=== PATIENT | female | born 1955 ===

== ENCOUNTER → 2019-12-28 14:25 | Outpatient (BNVA) | payer MEDICARE, MEDICAID, SELFPAY | PROVIDERS: PCP Student in an Organized Health Care Education/Training Program; Referring Provider Student in an Organized Health Care Education/Training Program; Visit Provider Orthopaedic Surgery | DX: Z47.1 Aftercare following joint replacement surgery (principal); Z96.651 Presence of right artificial knee joint | CPT/HCPCS: 99213 ==

== ENCOUNTER → 2020-02-28 12:52 | Outpatient (BNVA) | payer MEDICARE, MEDICAID, SELFPAY | PROVIDERS: PCP Nurse Practitioner Family; Visit Provider Nurse Practitioner Gerontology | DX: E11.42 Type 2 diabetes mellitus with diabetic polyneuropathy (principal); E66.09 Other obesity due to excess calories; E53.8 Deficiency of other specified B group vitamins; I10 Essential (primary) hypertension; E03.8 Other specified hypothyroidism; M85.80 Other specified disorders of bone density and structure, unspecified site; Z68.35 Body mass index [BMI] 35.0-35.9, adult | CPT/HCPCS: 82947; 99212 ==

== ENCOUNTER → 2020-02-29 14:48 | Outpatient (BNVA) | payer MEDICARE, MEDICAID, SELFPAY | PROVIDERS: PCP Nurse Practitioner Family; Visit Provider Obstetrics & Gynecology | DX: N95.1 Menopausal and female climacteric states (principal) | CPT/HCPCS: 99202 ==

== ENCOUNTER → 2020-03-14 15:40 | Outpatient (BNVA) | payer MEDICARE, MEDICAID, SELFPAY | PROVIDERS: PCP Nurse Practitioner Family; Visit Provider Obstetrics & Gynecology | DX: N95.1 Menopausal and female climacteric states (principal) | CPT/HCPCS: Q3014 ==

== ENCOUNTER → 2020-03-19 11:20 | Outpatient (BNVA) | payer MEDICARE, MEDICAID, SELFPAY | PROVIDERS: PCP Nurse Practitioner Family; Visit Provider Surgery | DX: L98.9 Disorder of the skin and subcutaneous tissue, unspecified (principal) | CPT/HCPCS: 99202 ==

== ENCOUNTER 2020-03-28 12:49 | Outpatient (REF) | payer MEDICARE, MEDICAID, SELFPAY ==
[2020-03-28 12:09] VITALS: BP 168/84; PULSE 90; RESP 16; TEMP 37; O2SAT 94; BMI 72.2
--- NOTE | 2020-03-28 20:11 | OP_ITS ---
SURGEON: Paco Hernandez MD INDICATIONS: The patient is a 65-year-old female with 2 skin lesions on the left chest wall that she wanted to remove. The one more in the superior was about 1.3 x 0.7 cm, flat and a little keratotic. The other one was just inferior to this, 0.7 x 0.3 cm in size, flat and pigmented. She understood the technique of excision under local anesthesia and she was aware of the risks, benefits, and alternatives. PREOPERATIVE DIAGNOSIS: Skin lesions x2 from the left chest wall. POSTOPERATIVE DIAGNOSIS: Skin lesions x2 from the left chest wall. PROCEDURE PERFORMED: Excision of skin lesions x2 from the left chest wall. ESTIMATED BLOOD LOSS: COMPLICATIONS: ANESTHESIA: ASSISTANTS: SPECIMENS: DESCRIPTION OF PROCEDURE: She was brought to the minor procedure room and placed in right lateral decubitus position. The area of the skin lesions was prepped and draped. Lidocaine 1% was used for local anesthesia. Elliptical incision was made in the skin surrounding the first lesion more superiorly. This incision was made using blade #15, it was carried down to full-thickness skin to excise the entire lesion and was sent as specimen. I closed this incision with interrupted nylon 3-0 sutures. I proceeded to then make elliptical incision around the second more inferior lesion as well using blade #15, it was carried down to full-thickness skin to the subcutaneous fat. It was excised sharply and was sent as specimen. The incision was closed with nylon 3-0 interrupted sutures as well. Dressings were applied. The patient tolerated procedure well. There were no complications noted. There was minimal blood loss. The patient is to be seen in the office for removal of sutures in about 2 to 3 weeks. MD LISSA Sher/ADAM / [phone]
== END 2020-03-28 12:50 | disposition home or self-care (01) ==
LOC: HO.MS 12:49
PROVIDERS: Visit Provider Surgery
PROC: (CPT 11402; principal; 2020-03-28 13:00)
DX: L98.9 Disorder of the skin and subcutaneous tissue, unspecified (principal); L82.1 Other seborrheic keratosis; I10 Essential (primary) hypertension; E11.42 Type 2 diabetes mellitus with diabetic polyneuropathy; E11.65 Type 2 diabetes mellitus with hyperglycemia; Z79.4 Long term (current) use of insulin; Z79.899 Other long term (current) drug therapy
CPT/HCPCS: 11402 ×2; 88305

== ENCOUNTER → 2020-04-09 14:45 | Outpatient (BNVA) | payer MEDICARE, MEDICAID, SELFPAY | PROVIDERS: Visit Provider Surgery | DX: L98.9 Disorder of the skin and subcutaneous tissue, unspecified (principal) | CPT/HCPCS: 99212 ==

== ENCOUNTER → 2020-04-24 11:20 | Outpatient (BNVA) | payer MEDICARE, MEDICAID, SELFPAY | PROVIDERS: Visit Provider Obstetrics & Gynecology | DX: Z76.89 Persons encountering health services in other specified circumstances (principal) | CPT/HCPCS: Q3014 ==

== ENCOUNTER → 2020-07-03 11:27 | Outpatient (BNVA) | payer MEDICARE, MEDICAID, SELFPAY | PROVIDERS: Visit Provider Obstetrics & Gynecology | CPT/HCPCS: Q3014 ==

== ENCOUNTER 2020-07-09 14:12 | Outpatient (REF) | payer MEDICARE, MEDICAID, SELFPAY ==
[2020-07-09 15:47] LABS: Alanine Aminotransferase 19 U/L (0-31); Albumin Level 4.2 g/dL (3.5-5.0); Alkaline Phosphatase 111 U/L (39-117); Anion Gap 13 (12-20); Aspartate Amino Transferase 17 U/L (5-31); Bilirubin Total 0.6 mg/dL (0.0-1.0); Blood Urea Nitrogen 11 mg/dL (9-16); Calcium 9.6 mg/dL (8.4-10.2); Carbon Dioxide 26 mmol/L (22-29); Chloride 105 mmol/L (96-108); Cholesterol 120 mg/dL; Estimated Glomerular Filt Rate > 60; Glucose Fasting 188 mg/dL (60-99); HDL Cholesterol 50 mg/dL; LDL Cholesterol Calculated 51 mg/dl; Potassium 4.4 mmol/L (3.3-5.1); Sodium 140 mmol/L (135-145); Total Protein 7.1 g/dL (6.5-8.0); Triglycerides 97 mg/dL
[2020-07-09 15:58] LABS: Microalbum/Creatinine Ratio Ur 40.2 ug/mg cr
[2020-07-09 16:08] LABS: Free T4 (Free Thyroxine) 1.18 ng/dL (0.71-1.85); Thyroid Stimulating Hormone 0.79 uIU/mL (0.32-4.0)
[2020-07-09 16:12] LABS: Vitamin B12 177 pg/mL (200-900)
== END 2020-07-09 14:13 | disposition home or self-care (01) ==
LOC: HO.LAB 14:12
PROVIDERS: PCP Nurse Practitioner Primary Care; Visit Provider Nurse Practitioner Gerontology
DX: E11.65 Type 2 diabetes mellitus with hyperglycemia (principal); E11.42 Type 2 diabetes mellitus with diabetic polyneuropathy; E03.8 Other specified hypothyroidism; E78.5 Hyperlipidemia, unspecified; E66.09 Other obesity due to excess calories; Z68.35 Body mass index [BMI] 35.0-35.9, adult; I10 Essential (primary) hypertension; Z79.4 Long term (current) use of insulin
CPT/HCPCS: 36415; 80053; 80061; 82043; 82607; 82947; 84439; 84443; 99212

== ENCOUNTER → 2020-08-06 10:29 | Outpatient (BNVA) | payer MEDICARE, MEDICAID, SELFPAY | PROVIDERS: PCP Nurse Practitioner Primary Care; Visit Provider Obstetrics & Gynecology | DX: N95.1 Menopausal and female climacteric states (principal) | CPT/HCPCS: Q3014 ==

== ENCOUNTER → 2020-08-14 11:48 | Outpatient (BNVA) | payer MEDICARE, MEDICAID, SELFPAY | PROVIDERS: PCP Nurse Practitioner Primary Care; Visit Provider Obstetrics & Gynecology | DX: N95.1 Menopausal and female climacteric states (principal) | CPT/HCPCS: Q3014 ==

== ENCOUNTER → 2020-08-22 07:42 | Outpatient (BNVA) | payer MEDICARE, MEDICAID, SELFPAY | PROVIDERS: PCP Nurse Practitioner Primary Care; Visit Provider Obstetrics & Gynecology | DX: N95.1 Menopausal and female climacteric states (principal) | CPT/HCPCS: Q3014 ==

== ENCOUNTER → 2020-08-22 07:42 | Outpatient (BNVA) | payer MEDICARE, MEDICAID, SELFPAY | PROVIDERS: PCP Nurse Practitioner Primary Care; Visit Provider Obstetrics & Gynecology | DX: N95.1 Menopausal and female climacteric states (principal) ==

== ENCOUNTER → 2020-10-08 12:37 | Outpatient (BNVA) | payer MEDICARE, MEDICAID, SELFPAY | PROVIDERS: PCP Nurse Practitioner Primary Care; Visit Provider Nurse Practitioner Gerontology | DX: E11.65 Type 2 diabetes mellitus with hyperglycemia (principal); E11.42 Type 2 diabetes mellitus with diabetic polyneuropathy; E03.8 Other specified hypothyroidism; E78.5 Hyperlipidemia, unspecified; E66.09 Other obesity due to excess calories; I10 Essential (primary) hypertension; Z68.35 Body mass index [BMI] 35.0-35.9, adult; Z79.4 Long term (current) use of insulin | CPT/HCPCS: 82947; Q3014 ==

== ENCOUNTER 2020-11-20 15:16 | Outpatient (REF) | payer MEDICARE, MEDICAID, SELFPAY ==
--- NOTE | ~2020-11-20 | US_ITS ---
EXAMINATION: US THYROID CLINICAL INFORMATION: Other specified hypothyroidism. COMPARISON: None TECHNIQUE: Linear transducer grayscale and color Doppler examination with attention to the region of the thyroid. FINDINGS: SIZE: Measurements of the thyroid lobes and nodules are given in sagittal, anteroposterior and transverse dimensions respectively. Right Thyroid Lobe: 3.5 x 1.1 x 1.5 cm, volume 3.0 mL. Parenchyma: The gland echotexture is heterogeneous. Thyroid vascularity is normal. Left Thyroid Lobe: 3.7 x 2.0 x 1.5 cm, volume 5.8 mL. Parenchyma: The gland echotexture is heterogeneous. Thyroid vascularity is normal. Isthmus: 0.4 cm in maximum AP dimension. Estimated total number of nodules greater than or equal to 1 cm: 0. 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 Location: Right mid. Size: 0.78 x 0.85 x 0.67 cm, volume 0.23 mL. Nodule characteristics: Composition: Solid/almost completely solid (2). Echogenicity: Isoechoic (1). Shape: Taller than wide (3). Margins: Smooth (0). Echogenic Foci: None (0). ACR TI-RADS total points: 6 ACR TI-RADS category: 4 2. Location: Right mid. Size: 0.56 x 0.4 x 0.45 cm, volume 0.05 mL. Nodule characteristics: Composition: Solid/almost completely solid (2). Echogenicity: Isoechoic (1). Shape: Not taller than wide (0). Margins: Smooth (0). Echogenic Foci: None (0). ACR TI-RADS total points: 3 ACR TI-RADS category: 3 NODES: No lymphadenopathy is seen in the tissue surrounding the thyroid gland. US/US thyroid IMPRESSION: There are bilateral normal-appearing cervical lymph nodes. ACR TI-RADS RECOMMENDATION REFERENCE: Small heterogeneous slightly hypervascular thyroid gland. Suspicious-appearing right thyroid nodule. Ultrasound follow-up in one, 2, 3 and 5 years recommended. * TR1 (0 point) and TR 2 (2 points): No FNA or follow up * TR3 (3 points): FNA if more than or equal to 2.5 cm in maximum dimension, followup ultrasound in 1, 3 and 5 years if 1.5 to 2.4 cm in maximum dimension. * TR4 (4-6 points): FNA if more than or equal to 1.5 cm in maximum dimension, followup ultrasound in 1, 2, 3 and 5 years if 1 to 1.4 cm in maximum dimension. * TR5 (more than or equal to 7 points): FNA if more than or equal to 1 cm in maximum dimension, followup ultrasound every year for 5 years if 0.5 to 0.9 cm in maximum dimension. * TR3, TR4 or TR5 nodules that are below the size threshold for follow up receive no follow up.
[2020-11-20 17:39] LABS: Thyroid Stimulating Hormone 0.98 uIU/mL (0.32-4.0)
== END 2020-11-20 15:17 | disposition home or self-care (01) ==
LOC: HO.US 15:16
PROVIDERS: Visit Provider Nurse Practitioner Gerontology
DX: E03.8 Other specified hypothyroidism (principal)
CPT/HCPCS: 36415; 76536; 84439; 84443

== ENCOUNTER 2021-02-10 22:50 | Emergency (ER) | payer MEDICARE, MEDICAID, SELFPAY ==
--- NOTE | ~2021-02-10 | XR_ITS ---
EXAMINATION: XR CHEST CLINICAL INFORMATION: Chest pain COMPARISON: 11/27/2017 TECHNIQUE: Frontal view of the chest was obtained. FINDINGS: Lung volumes are symmetric. No focal consolidation is seen. No evidence of pneumothorax, pleural effusion, or pulmonary edema. The cardiomediastinal contour is unremarkable. Degenerative changes are noted in the spine. XR/XR chest 1V IMPRESSION: No acute cardiopulmonary findings.
--- NOTE | 2021-02-10 22:58 | ECG_ITS ---
Test Reason : CHEST PAIN Blood Pressure : / mmHG Vent. Rate : 072 BPM Atrial Rate : 072 BPM P-R Int : 138 ms QRS Dur : 094 ms QT Int : 394 ms P-R-T Axes : 042 026 042 degrees QTc Int : 431 ms Normal sinus rhythm Normal ECG When compared with ECG of 29-JUN-2018 14:14, No significant change was found Referred By: Chloé Pitts Electronically Signed By:ARJUN SHAIKH MD
[2021-02-10 23:03] VITALS: BP 201/99; BP 220/105; PULSE 79; PULSE 90; RESP 18; TEMP 37.4; O2SAT 96; BMI 34.9
--- NOTE | 2021-02-10 23:12 | ED.CHESTPAIN ---
HPI - Chest Pain General Chief Complaint: Chest Pain Stated Complaint: chest pain/htn Time Seen by Provider: 02/10/21 22:58 Source: patient Mode of arrival: ambulatory History of Present Illness HPI narrative: Patient's history of diabetes hypertension hyperlipidemia obese with anxiety and recurrent chest pain and palpitation today around 17:00 patient will cooking notes palpitations history similar that in the past when she gets anxiety attacks on arrival patient's blood pressure was 201/99 pulse rate was 79. P denies any cough no fever no chills patient received aspirin and nitro without significant relief patient more local on the right side of chest also patient complaining of dizziness with this history of same in the past associated with nausea patient has not taken her evening dose of clonidine Related Data Home Medications Medication Instructions Recorded Confirmed aspirin 325 mg tablet,delayed 325 mg PO DAILY 02/28/20 10/08/20 release diclofenac sodium 75 mg 75 mg PO BID 02/28/20 10/08/20 tablet,delayed release mecobalamin (vitamin B12) 1,000 1,000 mcg PO DAILY 02/28/20 10/08/20 mcg chewable tablet metformin 500 mg tablet,extended See Rx Instructions PO BID 02/28/20 10/08/20 release 24 hr hydrochlorothiazide 50 mg tablet 50 mg PO DAILY 02/29/20 10/08/20 alcohol swabs pad TOPICAL 03/19/20 10/08/20 blood sugar diagnostic #10 ea 03/19/20 10/08/20 fluticasone propionate 110 0 mcg INHALATION 03/19/20 10/08/20 mcg/actuation HFA aerosol inhaler furosemide 20 mg tablet 20 mg PO QAM 03/19/20 10/08/20 hydroxyzine HCl 50 mg tablet 50 mg PO Q8H PRN 03/19/20 10/08/20 lisinopril 40 mg tablet 40 mg PO DAILY 03/19/20 10/08/20 multivitamin-ferrous 1 tab PO QAM 03/19/20 10/08/20 fumarate-folic acid 18 mg-400 mcg tablet rosuvastatin 20 mg tablet 20 mg PO BEDTIME 03/19/20 10/08/20 tramadol 50 mg tablet 50 mg PO TID PRN 03/19/20 10/08/20 metoprolol succinate 200 mg 200 mg PO DAILY 07/09/20 10/08/20 tablet,extended release 24 hr pantoprazole 40 mg tablet,delayed 40 mg PO QAM 07/09/20 10/08/20 release trazodone 150 mg tablet 150 mg PO tab 07/09/20 10/08/20 venlafaxine 150 mg 150 mg PO DAILY 07/09/20 10/08/20 capsule,extended release 24 hr cholecalciferol (vitamin D3) 50 50 mcg PO QAM 10/08/20 10/08/20 mcg (2,000 unit) tablet Previous Rx's Medication Instructions Recorded pen needle, diabetic 32 gauge x 1 ea SUBCUT DAILY 90 Days #90 ea 03/29/20 (BD Ultra-Fine Sasha Pen Needle) clonidine HCl 0.1 mg tablet 0.2 mg PO BEDTIME #60 tab 07/03/20 dexlansoprazole 30 mg 30 mg PO DAILY #30 cap 07/03/20 capsule,biphase delayed release acetaminophen 650 mg 650 mg PO Q8H PRN #90 tab 09/11/20 tablet,extended release empagliflozin 10 mg tablet 10 mg PO QAM #30 tab 10/08/20 (Jardiance) dulaglutide 4.5 mg/0.5 mL 4.5 mg (0.5 mL) SUBCUT QWEEK #2 ml 11/09/20 subcutaneous pen injector (Trulicity) insulin glargine 100 unit/mL (3 34 unit (0.34 mL) SUBCUT QPM #15 ml 11/23/20 mL) subcutaneous pen (Lantus Solostar U-100 Insulin) levothyroxine 75 mcg tablet 75 mcg PO QAM #30 tab 12/27/20 gabapentin 100 mg capsule 300 mg PO BEDTIME #90 cap 02/04/21 meclizine 25 mg tablet 25 mg PO DAILY PRN #20 tab 02/11/21 Allergies Allergy/AdvReac Type Severity Reaction Status Date / Time No Known Allergies Allergy Verified 10/08/20 13:24 [No Known Allergies*] Review of Systems Review of Systems: Yes all other systems are reviewed and are negative [facility] Past Medical History Medical History BMI 35.0-35.9,adult Cervical cancer Constipation Depression with anxiety Diabetes mellitus with hyperglycemia Essential hypertension Fibromyalgia GERD (gastroesophageal reflux disease) Meir's disease Hyperlipidemia LDL goal <100 Osteoarthritis of left knee Osteopenia Other obesity due to excess calories Other specified acquired hypothyroidism Skin lesion of chest wall Thyroid nodule Type 2 diabetes mellitus with diabetic polyneuropathy Vitamin B12 deficiency Surgical History History of arthroplasty of right knee History of bilateral carpal tunnel release History of esophagogastroduodenoscopy (EGD) Hx of arthroscopy of left knee Hx of bilateral oophorectomy Hx of colonoscopy Hx of foot surgery Hx of hysterectomy Family History Family History Father CVD (cardiovascular disease) Diabetes mellitus Stroke Mother Stroke Diabetes mellitus Breast cancer Hyperthyroidism Social History Social History Household Members: None Alcohol intake: never Patient Tobacco Use Status: Never used Tobacco Advance Directives: No 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al status: unemployed 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: Right Handed Physical Exam Vital Signs: Vital Signs: Last Vital Signs Temp 99.3 F 02/10/21 23:03 Pulse 72 02/10/21 23:55 Resp 18 02/10/21 23:03 BP 191/91 H 02/10/21 23:55 Pulse Ox 96 02/10/21 23:03 Body Mass Index 34.9 Appearance: Alert. Oriented X3. No acute distress. ENT: Pharynx normal. Oral Mucosa moist Neck: Normal inspection. Neck supple. CVS: Normal heart rate and rhythm. Pulses normal. Respiratory: No respiratory distress. Equal air entry bilateral, no wheezing/rales/rhonchi right chest wall tenderness Abdomen: Soft and nontender. Bowel sounds are present, no mass palpable, no CVA tenderness Skin: Skin warm and dry. Normal skin color. Normal skin turgor. Extremities: No lower extremity edema. No calf tenderness Neuro: Oriented X 3. No motor deficit. MDM - Chest Pain MDM Narrative Medical decision making narrative: Patient feeling much better now blood pressure improved will discharge patient home on meclizine S to follow with her PCP Lab Data Attestation: I reviewed the patient's lab results. Result diagrams: 02/10/21 23:37 02/10/21 23:36 Labs: Lab Results 02/10/21 02/10/21 02/10/21 Range/Units 23:34 23:36 23:37 WBC 12.3 H (4.8-10.8) X10*3/uL RBC 5.64 H (4.20-5.50) X10*6/uL Hgb 14.4 (12.0-16.0) g/dl Hct 44.7 (37.0-47.0) % MCV 79.3 L (80.0-98.0) fL MCH 25.5 L (27.0-33.0) pg MCHC 32.2 (31.0-35.0) g/dl RDW 13.2 (11.0-16.0) % Plt Count 283 (160-400) X10*3/uL MPV 9.6 (9.4-12.3) fL Immature Gran % (Auto) 0.4 (0.0-0.4) % Neut % (Auto) 61.8 (45-73) % Lymph % (Auto) 27.4 (20-40) % [place] % (Auto) 8.5 (2-11) % Eos % (Auto) 1.1 (0-4) % Baso % (Auto) 0.8 (0-2) % Lymph # (Auto) 3.4 (1.2-4.9) X10*3/uL [place] # (Auto) 1.1 (0.1-1.2) X10*3/uL Eos # (Auto) 0.1 (0.0-0.4) X10*3/uL Baso # (Auto) 0.1 (0.0-0.2) X10*3/uL Abs Immat Gran (auto) 0.05 H (0.00-0.03) X10*3/uL Absolute Neuts (auto) 7.6 (2.0-8.3) x10*3/uL Absolute Nucleated RBC 0.000 (0.0-0.012) X10*3/uL Nucleated RBC % (auto) 0.0 (0.0-0.2) /100WBC Sodium 140 (135-145) mmol/L Potassium 4.0 (3.3-5.1) mmol/L Chloride 105 (96-108) mmol/L Carbon Dioxide 26 (22-29) mmol/L Anion Gap 13 (12-20) BUN 13 (9-16) mg/dL Creatinine 1.09 (0.5-1.4) mg/dL Estim Creat Clear Calc 57.9 Estimated GFR 50 Random Glucose 170 H (60-115) mg/dL Calcium 9.7 (8.4-10.2) mg/dL Total Bilirubin 0.5 (0.0-1.0) mg/dL AST 19 (5-31) U/L ALT 22 (0-31) U/L Alkaline Phosphatase 111 (39-117) U/L Troponin I High Sens (<3.5-17.0) ng/L B-Natriuretic Peptide (<100) pg/mL Total Protein 7.0 (6.5-8.0) g/dL Albumin 4.0 (3.5-5.0) g/dL Urine Color Urine Appearance Urine pH (5.0-8.0) Ur Specific [employer] (1.005-1.025) Urine Protein (NEG-TRACE) MG/DL Urine Glucose (UA) (NEG) MG/DL Urine Ketones (NEG) MG/DL Urine Blood (NEG) Urine Nitrite (NEG) Ur Leukocyte Esterase (NEG) Urine RBC (0) /HPF Urine WBC (0-4) /HPF Ur Squamous Epith Cells /LPF Urine Bacteria /LPF Urine Mucus /LPF COVID-19 (MANINDER) Negative (Negative) COVID-19 Clin Com See Note 02/10/21 02/10/21 Range/Units 23:37 23:42 WBC (4.8-10.8) X10*3/uL RBC (4.20-5.50) X10*6/uL Hgb (12.0-16.0) g/dl Hct (37.0-47.0) % MCV (80.0-98.0) fL MCH (27.0-33.0) pg MCHC (31.0-35.0) g/dl RDW (11.0-16.0) % Plt Count (160-400) X10*3/uL MPV (9.4-12.3) fL Immature Gran % (Auto) (0.0-0.4) % Neut % (Auto) (45-73) % Lymph % (Auto) (20-40) % [place] % (Auto) (2-11) % Eos % (Auto) (0-4) % Baso % (Auto) (0-2) % Lymph # (Auto) (1.2-4.9) X10*3/uL [place] # (Auto) (0.1-1.2) X10*3/uL Eos # (Auto) (0.0-0.4) X10*3/uL Baso # (Auto) (0.0-0.2) X10*3/uL Abs Immat Gran (auto) (0.00-0.03) X10*3/uL Absolute Neuts (auto) (2.0-8.3) x10*3/uL Absolute Nucleated RBC (0.0-0.012) X10*3/uL Nucleated RBC % (auto) (0.0-0.2) /100WBC Sodium (135-145) mmol/L Potassium (3.3-5.1) mmol/L Chloride (96-108) mmol/L Carbon Dioxide (22-29) mmol/L Anion Gap (12-20) BUN (9-16) mg/dL Creatinine (0.5-1.4) mg/dL Estim Creat Clear Calc Estimated GFR Random Glucose (60-115) mg/dL Calcium (8.4-10.2) mg/dL Total Bilirubin (0.0-1.0) mg/dL AST (5-31) U/L ALT (0-31) U/L Alkaline Phosphatase (39-117) U/L Troponin I High Sens 7.4 (<3.5-17.0) ng/L B-Natriuretic Peptide 14 (<100) pg/mL Total Protein (6.5-8.0) g/dL Albumin (3.5-5.0) g/dL Urine Color STRAW Urine Appearance HAZY Urine pH 7.5 (5.0-8.0) Ur Specific [place] [employer] 1.015 (1.005-1.025) Urine Protein 1+ H (NEG-TRACE) MG/DL Urine Glucose (UA) 100 H (NEG) MG/DL Urine Ketones NEG (NEG) MG/DL Urine Blood NEG (NEG) Urine Nitrite NEG (NEG) Ur Leukocyte Esterase NEG (NEG) Urine RBC 0 (0) /HPF Urine WBC 0-2 (0-4) /HPF Ur Squamous Epith Cells 2+ /LPF Urine Bacteria TRACE /LPF Urine Mucus TRACE /LPF COVID-19 (MANINDER) (Negative) COVID-19 Clin Com ECG Data ECG #1: Attestation: I personally reviewed and interpreted this ECG as follows: Interpretation: Normal sinus rhythm with heart rate 72 beats per minute now intervals normal axis no acute ST wave changes impression normal EKG Discharge Plan Discharge Clinical Impression: Chest pain Qualifiers: Chest pain type: precordial pain Qualified Code(s): R07.2 - Precordial pain Benign paroxysmal positional vertigo Qualifiers: Laterality: right Qualified Code(s): H81.11 - Benign paroxysmal vertigo, right ear Patient Disposition: Home, Self-Care Instructions: Chest Pain (ED), Benign Paroxysmal Positional Vertigo (ED) Additional Instructions: Take blood pressure medicine daily on time Medication for dizziness as prescribed Follow-up with your PCP as needed if not better Continue your tramadol for pain Prescriptions: New meclizine 25 mg tablet 25 mg PO DAILY PRN (Reason: dizziness) Qty: 20 RF: 0 No Action pen needle, diabetic [BD Ultra-Fine Sasha Pen Needle] 32 gauge x 5/32 needle 1 ea subcut DAILY 90 Days Qty: 90 RF: 3 acetaminophen 650 mg tablet extended release 650 mg PO Q8H PRN (Reason: pain) Qty: 90 RF: 3 Trulicity 4.5 mg/0.5 mL pen injector 4.5 mg subcut QWEEK Qty: 2 RF: 4 Lantus Solostar U-100 Insulin 100 unit/mL (3 mL) insulin pen 34 unit subcut QPM Qty: 15 RF: 4 levothyroxine 75 mcg tablet 75 mcg PO QAM Qty: 30 RF: 1 gabapentin 100 mg capsule 300 mg PO BEDTIME Qty: 90 RF: 0 hydrochlorothiazide 50 mg tablet 50 mg PO DAILY RF: 0 tramadol 50 mg tablet 50 mg PO TID PRNRF: 0 rosuvastatin 20 mg tablet 20 mg PO BEDTIME RF: 0 Flovent HFA 110 mcg/actuation HFA aerosol inhaler 0 mcg inhalation RF: 0 lisinopril 40 mg tablet 40 mg PO DAILY RF: 0 furosemide 20 mg tablet 20 mg PO QAM RF: 0 Certavite-Antioxidant 18-400 mg-mcg tablet 1 tab PO QAM RF: 0 alcohol swabs Pads, Medicated topical RF: 0 (DME) FreeStyle Lite Strips Strip See Rx Instructions ea Not Applicable BID Qty: 10 RF: 0 hydroxyzine HCl 50 mg tablet 50 mg PO Q8H PRN (Reason: anxiety) RF: 0 trazodone 150 mg tablet 150 mg PO RF: 0 clonidine HCl 0.1 mg tablet 0.2 mg PO BEDTIME Qty: 60 RF: 11 dexlansoprazole 30 mg capsule,biphase delayed releas 30 mg PO DAILY Qty: 30 RF: 3 cholecalciferol (vitamin D3) 50 mcg (2,000 unit) tablet 50 mcg PO QAM RF: 0 Jardiance 10 mg tablet 10 mg PO QAM Qty: 30 RF: 4 mecobalamin (vitamin B12) 1,000 mcg tablet,chewable 1,000 mcg PO DAILY RF: 0 diclofenac sodium 75 mg tablet,delayed release (DR/EC) 75 mg PO BID RF: 0 aspirin 325 mg tablet,delayed release (DR/EC) 325 mg PO DAILY RF: 0 metformin 500 mg tablet extended release 24 hr See Rx Instructions PO BID RF: 0 pantoprazole 40 mg tablet,delayed release (DR/EC) 40 mg PO QAM RF: 0 venlafaxine 150 mg capsule,extended release 24hr 150 mg PO DAILY RF: 0 metoprolol succinate 200 mg tablet extended release 24 hr 200 mg PO DAILY RF: 0
[2021-02-10 23:44] LABS: Basophils Absolute Auto 0.1 X10*3/uL (0.0-0.2); Basophils Percent Auto 0.8 % (0-2); Eosinophils Absolute Auto 0.1 X10*3/uL (0.0-0.4); Eosinophils Percent Auto 1.1 % (0-4); Hematocrit 44.7 % (37.0-47.0); Hemoglobin 14.4 g/dl (12.0-16.0); Imm Gran Abs Auto 0.05 X10*3/uL (0.00-0.03); Imm Gran Pct Auto 0.4 % (0.0-0.4); Lymphocytes Absolute Auto 3.4 X10*3/uL (1.2-4.9); Lymphocytes Percent Auto 27.4 % (20-40); MANUAL DIFF FLAG NO; Mean Corpuscular HGB Conc 32.2 g/dl (31.0-35.0); Mean Corpuscular Hemoglobin 25.5 pg (27.0-33.0); Mean Corpuscular Volume 79.3 fL (80.0-98.0); Mean Platelet Volume 9.6 fL (9.4-12.3); Monocytes Absolute Auto 1.1 X10*3/uL (0.1-1.2); Monocytes Percent Auto 8.5 % (2-11); Neutrophils Absolute Auto 7.6 x10*3/uL (2.0-8.3); Neutrophils Percent Auto 61.8 % (45-73); Platelet Count 283 X10*3/uL (160-400); Red Blood Count 5.64 X10*6/uL (4.20-5.50); Red Cell Distribution Width 13.2 % (11.0-16.0); White Blood Count 12.3 X10*3/uL (4.8-10.8)
[2021-02-10 23:49] LABS: Appearance Urine HAZY; Color Urine STRAW; Glucose Urine UA 100 MG/DL (NEG); Leukocyte Esterase Urine NEG (NEG); Nitrite Urine NEG (NEG); PH 7.5 (5.0-8.0); Specific Gravity - Urine 1.015 (1.005-1.025); UACC Culture Trigger NO; Urine Blood NEG (NEG); Urine Ketones NEG (NEG); Urine Protein 1+ MG/DL (NEG-TRACE)
[2021-02-10 23:55] VITALS: BP 191/91; PULSE 72
[2021-02-10 23:55] LABS: Bacteria Urine TRACE /LPF; Mucus Urine TRACE /LPF; RBC Urine 0 /HPF (0); Squamous Epithelial Cell Urine 2+ /LPF; WBC Urine 0-2 /HPF (0-4)
[2021-02-10] MEDS: cloNIDine HCL 0.2 MG TABLET PO (23:55)
[2021-02-10] MEDS: ondansetron HCL 4 MG/2 ML VIAL IVPUSH (23:55)
[2021-02-10 23:57] LABS: COVID-19 Test Negative (Negative); IDNOW Serial# 9DD0AD1C
[2021-02-11 00:09] LABS: Alanine Aminotransferase 22 U/L (0-31); Alkaline Phosphatase 111 U/L (39-117); Anion Gap 13 (12-20); Aspartate Amino Transferase 19 U/L (5-31); Bilirubin Total 0.5 mg/dL (0.0-1.0); Blood Urea Nitrogen 13 mg/dL (9-16); Calcium 9.7 mg/dL (8.4-10.2); Carbon Dioxide 26 mmol/L (22-29); Chloride 105 mmol/L (96-108); Creatinine Clr Calc Pharmacy 57.9; Estimated Glomerular Filt Rate 50; Glucose Random 170 mg/dL (60-115); Sodium 140 mmol/L (135-145)
[2021-02-11 00:12] LABS: B Type Natriuretic Peptide 14 pg/mL (<100); Troponin-I High Sensitivity 7.4 ng/L (<3.5-17.0)
[2021-02-11] MEDS: Ketorolac Tromethamine 15 MG/ML VIAL 30 MG IVPUSH (00:15)
[2021-02-11] MEDS: Meclizine HCl 25 MG TABLET 50 MG PO (00:41)
== END 2021-02-11 01:13 | disposition home or self-care (01) ==
PROVIDERS: Student in an Organized Health Care Education/Training Program; Emergency Provider Internal Medicine
DX: R07.2 Precordial pain (principal); H81.11 Benign paroxysmal vertigo, right ear; Z20.822 Contact with and (suspected) exposure to COVID-19; R00.2 Palpitations; E11.9 Type 2 diabetes mellitus without complications; I10 Essential (primary) hypertension; E78.5 Hyperlipidemia, unspecified; F41.9 Anxiety disorder, unspecified; Z79.02 Long term (current) use of antithrombotics/antiplatelets; Z79.899 Other long term (current) drug therapy; Z79.82 Long term (current) use of aspirin; Z79.4 Long term (current) use of insulin
CPT/HCPCS: 36415; 71045; 80053; 81001; 83880; 84484; 85025; 87635; 93005; 96374; 96375; 99284; J1885; J2405

== ENCOUNTER 2021-03-01 08:36 | Outpatient (REF) | payer MEDICARE, MEDICAID, SELFPAY ==
--- NOTE | 2021-03-01 09:23 | P.BOP_ITS ---
Brief Operative Note Date of Service: 03/01/21 Pre-op diagnosis: Multinodular Thyroid Procedure: This is doctor Yi Massey. This is an ultrasound-guided fine-needle aspiration report. Date of Examination: 03/01/2021 Indication: Multinodular Thyroid Porcedure: Procedure was explained to the patient. Alternatives, the risk and benefits were discussed. Written consent was obtained. A time-out was also obtained. After sterile preparation, fine-needle aspiration of a right mid pole 1.2 cm thyroid nodule was performed using direct ultrasound guidance to confirm accurate needle placement. Three aspirations were made using 27 gauge needles. Samples were submitted for cytology. One pass was dedicated for [employer] Gene sequencing warp preparer testing. The patient tolerated the procedure well. Aftercare instructions were provided. Impression: Uncomplicated fine needle aspiration biopsy of a right mid pole 1.2 cm thyroid nodule under ultrasound guidance. Surgeon: Yi Massey, DO Was an Poultry Picking Machine Tender used for this Procedure?: No Estimated blood loss (mL): 0
[2021-03-01] MEDS: Lidocaine HCl 1 % MPF 5 ML VIAL 2 ML SUBCUT (12:00)
== END 2021-03-01 08:37 | disposition home or self-care (01) ==
LOC: HO.US 08:36
PROVIDERS: Visit Provider Internal Medicine
DX: E04.1 Nontoxic single thyroid nodule (principal)
CPT/HCPCS: 10005; 88172; 88173; 88177

== ENCOUNTER → 2021-03-11 08:05 | Outpatient (BNVA) | payer MEDICARE, MEDICAID, SELFPAY | PROVIDERS: Visit Provider Internal Medicine | DX: E04.2 Nontoxic multinodular goiter (principal); E55.9 Vitamin D deficiency, unspecified | CPT/HCPCS: Q3014 ==

== ENCOUNTER 2021-04-10 14:25 | Outpatient (REF) | payer MEDICARE, MEDICAID, SELFPAY ==
[2021-04-10 15:24] LABS: Phosphorus 3.3 mg/dL (2.7-4.5)
[2021-04-10 15:47] LABS: Free T4 (Free Thyroxine) 1.01 ng/dL (0.71-1.85); Vitamin D 25-OH Total 31.8 ng/mL (>30)
[2021-04-11 14:16] LABS: Calcium (PTHI) 9.1 mg/dL (8.6-10.4); PTHI 113 pg/mL (14-64)
== END 2021-04-10 14:26 | disposition home or self-care (01) ==
LOC: HO.LAB 14:25
PROVIDERS: Internal Medicine; Visit Provider Internal Medicine Medical Oncology
DX: E04.2 Nontoxic multinodular goiter (principal)
CPT/HCPCS: 36415; 82306; 83970; 84100; 84439; 84443

== ENCOUNTER → 2021-04-17 11:05 | Outpatient (BNVA) | payer OTHER, SELFPAY | PROVIDERS: Visit Provider Internal Medicine | DX: E04.2 Nontoxic multinodular goiter (principal); E55.9 Vitamin D deficiency, unspecified; E21.3 Hyperparathyroidism, unspecified | CPT/HCPCS: Q3014 ==

== ENCOUNTER 2021-05-14 14:27 | Outpatient (REF) | payer MEDICARE, SELFPAY ==
--- NOTE | ~2021-05-14 | MM_ITS ---
EXAMINATION: BONE DENSITOMETRY CLINICAL INDICATION: Hyperparathyroidism, unspecified. COMPARISON: Previous BD dated 06/17/2011 and baseline BD dated 05/24/2009. This is the patient's baseline examination for the forearm radius 33%. TECHNIQUE: Using a Go[employer]stant DXA System (software version: 13.1) manufactured by [employer], dual-energy x-ray absorptiometry was performed of the lumbar spine, left hip, and left forearm radius 33%. The images are of good technical quality. Summary results are attached. FINDINGS: AP SPINE L1-L4: Current: BMD 0.978 g/cm2, Z-score -0.9, T-score -1.7, osteopenia, 0.0% no change from previous, 4.4% increase from baseline (<5% change is not significant). Prior: BMD 0.978 g/cm2. Baseline: BMD 0.937 g/cm2. LEFT FEMUR, NECK: Current: BMD 0.850 g/cm2, Z-score -0.4, T-score -1.4, osteopenia. Prior: BMD 0.916 g/cm2. Baseline: BMD 0.971 g/cm2. LEFT FEMUR, TOTAL: Current: BMD 0.993 g/cm2, Z-score 0.6, T-score -0.1, normal, 2.3% decrease from previous, 8.8% decrease from baseline (<5% change is not significant). Prior: BMD 1.016 g/cm2. Baseline: BMD 1.089 g/cm2. LEFT FOREARM RADIUS 33%: BMD 0.809 g/cm2, Z-score 0.8, T-score -0.8, normal. Prior: Not previously measured. IDENTIFIED RISK FACTORS: Rheumatoid arthritis, hyperparathyroidism. Early menopause, secondary osteoporosis, hysterectomy, bilateral oophorectomy. HISTORY OF FRACTURE: None listed. MEDICATIONS: Calcium supplements or multivitamin, vitamin D. MM/XR DEXA appendicular skeleton IMPRESSION: 1. DIAGNOSIS: Osteopenia based on the lowest T-score value of -1.7 in the lumbar spine applying World Health Organization criteria. 2. 10-YEAR FRACTURE RISK PREDICTION, FRAX: Major osteoporotic fracture (clinical spine, forearm, hip or shoulder) 6.1%. Hip fracture 0.7%. 3. Treatment Recommendations: NOF guidelines recommend consideration for treatment in postmenopausal women and men age 50 and older presenting with the following: -A hip or vertebral (clinical or morphometric) fracture. -T-score less than or equal to -2.5 at the femoral neck or spine after appropriate evaluation to exclude secondary causes. -Low bone mass at the hip or spine and a 10-year fracture probability by FRAX of greater than or equal to 3% for hip fracture or greater than or equal to 20% for major osteoporotic fracture based on the [place] adapted WHO algorithm. 4. Other Recommendations: All treatment decisions require clinical judgment and consideration of individual patient factors, including patient preferences, comorbidities, previous drug use, risk factors not captured in the FRAX model (e.g. frailty, falls, vitamin D deficiency, increased bone turnover, interval significant decline in bone density) and possible under or overestimation of fracture risk by FRAX. Additional medical evaluation for secondary cause of low bone mineral density may be appropriate. FUTURE SCAN RECOMMENDATION: People with diagnosed cases of osteoporosis or at high risk for fracture should have regular bone mineral density tests. For patients eligible for Medicare, routine testing is allowed once every 2 years. The testing frequency can be increased to one year for patients who have rapidly progressing disease, those who are receiving or discontinuing medical therapy to restore bone mass, or have additional risk factors.
== END 2021-05-14 14:28 | disposition home or self-care (01) ==
LOC: HO.MAMMO 14:27
PROVIDERS: Visit Provider Internal Medicine
DX: Z13.820 Encounter for screening for osteoporosis (principal); E21.3 Hyperparathyroidism, unspecified; M85.80 Other specified disorders of bone density and structure, unspecified site; Z78.0 Asymptomatic menopausal state; Z79.899 Other long term (current) drug therapy
CPT/HCPCS: 77081

== ENCOUNTER 2021-05-16 15:36 | Outpatient (REF) | payer MEDICARE, SELFPAY ==
[2021-05-16 15:43] LABS: Total Volume 24 Hour Urine 1600 mL
[2021-05-16 16:07] LABS: Creatinine, 24Hr Urine 1.3 G/Day (1.0-2.0); Creatinine, mg/dL 83.42
[2021-05-20 17:01] LABS: Calcium, 24 Hr Urine 120 mg/24 h; Calcium/Creatinine Ratio 88 mg/g creat (30-275); Creatinine 24Hr Urine 1.36 g/24 h (0.50-2.15)
== END 2021-05-16 15:37 | disposition home or self-care (01) ==
LOC: HO.LNP 15:36
PROVIDERS: Visit Provider Internal Medicine
DX: E21.3 Hyperparathyroidism, unspecified (principal)
CPT/HCPCS: 82340; 82570

== ENCOUNTER → 2021-05-24 13:50 | Outpatient (BNVA) | payer OTHER, SELFPAY | PROVIDERS: PCP Nurse Practitioner Primary Care; Visit Provider Advanced Practice Midwife | DX: Z13.89 Encounter for screening for other disorder (principal) ==

== ENCOUNTER 2021-06-05 11:56 | Outpatient (REF) | payer OTHER, SELFPAY ==
[2021-06-05 14:02] LABS: Alanine Aminotransferase 24 U/L (0-31); Albumin Level 3.9 g/dL (3.5-5.0); Alkaline Phosphatase 116 U/L (39-117); Anion Gap 15 (12-20); Aspartate Amino Transferase 26 U/L (5-31); Bilirubin Total 0.8 mg/dL (0.0-1.0); Blood Urea Nitrogen 8 mg/dL (9-16); Calcium 9.5 mg/dL (8.4-10.2); Carbon Dioxide 24 mmol/L (22-29); Chloride 103 mmol/L (96-108); Estimated Glomerular Filt Rate 56; Free T4 (Free Thyroxine) 1.22 ng/dL (0.71-1.85); Glucose Random 186 mg/dL (60-115); Phosphorus 3.5 mg/dL (2.7-4.5); Potassium 4.7 mmol/L (3.3-5.1); Sodium 137 mmol/L (135-145); Thyroid Stimulating Hormone 3.81 uIU/mL (0.32-4.0); Total Protein 7.3 g/dL (6.5-8.0)
[2021-06-06 15:32] LABS: Vitamin D 25-OH Total 28.3 ng/mL (>30)
[2021-06-06 16:26] LABS: Calcium (PTHI) 9.6 mg/dL (8.6-10.4); PTHI 95 pg/mL (16-77)
== END 2021-06-05 11:57 | disposition home or self-care (01) ==
LOC: HO.LAB 11:56
PROVIDERS: PCP Nurse Practitioner Primary Care; Visit Provider Internal Medicine
DX: E04.2 Nontoxic multinodular goiter (principal); E21.3 Hyperparathyroidism, unspecified; E55.9 Vitamin D deficiency, unspecified; R60.0 Localized edema
CPT/HCPCS: 36415; 80053; 82306; 83970; 84100; 84439; 84443; 99212

== ENCOUNTER 2021-06-05 13:14 | Emergency (ER) | payer OTHER, SELFPAY ==
--- NOTE | ~2021-06-05 | US_ITS ---
EXAMINATION: US VENOUS ULTRASOUND WITH DOPPLER LOWER EXTREMITY, LEFT CLINICAL INFORMATION: Pain and swelling COMPARISON: None TECHNIQUE: Ultrasound of the deep veins is performed from the hip to the calf with compression sonography and color and pulse Doppler assessment. Spectral analysis with color-flow imaging is performed. FINDINGS: There is normal venous compression and respiratory variation and augmented flow. The visualized common femoral vein, superficial femoral vein, profunda femoral vein, popliteal vein, and the trifurcation region shows no evidence of deep venous thrombosis. There is no significant popliteal fossa cyst. If the patient's symptoms persist, followup ultrasound in 5 days 7 days might be of value to exclude proximal propagation from a non-visualized calf vein. US/US venous duplex LE LT IMPRESSION: No DVT demonstrated in the left lower extremity.
--- NOTE | ~2021-06-05 | XR_ITS ---
EXAMINATION: XR FOOT, LEFT CLINICAL INFORMATION: Pain COMPARISON: Previous x-ray August 2006 TECHNIQUE: AP, lateral, and oblique views of the left foot. FINDINGS: There is an old healed fracture of the distal fifth metatarsal shaft. No acute fracture or dislocation is seen. The joint spaces are normal. There are calcaneal spurs. XR/XR foot LT min 3V IMPRESSION: No acute fracture or dislocation. Calcaneal spurs.
[2021-06-05 13:29] VITALS: BP 157/85; PULSE 71; RESP 18; TEMP 36.2; O2SAT 97; BMI 35.2
--- NOTE | 2021-06-05 13:56 | ED.EXTPRO ---
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 Patient reports pain in entire leg but mainly in the left foot. No redness, warmth, fevers, chills. Seen at endocrine today for appt and reported symptoms so referred in to the ER for further evaluation. Patient reports she has some tingling over the bottom aspect of the foot. No weakness or sensation loss. She does have diabetic neuropathy and takes gabapentin. Also takes APAP, tramadol prn for chronic pain at home. Related Data Home Medications Medication Instructions Recorded Confirmed aspirin 325 mg tablet,delayed 325 mg PO DAILY 02/28/20 06/05/21 release diclofenac sodium 75 mg 75 mg PO BID 02/28/20 06/05/21 tablet,delayed release mecobalamin (vitamin B12) 1,000 1,000 mcg PO DAILY 02/28/20 06/05/21 mcg chewable tablet metformin 500 mg tablet,extended See Rx Instructions PO BID 02/28/20 06/05/21 release 24 hr hydrochlorothiazide 50 mg tablet 50 mg PO DAILY 02/29/20 06/05/21 alcohol swabs pad TOPICAL 03/19/20 06/05/21 blood sugar diagnostic #10 ea 03/19/20 06/05/21 fluticasone propionate 110 0 mcg INHALATION 03/19/20 06/05/21 mcg/actuation HFA aerosol inhaler furosemide 20 mg tablet 20 mg PO QAM 03/19/20 06/05/21 hydroxyzine HCl 50 mg tablet 50 mg PO Q8H PRN 03/19/20 06/05/21 lisinopril 40 mg tablet 40 mg PO DAILY 03/19/20 06/05/21 multivitamin-ferrous 1 tab PO QAM 03/19/20 06/05/21 fumarate-folic acid 18 mg-400 mcg tablet rosuvastatin 20 mg tablet 20 mg PO BEDTIME 03/19/20 06/05/21 tramadol 50 mg tablet 50 mg PO TID PRN 03/19/20 06/05/21 metoprolol succinate 200 mg 200 mg PO DAILY 07/09/20 06/05/21 tablet,extended release 24 hr pantoprazole 40 mg tablet,delayed 40 mg PO QAM 07/09/20 06/05/21 release trazodone 150 mg tablet 150 mg PO tab 07/09/20 06/05/21 venlafaxine 150 mg 150 mg PO DAILY 07/09/20 06/05/21 capsule,extended release 24 hr cholecalciferol (vitamin D3) 50 50 mcg PO QAM 10/08/20 06/05/21 mcg (2,000 unit) tablet lancets 33 gauge (OneTouch Delica #100 ea 04/17/21 06/05/21 Plus Lancet) dexlansoprazole 30 mg 30 mg PO DAILY 05/23/21 06/05/21 capsule,biphase delayed release (Dexilant) Previous Rx's Medication Instructions Recorded pen needle, diabetic 32 gauge x 1 ea SUBCUT DAILY 90 Days #90 ea 03/29/20 (BD Ultra-Fine Sasha Pen Needle) clonidine HCl 0.1 mg tablet 0.2 mg PO BEDTIME #60 tab 07/03/20 acetaminophen 650 mg 650 mg PO Q8H PRN #90 tab 09/11/20 tablet,extended release insulin glargine 100 unit/mL (3 34 unit (0.34 mL) SUBCUT QPM #15 ml 11/23/20 mL) subcutaneous pen (Lantus Solostar U-100 Insulin) meclizine 25 mg tablet 25 mg PO DAILY PRN #20 tab 02/11/21 empagliflozin 10 mg tablet 10 mg PO QAM #30 tab 02/19/21 (Jardiance) dulaglutide 4.5 mg/0.5 mL 4.5 mg (0.5 mL) SUBCUT QWEEK #2 ml 03/17/21 subcutaneous pen injector (Trulicity) levothyroxine 75 mcg tablet 75 mcg PO QAM #30 tab 04/15/21 gabapentin 100 mg capsule 300 mg PO BEDTIME #90 cap 05/20/21 cyclobenzaprine 10 mg tablet 10 mg PO TID PRN #10 tab 06/05/21 Allergies Allergy/AdvReac Type Severity Reaction Status Date / Time No Known Allergies Allergy Verified 06/05/21 13:01 [No Known Allergies*] Review of Systems Review of Systems: Yes all other systems are reviewed and are negative Constitutional: Constitutional: Reports no additional constitutional complaints, Denies body ache(s), Denies chills, Denies fever(s), Denies headache(s) and Denies weakness Eyes: Eyes: Reports no additional eye complaints and Denies change in vision ENT: Reports system reviewed and no additional complaints, except as documented, Denies dizziness, Denies headache(s), Denies nasal congestion, Denies nasal discharge and Denies neck pain Cardiovascular: Cardiovascular: Reports no additional cardiovascular complaints, Denies chest pain, Reports leg edema and Denies dyspnea Respiratory: Respiratory: Reports no additional respiratory complaints, Denies cough and Denies dyspnea Gastrointestinal: Gastrointestinal: Reports no additional gastrointestinal complaints, Denies abdominal pain, Denies diarrhea, Denies nausea and Denies vomiting Genitourinary: Genitourinary: Reports no additional female genitourinary complaints and Denies urinary incontinence Musculoskeletal: Musculoskeletal: Reports no additional musculoskeletal complaints, Denies back pain, Reports arthralgias, Denies joint swelling, Denies neck pain, Denies numbness and Reports tingling Integumentary/Breasts: Skin/Breast: Reports system reviewed and no additional complaints, except as docu and Denies rash Neurologic: Reports system reviewed and no additional complaints, except as documented, Denies Abnormal speech present, Denies dizziness, Denies headache(s), Denies numbness, Reports tingling and Denies weakness PMFSH Past Medical History Attestation statement: The following information was validated with the patient. Source: old records reviewed and nursing notes reviewed Medical History BMI 35.0-35.9,adult Cervical cancer Constipation Depression with anxiety Diabetes mellitus with hyperglycemia Essential hypertension Fibromyalgia GERD (gastroesophageal reflux disease) Meir's disease Hyperlipidemia LDL goal <100 Hyperparathyroidism Leg edema, left Multinodular thyroid Osteoarthritis of left knee Osteopenia Other obesity due to excess calories Other specified acquired hypothyroidism Skin lesion of chest wall Thyroid nodule Type 2 diabetes mellitus with diabetic polyneuropathy Vitamin B12 deficiency Vitamin D deficiency Surgical History History of arthroplasty of right knee History of bilateral carpal tunnel release History of esophagogastroduodenoscopy (EGD) Hx of arthroscopy of left knee Hx of bilateral oophorectomy Hx of colonoscopy Hx of foot surgery Hx of hysterectomy Family History Family History Father CVD (cardiovascular disease) Diabetes mellitus Stroke Mother Stroke Diabetes mellitus Breast cancer Hyperthyroidism Social History Social History Household Members: None Housing: House Are you a primary pharmacy customer care specialist to a significant other at home: No Do you presently have visiting nurse or other home services: No Alcohol intake: never Patient Tobacco Use Status: Never used Tobacco service: No 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al status: disabled 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: Right Handed Physical Exam Vital Signs: Vital Signs: Last Vital Signs Temp 97.2 F 06/05/21 13:29 Pulse 71 06/05/21 13:29 Resp 18 06/05/21 13:29 BP 157/85 H 06/05/21 13:29 Pulse Ox 97 06/05/21 13:29 BMI result Body Mass Index 35.2 Const: General: cooperative, healthy appearing, comfortable and no acute distress Orientation/consciousness: patient oriented x3 Limitations: no limitations HEENT: Head: Yes normal to inspection Ears: hearing grossly normal bilaterally General nose exam: Normal external nose present Face and sinus: Yes normal facial exam Mouth: Normal oral and palatal mucosa present Throat: Yes posterior oropharynx normal Eyes: General: appearance normal, both eyes and all related structures Pupils: Equal, round and reactive pupils present Neck: Neck: Yes normal visual inspection Chest: Chest palpation & inspection: normal inspection of the chest Resp: Effort & Inspection: normal respiratory effort Auscultation: clear to auscultation bilaterally Cardio: Rate: regular rate Rhythm: regular rhythm Peripheral pulses: Peripheral pulses 2+ throughout GI: Inspection: Yes normal to inspection Palpation (GI): Soft to palpation and nontender Auscultation: normal bowel sounds Back/Spine/Pelvis: Thoracic/Lumbar Spine: thoracic and lumbar spine normal to inspection Skin: General skin exam: no rashes or lesions noted Neuro: General: patient oriented x3, no focal motor deficits and normal sensation to monofilament Cranial nerves: Yes Equal, round and reactive pupils present Cognition (Neuro): normal cognition Speech: No Abnormal speech present Gait exam (Neuro): Normal gait present Motor exam (neuro): 5/5 motor strength present throughout Extrem: Other: Slight swelling and tenderness over the dorsal left foot with no redness or warmth. Neurovascular intact distally. There is tenderness over the entire left calf with slight swelling but no obvious warmth or redness General: Yes normal to inspection Course Course Course Narrative: 66-year-old female here with reports of left foot pain with swelling and left leg pain and swelling for 2 days with no known injury or trauma. Patient tells me most of her pain over her left foot. Will check x-rays the left foot. Also check ultrasound to rule out DVT, provide analgesia. 1550-x-rays of foot showed no acute finding. Ultrasound of left lower extremity is negative for DVT. I explained to the patient that she should follow-up with primary care doctor in for persistent symptoms have a repeat ultrasound in 7 days. In the meantime she may use ice or heat, gentle compression and stretching at home with [id number] Motrin or Tylenol for pain as needed. Reviewed worrisome signs and symptoms of when to return to the emergency department. Comfortable discharge home. MDM - Extremity (Nontraumatic) Medical Records Attestation: I reviewed the patient's medical records. Lab Data Attestation: I reviewed the patient's lab results. Imaging Data Venous US: Attestation: I personally reviewed and interpreted this imaging study as follows: Radiologist's impression: FINDINGS: There is normal venous compression and respiratory variation and augmented flow. The visualized common femoral vein, superficial femoral vein, profunda femoral vein, popliteal vein, and the trifurcation region shows no evidence of deep venous thrombosis. ? There is no significant popliteal fossa cyst. If the patient's symptoms persist, followup ultrasound in 5 days 7 days might be of value to exclude proximal propagation from a non-visualized calf vein. US/US venous duplex LE LT IMPRESSION: No DVT demonstrated in the left lower extremity. foot xray: Attestation: I personally reviewed and interpreted this imaging study as follows: Radiologist's impression: [id number] [place] [id number] XRay Report Signed Patient: Lois Dalton MR#: [id number] : 1955 Acct:[id number] Age/Sex: 66 / F ADM Date: 06/05/21 Loc: HO.ED Attending Dr: Ordering Physician: Sylvia Munoz NP Date of Service: 06/05/21 Procedure(s): XR foot LT min 3V Accession Number(s): [id number] cc: Sylvia Munoz NP~ EXAMINATION: XR FOOT, LEFT CLINICAL INFORMATION: Pain? COMPARISON: Previous x-ray August 2006? TECHNIQUE: AP, lateral, and oblique views of the left foot. FINDINGS: There is an old healed fracture of the distal fifth metatarsal shaft. No acute fracture or dislocation is seen. The joint spaces are normal. There are calcaneal spurs.? XR/XR foot LT min 3V IMPRESSION: No acute fracture or dislocation. Calcaneal spurs. Discharge Plan Discharge Clinical Impression: Acute leg pain Patient Disposition: Home, Self-Care Instructions: Leg Pain (ED) Additional Instructions: Your ultrasound shows no evidence of blood clot. It is recommended if you have persistent symptoms in 7 days to have a repeat ultrasound by your primary care doctor. Continue your home medications Heat or ice, gentle stretching Prescriptions: New cyclobenzaprine 10 mg tablet 10 mg PO TID PRN (Reason: muscle spasm) Qty: 10 0RF No Action pen needle, diabetic [BD Ultra-Fine Sasha Pen Needle] 32 gauge x 5/32 needle 1 ea subcut DAILY 90 Days Qty: 90 3RF acetaminophen 650 mg tablet extended release 650 mg PO Q8H PRN (Reason: pain) Qty: 90 3RF Lantus Solostar U-100 Insulin 100 unit/mL (3 mL) insulin pen 34 unit subcut QPM Qty: 15 4RF Jardiance 10 mg tablet 10 mg PO QAM Qty: 30 4RF Trulicity 4.5 mg/0.5 mL pen injector 4.5 mg subcut QWEEK Qty: 2 6RF levothyroxine 75 mcg tablet 75 mcg PO QAM Qty: 30 6RF gabapentin 100 mg capsule 300 mg PO BEDTIME Qty: 90 0RF dexlansoprazole [Dexilant] 30 mg capsule,biphase delayed releas 30 mg PO DAILY 0RF meclizine 25 mg tablet 25 mg PO DAILY PRN (Reason: dizziness) Qty: 20 0RF hydrochlorothiazide 50 mg tablet 50 mg PO DAILY 0RF tramadol 50 mg tablet 50 mg PO TID PRN (Reason: Pain) 0RF rosuvastatin 20 mg tablet 20 mg PO BEDTIME 0RF Flovent HFA 110 mcg/actuation HFA aerosol inhaler 0 mcg inhalation 0RF lisinopril 40 mg tablet 40 mg PO DAILY 0RF furosemide 20 mg tablet 20 mg PO QAM 0RF Certavite-Antioxidant 18-400 mg-mcg tablet 1 tab PO QAM 0RF alcohol swabs Pads, Medicated topical 0RF (DME) FreeStyle Lite Strips Strip See Rx Instructions ea Not Applicable BID Qty: 10 0RF Rx Instructions: As directed hydroxyzine HCl 50 mg tablet 50 mg PO Q8H PRN (Reason: anxiety) 0RF trazodone 150 mg tablet 150 mg PO 0RF clonidine HCl 0.1 mg tablet 0.2 mg PO BEDTIME Qty: 60 11RF cholecalciferol (vitamin D3) 50 mcg (2,000 unit) tablet 50 mcg PO QAM 0RF mecobalamin (vitamin B12) 1,000 mcg tablet,chewable 1,000 mcg PO DAILY 0RF diclofenac sodium 75 mg tablet,delayed release (DR/EC) 75 mg PO BID 0RF aspirin 325 mg tablet,delayed release (DR/EC) 325 mg PO DAILY 0RF metformin 500 mg tablet extended release 24 hr See Rx Instructions PO BID 0RF Rx Instructions: 1 tab in am and 2 tab in pm PO 2 times a day; pantoprazole 40 mg tablet,delayed release (DR/EC) 40 mg PO QAM 0RF venlafaxine 150 mg capsule,extended release 24hr 150 mg PO DAILY 0RF metoprolol succinate 200 mg tablet extended release 24 hr 200 mg PO DAILY 0RF (DME) lancets [OneTouch Delica Plus Lancet] 33 gauge misc See Rx Instructions ea topical .MEDSUPPLY Qty: 100 0RF Rx Instructions: As directed Referrals: Breanna Zamudio NETWORK ASSOCIATE [Primary Care Provider] - 1 week Print Language: Kiswahili
[2021-06-05] MEDS: Ketorolac Tromethamine 30 MG/ML VIAL IM (14:13)
== END 2021-06-05 15:35 | disposition home or self-care (01) ==
PROVIDERS: Emergency Provider Emergency Medicine; PCP Nurse Practitioner Primary Care
DX: M79.604 Pain in right leg (principal); M79.605 Pain in left leg; R60.0 Localized edema; Z79.899 Other long term (current) drug therapy
CPT/HCPCS: 73630; 93971; 96372; 99284; J1885

== ENCOUNTER 2021-08-21 12:48 | Emergency (ER) | payer OTHER, SELFPAY ==
[2021-08-21 12:56] VITALS: BP 193/73; PULSE 92; RESP 18; TEMP 37; O2SAT 97; BMI 33.3
[2021-08-21 20:57] LABS: MANUAL DIFF FLAG NO
[2021-08-21 20:59] LABS: Basophils Absolute Auto 0.1 X10*3/uL (0.0-0.2); Basophils Percent Auto 0.8 % (0-2); Eosinophils Absolute Auto 0.3 X10*3/uL (0.0-0.4); Eosinophils Percent Auto 2.5 % (0-4); Hematocrit 43.3 % (37.0-47.0); Hemoglobin 14.2 g/dl (12.0-16.0); Imm Gran Abs Auto 0.06 X10*3/uL (0.00-0.03); Imm Gran Pct Auto 0.6 % (0.0-0.4); Lymphocytes Absolute Auto 3.3 X10*3/uL (1.2-4.9); Lymphocytes Percent Auto 30.2 % (20-40); Mean Corpuscular HGB Conc 32.8 g/dl (31.0-35.0); Mean Corpuscular Hemoglobin 26.7 pg (27.0-33.0); Mean Corpuscular Volume 81.4 fL (80.0-98.0); Monocytes Absolute Auto 0.8 X10*3/uL (0.1-1.2); Monocytes Percent Auto 7.5 % (2-11); Neutrophils Absolute Auto 6.3 x10*3/uL (2.0-8.3); Neutrophils Percent Auto 58.4 % (45-73); Platelet Count 283 X10*3/uL (160-400); Red Blood Count 5.32 X10*6/uL (4.20-5.50); White Blood Count 10.8 X10*3/uL (4.8-10.8)
--- NOTE | 2021-08-21 21:13 | ED.LOWEXIN ---
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 at the medial aspect of the anterior, right lower extremity without warmth/erythema/induration noted, but patient reports pain radiating from the knee down to the calf and into the sole foot. She denies any abnormal color change and is says that she does have swollen lower extremities at baseline. She denies any other shortness of breath, palpitations, recent travel. Related Data Home Medications Medication Instructions Recorded Confirmed aspirin 325 mg tablet,delayed 325 mg PO DAILY 02/28/20 06/05/21 release diclofenac sodium 75 mg 75 mg PO BID 02/28/20 06/05/21 tablet,delayed release mecobalamin (vitamin B12) 1,000 1,000 mcg PO DAILY 02/28/20 06/05/21 mcg chewable tablet metformin 500 mg tablet,extended See Rx Instructions PO BID 02/28/20 06/05/21 release 24 hr hydrochlorothiazide 50 mg tablet 50 mg PO DAILY 02/29/20 06/05/21 alcohol swabs pad topical 03/19/20 06/05/21 blood sugar diagnostic #10 ea 03/19/20 06/05/21 fluticasone propionate 110 0 mcg inhalation 03/19/20 06/05/21 mcg/actuation HFA aerosol inhaler furosemide 20 mg tablet 20 mg PO QAM 03/19/20 06/05/21 hydroxyzine HCl 50 mg tablet 50 mg PO Q8H PRN anxiety 03/19/20 06/05/21 lisinopril 40 mg tablet 40 mg PO DAILY 03/19/20 06/05/21 multivitamin-ferrous 1 tab PO QAM 03/19/20 06/05/21 fumarate-folic acid 18 mg-400 mcg tablet rosuvastatin 20 mg tablet 20 mg PO BEDTIME 03/19/20 06/05/21 tramadol 50 mg tablet 50 mg PO TID PRN Pain 03/19/20 06/05/21 metoprolol succinate 200 mg 200 mg PO DAILY 07/09/20 06/05/21 tablet,extended release 24 hr pantoprazole 40 mg tablet,delayed 40 mg PO QAM 07/09/20 06/05/21 release trazodone 150 mg tablet 150 mg PO 07/09/20 06/05/21 venlafaxine 150 mg 150 mg PO DAILY 07/09/20 06/05/21 capsule,extended release 24 hr cholecalciferol (vitamin D3) 50 50 mcg PO QAM 10/08/20 06/05/21 mcg (2,000 unit) tablet lancets 33 gauge (OneTouch Delica #100 ea 04/17/21 06/05/21 Plus Lancet) dexlansoprazole 30 mg 30 mg PO DAILY 05/23/21 06/05/21 capsule,biphase delayed release (Dexilant) Previous Rx's Medication Instructions Recorded pen needle, diabetic 32 gauge x 1 ea subcut DAILY 90 days #90 ea 03/29/20 (BD Ultra-Fine Sasha Pen Needle) clonidine HCl 0.1 mg tablet 0.2 mg PO BEDTIME #60 tabs 07/03/20 acetaminophen 650 mg 650 mg PO Q8H PRN pain #90 tabs 09/11/20 tablet,extended release meclizine 25 mg tablet 25 mg PO DAILY PRN dizziness #20 02/11/21 tabs dulaglutide 4.5 mg/0.5 mL 4.5 mg (0.5 mL) subcut QWEEK #2 mL 03/17/21 subcutaneous pen injector (Trulicity) levothyroxine 75 mcg tablet 75 mcg PO QAM #30 tabs 04/15/21 cyclobenzaprine 10 mg tablet 10 mg PO TID PRN muscle spasm #10 06/05/21 tabs empagliflozin 10 mg tablet 10 mg PO QAM #30 tabs 07/29/21 (Jardiance) insulin glargine 100 unit/mL (3 34 unit (0.34 mL) subcut QPM #15 mL 08/01/21 mL) subcutaneous pen (Lantus Solostar U-100 Insulin) gabapentin 100 mg capsule 300 mg PO BEDTIME #90 caps 08/08/21 Allergies Allergy/AdvReac Type Severity Reaction Status Date / Time No Known Allergies Allergy Verified 06/05/21 13:01 [No Known Allergies*] Review of Systems Review of Systems: Pertinent positives and negatives as stated in HPI 10 point review of systems is otherwise negative. [facility] Past Medical History Source: nursing notes reviewed Medical History BMI 35.0-35.9,adult Cervical cancer Constipation Depression with anxiety Diabetes mellitus with hyperglycemia Essential hypertension Fibromyalgia GERD (gastroesophageal reflux disease) Meir's disease Hyperlipidemia LDL goal <100 Hyperparathyroidism Leg edema, left Multinodular thyroid Osteoarthritis of left knee Osteopenia Other obesity due to excess calories Other specified acquired hypothyroidism Skin lesion of chest wall Thyroid nodule Type 2 diabetes mellitus with diabetic polyneuropathy Vitamin B12 deficiency Vitamin D deficiency Surgical History History of arthroplasty of right knee History of bilateral carpal tunnel release History of esophagogastroduodenoscopy (EGD) Hx of arthroscopy of left knee Hx of bilateral oophorectomy Hx of colonoscopy Hx of foot surgery Hx of hysterectomy Family History Family History Father CVD (cardiovascular disease) Diabetes mellitus Stroke Mother Stroke Diabetes mellitus Breast cancer Hyperthyroidism Social History Social History Household Members: None Housing: House Are you a primary childbirth and infant care teacher to a significant other at home: No Do you presently have visiting nurse or other home services: No Alcohol intake: never Patient Tobacco Use Status: Never used Tobacco Advance Directives: No Advance Directives Information Provided: Yes service: No 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al status: disabled 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: Right Handed Physical Exam Vital Signs: Vital Signs: Last Vital Signs Temp 98.6 F 08/21/21 12:56 Pulse 78 08/21/21 22:39 Resp 18 08/21/21 21:31 BP 166/81 H 08/21/21 22:39 Pulse Ox 98 08/21/21 21:33 O2 Del Method 08/21/21 21:33 BMI result Body Mass Index 33.3 VITAL SIGNS: Reviewed. GENERAL: Elevated BMI, Well developed, well nourished, in no acute distress. HEAD: Normocephalic/atraumatic EYES: PERRLA, EOMI EARS: Ext canals without abnormality OROPHARYNX: no oral lesions noted, posterior pharynx clear LUNGS: Normal breath sounds. No adventitious sounds or accessory muscle use. SpO2<98> CARDIOVASCULAR: Regular rate and rhythm without noted murmurs, no JVD but b/l lower extremity edema, 1+. ABDOMEN: Soft, non-tender, non-distended with bowel sounds. MUSCULOSKELETAL: No tenderness, deformities, or effusions noted on gross inspection. EXTREMITIES: No cyanosis, clubbing or edema; B/L KNEES: no erythema/induration/warmth; RLE:reddish/brown patch to medial aspect of anterior lower leg, not raised, no warmth, superficial. SKIN: Inspection of the skin reveals rash as above NEUROLOGIC: Alert and oriented x 4. Strength and sensation to light touch were grossly intact x 4. Course Course Course Narrative: 66-year-old female with history and clinical presentation what appears to be diabetic dermopathy as there is no clinical evidence of cellulitis, patient did report an isolated elevated temperature of 101 degrees last night although there is no associated long/abdomen/urine complaints. Patient is noted to have MGUS but on review investigations protein levels appear to be within normal limits. Will rule out DVT. Review of all investigations without acute findings to suggest infection, DVT, injury. On re-evaluation patient's blood pressure has improved and is otherwise negative. All results discussed with patient she was instructed to start wearing compression stockings and follow-up with primary care provider. MDM - Extremity Injury (Lower) Lab Data Result diagrams: 08/21/21 20:40 08/21/21 20:40 Labs: Lab Results 08/21/21 08/21/21 08/21/21 Range/Units 20:40 20:40 21:58 WBC 10.8 (4.8-10.8) X10*3/uL RBC 5.32 (4.20-5.50) X10*6/uL Hgb 14.2 (12.0-16.0) g/dl Hct 43.3 (37.0-47.0) % MCV 81.4 (80.0-98.0) fL MCH 26.7 L (27.0-33.0) pg MCHC 32.8 (31.0-35.0) g/dl RDW 14.0 (11.0-16.0) % Plt Count 283 (160-400) X10*3/uL MPV 10.0 (9.4-12.3) fL Immature Gran % (Auto) 0.6 H (0.0-0.4) % Neut % (Auto) 58.4 (45-73) % Lymph % (Auto) 30.2 (20-40) % [place] % (Auto) 7.5 (2-11) % Eos % (Auto) 2.5 (0-4) % Baso % (Auto) 0.8 (0-2) % Lymph # (Auto) 3.3 (1.2-4.9) X10*3/uL [place] # (Auto) 0.8 (0.1-1.2) X10*3/uL Eos # (Auto) 0.3 (0.0-0.4) X10*3/uL Baso # (Auto) 0.1 (0.0-0.2) X10*3/uL Abs Immat Gran (auto) 0.06 H (0.00-0.03) X10*3/uL Absolute Neuts (auto) 6.3 (2.0-8.3) x10*3/uL Absolute Nucleated RBC 0.000 (0.0-0.012) X10*3/uL Nucleated RBC % (auto) 0.0 (0.0-0.2) /100WBC D-Dimer High Sensitivty NG/ML Sodium 140 (135-145) mmol/L Potassium 4.2 (3.3-5.1) mmol/L Chloride 103 (96-108) mmol/L Carbon Dioxide 26 (22-29) mmol/L Anion Gap 15 (12-20) BUN 12 (9-16) mg/dL Creatinine 0.88 (0.5-1.4) mg/dL Estim Creat Clear Calc 69.0 Estimated GFR > 60 Random Glucose 221 H (60-115) mg/dL Calcium 9.3 (8.4-10.2) mg/dL Total Bilirubin 0.5 (0.0-1.0) mg/dL AST 32 H (5-31) U/L ALT 44 H (0-31) U/L Alkaline Phosphatase 119 H (39-117) U/L Total Protein 7.1 (6.5-8.0) g/dL Albumin 3.9 (3.5-5.0) g/dL Urine Color YELLOW Urine Appearance CLEAR Urine pH 6.0 (5.0-8.0) Ur Specific [place] 1.020 (1.005-1.025) Urine Protein TRACE (NEG-TRACE) MG/DL Urine Glucose (UA) 250 H (NEG) MG/DL Urine Ketones NEG (NEG) MG/DL Urine Blood NEG (NEG) Urine Nitrite NEG (NEG) Ur Leukocyte Esterase NEG (NEG) 08/21/21 Range/Units 22:17 WBC (4.8-10.8) X10*3/uL RBC (4.20-5.50) X10*6/uL Hgb (12.0-16.0) g/dl Hct (37.0-47.0) % MCV (80.0-98.0) fL MCH (27.0-33.0) pg MCHC (31.0-35.0) g/dl RDW (11.0-16.0) % Plt Count (160-400) X10*3/uL MPV (9.4-12.3) fL Immature Gran % (Auto) (0.0-0.4) % Neut % (Auto) (45-73) % Lymph % (Auto) (20-40) % [place] % (Auto) (2-11) % Eos % (Auto) (0-4) % Baso % (Auto) (0-2) % Lymph # (Auto) (1.2-4.9) X10*3/uL [place] # (Auto) (0.1-1.2) X10*3/uL Eos # (Auto) (0.0-0.4) X10*3/uL Baso # (Auto) (0.0-0.2) X10*3/uL Abs Immat Gran (auto) (0.00-0.03) X10*3/uL Absolute Neuts (auto) (2.0-8.3) x10*3/uL Absolute Nucleated RBC (0.0-0.012) X10*3/uL Nucleated RBC % (auto) (0.0-0.2) /100WBC D-Dimer High Sensitivty 162 NG/ML Sodium (135-145) mmol/L Potassium (3.3-5.1) mmol/L Chloride (96-108) mmol/L Carbon Dioxide (22-29) mmol/L Anion Gap (12-20) BUN (9-16) mg/dL Creatinine (0.5-1.4) mg/dL Estim Creat Clear Calc Estimated GFR Random Glucose (60-115) mg/dL Calcium (8.4-10.2) mg/dL Total Bilirubin (0.0-1.0) mg/dL AST (5-31) U/L ALT (0-31) U/L Alkaline Phosphatase (39-117) U/L Total Protein (6.5-8.0) g/dL Albumin (3.5-5.0) g/dL Urine Color Urine Appearance Urine pH (5.0-8.0) Ur Specific [place] (1.005-1.025) Urine Protein (NEG-TRACE) MG/DL Urine Glucose (UA) (NEG) MG/DL Urine Ketones (NEG) MG/DL Urine Blood (NEG) Urine Nitrite (NEG) Ur Leukocyte Esterase (NEG) Discharge Plan Discharge Clinical Impression: Diabetic dermopathy Patient Disposition: Home, Self-Care Instructions: Diabetes and Your Skin (ED) Additional Instructions: 1. Reanudar todos los medicamentos caseros seg?n lo prescrito. 2. Recomiende que comience a usar medias de compresi?n en todo momento para mejorar el soporte de la circulaci?n. 3. Puede aplicar crema de hidrocortisona de venta antoni en esta ?leticia, tenga cuidado cuando se exponga al luis manuel, ya que esto puede decolorar a?n m?s garza piel. 4. Realice un seguimiento con garza proveedor de atenci?n primaria en los pr?ximos 2 a 3 d?as para jacqueline reevaluaci?n y un manejo ambulatorio adicional. Regrese a la lon de emergencias si los s?ntomas empeoran. Prescriptions: No Action pen needle, diabetic [BD Ultra-Fine Sasha Pen Needle] 32 gauge x 5/32 needle 1 ea subcut DAILY 90 Days Qty: 90 3RF acetaminophen 650 mg tablet extended release 650 mg PO Q8H PRN (Reason: pain) Qty: 90 3RF Trulicity 4.5 mg/0.5 mL pen injector 4.5 mg subcut QWEEK Qty: 2 6RF levothyroxine 75 mcg tablet 75 mcg PO QAM Qty: 30 6RF Jardiance 10 mg tablet 10 mg PO QAM Qty: 30 4RF Lantus Solostar U-100 Insulin 100 unit/mL (3 mL) insulin pen 34 unit subcut QPM Qty: 15 4RF gabapentin 100 mg capsule 300 mg PO BEDTIME Qty: 90 3RF dexlansoprazole [Dexilant] 30 mg capsule,biphase delayed releas 30 mg PO DAILY meclizine 25 mg tablet 25 mg PO DAILY PRN (Reason: dizziness) Qty: 20 0RF cyclobenzaprine 10 mg tablet 10 mg PO TID PRN (Reason: muscle spasm) Qty: 10 0RF hydrochlorothiazide 50 mg tablet 50 mg PO DAILY tramadol 50 mg tablet 50 mg PO TID PRN (Reason: Pain) rosuvastatin 20 mg tablet 20 mg PO BEDTIME Flovent HFA 110 mcg/actuation HFA aerosol inhaler 0 mcg inhalation lisinopril 40 mg tablet 40 mg PO DAILY furosemide 20 mg tablet 20 mg PO QAM Certavite-Antioxidant 18-400 mg-mcg tablet 1 tab PO QAM alcohol swabs Pads, Medicated topical (DME) FreeStyle Lite Strips Strip See Rx Instructions Not Applicable BID Qty: 10 Rx Instructions: As directed hydroxyzine HCl 50 mg tablet 50 mg PO Q8H PRN (Reason: anxiety) trazodone 150 mg tablet 150 mg PO clonidine HCl 0.1 mg tablet 0.2 mg PO BEDTIME Qty: 60 11RF cholecalciferol (vitamin D3) 50 mcg (2,000 unit) tablet 50 mcg PO QAM mecobalamin (vitamin B12) 1,000 mcg tablet,chewable 1,000 mcg PO DAILY diclofenac sodium 75 mg tablet,delayed release (DR/EC) 75 mg PO BID aspirin 325 mg tablet,delayed release (DR/EC) 325 mg PO DAILY metformin 500 mg tablet extended release 24 hr See Rx Instructions PO BID Rx Instructions: 1 tab in am and 2 tab in pm PO 2 times a day; pantoprazole 40 mg tablet,delayed release (DR/EC) 40 mg PO QAM venlafaxine 150 mg capsule,extended release 24hr 150 mg PO DAILY metoprolol succinate 200 mg tablet extended release 24 hr 200 mg PO DAILY (DME) lancets [OneTouch Delica Plus Lancet] 33 gauge misc See Rx Instructions topical .MEDSUPPLY Qty: 100 Rx Instructions: As directed Referrals: Breanna Zamudio [employer] [employer] CONSULTANT [Primary Care Provider] - Print Language: Vietnamese
[2021-08-21 21:15] LABS: Alanine Aminotransferase 44 U/L (0-31); Albumin Level 3.9 g/dL (3.5-5.0); Alkaline Phosphatase 119 U/L (39-117); Anion Gap 15 (12-20); Aspartate Amino Transferase 32 U/L (5-31); Bilirubin Total 0.5 mg/dL (0.0-1.0); Blood Urea Nitrogen 12 mg/dL (9-16); Calcium 9.3 mg/dL (8.4-10.2); Carbon Dioxide 26 mmol/L (22-29); Chloride 103 mmol/L (96-108); Estimated Glomerular Filt Rate > 60; Glucose Random 221 mg/dL (60-115); Potassium 4.2 mmol/L (3.3-5.1); Sodium 140 mmol/L (135-145); Total Protein 7.1 g/dL (6.5-8.0)
[2021-08-21 21:31] VITALS: PULSE 73; RESP 18; O2SAT 100
[2021-08-21 21:33] VITALS: BP 218/88; PULSE 77; O2SAT 98
--- NOTE | 2021-08-21 21:34 | PC.NURSE ---
2 days of RLE pain, red discoloration, difficulty with ambulating. extremity cool, nontender
[2021-08-21] MEDS: amLODIPine Besylate 10 MG TABLET PO (21:52)
[2021-08-21 22:07] LABS: Appearance Urine CLEAR; Color Urine YELLOW; Glucose Urine UA 250 MG/DL (NEG); Leukocyte Esterase Urine NEG (NEG); Nitrite Urine NEG (NEG); Urine Blood NEG (NEG); Urine Ketones NEG (NEG); Urine Protein TRACE MG/DL (NEG-TRACE)
[2021-08-21 22:33] LABS: D Dimer High Sensitivity 162 NG/ML
[2021-08-21 22:39] VITALS: BP 166/81; PULSE 78
--- NOTE | 2021-08-21 23:24 | PC.NURSE ---
Reviewed discharge instructions with pt . Pt verbalized understanding.
== END 2021-08-21 23:25 | disposition home or self-care (01) ==
PROVIDERS: Emergency Provider Student in an Organized Health Care Education/Training Program; PCP Nurse Practitioner Primary Care
DX: L90.8 Other atrophic disorders of skin (principal); E11.620 Type 2 diabetes mellitus with diabetic dermatitis; M79.661 Pain in right lower leg; I10 Essential (primary) hypertension; E78.5 Hyperlipidemia, unspecified
CPT/HCPCS: 36415; 80053; 81003; 85025; 85379; 99283; 99284

== ENCOUNTER 2021-09-04 14:02 | Outpatient (REF) | payer OTHER, SELFPAY ==
[2021-09-04 15:28] LABS: Alanine Aminotransferase 36 U/L (0-31); Albumin Level 3.9 g/dL (3.5-5.0); Alkaline Phosphatase 123 U/L (39-117); Anion Gap 13 (12-20); Aspartate Amino Transferase 28 U/L (5-31); Bilirubin Total 0.6 mg/dL (0.0-1.0); Blood Urea Nitrogen 9 mg/dL (9-16); Carbon Dioxide 26 mmol/L (22-29); Chloride 106 mmol/L (96-108); Estimated Glomerular Filt Rate > 60; Glucose Random 163 mg/dL (60-115); Phosphorus 3.1 mg/dL (2.7-4.5); Potassium 4.2 mmol/L (3.3-5.1); Sodium 141 mmol/L (135-145)
[2021-09-04 15:38] LABS: Free T4 (Free Thyroxine) 1.09 ng/dL (0.71-1.85); Thyroid Stimulating Hormone 2.02 uIU/mL (0.32-4.0); Vitamin D 25-OH Total 21.6 ng/mL (>30)
[2021-09-05 15:41] LABS: Calcium (PTHI) 9.1 mg/dL (8.6-10.4); PTHI 130 pg/mL (16-77)
== END 2021-09-04 14:03 | disposition home or self-care (01) ==
LOC: HO.LAB 14:02
PROVIDERS: Visit Provider Internal Medicine
DX: E04.2 Nontoxic multinodular goiter (principal); E55.9 Vitamin D deficiency, unspecified; E21.3 Hyperparathyroidism, unspecified
CPT/HCPCS: 36415; 80053; 82306; 83970; 84100; 84439; 84443

== ENCOUNTER → 2021-09-05 11:03 | Outpatient (BNVA) | payer OTHER, SELFPAY | PROVIDERS: PCP Nurse Practitioner Primary Care; Visit Provider Internal Medicine | DX: E21.3 Hyperparathyroidism, unspecified (principal); E04.2 Nontoxic multinodular goiter; E55.9 Vitamin D deficiency, unspecified | CPT/HCPCS: Q3014 ==

== ENCOUNTER 2021-10-15 23:54 | Emergency (ER) | payer OTHER, SELFPAY ==
--- NOTE | ~2021-10-15 | CT_ITS ---
EXAMINATION: CT ABDOMEN AND PELVIS WITHOUT CONTRAST CLINICAL INFORMATION: Abdominal pain and bloody diarrhea, rule out colitis COMPARISON: CT abdomen and pelvis 12/03/2017 TECHNIQUE: Multidetector volumetric imaging was performed from the superior aspect of the liver through the pubic symphysis. Sagittal and coronal reformatted images were obtained on the technologist's workstation. This CT examination was performed using dose optimization techniques as appropriate, variously including the following: *Automated exposure control *Adjustment of mA and/or kV according to patient size (this includes techniques or standardized protocols for targeted exams where dose is matched to indication/reason for exam; i.e. extremities or head) *Use of iterative reconstruction technique DLP: 7:30 mGy-cm FINDINGS: LUNG BASES: Trace bilateral pleural effusions. Bibasilar atelectasis. There is bronchial wall thickening and plugging in the lower lobes. Trace pericardial fluid LIVER, GALLBLADDER, AND BILIARY TREE: The liver is normal in size, shape, and attenuation. No focal hepatic lesion or biliary ductal dilatation is present. Status post cholecystectomy PANCREAS: Unremarkable. SPLEEN: Unremarkable. ADRENAL GLANDS: Unremarkable. KIDNEYS AND URETERS: Normal right kidney. Chronic cyst and cortical scarring of the left upper pole an exophytic left lower pole cyst. No hydronephrosis, hydroureter, or calculi seen. No perinephric stranding. BLADDER: Unremarkable. GASTROINTESTINAL TRACT: Colonic diverticulosis without evidence of diverticulitis. The small and large bowel are otherwise unremarkable. The appendix is unremarkable. ABDOMINAL WALL: No significant hernia is appreciated. LYMPH NODES: Normal. VASCULAR: Unremarkable. PELVIC VISCERA: No adnexal abnormality is identified. Surgically absent uterus OSSEOUS STRUCTURES: No acute or suspicious osseous abnormality. Degenerative changes of the pubic symphysis. Lower lumbar facet arthropathy. CT/CT abdomen pelvis wo con IMPRESSION: No acute intra-abdominal or pelvic abnormality
[2021-10-16 00:20] VITALS: BP 142/86; PULSE 71; O2SAT 96; BMI 33.2
--- NOTE | 2021-10-16 00:39 | ED.ABDPAIN ---
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 Pain started 4 days ago described as constant pain in the mid abdomen pain is severe 10/10 crampy in nature, associated with bloody diarrhea for the past 4 days, pain is worse with food, but no relieving factor, never had this pain in the past, no abdominal trauma, last bowel movement was earlier today, no dysuria, no frequency, not taking blood thinner, no nausea, no vomiting. Patient is scheduled to see a clinical services professional in 2 days. Related Data Home Medications Medication Instructions Recorded Confirmed aspirin 325 mg tablet,delayed 325 mg PO DAILY 02/28/20 09/05/21 release diclofenac sodium 75 mg 75 mg PO BID 02/28/20 09/05/21 tablet,delayed release mecobalamin (vitamin B12) 1,000 1,000 mcg PO DAILY 02/28/20 09/05/21 mcg chewable tablet metformin 500 mg tablet,extended See Rx Instructions PO BID 02/28/20 09/05/21 release 24 hr hydrochlorothiazide 50 mg tablet 50 mg PO DAILY 02/29/20 09/05/21 alcohol swabs pad topical 03/19/20 09/05/21 blood sugar diagnostic #10 ea 03/19/20 09/05/21 fluticasone propionate 110 0 mcg inhalation 03/19/20 09/05/21 mcg/actuation HFA aerosol inhaler furosemide 20 mg tablet 20 mg PO QAM 03/19/20 09/05/21 hydroxyzine HCl 50 mg tablet 50 mg PO Q8H PRN anxiety 03/19/20 09/05/21 lisinopril 40 mg tablet 40 mg PO DAILY 03/19/20 09/05/21 multivitamin-ferrous 1 tab PO QAM 03/19/20 09/05/21 fumarate-folic acid 18 mg-400 mcg tablet rosuvastatin 20 mg tablet 20 mg PO BEDTIME 03/19/20 09/05/21 tramadol 50 mg tablet 50 mg PO TID PRN Pain 03/19/20 09/05/21 metoprolol succinate 200 mg 200 mg PO DAILY 07/09/20 09/05/21 tablet,extended release 24 hr pantoprazole 40 mg tablet,delayed 40 mg PO QAM 07/09/20 09/05/21 release trazodone 150 mg tablet 150 mg PO 07/09/20 09/05/21 venlafaxine 150 mg 150 mg PO DAILY 07/09/20 09/05/21 capsule,extended release 24 hr cholecalciferol (vitamin D3) 50 50 mcg PO QAM 10/08/20 09/05/21 mcg (2,000 unit) tablet lancets 33 gauge (OneTouch Delica #100 ea 04/17/21 09/05/21 Plus Lancet) dexlansoprazole 30 mg 30 mg PO DAILY 05/23/21 09/05/21 capsule,biphase delayed release (Dexilant) Previous Rx's Medication Instructions Recorded pen needle, diabetic 32 gauge x 1 ea subcut DAILY 90 days #90 ea 03/29/20 (BD Ultra-Fine Sasha Pen Needle) clonidine HCl 0.1 mg tablet 0.2 mg PO BEDTIME #60 tabs 07/03/20 acetaminophen 650 mg 650 mg PO Q8H PRN pain #90 tabs 09/11/20 tablet,extended release meclizine 25 mg tablet 25 mg PO DAILY PRN dizziness #20 02/11/21 tabs dulaglutide 4.5 mg/0.5 mL 4.5 mg (0.5 mL) subcut QWEEK #2 mL 03/17/21 subcutaneous pen injector (Trulicity) levothyroxine 75 mcg tablet 75 mcg PO QAM #30 tabs 04/15/21 cyclobenzaprine 10 mg tablet 10 mg PO TID PRN muscle spasm #10 06/05/21 tabs empagliflozin 10 mg tablet 10 mg PO QAM #30 tabs 07/29/21 (Jardiance) insulin glargine 100 unit/mL (3 34 unit (0.34 mL) subcut QPM #15 mL 08/01/21 mL) subcutaneous pen (Lantus Solostar U-100 Insulin) gabapentin 100 mg capsule 300 mg PO BEDTIME #90 caps 08/08/21 omeprazole magnesium 20 mg 20 mg PO BID 10 days #20 tabs 10/16/21 tablet,delayed release (Prilosec OTC) Allergies Allergy/AdvReac Type Severity Reaction Status Date / Time No Known Allergies Allergy Verified 09/05/21 12:10 [No Known Allergies*] Review of Systems Review of Systems All other systems are reviewed and are negative Constitutional: Reports as per HPI and Reports no additional constitutional complaints Eyes: Reports as per HPI and Reports no additional eye complaints Reports system reviewed and no additional complaints, except as documented Cardiovascular: Reports as per HPI and Reports no additional cardiovascular complaints Respiratory: Reports as per HPI and Reports no additional respiratory complaints Gastrointestinal: Reports as per HPI and Reports no additional gastrointestinal complaints Genitourinary: Reports no additional female genitourinary complaints Musculoskeletal: Reports no additional musculoskeletal complaints Skin/Breast: Reports system reviewed and no additional complaints, except as docu Psychiatric: Reports no additional psychiatric complaints Endocrine: Reports no additional endocrine complaints Hematologic/Lymphatic: Reports no additional hematologic/lymphatic complaints Allergic/Immunologic: Reports no additional allergic/immunologic complaints Reports system reviewed and no additional complaints, except as documented and Reports Abnormal speech present PMFSH Past Medical History Medical History BMI 35.0-35.9,adult Cervical cancer Constipation Depression with anxiety Diabetes mellitus with hyperglycemia Essential hypertension Fibromyalgia GERD (gastroesophageal reflux disease) Meir's disease Hyperlipidemia LDL goal <100 Hyperparathyroidism Leg edema, left Multinodular thyroid Osteoarthritis of left knee Osteopenia Other obesity due to excess calories Other specified acquired hypothyroidism Skin lesion of chest wall Thyroid nodule Type 2 diabetes mellitus with diabetic polyneuropathy Vitamin B12 deficiency Vitamin D deficiency Surgical History History of arthroplasty of right knee History of bilateral carpal tunnel release History of esophagogastroduodenoscopy (EGD) Hx of arthroscopy of left knee Hx of bilateral oophorectomy Hx of colonoscopy Hx of foot surgery Hx of hysterectomy Family History Family History Father CVD (cardiovascular disease) Diabetes mellitus Stroke Mother Stroke Diabetes mellitus Breast cancer Hyperthyroidism Social History Social History Household Members: None Housing: House Are you a primary respiratory care program director to a significant other at home: No Do you presently have visiting nurse or other home services: No Alcohol intake: unknown Patient Tobacco Use Status: Never used Tobacco Advance Directives: No service: No 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al status: disabled 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: Right Handed Physical Exam ED Vital Signs: Vital Signs - 24 hr 10/16/21 01:38 10/16/21 04:53 Temperature 98.6 F Pulse Rate 66 66 Respiratory Rate 16 17 Blood Pressure 192/84 H 164/72 H Pulse Oximetry 98 96 Oxygen Delivery Method Room Air Room Air BMI result Body Mass Index 33.2 vital signs have been reviewed as appeared to be correct. Blood pressure normal. Heart rate normal. Respiration rate normal. Temperature normal. Oxygen saturation normal. Appearance: Alert. Oriented X3. No acute distress. Head: Normal external exam. Normocephalic. Atraumatic. No Jones signs noted. No raccoon eyes noted Eyes: PERRLA. EOMI. Conjunctiva and sclera normal. Eyelids normal. ENT: TM's Normal. Pharynx normal. Uvula midline. Moist mucous membranes. No trismus noted. No drooling noted. No muffled voice noted. Neck: Normal inspection. Neck supple. FROM. No adenopathy. Thyroid Normal. No meningeal signs. No neck mass noted. CVS: Normal heart rate and rhythm. Heart sound normal. No murmurs noted. Pulses normal throughout. Respiratory: No respiratory distress. Painless inspiration. Breath sounds normal. No wheezes/rales/rhonchi noted. Chest nontender. No accessory muscle usage noted or decreased air movement noted. Abdomen: Soft and nontender. Bowel sounds normal in all 4 quadrants. No distention noted. No organomegaly noted. No visible injury noted. Rectal exam: No blood in stool, no active bleeding. Back: No CVA tenderness. Full range of motion noted. Skin: Skin warm and dry. Normal skin color. Normal skin turgor. No rashes/lesions/lacerations noted. Extremities: No lower extremity edema. Extremities exhibit normal range of motion. Extremities nontender. Neuro: Oriented X 3. Cranial nerve exam: II-XII are grossly intact No motor deficit. No sensory deficit. Reflexes normal. Course Course Course Narrative: 66-year-old female came in for evaluation of abdominal pain for the past 4 days, patient had unremarkable labs and unremarkable CT of the abdomen and pelvis, patient is already scheduled to see a clinical services professional, normal LFTs, pain is mostly in the epigastric and toward the left upper quadrant area more consistent with gastritis, patient claimed that she had been having bloody stool rectal exam revealed negative stool for occult blood. Otherwise patient hemodynamically stable, patient feels better, repeat physical exam shows improvement of the epigastric tenderness with no rebound or guarding. Will discharge the patient on PPI and follow up with clinical services professional as already scheduled in 2 days. MDM - Abdominal Pain Medical Records Attestation: I reviewed the patient's medical records. Lab Data Attestation: I reviewed the patient's lab results. Result diagrams: 10/16/21 01:07 10/16/21 01:32 Labs: Lab Results 10/16/21 10/16/21 10/16/21 Range/Units 00:48 01:07 01:32 WBC 12.9 H (4.8-10.8) X10*3/uL RBC 5.42 (4.20-5.50) X10*6/uL Hgb 14.6 (12.0-16.0) g/dl Hct 43.4 (37.0-47.0) % MCV 80.1 (80.0-98.0) fL MCH 26.9 L (27.0-33.0) pg MCHC 33.6 (31.0-35.0) g/dl RDW 13.2 (11.0-16.0) % Plt Count 264 (160-400) X10*3/uL MPV 9.7 (9.4-12.3) fL Immature Gran % (Auto) 0.3 (0.0-0.4) % Neut % (Auto) 57.6 (45-73) % Lymph % (Auto) 30.4 (20-40) % Garvin % (Auto) 8.6 (2-11) % Eos % (Auto) 2.2 (0-4) % Baso % (Auto) 0.9 (0-2) % Lymph # (Auto) 3.9 (1.2-4.9) X10*3/uL Garvin # (Auto) 1.1 (0.1-1.2) X10*3/uL Eos # (Auto) 0.3 (0.0-0.4) X10*3/uL Baso # (Auto) 0.1 (0.0-0.2) X10*3/uL Abs Immat Gran (auto) 0.04 H (0.00-0.03) X10*3/uL Absolute Neuts (auto) 7.5 (2.0-8.3) x10*3/uL Absolute Nucleated RBC 0.000 (0.0-0.012) X10*3/uL Nucleated RBC % (auto) 0.0 (0.0-0.2) /100WBC Sodium 140 (135-145) mmol/L Potassium 4.6 (3.3-5.1) mmol/L Chloride 105 (96-108) mmol/L Carbon Dioxide 25 (22-29) mmol/L Anion Gap 15 (12-20) BUN 10 (9-16) mg/dL Creatinine 0.83 (0.5-1.4) mg/dL Estim Creat Clear Calc 73.1 Estimated GFR > 60 Random Glucose 164 H (60-115) mg/dL Calcium 9.0 (8.4-10.2) mg/dL Total Bilirubin 0.3 (0.0-1.0) mg/dL Direct Bilirubin < 0.2 (0.0-0.5) mg/dL AST 24 (5-31) U/L ALT 27 (0-31) U/L Alkaline Phosphatase 96 D (39-117) U/L Total Protein 6.7 (6.5-8.0) g/dL Albumin 3.7 (3.5-5.0) g/dL Lipase 46 (8-78) U/L Urine Color Urine Appearance Urine pH (5.0-8.0) Ur Specific Seymour (1.005-1.025) Urine Protein (NEG-TRACE) MG/DL Urine Glucose (UA) (NEG) MG/DL Urine Ketones (NEG) MG/DL Urine Blood (NEG) Urine Nitrite (NEG) Ur Leukocyte Esterase (NEG) Stool Occult Blood NEGATIVE (NEGATIVE) 10/16/21 Range/Units 02:42 WBC (4.8-10.8) X10*3/uL RBC (4.20-5.50) X10*6/uL Hgb (12.0-16.0) g/dl Hct (37.0-47.0) % MCV (80.0-98.0) fL MCH (27.0-33.0) pg MCHC (31.0-35.0) g/dl RDW (11.0-16.0) % Plt Count (160-400) X10*3/uL MPV (9.4-12.3) fL Immature Gran % (Auto) (0.0-0.4) % Neut % (Auto) (45-73) % Lymph % (Auto) (20-40) % Garvin % (Auto) (2-11) % Eos % (Auto) (0-4) % Baso % (Auto) (0-2) % Lymph # (Auto) (1.2-4.9) X10*3/uL Garvin # (Auto) (0.1-1.2) X10*3/uL Eos # (Auto) (0.0-0.4) X10*3/uL Baso # (Auto) (0.0-0.2) X10*3/uL Abs Immat Gran (auto) (0.00-0.03) X10*3/uL Absolute Neuts (auto) (2.0-8.3) x10*3/uL Absolute Nucleated RBC (0.0-0.012) X10*3/uL Nucleated RBC % (auto) (0.0-0.2) /100WBC Sodium (135-145) mmol/L Potassium (3.3-5.1) mmol/L Chloride (96-108) mmol/L Carbon Dioxide (22-29) mmol/L Anion Gap (12-20) BUN (9-16) mg/dL Creatinine (0.5-1.4) mg/dL Estim Creat Clear Calc Estimated GFR Random Glucose (60-115) mg/dL Calcium (8.4-10.2) mg/dL Total Bilirubin (0.0-1.0) mg/dL Direct Bilirubin (0.0-0.5) mg/dL AST (5-31) U/L ALT (0-31) U/L Alkaline Phosphatase (39-117) U/L Total Protein (6.5-8.0) g/dL Albumin (3.5-5.0) g/dL Lipase (8-78) U/L Urine Color STRAW Urine Appearance CLEAR Urine pH 7.5 (5.0-8.0) Ur Specific Seymour 1.010 (1.005-1.025) Urine Protein NEG (NEG-TRACE) MG/DL Urine Glucose (UA) NEG (NEG) MG/DL Urine Ketones NEG (NEG) MG/DL Urine Blood NEG (NEG) Urine Nitrite NEG (NEG) Ur Leukocyte Esterase NEG (NEG) Stool Occult Blood (NEGATIVE) Imaging Data Abdomen and pelvis CT. : Attestation: I personally reviewed and interpreted this imaging study as follows: Radiologist's impression: no acute intra-abdominal or pelvic abnormality. Discharge Plan Discharge Clinical Impression: Abdominal pain, Gastritis Patient Disposition: Home, Self-Care Instructions: Diet for Stomach Ulcers and Gastritis (ED) Prescriptions: New omeprazole magnesium [Prilosec OTC] 20 mg tablet,delayed release (DR/EC) 20 mg PO BID 10 Days Qty: 20 0RF No Action pen needle, diabetic [BD Ultra-Fine Sasha Pen Needle] 32 gauge x 5/32 needle 1 ea subcut DAILY 90 Days Qty: 90 3RF acetaminophen 650 mg tablet extended release 650 mg PO Q8H PRN (Reason: pain) Qty: 90 3RF Trulicity 4.5 mg/0.5 mL pen injector 4.5 mg subcut QWEEK Qty: 2 6RF levothyroxine 75 mcg tablet 75 mcg PO QAM Qty: 30 6RF Jardiance 10 mg tablet 10 mg PO QAM Qty: 30 4RF Lantus Solostar U-100 Insulin 100 unit/mL (3 mL) insulin pen 34 unit subcut QPM Qty: 15 4RF gabapentin 100 mg capsule 300 mg PO BEDTIME Qty: 90 3RF dexlansoprazole [Dexilant] 30 mg capsule,biphase delayed releas 30 mg PO DAILY meclizine 25 mg tablet 25 mg PO DAILY PRN (Reason: dizziness) Qty: 20 0RF cyclobenzaprine 10 mg tablet 10 mg PO TID PRN (Reason: muscle spasm) Qty: 10 0RF hydrochlorothiazide 50 mg tablet 50 mg PO DAILY tramadol 50 mg tablet 50 mg PO TID PRN (Reason: Pain) rosuvastatin 20 mg tablet 20 mg PO BEDTIME Flovent HFA 110 mcg/actuation HFA aerosol inhaler 0 mcg inhalation lisinopril 40 mg tablet 40 mg PO DAILY furosemide 20 mg tablet 20 mg PO QAM Certavite-Antioxidant 18-400 mg-mcg tablet 1 tab PO QAM alcohol swabs Pads, Medicated topical (DME) FreeStyle Lite Strips Strip See Rx Instructions Not Applicable BID Qty: 10 Rx Instructions: As directed hydroxyzine HCl 50 mg tablet 50 mg PO Q8H PRN (Reason: anxiety) trazodone 150 mg tablet 150 mg PO clonidine HCl 0.1 mg tablet 0.2 mg PO BEDTIME Qty: 60 11RF cholecalciferol (vitamin D3) 50 mcg (2,000 unit) tablet 50 mcg PO QAM mecobalamin (vitamin B12) 1,000 mcg tablet,chewable 1,000 mcg PO DAILY diclofenac sodium 75 mg tablet,delayed release (DR/EC) 75 mg PO BID aspirin 325 mg tablet,delayed release (DR/EC) 325 mg PO DAILY metformin 500 mg tablet extended release 24 hr See Rx Instructions PO BID Rx Instructions: 1 tab in am and 2 tab in pm PO 2 times a day; pantoprazole 40 mg tablet,delayed release (DR/EC) 40 mg PO QAM venlafaxine 150 mg capsule,extended release 24hr 150 mg PO DAILY metoprolol succinate 200 mg tablet extended release 24 hr 200 mg PO DAILY (DME) lancets [OneTouch Delica Plus Lancet] 33 gauge misc See Rx Instructions topical .MEDSUPPLY Qty: 100 Rx Instructions: As directed Referrals: Ludmila Walker MD [Physician] -
[2021-10-16 00:52] LABS: OBS Int Ctl Valid YES; OBS1 NEGATIVE (NEGATIVE)
[2021-10-16] MEDS: 0.9 % Sodium Chloride 1,000 ML 999 ML IV ×2 (01:10)
[2021-10-16] MEDS: Morphine Sulfate 2 MG/ML CARTRIDGE IVPUSH (01:10)
--- NOTE | 2021-10-16 01:13 | PC.NURSE ---
IV established, labs obtained, pt medicated per MAY. Pt aware of plan for CT.
[2021-10-16 01:17] LABS: MANUAL DIFF FLAG NO
[2021-10-16 01:18] LABS: Basophils Absolute Auto 0.1 X10*3/uL (0.0-0.2); Basophils Percent Auto 0.9 % (0-2); Eosinophils Absolute Auto 0.3 X10*3/uL (0.0-0.4); Eosinophils Percent Auto 2.2 % (0-4); Hematocrit 43.4 % (37.0-47.0); Hemoglobin 14.6 g/dl (12.0-16.0); Imm Gran Abs Auto 0.04 X10*3/uL (0.00-0.03); Imm Gran Pct Auto 0.3 % (0.0-0.4); Lymphocytes Absolute Auto 3.9 X10*3/uL (1.2-4.9); Lymphocytes Percent Auto 30.4 % (20-40); Mean Corpuscular HGB Conc 33.6 g/dl (31.0-35.0); Mean Corpuscular Hemoglobin 26.9 pg (27.0-33.0); Mean Corpuscular Volume 80.1 fL (80.0-98.0); Mean Platelet Volume 9.7 fL (9.4-12.3); Monocytes Absolute Auto 1.1 X10*3/uL (0.1-1.2); Monocytes Percent Auto 8.6 % (2-11); Neutrophils Absolute Auto 7.5 x10*3/uL (2.0-8.3); Neutrophils Percent Auto 57.6 % (45-73); Platelet Count 264 X10*3/uL (160-400); Red Blood Count 5.42 X10*6/uL (4.20-5.50); Red Cell Distribution Width 13.2 % (11.0-16.0); White Blood Count 12.9 X10*3/uL (4.8-10.8)
[2021-10-16 01:38] VITALS: BP 192/84; PULSE 66; RESP 16; TEMP 37; O2SAT 98
[2021-10-16 02:02] LABS: Alanine Aminotransferase 27 U/L (0-31); Albumin Level 3.7 g/dL (3.5-5.0); Alkaline Phosphatase 96 U/L (39-117); Anion Gap 15 (12-20); Aspartate Amino Transferase 24 U/L (5-31); Bilirubin Direct < 0.2 mg/dL (0.0-0.5); Bilirubin Total 0.3 mg/dL (0.0-1.0); Blood Urea Nitrogen 10 mg/dL (9-16); Carbon Dioxide 25 mmol/L (22-29); Chloride 105 mmol/L (96-108); Creatinine Clr Calc Pharmacy 73.1; Estimated Glomerular Filt Rate > 60; Glucose Random 164 mg/dL (60-115); Lipase 46 U/L (8-78); Potassium 4.6 mmol/L (3.3-5.1); Sodium 140 mmol/L (135-145); Total Protein 6.7 g/dL (6.5-8.0)
[2021-10-16 02:51] LABS: Appearance Urine CLEAR; Color Urine STRAW; Glucose Urine UA NEG (NEG); Leukocyte Esterase Urine NEG (NEG); Nitrite Urine NEG (NEG); PH 7.5 (5.0-8.0); Urine Blood NEG (NEG); Urine Ketones NEG (NEG); Urine Protein NEG (NEG-TRACE)
[2021-10-16] MEDS: Famotidine/PF 20 MG/2 ML VIAL IVPUSH (03:31)
[2021-10-16] MEDS: Magnesium Hydrox/Alum Hydrox 30 ML ORAL.SUSP PO (03:31)
[2021-10-16 04:53] VITALS: BP 164/72; PULSE 66; RESP 17; O2SAT 96
== END 2021-10-16 07:24 | disposition home or self-care (01) ==
PROVIDERS: Emergency Provider Emergency Medicine
DX: K29.00 Acute gastritis without bleeding (principal); R10.13 Epigastric pain; Z79.899 Other long term (current) drug therapy; Z79.82 Long term (current) use of aspirin
CPT/HCPCS: 36415; 74176; 80048; 80076; 81003; 82272; 83690; 84484; 85025; 96361; 96374; 96375; 99284; 99285; J2270

== ENCOUNTER → 2021-10-17 13:46 | Outpatient (BNVA) | payer OTHER, SELFPAY | PROVIDERS: PCP Nurse Practitioner Primary Care; Referring Provider Nurse Practitioner Primary Care; Visit Provider Nurse Practitioner | DX: K29.60 Other gastritis without bleeding (principal); K59.04 Chronic idiopathic constipation; D12.6 Benign neoplasm of colon, unspecified | CPT/HCPCS: 99212 ==

== ENCOUNTER → 2021-11-20 13:05 | Outpatient (BNVA) | payer OTHER, SELFPAY | PROVIDERS: PCP Nurse Practitioner Primary Care; Visit Provider Internal Medicine | DX: E11.42 Type 2 diabetes mellitus with diabetic polyneuropathy (principal) | CPT/HCPCS: 82947; 83036; 99212 ==

== ENCOUNTER 2021-11-21 10:14 | Outpatient (REF) | payer OTHER, SELFPAY ==
[2021-11-21 11:59] LABS: PLT CLUMP 1; SCAN SMEAR FLAG 1
[2021-11-21 12:01] LABS: Basophils Absolute Auto 0.1 X10*3/uL (0.0-0.2); Basophils Percent Auto 0.9 % (0-2); Eosinophils Absolute Auto 0.3 X10*3/uL (0.0-0.4); Eosinophils Percent Auto 2.5 % (0-4); Hemoglobin 15.5 g/dl (12.0-16.0); Imm Gran Abs Auto 0.02 X10*3/uL (0.00-0.03); Imm Gran Pct Auto 0.2 % (0.0-0.4); Lymphocytes Absolute Auto 3.3 X10*3/uL (1.2-4.9); Lymphocytes Percent Auto 30.4 % (20-40); MANUAL DIFF FLAG SCAN; Mean Corpuscular Hemoglobin 26.7 pg (27.0-33.0); Mean Platelet Volume 11.9 fL (9.4-12.3); Monocytes Absolute Auto 0.9 X10*3/uL (0.1-1.2); Neutrophils Absolute Auto 6.2 x10*3/uL (2.0-8.3); Red Cell Distribution Width 12.6 % (11.0-16.0)
[2021-11-21 12:05] LABS: White Blood Count 10.8 X10*3/uL (4.8-10.8)
[2021-11-21 12:42] LABS: Creatinine Urine 166.69 mg/dL; Microalbum/Creatinine Ratio Ur 55.1 ug/mg cr
[2021-11-21 13:06] LABS: Alanine Aminotransferase 32 U/L (0-31); Albumin Level 4.1 g/dL (3.5-5.0); Alkaline Phosphatase 117 U/L (39-117); Anion Gap 22 (12-20); Aspartate Amino Transferase 28 U/L (5-31); Bilirubin Total 0.6 mg/dL (0.0-1.0); Blood Urea Nitrogen 13 mg/dL (9-16); Calcium 8.9 mg/dL (8.4-10.2); Carbon Dioxide 15 mmol/L (22-29); Chloride 107 mmol/L (96-108); Cholesterol 244 mg/dL; Estimated Glomerular Filt Rate > 60; Glucose Random 106 mg/dL (60-115); HDL Cholesterol 50 mg/dL; LDL Cholesterol Calculated 167 mg/dl; Phosphorus 3.2 mg/dL (2.7-4.5); Potassium 4.6 mmol/L (3.3-5.1); Sodium 139 mmol/L (135-145); Total Protein 7.8 g/dL (6.5-8.0); Triglycerides 139 mg/dL
[2021-11-21 14:04] LABS: Free T4 (Free Thyroxine) 1.39 ng/dL (0.71-1.85)
[2021-11-21 14:19] LABS: Platelet Count 190 X10*3/uL (160-400)
[2021-11-21 14:20] LABS: SLIDE REVIEW VERIFIED
[2021-11-24 01:02] LABS: Calcium (PTHI) 9.7 mg/dL (8.6-10.4); PTHI 76 pg/mL (16-77)
[2021-11-24 01:07] LABS: LDL Cholesterol Direct 170 mg/dL (<100)
== END 2021-11-21 10:15 | disposition home or self-care (01) ==
LOC: HO.LAB 10:14
PROVIDERS: Nurse Practitioner; PCP Nurse Practitioner Primary Care; Visit Provider Internal Medicine
DX: K29.60 Other gastritis without bleeding (principal); E04.2 Nontoxic multinodular goiter; E21.3 Hyperparathyroidism, unspecified; E11.9 Type 2 diabetes mellitus without complications
CPT/HCPCS: 36415; 80053; 80061; 82043; 82306; 83721; 83970; 84100; 84439; 84443; 85025

== ENCOUNTER → 2021-11-26 13:34 | Outpatient (BNVA) | payer OTHER, SELFPAY | PROVIDERS: PCP Nurse Practitioner Primary Care; Visit Provider Registered Nurse Diabetes Educator | DX: E11.9 Type 2 diabetes mellitus without complications (principal) | CPT/HCPCS: 99211 ==

== ENCOUNTER → 2021-12-10 13:39 | Outpatient (BNVA) | payer OTHER, SELFPAY | PROVIDERS: PCP Nurse Practitioner Primary Care; Visit Provider Registered Nurse Diabetes Educator | DX: E11.42 Type 2 diabetes mellitus with diabetic polyneuropathy (principal); Z79.4 Long term (current) use of insulin | CPT/HCPCS: 99211 ==

== ENCOUNTER 2022-01-08 15:16 | Emergency (ER) | payer OTHER, SELFPAY ==
--- NOTE | ~2022-01-08 | CT_ITS ---
EXAMINATION: CT ABDOMEN AND PELVIS WITH CONTRAST CLINICAL INFORMATION: Right lower quadrant abdominal pain. COMPARISON: 10/16/2021 TECHNIQUE: Multidetector volumetric images were obtained from the superior aspect of the liver through the pubic symphysis following administration 85 mL of Omnipaque 350 intravenous contrast. Sagittal and coronal reformatted images were obtained on the technologist's workstation. Oral contrast: No This CT examination was performed using dose optimization techniques as appropriate, variously including the following: *Automated exposure control *Adjustment of mA and/or kV according to patient size (this includes techniques or standardized protocols for targeted exams where dose is matched to indication/reason for exam; i.e. extremities or head) *Use of iterative reconstruction technique DLP: 797 mGy-cm FINDINGS: LUNG BASES: Bibasilar atelectasis. The visualized cardiac structures are unremarkable. LIVER, GALLBLADDER, AND BILIARY TREE: The liver is normal in size, shape, and attenuation. No focal hepatic lesion or biliary ductal dilatation is present. Cholecystectomy. PANCREAS: Unremarkable. SPLEEN: Unremarkable. ADRENAL GLANDS: Unremarkable. KIDNEYS AND URETERS: The kidneys are normal in size, shape, and attenuation. No hydronephrosis, hydroureter, or calculi seen. No perinephric stranding. Left renal simple cysts. No follow-up recommended. BLADDER: Unremarkable. GASTROINTESTINAL TRACT: The stomach is unremarkable. Normal caliber of the small bowel. No obstruction. Colonic diverticulosis present which is greatest throughout the descending and sigmoid colon. No diverticulitis. Appendicolith in the appendix. Normal size appendix with no inflammation. ABDOMINAL WALL: No significant hernia is appreciated. LYMPH NODES: Normal. VASCULAR: Unremarkable. PELVIC VISCERA: Uterus not seen. No adnexal mass. OSSEOUS STRUCTURES: No acute or suspicious osseous abnormality. Mild degenerative changes of the spine.. CT/CT abdomen pelvis w IV con IMPRESSION: No acute findings in the abdomen or pelvis. Normal appendix. Colonic diverticulosis without diverticulitis. Fleischner guidelines were followed.
[2022-01-08 16:31] VITALS: BP 140/80; PULSE 63; RESP 19; TEMP 36.6; O2SAT 96; BMI 36.0
[2022-01-08 16:56] LABS: MANUAL DIFF FLAG NO
[2022-01-08 17:03] LABS: Basophils Absolute Auto 0.1 X10*3/uL (0.0-0.2); Basophils Percent Auto 0.5 % (0-2); Eosinophils Absolute Auto 0.2 X10*3/uL (0.0-0.4); Eosinophils Percent Auto 1.7 % (0-4); Hematocrit 44.1 % (37.0-47.0); Hemoglobin 14.2 g/dl (12.0-16.0); Imm Gran Abs Auto 0.05 X10*3/uL (0.00-0.03); Imm Gran Pct Auto 0.4 % (0.0-0.4); Lymphocytes Absolute Auto 2.5 X10*3/uL (1.2-4.9); Mean Corpuscular HGB Conc 32.2 g/dl (31.0-35.0); Mean Corpuscular Hemoglobin 26.5 pg (27.0-33.0); Mean Corpuscular Volume 82.3 fL (80.0-98.0); Mean Platelet Volume 9.8 fL (9.4-12.3); Monocytes Absolute Auto 0.9 X10*3/uL (0.1-1.2); Monocytes Percent Auto 7.1 % (2-11); Neutrophils Absolute Auto 9.3 x10*3/uL (2.0-8.3); Neutrophils Percent Auto 71.3 % (45-73); Platelet Count 258 X10*3/uL (160-400); Red Blood Count 5.36 X10*6/uL (4.20-5.50); Red Cell Distribution Width 13.9 % (11.0-16.0)
[2022-01-08 17:05] LABS: Appearance Urine Clear; Color Urine Yellow; Glucose Urine UA >=1000 mg/dL (Negative); Leukocyte Esterase Urine Negative (Negative); Nitrite Urine Negative (Negative); Specific Gravity - Urine 1.025 (1.005-1.025); UMIC TRIGGER UACC YES; Urine Blood Negative (Negative); Urine Ketones Negative (Negative); Urine Protein Negative (Neg-Trace)
[2022-01-08 17:12] LABS: Bacteria Urine None Seen (None Seen); Hyaline Casts Urine 0-2 /LPF (0-2); RBC Urine 0-2 /HPF (0-2); Squamous Epithelial Cell Urine 0-2 /HPF (0-2); WBC Urine 0-5 /HPF (0-5)
[2022-01-08 17:20] LABS: Alanine Aminotransferase 15 U/L (0-31); Albumin Level 4.1 g/dL (3.5-5.0); Alkaline Phosphatase 93 U/L (39-117); Anion Gap 15 (12-20); Aspartate Amino Transferase 17 U/L (5-31); Bilirubin Direct 0.2 mg/dL (0.0-0.5); Bilirubin Total 0.4 mg/dL (0.0-1.0); Blood Urea Nitrogen 12 mg/dL (9-16); Calcium 9.2 mg/dL (8.4-10.2); Carbon Dioxide 24 mmol/L (22-29); Chloride 108 mmol/L (96-108); Creatinine Clr Calc Pharmacy 65.9; Estimated Glomerular Filt Rate > 60; Glucose Random 150 mg/dL (60-115); Lipase 52 U/L (8-78); Potassium 4.2 mmol/L (3.3-5.1); Sodium 143 mmol/L (135-145); Total Protein 7.4 g/dL (6.5-8.0)
[2022-01-08 22:34] VITALS: BP 173/67; PULSE 59; RESP 18; TEMP 36.8; O2SAT 98
[2022-01-08] MEDS: Acetaminophen 325 MG TABLET 650 MG PO (23:41)
--- NOTE | 2022-01-09 00:13 | ED.ABDPAIN ---
HPI - Abdominal Pain General Chief Complaint: Abdominal Pain Stated Complaint: lower abd pain Time Seen by Provider: 01/09/22 00:08 Source: patient Mode of arrival: ambulatory Limitations: no limitations History of Present Illness HPI narrative: patient with history of diabetes hypertension, chronic constipation comes here with lower abdominal pain started since yesterday with associated with nausea pain is in lower abdomen got worse today patient had loose bowels today about 5 times no fever no chills Related Data Home Medications Medication Instructions Recorded Confirmed aspirin 325 mg tablet,delayed 325 mg PO DAILY 02/28/20 12/11/21 release diclofenac sodium 75 mg 75 mg PO BID 02/28/20 12/11/21 tablet,delayed release mecobalamin (vitamin B12) 1,000 1,000 mcg PO DAILY 02/28/20 12/11/21 mcg chewable tablet hydrochlorothiazide 50 mg tablet 50 mg PO DAILY 02/29/20 12/11/21 alcohol swabs pad topical 03/19/20 12/11/21 blood sugar diagnostic #10 ea 03/19/20 12/11/21 fluticasone propionate 110 0 mcg inhalation 03/19/20 12/11/21 mcg/actuation HFA aerosol inhaler furosemide 20 mg tablet 20 mg PO QAM 03/19/20 12/11/21 hydroxyzine HCl 50 mg tablet 50 mg PO Q8H PRN anxiety 03/19/20 12/11/21 lisinopril 40 mg tablet 40 mg PO DAILY 03/19/20 12/11/21 multivitamin-ferrous 1 tab PO QAM 03/19/20 12/11/21 fumarate-folic acid 18 mg-400 mcg tablet tramadol 50 mg tablet 50 mg PO TID PRN Pain 03/19/20 12/11/21 metoprolol succinate 200 mg 200 mg PO DAILY 07/09/20 12/11/21 tablet,extended release 24 hr trazodone 150 mg tablet 150 mg PO 07/09/20 12/11/21 lancets 33 gauge (Jenelle Decker #100 ea 04/17/21 12/11/21 Plus Lancet) albuterol sulfate 90 mcg/actuation 0 mcg inhalation 10/17/21 12/11/21 aerosol inhaler (Ventolin HFA) verapamil 180 mg tablet,extended 0 mg PO 10/17/21 12/11/21 release Previous Rx's Medication Instructions Recorded pen needle, diabetic 32 gauge x 1 ea subcut DAILY 90 days #90 ea 03/29/20 (BD Ultra-Fine Sasha Pen Needle) clonidine HCl 0.1 mg tablet 0.2 mg PO BEDTIME #60 tabs 07/03/20 acetaminophen 650 mg 650 mg PO Q8H PRN pain #90 tabs 09/11/20 tablet,extended release meclizine 25 mg tablet 25 mg PO DAILY PRN dizziness #20 02/11/21 tabs cyclobenzaprine 10 mg tablet 10 mg PO TID PRN muscle spasm #10 06/05/21 tabs insulin glargine 100 unit/mL (3 34 unit (0.34 mL) subcut QPM #15 mL 08/01/21 mL) subcutaneous pen (Lantus Solostar U-100 Insulin) dexlansoprazole 60 mg 60 mg PO DAILY 30 days #30 caps 10/17/21 capsule,biphase delayed release (Dexilant) plecanatide 3 mg tablet (Trulance) 3 mg PO DAILY #30 tabs 10/17/21 cholecalciferol (vitamin D3) 50 50 mcg PO QAM 30 days #30 tabs 11/20/21 mcg (2,000 unit) tablet empagliflozin 25 mg tablet 25 mg PO DAILY 30 days #30 tabs 11/20/21 (Jardiance) metformin 500 mg tablet,extended 1,000 mg PO BID 30 days #120 tabs 11/20/21 release 24 hr pioglitazone 15 mg tablet 15 mg PO DAILY 30 days #30 tabs 11/20/21 semaglutide 0.25 mg or 0.5 mg (2 0.5 mg (0.4 mL) subcut QWEEK 4 11/20/21 mg/1.5 mL) subcutaneous pen doses #1.5 mL injector (Ozempic) levothyroxine 75 mcg tablet 75 mcg PO QAM #30 tabs 11/25/21 rosuvastatin 40 mg tablet 40 mg PO DAILY 30 days #30 tabs 11/27/21 gabapentin 100 mg capsule 300 mg PO BEDTIME #90 caps 12/24/21 amoxicillin 875 mg-potassium 1 tab PO BID #20 tabs 01/09/22 clavulanate 125 mg tablet oxycodone 5 mg tablet 5 mg PO Q6H PRN pain #20 tabs 01/09/22 Allergies Allergy/AdvReac Type Severity Reaction Status Date / Time No Known Allergies Allergy Verified 12/11/21 15:14 [No Known Allergies*] Review of Systems Review of Systems Yes all other systems are reviewed and are negative [facility] Past Medical History Medical History BMI 35.0-35.9,adult Cervical cancer Constipation Depression with anxiety Diabetes mellitus with hyperglycemia Essential hypertension Fibromyalgia GERD (gastroesophageal reflux disease) Meir's disease HLD (hyperlipidemia) HTN (hypertension) Hyperlipidemia LDL goal <100 Hyperparathyroidism Leg edema, left Multinodular thyroid Osteoarthritis of left knee Osteopenia Other obesity due to excess calories Other specified acquired hypothyroidism Skin lesion of chest wall T2DM (type 2 diabetes mellitus) Thyroid nodule Type 2 diabetes mellitus with diabetic polyneuropathy Vitamin B12 deficiency Vitamin D deficiency Surgical History History of arthroplasty of right knee History of bilateral carpal tunnel release History of cholecystectomy History of esophagogastroduodenoscopy (EGD) Hx of arthroscopy of left knee Hx of bilateral oophorectomy Hx of colonoscopy Hx of foot surgery Hx of hysterectomy Family History Family History Father CVD (cardiovascular disease) Diabetes mellitus Stroke Mother Stroke Diabetes mellitus Breast cancer Hyperthyroidism Social History Social History Household Members: None Housing: House Are you a primary congregational care pastor to a significant other at home: No Do you presently have visiting nurse or other home services: No Alcohol intake: current Patient Tobacco Use Status: Never used Tobacco Use of substances other than those prescribed or required for medical reasons: No Advance Directives: No Advance Directives Information Provided: No service: No 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al status: disabled 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: Right Handed Physical Exam ED Vital Signs: Vital Signs - 24 hr 01/08/22 16:31 01/08/22 22:34 Temperature 98 F 98.3 F Pulse Rate 63 59 Respiratory Rate 19 18 Blood Pressure 140/80 H 173/67 H Pulse Oximetry 96 98 Oxygen Delivery Method Room Air Room Air BMI result Body Mass Index 36.0 Appearance: Alert. Oriented X3. No acute distress. Eyes: no pallor or icterus ENT: Pharynx normal. Oral Mucosa moist Neck: Normal inspection. Neck supple. CVS: Normal heart rate and rhythm. Pulses normal. Respiratory: No respiratory distress. Equal air entry bilateral, no wheezing/rales/rhonchi Abdomen: Soft diffuse lower abdominal tenderness no rebound tenderness or guarding Bowel sounds are present, no mass palpable, no CVA tenderness Skin: Skin warm and dry. Normal skin color. Normal skin turgor. Extremities: No lower extremity edema. No calf tenderness Neuro: Oriented X 3. No motor deficit. MDM - Abdominal Pain MDM Narrative Medical decision making narrative: patient diffuse lower abdominal pain slight leukocytosis CT scan showed diverticulosis will give her Augmentin for possible inflammation as patient been having increased pain advised to follow-up with PCP Lab Data Attestation: I reviewed the patient's lab results. Result diagrams: 01/08/22 16:52 01/08/22 16:52 Labs: Lab Results 01/08/22 01/08/22 01/08/22 Range/Units 16:52 16:52 16:52 WBC 13.0 H (4.8-10.8) X10*3/uL RBC 5.36 (4.20-5.50) X10*6/uL Hgb 14.2 (12.0-16.0) g/dl Hct 44.1 (37.0-47.0) % MCV 82.3 (80.0-98.0) fL MCH 26.5 L (27.0-33.0) pg MCHC 32.2 (31.0-35.0) g/dl RDW 13.9 (11.0-16.0) % Plt Count 258 D (160-400) X10*3/uL MPV 9.8 (9.4-12.3) fL Immature Gran % (Auto) 0.4 (0.0-0.4) % Neut % (Auto) 71.3 (45-73) % Lymph % (Auto) 19.0 L (20-40) % [place] % (Auto) 7.1 (2-11) % Eos % (Auto) 1.7 (0-4) % Baso % (Auto) 0.5 (0-2) % Lymph # (Auto) 2.5 (1.2-4.9) X10*3/uL [place] # (Auto) 0.9 (0.1-1.2) X10*3/uL Eos # (Auto) 0.2 (0.0-0.4) X10*3/uL Baso # (Auto) 0.1 (0.0-0.2) X10*3/uL Abs Immat Gran (auto) 0.05 H (0.00-0.03) X10*3/uL Absolute Neuts (auto) 9.3 H (2.0-8.3) x10*3/uL Absolute Nucleated RBC 0.000 (0.0-0.012) X10*3/uL Nucleated RBC % (auto) 0.0 (0.0-0.2) /100WBC Sodium 143 (135-145) mmol/L Potassium 4.2 (3.3-5.1) mmol/L Chloride 108 (96-108) mmol/L Carbon Dioxide 24 (22-29) mmol/L Anion Gap 15 (12-20) BUN 12 (9-16) mg/dL Creatinine 0.86 (0.5-1.4) mg/dL Estim Creat Clear Calc 65.9 Estimated GFR > 60 Random Glucose 150 H (60-115) mg/dL Calcium 9.2 (8.4-10.2) mg/dL Total Bilirubin 0.4 (0.0-1.0) mg/dL Direct Bilirubin 0.2 (0.0-0.5) mg/dL AST 17 (5-31) U/L ALT 15 (0-31) U/L Alkaline Phosphatase 93 D (39-117) U/L Total Protein 7.4 (6.5-8.0) g/dL Albumin 4.1 (3.5-5.0) g/dL Lipase 52 (8-78) U/L Urine Color Yellow Urine Appearance Clear Urine pH 6.0 (5.0-9.0) Ur Specific [place] 1.025 (1.005-1.025) Urine Protein Negative (Neg-Trace) mg/dL Urine Glucose (UA) >=1000 H (Negative) mg/dL Urine Ketones Negative (Negative) mg/dL Urine Blood Negative (Negative) Urine Nitrite Negative (Negative) Ur Leukocyte Esterase Negative (Negative) Urine RBC 0-2 (0-2) /HPF Urine WBC 0-5 (0-5) /HPF Ur Squamous Epith Cells 0-2 (0-2) /HPF Urine Bacteria None Seen (None Seen) Hyaline Casts 0-2 (0-2) /LPF Discharge Plan Discharge Clinical Impression: Diverticulosis Patient Disposition: Home, Self-Care Instructions: Diverticulosis (ED) Additional Instructions: avoid constipation take pain medication as prescribed antibiotic as advised for possible infection follow with PCP as needed Prescriptions: New amoxicillin-pot clavulanate 875-125 mg tablet 1 tab PO BID Qty: 20 0RF oxycodone 5 mg tablet 5 mg PO Q6H PRN (Reason: pain) Qty: 20 0RF Rx Instructions: Partial Fill upon patient request. No Action pen needle, diabetic [BD Ultra-Fine Sasha Pen Needle] 32 gauge x 5/32 needle 1 ea subcut DAILY 90 Days Qty: 90 3RF acetaminophen 650 mg tablet extended release 650 mg PO Q8H PRN (Reason: pain) Qty: 90 3RF Lantus Solostar U-100 Insulin 100 unit/mL (3 mL) insulin pen 34 unit subcut QPM Qty: 15 4RF levothyroxine 75 mcg tablet 75 mcg PO QAM Qty: 30 6RF rosuvastatin 40 mg tablet 40 mg PO DAILY 30 Days Qty: 30 11RF gabapentin 100 mg capsule 300 mg PO BEDTIME Qty: 90 3RF meclizine 25 mg tablet 25 mg PO DAILY PRN (Reason: dizziness) Qty: 20 0RF cyclobenzaprine 10 mg tablet 10 mg PO TID PRN (Reason: muscle spasm) Qty: 10 0RF hydrochlorothiazide 50 mg tablet 50 mg PO DAILY tramadol 50 mg tablet 50 mg PO TID PRN (Reason: Pain) Flovent HFA 110 mcg/actuation HFA aerosol inhaler 0 mcg inhalation lisinopril 40 mg tablet 40 mg PO DAILY furosemide 20 mg tablet 20 mg PO QAM Certavite-Antioxidant 18-400 mg-mcg tablet 1 tab PO QAM alcohol swabs Pads, Medicated topical (DME) FreeStyle Lite Strips Strip See Rx Instructions Not Applicable BID Qty: 10 Rx Instructions: As directed hydroxyzine HCl 50 mg tablet 50 mg PO Q8H PRN (Reason: anxiety) trazodone 150 mg tablet 150 mg PO clonidine HCl 0.1 mg tablet 0.2 mg PO BEDTIME Qty: 60 11RF mecobalamin (vitamin B12) 1,000 mcg tablet,chewable 1,000 mcg PO DAILY diclofenac sodium 75 mg tablet,delayed release (DR/EC) 75 mg PO BID aspirin 325 mg tablet,delayed release (DR/EC) 325 mg PO DAILY metoprolol succinate 200 mg tablet extended release 24 hr 200 mg PO DAILY (DME) lancets [OneTouch Delica Plus Lancet] 33 gauge misc See Rx Instructions topical .MEDSUPPLY Qty: 100 Rx Instructions: As directed albuterol sulfate [Ventolin HFA] 90 mcg/actuation HFA aerosol inhaler 0 mcg inhalation verapamil 180 mg tablet extended release 0 mg PO dexlansoprazole [Dexilant] 60 mg capsule,biphase delayed releas 60 mg PO DAILY 30 Days Qty: 30 3RF Trulance 3 mg tablet 3 mg PO DAILY Qty: 30 3RF metformin 500 mg tablet extended release 24 hr 1,000 mg PO BID 30 Days Qty: 120 11RF Ozempic 0.25 mg or 0.5 mg(2 mg/1.5 mL) pen injector 0.5 mg subcut QWEEK Qty: 1.5 11RF Rx Instructions: Start with 0.25 mg once a week x 4 weeks, then increase to 0.5 mg once a week thereafter Jardiance 25 mg tablet 25 mg PO DAILY 30 Days Qty: 30 11RF cholecalciferol (vitamin D3) 50 mcg (2,000 unit) tablet 50 mcg PO QAM 30 Days Qty: 30 11RF pioglitazone 15 mg tablet 15 mg PO DAILY 30 Days Qty: 30 11RF Interventions: ED Discharge Assessment Last Done: 01/09/22 02:24 Discharge Date/Time: 01/09/22 02:25
[2022-01-09] MEDS: Morphine Sulfate 4 MG/ML CARTRIDGE IVPUSH (00:53)
[2022-01-09] MEDS: ondansetron HCL 4 MG/2 ML VIAL IVPUSH (00:53)
[2022-01-09] MEDS: 0.9 % Sodium Chloride 1,000 ML 999 ML IV (00:53)
[2022-01-09] MEDS: iohexoL 350 MG/ML 100 ML INFUS..BTL IV (01:13)
[2022-01-09] MEDS: Amoxicillin/Potassium Clav 875 MG TABLET PO (02:07)
--- NOTE | 2022-01-09 02:22 | PC.NURSE ---
I assumed care of Lois upon her arrival to ED bed 6. She presented for evaluation of lwoer abdominal pain x 24 hours. No nausea. NO vomiting. No chest pain. No SOB. IV access and labs were obtained. Ordered IV meds administered and pt went to CT via stretcher. SHe returnef from CT without incident and was taking ice chis PO without difficulty. SHe has been discharged at this time. She vebralized an understanding of all DC orders.
== END 2022-01-09 02:25 | disposition home or self-care (01) ==
PROVIDERS: Emergency Provider Internal Medicine
DX: K57.30 Diverticulosis of large intestine without perforation or abscess without bleeding (principal); R10.32 Left lower quadrant pain; Z79.899 Other long term (current) drug therapy
CPT/HCPCS: 36415; 74177; 80048; 80076; 81001; 81003; 83690; 85025; 96374; 96375; 99284; J2270; J2405; Q9967

== ENCOUNTER 2022-03-03 12:04 | Observation (INO) | payer OTHER, SELFPAY ==
[2022-03-03] VITALS (8 sets, daily range): BP systolic 115–188; BP diastolic 55–80; PULSE 54–98; RESP 16–23; TEMP 36.6–37; O2SAT 94–99; BMI 35.7
--- NOTE | ~2022-03-03 | XR_ITS ---
EXAMINATION: XR CHEST CLINICAL INFORMATION: Shortness of breath COMPARISON: 02/11/2021 TECHNIQUE: Frontal view of the chest was obtained. FINDINGS: Low lung volumes. No focal consolidation or mass. No pleural effusion or pneumothorax. Normal heart size. Degenerative changes of the right shoulder and spine. XR/XR chest 1V IMPRESSION: No acute pulmonary disease.
--- NOTE | 2022-03-03 12:28 | ECG_ITS ---
Test Reason : sob Blood Pressure : / mmHG Vent. Rate : 054 BPM Atrial Rate : 054 BPM P-R Int : 128 ms QRS Dur : 096 ms QT Int : 484 ms P-R-T Axes : 030 022 060 degrees QTc Int : 458 ms Sinus bradycardia Low voltage QRS Borderline ECG When compared with ECG of 10-FEB-2021 23:30, No significant change was found Referred By: Vinod Moreno Electronically Signed By:Joe Purcell
--- NOTE | 2022-03-03 12:34 | PC.NURSE ---
patient a/ox4 . jailene . heart rate regular at 58 beats per minute . breathing labored . wheezing noted in upper lobes . lungs diminished throughout , tightness noted throughout . Dr Pvaan Frank at bedside . Productive dry cough noted , patient reports she has had this since yesterday . skin pink warm and dry . abdomen soft . patient reports pain level of 5 out of 10 in chest when she coughs that sometimes radiates to her back . R.T aware of patient and providers upcoming orders . IV placed in right A.C . patient placed in telemetry monitor . patient aware of plan of care .
--- NOTE | 2022-03-03 13:01 | ED_ITS ---
HPI - SOB/Dyspnea General Chief Complaint: Dyspnea Stated Complaint: DIFF BREATHING PER EMS Time Seen by Provider: 03/03/22 12:21 Source: patient Limitations: other (Difficulty speaking secondary to dyspnea.) History of Present Illness HPI Narrative: Patient with significant dyspnea with recent cough. She apparently has a history of asthma and COPD although no prior history of tobacco use. Apparently with cough and sputum over the last several days. Unclear if there has been a fever. Outpatient therapy not helping. She was treated by EMS with an albuterol nebulizer. Her oxygen saturation has been good Related Data Home Medications Medication Instructions Recorded Confirmed aspirin 325 mg tablet,delayed 325 mg PO DAILY 02/28/20 12/11/21 release diclofenac sodium 75 mg 75 mg PO BID 02/28/20 12/11/21 tablet,delayed release mecobalamin (vitamin B12) 1,000 1,000 mcg PO DAILY 02/28/20 12/11/21 mcg chewable tablet hydrochlorothiazide 50 mg tablet 50 mg PO DAILY 02/29/20 12/11/21 alcohol swabs pad topical 03/19/20 12/11/21 blood sugar diagnostic #10 ea 03/19/20 12/11/21 fluticasone propionate 110 0 mcg inhalation 03/19/20 12/11/21 mcg/actuation HFA aerosol inhaler furosemide 20 mg tablet 20 mg PO QAM 03/19/20 12/11/21 hydroxyzine HCl 50 mg tablet 50 mg PO Q8H PRN anxiety 03/19/20 12/11/21 lisinopril 40 mg tablet 40 mg PO DAILY 03/19/20 12/11/21 multivitamin-ferrous 1 tab PO QAM 03/19/20 12/11/21 fumarate-folic acid 18 mg-400 mcg tablet tramadol 50 mg tablet 50 mg PO TID PRN Pain 03/19/20 12/11/21 metoprolol succinate 200 mg 200 mg PO DAILY 07/09/20 12/11/21 tablet,extended release 24 hr trazodone 150 mg tablet 150 mg PO 07/09/20 12/11/21 lancets 33 gauge (Jenelle Decker #100 ea 04/17/21 12/11/21 Plus Lancet) albuterol sulfate 90 mcg/actuation 0 mcg inhalation 10/17/21 12/11/21 aerosol inhaler (Ventolin HFA) verapamil 180 mg tablet,extended 0 mg PO 10/17/21 12/11/21 release Previous Rx's Medication Instructions Recorded pen needle, diabetic 32 gauge x 1 ea subcut DAILY 90 days #90 ea 03/29/20 (BD Ultra-Fine Sasha Pen Needle) clonidine HCl 0.1 mg tablet 0.2 mg PO BEDTIME #60 tabs 07/03/20 acetaminophen 650 mg 650 mg PO Q8H PRN pain #90 tabs 09/11/20 tablet,extended release meclizine 25 mg tablet 25 mg PO DAILY PRN dizziness #20 02/11/21 tabs cyclobenzaprine 10 mg tablet 10 mg PO TID PRN muscle spasm #10 06/05/21 tabs insulin glargine 100 unit/mL (3 34 unit (0.34 mL) subcut QPM #15 mL 08/01/21 mL) subcutaneous pen (Lantus Solostar U-100 Insulin) dexlansoprazole 60 mg 60 mg PO DAILY 30 days #30 caps 10/17/21 capsule,biphase delayed release (Dexilant) plecanatide 3 mg tablet (Trulance) 3 mg PO DAILY #30 tabs 10/17/21 cholecalciferol (vitamin D3) 50 50 mcg PO QAM 30 days #30 tabs 11/20/21 mcg (2,000 unit) tablet empagliflozin 25 mg tablet 25 mg PO DAILY 30 days #30 tabs 11/20/21 (Jardiance) metformin 500 mg tablet,extended 1,000 mg PO BID 30 days #120 tabs 11/20/21 release 24 hr pioglitazone 15 mg tablet 15 mg PO DAILY 30 days #30 tabs 11/20/21 semaglutide 0.25 mg or 0.5 mg (2 0.5 mg (0.4 mL) subcut QWEEK 4 11/20/21 mg/1.5 mL) subcutaneous pen doses #1.5 mL injector (Ozempic) levothyroxine 75 mcg tablet 75 mcg PO QAM #30 tabs 11/25/21 rosuvastatin 40 mg tablet 40 mg PO DAILY 30 days #30 tabs 11/27/21 gabapentin 100 mg capsule 300 mg PO BEDTIME #90 caps 12/24/21 amoxicillin 875 mg-potassium 1 tab PO BID #20 tabs 01/09/22 clavulanate 125 mg tablet oxycodone 5 mg tablet 5 mg PO Q6H PRN pain #20 tabs 01/09/22 Allergies Allergy/AdvReac Type Severity Reaction Status Date / Time No Known Allergies Allergy Verified 12/11/21 15:14 [No Known Allergies*] Review of Systems Constitutional: Comments: No fevers or chills Cardiovascular: Comments: Chest pain with breathing and coughing Respiratory: Comments: Severe dyspnea with cough Gastrointestinal: Comments: No nausea vomiting or abdominal pain Musculoskeletal: Comments: No leg swelling Integumentary/Breasts: Comments: No rash Neurologic: Comments: No focal neuro deficit [facility] Past Medical History Medical History BMI 35.0-35.9,adult Cervical cancer Constipation Depression with anxiety Diabetes mellitus with hyperglycemia Essential hypertension Fibromyalgia GERD (gastroesophageal reflux disease) Meir's disease HLD (hyperlipidemia) HTN (hypertension) Hyperlipidemia LDL goal <100 Hyperparathyroidism Leg edema, left Multinodular thyroid Osteoarthritis of left knee Osteopenia Other obesity due to excess calories Other specified acquired hypothyroidism Skin lesion of chest wall T2DM (type 2 diabetes mellitus) Thyroid nodule Type 2 diabetes mellitus with diabetic polyneuropathy Vitamin B12 deficiency Vitamin D deficiency Surgical History History of arthroplasty of right knee History of bilateral carpal tunnel release History of cholecystectomy History of esophagogastroduodenoscopy (EGD) Hx of arthroscopy of left knee Hx of bilateral oophorectomy Hx of colonoscopy Hx of foot surgery Hx of hysterectomy Family History Family History Father CVD (cardiovascular disease) Diabetes mellitus Stroke Mother Stroke Diabetes mellitus Breast cancer Hyperthyroidism Social History Social History Household Members: None Housing: House Are you a primary restorative care technician to a significant other at home: No Do you presently have visiting nurse or other home services: No Alcohol intake: current Alcohol intake frequency: holidays/special occasions only Patient Tobacco Use Status: Never used Tobacco Advance Directives: No Advance Directives Information Provided: Yes service: No 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al status: disabled 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: Right Handed Physical Exam Vital Signs: Vital Signs: Last Vital Signs Temp 98.0 F 12/19/22 16:36 Pulse 87 03/03/22 16:36 Resp 16 03/03/22 16:36 BP 115/61 03/03/22 16:36 Pulse Ox 94 03/03/22 16:36 O2 Del Method 03/03/22 16:36 O2 Flow Rate 1 03/03/22 16:36 BMI result Body Mass Index 35.7 Const: Other: Awake and alert. Appears fatigued with increased work of breathing, although oxygen saturation is 99% on arrival Resp: Other: Diminished bilaterally with expiratory wheezes. No rales. Cardio: Other: Regular rate and rhythm without murmurs rubs or gallops. Mildly bradycardic GI: Other: Soft nontender nondistended Skin: Other: Warm pink and dry without rash Neuro: Other: Grossly non focal neuro exam Extrem: Other: No calf tenderness. Mild bilateral pedal edema patient states his baseline Course Course Course Narrative: Will treat with high-dose albuterol as well as Atrovent. IV Solu-Medrol BiPAP Close observation 14:39. Workup in the emergency department shows positive rhino virus on respiratory panel. Chest x-ray on my interpretation shows no obvious infiltrates or effusions. White count is 11. Electrolytes are normal Patient states she feels better and would like to trial off the BiPAP. Will re-evaluate after weaned off BiPAP 15:53. Patient did not tolerate being off BiPAP. She became dyspneic and requested to go back on. She is comfortable now on the BiPAP. I will add Ativan and do a blood gas. ICU consult. 16:43. Blood gas shows low pCO2 consistent with hyperventilation. She is now off the BiPAP after dose of Ativan. She is more comfortable but requesting more Ativan. She has been seen by ICU Dr. Villalta. She is stable for the medical floor. Medications Administered Discontinued Medications Generic Name Dose Route Start Last Admin Trade Name Freq PRN Reason Stop Dose Admin Albuterol Sulfate 7.5 mg/ 10 mg 03/03/22 12:46 03/03/22 13:18 Albuterol Sulfate 2.5 mg INHALE 03/03/22 12:47 10 mg ONCE ONE Administration Sodium Chloride 500 mls @ 500 mls/hr 03/03/22 13:00 03/03/22 15:08 Ns IV 03/03/22 13:59 Infused .Q1H APARNA Infusion Ipratropium [place] 0.5 mg 03/03/22 12:46 03/03/22 13:18 Ipratropium [place] 0.5 Mg/2.5 Ml Solution INHALE 03/03/22 12:47 0.5 mg ONCE ONE Administration Ketorolac Tromethamine 30 mg 03/03/22 14:45 03/03/22 15:44 Ketorolac Tromethamine 15 Mg/Ml Vial IVPUSH 03/03/22 14:46 30 mg ONCE ONE Administration Lorazepam 0.5 mg 03/03/22 15:43 03/03/22 16:10 Lorazepam 2 Mg/Ml Vial IVPUSH 03/03/22 15:44 0.5 mg ONCE ONE Administration Methylprednisolone Sodium Succinate 125 mg 03/03/22 12:46 03/03/22 13:09 Methylprednisolone Sod Succ 125 Mg/2 Ml Vial IVPUSH 03/03/22 12:47 125 mg ONCE ONE Administration Medical Decision Making Medical Decision Making MDM Narrative: Patient with asthma or COPD exacerbation. Likely caused by respiratory infection. Rule out pneumonia versus bronchitis versus viral syndrome. Lab Data Result Diagrams: 03/03/22 13:07 03/03/22 13:07 Labs: Lab Results 03/03/22 03/03/22 03/03/22 Range/Units 12:59 13:07 13:07 WBC 11.4 H (4.8-10.8) X10*3/uL RBC 5.98 H (4.20-5.50) X10*6/uL Hgb 15.7 (12.0-16.0) g/dl Hct 48.3 H (37.0-47.0) % MCV 80.8 (80.0-98.0) fL MCH 26.3 L (27.0-33.0) pg MCHC 32.5 (31.0-35.0) g/dl RDW 13.8 (11.0-16.0) % Plt Count 299 (160-400) X10*3/uL MPV 9.6 (9.4-12.3) fL Immature Gran % (Auto) 0.3 (0.0-0.4) % Neut % (Auto) 57.2 (45-73) % Lymph % (Auto) 29.3 (20-40) % [place] % (Auto) 8.8 (2-11) % Eos % (Auto) 3.7 (0-4) % Baso % (Auto) 0.7 (0-2) % Lymph # (Auto) 3.4 (1.2-4.9) X10*3/uL [place] # (Auto) 1.0 (0.1-1.2) X10*3/uL Eos # (Auto) 0.4 (0.0-0.4) X10*3/uL Baso # (Auto) 0.1 (0.0-0.2) X10*3/uL Abs Immat Gran (auto) 0.03 (0.00-0.03) X10*3/uL Absolute Neuts (auto) 6.5 (2.0-8.3) x10*3/uL Absolute Nucleated RBC 0.000 (0.0-0.012) X10*3/uL Nucleated RBC % (auto) 0.0 (0.0-0.2) /100WBC O2 Saturation % ABG pH at Pt Temp (7.35-7.45) ABG pCO2 at Pt Temp (32-45) mmHg ABG pO2 at Pt Temp (83-108) mmHg ABG HCO3 (22-26) mmol/L ABG Base Excess (Actual) mmol/L Sodium (135-145) mmol/L Potassium (3.3-5.1) mmol/L Chloride (96-108) mmol/L Carbon Dioxide (22-29) mmol/L Anion Gap (12-20) BUN (9-16) mg/dL Creatinine (0.5-1.4) mg/dL Estim Creat Clear Calc Estimated GFR Random Glucose (60-115) mg/dL Calcium (8.4-10.2) mg/dL Total Bilirubin (0.0-1.0) mg/dL AST (5-31) U/L ALT (0-31) U/L Alkaline Phosphatase (39-117) U/L Troponin I High Sens < 3.5 (<3.5-17.0) ng/L B-Natriuretic Peptide (<100) pg/mL Total Protein (6.5-8.0) g/dL Albumin (3.5-5.0) g/dL Respiratory Panel Moya See Note Adenovirus (Rapid PCR) Not Detected (Not Detect.) B.pert (TEM-PCR) Not Detected (Not Detect.) B.parapertussis DNA PCR Not Detected (Not Detect.) C. pneumoniae DNA (PCR) Not Detected (Not Detect.) Coronavirus OC43 (PCR) Not Detected (Not Detect.) Coronavirus HKU1 (PCR) Not Detected (Not Detect.) Coronavirus 229E (PCR) Not Detected (Not Detect.) Coronavirus NL63 (PCR) Not Detected (Not Detect.) Human Metapneumovir PCR Not Detected (Not Detect.) Influenza A (RT-PCR) Not Detected (Not Detect.) Influenza B (RT-PCR) Not Detected (Not Detect.) M. pneumoniae (PCR) Not Detected (Not Detect.) Parainfluenza 1 (PCR) Not Detected (Not Detect.) Parainfluenza 2 (PCR) Not Detected (Not Detect.) Parainfluenza 3 (PCR) Not Detected (Not Detect.) Parainfluenza 4 (PCR) Not Detected (Not Detect.) RSV (PCR) Not Detected (Not Detect.) Entero/Rhino (PCR) Detected A (Not Detect.) SARS-CoV-2 RNA (RT-PCR) Not Detected (Not Detect.) 03/03/22 03/03/22 03/03/22 Range/Units 13:07 13:07 16:12 WBC (4.8-10.8) X10*3/uL RBC (4.20-5.50) X10*6/uL Hgb (12.0-16.0) g/dl Hct (37.0-47.0) % MCV (80.0-98.0) fL MCH (27.0-33.0) pg MCHC (31.0-35.0) g/dl RDW (11.0-16.0) % Plt Count (160-400) X10*3/uL MPV (9.4-12.3) fL Immature Gran % (Auto) (0.0-0.4) % Neut % (Auto) (45-73) % Lymph % (Auto) (20-40) % [place] % (Auto) (2-11) % Eos % (Auto) (0-4) % Baso % (Auto) (0-2) % Lymph # (Auto) (1.2-4.9) X10*3/uL [place] # (Auto) (0.1-1.2) X10*3/uL Eos # (Auto) (0.0-0.4) X10*3/uL Baso # (Auto) (0.0-0.2) X10*3/uL Abs Immat Gran (auto) (0.00-0.03) X10*3/uL Absolute Neuts (auto) (2.0-8.3) x10*3/uL Absolute Nucleated RBC (0.0-0.012) X10*3/uL Nucleated RBC % (auto) (0.0-0.2) /100WBC O2 Saturation 99.0 % ABG pH at Pt Temp 7.38 (7.35-7.45) ABG pCO2 at Pt Temp 25 L (32-45) mmHg ABG pO2 at Pt Temp 110 H (83-108) mmHg ABG HCO3 15 L (22-26) mmol/L ABG Base Excess (Actual) -7.7 mmol/L Sodium 141 (135-145) mmol/L Potassium 4.0 (3.3-5.1) mmol/L Chloride 106 (96-108) mmol/L Carbon Dioxide 24 (22-29) mmol/L Anion Gap 15 (12-20) BUN 14 (9-16) mg/dL Creatinine 0.96 (0.5-1.4) mg/dL Estim Creat Clear Calc 65.6 Estimated GFR 58 Random Glucose 148 H (60-115) mg/dL Calcium 9.7 (8.4-10.2) mg/dL Total Bilirubin 0.8 (0.0-1.0) mg/dL AST 20 (5-31) U/L ALT 21 (0-31) U/L Alkaline Phosphatase 126 H (39-117) U/L Troponin I High Sens (<3.5-17.0) ng/L B-Natriuretic Peptide 14 (<100) pg/mL Total Protein 7.4 (6.5-8.0) g/dL Albumin 4.2 (3.5-5.0) g/dL Respiratory Panel M[place] Adenovirus (Rapid PCR) (Not Detect.) B.pert (TEM-PCR) (Not Detect.) B.parapertussis DNA PCR (Not Detect.) C. pneumoniae DNA (PCR) (Not Detect.) Coronavirus OC43 (PCR) (Not Detect.) Coronavirus HKU1 (PCR) (Not Detect.) Coronavirus 229E (PCR) (Not Detect.) Coronavirus NL63 (PCR) (Not Detect.) Human Metapneumovir PCR (Not Detect.) Influenza A (RT-PCR) (Not Detect.) Influenza B (RT-PCR) (Not Detect.) M. pneumoniae (PCR) (Not Detect.) Parainfluenza 1 (PCR) (Not Detect.) Parainfluenza 2 (PCR) (Not Detect.) Parainfluenza 3 (PCR) (Not Detect.) Parainfluenza 4 (PCR) (Not Detect.) RSV (PCR) (Not Detect.) Entero/Rhino (PCR) (Not Detect.) SARS-CoV-2 RNA (RT-PCR) (Not Detect.) Critical Care Time Critical Care Time Critical Care Time: Yes Total Critical Care Time: 100 Attestation: Critical care outside of separately billable procedures. Secondary to acute respiratory distress with possible respiratory failure Discharge Plan Discharge Clinical Impression: COPD exacerbation, Upper respiratory infection Patient Disposition: Admitted As Inpatient
[2022-03-03] MEDS: methylPREDNISolone Sod Succ 125 MG/2 ML VIAL IVPUSH (13:09)
[2022-03-03] MEDS: 0.9 % Sodium Chloride 500 ML IV (13:09)
[2022-03-03 13:14] LABS: MANUAL DIFF FLAG NO
[2022-03-03 13:17] LABS: Basophils Absolute Auto 0.1 X10*3/uL (0.0-0.2); Basophils Percent Auto 0.7 % (0-2); Eosinophils Absolute Auto 0.4 X10*3/uL (0.0-0.4); Eosinophils Percent Auto 3.7 % (0-4); Hematocrit 48.3 % (37.0-47.0); Hemoglobin 15.7 g/dl (12.0-16.0); Imm Gran Abs Auto 0.03 X10*3/uL (0.00-0.03); Imm Gran Pct Auto 0.3 % (0.0-0.4); Lymphocytes Absolute Auto 3.4 X10*3/uL (1.2-4.9); Lymphocytes Percent Auto 29.3 % (20-40); Mean Corpuscular HGB Conc 32.5 g/dl (31.0-35.0); Mean Corpuscular Hemoglobin 26.3 pg (27.0-33.0); Mean Corpuscular Volume 80.8 fL (80.0-98.0); Mean Platelet Volume 9.6 fL (9.4-12.3); Monocytes Percent Auto 8.8 % (2-11); Neutrophils Absolute Auto 6.5 x10*3/uL (2.0-8.3); Neutrophils Percent Auto 57.2 % (45-73); Platelet Count 299 X10*3/uL (160-400); Red Blood Count 5.98 X10*6/uL (4.20-5.50); Red Cell Distribution Width 13.8 % (11.0-16.0); White Blood Count 11.4 X10*3/uL (4.8-10.8)
[2022-03-03] MEDS: Albuterol Sulfate 7.5 MG, Albuterol Sulfate (0.083%) 2.5 MG 10 MG INHALE (13:18)
[2022-03-03] MEDS: Ipratropium Bromide 0.5 MG/2.5 ML SOLUTION INHALE (13:18)
[2022-03-03 13:33] LABS: Alanine Aminotransferase 21 U/L (0-31); Albumin Level 4.2 g/dL (3.5-5.0); Alkaline Phosphatase 126 U/L (39-117); Anion Gap 15 (12-20); Aspartate Amino Transferase 20 U/L (5-31); Bilirubin Total 0.8 mg/dL (0.0-1.0); Blood Urea Nitrogen 14 mg/dL (9-16); Calcium 9.7 mg/dL (8.4-10.2); Carbon Dioxide 24 mmol/L (22-29); Chloride 106 mmol/L (96-108); Creatinine Clr Calc Pharmacy 65.6; Estimated Glomerular Filt Rate 58; Glucose Random 148 mg/dL (60-115); Sodium 141 mmol/L (135-145); Total Protein 7.4 g/dL (6.5-8.0)
[2022-03-03 13:37] LABS: B Type Natriuretic Peptide 14 pg/mL (<100)
--- NOTE | 2022-03-03 13:40 | PC.NURSE ---
R.T at bedside patient put on BIPAP r/t patient looking uncomfortable with respiratory effort . patient tolerating well . patient aware of plan of care .
[2022-03-03 13:46] LABS: Troponin-I High Sensitivity < 3.5 ng/L (<3.5-17.0)
[2022-03-03 14:27] LABS: Adenovirus PCR Not Detected (Not Detect.); Bordetella parapertussis PCR Not Detected (Not Detect.); Bordetella pertussis PCR Not Detected (Not Detect.); Chlamydia pneumoniae PCR Not Detected (Not Detect.); Coronavirus 229E PCR Not Detected (Not Detect.); Coronavirus HKU1 PCR Not Detected (Not Detect.); Coronavirus NL63 PCR Not Detected (Not Detect.); Coronavirus OC43 PCR Not Detected (Not Detect.); Human metapneumovirus PCR Not Detected (Not Detect.); Influenza A PCR Not Detected (Not Detect.); Influenza B PCR Not Detected (Not Detect.); Mycoplasma pneumoniae PCR Not Detected (Not Detect.); Parainfluenza 1 PCR Not Detected (Not Detect.); Parainfluenza 2 PCR Not Detected (Not Detect.); Parainfluenza 3 PCR Not Detected (Not Detect.); Parainfluenza 4 PCR Not Detected (Not Detect.); RSV PCR Not Detected (Not Detect.); Rhino/Enterovirus PCR Detected (Not Detect.); SARS-CoV-2 PCR Not Detected (Not Detect.)
[2022-03-03] MEDS: Ketorolac Tromethamine 15 MG/ML VIAL 30 MG IVPUSH (15:44)
--- NOTE | 2022-03-03 15:45 | PC.NURSE ---
Patient medicated with 30mg of toradal IVP for 6 out 10 chest/ back pain as ordered . patient aware of plan of care .
[2022-03-03] MEDS: LORazepam 2 MG/ML VIAL 0.5 MG IVPUSH ×2 (16:10→17:58)
[2022-03-03 16:17] LABS: ABG Base Excess -7.7 mmol/L; ABG HCO3 15 mmol/L (22-26); ABG pCO2 25 mmHg (32-45); ABG pH 7.38 (7.35-7.45); ABG pO2 110 mmHg (83-108)
--- NOTE | 2022-03-03 16:30 | PC.NURSE ---
patient transitioned off of BIPAP . 99 % on room air /. patient aware of plan of care for admission .
--- NOTE | 2022-03-03 16:37 | PM.CCN ---
Critical Care Event Note Summary Date of Service: 03/03/22 Code activated: No Narrative: 66-year-old lady with underlying obesity, likely KALI, but no obesity hypoventilation as her bicarbonate is normal, no smoking history being evaluated in the emergency room for dyspnea. Noted to be enterovirus positive. Patient initially with increased work of breathing, placed on BiPAP by, now titrated off. ABG with hyperventilation. On exam, alert and oriented, normotensive, normal oximetry on 2 L continuous flow. At this time does not require intensive care unit level of service, Please notify for re-evaluation, if patient's condition changes. Critical Care Time (minutes): 0
--- NOTE | 2022-03-03 17:45 | MHC.EDTECH ---
pt said she was hungry ,provider said it was ok for pt to eat ,pt had tuna fish sandwich and diet padma libby for snack .
--- NOTE | 2022-03-03 18:22 | P.HPHOSP_ITS ---
History of Present Illness Date of Service: 03/03/22 Attending physician on admission: [facility] Chief Complaint: cough, sob, wheezing 66-year-old female with history of depression and anxiety, chronic idiopathic constipation, hypertension, fibromyalgia, GERD, insulin-dependent type 2 diabetes, hyperparathyroidism, hypothyroidism, hyperlipidemia, diabetic neuropathy, history of cervical cancer, obesity, COPD, and osteopenia presented to the ED earlier this afternoon for evaluation of shortness of breath, wheezing, and productive cough with minimal sputum production. There is also associated pleuritic chest pain and back pain. On arrival, patient hypertensive at 170/71, tachypneic to 22, afebrile, no hypoxia, though noted to have increased work of breathing. As a result, she was placed with ABG pH 7.38, pCO2 25, PO2 110, HC03 15, suggestive of hyperventilation. She was evaluated by Dr. Villalta from ICU but not feel increase level of care was indicated. Patient was trialed off of BiPAP and placed on 1 L supplemental O2 via nasal cannula. She was also given 1 mg IV Ativan use which did improve patient's symptoms. CXR negative for any acute pulmonary abnormality. She is negative for RSV, influenza COVID-19, but positive for enterovirus/rhinovirus. Hematology studies consistent with baseline given history of MGUS. Renal function and electrolyte levels normal. Glucose 148. Troponin and BNP negative. In the ED, patient treated with albuterol and ipratropium nebulizer, 125 mg methylprednisolone IV, 0.5 mg lorazepam, and 500 mL IV NS. Patient be observed for acute COPD exacerbation. Review of Systems Review of Systems: General: No fevers, malaise, unintentional weight loss HEENT: No blurred vision, diplopia. No sore throat, nasal congestion, rhinorrhea, sinus pain, ear pain Cardiovascular: No chest pressure, palpitations, or leg edema Respiratory: +sob, +wheezing, +productive cough GI: No abdominal pain, nausea, vomiting, diarrhea, constipation, melena, hematochezia : No dysuria, hematuria, increased urinary frequency MSK: +pleuritic chest pain, +back pain. No myalgia Neuro: No headaches, weakness, paresthesias Skin: No rashes or lesions [facility] Medical History (Updated 03/03/22 @ 18:36 by CHEMA Hernandez) BMI 35.0-35.9,adult Cervical cancer Constipation Depression with anxiety Diabetes mellitus with hyperglycemia Erosive gastritis Essential hypertension Fibromyalgia GERD (gastroesophageal reflux disease) Meir's disease HTN (hypertension) Hyperlipidemia LDL goal <100 Hyperparathyroidism Leg edema, left Multinodular thyroid Osteoarthritis of left knee Osteopenia Other obesity due to excess calories Other specified acquired hypothyroidism Skin lesion of chest wall T2DM (type 2 diabetes mellitus) Thyroid nodule Type 2 diabetes mellitus with diabetic polyneuropathy Vitamin B12 deficiency Vitamin D deficiency Family History Father CVD (cardiovascular disease) Diabetes mellitus Stroke Mother Stroke Diabetes mellitus Breast cancer Hyperthyroidism Surgical History History of arthroplasty of right knee History of bilateral carpal tunnel release History of cholecystectomy History of esophagogastroduodenoscopy (EGD) Hx of arthroscopy of left knee Hx of bilateral oophorectomy Hx of colonoscopy Hx of foot surgery Hx of hysterectomy Social History Household Members: None Housing: House Are you a primary outdoor emergency care technician to a significant other at home: No Do you presently have visiting nurse or other home services: No Alcohol intake: current Alcohol intake frequency: holidays/special occasions only Patient Tobacco Use Status: Never used Tobacco Advance Directives: No Advance Directives Information Provided: Yes service: No 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al status: disabled 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 Allergies Allergy/AdvReac Type Severity Reaction Status Date / Time No Known Allergies Allergy Verified 12/11/21 15:14 [No Known Allergies*] Home Medications Medication Instructions Recorded Confirmed Last Taken Type aspirin 325 mg tablet,delayed 325 mg PO DAILY 02/28/20 12/11/21 Unknown History release diclofenac sodium 75 mg 75 mg PO BID 02/28/20 12/11/21 Unknown History tablet,delayed release mecobalamin (vitamin B12) 1,000 1,000 mcg PO DAILY 02/28/20 12/11/21 Unknown History mcg chewable tablet hydrochlorothiazide 50 mg tablet 50 mg PO DAILY 02/29/20 12/11/21 Unknown Hist ory alcohol swabs pad topical 03/19/20 12/11/21 Unknown History blood sugar diagnostic #10 ea 03/19/20 12/11/21 Unknown History fluticasone propionate 110 0 mcg inhalation 03/19/20 12/11/21 Unknown History mcg/actuation HFA aerosol inhaler furosemide 20 mg tablet 20 mg PO QAM 03/19/20 12/11/21 Unknown History hydroxyzine HCl 50 mg tablet 50 mg PO Q8H PRN anxiety 03/19/20 12/11/21 Unknown History lisinopril 40 mg tablet 40 mg PO DAILY 03/19/20 12/11/21 Unknown History multivitamin-ferrous 1 tab PO QAM 03/19/20 12/11/21 Unknown History fumarate-folic acid 18 mg-400 mcg tablet tramadol 50 mg tablet 50 mg PO TID PRN Pain 03/19/20 12/11/21 Unknown History metoprolol succinate 200 mg 200 mg PO DAILY 07/09/20 12/11/21 Unknown History tablet,extended release 24 hr trazodone 150 mg tablet 150 mg PO 07/09/20 12/11/21 Unknown History lancets 33 gauge (OneTouch Delica #100 ea 04/17/21 12/11/21 Unknown History Plus Lancet) albuterol sulfate 90 mcg/actuation 0 mcg inhalation 10/17/21 12/11/21 Unknown History aerosol inhaler (Ventolin HFA) verapamil 180 mg tablet,extended 0 mg PO 10/17/21 12/11/21 Unknown History release Physical Exam Vital Signs and Narrative: Vital Signs: Last Vital Signs Temp 98.0 F 03/03/22 16:36 Pulse 87 03/03/22 16:36 Resp 16 03/03/22 16:36 BP 115/61 03/03/22 16:36 Pulse Ox 94 03/03/22 16:36 O2 Del Method 03/03/22 16:36 O2 Flow Rate 1 03/03/22 16:36 BMI result Body Mass Index 35.7 Constitutional - Awake and Alert, No apparent distress Eyes - PERRLA, EOMI Cardiovascular - S1S2, RRR, No edema Chest: Reproducible tenderness to palpation across the anterior chest Respiratory - Normal lung expansion, Normal respiratory effort, No respiratory distress, scattered wheezes bilaterally Gastrointestinal - NT / ND; +BS; No rebound or guarding Extremities - no calf tenderness bilaterally, no swelling Skin - Warm/Dry Neurological - Alert & oriented x3 Psychological - anxious appearing Results Labs CBC and Chem 7: 03/03/22 13:07 03/03/22 13:07 Labs: Laboratory Results - last 24 hr 03/03/22 03/03/22 03/03/22 12:59 13:07 13:07 MCV 80.8 MCH 26.3 L MCHC 32.5 RDW 13.8 Plt Count 299 MPV 9.6 Immature Gran % (Auto) 0.3 Neut % (Auto) 57.2 Lymph % (Auto) 29.3 [place] % (Auto) 8.8 Eos % (Auto) 3.7 Baso % (Auto) 0.7 Lymph # (Auto) 3.4 [place] # (Auto) 1.0 Eos # (Auto) 0.4 Baso # (Auto) 0.1 Abs Immat Gran (auto) 0.03 Absolute Neuts (auto) 6.5 Absolute Nucleated RBC 0.000 Nucleated RBC % (auto) 0.0 O2 Saturation ABG pH at Pt Temp ABG pCO2 at Pt Temp ABG pO2 at Pt Temp ABG HCO3 ABG Base Excess (Actual) Anion Gap Estim Creat Clear Calc Estimated GFR Random Glucose Calcium Total Bilirubin AST ALT Alkaline Phosphatase Troponin I High Sens < 3.5 B-Natriuretic Peptide Total Protein Albumin Respiratory Panel Moya See Note Adenovirus (Rapid PCR) Not Detected B.pert (TEM-PCR) Not Detected B.parapertussis DNA PCR Not Detected C. pneumoniae DNA (PCR) Not Detected Coronavirus OC43 (PCR) Not Detected Coronavirus HKU1 (PCR) Not Detected Coronavirus 229E (PCR) Not Detected Coronavirus NL63 (PCR) Not Detected Human Metapneumovir PCR Not Detected Influenza A (RT-PCR) Not Detected Influenza B (RT-PCR) Not Detected M. pneumoniae (PCR) Not Detected Parainfluenza 1 (PCR) Not Detected Parainfluenza 2 (PCR) Not Detected Parainfluenza 3 (PCR) Not Detected Parainfluenza 4 (PCR) Not Detected RSV (PCR) Not Detected Entero/Rhino (PCR) Detected A SARS-CoV-2 RNA (RT-PCR) Not Detected 03/03/22 03/03/22 03/03/22 13:07 13:07 16:12 MCV MCH MCHC RDW Plt Count MPV Immature Gran % (Auto) Neut % (Auto) Lymph % (Auto) [place] % (Auto) Eos % (Auto) Baso % (Auto) Lymph # (Auto) [place] # (Auto) Eos # (Auto) Baso # (Auto) Abs Immat Gran (auto) Absolute Neuts (auto) Absolute Nucleated RBC Nucleated RBC % (auto) O2 Saturation 99.0 ABG pH at Pt Temp 7.38 ABG pCO2 at Pt Temp 25 L ABG pO2 at Pt Temp 110 H ABG HCO3 15 L ABG Base Excess (Actual) -7.7 Anion Gap 15 Estim Creat Clear Calc 65.6 Estimated GFR 58 Random Glucose 148 H Calcium 9.7 Total Bilirubin 0.8 AST 20 ALT 21 Alkaline Phosphatase 126 H Troponin I High Sens B-Natriuretic Peptide 14 Total Protein 7.4 Albumin 4.2 Respiratory Panel Moya Adenovirus (Rapid PCR) B.pert (TEM-PCR) B.parapertussis DNA PCR C. pneumoniae DNA (PCR) Coronavirus OC43 (PCR) Coronavirus HKU1 (PCR) Coronavirus 229E (PCR) Coronavirus NL63 (PCR) Human Metapneumovir PCR Influenza A (RT-PCR) Influenza B (RT-PCR) M. pneumoniae (PCR) Parainfluenza 1 (PCR) Parainfluenza 2 (PCR) Parainfluenza 3 (PCR) Parainfluenza 4 (PCR) RSV (PCR) Entero/Rhino (PCR) SARS-CoV-2 RNA (RT-PCR) Imaging Radiologist's Impressions: Impressions Chest X-Ray 03/03/22 14:16 IMPRESSION: No acute pulmonary disease. Assessment and Plan (1) COPD exacerbation: Status: Acute (2) Upper respiratory infection: Status: Acute Plan 66-year-old female with history of depression and anxiety, chronic idiopathic constipation, hypertension, fibromyalgia, GERD, insulin-dependent type 2 diabetes, hyperparathyroidism, hypothyroidism, hyperlipidemia, diabetic neuropathy, history of cervical cancer, obesity, COPD, and osteopenia to be observed for acute COPD exacerbation secondary to enterovirus/rhinovirus # acute COPD exacerbation secondary to enterovirus/rhinovirus -CXR negative for any infiltrates or focal opacities -IV Solu-Medrol 60 mg b.i.d. -DuoNebs q.4h while awake -Zithromax 100 mg IV x3 days -Robitussin AC p.r.n. for cough and pleuritic chest pain -continue home maintenance inhalers -Titrate supplemental O2, no hypoxia. Place on bipap in ED due to increased WOB, successfully trialed off with ABG suggestive of hyperventilation with pH 7.38, pCO2 25, PO2 110, HC03 15 # insulin-dependent type 2 diabetes -POC glucose -diabetic diet -dose adjusted insulin glargine -Humalog on sliding scale -hold p.o. anti hyperglycemics # hypertension-BP soft -hold home meds for now # HLD -continue statin # hypothyroidism -continue levothyroxine # anxiety -Continue home meds -add Ativan p.r.n. for increased anxiety/work of breathing # diabetic neuropathy/fibromyalgia -continue gabapentin # GERD -continue PPI # obesity -weight loss efforts encouraged DVT prophylaxis- mechanical, ambulation Full code Med rec pending Time Spent With Patient Time: Total time managing care of this patient today ____ minutes. Quality Stroke Does the patient have a stroke diagnosis?: No VTE Prior VTE?: No VTE Risk Level:: Medical - moderate - high VTE Device Contraindication: N/A - Device Ordered VTE Drug Contraindication: Treatment Not Indicated
[2022-03-03] MEDS: Azithromycin 500 MG TABLET PO (18:31)
[2022-03-03 18:41] LABS: Appearance Urine Clear; Color Urine Yellow; Glucose Urine UA >=1000 mg/dL (Negative); Leukocyte Esterase Urine Negative (Negative); Nitrite Urine Negative (Negative); Specific Gravity - Urine >= 1.030 (1.005-1.025); UMIC TRIGGER UACC YES; Urine Blood Negative (Negative); Urine Ketones 40 mg/dL (Negative); Urine Protein Negative (Neg-Trace)
[2022-03-03 18:46] LABS: Bacteria Urine 1+ (None Seen); Hyaline Casts Urine 0-2 /LPF (0-2); WBC Urine 0-5 /HPF (0-5)
--- NOTE | 2022-03-03 20:21 | PC.NURSE ---
PT a&ox3, reports 9/10 headache and back pain. Provider notified, awaiting for new orders.
[2022-03-03] MEDS: methylPREDNISolone Sod Succ 125 MG/2 ML VIAL 60 MG IVPUSH (20:30)
[2022-03-03] MEDS: ondansetron HCL 4 MG/2 ML VIAL IVPUSH (20:34)
[2022-03-03] MEDS: Albuterol/Iprat 2.5/0.5MG 3 ML AMPUL.NEB INHALE (20:37)
--- NOTE | 2022-03-03 20:39 | PHA.MEDREC ---
Pharmacy Consult ? Medication Reconciliation Pharmacy has completed the medication reconciliation.
[2022-03-03] MEDS: HYDROmorphone HCl 0.5 MG/0.5 ML SYRINGE IVPUSH (20:40)
--- NOTE | 2022-03-03 20:45 | PC.NURSE ---
Meds given as documented.
--- NOTE | 2022-03-03 22:21 | MHC.CM.PN ---
PAULA 03/03. street light mechanic used, as pt is Romanian speaking. A&Ox4. Pleasant. Lives with boyfriend. Uses walker, DM supplies and shower chair. Has no services. Has CCA. Declines HCP at this time. Leonel x3. Pt is a [employer]. D/C plan: Home withouts services. Family to transport.
--- NOTE | 2022-03-03 23:12 | ECG_ITS ---
Test Reason : CHEST PAIN Blood Pressure : / mmHG Vent. Rate : 091 BPM Atrial Rate : 091 BPM P-R Int : 148 ms QRS Dur : 108 ms QT Int : 350 ms P-R-T Axes : 041 013 025 degrees QTc Int : 430 ms Normal sinus rhythm Nonspecific ST and T wave abnormality Abnormal ECG When compared with ECG of 03-MAR-2022 13:15, Vent. rate has increased BY 37 BPM Nonspecific T wave abnormality now evident in Inferior leads Referred By: Zayra Deiv Electronically Signed By:Joe Purcell
--- NOTE | 2022-03-03 23:20 | PC.NURSE ---
PT reports 9/10 chest pain, EKG order obtained. Provider notified, no new orders at this time.
[2022-03-03 23:30] LABS: ABG Refer to POC result
[2022-03-04] VITALS: BP 150/70; PULSE 82; RESP 17; TEMP 36.4; O2SAT 95
[2022-03-04 01:05] VITALS: BMI 35.9
[2022-03-04] MEDS: HYDROmorphone HCl 0.5 MG/0.5 ML SYRINGE IVPUSH (02:57)
[2022-03-04 03:05] VITALS: PULSE 81; RESP 17; O2SAT 97
[2022-03-04] MEDS: Albuterol/Iprat 2.5/0.5MG 3 ML AMPUL.NEB INHALE ×3 (03:05→16:34)
[2022-03-04] MEDS: 0.9 % Sodium Chloride Flush 3 ML SYRINGE IVFLUSH ×2 (03:14→09:36)
[2022-03-04 04:00] VITALS: BP 160/70; PULSE 82; RESP 17; TEMP 36.5; O2SAT 96
[2022-03-04 08:00] VITALS: BP 176/77; PULSE 86; RESP 18; TEMP 36.6; O2SAT 95
[2022-03-04 09:00] VITALS: PULSE 75; RESP 17; O2SAT 97
[2022-03-04] MEDS: methylPREDNISolone Sod Succ 125 MG/2 ML VIAL 60 MG IVPUSH (09:35)
[2022-03-04] MEDS: Acetaminophen 325 MG TABLET 650 MG PO (09:36)
[2022-03-04] MEDS: guaiFEN/Codeine SF 200/20/10ML 10 ML LIQUID 5 ML PO ×2 (09:36→16:54)
[2022-03-04] MEDS: Aspirin Enteric Coated 325 MG TABLET.DR PO (10:44)
[2022-03-04] MEDS: oxyCODONE HCl Immed Release 5 MG TABLET PO (10:46)
[2022-03-04] MEDS: Empagliflozin 25 MG TABLET PO (10:47)
[2022-03-04] MEDS: Metoprolol Succinate ER 100 MG TAB.ER.24H 200 MG PO (10:47)
[2022-03-04] MEDS: Furosemide 20 MG TABLET PO (10:47)
[2022-03-04] MEDS: lisinopriL 40 MG TABLET PO (10:47)
[2022-03-04] MEDS: Multivitamin TABLET 1 TAB PO (10:47)
[2022-03-04] MEDS: Cholecalciferol (Vitamin D3) 25 MCG TABLET 50 MCG PO (10:48)
[2022-03-04] MEDS: Levothyroxine Sodium 75 MCG TABLET PO (10:48)
[2022-03-04] MEDS: VerapamiL HCL SR 180 MG TABLET.ER PO (10:48)
[2022-03-04] MEDS: hydrOXYzine HCL 50 MG TABLET PO (10:50)
[2022-03-04 11:29] LABS: Glucose, Whole Blood 289 mg/dL (60-115)
[2022-03-04] MEDS: Insulin Lispro 100 UNIT/ML 3 ML VIAL SUBCUT ×2 (12:06→16:54)
[2022-03-04 15:58] LABS: Glucose, Whole Blood 233 mg/dL (60-115)
--- NOTE | 2022-03-04 16:12 | P.DS_ITS ---
DS: Providers Provider Date of Service: 03/04/22 Date of admission: 03/03/22 18:15 Date of discharge: 03/04/22 Primary care physician: Breanna Zamudio NP Admitting clinician: Zayra Devi Attending physician on admission: [facility] Attending physician on discharge: [facility] Discharging clinician: Zayra Devi DS: Diagnosis Discharge Diagnosis (1) COPD exacerbation: Status: Acute (2) Upper respiratory infection: Status: Acute DS: Summary Hospital Course Hospital Course: HPI on admission 03/03/22: 66-year-old female with history of depression and anxiety, chronic idiopathic constipation, hypertension, fibromyalgia, GERD, insulin-dependent type 2 diabetes, hyperparathyroidism, hypothyroidism, hyperlipidemia, diabetic neuropathy, history of cervical cancer, obesity, COPD, and osteopenia presented to the ED earlier this afternoon for evaluation of shortness of breath, wheezing, and productive cough with minimal sputum production.? There is also associated pleuritic chest pain and back pain.? On arrival, patient hypertensive at 170/71, tachypneic to 22, afebrile, no hypoxia, though noted to have increased work of breathing.? As a result, she was placed with ABG pH 7.38, pCO2 25, PO2 110, HC03 15, suggestive of hyperventilation.? She was evaluated by Dr. Villalta from ICU but not feel increase level of care was indicated.? Patient was trialed off of BiPAP and placed on 1 L supplemental O2 via nasal cannula.? She was also given 1 mg IV Ativan use which did improve patient's symptoms.? CXR negative for any acute pulmonary abnormality.? She is negative for RSV, influenza COVID-19, but positive for enterovirus/rhinovirus.? Hematology studies consistent with baseline given history of MGUS.? Renal function and electrolyte levels normal.? Glucose 148.? Troponin and BNP negative.? In the ED, patient treated with albuterol and ipratropium nebulizer, 125 mg methylprednisolone IV, 0.5 mg lorazepam, and 500 mL IV NS.? Patient be observed for acute COPD exacerbation. Hospital course: Hospital course uneventful. Patient VSS throughout admission, without any hypoxia. No further indication for BIPAP. ABG in ED conistent with hyperventilation with pCO2 25, HCO3 18, pO2 118, ph normal 7.38. Anxiety managed with hydroxyzine. No further increased WOB. Treated with duonebs and given addl dose 60mg IV solumedrol. Cough treated with robitussin AC. She is still complaining of pleuritic CP and back pain. Lungs clear except for faint expiratory wheeze in RML. Pt with some anxiety about going home given ongoing productive cough. Pt reassurted that VSS, no hypoxia, lungs clear with only faint expiratory wheeze. Discussed ongoing management of anxiety with home meds and breathing exercises. She will be discharged with sereneitussin MATT and salazar nuñez for cough. She will complete addl 3 days prednisone 50mg PO daily and one addl dose azithromycin 500mg PO tomorrow AM for treatment of Acute COPD exacerbation with entero/rhinovirus. Use albuterol prn. Counseled on course of viral illnesses. Follow up with pcp in 1 week. Status at Discharge Functional status at discharge: independent ambulation Overall status at discharge: patient is back to baseline Time Spent with Patient Time attestation: Total time managing care of this patient today ____ minutes. Discharge coordination time: Greater than 30 minutes Quality: Safe Use of Opioids Does Pt have an Active Cancer Diagnosis on the Problem List?: No Quality: Stroke Does the patient have a stroke diagnosis?: No Physical Exam Vital Signs: Vital Signs: Last Vital Signs Temp 97.8 F 03/04/22 08:00 Pulse 75 03/04/22 09:00 Resp 17 03/04/22 09:00 BP 176/77 H 03/04/22 08:00 Pulse Ox 95 03/04/22 08:00 O2 Del Method 03/04/22 08:00 O2 Flow Rate 1 03/03/22 16:36 BMI result Body Mass Index 35.9 Constitutional - Awake and Alert, No apparent distress Eyes - PERRLA, EOMI Cardiovascular - S1S2, RRR, No edema Respiratory - Normal lung expansion, Normal respiratory effort, No respiratory distress, faint expiratory wheezes RML, otherwise CTA Gastrointestinal - NT / ND; +BS; No rebound or guarding Extremities - no calf tenderness bilaterally, no swelling Skin - Warm/Dry Neurological - Alert & oriented x3 Psychological - Appropriate affect DS: Data Data Completed and Pending Labs on day of discharge: Laboratory Results - last 24 hr 03/03/22 03/03/22 03/04/22 16:12 18:28 11:20 O2 Saturation 99.0 ABG pH at Pt Temp 7.38 ABG pCO2 at Pt Temp 25 L ABG pO2 at Pt Temp 110 H ABG HCO3 15 L ABG Base Excess (Actual) -7.7 POC Glucose 289 H Urine Color Yellow Urine Appearance Clear Urine pH 5.0 Ur Specific [place] >= 1.030 H Urine Protein Negative Urine Glucose (UA) >=1000 H Urine Ketones 40 Urine Blood Negative Urine Nitrite Negative Ur Leukocyte Esterase Negative Urine RBC 3-5 H Urine WBC 0-5 Ur Squamous Epith Cells 3-5 Urine Bacteria 1+ Hyaline Casts 0-2 03/04/22 15:54 O2 Saturation ABG pH at Pt Temp ABG pCO2 at Pt Temp ABG pO2 at Pt Temp ABG HCO3 ABG Base Excess (Actual) POC Glucose 233 H Urine Color Urine Appearance Urine pH Ur Specific [place] Urine Protein Urine Glucose (UA) Urine Ketones Urine Blood Urine Nitrite Ur Leukocyte Esterase Urine RBC Urine WBC Ur Squamous Epith Cells Urine Bacteria Hyaline Casts Preliminary micro results at discharge 03/03/22 13:07 Blood Culture - Preliminary Blood - Venous No growth after 24 hours. 03/03/22 13:07 Blood Culture - Preliminary Blood - Venous No growth after 24 hours. Discharge Plan Discharge Anticipated Discharge Date/Time: 03/04/22 15:54 Patient Disposition: Home, Self-Care Discharge Diagnosis: COPD exacerbation, rhinovirus Referrals: Breanna Zamudio POWER SHOVEL OPERATOR [Primary Care Provider] - 1 Week Discharge Medications: New codeine-guaifenesin 10-100 mg/5 mL Liquid 10 ml PO Q4H PRN (Reason: Cough) Qty: 200 0RF benzonatate 100 mg capsule 100 mg PO TID Qty: 21 0RF prednisone 50 mg tablet 50 mg PO DAILY Qty: 3 0RF azithromycin 500 mg Tablet 500 mg PO Q24H Qty: 1 0RF Continued acetaminophen 650 mg tablet extended release 650 mg PO Q8H PRN (Reason: pain) Qty: 90 3RF Lantus Solostar U-100 Insulin 100 unit/mL (3 mL) insulin pen 34 unit subcut QPM Qty: 15 4RF levothyroxine 75 mcg tablet 75 mcg PO QAM Qty: 30 6RF rosuvastatin 40 mg tablet 40 mg PO DAILY 30 Days Qty: 30 11RF gabapentin 100 mg capsule 300 mg PO BEDTIME Qty: 90 3RF meclizine 25 mg tablet 25 mg PO DAILY PRN (Reason: dizziness) Qty: 20 0RF cyclobenzaprine 10 mg tablet 10 mg PO TID PRN (Reason: muscle spasm) Qty: 10 0RF oxycodone 5 mg tablet 5 mg PO Q6H PRN (Reason: pain) Qty: 20 0RF Rx Instructions: Partial Fill upon patient request. Ozempic 0.25 mg or 0.5 mg(2 mg/1.5 mL) pen injector 0.5 mg subcut MO Rx Instructions: Start with 0.25 mg once a week x 4 weeks, then increase to 0.5 mg once a week thereafter albuterol sulfate [Ventolin HFA] 90 mcg/actuation HFA aerosol inhaler 90 mcg inhalation Q4H PRN (Reason: Wheezing) Qty: 8.5 0RF hydrochlorothiazide 50 mg tablet 50 mg PO DAILY tramadol 50 mg tablet 50 mg PO TID PRN (Reason: Pain) fluticasone propionate 110 mcg/actuation HFA aerosol inhaler 1 puff inhalation DAILY lisinopril 40 mg tablet 40 mg PO DAILY furosemide 20 mg tablet 20 mg PO QAM [id number] acid 18-400 mg-mcg tablet 1 tab PO QAM (DME) blood sugar diagnostic Strip See Rx Instructions Not Applicable BID Qty: 10 Rx Instructions: As directed hydroxyzine HCl 50 mg tablet 50 mg PO Q8H PRN (Reason: anxiety) trazodone 150 mg tablet 150 mg PO BEDTIME clonidine HCl 0.1 mg tablet 0.2 mg PO BEDTIME Qty: 60 11RF mecobalamin (vitamin B12) 1,000 mcg tablet,chewable 1,000 mcg PO DAILY diclofenac sodium 75 mg tablet,delayed release (DR/EC) 75 mg PO BID aspirin 325 mg tablet,delayed release (DR/EC) 325 mg PO DAILY metoprolol succinate 200 mg tablet extended release 24 hr 200 mg PO DAILY (DME) lancets [OneTouch Delica Plus Lancet] 33 gauge misc See Rx Instructions topical .MEDSUPPLY Qty: 100 Rx Instructions: As directed verapamil 180 mg tablet extended release 180 mg PO DAILY dexlansoprazole [Dexilant] 60 mg capsule,biphase delayed releas 60 mg PO DAILY 30 Days Qty: 30 3RF Trulance 3 mg tablet 3 mg PO DAILY Qty: 30 3RF metformin 500 mg tablet extended release 24 hr 1,000 mg PO BID 30 Days Qty: 120 11RF Jardiance 25 mg tablet 25 mg PO DAILY 30 Days Qty: 30 11RF cholecalciferol (vitamin D3) 50 mcg (2,000 unit) tablet 50 mcg PO QAM 30 Days Qty: 30 11RF pioglitazone 15 mg tablet 15 mg PO DAILY 30 Days Qty: 30 11RF Discharge Orders: Discharge Order (Routine); Ordered 03/04/22 Ordered By: Zayra Devi Diet: Diabetic diet Activity on Discharge: As tolerated Stand Alone Forms: Patient Portal Discharge page Care Plan Goals: Resolve upper respiratory infection with supportive care Resolve COPD exacerbation Health Concerns: Acute COPD exacerbation due to viral rhinovirus infection Anxiety Plan of Treatment: Acute COPD exacerbation with rhinovirus -Rhinovirus is a common viral illness that causes upper respiratory symptoms such as congestion, cough, and can exacerbate chronic lung diseases such as COPD -Take benzonatate 3 times daily and robitussin with codeine every 4 hours as needed for cough. Take before bed as well to help you sleep. Do not drive on the robitussin with codeine with is a narcotic. -The robitussin with codeine should help with the chest and back discomfort from coughing, and you can also take tylenol -You were treated with IV steroids. Your lungs are now clear with minor expiratory wheezing, you do not require oxygen, and your vital signs are stable. You can continue treatment at home with oral prednisone 50mg daily x 3 days (next dose due tomorrow am) and azithromycin (1 dose left due to tomorrow am) -You did not require supplemental oxygen. In the ED you were placed on bipap due to your increased work of breathing. Based on yoru blood gases this was related to hyperventilation from anxiety. You should continue working to treat your anxiety as this will cause faster breathing -Use albuterol as needed -Follow up with your PCP soon Assessment: As above
[2022-03-04 16:35] VITALS: BP 143/65; PULSE 71; PULSE 78; RESP 14; O2SAT 98
[2022-03-04] MEDS: Azithromycin 500 MG TABLET PO (16:54)
== END 2022-03-04 17:20 | disposition home or self-care (01) ==
LOC: HO.ED 15:54 → HO.EDOVER 18:33 → HO.S3 23:59
PROVIDERS: Admitting Provider Physician Assistant; Emergency Provider Emergency Medicine; PCP Nurse Practitioner Primary Care; Visit Provider Physician Assistant
DX: J44.1 Chronic obstructive pulmonary disease with (acute) exacerbation (principal); B97.19 Other enterovirus as the cause of diseases classified elsewhere; J06.9 Acute upper respiratory infection, unspecified; R06.02 Shortness of breath; I10 Essential (primary) hypertension; K21.9 Gastro-esophageal reflux disease without esophagitis; E11.9 Type 2 diabetes mellitus without complications; E78.5 Hyperlipidemia, unspecified; F32.A Depression, unspecified; F41.9 Anxiety disorder, unspecified; E66.9 Obesity, unspecified; Z68.35 Body mass index [BMI] 35.0-35.9, adult; Z85.41 Personal history of malignant neoplasm of cervix uteri; Z79.4 Long term (current) use of insulin; Z20.822 Contact with and (suspected) exposure to COVID-19; Z79.02 Long term (current) use of antithrombotics/antiplatelets; Z79.899 Other long term (current) drug therapy; Z79.82 Long term (current) use of aspirin
CPT/HCPCS: 36415; 71045; 80053; 81001; 82803; 82947; 83880; 84484; 85025; 87040; 87633; 93005; 94640; 94660; 96360; 96361; 96374; 96375; 96376; 99218; 99285; J1170; J1885; J2060; J2405; J2930

== ENCOUNTER 2022-03-24 06:15 | Emergency (ER) | payer OTHER, SELFPAY ==
--- NOTE | ~2022-03-24 | CT_ITS ---
EXAMINATION: CT ABDOMEN AND PELVIS WITH CONTRAST CLINICAL INFORMATION: Back pain and elevated lipase level. COMPARISON: 01/09/2022. TECHNIQUE: Multidetector volumetric images were obtained from the superior aspect of the liver through the pubic symphysis following administration 85 mL of Omnipaque 350 intravenous contrast. Sagittal and coronal reformatted images were obtained on the technologist's workstation. Oral contrast: No This CT examination was performed using dose optimization techniques as appropriate, variously including the following: *Automated exposure control *Adjustment of mA and/or kV according to patient size (this includes techniques or standardized protocols for targeted exams where dose is matched to indication/reason for exam; i.e. extremities or head) *Use of iterative reconstruction technique DLP: 712 mGy-cm FINDINGS: LUNG BASES: No acute abnormality. No pulmonary consolidation or pleural effusion. Old calcified granuloma within the right lower lobe. LIVER: Liver has normal size and contour. 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 No new findings. No suspicious liver lesion. GALLBLADDER AND BILIARY TREE: Gallbladder is surgically absent. Common duct is chronically, mildly dilated and measures up to approximately 0.9 cm AP diameter. PANCREAS: Normal. No edema, pancreatic ductal dilatation or mass. SPLEEN: Normal. ADRENAL GLANDS: Normal. KIDNEYS AND URETERS: Chronic cortical atrophy of the posterior upper pole of the left kidney where there appears to be an old calyceal diverticulum. 3.5 cm simple cortical cyst of the left lower pole. No renal imaging follow-up is recommended for simple cysts. No nephrolithiasis, hydronephrosis or perinephric edema. BLADDER: Normal. No calculi or wall thickening. BOWEL AND PERITONEUM: Stomach is unremarkable. No dilated bowel loops. The appendix is normal. Multiple diverticula of the distal descending and sigmoid colon without evidence of diverticulitis. No abdominal free fluid or free air. ABDOMINAL WALL: Unremarkable. VASCULATURE: Unremarkable. LYMPH NODES: No pathologic sized lymph nodes in the abdomen or pelvis. No inguinal lymphadenopathy. PELVIC VISCERA: Status post hysterectomy. No adnexal mass. No pelvic free fluid. MUSCULOSKELETAL: The visualized lower thoracic and lumbar vertebra have normal height and alignment. Multilevel osteophyte formation of the mildly degenerated spine. There is facet osteoarthritis at L4-5 and L5-S1. No suspicious bone lesions. No evidence of lumbar spinal canal stenosis. CT/CT abdomen pelvis w IV con IMPRESSION: * No acute findings compared to 01/09/2022. No imaging evidence of pancreatitis. * Common duct is chronically mildly dilated, status post cholecystectomy. * Diverticulosis of the distal descending and sigmoid colon without diverticulitis.
--- NOTE | ~2022-03-24 | XR_ITS ---
EXAMINATION: XR CHEST CLINICAL INFORMATION: Dizziness, cough, weakness COMPARISON: 03/03/2022 TECHNIQUE: 2 views of the chest were obtained. FINDINGS: Lungs are well expanded and clear. No consolidation or pleural effusion. Cardiac silhouette is normal in size. The hilar contours are normal. Trachea is midline in position. The visualized bones are intact. XR/XR chest 2V IMPRESSION: No acute cardiopulmonary findings.
[2022-03-24 06:25] VITALS: BP 188/71; PULSE 83; PULSE 90; RESP 20; TEMP 36.8; O2SAT 97; BMI 32.4
[2022-03-24 07:17] VITALS: BP 181/80; PULSE 74; RESP 15; TEMP 36.7; O2SAT 97
--- NOTE | 2022-03-24 07:22 | PC.NURSE ---
assumed care of patient, pt complaining of abdominal pain, MD made aware. VSS at this time
[2022-03-24 07:38] VITALS: O2SAT 98
--- NOTE | 2022-03-24 07:55 | ED_ITS ---
HPI - Asthma General Chief Complaint: Upper Respiratory Symptoms Stated Complaint: KNOWN PNEUMONIA,WORSENING COUGH Time Seen by Provider: 03/24/22 07:50 Source: patient Mode of arrival: ambulatory Limitations: no limitations History of Present Illness HPI Narrative: 59-year-old female with presents to the emergency department complaining of continued cough body aches. Patient was here approximately 3 weeks ago for an upper respiratory infection that went to her lungs patient was found to be hyperventilating with need for BiPAP for short period of time. Patient was discharged home has been doing well she states she has not felt completely better. She has tried to use inhaler relief and if she has a headache and back and chest pain. With coughing. On arrival her vitals are okay other than she is hypertensive. MD complaint: shortness of breath and wheezing Related Data Home Medications Medication Instructions Recorded Confirmed aspirin 325 mg tablet,delayed 325 mg PO DAILY 02/28/20 03/03/22 release diclofenac sodium 75 mg 75 mg PO BID 02/28/20 03/03/22 tablet,delayed release mecobalamin (vitamin B12) 1,000 1,000 mcg PO DAILY 02/28/20 03/03/22 mcg chewable tablet hydrochlorothiazide 50 mg tablet 50 mg PO DAILY 02/29/20 03/03/22 blood sugar diagnostic #10 ea 03/19/20 12/11/21 fluticasone propionate 110 1 puff inhalation DAILY 03/19/20 03/03/22 mcg/actuation HFA aerosol inhaler furosemide 20 mg tablet 20 mg PO DAILY 03/19/20 03/03/22 hydroxyzine HCl 50 mg tablet 50 mg PO Q8H PRN anxiety 03/19/20 03/03/22 lisinopril 40 mg tablet 40 mg PO DAILY 03/19/20 03/03/22 multivitamin-ferrous 1 tab PO QAM 03/19/20 03/03/22 fumarate-folic acid 18 mg-400 mcg tablet tramadol 50 mg tablet 50 mg PO TID PRN Pain 03/19/20 03/03/22 metoprolol succinate 200 mg 200 mg PO DAILY 07/09/20 03/03/22 tablet,extended release 24 hr trazodone 150 mg tablet 150 mg PO BEDTIME 07/09/20 03/03/22 lancets 33 gauge (Jenelle Decker #100 ea 04/17/21 12/11/21 Plus Lancet) verapamil 180 mg tablet,extended 180 mg PO DAILY 10/17/21 03/03/22 release semaglutide 0.25 mg or 0.5 mg (2 0.5 mg subcut MO 03/03/22 03/03/22 mg/1.5 mL) subcutaneous pen injector (Ozempic) albuterol sulfate 0.63 mg/3 mL 1 amp inhalation Q4-6H PRN wheezing 03/24/22 solution for nebulization aspirin 81 mg tablet,delayed 1 tab PO DAILY 03/24/22 release cholecalciferol (vitamin D3) 50 50 mcg PO DAILY 03/24/22 mcg (2,000 unit) tablet insulin glargine 100 unit/mL (3 34 unit subcut BEDTIME 03/24/22 mL) subcutaneous pen (Lantus Solostar U-100 Insulin) levothyroxine 75 mcg tablet 75 mcg PO DAILY@0630 03/24/22 multivitamin-ferrous 1 tab PO DAILY 03/24/22 fumarate-folic acid 18 mg-400 mcg tablet (Certavite-Antioxidant) venlafaxine 150 mg 1 cap PO DAILY 03/24/22 03/24/22 capsule,extended release 24 hr Previous Rx's Medication Instructions Recorded clonidine HCl 0.1 mg tablet 0.2 mg PO BEDTIME #60 tabs 07/03/20 acetaminophen 650 mg 650 mg PO Q8H PRN pain #90 tabs 09/11/20 tablet,extended release meclizine 25 mg tablet 25 mg PO DAILY PRN dizziness #20 02/11/21 tabs cyclobenzaprine 10 mg tablet 10 mg PO TID PRN muscle spasm #10 06/05/21 tabs dexlansoprazole 60 mg 60 mg PO DAILY 30 days #30 caps 10/17/21 capsule,biphase delayed release (Dexilant) plecanatide 3 mg tablet (Trulance) 3 mg PO DAILY #30 tabs 10/17/21 empagliflozin 25 mg tablet 25 mg PO DAILY 30 days #30 tabs 11/20/21 (Jardiance) metformin 500 mg tablet,extended 1,000 mg PO BID 30 days #120 tabs 11/20/21 release 24 hr pioglitazone 15 mg tablet 15 mg PO DAILY 30 days #30 tabs 11/20/21 rosuvastatin 40 mg tablet 40 mg PO DAILY 30 days #30 tabs 11/27/21 gabapentin 100 mg capsule 300 mg PO BEDTIME #90 caps 12/24/21 oxycodone 5 mg tablet 5 mg PO Q6H PRN pain #20 tabs 01/09/22 albuterol sulfate 90 mcg/actuation 90 mcg inhalation Q4H PRN Wheezing 03/04/22 aerosol inhaler (Ventolin HFA) #8.5 grams benzonatate 100 mg capsule 100 mg PO TID #21 caps 03/04/22 codeine 10 mg-guaifenesin 100 mg/5 10 ml PO Q4H PRN Cough #200 mL 03/04/22 mL oral liquid benzonatate 100 mg capsule 100 mg PO BID PRN cough #20 caps 03/24/22 prednisone 10 mg tablet 10 mg PO DIRECTED copd #52 tabs 03/24/22 Allergies Allergy/AdvReac Type Severity Reaction Status Date / Time No Known Allergies Allergy Verified 12/11/21 15:14 [No Known Allergies*] Review of Systems Review of Systems: Review of systems: General: Patient denies any fever chills recent illness or falls Musculoskeletal: back pain or body aches Denies or other injuries HEENT: denies headache, runny nose, ear pain Respiratory: shortness of breath, cough Cardiovascular: no chest pain or palpitations : denies dysuria, frequency Abdomen: no nausea vomiting denies abdominal pain Extremities: no swelling, no pain Skin: no diaphoresis Yes all other systems are reviewed and are negative PMFSH Past Medical History Medical History (Updated 03/24/22 @ 11:03 by Cleveland Parsons DO) BMI 35.0-35.9,adult Cervical cancer Constipation Depression with anxiety Diabetes mellitus with hyperglycemia Erosive gastritis Essential hypertension Fibromyalgia GERD (gastroesophageal reflux disease) Meir's disease HTN (hypertension) Hyperlipidemia LDL goal <100 Hyperparathyroidism Leg edema, left Multinodular thyroid Osteoarthritis of left knee Osteopenia Other obesity due to excess calories Other specified acquired hypothyroidism Skin lesion of chest wall T2DM (type 2 diabetes mellitus) Thyroid nodule Type 2 diabetes mellitus with diabetic polyneuropathy Vitamin B12 deficiency Vitamin D deficiency Surgical History History of arthroplasty of right knee History of bilateral carpal tunnel release History of cholecystectomy History of esophagogastroduodenoscopy (EGD) Hx of arthroscopy of left knee Hx of bilateral oophorectomy Hx of colonoscopy Hx of foot surgery Hx of hysterectomy Family History Family History Father CVD (cardiovascular disease) Diabetes mellitus Stroke Mother Stroke Diabetes mellitus Breast cancer Hyperthyroidism Social History Social History Household Members: Significant Other Housing: House Are you a primary body care manager to a significant other at home: No Do you presently have visiting nurse or other home services: No Alcohol intake: never Patient Tobacco Use Status: Never used Tobacco Smoked in Last 30 Days: No Use of substances other than those prescribed or required for medical reasons: No Advance Directives: No Advance Directives Information Provided: No service: No 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al status: disabled 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: Right Handed Physical Exam Vital Signs: Vital Signs: Last Vital Signs Temp 97.8 F 03/24/22 10:53 Pulse 83 03/24/22 10:53 Resp 16 03/24/22 10:53 BP 173/80 H 03/24/22 10:53 Pulse Ox 96 03/24/22 10:53 O2 Del Method 03/24/22 10:53 BMI result Body Mass Index 32.4 General: Well-appearing well-nourished in no signs of distress HEENT: Normocephalic atraumatic Neck: No signs of JVD, no masses no tenderness or lymphadenopathy Cardiovascular: Regular rate and rhythm Respiratory: End-expiratory wheezes bilaterally Abdomen: Soft nontender no masses Extremities: Normal pedal pulses no signs of edema Skin: Dry warm no rashes Back: No tenderness full ROM Medications Administered Discontinued Medications Generic Name Dose Route Start Last Admin Trade Name Yola PRN Reason Stop Dose Admin Acetaminophen 650 mg 03/24/22 07:56 03/24/22 08:09 Acetaminophen 325 Mg Tablet PO 03/24/22 07:57 650 mg ONCE ONE Administration Albuterol Sulfate 4 puff 03/24/22 07:56 03/24/22 08:32 Albuterol Sulfate 90 Mcg 8 Gm Inhaler INHALE 03/24/22 07:57 4 puff ONCE ONE Administration Diphenhydramine HCl 25 mg 03/24/22 07:56 03/24/22 08:10 Diphenhydramine Hcl 50 Mg/Ml Vial IVPUSH 03/24/22 07:57 25 mg ONCE ONE Administration Sodium Chloride 1,000 mls @ 999 mls/hr 03/24/22 08:00 03/24/22 09:00 Ns IV 03/24/22 09:00 Infused .Q1H1M APARNA Infusion Iohexol 85 ml 03/24/22 09:22 03/24/22 09:23 Iohexol 350 Mg/Ml 100 Ml Infus..Btl IV 03/24/22 09:23 85 ml ONCE ONE Administration Metoclopramide HCl 10 mg 03/24/22 07:56 03/24/22 08:10 Metoclopramide Hcl 10 Mg/2 Ml Vial IVPUSH 03/24/22 07:57 10 mg ONCE ONE Administration Prednisone 60 mg 03/24/22 07:56 03/24/22 08:09 Prednisone 20 Mg Tablet PO 03/24/22 07:57 60 mg ONCE ONE Administration Medical Decision Making Medical Decision Making MDM Narrative: patient appears to have continued respiratory issues since her most recent infection which appears to be stable at this time she does have some end- expiratory wheezing give some breathing treatments and prednisone and reassess. I do feel that she will be safe to go home patient has a history of anxiety and starts hyperventilating on previous visits. she does look well at this time other than blood pressure being slightly elevated patient is not taking her medications this morning. She has not taken anything for her body aches ago think she is ACS is no signs of PE she is not tachycardic or hypoxic. I did educate the patient explaining that typically with some gets a cold it gets into the chest this can last anywhere from 6-8 weeks with her COPD on the order baseline is I do feel this could be close to where she is at baseline I do feel comfortable continuing with this workup. Labs show a elevated lipase. She does have some epigastric pain and back pain. I will send for CT at this time. 1100 CT is negative for pancreatitis. She looks well feeling better. Given a spacer which she had not been using. I will send home on prednisone taper and tessalon perles Differential Diagnosis Differential Diagnoses: The differential diagnosis associated with the presentation includes COPD exacerbation pneumonia anxiety hyperventilation Less likely ACS or PE Admission/Observation Consideration of admission/observation: Escalation of care including a dmission/observation considered Consult Healthcare Provider Management of the patient was discussed with: Hospitalist Zayra Easton Lab Data MDM Lab Attestation statement: I reviewed the patient's lab results. 03/24/22 08:13 03/24/22 08:13 Labs: Lab Results 03/24/22 03/24/22 03/24/22 Range/Units 08:13 08:13 08:13 WBC 9.4 (4.8-10.8) X10*3/uL RBC 5.24 (4.20-5.50) X10*6/uL Hgb 14.2 (12.0-16.0) g/dl Hct 42.8 (37.0-47.0) % MCV 81.7 (80.0-98.0) fL MCH 27.1 (27.0-33.0) pg MCHC 33.2 (31.0-35.0) g/dl RDW 13.8 (11.0-16.0) % Plt Count 238 (160-400) X10*3/uL MPV 9.6 (9.4-12.3) fL Immature Gran % (Auto) 0.2 (0.0-0.4) % Neut % (Auto) 57.5 (45-73) % Lymph % (Auto) 24.8 (20-40) % [place] % (Auto) 7.9 (2-11) % Eos % (Auto) 8.5 H (0-4) % Baso % (Auto) 1.1 (0-2) % Lymph # (Auto) 2.3 (1.2-4.9) X10*3/uL [place] # (Auto) 0.7 (0.1-1.2) X10*3/uL Eos # (Auto) 0.8 H (0.0-0.4) X10*3/uL Baso # (Auto) 0.1 (0.0-0.2) X10*3/uL Abs Immat Gran (auto) 0.02 (0.00-0.03) X10*3/uL Absolute Neuts (auto) 5.4 (2.0-8.3) x10*3/uL Absolute Nucleated RBC 0.000 (0.0-0.012) X10*3/uL Nucleated RBC % (auto) 0.0 (0.0-0.2) /100WBC Sodium 140 (135-145) mmol/L Potassium 4.3 (3.3-5.1) mmol/L Chloride 108 (96-108) mmol/L Carbon Dioxide 25 (22-29) mmol/L Anion Gap 11 L (12-20) BUN 13 (9-16) mg/dL Creatinine 0.85 (0.5-1.4) mg/dL Estim Creat Clear Calc 69.5 Estimated GFR > 60 Random Glucose 205 H (60-115) mg/dL Calcium 9.7 (8.4-10.2) mg/dL Total Bilirubin 0.5 (0.0-1.0) mg/dL Direct Bilirubin 0.2 (0.0-0.5) mg/dL AST 12 (5-31) U/L ALT 16 (0-31) U/L Alkaline Phosphatase 106 (39-117) U/L Total Protein 6.5 (6.5-8.0) g/dL Albumin 3.8 (3.5-5.0) g/dL Lipase 111 H (8-78) U/L Influenza Type A (PCR) NEGATIVE (Negative) Influenza Type B (PCR) NEGATIVE (Negative) RSV RNA Qual (PCR) NEGATIVE (Negative) SARS-CoV-2 RNA (RT-PCR) NEGATIVE (Negative) Independent Interpretation I performed an independent interpretation of an: EKG and Plain X-Ray Radiology Impression Discussion of test interpretation with radiology: I have reviewed the radiologist's reading. External Record Review External record reviewed: Inpatient record Prescription Management I considered prescription management with: Other Discharge Plan Discharge Clinical Impression: Acute exacerbation of chronic obstructive pulmonary disease Patient Disposition: Home, Self-Care Instructions: How to Use a Metered-Dose Inhaler (ED), COPD (Chronic Obstructive Pulmonary Disease) (ED), Chronic Bronchitis (ED) Additional Instructions: Please call to follow up with your doctor. If you have any other concerns please return to the ED. Prescriptions: New prednisone 10 mg tablet 10 mg PO DIRECTED Qty: 52 0RF Rx Instructions: see taper instructions. Please take 6 tabs for 5 days then 5 tabs for 5 days then 4 tabs for 5 days then 3 tabs for 5 days then 2 tabs for 5 days then 1 tab for 5days benzonatate 100 mg capsule 100 mg PO BID PRN (Reason: cough) Qty: 20 0RF No Action acetaminophen 650 mg tablet extended release 650 mg PO Q8H PRN (Reason: pain) Qty: 90 3RF rosuvastatin 40 mg tablet 40 mg PO DAILY 30 Days Qty: 30 11RF gabapentin 100 mg capsule 300 mg PO BEDTIME Qty: 90 3RF meclizine 25 mg tablet 25 mg PO DAILY PRN (Reason: dizziness) Qty: 20 0RF albuterol sulfate 0.63 mg/3 mL solution for nebulization 1 amp inhalation Q4-6H PRN (Reason: wheezing) venlafaxine 150 mg capsule,extended release 24hr 1 cap PO DAILY aspirin 81 mg tablet,delayed release (DR/EC) 1 tab PO DAILY Certavite-Antioxidant 18-400 mg-mcg tablet 1 tab PO DAILY levothyroxine 75 mcg tablet 75 mcg PO DAILY@0630 insulin glargine [Lantus Solostar U-100 Insulin] 100 unit/mL (3 mL) insulin pen 34 unit subcut BEDTIME cholecalciferol (vitamin D3) 50 mcg (2,000 unit) tablet 50 mcg PO DAILY cyclobenzaprine 10 mg tablet 10 mg PO TID PRN (Reason: muscle spasm) Qty: 10 0RF oxycodone 5 mg tablet 5 mg PO Q6H PRN (Reason: pain) Qty: 20 0RF Rx Instructions: Partial Fill upon patient request. Ozempic 0.25 mg or 0.5 mg(2 mg/1.5 mL) pen injector 0.5 mg subcut MO Rx Instructions: Start with 0.25 mg once a week x 4 weeks, then increase to 0.5 mg once a week thereafter codeine-guaifenesin 10-100 mg/5 mL Liquid 10 ml PO Q4H PRN (Reason: Cough) Qty: 200 0RF benzonatate 100 mg capsule 100 mg PO TID Qty: 21 0RF albuterol sulfate [Ventolin HFA] 90 mcg/actuation HFA aerosol inhaler 90 mcg inhalation Q4H PRN (Reason: Wheezing) Qty: 8.5 0RF hydrochlorothiazide 50 mg tablet 50 mg PO DAILY tramadol 50 mg tablet 50 mg PO TID PRN (Reason: Pain) fluticasone propionate 110 mcg/actuation HFA aerosol inhaler 1 puff inhalation DAILY lisinopril 40 mg tablet 40 mg PO DAILY furosemide 20 mg tablet 20 mg PO DAILY urzwafhlqynk-qtty-dopcx acid 18-400 mg-mcg tablet 1 tab PO QAM (DME) blood sugar diagnostic Strip See Rx Instructions Not Applicable BID Qty: 10 Rx Instructions: As directed hydroxyzine HCl 50 mg tablet 50 mg PO Q8H PRN (Reason: anxiety) trazodone 150 mg tablet 150 mg PO BEDTIME clonidine HCl 0.1 mg tablet 0.2 mg PO BEDTIME Qty: 60 11RF mecobalamin (vitamin B12) 1,000 mcg tablet,chewable 1,000 mcg PO DAILY diclofenac sodium 75 mg tablet,delayed release (DR/EC) 75 mg PO BID aspirin 325 mg tablet,delayed release (DR/EC) 325 mg PO DAILY metoprolol succinate 200 mg tablet extended release 24 hr 200 mg PO DAILY (DME) lancets [OneTouch Delica Plus Lancet] 33 gauge misc See Rx Instructions topical .MEDSUPPLY Qty: 100 Rx Instructions: As directed verapamil 180 mg tablet extended release 180 mg PO DAILY dexlansoprazole [Dexilant] 60 mg capsule,biphase delayed releas 60 mg PO DAILY 30 Days Qty: 30 3RF Trulance 3 mg tablet 3 mg PO DAILY Qty: 30 3RF metformin 500 mg tablet extended release 24 hr 1,000 mg PO BID 30 Days Qty: 120 11RF Jardiance 25 mg tablet 25 mg PO DAILY 30 Days Qty: 30 11RF pioglitazone 15 mg tablet 15 mg PO DAILY 30 Days Qty: 30 11RF
--- NOTE | 2022-03-24 07:56 | ECG_ITS ---
Test Reason : weakness Blood Pressure : / mmHG Vent. Rate : 078 BPM Atrial Rate : 078 BPM P-R Int : 138 ms QRS Dur : 100 ms QT Int : 412 ms P-R-T Axes : 049 036 048 degrees QTc Int : 469 ms Normal sinus rhythm Nonspecific T wave abnormality Abnormal ECG When compared with ECG of 03-MAR-2022 23:11, Nonspecific T wave abnormality no longer evident in Inferior leads Nonspecific T wave abnormality, improved in Lateral leads Referred By: Cleveland Parsons Electronically Signed By:Joe Purcell
[2022-03-24] MEDS: Acetaminophen 325 MG TABLET 650 MG PO (08:09)
[2022-03-24] MEDS: predniSONE 20 MG TABLET 60 MG PO (08:09)
[2022-03-24] MEDS: Metoclopramide HCl 10 MG/2 ML VIAL IVPUSH (08:10)
[2022-03-24] MEDS: 0.9 % Sodium Chloride 1,000 ML 999 ML IV (08:10)
[2022-03-24] MEDS: diphenhydrAMINE HCL 50 MG/ML VIAL 25 MG IVPUSH (08:10)
[2022-03-24 08:19] LABS: MANUAL DIFF FLAG NO
[2022-03-24 08:22] LABS: Basophils Absolute Auto 0.1 X10*3/uL (0.0-0.2); Basophils Percent Auto 1.1 % (0-2); Eosinophils Absolute Auto 0.8 X10*3/uL (0.0-0.4); Eosinophils Percent Auto 8.5 % (0-4); Hematocrit 42.8 % (37.0-47.0); Hemoglobin 14.2 g/dl (12.0-16.0); Imm Gran Abs Auto 0.02 X10*3/uL (0.00-0.03); Imm Gran Pct Auto 0.2 % (0.0-0.4); Lymphocytes Absolute Auto 2.3 X10*3/uL (1.2-4.9); Lymphocytes Percent Auto 24.8 % (20-40); Mean Corpuscular HGB Conc 33.2 g/dl (31.0-35.0); Mean Corpuscular Hemoglobin 27.1 pg (27.0-33.0); Mean Corpuscular Volume 81.7 fL (80.0-98.0); Mean Platelet Volume 9.6 fL (9.4-12.3); Monocytes Absolute Auto 0.7 X10*3/uL (0.1-1.2); Monocytes Percent Auto 7.9 % (2-11); Neutrophils Absolute Auto 5.4 x10*3/uL (2.0-8.3); Neutrophils Percent Auto 57.5 % (45-73); Platelet Count 238 X10*3/uL (160-400); Red Blood Count 5.24 X10*6/uL (4.20-5.50); Red Cell Distribution Width 13.8 % (11.0-16.0); White Blood Count 9.4 X10*3/uL (4.8-10.8)
[2022-03-24] MEDS: Albuterol Sulfate 90 MCG 8 GM INHALER 4 PUFF INHALE (08:32)
[2022-03-24 08:46] LABS: Alanine Aminotransferase 16 U/L (0-31); Albumin Level 3.8 g/dL (3.5-5.0); Alkaline Phosphatase 106 U/L (39-117); Anion Gap 11 (12-20); Aspartate Amino Transferase 12 U/L (5-31); Bilirubin Direct 0.2 mg/dL (0.0-0.5); Bilirubin Total 0.5 mg/dL (0.0-1.0); Blood Urea Nitrogen 13 mg/dL (9-16); Calcium 9.7 mg/dL (8.4-10.2); Carbon Dioxide 25 mmol/L (22-29); Chloride 108 mmol/L (96-108); Creatinine Clr Calc Pharmacy 69.5; Estimated Glomerular Filt Rate > 60; Glucose Random 205 mg/dL (60-115); Lipase 111 U/L (8-78); Potassium 4.3 mmol/L (3.3-5.1); Sodium 140 mmol/L (135-145); Total Protein 6.5 g/dL (6.5-8.0)
[2022-03-24 09:17] LABS: Influenza A PCR NEGATIVE (Negative); Influenza B PCR NEGATIVE (Negative); Resp Syncy Virus RNA Qual PCR NEGATIVE (Negative); SARS COV2 PCR INHOUSE NEGATIVE (Negative)
[2022-03-24] MEDS: iohexoL 350 MG/ML 100 ML INFUS..BTL 85 ML IV (09:23)
[2022-03-24 09:31] VITALS: BP 154/62; PULSE 76; RESP 15; TEMP 36.9
[2022-03-24 10:53] VITALS: BP 173/80; PULSE 83; RESP 16; TEMP 36.6; O2SAT 96
[2022-03-24 11:10] VITALS: BP 132/65; PULSE 87; RESP 18; TEMP 36.8; O2SAT 98
== END 2022-03-24 11:10 | disposition home or self-care (01) ==
PROVIDERS: Emergency Provider Student in an Organized Health Care Education/Training Program; PCP Nurse Practitioner Primary Care
DX: J44.1 Chronic obstructive pulmonary disease with (acute) exacerbation (principal); E11.9 Type 2 diabetes mellitus without complications; I10 Essential (primary) hypertension; E78.5 Hyperlipidemia, unspecified; Z20.822 Contact with and (suspected) exposure to COVID-19; Z20.828 Contact with and (suspected) exposure to other viral communicable diseases; Z79.82 Long term (current) use of aspirin; Z79.899 Other long term (current) drug therapy; Z79.4 Long term (current) use of insulin; Z79.02 Long term (current) use of antithrombotics/antiplatelets
CPT/HCPCS: 0241U; 36415; 71046; 74177; 80048; 80076; 83690; 85025; 93005; 96361; 96374; 96375; 99285; J1200; J2765; Q9967

== ENCOUNTER → 2022-05-29 14:44 | Outpatient (BNVA) | payer OTHER, SELFPAY | PROVIDERS: PCP Nurse Practitioner Primary Care; Visit Provider Hospitalist | DX: J45.909 Unspecified asthma, uncomplicated (principal); D72.10 Eosinophilia, unspecified; R05.8 Other specified cough; T46.4X5A Adverse effect of angiotensin-converting-enzyme inhibitors, initial encounter | CPT/HCPCS: 99202 ==

== ENCOUNTER 2022-06-02 11:19 | Outpatient (REF) | payer OTHER, SELFPAY ==
[2022-06-02 11:30] LABS: MANUAL DIFF FLAG NO
[2022-06-02 12:11] LABS: Basophils Absolute Auto 0.1 X10*3/uL (0.0-0.2); Basophils Percent Auto 0.8 % (0-2); Eosinophils Absolute Auto 0.3 X10*3/uL (0.0-0.4); Eosinophils Percent Auto 2.2 % (0-4); Hematocrit 46.1 % (37.0-47.0); Imm Gran Abs Auto 0.05 X10*3/uL (0.00-0.03); Imm Gran Pct Auto 0.4 % (0.0-0.4); Lymphocytes Absolute Auto 3.8 X10*3/uL (1.2-4.9); Lymphocytes Percent Auto 29.4 % (20-40); Mean Corpuscular HGB Conc 32.5 g/dl (31.0-35.0); Mean Corpuscular Hemoglobin 26.5 pg (27.0-33.0); Mean Corpuscular Volume 81.6 fL (80.0-98.0); Mean Platelet Volume 9.8 fL (9.4-12.3); Monocytes Absolute Auto 1.1 X10*3/uL (0.1-1.2); Monocytes Percent Auto 8.1 % (2-11); Neutrophils Absolute Auto 7.7 x10*3/uL (2.0-8.3); Neutrophils Percent Auto 59.1 % (45-73); Platelet Count 355 X10*3/uL (160-400); Red Blood Count 5.65 X10*6/uL (4.20-5.50); Red Cell Distribution Width 14.3 % (11.0-16.0)
[2022-06-02 13:01] LABS: Erythrocyte Sedimentation Rate 8 MM/HR (0-20)
[2022-06-03 11:29] LABS: IgA 333 mg/dL (70-320); IgG 1008 mg/dL (600-1540); IgM 37 mg/dL (50-300)
[2022-06-03 18:03] LABS: Immunoglobulin E 15 kU/L (<OR=114)
== END 2022-06-02 11:20 | disposition home or self-care (01) ==
LOC: HO.LAB 11:19
PROVIDERS: Absent Provider Hospitalist; PCP Nurse Practitioner Primary Care; Visit Provider Internal Medicine
DX: D72.10 Eosinophilia, unspecified (principal); E11.9 Type 2 diabetes mellitus without complications; E78.5 Hyperlipidemia, unspecified; I10 Essential (primary) hypertension; E21.3 Hyperparathyroidism, unspecified; E04.2 Nontoxic multinodular goiter; E55.9 Vitamin D deficiency, unspecified
CPT/HCPCS: 36415; 82784; 82785; 82947; 83036; 85025; 85652; 99212

== ENCOUNTER 2022-06-13 13:49 | Outpatient (REF) | payer OTHER, SELFPAY ==
--- NOTE | 2022-06-13 17:22 | PFT_ITS ---
Forced vital capacity 69%, FEV1 72%. FEV1/FVC ratio is 82. FEF25/75 78% and MVV 71%. Post bronchodilator therapy, there is no significant change. Total lung capacity 75% and residual volume 77%. Diffusion capacity is 75%. CONCLUSION: Mild degree of restrictive pulmonary disorder. No significant obstructive airway disorder. No response to bronchodilator therapy. MD ERIKA Capellan/MODL / [id number]
== END 2022-06-13 13:50 | disposition home or self-care (01) ==
LOC: HO.RESP 13:49
PROVIDERS: PCP Nurse Practitioner Primary Care; Visit Provider Hospitalist
DX: J45.909 Unspecified asthma, uncomplicated (principal); D72.10 Eosinophilia, unspecified; Z91.09 Other allergy status, other than to drugs and biological substances
CPT/HCPCS: 36415; 82785; 86003; 94060; 94727; 94729

== ENCOUNTER → 2022-06-19 13:42 | Outpatient (BNVA) | payer OTHER, SELFPAY | PROVIDERS: PCP Nurse Practitioner Primary Care; Visit Provider Nurse Practitioner | DX: Z01.818 Encounter for other preprocedural examination (principal); K59.04 Chronic idiopathic constipation; D12.6 Benign neoplasm of colon, unspecified | CPT/HCPCS: 99212 ==

== ENCOUNTER 2022-08-15 12:08 | Outpatient (REF) | payer OTHER, SELFPAY ==
[2022-08-15 13:27] LABS: Estimated Average Glucose 186 mg/dL; Hemoglobin A1c % 8.1 %
[2022-08-15 13:52] LABS: Alanine Aminotransferase 28 U/L (0-31); Alkaline Phosphatase 110 U/L (39-117); Anion Gap 14 (12-20); Aspartate Amino Transferase 18 U/L (5-31); Bilirubin Total 0.6 mg/dL (0.0-1.0); Blood Urea Nitrogen 15 mg/dL (9-16); Calcium 9.7 mg/dL (8.4-10.2); Carbon Dioxide 29 mmol/L (22-29); Chloride 100 mmol/L (96-108); Cholesterol 143 mg/dL; Estimated Glomerular Filt Rate 52; Glucose Random 143 mg/dL (60-115); HDL Cholesterol 48 mg/dL; LDL Cholesterol Calculated 43 mg/dl; Phosphorus 3.9 mg/dL (2.7-4.5); Potassium 4.3 mmol/L (3.3-5.1); Sodium 139 mmol/L (135-145); Total Protein 6.9 g/dL (6.5-8.0); Triglycerides 261 mg/dL
[2022-08-15 14:14] LABS: Free T4 (Free Thyroxine) 1.16 ng/dL (0.71-1.85); Thyroid Stimulating Hormone 2.94 uIU/mL (0.32-4.0); Vitamin B12 195 pg/mL (200-900); Vitamin D 25-OH Total 33.8 ng/mL (>30)
[2022-08-15 15:23] LABS: Creatinine Urine 50.16 mg/dL; Microalbum/Creatinine Ratio Ur 23.9 ug/mg cr
[2022-08-17 10:58] LABS: LDL Cholesterol Direct 70 mg/dL (<100)
[2022-08-18 17:28] LABS: Calcium (PTHI) 9.7 mg/dL (8.6-10.4); PTHI 97 pg/mL (16-77)
== END 2022-08-15 12:09 | disposition home or self-care (01) ==
LOC: HO.LAB 12:08
PROVIDERS: Visit Provider Internal Medicine
DX: E21.3 Hyperparathyroidism, unspecified (principal); E04.2 Nontoxic multinodular goiter; E55.9 Vitamin D deficiency, unspecified; E11.9 Type 2 diabetes mellitus without complications
CPT/HCPCS: 36415; 80053; 80061; 82043; 82306; 82607; 83036; 83721; 83970; 84100; 84439; 84443

== ENCOUNTER 2022-08-29 13:40 | Outpatient (REF) | payer OTHER, SELFPAY ==
[2022-08-30 10:02] LABS: BV Int Neg Control Negative (Negative); BV Int Pos Control Positive (Positive)
== END 2022-08-29 13:41 | disposition home or self-care (01) ==
LOC: HO.LNP 13:40
PROVIDERS: PCP Nurse Practitioner Primary Care; Visit Provider Advanced Practice Midwife
DX: N89.8 Other specified noninflammatory disorders of vagina (principal)
CPT/HCPCS: 87480; 87510; 87660

== ENCOUNTER 2022-09-22 10:51 | Outpatient (AMB) | payer OTHER, SELFPAY ==
--- NOTE | 2022-09-22 10:52 | MHC.OFFVIS ---
Intake Intake Visit Reasons: F/U T2DM, Needs 40 minutes Allergies No Known Allergies [No Known Allergies*] Allergy (Verified 09/22/22 11:23) Medication List - Last Reconciled 09/22/22 by Yi Massey DO acetaminophen ER 650 mg PO Q8H PRN albuterol sulfate 90 mcg/actuation (Ventolin HFA) 90 mcg inhalation Q4H PRN albuterol sulfate 1 amp inhalation Q4-6H PRN aspirin 1 tab PO DAILY benzonatate 200 mg PO BID PRN 30 days blood sugar diagnostic As directed cholecalciferol (vitamin D3) 50 mcg PO DAILY clonidine HCl 0.2 mg (2 x 0.1 mg) PO BEDTIME clotrimazole-betamethasone 1-0.05 % 1 appl topical BID PRN 7 days cyclobenzaprine 10 mg PO TID PRN dexlansoprazole (Dexilant) 60 mg PO DAILY 30 days diclofenac sodium 75 mg PO BID empagliflozin (Jardiance) 25 mg PO DAILY 30 days fluticasone propionate 110 mcg/actuation 1 puff inhalation DAILY wbwkhycbpuq-exfbbukhd-vvjoutax 200-62.5-25 mcg (Trelegy Ellipta) 1 inh inhalation DAILY 30 days furosemide 20 mg PO DAILY gabapentin 300 mg (3 x 100 mg) PO BEDTIME hydrochlorothiazide 50 mg PO DAILY hydroxyzine HCl 50 mg PO Q8H PRN insulin glargine (Lantus Solostar U-100 Insulin) 34 units (0.34 mL) subcut BEDTIME lancets (OneTouch Delica Plus Lancet) As directed levothyroxine 75 mcg PO DAILY@0630 linaclotide (Linzess) 290 mcg PO QAM 30 days lisinopril 40 mg PO DAILY meclizine 25 mg PO DAILY PRN mecobalamin (vitamin B12) 1,000 mcg PO DAILY 30 days metformin ER 1,000 mg (2 x 500 mg) PO BID 30 days metoprolol succinate ER 200 mg PO DAILY wgmwhedywluc-nbcu-aaarv acid 18-400 mg-mcg (Certavite-Antioxidant) 1 tab PO DAILY peg 3350-electrolytes 236-22.74-6.74 -5.86 gram (Golytely) 240 mL PO Q10M 1 day pioglitazone 15 mg PO DAILY 30 days rosuvastatin 40 mg PO DAILY 30 days semaglutide (Ozempic) 0.5 mg subcut MO tramadol 50 mg PO TID PRN trazodone 150 mg PO BEDTIME verapamil ER 180 mg PO DAILY HPI HPI Comments History of Present Illness Details 66 YO Female with a PMHx of a NTMNG. She is seen in F/U for T2DM. 1) T2DM: Current regimen Metformin 1000 mg PO BID, Jardiance 25 mg PO daily, Pioglitazone 15 mg PO daily, Ozempic 0.5 mg once a week and Lantus 34 units qHS. Unable to download her meter today. Reports low sugars never. Treats lows with juice. Does not check sugar after to insure it is rising. Most recent A1C: 8.1% 08/15/2022, down from previous of 9.6% 06/02/2022. Does not have eyes checked yearly, last eye exam many years ago, unsure if retinopathy. Has neuropathy, does not see podiatry. Unsure if nephropathy, on Lisinopril 40 mg PO daily. UAC 23.9 08/15/2022. Has HLD, on Rosuvastatin 40 mg PO daily. LDL 70 08/15/2022. Denies CAD. Diet: High in refined carbs. Weight: Stable Has not had diabetes education. 2) NTMNG and Hyperparathyroidism: She was complaining of compressive symptoms and underwent an US of the thyroid 11/20/20. This revealed a heterogenous thyroid gland, with multiple subcentimeter nodules. It appeared the nodules had been incorrectly measured, so I scheduled her for an FNA biopsy where I remeasured the nodules myself. She underwent FNA biopsy of a RMP 1.2 cm nodule 03/01/2021, which benign cytology. She does complain of mild intermittent dysphagia to solids, but otherwise has no complaints. She did insist on a total thyroidectomy, and is scheduled for this in November. Preoperative labs revealed elevated PTH. She was asked to repeat these, which confirmed what appears to be secondary hyperparathyroidism. She did not undergo her surgery for unknown reasons. Her labs 04/10/2021 with Calcium 9.1, Albumin 4.0, PTH 113 and Vitamin D 31.8. She denies ever having kidney stones. She does report she recently started taking Calcium 600 mg, but only takes this once a day and often forgets. She is poorly compliant with her Vitamin D as well. DEXA revealed osteopenia of the spine and the hip. DEXA: 05/14/2021 FINDINGS: AP SPINE L1-L4: Current: BMD 0.978 g/cm2, Z-score -0.9, T-score -1.7, osteopenia, 0.0% no change from previous, 4.4% increase from baseline (<5% change is not significant). Prior: BMD 0.978 g/cm2. Baseline: BMD 0.937 g/cm2. LEFT FEMUR, NECK: Current: BMD 0.850 g/cm2, Z-score -0.4, T-score -1.4, osteopenia. Prior: BMD 0.916 g/cm2. Baseline: BMD 0.971 g/cm2. LEFT FEMUR, TOTAL: Current: BMD 0.993 g/cm2, Z-score 0.6, T-score -0.1, normal, 2.3% decrease from previous, 8.8% decrease from baseline (<5% change is not significant). Prior: BMD 1.016 g/cm2. Baseline: BMD 1.089 g/cm2. LEFT FOREARM RADIUS 33%: BMD 0.809 g/cm2, Z-score 0.8, T-score -0.8, normal. Prior: Not previously measured. Thyroid US: Right Thyroid Lobe: 3.5 x 1.1 x 1.5 cm, volume 3.0 mL. Parenchyma: The gland echotexture is heterogeneous. Thyroid vascularity is normal. Left Thyroid Lobe: 3.7 x 2.0 x 1.5 cm, volume 5.8 mL. Parenchyma: The gland echotexture is heterogeneous. Thyroid vascularity is normal. Isthmus: 0.4 cm in maximum AP dimension. Estimated total number of nodules greater than or equal to 1 cm: 0. [employer] nodules are described as follows: 1. Location: Right mid. ?? ? Size: 0.78 x 0.85 x 0.67 cm, volume 0.23 mL. ?? ? Nodule characteristics: ?? ? Composition: Solid/almost completely solid (2). ?? ? Echogenicity: Isoechoic (1). ?? ? Shape: Taller than wide (3). ?? ? Margins: Smooth (0). ?? ? Echogenic Foci: None (0). ?? ? ACR TI-RADS total points: 6 ?? ? ACR TI-RADS category: 4 2. Location: Right mid. ?? ? Size: 0.56 x 0.4 x 0.45 cm, volume 0.05 mL. ?? ? Nodule characteristics: ?? ? Composition: Solid/almost completely solid (2). ?? ? Echogenicity: Isoechoic (1). ?? ? Shape: Not taller than wide (0). ?? ? Margins: Smooth (0). ?? ? Echogenic Foci: None (0). ?? ? ACR TI-RADS total points: 3 ?? ? ACR TI-RADS category: 3 NODES: No lymphadenopathy is seen in the tissue surrounding the thyroid gland. Labs: Laboratory Tests 05/16/21 05/16/21 06/05/21 15:37 15:37 12:10 Sodium Potassium Creatinine Estimated GFR Hgb A1c (Clinic) Hemoglobin A1c % Albumin LDL Cholesterol Di rect 25-OH Vitamin D To jordyn TSH Free T4 PTH Intact 95 H Calcium (PTH Intac t) 9.6 Ur 24 Hour Volume 1600 Ur Creatinine 24 H our 1.3 Microalb/Creat Rat io Ur Calcium 24 Hr 120 09/04/21 09/04/21 10/16/21 14:12 14:12 01:32 Sodium 140 Potassium 4.6 Creatinine 0.87 0.83 Estimated GFR > 60 > 60 Hgb A1c (Clinic) Hemoglobin A1c % Albumin 3.9 LDL Cholesterol Di rect 25-OH Vitamin D To jordyn 21.6 TSH 2.02 Free T4 1.09 PTH Intact 130 H Calcium (PTH Intac t) 9.1 Ur 24 Hour Volume Ur Creatinine 24 H our Microalb/Creat Rat io Ur Calcium 24 Hr 11/21/21 11/21/21 03/24/22 10:22 10:29 08:13 Sodium 140 Potassium 4.3 Creatinine 0.85 Estimated GFR > 60 Hgb A1c (Clinic) Hemoglobin A1c % Albumin LDL Cholesterol Di rect 170 H 25-OH Vitamin D To jordyn TSH Free T4 PTH Intact Calcium (PTH Intac t) Ur 24 Hour Volume Ur Creatinine 24 H our Microalb/Creat Rat io 55.1 Ur Calcium 24 Hr 06/02/22 08/15/22 08/15/22 13:18 12:35 12:35 Sodium Potassium Creatinine Estimated GFR Hgb A1c (Clinic) 9.6 H Hemoglobin A1c % 8.1 Albumin 4.0 LDL Cholesterol Di rect 25-OH Vitamin D To jordyn 33.8 TSH 2.94 Free T4 1.16 PTH Intact Calcium (PTH Intac t) Ur 24 Hour Volume Ur Creatinine 24 H our Microalb/Creat Rat io Ur Calcium 24 Hr 08/15/22 08/15/22 12:35 13:45 Sodium Potassium Creatinine Estimated GFR Hgb A1c (Clinic) Hemoglobin A1c % Albumin LDL Cholesterol Di rect 70 25-OH Vitamin D To jordyn TSH Free T4 PTH Intact 97 H Calcium (PTH Intac t) 9.7 Ur 24 Hour Volume Ur Creatinine 24 H our Microalb/Creat Rat io 23.9 Ur Calcium 24 Hr PFSH Medical History Asthma BMI 35.0-35.9,adult Cervical cancer Constipation Cough due to SHANELLE inhibitor Depression with anxiety Diabetes mellitus with hyperglycemia Eosinophilia Erosive gastritis Essential hypertension Fibromyalgia GERD (gastroesophageal reflux disease) Meir's disease HTN (hypertension) Hyperlipidemia LDL goal <100 Hyperparathyroidism Leg edema, left Multinodular thyroid Osteoarthritis of left knee Osteopenia Other obesity due to excess calories Other specified acquired hypothyroidism Skin lesion of chest wall T2DM (type 2 diabetes mellitus) Thyroid nodule Type 2 diabetes mellitus with diabetic polyneuropathy Vitamin B12 deficiency Vitamin D deficiency Surgical History History of arthroplasty of right knee History of bilateral carpal tunnel release History of cholecystectomy History of esophagogastroduodenoscopy (EGD) Hx of arthroscopy of left knee Hx of bilateral oophorectomy Hx of colonoscopy Hx of foot surgery Hx of hysterectomy Family History Father CVD (cardiovascular disease) Diabetes mellitus Stroke Mother Stroke Diabetes mellitus Breast cancer Hyperthyroidism Social History Household Members: Significant Other Housing: House Are you a primary nurse care manager to a significant other at home: No Do you presently have visiting nurse or other home services: No Alcohol intake: never Patient Tobacco Use Status: Never used Tobacco service: No 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al status: disabled 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: Right Handed Female Reproductive History Menstrual Age of Menarche: 11 Assessment & Plan Assessment & Plan (1) T2DM (type 2 diabetes mellitus): Code(s): E11.9 - Type 2 diabetes mellitus without complications Qualifiers: Diabetes mellitus complication status: with hyperglycemia Plan: Patient with T2DM suboptimally controlled. Current regimen. Metformin to 1000 mg PO BID Jardiance to 25 mg PO daily Pioglitazone 15 mg PO daily Ozempic 0.35 mg once a week And Lantus 34 units qHS. She will F/U in 3 months time for a dedicated Diabetes visit to review her sugars and adjust her medications. All of her questions were answered. She is in agreement with this plan of care. I spent 20 minutes in reviewing the record, seeing the patient and documenting in the medical record, including 5 minutes on the phone with the Patient. (2) HLD (hyperlipidemia): Code(s): E78.5 - Hyperlipidemia, unspecified Plan: LDL at goal. No changes. (3) HTN (hypertension): Code(s): I10 - Essential (primary) hypertension Plan: UAC at goal. (4) Hyperparathyroidism: Code(s): E21.3 - Hyperparathyroidism, unspecified Plan: Patient with elevated PTH levels. I do suspect this is likely related to secondary hyperparathyroidism from low calcium intake. PTH has improved but remains elevated. Will check a 24 hour urine calcium now that her Vitamin D is at goal. If elevated, this will confirm hyperparathyroidism and she will require surgical referral. (5) Multinodular thyroid: Code(s): E04.2 - Nontoxic multinodular goiter Plan: Patient with a NTMNG. She does have a heterogenous, firm thyroid gland. She underwent FNA biopsy of her RMP 1.2 cm thyroid nodule 03/01/2021 with benign cytology. We reviewed that a surgical thyroidectomy is not indicated at this time, but she is insisting. We reviewed that L hemithyroidectomy may be indicated for symptomatic management, but she is demanding a total thyroidectomy. She was scheduled for this in November 2021 but this was cancelled due to poor glycemic control. Will continue to work on her glycemic control. She is currently being worked up for hyperparathyroidism prior to her surgery. (6) Vitamin D deficiency: Code(s): E55.9 - Vitamin D deficiency, unspecified Plan: At goal, no changes. Orders: Orders Calcium, 24 Hr Ur Today E21.3 - Hyperparathyroidism, unspecified Creatinine, 24 Hr Group Today E21.3 - Hyperparathyroidism, unspecified Telehealth Telehealth Location of provider rendering services: practice address Location of patient: address on file Patient Identification confirmed using: Name, : Yes Telehealth method: voice only Patient verbally consented to treatment: Yes Patient verbally consented to billing insurance company: Yes Patient informed of any privacy concerns related to visit: Yes Coding Level of Care Code Tele Est Pt Level 3 (08328) Diagnoses T2DM (type 2 diabetes mellitus) E11.9 Diabetes mellitus complication status: with hyperglycemia HLD (hyperlipidemia) E78.5 HTN (hypertension) I10 Hyperparathyroidism E21.3 Multinodular thyroid E04.2 Vitamin D deficiency E55.9
== END 2022-09-22 12:17 | disposition home or self-care (01) ==
LOC: HO.ENCR 10:51
PROVIDERS: PCP Nurse Practitioner Primary Care; Visit Provider Internal Medicine
DX: E11.69 Type 2 diabetes mellitus with other specified complication (principal); E78.5 Hyperlipidemia, unspecified; I10 Essential (primary) hypertension; E21.3 Hyperparathyroidism, unspecified; E04.2 Nontoxic multinodular goiter; E55.9 Vitamin D deficiency, unspecified
CPT/HCPCS: 99443

== ENCOUNTER → 2022-09-22 10:51 | Outpatient (BNVA) | payer OTHER, SELFPAY | PROVIDERS: PCP Nurse Practitioner Primary Care; Visit Provider Internal Medicine ==

== ENCOUNTER 2022-09-29 13:56 | Outpatient (AMB) | payer OTHER, SELFPAY ==
[2022-09-29 14:02] VITALS: BP 124/82; PULSE 79; O2SAT 97; BMI 33.6
--- NOTE | 2022-09-29 14:02 | A.OFFVIS_ITS ---
Intake Vital Signs 09/29/22 14:02 Height 5 ft 5 in Weight 202 lb BMI 33.6 BP 124/82 Blood Pressure Location Lt brachial Position Standing Pulse 79 Pulse Source Pulse Oximeter Pulse Oximetry (%) 97 Oxygen Delivery Method Room Air Intake Visit Reasons: asthma Intake Note: pt is here for follow up Allergies No Known Allergies [No Known Allergies*] Allergy (Verified 09/29/22 14:07) HPI HPI Comments History of Present Illness Details The patient is a 67 in a with a history of worsening respiratory symptoms. Apparently back in February she started developing increasing chest tightness coughing wheezing. She was evaluated in the ER. There she underwent a viral panel that was positive for enterovirus. She was diagnosed with enteroviral and COPD exacerbation. Patient was treated accordingly and she was discharged. More recently in March she had another episode of shortness of breath and chest tightness which she went to the ER. This time her viral panel was negative although she did have significant eosinophilia suggesting an allergic reaction. The patient is a lifelong nonsmoker. She also has diabetes. On examination she does have some wheezing. Therefore she will need maintenance therapy. Will plan to do allergy testing and pulmonary function studies. 09/29/2022 the patient is here for a pulmonary follow-up visit. The patient overall is doing well from a respiratory status. She is responding well to the Trelegy inhaler. She has a rescue inhaler that she has not required. The patient has not had any recent imaging studies. She did have blood work including allergy testing demonstrating some allergies but minimal and do not require any additional therapies at this time. The patient still having issues with a dry cough. I do believe she has an age related cough and therefore she should be switched over to an ARB. She will talk to her primary care doctor about that. But clinically the patient is doing well. We did look at her pulmonary function studies. She does have a mild restrictive ventilatory defect likely from an elevated BMI otherwise no significant findings. The patient did have a nebulizer but it broke. She does need a replacement. I will request a nebulizer from the local [employer] company at this time. [facility] Medical History Asthma BMI 35.0-35.9,adult Cervical cancer Constipation Cough due to SHANELLE inhibitor Depression with anxiety Diabetes mellitus with hyperglycemia Eosinophilia Erosive gastritis Essential hypertension Fibromyalgia GERD (gastroesophageal reflux disease) Meir's disease HTN (hypertension) Hyperlipidemia LDL goal <100 Hyperparathyroidism Leg edema, left Multinodular thyroid Osteoarthritis of left knee Osteopenia Other obesity due to excess calories Other specified acquired hypothyroidism Skin lesion of chest wall T2DM (type 2 diabetes mellitus) Thyroid nodule Type 2 diabetes mellitus with diabetic polyneuropathy Vitamin B12 deficiency Vitamin D deficiency Surgical History History of arthroplasty of right knee History of bilateral carpal tunnel release History of cholecystectomy History of esophagogastroduodenoscopy (EGD) Hx of arthroscopy of left knee Hx of bilateral oophorectomy Hx of colonoscopy Hx of foot surgery Hx of hysterectomy Family History Father CVD (cardiovascular disease) Diabetes mellitus Stroke Mother Stroke Diabetes mellitus Breast cancer Hyperthyroidism Social History Household Members: Significant Other Housing: House Are you a primary skin care therapist to a significant other at home: No Do you presently have visiting nurse or other home services: No Alcohol intake: never Patient Tobacco Use Status: Never used Tobacco service: No 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al status: disabled 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: Right Handed Female Reproductive History Menstrual Age of Menarche: 11 Review of Systems Const Denies fatigue, Denies fever(s), Denies night sweats, Denies poor appetite and Denies weight loss ENT Reports Normal hearing present, Denies dental pain, Denies dysphagia, Denies hearing loss, Denies mouth pain, Denies odynophagia, Denies throat swelling, Denies tongue swelling and Reports other (Dentition adequate) Card Reports no additional complaints and Reports dyspnea on exertion Resp Reports chest congestion, Reports cough, Reports dyspnea on exertion and Reports wheezing GI Denies abdominal pain, Denies melena, Denies bloating, Denies hematochezia, Reports constipation, Denies GI cramping, Denies dysphagia, Denies excessive flatus, Denies early satiety, Reports heartburn, Denies diarrhea, Denies nausea, Denies odynophagia, Denies vomiting and Denies hematemesis Skin/Breast Denies pruritus, Denies lesions, Denies rash and Denies jaundice Neuro Reports Normal hearing present and Denies Abnormal speech present Endo Denies fatigue Aller/Immun Denies throat swelling, Denies tongue swelling and Reports wheezing Physical Exam Vital Signs: Last Vital Signs Pulse 79 09/29/22 14:02 BP 124/82 09/29/22 14:02 Pulse Ox 97 09/29/22 14:02 Oxygen Delivery Method Room Air 09/29/22 14:02 BMI result Body Mass Index 33.6 Const General: cooperative, no acute distress, well developed and well groomed Nutritional Appearance: well nourished and obese centrally obese Orientation/consciousness: oriented to person, oriented to place and oriented to time Limitations: language barrier HEENT Head: Yes normocephalic and Yes atraumatic Eyes General: appearance normal, both eyes and all related structures Pupils: Equal, round and reactive pupils present Neck Neck: Yes normal visual inspection and Yes no lymphadenopathy Thyroid: Thyroid normal Chest Chest palpation & inspection: normal inspection of the chest Resp Effort & Inspection: normal respiratory effort and able to speak in complete sentences Auscultation: no wheezes and diminished lung sounds Cardio Rate: regular rate Rhythm: regular rhythm Heart sounds: Normal, physiologic split S2 sound present Peripheral pulses: radial pulses present and posterior tibial pulses present GI Palpation (GI): Soft to palpation Skin Rashes: no rashes Neuro General: oriented to person, oriented to place and oriented to time Cranial nerves: Yes Equal, round and reactive pupils present and Yes Normal hearing present Speech: No Abnormal speech present Extrem General: Yes normal to inspection, No clubbing, No cyanosis and No edema Psych Appearance: grossly normal and well kempt Assessment & Plan Assessment & Plan (1) Asthma: Code(s): J45.909 - Unspecified asthma, uncomplicated (2) Eosinophilia: Code(s): D72.10 - Eosinophilia, unspecified (3) Cough due to SHANELLE inhibitor: Code(s): R05.8 - Other specified cough; T46.4X5A - Adverse effect of cblzjibkagr-vszpcdbsds-xlqeed inhibitors, initial encounter Plan continue Trelegy BRUNA as needed Consider changing SHANELLE to ARB Benzonates as needed F/U 6-8 months Coding Level of Care Code Est Pt Level 4 (47566) Diagnoses Asthma J45.909 Eosinophilia D72.10 Cough due to SHANELLE inhibitor R05.8; T46.4X5A Time Spent (min) 18
== END 2022-09-29 14:23 | disposition home or self-care (01) ==
PROVIDERS: PCP Internal Medicine; Visit Provider Hospitalist
DX: J45.909 Unspecified asthma, uncomplicated (principal); D72.10 Eosinophilia, unspecified; R05.8 Other specified cough; T46.4X5A Adverse effect of angiotensin-converting-enzyme inhibitors, initial encounter
CPT/HCPCS: 99214

== ENCOUNTER → 2022-09-29 13:56 | Outpatient (BNVA) | payer OTHER, SELFPAY | PROVIDERS: Visit Provider Hospitalist | DX: J45.909 Unspecified asthma, uncomplicated (principal); D72.10 Eosinophilia, unspecified; R05.8 Other specified cough; T46.4X5A Adverse effect of angiotensin-converting-enzyme inhibitors, initial encounter | CPT/HCPCS: 99212 ==

== ENCOUNTER 2022-12-15 15:32 | Outpatient (REF) | payer OTHER, SELFPAY ==
[2022-12-15 18:07] LABS: Anion Gap 16 (12-20); Blood Urea Nitrogen 8 mg/dL (9-16); Calcium 9.4 mg/dL (8.4-10.2); Carbon Dioxide 23 mmol/L (22-29); Chloride 107 mmol/L (96-108); Estimated Glomerular Filt Rate > 60; Glucose Random 161 mg/dL (60-115); Potassium 3.7 mmol/L (3.3-5.1); Sodium 142 mmol/L (135-145)
== END 2022-12-15 15:33 | disposition home or self-care (01) ==
LOC: HO.HHCL 15:32
PROVIDERS: Visit Provider Internal Medicine
DX: R60.0 Localized edema (principal); R80.9 Proteinuria, unspecified
CPT/HCPCS: 36415; 80048

== ENCOUNTER 2022-12-23 10:14 | Day surgery (SDC) | payer OTHER, SELFPAY ==
[2022-12-18 12:11] VITALS: BMI 33.6
--- NOTE | 2022-12-19 10:57 | HO.ANESPROP2 ---
Documented by User: Angela Renae NP 12/19/22 11:00 HPI - Anesthesia Eval Consult details Narrative: 67yo F for Colonoscopy PMFSH Active Problems Active Problems: All Active Problems (Updated 06/19/22 @ 15:22 by SELMA Galindo) Pre-op examination (Acute) Cough due to SHANELLE inhibitor (Acute) Eosinophilia (Acute) Asthma (Acute) Erosive gastritis (Acute) COPD exacerbation (Acute) Upper respiratory infection (Acute) HTN (hypertension) (Acute) HLD (hyperlipidemia) (Acute) T2DM (type 2 diabetes mellitus) (Acute) Chronic idiopathic constipation (Acute) Tubular adenoma of colon (Acute) Leg edema, left (Acute) Hyperparathyroidism (Acute) Vitamin D deficiency (Acute) Multinodular thyroid (Acute) Thyroid nodule (Acute) Skin lesion of chest wall (Acute) MGUS (monoclonal gammopathy of unknown significance) (Acute) Skin lesion of back (Acute) Type 2 diabetes mellitus with diabetic polyneuropathy (Acute) Status post total knee replacement, right (Acute) Diabetes mellitus with hyperglycemia (Acute) Meir's disease (Acute) Other specified acquired hypothyroidism (Acute) Hyperlipidemia LDL goal <100 (Acute) Essential hypertension (Acute) Vitamin B12 deficiency (Acute) Other obesity due to excess calories (Acute) BMI 35.0-35.9,adult (Acute) Past Medical History Medical History Cough due to SHANELLE inhibitor Eosinophilia Asthma HTN (hypertension) T2DM (type 2 diabetes mellitus) Erosive gastritis Leg edema, left Hyperparathyroidism Vitamin D deficiency Multinodular thyroid Thyroid nodule Skin lesion of chest wall Type 2 diabetes mellitus with diabetic polyneuropathy Fibromyalgia Depression with anxiety Cervical cancer Osteoarthritis of left knee Osteopenia Constipation GERD (gastroesophageal reflux disease) Diabetes mellitus with hyperglycemia Meir's disease Other specified acquired hypothyroidism Hyperlipidemia LDL goal <100 Essential hypertension Vitamin B12 deficiency Other obesity due to excess calories BMI 35.0-35.9,adult Family History Family History Father CVD (cardiovascular disease) Diabetes mellitus Stroke Mother Stroke Diabetes mellitus Breast cancer Hyperthyroidism Surgical History Surgical History History of cholecystectomy History of arthroplasty of right knee Hx of arthroscopy of left knee Hx of hysterectomy Hx of foot surgery History of bilateral carpal tunnel release Hx of bilateral oophorectomy History of esophagogastroduodenoscopy (EGD) Hx of colonoscopy Social History Social History Household Members: Significant Other Housing: House Are you a primary skin care instructor to a significant other at home: No Do you presently have visiting nurse or other home services: No Alcohol intake: never Patient Tobacco Use Status: Never used Tobacco Use of substances other than those prescribed or required for medical reasons: No Are you DNR?: No Advance Directives: No Advance Directives Information Provided: Yes service: No 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al status: disabled 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 Allergies Allergy/AdvReac Type Severity Reaction Status Date / Time No Known Allergies Allergy Verified 09/29/22 14:07 [No Known Allergies*] Home Medications Medication Instructions Recorded Confirmed Last Taken Type diclofenac sodium 75 mg 75 mg PO BID 02/28/20 12/18/22 Unknown History tablet,delayed release hydrochlorothiazide 50 mg tablet 50 mg PO DAILY 02/29/20 12/18/22 Unknown History blood sugar diagnostic #10 ea 03/19/20 09/22/22 Unknown History fluticasone propionate 110 1 puff inhalation DAILY 03/19/20 12/18/22 Unknown History mcg/actuation HFA aerosol inhaler furosemide 20 mg tablet 20 mg PO DAILY 03/19/20 12/18/22 Unknown History hydroxyzine HCl 50 mg tablet 50 mg PO Q8H PRN anxiety 03/19/20 12/18/22 Unknown History lisinopril 40 mg tablet 40 mg PO DAILY 03/19/20 12/18/22 Unknown History tramadol 50 mg tablet 50 mg PO TID PRN Pain 03/19/20 12/18/22 Unknown History metoprolol succinate 200 mg 200 mg PO DAILY 07/09/20 12/18/22 Unknown History tablet,extended release 24 hr trazodone 150 mg tablet 150 mg PO BEDTIME 07/09/20 12/18/22 Unknown History lancets 33 gauge (OneTouch Deldeja #100 ea 04/17/21 09/22/22 Unknown History Plus Lancet) verapamil 180 mg tablet,extended 180 mg PO DAILY 10/17/21 12/18/22 Unknown History release albuterol sulfate 0.63 mg/3 mL 1 amp inhalation Q4-6H PRN wheezing 03/24/22 12/18/22 Unknown History solution for nebulization aspirin 81 mg tablet,delayed 1 tab PO DAILY 03/24/22 12/18/22 Unknown History release levothyroxine 75 mcg tablet 75 mcg PO DAILY@0630 03/24/22 12/18/22 Unknown History multivitamin-ferrous 1 tab PO DAILY 03/24/22 12/18/22 Unknown History fumarate-folic acid 18 mg-400 mcg tablet (Certavite-Antioxidant) Exam Exam Date and Time: December 19, 2022 1057 Height,Weight and Vital Signs: Height 5 ft 5 in Weight 91.626 kg Pertinent Lab Results Pertinent Lab Results: Laboratory Tests 06/02/22 12/15/22 11:29 15:35 WBC 13.0 H Hgb 15.0 Hct 46.1 Plt Count 355 D Sodium 142 Potassium 3.7 Chloride 107 Carbon Dioxide 23 BUN 8 L Creatinine 0.77 Narrative Narrative: EKG 03/2022 Vent. Rate : 078 BPM Atrial Rate : 078 BPM P-R Int : 138 ms QRS Dur : 100 ms QT Int : 412 ms P-R-T Axes : 049 036 048 degrees QTc Int : 469 ms Normal sinus rhythm Nonspecific T wave abnormality Abnormal ECG When compared with ECG of 03-MAR-2022 23:11, Nonspecific T wave abnormality no longer evident in Inferior leads Nonspecific T wave abnormality, improved in Lateral leads Assessment and Plan Assessment Anesthesia Assessment: Chart Reviewed Documented by User: Rose Camargo MD 12/23/22 11:03 [facility] Past Medical History Medical History Cough due to SHANELLE inhibitor Eosinophilia Asthma HTN (hypertension) T2DM (type 2 diabetes mellitus) Erosive gastritis Leg edema, left Hyperparathyroidism Vitamin D deficiency Multinodular thyroid Thyroid nodule Skin lesion of chest wall Type 2 diabetes mellitus with diabetic polyneuropathy Fibromyalgia Depression with anxiety Cervical cancer Osteoarthritis of left knee Osteopenia Constipation GERD (gastroesophageal reflux disease) Diabetes mellitus with hyperglycemia Meir's disease Other specified acquired hypothyroidism Hyperlipidemia LDL goal <100 Essential hypertension Vitamin B12 deficiency Other obesity due to excess calories BMI 35.0-35.9,adult Family History Family History Father CVD (cardiovascular disease) Diabetes mellitus Stroke Mother Stroke Diabetes mellitus Breast cancer Hyperthyroidism Family history of problems with anesthesia: No Surgical History Surgical History History of cholecystectomy History of arthroplasty of right knee Hx of arthroscopy of left knee Hx of hysterectomy Hx of foot surgery History of bilateral carpal tunnel release Hx of bilateral oophorectomy History of esophagogastroduodenoscopy (EGD) Hx of colonoscopy History of Problems with Anesthesia: No Social History Social History Household Members: Significant Other Housing: House Are you a primary skin care instructor to a significant other at home: No Do you presently have visiting nurse or other home services: No Alcohol intake: never Patient Tobacco Use Status: Never used Tobacco Use of substances other than those prescribed or required for medical reasons: No Are you DNR?: No Advance Directives: No Advance Directives Information Provided: Yes service: No 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al status: disabled 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 Allergies Allergy/AdvReac Type Severity Reaction Status Date / Time No Known Allergies Allergy Verified 09/29/22 14:07 [No Known Allergies*] Home Medications Medication Instructions Recorded Confirmed Last Taken Type diclofenac sodium 75 mg 75 mg PO BID 02/28/20 12/18/22 Unknown History tablet,delayed release hydrochlorothiazide 50 mg tablet 50 mg PO DAILY 02/29/20 12/18/22 Unknown History blood sugar diagnostic #10 ea 03/19/20 09/22/22 Unknown History fluticasone propionate 110 1 puff inhalation DAILY 03/19/20 12/18/22 Unknown History mcg/actuation HFA aerosol inhaler furosemide 20 mg tablet 20 mg PO DAILY 03/19/20 12/18/22 Unknown History hydroxyzine HCl 50 mg tablet 50 mg PO Q8H PRN anxiety 03/19/20 12/18/22 Unknown History lisinopril 40 mg tablet 40 mg PO DAILY 03/19/20 12/18/22 Unknown History tramadol 50 mg tablet 50 mg PO TID PRN Pain 03/19/20 12/18/22 Unknown History metoprolol succinate 200 mg 200 mg PO DAILY 07/09/20 12/18/22 Unknown History tablet,extended release 24 hr trazodone 150 mg tablet 150 mg PO BEDTIME 07/09/20 12/18/22 Unknown History lancets 33 gauge (OneTouch Delica #100 ea 04/17/21 09/22/22 Unknown History Plus Lancet) verapamil 180 mg tablet,extended 180 mg PO DAILY 10/17/21 12/18/22 Unknown History release albuterol sulfate 0.63 mg/3 mL 1 amp inhalation Q4-6H PRN wheezing 03/24/22 12/18/22 Unknown History solution for nebulization aspirin 81 mg tablet,delayed 1 tab PO DAILY 03/24/22 12/18/22 Unknown History release levothyroxine 75 mcg tablet 75 mcg PO DAILY@0630 03/24/22 12/18/22 Unknown History multivitamin-ferrous 1 tab PO DAILY 03/24/22 12/18/22 Unknown History fumarate-folic acid 18 mg-400 mcg tablet (Certavite-Antioxidant) Exam Airway Mallampati Class: II TM Dist: >3cm Neck ROM: Full Heart: rrr Lungs: cta Assessment and Plan Assessment Anesthesia Assessment: Anesthesia Plan Discussed Final Anesthetic Review Family History of Problems with Anesthesia: No History of Problems with Anesthesia: No NPO: Yes ASA Class: III Final Preanesthetic Review: No Changes in Pt Med Stat, Meds/Allgs Chart Reviewed, Consent Obtained/Reviewed and Anes Risks/Benef Reviewed Patient Risk: Low Procedure Risk: Low Anesthetic Plan Anesthetic Plan: MAC: Disposition: Standard PACU
[2022-12-23 10:58] VITALS: BMI 33.3
[2022-12-23 11:06] VITALS: BP 180/78; PULSE 68; RESP 16; TEMP 36.3; O2SAT 100
[2022-12-23 11:58] VITALS: PULSE 62; RESP 16; O2SAT 98
--- NOTE | 2022-12-23 12:02 | MHC.SHP ---
Pre-Procedural Eval Section A Date of Service: 12/23/22 Section B Chief Complaint: Chronic idiopathic constipation Relevant Family History (Specify if Yes): No Relevant Social History: None Present Medications: see Short Stay Collaborative assessment Medical History: Significant History (Asthma BMI 35.0-35.9,adult Cervical cancer Constipation Cough due to SHANELLE inhibitor Depression with anxiety Diabetes mellitus with hyperglycemia Eosinophilia Erosive gastritis Essential hypertension Fibromyalgia GERD (gastroesophageal reflux disease) Meir's disease HTN (hypertension) Hyperlipide) History of Previous Operations: Relevant previous surgery/procedure and date(s) (History of arthroplasty of right knee History of bilateral carpal tunnel release History of cholecystectomy History of esophagogastroduodenoscopy (EGD) Hx of arthroscopy of left knee Hx of bilateral oophorectomy Hx of colonoscopy Hx of foot surgery Hx of hysterectomy) Allergies: Allergies Allergy/AdvReac Type Severity Reaction Status Date / Time No Known Allergies Allergy Verified 12/23/22 11:03 [No Known Allergies*] Review of Systems Sugical H&P ROS: Negative: Constitution, Cardiovascular, Respiratory, Neurological, Psychiatric, Hem-Onc, Allergic/Immunologic, Gastrointestinal, Genitourinary, Musculoskeletal, Integumentary, Endocrine and Eyes/Ears/Nose/Throat Exam Surgical H&P Exam: Normal: HEENT, Normal: Heart, Normal: Lungs, Normal: Extremities, Normal: Abdomen, Normal: Skin and Normal: Neurological Plan Diagnosis/Plan: Unchanged I have reviewed the history and physical and performed a pertinent physical examination on my patient. No changes have occurred unless specified. Time Spent With Patient Time: Total time managing care of this patient today ____ minutes.
--- NOTE | 2022-12-23 12:14 | W.PM.OPN ---
Operative Note Operative Note Date of Service: 12/23/22 Narrative: Operative Information Procedure Description: Colonoscopy Indication: hx of colon polyp Anesthesia: MAC COLONOSCOPY Instrument: Olympus variable stiffness pediatric scope 190L Colonoscopy Monitoring: Vital signs and clinical assessment, continuous EKG monitoring, Pulse oximetry, Carbon Dioxide monitoring and blood pressure monitoring were done throughout the procedure. Colon withdrawal time was 18 minutes. Procedure: The patient was placed in the left lateral decubitis position and pre-procedure medications were administered. After a digital rectal examination of the ano-rectum, the video colonoscope was inserted into the rectum and advanced through the colon to the cecum/TI. The colonoscope was slowly withdrawn in a retrograde panoramic fashion and the colon mucosa was carefully examined including a retroflexed view of the rectum. Findings and interventions are described below. Procedure Difficulty: difficult due to looping, pressure applied Findings: Terminal Ileum-not intubated Cecum:normal Ascending Colon: normal Transverse Colon -normal Descending Colon:normal Sigmoid Colon: severe diverticulosis with narrowing of the colon, 10 mm sessile polyp removed with cold snare Rectum: Retroflexion with small internal hemorrhoids, grade I Anorectum - normal Colon preparation: Elizabeth Bowel Preparation Scale Right colon; 2 Transverse colon: 2 Left colon; 2 (0 = Unprepared colon segment with mucosa not seen due to solid stool that cannot be cleared. 1 = Portion of mucosa of the colon segment seen, but other areas of the colon segment not well seen due to staining, residual stool and/or opaque liquid. 2 = Minor amount of residual staining, small fragments of stool and/or opaque liquid, but mucosa of colon segment seen well. 3 = Entire mucosa of colon segment seen well with no residual staining, small fragments of stool or opaque liquid) Impression and Post Procedure Diagnosis: polyp internal hemorrhoids diverticular disease Plan: High fiber diet leaflet Avoid straining at stool, epsom salts and sitz bath, anusol supps or cream Repeat Colonoscopy in 5 years due to polyp or earlier if clinically indicated Above findings were reviewed with the patient and relevant handouts were provided if indicated.
[2022-12-23 13:08] VITALS: BP 131/86; PULSE 80; RESP 16; TEMP 36.4; O2SAT 99
[2022-12-23 13:23] VITALS: BP 175/76; PULSE 74; RESP 18; TEMP 36.4; O2SAT 99
== END 2022-12-23 14:13 | disposition home or self-care (01) ==
PROVIDERS: PCP Internal Medicine; Visit Provider Internal Medicine Gastroenterology
PROC: 0DJD8ZZ Inspection of Lower Intestinal Tract, Via Natural or Artificial Opening Endoscopic (ICD-10-PCS; CPT 45378; principal; 2022-12-23 12:50)
DX: Z12.11 Encounter for screening for malignant neoplasm of colon (principal); Z86.010 Personal history of colon polyps; D12.5 Benign neoplasm of sigmoid colon; K57.30 Diverticulosis of large intestine without perforation or abscess without bleeding; K64.0 First degree hemorrhoids; K59.04 Chronic idiopathic constipation; K21.9 Gastro-esophageal reflux disease without esophagitis; I10 Essential (primary) hypertension; E11.65 Type 2 diabetes mellitus with hyperglycemia; E11.42 Type 2 diabetes mellitus with diabetic polyneuropathy; J44.9 Chronic obstructive pulmonary disease, unspecified; M79.7 Fibromyalgia; E78.5 Hyperlipidemia, unspecified; E06.3 Autoimmune thyroiditis; F41.8 Other specified anxiety disorders; Z79.899 Other long term (current) drug therapy; Z90.49 Acquired absence of other specified parts of digestive tract; Z98.890 Other specified postprocedural states; K29.60 Other gastritis without bleeding
CPT/HCPCS: 45385; 82947; 88305; 94640

== ENCOUNTER → 2022-12-23 10:14 | Outpatient (BNV) | payer OTHER, SELFPAY | PROVIDERS: PCP Internal Medicine; Visit Provider Internal Medicine Gastroenterology | DX: Z12.11 Encounter for screening for malignant neoplasm of colon (principal); Z86.010 Personal history of colon polyps; D12.5 Benign neoplasm of sigmoid colon; K57.30 Diverticulosis of large intestine without perforation or abscess without bleeding; K64.0 First degree hemorrhoids | CPT/HCPCS: 45385 ==

== ENCOUNTER 2023-01-06 09:37 | Outpatient (AMB) | payer OTHER, SELFPAY ==
[2023-01-06 09:39] VITALS: BP 182/79; PULSE 78; O2SAT 100; BMI 34.2
--- NOTE | 2023-01-06 09:39 | MHC.OFFVIS ---
Intake Vital Signs 01/06/23 09:39 Height 5 ft 5 in Weight 205 lb 7.533 oz BMI 34.2 BP 182/79 H Blood Pressure Location Rt brachial Position Sitting Pulse 78 Pulse Source Pulse Oximeter Pulse Oximetry (%) 100 Oxygen Delivery Method Room Air Intake Visit Reasons: S/p colon- Walker Intake Note: Pt presents to the office today for a s/p colo. Pt states she is feeling well and denies any GI upset. Allergies No Known Allergies [No Known Allergies*] Allergy (Verified 01/06/23 09:41) HPI S/p colon- Walker HPI Details Assessment & Plan (1) Chronic idiopathic constipation: ?Code(s): K59.04 - Chronic idiopathic constipation ?Plan: Citizen Of [place] #Belen medeiros She is taking the Trulance every day correctly, but it is not reliably moving her bowels. She will have very small BM's, or none for a few days and then a BM. She very rarely has diarrhea. We will try progressing her to LInzess and start at 290, if diarrhea go to qod. Today we need to discuss a repeat colonoscopy. She is quite agreeable to this. She has asthma/COPD, no cardiac problems. There are no prior problems with anesthesia or sedation. No ID problems. She had a TA in 2016. ROV 3 weeks. (2) Tubular adenoma of colon: ?Comment: On 2011 scope, repeat in 2017 was hyperplastic ?Code(s): D12.6 - Benign neoplasm of colon, unspecified (3) Pre-op examination: ?Code(s): Z01.818 - Encounter for other preprocedural examination ? ? ? Medications: New peg 3350-electroly kasandra 236-22.74-6.74 -5.86 gram (Golyt selina) ?? until feca l effluent is dae r; do not exceed a total volume of 2 ,000 mL 240 mL? PO Q10M 1 day 4,000 mL 0RF Z12.11 - Encounter for screening for malignant neoplas m of colon ? linaclotide (Linze ss) 290 mcg? PO QAM 30 days 30 caps 3RF E K59.04 - Chronic i diopathic constipa tion ? Refilled dexlansoprazole (D exilant) 60 mg? PO DAILY 30 days 30 caps 6RF E K29.60 - Other gas tritis without ble eding ? COLONOSCOPY 12/23/22 Findings: Terminal Ileum-not intubated Cecum:normal Ascending Colon: normal Transverse Colon -normal Descending Colon:normal Sigmoid Colon: severe diverticulosis with narrowing of the colon, 10 mm sessile polyp removed with cold snare Rectum: Retroflexion with small internal hemorrhoids, grade I Anorectum - normal Impression and Post Procedure Diagnosis: polyp internal hemorrhoids diverticular disease Plan: High fiber diet leaflet Avoid straining at stool, epsom salts and sitz bath, anusol supps or cream Repeat Colonoscopy in 5 years due to polyp or earlier if clinically indicated BIOPSY Received: 12/23/22 Diagnosis Colon, sigmoid, polyp: Tubular adenoma, completely excised; negative for high-grade dysplasia and carcinoma TODAY'S VISIT Citizen [place] #[id number] She is agreeable to a 5 year follow up. The procedure was well tolerated. The results were explained and the patient is agreeable to the follow-up interval as stated. The bowel pattern has returned to normal. Education was provided to tell any 1st degree relatives about their findings to be sure that they are screened by age 45. Educated that they will be put on a recall list when it is time for their repeat scope but should they move out of state or away from the hospital they will need to remember along with their primary to repeat the procedure in a timely fashion to avoid any adverse complications. She is doing well now with her CIC on the Linzess 290mcgv and she does not feel it needs dose adjustment. The Dexilant also is working well. ROV 6 mos. PFSH Medical History (Updated 12/01/23 @ 13:22 by SELMA Galindo) Cough due to SHANELLE inhibitor Eosinophilia Asthma HTN (hypertension) T2DM (type 2 diabetes mellitus) Erosive gastritis Leg edema, left Hyperparathyroidism Vitamin D deficiency Multinodular thyroid Thyroid nodule Skin lesion of chest wall Type 2 diabetes mellitus with diabetic polyneuropathy Fibromyalgia Depression with anxiety Cervical cancer Osteoarthritis of left knee Osteopenia GERD (gastroesophageal reflux disease) Diabetes mellitus with hyperglycemia Meir's disease Other specified acquired hypothyroidism Hyperlipidemia LDL goal <100 Essential hypertension Vitamin B12 deficiency Other obesity due to excess calories BMI 35.0-35.9,adult Surgical History History of cholecystectomy History of arthroplasty of right knee Hx of arthroscopy of left knee Hx of hysterectomy Hx of foot surgery History of bilateral carpal tunnel release Hx of bilateral oophorectomy History of esophagogastroduodenoscopy (EGD) Hx of colonoscopy Family History Father CVD (cardiovascular disease) Diabetes mellitus Stroke Mother Stroke Diabetes mellitus Breast cancer Hyperthyroidism Social History Household Members: Significant Other Housing: House Are you a primary manager critical care unit to a significant other at home: No Do you presently have visiting nurse or other home services: No Alcohol intake: never Patient Tobacco Use Status: Never used Tobacco service: No 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al status: disabled 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: Right Handed Female Reproductive History Menstrual Age of Menarche: 11 Review of Systems Const Denies fatigue, Denies fever(s), Denies night sweats, Denies poor appetite and Denies weight loss ENT Reports Normal hearing present, Denies dental pain, Denies dysphagia, Denies hearing loss, Denies mouth pain, Denies odynophagia, Denies throat swelling, Denies tongue swelling and Reports other (Dentition adequate) Card Reports no additional complaints Resp Reports no additional complaints GI Denies abdominal pain, Denies melena, Denies bloating, Denies hematochezia, Reports constipation, Denies GI cramping, Denies dysphagia, Denies excessive flatus, Denies early satiety, Reports heartburn, Denies diarrhea, Denies nausea, Denies odynophagia, Denies vomiting and Denies hematemesis Skin/Breast Denies pruritus, Denies lesions, Denies rash and Denies jaundice Neuro Reports Normal hearing present and Denies Abnormal speech present Endo Denies fatigue Aller/Immun Denies throat swelling and Denies tongue swelling Physical Exam Vital Signs: Last Vital Signs Pulse 78 01/06/23 09:39 BP 182/79 H 01/06/23 09:39 Pulse Ox 100 01/06/23 09:39 Oxygen Delivery Method Room Air 01/06/23 09:39 BMI result Body Mass Index 34.2 Const General: cooperative, no acute distress, well developed and well groomed Nutritional Appearance: well nourished and obese Orientation/consciousness: oriented to person, oriented to place and oriented to time Limitations: language barrier HEENT Head: Yes normocephalic and Yes atraumatic Eyes General: appearance normal, both eyes and all related structures Pupils: Equal, round and reactive pupils present Neck Neck: Yes normal visual inspection and Yes no lymphadenopathy Thyroid: Thyroid normal Resp Effort & Inspection: normal respiratory effort and able to speak in complete sentences Auscultation: clear to auscultation bilaterally Cardio Rate: regular rate Rhythm: regular rhythm Heart sounds: Normal, physiologic split S2 sound present Peripheral pulses: radial pulses present and posterior tibial pulses present GI Inspection: No distended, Yes Abdominal panniculus present and Yes obesity Palpation (GI): Soft to palpation, nontender, no guarding, not rigid and No hepatosplenomegaly present Percussion: Yes normal to percussion Auscultation: normal bowel sounds Rectal Exam - Female: deferred Skin General skin exam: no rashes or lesions noted, turgor normal, skin not dry, no jaundice, No spider nevi and no striae Rashes: no rashes Nails: normal Neuro General: oriented to person, oriented to place and oriented to time Cranial nerves: Yes Equal, round and reactive pupils present and Yes Normal hearing present Speech: No Abnormal speech present Extrem General: Yes normal to inspection, No clubbing, No cyanosis and No edema Psych Appearance: grossly normal and well kempt Mental Status: mental status grossly normal Speech and movement: Normal speech and movement present Affect: normal affect Attitude: cooperative Thought process: Normal thought process present and not confabulating Thought content: Normal thought content present Insight: Limited insight present (Psych) Judgement: Limited judgement present (Psych) Assessment & Plan Assessment & Plan (1) Tubular adenoma of colon: Comment: 2022=. TA repeat in 5 years; 2011 scope, repeat in 2017 was hyperplastic Code(s): D12.6 - Benign neoplasm of colon, unspecified Plan: Citizen [place] #[id number] She is agreeable to a 5 year follow up. The procedure was well tolerated. The results were explained and the patient is agreeable to the follow-up interval as stated. The bowel pattern has returned to normal. Education was provided to tell any 1st degree relatives about their findings to be sure that they are screened by age 45. Educated that they will be put on a recall list when it is time for their repeat scope but should they move out of state or away from the hospital they will need to remember along with their primary to repeat the procedure in a timely fashion to avoid any adverse complications. She is doing well now with her CIC on the Linzess 290mcgv and she does not feel it needs dose adjustment. The Dexilant also is working well. ROV 6 mos. (2) Chronic idiopathic constipation: Code(s): K59.04 - Chronic idiopathic constipation (3) GERD (gastroesophageal reflux disease): Code(s): K21.9 - Gastro-esophageal reflux disease without esophagitis Medications: Refilled dexlansoprazole (Dexilant) 60 mg PO DAILY 30 caps 6RF 30 days K29.60 - Other gastritis without bleeding linaclotide (Linzess) 290 mcg PO QAM 30 caps 6RF K59.04 - Chronic idiopathic constipation Coding Level of Care Code Est Pt Level 3 (95012) Diagnoses Tubular adenoma of colon D12.6 Chronic idiopathic constipation K59.04 GERD (gastroesophageal reflux disease) K21.9
== END 2023-01-06 10:10 | disposition home or self-care (01) ==
PROVIDERS: PCP Nurse Practitioner Primary Care; Visit Provider Nurse Practitioner
DX: D12.6 Benign neoplasm of colon, unspecified (principal); K59.04 Chronic idiopathic constipation; K21.9 Gastro-esophageal reflux disease without esophagitis
CPT/HCPCS: 99213

== ENCOUNTER → 2023-01-06 09:37 | Outpatient (BNVA) | payer OTHER, SELFPAY | PROVIDERS: PCP Nurse Practitioner Primary Care; Visit Provider Nurse Practitioner | DX: K21.9 Gastro-esophageal reflux disease without esophagitis (principal); K59.04 Chronic idiopathic constipation; D12.6 Benign neoplasm of colon, unspecified | CPT/HCPCS: 99212 ==

== ENCOUNTER 2023-02-24 15:02 | Outpatient (AMB) | payer OTHER, SELFPAY ==
--- NOTE | 2023-02-24 15:08 | MHC.OFFVIS ---
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 Patient reports her left knee is worse than the right knee. SHe states that her has a knee replacement in her right knee about 3 years ago and its causing her some discomfort. Patient has tried PT in the past for her left knee with no relief. Tried and failed 3 + months of NSAIDs. 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 She complains of pain in her left knee with daily activity, which she feels is similar to her right knee prior to her TKA. She also complains of some right knee pain, but this is less severe than her left. She complains of worsening pain & swelling in her left foot & ankle, which she says is intolerable and limiting her activities. She says her swelling has been present for several years now. Her PCP prescribed a diuretic medication for this, but was not helpful in relieving her swelling. She says PT was not helpful for her recently, and she found no relief of pain from NSAIDs. She has a hx of a right TKA, DOS: 07/26/[address] Cortez. [facility] Medical History (Updated 02/24/23 @ 15:40 by Archie Potts) Cough due to SHANELLE inhibitor Eosinophilia Asthma HTN (hypertension) T2DM (type 2 diabetes mellitus) Erosive gastritis Leg edema, left Hyperparathyroidism Vitamin D deficiency Multinodular thyroid Thyroid nodule Skin lesion of chest wall Type 2 diabetes mellitus with diabetic polyneuropathy Fibromyalgia Depression with anxiety Cervical cancer Osteoarthritis of left knee Osteopenia GERD (gastroesophageal reflux disease) Diabetes mellitus with hyperglycemia Meir's disease Other specified acquired hypothyroidism Hyperlipidemia LDL goal <100 Essential hypertension Vitamin B12 deficiency Other obesity due to excess calories BMI 35.0-35.9,adult Surgical History History of cholecystectomy History of arthroplasty of right knee Hx of arthroscopy of left knee Hx of hysterectomy Hx of foot surgery History of bilateral carpal tunnel release Hx of bilateral oophorectomy History of esophagogastroduodenoscopy (EGD) Hx of colonoscopy Family History Father CVD (cardiovascular disease) Diabetes mellitus Stroke Mother Stroke Diabetes mellitus Breast cancer Hyperthyroidism Social History Household Members: Significant Other Housing: House Are you a primary adult live in caregiver to a significant other at home: No Do you presently have visiting nurse or other home services: No Alcohol intake: never Patient Tobacco Use Status: Never used Tobacco service: No 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al status: disabled 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: Right Handed Female Reproductive History Menstrual Age of Menarche: 11 Review of Systems Const All systems reviewed & are unremarkable except as noted in HPI and below Physical Exam Const General: no acute distress, alert and awake Orientation/consciousness: patient oriented x3 HEENT Head: Yes normocephalic and Yes atraumatic Eyes EOM: EOMs intact bilaterally Resp Effort & Inspection: normal respiratory effort and able to speak in complete sentences Cardio Jugular venous distension: no JVD Skin General skin exam: turgor normal Rashes: no rashes Neuro General: patient oriented x3 Extrem Other: Left knee: Normal to inspection. No ecchymosis, erythema, or joint effusion. TTP to the medial or lateral joint lines. ROM 10-90 degrees, with pain. Crepitus with ROM. NVI. Psych Appearance: grossly normal Affect: normal affect Attitude: cooperative Results Reviewed Results Reviewed: X-rays of the left knee which were obtained while in the office today and were reviewed by me, Shruthi Anguiano PA-C, revealed left knee osteoarthritis Assessment & Plan Assessment & Plan (1) Osteoarthritis of left knee: Code(s): M17.12 - Unilateral primary osteoarthritis, left knee Plan Lois is a 67 year old Gabonese speaking Diabetic woman who presents with complaints of left leg swelling & bilateral knee pain, L>R. She complains of pain in her left knee with daily activity, which she feels is similar to her right knee prior to her TKA. She also complains of some right knee pain, but this is less severe than her left. She complains of worsening pain & swelling in her left foot & ankle, which she says is intolerable and limiting her activities. She says her swelling has been present for several years now. Her PCP prescribed a diuretic medication for this, but was not helpful in relieving her swelling. She says PT was not helpful for her recently, and she found no relief of pain from NSAIDs. She has a hx of a right TKA, DOS: 07/26/[address] Cortez. I discussed treatment options with her, and she is not interested in steroid injections or further PT. I recommend she meet with Dr. Weems for a consult for a possible left TKA. I recommend she remain active, as tolerated. Concerning her bilateral foot swelling, I recommend she speak with her PCP concerning this. Angela was available to speak with her briefly today for more information about the procedure. She will follow up with Dr. Weems at his next available appointment. Orders: Orders XR knee standing BI 02/24/23 M25.569 - Pain in unspecified knee Shruthi Anguiano PA-C XR knee LT 2V 02/24/23 M25.569 - Pain in unspecified knee Shruthi Anguiano PA-C Hemoglobin A1c Today Z01.812 - Encounter for preprocedural laboratory examination Vijay Weems MD Patient Instructions: Scribed for Shruthi Anguiano PA-C by Archie Potts, medical data analyst, on 02/24/23 at 3:25 PM EST. Coding Level of Care Code Est Pt Level 4 (54644) Diagnoses Osteoarthritis of left knee M17.12
== END 2023-02-24 15:58 | disposition home or self-care (01) ==
PROVIDERS: PCP Nurse Practitioner Primary Care; Visit Provider Physician Assistant
DX: M17.12 Unilateral primary osteoarthritis, left knee (principal)
CPT/HCPCS: 99213

== ENCOUNTER 2023-02-24 15:15 | Outpatient (REF) | payer OTHER, SELFPAY ==
--- NOTE | ~2023-02-24 | XR_ITS ---
EXAMINATION: AP upright of both knees and lateral and patella views of the left knee CLINICAL INFORMATION: Pain in the knee. COMPARISON: X-rays of the right and left knees November 2018 TECHNIQUE: AP upright of both knees. Lateral patella views of the left knee FINDINGS: Left knee: There are marginal osteophytes without joint space narrowing of the medial lateral compartments indicative of mild osteoarthritis unchanged. Patellofemoral compartment there are marginal osteophytes with nonuniform joint space narrowing indicative of mild to moderate osteoarthritis. No effusion Right knee Limited AP upright: Right total knee arthroplasty with components in usual position. No periprosthetic fracture or suspicious area of lucency. XR/XR knee LT 2V IMPRESSION: LEFT KNEE: Mild to moderate tricompartmental osteoarthritis probably unchanged. RIGHT KNEE: Right total knee arthroplasty without change.
--- NOTE | ~2023-02-24 | XR_ITS ---
EXAMINATION: AP upright of both knees and lateral and patella views of the left knee CLINICAL INFORMATION: Pain in the knee. COMPARISON: X-rays of the right and left knees November 2018 TECHNIQUE: AP upright of both knees. Lateral patella views of the left knee FINDINGS: Left knee: There are marginal osteophytes without joint space narrowing of the medial lateral compartments indicative of mild osteoarthritis unchanged. Patellofemoral compartment there are marginal osteophytes with nonuniform joint space narrowing indicative of mild to moderate osteoarthritis. No effusion Right knee Limited AP upright: Right total knee arthroplasty with components in usual position. No periprosthetic fracture or suspicious area of lucency. XR/XR knee standing BI IMPRESSION: LEFT KNEE: Mild to moderate tricompartmental osteoarthritis probably unchanged. RIGHT KNEE: Right total knee arthroplasty without change.
== END 2023-02-24 15:16 | disposition home or self-care (01) ==
LOC: HO.HOSX 15:15
PROVIDERS: Visit Provider Physician Assistant
DX: M17.12 Unilateral primary osteoarthritis, left knee (principal); Z96.651 Presence of right artificial knee joint
CPT/HCPCS: 73560; 73565; 99212

== ENCOUNTER 2023-02-26 12:07 | Emergency (ER) | payer OTHER, SELFPAY ==
--- NOTE | ~2023-02-26 | CT_ITS ---
EXAMINATION: CT ABDOMEN AND PELVIS WITHOUT CONTRAST CLINICAL INFORMATION: Left lower quadrant pain. COMPARISON: 03/24/2022 TECHNIQUE: Multidetector volumetric imaging was performed from the superior aspect of the liver through the pubic symphysis. Sagittal and coronal reformatted images were obtained on the technologist's workstation. This CT examination was performed using dose optimization techniques as appropriate, variously including the following: *Automated exposure control *Adjustment of mA and/or kV according to patient size (this includes techniques or standardized protocols for targeted exams where dose is matched to indication/reason for exam; i.e. extremities or head) *Use of iterative reconstruction technique DLP: 649 mGy-cm FINDINGS: LUNG BASES: The visualized lung bases are unremarkable. LIVER, GALLBLADDER, AND BILIARY TREE: The noncontrast liver is decreased in attenuation. No biliary ductal dilatation is present. The gallbladder is surgically absent. PANCREAS: No ductal dilatation. SPLEEN: Not enlarged. ADRENAL GLANDS: No adrenal mass. KIDNEYS AND URETERS: Left upper pole calyceal diverticulum. Left lower pole renal cyst. No renal calculus. No hydronephrosis or perinephric fluid collection. BLADDER: Unremarkable. GASTROINTESTINAL TRACT: Diverticular disease of the sigmoid colon. No small bowel obstruction. There is wall thickening and submucosal edema of the splenic flexure through the descending colon with pericolonic inflammatory changes. ABDOMINAL WALL: No significant hernia is appreciated. LYMPH NODES: No bulky lymphadenopathy. VASCULAR: Normal caliber abdominal aorta. PELVIC VISCERA: The uterus is surgically absent. OSSEOUS STRUCTURES: No destructive bone lesions. CT/CT abdomen pelvis wo IV con IMPRESSION: Wall thickening and submucosal edema of the splenic flexure through the descending colon with pericolonic inflammatory changes. This most likely represents colitis. Infectious and inflammatory etiologies should be considered. Hepatic steatosis.
--- NOTE | ~2023-02-26 | XR_ITS ---
EXAMINATION: XR CHEST CLINICAL INFORMATION: Cough. COMPARISON: 03/24/2022 TECHNIQUE: Frontal view of the chest was obtained. FINDINGS: The cardiomediastinal silhouette is stable. There is no focal lung consolidation or pleural effusion. The bony structures and soft tissues are unremarkable. XR/XR chest 1V IMPRESSION: No active cardiopulmonary disease.
[2023-02-26 12:17] VITALS: BP 209/92; PULSE 96; RESP 18; TEMP 36.9; O2SAT 99; BMI 29.2
--- NOTE | 2023-02-26 12:19 | ECG_ITS ---
Test Reason : SOB Blood Pressure : / mmHG Vent. Rate : 095 BPM Atrial Rate : 095 BPM P-R Int : 140 ms QRS Dur : 098 ms QT Int : 402 ms P-R-T Axes : 035 013 053 degrees QTc Int : 505 ms Normal sinus rhythm Nonspecific T wave abnormality Prolonged QT Abnormal ECG When compared with ECG of 24-MAR-2022 08:22, No significant change was found Referred By: Chloé Pitts Electronically Signed By:Joe Purcell
[2023-02-26 12:44] LABS: Glucose, Whole Blood 253 mg/dL (60-115)
[2023-02-26 13:35] LABS: MANUAL DIFF FLAG NO
--- NOTE | 2023-02-26 13:35 | ED_ITS ---
HPI - Nausea/Vomiting/Diarrhea General Chief complaint: Nausea/Vomiting/Diarrhea Stated complaint: WORSENING PROD COUGH,H/O PNA,FROM REST HOME Time Seen by Provider: 02/26/23 13:26 Source: patient, family (Spouse) and diplomatic interpreter/translator Mode of arrival: ambulatory Limitations: no limitations History of Present Illness HPI Narrative: 67-year-old female female for evaluation of multiple symptoms. One day history of nausea, vomiting, nonbloody watery diarrhea, headache symptoms started 1 hour after eating [place] food nobody else ate from the same food no sick contact no recent travel, no recent use of antibiotic. Patient also been complaining of headache that started with the diarrhea. Patient also been complaining of coughing and shortness of breath, no fever, no chills. Related Data Home Medications Medication Instructions Recorded Confirmed diclofenac sodium 75 mg 75 mg PO BID 02/28/20 12/23/22 tablet,delayed release hydrochlorothiazide 50 mg tablet 50 mg PO DAILY 02/29/20 12/23/22 blood sugar diagnostic #10 ea 03/19/20 09/22/22 fluticasone propionate 110 1 puff inhalation DAILY 03/19/20 12/23/22 mcg/actuation HFA aerosol inhaler furosemide 20 mg tablet 20 mg PO DAILY 03/19/20 12/23/22 hydroxyzine HCl 50 mg tablet 50 mg PO Q8H PRN anxiety 03/19/20 12/23/22 lisinopril 40 mg tablet 40 mg PO DAILY 03/19/20 12/23/22 tramadol 50 mg tablet 50 mg PO TID PRN Pain 03/19/20 12/23/22 metoprolol succinate 200 mg 200 mg PO DAILY 07/09/20 12/23/22 tablet,extended release 24 hr trazodone 150 mg tablet 150 mg PO BEDTIME 07/09/20 12/23/22 lancets 33 gauge (Jenelle Decker #100 ea 04/17/21 09/22/22 Plus Lancet) verapamil 180 mg tablet,extended 180 mg PO DAILY 10/17/21 12/23/22 release albuterol sulfate 0.63 mg/3 mL 1 amp inhalation Q4-6H PRN wheezing 03/24/22 12/23/22 solution for nebulization aspirin 81 mg tablet,delayed 1 tab PO DAILY 03/24/22 12/18/22 release levothyroxine 75 mcg tablet 75 mcg PO DAILY@0630 03/24/22 12/23/22 multivitamin-ferrous 1 tab PO DAILY 03/24/22 12/23/22 fumarate-folic acid 18 mg-400 mcg tablet (Certavite-Antioxidant) Previous Rx's Medication Instructions Recorded acetaminophen 650 mg 650 mg PO Q8H PRN pain #90 tabs 09/11/20 tablet,extended release meclizine 25 mg tablet 25 mg PO DAILY PRN dizziness #20 02/11/21 tabs cyclobenzaprine 10 mg tablet 10 mg PO TID PRN muscle spasm #10 06/05/21 tabs metformin 500 mg tablet,extended 1,000 mg (2 x 500 mg) PO BID 30 11/20/21 release 24 hr days #120 tabs albuterol sulfate 90 mcg/actuation 90 mcg inhalation Q4H PRN Wheezing 03/04/22 aerosol inhaler (Ventolin HFA) #8.5 grams insulin glargine 100 unit/mL (3 34 unit (0.34 mL) subcut BEDTIME 04/23/22 mL) subcutaneous pen (Lantus #15 mL Solostar U-100 Insulin) gabapentin 100 mg capsule 300 mg (3 x 100 mg) PO BEDTIME #90 05/16/22 caps benzonatate 200 mg capsule 200 mg PO BID PRN cough 30 days 05/29/22 #60 caps fluticasone fur. 200 mcg-umeclid 1 inh inhalation DAILY 30 days #60 05/29/22 62.5 mcg-vilant 25 mcg ea inhalat.powder (Trelegy Ellipta) mecobalamin (vitamin B12) 1,000 1,000 mcg PO DAILY 30 days #30 tabs 08/18/22 mcg chewable tablet clotrimazole-betamethasone 1 1 appl topical BID PRN itching 7 08/29/22 %-0.05 % topical cream days #45 grams cholecalciferol (vitamin D3) 50 50 mcg PO QAM #30 tabs 12/03/22 mcg (2,000 unit) tablet pioglitazone 15 mg tablet 15 mg PO DAILY #30 tabs 12/03/22 rosuvastatin 40 mg tablet 40 mg PO DAILY #30 tabs 12/03/22 semaglutide 0.25 mg or 0.5 mg (2 0.5 mg (0.736 mL) subcut QWEEK #3 12/03/22 mg/3 mL) subcutaneous pen injector mL (Ozempic) empagliflozin 25 mg tablet 25 mg PO DAILY #30 tabs 12/15/22 (Jardiance) dexlansoprazole 60 mg 60 mg PO DAILY 30 days #30 caps 01/06/23 capsule,biphase delayed release (Dexilant) linaclotide 290 mcg capsule 290 mcg PO QAM #30 caps 01/06/23 (Linzess) ibuprofen 600 mg tablet 600 mg PO TID PRN fever or pain 02/26/23 #20 tabs ondansetron 4 mg disintegrating 4 mg PO Q6-8H PRN nausea and 02/26/23 tablet vomiting #10 tabs Allergies Allergy/AdvReac Type Severity Reaction Status Date / Time No Known Allergies Allergy Verified 02/24/23 15:28 [No Known Allergies*] Review of Systems 2 Review of Systems: All other systems are reviewed and are negative Constitutional: Reports as per HPI and Reports no additional constitutional complaints Eyes: Reports as per HPI and Reports no additional eye complaints Reports system reviewed and no additional complaints, except as documented Cardiovascular: Reports as per HPI and Reports no additional cardiovascular complaints Respiratory: Reports as per HPI and Reports no additional respiratory complaints Gastrointestinal: Reports as per HPI and Reports no additional gastrointestinal complaints Genitourinary: Reports no additional female genitourinary complaints Musculoskeletal: Reports no additional musculoskeletal complaints Skin/Breast: Reports system reviewed and no additional complaints, except as docu Psychiatric: Reports no additional psychiatric complaints Endocrine: Reports no additional endocrine complaints Hematologic/Lymphatic: Reports no additional hematologic/lymphatic complaints Allergic/Immunologic: Reports no additional allergic/immunologic complaints Reports system reviewed and no additional complaints, except as documented and Reports Abnormal speech present [facility] Past Medical History Medical History Cough due to SHANELLE inhibitor Eosinophilia Asthma HTN (hypertension) T2DM (type 2 diabetes mellitus) Erosive gastritis Leg edema, left Hyperparathyroidism Vitamin D deficiency Multinodular thyroid Thyroid nodule Skin lesion of chest wall Type 2 diabetes mellitus with diabetic polyneuropathy Fibromyalgia Depression with anxiety Cervical cancer Osteoarthritis of left knee Osteopenia GERD (gastroesophageal reflux disease) Diabetes mellitus with hyperglycemia Meir's disease Other specified acquired hypothyroidism Hyperlipidemia LDL goal <100 Essential hypertension Vitamin B12 deficiency Other obesity due to excess calories BMI 35.0-35.9,adult Surgical History History of cholecystectomy History of arthroplasty of right knee Hx of arthroscopy of left knee Hx of hysterectomy Hx of foot surgery History of bilateral carpal tunnel release Hx of bilateral oophorectomy History of esophagogastroduodenoscopy (EGD) Hx of colonoscopy Family History Family History Father CVD (cardiovascular disease) Diabetes mellitus Stroke Mother Stroke Diabetes mellitus Breast cancer Hyperthyroidism Social History Social History Household Members: Significant Other Housing: House Are you a primary child care center assistant director to a significant other at home: No Do you presently have visiting nurse or other home services: No Alcohol intake: never Patient Tobacco Use Status: Never used Tobacco Advance Directives: No Advance Directives Information Provided: Yes service: No 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al status: disabled 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: Right Handed Physical Exam 2 Vital Signs: Vital Signs: Last Vital Signs Temp 98.1 F 02/26/23 18:42 Pulse 82 02/26/23 18:42 Resp 16 02/26/23 18:42 BP 166/63 H 02/26/23 18:42 Pulse Ox 95 02/26/23 18:42 O2 Del Method Room Air 02/26/23 18:42 BMI result Body Mass Index 29.2 Vital signs have been reviewed and appear to be correct. Blood pressure elevated. Heart rate normal. Respiratory rate normal. Temperature normal. Oxygen saturation normal. Appearance: Alert. Oriented X3. No acute distress. Head: Normal external exam. Normocephalic. Atraumatic. No Jones signs noted. No raccoon eyes noted Eyes: PERRLA. EOMI. Conjunctiva and sclera normal. Eyelids normal. ENT: TM's Normal. Pharynx normal. Uvula midline. Moist mucous membranes. No trismus noted. No drooling noted. No muffled voice noted. Neck: Normal inspection. Neck supple. FROM. No adenopathy. Thyroid Normal. No meningeal signs. No neck mass noted. CVS: Normal heart rate and rhythm. Heart sound normal. No murmurs noted. Pulses normal throughout. Respiratory: No respiratory distress. Painless inspiration. Breath sounds normal. Bilateral diffuse mild expiratory wheezing with prolonged expiration. Chest nontender. No accessory muscle usage noted or decreased air movement noted. Abdomen: Soft and nontender. Bowel sounds normal in all 4 quadrants. No distention noted. No organomegaly noted. No visible injury noted. Back: No CVA tenderness. Full range of motion noted. Skin: Skin warm and dry. Normal skin color. Normal skin turgor. No rashes/lesions/lacerations noted. Extremities: No lower extremity edema. Extremities exhibit normal range of motion. Extremities nontender. Neuro: Oriented X 3. Cranial nerve exam: II-XII are grossly intact No motor deficit. No sensory deficit. Reflexes normal. Course Reevaluation(s) Reevaluation #1: Female with for abdominal pain and nonbloody watery diarrhea 1 hour after eating [place] food yesterday, CT abdomen pelvis reveals colitis with her inflammatory or infectious (most likely). Leukocytosis and lactic acidosis (improved after hydration) due to infectious colitis. Will discharge the patient on clear diet, NSAIDs, Zofran p.r.n. Time: 18:41 Medications Administered Discontinued Medications Generic Name Dose Route Start Last Admin Trade Name Freq PRN Reason Stop Dose Admin Al Hydroxide/Mg Hydroxide 30 ml 02/26/23 13:33 02/26/23 13:47 Magnesium Hydrox/Alum Hydrox 30 Ml Oral.Susp PO 02/26/23 13:34 30 ml ONCE ONE Administration Albuterol/Ipratropium 3 ml 02/26/23 13:52 02/26/23 13:55 Albuterol/Iprat 2.5/0.5mg 3 Ml Ampul.Neb INHALE 02/26/23 13:53 3 ml ONCE ONE Administration Famotidine 20 mg 02/26/23 13:33 02/26/23 13:47 Famotidine/Pf 20 Mg/2 Ml Vial IVPUSH 02/26/23 13:34 20 mg ONCE ONE Administration Sodium Chloride 1,000 mls @ 999 mls/hr 02/26/23 13:33 02/26/23 15:00 Ns IV 02/26/23 14:33 Infused .Q1H1M ONE Infusion Ketorolac Tromethamine 15 mg 02/26/23 16:04 02/26/23 16:54 Ketorolac Tromethamine 15 Mg/Ml Vial IVPUSH 02/26/23 16:05 15 mg ONCE ONE Administration Ondansetron HCl 4 mg 02/26/23 13:33 02/26/23 13:47 Ondansetron Hcl 4 Mg/2 Ml Vial IVPUSH 02/26/23 13:34 4 mg ONCE ONE Administration Medical Decision Making Differential Diagnosis Differential Diagnoses: The differential diagnosis associated with the presentation includes (Food poisoning, gastroenteritis, colitis, diverticulitis, electrolyte abnormality, dehydration, severe anemia, UTI.) Admission/Observation Consideration of admission/observation: Escalation of care including admission/observation considered Lab Data MDM Lab Attestation statement: I reviewed the patient's lab results. 02/26/23 13:19 02/26/23 13:19 Labs: Lab Results 02/26/23 02/26/23 02/26/23 Range/Units 12:38 13:19 13:31 WBC 18.9 H (4.8-10.8) X10*3/uL RBC 5.78 H (4.20-5.50) X10*6/uL Hgb 16.1 H (12.0-16.0) g/dl Hct 47.1 H (37.0-47.0) % MCV 81.5 (80.0-98.0) fL MCH 27.9 (27.0-33.0) pg MCHC 34.2 (31.0-35.0) g/dl RDW 13.1 (11.0-16.0) % Plt Count 302 (160-400) X10*3/uL MPV 9.9 (9.4-12.3) fL Immature Gran % (Auto) 0.4 (0.0-0.4) % Neut % (Auto) 81.2 H (45-73) % Lymph % (Auto) 11.0 L (20-40) % Fountain % (Auto) 7.0 (2-11) % Eos % (Auto) 0.1 (0-4) % Baso % (Auto) 0.3 (0-2) % Lymph # (Auto) 2.1 (1.2-4.9) X10*3/uL Fountain # (Auto) 1.3 H (0.1-1.2) X10*3/uL Eos # (Auto) 0.0 (0.0-0.4) X10*3/uL Baso # (Auto) 0.1 (0.0-0.2) X10*3/uL Abs Immat Gran (auto) 0.07 H (0.00-0.03) X10*3/uL Absolute Neuts (auto) 15.3 H (2.0-8.3) x10*3/uL Absolute Nucleated RBC 0.000 (0.0-0.012) X10*3/uL Nucleated RBC % (auto) 0.0 (0.0-0.2) /100WBC VBG pH 7.47 H (7.32-7.43) VBG pCO2 30 mmHg VBG pO2 51 mmHg VBG HCO3 22 (22-26) mmol/L VBG O2 Saturation 88.0 % VBG Base Excess 0.1 mmol/L Sodium 137 (135-145) mmol/L Potassium 3.6 (3.3-5.1) mmol/L Chloride 104 (96-108) mmol/L Carbon Dioxide 23 (22-29) mmol/L Anion Gap 14 (12-20) BUN 8 L (9-16) mg/dL Creatinine 0.87 (0.5-1.4) mg/dL Estim Creat Clear Calc 62.1 Estimated GFR > 60 POC Glucose 253 H (60-115) mg/dL Random Glucose 264 H (60-115) mg/dL Lactic Acid 2.6 H* (0.5-2.0) mmol/L Lactic Acid F/U @ 2Hr (0.5-2.0) mmol/L Calcium 9.3 (8.4-10.2) mg/dL Total Bilirubin 0.7 (0.0-1.0) mg/dL AST 17 (5-31) U/L ALT 24 (0-31) U/L Alkaline Phosphatase 118 H (39-117) U/L Total Protein 8.0 (6.5-8.0) g/dL Albumin 4.2 (3.5-5.0) g/dL Urine Color Urine Appearance Urine pH (5.0-9.0) Ur Specific Mather (1.005-1.025) Urine Protein (Neg-Trace) mg/dL Urine Glucose (UA) (Negative) mg/dL Urine Ketones (Negative) mg/dL Urine Blood (Negative) Urine Nitrite (Negative) Ur Leukocyte Esterase (Negative) Urine RBC (0-2) /HPF Urine WBC (0-5) /HPF Ur Squamous Epith Cells (0-2) /HPF Urine Bacteria (None Seen) Hyaline Casts (0-2) /LPF Influenza Type A (PCR) NEGATIVE (Negative) Influenza Type B (PCR) NEGATIVE (Negative) RSV RNA Qual (PCR) NEGATIVE (Negative) SARS-CoV-2 RNA (RT-PCR) NEGATIVE (Negative) 02/26/23 02/26/23 Range/Units 14:33 17:41 WBC (4.8-10.8) X10*3/uL RBC (4.20-5.50) X10*6/uL Hgb (12.0-16.0) g/dl Hct (37.0-47.0) % MCV (80.0-98.0) fL MCH (27.0-33.0) pg MCHC (31.0-35.0) g/dl RDW (11.0-16.0) % Plt Count (160-400) X10*3/uL MPV (9.4-12.3) fL Immature Gran % (Auto) (0.0-0.4) % Neut % (Auto) (45-73) % Lymph % (Auto) (20-40) % Fountain % (Auto) (2-11) % Eos % (Auto) (0-4) % Baso % (Auto) (0-2) % Lymph # (Auto) (1.2-4.9) X10*3/uL Fountain # (Auto) (0.1-1.2) X10*3/uL Eos # (Auto) (0.0-0.4) X10*3/uL Baso # (Auto) (0.0-0.2) X10*3/uL Abs Immat Gran (auto) (0.00-0.03) X10*3/uL Absolute Neuts (auto) (2.0-8.3) x10*3/uL Absolute Nucleated RBC (0.0-0.012) X10*3/uL Nucleated RBC % (auto) (0.0-0.2) /100WBC VBG pH (7.32-7.43) VBG pCO2 mmHg VBG pO2 mmHg VBG HCO3 (22-26) mmol/L VBG O2 Saturation % VBG Base Excess mmol/L Sodium (135-145) mmol/L Potassium (3.3-5.1) mmol/L Chloride (96-108) mmol/L Carbon Dioxide (22-29) mmol/L Anion Gap (12-20) BUN (9-16) mg/dL Creatinine (0.5-1.4) mg/dL Estim Creat Clear Calc Estimated GFR POC Glucose (60-115) mg/dL Random Glucose (60-115) mg/dL Lactic Acid (0.5-2.0) mmol/L Lactic Acid F/U @ 2Hr 1.8 (0.5-2.0) mmol/L Calcium (8.4-10.2) mg/dL Total Bilirubin (0.0-1.0) mg/dL AST (5-31) U/L ALT (0-31) U/L Alkaline Phosphatase (39-117) U/L Total Protein (6.5-8.0) g/dL Albumin (3.5-5.0) g/dL Urine Color Yellow Urine Appearance Clear Urine pH 7.0 (5.0-9.0) Ur Specific Mather 1.010 (1.005-1.025) Urine Protein 30 (1+) H (Neg-Trace) mg/dL Urine Glucose (UA) >=1000 H (Negative) mg/dL Urine Ketones Trace (Negative) mg/dL Urine Blood Negative (Negative) Urine Nitrite Negative (Negative) Ur Leukocyte Esterase Negative (Negative) Urine RBC 0-2 (0-2) /HPF Urine WBC 0-5 (0-5) /HPF Ur Squamous Epith Cells 3-5 (0-2) /HPF Urine Bacteria Trace (None Seen) Hyaline Casts 0-2 (0-2) /LPF Influenza Type A (PCR) (Negative) Influenza Type B (PCR) (Negative) RSV RNA Qual (PCR) (Negative) SARS-CoV-2 RNA (RT-PCR) (Negative) Independent Interpretation I performed an independent interpretation of an: CT Scan (Abdomen pelvis:Wall thickening and submucosal edema of the splenic flexure through the descending colon with pericolonic inflammatory changes. This most likely represents colitis. Infectious and inflammatory etiologies should be considered. ) Radiology Impression Discussion of test interpretation with radiology: I have reviewed the radiologist's reading. Discharge Plan Discharge Clinical Impression: Gastroenteritis, Colitis, infectious Patient Disposition: Home, Self-Care Instructions: Gastroenteritis (ED) Prescriptions: New ibuprofen 600 mg tablet 600 mg PO TID PRN (Reason: fever or pain) Qty: 20 0RF ondansetron 4 mg tablet,disintegrating 4 mg PO Q6-8H PRN (Reason: nausea and vomiting) Qty: 10 0RF No Action acetaminophen 650 mg tablet extended release 650 mg PO Q8H PRN (Reason: pain) Qty: 90 3RF insulin glargine [Lantus Solostar U-100 Insulin] 100 unit/mL (3 mL) insulin pen 34 unit subcut BEDTIME Qty: 15 4RF gabapentin 100 mg capsule 300 mg PO BEDTIME Qty: 90 0RF mecobalamin (vitamin B12) 1,000 mcg tablet,chewable 1,000 mcg PO DAILY 30 Days Qty: 30 11RF pioglitazone 15 mg tablet 15 mg PO DAILY Qty: 30 11RF cholecalciferol (vitamin D3) 50 mcg (2,000 unit) tablet 50 mcg PO QAM Qty: 30 11RF rosuvastatin 40 mg tablet 40 mg PO DAILY Qty: 30 11RF Ozempic 0.25 mg or 0.5 mg (2 mg/3 mL) pen injector 0.5 mg subcut QWEEK Qty: 3 11RF Jardiance 25 mg tablet 25 mg PO DAILY Qty: 30 11RF meclizine 25 mg tablet 25 mg PO DAILY PRN (Reason: dizziness) Qty: 20 0RF albuterol sulfate 0.63 mg/3 mL solution for nebulization 1 amp inhalation Q4-6H PRN (Reason: wheezing) aspirin 81 mg tablet,delayed release (DR/EC) 1 tab PO DAILY Certavite-Antioxidant 18-400 mg-mcg tablet 1 tab PO DAILY levothyroxine 75 mcg tablet 75 mcg PO DAILY@0630 cyclobenzaprine 10 mg tablet 10 mg PO TID PRN (Reason: muscle spasm) Qty: 10 0RF albuterol sulfate [Ventolin HFA] 90 mcg/actuation HFA aerosol inhaler 90 mcg inhalation Q4H PRN (Reason: Wheezing) Qty: 8.5 0RF hydrochlorothiazide 50 mg tablet 50 mg PO DAILY tramadol 50 mg tablet 50 mg PO TID PRN (Reason: Pain) fluticasone propionate 110 mcg/actuation HFA aerosol inhaler 1 puff inhalation DAILY lisinopril 40 mg tablet 40 mg PO DAILY furosemide 20 mg tablet 20 mg PO DAILY (DME) blood sugar diagnostic Strip See Rx Instructions Not Applicable BID Qty: 10 Rx Instructions: As directed hydroxyzine HCl 50 mg tablet 50 mg PO Q8H PRN (Reason: anxiety) trazodone 150 mg tablet 150 mg PO BEDTIME diclofenac sodium 75 mg tablet,delayed release (DR/EC) 75 mg PO BID metoprolol succinate 200 mg tablet extended release 24 hr 200 mg PO DAILY (DME) lancets [OneTouch Delica Plus Lancet] 33 gauge misc See Rx Instructions topical .MEDSUPPLY Qty: 100 Rx Instructions: As directed verapamil 180 mg tablet extended release 180 mg PO DAILY metformin 500 mg tablet extended release 24 hr 1,000 mg PO BID 30 Days Qty: 120 11RF Trelegy Ellipta 200-62.5-25 mcg blister with device 1 inh inhalation DAILY 30 Days Qty: 60 12RF benzonatate 200 mg capsule 200 mg PO BID PRN (Reason: cough) 30 Days Qty: 60 6RF clotrimazole-betamethasone 1-0.05 % cream 1 appl topical BID PRN (Reason: itching) 7 Days Qty: 45 0RF dexlansoprazole [Dexilant] 60 mg capsule,biphase delayed releas 60 mg PO DAILY 30 Days Qty: 30 6RF Linzess 290 mcg capsule 290 mcg PO QAM Qty: 30 6RF Referrals: Breanna Zamudio NP [Primary Care Provider] -
[2023-02-26 13:37] LABS: Venous Blood Gas Refer to POC result
[2023-02-26 13:37] LABS: VBG Base Excess 0.1 mmol/L; VBG HCO3 22 mmol/L (22-26); VBG pCO2 30 mmHg; VBG pH 7.47 (7.32-7.43); VBG pO2 51 mmHg
[2023-02-26 13:39] LABS: Basophils Absolute Auto 0.1 X10*3/uL (0.0-0.2); Basophils Percent Auto 0.3 % (0-2); Eosinophils Percent Auto 0.1 % (0-4); Hematocrit 47.1 % (37.0-47.0); Hemoglobin 16.1 g/dl (12.0-16.0); Imm Gran Abs Auto 0.07 X10*3/uL (0.00-0.03); Imm Gran Pct Auto 0.4 % (0.0-0.4); Lymphocytes Absolute Auto 2.1 X10*3/uL (1.2-4.9); Mean Corpuscular HGB Conc 34.2 g/dl (31.0-35.0); Mean Corpuscular Hemoglobin 27.9 pg (27.0-33.0); Mean Corpuscular Volume 81.5 fL (80.0-98.0); Mean Platelet Volume 9.9 fL (9.4-12.3); Monocytes Absolute Auto 1.3 X10*3/uL (0.1-1.2); Neutrophils Absolute Auto 15.3 x10*3/uL (2.0-8.3); Neutrophils Percent Auto 81.2 % (45-73); Platelet Count 302 X10*3/uL (160-400); Red Blood Count 5.78 X10*6/uL (4.20-5.50); Red Cell Distribution Width 13.1 % (11.0-16.0); White Blood Count 18.9 X10*3/uL (4.8-10.8)
[2023-02-26] MEDS: 0.9 % Sodium Chloride 1,000 ML 999 ML IV (13:47)
[2023-02-26] MEDS: ondansetron HCL 4 MG/2 ML VIAL IVPUSH (13:47)
[2023-02-26] MEDS: Magnesium Hydrox/Alum Hydrox 30 ML ORAL.SUSP PO (13:47)
[2023-02-26] MEDS: Famotidine/PF 20 MG/2 ML VIAL IVPUSH (13:47)
[2023-02-26 13:51] LABS: Alanine Aminotransferase 24 U/L (0-31); Albumin Level 4.2 g/dL (3.5-5.0); Alkaline Phosphatase 118 U/L (39-117); Anion Gap 14 (12-20); Aspartate Amino Transferase 17 U/L (5-31); Bilirubin Total 0.7 mg/dL (0.0-1.0); Blood Urea Nitrogen 8 mg/dL (9-16); Calcium 9.3 mg/dL (8.4-10.2); Carbon Dioxide 23 mmol/L (22-29); Chloride 104 mmol/L (96-108); Creatinine Clr Calc Pharmacy 62.1; Estimated Glomerular Filt Rate > 60; Glucose Random 264 mg/dL (60-115); Potassium 3.6 mmol/L (3.3-5.1); Sodium 137 mmol/L (135-145)
[2023-02-26] MEDS: Albuterol/Iprat 2.5/0.5MG 3 ML AMPUL.NEB INHALE (13:55)
[2023-02-26 13:56] VITALS: PULSE 79; O2SAT 100
[2023-02-26 14:02] LABS: Lactic Acid 2.6 mmol/L (0.5-2.0)
[2023-02-26 14:13] LABS: Influenza A PCR NEGATIVE (Negative); Influenza B PCR NEGATIVE (Negative); Resp Syncy Virus RNA Qual PCR NEGATIVE (Negative); SARS COV2 PCR INHOUSE NEGATIVE (Negative)
[2023-02-26 14:42] LABS: Appearance Urine Clear; Color Urine Yellow; Glucose Urine UA >=1000 mg/dL (Negative); Leukocyte Esterase Urine Negative (Negative); Nitrite Urine Negative (Negative); UMIC TRIGGER UACC YES; Urine Blood Negative (Negative); Urine Ketones Trace mg/dL (Negative); Urine Protein 30 (1+) mg/dL (Neg-Trace)
[2023-02-26 14:44] LABS: Bacteria Urine Trace (None Seen); Hyaline Casts Urine 0-2 /LPF (0-2); RBC Urine 0-2 /HPF (0-2); WBC Urine 0-5 /HPF (0-5)
[2023-02-26 15:25] VITALS: BP 181/71; PULSE 94; RESP 18; O2SAT 96
[2023-02-26 15:39] VITALS: TEMP 37
[2023-02-26 15:40] LABS: Reflex Lactate? Lactic Acid Added
[2023-02-26] MEDS: Ketorolac Tromethamine 15 MG/ML VIAL IVPUSH (16:54)
[2023-02-26 17:54] LABS: ~Lactic Acid-LAB USE ONLY 1.8 mmol/L (0.5-2.0)
[2023-02-26 18:42] VITALS: BP 166/63; PULSE 82; RESP 16; TEMP 36.7; O2SAT 95
[2023-02-26 19:05] VITALS: PULSE 90; RESP 16; O2SAT 95
== END 2023-02-26 19:06 | disposition home or self-care (01) ==
PROVIDERS: Student in an Organized Health Care Education/Training Program; Emergency Provider Emergency Medicine; PCP Nurse Practitioner Primary Care
DX: K52.9 Noninfective gastroenteritis and colitis, unspecified (principal); R11.2 Nausea with vomiting, unspecified; R10.32 Left lower quadrant pain; R05.9 Cough, unspecified; R94.31 Abnormal electrocardiogram [ECG] [EKG]; R06.02 Shortness of breath; R10.2 Pelvic and perineal pain; Z79.899 Other long term (current) drug therapy; Z20.822 Contact with and (suspected) exposure to COVID-19; Z20.828 Contact with and (suspected) exposure to other viral communicable diseases
CPT/HCPCS: 0241U; 36415; 71045; 74176; 80053; 81001; 82803; 82947; 83605; 85025; 87040; 93005; 94640; 96361; 96374; 96375; 99284; 99285; J1885; J2405

== ENCOUNTER → 2023-02-26 12:19 | Outpatient (BNV) | payer OTHER, SELFPAY | PROVIDERS: Emergency Provider Emergency Medicine; PCP Nurse Practitioner Primary Care; Visit Provider Internal Medicine Cardiovascular Disease | DX: R94.31 Abnormal electrocardiogram [ECG] [EKG] (principal) | CPT/HCPCS: 93010 ==

== ENCOUNTER 2023-02-27 20:10 | Inpatient (IN) | payer OTHER, SELFPAY ==
--- NOTE | ~2023-02-27 | CT_ITS ---
EXAMINATION: CT ABDOMEN AND PELVIS WITHOUT CONTRAST CLINICAL INFORMATION: Colitis COMPARISON: CT abdomen pelvis 02/26/2023 TECHNIQUE: Multidetector volumetric imaging was performed from the superior aspect of the liver through the pubic symphysis. Sagittal and coronal reformatted images were obtained on the technologist's workstation. This CT examination was performed using dose optimization techniques as appropriate, variously including the following: *Automated exposure control *Adjustment of mA and/or kV according to patient size (this includes techniques or standardized protocols for targeted exams where dose is matched to indication/reason for exam; i.e. extremities or head) *Use of iterative reconstruction technique DLP: 694 mGy-cm FINDINGS: LUNG BASES: New tiny bilateral pleural effusions are seen with bibasilar atelectasis and some bronchial wall thickening. No suspicious lung masses or consolidations. LIVER, GALLBLADDER, AND BILIARY TREE: The liver is normal in size and shape but demonstrates decreased attenuation consistent with hepatic steatosis. No focal hepatic lesion or biliary ductal dilatation is present. Status post cholecystectomy. PANCREAS: Unremarkable. SPLEEN: Unremarkable. ADRENAL GLANDS: Unremarkable. KIDNEYS AND URETERS: The kidneys are normal in size, shape, and attenuation with the exception of an area of scarring at the left upper pole with associated caliectasis probably secondary to remote infection. A benign left lower pole 4.0 cm Bosniak class I renal cyst is noted which requires no additional imaging or follow up. No solid renal masses are seen. No hydronephrosis, hydroureter, or calculi seen. No perinephric stranding. BLADDER: Unremarkable. GASTROINTESTINAL TRACT: The previous changes of colitis seen on the study 4 days ago have nearly completely resolved with only one area of mild pericolonic inflammatory change seen - the mucosal thickening noted previously has resolved. No pneumatosis. There are continued changes of colonic diverticulosis without diverticulitis. The small and large bowel are otherwise unremarkable. The appendix is not identified but there is no evidence of appendicitis. ABDOMINAL WALL: No significant hernia is appreciated. LYMPH NODES: No retroperitoneal lymphadenopathy. VASCULAR: Unremarkable. PELVIC VISCERA: The uterus is not seen. An abnormal adnexal mass is not detected. No free intraperitoneal fluid is present. OSSEOUS STRUCTURES: Unremarkable. CT/CT abdomen pelvis wo IV con IMPRESSION: 1. The previous changes of colitis seen on the study 4 days ago have nearly completely resolved with only one area of residual mild pericolonic inflammatory change remaining - the mucosal thickening noted previously has resolved. 2. New tiny bilateral pleural effusions. 3. Other incidental findings as described above. Fleischner guidelines were followed.
--- NOTE | ~2023-02-27 | XR_ITS ---
EXAMINATION: XR CHEST CLINICAL INFORMATION: Cough. COMPARISON: February 26, 2023 and March 24, 2022. TECHNIQUE: AP portable view of the chest was obtained. FINDINGS: There is slight opacity in the retrocardiac region which may relate to focus of atelectasis or pneumonitis. There is linear atelectasis or scarring seen at the right base. There is some bronchial wall thickening present which may be related to reactive airways disease or viral/atypical pneumonitis. No pneumothorax or pleural effusion. Heart normal size. No evidence of pulmonary edema. XR/XR chest 1V IMPRESSION: Faint retrocardiac density which may be related to atelectasis or small focus of pneumonitis. Mild central bronchial wall thickening which may be related to reactive airways disease or bronchitis.
[2023-02-27 20:22] VITALS: BP 182/98; BP 196/84; PULSE 84; PULSE 89; RESP 16; TEMP 37.1; O2SAT 96; O2SAT 98; BMI 33.8
[2023-02-27 20:43] LABS: MANUAL DIFF FLAG NO
[2023-02-27 20:48] VITALS: BP 198/84; PULSE 84; RESP 14; TEMP 37.1; O2SAT 98
[2023-02-27 20:51] LABS: Basophils Absolute Auto 0.1 X10*3/uL (0.0-0.2); Basophils Percent Auto 0.4 % (0-2); Eosinophils Absolute Auto 0.2 X10*3/uL (0.0-0.4); Eosinophils Percent Auto 1.1 % (0-4); Hemoglobin 14.7 g/dl (12.0-16.0); Imm Gran Abs Auto 0.07 X10*3/uL (0.00-0.03); Imm Gran Pct Auto 0.4 % (0.0-0.4); Lymphocytes Absolute Auto 2.1 X10*3/uL (1.2-4.9); Lymphocytes Percent Auto 11.3 % (20-40); Mean Corpuscular HGB Conc 33.4 g/dl (31.0-35.0); Mean Corpuscular Hemoglobin 27.9 pg (27.0-33.0); Mean Corpuscular Volume 83.5 fL (80.0-98.0); Mean Platelet Volume 9.6 fL (9.4-12.3); Monocytes Absolute Auto 1.2 X10*3/uL (0.1-1.2); Monocytes Percent Auto 6.7 % (2-11); Neutrophils Absolute Auto 14.8 x10*3/uL (2.0-8.3); Neutrophils Percent Auto 80.1 % (45-73); Platelet Count 260 X10*3/uL (160-400); Red Blood Count 5.27 X10*6/uL (4.20-5.50); Red Cell Distribution Width 13.2 % (11.0-16.0); White Blood Count 18.5 X10*3/uL (4.8-10.8)
--- NOTE | 2023-02-27 20:56 | ED.GENADULT ---
HPI - General Adult General Chief complaint: General Medical Stated complaint: rectal bleed Time Seen by Provider: 02/27/23 20:55 Source: patient Mode of arrival: ambulatory Limitations: no limitations History of Present Illness HPI narrative: Patient is 67 years or with history of hypertension asthma constipation apparently had ceased seafood which include shrimps 2 days ago at 18:30 within half an hour of eating food patient started vomiting with diarrhea and episodes was seen here yesterday lab workup showed leukocytosis CT scan showed diffuse inflammation/enteritis patient was treated symptomatically and discharged patient has still been having diarrhea and vomiting prior to arrival patient had bowel movement with blood and dark color clots and increased discomfort patient had colonoscopy on 01/05 which showed diverticular disease pain is mostly diffuse but more in the lower abdomen and left lower quadrant patient denies any fever but has some chills no other family member sick no other family member had same food Related Data Home Medications Medication Instructions Recorded Confirmed diclofenac sodium 75 mg 75 mg PO BID 02/28/20 12/23/22 tablet,delayed release hydrochlorothiazide 50 mg tablet 50 mg PO DAILY 02/29/20 12/23/22 blood sugar diagnostic #10 ea 03/19/20 09/22/22 fluticasone propionate 110 1 puff inhalation DAILY 03/19/20 12/23/22 mcg/actuation HFA aerosol inhaler furosemide 20 mg tablet 20 mg PO DAILY 03/19/20 12/23/22 hydroxyzine HCl 50 mg tablet 50 mg PO Q8H PRN anxiety 03/19/20 12/23/22 lisinopril 40 mg tablet 40 mg PO DAILY 03/19/20 12/23/22 tramadol 50 mg tablet 50 mg PO TID PRN Pain 03/19/20 12/23/22 metoprolol succinate 200 mg 200 mg PO DAILY 07/09/20 12/23/22 tablet,extended release 24 hr trazodone 150 mg tablet 150 mg PO BEDTIME 07/09/20 12/23/22 lancets 33 gauge (Jenelle Decker #100 ea 04/17/21 09/22/22 Plus Lancet) verapamil 180 mg tablet,extended 180 mg PO DAILY 10/17/21 12/23/22 release albuterol sulfate 0.63 mg/3 mL 1 amp inhalation Q4-6H PRN wheezing 03/24/22 12/23/22 solution for nebulization aspirin 81 mg tablet,delayed 1 tab PO DAILY 03/24/22 12/18/22 release levothyroxine 75 mcg tablet 75 mcg PO DAILY@0630 03/24/22 12/23/22 multivitamin-ferrous 1 tab PO DAILY 03/24/22 12/23/22 fumarate-folic acid 18 mg-400 mcg tablet (Certavite-Antioxidant) Previous Rx's Medication Instructions Recorded acetaminophen 650 mg 650 mg PO Q8H PRN pain #90 tabs 09/11/20 tablet,extended release meclizine 25 mg tablet 25 mg PO DAILY PRN dizziness #20 02/11/21 tabs cyclobenzaprine 10 mg tablet 10 mg PO TID PRN muscle spasm #10 06/05/21 tabs metformin 500 mg tablet,extended 1,000 mg (2 x 500 mg) PO BID 30 11/20/21 release 24 hr days #120 tabs albuterol sulfate 90 mcg/actuation 90 mcg inhalation Q4H PRN Wheezing 03/04/22 aerosol inhaler (Ventolin HFA) #8.5 grams insulin glargine 100 unit/mL (3 34 unit (0.34 mL) subcut BEDTIME 04/23/22 mL) subcutaneous pen (Lantus #15 mL Solostar U-100 Insulin) gabapentin 100 mg capsule 300 mg (3 x 100 mg) PO BEDTIME #90 05/16/22 caps benzonatate 200 mg capsule 200 mg PO BID PRN cough 30 days 05/29/22 #60 caps fluticasone fur. 200 mcg-umeclid 1 inh inhalation DAILY 30 days #60 05/29/22 62.5 mcg-vilant 25 mcg ea inhalat.powder (Trelegy Ellipta) mecobalamin (vitamin B12) 1,000 1,000 mcg PO DAILY 30 days #30 tabs 08/18/22 mcg chewable tablet clotrimazole-betamethasone 1 1 appl topical BID PRN itching 7 08/29/22 %-0.05 % topical cream days #45 grams cholecalciferol (vitamin D3) 50 50 mcg PO QAM #30 tabs 12/03/22 mcg (2,000 unit) tablet pioglitazone 15 mg tablet 15 mg PO DAILY #30 tabs 12/03/22 rosuvastatin 40 mg tablet 40 mg PO DAILY #30 tabs 12/03/22 semaglutide 0.25 mg or 0.5 mg (2 0.5 mg (0.736 mL) subcut QWEEK #3 12/03/22 mg/3 mL) subcutaneous pen injector mL (Ozempic) empagliflozin 25 mg tablet 25 mg PO DAILY #30 tabs 12/15/22 (Jardiance) dexlansoprazole 60 mg 60 mg PO DAILY 30 days #30 caps 01/06/23 capsule,biphase delayed release (Dexilant) linaclotide 290 mcg capsule 290 mcg PO QAM #30 caps 01/06/23 (Linzess) ibuprofen 600 mg tablet 600 mg PO TID PRN fever or pain 02/26/23 #20 tabs ondansetron 4 mg disintegrating 4 mg PO Q6-8H PRN nausea and 02/26/23 tablet vomiting #10 tabs Allergies Allergy/AdvReac Type Severity Reaction Status Date / Time No Known Allergies Allergy Verified 02/24/23 15:28 [No Known Allergies*] Review of Systems Review of Systems: Yes all other systems are reviewed and are negative PMFSH Past Medical History Medical History Cough due to SHANELLE inhibitor Eosinophilia Asthma HTN (hypertension) T2DM (type 2 diabetes mellitus) Erosive gastritis Leg edema, left Hyperparathyroidism Vitamin D deficiency Multinodular thyroid Thyroid nodule Skin lesion of chest wall Type 2 diabetes mellitus with diabetic polyneuropathy Fibromyalgia Depression with anxiety Cervical cancer Osteoarthritis of left knee Osteopenia GERD (gastroesophageal reflux disease) Diabetes mellitus with hyperglycemia Meir's disease Other specified acquired hypothyroidism Hyperlipidemia LDL goal <100 Essential hypertension Vitamin B12 deficiency Other obesity due to excess calories BMI 35.0-35.9,adult Surgical History History of cholecystectomy History of arthroplasty of right knee Hx of arthroscopy of left knee Hx of hysterectomy Hx of foot surgery History of bilateral carpal tunnel release Hx of bilateral oophorectomy History of esophagogastroduodenoscopy (EGD) Hx of colonoscopy Family History Family History Father CVD (cardiovascular disease) Diabetes mellitus Stroke Mother Stroke Diabetes mellitus Breast cancer Hyperthyroidism Social History Social History Household Members: Significant Other Housing: House Are you a primary rn complex care to a significant other at home: No Do you presently have visiting nurse or other home services: No Alcohol intake: never Patient Tobacco Use Status: Never used Tobacco Smoked in Last 30 Days: No Use of substances other than those prescribed or required for medical reasons: No Advance Directives: No Advance Directives Information Provided: No service: No 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al status: disabled 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: Right Handed Physical Exam ED Vital Signs: Vital Signs - 24 hr 02/27/23 20:22 02/27/23 20:48 02/27/23 21:53 Temperature 98.8 F 98.8 F Pulse Rate 84 84 Respiratory Rate 16 14 16 Blood Pressure 196/84 H 198/84 H Pulse Oximetry 96 98 Oxygen Delivery Method Room Air Room Air 02/27/23 22:43 02/27/23 23:02 02/27/23 23:41 Temperature 98.3 F 98.0 F Pulse Rate 73 72 Respiratory Rate 18 16 16 Blood Pressure 183/76 H 164/81 H Pulse Oximetry 98 98 Oxygen Delivery Method Room Air Room Air BMI result Body Mass Index 33.8 Appearance: Alert. Oriented X3. No acute distress. Eyes: No pallor or icterus ENT: Pharynx normal. Oral Mucosa moist Neck: Normal inspection. Neck supple. CVS: Normal heart rate and rhythm. Pulses normal. Respiratory: No respiratory distress. Equal air entry bilateral, Abdomen: Soft , diffuse lower abdominal tenderness left lower quadrant tenderness with guarding no rebound tenderness Bowel sounds are present, no mass palpable, no CVA tenderness Skin: Skin warm and dry. Normal skin color. Normal skin turgor. Extremities: No lower extremity edema. No calf tenderness Neuro: Oriented X 3. Medications Administered Generic Name Dose Route Start Last Admin Trade Name Freq PRN Reason Stop Dose Admin Dextrose/Sodium Chloride 1,000 mls @ 150 mls/hr 02/27/23 23:45 02/28/23 00:55 D5ns IVCONT 02/28/23 13:04 150 mls/hr .Q6H40M APARNA Administration Sodium Chloride 3 ml 02/28/23 00:00 02/28/23 00:53 0.9 % Sodium Chloride Flush 3 Ml Syringe IVFLUSH 3 ml QSHIFT APARNA Administration Discontinued Medications Generic Name Dose Route Start Last Admin Trade Name Freq PRN Reason Stop Dose Admin Dicyclomine HCl 20 mg 02/27/23 22:23 02/27/23 22:43 Dicyclomine Hcl 10 Mg Capsule PO 02/27/23 22:24 20 mg ONCE ONE Administration Sodium Chloride 1,000 mls @ 999 mls/hr 02/27/23 20:58 02/27/23 22:54 Ns IV 02/27/23 21:58 Infused .Q1H1M ONE Infusion Ceftriaxone Sodium 1 gm/ 50 mls @ 100 mls/hr 02/27/23 20:58 02/27/23 22:30 Sodium Chloride IV 02/27/23 21:27 Infused ONCE ONE Infusion Sodium Chloride 1,000 mls @ 999 mls/hr 02/27/23 23:42 02/28/23 00:53 Ns IV 02/28/23 00:42 Infused .Q1H1M ONE Infusion Metronidazole 500 mg 02/27/23 20:58 02/27/23 21:53 Metronidazole 500 Mg Tablet PO 02/27/23 20:59 500 mg ONCE ONE Administration Morphine Sulfate 4 mg 02/27/23 21:12 02/27/23 21:53 Morphine Sulfate 4 Mg/Ml Cartridge IVPUSH 02/27/23 21:13 4 mg ONCE ONE Administration Protocol Morphine Sulfate 4 mg 02/27/23 22:23 02/27/23 22:43 Morphine Sulfate 4 Mg/Ml Cartridge IVPUSH 02/27/23 22:24 4 mg ONCE ONE Administration Protocol Ondansetron HCl 4 mg 02/27/23 21:12 02/27/23 21:53 Ondansetron Hcl 4 Mg/2 Ml Vial IVPUSH 02/27/23 21:13 4 mg ONCE ONE Administration Medical Decision Making Medical Decision Making [facility] Narrative: Patient has acute colitis with lower GI bleed after eating shrimp with leukocytosis in the blood CT scan done on 02/26 showed Wall thickening and submucosal edema of the splenic flexure through the descending colon with pericolonic inflammatory changes patient had recent colonoscopy 01/05 which showed diverticular disease repeat labs showed leukocytosis H&H stable patient is still uncomfortable with diffuse discomfort in lower abdomen is still nauseated and vomiting will admit patient for enteritis patient received IV antibiotics Differential Diagnosis Differential Diagnoses: The differential diagnosis associated with the presentation includes Colitis/diverticulitis/enteritis Admission/Observation Consideration of admission/observation: Escalation of care including admission/observation considered Consult Healthcare Provider Management of the patient was discussed with: Hospitalist Lab Data MDM Lab Attestation statement: I reviewed the patient's lab results. 02/27/23 20:37 02/27/23 20:37 Labs: Lab Results 02/27/23 02/27/23 02/27/23 Range/Units 20:37 20:49 21:52 WBC 18.5 H (4.8-10.8) X10*3/uL RBC 5.27 (4.20-5.50) X10*6/uL Hgb 14.7 (12.0-16.0) g/dl Hct 44.0 (37.0-47.0) % MCV 83.5 (80.0-98.0) fL MCH 27.9 (27.0-33.0) pg MCHC 33.4 (31.0-35.0) g/dl RDW 13.2 (11.0-16.0) % Plt Count 260 (160-400) X10*3/uL MPV 9.6 (9.4-12.3) fL Immature Gran % (Auto) 0.4 (0.0-0.4) % Neut % (Auto) 80.1 H (45-73) % Lymph % (Auto) 11.3 L (20-40) % Lane % (Auto) 6.7 (2-11) % Eos % (Auto) 1.1 (0-4) % Baso % (Auto) 0.4 (0-2) % Lymph # (Auto) 2.1 (1.2-4.9) X10*3/uL Lane # (Auto) 1.2 (0.1-1.2) X10*3/uL Eos # (Auto) 0.2 (0.0-0.4) X10*3/uL Baso # (Auto) 0.1 (0.0-0.2) X10*3/uL Abs Immat Gran (auto) 0.07 H (0.00-0.03) X10*3/uL Absolute Neuts (auto) 14.8 H (2.0-8.3) x10*3/uL Absolute Nucleated RBC 0.000 (0.0-0.012) X10*3/uL Nucleated RBC % (auto) 0.0 (0.0-0.2) /100WBC Sodium 142 (135-145) mmol/L Potassium 4.3 (3.3-5.1) mmol/L Chloride 105 (96-108) mmol/L Carbon Dioxide 25 (22-29) mmol/L Anion Gap 16 (12-20) BUN 12 (9-16) mg/dL Creatinine 1.09 (0.5-1.4) mg/dL Estim Creat Clear Calc 55.3 Estimated GFR 50 Random Glucose 290 H (60-115) mg/dL Lactic Acid 1.5 (0.5-2.0) mmol/L Calcium 9.1 (8.4-10.2) mg/dL Total Bilirubin 0.5 (0.0-1.0) mg/dL AST 18 (5-31) U/L ALT 17 (0-31) U/L Alkaline Phosphatase 112 (39-117) U/L Total Protein 7.4 (6.5-8.0) g/dL Albumin 3.8 (3.5-5.0) g/dL Lipase 23 (8-78) U/L Urine Color Yellow Urine Appearance Clear Urine pH 6.5 (5.0-9.0) Ur Specific [employer] 1.015 (1.005-1.025) Urine Protein 30 (1+) H (Neg-Trace) mg/dL Urine Glucose (UA) >=1000 H (Negative) mg/dL Urine Ketones Negative (Negative) mg/dL Urine Blood Trace H (Negative) Urine Nitrite Negative (Negative) Ur Leukocyte Esterase Negative (Negative) Urine RBC 0-2 (0-2) /HPF Urine WBC 0-5 (0-5) /HPF Ur Squamous Epith Cells 3-5 (0-2) /HPF Urine Bacteria Trace (None Seen) Hyaline Casts 0-2 (0-2) /LPF Discharge Plan Discharge Clinical Impression: Colitis Patient Disposition: Admitted As Inpatient
[2023-02-27 20:59] LABS: Alanine Aminotransferase 17 U/L (0-31); Albumin Level 3.8 g/dL (3.5-5.0); Alkaline Phosphatase 112 U/L (39-117); Anion Gap 16 (12-20); Aspartate Amino Transferase 18 U/L (5-31); Bilirubin Total 0.5 mg/dL (0.0-1.0); Blood Urea Nitrogen 12 mg/dL (9-16); Calcium 9.1 mg/dL (8.4-10.2); Carbon Dioxide 25 mmol/L (22-29); Chloride 105 mmol/L (96-108); Creatinine Clr Calc Pharmacy 55.3; Estimated Glomerular Filt Rate 50; Glucose Random 290 mg/dL (60-115); Lipase 23 U/L (8-78); Potassium 4.3 mmol/L (3.3-5.1); Sodium 142 mmol/L (135-145); Total Protein 7.4 g/dL (6.5-8.0)
[2023-02-27 21:01] LABS: Appearance Urine Clear; Color Urine Yellow; Glucose Urine UA >=1000 mg/dL (Negative); Leukocyte Esterase Urine Negative (Negative); Nitrite Urine Negative (Negative); PH 6.5 (5.0-9.0); Specific Gravity - Urine 1.015 (1.005-1.025); UMIC TRIGGER UACC YES; Urine Blood Trace (Negative); Urine Ketones Negative (Negative); Urine Protein 30 (1+) mg/dL (Neg-Trace)
[2023-02-27 21:29] LABS: Bacteria Urine Trace (None Seen); Hyaline Casts Urine 0-2 /LPF (0-2); RBC Urine 0-2 /HPF (0-2); WBC Urine 0-5 /HPF (0-5)
[2023-02-27 21:53] VITALS: RESP 16
[2023-02-27] MEDS: cefTRIAXone sodium 1 GM in 0.9 % Sodium Chloride 50 ML IV (21:53)
[2023-02-27] MEDS: metroNIDAZOLE 500 MG TABLET PO (21:53)
[2023-02-27] MEDS: Morphine Sulfate 4 MG/ML CARTRIDGE IVPUSH ×2 (21:53→22:43)
[2023-02-27] MEDS: ondansetron HCL 4 MG/2 ML VIAL IVPUSH (21:53)
[2023-02-27] MEDS: 0.9 % Sodium Chloride 1,000 ML 999 ML IV ×2 (21:54→23:46)
[2023-02-27 22:14] LABS: Lactic Acid 1.5 mmol/L (0.5-2.0)
[2023-02-27 22:43] VITALS: RESP 18
[2023-02-27] MEDS: Dicyclomine HCl 10 MG CAPSULE 20 MG PO (22:43)
[2023-02-27 23:02] VITALS: BP 183/76; PULSE 73; RESP 16; TEMP 36.8; O2SAT 98
[2023-02-27 23:41] VITALS: BP 164/81; PULSE 72; RESP 16; TEMP 36.7; O2SAT 98
--- NOTE | 2023-02-27 23:57 | PM.IMHP ---
History of Present Illness Date of Service: 02/27/23 Attending physician on admission: Luigi Martinez Chief Complaint: Bloody diarrhea 67 year old obese (BMI 33.8) female with multiple medical problems including T2DM (on Insulin), hypothyroidism, COPD, hypertension, hyperlipidemia, vitamin D deficiency, hyperparathyroidism presents to the emergency room accompanied by her complaining of severe abdominal pain, bloody diarrhea, nausea and vomiting since yesterday. HE states that they had shrimp fried rice and chicken broccoli from a [place] restaurant for dinner last night and that about 20 minutes later, patient had to hammonds to the bathroom where she had more than 10 episodes of vomiting followed by multiple episodes of non-bloody diarrhea. She spent more than an hour in the bathroom after which she came to the emergency room where she received analgesics and Maalox and was discharged home. Today she had mashed potatoes from another restaurant but soon after developed nausea, vomiting and this time had bloody diarrhea prompting her to return to the emergency room where initial blood work done revealed a leucocytosis of 18.5 k/mm3 with a left shift. She received a dose of IV Flagyl following which admission was requested. Review of Systems Review of Systems: Yes all other systems are reviewed and are negative [facility] Medical History Cough due to SHANELLE inhibitor Eosinophilia Asthma HTN (hypertension) T2DM (type 2 diabetes mellitus) Erosive gastritis Leg edema, left Hyperparathyroidism Vitamin D deficiency Multinodular thyroid Thyroid nodule Skin lesion of chest wall Type 2 diabetes mellitus with diabetic polyneuropathy Fibromyalgia Depression with anxiety Cervical cancer Osteoarthritis of left knee Osteopenia GERD (gastroesophageal reflux disease) Diabetes mellitus with hyperglycemia Meir's disease Other specified acquired hypothyroidism Hyperlipidemia LDL goal <100 Essential hypertension Vitamin B12 deficiency Other obesity due to excess calories BMI 35.0-35.9,adult Family History Father CVD (cardiovascular disease) Diabetes mellitus Stroke Mother Stroke Diabetes mellitus Breast cancer Hyperthyroidism Surgical History History of cholecystectomy History of arthroplasty of right knee Hx of arthroscopy of left knee Hx of hysterectomy Hx of foot surgery History of bilateral carpal tunnel release Hx of bilateral oophorectomy History of esophagogastroduodenoscopy (EGD) Hx of colonoscopy Social History Household Members: Significant Other Housing: House Are you a primary post acute care registered nurse to a significant other at home: No Do you presently have visiting nurse or other home services: No Alcohol intake: never Patient Tobacco Use Status: Never used Tobacco Smoked in Last 30 Days: No Use of substances other than those prescribed or required for medical reasons: No Advance Directives: No Advance Directives Information Provided: No Nutrition Risks: No Nutritional Risk service: No 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al status: disabled 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 Allergies Allergy/AdvReac Type Severity Reaction Status Date / Time No Known Allergies Allergy Verified 02/24/23 15:28 [No Known Allergies*] Home Medications Medication Instructions Recorded Confirmed Last Taken Type diclofenac sodium 75 mg 75 mg PO BID 02/28/20 12/23/22 Unknown History tablet,delayed release hydrochlorothiazide 50 mg tablet 50 mg PO DAILY 02/29/20 02/28/23 Unknown History blood sugar diagnostic #10 ea 03/19/20 09/22/22 Unknown History fluticasone propionate 110 1 puff inhalation DAILY 03/19/20 12/23/22 Unknown History mcg/actuation HFA aerosol inhaler furosemide 20 mg tablet 20 mg PO DAILY 03/19/20 02/28/23 Unknown History hydroxyzine HCl 50 mg tablet 50 mg PO Q8H PRN anxiety 03/19/20 02/28/23 Unknown History lisinopril 40 mg tablet 40 mg PO DAILY 03/19/20 02/28/23 Unknown History tramadol 50 mg tablet 50 mg PO TID PRN Pain 03/19/20 02/28/23 Unknown History metoprolol succinate 200 mg 200 mg PO DAILY 07/09/20 02/28/23 Unknown History tablet,extended release 24 hr trazodone 150 mg tablet 150 mg PO BEDTIME 07/09/20 02/28/23 Unknown History lancets 33 gauge (OneTouch Deldeja #100 ea 04/17/21 09/22/22 Unknown History Plus Lancet) verapamil 180 mg tablet,extended 180 mg PO DAILY 10/17/21 02/28/23 Unknown History release albuterol sulfate 0.63 mg/3 mL 1 amp inhalation Q4-6H PRN wheezing 03/24/22 02/28/23 Unknown History solution for nebulization aspirin 81 mg tablet,delayed 1 tab PO DAILY 03/24/22 02/28/23 12/21/22 History release levothyroxine 75 mcg tablet 75 mcg PO DAILY@0630 03/24/22 02/28/23 Unknown History multivitamin-ferrous 1 tab PO DAILY 03/24/22 02/28/23 Unknown History fumarate-folic acid 18 mg-400 mcg tablet (Certavite-Antioxidant) empagliflozin 25 mg tablet 25 mg PO DAILY 02/28/23 02/28/23 Unknown History (Jardiance) insulin glargine 100 unit/mL (3 38 unit subcut BEDTIME 02/28/23 02/28/23 Unknown History mL) subcutaneous pen (Lantus Solostar U-100 Insulin) pioglitazone 15 mg tablet 15 mg PO DAILY 02/28/23 02/28/23 Unknown History Physical Exam Vital Signs and Narrative: Vital Signs: Last Vital Signs Temp 98.0 F 02/27/23 23:41 Pulse 72 02/27/23 23:41 Resp 16 02/27/23 23:41 BP 164/81 H 02/27/23 23:41 Pulse Ox 98 02/27/23 23:41 O2 Del Method Room Air 02/27/23 23:41 BMI result Body Mass Index 33.8 General: Obese female in bed. Awake, alert and oriented x 4. No apparent distress Eyes: No pallor or jaundice. PERRLA, EOMI HENT: Moist oral mucus membranes. No oropharyngeal lesions. Neck: Supple. No cervical adenopathy. No JVD Cardiovascular: Regular rate and rhythm. Normal heart sounds. No murmurs, rubs or gallops. No JVD. No peripheral edema. Respiratory: Normal respiratory effort with no accessory muscle use. CTAB. Gastrointestinal: Abdomen is obese, flabby, very tender to palpation. NABS. No hepatosplenomegally Extremities: No edema. No calf tenderness. Good peripheral pulses Skin: Warm/Dry. No rashes. No mottling. Capillary refill is < 2 seconds Neurological: AAOx4. Intact speech & cognition. Normal gait & balance. CN II - XII grossly intact but not individually tested. No motor or sensory deficits Hematologic: No bleeding. No ecchymosis. No swollen or tender lymph nodes. Psychiatric: Cooperative. Appropriate mood and affect . Results Labs 02/27/23 20:37 02/27/23 20:37 Labs: Laboratory Results - last 24 hr 02/27/23 02/27/23 02/27/23 20:37 20:49 21:52 MCV 83.5 MCH 27.9 MCHC 33.4 RDW 13.2 Plt Count 260 MPV 9.6 Immature Gran % (Auto) 0.4 Neut % (Auto) 80.1 H Lymph % (Auto) 11.3 L [place] % (Auto) 6.7 Eos % (Auto) 1.1 Baso % (Auto) 0.4 Lymph # (Auto) 2.1 [place] # (Auto) 1.2 Eos # (Auto) 0.2 Baso # (Auto) 0.1 Abs Immat Gran (auto) 0.07 H Absolute Neuts (auto) 14.8 H Absolute Nucleated RBC 0.000 Nucleated RBC % (auto) 0.0 Anion Gap 16 Estim Creat Clear Calc 55.3 Estimated GFR 50 Random Glucose 290 H Lactic Acid 1.5 Calcium 9.1 Total Bilirubin 0.5 AST 18 ALT 17 Alkaline Phosphatase 112 Total Protein 7.4 Albumin 3.8 Lipase 23 Urine Color Yellow Urine Appearance Clear Urine pH 6.5 Ur Specific [place] 1.015 Urine Protein 30 (1+) H Urine Glucose (UA) >=1000 H Urine Ketones Negative Urine Blood Trace H Urine Nitrite Negative Ur Leukocyte Esterase Negative Urine RBC 0-2 Urine WBC 0-5 Ur Squamous Epith Cells 3-5 Urine Bacteria Trace Hyaline Casts 0-2 Imaging Radiologist's Impressions: CT of Abdomen and pelvis wo IV contrast Wall thickening and submucosal edema of the splenic flexure through the descending colon with pericolonic inflammatory changes. This most likely represents colitis. Infectious and inflammatory etiologies should be considered. Hepatic steatosis. 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 Gastroenteritis - stool studies - give 1000 mg of IV Azithromycin - start analgesics and anti emetics - clear liquid diet and IV fluids 2. Hyperglycemia - 2/2 poorly controlled T2DM - will give half dose of Lantus tonight and resume 38 units at bedtime tomorrow - resume Metformin, Pioglitazone and Jardiance - add SSI correction scale - closely monitor blood sugars 3. Hypertension - poorly uncontrolled with BP 196/84 mmHg - resume Verapamil and Metoprolol - hold HCTZ 4. Hypothyroidism - resume Levothyroxine 5. Obesity - BMI 33.8 kg/m2 - encourage weight loss Total time managing care of this patient today: 55 minutes. Quality Stroke Does the patient have a stroke diagnosis?: No VTE Prior VTE?: No VTE Risk Level:: Medical - moderate - high VTE Device Contraindication: N/A - Device Ordered VTE Drug Contraindication: Treatment Not Indicated
[2023-02-28] VITALS (7 sets, daily range): BP systolic 90–149; BP diastolic 47–71; PULSE 60–87; RESP 16–18; TEMP 36.7–37.1; O2SAT 94–98; BMI 35.5
[2023-02-28] MEDS: 0.9 % Sodium Chloride Flush 3 ML SYRINGE IVFLUSH ×4 (00:53→19:50)
[2023-02-28] MEDS: Dextrose 5 % and 0.9 % NaCl 1,000 ML 150 ML IVCONT (00:55)
[2023-02-28 01:16] LABS: Glucose, Whole Blood 180 mg/dL (60-115)
[2023-02-28] MEDS: Insulin Glargine,Hum.rec.anlog 100 UNIT/ML 10 ML VIAL 20 UNIT SUBCUT ×2 (01:18→21:04)
[2023-02-28] MEDS: Azithromycin 1,000 MG in 0.9 % Sodium Chloride 250 ML 125 MG IV (01:19)
[2023-02-28] MEDS: HYDROmorphone HCl 0.5 MG/0.5 ML SYRINGE IVPUSH ×3 (01:19→18:03)
[2023-02-28] MEDS: Gabapentin 300 MG CAPSULE PO ×2 (03:01→19:51)
[2023-02-28] MEDS: traZODone HCL 50 MG TABLET 150 MG PO ×2 (03:01→19:51)
--- NOTE | 2023-02-28 03:10 | PC.NURSE ---
Dr. Martinez at bedside, MD informed of pain in LLQ 12/23 despite pain medications administration.
[2023-02-28] MEDS: HYDROmorphone HCl 1 MG/ML SYRINGE IVPUSH (04:04)
[2023-02-28] MEDS: Levothyroxine Sodium 75 MCG TABLET PO (05:44)
[2023-02-28 06:24] LABS: Hematocrit 39.4 % (37.0-47.0); Hemoglobin 13.1 g/dl (12.0-16.0); Mean Corpuscular HGB Conc 33.2 g/dl (31.0-35.0); Mean Corpuscular Hemoglobin 27.8 pg (27.0-33.0); Mean Corpuscular Volume 83.7 fL (80.0-98.0); Mean Platelet Volume 9.7 fL (9.4-12.3); Platelet Count 234 X10*3/uL (160-400); Red Blood Count 4.71 X10*6/uL (4.20-5.50); White Blood Count 19.5 X10*3/uL (4.8-10.8)
[2023-02-28] MEDS: Prochlorperazine Edisylate 10 MG/2 ML VIAL IVPUSH (06:33)
[2023-02-28] MEDS: 0.9 % Sodium Chloride 1,000 ML 999 ML IV (06:33)
[2023-02-28] MEDS: Ketorolac Tromethamine 30 MG/ML VIAL IVPUSH ×2 (06:33→13:14)
[2023-02-28 06:44] LABS: Anion Gap 12 (12-20); Blood Urea Nitrogen 7 mg/dL (9-16); Carbon Dioxide 23 mmol/L (22-29); Chloride 110 mmol/L (96-108); Creatinine Clr Calc Pharmacy 76.5; Estimated Glomerular Filt Rate > 60; Glucose Random 250 mg/dL (60-115); Magnesium 1.9 mg/dL (1.6-2.6); Potassium 3.7 mmol/L (3.3-5.1); Sodium 141 mmol/L (135-145)
[2023-02-28 07:35] LABS: Glucose, Whole Blood 207 mg/dL (60-115)
[2023-02-28] MEDS: VerapamiL HCL SR 180 MG TABLET.ER PO (08:10)
[2023-02-28] MEDS: Insulin Lispro 100 UNIT/ML 3 ML VIAL SUBCUT ×2 (08:10→11:41)
[2023-02-28] MEDS: metFORMIN HCl ER 500 MG TAB.ER.24H 1000 MG PO (08:11)
[2023-02-28] MEDS: Aspirin Enteric Coated 81 MG TABLET.DR PO (08:11)
[2023-02-28] MEDS: Cholecalciferol (Vitamin D3) 25 MCG TABLET 50 MCG PO (08:11)
[2023-02-28] MEDS: lisinopriL 40 MG TABLET PO (08:11)
[2023-02-28] MEDS: Metoprolol Succinate ER 100 MG TAB.ER.24H 200 MG PO (08:11)
[2023-02-28] MEDS: Empagliflozin 25 MG TABLET PO (08:11)
--- NOTE | 2023-02-28 08:15 | PHA.MEDREC ---
Pharmacy Consult ? Medication Reconciliation Pharmacy has completed the medication reconciliation. Utilized [employer]. Spoke to patient to confirm meds with spouse at bedside.
[2023-02-28] MEDS: Cyanocobalamin (Vitamin B-12) 1,000 MCG TABLET 1000 MCG PO (09:14)
[2023-02-28] MEDS: metroNIDAZOLE/NS 500 MG/100 ML PIGGYBACK 100 MG IV ×2 (09:15→17:59)
[2023-02-28 11:14] LABS: Glucose, Whole Blood 211 mg/dL (60-115)
[2023-02-28] MEDS: hydrOXYzine HCL 50 MG TABLET PO (11:41)
--- NOTE | 2023-02-28 13:50 | HO.PM.IMPN ---
Subjective Subjective Date of Service: 02/28/23 Interval History: gasteroentritis Review of Systems has abd pain,unable to take po yet denies any fevers or chills Physical Exam Vital Signs: Vital Signs: Last Vital Signs Temp 98.6 F 02/28/23 07:03 Pulse 60 02/28/23 11:30 Resp 18 02/28/23 11:30 BP 101/55 L 02/28/23 11:30 Pulse Ox 96 02/28/23 11:30 O2 Del Method Room Air 02/28/23 11:30 BMI result Body Mass Index 35.5 General: Obese female in bed. has pain Cardiovascular: Regular rate and rhythm. Normal heart sounds. Respiratory: air entry fair ,no rales or wheezing Gastrointestinal: obese ,nd ,llq pain ,bs present Extremities: No edema. No calf tenderness. Good peripheral pulses Skin: Warm/Dry. No rashes. No mottling. Neurological: AAOx4. moves all ext Psychiatric: Cooperative. Appropriate mood and affect Objective Data Active Medications Acetaminophen (Acetaminophen 325 Mg Tablet) 650 mg PO Q6H PRN PRN Reason: Pain, Mild (Pain Scale 1-3) Al Hydroxide/Mg Hydroxide (Magnesium Hydrox/Alum Hydrox 30 Ml Oral.Susp) 30 ml PO Q4H PRN PRN Reason: Heartburn/Nausea Albuterol Sulfate (Albuterol Sulfate (0.042%) 1.25 Mg/3 Ml Vial.Neb) 1.25 mg INHALE Q4H PRN PRN Reason: wheezing Aspirin (Aspirin Enteric Coated 81 Mg Tablet.) 81 mg PO DAILY [facility] Last Admin: 02/28/23 08:11 Dose: 81 mg Documented By: EDUARDO Clonidine HCl (Clonidine Hcl 0.2 Mg Tablet) 0.2 mg PO BEDTIME [facility]; Protocol Cyanocobalamin (Cyanocobalamin (Vitamin B-12) 1,000 Mcg Tablet) 1,000 mcg PO DAILY [facility] Last Admin: 02/28/23 09:14 Dose: 1,000 mcg Documented By: EDUARDO Dextrose (Dextrose 50 % 25 Gm/50 Ml Syringe) 25 gm IVPUSH Q15M PRN; Protocol PRN Reason: per Hypoglycemia Standing Ord. Empagliflozin (Empagliflozin 25 Mg Tablet) 25 mg PO DAILY [facility] Last Admin: 02/28/23 08:11 Dose: 25 mg Documented By: EDUARDO Gabapentin (Gabapentin 300 Mg Capsule) 300 mg PO BEDTIME [facility] Last Admin: 02/28/23 03:01 Dose: 300 mg Documented By: KENNEDY Glucose (Glucose Gel 15 Gm Gel..Gram.) 15 gm PO Q15M PRN; Protocol PRN Reason: per Hypoglycemia Standing Ord. Hydromorphone HCl (Hydromorphone Hcl 0.5 Mg/0.5 Ml Syringe) 0.5 mg IVPUSH Q4H PRN; Protocol PRN Reason: Pain, Severe (Pain Scale 7-10) Last Admin: 02/28/23 09:14 Dose: 0.5 mg Documented By: EDUARDO Hydroxyzine HCl (Hydroxyzine Hcl 50 Mg Tablet) 50 mg PO Q8H PRN PRN Reason: anxiety Last Admin: 02/28/23 11:41 Dose: 50 mg Documented By: EDUARDO Ceftriaxone Sodium 1 gm/ (Sodium Chloride) 50 mls @ 100 mls/hr IV Q24H [facility] Metronidazole (Flagyl) 500 mg in 100 mls @ 100 mls/hr IV Q8H [facility] Last Infusion: 02/28/23 10:40 Dose: Infused Documented By: EDUARDO Insulin Glargine (Insulin Glargine,Hum.Rec.Anlog 100 Unit/Ml 10 Ml Vial) 38 unit SUBCUT BEDTIME [facility] Insulin Human Lispro (Insulin Lispro 100 Unit/Ml 3 Ml Vial) 0 unit SUBCUT QIDACHS [facility]; Protocol Last Admin: 02/28/23 11:41 Dose: 4 unit Documented By: EDUARDO Ketorolac Tromethamine (Ketorolac Tromethamine 30 Mg/Ml Vial) 30 mg IVPUSH Q6H [facility] Stop: 03/01/23 01:01 Last Admin: 02/28/23 13:14 Dose: 30 mg Documented By: EDUARDO Levothyroxine Sodium (Levothyroxine Sodium 75 Mcg Tablet) 75 mcg PO DAILY@0600 [facility] Last Admin: 02/28/23 05:44 Dose: 75 mcg Documented By: OZORALB Lisinopril (Lisinopril 40 Mg Tablet) 40 mg PO DAILY [facility]; Protocol Last Admin: 02/28/23 08:11 Dose: 40 mg Documented By: EDUARDO Melatonin (Melatonin 3 Mg Tablet) 6 mg PO BEDTIME PRN PRN Reason: Insomnia Metformin HCl (Metformin Hcl Er 500 Mg Tab.Er.24h) 1,000 mg PO BID [facility] Last Admin: 02/28/23 08:11 Dose: 1,000 mg Documented By: EDUARDO Metoprolol Succinate (Metoprolol Succinate Er 100 Mg Tab.Er.24h) 200 mg PO DAILY [facility]; Protocol Last Admin: 02/28/23 08:11 Dose: 200 mg Documented By: EDUARDO Ondansetron HCl (Ondansetron Hcl 4 Mg/2 Ml Vial) 4 mg IVPUSH Q8H PRN PRN Reason: Nausea and Vomiting Pioglitazone HCl (Pioglitazone Hcl 15 Mg Tablet) 15 mg PO DAILY [facility] Last Admin: 02/28/23 10:40 Dose: Not Given Documented By: EDUARDO Non-Admin Reason: Med Not Available Sodium Chloride (0.9 % Sodium Chloride Flush 3 Ml Syringe) 3 ml IVFLUSH QSHIFT [facility] Last Admin: 02/28/23 08:10 Dose: 3 ml Documented By: EDUARDO Trazodone HCl (Trazodone Hcl 50 Mg Tablet) 150 mg PO BEDTIME [facility] Last Admin: 02/28/23 03:01 Dose: 150 mg Documented By: KENNEDY Verapamil HCl (Verapamil Hcl Sr 180 Mg Tablet.Er) 180 mg PO DAILY [facility]; Protocol Last Admin: 02/28/23 08:10 Dose: 180 mg Documented By: EDUARDO Vitamin D (Cholecalciferol (Vitamin D3) 25 Mcg Tablet) 50 mcg PO DAILY [facility] Last Admin: 02/28/23 08:11 Dose: 50 mcg Documented By: EDUARDO Labs 02/28/23 06:09 02/28/23 06:09 Labs: Laboratory Results - last 24 hr 02/27/23 02/27/23 02/27/23 20:37 20:49 21:52 MCV 83.5 MCH 27.9 MCHC 33.4 RDW 13.2 Plt Count 260 MPV 9.6 Immature Gran % (Auto) 0.4 Neut % (Auto) 80.1 H Lymph % (Auto) 11.3 L Mcmullen % (Auto) 6.7 Eos % (Auto) 1.1 Baso % (Auto) 0.4 Lymph # (Auto) 2.1 Mcmullen # (Auto) 1.2 Eos # (Auto) 0.2 Baso # (Auto) 0.1 Abs Immat Gran (auto) 0.07 H Absolute Neuts (auto) 14.8 H Absolute Nucleated RBC 0.000 Nucleated RBC % (auto) 0.0 Anion Gap 16 Estim Creat Clear Calc 55.3 Estimated GFR 50 POC Glucose Random Glucose 290 H Lactic Acid 1.5 Calcium 9.1 Magnesium Total Bilirubin 0.5 AST 18 ALT 17 Alkaline Phosphatase 112 Total Protein 7.4 Albumin 3.8 Lipase 23 Urine Color Yellow Urine Appearance Clear Urine pH 6.5 Ur Specific [place] 1.015 Urine Protein 30 (1+) H Urine Glucose (UA) >=1000 H Urine Ketones Negative Urine Blood Trace H Urine Nitrite Negative Ur Leukocyte Esterase Negative Urine RBC 0-2 Urine WBC 0-5 Ur Squamous Epith Cells 3-5 Urine Bacteria Trace Hyaline Casts 0-2 02/28/23 02/28/23 02/28/23 01:12 06:09 07:31 MCV 83.7 MCH 27.8 MCHC 33.2 RDW 13.0 Plt Count 234 MPV 9.7 Immature Gran % (Auto) Neut % (Auto) Lymph % (Auto) [place] % (Auto) Eos % (Auto) Baso % (Auto) Lymph # (Auto) [place]mullen # (Auto) Eos # (Auto) Baso # (Auto) Abs Immat Gran (auto) Absolute Neuts (auto) Absolute Nucleated RBC 0.000 Nucleated RBC % (auto) 0.0 Anion Gap 12 Estim Creat Clear Calc 76.5 Estimated GFR > 60 POC Glucose 180 H 207 H Random Glucose 250 H Lactic Acid Calcium 8.0 L D Magnesium 1.9 Total Bilirubin AST ALT Alkaline Phosphatase Total Protein Albumin Lipase Urine Color Urine Appearance Urine pH Ur Specific [place] Urine Protein Urine Glucose (UA) Urine Ketones Urine Blood Urine Nitrite Ur Leukocyte Esterase Urine RBC Urine WBC Ur Squamous Epith Cells Urine Bacteria Hyaline Casts 02/28/23 11:05 MCV MCH MCHC RDW Plt Count MPV Immature Gran % (Auto) Neut % (Auto) Lymph % (Auto) [place] % (Auto) Eos % (Auto) Baso % (Auto) Lymph # (Auto) Mcmullen # (Auto) Eos # (Auto) Baso # (Auto) Abs Immat Gran (auto) Absolute Neuts (auto) Absolute Nucleated RBC Nucleated RBC % (auto) Anion Gap Estim Creat Clear Calc Estimated GFR POC Glucose 211 H Random Glucose Lactic Acid Calcium Magnesium Total Bilirubin AST ALT Alkaline Phosphatase Total Protein Albumin Lipase Urine Color Urine Appearance Urine pH Ur Specific [place] Urine Protein Urine Glucose (UA) Urine Ketones Urine Blood Urine Nitrite Ur Leukocyte Esterase Urine RBC Urine WBC Ur Squamous Epith Cells Urine Bacteria Hyaline Casts Assessment and Plan (1) Gastroenteritis due to food toxin: Status: Acute Plan 67 year old obese (BMI 33.8) female with multiple medical problems including T2DM (on Insulin), hypothyroidism, COPD, hypertension, hyperlipidemia, vitamin D deficiency, hyperparathyroidism here with 1. Gastroenteritis - stool studies start analgesics and anti emetics - clear liquid diet and IV fluids,added ceftriaxone/flagyl(01/29/23). 2. Hyperglycemia- 2/2 poorly controlled T2DM - will give half dose of Lantus tonight and resume 38 units at bedtime tomorrow hold Metformin, Pioglitazone and Jardiance SSI correction scale and monitor blood sugars 3. Hypertension - poorly uncontrolled with BP 196/84 mmHg resume Verapamil and Metoprolol and hold HCTZ 4. Hypothyroidism- resume Levothyroxine 5. Obesity - BMI 33.8 kg/m2 - encourage weight loss ongoing inpatient need :Gastroenteritis- unable to tolerate diet , need iv antibiotics ,bowel rest , antiemtics ,mniter fs hyperglycemia and blood pressure for uncontrolled htn . Quality Stroke Does the patient have a stroke diagnosis?: No VTE Prior VTE?: No VTE Risk Level:: Medical - moderate - high VTE Device Contraindication: N/A - Device Ordered VTE Drug Contraindication: Treatment Not Indicated
--- NOTE | 2023-02-28 14:09 | MHC.CM.PN ---
PATIENT LIVES WITH SIGNIFICANT OTHER/HCP HCP ON FILE AND VERIFIED. COPY PRINTED OUT AND PLACED IN CHART. SHE USES A CANE AND A WALKER AND HAS 17 HOUR OF [employer] PER WEEK (-) NO VNA SERVICES IN THE HOME. PLAN IS TO RETURN HOME WITH RESUMPTION OF [employer]. IMM 02/28 IN CHART
[2023-02-28] MEDS: Acetaminophen 325 MG TABLET 650 MG PO (15:51)
[2023-02-28 16:29] LABS: Glucose, Whole Blood 145 mg/dL (60-115)
[2023-02-28] MEDS: cefTRIAXone sodium 1 GM in 0.9 % Sodium Chloride 50 ML IV (19:49)
[2023-02-28] MEDS: cloNIDine HCL 0.2 MG TABLET PO (19:50)
[2023-02-28] MEDS: Magnesium Hydrox/Alum Hydrox 30 ML ORAL.SUSP PO (19:51)
[2023-02-28 20:12] LABS: Glucose, Whole Blood 172 mg/dL (60-115)
--- NOTE | 2023-02-28 22:47 | PC.NURSE ---
Pt in clear liquid diet, verbalized low tolerance because of intermittent nausea, CLE=[id number], DR. Martinez was updated, Dr. Martinez ordered Lantus 20 units instead of 38 units scheduled, Lispro coverage was also held per Dr. Martinez.
[2023-03-01] MEDS: metroNIDAZOLE/NS 500 MG/100 ML PIGGYBACK 100 MG IV ×3 (00:01→16:50)
[2023-03-01] MEDS: HYDROmorphone HCl 0.5 MG/0.5 ML SYRINGE IVPUSH ×4 (00:02→21:30)
[2023-03-01 04:00] VITALS: BP 104/55; PULSE 68; RESP 18; TEMP 36.4; O2SAT 94
[2023-03-01] MEDS: Levothyroxine Sodium 75 MCG TABLET PO (05:56)
[2023-03-01 07:14] VITALS: BP 113/56; PULSE 66; RESP 16; TEMP 36.3; O2SAT 96
[2023-03-01 07:45] LABS: Glucose, Whole Blood 106 mg/dL (60-115)
[2023-03-01] MEDS: Fluticasone/Umeclidinium/Vilanterol 200/62.5/25 BLST.W.DEV 1 PUFF INHALE (08:04)
[2023-03-01 08:06] VITALS: PULSE 76; RESP 16; O2SAT 96
[2023-03-01] MEDS: VerapamiL HCL SR 180 MG TABLET.ER PO (08:37)
[2023-03-01] MEDS: Aspirin Enteric Coated 81 MG TABLET.DR PO (08:38)
[2023-03-01] MEDS: Cholecalciferol (Vitamin D3) 25 MCG TABLET 50 MCG PO (08:38)
[2023-03-01] MEDS: Cyanocobalamin (Vitamin B-12) 1,000 MCG TABLET 1000 MCG PO (08:38)
[2023-03-01] MEDS: Metoprolol Succinate ER 100 MG TAB.ER.24H 200 MG PO (08:38)
[2023-03-01] MEDS: Empagliflozin 25 MG TABLET PO (08:38)
[2023-03-01] MEDS: 0.9 % Sodium Chloride Flush 3 ML SYRINGE IVFLUSH ×2 (08:40→14:29)
[2023-03-01] MEDS: ondansetron HCL 4 MG/2 ML VIAL IVPUSH (08:40)
--- NOTE | 2023-03-01 09:58 | P.PNIM_ITS ---
Subjective Subjective Date of Service: 03/01/23 Interval History: gasteroentritis Review of Systems has abd pain similar to yesterday,unable to take po yet denies any fevers or chills Physical Exam 2 Vital Signs: Vital Signs: Last Vital Signs Temp 97.3 F 03/01/23 07:14 Pulse 76 03/01/23 08:06 Resp 16 03/01/23 08:06 BP 113/56 L 03/01/23 07:14 Pulse Ox 96 03/01/23 07:14 O2 Del Method Room Air 03/01/23 07:14 BMI result Body Mass Index 35.5 Appearance: Alert.? Oriented X3.?abd pain cvs: rrr, [id number]. res: clear to auscultation ,no rhonchii or wheezing abd: no rebound or guarding ,llq pain, bs present. ext pulses present , no cyanosis . neuro: axo3 , nonfocal. Objective Data Active Medications Acetaminophen (Acetaminophen 325 Mg Tablet) 650 mg PO Q6H PRN PRN Reason: Pain, Mild (Pain Scale 1-3) Last Admin: 02/28/23 15:51 Dose: 650 mg Documented By: EDUARDO Al Hydroxide/Mg Hydroxide (Magnesium Hydrox/Alum Hydrox 30 Ml Oral.Susp) 30 ml PO Q4H PRN PRN Reason: Heartburn/Nausea Last Admin: 02/28/23 19:51 Dose: 30 ml Documented By: AMADOU Albuterol Sulfate (Albuterol Sulfate (0.042%) 1.25 Mg/3 Ml Vial.Neb) 1.25 mg INHALE Q4H PRN PRN Reason: wheezing Aspirin (Aspirin Enteric Coated 81 Mg Tablet.) 81 mg PO DAILY [facility] Last Admin: 03/01/23 08:38 Dose: 81 mg Documented By: RUCHI Clonidine HCl (Clonidine Hcl 0.2 Mg Tablet) 0.2 mg PO BEDTIME [facility]; Protocol Last Admin: 02/28/23 19:50 Dose: 0.2 mg Documented By: AMADOU Comments: BP 132/60 H63 Cyanocobalamin (Cyanocobalamin (Vitamin B-12) 1,000 Mcg Tablet) 1,000 mcg PO DAILY [facility] Last Admin: 03/01/23 08:38 Dose: 1,000 mcg Documented By: RUCHI Dextrose (Dextrose 50 % 25 Gm/50 Ml Syringe) 25 gm IVPUSH Q15M PRN; Protocol PRN Reason: per Hypoglycemia Standing Ord. Empagliflozin (Empagliflozin 25 Mg Tablet) 25 mg PO DAILY [facility] Last Admin: 03/01/23 08:38 Dose: 25 mg Documented By: RUCHI Fluticasone/Umeclidinium/Vilanterol (Fluticasone/Umeclidinium/Vilanterol 200/62.5/25 Blst.W.Dev) 1 puff INHALE RDAILY [facility] Last Admin: 03/01/23 08:04 Dose: 1 puff Documented By: CRIS Gabapentin (Gabapentin 300 Mg Capsule) 300 mg PO BEDTIME [facility] Last Admin: 02/28/23 19:51 Dose: 300 mg Documented By: AMADOU Glucose (Glucose Gel 15 Gm Gel..Gram.) 15 gm PO Q15M PRN; Protocol PRN Reason: per Hypoglycemia Standing Ord. Hydromorphone HCl (Hydromorphone Hcl 0.5 Mg/0.5 Ml Syringe) 0.5 mg IVPUSH Q12H [facility]; Protocol Last Admin: 03/01/23 08:35 Dose: 0.5 mg Documented By: RUCHI Hydromorphone HCl (Hydromorphone Hcl 0.5 Mg/0.5 Ml Syringe) 1 mg IVPUSH Q4H PRN; Protocol PRN Reason: Pain, Severe (Pain Scale 7-10) Hydroxyzine HCl (Hydroxyzine Hcl 50 Mg Tablet) 50 mg PO Q8H PRN PRN Reason: anxiety Last Admin: 02/28/23 11:41 Dose: 50 mg Documented By: EDUARDO Ceftriaxone Sodium 1 gm/ (Sodium Chloride) 50 mls @ 100 mls/hr IV Q24H [facility] Last Infusion: 02/28/23 20:48 Dose: Infused Documented By: AMADOU Metronidazole (Flagyl) 500 mg in 100 mls @ 100 mls/hr IV Q8H [facility] Last Admin: 03/01/23 08:37 Dose: 100 mls/hr Documented By: RUCHI Lactated Ringer's (Lr) 1,000 mls @ 100 mls/hr IVCONT .Q10H [facility] Insulin Glargine (Insulin Glargine,Hum.Rec.Anlog 100 Unit/Ml 10 Ml Vial) 38 unit SUBCUT BEDTIME [facility] Last Admin: 02/28/23 20:50 Dose: Not Given Documented By: AMADOU Non-Admin Reason: by Dr. Martinez Insulin Human Lispro (Insulin Lispro 100 Unit/Ml 3 Ml Vial) 0 unit SUBCUT QIDACHS [facility]; Protocol Last Admin: 03/01/23 08:26 Dose: Not Given Documented By: RUCHI Non-Admin Reason: No Insulin Coverage Levothyroxine Sodium (Levothyroxine Sodium 75 Mcg Tablet) 75 mcg PO DAILY@0600 [facility] Last Admin: 03/01/23 05:56 Dose: 75 mcg Documented By: DANA Melatonin (Melatonin 3 Mg Tablet) 6 mg PO BEDTIME PRN PRN Reason: Insomnia Metoprolol Succinate (Metoprolol Succinate Er 100 Mg Tab.Er.24h) 200 mg PO DAILY [facility]; Protocol Last Admin: 03/01/23 08:38 Dose: 200 mg Documented By: RUCHI Ondansetron HCl (Ondansetron Hcl 4 Mg/2 Ml Vial) 4 mg IVPUSH Q8H PRN PRN Reason: Nausea and Vomiting Last Admin: 03/01/23 08:40 Dose: 4 mg Documented By: RUCHI Pioglitazone HCl (Pioglitazone Hcl 15 Mg Tablet) 15 mg PO DAILY [facility] Last Admin: 03/01/23 08:38 Dose: 15 mg Documented By: RUCHI Sodium Chloride (0.9 % Sodium Chloride Flush 3 Ml Syringe) [facility] Last Admin: 03/01/23 08:40 Dose: 3 ml Documented By: RUCHI Trazodone HCl (Trazodone Hcl 50 Mg Tablet) 150 mg PO BEDTIME [facility] Last Admin: 02/28/23 19:51 Dose: 150 mg Documented By: AMADOU Verapamil HCl (Verapamil Hcl Sr 180 Mg Tablet.Er) 180 mg PO DAILY [facility]; Protocol Last Admin: 03/01/23 08:37 Dose: 180 mg Documented By: RUCHI Vitamin D (Cholecalciferol (Vitamin D3) 25 Mcg Tablet) 50 mcg PO DAILY [facility] Last Admin: 03/01/23 08:38 Dose: 50 mcg Documented By: RUCHI Labs 02/28/23 06:09 02/28/23 06:09 Labs: Laboratory Results - last 24 hr 02/28/23 02/28/23 02/28/23 11:05 16:25 19:51 POC Glucose 211 H 145 H 172 H 03/01/23 07:20 POC Glucose 106 Assessment and Plan (1) Gastroenteritis due to food toxin: Status: Acute Plan 67 year old obese (BMI 33.8) female with multiple medical problems including T2DM (on Insulin), hypothyroidism, COPD, hypertension, hyperlipidemia, vitamin D deficiency, hyperparathyroidism here with 1. Gastroenteritis - stool studies start analgesics and anti emetics - clear liquid diet and IV fluids,added ceftriaxone/flagyl(01/29/23). 2. Hyperglycemia- 2/2 poorly controlled T2DM - will give half dose of Lantus tonight and resume 38 units at bedtime tomorrow hold Metformin, Pioglitazone and Jardiance SSI correction scale and monitor blood sugars 3. Hypertension - poorly uncontrolled with BP 196/84 mmHg resume Verapamil and Metoprolol and hold HCTZ 4. Hypothyroidism- resume Levothyroxine 5. Obesity - BMI 33.8 kg/m2 - encourage weight loss ongoing inpatient need :Gastroenteritis- unable to tolerate diet , need iv antibiotics ,bowel rest , antiemtics ,mniter fs hyperglycemia and blood pressure for uncontrolled htn . Quality Stroke Does the patient have a stroke diagnosis?: No VTE Prior VTE?: No VTE Risk Level:: Medical - moderate - high VTE Device Contraindication: N/A - Device Ordered VTE Drug Contraindication: Treatment Not Indicated
[2023-03-01] MEDS: HYDROmorphone HCl 0.5 MG/0.5 ML SYRINGE 1 MG IVPUSH ×3 (10:36→18:09)
[2023-03-01] MEDS: Lactated Ringers 1,000 ML 100 ML IVCONT (10:40)
[2023-03-01 10:50] LABS: Hematocrit 36.7 % (37.0-47.0); Hemoglobin 12.2 g/dl (12.0-16.0); Mean Corpuscular HGB Conc 33.2 g/dl (31.0-35.0); Mean Corpuscular Hemoglobin 27.7 pg (27.0-33.0); Mean Corpuscular Volume 83.2 fL (80.0-98.0); Mean Platelet Volume 9.6 fL (9.4-12.3); Platelet Count 225 X10*3/uL (160-400); Red Blood Count 4.41 X10*6/uL (4.20-5.50); White Blood Count 16.7 X10*3/uL (4.8-10.8)
[2023-03-01 11:12] LABS: Glucose, Whole Blood 135 mg/dL (60-115)
[2023-03-01 15:31] VITALS: BP 117/57; PULSE 64; RESP 16; TEMP 36.5; O2SAT 90
[2023-03-01 16:12] LABS: Glucose, Whole Blood 121 mg/dL (60-115)
[2023-03-01 20:00] VITALS: BP 120/61; PULSE 65; RESP 17; TEMP 36.2; O2SAT 92
[2023-03-01 20:43] LABS: Glucose, Whole Blood 89 mg/dL (60-115)
[2023-03-01] MEDS: cloNIDine HCL 0.2 MG TABLET PO (21:30)
[2023-03-01] MEDS: Gabapentin 300 MG CAPSULE PO (21:30)
[2023-03-01] MEDS: traZODone HCL 50 MG TABLET 150 MG PO (21:30)
[2023-03-01] MEDS: cefTRIAXone sodium 1 GM in 0.9 % Sodium Chloride 50 ML IV (21:51)
[2023-03-01 23:59] LABS: Glucose, Whole Blood 99 mg/dL (60-115)
--- NOTE | 2023-03-02 00:22 | PC.NURSE ---
03/01/232029 poc-89 lantus insulin held per .
--- NOTE | 2023-03-02 00:23 | PC.NURSE ---
0000 poc rechecked 99.
[2023-03-02] MEDS: metroNIDAZOLE/NS 500 MG/100 ML PIGGYBACK 100 MG IV ×3 (01:05→18:11)
[2023-03-02] MEDS: Lactated Ringers 1,000 ML 100 ML IVCONT (01:05)
[2023-03-02] MEDS: HYDROmorphone HCl 0.5 MG/0.5 ML SYRINGE 1 MG IVPUSH ×4 (01:28→18:27)
[2023-03-02 02:53] VITALS: BP 117/58; PULSE 73; RESP 17; TEMP 36.2; O2SAT 95
[2023-03-02] MEDS: Levothyroxine Sodium 75 MCG TABLET PO (06:19)
[2023-03-02 07:37] LABS: Glucose, Whole Blood 67 mg/dL (60-115)
[2023-03-02 07:39] VITALS: BP 128/62; PULSE 71; RESP 17; TEMP 36.6; O2SAT 96
[2023-03-02] MEDS: Fluticasone/Umeclidinium/Vilanterol 200/62.5/25 BLST.W.DEV 1 PUFF INHALE (08:15)
[2023-03-02 08:17] VITALS: PULSE 68; RESP 16; O2SAT 95
[2023-03-02] MEDS: HYDROmorphone HCl 0.5 MG/0.5 ML SYRINGE IVPUSH ×2 (08:21→21:18)
[2023-03-02] MEDS: Cyanocobalamin (Vitamin B-12) 1,000 MCG TABLET 1000 MCG PO (08:22)
[2023-03-02] MEDS: Cholecalciferol (Vitamin D3) 25 MCG TABLET 50 MCG PO (08:22)
[2023-03-02] MEDS: Metoprolol Succinate ER 100 MG TAB.ER.24H 200 MG PO (08:22)
[2023-03-02] MEDS: VerapamiL HCL SR 180 MG TABLET.ER PO (08:22)
[2023-03-02] MEDS: Empagliflozin 25 MG TABLET PO (08:22)
[2023-03-02] MEDS: Aspirin Enteric Coated 81 MG TABLET.DR PO (08:22)
[2023-03-02 08:51] LABS: Glucose, Whole Blood 101 mg/dL (60-115)
[2023-03-02] MEDS: Dextrose 5 % and 0.9 % NaCl 1,000 ML 80 ML IVCONT (11:03)
[2023-03-02] MEDS: HYDROmorphone HCl 1 MG/ML SYRINGE IVPUSH (11:12)
[2023-03-02 11:29] LABS: Glucose, Whole Blood 84 mg/dL (60-115)
--- NOTE | 2023-03-02 11:47 | MHC.CM.PN ---
per rounds pt needs to be rescanned ..no dc date at this time
--- NOTE | 2023-03-02 13:21 | HO.PM.IMPN ---
Subjective Subjective Date of Service: 03/02/23 Interval History: LLq pain Review of Systems feels nauseated ,abd pain similar no fever or chills Physical Exam Vital Signs: Vital Signs: Last Vital Signs Temp 97.8 F 03/02/23 07:39 Pulse 68 03/02/23 08:17 Resp 16 03/02/23 08:17 BP 128/62 03/02/23 07:39 Pulse Ox 96 03/02/23 07:39 O2 Del Method Room Air 03/02/23 07:39 BMI result Body Mass Index 35.5 Appearance: Alert.? Oriented X3.?abd pain cvs: rrr, [id number]. res: clear to auscultation ,no rhonchii or wheezing abd: no rebound or guarding ,llq pain, bs present. ext pulses present , no cyanosis . neuro: axo3 , nonfocal. Objective Data Active Medications Acetaminophen (Acetaminophen 325 Mg Tablet) 650 mg PO Q6H PRN PRN Reason: Pain, Mild (Pain Scale 1-3) Last Admin: 02/28/23 15:51 Dose: 650 mg Documented By: EDUARDO Al Hydroxide/Mg Hydroxide (Magnesium Hydrox/Alum Hydrox 30 Ml Oral.Susp) 30 ml PO Q4H PRN PRN Reason: Heartburn/Nausea Last Admin: 02/28/23 19:51 Dose: 30 ml Documented By: AMADOU Albuterol Sulfate (Albuterol Sulfate (0.042%) 1.25 Mg/3 Ml Vial.Neb) 1.25 mg INHALE Q4H PRN PRN Reason: wheezing Aspirin (Aspirin Enteric Coated 81 Mg Tablet.) 81 mg PO DAILY [facility] Last Admin: 03/02/23 08:22 Dose: 81 mg Documented By: BENITA Clonidine HCl (Clonidine Hcl 0.2 Mg Tablet) 0.2 mg PO BEDTIME [facility]; Protocol Last Admin: 03/01/23 21:30 Dose: 0.2 mg Documented By: SHANTELLE Cyanocobalamin (Cyanocobalamin (Vitamin B-12) 1,000 Mcg Tablet) 1,000 mcg PO DAILY [facility] Last Admin: 03/02/23 08:22 Dose: 1,000 mcg Documented By: BENITA Dextrose (Dextrose 50 % 25 Gm/50 Ml Syringe) 25 gm IVPUSH Q15M PRN; Protocol PRN Reason: per Hypoglycemia Standing Ord. Empagliflozin (Empagliflozin 25 Mg Tablet) 25 mg PO DAILY [facility] Last Admin: 03/02/23 08:22 Dose: 25 mg Documented By: BENITA Fluticasone/Umeclidinium/Vilanterol (Fluticasone/Umeclidinium/Vilanterol 200/62.5/25 Blst.W.Dev) 1 puff INHALE RDAILY [facility] Last Admin: 03/02/23 08:15 Dose: 1 puff Documented By: CRIS Gabapentin (Gabapentin 300 Mg Capsule) 300 mg PO BEDTIME [facility] Last Admin: 03/01/23 21:30 Dose: 300 mg Documented By: SHANTELLE Glucose (Glucose Gel 15 Gm Gel..Gram.) 15 gm PO Q15M PRN; Protocol PRN Reason: per Hypoglycemia Standing Ord. Hydromorphone HCl (Hydromorphone Hcl 0.5 Mg/0.5 Ml Syringe) 0.5 mg IVPUSH Q12H [facility]; Protocol Last Admin: 03/02/23 08:21 Dose: 0.5 mg Documented By: BENITA Hydromorphone HCl (Hydromorphone Hcl 0.5 Mg/0.5 Ml Syringe) 1 mg IVPUSH Q3H PRN; Protocol PRN Reason: Pain, Severe (Pain Scale 7-10) Hydroxyzine HCl (Hydroxyzine Hcl 50 Mg Tablet) 50 mg PO Q8H PRN PRN Reason: anxiety Last Admin: 02/28/23 11:41 Dose: 50 mg Documented By: EDUARDO Ceftriaxone Sodium 1 gm/ (Sodium Chloride) 50 mls @ 100 mls/hr IV Q24H [facility] Last Infusion: 03/01/23 22:25 Dose: Infused Documented By: SHANTELLE Metronidazole (Flagyl) 500 mg in 100 mls @ 100 mls/hr IV Q8H [facility] Last Infusion: 03/02/23 09:41 Dose: Infused Documented By: BENITA Lactated Ringer's (Lr) 1,000 mls @ 100 mls/hr IVCONT .Q10H [facility] Last Infusion: 03/02/23 11:16 Dose: Infused Documented By: DAVE Dextrose/Sodium Chloride (D5ns) 1,000 mls @ 80 mls/hr IVCONT .[id number] [facility] Last Admin: 03/02/23 11:03 Dose: 80 mls/hr Documented By: DAVE Insulin Glargine (Insulin Glargine,Hum.Rec.Anlog 100 Unit/Ml 10 Ml Vial) 38 unit SUBCUT BEDTIME [facility] Last Admin: 03/01/23 22:39 Dose: Not Given Documented By: SHANTELLE Non-Admin Reason: held per dr garcia Insulin Human Lispro (Insulin Lispro 100 Unit/Ml 3 Ml Vial) 0 unit SUBCUT QIDACHS [facility]; Protocol Last Admin: 03/02/23 11:36 Dose: Not Given Documented By: DAVE Non-Admin Reason: No Insulin Coverage Levothyroxine Sodium (Levothyroxine Sodium 75 Mcg Tablet) 75 mcg PO DAILY@0600 [facility] Last Admin: 03/02/23 06:19 Dose: 75 mcg Documented By: SHANTELLE Melatonin (Melatonin 3 Mg Tablet) 6 mg PO BEDTIME PRN PRN Reason: Insomnia Metoprolol Succinate (Metoprolol Succinate Er 100 Mg Tab.Er.24h) 200 mg PO DAILY [facility]; Protocol Last Admin: 03/02/23 08:22 Dose: 200 mg Documented By: BENITA Ondansetron HCl (Ondansetron Hcl 4 Mg/2 Ml Vial) 4 mg IVPUSH Q8H PRN PRN Reason: Nausea and Vomiting Last Admin: 03/01/23 08:40 Dose: 4 mg Documented By: RUCHI Pioglitazone HCl (Pioglitazone Hcl 15 Mg Tablet) 15 mg PO DAILY [facility] Last Admin: 03/02/23 08:22 Dose: 15 mg Documented By: BENITA Sodium Chloride (0.9 % Sodium Chloride Flush 3 Ml Syringe) 3 ml IVFLUSH QSHIFT [facility] Last Admin: 03/02/23 07:16 Dose: Not Given Documented By: BENITA Non-Admin Reason: IV Running Trazodone HCl (Trazodone Hcl 50 Mg Tablet) 150 mg PO BEDTIME [facility] Last Admin: 03/01/23 21:30 Dose: 150 mg Documented By: SHANTELLE Verapamil HCl (Verapamil Hcl Sr 180 Mg Tablet.Er) 180 mg PO DAILY [facility]; Protocol Last Admin: 03/02/23 08:22 Dose: 180 mg Documented By: BENITA Vitamin D (Cholecalciferol (Vitamin D3) 25 Mcg Tablet) 50 mcg PO DAILY [facility] Last Admin: 03/02/23 08:22 Dose: 50 mcg Documented By: BENITA Labs 03/01/23 10:43 02/28/23 06:09 Labs: Laboratory Results - last 24 hr 03/01/23 03/01/23 03/01/23 16:06 20:35 23:54 POC Glucose 121 H 89 99 03/02/23 03/02/23 03/02/23 07:19 08:48 11:24 POC Glucose 67 101 84 Assessment and Plan (1) Colitis: Status: Acute Plan 67 year old obese (BMI 33.8) female with multiple medical problems including T2DM (on Insulin), hypothyroidism, COPD, hypertension, hyperlipidemia, vitamin D deficiency, hyperparathyroidism here with 1. Gastroenteritis stool studies,start analgesics and anti emetics clear liquid diet and IV fluids,added ceftriaxone/flagyl(01/29/23),iv dilaudid uptitrated. added ct abd with po contrast Gi eval 2. Hyperglycemia- 2/2 poorly controlled T2DM will give half dose of Lantus tonight and resume 38 units at bedtime tomorrow hold Metformin, Pioglitazone and Jardiance SSI correction scale and monitor blood sugars 3. Hypertension - poorly uncontrolled with BP 196/84 mmHg resume Verapamil and Metoprolol and hold HCTZ 4. Hypothyroidism- resume Levothyroxine 5. Obesity- BMI 33.8 kg/m2 - encourage weight loss ongoing inpatient need :Gastroenteritis- unable to tolerate diet , need iv antibiotics ,iv dilaudid,bowel rest , antiemtics ,mniter fs hyperglycemia and blood pressure for uncontrolled htn . Quality Stroke Does the patient have a stroke diagnosis?: No VTE Prior VTE?: No VTE Risk Level:: Medical - moderate - high VTE Device Contraindication: N/A - Device Ordered VTE Drug Contraindication: Treatment Not Indicated
[2023-03-02 16:00] VITALS: BP 134/64; PULSE 65; RESP 18; TEMP 36.1; O2SAT 95
[2023-03-02 16:53] LABS: Glucose, Whole Blood 81 mg/dL (60-115)
[2023-03-02] MEDS: Barium Sulfate Oral (Berry) 450 ML ORAL.SUSP 900 ML PO (16:55)
--- NOTE | 2023-03-02 19:38 | P.CNGI_ITS ---
History of Present Illness Data of Consult Service Date: 03/02/23 Requesting physician: Pancho Lara Primary Care Provider: Breanna Zamudio NP HPI Reason for consult: colitis 67 year old female with hx of T2DM (on Insulin), hypothyroidism, COPD, hypertension, hyperlipidemia, vitamin D deficiency, hyperparathyroidism and obesity who I am seeing for assessment for colitis Pt presented with gradually worsening left sided sharp 10/10 abdominal pain going all over the left side without any relieving or exacerbating factors> associated with bloody diarrhea, nausea and non bloody emesis with poor appetite. She recalls feeling sick after eating shrimp fried rice and chicken broccoli from a [employer] restaurant. She noted chills but no fever. no sick contacts, no recent abx or travel She feels pain is still present but nausea and diarrhea have improved. Initial CT with inflammation of bowel on left side and splenic flexure areas. Follow up CT with improvement in colitis. Colonoscopy 01/05 with severe diverticulosis and removal of x 1 small polyp. Review of Systems 2 Review of Systems: Constitutional : No Weight loss, No Fever, + Chills ENT/Mouth : No sore throat, No Rhinorrhea Eyes: No Swelling, No Redness Cardiovascular : No Chest Pain, No SOB, No Edema Respiratory : No Cough, No Sputum, No Wheezing Gastrointestinal : see HPI Genitourinary : NO Dysuria, No Urinary Frequency, No Hematuria, No Urgency Musculoskeletal : No joint pain, No Myalgias, No Joint Swelling Skin : No Skin Lesions, No rash Neuro : No Weakness, No Numbness, No Dizziness, No Headache Psych : No Anxiety/Panic, No Depression Heme/Lymph: No Bruising, No Lymphadenopathy Endocrine : No Polyuria, No Polydipsia All other systems reviewed and are negative. [facility] Past Medical History Medical History Cough due to SHANELLE inhibitor Eosinophilia Asthma HTN (hypertension) T2DM (type 2 diabetes mellitus) Erosive gastritis Leg edema, left Hyperparathyroidism Vitamin D deficiency Multinodular thyroid Thyroid nodule Skin lesion of chest wall Type 2 diabetes mellitus with diabetic polyneuropathy Fibromyalgia Depression with anxiety Cervical cancer Osteoarthritis of left knee Osteopenia GERD (gastroesophageal reflux disease) Diabetes mellitus with hyperglycemia Meir's disease Other specified acquired hypothyroidism Hyperlipidemia LDL goal <100 Essential hypertension Vitamin B12 deficiency Other obesity due to excess calories BMI 35.0-35.9,adult Family History Family History Father CVD (cardiovascular disease) Diabetes mellitus Stroke Mother Stroke Diabetes mellitus Breast cancer Hyperthyroidism Surgical History Surgical History History of cholecystectomy History of arthroplasty of right knee Hx of arthroscopy of left knee Hx of hysterectomy Hx of foot surgery History of bilateral carpal tunnel release Hx of bilateral oophorectomy History of esophagogastroduodenoscopy (EGD) Hx of colonoscopy Social History Social History Household Members: Spouse Housing: House Are you a primary intensive care ambulance paramedic to a significant other at home: No Do you presently have visiting nurse or other home services: No Alcohol intake: never Patient Tobacco Use Status: Never used Tobacco service: No 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al status: disabled 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 Allergies Allergy/AdvReac Type Severity Reaction Status Date / Time No Known Allergies Allergy Verified 02/24/23 15:28 [No Known Allergies*] Active Medications: Current Medications Acetaminophen (Acetaminophen 325 Mg Tablet) 650 mg PO Q6H PRN PRN Reason: Pain, Mild (Pain Scale 1-3) Last Admin: 02/28/23 15:51 Dose: 650 mg Al Hydroxide/Mg Hydroxide (Magnesium Hydrox/Alum Hydrox 30 Ml Oral.Susp) 30 ml PO Q4H PRN PRN Reason: Heartburn/Nausea Last Admin: 02/28/23 19:51 Dose: 30 ml Albuterol Sulfate (Albuterol Sulfate (0.042%) 1.25 Mg/3 Ml Vial.Neb) 1.25 mg INHALE Q4H PRN PRN Reason: wheezing Aspirin (Aspirin Enteric Coated 81 Mg Tablet.) 81 mg PO DAILY [facility] Last Admin: 03/02/23 08:22 Dose: 81 mg Clonidine HCl (Clonidine Hcl 0.2 Mg Tablet) 0.2 mg PO BEDTIME [facility]; Protocol Last Admin: 03/01/23 21:30 Dose: 0.2 mg Cyanocobalamin (Cyanocobalamin (Vitamin B-12) 1,000 Mcg Tablet) 1,000 mcg PO DAILY [facility] Last Admin: 03/02/23 08:22 Dose: 1,000 mcg Dextrose (Dextrose 50 % 25 Gm/50 Ml Syringe) 25 gm IVPUSH Q15M PRN; Protocol PRN Reason: per Hypoglycemia Standing Ord. Empagliflozin (Empagliflozin 25 Mg Tablet) 25 mg PO DAILY [facility] Last Admin: 03/02/23 08:22 Dose: 25 mg Fluticasone/Umeclidinium/Vilanterol (Fluticasone/Umeclidinium/Vilanterol 200/62.5/25 Blst.W.Dev) 1 puff INHALE RDAILY [facility] Last Admin: 03/02/23 08:15 Dose: 1 puff Gabapentin (Gabapentin 300 Mg Capsule) 300 mg PO BEDTIME [facility] Last Admin: 03/01/23 21:30 Dose: 300 mg Glucose (Glucose Gel 15 Gm Gel..Gram.) 15 gm PO Q15M PRN; Protocol PRN Reason: per Hypoglycemia Standing Ord. Hydromorphone HCl (Hydromorphone Hcl 0.5 Mg/0.5 Ml Syringe) 0.5 mg IVPUSH Q12H [facility]; Protocol Last Admin: 03/02/23 08:21 Dose: 0.5 mg Hydromorphone HCl (Hydromorphone Hcl 0.5 Mg/0.5 Ml Syringe) 1 mg IVPUSH Q3H PRN; Protocol PRN Reason: Pain, Severe (Pain Scale 7-10) Last Admin: 03/02/23 18:27 Dose: 1 mg Hydroxyzine HCl (Hydroxyzine Hcl 50 Mg Tablet) 50 mg PO Q8H PRN PRN Reason: anxiety Last Admin: 02/28/23 11:41 Dose: 50 mg Ceftriaxone Sodium 1 gm/ (Sodium Chloride) 50 mls @ 100 mls/hr IV Q24H [facility] Last Infusion: 03/01/23 22:25 Dose: Infused Metronidazole (Flagyl) 500 mg in 100 mls @ 100 mls/hr IV Q8H [facility] Last Infusion: 03/02/23 19:28 Dose: Infused Dextrose/Sodium Chloride (D5ns) 1,000 mls @ 80 mls/hr IVCONT .[id number] [facility] Last Admin: 03/02/23 11:03 Dose: 80 mls/hr Insulin Glargine (Insulin Glargine,Hum.Rec.Anlog 100 Unit/Ml 10 Ml Vial) 38 unit SUBCUT BEDTIME [facility] Last Admin: 03/01/23 22:39 Dose: Not Given Insulin Human Lispro (Insulin Lispro 100 Unit/Ml 3 Ml Vial) 0 unit SUBCUT QIDACHS [facility]; Protocol Last Admin: 03/02/23 16:41 Dose: Not Given Levothyroxine Sodium (Levothyroxine Sodium 75 Mcg Tablet) 75 mcg PO DAILY@0600 [facility] Last Admin: 03/02/23 06:19 Dose: 75 mcg Melatonin (Melatonin 3 Mg Tablet) 6 mg PO BEDTIME PRN PRN Reason: Insomnia Metoprolol Succinate (Metoprolol Succinate Er 100 Mg Tab.Er.24h) 200 mg PO DAILY [facility]; Protocol Last Admin: 03/02/23 08:22 Dose: 200 mg Ondansetron HCl (Ondansetron Hcl 4 Mg/2 Ml Vial) 4 mg IVPUSH Q8H PRN PRN Reason: Nausea and Vomiting Last Admin: 03/01/23 08:40 Dose: 4 mg Pioglitazone HCl (Pioglitazone Hcl 15 Mg Tablet) 15 mg PO DAILY [facility] Last Admin: 03/02/23 08:22 Dose: 15 mg Sodium Chloride (0.9 % Sodium Chloride Flush 3 Ml Syringe) [facility] Admin: 03/02/23 14:58 Dose: Not Given Trazodone HCl (Trazodone Hcl 50 Mg Tablet) 150 mg PO BEDTIME [facility] Last Admin: 03/01/23 21:30 Dose: 150 mg Verapamil HCl (Verapamil Hcl Sr 180 Mg Tablet.Er) 180 mg PO DAILY [facility]; Protocol Last Admin: 03/02/23 08:22 Dose: 180 mg Vitamin D (Cholecalciferol (Vitamin D3) 25 Mcg Tablet) 50 mcg PO DAILY [facility] Last Admin: 03/02/23 08:22 Dose: 50 mcg Home Medications Medication Instructions Recorded Confirmed Last Taken Type hydrochlorothiazide 50 mg tablet 50 mg PO DAILY 02/29/20 02/28/23 02/26/23 History blood sugar diagnostic #10 ea 03/19/20 02/28/23 02/26/23 History furosemide 20 mg tablet 20 mg PO DAILY 03/19/20 02/28/23 02/26/23 History hydroxyzine HCl 50 mg tablet 50 mg PO Q8H PRN anxiety 03/19/20 02/28/23 Unknown History lisinopril 40 mg tablet 40 mg PO DAILY 03/19/20 02/28/23 02/26/23 History tramadol 50 mg tablet 50 mg PO TID PRN Pain 03/19/20 02/28/23 Unknown History metoprolol succinate 200 mg 200 mg PO DAILY 07/09/20 02/28/23 02/26/23 History tablet,extended release 24 hr trazodone 150 mg tablet 300 mg PO BEDTIME 07/09/20 02/28/23 02/26/23 History lancets 33 gauge (IvelisseScoutuch Deldeja #100 ea 04/17/21 02/28/23 02/26/23 History Plus Lancet) verapamil 180 mg tablet,extended 180 mg PO DAILY 10/17/21 02/28/23 02/26/23 History release albuterol sulfate 0.63 mg/3 mL 1 amp inhalation Q4H PRN wheezing 03/24/22 02/28/23 Unknown History solution for nebulization aspirin 81 mg tablet,delayed 1 tab PO DAILY 03/24/22 02/28/23 02/26/23 History release levothyroxine 75 mcg tablet 75 mcg PO DAILY@0600 03/24/22 02/28/23 02/26/23 History multivitamin-ferrous 1 tab PO DAILY 03/24/22 02/28/23 02/26/23 History fumarate-folic acid 18 mg-400 mcg tablet (Certavite-Antioxidant) clonidine HCl 0.1 mg tablet 0.2 mg PO BEDTIME 02/28/23 02/28/23 02/26/23 History cyanocobalamin (vitamin B-12) 1,000 mcg PO DAILY 02/28/23 02/28/23 02/26/23 History 1,000 mcg sublingual tablet dexlansoprazole 60 mg 60 mg PO DAILY@0630 02/28/23 02/28/23 02/26/23 History capsule,biphase delayed release empagliflozin 25 mg tablet 25 mg PO DAILY 02/28/23 02/28/23 02/26/23 History (Jardiance) insulin glargine 100 unit/mL (3 38 unit subcut BEDTIME 02/28/23 02/28/23 02/26/23 History mL) subcutaneous pen (Lantus Solostar U-100 Insulin) pioglitazone 15 mg tablet 15 mg PO DAILY 02/28/23 02/28/23 02/26/23 History semaglutide 0.25 mg or 0.5 mg (2 0.5 mg subcut MO@0900 02/28/23 02/28/23 02/23/23 History mg/3 mL) subcutaneous pen injector (Ozempic) Physical Exam 2 Vital Signs: Vital Signs: Last Vital Signs Temp 97.0 F 03/02/23 16:00 Pulse 65 03/02/23 16:00 Resp 18 03/02/23 16:00 BP 134/64 03/02/23 16:00 Pulse Ox 95 03/02/23 16:00 O2 Del Method Room Air 03/02/23 16:00 BMI result Body Mass Index 35.5 EXAM: GENERAL: The patient is well developed and nontoxic. VITAL SIGNS:see workflow HEENT: Nonicteric sclerae, PERRLA, EOMI. Oropharynx clear. Moist mucous membranes. Conjunctivae appear well perfused. No thyroid mass. CHEST: Chest wall is nontender. HEART: Regular rate and rhythm without murmurs. LUNGS: Clear to auscultation bilaterally. ABDOMEN: Soft, positive bowel sounds, tender LUQ, no organomegaly.no flank tenderness SKIN: No rash, no excessive bruising, petechiae, or purpura. NEUROLOGIC: Cranial nerves II-XII intact without motor/sensory deficit. psych- nml affect Results Labs 03/01/23 10:43 02/28/23 06:[address] scan - abdomen: Attestation: I personally reviewed and interpreted this imaging study as follows: (thickening and stranding left sided colon around splenic flexure) Assessment and Plan (1) Gastroenteritis due to food toxin: Status: Acute (2) Colitis: Status: Acute Plan 1/ Colitis, likely infectious given temporal association with fast food ingestion, follow up CT with resolving colitis. Plan: 1/ complete abx course for 7d 2/ if has further diarrhea, check GI PCR panel and C diff 3/ allow diet as tolerated Procedures Date of Service Date of Service: 03/02/23
[2023-03-02 19:48] VITALS: BP 125/60; PULSE 69; RESP 16; TEMP 36.7; O2SAT 93
[2023-03-02] MEDS: traZODone HCL 50 MG TABLET 150 MG PO (21:19)
[2023-03-02] MEDS: Gabapentin 300 MG CAPSULE PO (21:19)
[2023-03-02] MEDS: cloNIDine HCL 0.2 MG TABLET PO (21:19)
[2023-03-02] MEDS: cefTRIAXone sodium 1 GM in 0.9 % Sodium Chloride 50 ML IV (21:19)
[2023-03-02 21:43] LABS: Glucose, Whole Blood 81 mg/dL (60-115)
--- NOTE | 2023-03-02 23:52 | PC.NURSE ---
03/02/232029 poc-81 lantus insulin held
[2023-03-03] VITALS (7 sets, daily range): BP systolic 111–184; BP diastolic 53–79; PULSE 66–79; RESP 16–18; TEMP 36.1–36.9; O2SAT 92–97
[2023-03-03] MEDS: metroNIDAZOLE/NS 500 MG/100 ML PIGGYBACK 100 MG IV ×3 (00:32→17:30)
[2023-03-03] MEDS: HYDROmorphone HCl 0.5 MG/0.5 ML SYRINGE 1 MG IVPUSH ×5 (03:26→22:53)
[2023-03-03] MEDS: Levothyroxine Sodium 75 MCG TABLET PO (05:39)
[2023-03-03] MEDS: Dextrose 5 % and 0.9 % NaCl 1,000 ML 80 ML IVCONT (05:40)
[2023-03-03] MEDS: Fluticasone/Umeclidinium/Vilanterol 200/62.5/25 BLST.W.DEV 1 PUFF INHALE (07:43)
[2023-03-03 07:45] LABS: Glucose, Whole Blood 100 mg/dL (60-115)
[2023-03-03] MEDS: Aspirin Enteric Coated 81 MG TABLET.DR PO (09:03)
[2023-03-03] MEDS: VerapamiL HCL SR 180 MG TABLET.ER PO (09:03)
[2023-03-03] MEDS: Lidocaine 4 % Patch ADH..PATCH 1 PATCH TRANSDERMA (09:03)
[2023-03-03] MEDS: Cholecalciferol (Vitamin D3) 25 MCG TABLET 50 MCG PO (09:03)
[2023-03-03] MEDS: Empagliflozin 25 MG TABLET PO (09:03)
[2023-03-03] MEDS: Cyanocobalamin (Vitamin B-12) 1,000 MCG TABLET 1000 MCG PO (09:03)
[2023-03-03] MEDS: Metoprolol Succinate ER 100 MG TAB.ER.24H 200 MG PO (09:03)
--- NOTE | 2023-03-03 11:11 | HO.PM.IMPN ---
Subjective Subjective Date of Service: 03/03/23 Interval History: abd pain Review of Systems seems similar abd pain-somewaht improving encourage for po inatke. Physical Exam Vital Signs: Vital Signs: Last Vital Signs Temp 97.4 F 03/03/23 07:48 Pulse 67 03/03/23 07:48 Resp 16 03/03/23 07:48 BP 138/60 03/03/23 07:48 Pulse Ox 97 03/03/23 07:48 O2 Del Method Room Air 03/03/23 07:48 BMI result Body Mass Index 35.5 Appearance: Alert.? Oriented X3.?abd pain cvs: rrr, [id number]. res: clear to auscultation ,no rhonchii or wheezing abd: no rebound or guarding ,llq pain, bs present. ext pulses present , no cyanosis . neuro: axo3 , nonfocal. Objective Data Active Medications Acetaminophen (Acetaminophen 325 Mg Tablet) 650 mg PO Q6H PRN PRN Reason: Pain, Mild (Pain Scale 1-3) Last Admin: 02/28/23 15:51 Dose: 650 mg Documented By: EDUARDO Al Hydroxide/Mg Hydroxide (Magnesium Hydrox/Alum Hydrox 30 Ml Oral.Susp) 30 ml PO Q4H PRN PRN Reason: Heartburn/Nausea Last Admin: 02/28/23 19:51 Dose: 30 ml Documented By: AMADOU Albuterol Sulfate (Albuterol Sulfate (0.042%) 1.25 Mg/3 Ml Vial.Neb) 1.25 mg INHALE Q4H PRN PRN Reason: wheezing Aspirin (Aspirin Enteric Coated 81 Mg Tablet.) 81 mg PO DAILY [facility] Last Admin: 03/03/23 09:03 Dose: 81 mg Documented By: BENITA Clonidine HCl (Clonidine Hcl 0.2 Mg Tablet) 0.2 mg PO BEDTIME [facility]; Protocol Last Admin: 03/02/23 21:19 Dose: 0.2 mg Documented By: SHANTELLE Cyanocobalamin (Cyanocobalamin (Vitamin B-12) 1,000 Mcg Tablet) 1,000 mcg PO DAILY [facility] Last Admin: 03/03/23 09:03 Dose: 1,000 mcg Documented By: BENITA Dextrose (Dextrose 50 % 25 Gm/50 Ml Syringe) 25 gm IVPUSH Q15M PRN; Protocol PRN Reason: per Hypoglycemia Standing Ord. Empagliflozin (Empagliflozin 25 Mg Tablet) 25 mg PO DAILY [facility] Last Admin: 03/03/23 09:03 Dose: 25 mg Documented By: BENITA Fluticasone/Umeclidinium/Vilanterol (Fluticasone/Umeclidinium/Vilanterol 200/62.5/25 Blst.W.Dev) 1 puff INHALE RDAILY [facility] Last Admin: 03/03/23 07:43 Dose: 1 puff Documented By: ANITA Gabapentin (Gabapentin 300 Mg Capsule) 300 mg PO BEDTIME [facility] Last Admin: 03/02/23 21:19 Dose: 300 mg Documented By: SHANTELLE Glucose (Glucose Gel 15 Gm Gel..Gram.) 15 gm PO Q15M PRN; Protocol PRN Reason: per Hypoglycemia Standing Ord. Hydromorphone HCl (Hydromorphone Hcl 0.5 Mg/0.5 Ml Syringe) 1 mg IVPUSH Q4H PRN; Protocol PRN Reason: Pain, Severe (Pain Scale 7-10) Last Admin: 03/03/23 10:33 Dose: 1 mg Documented By: BENITA Hydroxyzine HCl (Hydroxyzine Hcl 50 Mg Tablet) 50 mg PO Q8H PRN PRN Reason: anxiety Last Admin: 02/28/23 11:41 Dose: 50 mg Documented By: EDUARDO Ceftriaxone Sodium 1 gm/ (Sodium Chloride) 50 mls @ 100 mls/hr IV Q24H [facility] Last Infusion: 03/02/23 21:52 Dose: Infused Documented By: SHANTELLE Metronidazole (Flagyl) 500 mg in 100 mls @ 100 mls/hr IV Q8H [facility] Last Infusion: 03/03/23 10:35 Dose: Infused Documented By: BENITA Insulin Glargine (Insulin Glargine,Hum.Rec.Anlog 100 Unit/Ml 10 Ml Vial) 38 unit SUBCUT BEDTIME [facility] Last Admin: 03/02/23 21:53 Dose: Not Given Documented By: SHANTELLE Non-Admin Reason: No Insulin Coverage Insulin Human Lispro (Insulin Lispro 100 Unit/Ml 3 Ml Vial) 0 unit SUBCUT QIDACHS [facility]; Protocol Last Admin: 03/03/23 07:50 Dose: Not Given Documented By: BENITA Non-Admin Reason: No Insulin Coverage Levothyroxine Sodium (Levothyroxine Sodium 75 Mcg Tablet) 75 mcg PO DAILY@0600 [facility] Last Admin: 03/03/23 05:39 Dose: 75 mcg Documented By: SHANTELLE Lidocaine (Lidocaine 4 % Patch Adh..Patch) 1 patch TRANSDERMA DAILY [facility]; Protocol Last Admin: 03/03/23 09:03 Dose: 1 patch Documented By: BENITA Melatonin (Melatonin 3 Mg Tablet) 6 mg PO BEDTIME PRN PRN Reason: Insomnia Metoprolol Succinate (Metoprolol Succinate Er 100 Mg Tab.Er.24h) 200 mg PO DAILY [facility]; Protocol Last Admin: 03/03/23 09:03 Dose: 200 mg Documented By: BENITA Ondansetron HCl (Ondansetron Hcl 4 Mg/2 Ml Vial) 4 mg IVPUSH Q8H PRN PRN Reason: Nausea and Vomiting Last Admin: 03/01/23 08:40 Dose: 4 mg Documented By: RUCHI Pioglitazone HCl (Pioglitazone Hcl 15 Mg Tablet) 15 mg PO DAILY [facility] Last Admin: 03/03/23 09:03 Dose: 15 mg Documented By: BENITA Sodium Chloride (0.9 % Sodium Chloride Flush 3 Ml Syringe) 3 ml IVFLUSH QSHIFT [facility] Last Admin: 03/03/23 07:17 Dose: Not Given Documented By: BENITA Non-Admin Reason: IV Running Trazodone HCl (Trazodone Hcl 50 Mg Tablet) 150 mg PO BEDTIME [facility] Last Admin: 03/02/23 21:19 Dose: 150 mg Documented By: SHANTELLE Verapamil HCl (Verapamil Hcl Sr 180 Mg Tablet.Er) 180 mg PO DAILY [facility]; Protocol Last Admin: 03/03/23 09:03 Dose: 180 mg Documented By: BENITA Vitamin D (Cholecalciferol (Vitamin D3) 25 Mcg Tablet) 50 mcg PO DAILY [facility] Last Admin: 03/03/23 09:03 Dose: 50 mcg Documented By: BENITA Labs 03/01/23 10:43 02/28/23 06:09 Labs: Laboratory Results - last 24 hr 03/02/23 03/02/23 03/02/23 11:24 16:38 20:28 POC Glucose 84 81 81 03/03/23 07:22 POC Glucose 100 Assessment and Plan (1) Colitis: Status: Acute Plan day5 67 year old obese (BMI 33.8) female with multiple medical problems including T2DM (on Insulin), hypothyroidism, COPD, hypertension, hyperlipidemia, vitamin D deficiency, hyperparathyroidism here with 1. Gastroenteritis stool studies,start analgesics and anti emetics ct abd with po contrast -seems infection area improving Gi eval-continue IV fluids,added ceftriaxone/flagyl(01/29/23),iv dilaudid uptitrated.start full liquid diet. 2. Hyperglycemia- 2/2 poorly controlled T2DM will give half dose of Lantus tonight and resume 38 units at bedtime tomorrow hold Metformin, Pioglitazone and Jardiance SSI correction scale and monitor blood sugars 3. Hypertension - poorly uncontrolled with BP 196/84 mmHg resume Verapamil and Metoprolol and hold HCTZ 4. Hypothyroidism- resume Levothyroxine 5. Obesity- BMI 33.8 kg/m2 - encourage weight loss ongoing inpatient need :Gastroenteritis- unable to tolerate diet , need iv antibiotics ,iv dilaudid,bowel rest , antiemtics ,mniter fs hyperglycemia and blood pressure for uncontrolled htn . Quality Stroke Does the patient have a stroke diagnosis?: No VTE Prior VTE?: No VTE Risk Level:: Medical - moderate - high VTE Device Contraindication: N/A - Device Ordered VTE Drug Contraindication: Treatment Not Indicated
[2023-03-03 11:17] LABS: Glucose, Whole Blood 136 mg/dL (60-115)
[2023-03-03 16:30] LABS: Glucose, Whole Blood 126 mg/dL (60-115)
[2023-03-03] MEDS: 0.9 % Sodium Chloride Flush 3 ML SYRINGE IVFLUSH ×2 (17:31→22:53)
[2023-03-03 18:48] LABS: Glucose, Whole Blood 105 mg/dL (60-115)
[2023-03-03] MEDS: Melatonin 3 MG TABLET 6 MG PO (20:25)
[2023-03-03] MEDS: Gabapentin 300 MG CAPSULE PO (20:25)
[2023-03-03] MEDS: cloNIDine HCL 0.2 MG TABLET PO (20:25)
[2023-03-03] MEDS: traZODone HCL 50 MG TABLET 150 MG PO (20:26)
[2023-03-03 20:38] LABS: Glucose, Whole Blood 146 mg/dL (60-115)
[2023-03-03] MEDS: cefTRIAXone sodium 1 GM in 0.9 % Sodium Chloride 50 ML IV (21:35)
[2023-03-03] MEDS: Insulin Glargine,Hum.rec.anlog 100 UNIT/ML 10 ML VIAL 38 UNIT SUBCUT (22:11)
[2023-03-03] MEDS: Acetaminophen 325 MG TABLET 650 MG PO (22:15)
[2023-03-04] MEDS: metroNIDAZOLE/NS 500 MG/100 ML PIGGYBACK 100 MG IV ×3 (00:46→16:24)
[2023-03-04] MEDS: HYDROmorphone HCl 0.5 MG/0.5 ML SYRINGE 1 MG IVPUSH ×5 (03:29→22:33)
[2023-03-04 04:00] VITALS: BP 128/62; PULSE 59; RESP 16; TEMP 36.1; O2SAT 94
[2023-03-04] MEDS: Levothyroxine Sodium 75 MCG TABLET PO (05:26)
[2023-03-04 06:30] LABS: Anion Gap 12 (12-20); Blood Urea Nitrogen 4 mg/dL (9-16); Calcium 8.3 mg/dL (8.4-10.2); Carbon Dioxide 23 mmol/L (22-29); Chloride 109 mmol/L (96-108); Creatinine Clr Calc Pharmacy 88.5; Estimated Glomerular Filt Rate > 60; Glucose Random 97 mg/dL (60-115); Potassium 3.2 mmol/L (3.3-5.1); Sodium 141 mmol/L (135-145)
[2023-03-04 06:45] LABS: Hematocrit 37.5 % (37.0-47.0); Hemoglobin 12.8 g/dl (12.0-16.0); Mean Corpuscular HGB Conc 34.1 g/dl (31.0-35.0); Mean Corpuscular Hemoglobin 28.1 pg (27.0-33.0); Mean Corpuscular Volume 82.4 fL (80.0-98.0); Platelet Count 239 X10*3/uL (160-400); Red Blood Count 4.55 X10*6/uL (4.20-5.50); White Blood Count 10.4 X10*3/uL (4.8-10.8)
[2023-03-04 07:23] VITALS: BP 123/58; PULSE 56; RESP 17; TEMP 36.6; O2SAT 93
[2023-03-04 07:38] LABS: Glucose, Whole Blood 85 mg/dL (60-115)
[2023-03-04] MEDS: Fluticasone/Umeclidinium/Vilanterol 200/62.5/25 BLST.W.DEV 1 PUFF INHALE (08:02)
[2023-03-04 08:03] VITALS: PULSE 65; RESP 18; O2SAT 98
[2023-03-04] MEDS: VerapamiL HCL SR 180 MG TABLET.ER PO (08:24)
[2023-03-04] MEDS: Empagliflozin 25 MG TABLET PO (08:24)
[2023-03-04] MEDS: Cyanocobalamin (Vitamin B-12) 1,000 MCG TABLET 1000 MCG PO (08:24)
[2023-03-04] MEDS: Metoprolol Succinate ER 100 MG TAB.ER.24H 200 MG PO (08:24)
[2023-03-04] MEDS: Cholecalciferol (Vitamin D3) 25 MCG TABLET 50 MCG PO (08:24)
[2023-03-04] MEDS: Aspirin Enteric Coated 81 MG TABLET.DR PO (08:24)
[2023-03-04] MEDS: Potassium Chloride Packet 20 MEQ PACKET 40 MEQ PO (08:24)
[2023-03-04] MEDS: Lidocaine 4 % Patch ADH..PATCH 1 PATCH TRANSDERMA (08:25)
[2023-03-04] MEDS: 0.9 % Sodium Chloride Flush 3 ML SYRINGE IVFLUSH ×3 (08:25→20:16)
[2023-03-04] MEDS: ondansetron HCL 4 MG/2 ML VIAL IVPUSH (10:54)
[2023-03-04 11:30] LABS: Glucose, Whole Blood 114 mg/dL (60-115)
--- NOTE | 2023-03-04 12:19 | MHC.CM.PN ---
per rounds pt not medically cleR FOR DC PT HAVING ABDOMIANL PAOIN DC PLAN REMAINS HOME
--- NOTE | 2023-03-04 15:19 | PC.NURSE ---
Diet advanced from clear liquid diet to regular diabetic diet prior to breakfast, Pt vomiting after attempting to eat regular diet for breakfast, Pt medicated with antinausea medication per MAY with good effect, Pt unable to tolerate eating regular diet for lunch, complains of abdominal pain, Pt medicated per MAY with good effect. Pt resting in bed with eyes closed, respirations even and unlabored.
[2023-03-04 15:24] VITALS: BP 117/65; PULSE 58; RESP 18; TEMP 36; O2SAT 96
--- NOTE | 2023-03-04 15:48 | HO.PM.IMPN ---
Subjective Subjective Date of Service: 03/04/23 Interval History: f/u on abd pain, persistent pain, Physical Exam Vital Signs: Vital Signs: Last Vital Signs Temp 96.8 F 03/04/23 15:24 Pulse 58 03/04/23 15:24 Resp 18 03/04/23 15:24 BP 117/65 03/04/23 15:24 Pulse Ox 96 03/04/23 15:24 O2 Del Method Room Air 03/04/23 15:24 BMI result Body Mass Index 35.5 Const: Other: General: AO X 3, no acute distress Resp: CTA bilateral CVS: S1,S2,RRR GI: +BS, NT, no distention Skin: No rash Neuro: motor grossly intact Psych: appropriate affect Objective Data Active Medications Acetaminophen (Acetaminophen 325 Mg Tablet) 650 mg PO Q6H PRN PRN Reason: Pain, Mild (Pain Scale 1-3) Last Admin: 03/03/23 22:15 Dose: 650 mg Documented By: ADY Al Hydroxide/Mg Hydroxide (Magnesium Hydrox/Alum Hydrox 30 Ml Oral.Susp) 30 ml PO Q4H PRN PRN Reason: Heartburn/Nausea Last Admin: 02/28/23 19:51 Dose: 30 ml Documented By: CASTILEd Albuterol Sulfate (Albuterol Sulfate (0.042%) 1.25 Mg/3 Ml Vial.Franco) 1.25 mg INHALE Q4H PRN PRN Reason: wheezing Aspirin (Aspirin Enteric Coated 81 Mg Tablet.) 81 mg PO DAILY [facility] Last Admin: 03/04/23 08:24 Dose: 81 mg Documented By: MIGUEL Clonidine HCl (Clonidine Hcl 0.2 Mg Tablet) 0.2 mg PO BEDTIME [facility]; Protocol Last Admin: 03/03/23 20:25 Dose: 0.2 mg Documented By: ADY Cyanocobalamin (Cyanocobalamin (Vitamin B-12) 1,000 Mcg Tablet) 1,000 mcg PO DAILY [facility] Last Admin: 03/04/23 08:24 Dose: 1,000 mcg Documented By: MIGUEL Dextrose (Dextrose 50 % 25 Gm/50 Ml Syringe) 25 gm IVPUSH Q15M PRN; Protocol PRN Reason: per Hypoglycemia Standing Ord. Empagliflozin (Empagliflozin 25 Mg Tablet) 25 mg PO DAILY [facility] Last Admin: 03/04/23 08:24 Dose: 25 mg Documented By: MIGUEL Fluticasone/Umeclidinium/Vilanterol (Fluticasone/Umeclidinium/Vilanterol 200/62.5/25 Blst.W.Dev) 1 puff INHALE RDAILY [facility] Last Admin: 03/04/23 08:02 Dose: 1 puff Documented By: TYLER Gabapentin (Gabapentin 300 Mg Capsule) 300 mg PO BEDTIME [facility] Last Admin: 03/03/23 20:25 Dose: 300 mg Documented By: ADY Glucose (Glucose Gel 15 Gm Gel..Gram.) 15 gm PO Q15M PRN; Protocol PRN Reason: per Hypoglycemia Standing Ord. Hydromorphone HCl (Hydromorphone Hcl 0.5 Mg/0.5 Ml Syringe) 1 mg IVPUSH Q4H PRN; Protocol PRN Reason: Pain, Severe (Pain Scale 7-10) Last Admin: 03/04/23 14:14 Dose: 1 mg Documented By: MIGUEL Hydroxyzine HCl (Hydroxyzine Hcl 50 Mg Tablet) 50 mg PO Q8H PRN PRN Reason: anxiety Last Admin: 02/28/23 11:41 Dose: 50 mg Documented By: EDUARDO Ceftriaxone Sodium 1 gm/ (Sodium Chloride) 50 mls @ 100 mls/hr IV Q24H [facility] Last Infusion: 03/03/23 22:11 Dose: Infused Documented By: ADY Metronidazole (Flagyl) 500 mg in 100 mls @ 100 mls/hr IV Q8H [facility] Last Infusion: 03/04/23 09:36 Dose: Infused Documented By: MIGUEL Insulin Glargine (Insulin Glargine,Hum.Rec.Anlog 100 Unit/Ml 10 Ml Vial) 38 unit SUBCUT BEDTIME [facility] Last Admin: 03/03/23 22:11 Dose: 38 unit Documented By: ADY Insulin Human Lispro (Insulin Lispro 100 Unit/Ml 3 Ml Vial) 0 unit SUBCUT QIDACHS [facility]; Protocol Last Admin: 03/04/23 11:32 Dose: Not Given Documented By: MIGUEL Non-Admin Reason: No Insulin Coverage Levothyroxine Sodium (Levothyroxine Sodium 75 Mcg Tablet) 75 mcg PO DAILY@0600 [facility] Last Admin: 03/04/23 05:26 Dose: 75 mcg Documented By: ADY Lidocaine (Lidocaine 4 % Patch Adh..Patch) 1 patch TRANSDERMA DAILY [facility]; Protocol Last Admin: 03/04/23 08:25 Dose: 1 patch Documented By: MIGUEL Melatonin (Melatonin 3 Mg Tablet) 6 mg PO BEDTIME PRN PRN Reason: Insomnia Last Admin: 03/03/23 20:25 Dose: 6 mg Documented By: ADY Metoprolol Succinate (Metoprolol Succinate Er 100 Mg Tab.Er.24h) 200 mg PO DAILY [facility]; Protocol Last Admin: 03/04/23 08:24 Dose: 200 mg Documented By: MIGUEL Ondansetron HCl (Ondansetron Hcl 4 Mg/2 Ml Vial) 4 mg IVPUSH Q8H PRN PRN Reason: Nausea and Vomiting Last Admin: 03/04/23 10:54 Dose: 4 mg Documented By: MIGUEL Pioglitazone HCl (Pioglitazone Hcl 15 Mg Tablet) 15 mg PO DAILY [facility] Last Admin: 03/04/23 08:24 Dose: 15 mg Documented By: MIGUEL Sodium Chloride (0.9 % Sodium Chloride Flush 3 Ml Syringe) 3 ml IVFLUSH QSHIFT [facility] Last Admin: 03/04/23 08:25 Dose: 3 ml Documented By: MIGUEL Trazodone HCl (Trazodone Hcl 50 Mg Tablet) 150 mg PO BEDTIME [facility] Last Admin: 03/03/23 20:26 Dose: 150 mg Documented By: ADY Verapamil HCl (Verapamil Hcl Sr 180 Mg Tablet.Er) 180 mg PO DAILY [facility]; Protocol Last Admin: 03/04/23 08:24 Dose: 180 mg Documented By: IMGUEL Vitamin D (Cholecalciferol (Vitamin D3) 25 Mcg Tablet) 50 mcg PO DAILY [facility] Last Admin: 03/04/23 08:24 Dose: 50 mcg Documented By: IMGUEL Labs 03/04/23 05:54 03/04/23 05:54 Labs: Laboratory Results - last 24 hr 03/03/23 03/03/23 03/03/23 16:21 18:44 20:28 MCV MCH MCHC RDW Plt Count MPV Absolute Nucleated RBC Nucleated RBC % (auto) Anion Gap Estim Creat Clear Calc Estimated GFR POC Glucose 126 H 105 146 H Random Glucose Calcium 03/04/23 03/04/23 03/04/23 05:54 07:34 11:24 MCV 82.4 MCH 28.1 MCHC 34.1 RDW 13.0 Plt Count 239 MPV 10.0 Absolute Nucleated RBC 0.000 Nucleated RBC % (auto) 0.0 Anion Gap 12 Estim Creat Clear Calc 88.5 Estimated GFR > 60 POC Glucose 85 114 Random Glucose 97 Calcium 8.3 L Assessment and Plan (1) Colitis: Status: Acute Plan 67 year old obese (BMI 33.8) female with multiple medical problems including T2DM (on Insulin), hypothyroidism, COPD, hypertension, hyperlipidemia, vitamin D deficiency, hyperparathyroidism here with 1. Gastroenteritis, a CT abd showed improvement compare to prior study, symptomatic treatment and empric flagyl and ceftriaxone. Advance diet 2. T2DM, better controlled. continue Lantus, SSI. Hold Metformin, Actose and Jardiance 3. Hypertension -Controlle, continue clonidine, verapamil, metoprolol 4. Hypothyroidism- resume Levothyroxine 5. Obesity- BMI 33.8 kg/m2 - encourage weight loss need for inpt: persistent abd pain in setting gastroenteritis, slow to advance diet Quality Stroke Does the patient have a stroke diagnosis?: No VTE Prior VTE?: No VTE Risk Level:: Medical - moderate - high VTE Device Contraindication: N/A - Device Ordered VTE Drug Contraindication: Treatment Not Indicated
[2023-03-04 16:15] LABS: Glucose, Whole Blood 97 mg/dL (60-115)
[2023-03-04 19:42] VITALS: BP 152/67; PULSE 66; RESP 18; TEMP 36; O2SAT 97
[2023-03-04 20:00] LABS: Glucose, Whole Blood 156 mg/dL (60-115)
[2023-03-04] MEDS: Insulin Lispro 100 UNIT/ML 3 ML VIAL SUBCUT (20:14)
[2023-03-04] MEDS: Insulin Glargine,Hum.rec.anlog 100 UNIT/ML 10 ML VIAL 38 UNIT SUBCUT (20:15)
[2023-03-04] MEDS: Gabapentin 300 MG CAPSULE PO (20:15)
[2023-03-04] MEDS: cloNIDine HCL 0.2 MG TABLET PO (20:15)
[2023-03-04] MEDS: traZODone HCL 50 MG TABLET 150 MG PO (20:15)
[2023-03-04] MEDS: cefTRIAXone sodium 1 GM in 0.9 % Sodium Chloride 50 ML IV (20:24)
[2023-03-04] MEDS: Melatonin 3 MG TABLET 6 MG PO (22:33)
[2023-03-05] MEDS: metroNIDAZOLE/NS 500 MG/100 ML PIGGYBACK 100 MG IV (00:44)
[2023-03-05] MEDS: HYDROmorphone HCl 0.5 MG/0.5 ML SYRINGE 1 MG IVPUSH ×4 (02:44→15:45)
[2023-03-05 03:47] VITALS: RESP 16
[2023-03-05 04:00] VITALS: BP 114/56; PULSE 56; RESP 16; TEMP 36.6; O2SAT 95
[2023-03-05] MEDS: Levothyroxine Sodium 75 MCG TABLET PO (04:44)
[2023-03-05] MEDS: Acetaminophen 325 MG TABLET 650 MG PO (05:40)
[2023-03-05 07:35] LABS: Glucose, Whole Blood 116 mg/dL (60-115)
[2023-03-05 08:00] VITALS: BP 113/57; PULSE 61; RESP 17; TEMP 36.4; O2SAT 93
[2023-03-05] MEDS: Fluticasone/Umeclidinium/Vilanterol 200/62.5/25 BLST.W.DEV 1 PUFF INHALE (08:21)
[2023-03-05 08:25] VITALS: PULSE 72; RESP 18; O2SAT 92
--- NOTE | 2023-03-05 09:18 | HO.PM.IMPN ---
Subjective Subjective Date of Service: 03/05/23 Interval History: Patient seen and examined with a rehabilitation aide/scheduler. She is still reporting abdominal pain diarrhea and an episode of vomiting yesterday. She is also reporting some new cough. No shortness of breath vital signs are stable, she is afebrile. Physical Exam Vital Signs: Vital Signs: Last Vital Signs Temp 97.6 F 03/05/23 08:00 Pulse 72 03/05/23 08:25 Resp 18 03/05/23 08:25 BP 113/57 L 03/05/23 08:00 Pulse Ox 93 03/05/23 08:00 O2 Del Method Room Air 03/05/23 08:00 BMI result Body Mass Index 35.5 Const: Other: General: AO X 3, no acute distress Resp: CTA bilateral CVS: S1,S2,RRR GI: +BS, NT, no distention Skin: No rash Neuro: motor grossly intact Psych: appropriate affect Objective Data Active Medications Acetaminophen (Acetaminophen 325 Mg Tablet) 650 mg PO Q6H PRN PRN Reason: Pain, Mild (Pain Scale 1-3) Last Admin: 03/05/23 05:40 Dose: 650 mg Documented By: ADY Al Hydroxide/Mg Hydroxide (Magnesium Hydrox/Alum Hydrox 30 Ml Oral.Susp) 30 ml PO Q4H PRN PRN Reason: Heartburn/Nausea Last Admin: 02/28/23 19:51 Dose: 30 ml Documented By: AMADOU Albuterol Sulfate (Albuterol Sulfate (0.042%) 1.25 Mg/3 Ml Vial.Neb) 1.25 mg INHALE Q4H PRN PRN Reason: wheezing Aspirin (Aspirin Enteric Coated 81 Mg Tablet.) 81 mg PO DAILY [facility] Last Admin: 03/04/23 08:24 Dose: 81 mg Documented By: MIGUEL Clonidine HCl (Clonidine Hcl 0.2 Mg Tablet) 0.2 mg PO BEDTIME [facility]; Protocol Last Admin: 03/04/23 20:15 Dose: 0.2 mg Documented By: ADY Cyanocobalamin (Cyanocobalamin (Vitamin B-12) 1,000 Mcg Tablet) 1,000 mcg PO DAILY [facility] Last Admin: 03/04/23 08:24 Dose: 1,000 mcg Documented By: MIGUEL Dextrose (Dextrose 50 % 25 Gm/50 Ml Syringe) 25 gm IVPUSH Q15M PRN; Protocol PRN Reason: per Hypoglycemia Standing Ord. Empagliflozin (Empagliflozin 25 Mg Tablet) 25 mg PO DAILY [facility] Last Admin: 03/04/23 08:24 Dose: 25 mg Documented By: MIGUEL Fluticasone/Umeclidinium/Vilanterol (Fluticasone/Umeclidinium/Vilanterol 200/62.5/25 Blst.W.Dev) 1 puff INHALE RDAILY [facility] Last Admin: 03/05/23 08:21 Dose: 1 puff Documented By: TYLER Gabapentin (Gabapentin 300 Mg Capsule) 300 mg PO BEDTIME [facility] Last Admin: 03/04/23 20:15 Dose: 300 mg Documented By: ADY Glucose (Glucose Gel 15 Gm Gel..Gram.) 15 gm PO Q15M PRN; Protocol PRN Reason: per Hypoglycemia Standing Ord. Hydromorphone HCl (Hydromorphone Hcl 0.5 Mg/0.5 Ml Syringe) 1 mg IVPUSH Q4H PRN; Protocol PRN Reason: Pain, Severe (Pain Scale 7-10) Last Admin: 03/05/23 06:34 Dose: 1 mg Documented By: ADY Hydroxyzine HCl (Hydroxyzine Hcl 50 Mg Tablet) 50 mg PO Q8H PRN PRN Reason: anxiety Last Admin: 02/28/23 11:41 Dose: 50 mg Documented By: EDUARDO Ceftriaxone Sodium 1 gm/ (Sodium Chloride) 50 mls @ 100 mls/hr IV Q24H [facility] Last Infusion: 03/04/23 21:10 Dose: Infused Documented By: ADY Insulin Glargine (Insulin Glargine,Hum.Rec.Anlog 100 Unit/Ml 10 Ml Vial) 38 unit SUBCUT BEDTIME [facility] Last Admin: 03/04/23 20:15 Dose: 38 unit Documented By: ADY Insulin Human Lispro (Insulin Lispro 100 Unit/Ml 3 Ml Vial) 0 unit SUBCUT QIDACHS [facility]; Protocol Last Admin: 03/05/23 07:37 Dose: Not Given Documented By: CATHI Non-Admin Reason: See Note Levothyroxine Sodium (Levothyroxine Sodium 75 Mcg Tablet) 75 mcg PO DAILY@0600 [facility] Last Admin: 03/05/23 04:44 Dose: 75 mcg Documented By: ADY Lidocaine (Lidocaine 4 % Patch Adh..Patch) 1 patch TRANSDERMA DAILY [facility]; Protocol Last Admin: 03/04/23 08:25 Dose: 1 patch Documented By: MIGUEL Melatonin (Melatonin 3 Mg Tablet) 6 mg PO BEDTIME PRN PRN Reason: Insomnia Last Admin: 03/04/23 22:33 Dose: 6 mg Documented By: ADY Metoprolol Succinate (Metoprolol Succinate Er 100 Mg Tab.Er.24h) 200 mg PO DAILY [facility]; Protocol Last Admin: 03/04/23 08:24 Dose: 200 mg Documented By: MIGUEL Ondansetron HCl (Ondansetron Hcl 4 Mg/2 Ml Vial) 4 mg IVPUSH Q8H PRN PRN Reason: Nausea and Vomiting Last Admin: 03/04/23 10:54 Dose: 4 mg Documented By: MIGUEL Pioglitazone HCl (Pioglitazone Hcl 15 Mg Tablet) 15 mg PO DAILY [facility] Last Admin: 03/04/23 08:24 Dose: 15 mg Documented By: MIGUEL Sodium Chloride (0.9 % Sodium Chloride Flush 3 Ml Syringe) 3 ml IVFLUSH QSHIFT [facility] Last Admin: 03/05/23 07:34 Dose: Not Given Documented By: CATHI Non-Admin Reason: See Note Trazodone HCl (Trazodone Hcl 50 Mg Tablet) 150 mg PO BEDTIME [facility] Last Admin: 03/04/23 20:15 Dose: 150 mg Documented By: ADY Verapamil HCl (Verapamil Hcl Sr 180 Mg Tablet.Er) 180 mg PO DAILY [facility]; Protocol Last Admin: 03/04/23 08:24 Dose: 180 mg Documented By: MIGUEL Vitamin D (Cholecalciferol (Vitamin D3) 25 Mcg Tablet) 50 mcg PO DAILY [facility] Last Admin: 03/04/23 08:24 Dose: 50 mcg Documented By: MIGUEL Labs 03/04/23 05:54 03/04/23 05:54 Labs: Laboratory Results - last 24 hr 03/04/23 03/04/23 03/04/23 11:24 16:11 19:02 POC Glucose 114 97 156 H 03/05/23 06:57 POC Glucose 116 H Assessment and Plan (1) Colitis: Status: Acute Plan 67 year old obese (BMI 33.8) female with multiple medical problems including T2DM (on Insulin), hypothyroidism, COPD, hypertension, hyperlipidemia, vitamin D deficiency, hyperparathyroidism here with Gastroenteritis with possible component of colitis, a repeat CT abd showed improvement. Has been on empiric Abx, WBC down to nl, no fever, advance diet. GI rec cdif, gi panel if diarrhea persists cough.. check flu, rsv, covid, cxr T2DM, better controlled. continue Lantus, SSI. Hold Metformin, Actose and Jardiance Hypertension -Controlled, continue clonidine, verapamil, metoprolol Hypothyroidism- resume Levothyroxine Obesity- BMI 33.8 kg/m2 - encourage weight loss need for inpt: persistent abd pain in setting gastroenteritis, slow to advance diet out of bed ambulate, if stool study nl, along cxr, and flu/covid/rsv negative will dc later today Quality Stroke Does the patient have a stroke diagnosis?: No VTE Prior VTE?: No VTE Risk Level:: Medical - moderate - high VTE Device Contraindication: N/A - Device Ordered VTE Drug Contraindication: Treatment Not Indicated
[2023-03-05] MEDS: Aspirin Enteric Coated 81 MG TABLET.DR PO (10:08)
[2023-03-05] MEDS: Cyanocobalamin (Vitamin B-12) 1,000 MCG TABLET 1000 MCG PO (10:08)
[2023-03-05] MEDS: VerapamiL HCL SR 180 MG TABLET.ER PO (10:08)
[2023-03-05] MEDS: Cholecalciferol (Vitamin D3) 25 MCG TABLET 50 MCG PO (10:08)
[2023-03-05] MEDS: Metoprolol Succinate ER 100 MG TAB.ER.24H 200 MG PO (10:08)
[2023-03-05] MEDS: Empagliflozin 25 MG TABLET PO (10:08)
[2023-03-05] MEDS: metroNIDAZOLE 500 MG TABLET PO ×2 (10:27→16:42)
[2023-03-05 10:54] LABS: CDiff Gene PCR NEGATIVE (Negative)
[2023-03-05 10:58] LABS: Leukocytes Stool Qualitative NEGATIVE (NEGATIVE)
[2023-03-05 11:11] LABS: Influenza A PCR NEGATIVE (Negative); Influenza B PCR NEGATIVE (Negative); Resp Syncy Virus RNA Qual PCR NEGATIVE (Negative); SARS COV2 PCR INHOUSE NEGATIVE (Negative)
[2023-03-05 11:27] LABS: Glucose, Whole Blood 196 mg/dL (60-115)
[2023-03-05] MEDS: Insulin Lispro 100 UNIT/ML 3 ML VIAL SUBCUT (11:49)
[2023-03-05 12:03] LABS: Adenovirus F 40/41 Not Detected (Not Detect.); Astrovirus Not Detected (Not Detect.); Campylobacter Not Detected (Not Detect.); Cryptosporidium Not Detected (Not Detect.); Cyclospora cayetanensis Not Detected (Not Detect.); E. coli EAEC Not Detected (Not Detect.); E. coli EPEC Not Detected (Not Detect.); E. coli ETEC Not Detected (Not Detect.); E. coli STEC Not Detected (Not Detect.); Entamoeba histolytica Not Detected (Not Detect.); Giardia lamblia Not Detected (Not Detect.); Norovirus GI/GII Not Detected (Not Detect.); Plesiomonas shigelloides Not Detected (Not Detect.); Rotavirus A Not Detected (Not Detect.); Salmonella Not Detected (Not Detect.); Sapovirus Not Detected (Not Detect.); Shigella sp./EIEC Not Detected (Not Detect.); Vibrio Not Detected (Not Detect.); Vibrio Cholerae Not Detected (Not Detect.); Yersinia enterocolitica Not Detected (Not Detect.)
[2023-03-05 15:08] VITALS: BP 123/74; PULSE 118; RESP 18; TEMP 37.3; O2SAT 99
[2023-03-05 15:53] LABS: Hematocrit 36.3 % (37.0-47.0); Hemoglobin 12.3 g/dl (12.0-16.0); Mean Corpuscular HGB Conc 33.9 g/dl (31.0-35.0); Mean Corpuscular Hemoglobin 27.4 pg (27.0-33.0); Mean Corpuscular Volume 80.8 fL (80.0-98.0); Mean Platelet Volume 9.5 fL (9.4-12.3); Platelet Count 261 X10*3/uL (160-400); Red Blood Count 4.49 X10*6/uL (4.20-5.50); Red Cell Distribution Width 13.2 % (11.0-16.0); White Blood Count 10.4 X10*3/uL (4.8-10.8)
[2023-03-05 16:10] LABS: Glucose, Whole Blood 143 mg/dL (60-115)
[2023-03-05 16:11] LABS: Anion Gap 10 (12-20); Blood Urea Nitrogen 9 mg/dL (9-16); Calcium 8.5 mg/dL (8.4-10.2); Carbon Dioxide 25 mmol/L (22-29); Chloride 107 mmol/L (96-108); Creatinine Clr Calc Pharmacy 76.5; Estimated Glomerular Filt Rate > 60; Glucose Random 153 mg/dL (60-115); Magnesium 1.9 mg/dL (1.6-2.6); Potassium 3.4 mmol/L (3.3-5.1); Sodium 139 mmol/L (135-145)
--- NOTE | 2023-03-05 16:57 | PM.DS ---
DS: Providers Provider Date of Service: 03/05/23 Date of admission: 02/27/23 23:48 Primary care physician: Breanna Zamudio NP Consults: 03/02/23 09:43 Consult to Gastroenterology Routine Consulting Provider: [facility] [place] Gastroenterology Services Reason for consultation: ABD PAIN Has provider been notified: No DS: Diagnosis Discharge Diagnosis (1) Colitis: Status: Acute DS: Summary Hospital Course Hospital Course: Chief Complaint: Bloody diarrhea 67 year old obese (BMI 33.8) female with multiple medical problems including T2DM (on Insulin), hypothyroidism, COPD, hypertension, hyperlipidemia, vitamin D deficiency, hyperparathyroidism presents to the emergency room accompanied by her complaining of severe abdominal pain, bloody diarrhea, nausea and vomiting since yesterday. HE states that they had shrimp fried rice and chicken broccoli from a [employer] restaurant for dinner last night and that about 20 minutes later, patient had to hammonds to the bathroom where she had more than 10 episodes of vomiting followed by multiple episodes of non-bloody diarrhea. She spent more than an hour in the bathroom after which she came to the emergency room where she received analgesics and Maalox and was discharged home. Today she had mashed potatoes from another restaurant but soon after developed nausea, vomiting and this time had bloody diarrhea prompting her to return to the emergency room where initial blood work done revealed a leucocytosis of 18.5 k/mm3 with a left shift. She received a dose of IV Flagyl following which admission was requested. Hospital course: Patient presented with abdominal pain and bloody in stool, vomitting. A CT scan had been performed 4 dayts earlier and showed colitis, repeat CT on this presentation showed the previous changes of colitis seen on the study 4 days ago have nearly completely resolved with only one area of residual mild pericolonic inflammatory change remaining - the mucosal thickening noted previously has resolved. Her WBC was elevated at 18 K and peaked at 19K. She was initiated on IV antibiotics with Ceftriaxone and Flagyl. She was seen in consultation by a retail stock clerk with recommendation to complete a 7 day course of antibiotic. Stool study including GI panel and C diff has been negative. Overall she has improved and her diet has been advanced to a regular diet which she seemed to be tolerating at this point. Repeat lab at this point showed normal WBC of 10.4K. she is afebrile, she has some residual abdominal discomfort for but is expected to make full recovery. Her electrolytes are also within normal limit, She will be treated with 2 more days of antibioitics for a total of 7 Time Attestation Discharge coordination time: Greater than 30 minutes Quality: Safe Use of Opioids Does Pt have an Active Cancer Diagnosis on the Problem List?: No Quality: Stroke Does the patient have a stroke diagnosis?: No Physical Exam Vital Signs: Vital Signs: Last Vital Signs Temp 99.2 F 03/05/23 15:08 Pulse 118 H 03/05/23 15:08 Resp 18 03/05/23 15:08 BP 123/74 03/05/23 15:08 Pulse Ox 99 03/05/23 15:08 O2 Del Method Room Air 03/05/23 15:08 BMI result Body Mass Index 35.5 DS: Data Data Completed and Pending Labs on day of discharge: Laboratory Results - last 24 hr 03/04/23 03/05/23 03/05/23 19:02 06:57 09:34 WBC RBC Hgb Hct MCV MCH MCHC RDW Plt Count MPV Absolute Nucleated RBC Nucleated RBC % (auto) Sodium Potassium Chloride Carbon Dioxide Anion Gap BUN Creatinine Estim Creat Clear Calc Estimated GFR POC Glucose 156 H 116 H Random Glucose Calcium Magnesium Stool Leukocytes, Qual NEGATIVE Stl C. cayetanensis PCR Not Detected Stool Rotavirus A PCR Not Detected Stl Adenov F 40/41 PCR Not Detected Stool Astrovirus (PCR) Not Detected Stool Campylobacter PCR Not Detected Stool Cryptosporidium PCR Not Detected Stl Sh Tox Pr E STEC PCR Not Detected Stool E coli O157 PCR Not applicable Stl Enterotoxigenic E PCR Not Detected Stool EPEC (PCR) Not Detected Stool EAEC (PCR) Not Detected Stl E. histolytica PCR Not Detected Stool Giardia Lamblia PCR Not Detected Stl P. shigelloides PCR Not Detected Stool Salmonella PCR Not Detected Stool Sapovirus (PCR) Not Detected Stl Shigella/EIEC PCR Not Detected St Y.enterocolitica PCR Not Detected Stool Vibrio (PCR) Not Detected Stl Vibrio cholerae PCR Not Detected Stl Norovirus GI/GII PCR Not Detected C. difficile Tox B Gene NEGATIVE Influenza Type A (PCR) Influenza Type B (PCR) RSV RNA Qual (PCR) SARS-CoV-2 RNA (RT-PCR) 03/05/23 03/05/23 03/05/23 10:07 11:19 15:45 WBC 10.4 RBC 4.49 Hgb 12.3 Hct 36.3 L MCV 80.8 MCH 27.4 MCHC 33.9 RDW 13.2 Plt Count 261 MPV 9.5 Absolute Nucleated RBC 0.000 Nucleated RBC % (auto) 0.0 Sodium 139 Potassium 3.4 Chloride 107 Carbon Dioxide 25 Anion Gap 10 L BUN 9 Creatinine 0.81 Estim Creat Clear Calc 76.5 Estimated GFR > 60 POC Glucose 196 H Random Glucose 153 H Calcium 8.5 Magnesium 1.9 Stool Leukocytes, Qual Stl C. cayetanensis PCR Stool Rotavirus A PCR Stl Adenov F 40 PCR Stool Astrovirus (PCR) Stool Campylobacter PCR Stool Cryptosporidium PCR Stl Sh Tox Pr E STEC PCR Stool E coli O157 PCR Stl Enterotoxigenic E PCR Stool EPEC (PCR) Stool EAEC (PCR) Stl E. histolytica PCR Stool Giardia Lamblia PCR Stl P. shigelloides PCR Stool Salmonella PCR Stool Sapovirus (PCR) Stl Shigella/EIEC PCR St Y.enterocolitica PCR Stool Vibrio (PCR) Stl Vibrio cholerae PCR Stl Norovirus GI/GII PCR C. difficile Tox B Gene Influenza Type A (PCR) NEGATIVE Influenza Type B (PCR) NEGATIVE RSV RNA Qual (PCR) NEGATIVE SARS-CoV-2 RNA (RT-PCR) NEGATIVE 03/05/23 16:06 WBC RBC Hgb Hct MCV MCH MCHC RDW Plt Count MPV Absolute Nucleated RBC Nucleated RBC % (auto) Sodium Potassium Chloride Carbon Dioxide Anion Gap BUN Creatinine Estim Creat Clear Calc Estimated GFR POC Glucose 143 H Random Glucose Calcium Magnesium Stool Leukocytes, Qual Stl C. cayetanensis PCR Stool Rotavirus A PCR Stl Adenov F PCR Stool Astrovirus (PCR) Stool Campylobacter PCR Stool Cryptosporidium PCR Stl Sh Tox Pr E STEC PCR Stool E coli O157 PCR Stl Enterotoxigenic E PCR Stool EPEC (PCR) Stool EAEC (PCR) Stl E. histolytica PCR Stool Giardia Lamblia PCR Stl P. shigelloides PCR Stool Salmonella PCR Stool Sapovirus (PCR) Stl Shigella/EIEC PCR St Y.enterocolitica PCR Stool Vibrio (PCR) Stl Vibrio cholerae PCR Stl Norovirus GI/GII PCR C. difficile Tox B Gene Influenza Type A (PCR) Influenza Type B (PCR) RSV RNA Qual (PCR) SARS-CoV-2 RNA (RT-PCR) Discharge Plan Discharge Anticipated Discharge Date/Time: 03/05/23 15:16 Patient Disposition: Home, Self-Care Discharge Diagnosis: enterocolitis, Referrals: Breanna Zamudio, EXPORT SPECIALIST [Primary Care Provider] - 1 Week Discharge Medications: New oxycodone 5 mg tablet 5 mg PO Q6H PRN (Reason: pain (scale score 7-10)) Qty: 14 0RF Rx Instructions: Partial Fill upon patient request. metronidazole 500 mg Tablet 500 mg PO BID Qty: 4 0RF cefuroxime axetil 500 mg tablet 500 mg PO BID 2 Days Qty: 4 0RF Continued acetaminophen 650 mg tablet extended release 650 mg PO Q8H PRN (Reason: pain) Qty: 90 3RF gabapentin 100 mg capsule 300 mg PO BEDTIME Qty: 90 0RF mecobalamin (vitamin B12) 1,000 mcg tablet,chewable 1,000 mcg PO DAILY 30 Days Qty: 30 11RF cholecalciferol (vitamin D3) 50 mcg (2,000 unit) tablet 50 mcg PO QAM Qty: 30 11RF rosuvastatin 40 mg tablet 40 mg PO DAILY Qty: 30 11RF meclizine 25 mg tablet 25 mg PO DAILY PRN (Reason: dizziness) Qty: 20 0RF albuterol sulfate 0.63 mg/3 mL solution for nebulization 1 amp inhalation Q4H PRN (Reason: wheezing) aspirin 81 mg tablet,delayed release (DR/EC) 1 tab PO DAILY Certavite-Antioxidant 18-400 mg-mcg tablet 1 tab PO DAILY levothyroxine 75 mcg tablet 75 mcg PO DAILY@0600 albuterol sulfate [Ventolin HFA] 90 mcg/actuation HFA aerosol inhaler 90 mcg inhalation Q4H PRN (Reason: Wheezing) Qty: 8.5 0RF ibuprofen 600 mg tablet 600 mg PO TID PRN (Reason: fever or pain) Qty: 20 0RF ondansetron 4 mg tablet,disintegrating 4 mg PO Q6-8H PRN (Reason: nausea and vomiting) Qty: 10 0RF insulin glargine [Lantus Solostar U-100 Insulin] 100 unit/mL (3 mL) insulin pen 38 unit subcut BEDTIME pioglitazone 15 mg tablet 15 mg PO DAILY Jardiance 25 mg tablet 25 mg PO DAILY clonidine HCl 0.1 mg tablet 0.2 mg PO BEDTIME cyanocobalamin (vitamin B-12) 1,000 mcg tablet, sublingual 1,000 mcg PO DAILY Ozempic 0.25 mg or 0.5 mg (2 mg/3 mL) pen injector 0.5 mg subcut MO@0900 dexlansoprazole 60 mg capsule,biphase delayed releas 60 mg PO DAILY@0630 hydrochlorothiazide 50 mg tablet 50 mg PO DAILY tramadol 50 mg tablet 50 mg PO TID PRN (Reason: Pain) lisinopril 40 mg tablet 40 mg PO DAILY furosemide 20 mg tablet 20 mg PO DAILY (DME) blood sugar diagnostic Strip See Rx Instructions Not Applicable BID Qty: 10 Rx Instructions: As directed hydroxyzine HCl 50 mg tablet 50 mg PO Q8H PRN (Reason: anxiety) trazodone 150 mg tablet 300 mg PO BEDTIME metoprolol succinate 200 mg tablet extended release 24 hr 200 mg PO DAILY (DME) lancets [OneTouch Delica Plus Lancet] 33 gauge misc See Rx Instructions topical .MEDSUPPLY Qty: 100 Rx Instructions: As directed verapamil 180 mg tablet extended release 180 mg PO DAILY metformin 500 mg tablet extended release 24 hr 1,000 mg PO BID 30 Days Qty: 120 11RF Trelegy Ellipta 200-62.5-25 mcg blister with device 1 inh inhalation DAILY 30 Days Qty: 60 12RF Linzess 290 mcg capsule 290 mcg PO QAM Qty: 30 6RF Discharge Orders: Discharge Order (Routine); Ordered 03/05/23 Ordered By: Marck Sumner Diet: Diabetic diet Activity on Discharge: As tolerated Stand Alone Forms: Patient Portal Discharge page Care Plan Goals: recovery from gastroenteririis Health Concerns: enterocolitis, Plan of Treatment: Drink plenty of fluid Assessment: follow up with your doctor in a week
[2023-03-05 17:12] VITALS: PULSE 59
== END 2023-03-05 17:45 | disposition home or self-care (01) | DRG 392 ==
LOC: HO.ED 02-28 00:29 → HO.EDOVER 02-28 00:30 → HO.S3 02-28 02:30
PROVIDERS: Internal Medicine; Admitting Provider Internal Medicine; Emergency Provider Internal Medicine; PCP Nurse Practitioner Primary Care; Visit Provider Internal Medicine
DX: A05.9 Bacterial foodborne intoxication, unspecified (principal); E66.9 Obesity, unspecified; Z68.33 Body mass index [BMI] 33.0-33.9, adult; J44.9 Chronic obstructive pulmonary disease, unspecified; I10 Essential (primary) hypertension; E78.5 Hyperlipidemia, unspecified; E11.65 Type 2 diabetes mellitus with hyperglycemia; E03.9 Hypothyroidism, unspecified; Z20.822 Contact with and (suspected) exposure to COVID-19; Z79.4 Long term (current) use of insulin; Z79.51 Long term (current) use of inhaled steroids; Z79.82 Long term (current) use of aspirin; Z79.84 Long term (current) use of oral hypoglycemic drugs; Z79.890 Hormone replacement therapy; Z79.899 Other long term (current) drug therapy
CPT/HCPCS: 0241U; 36415; 71045; 74176; 80048; 80053; 81001; 81003; 82947; 83605; 83690; 83735; 85025; 85027; 87493; 87507; 89055; 94640; 99285; J0456; J0696; J0737; J1170; J1836; J1885; J2270; J2405; J7120

== ENCOUNTER → 2023-02-27 23:48 | Outpatient (BNV) | payer OTHER, SELFPAY | PROVIDERS: Admitting Provider Internal Medicine; Emergency Provider Internal Medicine; PCP Nurse Practitioner Primary Care; Visit Provider Internal Medicine | DX: K52.1 Toxic gastroenteritis and colitis (principal); E11.65 Type 2 diabetes mellitus with hyperglycemia; Z79.4 Long term (current) use of insulin; I16.0 Hypertensive urgency; E66.9 Obesity, unspecified; Z68.35 Body mass index [BMI] 35.0-35.9, adult | CPT/HCPCS: 99223; 99232; 99239 ==

== ENCOUNTER → 2023-02-27 23:48 | Outpatient (BNV) | payer OTHER, SELFPAY | PROVIDERS: Admitting Provider Internal Medicine; Emergency Provider Internal Medicine; PCP Nurse Practitioner Primary Care; Visit Provider Internal Medicine Gastroenterology | DX: K52.1 Toxic gastroenteritis and colitis (principal); K52.9 Noninfective gastroenteritis and colitis, unspecified | CPT/HCPCS: 99223 ==

== ENCOUNTER 2023-04-01 11:00 | Outpatient (AMB) | payer OTHER, SELFPAY ==
--- NOTE | 2023-04-01 11:01 | MHC.OFFVIS ---
Intake Vital Signs 04/01/23 11:05 Height 5 ft 2 in Weight 199 lb 4.766 oz BMI 36.4 BP 130/82 Blood Pressure Location Lt brachial Position Sitting Intake Visit Reasons: F/U [id number] Intake Note: Patient present today to follow up on Type 2 Diabetes Mellitus. Last seen by Dr. Nickerson on 09/25/2022. Last Diabetic Eye exam: 12/2022 Last Podiatry Visit: None Random Glucose: 174 mg/dl HgA1C: 8.2% Driveway Sealer Required: Yes Driveway Sealer Language: Manager Credit Collections Name: Arlene medical staff Information Interpreted: non-clinical & clinical Accompanied by: Self / Same As Patient Allergies No Known Allergies [No Known Allergies*] Allergy (Verified 04/01/23 11:08) HPI HPI Comments History of Present Illness Details 68 YO Female with a PMHx of a NTMNG. She is seen in F/U for T2DM. The patient last saw Dr. Nickerson on 09/22/2022 1) T2DM: Current regimen Metformin 1000 mg PO BID, Jardiance 25 mg PO daily, Pioglitazone 15 mg PO daily, Ozempic 0.5 mg once a week and Lantus 34 units qHS. Unfortunately, the patient did not bring her glucometer to the follow-up appointment Reports low sugars never. Treats lows with juice. Does not check sugar after to insure it is rising. Does not have eyes checked yearly, last eye exam Dec 2022 , unsure if retinopathy. Has neuropathy, does not see podiatry. Unsure if nephropathy, on Lisinopril 40 mg PO daily. UAC 23.9 08/15/2022. Has HLD, on Rosuvastatin 40 mg PO daily. LDL 70 08/15/2022. Denies CAD. Diet: High in refined carbs. Weight: Stable Has not had diabetes education. 2) NTMNG and Hyperparathyroidism: She was complaining of compressive symptoms and underwent an US of the thyroid 11/20/20. This revealed a heterogenous thyroid gland, with multiple subcentimeter nodules. It appeared the nodules had been incorrectly measured, so I scheduled her for an FNA biopsy where I remeasured the nodules myself. She underwent FNA biopsy of a RMP 1.2 cm nodule 03/01/2021, which benign cytology. She does complain of mild intermittent dysphagia to solids, but otherwise has no complaints. She did insist on a total thyroidectomy, and is scheduled for this in November. Preoperative labs revealed elevated PTH. She was asked to repeat these, which confirmed what appears to be secondary hyperparathyroidism. She did not undergo her surgery for unknown reasons. Her labs 04/10/2021 with Calcium 9.1, Albumin 4.0, PTH 113 and Vitamin D 31.8. She denies ever having kidney stones. She does report she recently started taking Calcium 600 mg, but only takes this once a day and often forgets. She is poorly compliant with her Vitamin D as well. DEXA revealed osteopenia of the spine and the hip. DEXA: 05/14/2021 FINDINGS: AP SPINE L1-L4: Current: BMD 0.978 g/cm2, Z-score -0.9, T-score -1.7, osteopenia, 0.0% no change from previous, 4.4% increase from baseline (<5% change is not significant). Prior: BMD 0.978 g/cm2. Baseline: BMD 0.937 g/cm2. LEFT FEMUR, NECK: Current: BMD 0.850 g/cm2, Z-score -0.4, T-score -1.4, osteopenia. Prior: BMD 0.916 g/cm2. Baseline: BMD 0.971 g/cm2. LEFT FEMUR, TOTAL: Current: BMD 0.993 g/cm2, Z-score 0.6, T-score -0.1, normal, 2.3% decrease from previous, 8.8% decrease from baseline (<5% change is not significant). Prior: BMD 1.016 g/cm2. Baseline: BMD 1.089 g/cm2. LEFT FOREARM RADIUS 33%: BMD 0.809 g/cm2, Z-score 0.8, T-score -0.8, normal. Prior: Not previously measured. Thyroid US: Right Thyroid Lobe: 3.5 x 1.1 x 1.5 cm, volume 3.0 mL. Parenchyma: The gland echotexture is heterogeneous. Thyroid vascularity is normal. Left Thyroid Lobe: 3.7 x 2.0 x 1.5 cm, volume 5.8 mL. Parenchyma: The gland echotexture is heterogeneous. Thyroid vascularity is normal. Isthmus: 0.4 cm in maximum AP dimension. Estimated total number of nodules greater than or equal to 1 cm: 0. Automotive Software Engineer nodules are described as follows: 1. Location: Right mid. ?? ? Size: 0.78 x 0.85 x 0.67 cm, volume 0.23 mL. ?? ? Nodule characteristics: ?? ? Composition: Solid/almost completely solid (2). ?? ? Echogenicity: Isoechoic (1). ?? ? Shape: Taller than wide (3). ?? ? Margins: Smooth (0). ?? ? Echogenic Foci: None (0). ?? ? ACR TI-RADS total points: 6 ?? ? ACR TI-RADS category: 4 2. Location: Right mid. ?? ? Size: 0.56 x 0.4 x 0.45 cm, volume 0.05 mL. ?? ? Nodule characteristics: ?? ? Composition: Solid/almost completely solid (2). ?? ? Echogenicity: Isoechoic (1). ?? ? Shape: Not taller than wide (0). ?? ? Margins: Smooth (0). ?? ? Echogenic Foci: None (0). ?? ? ACR TI-RADS total points: 3 ?? ? ACR TI-RADS category: 3 NODES: No lymphadenopathy is seen in the tissue surrounding the thyroid gland. Labs: Laboratory Tests 05/16/21 05/16/21 06/05/21 15:37 15:37 12:10 Sodium Potassium Creatinine Estimated GFR Hgb A1c (Clinic) Hemoglobin A1c % Albumin LDL Cholesterol Di rect 25-OH Vitamin D To jordyn TSH Free T4 PTH Intact 95 H Calcium (PTH Intac t) 9.6 Ur 24 Hour Volume 1600 Ur Creatinine 24 H our 1.3 Microalb/Creat Rat io Ur Calcium 24 Hr 120 09/04/21 09/04/21 10/16/21 14:12 14:12 01:32 Sodium 140 Potassium 4.6 Creatinine 0.87 0.83 Estimated GFR > 60 > 60 Hgb A1c (Clinic) Hemoglobin A1c % Albumin 3.9 LDL Cholesterol Di rect 25-OH Vitamin D To jordyn 21.6 TSH 2.02 Free T4 1.09 PTH Intact 130 H Calcium (PTH Intac t) 9.1 Ur 24 Hour Volume Ur Creatinine 24 H our Microalb/Creat Rat io Ur Calcium 24 Hr 11/21/21 11/21/21 03/24/22 10:22 10:29 08:13 Sodium 140 Potassium 4.3 Creatinine 0.85 Estimated GFR > 60 Hgb A1c (Clinic) Hemoglobin A1c % Albumin LDL Cholesterol Di rect 170 H 25-OH Vitamin D To jordyn TSH Free T4 PTH Intact Calcium (PTH Intac t) Ur 24 Hour Volume Ur Creatinine 24 H our Microalb/Creat Rat io 55.1 Ur Calcium 24 Hr 06/02/22 08/15/22 08/15/22 13:18 12:35 12:35 Sodium Potassium Creatinine Estimated GFR Hgb A1c (Clinic) 9.6 H Hemoglobin A1c % 8.1 Albumin 4.0 LDL Cholesterol Di rect 25-OH Vitamin D To jordyn 33.8 TSH 2.94 Free T4 1.16 PTH Intact Calcium (PTH Intac t) Ur 24 Hour Volume Ur Creatinine 24 H our Microalb/Creat Rat io Ur Calcium 24 Hr 08/15/22 08/15/22 12:35 13:45 Sodium Potassium Creatinine Estimated GFR Hgb A1c (Clinic) Hemoglobin A1c % Albumin LDL Cholesterol Di rect 70 25-OH Vitamin D To jordyn TSH Free T4 PTH Intact 97 H Calcium (PTH Intac t) 9.7 Ur 24 Hour Volume Ur Creatinine 24 H our Microalb/Creat Rat io 23.9 Ur Calcium 24 Hr PFSH Medical History Cough due to SHANELLE inhibitor Eosinophilia Asthma HTN (hypertension) T2DM (type 2 diabetes mellitus) Erosive gastritis Leg edema, left Hyperparathyroidism Vitamin D deficiency Multinodular thyroid Thyroid nodule Skin lesion of chest wall Type 2 diabetes mellitus with diabetic polyneuropathy Fibromyalgia Depression with anxiety Cervical cancer Osteoarthritis of left knee Osteopenia GERD (gastroesophageal reflux disease) Diabetes mellitus with hyperglycemia Meir's disease Other specified acquired hypothyroidism Hyperlipidemia LDL goal <100 Essential hypertension Vitamin B12 deficiency Other obesity due to excess calories BMI 35.0-35.9,adult Surgical History History of cholecystectomy History of arthroplasty of right knee Hx of arthroscopy of left knee Hx of hysterectomy Hx of foot surgery History of bilateral carpal tunnel release Hx of bilateral oophorectomy History of esophagogastroduodenoscopy (EGD) Hx of colonoscopy Family History Father CVD (cardiovascular disease) Diabetes mellitus Stroke Mother Stroke Diabetes mellitus Breast cancer Hyperthyroidism Social History Household Members: Spouse Housing: House Are you a primary healthcare financial analyst to a significant other at home: No Do you presently have visiting nurse or other home services: No Alcohol intake: never Patient Tobacco Use Status: Never used Tobacco service: No 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al status: disabled 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: Right Handed Female Reproductive History Menstrual Age of Menarche: 11 Physical Exam Vital Signs: Last Vital Signs BP 130/82 04/01/23 11:05 BMI result Body Mass Index 36.4 Absence of Cushingoid features. Absence of acromegalic features. Neck exam reveals nl size thyroid about 15 gms. No thyroid nodules palpable. No carotid bruits present. Lungs CTA. Heart S1 S2, Reg R/R. No M/R/ G. Skin exam reveals absence of vitiligo or acanthosis nigricans. Abdominal exam reveals Soft NT/ND with NA BS. No organomegaly present. Neck Other: . Extrem Other: Visual exam of foot performed. No ulcerations or open lesions. No onchomycosis, no callouses.Pulses 2 + distally Sensation intact to monofilament exam. Vibratory sensation sensed is decreased with 128 Hz tuning fork Results AMB Hemoglobin A1c AMB Hemoglobin A1c 8.2 % Last Edit by Brenda Thomas on 04/01/23 11:34 Results Reviewed Results Reviewed: Laboratory Last Values Glucose (Clinic) 174 mg/dL (60-115) H 04/01/23 11:11 Assessment & Plan Assessment & Plan (1) Diabetes mellitus with hyperglycemia: Code(s): E11.65 - Type 2 diabetes mellitus with hyperglycemia Qualifiers: Diabetes mellitus type: type 2 Diabetes mellitus usp insulin use: with usp use Qualified Code(s): E11.65 - Type 2 diabetes mellitus with hyperglycemia; Z79.4 - local company intermodal truck driver (current) use of insulin Plan: This 68-year-old female with a history of type 2 diabetes being treated with metformin, pioglitazone, Jardiance, Ozempic and basal insulin with poor glycemic control with known microvascular complications namely neuropathy . Plan is to have the patient check her point cares pre and post meals or to reinstitute the Manuelito. Once this is done, could consider increasing the Ozempic dose was switching to Mounjaro . Will have patient follow up with hematology nurse educator. Will check lipid profile (2) Hyperparathyroidism: Code(s): E21.3 - Hyperparathyroidism, unspecified Plan: Differential diagnosis for increase PTH includes secondary hyperparathyroidism due low calcium intake or primary hyperparathyroidism. Will have patient check 24 hour urine for calcium and creatinine as well as 25 hydroxy vitamin-D, calcium, albumin PTH. Orders: Orders Parathyroid Hormone Intact Today E21.3 - Hyperparathyroidism, unspecified Calcium Today E21.3 - Hyperparathyroidism, unspecified AMB Hemoglobin A1c Today E11.9 - Type 2 diabetes mellitus without complications Lipid Panel Today E11.65 - Type 2 diabetes mellitus with hyperglycemia Vitamin D 25-OH Total Today E21.3 - Hyperparathyroidism, unspecified Albumin Level Today E21.3 - Hyperparathyroidism, unspecified Medications: New flash glucose scanning reader (FreeStyle Manuel[place] 2 [place]) As directed 1 ea 0RF flash glucose sensor (FreeStyle Manuelito 2 Sensor kit) As directed change every 14 days 2 ea 5RF Coding Level of Care Code Est Pt Level 4 (58439) Diagnoses Type 2 diabetes mellitus with hyperglycemia, with long-term current use of insulin E11.65; Z79.4 Diabetes mellitus type: type 2 Diabetes mellitus usp insulin use: with usp use Hyperparathyroidism E21.3
[2023-04-01 11:05] VITALS: BP 130/82; BMI 36.4
[2023-04-01 11:16] LABS: Glucose, Whole Blood 174 mg/dL (60-115)
== END 2023-04-01 11:48 | disposition home or self-care (01) ==
PROVIDERS: PCP Nurse Practitioner Primary Care; Visit Provider Internal Medicine Endocrinology, Diabetes & Metabolism
DX: E11.65 Type 2 diabetes mellitus with hyperglycemia (principal); Z79.4 Long term (current) use of insulin; E21.3 Hyperparathyroidism, unspecified; E11.9 Type 2 diabetes mellitus without complications
CPT/HCPCS: 99214

== ENCOUNTER → 2023-04-01 11:00 | Outpatient (BNVA) | payer OTHER, SELFPAY | PROVIDERS: PCP Nurse Practitioner Primary Care; Visit Provider Internal Medicine Endocrinology, Diabetes & Metabolism | DX: E11.65 Type 2 diabetes mellitus with hyperglycemia (principal); E21.3 Hyperparathyroidism, unspecified; Z79.4 Long term (current) use of insulin | CPT/HCPCS: 82947; 83036; 99212 ==

== ENCOUNTER 2023-04-08 14:00 | Outpatient (AMB) | payer OTHER, SELFPAY ==
--- NOTE | 2023-04-08 14:23 | A.OFFVIS_ITS ---
Intake Intake Visit Reasons: T2DM/CONFIRMED Signalling And Communications Engineer Required: Yes Signalling And Communications Engineer Language: Geochemical Manager Name: Stevenson [facility] [place] Accompanied by: Self / Same As Patient Allergies No Known Allergies [No Known Allergies*] Allergy (Verified 04/01/23 11:08) HPI Comprehensive Diabetes Asmnt Most Recent Diabetes Results: Creatinine 0.81 mg/dL (0.5-1.4) 03/05/23 Blood Urea Nitrogen 9 mg/dL (9-16) 03/05/23 Sodium 139 mmol/L (135-145) 03/05/23 Potassium 3.4 mmol/L (3.3-5.1) 03/05/23 Chloride 107 mmol/L (96-108) 03/05/23 Carbon Dioxide 25 mmol/L (22-29) 03/05/23 Calcium 8.5 mg/dL (8.4-10.2) 03/05/23 AST 18 U/L (5-31) 02/27/23 ALT 17 U/L (0-31) 02/27/23 Total Protein 7.4 g/dL (6.5-8.0) 02/27/23 Albumin 3.8 g/dL (3.5-5.0) 02/27/23 PFSH Medical History Cough due to SHANELLE inhibitor Eosinophilia Asthma HTN (hypertension) T2DM (type 2 diabetes mellitus) Erosive gastritis Leg edema, left Hyperparathyroidism Vitamin D deficiency Multinodular thyroid Thyroid nodule Skin lesion of chest wall Type 2 diabetes mellitus with diabetic polyneuropathy Fibromyalgia Depression with anxiety Cervical cancer Osteoarthritis of left knee Osteopenia GERD (gastroesophageal reflux disease) Diabetes mellitus with hyperglycemia Meir's disease Other specified acquired hypothyroidism Hyperlipidemia LDL goal <100 Essential hypertension Vitamin B12 deficiency Other obesity due to excess calories BMI 35.0-35.9,adult Surgical History History of cholecystectomy History of arthroplasty of right knee Hx of arthroscopy of left knee Hx of hysterectomy Hx of foot surgery History of bilateral carpal tunnel release Hx of bilateral oophorectomy History of esophagogastroduodenoscopy (EGD) Hx of colonoscopy Family History Father CVD (cardiovascular disease) Diabetes mellitus Stroke Mother Stroke Diabetes mellitus Breast cancer Hyperthyroidism Social History Household Members: Spouse Housing: House Are you a primary care coordination manager to a significant other at home: No Do you presently have visiting nurse or other home services: No Alcohol intake: never Patient Tobacco Use Status: Never used Tobacco service: No 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al status: disabled 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: Right Handed Female Reproductive History Menstrual Age of Menarche: 11 Assessment & Plan Assessment & Plan (1) Type 2 diabetes mellitus with diabetic polyneuropathy: Code(s): E11.42 - Type 2 diabetes mellitus with diabetic polyneuropathy Qualifiers: Diabetes mellitus penitentiary insulin use: with terminal operator use Qualified Code(s): E11.42 - Type 2 diabetes mellitus with diabetic polyneuropathy; Z79.4 - [facility] (current) use of insulin Plan: Patient at visit to set up an insert Manuelito 2 sensor Instructed patient sensors water proof you can shower, or swim do not submerge sensor in water for over 30 minutes Is sensor falls off cannot put back in you need to replace sensor, customer service number given to patient for sensor replacement Sensor placed on the R Abd Patient left visit with sensor in warmup Reviewed how to interpret trend arrows Reminded patient that to check finger sticks if symptoms do not match sensor reading. Discussed lag time between finger stick and sensor data.? Instructed patient she should always keep blood glucometer for backup testing if needed Reviewed delay of CGM from fingersticks Reminded pt that if symptoms do not match sensor still needs to check fingersticks. Patient Instructions: Instrucciones para el paciente: CGM proporciona informaci?n sobre el control de la glucosa en junior a lo cristela del d?a, incluidas la hiperglucemia y la hipoglucemia. Contin?e controlando la glucosa en junior seg?n las instrucciones. Siga las pautas de nutrici?n proporcionadas. Informe cualquier molestia de inmediato al proveedor de atenci?n m?dica. Mantente mitchell hidratado. Puede ba?arse, ducharse, nadar y hacer ejercicio mientras usa el sensor de glucosa. No sumerja el sensor de glucosa en agua alexandria m?s de 30 minutos. Retire el sensor para jacqueline resonancia magn?gris o jacqueline tomograf?a computarizada. Evite la m?quina de oseas X en los aeropuertos: retire el sensor o solicite la varita Coding Level of Care Code Est Pt Level 1 (28920) Diagnoses Type 2 diabetes mellitus with diabetic polyneuropathy, with long-term current use of insulin E11.42; Z79.4 Diabetes mellitus penitentiary insulin use: with penitentiary use
== END 2023-04-08 14:24 | disposition home or self-care (01) ==
PROVIDERS: PCP Nurse Practitioner Primary Care; Visit Provider Registered Nurse Diabetes Educator
DX: E11.42 Type 2 diabetes mellitus with diabetic polyneuropathy (principal); Z79.4 Long term (current) use of insulin

== ENCOUNTER → 2023-04-08 14:00 | Outpatient (BNVA) | payer OTHER, SELFPAY | PROVIDERS: PCP Nurse Practitioner Primary Care; Visit Provider Registered Nurse Diabetes Educator | DX: E11.42 Type 2 diabetes mellitus with diabetic polyneuropathy (principal); Z79.4 Long term (current) use of insulin | CPT/HCPCS: 99211 ==

== ENCOUNTER 2023-04-17 14:55 | Outpatient (REF) | payer OTHER, SELFPAY ==
[2023-04-17 18:00] LABS: Estimated Average Glucose 169 mg/dL; Hemoglobin A1c % 7.5 % (<6.0)
[2023-04-17 18:17] LABS: Albumin Level 4.2 g/dL (3.5-5.0); Blood Urea Nitrogen 8 mg/dL (9-16); C Reactive Protein 0.39 mg/dL (< or = 0.50); Calcium 9.5 mg/dL (8.4-10.2); Cholesterol 219 mg/dL (<200); Estimated Glomerular Filt Rate > 60; HDL Cholesterol 54 mg/dL (>40); LDL Cholesterol Calculated 135 mg/dL (<100); Triglycerides 154 mg/dL (<150)
[2023-04-17 18:32] LABS: Ferritin 179 ng/mL (10-250); Vitamin D 25-OH Total 30.5 ng/mL (>30)
[2023-04-17 18:43] LABS: Vitamin B12 341 pg/mL (200-900)
[2023-04-18 04:15] LABS: Parathyroid Hormone Intact 115.5 pg/mL (8.7-77.1)
[2023-04-20 20:38] LABS: Gliadin Deamidated IgA Ab <1.0 U/mL; Gliadin Deamidated IgG Ab <1.0 U/mL
[2023-04-21 15:29] LABS: Anti Nuclear Antibody Screen NEGATIVE (NEGATIVE)
[2023-04-22 03:28] LABS: Zinc 85 mcg/dL (60-130)
[2023-04-22 08:28] LABS: Transglutaminase Ab IgG <1.0 U/mL
== END 2023-04-17 14:56 | disposition home or self-care (01) ==
LOC: HO.LAB 14:55
PROVIDERS: Orthopaedic Surgery; Absent Provider Internal Medicine Gastroenterology; PCP Nurse Practitioner Primary Care; Referring Provider Internal Medicine Endocrinology, Diabetes & Metabolism; Visit Provider Registered Nurse Diabetes Educator
DX: Z01.812 Encounter for preprocedural laboratory examination (principal); E21.3 Hyperparathyroidism, unspecified; E11.65 Type 2 diabetes mellitus with hyperglycemia; D72.10 Eosinophilia, unspecified; K29.60 Other gastritis without bleeding; E53.8 Deficiency of other specified B group vitamins; K52.9 Noninfective gastroenteritis and colitis, unspecified; R79.82 Elevated C-reactive protein (CRP); K21.9 Gastro-esophageal reflux disease without esophagitis; R10.33 Periumbilical pain; G89.29 Other chronic pain
CPT/HCPCS: 36415; 80061; 82040; 82164; 82306; 82310; 82565; 82607; 82728; 82746; 83036; 83970; 84520; 84630; 86003; 86038; 86140; 86258; 86364; 99211

== ENCOUNTER 2023-04-17 14:55 | Outpatient (AMB) | payer OTHER, SELFPAY ==
--- NOTE | 2023-04-17 15:12 | MHC.AMDMED ---
Intake Intake Visit Reasons: DM Narcotics Agent Required: Yes Narcotics Agent Language: Exterior Interior Specialist Name: Sophie [facility] [place] Accompanied by: Self / Same As Patient Allergies No Known Allergies [No Known Allergies*] Allergy (Verified 04/01/23 11:08) HPI Comprehensive Diabetes Asmnt Most Recent Diabetes Results: Creatinine 0.81 mg/dL (0.5-1.4) 03/05/23 Blood Urea Nitrogen 9 mg/dL (9-16) 03/05/23 Sodium 139 mmol/L (135-145) 03/05/23 Potassium 3.4 mmol/L (3.3-5.1) 03/05/23 Chloride 107 mmol/L (96-108) 03/05/23 Carbon Dioxide 25 mmol/L (22-29) 03/05/23 Calcium 8.5 mg/dL (8.4-10.2) 03/05/23 AST 18 U/L (5-31) 02/27/23 ALT 17 U/L (0-31) 02/27/23 Total Protein 7.4 g/dL (6.5-8.0) 02/27/23 Albumin 3.8 g/dL (3.5-5.0) 02/27/23 PFSH Medical History Cough due to SHANELLE inhibitor Eosinophilia Asthma HTN (hypertension) T2DM (type 2 diabetes mellitus) Erosive gastritis Leg edema, left Hyperparathyroidism Vitamin D deficiency Multinodular thyroid Thyroid nodule Skin lesion of chest wall Type 2 diabetes mellitus with diabetic polyneuropathy Fibromyalgia Depression with anxiety Cervical cancer Osteoarthritis of left knee Osteopenia GERD (gastroesophageal reflux disease) Diabetes mellitus with hyperglycemia Meir's disease Other specified acquired hypothyroidism Hyperlipidemia LDL goal <100 Essential hypertension Vitamin B12 deficiency Other obesity due to excess calories BMI 35.0-35.9,adult Surgical History History of cholecystectomy History of arthroplasty of right knee Hx of arthroscopy of left knee Hx of hysterectomy Hx of foot surgery History of bilateral carpal tunnel release Hx of bilateral oophorectomy History of esophagogastroduodenoscopy (EGD) Hx of colonoscopy Family History Father CVD (cardiovascular disease) Diabetes mellitus Stroke Mother Stroke Diabetes mellitus Breast cancer Hyperthyroidism Social History Household Members: Spouse Housing: House Are you a primary care services manager to a significant other at home: No Do you presently have visiting nurse or other home services: No Alcohol intake: never Patient Tobacco Use Status: Never used Tobacco service: No 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al status: disabled 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: Right Handed Female Reproductive History Menstrual Age of Menarche: 11 Assessment & Plan Assessment & Plan (1) Type 2 diabetes mellitus with diabetic polyneuropathy: Code(s): E11.42 - Type 2 diabetes mellitus with diabetic polyneuropathy Qualifiers: Diabetes mellitus prison insulin use: with intermediate manager use Qualified Code(s): E11.42 - Type 2 diabetes mellitus with diabetic polyneuropathy; Z79.4 - long term acute care registered nurse (current) use of insulin Plan: Patient at visit reinsert Manuelito 2 sensor Instructed patient to call [facility] for replacement sensor that was knocked off when she was unloading her dryer at home. Instructed patient sensors water proof you can shower, or swim do not submerge sensor in water for over 30 minutes Is sensor falls off cannot put back in you need to replace sensor, customer service number given to patient for sensor replacement Sensor placed on the Right upper Abd Patient left visit with sensor in warmup Reviewed how to interpret trend arrows Reminded patient that to check finger sticks if symptoms do not match sensor reading. Discussed lag time between finger stick and sensor data.? Instructed patient she should always keep blood glucometer for backup testing if needed Reviewed delay of CGM from fingersticks Reminded pt that if symptoms do not match sensor still needs to check fingersticks. Watch patient insert sensor at visit Patient Instructions: Instrucciones para el paciente: CGM proporciona informaci?n sobre el control de la glucosa en junior a lo cristela del d?a, incluidas la hiperglucemia y la hipoglucemia. Contin?e controlando la glucosa en junior seg?n las instrucciones. Siga las pautas de nutrici?n proporcionadas. Informe cualquier molestia de inmediato al proveedor de atenci?n m?dica. Mantente mitchell hidratado. Puede ba?arse, ducharse, nadar y hacer ejercicio mientras usa el sensor de glucosa. No sumerja el sensor de glucosa en agua alexandria m?s de 30 minutos. Retire el sensor para jacqueline resonancia magn?gris o jacqueline tomograf?a computarizada. Evite la m?quina de oseas X en los aeropuertos: retire el sensor o solicite la varita Coding Level of Care Code Est Pt Level 1 (63215) Diagnoses Type 2 diabetes mellitus with diabetic polyneuropathy, with long-term current use of insulin E11.42; Z79.4 Diabetes mellitus intermediate manager insulin use: with prison use
== END 2023-04-17 15:13 | disposition home or self-care (01) ==
PROVIDERS: PCP Nurse Practitioner Primary Care; Visit Provider Registered Nurse Diabetes Educator
DX: E11.42 Type 2 diabetes mellitus with diabetic polyneuropathy (principal); Z79.4 Long term (current) use of insulin

== ENCOUNTER 2023-04-19 07:00 | Outpatient (REF) | payer OTHER, SELFPAY ==
[2023-04-21 08:04] LABS: Creatinine, mg/dL 36.51
[2023-04-21 10:33] LABS: Creatinine, 24Hr Urine 0.4 G/Day (1.0-2.0); Total Volume 24 Hour Urine 1175 mL
[2023-04-21 10:57] LABS: Adenovirus F 40/41 Not Detected (Not Detect.); Astrovirus Not Detected (Not Detect.); Campylobacter Not Detected (Not Detect.); Cryptosporidium Not Detected (Not Detect.); Cyclospora cayetanensis Not Detected (Not Detect.); E. coli EAEC Not Detected (Not Detect.); E. coli EPEC Not Detected (Not Detect.); E. coli ETEC Not Detected (Not Detect.); E. coli STEC Not Detected (Not Detect.); Entamoeba histolytica Not Detected (Not Detect.); Giardia lamblia Not Detected (Not Detect.); Norovirus GI/GII Not Detected (Not Detect.); Plesiomonas shigelloides Not Detected (Not Detect.); Rotavirus A Not Detected (Not Detect.); Salmonella Not Detected (Not Detect.); Sapovirus Not Detected (Not Detect.); Shigella sp./EIEC Not Detected (Not Detect.); Vibrio Not Detected (Not Detect.); Vibrio Cholerae Not Detected (Not Detect.); Yersinia enterocolitica Not Detected (Not Detect.)
[2023-04-22 19:43] LABS: Calcium, 24 Hr Urine 88 mg/24 h; Calcium/Creatinine Ratio 192 mg/g creat (30-275); Creatinine 24Hr Urine 0.46 g/24 h (0.50-2.15)
[2023-04-23 17:13] LABS: Fecal Fat Qualitative Normal (Normal)
[2023-05-05 18:08] LABS: Pancreatic Elastase-1 >500 mcg/g
== END 2023-04-19 07:01 | disposition home or self-care (01) ==
LOC: HO.LNP 07:00
PROVIDERS: Internal Medicine Endocrinology, Diabetes & Metabolism; Visit Provider Internal Medicine Gastroenterology
DX: E21.3 Hyperparathyroidism, unspecified (principal)
CPT/HCPCS: 82340; 82570; 82656; 82705; 87329; 87507

== ENCOUNTER 2023-04-20 15:28 | Outpatient (REF) | payer OTHER, SELFPAY | END 2023-04-20 15:29 | disposition home or self-care (01) | LOC: HO.LNP 15:28 | PROVIDERS: Visit Provider Internal Medicine Gastroenterology | DX: Z13.89 Encounter for screening for other disorder (principal) ==

== ENCOUNTER 2023-04-30 13:46 | Outpatient (AMB) | payer OTHER, SELFPAY ==
--- NOTE | 2023-04-30 14:18 | A.OFFVIS_ITS ---
Intake Intake Visit Reasons: 30 min/CONFIRMED Ice Cream Man Required: Yes Ice Cream Man Language: Professional Poker Player Name: Cori [facility] [place] Accompanied by: Other Relationship Allergies No Known Allergies [No Known Allergies*] Allergy (Verified 04/01/23 11:08) HPI Comprehensive Diabetes Asmnt Most Recent Diabetes Results: Hemoglobin A1c 7.7 % 06/15/18 Microalb/Creat Ratio 23.9 ug/mg cr 08/15/22 Cholesterol 219 mg/dL (<200) H 04/17/23 HDL Cholesterol 54 mg/dL (>40) 04/17/23 Triglycerides 154 mg/dL (<150) H 04/17/23 Creatinine 0.85 mg/dL (0.5-1.4) 04/17/23 Blood Urea Nitrogen 8 mg/dL (9-16) L 04/17/23 Sodium 139 mmol/L (135-145) 03/05/23 Potassium 3.4 mmol/L (3.3-5.1) 03/05/23 Chloride 107 mmol/L (96-108) 03/05/23 Carbon Dioxide 25 mmol/L (22-29) 03/05/23 Calcium 9.5 mg/dL (8.4-10.2) 04/17/23 AST 18 U/L (5-31) 02/27/23 ALT 17 U/L (0-31) 02/27/23 Total Protein 7.4 g/dL (6.5-8.0) 02/27/23 Albumin 4.2 g/dL (3.5-5.0) 04/17/23 [facility] Medical History Cough due to SHANELLE inhibitor Eosinophilia Asthma HTN (hypertension) T2DM (type 2 diabetes mellitus) Erosive gastritis Leg edema, left Hyperparathyroidism Vitamin D deficiency Multinodular thyroid Thyroid nodule Skin lesion of chest wall Type 2 diabetes mellitus with diabetic polyneuropathy Fibromyalgia Depression with anxiety Cervical cancer Osteoarthritis of left knee Osteopenia GERD (gastroesophageal reflux disease) Diabetes mellitus with hyperglycemia Meir's disease Other specified acquired hypothyroidism Hyperlipidemia LDL goal <100 Essential hypertension Vitamin B12 deficiency Other obesity due to excess calories BMI 35.0-35.9,adult Surgical History History of cholecystectomy History of arthroplasty of right knee Hx of arthroscopy of left knee Hx of hysterectomy Hx of foot surgery History of bilateral carpal tunnel release Hx of bilateral oophorectomy History of esophagogastroduodenoscopy (EGD) Hx of colonoscopy Family History Father CVD (cardiovascular disease) Diabetes mellitus Stroke Mother Stroke Diabetes mellitus Breast cancer Hyperthyroidism Social History Household Members: Spouse Housing: House Are you a primary career development associate to a significant other at home: No Do you presently have visiting nurse or other home services: No Alcohol intake: never Patient Tobacco Use Status: Never used Tobacco service: No 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al status: disabled 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: Right Handed Female Reproductive History Menstrual Age of Menarche: 11 Assessment & Plan Assessment & Plan (1) T2DM (type 2 diabetes mellitus): Code(s): E11.9 - Type 2 diabetes mellitus without complications Qualifiers: Diabetes mellitus complication status: with hyperglycemia Plan: Personal Continuous Glucose Monitor: Patients CGM information reviewed Reviewed patient's sensor data: Hypoglycemia: ? 0% Hyperglycemia:? 21% Time in Range:? 79% Average glucose for the last 2 weeks?149 mg/dL Instructed patient she needs to scan sensor every 4-6 hours while awake Although glucose levels are within target, sensor use is at 68% Reviewed how to interpret trend arrows Reminded patient that to check finger sticks if symptoms do not match sensor reading. Discussed lag time between finger stick and sensor data.? Patient able to insert sensor independently at home without issue.? Patient Instructions: Patient will follow-up with toilet attendant in 2 weeks for sensor insertion instructions Coding Level of Care Code Est Pt Level 1 (81197) Diagnoses T2DM (type 2 diabetes mellitus) E11.9 Diabetes mellitus complication status: with hyperglycemia
== END 2023-04-30 14:20 | disposition home or self-care (01) ==
PROVIDERS: PCP Nurse Practitioner Primary Care; Visit Provider Registered Nurse Diabetes Educator
DX: E11.9 Type 2 diabetes mellitus without complications (principal)

== ENCOUNTER → 2023-04-30 13:46 | Outpatient (BNVA) | payer OTHER, SELFPAY | PROVIDERS: PCP Nurse Practitioner Primary Care; Visit Provider Registered Nurse Diabetes Educator | DX: E11.65 Type 2 diabetes mellitus with hyperglycemia (principal) | CPT/HCPCS: 99211 ==

== ENCOUNTER 2023-05-13 14:35 | Outpatient (REF) | payer OTHER, SELFPAY ==
--- NOTE | ~2023-05-13 | CT_ITS ---
EXAMINATION: CT ENTEROGRAPHY ABDOMEN AND PELVIS WITH CONTRAST CLINICAL INFORMATION: Periumbilical pain COMPARISON: 02/24/2023 TECHNIQUE: Study performed with oral VoLumen (1350 mL) and 480 mL of water to distend the abdomen. The patient was injected with 85 mL Omnipaque 350 intravenous contrast which was administered without adverse effect. Coronal and sagittal reformatted images were obtained at the technologist's workstation. This CT examination was performed using dose optimization techniques as appropriate, variously including the following: *Automated exposure control *Adjustment of mA and/or kV according to patient size (this includes techniques or standardized protocols for targeted exams where dose is matched to indication/reason for exam; i.e. extremities or head) *Use of iterative reconstruction technique DLP: 556 mGy-cm FINDINGS: GASTROINTESTINAL FINDINGS: Stomach: Well-distended and normal in appearance. Small intestine: Satisfactorily distended and normal in appearance. Large intestine: There are changes of scattered diverticulosis without evidence of colitis or diverticulitis more prominent diverticulosis seen through the sigmoid colon. Appendix is unremarkable. Additional findings: No abnormal enhancement of the vasa recta or significant mesenteric or retroperitoneal lymphadenopathy is seen. No abdominal abscess or fistulous tract demonstrated. ABDOMINAL AND PELVIC CT FINDINGS: Liver, gallbladder, biliary tract: Liver is unremarkable. Gallbladder is surgically absent. Pancreas: There are no evidence of pancreatitis, pancreatic masses or ductal dilatation Spleen: Unremarkable Adrenal glands and kidneys: Adrenal glands revealed no nodularity. Right kidney is unremarkable. Left kidney demonstrate small upper pole and larger lower pole simple cysts. Ureters and bladder: Ureters are not dilated. Urinary bladder is well distended without wall thickening, or stones. Lymphovascular structures: There is no abdominal aortic aneurysmal dilatation. No evidence of mesenteric lymphadenopathy. Bones: No lytic or blastic lesions seen. Lung bases: Clear CT/CT enterography IMPRESSION: 1. Diverticulosis without diverticulitis. 2. Status post cholecystectomy.
[2023-05-13] MEDS: iohexoL 350 MG/ML 100 ML INFUS..BTL IV (16:16)
[2023-05-13] MEDS: Sorbitol/Mannit/Xanth Imaging 500 ML LIQUID 1500 ML PO (16:19)
== END 2023-05-13 14:36 | disposition home or self-care (01) ==
LOC: HO.CT 14:35
PROVIDERS: PCP Nurse Practitioner Primary Care; Visit Provider Internal Medicine Gastroenterology
DX: R10.33 Periumbilical pain (principal); D72.10 Eosinophilia, unspecified; K29.60 Other gastritis without bleeding; E53.8 Deficiency of other specified B group vitamins; K52.9 Noninfective gastroenteritis and colitis, unspecified
CPT/HCPCS: 74177; Q9967

== ENCOUNTER 2023-05-14 11:49 | Outpatient (AMB) | payer OTHER, SELFPAY ==
--- NOTE | 2023-05-14 12:25 | A.OFFVIS_ITS ---
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 Required: Yes Separator Operator Shellfish Meats Language: Hat Marker Name: [place] [facility] [place] Information Interpreted: non-clinical & clinical Accompanied by: Self / Same As Patient Allergies No Known Allergies [No Known Allergies*] Allergy (Verified 04/01/23 11:08) HPI Comprehensive Diabetes Asmnt Most Recent Diabetes Results: Cholesterol 219 mg/dL (<200) H 04/17/23 HDL Cholesterol 54 mg/dL (>40) 04/17/23 Triglycerides 154 mg/dL (<150) H 04/17/23 Creatinine 0.85 mg/dL (0.5-1.4) 04/17/23 Blood Urea Nitrogen 8 mg/dL (9-16) L 04/17/23 Calcium 9.5 mg/dL (8.4-10.2) 04/17/23 Albumin 4.2 g/dL (3.5-5.0) 04/17/23 [facility] Medical History Cough due to SHANELLE inhibitor Eosinophilia Asthma HTN (hypertension) T2DM (type 2 diabetes mellitus) Erosive gastritis Leg edema, left Hyperparathyroidism Vitamin D deficiency Multinodular thyroid Thyroid nodule Skin lesion of chest wall Type 2 diabetes mellitus with diabetic polyneuropathy Fibromyalgia Depression with anxiety Cervical cancer Osteoarthritis of left knee Osteopenia GERD (gastroesophageal reflux disease) Diabetes mellitus with hyperglycemia Meir's disease Other specified acquired hypothyroidism Hyperlipidemia LDL goal <100 Essential hypertension Vitamin B12 deficiency Other obesity due to excess calories BMI 35.0-35.9,adult Surgical History History of cholecystectomy History of arthroplasty of right knee Hx of arthroscopy of left knee Hx of hysterectomy Hx of foot surgery History of bilateral carpal tunnel release Hx of bilateral oophorectomy History of esophagogastroduodenoscopy (EGD) Hx of colonoscopy Family History Father CVD (cardiovascular disease) Diabetes mellitus Stroke Mother Stroke Diabetes mellitus Breast cancer Hyperthyroidism Social History Household Members: Spouse Housing: House Are you a primary care program resident to a significant other at home: No Do you presently have visiting nurse or other home services: No Alcohol intake: never Patient Tobacco Use Status: Never used Tobacco service: No 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al status: disabled 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: Right Handed Female Reproductive History Menstrual Age of Menarche: 11 Assessment & Plan Assessment & Plan (1) T2DM (type 2 diabetes mellitus): Code(s): E11.9 - Type 2 diabetes mellitus without complications Qualifiers: Diabetes mellitus complication status: with hyperglycemia Plan: Personal Continuous Glucose Monitor: Patients CGM information reviewed Reviewed patient's sensor data: Hypoglycemia: ? 0% Hyperglycemia:? 11% Time in Range:88%? Average glucose for the last 2 weeks?135 mg/dL Patient had several episodes of hypoglycemia, reviewed with patient how to treat hypoglycemia with rule of 15s Patient reports she treats hypoglycemia with orange juice Rule of 15 handout given in Romansh Patient is having left knee replacement 1st week of lunch 2023, reviewed with patient the effects that surgery and infection can have on glucose levels. Instructed patient if hypoglycemia continues to contact allied health professional, if patient is experiencing hyperglycemia for more than 3 days in a row she is instructed to call provider or allied health professional Reviewed how to interpret trend arrows Reminded patient that to check finger sticks if symptoms do not match sensor reading. Discussed lag time between finger stick and sensor data.? Patient able to insert sensor independently in the office visit without issue.? Patient Instructions: Reducir Lantus de 38 unidades a 34 unidades. Seguimiento con educador en diabetes en 2 meses. Comun?quese con un educador en diabetes si los niveles bajos de az?car en junior contin?an Coding Level of Care Code Est Pt Level 1 (95962) Diagnoses T2DM (type 2 diabetes mellitus) E11.9 Diabetes mellitus complication status: with hyperglycemia
== END 2023-05-14 12:31 | disposition home or self-care (01) ==
PROVIDERS: PCP Nurse Practitioner Primary Care; Visit Provider Registered Nurse Diabetes Educator
DX: E11.9 Type 2 diabetes mellitus without complications (principal)

== ENCOUNTER → 2023-05-14 11:49 | Outpatient (BNVA) | payer OTHER, SELFPAY | PROVIDERS: PCP Nurse Practitioner Primary Care; Visit Provider Registered Nurse Diabetes Educator | DX: E11.9 Type 2 diabetes mellitus without complications (principal) | CPT/HCPCS: 99211 ==

== ENCOUNTER → 2023-05-15 13:35 | Outpatient (BNVA) | payer OTHER, SELFPAY | PROVIDERS: PCP Nurse Practitioner Primary Care; Visit Provider Orthopaedic Surgery ==

== ENCOUNTER 2023-05-20 07:54 | Outpatient (AMB) | payer OTHER, SELFPAY ==
[2023-05-20 08:28] VITALS: BP 150/90; PULSE 57; O2SAT 97; BMI 36.2
--- NOTE | 2023-05-20 08:28 | MHC.OFFVIS ---
Intake Vital Signs 05/20/23 08:28 Height 5 ft 2 in Weight 198 lb BMI 36.2 BP 150/90 H Blood Pressure Location Lt brachial Position Sitting Pulse 57 Pulse Source Pulse Oximeter Pulse Oximetry (%) 97 Oxygen Delivery Method Room Air Intake Visit Reasons: Tierra keyes/Dr. Weems on 05/26/23 Allergies hazelnut Allergy (Mild, Verified 05/20/23 08:29) per allergy skin test peanut Allergy (Mild, Verified 05/20/23 08:29) per allergy skin test HPI HPI Comments History of Present Illness Details The patient is a 67 in a with a history of asthma/COPD. Apparently back in February she started developing increasing chest tightness coughing wheezing. She was evaluated in the ER. There she underwent a viral panel that was positive for enterovirus. She was diagnosed with enteroviral and COPD exacerbation. Patient was treated accordingly and she was discharged. More recently in March she had another episode of shortness of breath and chest tightness which she went to the ER. This time her viral panel was negative although she did have significant eosinophilia suggesting an allergic reaction. The patient is a lifelong nonsmoker. She also has diabetes. On examination she does have some wheezing. Therefore she will need maintenance therapy. Will plan to do allergy testing and pulmonary function studies. 09/29/2022 the patient is here for a pulmonary follow-up visit. The patient overall is doing well from a respiratory status. She is responding well to the Trelegy inhaler. She has a rescue inhaler that she has not required. The patient has not had any recent imaging studies. She did have blood work including allergy testing demonstrating some allergies but minimal and do not require any additional therapies at this time. The patient still having issues with a dry cough. I do believe she has an age related cough and therefore she should be switched over to an ARB. She will talk to her primary care doctor about that. But clinically the patient is doing well. We did look at her pulmonary function studies. She does have a mild restrictive ventilatory defect likely from an elevated BMI otherwise no significant findings. The patient did have a nebulizer but it broke. She does need a replacement. I will request a nebulizer from the local [employer] company at this time. 05/20/2023 the patient is here for a preop evaluation. The patient has been very well from a respiratory status. She has been using the Trelegy inhaler with good effect. Has not had to use her rescue inhaler. Back in February she was evaluated in the hospital with worsening respiratory symptoms and GI complaints. She was treated for GI inflammatory process in addition to that she did have a chest x-ray demonstrating retrocardiac airspace disease suggesting pneumonia. Her viral panel was negative for flu a COVID or RSV. The patient is treated back in February and she quickly improved. She denies any underlying residual symptoms. She is having issues with her left knee. She already had a right knee operated. She is very limited due to her left knee. She is scheduled for total knee replacement. Clinically the patient is doing very well from a respiratory status. We did look at her last PFTs from last year which demonstrated no evidence of obstruction and mild restriction likely due to her body habitus. No need for additional spirometry studies at this time. Will go ahead and repeat her chest x-ray. The patient right now be able to proceed with surgery and anesthesia from a pulmonary standpoint. [facility] Medical History (Updated 05/20/23 @ 08:38 by Osvaldo Arita MD) Chronic restrictive lung disease Obesity (BMI 30.0-34.9) Cough due to SHANELLE inhibitor Eosinophilia Asthma HTN (hypertension) T2DM (type 2 diabetes mellitus) Erosive gastritis Leg edema, left Hyperparathyroidism Vitamin D deficiency Multinodular thyroid Thyroid nodule Skin lesion of chest wall Type 2 diabetes mellitus with diabetic polyneuropathy Fibromyalgia Depression with anxiety Cervical cancer Osteoarthritis of left knee Osteopenia GERD (gastroesophageal reflux disease) Diabetes mellitus with hyperglycemia Meir's disease Other specified acquired hypothyroidism Hyperlipidemia LDL goal <100 Essential hypertension Vitamin B12 deficiency Other obesity due to excess calories BMI 35.0-35.9,adult Surgical History (Updated 05/18/23 @ 10:13 by Cleo Lewis RN) Hx of elbow surgery Hx of hand surgery Hx of arthroscopic knee surgery History of cholecystectomy History of arthroplasty of right knee Hx of hysterectomy Hx of foot surgery History of bilateral carpal tunnel release Hx of bilateral oophorectomy History of esophagogastroduodenoscopy (EGD) Hx of colonoscopy Family History Father CVD (cardiovascular disease) Diabetes mellitus Stroke Mother Stroke Diabetes mellitus Breast cancer Hyperthyroidism Social History Household Members: Spouse Housing: House Housing Other:: 2nd floor-2 family house Are you a primary day care center director to a significant other at home: No Do you presently have visiting nurse or other home services: Yes (home health aid) Alcohol intake: never Patient Tobacco Use Status: Never used Tobacco service: No 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al status: disabled 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: Right Handed Female Reproductive History Menstrual Age of Menarche: 11 Review of Systems Const Denies fatigue, Denies fever(s), Denies night sweats, Denies poor appetite and Denies weight loss ENT Reports Normal hearing present Card Denies chest pain and Reports dyspnea on exertion Resp Denies chest congestion, Reports cough, Reports dyspnea on exertion and Denies wheezing GI Reports constipation and Reports heartburn Musc Reports as per HPI, Reports arthralgias, Reports joint swelling and Reports limited range of motion Skin/Breast Denies rash Neuro Reports Normal hearing present and Denies Abnormal speech present Endo Denies fatigue Aller/Immun Denies wheezing Physical Exam Vital Signs: Last Vital Signs Pulse 57 05/20/23 08:28 BP 150/90 H 05/20/23 08:28 Pulse Ox 97 05/20/23 08:28 Oxygen Delivery Method Room Air 05/20/23 08:28 BMI result Body Mass Index 36.2 Const General: comfortable HEENT Head: Yes normocephalic and Yes atraumatic Eyes Pupils: Equal, round and reactive pupils present Neck Neck: Yes supple Thyroid: Thyroid normal Chest Chest palpation & inspection: normal inspection of the chest Resp Effort & Inspection: normal respiratory effort Auscultation: no crackles, no rales, no rhonchi, no wheezes and diminished lung sounds Cardio Rate: regular rate Rhythm: regular rhythm Heart sounds: Normal, physiologic split S2 sound present GI Palpation (GI): Soft to palpation Skin General skin exam: no rashes or lesions noted Neuro Cranial nerves: Yes Equal, round and reactive pupils present and Yes Normal hearing present Speech: No Abnormal speech present Extrem General: No clubbing, No cyanosis and No edema Psych Appearance: grossly normal and well kempt Assessment & Plan Assessment & Plan (1) Pre-op chest exam: Code(s): Z01.811 - Encounter for preprocedural respiratory examination (2) Asthma: Code(s): J45.909 - Unspecified asthma, uncomplicated Qualifiers: Asthma severity: moderate Asthma persistence: persistent Asthma complication type: uncomplicated Qualified Code(s): J45.40 - Moderate persistent asthma, uncomplicated (3) Eosinophilia: Code(s): D72.10 - Eosinophilia, unspecified Qualifiers: Eosinophilia type: unspecified eosinophilia Qualified Code(s): D72.10 - Eosinophilia, unspecified (4) Chronic restrictive lung disease: Code(s): J98.4 - Other disorders of lung Plan The patient is scheduled to undergo orthopedic surgery. The patient does carry a diagnosis of asthma. Based on her pulmonary function studies she does not have a fixed obstruction. She does have a mild restrictive process likely from her body habitus. The patient does have mild risk for perioperative pulmonary complications which includes; bronchospasms, atelectasis, hypoxia and pneumonia. The patient is medically optimized with current respiratory medications. She may be able to proceed with anesthesia and surgery at this point. continue Trelegy BRUNA as needed Consider changing SHANELLE to ARB Benzonates as needed CXR F/U 8-12 months Orders: Orders XR chest 2V Today J98.4 - Other disorders of lung Coding Level of Care Code Est Pt Level 4 (77704) Diagnoses Pre-op chest exam Z01.811 Moderate persistent asthma without complication J45.40 Asthma severity: moderate Asthma persistence: persistent Asthma complication type: uncomplicated Eosinophilia, unspecified type D72.10 Eosinophilia type: unspecified eosinophilia Chronic restrictive lung disease J98.4 Time Spent (min) 17
== END 2023-05-20 08:28 | disposition home or self-care (01) ==
PROVIDERS: PCP Nurse Practitioner Primary Care; Visit Provider Hospitalist
DX: Z01.811 Encounter for preprocedural respiratory examination (principal); J45.40 Moderate persistent asthma, uncomplicated; D72.10 Eosinophilia, unspecified; J98.4 Other disorders of lung
CPT/HCPCS: 99214

== ENCOUNTER 2023-05-20 07:54 | Outpatient (REF) | payer OTHER, SELFPAY ==
--- NOTE | ~2023-05-20 | XR_ITS ---
EXAMINATION: XR CHEST 2 VIEWS CLINICAL INFORMATION: Other disorders of lung. COMPARISON: Chest radiograph dated 03/05/2023. TECHNIQUE: Frontal and lateral views of the chest were obtained. FINDINGS: The heart, great vessels, pulmonary vasculature and mediastinum are normal. The lungs show no focal infiltrate, effusion or pneumothorax. There is biapical pleural scarring. There is no acute osseous abnormality. There is multi-level lower thoracic spondylosis. There are right upper quadrant surgical clips. XR/XR chest 2V IMPRESSION: No active cardiopulmonary disease.
== END 2023-05-20 07:55 | disposition home or self-care (01) ==
LOC: HO.XRAY 07:54
PROVIDERS: PCP Nurse Practitioner Primary Care; Visit Provider Hospitalist
DX: Z01.811 Encounter for preprocedural respiratory examination (principal); J98.4 Other disorders of lung; J45.40 Moderate persistent asthma, uncomplicated; J44.9 Chronic obstructive pulmonary disease, unspecified; D72.10 Eosinophilia, unspecified
CPT/HCPCS: 71046; 99212

== ENCOUNTER 2023-05-21 13:13 | Outpatient (AMB) | payer OTHER, SELFPAY ==
--- NOTE | 2023-05-21 13:19 | MHC.OFFVIS ---
Intake Vital Signs 05/21/23 13:20 Height 5 ft 2 in Weight 198 lb BMI 36.2 Intake Visit Reasons: Preop LT TKA 05/26/23 NE Intake Note: Lois a 68 year old female presents today for a preoperative left TKA on 05/26/23 NE. Pain management agreement reviewed and signed. Montenegrin version as well . Allergies hazelnut Allergy (Mild, Verified 05/21/23 13:20) per allergy skin test peanut Allergy (Mild, Verified 05/21/23 13:20) per allergy skin test Medication List - Last Reconciled 05/21/23 by Catarino Nava PA-C acetaminophen ER 650 mg PO Q8H PRN albuterol sulfate 90 mcg/actuation (Ventolin HFA) 90 mcg inhalation Q4H PRN albuterol sulfate 1 amp inhalation Q4H PRN aspirin 1 tab PO DAILY blood sugar diagnostic As directed cholecalciferol (vitamin D3) 50 mcg PO QAM clonidine HCl 0.2 mg PO BEDTIME cyanocobalamin (vitamin B-12) 1,000 mcg PO DAILY dexlansoprazole 60 mg PO DAILY@0630 empagliflozin (Jardiance) 25 mg PO QAM flash glucose scanning reader (Retrofit AmericaStyle [place] 2 [place]) As directed flash glucose sensor (FreeStyle [place] 2 Sensor kit) As directed change every 14 days hzxmzsfnrvj-olevqwgdk-gxtwnaxl 200-62.5-25 mcg (Trelegy Ellipta) 1 inh inhalation DAILY 30 days furosemide 20 mg PO DAILY gabapentin 300 mg (3 x 100 mg) PO BEDTIME hydrochlorothiazide 50 mg PO DAILY hydroxyzine HCl 50 mg PO Q8H PRN insulin glargine (Lantus Solostar U-100 Insulin) 34 units subcut BEDTIME lancets (OneTouch Delica Plus Lancet) As directed levothyroxine 75 mcg PO DAILY@0600 linaclotide (Linzess) 290 mcg PO QAM lisinopril 40 mg PO DAILY meclizine 25 mg PO DAILY PRN mecobalamin (vitamin B12) 1,000 mcg PO DAILY 30 days metformin ER 1,000 mg (2 x 500 mg) PO BID 30 days metoprolol succinate ER 200 mg PO DAILY roxskgehcyrd-heec-fuewx acid 18-400 mg-mcg (Certavite-Antioxidant) 1 tab PO DAILY ondansetron 4 mg PO Q6-8H PRN pioglitazone 15 mg PO QAM rosuvastatin 40 mg PO DAILY semaglutide (Ozempic) 0.5 mg subcut MO@0900 tramadol 50 mg PO TID PRN trazodone 300 mg PO BEDTIME venlafaxine ER 150 mg PO DAILY verapamil ER 180 mg PO DAILY HPI HPI Comments History of Present Illness Details Ms Sha jonesents to the office today for preop visit. She is scheduled for left total knee arthroplasty with Dr. Weems. She continues to have ongoing pain and difficulty with ambulation in the left knee, which is affecting her quality of life; therefore, she has elected to move forward with surgery. [facility] Medical History (Updated 05/21/23 @ 13:32 by Catarino Nava PA-C) Chronic restrictive lung disease Obesity (BMI 30.0-34.9) Cough due to SHANELLE inhibitor Eosinophilia Asthma HTN (hypertension) T2DM (type 2 diabetes mellitus) Erosive gastritis Leg edema, left Hyperparathyroidism Vitamin D deficiency Multinodular thyroid Thyroid nodule Skin lesion of chest wall Type 2 diabetes mellitus with diabetic polyneuropathy Fibromyalgia Depression with anxiety Cervical cancer Osteoarthritis of left knee Osteopenia GERD (gastroesophageal reflux disease) Diabetes mellitus with hyperglycemia Meir's disease Other specified acquired hypothyroidism Hyperlipidemia LDL goal <100 Essential hypertension Vitamin B12 deficiency Other obesity due to excess calories BMI 35.0-35.9,adult Surgical History Hx of elbow surgery Hx of hand surgery Hx of arthroscopic knee surgery History of cholecystectomy History of arthroplasty of right knee Hx of hysterectomy Hx of foot surgery History of bilateral carpal tunnel release Hx of bilateral oophorectomy History of esophagogastroduodenoscopy (EGD) Hx of colonoscopy Family History Father CVD (cardiovascular disease) Diabetes mellitus Stroke Mother Stroke Diabetes mellitus Breast cancer Hyperthyroidism Social History Household Members: Spouse Housing: House Housing Other:: 2nd floor-2 family house Are you a primary summer child caregiver to a significant other at home: No Do you presently have visiting nurse or other home services: Yes (home health aid) Alcohol intake: never Patient Tobacco Use Status: Never used Tobacco service: No 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al status: disabled 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: Right Handed Female Reproductive History Menstrual Age of Menarche: 11 Review of Systems Const All systems reviewed & are unremarkable except as noted in HPI and below Physical Exam Vital Signs: BMI result Body Mass Index 36.2 Const General: cooperative and no acute distress Orientation/consciousness: patient oriented x3 HEENT Head: Yes normal to inspection, Yes normocephalic and Yes atraumatic Eyes General: appearance normal, both eyes and all related structures Neck Neck: Yes normal visual inspection and Yes no lymphadenopathy Resp Effort & Inspection: normal respiratory effort and able to speak in complete sentences Cardio Rate: regular rate Peripheral pulses: Peripheral pulses 2+ throughout GI Inspection: Yes normal to inspection Palpation (GI): Soft to palpation Skin General skin exam: no rashes or lesions noted Neuro General: patient oriented x3 Extrem Other: Left knee: Normal to inspection. No open wound or abrasion. ROM is 0-95 degrees. Calf supple, nontender. NVI. Psych Appearance: grossly normal Mental Status: mental status grossly normal Assessment & Plan Assessment & Plan (1) Osteoarthritis of left knee: Code(s): M17.12 - Unilateral primary osteoarthritis, left knee Qualifiers: Osteoarthritis type: primary Qualified Code(s): M17.12 - Unilateral primary osteoarthritis, left knee Plan I discussed in detail the procedure and what to expect pre and post operatively. We discussed the risks, benefits and alternatives to the surgery as well as the rehabilitation course. The risks; which include, but are not limited to infection, bleeding, nerve injury, ongoing pain, swelling, and stiffness, perioperative risk of injury to bones and soft tissues, and blood clots. I?ve answered all questions and with their understanding they have consented to move forward with Left total knee arthroplasty with Dr. Weems PT order sent [place] [facility] [place] Orders: Orders PT Evaluation and Treatment Today Z96.652 - Presence of left artificial knee joint Patient Instructions: Scribed for Catarino Nava PA-C, by Nelson Felton medical affairs manager, on 05/21/2023 at 1:15 PM YARIEL. Catarino De Leon PA-C, have personally reviewed and agree with the information entered by the scribe. Coding Level of Care Code Est Pt Level 3 (32789) Diagnoses Primary osteoarthritis of left knee M17.12 Osteoarthritis type: primary
[2023-05-21 13:20] VITALS: BMI 36.2
== END 2023-05-21 13:35 | disposition home or self-care (01) ==
PROVIDERS: PCP Nurse Practitioner Primary Care; Visit Provider Physician Assistant
DX: M17.12 Unilateral primary osteoarthritis, left knee (principal)
CPT/HCPCS: 99024

== ENCOUNTER → 2023-05-21 13:13 | Outpatient (BNVA) | payer OTHER, SELFPAY | PROVIDERS: PCP Nurse Practitioner Primary Care; Visit Provider Physician Assistant | DX: Z01.818 Encounter for other preprocedural examination (principal); M17.12 Unilateral primary osteoarthritis, left knee | CPT/HCPCS: 99212 ==

== ENCOUNTER 2023-05-22 15:14 | Outpatient (REF) | payer OTHER, SELFPAY ==
[2023-05-22 16:36] LABS: MANUAL DIFF FLAG NO
[2023-05-22 16:57] LABS: Basophils Absolute Auto 0.1 X10*3/uL (0.0-0.2); Basophils Percent Auto 1.1 % (0-2); Eosinophils Absolute Auto 0.3 X10*3/uL (0.0-0.4); Eosinophils Percent Auto 2.6 % (0-4); Hematocrit 46.4 % (37.0-47.0); Hemoglobin 15.3 g/dl (12.0-16.0); Imm Gran Abs Auto 0.03 X10*3/uL (0.00-0.03); Imm Gran Pct Auto 0.3 % (0.0-0.4); Lymphocytes Absolute Auto 2.5 X10*3/uL (1.2-4.9); Lymphocytes Percent Auto 26.6 % (20-40); Mean Corpuscular Hemoglobin 27.1 pg (27.0-33.0); Mean Corpuscular Volume 82.1 fL (80.0-98.0); Mean Platelet Volume 10.4 fL (9.4-12.3); Monocytes Absolute Auto 0.6 X10*3/uL (0.1-1.2); Monocytes Percent Auto 6.4 % (2-11); Platelet Count 297 X10*3/uL (160-400); Red Blood Count 5.65 X10*6/uL (4.20-5.50); Red Cell Distribution Width 13.4 % (11.0-16.0); White Blood Count 9.5 X10*3/uL (4.8-10.8)
[2023-05-22 17:07] LABS: Estimated Average Glucose 163 mg/dL; Hemoglobin A1c % 7.3 % (<6.0)
[2023-05-22 17:11] LABS: Anion Gap 14 (12-20); Blood Urea Nitrogen 14 mg/dL (9-16); Calcium 9.4 mg/dL (8.4-10.2); Carbon Dioxide 28 mmol/L (22-29); Chloride 104 mmol/L (96-108); Estimated Glomerular Filt Rate > 60; Glucose Random 204 mg/dL (60-115); Potassium 4.3 mmol/L (3.3-5.1); Sodium 142 mmol/L (135-145)
== END 2023-05-22 15:15 | disposition home or self-care (01) ==
LOC: HO.HHCL 15:14
PROVIDERS: Visit Provider Nurse Practitioner
DX: Z01.818 Encounter for other preprocedural examination (principal)
CPT/HCPCS: 36415; 80048; 83036; 85025

== ENCOUNTER 2023-05-25 14:28 | Outpatient (AMB) | payer OTHER, SELFPAY ==
--- NOTE | 2023-05-25 14:43 | A.OFFVIS_ITS ---
Intake Vital Signs 05/25/23 14:52 Height 5 ft 2 in Weight 200 lb 9.93 oz BMI 36.7 BP 168/66 H Blood Pressure Location Lt brachial Position Sitting Pulse 60 Intake Visit Reasons: ED follow up Intake Note: Lois presents in the office as a follow up ED. CC: She is here because she was in the ED. She has knee surgery for her left knee tomorrow. Drilling Fluids Specialist Required: Yes Drilling Fluids Specialist Name: Leland Cesar [id number] Allergies hazelnut Allergy (Mild, Verified 05/25/23 14:53) per allergy skin test peanut Allergy (Mild, Verified 05/25/23 14:53) per allergy skin test HPI ED follow up HPI Details Reason for consult: colitis 68 year old female with hx of T2DM (on I nsulin), hypothyroidism, COPD, hypertension, hyperlipidemia, vitamin D deficiency, hyperparathyroidism and obesity who I am seeing for f/u RECAP: I had initially seen for assessment for colitis 03/07 Pt presented with gradually worsening left sided sharp 10/10 abdominal pain going all over the left side without any relieving or exacerbating factors> associated with bloody diarrhea, nausea and non bloody emesis with poor appetite. She recalled feeling sick after eating shrimp fried rice and chicken broccoli from a [employer] restaurant. She noted chills but no fever. no sick contacts, no recent abx or travel Initial CT with inflammation of bowel on left side and splenic flexure areas. Follow up CT with improvement in colitis. Colonoscopy 01/05 with severe diverticulosis and removal of x 1 small polyp. INTERIM: she has no issues with stool, no nausea, or vomiting she has a very minor LLQ discomfort no blood in stool pain goes away with gas and passing stool she tried to eat veg weekly EXAM: GENERAL: The patient is well developed and nontoxic. VITAL SIGNS:see workflow HEENT: Nonicteric sclerae, PERRLA, EOMI. Oropharynx clear. Moist mucous membranes. Conjunctivae appear well perfused. No thyroid mass. CHEST: Chest wall is nontender. HEART: Regular rate and rhythm without murmurs. LUNGS: Clear to auscultation bilaterally. ABDOMEN: Soft, positive bowel sounds, mildly tender, no organomegaly.no flank tenderness SKIN: No rash, no excessive bruising, petechiae, or purpura. NEUROLOGIC: Cranial nerves II-XII intact without motor/sensory deficit. Psych: normal affect A/P: 1/ suspected infectious colitis, resolve d, has occ LLQ pain improved with passing gas and stool, prob related to diverticulosis PLAN: 1/ high fiber diet, avoid constipation-- sent metamucil 2/ avoid poorly cooked foods beatrice meats a nd rice [facility] Medical History (Updated 05/25/23 @ 15:13 by Ludmila Walker MD) Colitis, infectious Chronic restrictive lung disease Obesity (BMI 30.0-34.9) Cough due to SHANELLE inhibitor Eosinophilia Asthma HTN (hypertension) T2DM (type 2 diabetes mellitus) Erosive gastritis Leg edema, left Hyperparathyroidism Vitamin D deficiency Multinodular thyroid Thyroid nodule Skin lesion of chest wall Type 2 diabetes mellitus with diabetic polyneuropathy Fibromyalgia Depression with anxiety Cervical cancer Osteoarthritis of left knee Osteopenia GERD (gastroesophageal reflux disease) Diabetes mellitus with hyperglycemia Meir's disease Other specified acquired hypothyroidism Hyperlipidemia LDL goal <100 Essential hypertension Vitamin B12 deficiency Other obesity due to excess calories BMI 35.0-35.9,adult Surgical History Hx of elbow surgery Hx of hand surgery Hx of arthroscopic knee surgery History of cholecystectomy History of arthroplasty of right knee Hx of hysterectomy Hx of foot surgery History of bilateral carpal tunnel release Hx of bilateral oophorectomy History of esophagogastroduodenoscopy (EGD) Hx of colonoscopy Family History Father CVD (cardiovascular disease) Diabetes mellitus Stroke Mother Stroke Diabetes mellitus Breast cancer Hyperthyroidism Social History Household Members: Spouse Housing: House Housing Other:: 2nd floor-2 family house Are you a primary small animal caretaker to a significant other at home: No Do you presently have visiting nurse or other home services: Yes (home health aid) Alcohol intake: never Patient Tobacco Use Status: Never used Tobacco service: No 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al status: disabled 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: Right Handed Female Reproductive History Menstrual Age of Menarche: 11 Assessment & Plan Assessment & Plan (1) Colitis, infectious: Code(s): A09 - Infectious gastroenteritis and colitis, unspecified Plan: see above Medications: New psyllium husk (Metamucil) mix into at least 8 oz of water or juice before administering 1 tbsp PO BID 660 grams 0RF Coding Level of Care Code Est Pt Level 3 (70067) Diagnoses Colitis, infectious A09
[2023-05-25 14:52] VITALS: BP 168/66; PULSE 60; BMI 36.7
== END 2023-05-25 15:14 | disposition home or self-care (01) ==
PROVIDERS: PCP Nurse Practitioner Primary Care; Visit Provider Internal Medicine Gastroenterology
DX: A09 Infectious gastroenteritis and colitis, unspecified (principal)
CPT/HCPCS: 99213

== ENCOUNTER → 2023-05-25 14:28 | Outpatient (BNVA) | payer OTHER, SELFPAY | PROVIDERS: PCP Nurse Practitioner Primary Care; Visit Provider Internal Medicine Gastroenterology | DX: A09 Infectious gastroenteritis and colitis, unspecified (principal) | CPT/HCPCS: 99212 ==

== ENCOUNTER 2023-05-26 07:16 | Outpatient (BNV) | payer OTHER, SELFPAY | END 2023-06-03 07:00 | PROVIDERS: Admitting Provider Physician Assistant; PCP Nurse Practitioner Primary Care; Visit Provider Internal Medicine | DX: I36.1 Nonrheumatic tricuspid (valve) insufficiency (principal) | CPT/HCPCS: 93306 ==

== ENCOUNTER 2023-05-26 07:16 | Outpatient (BNV) | payer OTHER, SELFPAY | END 2023-05-31 22:42 | PROVIDERS: Admitting Provider Physician Assistant; PCP Nurse Practitioner Primary Care; Visit Provider Internal Medicine | DX: I49.1 Atrial premature depolarization (principal) | CPT/HCPCS: 93010 ==

== ENCOUNTER 2023-05-26 07:16 | Outpatient (BNV) | payer OTHER, SELFPAY | END 2023-05-29 05:36 | PROVIDERS: Admitting Provider Physician Assistant; PCP Nurse Practitioner Primary Care; Visit Provider Internal Medicine Cardiovascular Disease | DX: I95.9 Hypotension, unspecified (principal) | CPT/HCPCS: 93010 ==

== ENCOUNTER 2023-05-26 07:16 | Inpatient (IN) | payer OTHER, SELFPAY ==
[2023-05-19 12:41] VITALS: BP 190/87; PULSE 68; RESP 20; O2SAT 97; BMI 36.4
--- NOTE | 2023-05-19 12:51 | P.CONAN_ITS ---
Documented by User: Angela Renae NP 05/25/23 14:58 HPI - Anesthesia Eval Consult details Narrative: 68yo F for Left Knee Replacement Total, 05/26/23 Medically cleared Pulmo cleared Does not accept blood products - No type and screen No recent illness No CP/SOB within limits of pain Asthma. Stable. Very rare albuterol. HTN. BP very elevated at PAT (forgot to take meds today), but previous readings OK. DM. FBS ~115. Glucose monitor (not insulin pump) GERD. Controlled on ppi Anesthesia Pre-Procedure Meds Is the patient on any of the following meds?: Semaglutide (Ozempic) (Last dose 226) and Any other SGL-1 drugs or drugs that delay gastric emptying (Jardiance) PMFSH Active Problems Active Problems: All Active Problems (Updated 05/19/23 @ 12:39 by Cleo Lewis RN) Upper respiratory infection (Acute) COPD exacerbation (Acute) HLD (hyperlipidemia) (Acute) Chronic idiopathic constipation (Acute) Tubular adenoma of colon (Acute) Skin lesion of back (Acute) MGUS (monoclonal gammopathy of unknown significance) (Acute) Status post total knee replacement, right (Acute) Osteoarthritis of left knee (Acute) GERD (gastroesophageal reflux disease) (Acute) Cough due to SHANELLE inhibitor (Acute) Eosinophilia (Acute) Asthma (Acute) Erosive gastritis (Acute) HTN (hypertension) (Acute) T2DM (type 2 diabetes mellitus) (Acute) Leg edema, left (Acute) Hyperparathyroidism (Acute) Vitamin D deficiency (Acute) Multinodular thyroid (Acute) Thyroid nodule (Acute) Skin lesion of chest wall (Acute) Type 2 diabetes mellitus with diabetic polyneuropathy (Acute) Diabetes mellitus with hyperglycemia (Acute) Meir's disease (Acute) Other specified acquired hypothyroidism (Acute) Hyperlipidemia LDL goal <100 (Acute) Essential hypertension (Acute) Vitamin B12 deficiency (Acute) Other obesity due to excess calories (Acute) BMI 35.0-35.9,adult (Acute) Past Medical History Medical History Colitis, infectious Chronic restrictive lung disease Obesity (BMI 30.0-34.9) Cough due to SHANELLE inhibitor Eosinophilia Asthma HTN (hypertension) T2DM (type 2 diabetes mellitus) Erosive gastritis Leg edema, left Hyperparathyroidism Vitamin D deficiency Multinodular thyroid Thyroid nodule Skin lesion of chest wall Type 2 diabetes mellitus with diabetic polyneuropathy Fibromyalgia Depression with anxiety Cervical cancer Osteoarthritis of left knee Osteopenia GERD (gastroesophageal reflux disease) Diabetes mellitus with hyperglycemia Meir's disease Other specified acquired hypothyroidism Hyperlipidemia LDL goal <100 Essential hypertension Vitamin B12 deficiency Other obesity due to excess calories BMI 35.0-35.9,adult Family History Family History Father CVD (cardiovascular disease) Diabetes mellitus Stroke Mother Stroke Diabetes mellitus Breast cancer Hyperthyroidism Family history of problems with anesthesia: No Surgical History Surgical History Hx of elbow surgery Hx of hand surgery Hx of arthroscopic knee surgery History of cholecystectomy History of arthroplasty of right knee Hx of hysterectomy Hx of foot surgery History of bilateral carpal tunnel release Hx of bilateral oophorectomy History of esophagogastroduodenoscopy (EGD) Hx of colonoscopy History of Problems with Anesthesia: No Social History Social History Household Members: Spouse Housing: House Housing Other:: 2nd floor-2 family house Are you a primary pet caretaker to a significant other at home: No Do you presently have visiting nurse or other home services: Yes (UROLOGIST PHYSICIAN) Alcohol intake: never Patient Tobacco Use Status: Never used Tobacco service: No 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al status: disabled 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 Allergies Allergy/AdvReac Type Severity Reaction Status Date / Time hazelnut Allergy Mild per Verified 05/26/23 07:56 allergy skin test peanut Allergy Mild per Verified 05/26/23 07:56 allergy skin test Home Medications Medication Instructions Recorded Confirmed Last Taken Type hydrochlorothiazide 50 mg tablet 50 mg PO DAILY 02/29/20 05/21/23 05/25/23 History blood sugar diagnostic #10 ea 03/19/20 05/21/23 02/26/23 History hydroxyzine HCl 50 mg tablet 50 mg PO Q8H PRN anxiety 03/19/20 05/21/23 05/25/23 History lisinopril 40 mg tablet 40 mg PO DAILY 03/19/20 05/21/23 05/25/23 History tramadol 50 mg tablet 50 mg PO TID PRN Pain 03/19/20 05/21/23 Unknown History metoprolol succinate 200 mg 200 mg PO DAILY 07/09/20 05/21/23 05/26/23 01:00 History tablet,extended release 24 hr trazodone 150 mg tablet 300 mg PO BEDTIME 07/09/20 05/21/23 05/25/23 History lancets 33 gauge (Jenelle Decker #100 ea 04/17/21 05/21/23 02/26/23 History Plus Lancet) verapamil 180 mg tablet,extended 180 mg PO DAILY 10/17/21 05/21/23 05/26/23 01:00 History release albuterol sulfate 0.63 mg/3 mL 1 amp inhalation Q4H PRN wheezing 03/24/22 05/21/23 Unknown History solution for nebulization aspirin 81 mg tablet,delayed 1 tab PO DAILY 03/24/22 05/21/23 05/19/23 History release levothyroxine 75 mcg tablet 75 mcg PO DAILY@0600 03/24/22 05/21/23 05/26/23 01:00 History multivitamin-ferrous 1 tab PO DAILY 03/24/22 05/21/23 05/25/23 History fumarate-folic acid 18 mg-400 mcg tablet (Certavite-Antioxidant) clonidine HCl 0.1 mg tablet 0.2 mg PO BEDTIME 02/28/23 05/21/23 05/25/23 History cyanocobalamin (vitamin B-12) 1,000 mcg PO DAILY 02/28/23 05/21/23 05/25/23 History 1,000 mcg sublingual tablet dexlansoprazole 60 mg 60 mg PO DAILY@0630 02/28/23 05/21/23 05/26/23 01:00 History capsule,biphase delayed release empagliflozin 25 mg tablet 25 mg PO QAM 02/28/23 05/21/23 05/11/23 History (Jardiance) insulin glargine 100 unit/mL (3 34 unit subcut BEDTIME 02/28/23 05/21/23 05/25/23 History mL) subcutaneous pen (Lantus Solostar U-100 Insulin) pioglitazone 15 mg tablet 15 mg PO QAM 02/28/23 05/21/23 05/25/23 History semaglutide 0.25 mg or 0.5 mg (2 0.5 mg subcut MO@0900 02/28/23 05/21/23 05/11/23 History mg/3 mL) subcutaneous pen injector (Ozempic) venlafaxine 150 mg 150 mg PO DAILY 05/20/23 05/21/23 05/25/23 History capsule,extended release 24 hr fluticasone propionate 50 1 spray intranasal DAILY 05/25/23 05/26/23 05/25/23 History mcg/actuation nasal spray,suspension furosemide 40 mg tablet 40 mg PO DAILY 05/25/23 05/25/23 History fluticasone fur. 200 mcg-umeclid 1 ea inhalation DAILY 05/26/23 05/26/23 05/26/23 01:00 History 62.5 mcg-vilant 25 mcg inhalat.powder (Trelegy Ellipta) Exam Height,Weight and Vital Signs: Height 5 ft 2 in Weight 90.265 kg Last Vital Signs Pulse 68 05/19/23 12:41 Resp 20 05/19/23 12:41 BP 190/87 H 05/19/23 12:41 Pulse Ox 97 05/19/23 12:41 O2 Del Method Room Air 05/19/23 12:41 Selected Entries 03/05/23 08:00 03/05/23 15:08 04/01/23 11:05 Blood Pressure 113/57 L 123/74 130/82 Pertinent Lab Results Pertinent Lab Results: Laboratory Tests 05/22/23 15:16 WBC 9.5 Hgb 15.3 D Hct 46.4 D Plt Count 297 Sodium 142 Potassium 4.3 Chloride 104 Carbon Dioxide 28 BUN 14 Creatinine 0.85 Narrative Narrative: EKG 02/2023 Vent. Rate : 095 BPM Atrial Rate : 095 BPM P-R Int : 140 ms QRS Dur : 098 ms QT Int : 402 ms P-R-T Axes : 035 013 053 degrees QTc Int : 505 ms Normal sinus rhythm Nonspecific T wave abnormality Prolonged QT Abnormal ECG When compared with ECG of 24-MAR-2022 08:22, No significant change was found Airway Mallampati Class: III TM Dist: <=3cm Neck ROM: Full Loose/Missing/Broken Teeth: No Heart: RRR Lungs: CTAB Assessment and Plan Assessment Anesthesia Assessment: Anesthesia Plan Discussed and PAT Visit Final Anesthetic Review Family History of Problems with Anesthesia: No History of Problems with Anesthesia: No Documented by User: Domo Will MD 05/26/23 15:51 HPI - Anesthesia Eval Anesthesia Pre-Procedure Meds If Yes to any meds - educate patient: Pt education - increased risk of aspiration and Pt education - possibility of cancelled proc at provider's disc retion [facility] Past Medical History Medical History Colitis, infectious Chronic restrictive lung disease Obesity (BMI 30.0-34.9) Cough due to SHANELLE inhibitor Eosinophilia Asthma HTN (hypertension) T2DM (type 2 diabetes mellitus) Erosive gastritis Leg edema, left Hyperparathyroidism Vitamin D deficiency Multinodular thyroid Thyroid nodule Skin lesion of chest wall Type 2 diabetes mellitus with diabetic polyneuropathy Fibromyalgia Depression with anxiety Cervical cancer Osteoarthritis of left knee Osteopenia GERD (gastroesophageal reflux disease) Diabetes mellitus with hyperglycemia Meir's disease Other specified acquired hypothyroidism Hyperlipidemia LDL goal <100 Essential hypertension Vitamin B12 deficiency Other obesity due to excess calories BMI 35.0-35.9,adult Family History Family History Father CVD (cardiovascular disease) Diabetes mellitus Stroke Mother Stroke Diabetes mellitus Breast cancer Hyperthyroidism Surgical History Surgical History Hx of elbow surgery Hx of hand surgery Hx of arthroscopic knee surgery History of cholecystectomy History of arthroplasty of right knee Hx of hysterectomy Hx of foot surgery History of bilateral carpal tunnel release Hx of bilateral oophorectomy History of esophagogastroduodenoscopy (EGD) Hx of colonoscopy Social History Social History Household Members: Spouse Housing: House Housing Other:: 2nd floor-2 family house Are you a primary pet caretaker to a significant other at home: No Do you presently have visiting nurse or other home services: Yes (UROLOGIST PHYSICIAN) Alcohol intake: never Patient Tobacco Use Status: Never used Tobacco service: No 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al status: disabled 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 Allergies Allergy/AdvReac Type Severity Reaction Status Date / Time hazelnut Allergy Mild per Verified 05/26/23 07:56 allergy skin test peanut Allergy Mild per Verified 05/26/23 07:56 allergy skin test Home Medications Medication Instructions Recorded Confirmed Last Taken Type hydrochlorothiazide 50 mg tablet 50 mg PO DAILY 02/29/20 05/21/23 05/25/23 History blood sugar diagnostic #10 ea 03/19/20 05/21/23 02/26/23 History hydroxyzine HCl 50 mg tablet 50 mg PO Q8H PRN anxiety 03/19/20 05/21/23 05/25/23 History lisinopril 40 mg tablet 40 mg PO DAILY 03/19/20 05/21/23 05/25/23 History tramadol 50 mg tablet 50 mg PO TID PRN Pain 03/19/20 05/21/23 Unknown History metoprolol succinate 200 mg 200 mg PO DAILY 07/09/20 05/21/23 05/26/23 01:00 History tablet,extended release 24 hr trazodone 150 mg tablet 300 mg PO BEDTIME 07/09/20 05/21/23 05/25/23 History lancets 33 gauge (OneTouch Deldeja #100 ea 04/17/21 05/21/23 02/26/23 History Plus Lancet) verapamil 180 mg tablet,extended 180 mg PO DAILY 10/17/21 05/21/23 05/26/23 01:00 History release albuterol sulfate 0.63 mg/3 mL 1 amp inhalation Q4H PRN wheezing 03/24/22 05/21/23 Unknown History solution for nebulization aspirin 81 mg tablet,delayed 1 tab PO DAILY 03/24/22 05/21/23 05/19/23 History release levothyroxine 75 mcg tablet 75 mcg PO DAILY@0600 03/24/22 05/21/23 05/26/23 01:00 History multivitamin-ferrous 1 tab PO DAILY 03/24/22 05/21/23 05/25/23 History fumarate-folic acid 18 mg-400 mcg tablet (Certavite-Antioxidant) clonidine HCl 0.1 mg tablet 0.2 mg PO BEDTIME 02/28/23 05/21/23 05/25/23 History cyanocobalamin (vitamin B-12) 1,000 mcg PO DAILY 02/28/23 05/21/23 05/25/23 History 1,000 mcg sublingual tablet dexlansoprazole 60 mg 60 mg PO DAILY@0630 02/28/23 05/21/23 05/26/23 01:00 History capsule,biphase delayed release empagliflozin 25 mg tablet 25 mg PO QAM 02/28/23 05/21/23 05/11/23 History (Jardiance) insulin glargine 100 unit/mL (3 34 unit subcut BEDTIME 02/28/23 05/21/23 05/25/23 History mL) subcutaneous pen (Lantus Solostar U-100 Insulin) pioglitazone 15 mg tablet 15 mg PO QAM 02/28/23 05/21/23 05/25/23 History semaglutide 0.25 mg or 0.5 mg (2 0.5 mg subcut MO@0900 02/28/23 05/21/23 History mg/3 mL) subcutaneous pen injector (Ozempic) venlafaxine 150 mg 150 mg PO DAILY 05/20/23 05/21/23 05/25/23 History capsule,extended release 24 hr fluticasone propionate 50 1 spray intranasal DAILY 05/25/23 05/26/23 05/25/23 History mcg/actuation nasal spray,suspension furosemide 40 mg tablet 40 mg PO DAILY 05/25/23 05/25/23 History fluticasone fur. 200 mcg-umeclid 1 ea inhalation DAILY 05/26/23 05/26/23 05/26/23 01:00 History 62.5 mcg-vilant 25 mcg inhalat.powder (Trelegy Ellipta) Assessment and Plan Final Anesthetic Review NPO: Yes ASA Class: III Final Preanesthetic Review: No Changes in Pt Med Stat, Meds/Allgs Chart Reviewed, Consent Obtained/Reviewed and Anes Risks/Benef Reviewed Patient Risk: Intermediate Procedure Risk: Intermediate Anesthetic Plan Anesthetic Plan: MAC:, Spinal and Regional Block Disposition: Standard PACU
[2023-05-19 15:25] LABS: MRSA Nasal PCR NEGATIVE (Negative); SA Nasal PCR NEGATIVE (Negative)
[2023-05-26] VITALS (17 sets, daily range): BP systolic 146–179; BP diastolic 63–87; PULSE 54–91; RESP 10–18; TEMP 36–36.4; O2SAT 91–98
--- NOTE | ~2023-05-26 | CT_ITS ---
EXAMINATION: CT ABDOMEN AND PELVIS WITH CONTRAST CLINICAL INFORMATION: Worsening abdominal pain COMPARISON: CT abdomen and pelvis 05/30/2023. TECHNIQUE: Multidetector volumetric images were obtained from the superior aspect of the liver through the pubic symphysis following administration 85 mL of Omnipaque 350 intravenous contrast. Sagittal and coronal reformatted images were obtained on the technologist's workstation. Oral contrast: No This CT examination was performed using dose optimization techniques as appropriate, variously including the following: *Automated exposure control *Adjustment of mA and/or kV according to patient size (this includes techniques or standardized protocols for targeted exams where dose is matched to indication/reason for exam; i.e. extremities or head) *Use of iterative reconstruction technique DLP: 807 mGy-cm FINDINGS: LUNG BASES: There are small bilateral pleural effusions minimally greater on the right with mild compressive atelectasis. Heart size is normal. LIVER, GALLBLADDER, AND BILIARY TREE: The liver is normal in size, shape, and attenuation. No focal hepatic lesion or biliary ductal dilatation is present. The gallbladder has been surgically removed. There is likely minimal fluid in the paracolic gutter. PANCREAS: Unremarkable. SPLEEN: Unremarkable. ADRENAL GLANDS: Unremarkable. KIDNEYS AND URETERS: The kidneys are normal in size, shape, and attenuation. No hydronephrosis, hydroureter, or calculi seen. No perinephric stranding. Simple renal cyst lower pole and upper pole left kidney BLADDER: A Ramos's catheter is noted in an empty bladder.. GASTROINTESTINAL TRACT: There is diffuse mural thickening involving the entire sigmoid, descending colon likely colitis. There are very few scattered diverticuli in the descending colon but no evidence of diverticulitis. The small bowel loops are normal caliber. Appendix is not visualized. The stomach is nondistended. ABDOMINAL WALL: There is diffuse abdominal wall edema with a small umbilical hernia containing fat. LYMPH NODES: Normal. VASCULAR: Unremarkable. PELVIC VISCERA: Mild mesenteric fat stranding is seen throughout the abdomen and pelvis OSSEOUS STRUCTURES: Unremarkable. CT/CT abdomen pelvis w IV con IMPRESSION: Diffuse mural thickening involving the descending and sigmoid: To the splenic flexure most likely inflammatory or infectious colitis. There are diffuse scattered diverticuli in the descending and sigmoid colon but no suspicion for diverticulitis. Previously seen distended small bowel loops with air-fluid levels have improved. There is abdominal wall and mesenteric edema. Minimal fluid in the paracolic gutters. Small umbilical hernia. Fleischner guidelines were followed.
--- NOTE | ~2023-05-26 | XR_ITS ---
EXAMINATION: XR ABDOMEN KUB CLINICAL INDICATION: Gas pain COMPARISON: CT of the abdomen and pelvis from yesterday TECHNIQUE: AP view of the abdomen. FINDINGS: There is gaseous distention of the large bowel. There is paucity of the of bowel gas, wall thickening and likely luminal narrowing of the distal colon similar to yesterday's CT scan. No free air. No suspicious calcifications. Surgical clips in the right upper quadrant from cholecystectomy. IVC filter. Bony structures unremarkable. XR/XR KUB IMPRESSION: Gaseous distention of the large bowel and likely mild or partial distal large bowel obstruction similar to yesterday's CT scan.
--- NOTE | ~2023-05-26 | XR_ITS ---
EXAMINATION: XR CHEST CLINICAL INFORMATION: Central line placement COMPARISON: Chest x-ray on 05/29/2023 at 0427 hours TECHNIQUE: Frontal view of the chest was obtained on 05/29/2023 at 0637 hours. FINDINGS: pulmonary vascularity. LUNGS: Lungs are hypoinflated. No focal airspace disease could be seen. No pneumothorax is seen. Right internal jugular central line is seen ending at expected location of superior vena cava. XR/XR chest 1V IMPRESSION: 1. Interval successful placement of Right internal jugular central line ending at expected location of superior vena cava. 2. No pneumothorax. 3. Unchanged Borderline cardiomegaly without signs of congestive heart failure.
--- NOTE | ~2023-05-26 | XR_ITS ---
EXAMINATION: XR ABDOMEN KUB CLINICAL INDICATION: Abdominal pain COMPARISON: None available. TECHNIQUE: AP view of the abdomen. FINDINGS: The bowel gas pattern is normal with no evidence of ileus or obstruction. Gas and stool is seen in the colon. Some air is present in nondilated small bowel. No unusual soft tissue calcifications are noted. Surgical clips are present in the gallbladder fossa. A retrievable IVC filter is noted with its tip at the superior endplate of L3. The bones are unremarkable. XR/XR KUB IMPRESSION: No evidence of bowel obstruction. Incidental note made of cholecystectomy and retrievable IVC filter.
--- NOTE | ~2023-05-26 | XR_ITS ---
EXAMINATION: XR CHEST CLINICAL INFORMATION: Low oxygen saturation COMPARISON: 03/30/2023 TECHNIQUE: Frontal view of the chest was obtained. FINDINGS: No significant abnormality is noted involving the heart, lungs, mediastinum, bony thorax or soft tissues. XR/XR chest 1V IMPRESSION: Unremarkable examination.
--- NOTE | ~2023-05-26 | US_ITS ---
EXAMINATION: US VENOUS ULTRASOUND WITH DOPPLER LOWER EXTREMITY, LEFT CLINICAL INFORMATION: Edema, postoperative. Evaluate for DVT. COMPARISON: 06/05/2021 TECHNIQUE: Ultrasound of the deep veins is performed from the hip to the calf with compression sonography and color and pulse Doppler assessment. Spectral analysis with color-flow imaging is performed. FINDINGS: The common femoral vein is compressible and exhibits a normal phasic waveform; this suggests that the iliac veins are widely patent above. Within the proximal thigh, the visualized profunda femoris vein is normal. The examined greater saphenous vein and saphenofemoral junction are normal. Superficial femoral vein is patent in the proximal, mid and distal thigh. Popliteal vein is normal to the level of the trifurcation. On compression jimenez scale and color Doppler images, the visualized posterior tibial vein of the calf is normal. The peroneal vein is difficult to visualize/evaluate. No evidence of Watson's cyst. US/US venous duplex LE LT IMPRESSION: No evidence of deep vein thrombosis in the left lower extremity.
--- NOTE | ~2023-05-26 | CT_ITS ---
EXAMINATION: CT ANGIOGRAM OF THE CHEST WITH AND WITHOUT CONTRAST (CT PULMONARY ANGIOGRAM FOR PE) CLINICAL INFORMATION: Reassessed bilateral PE, GI bleeding. COMPARISON: CTA chest 05/29/2023. TECHNIQUE: Prior to contrast administration, noncontrast localization images were obtained. Subsequently, multidetector volumetric imaging was performed from the thoracic inlet to below the diaphragms following the administration of 65 mL Omnipaque 350 intravenous contrast. No contrast reaction reported Sagittal, coronal, and MIP oblique sagittal reformatted images were obtained on the CT workstation, uploaded to PACS, and reviewed. This CT examination was performed using dose optimization techniques as appropriate, variously including the following: *Automated exposure control *Adjustment of mA and/or kV according to patient size (this includes techniques or standardized protocols for targeted exams where dose is matched to indication/reason for exam; i.e. extremities or head) *Use of iterative reconstruction technique Total exam dose-length product 111 mGy-cm FINDINGS: QUALITY OF STUDY/CONTRAST BOLUS: Satisfactory. PULMONARY ARTERIES: Increased pulmonary emboli burden in the distal aspect of the right main pulmonary artery and proximal segmental branches of the right upper and lower lobes. Decreased pulmonary emboli burden in the left lower lobe. THORACIC AORTA: No aneurysm. LUNG: Mild bronchial thickening with mosaic attenuation of lung parenchyma. Bibasilar subsegmental atelectasis. No dense consolidation. Central airways are patent. PLEURA: No pleural effusion or pneumothorax. MEDIASTINUM: Stable cardiomegaly. No pericardial effusion. No mediastinal or hilar lymphadenopathy. Normal thyroid gland. CORONARY ARTERY CALCIFICATION: Multivessel coronary artery calcifications. CHEST WALL/AXILLA: No axillary or internal mammary lymphadenopathy. OSSEOUS STRUCTURES: No acute or suspicious osseous abnormality. UPPER ABDOMEN: Unremarkable. No reflux of contrast into the hepatic veins to suggest elevated right heart pressures. CT/CT angio chest PE protocol IMPRESSION: 1. Mildly increased burden of nonocclusive pulmonary emboli in the distal right main pulmonary artery and immediately adjacent proximal segmental branches. 2. Decreased burden of nonocclusive pulmonary emboli in the left lower lobe. 3. Mild bronchial thickening with mosaic attenuation of lung parenchyma which could be seen with air trapping in the context of small airways disease. VTE: positive
--- NOTE | ~2023-05-26 | NM_ITS ---
EXAMINATION: Nuclear medicine bleeding exam CLINICAL INFORMATION: Rectal bleeding. History of ischemic colitis. 2 episodes of blood per rectum. COMPARISON: None. TECHNIQUE: 25 mCi of technetium 99m labeled RBCs injected intravenously. Images obtained over the abdomen and pelvis for 60 minutes. Oblique views obtained at 1 hour. FINDINGS: No extravasation of the isotope into the bowel. No evidence of gastric chest no hemorrhage. NM/NM GI bleeding IMPRESSION: No evidence of gastrointestinal hemorrhage.
--- NOTE | ~2023-05-26 | CT_ITS ---
EXAMINATION: CT ABDOMEN AND PELVIS WITHOUT CONTRAST CLINICAL INFORMATION: Diarrhea. Evaluate for colitis. COMPARISON: CT scan of the abdomen and pelvis/CT enterography dated 05/13/[address] scans of the abdomen and pelvis. TECHNIQUE: Multidetector volumetric imaging was performed from the superior aspect of the liver through the pubic symphysis. Sagittal and coronal reformatted images were obtained on the technologist workstation. This CT examination was performed using dose optimization techniques as appropriate, variously including the following: *Automated exposure control *Adjustment of mA and/or kV according to patient size (this includes techniques or standardized protocols for targeted exams where dose is matched to indication/reason for exam; i.e. extremities or head) *Use of iterative reconstruction technique DLP: 1105.78 mGy-cm. FINDINGS: LUNG BASES: Trace bilateral pleural effusion, larger on the right than the left. Mild dependent atelectasis in both lower lobes. Trace pericardial fluid, likely physiologic. Minimal aortic calcifications. LIVER, GALLBLADDER, AND BILIARY TREE: The liver is normal in size, shape, and attenuation. No focal hepatic lesion on noncontrast imaging. No biliary ductal dilatation is present. The gallbladder is surgically absent. PANCREAS: Diffusely atrophic with fatty infiltration noted. SPLEEN: Unremarkable. ADRENAL GLANDS: Unremarkable on noncontrast imaging. KIDNEYS AND URETERS: The kidneys are normal in size and attenuation. Focal cortical defect in the upper pole of the left kidney again noted, perhaps sequelae of previous infarct. There is a exophytic thin-walled fluid attenuation 3.7 x 3.6 cm cyst in the lower pole of the left kidney, unchanged, consistent with a benign finding, warranting no additional imaging follow-up. No hydronephrosis, hydroureter, or calculi seen. No perinephric stranding. BLADDER: Compressed by a Ramos catheter and grossly unremarkable.. PELVIC VISCERA: The patient is status post hysterectomy. No suspicious adnexal mass. GASTROINTESTINAL TRACT: There is abnormal fluid distention of the small bowel loops and the colon with scattered air-fluid levels. No significant wall thickening, pneumatosis, or mesenteric adenitis is noted. There is minimal soft tissue edema and stranding seen primarily in the left lower quadrant and extending into the pelvis. No free air is noted to suggest a perforation. No focal abscess collection is noted. A few scattered sigmoid colonic diverticula are noted. ABDOMINAL WALL: No significant hernia is appreciated. LYMPH NODES, VASCULAR: Unremarkable. OSSEOUS STRUCTURES: Mild degenerative spurring in the lower thoracic spine and mid lumbar spine. Mild facet arthropathy in lower lumbar spine. CT/CT abdomen pelvis wo IV con IMPRESSION: * Abnormal fluid distention of the small bowel loops and colon with scattered air-fluid levels. Findings are consistent with a gastroenteritis and colitis. No evidence of bowel obstruction or perforation. * Trace bilateral pleural effusions, larger on the right than the left.
--- NOTE | ~2023-05-26 | XR_ITS ---
EXAMINATION: XR CHEST CLINICAL INFORMATION: Cough. COMPARISON: 05/20/2023 TECHNIQUE: Frontal view of the chest was obtained. FINDINGS: Lung volumes are low. The cardiomediastinal silhouette is stable. There is no focal consolidation or pleural effusion. There are no significant pleural effusions. The bony structures and soft tissues are unremarkable. XR/XR chest 1V IMPRESSION: No acute cardiopulmonary disease.
--- NOTE | ~2023-05-26 | XR_ITS ---
EXAMINATION: XR KNEE, LEFT CLINICAL INFORMATION: Left total knee arthroplasty COMPARISON: 02/24/2023 TECHNIQUE: AP and lateral views of the left knee. FINDINGS: Prosthetic components of the total knee arthroplasty are appropriately aligned. No periprosthetic fracture. Gas from recent surgery is present in the joint and surrounding soft tissues. A trace joint effusion is present. XR/XR knee LT 2V IMPRESSION: Appropriate alignment of the left total knee arthroplasty.
--- NOTE | ~2023-05-26 | CT_ITS ---
EXAMINATION: CT HEAD WITHOUT CONTRAST CLINICAL INFORMATION: Lethargy COMPARISON: CT head June 17, 2013 TECHNIQUE: Contiguous axial imaging was performed from the skull base to vertex without intravenous administration of contrast. Coronal and sagittal reformatted images are performed at the CT scanner. [This CT examination was performed using dose optimization techniques as appropriate, variously including the following: *Automated exposure control *Adjustment of mA and/or kV according to patient size (this includes techniques or standardized protocols for targeted exams where dose is matched to indication/reason for exam; i.e. extremities or head) *Use of iterative reconstruction technique] DLP: 824.4+5+6.3 mGy-cm. FINDINGS: There is no evidence of acute intracranial hemorrhage or territorial infarction. No abnormal mass-effect or midline shift is seen. Anderson to white matter differentiation is well preserved. No extra-axial fluid collections are identified. The ventricles are normal in size. There is no abnormal attenuation within the brain parenchyma. There is no osseous abnormality. Small volume of mucosal thickening or fluid layering dependently in the right sphenoid sinus. Mastoid air cells and middle ear cavities are normally aerated. CT/CT head/brain wo IV con IMPRESSION: No acute intracranial pathology. Sinus disease.
--- NOTE | ~2023-05-26 | CT_ITS ---
EXAMINATION: CT ANGIOGRAM CHEST, PE PROTOCOL CLINICAL INFORMATION: Hypoxia, hypotension, recent surgery COMPARISON: None TECHNIQUE: Multidetector CT pulmonary angiography of the thorax was performed according to the pulmonary embolism protocol after intravenous administration of 65 mL of intravenous Omnipaque 350. Reformatted coronal and sagittal imaging was performed. 3-D MIP images performed at a dedicated separate workstation. This CT examination was performed using dose optimization techniques as appropriate, variously including the following: *Automated exposure control *Adjustment of mA and/or kV according to patient size (this includes techniques or standardized protocols for targeted exams where dose is matched to indication/reason for exam; i.e. extremities or head) *Use of iterative reconstruction technique DLP: 835 mGy-cm QUALITY: Overall Exam Quality: Satisfactory. Pulmonary Arterial Enhancement: Adequate. Breath Hold: Adequate. Artifacts Impacting Image Quality: None. FINDINGS: VASCULAR: Heart: Enlarged. Right internal jugular central venous catheter tip terminates in the mid SVC. Coronary artery calcifications not present. Aorta: No aortic aneurysm or dissection. Pulmonary Artery: Filling defect identified within the right upper, right middle, right lower, left upper, and left lower pulmonary arterial branches consistent with segmental nonocclusive pulmonary emboli. NONVASCULAR: THORAX: Thyroid Gland: The visualized thyroid gland is normal. Lymph Nodes: No supraclavicular, axillary, mediastinal or hilar lymphadenopathy is identified. Airways: The trachea and central bronchi are normal. Lungs: No airspace consolidation. Bibasilar dependent atelectatic changes. Pleura: No pleural effusion. No pneumothorax. Upper Abdomen: The visualized upper abdomen is unremarkable. Soft Tissues/Musculoskeletal: No acute fracture or significant focal lesion. CT/CT angio chest PE protocol IMPRESSION: Bilateral nonocclusive segmental pulmonary emboli. No evidence of right heart strain or pulmonary infarct. Fleischner guidelines were followed. This critical test result was discussed with Maya Rae at 1521 on 05/29/[address] Williams Heard at the time of discovery. It was ascertained that the content and the importance of the findings was understood at the time of the direct communication.
--- NOTE | ~2023-05-26 | CT_ITS ---
EXAMINATION: CT ABDOMEN AND PELVIS WITHOUT AND WITH CONTRAST CLINICAL INFORMATION: Rectal bleeding COMPARISON: None available. TECHNIQUE: Multidetector volumetric images were obtained from the superior aspect of the liver through the pubic symphysis following administration 85 mL of Omnipaque 350 intravenous contrast. Sagittal and coronal reformatted images were obtained on the technologist's workstation. Oral contrast: No This CT examination was performed using dose optimization techniques as appropriate, variously including the following: *Automated exposure control *Adjustment of mA and/or kV according to patient size (this includes techniques or standardized protocols for targeted exams where dose is matched to indication/reason for exam; i.e. extremities or head) *Use of iterative reconstruction technique DLP: 1757 mGy-cm FINDINGS: LUNG BASES: The bilateral small pleural effusions and underlying atelectasis. Heart size is normal. LIVER, GALLBLADDER, AND BILIARY TREE: The liver is normal in size, shape, and attenuation. No focal hepatic lesion or biliary ductal dilatation is present. The gallbladder has been surgically removed PANCREAS: Unremarkable. SPLEEN: Unremarkable. ADRENAL GLANDS: Unremarkable. KIDNEYS AND URETERS: The kidneys are normal in size, shape, and attenuation. No hydronephrosis, hydroureter, or calculi seen. No perinephric stranding. There is 2.3 cm calyceal diverticulum upper pole left kidney. There is a nonenhancing 4 cm cyst lower pole left kidney and a peripelvic right renal cyst the ureters are opacified and are normal caliber.. BLADDER: There is a Ramos's catheter in the bladder without bladder wall thickening or radiopaque calculi. GASTROINTESTINAL TRACT: There is nondistended air-fluid level seen within left transverse and ascending colon with mild mural thickening and enhancement of mucosa of sigmoid colon. There are few scattered diverticuli in sigmoid colon but no suspicion for diverticulitis. There is perinephric fat stranding, presacral soft tissue thickening and free fluid in the pelvis all suggestive of more focal colitis than diverticulitis. The right colon the right transverse colon appears unremarkable except for scattered stool. The ileocecal junction is normal. The small bowel loops are normal. The stomach is nondistended. There is no intraluminal contrast extravasation seen to suspect any site of GI bleed ABDOMINAL WALL: There is bilateral lateral abdominal wall edema/cellulitis. LYMPH NODES: Normal. VASCULAR: Unremarkable. PELVIC VISCERA: There is small amount of free fluid in the pelvis. No abnormal lymph nodes seen. OSSEOUS STRUCTURES: No aggressive lytic or sclerotic process seen. CT/CT abdomen pelvis w IV con IMPRESSION: 1. No evidence of contrast extravasation seen to suspect any site of GI bleed. 2. There is mild mural thickening and enhancement of sigmoid colon with surrounding fat stranding and free fluid in the pelvis suggestive of inflammatory or infectious colitis. There are scattered diverticuli in the sigmoid colon but no suspicion for diverticulitis. There is small amount of free fluid in the pelvis and abdominal wall edema/cellulitis. Also visualized is presacral soft tissue thickening or inflammatory response. 3. Bilateral small pleural effusions with underlying atelectasis. 4. Bilateral renal cysts and calyceal diverticulum upper pole left kidney. Fleischner guidelines were followed.
--- NOTE | 2023-05-26 07:29 | MHC.SHP ---
Pre-Procedural Eval Section A - 24 Hr Update-Section A only Date of Service: 05/26/23 The patient is an INPATIENT: No Changes since office visit: No Cold of Flu in the past 2 weeks, No New Medical Problems, No Changes in Medication and No Patient answered all questions The patient has been examined within 24 hours of the surgical procedure. The History & Physical has been completed within 30 days and I have reviewed it.: Yes Section B - Complete if H&P > 30 days Chief Complaint: LTKA Allergies: Allergies Allergy/AdvReac Type Severity Reaction Status Date / Time hazelnut Allergy Mild per Verified 05/25/23 14:53 allergy skin test peanut Allergy Mild per Verified 05/25/23 14:53 allergy skin test Plan I have reviewed the history and physical and performed a pertinent physical examination on my patient. No changes have occurred unless specified. Time Spent With Patient Time: Total time managing care of this patient today ____ minutes.
[2023-05-26] MEDS: Lactated Ringers 1,000 ML 100 ML IVCONT (08:17)
[2023-05-26 08:29] LABS: Glucose, Whole Blood 220 mg/dL (60-115)
--- NOTE | 2023-05-26 10:48 | P.BOP_ITS ---
Brief Operative Note Date of Service: 05/26/23 Pre-op diagnosis: Left knee OA Post-op diagnosis: same Procedure: Left TKA Implants: [place] [employer] 05/16/PS/29a cemented Surgeon: Vijay Weems MD Anesthesia: MAC, regional and spinal Was an Instrument Repair Supervisor used for this Procedure?: Yes Instrument Repair Supervisor: Catarino Nava Estimated blood loss (mL): 25 Tourniquet time (min): 43 IV fluids (mL): 850 Pathology: other Condition: stable Disposition: PACU
[2023-05-26] MEDS: oxyCODONE HCl Immed Release 5 MG TABLET PO ×2 (11:12→14:21)
[2023-05-26] MEDS: fentaNYL citrate/PF 100 MCG/2 ML VIAL 50 MCG IVPUSH ×2 (11:13→11:18)
[2023-05-26] MEDS: HYDROmorphone HCl 0.5 MG/0.5 ML SYRINGE IVPUSH ×2 (11:25→12:00)
[2023-05-26] MEDS: ondansetron HCL 4 MG/2 ML VIAL IVPUSH (12:16)
--- NOTE | 2023-05-26 13:28 | HO.PM.IMCN ---
History of Present Illness Data of Consult Service Date: 05/26/23 Requesting physician: Shruthi Anguiano Primary Care Provider: Breanna Zamudio NP HPI Reason for consult: medical management 68 year old female with history of htn, asthma/copd overlap, type 2 diabetse, hld, gerd, admitted to orthopedic surgery for management of OA L knee s/p L TKA with consult placed to hospitalist service for medical management. The patient is reporting lightheadedness and nausea s/p procedure. No vomiting, sob, chest pain, syncope. She also reports significant suprapubic pressure. Did have spinal nerve block during procedure. She reports having been incontinent small amounts of urine but has not fully emptied her bladder. No dysuria, hematuria, urgency. No fevers or chills. Review of Systems Review of Systems: Yes all other systems are reviewed and are negative [facility] Medical History Colitis, infectious Chronic restrictive lung disease Obesity (BMI 30.0-34.9) Cough due to SHANELLE inhibitor Eosinophilia Asthma HTN (hypertension) T2DM (type 2 diabetes mellitus) Erosive gastritis Leg edema, left Hyperparathyroidism Vitamin D deficiency Multinodular thyroid Thyroid nodule Skin lesion of chest wall Type 2 diabetes mellitus with diabetic polyneuropathy Fibromyalgia Depression with anxiety Cervical cancer Osteoarthritis of left knee Osteopenia GERD (gastroesophageal reflux disease) Diabetes mellitus with hyperglycemia Meir's disease Other specified acquired hypothyroidism Hyperlipidemia LDL goal <100 Essential hypertension Vitamin B12 deficiency Other obesity due to excess calories BMI 35.0-35.9,adult Family History Father CVD (cardiovascular disease) Diabetes mellitus Stroke Mother Stroke Diabetes mellitus Breast cancer Hyperthyroidism Surgical History Hx of elbow surgery Hx of hand surgery Hx of arthroscopic knee surgery History of cholecystectomy History of arthroplasty of right knee Hx of hysterectomy Hx of foot surgery History of bilateral carpal tunnel release Hx of bilateral oophorectomy History of esophagogastroduodenoscopy (EGD) Hx of colonoscopy Social History Household Members: Spouse Housing: House Housing Other:: 2nd floor-2 family house Are you a primary youth care specialist to a significant other at home: No Do you presently have visiting nurse or other home services: Yes (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) Alcohol intake: never Patient Tobacco Use Status: Never used Tobacco service: No 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al status: disabled 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 Allergies Allergy/AdvReac Type Severity Reaction Status Date / Time hazelnut Allergy Mild per Verified 05/26/23 07:56 allergy skin test peanut Allergy Mild per Verified 05/26/23 07:56 allergy skin test Active Medications: Current Medications Acetaminophen (Acetaminophen 325 Mg Tablet) 650 mg PO Q6H PRN PRN Reason: Pain, Mild (Pain Scale 1-3) Albuterol Sulfate (Albuterol Sulfate 90 Mcg 8 Gm Inhaler) 2 puff INHALE RQ4H PRN PRN Reason: Wheezing Albuterol Sulfate (Albuterol Sulfate (0.042%) 1.25 Mg/3 Ml Vial.Neb) 1.25 mg INHALE RQ4H PRN PRN Reason: wheezing Aspirin (Aspirin 325 Mg Tablet) 325 mg PO BID [facility] Celecoxib (Celecoxib 200 Mg Capsule) 200 mg PO BID [facility] Clonidine HCl (Clonidine Hcl 0.2 Mg Tablet) 0.2 mg PO BEDTIME [facility]; Protocol Cyanocobalamin (Cyanocobalamin (Vitamin B-12) 1,000 Mcg Tablet) 1,000 mcg PO DAILY [facility] Docusate Sodium (Docusate Sodium 100 Mg Capsule) 100 mg PO BID [facility] Fentanyl (Fentanyl Citrate/Pf 100 Mcg/2 Ml Vial) 50 mcg IVPUSH Q5M PRN; Protocol PRN Reason: Pain, Moderate(Pain Scale 4-6) Last Admin: 05/26/23 11:18 Dose: 50 mcg Fluticasone Propionate (Fluticasone Propionate Nasal 16 Gm [place]) 1 spray NOSTRIL-B DAILY [facility] Fluticasone/Umeclidinium/Vilanterol (Fluticasone/Umeclidinium/Vilanterol 200/62.5/25 Blst.W.Dev) 1 puff INHALE DAILY [facility] Gabapentin (Gabapentin 300 Mg Capsule) 300 mg PO BEDTIME [facility] Hydromorphone HCl (Hydromorphone Hcl 0.5 Mg/0.5 Ml Syringe) 0.5 mg IVPUSH Q5M PRN; Protocol PRN Reason: Pain, Severe (Pain Scale 7-10) Last Admin: 05/26/23 12:00 Dose: 0.5 mg Hydromorphone HCl (Hydromorphone Hcl 0.5 Mg/0.5 Ml Syringe) 0.25 mg IVPUSH Q4H PRN; Protocol PRN Reason: Pain, Severe (Pain Scale 7-10) Hydroxyzine HCl (Hydroxyzine Hcl 50 Mg Tablet) 50 mg PO Q8H PRN PRN Reason: anxiety Cefazolin Sodium/Dextrose (Ancef) 2 gm in 50 mls @ 100 mls/hr IV POSTOP ONE Stop: 05/26/23 13:48 Levothyroxine Sodium (Levothyroxine Sodium 75 Mcg Tablet) 75 mcg PO DAILY@0600 [facility] Meclizine HCl (Meclizine Hcl 25 Mg Tablet) 25 mg PO DAILY PRN PRN Reason: dizziness Metoprolol Succinate (Metoprolol Succinate Er 100 Mg Tab.Er.24h) 200 mg PO DAILY [facility]; Protocol Multivitamins/Vitamin C (Multivitamin Tablet) 1 tab PO DAILY [facility] Non-Formulary Medication (Dexlansoprazole) 60 mg PO DAILY@0630 [facility] Non-Formulary Medication (Linaclotide [Linzess]) 290 mcg PO QAM [facility] Non-Formulary Medication (Mecobalamin (Vitamin B12)) 1,000 mcg PO DAILY [facility] Ondansetron HCl (Ondansetron Hcl 4 Mg/2 Ml Vial) 4 mg IVPUSH Q8H PRN PRN Reason: Nausea and Vomiting Oxycodone HCl (Oxycodone Hcl Immed Release 5 Mg Tablet) 5 mg PO Q4H PRN PRN Reason: Pain, Moderate(Pain Scale 4-6) Oxycodone HCl (Oxycodone Hcl Er 10 Mg Tab.Er.12h) 10 mg PO BID [facility] Sodium Chloride (0.9 % Sodium Chloride Flush 3 Ml Syringe) 3 ml IVFLUSH QSHIFT [facility] Trazodone HCl (Trazodone Hcl 100 Mg Tablet) 300 mg PO BEDTIME [facility] Verapamil HCl (Verapamil Hcl Sr 180 Mg Tablet.Er) 180 mg PO DAILY [facility]; Protocol Home Medications Medication Instructions Recorded Confirmed Last Taken Type hydrochlorothiazide 50 mg tablet 50 mg PO DAILY 02/29/20 05/21/23 05/25/23 History blood sugar diagnostic #10 ea 03/19/20 05/21/23 02/26/23 History hydroxyzine HCl 50 mg tablet 50 mg PO Q8H PRN anxiety 03/19/20 05/21/23 05/25/23 History lisinopril 40 mg tablet 40 mg PO DAILY 03/19/20 05/21/23 05/25/23 History tramadol 50 mg tablet 50 mg PO TID PRN Pain 03/19/20 05/21/23 Unknown History metoprolol succinate 200 mg 200 mg PO DAILY 07/09/20 05/21/23 05/26/23 01:00 History tablet,extended release 24 hr trazodone 150 mg tablet 300 mg PO BEDTIME 07/09/20 05/21/23 05/25/23 History lancets 33 gauge (OneTouch Deldeja #100 ea 04/17/21 05/21/23 02/26/23 History Plus Lancet) verapamil 180 mg tablet,extended 180 mg PO DAILY 10/17/21 05/21/23 05/26/23 01:00 History release albuterol sulfate 0.63 mg/3 mL 1 amp inhalation Q4H PRN wheezing 03/24/22 05/21/23 Unknown History solution for nebulization aspirin 81 mg tablet,delayed 1 tab PO DAILY 03/24/22 05/21/23 05/19/23 History release levothyroxine 75 mcg tablet 75 mcg PO DAILY@0600 03/24/22 05/21/23 05/26/23 01:00 History multivitamin-ferrous 1 tab PO DAILY 03/24/22 05/21/23 05/25/23 History fumarate-folic acid 18 mg-400 mcg tablet (Certavite-Antioxidant) clonidine HCl 0.1 mg tablet 0.2 mg PO BEDTIME 02/28/23 05/21/23 05/25/23 History cyanocobalamin (vitamin B-12) 1,000 mcg PO DAILY 02/28/23 05/21/23 05/25/23 History 1,000 mcg sublingual tablet dexlansoprazole 60 mg 60 mg PO DAILY@0630 02/28/23 05/21/23 05/26/23 01:00 History capsule,biphase delayed release empagliflozin 25 mg tablet 25 mg PO QAM 02/28/23 05/21/23 05/11/23 History (Jardiance) insulin glargine 100 unit/mL (3 34 unit subcut BEDTIME 1205/21/23 05/25/23 History mL) subcutaneous pen (Lantus Solostar U-100 Insulin) pioglitazone 15 mg tablet 15 mg PO QAM 02/28/23 05/21/23 05/25/23 History semaglutide 0.25 mg or 0.5 mg (2 0.5 mg subcut MO@0900 02/28/23 05/21/23 05/11/23 History mg/3 mL) subcutaneous pen injector (Ozempic) venlafaxine 150 mg 150 mg PO DAILY 05/20/23 05/21/23 05/25/23 History capsule,extended release 24 hr fluticasone propionate 50 1 spray intranasal DAILY 05/25/23 05/26/23 05/25/23 History mcg/actuation nasal spray,suspension furosemide 40 mg tablet 40 mg PO DAILY 05/25/23 05/25/23 History fluticasone fur. 200 mcg-umeclid 1 ea inhalation DAILY 05/26/23 05/26/23 05/26/23 01:00 History 62.5 mcg-vilant 25 mcg inhalat.powder (Trelegy Ellipta) Physical Exam Vital Signs and Narrative: Vital Signs: Last Vital Signs Temp 97.3 F 05/26/23 12:49 Pulse 56 05/26/23 12:49 Resp 16 05/26/23 12:49 BP 178/83 H 05/26/23 12:49 Pulse Ox 96 05/26/23 12:49 O2 Del Method Nasal Cannula wit h Capnography 05/26/23 12:49 O2 Flow Rate 2 05/26/23 12:49 BMI result Body Mass Index 36.4 Constitutional - Awake and Alert, No apparent distress Eyes - PERRLA, EOMI Cardiovascular - S1S2, RRR, No edema Respiratory - Normal lung expansion, Normal respiratory effort, No respiratory distress, CTA bilaterally Gastrointestinal - suprapubic ttp with mild distension, +BS; No rebound or guarding Extremities - no calf tenderness bilaterally, no swelling Skin - Warm/Dry Neurological - Alert & oriented x3, CN II-XII in tact Psychological - Appropriate affect Results Labs Labs: Laboratory Results - last 24 hr 05/26/23 08:22 POC Glucose 220 H Assessment and Plan (1) Osteoarthritis of left knee: Qualifiers: Osteoarthritis type: primary Qualified Code(s): M17.12 - Unilateral primary osteoarthritis, left knee Status: Acute Plan 68 year old female with history of htn, asthma/copd overlap, type 2 diabetes, hld, gerd, admitted to orthopedic surgery for management of OA L knee s/p L TKA with consult placed to hospitalist service for medical management. #OA L knee s/p TKA POD 0 -plan per ortho surgery -lightheadedness and nausea likely r/t anesthesia. No focal neuro deficits #Urinary retention -Bladder scan ordered- 1.2L, drained with straight cath -prn bladder scan #Type 2 diabetes -poc glucose, diabetic diet -dose adjsuted basal insulin -humalog on ss #HTN -resume metoprolol, lisinopril, hctz am #asthma/copd overlap -no exacerbation -continue inhalers, albuterol prn #gerd -ppi #Hypothyroidism -continue synthroid Thank you for allowing me to participate in this consult. Signing off at this time. Please do not hesitate to call for further questions.
[2023-05-26] MEDS: ceFAZolin Sodium/Dextrose,Iso 2 GM/50 ML PIGGYBACK IV (14:23)
--- NOTE | 2023-05-26 14:48 | PC.NURSE ---
Upon admission- patient reported the need to void. PT and this customs entry writer assisted patient out of bed with a walker to the toilet. As patient was exiting the bed, she had an episode of urinary incontinence. Patient was unable to void in toilet. When assisted back to bed, patient experienced a second episode of incontinence while ambulating. Patient requesting urinary catheter be placed. Education provided with pressfitter to patient and about urinary catheter use.
--- NOTE | 2023-05-26 15:39 | PC.NURSE ---
Patient bladder scanned at 1500 for 1279mL. Patient straight cathed for 1200mL at 1515 with secondary RN assisting. PVR 101mL. Patient tolerated well.
[2023-05-26] MEDS: HYDROmorphone HCl 0.5 MG/0.5 ML SYRINGE 0.25 MG IVPUSH ×2 (16:14→21:23)
[2023-05-26] MEDS: 0.9 % Sodium Chloride Flush 3 ML SYRINGE IVFLUSH (16:16)
[2023-05-26 16:38] LABS: Glucose, Whole Blood 292 mg/dL (60-115)
[2023-05-26] MEDS: Insulin Lispro 100 UNIT/ML 3 ML VIAL SUBCUT ×2 (16:51→21:23)
[2023-05-26] MEDS: oxyCODONE HCl Immed Release 5 MG TABLET 10 MG PO (19:49)
[2023-05-26 20:08] LABS: Glucose, Whole Blood 259 mg/dL (60-115)
--- NOTE | 2023-05-26 20:30 | PC.NURSE ---
Approximately 1815- bladder scanned for 510mL. Straight catheterization completed at approximately 1920 with 600mL of clear yellow urine. Patient tolerated procedure well. CHEMA Devi notified. Ramos ordered for retention and urology consult placed by provider.
[2023-05-26] MEDS: oxyCODONE HCl ER 10 MG TAB.ER.12H PO (21:21)
[2023-05-26] MEDS: Gabapentin 300 MG CAPSULE PO (21:22)
[2023-05-26] MEDS: Docusate Sodium 100 MG CAPSULE PO (21:22)
[2023-05-26] MEDS: Insulin Glargine,Hum.rec.anlog 100 UNIT/ML 10 ML VIAL 25 UNIT SUBCUT (21:22)
[2023-05-26] MEDS: traZODone HCL 100 MG TABLET 300 MG PO (21:22)
[2023-05-26] MEDS: Celecoxib 200 MG CAPSULE PO (21:22)
[2023-05-26] MEDS: cloNIDine HCL 0.2 MG TABLET PO (21:22)
--- NOTE | 2023-05-26 22:30 | PC.NURSE ---
Ramos ordered for urinary retention. Placed by this RN at 2220 with secondary RN assisting. Sterile technique maintained. Immediate output- 200mL of clear yellow urine. Patient tolerated well. Securement device in place. Faith-care provided. CAUTI prevention interventions completed. Refer to urinary catheter maintenance for further details.
[2023-05-27] VITALS (11 sets, daily range): BP systolic 95–155; BP diastolic 48–67; PULSE 56–90; RESP 16–20; TEMP 36–36.5; O2SAT 89–93
[2023-05-27] MEDS: 0.9 % Sodium Chloride Flush 3 ML SYRINGE IVFLUSH ×3 (00:48→16:39)
[2023-05-27] MEDS: HYDROmorphone HCl 0.5 MG/0.5 ML SYRINGE 0.25 MG IVPUSH ×2 (05:28→13:37)
[2023-05-27] MEDS: Levothyroxine Sodium 75 MCG TABLET PO (05:33)
[2023-05-27] MEDS: Omeprazole 40 MG CAPSULE.DR PO (05:33)
[2023-05-27 05:35] LABS: MANUAL DIFF FLAG NO
[2023-05-27 05:50] LABS: Basophils Percent Auto 0.3 % (0-2); Eosinophils Absolute Auto 0.1 X10*3/uL (0.0-0.4); Eosinophils Percent Auto 0.9 % (0-4); Hematocrit 39.2 % (37.0-47.0); Hemoglobin 13.4 g/dl (12.0-16.0); Imm Gran Abs Auto 0.04 X10*3/uL (0.00-0.03); Imm Gran Pct Auto 0.3 % (0.0-0.4); Lymphocytes Absolute Auto 2.2 X10*3/uL (1.2-4.9); Lymphocytes Percent Auto 18.1 % (20-40); Mean Corpuscular HGB Conc 34.2 g/dl (31.0-35.0); Mean Corpuscular Hemoglobin 27.8 pg (27.0-33.0); Mean Corpuscular Volume 81.3 fL (80.0-98.0); Mean Platelet Volume 9.8 fL (9.4-12.3); Monocytes Absolute Auto 1.3 X10*3/uL (0.1-1.2); Monocytes Percent Auto 10.6 % (2-11); Neutrophils Absolute Auto 8.3 x10*3/uL (2.0-8.3); Neutrophils Percent Auto 69.8 % (45-73); Platelet Count 193 X10*3/uL (160-400); Red Blood Count 4.82 X10*6/uL (4.20-5.50); Red Cell Distribution Width 13.3 % (11.0-16.0); White Blood Count 11.9 X10*3/uL (4.8-10.8)
[2023-05-27 05:59] LABS: Anion Gap 12 (12-20); Blood Urea Nitrogen 15 mg/dL (9-16); Calcium 8.9 mg/dL (8.4-10.2); Carbon Dioxide 28 mmol/L (22-29); Chloride 100 mmol/L (96-108); Creatinine Clr Calc Pharmacy 46.9; Estimated Glomerular Filt Rate 45; Glucose Fasting 238 mg/dL (60-99); Potassium 4.2 mmol/L (3.3-5.1); Sodium 136 mmol/L (135-145)
[2023-05-27 07:22] LABS: Glucose, Whole Blood 242 mg/dL (60-115)
--- NOTE | 2023-05-27 07:44 | P.PNOP_ITS ---
Subjective Subjective Date of Service: 05/27/23 Interval history: POD 1 s/p LT TKA no overnight events resting in bed difficulty with pain control overnght denies cp, palpitations, sob Physical Exam Vital Signs: Vital Signs: Last Vital Signs Temp 97.7 F 05/27/23 07:32 Pulse 90 05/27/23 07:32 Resp 16 05/27/23 07:32 BP 155/67 H 05/27/23 07:32 Pulse Ox 90 L 05/27/23 07:32 O2 Del Method Room Air 05/27/23 07:32 O2 Flow Rate 2 05/26/23 12:49 BMI result Body Mass Index 36.4 Const: General: cooperative, healthy appearing and no acute distress Resp: Effort & Inspection: normal respiratory effort and able to speak in complete sentences Cardio: Rate: regular rate Peripheral pulses: Peripheral pulses 2+ throughout GI: Palpation (GI): Soft to palpation Skin: General skin exam: no rashes or lesions noted Extrem: Other: bandage clean dry and intact. [place] intact. No erythema or joint effusion. Calf supple nontender. Neurovascularly intact. Procedures Date of Service Date of Service: 05/27/23 Progress Note: A&P Assessment and plan (1) Status post total left knee replacement: Status: Acute Assessment and Plan: * Continue pain mgmnt * Begin Aspirin for dvt ppx * begin PT for LT TKA * Dispo planning-Pending PT eval, pain mgmnt Need for continued inpatient stay: pain control and PT Time Spent With Patient Time: Total time managing care of this patient today ____ minutes. Quality Stroke Does the patient have a stroke diagnosis?: No VTE Prior VTE?: No VTE Risk Level:: Surgical - very high VTE Device Contraindication: N/A - Device Ordered VTE Drug Contraindication: N/A - Med Ordered
[2023-05-27] MEDS: Metoprolol Succinate ER 100 MG TAB.ER.24H 200 MG PO (08:02)
[2023-05-27] MEDS: Insulin Lispro 100 UNIT/ML 3 ML VIAL SUBCUT ×4 (08:02→21:10)
[2023-05-27] MEDS: VerapamiL HCL SR 180 MG TABLET.ER PO ×2 (08:02→12:28)
[2023-05-27] MEDS: Multivitamin TABLET 1 TAB PO (08:03)
[2023-05-27] MEDS: oxyCODONE HCl Immed Release 5 MG TABLET 10 MG PO ×4 (08:03→21:09)
[2023-05-27] MEDS: lisinopriL 40 MG TABLET PO (08:03)
[2023-05-27] MEDS: Docusate Sodium 100 MG CAPSULE PO ×2 (08:03→21:08)
[2023-05-27] MEDS: Celecoxib 200 MG CAPSULE PO ×2 (08:03→21:08)
[2023-05-27] MEDS: Cyanocobalamin (Vitamin B-12) 1,000 MCG TABLET 1000 MCG PO (08:03)
[2023-05-27] MEDS: oxyCODONE HCl ER 10 MG TAB.ER.12H PO ×2 (08:03→21:07)
[2023-05-27] MEDS: hydroCHLOROthiazide 50 MG TABLET PO (08:03)
[2023-05-27] MEDS: Fluticasone Propionate Nasal 16 GM SPRAY 1 SPRAY NOSTRIL-B (08:04)
[2023-05-27] MEDS: Fluticasone/Umeclidinium/Vilanterol 200/62.5/25 BLST.W.DEV 1 PUFF INHALE (08:08)
--- NOTE | 2023-05-27 08:55 | HO.POSTANES ---
Post Anesthesia Evaluation Post Anesthesia Evaluation Date of Service: 05/27/23 Vital Signs: Vital Signs Temp Pulse Resp BP Pulse Ox O2 Del Method 05/27/23 08:10 89 16 05/27/23 07:51 97.7 F 90 18 155/67 H 90 L Room Air 05/27/23 07:32 97.7 F 90 16 155/67 H 90 L Room Air 05/27/23 03:20 97.3 F 83 18 123/58 L 93 Room Air Anesthesia: Spinal and Nerve Block Mental Status: Awake Pain Control: Satisfactory (difficulty controlling pain) Nausea/Vomiting: None Hydration: Adequate Anesthesia-Related Issues: No Anes. Related Issues
--- NOTE | 2023-05-27 10:32 | MHC.CM.PN ---
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
[2023-05-27 11:23] LABS: Glucose, Whole Blood 234 mg/dL (60-115)
[2023-05-27] MEDS: Aspirin 325 MG TABLET PO ×2 (11:48→21:08)
--- NOTE | 2023-05-27 11:50 | PHA.MEDREC ---
Pharmacy Consult ? Medication Reconciliation Pharmacy has completed the medication reconciliation.med rec was completed by nursing, a couple of questions were confirmed with patient by pharmacist as well.
[2023-05-27] MEDS: Acetaminophen 325 MG TABLET 650 MG PO ×2 (12:28→19:52)
--- NOTE | 2023-05-27 15:44 | PC.NURSE ---
Hylton cath was inserted yesterday for urine retention. Consult to Urology but not seen. Catarino BEAR preferred cath be removed. Clean catch urine collected from hylton before removal at 1400. DTV @ 1999.
[2023-05-27 16:22] LABS: Glucose, Whole Blood 277 mg/dL (60-115)
--- NOTE | 2023-05-27 19:32 | PC.NURSE ---
HOLLY Jones reported low BP reading 85/35 ,went in to assess ,BP 103/48 pulse 61,patient states she feels tired but no other complaints,pt does not have IV fluids ordered, Dr. Rea notified
[2023-05-27] MEDS: Lactated Ringers 1,000 ML 125 ML IVCONT (19:45)
[2023-05-27 20:10] LABS: Glucose, Whole Blood 209 mg/dL (60-115)
[2023-05-27] MEDS: Insulin Glargine,Hum.rec.anlog 100 UNIT/ML 10 ML VIAL 25 UNIT SUBCUT (21:01)
--- NOTE | 2023-05-27 21:05 | PC.NURSE ---
BP 112/53 pulse 60 ,will hold Clonidine tonight per Dr. Rea
[2023-05-27] MEDS: traZODone HCL 100 MG TABLET 300 MG PO (21:08)
[2023-05-27] MEDS: Gabapentin 300 MG CAPSULE PO (21:08)
--- NOTE | 2023-05-27 21:13 | PC.NURSE ---
Addendum entered by Juanis Oleary RN 05/27/23 23:28: bladder scan 455 ml,patient unable to urinate,str cath for 350 ml of chandana urine,patient tolerated it well. Original Note: P unable to urinate yet,Bladder scanned for 303 ml,denies any discomfort,will bladder scan at [id number]
--- NOTE | 2023-05-27 22:49 | PC.NURSE ---
Called into patient room by HOLLY Jones reporting low sat,oxygen Sat 89 on 2 l,patient not in distress,Oxygen increased to 4l ,sat up to 94%,family at the bedside have concerns about patient being tired and sleepy,explained that it is an effect from pain meds,BP 95/53,pulse 56,Dr. Rea notified and came in to assess patient.Oxygen decreased to 2 L ,sat 92%,will monitor.
[2023-05-28] VITALS (9 sets, daily range): BP systolic 91–139; BP diastolic 50–83; PULSE 61–89; RESP 12–18; TEMP 36.1–36.6; O2SAT 90–94
[2023-05-28] MEDS: oxyCODONE HCl Immed Release 5 MG TABLET 10 MG PO ×2 (01:19→05:31)
[2023-05-28] MEDS: Lactated Ringers 1,000 ML 125 ML IVCONT (04:38)
--- NOTE | 2023-05-28 04:55 | PC.NURSE ---
bp after one liter of fluid 91/[address] WILDE is aware one more liter of fluid given as ordered, will monitor
--- NOTE | 2023-05-28 04:58 | PC.NURSE ---
430 am pt ambulated to BR VOID very small amount bladder scan for >475 ml WE MAKE AWARE
[2023-05-28] MEDS: Omeprazole 40 MG CAPSULE.DR PO (05:31)
[2023-05-28] MEDS: Levothyroxine Sodium 75 MCG TABLET PO (05:31)
--- NOTE | 2023-05-28 05:47 | PC.NURSE ---
ortho Ta-Brandy notified pt still has difficulty to void after very small amount in br ;bladder scan for > 475 ml . f/c placed as ordered
[2023-05-28] MEDS: Fluticasone/Umeclidinium/Vilanterol 200/62.5/25 BLST.W.DEV 1 PUFF INHALE (07:39)
[2023-05-28 07:48] LABS: Glucose, Whole Blood 234 mg/dL (60-115)
[2023-05-28] MEDS: Insulin Lispro 100 UNIT/ML 3 ML VIAL SUBCUT ×4 (08:14→20:58)
[2023-05-28] MEDS: Multivitamin TABLET 1 TAB PO (08:18)
[2023-05-28] MEDS: Cyanocobalamin (Vitamin B-12) 1,000 MCG TABLET 1000 MCG PO (08:18)
[2023-05-28] MEDS: Celecoxib 200 MG CAPSULE PO ×2 (08:18→21:14)
[2023-05-28] MEDS: Aspirin 325 MG TABLET PO ×2 (08:18→20:54)
[2023-05-28] MEDS: oxyCODONE HCl ER 10 MG TAB.ER.12H PO (08:18)
[2023-05-28] MEDS: Metoprolol Succinate ER 100 MG TAB.ER.24H 200 MG PO (08:18)
[2023-05-28] MEDS: Docusate Sodium 100 MG CAPSULE PO ×2 (08:18→20:58)
[2023-05-28] MEDS: Fluticasone Propionate Nasal 16 GM SPRAY 1 SPRAY NOSTRIL-B (08:19)
--- NOTE | 2023-05-28 08:28 | P.CNUR_ITS ---
History of Present Illness Consult details Consult date: 05/28/23 Narrative: 68 year old female with history of htn, asthma/copd overlap, type 2 diabetse, hld, gerd, admitted to orthopedic surgery for management of OA L knee s/p L TKA. No vomiting, sob, chest pain, syncope. Did have spinal nerve block during procedure. No dysuria, hematuria, urgency. No fevers or chills. Denies any voiding issues. Denies urinary incontinence. Consult for urinary retention. She was cathed for 1.2 L and 600 mL, hylton in place. urine c/s sent 05/27/23 pending Review of Systems 2 Review of Systems: Yes all other systems are reviewed and are negative Constitutional: Constitutional: Reports no additional constitutional complaints Eyes: Eyes: Reports no additional eye complaints ENT: Reports system reviewed and no additional complaints, except as documented Cardiovascular: Cardiovascular: Denies dyspnea Respiratory: Respiratory: Denies cough and Denies dyspnea Gastrointestinal: Gastrointestinal: Reports no additional gastrointestinal complaints Genitourinary: Genitourinary: Reports no additional female genitourinary complaints Musculoskeletal: Musculoskeletal: Reports no additional musculoskeletal complaints Integumentary/Breasts: Skin/Breast: Denies unusual bruising Neurologic: Reports system reviewed and no additional complaints, except as documented Psychiatric: Psychiatric: Reports no additional psychiatric complaints Endocrine: Endocrine: Reports no additional endocrine complaints Hematologic/Lymphatic: Hematologic/Lymphatic: Reports no additional hematologic/lymphatic complaints Allergic/Immunologic: Allergic/Immunologic: Reports no additional allergic/immunologic complaints [facility] Past Medical History Medical History Colitis, infectious Chronic restrictive lung disease Obesity (BMI 30.0-34.9) Cough due to SHANELLE inhibitor Eosinophilia Asthma HTN (hypertension) T2DM (type 2 diabetes mellitus) Erosive gastritis Leg edema, left Hyperparathyroidism Vitamin D deficiency Multinodular thyroid Thyroid nodule Skin lesion of chest wall Type 2 diabetes mellitus with diabetic polyneuropathy Fibromyalgia Depression with anxiety Cervical cancer Osteoarthritis of left knee Osteopenia GERD (gastroesophageal reflux disease) Diabetes mellitus with hyperglycemia Meir's disease Other specified acquired hypothyroidism Hyperlipidemia LDL goal <100 Essential hypertension Vitamin B12 deficiency Other obesity due to excess calories BMI 35.0-35.9,adult Family History Family History Father CVD (cardiovascular disease) Diabetes mellitus Stroke Mother Stroke Diabetes mellitus Breast cancer Hyperthyroidism Surgical History Surgical History Hx of elbow surgery Hx of hand surgery Hx of arthroscopic knee surgery History of cholecystectomy History of arthroplasty of right knee Hx of hysterectomy Hx of foot surgery History of bilateral carpal tunnel release Hx of bilateral oophorectomy History of esophagogastroduodenoscopy (EGD) Hx of colonoscopy Social History Social History Household Members: Spouse Housing: House Housing Other:: 2nd floor-2 family house Are you a primary complex care nurse practitioner to a significant other at home: No Do you presently have visiting nurse or other home services: Yes ([facility]) Alcohol intake: never Patient Tobacco Use Status: Never used Tobacco service: No 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al status: disabled 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 Allergies Allergy/AdvReac Type Severity Reaction Status Date / Time hazelnut Allergy Mild per Verified 05/26/23 07:56 allergy skin test peanut Allergy Mild per Verified 05/26/23 07:56 allergy skin test Active Medications: Current Medications Acetaminophen (Acetaminophen 325 Mg Tablet) 650 mg PO Q6H PRN PRN Reason: Pain, Mild (Pain Scale 1-3) Last Admin: 05/27/23 19:52 Dose: 650 mg Albuterol Sulfate (Albuterol Sulfate 90 Mcg 8 Gm Inhaler) 2 puff INHALE RQ4H PRN PRN Reason: Wheezing Albuterol Sulfate (Albuterol Sulfate (0.042%) 1.25 Mg/3 Ml Vial.Neb) 1.25 mg INHALE RQ4H PRN PRN Reason: wheezing Aspirin (Aspirin 325 Mg Tablet) 325 mg PO BID [facility] Last Admin: 05/28/23 08:18 Dose: 325 mg Celecoxib (Celecoxib 200 Mg Capsule) 200 mg PO BID [facility] Last Admin: 05/28/23 08:18 Dose: 200 mg Clonidine HCl (Clonidine Hcl 0.2 Mg Tablet) 0.2 mg PO BEDTIME [facility]; Protocol Last Admin: 05/27/23 21:09 Dose: Not Given Cyanocobalamin (Cyanocobalamin (Vitamin B-12) 1,000 Mcg Tablet) 1,000 mcg PO DAILY [facility] Last Admin: 05/28/23 08:18 Dose: 1,000 mcg Dextrose (Dextrose 50 % 25 Gm/50 Ml Syringe) 25 gm IVPUSH Q15M PRN; Protocol PRN Reason: per Hypoglycemia Standing Ord. Docusate Sodium (Docusate Sodium 100 Mg Capsule) 100 mg PO BID [facility] Last Admin: 05/28/23 08:18 Dose: 100 mg Fluticasone Propionate (Fluticasone Propionate Nasal 16 Gm [place]) 1 spray NOSTRIL-B DAILY [facility] Last Admin: 05/28/23 08:19 Dose: 1 spray Fluticasone/Umeclidinium/Vilanterol (Fluticasone/Umeclidinium/Vilanterol 200/62.5/25 Blst.W.Dev) 1 puff INHALE DAILY [facility] Last Admin: 05/28/23 07:39 Dose: 1 puff Gabapentin (Gabapentin 300 Mg Capsule) 300 mg PO BEDTIME [facility] Last Admin: 05/27/23 21:08 Dose: 300 mg Glucose (Glucose Gel 15 Gm Gel..Gram.) 15 gm PO Q15M PRN; Protocol PRN Reason: per Hypoglycemia Standing Ord. Hydrochlorothiazide (Hydrochlorothiazide 50 Mg Tablet) 50 mg PO DAILY [facility]; Protocol Last Admin: 05/28/23 08:19 Dose: Not Given Hydromorphone HCl (Hydromorphone Hcl 0.5 Mg/0.5 Ml Syringe) 0.25 mg IVPUSH Q4H PRN; Protocol PRN Reason: Pain, Severe (Pain Scale 7-10) Last Admin: 05/27/23 13:37 Dose: 0.25 mg Hydroxyzine HCl (Hydroxyzine Hcl 50 Mg Tablet) 50 mg PO Q8H PRN PRN Reason: anxiety Lactated Ringer's (Lr) 1,000 mls @ 125 mls/hr IVCONT .Q8H ONE Stop: 05/28/23 11:41 Last Admin: 05/28/23 04:38 Dose: 125 mls/hr Insulin Glargine (Insulin Glargine,Hum.Rec.Anlog 100 Unit/Ml 10 Ml Vial) 25 unit SUBCUT BEDTIME [facility] Last Admin: 05/27/23 21:01 Dose: 25 unit Insulin Human Lispro (Insulin Lispro 100 Unit/Ml 3 Ml Vial) 0 unit SUBCUT QIDACHS [facility]; Protocol Last Admin: 05/28/23 08:14 Dose: 4 unit Levothyroxine Sodium (Levothyroxine Sodium 75 Mcg Tablet) 75 mcg PO DAILY@0600 [facility] Last Admin: 05/28/23 05:31 Dose: 75 mcg Lisinopril (Lisinopril 40 Mg Tablet) 40 mg PO DAILY [facility]; Protocol Last Admin: 05/28/23 08:19 Dose: Not Given Meclizine HCl (Meclizine Hcl 25 Mg Tablet) 25 mg PO DAILY PRN PRN Reason: dizziness Metoprolol Succinate (Metoprolol Succinate Er 100 Mg Tab.Er.24h) 200 mg PO DAILY [facility]; Protocol Last Admin: 05/28/23 08:18 Dose: 200 mg Multivitamins/Vitamin C (Multivitamin Tablet) 1 tab PO DAILY [facility] Last Admin: 05/28/23 08:18 Dose: 1 tab Non-Formulary Medication (Linaclotide [Linzess]) 290 mcg PO DAILY [facility] Omeprazole (Omeprazole 40 Mg Capsule.Dr) 40 mg PO DAILY@0630 [facility] Last Admin: 05/28/23 05:31 Dose: 40 mg Ondansetron HCl (Ondansetron Hcl 4 Mg/2 Ml Vial) 4 mg IVPUSH Q8H PRN PRN Reason: Nausea and Vomiting Oxycodone HCl (Oxycodone Hcl Er 10 Mg Tab.Er.12h) 10 mg PO BID [facility] Last Admin: 05/28/23 08:18 Dose: 10 mg Oxycodone HCl (Oxycodone Hcl Immed Release 5 Mg Tablet) 10 mg PO Q4H PRN PRN Reason: Pain, Moderate(Pain Scale 4-6) Last Admin: 05/28/23 05:31 Dose: 10 mg Sodium Chloride (0.9 % Sodium Chloride Flush 3 Ml Syringe) 3 ml IVFLUSH QSHIFT [facility] Last Admin: 05/28/23 08:19 Dose: Not Given Trazodone HCl (Trazodone Hcl 100 Mg Tablet) 300 mg PO BEDTIME [facility] Last Admin: 05/27/23 21:08 Dose: 300 mg Verapamil HCl (Verapamil Hcl Sr 180 Mg Tablet.Er) 360 mg PO DAILY [facility]; Protocol Last Admin: 05/28/23 08:20 Dose: Not Given Home Medications Medication Instructions Recorded Confirmed Last Taken Type hydrochlorothiazide 50 mg tablet 50 mg PO DAILY 12/05/21/23 05/25/23 History blood sugar diagnostic #10 ea 03/19/20 05/21/23 02/26/23 History hydroxyzine HCl 50 mg tablet 50 mg PO Q8H PRN anxiety 03/19/20 05/21/23 05/25/23 History lisinopril 40 mg tablet 40 mg PO DAILY 03/19/20 05/21/23 05/25/23 History metoprolol succinate 200 mg 200 mg PO DAILY 07/09/20 05/21/23 05/26/23 01:00 History tablet,extended release 24 hr trazodone 150 mg tablet 300 mg PO BEDTIME 07/09/20 05/21/23 05/25/23 History lancets 33 gauge (Jenelle Decker #100 ea 04/17/21 05/21/23 02/26/23 History Plus Lancet) verapamil 180 mg tablet,extended 360 mg PO DAILY 10/17/21 05/27/23 05/26/23 01:00 History release albuterol sulfate 0.63 mg/3 mL 1 amp inhalation Q4H PRN wheezing 03/24/22 05/21/23 Unknown History solution for nebulization levothyroxine 75 mcg tablet 75 mcg PO DAILY@0600 03/24/22 05/21/23 05/26/23 01:00 History multivitamin-ferrous 1 tab PO DAILY 03/24/22 05/21/23 05/25/23 History fumarate-folic acid 18 mg-400 mcg tablet (Certavite-Antioxidant) clonidine HCl 0.1 mg tablet 0.2 mg PO BEDTIME 02/28/23 05/21/23 05/25/23 History cyanocobalamin (vitamin B-12) 1,000 mcg PO DAILY 02/28/23 05/21/23 05/25/23 History 1,000 mcg sublingual tablet dexlansoprazole 60 mg 60 mg PO DAILY@0630 02/28/23 05/21/23 05/26/23 01:00 History capsule,biphase delayed release empagliflozin 25 mg tablet 25 mg PO QAM 02/28/23 05/21/23 05/11/23 History (Jardiance) insulin glargine 100 unit/mL (3 34 unit subcut BEDTIME 02/28/23 05/21/23 05/25/23 History mL) subcutaneous pen (Lantus Solostar U-100 Insulin) pioglitazone 15 mg tablet 15 mg PO QAM 02/28/23 05/21/23 05/25/23 History semaglutide 0.25 mg or 0.5 mg (2 0.5 mg subcut MO@0900 02/28/23 05/21/23 05/11/23 History mg/3 mL) subcutaneous pen injector (Ozempic) venlafaxine 150 mg 150 mg PO DAILY 05/20/23 05/27/23 05/25/23 History capsule,extended release 24 hr fluticasone propionate 50 1 spray intranasal DAILY 05/25/23 05/26/23 05/25/23 History mcg/actuation nasal spray,suspension furosemide 40 mg tablet 40 mg PO DAILY 05/25/23 05/27/23 05/25/23 History fluticasone fur. 200 mcg-umeclid 1 ea inhalation DAILY 05/26/23 05/26/23 05/26/23 01:00 History 62.5 mcg-vilant 25 mcg inhalat.powder (Trelegy Ellipta) psyllium husk 3 gram/5.4 gram oral 3 g PO DAILY 05/27/23 05/27/23 Unknown History powder (Reguloid (psyllium husk)) Physical Exam 2 Vital Signs: Vital Signs: Last Vital Signs Temp 97.1 F 05/28/23 07:26 Pulse 64 05/28/23 07:39 Resp 18 05/28/23 07:39 BP 111/53 L 05/28/23 07:26 Pulse Ox 94 05/28/23 07:26 O2 Del Method Nasal Cannula 05/28/23 07:26 O2 Flow Rate 2.0 05/28/23 07:26 BMI result Body Mass Index 36.4 Const: General: cooperative, healthy appearing and no acute distress O rientation/consciousness: patient oriented x3 HEENT: Head: Yes normal to inspection, Yes normocephalic and Yes atraumatic Eyes: Conjunctivae: conjunctivae normal Neck: Neck: Yes normal visual inspection and Yes trachea midline Chest: Chest palpation & inspection: normal inspection of the chest Resp: Effort & Inspection: normal respiratory effort Cardio: Rate: regular rate GI: Inspection: Yes normal to inspection Palpation (GI): Soft to palpation : Other: Hylton in place Skin: General skin exam: no rashes or lesions noted Neuro: General: patient oriented x3 Extrem: General: No edema Psych: Appearance: grossly normal Results Labs 05/28/23 09:07 05/28/23 09:07 Labs: Abnormal lab results 05/27/23 05/27/23 05/27/23 Range/Units 11:15 16:12 20:04 POC Glucose 234 H 277 H 209 H (60-115) mg/dL 05/28/23 Range/Units 07:29 POC Glucose 234 H (60-115) mg/dL Collected: 05/27/23-1334 Status: COMP Req#: [id number] Received: 05/27/23 Source: Urine Cath Sp Desc: Hylton Cath Subm Dr: Catarino Nava PA-C Ordered: Urine Culture Procedure Result Verified Urine Culture Final 05/28/23-1140 No growth. Assessment and Plan (1) Urinary retention: Status: Acute (2) Diabetes: Status: Acute Plan Cont hylton for now urine c/s resulted - No growth Diabetes - CoMorbidity Trial urocholine 25 mg bid Discharge with hylton, FU for voiding trial in my office on Thursday next week Procedures Date of Service Date of Service: 05/28/23
[2023-05-28] MEDS: HYDROmorphone HCl 0.5 MG/0.5 ML SYRINGE 0.25 MG IVPUSH (08:33)
[2023-05-28 09:32] LABS: MANUAL DIFF FLAG NO
[2023-05-28 09:34] LABS: Basophils Absolute Auto 0.1 X10*3/uL (0.0-0.2); Basophils Percent Auto 0.4 % (0-2); Eosinophils Absolute Auto 0.2 X10*3/uL (0.0-0.4); Eosinophils Percent Auto 1.5 % (0-4); Hemoglobin 12.4 g/dl (12.0-16.0); Imm Gran Abs Auto 0.06 X10*3/uL (0.00-0.03); Imm Gran Pct Auto 0.5 % (0.0-0.4); Lymphocytes Absolute Auto 2.2 X10*3/uL (1.2-4.9); Lymphocytes Percent Auto 19.5 % (20-40); Mean Corpuscular HGB Conc 33.5 g/dl (31.0-35.0); Mean Corpuscular Hemoglobin 27.6 pg (27.0-33.0); Mean Corpuscular Volume 82.2 fL (80.0-98.0); Mean Platelet Volume 9.8 fL (9.4-12.3); Monocytes Absolute Auto 0.9 X10*3/uL (0.1-1.2); Monocytes Percent Auto 8.1 % (2-11); Neutrophils Absolute Auto 7.8 x10*3/uL (2.0-8.3); Platelet Count 157 X10*3/uL (160-400); Red Cell Distribution Width 13.3 % (11.0-16.0); White Blood Count 11.2 X10*3/uL (4.8-10.8)
[2023-05-28 09:50] LABS: Anion Gap 10 (12-20); Blood Urea Nitrogen 21 mg/dL (9-16); Calcium 9.1 mg/dL (8.4-10.2); Carbon Dioxide 30 mmol/L (22-29); Chloride 99 mmol/L (96-108); Creatinine Clr Calc Pharmacy 45.8; Estimated Glomerular Filt Rate 44; Glucose Fasting 225 mg/dL (60-99); Potassium 4.1 mmol/L (3.3-5.1); Sodium 135 mmol/L (135-145)
[2023-05-28 11:35] LABS: Glucose, Whole Blood 229 mg/dL (60-115)
[2023-05-28 12:53] LABS: Glucose, Whole Blood 269 mg/dL (60-115)
[2023-05-28] MEDS: Naloxone HCl 0.4 MG/ML VIAL IVPUSH (12:59)
--- NOTE | 2023-05-28 13:15 | PM.EVENT ---
Event Note Date of Service: 05/28/23 Event Note: Called by RN Gina Ocampo to see pt urgently for altered mental status. Hospitalist re-consult had just been placed for concern of hypoxia/hypotension. Pt lethargic- not answering questions- but maintaining airway. Pinpoint pupils. SaO2 90 on2L, BP 139/83, P 61, R 10-12. Given 0.4mg IV naloxone and now pt awake, alert, oriented. Recommend decreasing doses of opioid analgesics. Time Spent With Patient Time: Total time managing care of this patient today ____ minutes.
--- NOTE | 2023-05-28 14:00 | PC.NURSE ---
Patient with increasing confusion and somnolence as day goes on. Arousable but slow to process and slurred speech. RR 12. BP 93/53. o2 sat 92% on 2L nc @ 1215. Orthopedics notified. Oxycontin d/c'd. Hospitalist consulted. Dr. Dawson in to assess patient. Ordered dose of IV narcan. Given with good effect @ 1256. Patient became alert, oriented, answering appropriately. BP immediately after narcan administration 139/83, RR 16.
[2023-05-28 16:23] LABS: Glucose, Whole Blood 338 mg/dL (60-115)
[2023-05-28] MEDS: 0.9 % Sodium Chloride Flush 3 ML SYRINGE IVFLUSH (17:40)
[2023-05-28 20:02] LABS: Glucose, Whole Blood 326 mg/dL (60-115)
[2023-05-28] MEDS: traZODone HCL 100 MG TABLET 300 MG PO (20:57)
[2023-05-28] MEDS: Gabapentin 300 MG CAPSULE PO (20:58)
[2023-05-28] MEDS: Bethanechol Chloride 25 MG TABLET PO (20:58)
[2023-05-28] MEDS: cloNIDine HCL 0.2 MG TABLET PO (21:03)
[2023-05-28] MEDS: Insulin Glargine,Hum.rec.anlog 100 UNIT/ML 10 ML VIAL 25 UNIT SUBCUT (21:10)
[2023-05-28] MEDS: Acetaminophen 325 MG TABLET 650 MG PO (21:11)
[2023-05-29] VITALS (25 sets, daily range): BP systolic 75–153; BP diastolic 43–80; PULSE 80–103; RESP 16–24; TEMP 36.1–36.8; O2SAT 91–100; BMI 38.0
--- NOTE | 2023-05-29 | ECG_ITS ---
Test Reason : hypotension Blood Pressure : / mmHG Vent. Rate : 089 BPM Atrial Rate : 089 BPM P-R Int : 146 ms QRS Dur : 086 ms QT Int : 364 ms P-R-T Axes : 041 002 019 degrees QTc Int : 442 ms Normal sinus rhythm Nonspecific T wave abnormality Abnormal ECG When compared with ECG of 26-FEB-2023 12:36, Nonspecific T wave abnormality now evident in Inferior leads QT has shortened Referred By: Vivi Rea Electronically Signed By:LIGIA BLANCAS MD
--- NOTE | 2023-05-29 | ECG_ITS ---
Test Reason : HYPOTENSION Blood Pressure : / mmHG Vent. Rate : 084 BPM Atrial Rate : 084 BPM P-R Int : 142 ms QRS Dur : 088 ms QT Int : 380 ms P-R-T Axes : 046 012 027 degrees QTc Int : 449 ms Normal sinus rhythm Normal ECG When compared with ECG of 29-MAY-2023 05:36, No significant change was found Referred By: Maya Rae Electronically Signed By:LIGIA BLANCAS MD
[2023-05-29] MEDS: 0.9 % Sodium Chloride Flush 3 ML SYRINGE IVFLUSH (00:40)
[2023-05-29 03:42] LABS: Glucose, Whole Blood 249 mg/dL (60-115)
[2023-05-29] MEDS: Naloxone HCl 2 MG/2 ML SYRINGE IVPUSH ×2 (04:02→06:42)
[2023-05-29] MEDS: Naloxone HCl Nasal 4 MG SPRAY NOSTRILALT (04:02)
[2023-05-29] MEDS: 0.9 % Sodium Chloride 1,000 ML 999 ML IV ×2 (04:02→06:40)
--- NOTE | 2023-05-29 04:08 | PM.EVENT ---
Event Note Date of Service: 05/29/23 Event Note: Rapid response was called as patient was lethargic. She was not answering questions. Pinpoint pupils. Patient woke up after IV Narcan. Able to answer questions and follow commands. Initial blood pressure with systolic 110 but repeat with systolic 90. Patient complaining of dizziness, will order crystalloid bolus. Repeat blood pressure after fluid resuscitation. Unable to obtain ABG, ordered VBG and troponin. Updated family at bedside. Oxygen saturation and heart rate okay Time Spent With Patient Time: Total time managing care of this patient today ____ minutes.
[2023-05-29 04:10] LABS: Venous Blood Gas Refer to POC result
[2023-05-29 04:11] LABS: VBG Base Excess -3.7 mmol/L; VBG HCO3 18 mmol/L (22-26); VBG pCO2 25 mmHg; VBG pH 7.46 (7.32-7.43); VBG pO2 63 mmHg
[2023-05-29 04:28] LABS: Troponin-I High Sensitivity 3.1 ng/L (<3.5-17.0)
--- NOTE | 2023-05-29 05:56 | P.PNCC_ITS ---
Critical Care Event Note Summary Date of Service: 05/29/23 Code activated: No Narrative: This case had a high probability of a clinically significant, sudden, or life threatening deterioration of this patient's condition which required my full and direct attention, intervention and personal management. Critical Care Time (minutes): 75 Comment: HPI: ?68-year-old female with underlying history of obesity, hypertension, asthma/COPD overlap who is a type 2 diabetic, hyperlipidemia, has osteoarthritis of the knees, GERD and is currently postop day number?3 status post left total knee arthroplasty performed with spinal nerve block during the procedure.? Her hospital course was briefly initially complicated by urinary retention without evidence of infection, she had been seen by 1 of our urologist and suggested culture and Gram stain and continue with the Hylton for now. While on the floor, the patient had been getting some narcotics for pain and earlier on yesterday she had a rapid response due to obtundation for which Narcan had been given with good effect. Today around 04:00 o'clock this morning the patient had another rapid response given low responsiveness, pinpoint pupils and low blood pressure, a total of 6 mg of Narcan is reported to have been given with very little effect according to the hospitalist (Dr. Rea) who states the patient is still obtunded, she is still hypotensive despite of 1 L of IV fluids. We were consulted due to concerns of ongoing decline and hypotension. ?During my evaluation, the patient appears to be sleepy but responds appropriately to my commands and light touch, family states that this is the best that they have seen her since this started happening as she was very sleepy and difficult to arouse, the patient denies any chest pain, shortness for breath, admits having intermittent left lower extremity pain at the knee level 7 over 10 at the worst and localized with the radiation.? Whatever they gave her earlier she says it did help but it makes her sleepy.? Trying to move extremity makes it worse.? At this time she does not have any other complaints, there is no history of coronary disease, she has not coughing, does not feel like she has a fever or chills. Suspected Sepsis PHYSICAL EXAM done at 06:05 am : VS: ?75/46, 90, 14, 96% room air. General:? Somewhat drowsy, responds to touch stimuli and becomes Alert oriented x3 no acute distress.? Speaking full sentences in [place]ian.? Speech is well articulated, thought process is coherent.? Following all commands. Skin: ?Left anterior knee surgical site cover with surgical dressing, clean dry, intact.? The surrounding skin however appears to have a pink hue all around it down into the distal tibia which is also hot to touch and significantly different in temperature, appearance in comparison to the right lower extremity. ?Intact, no lesions, edema, erythema, clubbing or cyanosis.? No ulcers. HEENT:? Head is normocephalic, atraumatic, pupils equal round reactive to light accommodation bilaterally.? Extraocular movements appear intact.? Buccal mucosa is dry. ?Neck is supple without lymphadenopathy. Cardiac:? Clear S1-S2, no murmurs rubs or gallops. Pulmonary:? Clear to auscultation, no wheezes, rales or rhonchi. Abdomen:? Protuberant, positive bowel sounds in all 4 quadrants.? Soft, nontender, no rebound or guarding.? Musculoskeletal:? Patient is able to move upper extremities, right lower extremity major joints upon request.? Left lower extremity range of motion limited to the toes.? The skin changes above.? There is also evidence of edema of the left calf and leg in comparison to the right perhaps postoperative changes. Neurologic:? As above, cranial nerves 2-12 are grossly intact.? No focal deficits noted. Vascular:? 2+ pulses upper and lower extremities distally. ?Less than 2nd capillary refill bilaterally upper and lower extremity fingers and toes respectively. SIGNIFICANT LABORATORY DATA:? To be obtained including CBC, Chem 7, CRP and ESR, lactic acid, Mag phos, blood cultures. EKG REVIEW:? To be obtained ASSESSMENT : 1. POD 3 post LTKA now with Ongoing postoperative hypotension rule out septic shock, septic joint, acute kidney injury, hypovolemia, bleeding; also very likely could be due to retention by products of blood pressure medications including clonidine, beta-moe, HCTZ among others. 2. Drowsiness and sleepiness without improvement after Narcan 3. Acute kidney injury (elevated BUN and creatinine levels from her baseline) 4. Underlying diabetes mellitus type 2 5. History of COPD without active exacerbation 6. Consider but not high on my differential pulmonary embolism, DVT, cardiogenic or embolic shock PLAN OF CARE: Patient will be transferred to the ICU, will monitor I&Os, vital signs, will administer IV fluids at 30 mL/kilos, I have kindly asked Dr. Rea to order full set of laboratories including lactic acid, obtain blood cultures and we will start her on vancomycin and Zosyn for am concerned about a left lower extremity operative in its surrounding site infection; patient appears very dryl there is very little urine in her hylton bag and is coffee dark. It could also be the patient is retaining opiate products leading to both the sleepiness; her pinpoint pupils and mental status which did improve with Narcan, I do not think the patient needs to be placed on a Narcan drip at this 0.4 she is maintaining her airway.? If anything she could just sleep it off. However the low blood pressure makes me worried about the possibility of a underlying sepsis with the culprit being the left lower extremity. Will start her on levophed as she is still hypotensive. Will also order an ultrasound of the left lower extremity to rule out DVT given the significant asymmetry and edema; although this could be mainly postoperative changes. I do not suspect the hypotension is due to cardiogenic or embolic shock, the patient is not hypoxic, not tachypneic, not tachycardic therefore I do not suspect this is related to a saddle PE, but she could have a segmental emboli. Consider CTA. GI PROPHYLAXIS: ?On omeprazole DVT PROPHYLAXIS: ?Will start her on Lovenox subQ Critical care time used for critical evaluation of this patient, diagnosis, treatment and coordination of care, review her records and documentation TOTAL CRITICAL CARE TIME? 90? MIN . discussion and coordination with consultants, completely separate from any procedures performed. Patient's care was discussed in detail with Dr. Rae is aware of all the above as well as the plan of care for this patient.
[2023-05-29] MEDS: Lactated Ringers 1,000 ML 999 ML IV (06:15)
--- NOTE | 2023-05-29 06:29 | PC.NURSE ---
Around 04:00AM pt noted to be very lethargic, diaphoretic, with vomitus around her mouth and neck. Pt. unable to respond to questions, only able to open eyes and then fall back asleep. Rapid Response called RT, Engagement Director, and MD at bedside and ordered 4mg nasal narcan and 2mg IV narcan. Pt. slightly woke up after this, able to nod yes or no to questions with lecturer in computer science but still very lethargic. BP 90/48 with HR 90. Satting 92% on 3L NC. Order for 1L NS bolus administered with minimal effect as BP dropped lower after bolus finished to 80/43 and then 75/46 while HR maintaining 90's. Pt. was able to open mouth for oral temp 98.3. CXR, VBGs, Troponin, and EKG ordered. MD made aware of worsening blood pressure after first bolus. Second bolus ordered and ICU consulted and accepted. Transfer orders placed and report given to MANAGER TESTING.
[2023-05-29 06:34] LABS: Glucose, Whole Blood 224 mg/dL (60-115)
[2023-05-29 07:06] LABS: C Reactive Protein 20.73 mg/dL (< or = 0.50)
[2023-05-29 07:07] LABS: Lactic Acid 2.4 mmol/L (0.5-2.0)
[2023-05-29 07:08] LABS: Magnesium 2.2 mg/dL (1.6-2.6); Phosphorus 2.2 mg/dL (2.7-4.5)
[2023-05-29 07:16] LABS: D Dimer High Sensitivity 32531 NG/ML
--- NOTE | 2023-05-29 07:39 | W.PM.CCHP ---
Procedures Date of Service Date of Service: 05/29/23 Central Line Placement Right IJ: Consent for Procedure: Elective - informed consent obtained Time out performed: Yes Sterile Technique Used: Yes Patient placed on monitor/pulse ox: Yes MD prep: mask, gown and gloves Central line prep: Chlorhexidine scrub Ultrasound used for placement: Yes Central line lumen inserted: triple Post procedure: sutured in place, good blood return, all ports aspirated, flushed, capped and sterile dressing applied Post procedure x-ray: other (awaiting chest x-ray) Patient tolerated procedure: no complications Complications: none
[2023-05-29] MEDS: Piperacillin Sodium/Tazobactam 4.5 GM in 0.9 % Sodium Chloride 100 ML IV (08:13)
--- NOTE | 2023-05-29 08:14 | PC.NURSE ---
Pt arrived to ICU as a transfer from at 06:30. Pt is Georgian speaking, sap developer used at bedside as well as CHEMA Wright who fluently speaks Georgian. Pt is lethargic, arousable to voice and touch, though quickly falls back asleep on assessment questions. 2mg IVP narcan given at 06:42 per CHEMA Parker with +effect, patient more wakeful. Patient arrived on 3L nc per receieved RN handoff report, satting 92% and above. Breathing even and unlabored without distress. Patient initially with soft BPs 82/54 HR 80?s after 1L bolus that was infusing on arrival finished; additional 1L NS fluid bolus initiated (first bolus given in ICU) per CHEMA with +effect, BPs improved to 104/48, 119/54 HR 80's. Unfortunately, the patient monitor in the patient?s room was noted after multiple cycles to be malfunctioning and did not save the vitals nor transmit them to the main monitoring ICU computer this morning from 06:30 arrival until 07:00 (first set recorded was at 07:00). This was discussed with the community case manager this morning and IT was contacted to assist with resolving this issue. POC was 224 on arrival. Labs ordered and in process. Single 22g IV access to left wrist on arrival with fluid bolus infusing. CHEMA Wright decision to place a central line at 06:45, awaiting ultrasound arrival to unit. See shift assessment for full details. Handoff report given to oncoming RN. Dr. Rae attempting to place central line at 07:00.
[2023-05-29] MEDS: Enoxaparin Sodium 40 MG/0.4 ML SYRINGE SUBCUT (08:15)
[2023-05-29] MEDS: Insulin Lispro 100 UNIT/ML 3 ML VIAL SUBCUT ×5 (08:20→23:58)
[2023-05-29] MEDS: vancomycin/NS 2,000 MG/500 ML PLAST..BAG 250 MG IV (08:27)
--- NOTE | 2023-05-29 08:48 | PHA.PROG ---
Admission Date/Time: May 26, 2023 07:16 Indication: skin Weight in k.3 kg Adjusted body weight in K.78 [place] body weight in K.1 Obesity Dosing Indication % IBW: obese Serum Creatinine - Last 168 Hours 05/27/23 05/28/23 05:20 09:07 Creatinine 1.18 1.21 Estimated CrCl and GFR - Last 168 Hours 05/27/23 05/28/23 05:20 09:07 Estim Creat Clear Calc 46.9 45.8 Estimated GFR 45 44 Vancomycin Loading Dose: 2000 Current Vancomycin Dosing Regimen: 1250 Q12H Vancomycin Monitoring using AUC goal of 400 - 600 range with trough as surrogate marker: 476 Date and Time for next Vancomycin Level to be drawn: 05/29 @1900 Pharmacist Comments on Vancomycin Plan: Vancomycin dosing will take advantage of [employer] as a clinical decision support tool that uses Bayesian modeling to calculate individual patient's pharmacokinetic parameters and forecast the patient's drug concentration time course with the target goal AUC 24 range of 400 - 600 mg/L/hr.
[2023-05-29 08:50] LABS: Reflex Lactate? Lactic Acid Added
[2023-05-29] MEDS: Norepinephrine Bitartrate/D5W 8 MG/250 ML PLAST..BAG 8.46 MG IV (08:55)
[2023-05-29 09:48] LABS: Mean Corpuscular HGB Conc 33.3 g/dl (31.0-35.0); Mean Corpuscular Hemoglobin 27.5 pg (27.0-33.0); Mean Corpuscular Volume 82.6 fL (80.0-98.0); Mean Platelet Volume 10.4 fL (9.4-12.3); Platelet Count 166 X10*3/uL (160-400); Red Blood Count 4.72 X10*6/uL (4.20-5.50); Red Cell Distribution Width 13.5 % (11.0-16.0); White Blood Count 13.5 X10*3/uL (4.8-10.8)
[2023-05-29 09:57] LABS: ~Lactic Acid-LAB USE ONLY 1.7 mmol/L (0.5-2.0)
--- NOTE | 2023-05-29 09:57 | P.PNOP_ITS ---
Subjective Subjective Date of Service: 05/29/23 Interval history: POD 3 s/p LT TKA overnight patient became hypotensive and diff to arouse-transferred to ICU resting in bed denies cp, palpitations, sob Physical Exam Vital Signs: Vital Signs: Last Vital Signs Temp 98.2 F 05/29/23 06:40 Pulse 82 05/29/23 09:00 Resp 18 05/29/23 09:00 BP 103/54 L 05/29/23 09:00 Pulse Ox 94 05/29/23 09:00 O2 Del Method Nasal Cannula 05/29/23 09:00 O2 Flow Rate 3 05/29/23 09:00 Oxygen Flow Rate 3 05/29/23 04:00 BMI result Body Mass Index 38.0 Const: General: cooperative, healthy appearing and no acute distress Resp: Effort & Inspection: normal respiratory effort and able to speak in complete sentences Cardio: Rate: regular rate Peripheral pulses: Peripheral pulses 2+ throughout GI: Palpation (GI): Soft to palpation Skin: General skin exam: no rashes or lesions noted Extrem: Other: bandage clean dry and intact. [place] intact. No erythema or joint effusion. Calf supple nontender. Neurovascularly intact. Procedures Date of Service Date of Service: 05/29/23 Progress Note: A&P Assessment and plan (1) Status post total left knee replacement: Status: Acute Assessment and Plan: * Continue pain mgmnt * Aspirin for dvt ppx * PT for LT TKA * Dispo planning-ICU / medical clearance Time Spent With Patient Time: Total time managing care of this patient today ____ minutes. Quality Stroke Does the patient have a stroke diagnosis?: No VTE Prior VTE?: No VTE Risk Level:: Surgical - very high VTE Device Contraindication: N/A - Device Ordered VTE Drug Contraindication: N/A - Med Ordered
[2023-05-29 10:00] LABS: C Reactive Protein 22.15 mg/dL (< or = 0.50)
[2023-05-29 10:08] LABS: Troponin-I High Sensitivity 4.4 ng/L (<3.5-17.0)
[2023-05-29 10:11] LABS: Alanine Aminotransferase 53 U/L (0-31); Albumin Level 2.6 g/dL (3.5-5.0); Alkaline Phosphatase 128 U/L (39-117); Anion Gap 14 (12-20); Aspartate Amino Transferase 57 U/L (5-31); Bilirubin Total 1.3 mg/dL (0.0-1.0); Blood Urea Nitrogen 40 mg/dL (9-16); Chloride 106 mmol/L (96-108); Glucose Random 276 mg/dL (60-115); Sodium 134 mmol/L (135-145); Total Protein 5.5 g/dL (6.5-8.0)
[2023-05-29 10:25] LABS: Band Neutrophils Percent 18 % (3-5); Lymphocytes Absolute Manual 0.8 X10*3/uL (1.2-4.9); Lymphocytes Percent Manual 6 % (20-40); Metamyelocytes Absolute 0.4 X10*3/uL; Metamyelocytes Percent 3 %; Monocytes Absolute Manual 0.5 X10*3/uL (0.1-1.2); Monocytes Percent Manual 4 % (2-11); Neutrophils Absolute Manual 11.7 X10*3/uL (2.0-8.3); Neutrophils Percent Manual 69 % (45-73)
[2023-05-29 10:26] LABS: Toxic Vacuolation PRESENT
[2023-05-29 10:27] LABS: Burr Cells 1+ (0-2) /OIF; Large Platelet PRESENT; Platelet Estimate NORMAL (NORMAL); Platelet Morphology Comment NOTED; RBC Morphology NOTED
[2023-05-29 10:37] LABS: Calcium 7.9 mg/dL (8.4-10.2); Carbon Dioxide 17 mmol/L (22-29); Estimated Glomerular Filt Rate 29
[2023-05-29] MEDS: Potassium Phosphate/NS 15 MMOL/250 ML PLAST..BAG 62.5 MMOL IV (10:41)
[2023-05-29] MEDS: Albumin Human 25 % 50 ML 100 ML IV (11:01)
[2023-05-29 12:20] LABS: Glucose, Whole Blood 293 mg/dL (60-115)
[2023-05-29] MEDS: iohexoL 350 MG/ML 100 ML INFUS..BTL IV (13:22)
[2023-05-29 13:43] LABS: Appearance Urine Clear; Color Urine Dark Yellow; Glucose Urine UA 250 mg/dL (Negative); Leukocyte Esterase Urine Negative (Negative); Nitrite Urine Negative (Negative); Specific Gravity - Urine >= 1.030 (1.005-1.025); UMIC TRIGGER UACC YES; Urine Blood Moderate (2+) (Negative); Urine Ketones Trace mg/dL (Negative); Urine Protein Trace mg/dL (Neg-Trace)
[2023-05-29 13:52] LABS: Bacteria Urine None Seen (None Seen); Hyaline Casts Urine 0-2 /LPF (0-2); Squamous Epithelial Cell Urine 0-2 /HPF (0-2); WBC Urine 0-5 /HPF (0-5)
--- NOTE | 2023-05-29 14:04 | MHC.CM.PN ---
Pt transferred to ICU following hypotensive episode after TKA. Pt on Levophed infusion: Pt to transfer to [facility] once medically stable. CM to follow
[2023-05-29] MEDS: Calcium Chloride 1 GM/10 ML SYRINGE IVPUSH (15:02)
--- NOTE | 2023-05-29 15:35 | P.PNOP_ITS ---
Subjective Subjective Date of Service: 05/28/23 Interval history: POD 2 s/p LT TKA no overnight events resting in bed denies cp, palpitations, sob Physical Exam Vital Signs: Vital Signs: Last Vital Signs Temp 98.2 F 05/29/23 06:40 Pulse 85 05/29/23 15:00 Resp 16 05/29/23 15:00 BP 133/60 05/29/23 15:00 Pulse Ox 91 L 05/29/23 15:00 O2 Del Method Nasal Cannula 05/29/23 15:00 O2 Flow Rate 1 05/29/23 15:00 Oxygen Flow Rate 3 05/29/23 04:00 BMI result Body Mass Index 38.0 Const: General: cooperative, healthy appearing and no acute distress Resp: Effort & Inspection: normal respiratory effort and able to speak in complete sentences Cardio: Rate: regular rate Peripheral pulses: Peripheral pulses 2+ th roughout GI: Palpation (GI): Soft to palpation Skin: General skin exam: no rashes or lesions noted Extrem: Other: bandage clean dry and intact. [place] intact. No erythema or joint effusion. Calf supple nontender. Neurovascularly intact. Procedures Date of Service Date of Service: 05/28/23 Progress Note: A&P Assessment and plan (1) Status post total left knee replacement: Status: Acute Assessment and Plan: * Continue pain mgmnt-dc oxycontin as patient is sleepy * med consult due to low bp and low o2 * Aspirin for dvt ppx * PT for LT TKA * Dispo planning-PT/med clearance Time Spent With Patient Time: Total time managing care of this patient today ____ minutes. Quality Stroke Does the patient have a stroke diagnosis?: No VTE Prior VTE?: No VTE Risk Level:: Surgical - very high VTE Device Contraindication: N/A - Device Ordered VTE Drug Contraindication: N/A - Med Ordered
--- NOTE | 2023-05-29 15:51 | PM.EVENT ---
Event Note Date of Service: 05/29/23 Event Note: of note, a sepsis-focused exam was completed at 09:00. Time Spent With Patient Time: Total time managing care of this patient today ____ minutes.
[2023-05-29] MEDS: Acetaminophen 1,000 MG/100 ML PIGGYBACK 400 MG IV ×2 (16:00→23:07)
[2023-05-29 16:05] LABS: Glucose, Whole Blood 326 mg/dL (60-115)
[2023-05-29 17:17] LABS: Hematocrit 37.4 % (37.0-47.0); Hemoglobin 12.6 g/dl (12.0-16.0); Mean Corpuscular HGB Conc 33.7 g/dl (31.0-35.0); Mean Corpuscular Hemoglobin 27.4 pg (27.0-33.0); Mean Corpuscular Volume 81.3 fL (80.0-98.0); Mean Platelet Volume 10.1 fL (9.4-12.3); Platelet Count 174 X10*3/uL (160-400); Red Cell Distribution Width 13.5 % (11.0-16.0)
[2023-05-29 17:28] LABS: INTERNATIONAL NORM RATIO 1.1 (0.9-1.1); Prothrombin Time 13.1 SEC (11.1-13.3)
[2023-05-29 17:30] LABS: Partial Thromboplastin Time 35.4 SEC (26.0-36.8)
[2023-05-29] MEDS: Lidocaine 4 % Patch ADH..PATCH 2 PATCH TRANSDERMA (17:43)
[2023-05-29] MEDS: Enoxaparin Sodium 100 MG/ML SYRINGE 90 MG SUBCUT (19:48)
[2023-05-29] MEDS: vancomycin HCL 1,250 MG in 0.9 % Sodium Chloride 250 ML 166.67 MG IV (19:49)
[2023-05-29 21:17] LABS: Glucose, Whole Blood 291 mg/dL (60-115)
[2023-05-29] MEDS: Piperacillin Sodium/Tazobactam 3.375 GM in 0.9 % Sodium Chloride 50 ML IV (21:37)
[2023-05-29 21:55] LABS: Alanine Aminotransferase 47 U/L (0-31); Albumin Level 2.9 g/dL (3.5-5.0); Alkaline Phosphatase 112 U/L (39-117); Anion Gap 14 (12-20); Aspartate Amino Transferase 51 U/L (5-31); Bilirubin Total 1.1 mg/dL (0.0-1.0); Blood Urea Nitrogen 37 mg/dL (9-16); Calcium 8.8 mg/dL (8.4-10.2); Carbon Dioxide 18 mmol/L (22-29); Chloride 108 mmol/L (96-108); Creatinine Clr Calc Pharmacy 37.1; Estimated Glomerular Filt Rate 34; Glucose Random 351 mg/dL (60-115); Magnesium 2.3 mg/dL (1.6-2.6); Phosphorus 4.2 mg/dL (2.7-4.5); Potassium 4.3 mmol/L (3.3-5.1); Sodium 136 mmol/L (135-145); Total Protein 5.8 g/dL (6.5-8.0)
[2023-05-29 22:46] LABS: CDiff Gene PCR NEGATIVE (Negative)
[2023-05-29] MEDS: Sodium Bicarbonate 8.4% 50 MEQ/50 ML VIAL 100 MEQ IVPUSH (23:03)
[2023-05-29] MEDS: Sodium Chloride 0.45 % 1,000 ML 100 ML IVCONT (23:06)
[2023-05-29 23:44] LABS: Glucose, Whole Blood 305 mg/dL (60-115)
[2023-05-30] VITALS (29 sets, daily range): BP systolic 96–162; BP diastolic 42–73; PULSE 98–138; RESP 18–26; TEMP 36.6–37.3; O2SAT 93–98; BMI 39.5
[2023-05-30 05:23] LABS: Hemoglobin 11.8 g/dl (12.0-16.0); Mean Corpuscular HGB Conc 33.7 g/dl (31.0-35.0); Mean Corpuscular Hemoglobin 27.4 pg (27.0-33.0); Mean Corpuscular Volume 81.2 fL (80.0-98.0); Mean Platelet Volume 10.4 fL (9.4-12.3); NRBC Pct Auto 0.2 /100WBC (0.0-0.2); Platelet Count 188 X10*3/uL (160-400); Red Blood Count 4.31 X10*6/uL (4.20-5.50); Red Cell Distribution Width 13.5 % (11.0-16.0)
[2023-05-30] MEDS: Omeprazole 40 MG CAPSULE.DR PO (05:36)
[2023-05-30] MEDS: Piperacillin Sodium/Tazobactam 3.375 GM in 0.9 % Sodium Chloride 50 ML IV ×3 (05:36→20:23)
[2023-05-30 05:45] LABS: WBC ABN SCTR FOR CBC 1; White Blood Count 8.3 X10*3/uL (4.8-10.8)
[2023-05-30 05:46] LABS: Anion Gap 14 (12-20); Blood Urea Nitrogen 35 mg/dL (9-16); Calcium 8.2 mg/dL (8.4-10.2); Carbon Dioxide 19 mmol/L (22-29); Chloride 108 mmol/L (96-108); Creatinine Clr Calc Pharmacy 46.1; Estimated Glomerular Filt Rate 42; Glucose Random 302 mg/dL (60-115); Potassium 3.7 mmol/L (3.3-5.1); Sodium 137 mmol/L (135-145)
[2023-05-30 06:58] LABS: Band Neutrophils Percent 48 % (3-5); Lymphocytes Absolute Manual 0.9 X10*3/uL (1.2-4.9); Lymphocytes Percent Manual 11 % (20-40); Metamyelocytes Absolute 0.6 X10*3/uL; Metamyelocytes Percent 7 %; Monocytes Absolute Manual 0.6 X10*3/uL (0.1-1.2); Monocytes Percent Manual 7 % (2-11); Myelocytes Absolute 0.2 X10*/uL; Myelocytes Percent 2 %; Neutrophils Absolute Manual 6.1 X10*3/uL (2.0-8.3); Neutrophils Percent Manual 25 % (45-73)
[2023-05-30 07:01] LABS: Burr Cells 2+ (3-5) /OIF; Dohle Bodies PRESENT; Platelet Estimate NORMAL (NORMAL); Platelet Morphology Comment NORMAL; RBC Morphology NOTED; Toxic Granulation PRESENT; Toxic Vacuolation PRESENT
[2023-05-30 07:02] LABS: Tear Drop Cells 1+ (0-2) /OIF
--- NOTE | 2023-05-30 07:41 | ECG_ITS ---
Test Reason : tachycardia Blood Pressure : / mmHG Vent. Rate : 118 BPM Atrial Rate : 118 BPM P-R Int : 136 ms QRS Dur : 096 ms QT Int : 334 ms P-R-T Axes : 032 019 215 degrees QTc Int : [address] & T wave abnormality, consider lateral ischemia Abnormal ECG When compared with ECG of 29-MAY-2023 10:01, ST now depressed in Lateral leads Nonspecific T wave abnormality, worse in Inferior leads T wave inversion now evident in Lateral leads Referred By: Maya Rae Electronically Signed By:LIGIA BLANCAS MD
[2023-05-30 07:43] LABS: Glucose, Whole Blood 281 mg/dL (60-115)
[2023-05-30] MEDS: Lidocaine 4 % Patch ADH..PATCH 2 PATCH TRANSDERMA (08:48)
[2023-05-30] MEDS: Insulin Lispro 100 UNIT/ML 3 ML VIAL SUBCUT ×5 (08:48→20:18)
--- NOTE | 2023-05-30 08:55 | P.PNCC_ITS ---
Subjective Subjective Date of Service: 05/30/23 Interval History: CTA chest demonstrating bilateral segmental PEs, started on therapuetic enoxaparin; otherwise, no significant overnight events Critical Care Time (minutes): 60 Physical Exam 2 Vital Signs: Vital Signs: Last Vital Signs Temp 97.8 F 05/30/23 08:00 Pulse 113 H 05/30/23 08:00 Resp 22 H 05/30/23 08:00 BP 121/53 L 05/30/23 08:00 Pulse Ox 93 05/30/23 08:00 O2 Del Method Nasal Cannula 05/30/23 08:00 O2 Flow Rate 2 05/30/23 08:00 FiO2 93 05/29/23 19:00 Oxygen Flow Rate 3 05/29/23 04:00 BMI result Body Mass Index 39.5 Const: General: comfortable, no acute distress, well developed, alert, awake and Physically active Orientation/consciousness: patient oriented x3 HEENT: Head: Yes normal to inspection, Yes normocephalic and Yes atraumatic Eyes: General: appearance normal, both eyes and all related structures Neck: Neck: Yes normal visual inspection, Yes full ROM, Yes no meningeal signs and Yes supple Chest: Chest palpation & inspection: normal inspection of the chest Resp: Other: no appreciable rales, rhonchi, wheezing Cardio: Rate: tachycardic Rhythm: regular rhythm GI: Inspection: Yes normal to inspection, No Abdominal wall edema and No distended Palpation (GI): Soft to palpation, not firm, Tenderness to palpation present (GI) (some tenderness to palpation diffusely), no guarding and not rigid : External Female Exam: normal external appearance Skin: General skin exam: no rashes or lesions noted Neuro: General: patient oriented x3, tone normal, moves all extremities, no meningeal signs and no focal motor deficits Extrem: Other: 1+ pitting edema to bilateral knees; L lower extremity with overlying bandage; no appreciable fluctuance, induration; FROM L lower extremity Psych: Appearance: grossly normal Objective Data Labs 05/30/23 04:58 05/30/23 04:58 Labs: Laboratory Results - last 24 hr 05/29/23 05/29/23 05/29/23 09:32 12:18 13:08 WBC 13.5 H RBC 4.72 Hgb 13.0 Hct 39.0 MCV 82.6 MCH 27.5 MCHC 33.3 RDW 13.5 Plt Count 166 MPV 10.4 Immature Gran % (Auto) Cancelled Neut % (Auto) Cancelled Lymph % (Auto) Cancelled [place] % (Auto) Cancelled Eos % (Auto) Cancelled Baso % (Auto) Cancelled Lymph # (Auto) Cancelled [place] # (Auto) Cancelled Eos # (Auto) Cancelled Baso # (Auto) Cancelled Abs Immat Gran (auto) Cancelled Absolute Neuts (auto) Cancelled Absolute Nucleated RBC 0.000 Nucleated RBC % (auto) 0.0 Neutrophils % (Manual) 69 Band Neutrophils % 18 H Lymphocytes % (Manual) 6 L Monocytes % (Manual) 4 Metamyelocytes % 3 Myelocytes % Abs Neuts (Manual) 11.7 H Lymphocytes # (Manual) 0.8 L Monocytes # (Manual) 0.5 Metamyelocytes # 0.4 Myelocytes # Toxic Granulation Toxic Vacuolation PRESENT Dohle Bodies Platelet Estimate NORMAL Large Platelets PRESENT Plt Morphology Comment NOTED RBC Morphology NOTED Tear Drop Cells [place] Cells 1+ (0-2) PT INR APTT Sodium 134 L Potassium 5.0 D Chloride 106 Carbon Dioxide 17 L Anion Gap 14 BUN 40 H Creatinine 1.72 H Estim Creat Clear Calc 33.0 Estimated GFR 29 POC Glucose 293 H Random Glucose 276 H Lactic Acid Cancelled Lactic Acid F/U @ 2Hr 1.7 Calcium 7.9 L D Phosphorus Magnesium Total Bilirubin 1.3 H AST 57 H ALT 53 H Alkaline Phosphatase 128 H Troponin I High Sens 4.4 C-Reactive Protein 22.15 H Total Protein 5.5 L Albumin 2.6 L Urine Color Dark Yellow Urine Appearance Clear Urine pH 5.0 Ur Specific [place] >= 1.030 H Urine Protein Trace Urine Glucose (UA) 250 H Urine Ketones Trace Urine Blood Moderate (2+) H Urine Nitrite Negative Ur Leukocyte Esterase Negative Urine RBC 3-5 H Urine WBC 0-5 Ur Squamous Epith Cells 0-2 Urine Bacteria None Seen Hyaline Casts 0-2 C. difficile Tox B Gene 05/29/23 05/29/23 05/29/23 16:00 17:09 21:14 WBC 10.0 RBC 4.60 Hgb 12.6 Hct 37.4 MCV 81.3 MCH 27.4 MCHC 33.7 RDW 13.5 Plt Count 174 MPV 10.1 Immature Gran % (Auto) Neut % (Auto) Lymph % (Auto) [place] % (Auto) Eos % (Auto) Baso % (Auto) Lymph # (Auto) [place] # (Auto) Eos # (Auto) Baso # (Auto) Abs Immat Gran (auto) Absolute Neuts (auto) Absolute Nucleated RBC 0.000 Nucleated RBC % (auto) 0.0 Neutrophils % (Manual) Band Neutrophils % Lymphocytes % (Manual) Monocytes % (Manual) Metamyelocytes % Myelocytes % Abs Neuts (Manual) Lymphocytes # (Manual) Monocytes # (Manual) Metamyelocytes # Myelocytes # Toxic Granulation Toxic Vacuolation Dohle Bodies Platelet Estimate Large Platelets Plt Morphology Comment RBC Morphology Tear Drop Cells [place] Cells PT 13.1 INR 1.1 APTT 35.4 Sodium Potassium Chloride Carbon Dioxide Anion Gap BUN Creatinine Estim Creat Clear Calc Estimated GFR POC Glucose 326 H 291 H Random Glucose Lactic Acid Lactic Acid F/U @ 2Hr Calcium Phosphorus Magnesium Total Bilirubin AST ALT Alkaline Phosphatase Troponin I High Sens C-Reactive Protein Total Protein Albumin Urine Color Urine Appearance Urine pH Ur Specific [place] Urine Protein Urine Glucose (UA) Urine Ketones Urine Blood Urine Nitrite Ur Leukocyte Esterase Urine RBC Urine WBC Ur Squamous Epith Cells Urine Bacteria Hyaline Casts C. difficile Tox B Gene 05/29/23 05/29/23 05/29/23 21:31 21:39 23:40 WBC RBC Hgb Hct MCV MCH MCHC RDW Plt Count MPV Immature Gran % (Auto) Neut % (Auto) Lymph % (Auto) [place] % (Auto) Eos % (Auto) Baso % (Auto) Lymph # (Auto) [place] # (Auto) Eos # (Auto) Baso # (Auto) Abs Immat Gran (auto) Absolute Neuts (auto) Absolute Nucleated RBC Nucleated RBC % (auto) Neutrophils % (Manual) Band Neutrophils % Lymphocytes % (Manual) Monocytes % (Manual) Metamyelocytes % Myelocytes % Abs Neuts (Manual) Lymphocytes # (Manual) Monocytes # (Manual) Metamyelocytes # Myelocytes # Toxic Granulation Toxic Vacuolation Dohle Bodies Platelet Estimate Large Platelets Plt Morphology Comment RBC Morphology Tear Drop Cells [place] Cells PT INR APTT Sodium 136 Potassium 4.3 Chloride 108 Carbon Dioxide 18 L Anion Gap 14 BUN 37 H Creatinine 1.53 H Estim Creat Clear Calc 37.1 Estimated GFR 34 POC Glucose 305 H Random Glucose 351 H* Lactic Acid Lactic Acid F/U @ 2Hr Calcium 8.8 D Phosphorus 4.2 Magnesium 2.3 Total Bilirubin 1.1 H AST 51 H ALT 47 H Alkaline Phosphatase 112 Troponin I High Sens C-Reactive Protein Total Protein 5.8 L Albumin 2.9 L Urine Color Urine Appearance Urine pH Ur Specific [place] Urine Protein Urine Glucose (UA) Urine Ketones Urine Blood Urine Nitrite Ur Leukocyte Esterase Urine RBC Urine WBC Ur Squamous Epith Cells Urine Bacteria Hyaline Casts C. difficile Tox B Gene NEGATIVE 05/30/23 05/30/23 04:58 07:40 WBC 8.3 RBC 4.31 Hgb 11.8 L Hct 35.0 L MCV 81.2 MCH 27.4 MCHC 33.7 RDW 13.5 Plt Count 188 MPV 10.4 Immature Gran % (Auto) Cancelled Neut % (Auto) Cancelled Lymph % (Auto) Cancelled [place] % (Auto) Cancelled Eos % (Auto) Cancelled Baso % (Auto) Cancelled Lymph # (Auto) Cancelled [place] # (Auto) Cancelled Eos # (Auto) Cancelled Baso # (Auto) Cancelled Abs Immat Gran (auto) Cancelled Absolute Neuts (auto) Cancelled Absolute Nucleated RBC 0.020 H Nucleated RBC % (auto) 0.2 Neutrophils % (Manual) 25 L Band Neutrophils % 48 H Lymphocytes % (Manual) 11 L Monocytes % (Manual) 7 Metamyelocytes % 7 Myelocytes % 2 Abs Neuts (Manual) 6.1 Lymphocytes # (Manual) 0.9 L Monocytes # (Manual) 0.6 Metamyelocytes # 0.6 Myelocytes # 0.2 Toxic Granulation PRESENT Toxic Vacuolation PRESENT Dohle Bodies PRESENT Platelet Estimate NORMAL Large Platelets Plt Morphology Comment NORMAL RBC Morphology NOTED Tear Drop Cells 1+ (0-2) [place] Cells 2+ (3-5) PT INR APTT Sodium 137 Potassium 3.7 Chloride 108 Carbon Dioxide 19 L Anion Gap 14 BUN 35 H Creatinine 1.26 Estim Creat Clear Calc 46.1 Estimated GFR 42 POC Glucose 281 H Random Glucose 302 H Lactic Acid Lactic Acid F/U @ 2Hr Calcium 8.2 L D Phosphorus Magnesium Total Bilirubin AST ALT Alkaline Phosphatase Troponin I High Sens C-Reactive Protein Total Protein Albumin Urine Color Urine Appearance Urine pH Ur Specific [place] Urine Protein Urine Glucose (UA) Urine Ketones Urine Blood Urine Nitrite Ur Leukocyte Esterase Urine RBC Urine WBC Ur Squamous Epith Cells Urine Bacteria Hyaline Casts C. difficile Tox B Gene Microbiology Microbiology Results: Microbiology 05/29/23 06:38 Blood - Venous Blood Culture - Preliminary No growth after 24 hours. 05/29/23 05:45 Blood - Venous Blood Culture - Preliminary No growth after 24 hours. 05/27/23 13:35 Urine Catheterized - Ramos Catheter Urine Culture - Final No growth. Progress Note: A&P Assessment and plan (1) Status post total left knee replacement: Status: Acute (2) T2DM (type 2 diabetes mellitus): Status: Acute (3) HTN (hypertension): Status: Acute (4) Pulmonary embolism: Status: Acute Plan Patient is a 68 Y F with hypertension, non-insulin dependent diabetes mellitus, asthma, presenting for elective L total knee arthroplasty on 05/26; on 05/28, ICU called d/t hypotension, obtundation, transferred to ICU N: CT H reassuring; interval improvement of obtundation, now off opioids; multi- modal, non-opioid pain regimen as tolerated CV: hypotension, resolved; etiology unclear, possibly d/t over-sedation R: acute hypoxia, on NC; found to have bilateral segmental PEs, on treatment- dose enoxaparin GI: diarrhea, to continue to monitor; diabetic diet : acute renal insufficiency, improved H: bilateral segmental PEs, on treatment-dose enoxaparin ID: empiric vancomycin, zosyn for possible infection in setting of hypotension E: hyperglycemia; on standing and sliding scale insulin P: no acute issues Quality Stroke Does the patient have a stroke diagnosis?: No VTE Prior VTE?: No VTE Risk Level:: Surgical - very high VTE Device Contraindication: N/A - Device Ordered VTE Drug Contraindication: N/A - Med Ordered
[2023-05-30] MEDS: Enoxaparin Sodium 100 MG/ML SYRINGE 90 MG SUBCUT ×2 (08:56→19:40)
[2023-05-30] MEDS: Sodium Chloride 0.45 % 1,000 ML 100 ML IVCONT ×2 (08:56→17:36)
[2023-05-30 09:39] LABS: Vancomycin Random 16.2 mcg/mL (15-20)
[2023-05-30] MEDS: Calcium Chloride 1 GM/10 ML SYRINGE IVPUSH (09:46)
--- NOTE | 2023-05-30 10:07 | HE.PHANOTE ---
vancomycin dosing Random level put in as current regimen expected to be supratherapeutic. Level was 16.2 with predicting steady state at 31.1. Will decrease dose to vancomycn 1250 mg Q24H start 05/29 @ 1999. New predict AUC is 456 with a trough of 14.2. Isa Reeves, PharmD
[2023-05-30] MEDS: Acetaminophen 325 MG TABLET 975 MG PO ×2 (11:43→20:17)
[2023-05-30 11:53] LABS: Glucose, Whole Blood 301 mg/dL (60-115)
[2023-05-30] MEDS: Albuterol/Iprat 2.5/0.5MG 3 ML AMPUL.NEB INHALE ×3 (12:12→18:57)
[2023-05-30 13:51] LABS: Anion Gap 14 (12-20); Blood Urea Nitrogen 32 mg/dL (9-16); Calcium 8.9 mg/dL (8.4-10.2); Carbon Dioxide 20 mmol/L (22-29); Chloride 105 mmol/L (96-108); Creatinine Clr Calc Pharmacy 48.7; Estimated Glomerular Filt Rate 45; Glucose Random 329 mg/dL (60-115); Magnesium 2.1 mg/dL (1.6-2.6); Phosphorus 2.8 mg/dL (2.7-4.5); Potassium 3.5 mmol/L (3.3-5.1); Sodium 135 mmol/L (135-145)
[2023-05-30] MEDS: Lactated Ringers 500 ML 999 ML IV (14:30)
--- NOTE | 2023-05-30 14:44 | PM.PNORT ---
Subjective Subjective Date of Service: 05/30/23 Principal diagnosis: left TKA Interval history: Lois is doing better although complaining of Diarrhea. Her labs have been normalizing with no white count and Cr/BUN improving. Her mental status has improved. She did have segmental PE bilaterally and is on therapeutic Lovenox. Her knee feels well with no pain. SHe has been having a difficult time getting up b/c of GI upset. She just had a CT Of the abdomen. Physical Exam Vital Signs: Vital Signs: Last Vital Signs Temp 97.8 F 05/30/23 08:00 Pulse 116 H 05/30/23 14:00 Resp 24 H 05/30/23 14:00 BP 118/62 05/30/23 14:00 Pulse Ox 94 05/30/23 14:00 O2 Del Method Nasal Cannula 05/30/23 14:00 O2 Flow Rate 2 05/30/23 14:00 FiO2 93 05/29/23 19:00 Oxygen Flow Rate 3 05/29/23 04:00 BMI result Body Mass Index 39.5 Const: Other: alert and oriented x 3 GI: Other: Abdomen is soft and non distended Extrem: Other: Dressing c/d/i 0-40 SILT NO calf tenderness bilaterally Procedures Date of Service Date of Service: 05/30/23 Progress Note: A&P Assessment and plan (1) Pulmonary embolism: Status: Acute Assessment and Plan: POD # 4 s/p left TKA c/b PE with taccycardia and diarrhea. CT scan abdomen pending PT when tolerated no narcotics transfer out of ICU pending CT and taccycardia Discussed with patient and family (2) Status post total left knee replacement: Status: Acute Time Spent With Patient Time: Total time managing care of this patient today ____ minutes. Quality Stroke Does the patient have a stroke diagnosis?: No VTE Prior VTE?: No VTE Risk Level:: Surgical - very high VTE Device Contraindication: N/A - Device Ordered VTE Drug Contraindication: N/A - Med Ordered
[2023-05-30 16:44] LABS: Glucose, Whole Blood 302 mg/dL (60-115)
[2023-05-30 17:08] LABS: INTERNATIONAL NORM RATIO 1.2 (0.9-1.1); Prothrombin Time 14.7 SEC (11.1-13.3)
[2023-05-30] MEDS: Insulin Lispro 100 UNIT/ML 3 ML VIAL 6 UNIT SUBCUT ×2 (17:35→20:19)
[2023-05-30] MEDS: Lactated Ringers 1,000 ML 999 ML IV ×2 (19:30→21:29)
[2023-05-30] MEDS: Metoprolol Tartrate 5 MG/5 ML VIAL IVPUSH ×2 (19:35→22:44)
[2023-05-30] MEDS: vancomycin HCL 1,250 MG in 0.9 % Sodium Chloride 250 ML 166.67 MG IV (19:35)
[2023-05-30 20:10] LABS: Glucose, Whole Blood 308 mg/dL (60-115)
[2023-05-30 20:30] LABS: Reflex Lactate? Lactic Acid Added
[2023-05-30 21:21] LABS: ~Lactic Acid-LAB USE ONLY 4.2 mmol/L (0.5-2.0)
[2023-05-30] MEDS: Metoprolol Tartrate 50 MG TABLET PO (21:29)
[2023-05-30 21:59] LABS: Hematocrit 31.2 % (37.0-47.0); Hemoglobin 10.9 g/dl (12.0-16.0); Mean Corpuscular HGB Conc 34.9 g/dl (31.0-35.0); Mean Corpuscular Hemoglobin 27.4 pg (27.0-33.0); Mean Corpuscular Volume 78.4 fL (80.0-98.0); NRBC Pct Auto 0.2 /100WBC (0.0-0.2); Platelet Count 182 X10*3/uL (160-400); Red Blood Count 3.98 X10*6/uL (4.20-5.50); Red Cell Distribution Width 14.1 % (11.0-16.0)
[2023-05-30 22:11] LABS: Alanine Aminotransferase 35 U/L (0-31); Albumin Level 2.3 g/dL (3.5-5.0); Alkaline Phosphatase 83 U/L (39-117); Anion Gap 10 (12-20); Aspartate Amino Transferase 42 U/L (5-31); Bilirubin Total 0.9 mg/dL (0.0-1.0); Blood Urea Nitrogen 24 mg/dL (9-16); Calcium 8.3 mg/dL (8.4-10.2); Carbon Dioxide 21 mmol/L (22-29); Chloride 108 mmol/L (96-108); Creatinine Clr Calc Pharmacy 60.4; Estimated Glomerular Filt Rate 58; Glucose Random 284 mg/dL (60-115); Magnesium 2.1 mg/dL (1.6-2.6); Phosphorus 1.8 mg/dL (2.7-4.5); Potassium 3.3 mmol/L (3.3-5.1); Sodium 136 mmol/L (135-145); Total Protein 4.9 g/dL (6.5-8.0)
[2023-05-30 22:17] LABS: WBC ABN SCTR FOR CBC 1
[2023-05-30 22:26] LABS: Atypical Lymphs Percent Manual 1 % (0-6); Band Neutrophils Percent 17 % (3-5); Eosinophils Percent Manual 1 % (0-4); Lymphocytes Percent Manual 11 % (20-40); Metamyelocytes Percent 5 %; Monocytes Percent Manual 10 % (2-11); Myelocytes Percent 1 %; Neutrophils Percent Manual 54 % (45-73)
[2023-05-30 22:28] LABS: Burr Cells 2+ (3-5) /OIF; RBC Morphology NOTED
[2023-05-30 22:29] LABS: Platelet Estimate NORMAL (NORMAL); Platelet Morphology Comment NORMAL
[2023-05-30 22:31] LABS: Toxic Granulation PRESENT
[2023-05-30 22:32] LABS: Atypical Lymph Absolute Manual 0.1 x10*3/uL; Eosinophils Absolute Manual 0.1 X10*3/uL (0.0-0.4); Metamyelocytes Absolute 0.5 X10*3/uL; Monocytes Absolute Manual 0.9 X10*3/uL (0.1-1.2); Myelocytes Absolute 0.1 X10*/uL; Neutrophils Absolute Manual 6.7 X10*3/uL (2.0-8.3); White Blood Count 9.4 X10*3/uL (4.8-10.8)
[2023-05-30 23:02] LABS: Reflex Lactate? 2 Y
[2023-05-30] MEDS: Potassium Phosphate/NS 15 MMOL/250 ML PLAST..BAG 62.5 MMOL IV (23:34)
[2023-05-30 23:36] LABS: ~Lactic Acid-LAB USE ONLY 2.8 mmol/L (0.5-2.0)
[2023-05-30] MEDS: Sodium Bicarbonate 8.4% 50 MEQ/50 ML VIAL 100 MEQ IVPUSH (23:44)
[2023-05-31] VITALS (28 sets, daily range): BP systolic 123–185; BP diastolic 57–88; PULSE 92–116; RESP 17–28; TEMP 36.4–36.8; O2SAT 90–95; BMI 41.3
[2023-05-31] MEDS: Insulin Glargine,Hum.rec.anlog 100 UNIT/ML 10 ML VIAL 10 UNIT SUBCUT ×2 (00:26→21:42)
[2023-05-31] MEDS: Acetaminophen 325 MG TABLET 975 MG PO ×3 (02:49→21:42)
[2023-05-31] MEDS: Metoprolol Tartrate 50 MG TABLET PO ×4 (02:51→21:40)
[2023-05-31 03:06] LABS: OBS1 POSITIVE (NEGATIVE)
[2023-05-31 03:07] LABS: OBS Int Ctl Valid YES
[2023-05-31] MEDS: Potassium Phosphate/NS 15 MMOL/250 ML PLAST..BAG 62.5 MMOL IV ×3 (03:21→14:03)
[2023-05-31] MEDS: Sodium Chloride 0.45 % 1,000 ML 100 ML IVCONT ×3 (03:21→22:00)
[2023-05-31 04:57] LABS: VBG Base Excess 2.2 mmol/L; VBG HCO3 24 mmol/L (22-26); VBG pCO2 31 mmHg; VBG pO2 47 mmHg
[2023-05-31 04:58] LABS: Venous Blood Gas Refer to POC result
[2023-05-31 04:58] LABS: Hematocrit 30.7 % (37.0-47.0); Hemoglobin 10.6 g/dl (12.0-16.0); Mean Corpuscular HGB Conc 34.5 g/dl (31.0-35.0); Mean Corpuscular Hemoglobin 27.3 pg (27.0-33.0); Mean Corpuscular Volume 79.1 fL (80.0-98.0); Mean Platelet Volume 9.8 fL (9.4-12.3); Platelet Count 180 X10*3/uL (160-400); Red Blood Count 3.88 X10*6/uL (4.20-5.50); Red Cell Distribution Width 13.8 % (11.0-16.0); WBC ABN SCTR FOR CBC 1
[2023-05-31 05:07] LABS: Lactic Acid 1.5 mmol/L (0.5-2.0)
[2023-05-31 05:18] LABS: Anion Gap 11 (12-20); Blood Urea Nitrogen 19 mg/dL (9-16); Calcium 7.8 mg/dL (8.4-10.2); Carbon Dioxide 24 mmol/L (22-29); Chloride 106 mmol/L (96-108); Creatinine Clr Calc Pharmacy 73.4; Estimated Glomerular Filt Rate > 60; Glucose Random 197 mg/dL (60-115); Magnesium 1.9 mg/dL (1.6-2.6); Phosphorus 2.6 mg/dL (2.7-4.5); Potassium 3.2 mmol/L (3.3-5.1); Sodium 138 mmol/L (135-145)
[2023-05-31 05:42] LABS: Atypical Lymph Absolute Manual 0.2 x10*3/uL; Atypical Lymphs Percent Manual 2 % (0-6); Band Neutrophils Percent 33 % (3-5); Basophils Abs Manual 0.1 X10*3/uL (0.0-0.2); Basophils Percent Manual 1 % (0-2); Eosinophils Absolute Manual 0.3 X10*3/uL (0.0-0.4); Eosinophils Percent Manual 3 % (0-4); Lymphocytes Absolute Manual 0.6 X10*3/uL (1.2-4.9); Lymphocytes Percent Manual 6 % (20-40); Metamyelocytes Absolute 0.2 X10*3/uL; Metamyelocytes Percent 2 %; Monocytes Absolute Manual 1.1 X10*3/uL (0.1-1.2); Monocytes Percent Manual 11 % (2-11); Neutrophils Absolute Manual 7.5 X10*3/uL (2.0-8.3); Neutrophils Percent Manual 42 % (45-73)
[2023-05-31 05:43] LABS: Platelet Estimate NORMAL (NORMAL); Platelet Morphology Comment NORMAL; RBC Morphology NORMAL
[2023-05-31] MEDS: Omeprazole 40 MG CAPSULE.DR PO (06:24)
[2023-05-31] MEDS: Piperacillin Sodium/Tazobactam 3.375 GM in 0.9 % Sodium Chloride 50 ML IV ×3 (06:24→17:20)
[2023-05-31 07:18] LABS: Glucose, Whole Blood 186 mg/dL (60-115)
--- NOTE | 2023-05-31 07:59 | P.PNCC_ITS ---
Subjective Subjective Date of Service: 05/31/23 Interval History: non-contrast CT A/P demonstrating colitis; tachycardia to 140s yesterday PM, improved w/ IVF and resuming home metoprolol Critical Care Time (minutes): 60 Physical Exam 2 Vital Signs: Vital Signs: Last Vital Signs Temp 97.8 F 05/31/23 06:59 Pulse 95 05/31/23 06:59 Resp 24 H 05/31/23 06:59 BP 150/69 H 05/31/23 06:59 Pulse Ox 91 L 05/31/23 06:59 O2 Del Method Room Air 05/31/23 06:59 O2 Flow Rate 1 05/30/23 23:00 FiO2 93 05/29/23 19:00 Oxygen Flow Rate 3 05/29/23 04:00 BMI result Body Mass Index 41.3 Const: General: cooperative, comfortable, no acute distress, well developed, alert, awake and Physically active Orientation/consciousness: patient oriented x3 HEENT: Head: Yes normal to inspection, Yes normocephalic and Yes atraumatic Eyes: General: appearance normal, both eyes and all related structures Neck: Neck: Yes normal visual inspection, Yes full ROM and Yes supple Chest: Chest palpation & inspection: normal inspection of the chest Resp: Other: no appreciable rales, rhonchi, wheezing Cardio: Rate: regular rate Rhythm: regular rhythm GI: Other: some tenderness to palpation throughout; no guarding, rebound Inspection: Yes normal to inspection, No Abdominal wall edema and No distended Palpation (GI): Soft to palpation : External Female Exam: normal external appearance Skin: General skin exam: no rashes or lesions noted Neuro: General: patient oriented x3, tone normal, moves all extremities and no focal motor deficits Extrem: Other: L knee without erythema, fluctuance, induration General: Yes normal to inspection, Yes full ROM, Yes capillary refill normal and Yes no clubbing, cyanosis or edema Psych: Appearance: grossly normal Objective Data Labs 05/31/23 04:48 05/31/23 04:48 Labs: Laboratory Results - last 24 hr 05/30/23 05/30/23 05/30/23 09:06 11:42 13:26 WBC RBC Hgb Hct MCV MCH MCHC RDW Plt Count MPV Immature Gran % (Auto) Neut % (Auto) Lymph % (Auto) [place] % (Auto) Eos % (Auto) Baso % (Auto) Lymph # (Auto) [place] # (Auto) Eos # (Auto) Baso # (Auto) Abs Immat Gran (auto) Absolute Neuts (auto) Absolute Nucleated RBC Nucleated RBC % (auto) Neutrophils % (Manual) Band Neutrophils % Lymphocytes % (Manual) Atypical Lymphs % (Man) Monocytes % (Manual) Eosinophils % (Manual) Basophils % (Manual) Metamyelocytes % Myelocytes % Abs Neuts (Manual) Lymphocytes # (Manual) Atyp Lymphs # (Manual) Monocytes # (Manual) Eosinophils # (Manual) Basophils # (Manual) Metamyelocytes # Myelocytes # Toxic Granulation Platelet Estimate Plt Morphology Comment RBC Morphology [place] Cells PT INR VBG pH VBG pCO2 VBG pO2 VBG HCO3 VBG O2 Saturation VBG Base Excess Sodium 135 Potassium 3.5 Chloride 105 Carbon Dioxide 20 L Anion Gap 14 BUN 32 H Creatinine 1.19 Estim Creat Clear Calc 48.7 Estimated GFR 45 POC Glucose 301 H Random Glucose 329 H Lactic Acid Lactic Acid F/U @ 2Hr Lactic Acid F/U @ 4Hr Calcium 8.9 D Phosphorus 2.8 Magnesium 2.1 Total Bilirubin AST ALT Alkaline Phosphatase Total Protein Albumin TSH Stool Occult Blood Random Vancomycin 16.2 05/30/23 05/30/23 05/30/23 16:40 16:50 18:26 WBC RBC Hgb Hct MCV MCH MCHC RDW Plt Count MPV Immature Gran % (Auto) Neut % (Auto) Lymph % (Auto) [place] % (Auto) Eos % (Auto) Baso % (Auto) Lymph # (Auto) [place] # (Auto) Eos # (Auto) Baso # (Auto) Abs Immat Gran (auto) Absolute Neuts (auto) Absolute Nucleated RBC Nucleated RBC % (auto) Neutrophils % (Manual) Band Neutrophils % Lymphocytes % (Manual) Atypical Lymphs % (Man) Monocytes % (Manual) Eosinophils % (Manual) Basophils % (Manual) Metamyelocytes % Myelocytes % Abs Neuts (Manual) Lymphocytes # (Manual) Atyp Lymphs # (Manual) Monocytes # (Manual) Eosinophils # (Manual) Basophils # (Manual) Metamyelocytes # Myelocytes # Toxic Granulation Platelet Estimate Plt Morphology Comment RBC Morphology [place] Cells PT 14.7 H INR 1.2 H VBG pH VBG pCO2 VBG pO2 VBG HCO3 VBG O2 Saturation VBG Base Excess Sodium Potassium Chloride Carbon Dioxide Anion Gap BUN Creatinine Estim Creat Clear Calc Estimated GFR POC Glucose 302 H Random Glucose Lactic Acid 4.0 H* Lactic Acid F/U @ 2Hr Lactic Acid F/U @ 4Hr Calcium Phosphorus Magnesium Total Bilirubin AST ALT Alkaline Phosphatase Total Protein Albumin TSH 0.80 Stool Occult Blood Random Vancomycin 05/30/23 05/30/23 05/30/23 20:07 20:49 21:51 WBC 9.4 RBC 3.98 L Hgb 10.9 L Hct 31.2 L MCV 78.4 L MCH 27.4 MCHC 34.9 RDW 14.1 Plt Count 182 MPV 10.0 Immature Gran % (Auto) Cancelled Neut % (Auto) Cancelled Lymph % (Auto) Cancelled [place] % (Auto) Cancelled Eos % (Auto) Cancelled Baso % (Auto) Cancelled Lymph # (Auto) Cancelled [place] # (Auto) Cancelled Eos # (Auto) Cancelled Baso # (Auto) Cancelled Abs Immat Gran (auto) Cancelled Absolute Neuts (auto) Cancelled Absolute Nucleated RBC 0.020 H Nucleated RBC % (auto) 0.2 Neutrophils % (Manual) 54 Band Neutrophils % 17 H Lymphocytes % (Manual) 11 L Atypical Lymphs % (Man) 1 Monocytes % (Manual) 10 Eosinophils % (Manual) 1 Basophils % (Manual) Metamyelocytes % 5 Myelocytes % 1 Abs Neuts (Manual) 6.7 Lymphocytes # (Manual) 1.0 L Atyp Lymphs # (Manual) 0.1 Monocytes # (Manual) 0.9 Eosinophils # (Manual) 0.1 Basophils # (Manual) Metamyelocytes # 0.5 Myelocytes # 0.1 Toxic Granulation PRESENT Platelet Estimate NORMAL Plt Morphology Comment NORMAL RBC Morphology NOTED [place] Cells 2+ (3-5) PT INR VBG pH VBG pCO2 VBG pO2 VBG HCO3 VBG O2 Saturation VBG Base Excess Sodium 136 Potassium 3.3 Chloride 108 Carbon Dioxide 21 L Anion Gap 10 L BUN 24 H Creatinine 0.96 Estim Creat Clear Calc 60.4 Estimated GFR 58 POC Glucose 308 H Random Glucose 284 H Lactic Acid Lactic Acid F/U @ 2Hr 4.2 H* Lactic Acid F/U @ 4Hr Calcium 8.3 L D Phosphorus 1.8 L Magnesium 2.1 Total Bilirubin 0.9 AST 42 H ALT 35 H Alkaline Phosphatase 83 Total Protein 4.9 L Albumin 2.3 L TSH Stool Occult Blood Random Vancomycin 05/30/23 05/31/23 05/31/23 23:16 02:45 04:48 WBC 10.0 RBC 3.88 L Hgb 10.6 L Hct 30.7 L MCV 79.1 L MCH 27.3 MCHC 34.5 RDW 13.8 Plt Count 180 MPV 9.8 Immature Gran % (Auto) Cancelled Neut % (Auto) Cancelled Lymph % (Auto) Cancelled [place] % (Auto) Cancelled Eos % (Auto) Cancelled Baso % (Auto) Cancelled Lymph # (Auto) Cancelled [place] # (Auto) Cancelled Eos # (Auto) Cancelled Baso # (Auto) Cancelled Abs Immat Gran (auto) Cancelled Absolute Neuts (auto) Cancelled Absolute Nucleated RBC 0.000 Nucleated RBC % (auto) 0.0 Neutrophils % (Manual) 42 L Band Neutrophils % 33 H Lymphocytes % (Manual) 6 L Atypical Lymphs % (Man) 2 Monocytes % (Manual) 11 Eosinophils % (Manual) 3 Basophils % (Manual) 1 Metamyelocytes % 2 Myelocytes % Abs Neuts (Manual) 7.5 Lymphocytes # (Manual) 0.6 L Atyp Lymphs # (Manual) 0.2 Monocytes # (Manual) 1.1 Eosinophils # (Manual) 0.3 Basophils # (Manual) 0.1 Metamyelocytes # 0.2 Myelocytes # Toxic Granulation Platelet Estimate NORMAL Plt Morphology Comment NORMAL RBC Morphology NORMAL [place] Cells PT INR VBG pH VBG pCO2 VBG pO2 VBG HCO3 VBG O2 Saturation VBG Base Excess Sodium 138 Potassium 3.2 L Chloride 106 Carbon Dioxide 24 Anion Gap 11 L BUN 19 H Creatinine 0.79 Estim Creat Clear Calc 73.4 Estimated GFR > 60 POC Glucose Random Glucose 197 H Lactic Acid 1.5 Lactic Acid F/U @ 2Hr Lactic Acid F/U @ 4Hr 2.8 H* Calcium 7.8 L D Phosphorus 2.6 L Magnesium 1.9 Total Bilirubin AST ALT Alkaline Phosphatase Total Protein Albumin TSH Stool Occult Blood POSITIVE Random Vancomycin 05/31/23 05/31/23 04:49 07:09 WBC RBC Hgb Hct MCV MCH MCHC RDW Plt Count MPV Immature Gran % (Auto) Neut % (Auto) Lymph % (Auto) [place] % (Auto) Eos % (Auto) Baso % (Auto) Lymph # (Auto) [place] # (Auto) Eos # (Auto) Baso # (Auto) Abs Immat Gran (auto) Absolute Neuts (auto) Absolute Nucleated RBC Nucleated RBC % (auto) Neutrophils % (Manual) Band Neutrophils % Lymphocytes % (Manual) Atypical Lymphs % (Man) Monocytes % (Manual) Eosinophils % (Manual) Basophils % (Manual) Metamyelocytes % Myelocytes % Abs Neuts (Manual) Lymphocytes # (Manual) Atyp Lymphs # (Manual) Monocytes # (Manual) Eosinophils # (Manual) Basophils # (Manual) Metamyelocytes # Myelocytes # Toxic Granulation Platelet Estimate Plt Morphology Comment RBC Morphology [place] Cells PT INR VBG pH 7.50 H VBG pCO2 31 VBG pO2 47 VBG HCO3 24 VBG O2 Saturation 76.0 VBG Base Excess 2.2 Sodium Potassium Chloride Carbon Dioxide Anion Gap BUN Creatinine Estim Creat Clear Calc Estimated GFR POC Glucose 186 H Random Glucose Lactic Acid Lactic Acid F/U @ 2Hr Lactic Acid F/U @ 4Hr Calcium Phosphorus Magnesium Total Bilirubin AST ALT Alkaline Phosphatase Total Protein Albumin TSH Stool Occult Blood Random Vancomycin Microbiology Microbiology Results: Microbiology 05/29/23 06:38 Blood - Venous Blood Culture - Preliminary No growth after 24 hours. 05/29/23 05:45 Blood - Venous Blood Culture - Preliminary No growth after 24 hours. 05/27/23 13:35 Urine Catheterized - Ramos Catheter Urine Culture - Final No growth. Progress Note: A&P Assessment and plan (1) Pulmonary embolism: Status: Acute (2) Colitis: Status: Resolved (3) Status post total left knee replacement: Status: Acute (4) Diabetes: Status: Acute (5) Hypertension: Status: Acute Plan Patient is a 68 Y F with hypertension, non-insulin dependent diabetes mellitus, asthma, presenting for elective L total knee arthroplasty on 05/26; on 05/28, ICU called d/t hypotension, obtundation, transferred to ICU N: CT H reassuring; interval improvement of obtundation, now off opioids; multi- modal, non-opioid pain regimen as tolerated CV: hypotension, resolved; etiology unclear, possibly d/t over-sedation; sinus tachycardia, likely d/t hypovolemia in setting of continued diarrhea, improved R: acute hypoxia, on NC; found to have bilateral segmental PEs, on treatment- dose enoxaparin GI: colitis, diarrhea, to continue to monitor; diabetic diet : acute renal insufficiency, improved H: bilateral segmental PEs, on treatment-dose enoxaparin ID: empiric vancomycin, zosyn for possible infection in setting of hypotension E: hyperglycemia; on standing and sliding scale insulin P: no acute issues Quality Stroke Does the patient have a stroke diagnosis?: No VTE Prior VTE?: No VTE Risk Level:: Surgical - very high VTE Device Contraindication: N/A - Device Ordered VTE Drug Contraindication: N/A - Med Ordered
[2023-05-31] MEDS: Albuterol/Iprat 2.5/0.5MG 3 ML AMPUL.NEB INHALE ×4 (08:14→19:51)
[2023-05-31] MEDS: vancomycin HCL 1,000 MG in 0.9 % Sodium Chloride 250 ML 270 MG IV (09:01)
[2023-05-31] MEDS: Enoxaparin Sodium 100 MG/ML SYRINGE 90 MG SUBCUT ×2 (09:03→21:58)
[2023-05-31] MEDS: Insulin Lispro 100 UNIT/ML 3 ML VIAL SUBCUT ×4 (09:08→21:41)
[2023-05-31] MEDS: Calcium Chloride 1 GM/10 ML SYRINGE IVPUSH (09:10)
[2023-05-31] MEDS: Lidocaine 4 % Patch ADH..PATCH 2 PATCH TRANSDERMA (09:10)
[2023-05-31] MEDS: lisinopriL 40 MG TABLET PO (09:12)
[2023-05-31 11:16] LABS: Glucose, Whole Blood 195 mg/dL (60-115)
[2023-05-31] MEDS: Venlafaxine HCl ER 150 MG CAP.ER.24H PO (11:53)
--- NOTE | 2023-05-31 14:26 | P.PNOP_ITS ---
Subjective Subjective Date of Service: 05/31/23 Principal diagnosis: left TKA Interval history: POD 5 s/p LT TKA found to have bilat PE She is resting in bed this morning, more awake and conversing c/o stomach discomfort left knee feels good- she has been out of bed to the commode. Physical Exam Vital Signs: Vital Signs: Last Vital Signs Temp 98.0 F 05/31/23 11:56 Pulse 102 H 05/31/23 13:34 Resp 21 H 05/31/23 13:34 BP 162/81 H 05/31/23 13:34 Pulse Ox 91 L 05/31/23 13:34 O2 Del Method Room Air 05/31/23 13:34 O2 Flow Rate 1 05/30/23 23:00 FiO2 93 05/29/23 19:00 Oxygen Flow Rate 3 05/29/23 04:00 BMI result Body Mass Index 41.3 Extrem: Other: left knee bandage clean dry and intact. [place] intact. No erythema or joint effusion. Calf supple nontender. Neurovascularly intact. Procedures Date of Service Date of Service: 05/31/23 Progress Note: A&P Assessment and plan (1) Pulmonary embolism: Status: Acute Assessment and Plan: POD # 5 s/p left TKA c/b PE with taccycardia and diarrhea. CT scan abdomen colitis PT when tolerated no narcotics transfer out of ICU when acceptable (2) Status post total left knee replacement: Status: Acute Time Spent With Patient Time: Total time managing care of this patient today ____ minutes. Quality Stroke Does the patient have a stroke diagnosis?: No VTE Prior VTE?: No VTE Risk Level:: Surgical - very high VTE Device Contraindication: N/A - Device Ordered VTE Drug Contraindication: N/A - Med Ordered
[2023-05-31] MEDS: Gabapentin 100 MG CAPSULE PO ×2 (15:35→21:40)
[2023-05-31] MEDS: hydrOXYzine HCL 10 MG TABLET PO (15:37)
[2023-05-31 16:01] LABS: Glucose, Whole Blood 199 mg/dL (60-115)
[2023-05-31 18:23] LABS: Vancomycin Random 12.8 mcg/mL (15-20)
--- NOTE | 2023-05-31 19:06 | HE.PHANOTE ---
RE: vanco Patient's creatinine improved, predicted AUC for 1000mg Q12H was subtherapeutic. Increased dose to 1250mg Q12H with predicted AUC f 488 mg/L, trough of 13.8. Next level to be drawn 05/31 @1800
[2023-05-31 20:59] LABS: Glucose, Whole Blood 272 mg/dL (60-115)
[2023-05-31 21:13] LABS: Phosphorus 2.5 mg/dL (2.7-4.5)
[2023-05-31] MEDS: cloNIDine HCL 0.2 MG TABLET PO (21:40)
[2023-05-31] MEDS: vancomycin HCL 1,250 MG in 0.9 % Sodium Chloride 250 ML 166.67 MG IV (21:59)
--- NOTE | 2023-05-31 22:42 | ECG_ITS ---
Test Reason : ? rhythm change Blood Pressure : / mmHG Vent. Rate : 097 BPM Atrial Rate : 097 BPM P-R Int : 126 ms QRS Dur : 098 ms QT Int : 306 ms P-R-T Axes : 031 012 031 degrees QTc Int : 388 ms Sinus rhythm with Premature atrial complexes Nonspecific ST and T wave abnormality Abnormal ECG When compared with ECG of 30-MAY-2023 14:07, Premature atrial complexes are now Present T wave inversion no longer evident in Lateral leads Referred By: Cleo Balderas Electronically Signed By:BYRON BLANCA
[2023-05-31] MEDS: ondansetron HCL 4 MG/2 ML VIAL IVPUSH (22:56)
[2023-06-01] VITALS (17 sets, daily range): BP systolic 123–171; BP diastolic 55–75; PULSE 75–89; RESP 18–22; TEMP 36.2–36.9; O2SAT 81–97; BMI 41.1
[2023-06-01] MEDS: Piperacillin Sodium/Tazobactam 3.375 GM in 0.9 % Sodium Chloride 50 ML IV ×5 (00:52→23:42)
[2023-06-01] MEDS: Metoprolol Tartrate 50 MG TABLET PO ×4 (03:35→20:36)
[2023-06-01] MEDS: Acetaminophen 325 MG TABLET 975 MG PO ×3 (03:39→20:35)
[2023-06-01 05:12] LABS: Hematocrit 29.7 % (37.0-47.0); Hemoglobin 10.2 g/dl (12.0-16.0); Mean Corpuscular HGB Conc 34.3 g/dl (31.0-35.0); Mean Corpuscular Hemoglobin 27.6 pg (27.0-33.0); Mean Corpuscular Volume 80.3 fL (80.0-98.0); Mean Platelet Volume 10.1 fL (9.4-12.3); NRBC Pct Auto 0.1 /100WBC (0.0-0.2); Platelet Count 186 X10*3/uL (160-400); Red Cell Distribution Width 14.3 % (11.0-16.0); WBC ABN SCTR FOR CBC 1
[2023-06-01 05:33] LABS: Albumin Level 2.1 g/dL (3.5-5.0); Anion Gap 10 (12-20); Band Neutrophils Percent 14 % (3-5); Blood Urea Nitrogen 14 mg/dL (9-16); Calcium 7.5 mg/dL (8.4-10.2); Carbon Dioxide 22 mmol/L (22-29); Chloride 107 mmol/L (96-108); Creatinine Clr Calc Pharmacy 76.3; Eosinophils Absolute Manual 0.1 X10*3/uL (0.0-0.4); Eosinophils Percent Manual 1 % (0-4); Estimated Glomerular Filt Rate > 60; Glucose Random 198 mg/dL (60-115); Lymphocytes Absolute Manual 1.3 X10*3/uL (1.2-4.9); Lymphocytes Percent Manual 9 % (20-40); Magnesium 1.8 mg/dL (1.6-2.6); Metamyelocytes Percent 7 %; Monocytes Absolute Manual 0.8 X10*3/uL (0.1-1.2); Monocytes Percent Manual 6 % (2-11); Myelocytes Absolute 0.1 X10*/uL; Myelocytes Percent 1 %; Neutrophils Absolute Manual 10.6 X10*3/uL (2.0-8.3); Neutrophils Percent Manual 62 % (45-73); Potassium 3.3 mmol/L (3.3-5.1); Sodium 136 mmol/L (135-145)
[2023-06-01 05:34] LABS: RBC Morphology NORMAL
[2023-06-01 05:35] LABS: Dohle Bodies PRESENT; Platelet Estimate NORMAL (NORMAL); Platelet Morphology Comment NORMAL
[2023-06-01] MEDS: Albumin Human 25 % 100 ML IV ×2 (06:07→07:14)
[2023-06-01] MEDS: Omeprazole 40 MG CAPSULE.DR PO (06:07)
[2023-06-01] MEDS: Albuterol/Iprat 2.5/0.5MG 3 ML AMPUL.NEB INHALE (07:08)
[2023-06-01 07:40] LABS: Glucose, Whole Blood 180 mg/dL (60-115)
--- NOTE | 2023-06-01 08:08 | PM.PNORT ---
Subjective Subjective Date of Service: 06/01/23 Principal diagnosis: left TKA Interval history: POD 6 s/p LT TKA found to have bilat PE She is resting in bed this morning, more awake and conversing c/o mild stomach discomfort states she has been in the chair yesterday left knee feels good- she has been out of bed to the commode. Physical Exam Vital Signs: Vital Signs: Last Vital Signs Temp 98.3 F 06/01/23 04:00 Pulse 86 06/01/23 08:00 Resp 22 H 06/01/23 08:00 BP 132/61 06/01/23 08:00 Pulse Ox 89 L 06/01/23 08:00 O2 Del Method Room Air 06/01/23 08:00 O2 Flow Rate 1 05/30/23 23:00 FiO2 93 05/29/23 19:00 Oxygen Flow Rate 3 05/29/23 04:00 BMI result Body Mass Index 41.1 Extrem: Other: left knee bandage clean dry and intact. [place] intact. No erythema or joint effusion. Calf supple nontender. Neurovascularly intact. Procedures Date of Service Date of Service: 06/01/23 Progress Note: A&P Assessment and plan (1) Pulmonary embolism: Status: Acute Assessment and Plan: POD # 6 s/p left TKA c/b PE with taccycardia and diarrhea. CT scan abdomen colitis PT when tolerated no narcotics transfer out of ICU when acceptable (2) Status post total left knee replacement: Status: Acute Time Spent With Patient Time: Total time managing care of this patient today ____ minutes. Quality Stroke Does the patient have a stroke diagnosis?: No VTE Prior VTE?: No VTE Risk Level:: Surgical - very high VTE Device Contraindication: N/A - Device Ordered VTE Drug Contraindication: N/A - Med Ordered
[2023-06-01] MEDS: Lidocaine 4 % Patch ADH..PATCH 2 PATCH TRANSDERMA (08:24)
[2023-06-01] MEDS: Potassium Chloride Packet 20 MEQ PACKET 40 MEQ PO (08:24)
[2023-06-01] MEDS: Insulin Lispro 100 UNIT/ML 3 ML VIAL SUBCUT ×4 (08:24→21:33)
[2023-06-01] MEDS: lisinopriL 40 MG TABLET PO (08:25)
[2023-06-01] MEDS: Enoxaparin Sodium 100 MG/ML SYRINGE 90 MG SUBCUT ×2 (08:25→20:34)
[2023-06-01] MEDS: Venlafaxine HCl ER 150 MG CAP.ER.24H PO (08:25)
[2023-06-01] MEDS: Gabapentin 100 MG CAPSULE PO ×3 (08:25→20:36)
[2023-06-01] MEDS: Loperamide HCl 2 MG CAPSULE 4 MG PO ×3 (08:30→20:36)
--- NOTE | 2023-06-01 10:49 | P.PNCC_ITS ---
Subjective Subjective Date of Service: 06/01/23 Interval History: 68-year-old lady with underlying asthma/COPD overlap syndrome, diabetes mellitus, hypertension status post elective left total knee arthroplasty on 05/27/2023 with hospital course complicated encephalopathy, likely medication related, enteritis/colitis, and bilateral pulmonary emboli transferred to ICU on 05/29/2019 secondary to hypotension briefly requiring pressor support, now titrated off. No events overnight. Critical Care Time (minutes): 0 Physical Exam 2 Vital Signs: Vital Signs: Last Vital Signs Temp 98.3 F 06/01/23 04:00 Pulse 86 06/01/23 08:00 Resp 22 H 06/01/23 08:00 BP 132/61 06/01/23 08:00 Pulse Ox 89 L 06/01/23 08:00 O2 Del Method Room Air 06/01/23 08:00 O2 Flow Rate 1 05/30/23 23:00 FiO2 93 05/29/23 19:00 Oxygen Flow Rate 3 05/29/23 04:00 BMI result Body Mass Index 41.1 Const: General: no acute distress, alert and awake Eyes: Sclerae: sclerae normal EOM: EOMs intact bilaterally Neck: Neck: Yes no lymphadenopathy, Yes trachea midline and Yes supple Resp: Effort & Inspection: normal respiratory effort and no respiratory distress Auscultation: clear to auscultation bilaterally Cardio: Rate: regular rate Rhythm: regular rhythm Heart sounds: no gallops, no murmurs and no rubs GI: Palpation (GI): Soft to palpation and Other GI palpation findings present ( Nontender) Auscultation: normal bowel sounds Extrem: General: Yes no pedal edema, No clubbing and No cyanosis Objective Data Labs 06/01/23 04:51 06/01/23 04:51 Labs: Laboratory Results - last 24 hr 05/31/23 05/31/23 05/31/23 11:08 15:57 17:56 WBC RBC Hgb Hct MCV MCH MCHC RDW Plt Count MPV Immature Gran % (Auto) Neut % (Auto) Lymph % (Auto) [place] % (Auto) Eos % (Auto) Baso % (Auto) Lymph # (Auto) [place] # (Auto) Eos # (Auto) Baso # (Auto) Abs Immat Gran (auto) Absolute Neuts (auto) Absolute Nucleated RBC Nucleated RBC % (auto) Neutrophils % (Manual) Band Neutrophils % Lymphocytes % (Manual) Monocytes % (Manual) Eosinophils % (Manual) Metamyelocytes % Myelocytes % Abs Neuts (Manual) Lymphocytes # (Manual) Monocytes # (Manual) Eosinophils # (Manual) Metamyelocytes # Myelocytes # Dohle Bodies Platelet Estimate Plt Morphology Comment RBC Morphology Sodium Potassium Chloride Carbon Dioxide Anion Gap BUN Creatinine Estim Creat Clear Calc Estimated GFR POC Glucose 195 H 199 H Random Glucose Calcium Phosphorus Magnesium Albumin Random Vancomycin 12.8 L 05/31/23 05/31/23 06/01/23 20:42 20:55 04:51 WBC 14.0 H RBC 3.70 L Hgb 10.2 L Hct 29.7 L MCV 80.3 MCH 27.6 MCHC 34.3 RDW 14.3 Plt Count 186 MPV 10.1 Immature Gran % (Auto) Cancelled Neut % (Auto) Cancelled Lymph % (Auto) Cancelled [place] % (Auto) Cancelled Eos % (Auto) Cancelled Baso % (Auto) Cancelled Lymph # (Auto) Cancelled [place] # (Auto) Cancelled Eos # (Auto) Cancelled Baso # (Auto) Cancelled Abs Immat Gran (auto) Cancelled Absolute Neuts (auto) Cancelled Absolute Nucleated RBC 0.020 H Nucleated RBC % (auto) 0.1 Neutrophils % (Manual) 62 Band Neutrophils % 14 H Lymphocytes % (Manual) 9 L Monocytes % (Manual) 6 Eosinophils % (Manual) 1 Metamyelocytes % 7 Myelocytes % 1 Abs Neuts (Manual) 10.6 H Lymphocytes # (Manual) 1.3 Monocytes # (Manual) 0.8 Eosinophils # (Manual) 0.1 Metamyelocytes # 1.0 Myelocytes # 0.1 Dohle Bodies PRESENT Platelet Estimate NORMAL Plt Morphology Comment NORMAL RBC Morphology NORMAL Sodium 136 Potassium 3.3 Chloride 107 Carbon Dioxide 22 Anion Gap 10 L BUN 14 Creatinine 0.78 Estim Creat Clear Calc 76.3 Estimated GFR > 60 POC Glucose 272 H Random Glucose 198 H Calcium 7.5 L Phosphorus 2.5 L Magnesium 1.8 Albumin 2.1 L Random Vancomycin 06/01/23 07:37 WBC RBC Hgb Hct MCV MCH MCHC RDW Plt Count MPV Immature Gran % (Auto) Neut % (Auto) Lymph % (Auto) [place] % (Auto) Eos % (Auto) Baso % (Auto) Lymph # (Auto) [place] # (Auto) Eos # (Auto) Baso # (Auto) Abs Immat Gran (auto) Absolute Neuts (auto) Absolute Nucleated RBC Nucleated RBC % (auto) Neutrophils % (Manual) Band Neutrophils % Lymphocytes % (Manual) Monocytes % (Manual) Eosinophils % (Manual) Metamyelocytes % Myelocytes % Abs Neuts (Manual) Lymphocytes # (Manual) Monocytes # (Manual) Eosinophils # (Manual) Metamyelocytes # Myelocytes # Dohle Bodies Platelet Estimate Plt Morphology Comment RBC Morphology Sodium Potassium Chloride Carbon Dioxide Anion Gap BUN Creatinine Estim Creat Clear Calc Estimated GFR POC Glucose 180 H Random Glucose Calcium Phosphorus Magnesium Albumin Random Vancomycin Microbiology Microbiology Results: Microbiology 05/29/23 06:38 Blood - Venous Blood Culture - Preliminary No growth after 48 hours. 05/29/23 05:45 Blood - Venous Blood Culture - Preliminary No growth after 48 hours. 05/27/23 13:35 Urine Catheterized - Ramos Catheter Urine Culture - Final No growth. Progress Note: A&P Assessment and plan (1) Pulmonary embolism: Status: Acute (2) Diabetes: Status: Acute (3) Status post knee replacement: Status: Acute (4) MGUS (monoclonal gammopathy of unknown significance): Status: Acute (5) Asthma-COPD overlap syndrome: Status: Acute (6) Colitis: Status: Resolved Plan Assessment: Plan: Neuro: No acute issues. Cardiac: No acute issues. Pulmonary: Bilateral segmental pulmonary emboli, continue Lovenox. Renal: No acute issues. Endo: No acute issues. Underlying diabetes mellitus/hypothyroidism. GI: Colitis/enteritis. Continue Zosyn. Continue loperamide for symptomatic relief. ID: As per GI section. Heme/Onc: No acute issues. Psych: No acute issues. Miscellaneous: No acute issues. Prophylaxis: Lovenox Diet: Diabetic Quality Stroke Does the patient have a stroke diagnosis?: No VTE Prior VTE?: No VTE Risk Level:: Surgical - very high VTE Device Contraindication: N/A - Device Ordered VTE Drug Contraindication: N/A - Med Ordered
--- NOTE | 2023-06-01 11:22 | MHC.CM.PN ---
Pt is making clinical progress and will transfer to the medical floor today. Updates sent to [facility] where pt will go for STR. CM to follow
[2023-06-01 13:01] LABS: Glucose, Whole Blood 189 mg/dL (60-115)
[2023-06-01] MEDS: hydrOXYzine HCL 10 MG TABLET PO (14:20)
[2023-06-01 15:50] LABS: Glucose, Whole Blood 177 mg/dL (60-115)
[2023-06-01 18:39] LABS: Vancomycin Random 8.4 mcg/mL (15-20)
[2023-06-01] MEDS: cloNIDine HCL 0.2 MG TABLET PO (20:36)
[2023-06-01 20:43] LABS: Glucose, Whole Blood 170 mg/dL (60-115)
[2023-06-01] MEDS: Insulin Glargine,Hum.rec.anlog 100 UNIT/ML 10 ML VIAL 10 UNIT SUBCUT (21:32)
--- NOTE | 2023-06-01 23:57 | PC.NURSE ---
05/31 at 2320, pt's [place] catheter was removed earlier today, pt has been unable to void on her own, she was already straight cath'd earlier this afternoon and still unable to void on her own. Bladder scanned for 436 ml, tiger text to Dr. Hanna, straight cath ordered. Pt straight cath'd at 2335 ml for 400 ml. Will continue to monitor.
[2023-06-02 03:41] VITALS: BP 151/64; PULSE 87; RESP 16; TEMP 36.8; O2SAT 96
[2023-06-02] MEDS: Metoprolol Tartrate 50 MG TABLET PO ×4 (03:48→20:03)
[2023-06-02] MEDS: Acetaminophen 325 MG TABLET 975 MG PO ×3 (05:58→18:41)
[2023-06-02] MEDS: Omeprazole 40 MG CAPSULE.DR PO (05:59)
[2023-06-02] MEDS: Loperamide HCl 2 MG CAPSULE 4 MG PO ×3 (05:59→18:41)
[2023-06-02] MEDS: Levothyroxine Sodium 75 MCG TABLET PO (05:59)
[2023-06-02] MEDS: Piperacillin Sodium/Tazobactam 3.375 GM in 0.9 % Sodium Chloride 50 ML IV (06:00)
[2023-06-02 06:10] LABS: Alanine Aminotransferase 28 U/L (0-31); Albumin Level 2.6 g/dL (3.5-5.0); Alkaline Phosphatase 138 U/L (39-117); Anion Gap 10 (12-20); Aspartate Amino Transferase 35 U/L (5-31); Bilirubin Total 0.8 mg/dL (0.0-1.0); Blood Urea Nitrogen 12 mg/dL (9-16); Calcium 8.1 mg/dL (8.4-10.2); Carbon Dioxide 25 mmol/L (22-29); Chloride 109 mmol/L (96-108); Creatinine Clr Calc Pharmacy 72.4; Estimated Glomerular Filt Rate > 60; Glucose Random 148 mg/dL (60-115); Hematocrit 30.9 % (37.0-47.0); Hemoglobin 10.2 g/dl (12.0-16.0); Magnesium 1.9 mg/dL (1.6-2.6); Mean Corpuscular Hemoglobin 26.8 pg (27.0-33.0); Mean Corpuscular Volume 81.3 fL (80.0-98.0); Mean Platelet Volume 10.4 fL (9.4-12.3); NRBC Pct Auto 0.2 /100WBC (0.0-0.2); Phosphorus 2.1 mg/dL (2.7-4.5); Platelet Count 210 X10*3/uL (160-400); Potassium 3.7 mmol/L (3.3-5.1); Red Cell Distribution Width 14.8 % (11.0-16.0); Sodium 140 mmol/L (135-145); White Blood Count 18.5 X10*3/uL (4.8-10.8)
--- NOTE | 2023-06-02 06:14 | PC.NURSE ---
Pt unable to void overnight, bladder scanned at 0520 for 606 ml. [place] text sent to Dr. Hanna. Ramos catheter ordered and placed at 0530. Unable to document in expanse, it won't let me save my documentation.
[2023-06-02 07:00] LABS: Band Neutrophils Percent 15 % (3-5); Eosinophils Absolute Manual 0.2 X10*3/uL (0.0-0.4); Eosinophils Percent Manual 1 % (0-4); Hypochromasia 1+ (5-14) /OIF; Lymphocytes Absolute Manual 1.9 X10*3/uL (1.2-4.9); Lymphocytes Percent Manual 10 % (20-40); Metamyelocytes Absolute 0.6 X10*3/uL; Metamyelocytes Percent 3 %; Monocytes Absolute Manual 0.9 X10*3/uL (0.1-1.2); Monocytes Percent Manual 5 % (2-11); Myelocytes Absolute 0.2 X10*/uL; Myelocytes Percent 1 %; Neutrophils Absolute Manual 14.8 X10*3/uL (2.0-8.3); Neutrophils Percent Manual 65 % (45-73); RBC Morphology NOTED
[2023-06-02 07:04] LABS: Platelet Estimate NORMAL (NORMAL); Platelet Morphology Comment NORMAL
[2023-06-02 07:05] LABS: Dohle Bodies PRESENT
[2023-06-02 07:29] LABS: Glucose, Whole Blood 123 mg/dL (60-115)
--- NOTE | 2023-06-02 07:37 | PM.PNORT ---
Subjective Subjective Date of Service: 06/02/23 Principal diagnosis: left TKA Interval history: POD 66 s/p LT TKA found to have bilat PE She is resting in bed this morning, more awake and conversing left knee feels good- no concerns today Physical Exam Vital Signs: Vital Signs: Last Vital Signs Temp 98.3 F 06/02/23 03:41 Pulse 87 06/02/23 03:41 Resp 16 06/02/23 03:41 BP 151/64 H 06/02/23 03:41 Pulse Ox 96 06/02/23 03:41 O2 Del Method Room Air 06/02/23 03:41 O2 Flow Rate 2 06/01/23 19:21 FiO2 93 05/29/23 19:00 Oxygen Flow Rate 3 05/29/23 04:00 BMI result Body Mass Index 41.1 Const: General: no acute distress, alert and awake Eyes: Sclerae: sclerae normal EOM: EOMs intact bilaterally Neck: Neck: Yes no lymphadenopathy, Yes trachea midline and Yes supple Resp: Effort & Inspection: normal respiratory effort and no respiratory distress Auscultation: clear to auscultation bilaterally Cardio: Rate: regular rate Rhythm: regular rhythm Heart sounds: no gallops, no murmurs and no rubs GI: Palpation (GI): Soft to palpation and Other GI palpation findings present ( Nontender) Auscultation: normal bowel sounds Extrem: Other: left knee bandage clean dry and intact. [place] intact. No erythema or joint effusion. Calf supple nontender. Neurovascularly intact. General: Yes no pedal edema, No clubbing and No cyanosis Procedures Date of Service Date of Service: 06/02/23 Progress Note: A&P Assessment and plan (1) Pulmonary embolism: Status: Acute Assessment and Plan: POD # 7 s/p left TKA c/b PE with taccycardia and diarrhea. PT-wbat encouraged out of bed to chair and walking d/c when medically stable (2) Status post total left knee replacement: Status: Acute Time Spent With Patient Time: Total time managing care of this patient today ____ minutes. Quality Stroke Does the patient have a stroke diagnosis?: No VTE Prior VTE?: No VTE Risk Level:: Surgical - very high VTE Device Contraindication: N/A - Device Ordered VTE Drug Contraindication: N/A - Med Ordered
--- NOTE | 2023-06-02 07:57 | PC.RT ---
pt eating breakfast, stated she did not want tx.
[2023-06-02 08:00] VITALS: BP 154/69; PULSE 80; RESP 16; TEMP 36.3; O2SAT 97
[2023-06-02] MEDS: Venlafaxine HCl ER 150 MG CAP.ER.24H PO (08:48)
[2023-06-02] MEDS: lisinopriL 40 MG TABLET PO (08:48)
[2023-06-02] MEDS: Gabapentin 100 MG CAPSULE PO ×3 (08:48→20:03)
[2023-06-02] MEDS: Enoxaparin Sodium 100 MG/ML SYRINGE 90 MG SUBCUT ×2 (08:49→20:03)
[2023-06-02] MEDS: Lidocaine 4 % Patch ADH..PATCH 2 PATCH TRANSDERMA (08:54)
[2023-06-02 10:22] VITALS: PULSE 84; O2SAT 97
[2023-06-02 11:35] LABS: Glucose, Whole Blood 148 mg/dL (60-115)
[2023-06-02] MEDS: ondansetron HCL 4 MG/2 ML VIAL IVPUSH (12:43)
[2023-06-02] MEDS: iohexoL 350 MG/ML 100 ML INFUS..BTL 85 ML IV (13:39)
[2023-06-02] MEDS: metroNIDAZOLE/NS 500 MG/100 ML PIGGYBACK 100 MG IV ×2 (13:44→20:03)
[2023-06-02] MEDS: levoFLOXacin/D5W 750 MG/150 ML PIGGYBACK 100 MG IV (15:00)
--- NOTE | 2023-06-02 15:06 | P.PNIM_ITS ---
Subjective Subjective Date of Service: 06/02/23 Interval History: Continues with abdominal pain across lower abdomen. White count elevated this a.m.. No respiratory distress Review of Systems Denies chest pain Denies shortness of breath Denies nausea vomiting diarrhea Denies fever chills Physical Exam 2 Vital Signs: Vital Signs: Last Vital Signs Temp 97.3 F 06/02/23 08:00 Pulse 84 06/02/23 10:22 Resp 16 06/02/23 08:00 BP 154/69 H 06/02/23 08:00 Pulse Ox 97 06/02/23 10:22 O2 Del Method Nasal Cannula 06/02/23 08:00 O2 Flow Rate 2.0 06/02/23 08:00 FiO2 93 05/29/23 19:00 Oxygen Flow Rate 3 05/29/23 04:00 BMI result Body Mass Index 41.1 Const: Other: Awake alert oriented x3 no acute distress Resp: Other: Clear to auscultation bilaterally no rales rhonchi or wheezes Cardio: Other: No S4; positive S1-S2; no S3 murmurs rubs or gallops GI: Other: Tender diffusely across lower abdomen without rebound Extrem: Other: Bilateral edema noted. Worse on op-site extremity Objective Data Active Medications Acetaminophen (Acetaminophen 325 Mg Tablet) 975 mg PO Q6H PRN PRN Reason: Pain, Moderate(Pain Scale 4-6) Last Admin: 06/02/23 12:31 Dose: 975 mg Documented By: PEDRO Albuterol Sulfate (Albuterol Sulfate 90 Mcg 8 Gm Inhaler) 2 puff INHALE RQ4H PRN PRN Reason: Wheezing Albuterol/Ipratropium (Albuterol/Iprat 2.5/0.5mg 3 Ml Ampul.Neb) 3 ml INHALE RQ4H WHILE AWAKE PRN PRN Reason: Wheezing Clonidine HCl (Clonidine Hcl 0.2 Mg Tablet) 0.2 mg PO BEDTIME APARNA; Protocol Last Admin: 06/01/23 20:36 Dose: 0.2 mg Documented By: APRIL Dextrose (Dextrose 50 % 25 Gm/50 Ml Syringe) 25 gm IVPUSH Q15M PRN; Protocol PRN Reason: per Hypoglycemia Standing Ord. Enoxaparin Sodium (Enoxaparin Sodium 100 Mg/Ml Syringe) 90 mg 1 mg/kg (90 mg) SUBCUT Q12H [facility] Last Admin: 06/02/23 08:49 Dose: 90 mg Documented By: PEDRO Gabapentin (Gabapentin 100 Mg Capsule) 100 mg PO TID [facility] Last Admin: 06/02/23 14:54 Dose: 100 mg Documented By: ELISE Glucose (Glucose Gel 15 Gm Gel..Gram.) 15 gm PO Q15M PRN; Protocol PRN Reason: per Hypoglycemia Standing Ord. Hydroxyzine HCl (Hydroxyzine Hcl 10 Mg Tablet) 10 mg PO Q8H PRN PRN Reason: Anxiety Last Admin: 06/01/23 14:20 Dose: 10 mg Documented By: NATHALIE Metronidazole (Flagyl) 500 mg in 100 mls @ 100 mls/hr IV Q8H [facility] Last Infusion: 06/02/23 15:00 Dose: Infused Documented By: ELISE Levofloxacin (Levaquin) 750 mg in 150 mls @ 100 mls/hr IV Q24H [facility] Last Admin: 06/02/23 15:00 Dose: 100 mls/hr Documented By: ELISE Insulin Glargine (Insulin Glargine,Hum.Rec.Anlog 100 Unit/Ml 10 Ml Vial) 10 unit SUBCUT BEDTIME [facility] Last Admin: 06/01/23 21:32 Dose: 10 unit Documented By: APRIL Insulin Human Lispro (Insulin Lispro 100 Unit/Ml 3 Ml Vial) 0 unit SUBCUT QIDACHS [facility]; Protocol Last Admin: 06/02/23 11:39 Dose: Not Given Documented By: PEDRO Non-Admin Reason: No Insulin Coverage Levothyroxine Sodium (Levothyroxine Sodium 75 Mcg Tablet) 75 mcg PO DAILY@0600 [facility] Last Admin: 06/02/23 05:59 Dose: 75 mcg Documented By: APRIL Lidocaine (Lidocaine 4 % Patch Adh..Patch) 2 patch TRANSDERMA DAILY [facility]; Protocol Last Admin: 06/02/23 08:54 Dose: 2 patch Documented By: PEDRO Lisinopril (Lisinopril 40 Mg Tablet) 40 mg PO DAILY [facility]; Protocol Last Admin: 06/02/23 08:48 Dose: 40 mg Documented By: PEDRO Loperamide HCl (Loperamide Hcl 2 Mg Capsule) 4 mg PO Q6H PRN PRN Reason: Diarrhea Last Admin: 06/02/23 12:31 Dose: 4 mg Documented By: PEDRO Metoprolol Tartrate (Metoprolol Tartrate 50 Mg Tablet) 50 mg PO Q6H [facility]; Protocol Last Admin: 06/02/23 14:54 Dose: 50 mg Documented By: ELISE Omeprazole (Omeprazole 40 Mg Capsule.Dr) 40 mg PO DAILY@0630 [facility] Last Admin: 06/02/23 05:59 Dose: 40 mg Documented By: APRIL Ondansetron HCl (Ondansetron Hcl 4 Mg/2 Ml Vial) 4 mg IVPUSH Q6H PRN PRN Reason: Nausea and Vomiting Last Admin: 06/02/23 12:43 Dose: 4 mg Documented By: PEDRO Venlafaxine HCl (Venlafaxine Hcl Er 150 Mg Cap.Er.24h) 150 mg PO DAILY [facility] Last Admin: 06/02/23 08:48 Dose: 150 mg Documented By: PEDRO Labs 06/02/23 05:09 06/02/23 05:09 Labs: Laboratory Results - last 24 hr 06/01/23 06/01/23 06/01/23 15:43 18:06 20:37 MCV MCH MCHC RDW Plt Count MPV Immature Gran % (Auto) Neut % (Auto) Lymph % (Auto) Sherman % (Auto) Eos % (Auto) Baso % (Auto) Lymph # (Auto) Sherman # (Auto) Eos # (Auto) Baso # (Auto) Abs Immat Gran (auto) Absolute Neuts (auto) Absolute Nucleated RBC Nucleated RBC % (auto) Neutrophils % (Manual) Band Neutrophils % Lymphocytes % (Manual) Monocytes % (Manual) Eosinophils % (Manual) Metamyelocytes % Myelocytes % Abs Neuts (Manual) Lymphocytes # (Manual) Monocytes # (Manual) Eosinophils # (Manual) Metamyelocytes # Myelocytes # Dohle Bodies Platelet Estimate Plt Morphology Comment RBC Morphology Hypochromasia Anion Gap Estim Creat Clear Calc Estimated GFR POC Glucose 177 H 170 H Random Glucose Calcium Phosphorus Magnesium Total Bilirubin AST ALT Alkaline Phosphatase Total Protein Albumin Random Vancomycin 8.4 L 06/02/23 06/02/23 06/02/23 05:09 05:09 05:09 MCV Cancelled 81.3 MCH Cancelled 26.8 L MCHC Cancelled RDW Plt Count MPV Immature Gran % (Auto) Neut % (Auto) Lymph % (Auto) Sherman % (Auto) Eos % (Auto) Baso % (Auto) Lymph # (Auto) Sherman # (Auto) Eos # (Auto) Baso # (Auto) Abs Immat Gran (auto) Absolute Neuts (auto) Absolute Nucleated RBC Nucleated RBC % (auto) Neutrophils % (Manual) Band Neutrophils % Lymphocytes % (Manual) Monocytes % (Manual) Eosinophils % (Manual) Metamyelocytes % Myelocytes % Abs Neuts (Manual) Lymphocytes # (Manual) Monocytes # (Manual) Eosinophils # (Manual) Metamyelocytes # Myelocytes # Dohle Bodies Platelet Estimate Plt Morphology Comment RBC Morphology Hypochromasia Anion Gap Estim Creat Clear Calc Estimated GFR POC Glucose Random Glucose Calcium Phosphorus Magnesium Total Bilirubin AST ALT Alkaline Phosphatase Total Protein Albumin Random Vancomycin 06/02/23 06/02/23 06/02/23 05:09 05:09 05:09 MCV MCH MCHC 33.0 RDW Cancelled 14.8 Plt Count Cancelled 210 MPV Cancelled Immature Gran % (Auto) Neut % (Auto) Lymph % (Auto) Sherman % (Auto) Eos % (Auto) Baso % (Auto) Lymph # (Auto) Sherman # (Auto) Eos # (Auto) Baso # (Auto) Abs Immat Gran (auto) Absolute Neuts (auto) Absolute Nucleated RBC Nucleated RBC % (auto) Neutrophils % (Manual) Band Neutrophils % Lymphocytes % (Manual) Monocytes % (Manual) Eosinophils % (Manual) Metamyelocytes % Myelocytes % Abs Neuts (Manual) Lymphocytes # (Manual) Monocytes # (Manual) Eosinophils # (Manual) Metamyelocytes # Myelocytes # Dohle Bodies Platelet Estimate Plt Morphology Comment RBC Morphology Hypochromasia Anion Gap Estim Creat Clear Calc Estimated GFR POC Glucose Random Glucose Calcium Phosphorus Magnesium Total Bilirubin AST ALT Alkaline Phosphatase Total Protein Albumin Random Vancomycin 06/02/23 06/02/23 06/02/23 05:09 05:09 05:09 MCV MCH MCHC RDW Plt Count MPV 10.4 Immature Gran % (Auto) Cancelled Cancelled Neut % (Auto) Cancelled Cancelled Lymph % (Auto) Cancelled Sherman % (Auto) Eos % (Auto) Baso % (Auto) Lymph # (Auto) Sherman # (Auto) Eos # (Auto) Baso # (Auto) Abs Immat Gran (auto) Absolute Neuts (auto) Absolute Nucleated RBC Nucleated RBC % (auto) Neutrophils % (Manual) Band Neutrophils % Lymphocytes % (Manual) Monocytes % (Manual) Eosinophils % (Manual) Metamyelocytes % Myelocytes % Abs Neuts (Manual) Lymphocytes # (Manual) Monocytes # (Manual) Eosinophils # (Manual) Metamyelocytes # Myelocytes # Dohle Bodies Platelet Estimate Plt Morphology Comment RBC Morphology Hypochromasia Anion Gap Estim Creat Clear Calc Estimated GFR POC Glucose Random Glucose Calcium Phosphorus Magnesium Total Bilirubin AST ALT Alkaline Phosphatase Total Protein Albumin Random Vancomycin 06/02/23 06/02/23 06/02/23 05:09 05:09 05:09 MCV MCH MCHC RDW Plt Count MPV Immature Gran % (Auto) Neut % (Auto) Lymph % (Auto) Cancelled Sherman % (Auto) Cancelled Cancelled Eos % (Auto) Cancelled Cancelled Baso % (Auto) Cancelled Lymph # (Auto) Sherman # (Auto) Eos # (Auto) Baso # (Auto) Abs Immat Gran (auto) Absolute Neuts (auto) Absolute Nucleated RBC Nucleated RBC % (auto) Neutrophils % (Manual) Band Neutrophils % Lymphocytes % (Manual) Monocytes % (Manual) Eosinophils % (Manual) Metamyelocytes % Myelocytes % Abs Neuts (Manual) Lymphocytes # (Manual) Monocytes # (Manual) Eosinophils # (Manual) Metamyelocytes # Myelocytes # Dohle Bodies Platelet Estimate Plt Morphology Comment RBC Morphology Hypochromasia Anion Gap Estim Creat Clear Calc Estimated GFR POC Glucose Random Glucose Calcium Phosphorus Magnesium Total Bilirubin AST ALT Alkaline Phosphatase Total Protein Albumin Random Vancomycin 06/02/23 06/02/23 06/02/23 05:09 05:09 05:09 MCV MCH MCHC RDW Plt Count MPV Immature Gran % (Auto) Neut % (Auto) Lymph % (Auto) Sherman % (Auto) Eos % (Auto) Baso % (Auto) Cancelled Lymph # (Auto) Cancelled Cancelled Sherman # (Auto) Cancelled Cancelled Eos # (Auto) Cancelled Baso # (Auto) Abs Immat Gran (auto) Absolute Neuts (auto) Absolute Nucleated RBC Nucleated RBC % (auto) Neutrophils % (Manual) Band Neutrophils % Lymphocytes % (Manual) Monocytes % (Manual) Eosinophils % (Manual) Metamyelocytes % Myelocytes % Abs Neuts (Manual) Lymphocytes # (Manual) Monocytes # (Manual) Eosinophils # (Manual) Metamyelocytes # Myelocytes # Dohle Bodies Platelet Estimate Plt Morphology Comment RBC Morphology Hypochromasia Anion Gap Estim Creat Clear Calc Estimated GFR POC Glucose Random Glucose Calcium Phosphorus Magnesium Total Bilirubin AST ALT Alkaline Phosphatase Total Protein Albumin Random Vancomycin 06/02/23 06/02/23 06/02/23 05:09 05:09 05:09 MCV MCH MCHC RDW Plt Count MPV Immature Gran % (Auto) Neut % (Auto) Lymph % (Auto) Sherman % (Auto) Eos % (Auto) Baso % (Auto) Lymph # (Auto) Sherman # (Auto) Eos # (Auto) Cancelled Baso # (Auto) Cancelled Cancelled Abs Immat Gran (auto) Cancelled Cancelled Absolute Neuts (auto) Cancelled Absolute Nucleated RBC Nucleated RBC % (auto) Neutrophils % (Manual) Band Neutrophils % Lymphocytes % (Manual) Monocytes % (Manual) Eosinophils % (Manual) Metamyelocytes % Myelocytes % Abs Neuts (Manual) Lymphocytes # (Manual) Monocytes # (Manual) Eosinophils # (Manual) Metamyelocytes # Myelocytes # Dohle Bodies Platelet Estimate Plt Morphology Comment RBC Morphology Hypochromasia Anion Gap Estim Creat Clear Calc Estimated GFR POC Glucose Random Glucose Calcium Phosphorus Magnesium Total Bilirubin AST ALT Alkaline Phosphatase Total Protein Albumin Random Vancomycin 06/02/23 06/02/23 06/02/23 05:09 05:09 05:09 MCV MCH MCHC RDW Plt Count MPV Immature Gran % (Auto) Neut % (Auto) Lymph % (Auto) Sherman % (Auto) Eos % (Auto) Baso % (Auto) Lymph # (Auto) Sherman # (Auto) Eos # (Auto) Baso # (Auto) Abs Immat Gran (auto) Absolute Neuts (auto) Cancelled Absolute Nucleated RBC Cancelled 0.030 H Nucleated RBC % (auto) Cancelled 0.2 Neutrophils % (Manual) 65 Band Neutrophils % 15 H Lymphocytes % (Manual) 10 L Monocytes % (Manual) 5 Eosinophils % (Manual) 1 Metamyelocytes % 3 Myelocytes % 1 Abs Neuts (Manual) 14.8 H Lymphocytes # (Manual) 1.9 Monocytes # (Manual) 0.9 Eosinophils # (Manual) 0.2 Metamyelocytes # 0.6 Myelocytes # 0.2 Dohle Bodies PRESENT Platelet Estimate NORMAL Plt Morphology Comment NORMAL RBC Morphology NOTED Hypochromasia 1+ (5-14) Anion Gap 10 L Estim Creat Clear Calc 72.4 Estimated GFR > 60 POC Glucose Random Glucose 148 H Calcium 8.1 L D Phosphorus 2.1 L Magnesium 1.9 Total Bilirubin 0.8 AST 35 H ALT 28 Alkaline Phosphatase 138 H Total Protein 5.0 L Albumin 2.6 L Random Vancomycin 06/02/23 06/02/23 07:25 11:32 MCV MCH MCHC RDW Plt Count MPV Immature Gran % (Auto) Neut % (Auto) Lymph % (Auto) Sherman % (Auto) Eos % (Auto) Baso % (Auto) Lymph # (Auto) Sherman # (Auto) Eos # (Auto) Baso # (Auto) Abs Immat Gran (auto) Absolute Neuts (auto) Absolute Nucleated RBC Nucleated RBC % (auto) Neutrophils % (Manual) Band Neutrophils % Lymphocytes % (Manual) Monocytes % (Manual) Eosinophils % (Manual) Metamyelocytes % Myelocytes % Abs Neuts (Manual) Lymphocytes # (Manual) Monocytes # (Manual) Eosinophils # (Manual) Metamyelocytes # Myelocytes # Dohle Bodies Platelet Estimate Plt Morphology Comment RBC Morphology Hypochromasia Anion Gap Estim Creat Clear Calc Estimated GFR POC Glucose 123 H 148 H Random Glucose Calcium Phosphorus Magnesium Total Bilirubin AST ALT Alkaline Phosphatase Total Protein Albumin Random Vancomycin Assessment and Plan (1) Status post total left knee replacement: Status: Acute (2) Diabetes: Status: Acute (3) Urinary retention: Status: Acute Plan 68 year old female with history of htn, asthma/copd overlap, type 2 diabetes, hld, gerd, admitted to orthopedic surgery for management of OA L knee s/p L TKA with consult placed to hospitalist service for medical management. 1.OA L knee s/p TKA POD 1 -plan per ortho surgery -lightheadedness and nausea improved 2. Colitis; likely diverticulitis -Zosyn giving increased diarrhea; switch to Levaquin and Flagyl -Re scan abdomen -downgrade diet to full liquids 3..Urinary retention (likely secondary to anesthesia/opiates) -continue chronic Ramos overnight -voiding trial in a.m. 4. Pulmonary embolus -no respiratory issues at this time -minimal O2 requirement -continue Eliquis as ordered -wean O2 as tolerated -check 2D echo to evaluate right heart strain 5.Type 2 diabetes -acceptable control on current therapy -lispro correctional scale -adjust as indicated 6.HTN -acceptable control on current therapy -adjust as indicated Requires ongoing hospitalization secondary to the need for IV antibiotics to treat colitis flare. Quality Stroke Does the patient have a stroke diagnosis?: No VTE Prior VTE?: No VTE Risk Level:: Surgical - very high VTE Device Contraindication: N/A - Device Ordered VTE Drug Contraindication: N/A - Med Ordered
[2023-06-02 15:17] VITALS: BP 143/75; PULSE 76; RESP 20; TEMP 36.8; O2SAT 96
[2023-06-02 16:12] VITALS: PULSE 90; O2SAT 85
[2023-06-02 16:18] LABS: Glucose, Whole Blood 212 mg/dL (60-115)
[2023-06-02] MEDS: Insulin Lispro 100 UNIT/ML 3 ML VIAL SUBCUT (16:31)
[2023-06-02 20:00] VITALS: BP 150/54; PULSE 75; RESP 18; TEMP 36.2; O2SAT 98
[2023-06-02] MEDS: cloNIDine HCL 0.2 MG TABLET PO (20:02)
[2023-06-02 20:41] LABS: Glucose, Whole Blood 120 mg/dL (60-115)
[2023-06-02] MEDS: Insulin Glargine,Hum.rec.anlog 100 UNIT/ML 10 ML VIAL 10 UNIT SUBCUT (21:03)
[2023-06-03] MEDS: Acetaminophen 325 MG TABLET 975 MG PO (02:11)
[2023-06-03] MEDS: ondansetron HCL 4 MG/2 ML VIAL IVPUSH ×2 (02:12→16:39)
[2023-06-03] MEDS: Loperamide HCl 2 MG CAPSULE 4 MG PO ×2 (02:12→14:14)
[2023-06-03] MEDS: hydrOXYzine HCL 10 MG TABLET PO (02:12)
[2023-06-03] MEDS: Metoprolol Tartrate 50 MG TABLET PO ×4 (02:15→20:20)
[2023-06-03 04:00] VITALS: BP 149/69; PULSE 73; RESP 16; TEMP 36.5; O2SAT 96
[2023-06-03] MEDS: metroNIDAZOLE/NS 500 MG/100 ML PIGGYBACK 100 MG IV ×3 (04:26→20:20)
[2023-06-03] MEDS: Omeprazole 40 MG CAPSULE.DR PO (05:30)
[2023-06-03] MEDS: Levothyroxine Sodium 75 MCG TABLET PO (05:30)
[2023-06-03 06:52] LABS: Hematocrit 32.8 % (37.0-47.0); Hemoglobin 10.7 g/dl (12.0-16.0); Mean Corpuscular HGB Conc 32.6 g/dl (31.0-35.0); Mean Corpuscular Hemoglobin 27.2 pg (27.0-33.0); Mean Corpuscular Volume 83.2 fL (80.0-98.0); Mean Platelet Volume 10.3 fL (9.4-12.3); NRBC Pct Auto 0.1 /100WBC (0.0-0.2); Platelet Count 236 X10*3/uL (160-400); Red Blood Count 3.94 X10*6/uL (4.20-5.50); Red Cell Distribution Width 14.9 % (11.0-16.0)
[2023-06-03 06:53] LABS: WBC ABN SCTR FOR CBC 1; White Blood Count 20.2 X10*3/uL (4.8-10.8)
--- NOTE | 2023-06-03 07:00 | CA_ITS ---
Transthoracic Echocardiogram Amended Patient (Last, First, Middle): Lois Dalton, Gender: Female Date of : 1955 Age: 68 Procedure Date: 06/03/2023 Procedure Type: Transthoracic Echocardiogram Location: S3E Height: 157.48 cm Weight: 101.61 kg BSA: 2.01 m2 Heart Rate: bpm BP: 154 / 69 mmHg French Folder: Referring MD: Wagner Morgan DO Symptoms: PE Study Quality: Adequate ECG Rhythm: Sinus Conclusions: - The left ventricular systolic function is normal. The calculated ejection fraction is 67% by biplane method. - No obvious valvular pathology seen on this study. Findings Left Ventricle Normal left ventricular cavity size. The left ventricular systolic function is normal. The calculated ejection fraction is 67% by biplane method. There is no evidence of regional wall motion abnormalities. Diastolic function is normal for age. There is mild septal asymmetric hypertrophy. Right Ventricle Normal right ventricular cavity size and systolic function. Atria Both atria are normal in size. Aortic Valve There is a normal trileaflet aortic valve. There is no aortic valve stenosis. There is no aortic valve regurgitation. Mitral Valve The mitral valve appears normal. There is no mitral valve regurgitation. There is no mitral valve stenosis. Pulmonic Valve The pulmonic valve is likely normal. Tricuspid Valve There is trace tricuspid valve regurgitation. There is no evidence of pulmonary hypertension. Great Vessels The asc aorta is normal in size. Venous The inferior vena cava is normal in size and collapses greater than 50% with inspiration. Pericardium/Pleural There is no evidence of pericardial effusion. Prior Study Comparison No significant change compared to prior study dated: 08/13/2017. Recommendations, Care & Conclusions No obvious valvular pathology seen on this study. Measurements 2D Linear Measurements IVSd: 1.15 0.6-0.9/0.6-1.0 cm LVIDd: 4.50 3.9-5.3/4.2-5.9 cm LVIDd Index: 2.24 2.4-3.2/2.2-3.1 cm/m2 LVIDs: 2.53 2.0-3.6 cm LVPWd: 0.96 0.7-1.1 cm Ao Root: 3.00 2.1-3.5 cm LA Diam: 4.00 2.7-3.8/3.0-4.0 cm LAIDs Index: 1.99 1.5-2.3 cm/m2 LV Mass: 205.31 67-162/88-224 g LV Mass Index: 102.15 43-95/49-115 g/m2 LVOT Diam: 2.20 3.0+(-)1.3 cm 2D Volumes LA Vol: 28.60 2D Systolic Function EF 4C: 68.70 >55% EF 2C: 60.20 >55% EF BiP: 67.40 >55% Mitral Valve MV Pk E: 1.17 MV PK A: 0.97 MV Decel Time: 117.00 E/A: 1.20 E'Lateral: 7.51 E'Medial: 6.53 E/E' Med: 17.90 E/E' Lat: 15.60 PHT: 34.00 MVA PHT: 6.47 Decel [place]: 9.99 Aortic Valve AoV Pk Jaquan: 1.42 AoV Mn Jaquan: 0.88 AoV VTI: 0.32 AoV Pk Grad: 8.00 Aov Mn Grad: 4.00 VIVIENNE Cont.VTI: 2.65 LVOT LVOT Pk Jaquan: 0.93 LVOT Mn Jaquan: 0.55 LVOT VTI: 0.22 LVOT Pk Grad: 3.00 LVOT Mn Grad: 1.00 LVOT Diam: 2.20 LVOT Area: 3.80 Diastolic Function MV Pk E: 1.17 MV Pk A: 0.97 E/A: 1.20 E'Medial: 6.53 E/E' Med: 17.90 E' Laterial: 7.51 E/E' Lat: 15.60 Right Ventricle TAPSE (mm): 28.00 TVS' Jaquan: 19.00 Tricuspid Valve TR Pk Jaquan: 1.93 TR Pk Grad: 15.00 RA Press: 3.00 RVSP: 18.00 Great Vessels Aorta Ao Root-2D: 3.00 2.0-3.7 cm Ao Asc: 2.90 2.1-3.4 cm Pulmonary Valve PV Pk Jaquan: 0.95 Peak PV Grad: 4.00 Updated in Other Vendor System with Status of Final Luis Felipe Douglas MD electronically signed on 06/03/2023 3:56:34 PM with status of Final
[2023-06-03] MEDS: Enoxaparin Sodium 100 MG/ML SYRINGE 90 MG SUBCUT (07:05)
[2023-06-03] MEDS: Venlafaxine HCl ER 150 MG CAP.ER.24H PO (07:05)
[2023-06-03] MEDS: Gabapentin 100 MG CAPSULE PO ×3 (07:05→20:20)
[2023-06-03] MEDS: lisinopriL 40 MG TABLET PO (07:05)
[2023-06-03] MEDS: Lidocaine 4 % Patch ADH..PATCH 2 PATCH TRANSDERMA (07:05)
[2023-06-03 07:14] LABS: Anion Gap 12 (12-20); Blood Urea Nitrogen 10 mg/dL (9-16); Calcium 8.1 mg/dL (8.4-10.2); Carbon Dioxide 25 mmol/L (22-29); Chloride 106 mmol/L (96-108); Creatinine Clr Calc Pharmacy 82.5; Estimated Glomerular Filt Rate > 60; Glucose Random 133 mg/dL (60-115); Potassium 3.3 mmol/L (3.3-5.1); Sodium 140 mmol/L (135-145)
[2023-06-03 07:28] VITALS: BP 168/77; PULSE 79; RESP 16; TEMP 36.2; O2SAT 96
[2023-06-03 07:40] LABS: Glucose, Whole Blood 125 mg/dL (60-115)
--- NOTE | 2023-06-03 07:52 | P.PNOP_ITS ---
Subjective Subjective Date of Service: 06/03/23 Principal diagnosis: left TKA Interval history: POD8 s/p LT TKA found to have bilat PE She is resting in bed this morning left knee pain is managed Complains of abd pain Physical Exam Vital Signs: Vital Signs: Last Vital Signs Temp 97.2 F 06/03/23 07:28 Pulse 79 06/03/23 07:28 Resp 16 06/03/23 07:28 BP 168/77 H 06/03/23 07:28 Pulse Ox 96 06/03/23 07:28 O2 Del Method Nasal Cannula 06/03/23 07:28 O2 Flow Rate 2.0 06/03/23 07:28 FiO2 93 05/29/23 19:00 Oxygen Flow Rate 3 05/29/23 04:00 BMI result Body Mass Index 41.1 Const: General: cooperative, healthy appearing and no acute distress Eyes: Sclerae: sclerae normal EOM: EOMs intact bilaterally Neck: Neck: Yes no lymphadenopathy, Yes trachea midline and Yes supple Resp: Effort & Inspection: normal respiratory effort and able to speak in complete sentences Auscultation: clear to auscultation bilaterally Cardio: Rate: regular rate Rhythm: regular rhythm Heart sounds: no gallops, no murmurs and no rubs Peripheral pulses: Peripheral pulses 2+ throughout GI: Palpation (GI): Soft to palpation Auscultation: normal bowel sounds Skin: Lesions: no lesions Rashes: no rashes Extrem: Other: left knee bandage clean dry and intact. [place] intact. No erythema or joint effusion. Calf supple nontender. Neurovascularly intact. General: Yes no pedal edema, No clubbing and No cyanosis Procedures Date of Service Date of Service: 06/03/23 Progress Note: A&P Assessment and plan (1) Colitis, infectious: Status: Acute (2) Status post knee replacement: Status: Acute (3) Pulmonary embolism: Status: Acute Assessment and Plan: POD8 s/p left TKA Bilateral PE Diverticulitis with increased white count PT for LTKA - wbat encouraged out of bed to chair and walking d/c when medically stable (4) Diabetes: Status: Acute (5) Urinary retention: Status: Acute (6) BMI 35.0-35.9,adult: Status: Acute (7) Status post total left knee replacement: Status: Acute Time Spent With Patient Time: Total time managing care of this patient today ____ minutes. Quality Stroke Does the patient have a stroke diagnosis?: No VTE Prior VTE?: No VTE Risk Level:: Surgical - very high VTE Device Contraindication: N/A - Device Ordered VTE Drug Contraindication: N/A - Med Ordered
[2023-06-03 08:14] LABS: Atypical Lymph Absolute Manual 0.6 x10*3/uL; Atypical Lymphs Percent Manual 3 % (0-6); Band Neutrophils Percent 12 % (3-5); Eosinophils Absolute Manual 0.8 X10*3/uL (0.0-0.4); Eosinophils Percent Manual 4 % (0-4); Lymphocytes Percent Manual 15 % (20-40); Metamyelocytes Absolute 1.6 X10*3/uL; Metamyelocytes Percent 8 %; Monocytes Absolute Manual 1.4 X10*3/uL (0.1-1.2); Monocytes Percent Manual 7 % (2-11); Neutrophils Absolute Manual 12.7 X10*3/uL (2.0-8.3); Neutrophils Percent Manual 51 % (45-73)
[2023-06-03 08:17] LABS: Hypochromasia 1+ (5-14) /OIF; Platelet Estimate NORMAL (NORMAL); Platelet Morphology Comment NORMAL; Polychromasia 1+ (0-2) /OIF; RBC Morphology NOTED
--- NOTE | 2023-06-03 09:42 | W.PM.OPN ---
Operative Note Operative Note Date of Service: 05/26/23 Narrative: Date of Service: 05/26/23 Pre-op diagnosis: Left knee OA Post-op diagnosis: same Procedure: Left TKA Implants: [place] [employer] 05/16/PS/29a cemented Surgeon: Vijay Weems MD Anesthesia: MAC, regional and spinal Was an Instrument Person used for this Procedure?: Yes Instrument Person: Catarino Nava Estimated blood loss (mL): 25 Tourniquet time (min): 43 IV fluids (mL): 850 Pathology: other Condition: stable Disposition: PACU Procedure in detail: The patient was brought to the operating room and prepped and draped in standard sterile fashion. A time-out was called to identify proper site proper procedure proper surgeon and IV antibiotics were administered. 1 g of IV TXA was administered. I began by making a midline incision to the retinaculum and performed a medial parapatellar arthrotomy. The patella was translated laterally and the knee was flexed up. The medial compartment was eburnated. I performed a small medial peel and resected the infrapatellar fat pad. Central's line was then used to drill my intramedullary femoral guide and my distal femur cut of 10 mm was made in 5 degrees of valgus while protecting the soft tissues. I then measured a #3 femur and placed my cutting guide and made my anterior posterior and chamfer cuts protecting the soft tissues at all times. I then made my box but removing the PCL. Once I was satisfied with my cuts I turned my attention to the tibia. I removed the meniscus medially and laterally and , using an external cutting guide, in line with the tibial crest and the third ray, I made my distal tibial cut in 0 deg slope of while protecting the posterior soft tissues at all times. An extension block was used to confirm appropriate amount of bony resection. I then sized a #3 tibia and once I was satisfied that there was complete tibial coverage I placed my trial and with the trial femur in place took the knee through range of motion. I was satisfied with the extension and flexion as well as the balance at 0, 30 and 90 degrees. I then turned my attention to the patella where I removed 1 cm from the undersurface of the patella and then trialed a 29a patellar button. Again the knee was taken through range of motion I was satisfied with the tracking. I then prepared the tibia with a drill and punch. A femoral bone plug was placed and the knee was irrigated copiously. I then cemented the patella, tibia and femur in standard fashion. Axial compression adn a clamp were used while the cement dried. Once the cement was hard on the back table all excess cement was removed and I trialed different inserts until I selected a #9 insert. The final insert was placed and local TXA was administered. A Werewolf cautery wand was used to maintain hemostasis over the capsule and meniscal beds, the gutters and peripatellar soft tissues. The knee was then closed with a running Quill suture, a 3 0 Vicryl and fer on the skin. Patient was then placed in sterile dressing and brought to recovery room in stable condition there were no known complications.
[2023-06-03] MEDS: Lactated Ringers 1,000 ML 125 ML IVCONT ×2 (10:40→20:23)
--- NOTE | 2023-06-03 11:02 | P.CNGI_ITS ---
History of Present Illness Data of Consult Service Date: 06/03/23 Primary Care Provider: Breanna Zamudio NP HPI Reason for consult: colitis 68 year old female with hx of T2DM (on Insulin), hypothyroidism, COPD, hypertension, hyperlipidemia, vitamin D deficiency, hyperparathyroidism and obesity who I am seeing for assessment for colitis Patient was initially admitted about 1 week ago for s/p L TKA. She had issues with urine retention and also had syncopal episodes with low blood pressure requiring narcan and fluids, ICU management with discovery of b/l PTE. She had noted diarrhea since surgery and worsening left sided constant aching pain 10/10 worse with eating food and relieved by taking morphine. she has some nausea, but denies vomiting. Stools are loose with small amounts of blood seen. Appetite remains poor, knee is healing nicely. No dysuria, hematuria, urgency. No fevers or chills. denies sob, chest pain, syncope Ct imaging x2 over last few days --latest one with desc and sigmoid colo mural thickening, no diverticulitis on fluid collections noted. Review of Systems 2 Review of Systems: Constitutional : No Weight loss, No Fever, No Chills ENT/Mouth : No sore throat, No Rhinorrhea Eyes: No Swelling, No Redness Cardiovascular : No Chest Pain, No SOB, No Edema Respiratory : No Cough, No Sputum, No Wheezing Gastrointestinal : see HPI Genitourinary : NO Dysuria, No Urinary Frequency, No Hematuria, No Urgency Musculoskeletal : + joint pain, No Myalgias, No Joint Swelling Skin : No Skin Lesions, No rash Neuro : No Weakness, No Numbness, No Dizziness, No Headache Psych : No Anxiety/Panic, No Depression Heme/Lymph: No Bruising, No Lymphadenopathy Endocrine : No Polyuria, No Polydipsia All other systems reviewed and are negative. [facility] Past Medical History Medical History (Updated 06/03/23 @ 15:26 by Ludmila Walker MD) Colitis, infectious Chronic restrictive lung disease Obesity (BMI 30.0-34.9) Cough due to SHANELLE inhibitor Eosinophilia Asthma HTN (hypertension) T2DM (type 2 diabetes mellitus) Erosive gastritis Leg edema, left Hyperparathyroidism Vitamin D deficiency Multinodular thyroid Thyroid nodule Skin lesion of chest wall Type 2 diabetes mellitus with diabetic polyneuropathy Fibromyalgia Depression with anxiety Cervical cancer Osteoarthritis of left knee Osteopenia GERD (gastroesophageal reflux disease) Diabetes mellitus with hyperglycemia Meir's disease Other specified acquired hypothyroidism Hyperlipidemia LDL goal <100 Essential hypertension Vitamin B12 deficiency Other obesity due to excess calories BMI 35.0-35.9,adult Family History Family History Father CVD (cardiovascular disease) Diabetes mellitus Stroke Mother Stroke Diabetes mellitus Breast cancer Hyperthyroidism Surgical History Surgical History (Updated 06/01/23 @ 10:52 by Regis Villalta MD) Hx of elbow surgery Hx of hand surgery Hx of arthroscopic knee surgery History of cholecystectomy History of arthroplasty of right knee Hx of hysterectomy Hx of foot surgery History of bilateral carpal tunnel release Hx of bilateral oophorectomy History of esophagogastroduodenoscopy (EGD) Hx of colonoscopy Social History Social History Household Members: Spouse Housing: House Housing Other:: 2nd floor-2 family house Are you a primary pet care associate to a significant other at home: No Do you presently have visiting nurse or other home services: Yes ([employer]) Alcohol intake: never Comment: continues with camera Patient Tobacco Use Status: Never used Tobacco service: No 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al status: disabled 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 Allergies Allergy/AdvReac Type Severity Reaction Status Date / Time hazelnut Allergy Mild per Verified 05/26/23 07:56 allergy skin test peanut Allergy Mild per Verified 05/26/23 07:56 allergy skin test Active Medications: Current Medications Acetaminophen (Acetaminophen 325 Mg Tablet) 975 mg PO Q6H PRN PRN Reason: Pain, Moderate(Pain Scale 4-6) Last Admin: 06/03/23 02:11 Dose: 975 mg Albuterol Sulfate (Albuterol Sulfate 90 Mcg 8 Gm Inhaler) 2 puff INHALE RQ4H PRN PRN Reason: Wheezing Albuterol/Ipratropium (Albuterol/Iprat 2.5/0.5mg 3 Ml Ampul.Neb) 3 ml INHALE RQ4H WHILE AWAKE PRN PRN Reason: Wheezing Clonidine HCl (Clonidine Hcl 0.2 Mg Tablet) 0.2 mg PO BEDTIME [facility]; Protocol Last Admin: 06/02/23 20:02 Dose: 0.2 mg Dextrose (Dextrose 50 % 25 Gm/50 Ml Syringe) 25 gm IVPUSH Q15M PRN; Protocol PRN Reason: per Hypoglycemia Standing Ord. Enoxaparin Sodium (Enoxaparin Sodium 100 Mg/Ml Syringe) 90 mg 1 mg/kg (90 mg) SUBCUT Q12H [facility] Last Admin: 06/03/23 07:05 Dose: 90 mg Gabapentin (Gabapentin 100 Mg Capsule) 100 mg PO TID [facility] Last Admin: 06/03/23 07:05 Dose: 100 mg Glucose (Glucose Gel 15 Gm Gel..Gram.) 15 gm PO Q15M PRN; Protocol PRN Reason: per Hypoglycemia Standing Ord. Hydroxyzine HCl (Hydroxyzine Hcl 10 Mg Tablet) 10 mg PO Q8H PRN PRN Reason: Anxiety Last Admin: 06/03/23 02:12 Dose: 10 mg Metronidazole (Flagyl) 500 mg in 100 mls @ 100 mls/hr IV Q8H [facility] Last Infusion: 06/03/23 05:31 Dose: Infused Levofloxacin (Levaquin) 750 mg in 150 mls @ 100 mls/hr IV Q24H [facility] Last Infusion: 06/02/23 16:46 Dose: Infused Lactated Ringer's (Lr) 1,000 mls @ 125 mls/hr IVCONT .Q8H [facility] Last Admin: 06/03/23 10:40 Dose: 125 mls/hr Insulin Glargine (Insulin Glargine,Hum.Rec.Anlog 100 Unit/Ml 10 Ml Vial) 10 unit SUBCUT BEDTIME [facility] Last Admin: 06/02/23 21:03 Dose: 10 unit Insulin Human Lispro (Insulin Lispro 100 Unit/Ml 3 Ml Vial) 0 unit SUBCUT QIDACHS [facility]; Protocol Last Admin: 06/03/23 07:44 Dose: Not Given Levothyroxine Sodium (Levothyroxine Sodium 75 Mcg Tablet) 75 mcg PO DAILY@0600 [facility] Last Admin: 06/03/23 05:30 Dose: 75 mcg Lidocaine (Lidocaine 4 % Patch Adh..Patch) 2 patch TRANSDERMA DAILY [facility]; Protocol Last Admin: 06/03/23 07:05 Dose: 2 patch Lisinopril (Lisinopril 40 Mg Tablet) 40 mg PO DAILY [facility]; Protocol Last Admin: 06/03/23 07:05 Dose: 40 mg Loperamide HCl (Loperamide Hcl 2 Mg Capsule) 4 mg PO Q6H PRN PRN Reason: Diarrhea Last Admin: 06/03/23 02:12 Dose: 4 mg Metoprolol Tartrate (Metoprolol Tartrate 50 Mg Tablet) 50 mg PO Q6H [facility]; Protocol Last Admin: 06/03/23 07:05 Dose: 50 mg Omeprazole (Omeprazole 40 Mg Capsule.Dr) 40 mg PO DAILY@0630 [facility] Last Admin: 06/03/23 05:30 Dose: 40 mg Ondansetron HCl (Ondansetron Hcl 4 Mg/2 Ml Vial) 4 mg IVPUSH Q6H PRN PRN Reason: Nausea and Vomiting Last Admin: 06/03/23 02:12 Dose: 4 mg Venlafaxine HCl (Venlafaxine Hcl Er 150 Mg Cap.Er.24h) 150 mg PO DAILY [facility] Last Admin: 06/03/23 07:05 Dose: 150 mg Home Medications Medication Instructions Recorded Confirmed Last Taken Type hydrochlorothiazide 50 mg tablet 50 mg PO DAILY 02/29/20 05/21/23 05/25/23 History blood sugar diagnostic #10 ea 03/19/20 05/21/23 02/26/23 History hydroxyzine HCl 50 mg tablet 50 mg PO Q8H PRN anxiety 03/19/20 05/21/23 05/25/23 History lisinopril 40 mg tablet 40 mg PO DAILY 03/19/20 05/21/23 05/25/23 History metoprolol succinate 200 mg 200 mg PO DAILY 07/09/20 05/21/23 05/26/23 01:00 History tablet,extended release 24 hr trazodone 150 mg tablet 300 mg PO BEDTIME 07/09/20 05/21/23 05/25/23 History lancets 33 gauge (OneTouch Delica #100 ea 04/17/21 05/21/23 02/26/23 History Plus Lancet) verapamil 180 mg tablet,extended 360 mg PO DAILY 10/17/21 05/27/23 05/26/23 01:00 History release albuterol sulfate 0.63 mg/3 mL 1 amp inhalation Q4H PRN wheezing 03/24/22 05/21/23 Unknown History solution for nebulization levothyroxine 75 mcg tablet 75 mcg PO DAILY@0600 03/24/22 05/21/23 05/26/23 01:00 History multivitamin-ferrous 1 tab PO DAILY 03/24/22 05/21/23 05/25/23 History fumarate-folic acid 18 mg-400 mcg tablet (Certavite-Antioxidant) clonidine HCl 0.1 mg tablet 0.2 mg PO BEDTIME 02/28/23 05/21/23 05/25/23 History cyanocobalamin (vitamin B-12) 1,000 mcg PO DAILY 02/28/23 05/21/23 05/25/23 History 1,000 mcg sublingual tablet dexlansoprazole 60 mg 60 mg PO DAILY@0630 02/28/23 05/21/23 05/26/23 01:00 History capsule,biphase delayed release empagliflozin 25 mg tablet 25 mg PO QAM 02/28/23 05/21/23 05/11/23 History (Jardiance) insulin glargine 100 unit/mL (3 34 unit subcut BEDTIME 02/28/23 05/21/23 05/25/23 History mL) subcutaneous pen (Lantus Solostar U-100 Insulin) pioglitazone 15 mg tablet 15 mg PO QAM 02/28/23 05/21/23 05/25/23 History semaglutide 0.25 mg or 0.5 mg (2 0.5 mg subcut MO@0900 02/28/23 05/21/23 05/11/23 History mg/3 mL) subcutaneous pen injector (Ozempic) venlafaxine 150 mg 150 mg PO DAILY 05/20/23 05/27/23 05/25/23 History capsule,extended release 24 hr fluticasone propionate 50 1 spray intranasal DAILY 05/25/23 05/26/23 05/25/23 History mcg/actuation nasal spray,suspension furosemide 40 mg tablet 40 mg PO DAILY 05/25/23 05/27/23 05/25/23 History fluticasone fur. 200 mcg-umeclid 1 ea inhalation DAILY 05/26/23 05/26/23 05/26/23 01:00 History 62.5 mcg-vilant 25 mcg inhalat.powder (Trelegy Ellipta) psyllium husk 3 gram/5.4 gram oral 3 g PO DAILY 05/27/23 05/27/23 Unknown History powder (Reguloid (psyllium husk)) Physical Exam 2 Vital Signs: Vital Signs: Last Vital Signs Temp 97.2 F 06/03/23 07:28 Pulse 79 06/03/23 07:28 Resp 16 06/03/23 07:28 BP 168/77 H 06/03/23 07:28 Pulse Ox 96 06/03/23 07:28 O2 Del Method Nasal Cannula 06/03/23 07:28 O2 Flow Rate 2.0 06/03/23 07:28 FiO2 93 05/29/23 19:00 Oxygen Flow Rate 3 05/29/23 04:00 BMI result Body Mass Index 41.1 EXAM: GENERAL: The patient is obese, appears relaxed VITAL SIGNS:see workflow HEENT: Nonicteric sclerae, PERRLA, EOMI. Oropharynx clear. Moist mucous membranes. Conjunctivae appear well perfused. No thyroid mass. CHEST: Chest wall is nontender. HEART: Regular rate and rhythm without murmurs. LUNGS: Clear to auscultation bilaterally. ABDOMEN: Soft, positive bowel sounds, tender LLQ and mid abdomen, no organomegaly.no flank tenderness SKIN: No rash, no excessive bruising, petechiae, or purpura. NEUROLOGIC: Cranial nerves II-XII intact without motor/sensory deficit. Psych: normal affect Results Labs 06/03/23 05:43 06/03/23 05:43 Labs: Short CBC 06/03/23 Range/Units 05:43 WBC 20.2 H (4.8-10.8) X10*3/uL Hgb 10.7 L (12.0-16.0) g/dl Hct 32.8 L (37.0-47.0) % Plt Count 236 (160-400) X10*3/uL BMP 06/03/23 05:43 Sodium 140 Potassium 3.3 Chloride 106 Carbon Dioxide 25 BUN 10 Creatinine 0.72 Calcium 8.1 L Microbiology Microbiology Results: Microbiology 05/29/23 06:38 Blood - Venous Blood Culture - Final No growth after 5 days. 05/29/23 05:45 Blood - Venous Blood Culture - Final No growth after 5 days. 05/27/23 13:35 Urine Catheterized - Ramos Catheter Urine Culture - Final No growth. Imaging CT scan - abdomen: Attestation: I personally reviewed and interpreted this imaging study as follows: (renal cysts, thickening of descending and sigmoid colon) Assessment and Plan (1) Ischemic colitis: Status: Acute Plan 1/ Clinical presentation and history as well as CT findings would seem to most likely fit ischemic colitis beatrice given her background hx of HTn, DM. c diff was negative PLAN: 1/ Monitor lactate 2/ surgical consult in case of toxic megacolon, or failure to improve, WCC keeps rising inspite of antibiotics 3/ unprepped sigmoidoscopy tomorrow to confirm ischemic colitis diagnosis vs other etiology 4/ avoid over aggressive BP control 5/ replenish lytes Procedures Date of Service Date of Service: 06/03/23
[2023-06-03 11:27] LABS: Glucose, Whole Blood 133 mg/dL (60-115)
--- NOTE | 2023-06-03 11:59 | HO.PM.IMPN ---
Subjective Subjective Date of Service: 06/03/23 Interval History: Essentially no improvement overnight. White count elevated slightly over yesterday to 20,000. Continues with intermittent diarrhea somewhat improved with antibiotic change Review of Systems Denies chest pain Denies shortness of breath Denies nausea vomiting diarrhea Denies fever chills Physical Exam Vital Signs: Vital Signs: Last Vital Signs Temp 97.2 F 06/03/23 07:28 Pulse 79 06/03/23 07:28 Resp 16 06/03/23 07:28 BP 168/77 H 06/03/23 07:28 Pulse Ox 96 06/03/23 07:28 O2 Del Method Nasal Cannula 06/03/23 07:28 O2 Flow Rate 2.0 06/03/23 07:28 FiO2 93 05/29/23 19:00 Oxygen Flow Rate 3 05/29/23 04:00 BMI result Body Mass Index 41.1 Const: Other: Awake alert oriented x3 no acute distress Resp: Other: Clear to auscultation bilaterally no rales rhonchi or wheezes Cardio: Other: No S4; positive S1-S2; no S3 murmurs rubs or gallops GI: Other: Tender diffusely across lower abdomen without rebound Extrem: Other: Bilateral edema noted. Worse on op-site extremity Objective Data Active Medications Acetaminophen (Acetaminophen 325 Mg Tablet) 975 mg PO Q6H PRN PRN Reason: Pain, Moderate(Pain Scale 4-6) Last Admin: 06/03/23 02:11 Dose: 975 mg Documented By: APRIL Albuterol Sulfate (Albuterol Sulfate 90 Mcg 8 Gm Inhaler) 2 puff INHALE RQ4H PRN PRN Reason: Wheezing Albuterol/Ipratropium (Albuterol/Iprat 2.5/0.5mg 3 Ml Ampul.Neb) 3 ml INHALE RQ4H WHILE AWAKE PRN PRN Reason: Wheezing Clonidine HCl (Clonidine Hcl 0.2 Mg Tablet) 0.2 mg PO BEDTIME [facility]; Protocol Last Admin: 06/02/23 20:02 Dose: 0.2 mg Documented By: APRIL Dextrose (Dextrose 50 % 25 Gm/50 Ml Syringe) 25 gm IVPUSH Q15M PRN; Protocol PRN Reason: per Hypoglycemia Standing Ord. Enoxaparin Sodium (Enoxaparin Sodium 100 Mg/Ml Syringe) 90 mg 1 mg/kg (90 mg) SUBCUT Q12H [facility] Last Admin: 06/03/23 07:05 Dose: 90 mg Documented By: DAVE Gabapentin (Gabapentin 100 Mg Capsule) 100 mg PO TID [facility] Last Admin: 06/03/23 07:05 Dose: 100 mg Documented By: DAVE Glucose (Glucose Gel 15 Gm Gel..Gram.) 15 gm PO Q15M PRN; Protocol PRN Reason: per Hypoglycemia Standing Ord. Hydroxyzine HCl (Hydroxyzine Hcl 10 Mg Tablet) 10 mg PO Q8H PRN PRN Reason: Anxiety Last Admin: 06/03/23 02:12 Dose: 10 mg Documented By: APRIL Metronidazole (Flagyl) 500 mg in 100 mls @ 100 mls/hr IV Q8H [facility] Last Admin: 06/03/23 11:49 Dose: 100 mls/hr Documented By: DAVE Levofloxacin (Levaquin) 750 mg in 150 mls @ 100 mls/hr IV Q24H [facility] Last Infusion: 06/02/23 16:46 Dose: Infused Documented By: ELISE Lactated Ringer's (Lr) 1,000 mls @ 125 mls/hr IVCONT .Q8H [facility] Last Admin: 06/03/23 10:40 Dose: 125 mls/hr Documented By: DAVE Insulin Glargine (Insulin Glargine,Hum.Rec.Anlog 100 Unit/Ml 10 Ml Vial) 10 unit SUBCUT BEDTIME [facility] Last Admin: 06/02/23 21:03 Dose: 10 unit Documented By: APRIL Insulin Human Lispro (Insulin Lispro 100 Unit/Ml 3 Ml Vial) 0 unit SUBCUT QIDACHS [facility]; Protocol Last Admin: 06/03/23 11:44 Dose: Not Given Documented By: DAVE Non-Admin Reason: No Insulin Coverage Levothyroxine Sodium (Levothyroxine Sodium 75 Mcg Tablet) 75 mcg PO DAILY@0600 [facility] Last Admin: 06/03/23 05:30 Dose: 75 mcg Documented By: APRIL Lidocaine (Lidocaine 4 % Patch Adh..Patch) 2 patch TRANSDERMA DAILY [facility]; Protocol Last Admin: 06/03/23 07:05 Dose: 2 patch Documented By: DAVE Lisinopril (Lisinopril 40 Mg Tablet) 40 mg PO DAILY [facility]; Protocol Last Admin: 06/03/23 07:05 Dose: 40 mg Documented By: DAVE Loperamide HCl (Loperamide Hcl 2 Mg Capsule) 4 mg PO Q6H PRN PRN Reason: Diarrhea Last Admin: 06/03/23 02:12 Dose: 4 mg Documented By: APRIL Metoprolol Tartrate (Metoprolol Tartrate 50 Mg Tablet) 50 mg PO Q6H [facility]; Protocol Last Admin: 06/03/23 07:05 Dose: 50 mg Documented By: DAVE Omeprazole (Omeprazole 40 Mg Capsule.Dr) 40 mg PO DAILY@0630 [facility] Last Admin: 06/03/23 05:30 Dose: 40 mg Documented By: APRIL Ondansetron HCl (Ondansetron Hcl 4 Mg/2 Ml Vial) 4 mg IVPUSH Q6H PRN PRN Reason: Nausea and Vomiting Last Admin: 06/03/23 02:12 Dose: 4 mg Documented By: APRIL Venlafaxine HCl (Venlafaxine Hcl Er 150 Mg Cap.Er.24h) 150 mg PO DAILY [facility] Last Admin: 06/03/23 07:05 Dose: 150 mg Documented By: DAVE Labs 06/03/23 05:43 06/03/23 05:43 Labs: Laboratory Results - last 24 hr 06/02/23 06/02/23 06/03/23 16:12 20:30 05:43 MCV 83.2 MCH 27.2 MCHC 32.6 RDW 14.9 Plt Count 236 MPV 10.3 Immature Gran % (Auto) Cancelled Neut % (Auto) Cancelled Lymph % (Auto) Cancelled Amador % (Auto) Cancelled Eos % (Auto) Cancelled Baso % (Auto) Cancelled Lymph # (Auto) Cancelled [place] # (Auto) Cancelled Eos # (Auto) Cancelled Baso # (Auto) Cancelled Abs Immat Gran (auto) Cancelled Absolute Neuts (auto) Cancelled Absolute Nucleated RBC 0.030 H Nucleated RBC % (auto) 0.1 Neutrophils % (Manual) 51 Band Neutrophils % 12 H Lymphocytes % (Manual) 15 L Atypical Lymphs % (Man) 3 Monocytes % (Manual) 7 Eosinophils % (Manual) 4 Metamyelocytes % 8 Abs Neuts (Manual) 12.7 H Lymphocytes # (Manual) 3.0 Atyp Lymphs # (Manual) 0.6 Monocytes # (Manual) 1.4 H Eosinophils # (Manual) 0.8 H Metamyelocytes # 1.6 Platelet Estimate NORMAL Plt Morphology Comment NORMAL RBC Morphology NOTED Polychromasia 1+ (0-2) Hypochromasia 1+ (5-14) Anion Gap 12 Estim Creat Clear Calc 82.5 Estimated GFR > 60 POC Glucose 212 H 120 H Random Glucose 133 H Calcium 8.1 L 06/03/23 06/03/23 07:33 11:23 MCV MCH MCHC RDW Plt Count MPV Immature Gran % (Auto) Neut % (Auto) Lymph % (Auto) Amador % (Auto) Eos % (Auto) Baso % (Auto) Lymph # (Auto) [place] # (Auto) Eos # (Auto) Baso # (Auto) Abs Immat Gran (auto) Absolute Neuts (auto) Absolute Nucleated RBC Nucleated RBC % (auto) Neutrophils % (Manual) Band Neutrophils % Lymphocytes % (Manual) Atypical Lymphs % (Man) Monocytes % (Manual) Eosinophils % (Manual) Metamyelocytes % Abs Neuts (Manual) Lymphocytes # (Manual) Atyp Lymphs # (Manual) Monocytes # (Manual) Eosinophils # (Manual) Metamyelocytes # Platelet Estimate Plt Morphology Comment RBC Morphology Polychromasia Hypochromasia Anion Gap Estim Creat Clear Calc Estimated GFR POC Glucose 125 H 133 H Random Glucose Calcium Microbiology Microbiology Results: Microbiology 05/29/23 06:38 Blood Culture - Final Blood - Venous No growth after 5 days. 05/29/23 05:45 Blood Culture - Final Blood - Venous No growth after 5 days. Assessment and Plan (1) Status post knee replacement: Status: Acute (2) Colitis, infectious: Status: Acute Plan 68 year old female with history of htn, asthma/copd overlap, type 2 diabetes, hld, gerd, admitted to orthopedic surgery for management of OA L knee s/p L TKA with consult placed to hospitalist service for medical management. 1.OA L knee s/p TKA POD 1 -plan per ortho surgery -lightheadedness and nausea improved 2. Colitis; no improvement despite therapies. GI consult obtained. Concern now is for ischemic bowel -NPO -Levaquin/Flagyl (2) -stool for C diff -surgical consult 3..Urinary retention (likely secondary to anesthesia/opiates) -continue chronic Ramos ... Need for adequate volume monitoring -voiding trial when appropriate 4. Pulmonary embolus -no respiratory issues at this time -minimal O2 requirement -continue lovenox as ordered... May need to hold p.m. dose if flex sig in a.m. -wean O2 as tolerated -check 2D echo to evaluate right heart strain 5.Type 2 diabetes -acceptable control on current therapy -lispro correctional scale -adjust as indicated 6.HTN -acceptable control on current therapy -adjust as indicated Requires ongoing hospitalization secondary to the need for IV antibiotics to treat colitis flare. Quality Stroke Does the patient have a stroke diagnosis?: No VTE Prior VTE?: No VTE Risk Level:: Surgical - very high VTE Device Contraindication: N/A - Device Ordered VTE Drug Contraindication: N/A - Med Ordered
[2023-06-03 12:49] VITALS: O2SAT 74
[2023-06-03] MEDS: Pentoxifylline ER 400 MG TABLET.ER PO ×2 (14:14→20:20)
[2023-06-03] MEDS: levoFLOXacin/D5W 750 MG/150 ML PIGGYBACK 100 MG IV (14:14)
[2023-06-03 15:10] VITALS: PULSE 79; RESP 18; TEMP 35.9; O2SAT 98
[2023-06-03 16:16] LABS: Glucose, Whole Blood 213 mg/dL (60-115)
[2023-06-03] MEDS: Morphine Sulfate 2 MG/ML CARTRIDGE IVPUSH ×2 (16:39→20:30)
[2023-06-03] MEDS: Insulin Lispro 100 UNIT/ML 3 ML VIAL SUBCUT ×2 (16:44→21:03)
[2023-06-03 19:20] VITALS: BP 158/60; PULSE 85; RESP 18; TEMP 36.3; O2SAT 99
[2023-06-03] MEDS: cloNIDine HCL 0.2 MG TABLET PO (20:20)
[2023-06-03 20:56] LABS: Glucose, Whole Blood 159 mg/dL (60-115)
[2023-06-03 21:02] LABS: CDiff Gene PCR NEGATIVE (Negative)
[2023-06-03] MEDS: Insulin Glargine,Hum.rec.anlog 100 UNIT/ML 10 ML VIAL 10 UNIT SUBCUT (21:03)
[2023-06-04] VITALS (8 sets, daily range): BP systolic 155–173; BP diastolic 55–88; PULSE 75–120; RESP 12–20; TEMP 36.1–37.7; O2SAT 93–99
[2023-06-04] MEDS: Morphine Sulfate 2 MG/ML CARTRIDGE IVPUSH ×5 (00:09→21:12)
[2023-06-04] MEDS: Loperamide HCl 2 MG CAPSULE 4 MG PO ×2 (01:55→08:29)
[2023-06-04] MEDS: metroNIDAZOLE/NS 500 MG/100 ML PIGGYBACK 100 MG IV ×3 (03:31→21:13)
[2023-06-04] MEDS: Metoprolol Tartrate 50 MG TABLET PO ×3 (03:31→21:17)
[2023-06-04] MEDS: Lactated Ringers 1,000 ML 125 ML IVCONT ×3 (03:32→21:16)
[2023-06-04] MEDS: Omeprazole 40 MG CAPSULE.DR PO (05:33)
[2023-06-04] MEDS: Levothyroxine Sodium 75 MCG TABLET PO (05:33)
[2023-06-04 07:08] LABS: Hematocrit 32.7 % (37.0-47.0); Hemoglobin 10.8 g/dl (12.0-16.0); Mean Corpuscular Hemoglobin 27.1 pg (27.0-33.0); Mean Platelet Volume 9.9 fL (9.4-12.3); NRBC Pct Auto 0.1 /100WBC (0.0-0.2); Platelet Count 303 X10*3/uL (160-400); Red Blood Count 3.99 X10*6/uL (4.20-5.50); Red Cell Distribution Width 14.6 % (11.0-16.0); White Blood Count 20.7 X10*3/uL (4.8-10.8)
[2023-06-04 07:17] LABS: Anion Gap 13 (12-20); Blood Urea Nitrogen 6 mg/dL (9-16); Carbon Dioxide 27 mmol/L (22-29); Chloride 104 mmol/L (96-108); Creatinine Clr Calc Pharmacy 98.9; Estimated Glomerular Filt Rate > 60; Glucose Random 155 mg/dL (60-115); Potassium 3.1 mmol/L (3.3-5.1); Sodium 141 mmol/L (135-145)
[2023-06-04 07:46] LABS: Atypical Lymph Absolute Manual 0.4 x10*3/uL; Atypical Lymphs Percent Manual 2 % (0-6); Band Neutrophils Percent 14 % (3-5); Lymphocytes Absolute Manual 1.2 X10*3/uL (1.2-4.9); Lymphocytes Percent Manual 6 % (20-40); Metamyelocytes Absolute 0.8 X10*3/uL; Metamyelocytes Percent 4 %; Monocytes Absolute Manual 1.2 X10*3/uL (0.1-1.2); Monocytes Percent Manual 6 % (2-11); Myelocytes Absolute 0.4 X10*/uL; Myelocytes Percent 2 %; Neutrophils Absolute Manual 16.6 X10*3/uL (2.0-8.3); Neutrophils Percent Manual 66 % (45-73)
[2023-06-04 07:46] LABS: Glucose, Whole Blood 140 mg/dL (60-115)
[2023-06-04 07:48] LABS: Large Platelet PRESENT; Platelet Estimate NORMAL (NORMAL); Platelet Morphology Comment NOTED; Polychromasia 1+ (0-2) /OIF; RBC Morphology NOTED
[2023-06-04] MEDS: Potassium Chloride/H20 10 MEQ/100 ML PIGGYBACK 100 MEQ IV ×2 (08:18→09:44)
[2023-06-04] MEDS: Venlafaxine HCl ER 150 MG CAP.ER.24H PO (08:18)
[2023-06-04] MEDS: Lidocaine 4 % Patch ADH..PATCH 2 PATCH TRANSDERMA (08:18)
[2023-06-04] MEDS: Gabapentin 100 MG CAPSULE PO ×2 (08:18→21:17)
[2023-06-04] MEDS: lisinopriL 40 MG TABLET PO (08:18)
[2023-06-04] MEDS: Pentoxifylline ER 400 MG TABLET.ER PO ×2 (08:18→21:17)
--- NOTE | 2023-06-04 10:11 | PM.PNORT ---
Subjective Subjective Date of Service: 06/04/23 Principal diagnosis: left TKA Interval history: POD 9 s/p LT TKA resting in recliner c/o belly pain due to diverticulosis knee is well Physical Exam Vital Signs: Vital Signs: Last Vital Signs Temp 99.8 F 06/04/23 07:37 Pulse 75 06/04/23 07:37 Resp 17 06/04/23 07:37 BP 168/72 H 06/04/23 07:37 Pulse Ox 97 06/04/23 07:37 O2 Del Method Nasal Cannula 06/04/23 07:37 O2 Flow Rate 2.0 06/04/23 07:37 FiO2 93 05/29/23 19:00 Oxygen Flow Rate 3 05/29/23 04:00 BMI result Body Mass Index 41.1 Const: General: cooperative, healthy appearing and no acute distress Eyes: Sclerae: sclerae normal EOM: EOMs intact bilaterally Neck: Neck: Yes no lymphadenopathy, Yes trachea midline and Yes supple Resp: Effort & Inspection: normal respiratory effort and able to speak in complete sentences Auscultation: clear to auscultation bilaterally Cardio: Rate: regular rate Rhythm: regular rhythm Heart sounds: no gallops, no murmurs and no rubs Peripheral pulses: Peripheral pulses 2+ throughout GI: Palpation (GI): Soft to palpation Auscultation: normal bowel sounds Skin: Lesions: no lesions Rashes: no rashes Extrem: Other: left knee bandage clean dry and intact. [place] intact. No erythema or joint effusion. Calf supple nontender. Neurovascularly intact. General: Yes no pedal edema, No clubbing and No cyanosis Procedures Date of Service Date of Service: 06/04/23 Progress Note: A&P Assessment and plan (1) Colitis, infectious: Status: Acute (2) Status post knee replacement: Status: Acute (3) Pulmonary embolism: Status: Acute Assessment and Plan: POD9 s/p left TKA Bilateral PE Diverticulitis with increased white count PT for LTKA - wbat encouraged out of bed to chair and walking d/c when medically stable (4) Diabetes: Status: Acute (5) Urinary retention: Status: Acute (6) BMI 35.0-35.9,adult: Status: Acute (7) Status post total left knee replacement: Status: Acute Time Spent With Patient Time: Total time managing care of this patient today ____ minutes. Quality Stroke Does the patient have a stroke diagnosis?: No VTE Prior VTE?: No VTE Risk Level:: Surgical - very high VTE Device Contraindication: N/A - Device Ordered VTE Drug Contraindication: N/A - Med Ordered
[2023-06-04 11:42] LABS: Glucose, Whole Blood 156 mg/dL (60-115)
--- NOTE | 2023-06-04 11:55 | PC.NURSE ---
Report given to Roselyn RN, per SSS patient is scheduled to be picked up for procedure at 1500
--- NOTE | 2023-06-04 14:15 | PC.NURSE ---
Patient picked up for the procedure.
--- NOTE | 2023-06-04 14:38 | HO.ANESPROP2 ---
HPI - Anesthesia Eval Consult details Narrative: for sigmidoscopy PMFSH Active Problems Active Problems: All Active Problems (Updated 06/03/23 @ 15:26 by Ludmila Walker MD) Ischemic colitis (Acute) Colitis, infectious (Acute) Asthma-COPD overlap syndrome (Acute) Status post knee replacement (Acute) Hypertension (Acute) Pulmonary embolism (Acute) Diabetes (Acute) Urinary retention (Acute) Status post total left knee replacement (Acute) Pre-op chest exam (Acute) Chronic restrictive lung disease (Acute) Upper respiratory infection (Acute) COPD exacerbation (Acute) HLD (hyperlipidemia) (Acute) Chronic idiopathic constipation (Acute) Tubular adenoma of colon (Acute) Skin lesion of back (Acute) MGUS (monoclonal gammopathy of unknown significance) (Acute) Status post total knee replacement, right (Acute) Osteoarthritis of left knee (Acute) GERD (gastroesophageal reflux disease) (Acute) Cough due to SHANELLE inhibitor (Acute) Eosinophilia (Acute) Asthma (Acute) Erosive gastritis (Acute) HTN (hypertension) (Acute) T2DM (type 2 diabetes mellitus) (Acute) Leg edema, left (Acute) Hyperparathyroidism (Acute) Vitamin D deficiency (Acute) Multinodular thyroid (Acute) Thyroid nodule (Acute) Skin lesion of chest wall (Acute) Type 2 diabetes mellitus with diabetic polyneuropathy (Acute) Diabetes mellitus with hyperglycemia (Acute) Meir's disease (Acute) Other specified acquired hypothyroidism (Acute) Hyperlipidemia LDL goal <100 (Acute) Essential hypertension (Acute) Vitamin B12 deficiency (Acute) Other obesity due to excess calories (Acute) BMI 35.0-35.9,adult (Acute) Past Medical History Medical History Colitis, infectious Chronic restrictive lung disease Obesity (BMI 30.0-34.9) Cough due to SHANELLE inhibitor Eosinophilia Asthma HTN (hypertension) T2DM (type 2 diabetes mellitus) Erosive gastritis Leg edema, left Hyperparathyroidism Vitamin D deficiency Multinodular thyroid Thyroid nodule Skin lesion of chest wall Type 2 diabetes mellitus with diabetic polyneuropathy Fibromyalgia Depression with anxiety Cervical cancer Osteoarthritis of left knee Osteopenia GERD (gastroesophageal reflux disease) Diabetes mellitus with hyperglycemia Meir's disease Other specified acquired hypothyroidism Hyperlipidemia LDL goal <100 Essential hypertension Vitamin B12 deficiency Other obesity due to excess calories BMI 35.0-35.9,adult Family History Family History Father CVD (cardiovascular disease) Diabetes mellitus Stroke Mother Stroke Diabetes mellitus Breast cancer Hyperthyroidism Family history of problems with anesthesia: No Surgical History Surgical History Hx of elbow surgery Hx of hand surgery Hx of arthroscopic knee surgery History of cholecystectomy History of arthroplasty of right knee Hx of hysterectomy Hx of foot surgery History of bilateral carpal tunnel release Hx of bilateral oophorectomy History of esophagogastroduodenoscopy (EGD) Hx of colonoscopy History of Problems with Anesthesia: No Social History Social History Household Members: Spouse Housing: House Housing Other:: 2nd floor-2 family house Are you a primary child care specialist to a significant other at home: No Do you presently have visiting nurse or other home services: Yes (CLINICAL ADVISOR) Alcohol intake: never Comment: continues with camera Patient Tobacco Use Status: Never used Tobacco service: No 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al status: disabled 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 Allergies Allergy/AdvReac Type Severity Reaction Status Date / Time hazelnut Allergy Mild per Verified 05/26/23 07:56 allergy skin test peanut Allergy Mild per Verified 05/26/23 07:56 allergy skin test Active Medications: Current Medications Acetaminophen (Acetaminophen 325 Mg Tablet) 975 mg PO Q6H PRN PRN Reason: Pain, Moderate(Pain Scale 4-6) Last Admin: 06/03/23 02:11 Dose: 975 mg Albuterol Sulfate (Albuterol Sulfate 90 Mcg 8 Gm Inhaler) 2 puff INHALE RQ4H PRN PRN Reason: Wheezing Albuterol/Ipratropium (Albuterol/Iprat 2.5/0.5mg 3 Ml Ampul.Neb) 3 ml INHALE RQ4H WHILE AWAKE PRN PRN Reason: Wheezing Clonidine HCl (Clonidine Hcl 0.2 Mg Tablet) 0.2 mg PO BEDTIME APARNA; Protocol Last Admin: 06/03/23 20:20 Dose: 0.2 mg Dextrose (Dextrose 50 % 25 Gm/50 Ml Syringe) 25 gm IVPUSH Q15M PRN; Protocol PRN Reason: per Hypoglycemia Standing Ord. Enoxaparin Sodium (Enoxaparin Sodium 100 Mg/Ml Syringe) 90 mg 1 mg/kg (90 mg) SUBCUT Q12H [facility] Last Admin: 06/04/23 08:17 Dose: Not Given Gabapentin (Gabapentin 100 Mg Capsule) 100 mg PO TID [facility] Last Admin: 06/04/23 14:33 Dose: Not Given Glucose (Glucose Gel 15 Gm Gel..Gram.) 15 gm PO Q15M PRN; Protocol PRN Reason: per Hypoglycemia Standing Ord. Hydroxyzine HCl (Hydroxyzine Hcl 10 Mg Tablet) 10 mg PO Q8H PRN PRN Reason: Anxiety Last Admin: 06/03/23 02:12 Dose: 10 mg Metronidazole (Flagyl) 500 mg in 100 mls @ 100 mls/hr IV Q8H [facility] Last Infusion: 06/04/23 14:24 Dose: Infused Levofloxacin (Levaquin) 750 mg in 150 mls @ 100 mls/hr IV Q24H [facility] Last Admin: 06/04/23 14:33 Dose: Not Given Lactated Ringer's (Lr) 1,000 mls @ 125 mls/hr IVCONT .Q8H [facility] Last Infusion: 06/04/23 12:20 Dose: Infused Insulin Glargine (Insulin Glargine,Hum.Rec.Anlog 100 Unit/Ml 10 Ml Vial) 10 unit SUBCUT BEDTIME [facility] Last Admin: 06/03/23 21:03 Dose: 10 unit Insulin Human Lispro (Insulin Lispro 100 Unit/Ml 3 Ml Vial) 0 unit SUBCUT QIDACHS [facility]; Protocol Last Admin: 06/04/23 11:45 Dose: Not Given Levothyroxine Sodium (Levothyroxine Sodium 75 Mcg Tablet) 75 mcg PO DAILY@0600 [facility] Last Admin: 06/04/23 05:33 Dose: 75 mcg Lidocaine (Lidocaine 4 % Patch Adh..Patch) 2 patch TRANSDERMA DAILY [facility]; Protocol Last Admin: 06/04/23 08:18 Dose: 2 patch Lisinopril (Lisinopril 40 Mg Tablet) 40 mg PO DAILY [facility]; Protocol Last Admin: 06/04/23 08:18 Dose: 40 mg Loperamide HCl (Loperamide Hcl 2 Mg Capsule) 4 mg PO Q6H PRN PRN Reason: Diarrhea Last Admin: 06/04/23 08:29 Dose: 4 mg Metoprolol Tartrate (Metoprolol Tartrate 50 Mg Tablet) 50 mg PO Q6H [facility]; Protocol Last Admin: 06/04/23 14:35 Dose: Not Given Morphine Sulfate (Morphine Sulfate 2 Mg/Ml Cartridge) 2 mg IVPUSH Q3H PRN; Protocol PRN Reason: Pain, Moderate(Pain Scale 4-6) Last Admin: 06/04/23 11:41 Dose: 2 mg Omeprazole (Omeprazole 40 Mg Capsule.Dr) 40 mg PO DAILY@0630 [facility] Last Admin: 06/04/23 05:33 Dose: 40 mg Ondansetron HCl (Ondansetron Hcl 4 Mg/2 Ml Vial) 4 mg IVPUSH Q6H PRN PRN Reason: Nausea and Vomiting Last Admin: 06/03/23 16:39 Dose: 4 mg Ondansetron HCl (Ondansetron Hcl 4 Mg/2 Ml Vial) 4 mg IVPUSH Q4H PRN PRN Reason: Nausea and Vomiting Pentoxifylline (Pentoxifylline Er 400 Mg Tablet.Er) 400 mg PO TID [facility] Last Admin: 06/04/23 14:35 Dose: Not Given Venlafaxine HCl (Venlafaxine Hcl Er 150 Mg Cap.Er.24h) 150 mg PO DAILY [facility] Last Admin: 06/04/23 08:18 Dose: 150 mg Home Medications Medication Instructions Recorded Confirmed Last Taken Type hydrochlorothiazide 50 mg tablet 50 mg PO DAILY 02/29/20 05/21/23 05/25/23 History blood sugar diagnostic #10 ea 03/19/20 05/21/23 02/26/23 History hydroxyzine HCl 50 mg tablet 50 mg PO Q8H PRN anxiety 03/19/20 05/21/23 05/25/23 History lisinopril 40 mg tablet 40 mg PO DAILY 03/19/20 05/21/23 05/25/23 History metoprolol succinate 200 mg 200 mg PO DAILY 07/09/20 05/21/23 05/26/23 01:00 History tablet,extended release 24 hr trazodone 150 mg tablet 300 mg PO BEDTIME 07/09/20 05/21/23 05/25/23 History lancets 33 gauge (IvelisseTojose Deldeja #100 ea 04/17/21 05/21/23 02/26/23 History Plus Lancet) verapamil 180 mg tablet,extended 360 mg PO DAILY 10/17/21 05/27/23 05/26/23 01:00 History release albuterol sulfate 0.63 mg/3 mL 1 amp inhalation Q4H PRN wheezing 03/24/22 05/21/23 Unknown History solution for nebulization levothyroxine 75 mcg tablet 75 mcg PO DAILY@0600 03/24/22 05/21/23 05/26/23 01:00 History multivitamin-ferrous 1 tab PO DAILY 03/24/22 05/21/23 05/25/23 History fumarate-folic acid 18 mg-400 mcg tablet (Certavite-Antioxidant) clonidine HCl 0.1 mg tablet 0.2 mg PO BEDTIME 02/28/23 05/21/23 05/25/23 History cyanocobalamin (vitamin B-12) 1,000 mcg PO DAILY 02/28/23 05/21/23 05/25/23 History 1,000 mcg sublingual tablet dexlansoprazole 60 mg 60 mg PO DAILY@0630 02/28/23 05/21/23 05/26/23 01:00 History capsule,biphase delayed release empagliflozin 25 mg tablet 25 mg PO QAM 02/28/23 05/21/23 05/11/23 History (Jardiance) insulin glargine 100 unit/mL (3 34 unit subcut BEDTIME 02/28/23 05/21/23 05/25/23 History mL) subcutaneous pen (Lantus Solostar U-100 Insulin) pioglitazone 15 mg tablet 15 mg PO QAM 02/28/23 05/21/23 05/25/23 History semaglutide 0.25 mg or 0.5 mg (2 0.5 mg subcut [place]@0900 02/28/23 05/21/23 05/11/23 History mg/3 mL) subcutaneous pen injector (Ozempic) venlafaxine 150 mg 150 mg PO DAILY 05/20/23 05/27/23 05/25/23 History capsule,extended release 24 hr fluticasone propionate 50 1 spray intranasal DAILY 05/25/23 05/26/23 05/25/23 History mcg/actuation nasal spray,suspension furosemide 40 mg tablet 40 mg PO DAILY 05/25/23 05/27/23 05/25/23 History fluticasone fur. 200 mcg-umeclid 1 ea inhalation DAILY 05/26/23 05/26/23 05/26/23 01:00 History 62.5 mcg-vilant 25 mcg inhalat.powder (Trelegy Ellipta) psyllium husk 3 gram/5.4 gram oral 3 g PO DAILY 05/27/23 05/27/23 Unknown History powder (Reguloid (psyllium husk)) Exam Height,Weight and Vital Signs: Height 5 ft 2 in Weight 102 kg Last Vital Signs Temp 97.0 F 06/04/23 14:22 Pulse 79 06/04/23 14:22 Resp 16 06/04/23 14:22 BP 173/73 H 06/04/23 14:22 Pulse Ox 98 06/04/23 14:22 O2 Del Method Nasal Cannula 06/04/23 14:22 O2 Flow Rate 2 06/04/23 14:22 FiO2 93 05/29/23 19:00 Oxygen Flow Rate 3 05/29/23 04:00 Pertinent Lab Results Pertinent Lab Results: Laboratory Tests 05/19/23 05/26/23 05/26/23 12:55 08:22 16:33 WBC RBC Hgb Hct MCV MCH MCHC RDW Plt Count MPV Immature Gran % (Auto) Neut % (Auto) Lymph % (Auto) [place] % (Auto) Eos % (Auto) Baso % (Auto) Lymph # (Auto) [place] # (Auto) Eos # (Auto) Baso # (Auto) Abs Immat Gran (auto) Absolute Neuts (auto) Absolute Nucleated RBC Nucleated RBC % (auto) Neutrophils % (Manual) Band Neutrophils % Lymphocytes % (Manual) Atypical Lymphs % (Man) Monocytes % (Manual) Eosinophils % (Manual) Basophils % (Manual) Metamyelocytes % Myelocytes % Abs Neuts (Manual) Lymphocytes # (Manual) Atyp Lymphs # (Manual) Monocytes # (Manual) Eosinophils # (Manual) Basophils # (Manual) Metamyelocytes # Myelocytes # Toxic Granulation Toxic Vacuolation Dohle Bodies Platelet Estimate Large Platelets Plt Morphology Comment RBC Morphology Polychromasia Hypochromasia Tear Drop Cells [place] Cells PT INR APTT D-Dimer High Sensitivty VBG pH VBG pCO2 VBG pO2 VBG HCO3 VBG O2 Saturation VBG Base Excess Sodium Potassium Chloride Carbon Dioxide Anion Gap BUN Creatinine Estim Creat Clear Calc Estimated GFR POC Glucose 220 H 292 H Random Glucose Fasting Glucose Lactic Acid Lactic Acid F/U @ 2Hr Lactic Acid F/U @ 4Hr Calcium Phosphorus Magnesium Total Bilirubin AST ALT Alkaline Phosphatase Troponin I High Sens C-Reactive Protein Total Protein Albumin TSH Urine Color Urine Appearance Urine pH Ur Specific [place] Urine Protein Urine Glucose (UA) Urine Ketones Urine Blood Urine Nitrite Ur Leukocyte Esterase Urine RBC Urine WBC Ur Squamous Epith Cells Urine Bacteria Hyaline Casts Nasal Screen MRSA (PCR) NEGATIVE Nasal S. aureus Screen NEGATIVE Nasal MRSA/S.aureus Interp SEE NOTE Stool Occult Blood Random Vancomycin C. difficile Tox B Gene 05/26/23 05/27/23 05/27/23 20:04 05:20 07:12 WBC 11.9 H RBC 4.82 Hgb 13.4 Hct 39.2 MCV 81.3 MCH 27.8 MCHC 34.2 RDW 13.3 Plt Count 193 D MPV 9.8 Immature Gran % (Auto) 0.3 Neut % (Auto) 69.8 Lymph % (Auto) 18.1 L [place] % (Auto) 10.6 Eos % (Auto) 0.9 Baso % (Auto) 0.3 Lymph # (Auto) 2.2 [place] # (Auto) 1.3 H Eos # (Auto) 0.1 Baso # (Auto) 0.0 Abs Immat Gran (auto) 0.04 H Absolute Neuts (auto) 8.3 Absolute Nucleated RBC 0.000 Nucleated RBC % (auto) 0.0 Neutrophils % (Manual) Band Neutrophils % Lymphocytes % (Manual) Atypical Lymphs % (Man) Monocytes % (Manual) Eosinophils % (Manual) Basophils % (Manual) Metamyelocytes % Myelocytes % Abs Neuts (Manual) Lymphocytes # (Manual) Atyp Lymphs # (Manual) Monocytes # (Manual) Eosinophils # (Manual) Basophils # (Manual) Metamyelocytes # Myelocytes # Toxic Granulation Toxic Vacuolation Dohle Bodies Platelet Estimate Large Platelets Plt Morphology Comment RBC Morphology Polychromasia Hypochromasia Tear Drop Cells [place] Cells PT INR APTT D-Dimer High Sensitivty VBG pH VBG pCO2 VBG pO2 VBG HCO3 VBG O2 Saturation VBG Base Excess Sodium 136 Potassium 4.2 Chloride 100 Carbon Dioxide 28 Anion Gap 12 BUN 15 Creatinine 1.18 Estim Creat Clear Calc 46.9 Estimated GFR 45 POC Glucose 259 H 242 H Random Glucose Fasting Glucose 238 H Lactic Acid Lactic Acid F/U @ 2Hr Lactic Acid F/U @ 4Hr Calcium 8.9 Phosphorus Magnesium Total Bilirubin AST ALT Alkaline Phosphatase Troponin I High Sens C-Reactive Protein Total Protein Albumin TSH Urine Color Urine Appearance Urine pH Ur Specific [place] Urine Protein Urine Glucose (UA) Urine Ketones Urine Blood Urine Nitrite Ur Leukocyte Esterase Urine RBC Urine WBC Ur Squamous Epith Cells Urine Bacteria Hyaline Casts Nasal Screen MRSA (PCR) Nasal S. aureus Screen Nasal MRSA/S.aureus Interp Stool Occult Blood Random Vancomycin C. difficile Tox B Gene 05/27/23 05/27/23 05/27/23 11:15 16:12 20:04 WBC RBC Hgb Hct MCV MCH MCHC RDW Plt Count MPV Immature Gran % (Auto) Neut % (Auto) Lymph % (Auto) [place] % (Auto) Eos % (Auto) Baso % (Auto) Lymph # (Auto) [place] # (Auto) Eos # (Auto) Baso # (Auto) Abs Immat Gran (auto) Absolute Neuts (auto) Absolute Nucleated RBC Nucleated RBC % (auto) Neutrophils % (Manual) Band Neutrophils % Lymphocytes % (Manual) Atypical Lymphs % (Man) Monocytes % (Manual) Eosinophils % (Manual) Basophils % (Manual) Metamyelocytes % Myelocytes % Abs Neuts (Manual) Lymphocytes # (Manual) Atyp Lymphs # (Manual) Monocytes # (Manual) Eosinophils # (Manual) Basophils # (Manual) Metamyelocytes # Myelocytes # Toxic Granulation Toxic Vacuolation Dohle Bodies Platelet Estimate Large Platelets Plt Morphology Comment RBC Morphology Polychromasia Hypochromasia Tear Drop Cells [place] Cells PT INR APTT D-Dimer High Sensitivty VBG pH VBG pCO2 VBG pO2 VBG HCO3 VBG O2 Saturation VBG Base Excess Sodium Potassium Chloride Carbon Dioxide Anion Gap BUN Creatinine Estim Creat Clear Calc Estimated GFR POC Glucose 234 H 277 H 209 H Random Glucose Fasting Glucose Lactic Acid Lactic Acid F/U @ 2Hr Lactic Acid F/U @ 4Hr Calcium Phosphorus Magnesium Total Bilirubin AST ALT Alkaline Phosphatase Troponin I High Sens C-Reactive Protein Total Protein Albumin TSH Urine Color Urine Appearance Urine pH Ur Specific [place] Urine Protein Urine Glucose (UA) Urine Ketones Urine Blood Urine Nitrite Ur Leukocyte Esterase Urine RBC Urine WBC Ur Squamous Epith Cells Urine Bacteria Hyaline Casts Nasal Screen MRSA (PCR) Nasal S. aureus Screen Nasal MRSA/S.aureus Interp Stool Occult Blood Random Vancomycin C. difficile Tox B Gene 05/28/23 05/28/2324 07:29 09:07 11:18 WBC 11.2 H RBC 4.50 Hgb 12.4 Hct 37.0 MCV 82.2 MCH 27.6 MCHC 33.5 RDW 13.3 Plt Count 157 L MPV 9.8 Immature Gran % (Auto) 0.5 H Neut % (Auto) 70.0 Lymph % (Auto) 19.5 L [place] % (Auto) 8.1 Eos % (Auto) 1.5 Baso % (Auto) 0.4 Lymph # (Auto) 2.2 [place] # (Auto) 0.9 Eos # (Auto) 0.2 Baso # (Auto) 0.1 Abs Immat Gran (auto) 0.06 H Absolute Neuts (auto) 7.8 Absolute Nucleated RBC 0.000 Nucleated RBC % (auto) 0.0 Neutrophils % (Manual) Band Neutrophils % Lymphocytes % (Manual) Atypical Lymphs % (Man) Monocytes % (Manual) Eosinophils % (Manual) Basophils % (Manual) Metamyelocytes % Myelocytes % Abs Neuts (Manual) Lymphocytes # (Manual) Atyp Lymphs # (Manual) Monocytes # (Manual) Eosinophils # (Manual) Basophils # (Manual) Metamyelocytes # Myelocytes # Toxic Granulation Toxic Vacuolation Dohle Bodies Platelet Estimate Large Platelets Plt Morphology Comment RBC Morphology Polychromasia Hypochromasia Tear Drop Cells [place] Cells PT INR APTT D-Dimer High Sensitivty VBG pH VBG pCO2 VBG pO2 VBG HCO3 VBG O2 Saturation VBG Base Excess Sodium 135 Potassium 4.1 Chloride 99 Carbon Dioxide 30 H Anion Gap 10 L BUN 21 H Creatinine 1.21 Estim Creat Clear Calc 45.8 Estimated GFR 44 POC Glucose 234 H 229 H Random Glucose Fasting Glucose 225 H Lactic Acid Lactic Acid F/U @ 2Hr Lactic Acid F/U @ 4Hr Calcium 9.1 Phosphorus Magnesium Total Bilirubin AST ALT Alkaline Phosphatase Troponin I High Sens C-Reactive Protein Total Protein Albumin TSH Urine Color Urine Appearance Urine pH Ur Specific [place] Urine Protein Urine Glucose (UA) Urine Ketones Urine Blood Urine Nitrite Ur Leukocyte Esterase Urine RBC Urine WBC Ur Squamous Epith Cells Urine Bacteria Hyaline Casts Nasal Screen MRSA (PCR) Nasal S. aureus Screen Nasal MRSA/S.aureus Interp Stool Occult Blood Random Vancomycin C. difficile Tox B Gene 03/14/24 03/14/24 03/14/24 12:48 16:07 19:31 WBC RBC Hgb Hct MCV MCH MCHC RDW Plt Count MPV Immature Gran % (Auto) Neut % (Auto) Lymph % (Auto) [place] % (Auto) Eos % (Auto) Baso % (Auto) Lymph # (Auto) [place] # (Auto) Eos # (Auto) Baso # (Auto) Abs Immat Gran (auto) Absolute Neuts (auto) Absolute Nucleated RBC Nucleated RBC % (auto) Neutrophils % (Manual) Band Neutrophils % Lymphocytes % (Manual) Atypical Lymphs % (Man) Monocytes % (Manual) Eosinophils % (Manual) Basophils % (Manual) Metamyelocytes % Myelocytes % Abs Neuts (Manual) Lymphocytes # (Manual) Atyp Lymphs # (Manual) Monocytes # (Manual) Eosinophils # (Manual) Basophils # (Manual) Metamyelocytes # Myelocytes # Toxic Granulation Toxic Vacuolation Dohle Bodies Platelet Estimate Large Platelets Plt Morphology Comment RBC Morphology Polychromasia Hypochromasia Tear Drop Cells [place] Cells PT INR APTT D-Dimer High Sensitivty VBG pH VBG pCO2 VBG pO2 VBG HCO3 VBG O2 Saturation VBG Base Excess Sodium Potassium Chloride Carbon Dioxide Anion Gap BUN Creatinine Estim Creat Clear Calc Estimated GFR POC Glucose 269 H 338 H 326 H Random Glucose Fasting Glucose Lactic Acid Lactic Acid F/U @ 2Hr Lactic Acid F/U @ 4Hr Calcium Phosphorus Magnesium Total Bilirubin AST ALT Alkaline Phosphatase Troponin I High Sens C-Reactive Protein Total Protein Albumin TSH Urine Color Urine Appearance Urine pH Ur Specific [place] Urine Protein Urine Glucose (UA) Urine Ketones Urine Blood Urine Nitrite Ur Leukocyte Esterase Urine RBC Urine WBC Ur Squamous Epith Cells Urine Bacteria Hyaline Casts Nasal Screen MRSA (PCR) Nasal S. aureus Screen Nasal MRSA/S.aureus Interp Stool Occult Blood Random Vancomycin C. difficile Tox B Gene 05/29/23 05/29/23 05/29/23 03:30 04:03 04:04 WBC RBC Hgb Hct MCV MCH MCHC RDW Plt Count MPV Immature Gran % (Auto) Neut % (Auto) Lymph % (Auto) [place] % (Auto) Eos % (Auto) Baso % (Auto) Lymph # (Auto) [place] # (Auto) Eos # (Auto) Baso # (Auto) Abs Immat Gran (auto) Absolute Neuts (auto) Absolute Nucleated RBC Nucleated RBC % (auto) Neutrophils % (Manual) Band Neutrophils % Lymphocytes % (Manual) Atypical Lymphs % (Man) Monocytes % (Manual) Eosinophils % (Manual) Basophils % (Manual) Metamyelocytes % Myelocytes % Abs Neuts (Manual) Lymphocytes # (Manual) Atyp Lymphs # (Manual) Monocytes # (Manual) Eosinophils # (Manual) Basophils # (Manual) Metamyelocytes # Myelocytes # Toxic Granulation Toxic Vacuolation Dohle Bodies Platelet Estimate Large Platelets Plt Morphology Comment RBC Morphology Polychromasia Hypochromasia Tear Drop Cells [place] Cells PT INR APTT D-Dimer High Sensitivty VBG pH 7.46 H VBG pCO2 25 VBG pO2 63 VBG HCO3 18 L VBG O2 Saturation 93.0 VBG Base Excess -3.7 Sodium Potassium Chloride Carbon Dioxide Anion Gap BUN Creatinine Estim Creat Clear Calc Estimated GFR POC Glucose 249 H Random Glucose Fasting Glucose Lactic Acid Lactic Acid F/U @ 2Hr Lactic Acid F/U @ 4Hr Calcium Phosphorus Magnesium Total Bilirubin AST ALT Alkaline Phosphatase Troponin I High Sens 3.1 C-Reactive Protein Total Protein Albumin TSH Urine Color Urine Appearance Urine pH Ur Specific [place] Urine Protein Urine Glucose (UA) Urine Ketones Urine Blood Urine Nitrite Ur Leukocyte Esterase Urine RBC Urine WBC Ur Squamous Epith Cells Urine Bacteria Hyaline Casts Nasal Screen MRSA (PCR) Nasal S. aureus Screen Nasal MRSA/S.aureus Interp Stool Occult Blood Random Vancomycin C. difficile Tox B Gene 05/29/23 05/29/23 05/29/23 06:30 06:38 09:32 WBC 13.5 H RBC 4.72 Hgb 13.0 Hct 39.0 MCV 82.6 MCH 27.5 MCHC 33.3 RDW 13.5 Plt Count 166 MPV 10.4 Immature Gran % (Auto) Cancelled Neut % (Auto) Cancelled Lymph % (Auto) Cancelled [place] % (Auto) Cancelled Eos % (Auto) Cancelled Baso % (Auto) Cancelled Lymph # (Auto) Cancelled [place] # (Auto) Cancelled Eos # (Auto) Cancelled Baso # (Auto) Cancelled Abs Immat Gran (auto) Cancelled Absolute Neuts (auto) Cancelled Absolute Nucleated RBC 0.000 Nucleated RBC % (auto) 0.0 Neutrophils % (Manual) 69 Band Neutrophils % 18 H Lymphocytes % (Manual) 6 L Atypical Lymphs % (Man) Monocytes % (Manual) 4 Eosinophils % (Manual) Basophils % (Manual) Metamyelocytes % 3 Myelocytes % Abs Neuts (Manual) 11.7 H Lymphocytes # (Manual) 0.8 L Atyp Lymphs # (Manual) Monocytes # (Manual) 0.5 Eosinophils # (Manual) Basophils # (Manual) Metamyelocytes # 0.4 Myelocytes # Toxic Granulation Toxic Vacuolation PRESENT Dohle Bodies Platelet Estimate NORMAL Large Platelets PRESENT Plt Morphology Comment NOTED RBC Morphology NOTED Polychromasia Hypochromasia Tear Drop Cells [place] Cells 1+ (0-2) PT INR APTT D-Dimer High Sensitivty 68855 VBG pH VBG pCO2 VBG pO2 VBG HCO3 VBG O2 Saturation VBG Base Excess Sodium 134 L Potassium 5.0 D Chloride 106 Carbon Dioxide 17 L Anion Gap 14 BUN 40 H Creatinine 1.72 H Estim Creat Clear Calc 33.0 Estimated GFR 29 POC Glucose 224 H Random Glucose 276 H Fasting Glucose Lactic Acid 2.4 H* Cancelled Lactic Acid F/U @ 2Hr 1.7 Lactic Acid F/U @ 4Hr Calcium 7.9 L D Phosphorus 2.2 L Magnesium 2.2 Total Bilirubin 1.3 H AST 57 H ALT 53 H Alkaline Phosphatase 128 H Troponin I High Sens 4.4 C-Reactive Protein 20.73 H 22.15 H Total Protein 5.5 L Albumin 2.6 L TSH Urine Color Urine Appearance Urine pH Ur Specific [place] Urine Protein Urine Glucose (UA) Urine Ketones Urine Blood Urine Nitrite Ur Leukocyte Esterase Urine RBC Urine WBC Ur Squamous Epith Cells Urine Bacteria Hyaline Casts Nasal Screen MRSA (PCR) Nasal S. aureus Screen Nasal MRSA/S.aureus Interp Stool Occult Blood Random Vancomycin C. difficile Tox B Gene 05/29/23 05/29/23 05/29/23 12:18 13:08 16:00 WBC RBC Hgb Hct MCV MCH MCHC RDW Plt Count MPV Immature Gran % (Auto) Neut % (Auto) Lymph % (Auto) [place] % (Auto) Eos % (Auto) Baso % (Auto) Lymph # (Auto) [place] # (Auto) Eos # (Auto) Baso # (Auto) Abs Immat Gran (auto) Absolute Neuts (auto) Absolute Nucleated RBC Nucleated RBC % (auto) Neutrophils % (Manual) Band Neutrophils % Lymphocytes % (Manual) Atypical Lymphs % (Man) Monocytes % (Manual) Eosinophils % (Manual) Basophils % (Manual) Metamyelocytes % Myelocytes % Abs Neuts (Manual) Lymphocytes # (Manual) Atyp Lymphs # (Manual) Monocytes # (Manual) Eosinophils # (Manual) Basophils # (Manual) Metamyelocytes # Myelocytes # Toxic Granulation Toxic Vacuolation Dohle Bodies Platelet Estimate Large Platelets Plt Morphology Comment RBC Morphology Polychromasia Hypochromasia Tear Drop Cells [place] Cells PT INR APTT D-Dimer High Sensitivty VBG pH VBG pCO2 VBG pO2 VBG HCO3 VBG O2 Saturation VBG Base Excess Sodium Potassium Chloride Carbon Dioxide Anion Gap BUN Creatinine Estim Creat Clear Calc Estimated GFR POC Glucose 293 H 326 H Random Glucose Fasting Glucose Lactic Acid Lactic Acid F/U @ 2Hr Lactic Acid F/U @ 4Hr Calcium Phosphorus Magnesium Total Bilirubin AST ALT Alkaline Phosphatase Troponin I High Sens C-Reactive Protein Total Protein Albumin TSH Urine Color Dark Yellow Urine Appearance Clear Urine pH 5.0 Ur Specific [place] >= 1.030 H Urine Protein Trace Urine Glucose (UA) 250 H Urine Ketones Trace Urine Blood Moderate (2+) H Urine Nitrite Negative Ur Leukocyte Esterase Negative Urine RBC 3-5 H Urine WBC 0-5 Ur Squamous Epith Cells 0-2 Urine Bacteria None Seen Hyaline Casts 0-2 Nasal Screen MRSA (PCR) Nasal S. aureus Screen Nasal MRSA/S.aureus Interp Stool Occult Blood Random Vancomycin C. difficile Tox B Gene 05/29/23 05/29/23 05/29/23 17:09 21:14 21:31 WBC 10.0 RBC 4.60 Hgb 12.6 Hct 37.4 MCV 81.3 MCH 27.4 MCHC 33.7 RDW 13.5 Plt Count 174 MPV 10.1 Immature Gran % (Auto) Neut % (Auto) Lymph % (Auto) [place] % (Auto) Eos % (Auto) Baso % (Auto) Lymph # (Auto) [place] # (Auto) Eos # (Auto) Baso # (Auto) Abs Immat Gran (auto) Absolute Neuts (auto) Absolute Nucleated RBC 0.000 Nucleated RBC % (auto) 0.0 Neutrophils % (Manual) Band Neutrophils % Lymphocytes % (Manual) Atypical Lymphs % (Man) Monocytes % (Manual) Eosinophils % (Manual) Basophils % (Manual) Metamyelocytes % Myelocytes % Abs Neuts (Manual) Lymphocytes # (Manual) Atyp Lymphs # (Manual) Monocytes # (Manual) Eosinophils # (Manual) Basophils # (Manual) Metamyelocytes # Myelocytes # Toxic Granulation Toxic Vacuolation Dohle Bodies Platelet Estimate Large Platelets Plt Morphology Comment RBC Morphology Polychromasia Hypochromasia Tear Drop Cells [place] Cells PT 13.1 INR 1.1 APTT 35.4 D-Dimer High Sensitivty VBG pH VBG pCO2 VBG pO2 VBG HCO3 VBG O2 Saturation VBG Base Excess Sodium 136 Potassium 4.3 Chloride 108 Carbon Dioxide 18 L Anion Gap 14 BUN 37 H Creatinine 1.53 H Estim Creat Clear Calc 37.1 Estimated GFR 34 POC Glucose 291 H Random Glucose 351 H* Fasting Glucose Lactic Acid Lactic Acid F/U @ 2Hr Lactic Acid F/U @ 4Hr Calcium 8.8 D Phosphorus 4.2 Magnesium 2.3 Total Bilirubin 1.1 H AST 51 H ALT 47 H Alkaline Phosphatase 112 Troponin I High Sens C-Reactive Protein Total Protein 5.8 L Albumin 2.9 L TSH Urine Color Urine Appearance Urine pH Ur Specific [place] Urine Protein Urine Glucose (UA) Urine Ketones Urine Blood Urine Nitrite Ur Leukocyte Esterase Urine RBC Urine WBC Ur Squamous Epith Cells Urine Bacteria Hyaline Casts Nasal Screen MRSA (PCR) Nasal S. aureus Screen Nasal MRSA/S.aureus Interp Stool Occult Blood Random Vancomycin C. difficile Tox B Gene 05/29/23 05/29/23 05/30/23 21:39 23:40 04:58 WBC 8.3 RBC 4.31 Hgb 11.8 L Hct 35.0 L MCV 81.2 MCH 27.4 MCHC 33.7 RDW 13.5 Plt Count 188 MPV 10.4 Immature Gran % (Auto) Cancelled Neut % (Auto) Cancelled Lymph % (Auto) Cancelled [place] % (Auto) Cancelled Eos % (Auto) Cancelled Baso % (Auto) Cancelled Lymph # (Auto) Cancelled [place] # (Auto) Cancelled Eos # (Auto) Cancelled Baso # (Auto) Cancelled Abs Immat Gran (auto) Cancelled Absolute Neuts (auto) Cancelled Absolute Nucleated RBC 0.020 H Nucleated RBC % (auto) 0.2 Neutrophils % (Manual) 25 L Band Neutrophils % 48 H Lymphocytes % (Manual) 11 L Atypical Lymphs % (Man) Monocytes % (Manual) 7 Eosinophils % (Manual) Basophils % (Manual) Metamyelocytes % 7 Myelocytes % 2 Abs Neuts (Manual) 6.1 Lymphocytes # (Manual) 0.9 L Atyp Lymphs # (Manual) Monocytes # (Manual) 0.6 Eosinophils # (Manual) Basophils # (Manual) Metamyelocytes # 0.6 Myelocytes # 0.2 Toxic Granulation PRESENT Toxic Vacuolation PRESENT Dohle Bodies PRESENT Platelet Estimate NORMAL Large Platelets Plt Morphology Comment NORMAL RBC Morphology NOTED Polychromasia Hypochromasia Tear Drop Cells 1+ (0-2) [place] Cells 2+ (3-5) PT INR APTT D-Dimer High Sensitivty VBG pH VBG pCO2 VBG pO2 VBG HCO3 VBG O2 Saturation VBG Base Excess Sodium 137 Potassium 3.7 Chloride 108 Carbon Dioxide 19 L Anion Gap 14 BUN 35 H Creatinine 1.26 Estim Creat Clear Calc 46.1 Estimated GFR 42 POC Glucose 305 H Random Glucose 302 H Fasting Glucose Lactic Acid Lactic Acid F/U @ 2Hr Lactic Acid F/U @ 4Hr Calcium 8.2 L D Phosphorus Magnesium Total Bilirubin AST ALT Alkaline Phosphatase Troponin I High Sens C-Reactive Protein Total Protein Albumin TSH Urine Color Urine Appearance Urine pH Ur Specific [place] Urine Protein Urine Glucose (UA) Urine Ketones Urine Blood Urine Nitrite Ur Leukocyte Esterase Urine RBC Urine WBC Ur Squamous Epith Cells Urine Bacteria Hyaline Casts Nasal Screen MRSA (PCR) Nasal S. aureus Screen Nasal MRSA/S.aureus Interp Stool Occult Blood Random Vancomycin C. difficile Tox B Gene NEGATIVE 05/30/23 05/30/23 05/30/23 07:40 09:06 11:42 WBC RBC Hgb Hct MCV MCH MCHC RDW Plt Count MPV Immature Gran % (Auto) Neut % (Auto) Lymph % (Auto) [place] % (Auto) Eos % (Auto) Baso % (Auto) Lymph # (Auto) [place] # (Auto) Eos # (Auto) Baso # (Auto) Abs Immat Gran (auto) Absolute Neuts (auto) Absolute Nucleated RBC Nucleated RBC % (auto) Neutrophils % (Manual) Band Neutrophils % Lymphocytes % (Manual) Atypical Lymphs % (Man) Monocytes % (Manual) Eosinophils % (Manual) Basophils % (Manual) Metamyelocytes % Myelocytes % Abs Neuts (Manual) Lymphocytes # (Manual) Atyp Lymphs # (Manual) Monocytes # (Manual) Eosinophils # (Manual) Basophils # (Manual) Metamyelocytes # Myelocytes # Toxic Granulation Toxic Vacuolation Dohle Bodies Platelet Estimate Large Platelets Plt Morphology Comment RBC Morphology Polychromasia Hypochromasia Tear Drop Cells [place] Cells PT INR APTT D-Dimer High Sensitivty VBG pH VBG pCO2 VBG pO2 VBG HCO3 VBG O2 Saturation VBG Base Excess Sodium Potassium Chloride Carbon Dioxide Anion Gap BUN Creatinine Estim Creat Clear Calc Estimated GFR POC Glucose 281 H 301 H Random Glucose Fasting Glucose Lactic Acid Lactic Acid F/U @ 2Hr Lactic Acid F/U @ 4Hr Calcium Phosphorus Magnesium Total Bilirubin AST ALT Alkaline Phosphatase Troponin I High Sens C-Reactive Protein Total Protein Albumin TSH Urine Color Urine Appearance Urine pH Ur Specific [place] Urine Protein Urine Glucose (UA) Urine Ketones Urine Blood Urine Nitrite Ur Leukocyte Esterase Urine RBC Urine WBC Ur Squamous Epith Cells Urine Bacteria Hyaline Casts Nasal Screen MRSA (PCR) Nasal S. aureus Screen Nasal MRSA/S.aureus Interp Stool Occult Blood Random Vancomycin 16.2 C. difficile Tox B Gene 05/30/23 05/30/23 05/30/23 13:26 16:40 16:50 WBC RBC Hgb Hct MCV MCH MCHC RDW Plt Count MPV Immature Gran % (Auto) Neut % (Auto) Lymph % (Auto) [place] % (Auto) Eos % (Auto) Baso % (Auto) Lymph # (Auto) [place] # (Auto) Eos # (Auto) Baso # (Auto) Abs Immat Gran (auto) Absolute Neuts (auto) Absolute Nucleated RBC Nucleated RBC % (auto) Neutrophils % (Manual) Band Neutrophils % Lymphocytes % (Manual) Atypical Lymphs % (Man) Monocytes % (Manual) Eosinophils % (Manual) Basophils % (Manual) Metamyelocytes % Myelocytes % Abs Neuts (Manual) Lymphocytes # (Manual) Atyp Lymphs # (Manual) Monocytes # (Manual) Eosinophils # (Manual) Basophils # (Manual) Metamyelocytes # Myelocytes # Toxic Granulation Toxic Vacuolation Dohle Bodies Platelet Estimate Large Platelets Plt Morphology Comment RBC Morphology Polychromasia Hypochromasia Tear Drop Cells [place] Cells PT 14.7 H INR 1.2 H APTT D-Dimer High Sensitivty VBG pH VBG pCO2 VBG pO2 VBG HCO3 VBG O2 Saturation VBG Base Excess Sodium 135 Potassium 3.5 Chloride 105 Carbon Dioxide 20 L Anion Gap 14 BUN 32 H Creatinine 1.19 Estim Creat Clear Calc 48.7 Estimated GFR 45 POC Glucose 302 H Random Glucose 329 H Fasting Glucose Lactic Acid Lactic Acid F/U @ 2Hr Lactic Acid F/U @ 4Hr Calcium 8.9 D Phosphorus 2.8 Magnesium 2.1 Total Bilirubin AST ALT Alkaline Phosphatase Troponin I High Sens C-Reactive Protein Total Protein Albumin TSH Urine Color Urine Appearance Urine pH Ur Specific [place] Urine Protein Urine Glucose (UA) Urine Ketones Urine Blood Urine Nitrite Ur Leukocyte Esterase Urine RBC Urine WBC Ur Squamous Epith Cells Urine Bacteria Hyaline Casts Nasal Screen MRSA (PCR) Nasal S. aureus Screen Nasal MRSA/S.aureus Interp Stool Occult Blood Random Vancomycin C. difficile Tox B Gene 05/30/23 05/30/23 05/30/23 18:26 20:07 20:49 WBC RBC Hgb Hct MCV MCH MCHC RDW Plt Count MPV Immature Gran % (Auto) Neut % (Auto) Lymph % (Auto) [place] % (Auto) Eos % (Auto) Baso % (Auto) Lymph # (Auto) [place] # (Auto) Eos # (Auto) Baso # (Auto) Abs Immat Gran (auto) Absolute Neuts (auto) Absolute Nucleated RBC Nucleated RBC % (auto) Neutrophils % (Manual) Band Neutrophils % Lymphocytes % (Manual) Atypical Lymphs % (Man) Monocytes % (Manual) Eosinophils % (Manual) Basophils % (Manual) Metamyelocytes % Myelocytes % Abs Neuts (Manual) Lymphocytes # (Manual) Atyp Lymphs # (Manual) Monocytes # (Manual) Eosinophils # (Manual) Basophils # (Manual) Metamyelocytes # Myelocytes # Toxic Granulation Toxic Vacuolation Dohle Bodies Platelet Estimate Large Platelets Plt Morphology Comment RBC Morphology Polychromasia Hypochromasia Tear Drop Cells [place] Cells PT INR APTT D-Dimer High Sensitivty VBG pH VBG pCO2 VBG pO2 VBG HCO3 VBG O2 Saturation VBG Base Excess Sodium Potassium Chloride Carbon Dioxide Anion Gap BUN Creatinine Estim Creat Clear Calc Estimated GFR POC Glucose 308 H Random Glucose Fasting Glucose Lactic Acid 4.0 H* Lactic Acid F/U @ 2Hr 4.2 H* Lactic Acid F/U @ 4Hr Calcium Phosphorus Magnesium Total Bilirubin AST ALT Alkaline Phosphatase Troponin I High Sens C-Reactive Protein Total Protein Albumin TSH 0.80 Urine Color Urine Appearance Urine pH Ur Specific [place] Urine Protein Urine Glucose (UA) Urine Ketones Urine Blood Urine Nitrite Ur Leukocyte Esterase Urine RBC Urine WBC Ur Squamous Epith Cells Urine Bacteria Hyaline Casts Nasal Screen MRSA (PCR) Nasal S. aureus Screen Nasal MRSA/S.aureus Interp Stool Occult Blood Random Vancomycin C. difficile Tox B Gene 05/30/23 05/30/23 05/31/23 21:51 23:16 02:45 WBC 9.4 RBC 3.98 L Hgb 10.9 L Hct 31.2 L MCV 78.4 L MCH 27.4 MCHC 34.9 RDW 14.1 Plt Count 182 MPV 10.0 Immature Gran % (Auto) Cancelled Neut % (Auto) Cancelled Lymph % (Auto) Cancelled [place] % (Auto) Cancelled Eos % (Auto) Cancelled Baso % (Auto) Cancelled Lymph # (Auto) Cancelled [place] # (Auto) Cancelled Eos # (Auto) Cancelled Baso # (Auto) Cancelled Abs Immat Gran (auto) Cancelled Absolute Neuts (auto) Cancelled Absolute Nucleated RBC 0.020 H Nucleated RBC % (auto) 0.2 Neutrophils % (Manual) 54 Band Neutrophils % 17 H Lymphocytes % (Manual) 11 L Atypical Lymphs % (Man) 1 Monocytes % (Manual) 10 Eosinophils % (Manual) 1 Basophils % (Manual) Metamyelocytes % 5 Myelocytes % 1 Abs Neuts (Manual) 6.7 Lymphocytes # (Manual) 1.0 L Atyp Lymphs # (Manual) 0.1 Monocytes # (Manual) 0.9 Eosinophils # (Manual) 0.1 Basophils # (Manual) Metamyelocytes # 0.5 Myelocytes # 0.1 Toxic Granulation PRESENT Toxic Vacuolation Dohle Bodies Platelet Estimate NORMAL Large Platelets Plt Morphology Comment NORMAL RBC Morphology NOTED Polychromasia Hypochromasia Tear Drop Cells [place] Cells 2+ (3-5) PT INR APTT D-Dimer High Sensitivty VBG pH VBG pCO2 VBG pO2 VBG HCO3 VBG O2 Saturation VBG Base Excess Sodium 136 Potassium 3.3 Chloride 108 Carbon Dioxide 21 L Anion Gap 10 L BUN 24 H Creatinine 0.96 Estim Creat Clear Calc 60.4 Estimated GFR 58 POC Glucose Random Glucose 284 H Fasting Glucose Lactic Acid Lactic Acid F/U @ 2Hr Lactic Acid F/U @ 4Hr 2.8 H* Calcium 8.3 L D Phosphorus 1.8 L Magnesium 2.1 Total Bilirubin 0.9 AST 42 H ALT 35 H Alkaline Phosphatase 83 Troponin I High Sens C-Reactive Protein Total Protein 4.9 L Albumin 2.3 L TSH Urine Color Urine Appearance Urine pH Ur Specific [place] Urine Protein Urine Glucose (UA) Urine Ketones Urine Blood Urine Nitrite Ur Leukocyte Esterase Urine RBC Urine WBC Ur Squamous Epith Cells Urine Bacteria Hyaline Casts Nasal Screen MRSA (PCR) Nasal S. aureus Screen Nasal MRSA/S.aureus Interp Stool Occult Blood POSITIVE Random Vancomycin C. difficile Tox B Gene 05/31/23 05/31/23 05/31/23 04:48 04:49 07:09 WBC 10.0 RBC 3.88 L Hgb 10.6 L Hct 30.7 L MCV 79.1 L MCH 27.3 MCHC 34.5 RDW 13.8 Plt Count 180 MPV 9.8 Immature Gran % (Auto) Cancelled Neut % (Auto) Cancelled Lymph % (Auto) Cancelled [place] % (Auto) Cancelled Eos % (Auto) Cancelled Baso % (Auto) Cancelled Lymph # (Auto) Cancelled [place] # (Auto) Cancelled Eos # (Auto) Cancelled Baso # (Auto) Cancelled Abs Immat Gran (auto) Cancelled Absolute Neuts (auto) Cancelled Absolute Nucleated RBC 0.000 Nucleated RBC % (auto) 0.0 Neutrophils % (Manual) 42 L Band Neutrophils % 33 H Lymphocytes % (Manual) 6 L Atypical Lymphs % (Man) 2 Monocytes % (Manual) 11 Eosinophils % (Manual) 3 Basophils % (Manual) 1 Metamyelocytes % 2 Myelocytes % Abs Neuts (Manual) 7.5 Lymphocytes # (Manual) 0.6 L Atyp Lymphs # (Manual) 0.2 Monocytes # (Manual) 1.1 Eosinophils # (Manual) 0.3 Basophils # (Manual) 0.1 Metamyelocytes # 0.2 Myelocytes # Toxic Granulation Toxic Vacuolation Dohle Bodies Platelet Estimate NORMAL Large Platelets Plt Morphology Comment NORMAL RBC Morphology NORMAL Polychromasia Hypochromasia Tear Drop Cells [place] Cells PT INR APTT D-Dimer High Sensitivty VBG pH 7.50 H VBG pCO2 31 VBG pO2 47 VBG HCO3 24 VBG O2 Saturation 76.0 VBG Base Excess 2.2 Sodium 138 Potassium 3.2 L Chloride 106 Carbon Dioxide 24 Anion Gap 11 L BUN 19 H Creatinine 0.79 Estim Creat Clear Calc 73.4 Estimated GFR > 60 POC Glucose 186 H Random Glucose 197 H Fasting Glucose Lactic Acid 1.5 Lactic Acid F/U @ 2Hr Lactic Acid F/U @ 4Hr Calcium 7.8 L D Phosphorus 2.6 L Magnesium 1.9 Total Bilirubin AST ALT Alkaline Phosphatase Troponin I High Sens C-Reactive Protein Total Protein Albumin TSH Urine Color Urine Appearance Urine pH Ur Specific [place] Urine Protein Urine Glucose (UA) Urine Ketones Urine Blood Urine Nitrite Ur Leukocyte Esterase Urine RBC Urine WBC Ur Squamous Epith Cells Urine Bacteria Hyaline Casts Nasal Screen MRSA (PCR) Nasal S. aureus Screen Nasal MRSA/S.aureus Interp Stool Occult Blood Random Vancomycin C. difficile Tox B Gene 05/31/23 05/31/23 05/31/23 11:08 15:57 17:56 WBC RBC Hgb Hct MCV MCH MCHC RDW Plt Count MPV Immature Gran % (Auto) Neut % (Auto) Lymph % (Auto) [place] % (Auto) Eos % (Auto) Baso % (Auto) Lymph # (Auto) [place] # (Auto) Eos # (Auto) Baso # (Auto) Abs Immat Gran (auto) Absolute Neuts (auto) Absolute Nucleated RBC Nucleated RBC % (auto) Neutrophils % (Manual) Band Neutrophils % Lymphocytes % (Manual) Atypical Lymphs % (Man) Monocytes % (Manual) Eosinophils % (Manual) Basophils % (Manual) Metamyelocytes % Myelocytes % Abs Neuts (Manual) Lymphocytes # (Manual) Atyp Lymphs # (Manual) Monocytes # (Manual) Eosinophils # (Manual) Basophils # (Manual) Metamyelocytes # Myelocytes # Toxic Granulation Toxic Vacuolation Dohle Bodies Platelet Estimate Large Platelets Plt Morphology Comment RBC Morphology Polychromasia Hypochromasia Tear Drop Cells [place] Cells PT INR APTT D-Dimer High Sensitivty VBG pH VBG pCO2 VBG pO2 VBG HCO3 VBG O2 Saturation VBG Base Excess Sodium Potassium Chloride Carbon Dioxide Anion Gap BUN Creatinine Estim Creat Clear Calc Estimated GFR POC Glucose 195 H 199 H Random Glucose Fasting Glucose Lactic Acid Lactic Acid F/U @ 2Hr Lactic Acid F/U @ 4Hr Calcium Phosphorus Magnesium Total Bilirubin AST ALT Alkaline Phosphatase Troponin I High Sens C-Reactive Protein Total Protein Albumin TSH Urine Color Urine Appearance Urine pH Ur Specific [place] Urine Protein Urine Glucose (UA) Urine Ketones Urine Blood Urine Nitrite Ur Leukocyte Esterase Urine RBC Urine WBC Ur Squamous Epith Cells Urine Bacteria Hyaline Casts Nasal Screen MRSA (PCR) Nasal S. aureus Screen Nasal MRSA/S.aureus Interp Stool Occult Blood Random Vancomycin 12.8 L C. difficile Tox B Gene 05/31/23 05/31/23 06/01/23 20:42 20:55 04:51 WBC 14.0 H RBC 3.70 L Hgb 10.2 L Hct 29.7 L MCV 80.3 MCH 27.6 MCHC 34.3 RDW 14.3 Plt Count 186 MPV 10.1 Immature Gran % (Auto) Cancelled Neut % (Auto) Cancelled Lymph % (Auto) Cancelled [place] % (Auto) Cancelled Eos % (Auto) Cancelled Baso % (Auto) Cancelled Lymph # (Auto) Cancelled [place] # (Auto) Cancelled Eos # (Auto) Cancelled Baso # (Auto) Cancelled Abs Immat Gran (auto) Cancelled Absolute Neuts (auto) Cancelled Absolute Nucleated RBC 0.020 H Nucleated RBC % (auto) 0.1 Neutrophils % (Manual) 62 Band Neutrophils % 14 H Lymphocytes % (Manual) 9 L Atypical Lymphs % (Man) Monocytes % (Manual) 6 Eosinophils % (Manual) 1 Basophils % (Manual) Metamyelocytes % 7 Myelocytes % 1 Abs Neuts (Manual) 10.6 H Lymphocytes # (Manual) 1.3 Atyp Lymphs # (Manual) Monocytes # (Manual) 0.8 Eosinophils # (Manual) 0.1 Basophils # (Manual) Metamyelocytes # 1.0 Myelocytes # 0.1 Toxic Granulation Toxic Vacuolation Dohle Bodies PRESENT Platelet Estimate NORMAL Large Platelets Plt Morphology Comment NORMAL RBC Morphology NORMAL Polychromasia Hypochromasia Tear Drop Cells [place] Cells PT INR APTT D-Dimer High Sensitivty VBG pH VBG pCO2 VBG pO2 VBG HCO3 VBG O2 Saturation VBG Base Excess Sodium 136 Potassium 3.3 Chloride 107 Carbon Dioxide 22 Anion Gap 10 L BUN 14 Creatinine 0.78 Estim Creat Clear Calc 76.3 Estimated GFR > 60 POC Glucose 272 H Random Glucose 198 H Fasting Glucose Lactic Acid Lactic Acid F/U @ 2Hr Lactic Acid F/U @ 4Hr Calcium 7.5 L Phosphorus 2.5 L Magnesium 1.8 Total Bilirubin AST ALT Alkaline Phosphatase Troponin I High Sens C-Reactive Protein Total Protein Albumin 2.1 L TSH Urine Color Urine Appearance Urine pH Ur Specific [place] Urine Protein Urine Glucose (UA) Urine Ketones Urine Blood Urine Nitrite Ur Leukocyte Esterase Urine RBC Urine WBC Ur Squamous Epith Cells Urine Bacteria Hyaline Casts Nasal Screen MRSA (PCR) Nasal S. aureus Screen Nasal MRSA/S.aureus Interp Stool Occult Blood Random Vancomycin C. difficile Tox B Gene 06/01/23 06/01/23 06/01/23 07:37 12:56 15:43 WBC RBC Hgb Hct MCV MCH MCHC RDW Plt Count MPV Immature Gran % (Auto) Neut % (Auto) Lymph % (Auto) [place] % (Auto) Eos % (Auto) Baso % (Auto) Lymph # (Auto) [place] # (Auto) Eos # (Auto) Baso # (Auto) Abs Immat Gran (auto) Absolute Neuts (auto) Absolute Nucleated RBC Nucleated RBC % (auto) Neutrophils % (Manual) Band Neutrophils % Lymphocytes % (Manual) Atypical Lymphs % (Man) Monocytes % (Manual) Eosinophils % (Manual) Basophils % (Manual) Metamyelocytes % Myelocytes % Abs Neuts (Manual) Lymphocytes # (Manual) Atyp Lymphs # (Manual) Monocytes # (Manual) Eosinophils # (Manual) Basophils # (Manual) Metamyelocytes # Myelocytes # Toxic Granulation Toxic Vacuolation Dohle Bodies Platelet Estimate Large Platelets Plt Morphology Comment RBC Morphology Polychromasia Hypochromasia Tear Drop Cells [place] Cells PT INR APTT D-Dimer High Sensitivty VBG pH VBG pCO2 VBG pO2 VBG HCO3 VBG O2 Saturation VBG Base Excess Sodium Potassium Chloride Carbon Dioxide Anion Gap BUN Creatinine Estim Creat Clear Calc Estimated GFR POC Glucose 180 H 189 H 177 H Random Glucose Fasting Glucose Lactic Acid Lactic Acid F/U @ 2Hr Lactic Acid F/U @ 4Hr Calcium Phosphorus Magnesium Total Bilirubin AST ALT Alkaline Phosphatase Troponin I High Sens C-Reactive Protein Total Protein Albumin TSH Urine Color Urine Appearance Urine pH Ur Specific [place] Urine Protein Urine Glucose (UA) Urine Ketones Urine Blood Urine Nitrite Ur Leukocyte Esterase Urine RBC Urine WBC Ur Squamous Epith Cells Urine Bacteria Hyaline Casts Nasal Screen MRSA (PCR) Nasal S. aureus Screen Nasal MRSA/S.aureus Interp Stool Occult Blood Random Vancomycin C. difficile Tox B Gene 06/01/23 06/01/23 06/02/23 18:06 20:37 05:09 WBC Cancelled RBC Hgb Hct MCV MCH MCHC RDW Plt Count MPV Immature Gran % (Auto) Neut % (Auto) Lymph % (Auto) [place] % (Auto) Eos % (Auto) Baso % (Auto) Lymph # (Auto) [place] # (Auto) Eos # (Auto) Baso # (Auto) Abs Immat Gran (auto) Absolute Neuts (auto) Absolute Nucleated RBC Nucleated RBC % (auto) Neutrophils % (Manual) Band Neutrophils % Lymphocytes % (Manual) Atypical Lymphs % (Man) Monocytes % (Manual) Eosinophils % (Manual) Basophils % (Manual) Metamyelocytes % Myelocytes % Abs Neuts (Manual) Lymphocytes # (Manual) Atyp Lymphs # (Manual) Monocytes # (Manual) Eosinophils # (Manual) Basophils # (Manual) Metamyelocytes # Myelocytes # Toxic Granulation Toxic Vacuolation Dohle Bodies Platelet Estimate Large Platelets Plt Morphology Comment RBC Morphology Polychromasia Hypochromasia Tear Drop Cells [place] Cells PT INR APTT D-Dimer High Sensitivty VBG pH VBG pCO2 VBG pO2 VBG HCO3 VBG O2 Saturation VBG Base Excess Sodium Potassium Chloride Carbon Dioxide Anion Gap BUN Creatinine Estim Creat Clear Calc Estimated GFR POC Glucose 170 H Random Glucose Fasting Glucose Lactic Acid Lactic Acid F/U @ 2Hr Lactic Acid F/U @ 4Hr Calcium Phosphorus Magnesium Total Bilirubin AST ALT Alkaline Phosphatase Troponin I High Sens C-Reactive Protein Total Protein Albumin TSH Urine Color Urine Appearance Urine pH Ur Specific [place] Urine Protein Urine Glucose (UA) Urine Ketones Urine Blood Urine Nitrite Ur Leukocyte Esterase Urine RBC Urine WBC Ur Squamous Epith Cells Urine Bacteria Hyaline Casts Nasal Screen MRSA (PCR) Nasal S. aureus Screen Nasal MRSA/S.aureus Interp Stool Occult Blood Random Vancomycin 8.4 L C. difficile Tox B Gene 06/02/23 06/02/23 06/02/23 05:09 05:09 05:09 WBC 18.5 H RBC Cancelled 3.80 L Hgb Cancelled 10.2 L Hct Cancelled MCV MCH MCHC RDW Plt Count MPV Immature Gran % (Auto) Neut % (Auto) Lymph % (Auto) [place] % (Auto) Eos % (Auto) Baso % (Auto) Lymph # (Auto) [place] # (Auto) Eos # (Auto) Baso # (Auto) Abs Immat Gran (auto) Absolute Neuts (auto) Absolute Nucleated RBC Nucleated RBC % (auto) Neutrophils % (Manual) Band Neutrophils % Lymphocytes % (Manual) Atypical Lymphs % (Man) Monocytes % (Manual) Eosinophils % (Manual) Basophils % (Manual) Metamyelocytes % Myelocytes % Abs Neuts (Manual) Lymphocytes # (Manual) Atyp Lymphs # (Manual) Monocytes # (Manual) Eosinophils # (Manual) Basophils # (Manual) Metamyelocytes # Myelocytes # Toxic Granulation Toxic Vacuolation Dohle Bodies Platelet Estimate Large Platelets Plt Morphology Comment RBC Morphology Polychromasia Hypochromasia Tear Drop Cells [place] Cells PT INR APTT D-Dimer High Sensitivty VBG pH VBG pCO2 VBG pO2 VBG HCO3 VBG O2 Saturation VBG Base Excess Sodium Potassium Chloride Carbon Dioxide Anion Gap BUN Creatinine Estim Creat Clear Calc Estimated GFR POC Glucose Random Glucose Fasting Glucose Lactic Acid Lactic Acid F/U @ 2Hr Lactic Acid F/U @ 4Hr Calcium Phosphorus Magnesium Total Bilirubin AST ALT Alkaline Phosphatase Troponin I High Sens C-Reactive Protein Total Protein Albumin TSH Urine Color Urine Appearance Urine pH Ur Specific [place] Urine Protein Urine Glucose (UA) Urine Ketones Urine Blood Urine Nitrite Ur Leukocyte Esterase Urine RBC Urine WBC Ur Squamous Epith Cells Urine Bacteria Hyaline Casts Nasal Screen MRSA (PCR) Nasal S. aureus Screen Nasal MRSA/S.aureus Interp Stool Occult Blood Random Vancomycin C. difficile Tox B Gene 06/02/23 06/02/23 06/02/23 05:09 05:09 05:09 WBC RBC Hgb Hct 30.9 L MCV Cancelled 81.3 MCH Cancelled 26.8 L MCHC Cancelled RDW Plt Count MPV Immature Gran % (Auto) Neut % (Auto) Lymph % (Auto) [place] % (Auto) Eos % (Auto) Baso % (Auto) Lymph # (Auto) [place] # (Auto) Eos # (Auto) Baso # (Auto) Abs Immat Gran (auto) Absolute Neuts (auto) Absolute Nucleated RBC Nucleated RBC % (auto) Neutrophils % (Manual) Band Neutrophils % Lymphocytes % (Manual) Atypical Lymphs % (Man) Monocytes % (Manual) Eosinophils % (Manual) Basophils % (Manual) Metamyelocytes % Myelocytes % Abs Neuts (Manual) Lymphocytes # (Manual) Atyp Lymphs # (Manual) Monocytes # (Manual) Eosinophils # (Manual) Basophils # (Manual) Metamyelocytes # Myelocytes # Toxic Granulation Toxic Vacuolation Dohle Bodies Platelet Estimate Large Platelets Plt Morphology Comment RBC Morphology Polychromasia Hypochromasia Tear Drop Cells [place] Cells PT INR APTT D-Dimer High Sensitivty VBG pH VBG pCO2 VBG pO2 VBG HCO3 VBG O2 Saturation VBG Base Excess Sodium Potassium Chloride Carbon Dioxide Anion Gap BUN Creatinine Estim Creat Clear Calc Estimated GFR POC Glucose Random Glucose Fasting Glucose Lactic Acid Lactic Acid F/U @ 2Hr Lactic Acid F/U @ 4Hr Calcium Phosphorus Magnesium Total Bilirubin AST ALT Alkaline Phosphatase Troponin I High Sens C-Reactive Protein Total Protein Albumin TSH Urine Color Urine Appearance Urine pH Ur Specific [place] Urine Protein Urine Glucose (UA) Urine Ketones Urine Blood Urine Nitrite Ur Leukocyte Esterase Urine RBC Urine WBC Ur Squamous Epith Cells Urine Bacteria Hyaline Casts Nasal Screen MRSA (PCR) Nasal S. aureus Screen Nasal MRSA/S.aureus Interp Stool Occult Blood Random Vancomycin C. difficile Tox B Gene 06/02/23 06/02/23 06/02/23 05:09 05:09 05:09 WBC RBC Hgb Hct MCV MCH MCHC 33.0 RDW Cancelled 14.8 Plt Count Cancelled 210 MPV Cancelled Immature Gran % (Auto) Neut % (Auto) Lymph % (Auto) [place] % (Auto) Eos % (Auto) Baso % (Auto) Lymph # (Auto) [place] # (Auto) Eos # (Auto) Baso # (Auto) Abs Immat Gran (auto) Absolute Neuts (auto) Absolute Nucleated RBC Nucleated RBC % (auto) Neutrophils % (Manual) Band Neutrophils % Lymphocytes % (Manual) Atypical Lymphs % (Man) Monocytes % (Manual) Eosinophils % (Manual) Basophils % (Manual) Metamyelocytes % Myelocytes % Abs Neuts (Manual) Lymphocytes # (Manual) Atyp Lymphs # (Manual) Monocytes # (Manual) Eosinophils # (Manual) Basophils # (Manual) Metamyelocytes # Myelocytes # Toxic Granulation Toxic Vacuolation Dohle Bodies Platelet Estimate Large Platelets Plt Morphology Comment RBC Morphology Polychromasia Hypochromasia Tear Drop Cells [place] Cells PT INR APTT D-Dimer High Sensitivty VBG pH VBG pCO2 VBG pO2 VBG HCO3 VBG O2 Saturation VBG Base Excess Sodium Potassium Chloride Carbon Dioxide Anion Gap BUN Creatinine Estim Creat Clear Calc Estimated GFR POC Glucose Random Glucose Fasting Glucose Lactic Acid Lactic Acid F/U @ 2Hr Lactic Acid F/U @ 4Hr Calcium Phosphorus Magnesium Total Bilirubin AST ALT Alkaline Phosphatase Troponin I High Sens C-Reactive Protein Total Protein Albumin TSH Urine Color Urine Appearance Urine pH Ur Specific [place] Urine Protein Urine Glucose (UA) Urine Ketones Urine Blood Urine Nitrite Ur Leukocyte Esterase Urine RBC Urine WBC Ur Squamous Epith Cells Urine Bacteria Hyaline Casts Nasal Screen MRSA (PCR) Nasal S. aureus Screen Nasal MRSA/S.aureus Interp Stool Occult Blood Random Vancomycin C. difficile Tox B Gene 06/02/23 06/02/23 06/02/23 05:09 05:09 05:09 WBC RBC Hgb Hct MCV MCH MCHC RDW Plt Count MPV 10.4 Immature Gran % (Auto) Cancelled Cancelled Neut % (Auto) Cancelled Cancelled Lymph % (Auto) Cancelled [place] % (Auto) Eos % (Auto) Baso % (Auto) Lymph # (Auto) [place] # (Auto) Eos # (Auto) Baso # (Auto) Abs Immat Gran (auto) Absolute Neuts (auto) Absolute Nucleated RBC Nucleated RBC % (auto) Neutrophils % (Manual) Band Neutrophils % Lymphocytes % (Manual) Atypical Lymphs % (Man) Monocytes % (Manual) Eosinophils % (Manual) Basophils % (Manual) Metamyelocytes % Myelocytes % Abs Neuts (Manual) Lymphocytes # (Manual) Atyp Lymphs # (Manual) Monocytes # (Manual) Eosinophils # (Manual) Basophils # (Manual) Metamyelocytes # Myelocytes # Toxic Granulation Toxic Vacuolation Dohle Bodies Platelet Estimate Large Platelets Plt Morphology Comment RBC Morphology Polychromasia Hypochromasia Tear Drop Cells [place] Cells PT INR APTT D-Dimer High Sensitivty VBG pH VBG pCO2 VBG pO2 VBG HCO3 VBG O2 Saturation VBG Base Excess Sodium Potassium Chloride Carbon Dioxide Anion Gap BUN Creatinine Estim Creat Clear Calc Estimated GFR POC Glucose Random Glucose Fasting Glucose Lactic Acid Lactic Acid F/U @ 2Hr Lactic Acid F/U @ 4Hr Calcium Phosphorus Magnesium Total Bilirubin AST ALT Alkaline Phosphatase Troponin I High Sens C-Reactive Protein Total Protein Albumin TSH Urine Color Urine Appearance Urine pH Ur Specific [place] Urine Protein Urine Glucose (UA) Urine Ketones Urine Blood Urine Nitrite Ur Leukocyte Esterase Urine RBC Urine WBC Ur Squamous Epith Cells Urine Bacteria Hyaline Casts Nasal Screen MRSA (PCR) Nasal S. aureus Screen Nasal MRSA/S.aureus Interp Stool Occult Blood Random Vancomycin C. difficile Tox B Gene 06/02/23 06/02/23 06/02/23 05:09 05:09 05:09 WBC RBC Hgb Hct MCV MCH MCHC RDW Plt Count MPV Immature Gran % (Auto) Neut % (Auto) Lymph % (Auto) Cancelled [place] % (Auto) Cancelled Cancelled Eos % (Auto) Cancelled Cancelled Baso % (Auto) Cancelled Lymph # (Auto) [place] # (Auto) Eos # (Auto) Baso # (Auto) Abs Immat Gran (auto) Absolute Neuts (auto) Absolute Nucleated RBC Nucleated RBC % (auto) Neutrophils % (Manual) Band Neutrophils % Lymphocytes % (Manual) Atypical Lymphs % (Man) Monocytes % (Manual) Eosinophils % (Manual) Basophils % (Manual) Metamyelocytes % Myelocytes % Abs Neuts (Manual) Lymphocytes # (Manual) Atyp Lymphs # (Manual) Monocytes # (Manual) Eosinophils # (Manual) Basophils # (Manual) Metamyelocytes # Myelocytes # Toxic Granulation Toxic Vacuolation Dohle Bodies Platelet Estimate Large Platelets Plt Morphology Comment RBC Morphology Polychromasia Hypochromasia Tear Drop Cells [place] Cells PT INR APTT D-Dimer High Sensitivty VBG pH VBG pCO2 VBG pO2 VBG HCO3 VBG O2 Saturation VBG Base Excess Sodium Potassium Chloride Carbon Dioxide Anion Gap BUN Creatinine Estim Creat Clear Calc Estimated GFR POC Glucose Random Glucose Fasting Glucose Lactic Acid Lactic Acid F/U @ 2Hr Lactic Acid F/U @ 4Hr Calcium Phosphorus Magnesium Total Bilirubin AST ALT Alkaline Phosphatase Troponin I High Sens C-Reactive Protein Total Protein Albumin TSH Urine Color Urine Appearance Urine pH Ur Specific [place] Urine Protein Urine Glucose (UA) Urine Ketones Urine Blood Urine Nitrite Ur Leukocyte Esterase Urine RBC Urine WBC Ur Squamous Epith Cells Urine Bacteria Hyaline Casts Nasal Screen MRSA (PCR) Nasal S. aureus Screen Nasal MRSA/S.aureus Interp Stool Occult Blood Random Vancomycin C. difficile Tox B Gene 06/02/23 06/02/23 06/02/23 05:09 05:09 05:09 WBC RBC Hgb Hct MCV MCH MCHC RDW Plt Count MPV Immature Gran % (Auto) Neut % (Auto) Lymph % (Auto) [place] % (Auto) Eos % (Auto) Baso % (Auto) Cancelled Lymph # (Auto) Cancelled Cancelled [place] # (Auto) Cancelled Cancelled Eos # (Auto) Cancelled Baso # (Auto) Abs Immat Gran (auto) Absolute Neuts (auto) Absolute Nucleated RBC Nucleated RBC % (auto) Neutrophils % (Manual) Band Neutrophils % Lymphocytes % (Manual) Atypical Lymphs % (Man) Monocytes % (Manual) Eosinophils % (Manual) Basophils % (Manual) Metamyelocytes % Myelocytes % Abs Neuts (Manual) Lymphocytes # (Manual) Atyp Lymphs # (Manual) Monocytes # (Manual) Eosinophils # (Manual) Basophils # (Manual) Metamyelocytes # Myelocytes # Toxic Granulation Toxic Vacuolation Dohle Bodies Platelet Estimate Large Platelets Plt Morphology Comment RBC Morphology Polychromasia Hypochromasia Tear Drop Cells [place] Cells PT INR APTT D-Dimer High Sensitivty VBG pH VBG pCO2 VBG pO2 VBG HCO3 VBG O2 Saturation VBG Base Excess Sodium Potassium Chloride Carbon Dioxide Anion Gap BUN Creatinine Estim Creat Clear Calc Estimated GFR POC Glucose Random Glucose Fasting Glucose Lactic Acid Lactic Acid F/U @ 2Hr Lactic Acid F/U @ 4Hr Calcium Phosphorus Magnesium Total Bilirubin AST ALT Alkaline Phosphatase Troponin I High Sens C-Reactive Protein Total Protein Albumin TSH Urine Color Urine Appearance Urine pH Ur Specific [place] Urine Protein Urine Glucose (UA) Urine Ketones Urine Blood Urine Nitrite Ur Leukocyte Esterase Urine RBC Urine WBC Ur Squamous Epith Cells Urine Bacteria Hyaline Casts Nasal Screen MRSA (PCR) Nasal S. aureus Screen Nasal MRSA/S.aureus Interp Stool Occult Blood Random Vancomycin C. difficile Tox B Gene 06/02/23 06/02/23 06/02/23 05:09 05:09 05:09 WBC RBC Hgb Hct MCV MCH MCHC RDW Plt Count MPV Immature Gran % (Auto) Neut % (Auto) Lymph % (Auto) [place] % (Auto) Eos % (Auto) Baso % (Auto) Lymph # (Auto) [place] # (Auto) Eos # (Auto) Cancelled Baso # (Auto) Cancelled Cancelled Abs Immat Gran (auto) Cancelled Cancelled Absolute Neuts (auto) Cancelled Absolute Nucleated RBC Nucleated RBC % (auto) Neutrophils % (Manual) Band Neutrophils % Lymphocytes % (Manual) Atypical Lymphs % (Man) Monocytes % (Manual) Eosinophils % (Manual) Basophils % (Manual) Metamyelocytes % Myelocytes % Abs Neuts (Manual) Lymphocytes # (Manual) Atyp Lymphs # (Manual) Monocytes # (Manual) Eosinophils # (Manual) Basophils # (Manual) Metamyelocytes # Myelocytes # Toxic Granulation Toxic Vacuolation Dohle Bodies Platelet Estimate Large Platelets Plt Morphology Comment RBC Morphology Polychromasia Hypochromasia Tear Drop Cells [place] Cells PT INR APTT D-Dimer High Sensitivty VBG pH VBG pCO2 VBG pO2 VBG HCO3 VBG O2 Saturation VBG Base Excess Sodium Potassium Chloride Carbon Dioxide Anion Gap BUN Creatinine Estim Creat Clear Calc Estimated GFR POC Glucose Random Glucose Fasting Glucose Lactic Acid Lactic Acid F/U @ 2Hr Lactic Acid F/U @ 4Hr Calcium Phosphorus Magnesium Total Bilirubin AST ALT Alkaline Phosphatase Troponin I High Sens C-Reactive Protein Total Protein Albumin TSH Urine Color Urine Appearance Urine pH Ur Specific [place] Urine Protein Urine Glucose (UA) Urine Ketones Urine Blood Urine Nitrite Ur Leukocyte Esterase Urine RBC Urine WBC Ur Squamous Epith Cells Urine Bacteria Hyaline Casts Nasal Screen MRSA (PCR) Nasal S. aureus Screen Nasal MRSA/S.aureus Interp Stool Occult Blood Random Vancomycin C. difficile Tox B Gene 06/02/23 06/02/23 06/02/23 05:09 05:09 05:09 WBC RBC Hgb Hct MCV MCH MCHC RDW Plt Count MPV Immature Gran % (Auto) Neut % (Auto) Lymph % (Auto) [place] % (Auto) Eos % (Auto) Baso % (Auto) Lymph # (Auto) [place] # (Auto) Eos # (Auto) Baso # (Auto) Abs Immat Gran (auto) Absolute Neuts (auto) Cancelled Absolute Nucleated RBC Cancelled 0.030 H Nucleated RBC % (auto) Cancelled 0.2 Neutrophils % (Manual) 65 Band Neutrophils % 15 H Lymphocytes % (Manual) 10 L Atypical Lymphs % (Man) Monocytes % (Manual) 5 Eosinophils % (Manual) 1 Basophils % (Manual) Metamyelocytes % 3 Myelocytes % 1 Abs Neuts (Manual) 14.8 H Lymphocytes # (Manual) 1.9 Atyp Lymphs # (Manual) Monocytes # (Manual) 0.9 Eosinophils # (Manual) 0.2 Basophils # (Manual) Metamyelocytes # 0.6 Myelocytes # 0.2 Toxic Granulation Toxic Vacuolation Dohle Bodies PRESENT Platelet Estimate NORMAL Large Platelets Plt Morphology Comment NORMAL RBC Morphology NOTED Polychromasia Hypochromasia 1+ (5-14) Tear Drop Cells [place] Cells PT INR APTT D-Dimer High Sensitivty VBG pH VBG pCO2 VBG pO2 VBG HCO3 VBG O2 Saturation VBG Base Excess Sodium 140 Potassium 3.7 Chloride 109 H Carbon Dioxide 25 Anion Gap 10 L BUN 12 Creatinine 0.82 Estim Creat Clear Calc 72.4 Estimated GFR > 60 POC Glucose Random Glucose 148 H Fasting Glucose Lactic Acid Lactic Acid F/U @ 2Hr Lactic Acid F/U @ 4Hr Calcium 8.1 L D Phosphorus 2.1 L Magnesium 1.9 Total Bilirubin 0.8 AST 35 H ALT 28 Alkaline Phosphatase 138 H Troponin I High Sens C-Reactive Protein Total Protein 5.0 L Albumin 2.6 L TSH Urine Color Urine Appearance Urine pH Ur Specific [place] Urine Protein Urine Glucose (UA) Urine Ketones Urine Blood Urine Nitrite Ur Leukocyte Esterase Urine RBC Urine WBC Ur Squamous Epith Cells Urine Bacteria Hyaline Casts Nasal Screen MRSA (PCR) Nasal S. aureus Screen Nasal MRSA/S.aureus Interp Stool Occult Blood Random Vancomycin C. difficile Tox B Gene 06/02/23 06/02/23 06/02/23 07:25 11:32 16:12 WBC RBC Hgb Hct MCV MCH MCHC RDW Plt Count MPV Immature Gran % (Auto) Neut % (Auto) Lymph % (Auto) [place] % (Auto) Eos % (Auto) Baso % (Auto) Lymph # (Auto) [place] # (Auto) Eos # (Auto) Baso # (Auto) Abs Immat Gran (auto) Absolute Neuts (auto) Absolute Nucleated RBC Nucleated RBC % (auto) Neutrophils % (Manual) Band Neutrophils % Lymphocytes % (Manual) Atypical Lymphs % (Man) Monocytes % (Manual) Eosinophils % (Manual) Basophils % (Manual) Metamyelocytes % Myelocytes % Abs Neuts (Manual) Lymphocytes # (Manual) Atyp Lymphs # (Manual) Monocytes # (Manual) Eosinophils # (Manual) Basophils # (Manual) Metamyelocytes # Myelocytes # Toxic Granulation Toxic Vacuolation Dohle Bodies Platelet Estimate Large Platelets Plt Morphology Comment RBC Morphology Polychromasia Hypochromasia Tear Drop Cells [place] Cells PT INR APTT D-Dimer High Sensitivty VBG pH VBG pCO2 VBG pO2 VBG HCO3 VBG O2 Saturation VBG Base Excess Sodium Potassium Chloride Carbon Dioxide Anion Gap BUN Creatinine Estim Creat Clear Calc Estimated GFR POC Glucose 123 H 148 H 212 H Random Glucose Fasting Glucose Lactic Acid Lactic Acid F/U @ 2Hr Lactic Acid F/U @ 4Hr Calcium Phosphorus Magnesium Total Bilirubin AST ALT Alkaline Phosphatase Troponin I High Sens C-Reactive Protein Total Protein Albumin TSH Urine Color Urine Appearance Urine pH Ur Specific [place] Urine Protein Urine Glucose (UA) Urine Ketones Urine Blood Urine Nitrite Ur Leukocyte Esterase Urine RBC Urine WBC Ur Squamous Epith Cells Urine Bacteria Hyaline Casts Nasal Screen MRSA (PCR) Nasal S. aureus Screen Nasal MRSA/S.aureus Interp Stool Occult Blood Random Vancomycin C. difficile Tox B Gene 06/02/23 06/03/23 06/03/23 20:30 05:43 07:33 WBC 20.2 H RBC 3.94 L Hgb 10.7 L Hct 32.8 L MCV 83.2 MCH 27.2 MCHC 32.6 RDW 14.9 Plt Count 236 MPV 10.3 Immature Gran % (Auto) Cancelled Neut % (Auto) Cancelled Lymph % (Auto) Cancelled [place] % (Auto) Cancelled Eos % (Auto) Cancelled Baso % (Auto) Cancelled Lymph # (Auto) Cancelled [place] # (Auto) Cancelled Eos # (Auto) Cancelled Baso # (Auto) Cancelled Abs Immat Gran (auto) Cancelled Absolute Neuts (auto) Cancelled Absolute Nucleated RBC 0.030 H Nucleated RBC % (auto) 0.1 Neutrophils % (Manual) 51 Band Neutrophils % 12 H Lymphocytes % (Manual) 15 L Atypical Lymphs % (Man) 3 Monocytes % (Manual) 7 Eosinophils % (Manual) 4 Basophils % (Manual) Metamyelocytes % 8 Myelocytes % Abs Neuts (Manual) 12.7 H Lymphocytes # (Manual) 3.0 Atyp Lymphs # (Manual) 0.6 Monocytes # (Manual) 1.4 H Eosinophils # (Manual) 0.8 H Basophils # (Manual) Metamyelocytes # 1.6 Myelocytes # Toxic Granulation Toxic Vacuolation Dohle Bodies Platelet Estimate NORMAL Large Platelets Plt Morphology Comment NORMAL RBC Morphology NOTED Polychromasia 1+ (0-2) Hypochromasia 1+ (5-14) Tear Drop Cells [place] Cells PT INR APTT D-Dimer High Sensitivty VBG pH VBG pCO2 VBG pO2 VBG HCO3 VBG O2 Saturation VBG Base Excess Sodium 140 Potassium 3.3 Chloride 106 Carbon Dioxide 25 Anion Gap 12 BUN 10 Creatinine 0.72 Estim Creat Clear Calc 82.5 Estimated GFR > 60 POC Glucose 120 H 125 H Random Glucose 133 H Fasting Glucose Lactic Acid Lactic Acid F/U @ 2Hr Lactic Acid F/U @ 4Hr Calcium 8.1 L Phosphorus Magnesium Total Bilirubin AST ALT Alkaline Phosphatase Troponin I High Sens C-Reactive Protein Total Protein Albumin TSH Urine Color Urine Appearance Urine pH Ur Specific [place] Urine Protein Urine Glucose (UA) Urine Ketones Urine Blood Urine Nitrite Ur Leukocyte Esterase Urine RBC Urine WBC Ur Squamous Epith Cells Urine Bacteria Hyaline Casts Nasal Screen MRSA (PCR) Nasal S. aureus Screen Nasal MRSA/S.aureus Interp Stool Occult Blood Random Vancomycin C. difficile Tox B Gene 06/03/23 06/03/23 06/03/23 11:23 16:11 19:55 WBC RBC Hgb Hct MCV MCH MCHC RDW Plt Count MPV Immature Gran % (Auto) Neut % (Auto) Lymph % (Auto) [place] % (Auto) Eos % (Auto) Baso % (Auto) Lymph # (Auto) [place] # (Auto) Eos # (Auto) Baso # (Auto) Abs Immat Gran (auto) Absolute Neuts (auto) Absolute Nucleated RBC Nucleated RBC % (auto) Neutrophils % (Manual) Band Neutrophils % Lymphocytes % (Manual) Atypical Lymphs % (Man) Monocytes % (Manual) Eosinophils % (Manual) Basophils % (Manual) Metamyelocytes % Myelocytes % Abs Neuts (Manual) Lymphocytes # (Manual) Atyp Lymphs # (Manual) Monocytes # (Manual) Eosinophils # (Manual) Basophils # (Manual) Metamyelocytes # Myelocytes # Toxic Granulation Toxic Vacuolation Dohle Bodies Platelet Estimate Large Platelets Plt Morphology Comment RBC Morphology Polychromasia Hypochromasia Tear Drop Cells [place] Cells PT INR APTT D-Dimer High Sensitivty VBG pH VBG pCO2 VBG pO2 VBG HCO3 VBG O2 Saturation VBG Base Excess Sodium Potassium Chloride Carbon Dioxide Anion Gap BUN Creatinine Estim Creat Clear Calc Estimated GFR POC Glucose 133 H 213 H Random Glucose Fasting Glucose Lactic Acid Lactic Acid F/U @ 2Hr Lactic Acid F/U @ 4Hr Calcium Phosphorus Magnesium Total Bilirubin AST ALT Alkaline Phosphatase Troponin I High Sens C-Reactive Protein Total Protein Albumin TSH Urine Color Urine Appearance Urine pH Ur Specific [place] Urine Protein Urine Glucose (UA) Urine Ketones Urine Blood Urine Nitrite Ur Leukocyte Esterase Urine RBC Urine WBC Ur Squamous Epith Cells Urine Bacteria Hyaline Casts Nasal Screen MRSA (PCR) Nasal S. aureus Screen Nasal MRSA/S.aureus Interp Stool Occult Blood Random Vancomycin C. difficile Tox B Gene NEGATIVE 06/03/23 06/04/23 06/04/23 20:52 05:45 07:42 WBC 20.7 H RBC 3.99 L Hgb 10.8 L Hct 32.7 L MCV 82.0 MCH 27.1 MCHC 33.0 RDW 14.6 Plt Count 303 D MPV 9.9 Immature Gran % (Auto) Cancelled Neut % (Auto) Cancelled Lymph % (Auto) Cancelled [place] % (Auto) Cancelled Eos % (Auto) Cancelled Baso % (Auto) Cancelled Lymph # (Auto) Cancelled [place] # (Auto) Cancelled Eos # (Auto) Cancelled Baso # (Auto) Cancelled Abs Immat Gran (auto) Cancelled Absolute Neuts (auto) Cancelled Absolute Nucleated RBC 0.030 H Nucleated RBC % (auto) 0.1 Neutrophils % (Manual) 66 Band Neutrophils % 14 H Lymphocytes % (Manual) 6 L Atypical Lymphs % (Man) 2 Monocytes % (Manual) 6 Eosinophils % (Manual) Basophils % (Manual) Metamyelocytes % 4 Myelocytes % 2 Abs Neuts (Manual) 16.6 H Lymphocytes # (Manual) 1.2 Atyp Lymphs # (Manual) 0.4 Monocytes # (Manual) 1.2 Eosinophils # (Manual) Basophils # (Manual) Metamyelocytes # 0.8 Myelocytes # 0.4 Toxic Granulation Toxic Vacuolation Dohle Bodies Platelet Estimate NORMAL Large Platelets PRESENT Plt Morphology Comment NOTED RBC Morphology NOTED Polychromasia 1+ (0-2) Hypochromasia Tear Drop Cells [place] Cells PT INR APTT D-Dimer High Sensitivty VBG pH VBG pCO2 VBG pO2 VBG HCO3 VBG O2 Saturation VBG Base Excess Sodium 141 Potassium 3.1 L Chloride 104 Carbon Dioxide 27 Anion Gap 13 BUN 6 L Creatinine 0.60 Estim Creat Clear Calc 98.9 Estimated GFR > 60 POC Glucose 159 H 140 H Random Glucose 155 H Fasting Glucose Lactic Acid Lactic Acid F/U @ 2Hr Lactic Acid F/U @ 4Hr Calcium 8.0 L Phosphorus Magnesium Total Bilirubin AST ALT Alkaline Phosphatase Troponin I High Sens C-Reactive Protein Total Protein Albumin TSH Urine Color Urine Appearance Urine pH Ur Specific [place] Urine Protein Urine Glucose (UA) Urine Ketones Urine Blood Urine Nitrite Ur Leukocyte Esterase Urine RBC Urine WBC Ur Squamous Epith Cells Urine Bacteria Hyaline Casts Nasal Screen MRSA (PCR) Nasal S. aureus Screen Nasal MRSA/S.aureus Interp Stool Occult Blood Random Vancomycin C. difficile Tox B Gene 06/04/23 11:36 WBC RBC Hgb Hct MCV MCH MCHC RDW Plt Count MPV Immature Gran % (Auto) Neut % (Auto) Lymph % (Auto) [place] % (Auto) Eos % (Auto) Baso % (Auto) Lymph # (Auto) [place] # (Auto) Eos # (Auto) Baso # (Auto) Abs Immat Gran (auto) Absolute Neuts (auto) Absolute Nucleated RBC Nucleated RBC % (auto) Neutrophils % (Manual) Band Neutrophils % Lymphocytes % (Manual) Atypical Lymphs % (Man) Monocytes % (Manual) Eosinophils % (Manual) Basophils % (Manual) Metamyelocytes % Myelocytes % Abs Neuts (Manual) Lymphocytes # (Manual) Atyp Lymphs # (Manual) Monocytes # (Manual) Eosinophils # (Manual) Basophils # (Manual) Metamyelocytes # Myelocytes # Toxic Granulation Toxic Vacuolation Dohle Bodies Platelet Estimate Large Platelets Plt Morphology Comment RBC Morphology Polychromasia Hypochromasia Tear Drop Cells [place] Cells PT INR APTT D-Dimer High Sensitivty VBG pH VBG pCO2 VBG pO2 VBG HCO3 VBG O2 Saturation VBG Base Excess Sodium Potassium Chloride Carbon Dioxide Anion Gap BUN Creatinine Estim Creat Clear Calc Estimated GFR POC Glucose 156 H Random Glucose Fasting Glucose Lactic Acid Lactic Acid F/U @ 2Hr Lactic Acid F/U @ 4Hr Calcium Phosphorus Magnesium Total Bilirubin AST ALT Alkaline Phosphatase Troponin I High Sens C-Reactive Protein Total Protein Albumin TSH Urine Color Urine Appearance Urine pH Ur Specific [place] Urine Protein Urine Glucose (UA) Urine Ketones Urine Blood Urine Nitrite Ur Leukocyte Esterase Urine RBC Urine WBC Ur Squamous Epith Cells Urine Bacteria Hyaline Casts Nasal Screen MRSA (PCR) Nasal S. aureus Screen Nasal MRSA/S.aureus Interp Stool Occult Blood Random Vancomycin C. difficile Tox B Gene Airway Mallampati Class: II TM Dist: <=3cm Neck ROM: Limited Heart: rrr Lungs: cta Assessment and Plan Assessment Anesthesia Assessment: Anesthesia Plan Discussed Final Anesthetic Review Family History of Problems with Anesthesia: No History of Problems with Anesthesia: No NPO: Yes ASA Class: III Final Preanesthetic Review: Meds/Allgs Chart Reviewed, Consent Obtained/Reviewed and Anes Risks/Benef Reviewed Patient Risk: Intermediate Procedure Risk: Low Anesthetic Plan Anesthetic Plan: MAC: Disposition: Standard PACU
[2023-06-04 14:46] LABS: Glucose, Whole Blood 173 mg/dL (60-115)
--- NOTE | 2023-06-04 14:46 | PM.GIPN ---
Subjective Subjective Date of Service: 06/04/23 Interval History: ongoing left sided abdominal pain poor appetite and nausea passing stool and gas Critical Care Time (minutes): 0 Physical Exam Vital Signs: Vital Signs: Last Vital Signs Temp 97.0 F 06/04/23 14:22 Pulse 79 06/04/23 14:22 Resp 16 06/04/23 14:22 BP 173/73 H 06/04/23 14:22 Pulse Ox 98 06/04/23 14:22 O2 Del Method Nasal Cannula 06/04/23 14:22 O2 Flow Rate 2 06/04/23 14:22 FiO2 93 05/29/23 19:00 Oxygen Flow Rate 3 05/29/23 04:00 BMI result Body Mass Index 41.1 EXAM: GENERAL: The patient is well developed and nontoxic. VITAL SIGNS:see workflow HEENT: Nonicteric sclerae, PERRLA, EOMI. Oropharynx clear. Moist mucous membranes. Conjunctivae appear well perfused. No thyroid mass. CHEST: Chest wall is nontender. HEART: Regular rate and rhythm without murmurs. LUNGS: Clear to auscultation bilaterally. ABDOMEN: Soft, positive bowel sounds, tender LLQ, no organomegaly.no flank tenderness SKIN: No rash, no excessive bruising, petechiae, or purpura. NEUROLOGIC: Cranial nerves II-XII intact without motor/sensory deficit. Psych: normal affect Objective Data Labs 06/04/23 05:45 06/04/23 05:45 Labs: Laboratory Results - last 24 hr 06/03/23 06/03/23 06/03/23 16:11 19:55 20:52 WBC RBC Hgb Hct MCV MCH MCHC RDW Plt Count MPV Immature Gran % (Auto) Neut % (Auto) Lymph % (Auto) [place] % (Auto) Eos % (Auto) Baso % (Auto) Lymph # (Auto) [place] # (Auto) Eos # (Auto) Baso # (Auto) Abs Immat Gran (auto) Absolute Neuts (auto) Absolute Nucleated RBC Nucleated RBC % (auto) Neutrophils % (Manual) Band Neutrophils % Lymphocytes % (Manual) Atypical Lymphs % (Man) Monocytes % (Manual) Metamyelocytes % Myelocytes % Abs Neuts (Manual) Lymphocytes # (Manual) Atyp Lymphs # (Manual) Monocytes # (Manual) Metamyelocytes # Myelocytes # Platelet Estimate Large Platelets Plt Morphology Comment RBC Morphology Polychromasia Sodium Potassium Chloride Carbon Dioxide Anion Gap BUN Creatinine Estim Creat Clear Calc Estimated GFR POC Glucose 213 H 159 H Random Glucose Calcium C. difficile Tox B Gene NEGATIVE 06/04/23 06/04/23 06/04/23 05:45 07:42 11:36 WBC 20.7 H RBC 3.99 L Hgb 10.8 L Hct 32.7 L MCV 82.0 MCH 27.1 MCHC 33.0 RDW 14.6 Plt Count 303 D MPV 9.9 Immature Gran % (Auto) Cancelled Neut % (Auto) Cancelled Lymph % (Auto) Cancelled [place] % (Auto) Cancelled Eos % (Auto) Cancelled Baso % (Auto) Cancelled Lymph # (Auto) Cancelled [place] # (Auto) Cancelled Eos # (Auto) Cancelled Baso # (Auto) Cancelled Abs Immat Gran (auto) Cancelled Absolute Neuts (auto) Cancelled Absolute Nucleated RBC 0.030 H Nucleated RBC % (auto) 0.1 Neutrophils % (Manual) 66 Band Neutrophils % 14 H Lymphocytes % (Manual) 6 L Atypical Lymphs % (Man) 2 Monocytes % (Manual) 6 Metamyelocytes % 4 Myelocytes % 2 Abs Neuts (Manual) 16.6 H Lymphocytes # (Manual) 1.2 Atyp Lymphs # (Manual) 0.4 Monocytes # (Manual) 1.2 Metamyelocytes # 0.8 Myelocytes # 0.4 Platelet Estimate NORMAL Large Platelets PRESENT Plt Morphology Comment NOTED RBC Morphology NOTED Polychromasia 1+ (0-2) Sodium 141 Potassium 3.1 L Chloride 104 Carbon Dioxide 27 Anion Gap 13 BUN 6 L Creatinine 0.60 Estim Creat Clear Calc 98.9 Estimated GFR > 60 POC Glucose 140 H 156 H Random Glucose 155 H Calcium 8.0 L C. difficile Tox B Gene 06/04/23 14:42 WBC RBC Hgb Hct MCV MCH MCHC RDW Plt Count MPV Immature Gran % (Auto) Neut % (Auto) Lymph % (Auto) [place] % (Auto) Eos % (Auto) Baso % (Auto) Lymph # (Auto) [place] # (Auto) Eos # (Auto) Baso # (Auto) Abs Immat Gran (auto) Absolute Neuts (auto) Absolute Nucleated RBC Nucleated RBC % (auto) Neutrophils % (Manual) Band Neutrophils % Lymphocytes % (Manual) Atypical Lymphs % (Man) Monocytes % (Manual) Metamyelocytes % Myelocytes % Abs Neuts (Manual) Lymphocytes # (Manual) Atyp Lymphs # (Manual) Monocytes # (Manual) Metamyelocytes # Myelocytes # Platelet Estimate Large Platelets Plt Morphology Comment RBC Morphology Polychromasia Sodium Potassium Chloride Carbon Dioxide Anion Gap BUN Creatinine Estim Creat Clear Calc Estimated GFR POC Glucose 173 H Random Glucose Calcium C. difficile Tox B Gene Microbiology Microbiology Results: Microbiology 05/29/23 06:38 Blood - Venous Blood Culture - Final No growth after 5 days. 05/29/23 05:45 Blood - Venous Blood Culture - Final No growth after 5 days. 05/27/23 13:35 Urine Catheterized - Ramos Catheter Urine Culture - Final No growth. Procedures Date of Service Date of Service: 06/04/23 Progress Note: A&P Assessment and plan (1) Ischemic colitis: Status: Acute Plan 1/ colitis and ongoing abdominal pain, suspected from ischemic colitis, neg c diff, ddx: IBD, infectious (but not really responding to ABX) PLAN: 1/ can add trental 2/ sigmodioscopy and bx today to confirm ischemic colitis vs other etiology Time Spent With Patient Time: Total time managing care of this patient today ____ minutes. Quality Stroke Does the patient have a stroke diagnosis?: No VTE Prior VTE?: No VTE Risk Level:: Surgical - very high VTE Device Contraindication: N/A - Device Ordered VTE Drug Contraindication: N/A - Med Ordered
--- NOTE | 2023-06-04 14:49 | MHC.SHP ---
Pre-Procedural Eval Section A - 24 Hr Update-Section A only Date of Service: 06/04/23 The patient is an INPATIENT: Yes The patient has been examined within 24 hours of the surgical procedure. The History & Physical has been completed within 30 days and I have reviewed it.: Yes Section B - Complete if H&P > 30 days Chief Complaint: LTKA Allergies: Allergies Allergy/AdvReac Type Severity Reaction Status Date / Time hazelnut Allergy Mild per Verified 05/26/23 07:56 allergy skin test peanut Allergy Mild per Verified 05/26/23 07:56 allergy skin test Plan Diagnosis/Plan: Unchanged I have reviewed the history and physical and performed a pertinent physical examination on my patient. No changes have occurred unless specified. Time Spent With Patient Time: Total time managing care of this patient today ____ minutes.
--- NOTE | 2023-06-04 14:50 | W.PM.OPN ---
Operative Note Operative Note Date of Service: 06/04/23 Narrative: Procedure Description: Sigmoidoscopy Indication: colitis Anesthesia: MAC Sigmoidoscopy Instrument: Upper endoscope Colonoscopy Monitoring: Vital signs and clinical assessment, continuous EKG monitoring, Pulse oximetry, Carbon Dioxide monitoring and blood pressure monitoring were done throughout the procedure. Procedure: The patient was placed in the left lateral decubitis position and pre-procedure medications were administered. After a digital rectal examination of the ano-rectum, the video colonoscope was inserted into the rectum and advanced through the colon to the sigmoid colon The scope was slowly withdrawn in a retrograde panoramic fashion and the colon mucosa was carefully examined . Findings and interventions are described below. Procedure Difficulty: easy Findings: Transverse Colon: not reached Sigmoid Colon: thick slough covering mucosa, with areas that are exposed which are friable and inflammed--looks like it is healing--bx taken Rectum: thick slough and debris covering mucosa, retroflexion not done Anorectum - normal Colon preparation: fair Impression and Post Procedure Diagnosis: clinical appearance consistent with healing ischemic colitis Plan: cont with ABx and avoid overzealous BP control cont with trental Above findings were reviewed with the patient and relevant handouts were provided if indicated.
--- NOTE | 2023-06-04 15:38 | HO.PM.IMPN ---
Subjective Subjective Date of Service: 06/04/23 Interval History: seen and examined this morning follow up for colitis history obtained with the assistance of a [employer] reports ongoing lower abdominal pain no vomiting, persistent diarrhea Review of Systems Review of Systems: Yes all other systems are reviewed and are negative Constitutional Constitutional: Denies chills and Denies fever(s) Cardiovascular Cardiovascular: Denies dyspnea Respiratory Respiratory: Denies cough and Denies dyspnea Gastrointestinal Gastrointestinal: Reports abdominal pain, Reports diarrhea and Denies vomiting Physical Exam Vital Signs: Vital Signs: Last Vital Signs Temp 97.4 F 06/04/23 15:20 Pulse 86 06/04/23 15:20 Resp 12 06/04/23 15:20 BP 155/55 H 06/04/23 15:20 Pulse Ox 94 06/04/23 15:20 O2 Del Method Room Air 06/04/23 15:20 O2 Flow Rate 2 06/04/23 14:22 FiO2 93 05/29/23 19:00 Oxygen Flow Rate 3 05/29/23 04:00 BMI result Body Mass Index 41.1 Const: General: cooperative, comfortable, alert and awake Nutritional Appearance: obese Orientation/consciousness: patient oriented x3 Resp: Effort & Inspection: normal respiratory effort, able to speak in complete sentences, no respiratory distress and no use of accessory muscles Cardio: Rate: regular rate GI: Other: no guarding or rebound, +BS tenderness primarily left lower quadrant Inspection: No distended Palpation (GI): Soft to palpation Neuro: General: patient oriented x3 Objective Data Active Medications Acetaminophen (Acetaminophen 325 Mg Tablet) 975 mg PO Q6H PRN PRN Reason: Pain, Moderate(Pain Scale 4-6) Last Admin: 06/03/23 02:11 Dose: 975 mg Documented By: APRIL Albuterol Sulfate (Albuterol Sulfate 90 Mcg 8 Gm Inhaler) 2 puff INHALE RQ4H PRN PRN Reason: Wheezing Albuterol/Ipratropium (Albuterol/Iprat 2.5/0.5mg 3 Ml Ampul.Neb) 3 ml INHALE RQ4H WHILE AWAKE PRN PRN Reason: Wheezing Clonidine HCl (Clonidine Hcl 0.2 Mg Tablet) 0.2 mg PO BEDTIME APARNA; Protocol Last Admin: 06/03/23 20:20 Dose: 0.2 mg Documented By: SHANTELLE Dextrose (Dextrose 50 % 25 Gm/50 Ml Syringe) 25 gm IVPUSH Q15M PRN; Protocol PRN Reason: per Hypoglycemia Standing Ord. Enoxaparin Sodium (Enoxaparin Sodium 100 Mg/Ml Syringe) 90 mg 1 mg/kg (90 mg) SUBCUT Q12H [facility] Last Admin: 06/04/23 08:17 Dose: Not Given Documented By: SRI Non-Admin Reason: scheduled procedure Gabapentin (Gabapentin 100 Mg Capsule) 100 mg PO TID [facility] Last Admin: 06/04/23 14:33 Dose: Not Given Documented By: SRI Non-Admin Reason: Off Unit: Surgery Glucose (Glucose Gel 15 Gm Gel..Gram.) 15 gm PO Q15M PRN; Protocol PRN Reason: per Hypoglycemia Standing Ord. Hydroxyzine HCl (Hydroxyzine Hcl 10 Mg Tablet) 10 mg PO Q8H PRN PRN Reason: Anxiety Last Admin: 06/03/23 02:12 Dose: 10 mg Documented By: APRIL Metronidazole (Flagyl) 500 mg in 100 mls @ 100 mls/hr IV Q8H [facility] Last Infusion: 06/04/23 14:24 Dose: Infused Documented By: SRI Levofloxacin (Levaquin) 750 mg in 150 mls @ 100 mls/hr IV Q24H [facility] Last Admin: 06/04/23 14:33 Dose: Not Given Documented By: SRI Non-Admin Reason: Off Unit: Surgery Lactated Ringer's (Lr) 1,000 mls @ 125 mls/hr IVCONT .Q8H [facility] Last Infusion: 06/04/23 12:20 Dose: Infused Documented By: SRI Insulin Glargine (Insulin Glargine,Hum.Rec.Anlog 100 Unit/Ml 10 Ml Vial) 10 unit SUBCUT BEDTIME [facility] Last Admin: 06/03/23 21:03 Dose: 10 unit Documented By: SHANTELLE Insulin Human Lispro (Insulin Lispro 100 Unit/Ml 3 Ml Vial) 0 unit SUBCUT QIDACHS [facility]; Protocol Last Admin: 06/04/23 11:45 Dose: Not Given Documented By: SRI Non-Admin Reason: NPO Levothyroxine Sodium (Levothyroxine Sodium 75 Mcg Tablet) 75 mcg PO DAILY@0600 [facility] Last Admin: 06/04/23 05:33 Dose: 75 mcg Documented By: SHANTELLE Lidocaine (Lidocaine 4 % Patch Adh..Patch) 2 patch TRANSDERMA DAILY [facility]; Protocol Last Admin: 06/04/23 08:18 Dose: 2 patch Documented By: SRI Lisinopril (Lisinopril 40 Mg Tablet) 40 mg PO DAILY [facility]; Protocol Last Admin: 06/04/23 08:18 Dose: 40 mg Documented By: SRI Loperamide HCl (Loperamide Hcl 2 Mg Capsule) 4 mg PO Q6H PRN PRN Reason: Diarrhea Last Admin: 06/04/23 08:29 Dose: 4 mg Documented By: SRI Metoprolol Tartrate (Metoprolol Tartrate 50 Mg Tablet) 50 mg PO Q6H [facility]; Protocol Last Admin: 06/04/23 14:35 Dose: Not Given Documented By: SRI Non-Admin Reason: Off Unit: Surgery Morphine Sulfate (Morphine Sulfate 2 Mg/Ml Cartridge) 2 mg IVPUSH Q3H PRN; Protocol PRN Reason: Pain, Moderate(Pain Scale 4-6) Last Admin: 06/04/23 11:41 Dose: 2 mg Documented By: SRI Omeprazole (Omeprazole 40 Mg Capsule.Dr) 40 mg PO DAILY@0630 [facility] Last Admin: 06/04/23 05:33 Dose: 40 mg Documented By: SHANTELLE Ondansetron HCl (Ondansetron Hcl 4 Mg/2 Ml Vial) 4 mg IVPUSH Q6H PRN PRN Reason: Nausea and Vomiting Last Admin: 06/03/23 16:39 Dose: 4 mg Documented By: SRI Ondansetron HCl (Ondansetron Hcl 4 Mg/2 Ml Vial) 4 mg IVPUSH Q4H PRN PRN Reason: Nausea and Vomiting Pentoxifylline (Pentoxifylline Er 400 Mg Tablet.Er) 400 mg PO TID [facility] Last Admin: 06/04/23 14:35 Dose: Not Given Documented By: SRI Non-Admin Reason: Off Unit: Surgery Venlafaxine HCl (Venlafaxine Hcl Er 150 Mg Cap.Er.24h) 150 mg PO DAILY [facility] Last Admin: 06/04/23 08:18 Dose: 150 mg Documented By: SRI Labs 06/04/23 05:45 06/04/23 05:45 Labs: Laboratory Results - last 24 hr 06/03/23 06/03/23 06/03/23 16:11 19:55 20:52 MCV MCH MCHC RDW Plt Count MPV Immature Gran % (Auto) Neut % (Auto) Lymph % (Auto) [place] % (Auto) Eos % (Auto) Baso % (Auto) Lymph # (Auto) [place] # (Auto) Eos # (Auto) Baso # (Auto) Abs Immat Gran (auto) Absolute Neuts (auto) Absolute Nucleated RBC Nucleated RBC % (auto) Neutrophils % (Manual) Band Neutrophils % Lymphocytes % (Manual) Atypical Lymphs % (Man) Monocytes % (Manual) Metamyelocytes % Myelocytes % Abs Neuts (Manual) Lymphocytes # (Manual) Atyp Lymphs # (Manual) Monocytes # (Manual) Metamyelocytes # Myelocytes # Platelet Estimate Large Platelets Plt Morphology Comment RBC Morphology Polychromasia Anion Gap Estim Creat Clear Calc Estimated GFR POC Glucose 213 H 159 H Random Glucose Calcium C. difficile Tox B Gene NEGATIVE 06/04/23 06/04/23 06/04/23 05:45 07:42 11:36 MCV 82.0 MCH 27.1 MCHC 33.0 RDW 14.6 Plt Count 303 D MPV 9.9 Immature Gran % (Auto) Cancelled Neut % (Auto) Cancelled Lymph % (Auto) Cancelled [place] % (Auto) Cancelled Eos % (Auto) Cancelled Baso % (Auto) Cancelled Lymph # (Auto) Cancelled [place] # (Auto) Cancelled Eos # (Auto) Cancelled Baso # (Auto) Cancelled Abs Immat Gran (auto) Cancelled Absolute Neuts (auto) Cancelled Absolute Nucleated RBC 0.030 H Nucleated RBC % (auto) 0.1 Neutrophils % (Manual) 66 Band Neutrophils % 14 H Lymphocytes % (Manual) 6 L Atypical Lymphs % (Man) 2 Monocytes % (Manual) 6 Metamyelocytes % 4 Myelocytes % 2 Abs Neuts (Manual) 16.6 H Lymphocytes # (Manual) 1.2 Atyp Lymphs # (Manual) 0.4 Monocytes # (Manual) 1.2 Metamyelocytes # 0.8 Myelocytes # 0.4 Platelet Estimate NORMAL Large Platelets PRESENT Plt Morphology Comment NOTED RBC Morphology NOTED Polychromasia 1+ (0-2) Anion Gap 13 Estim Creat Clear Calc 98.9 Estimated GFR > 60 POC Glucose 140 H 156 H Random Glucose 155 H Calcium 8.0 L C. difficile Tox B Gene 06/04/23 14:42 MCV MCH MCHC RDW Plt Count MPV Immature Gran % (Auto) Neut % (Auto) Lymph % (Auto) [place] % (Auto) Eos % (Auto) Baso % (Auto) Lymph # (Auto) [place] # (Auto) Eos # (Auto) Baso # (Auto) Abs Immat Gran (auto) Absolute Neuts (auto) Absolute Nucleated RBC Nucleated RBC % (auto) Neutrophils % (Manual) Band Neutrophils % Lymphocytes % (Manual) Atypical Lymphs % (Man) Monocytes % (Manual) Metamyelocytes % Myelocytes % Abs Neuts (Manual) Lymphocytes # (Manual) Atyp Lymphs # (Manual) Monocytes # (Manual) Metamyelocytes # Myelocytes # Platelet Estimate Large Platelets Plt Morphology Comment RBC Morphology Polychromasia Anion Gap Estim Creat Clear Calc Estimated GFR POC Glucose 173 H Random Glucose Calcium C. difficile Tox B Gene Assessment and Plan (1) Ischemic colitis: Status: Acute (2) Pulmonary embolism: Status: Acute (3) Status post total left knee replacement: Status: Acute (4) Urinary retention: Status: Acute Plan 68 year old female with history of htn, asthma/copd overlap, type 2 diabetes, hld, gerd, admitted to orthopedic surgery for management of OA L knee s/p L TKA with consult placed to hospitalist service for medical management subsequently developed hypotention requiring ICU level of care [phone] and was diagnosed to have b/l segmental PE; hospital course further complicated by colitis Colitis; no improvement despite therapies GI consult obtained. Concern now is for ischemic bowel Initially treated with zoxyn, changed to Levaquin/Flagyl 06/01 cdif negative plan for sigmoidoscopy today, further management based on result OA L knee s/p TKA POD 9 plan per ortho surgery hypokalemia likely due to GI loss replace IV follow BMP check magnesium Urinary retention (likely secondary to anesthesia/opiates) hylton placed seen by urology voiding trial ?in am Pulmonary embolus CTA 05/28 with bilateral nonocclusive segmental pulmonary emboli -no respiratory issues at this time -minimal O2 requirement -continue therapeutic lovenox -wean O2 as tolerated echo with no evidence of right heart strain Type 2 diabetes -acceptable control on current therapy, on lantus, lower dose then baseline -lispro correctional scale HTN -acceptable control on current therapy - on lisinopril, clonidine, lopressor lasix, HCTZ on hold verapamil d/c in ICU due to hypotension lopressor currently 5 q6, on toprol xl 200 at baseline -adjust as indicated Hypothyroidism continue synthroid mood continue effexor Morbid obesity BMI 41 weight loss encouraged Requires ongoing hospitalization secondary to the need for IV antibiotics to treat colitis Quality Stroke Does the patient have a stroke diagnosis?: No VTE Prior VTE?: No VTE Risk Level:: Surgical - very high VTE Device Contraindication: N/A - Device Ordered VTE Drug Contraindication: N/A - Med Ordered
[2023-06-04 16:21] LABS: Glucose, Whole Blood 176 mg/dL (60-115)
[2023-06-04] MEDS: Insulin Lispro 100 UNIT/ML 3 ML VIAL SUBCUT ×2 (17:04→21:17)
[2023-06-04 20:16] LABS: Glucose, Whole Blood 174 mg/dL (60-115)
[2023-06-04] MEDS: cloNIDine HCL 0.2 MG TABLET PO (21:17)
[2023-06-04] MEDS: Insulin Glargine,Hum.rec.anlog 100 UNIT/ML 10 ML VIAL 10 UNIT SUBCUT (21:17)
[2023-06-04] MEDS: Enoxaparin Sodium 100 MG/ML SYRINGE 90 MG SUBCUT (21:18)
[2023-06-05] VITALS (9 sets, daily range): BP systolic 132–183; BP diastolic 72–85; PULSE 76–121; RESP 16–20; TEMP 35.9–37.3; O2SAT 95–97; BMI 37.7
[2023-06-05] MEDS: Morphine Sulfate 2 MG/ML CARTRIDGE IVPUSH ×4 (00:35→14:37)
[2023-06-05] MEDS: Metoprolol Tartrate 50 MG TABLET PO ×3 (04:57→14:21)
[2023-06-05] MEDS: Levothyroxine Sodium 75 MCG TABLET PO (04:57)
[2023-06-05] MEDS: metroNIDAZOLE/NS 500 MG/100 ML PIGGYBACK 100 MG IV ×3 (04:57→22:12)
[2023-06-05] MEDS: Omeprazole 40 MG CAPSULE.DR PO (04:57)
[2023-06-05] MEDS: Lactated Ringers 1,000 ML 125 ML IVCONT ×2 (04:58→17:58)
[2023-06-05 07:14] LABS: Hematocrit 31.6 % (37.0-47.0); Hemoglobin 10.6 g/dl (12.0-16.0); Mean Corpuscular HGB Conc 33.5 g/dl (31.0-35.0); Mean Corpuscular Volume 80.6 fL (80.0-98.0); Mean Platelet Volume 9.7 fL (9.4-12.3); NRBC Pct Auto 0.1 /100WBC (0.0-0.2); Platelet Count 400 X10*3/uL (160-400); Red Blood Count 3.92 X10*6/uL (4.20-5.50); Red Cell Distribution Width 14.7 % (11.0-16.0); White Blood Count 18.7 X10*3/uL (4.8-10.8)
[2023-06-05 07:39] LABS: Glucose, Whole Blood 171 mg/dL (60-115)
[2023-06-05 07:42] LABS: Anion Gap 14 (12-20); Blood Urea Nitrogen 5 mg/dL (9-16); Calcium 7.8 mg/dL (8.4-10.2); Carbon Dioxide 25 mmol/L (22-29); Chloride 105 mmol/L (96-108); Creatinine Clr Calc Pharmacy 97.3; Estimated Glomerular Filt Rate > 60; Glucose Random 172 mg/dL (60-115); Magnesium 1.6 mg/dL (1.6-2.6); Sodium 141 mmol/L (135-145)
--- NOTE | 2023-06-05 07:46 | HO.POSTANES ---
Post Anesthesia Evaluation Post Anesthesia Evaluation Date of Service: 06/05/23 Vital Signs: Vital Signs Temp Pulse Resp BP Pulse Ox O2 Del Method 06/04/23 23:59 97.8 F 76 18 170/76 H 96 Room Air Anesthesia: TIVA Mental Status: Awake Pain Control: Satisfactory (Uncomfortable) Nausea/Vomiting: None Hydration: Adequate Anesthesia-Related Issues: No Anes. Related Issues
[2023-06-05 07:57] LABS: Band Neutrophils Percent 6 % (3-5); Eosinophils Absolute Manual 0.2 X10*3/uL (0.0-0.4); Eosinophils Percent Manual 1 % (0-4); Lymphocytes Absolute Manual 2.1 X10*3/uL (1.2-4.9); Lymphocytes Percent Manual 11 % (20-40); Metamyelocytes Absolute 0.2 X10*3/uL; Metamyelocytes Percent 1 %; Monocytes Absolute Manual 1.3 X10*3/uL (0.1-1.2); Monocytes Percent Manual 7 % (2-11); Neutrophils Percent Manual 74 % (45-73)
[2023-06-05 07:58] LABS: Hypochromasia 1+ (5-14) /OIF; Platelet Estimate NORMAL (NORMAL); Platelet Morphology Comment NORMAL; Polychromasia 1+ (0-2) /OIF; RBC Morphology NOTED
[2023-06-05] MEDS: Enoxaparin Sodium 100 MG/ML SYRINGE 90 MG SUBCUT (08:30)
[2023-06-05] MEDS: Gabapentin 100 MG CAPSULE PO ×2 (08:31→14:21)
[2023-06-05] MEDS: Venlafaxine HCl ER 150 MG CAP.ER.24H PO (08:31)
[2023-06-05] MEDS: Insulin Lispro 100 UNIT/ML 3 ML VIAL SUBCUT ×3 (08:31→22:23)
[2023-06-05] MEDS: Pentoxifylline ER 400 MG TABLET.ER PO ×2 (08:31→14:21)
[2023-06-05] MEDS: lisinopriL 40 MG TABLET PO (08:31)
[2023-06-05] MEDS: Lidocaine 4 % Patch ADH..PATCH 2 PATCH TRANSDERMA (08:32)
[2023-06-05] MEDS: Loperamide HCl 2 MG CAPSULE 4 MG PO (11:02)
[2023-06-05 11:25] LABS: Glucose, Whole Blood 155 mg/dL (60-115)
[2023-06-05] MEDS: Potassium Chloride Packet 20 MEQ PACKET 40 MEQ PO (12:18)
[2023-06-05] MEDS: Magnesium Sulfate/H2O 2 GM/50 ML PIGGYBACK IV (12:20)
--- NOTE | 2023-06-05 13:40 | HO.PM.IMPN ---
Subjective Subjective Date of Service: 06/05/23 Interval History: seen and examined this morning follow up for colitis still reporting abdominal pain and diarrhea no fever Review of Systems Review of Systems: Yes all other systems are reviewed and are negative Constitutional Constitutional: Denies chills and Denies fever(s) Cardiovascular Cardiovascular: Denies chest pain, Denies palpitations and Denies dyspnea Respiratory Respiratory: Denies cough and Denies dyspnea Gastrointestinal Gastrointestinal: Reports abdominal pain and Reports diarrhea Endocrine Endocrine: Denies palpitations Physical Exam Vital Signs: Vital Signs: Last Vital Signs Temp 98.0 F 06/05/23 08:00 Pulse 78 06/05/23 11:42 Resp 17 06/05/23 08:00 BP 179/73 H 06/05/23 11:42 Pulse Ox 95 06/05/23 11:42 O2 Del Method Room Air 06/05/23 08:00 O2 Flow Rate 2 06/04/23 14:22 FiO2 93 05/29/23 19:00 Oxygen Flow Rate 3 05/29/23 04:00 BMI result Body Mass Index 41.1 Const: General: cooperative, comfortable, alert and awake Nutritional Appearance: obese Orientation/consciousness: patient oriented x3 Resp: Effort & Inspection: normal respiratory effort, able to speak in complete sentences, no respiratory distress and no use of accessory muscles Cardio: Rate: regular rate GI: Other: no guarding or rebound, +BS tenderness primarily left lower quadrant Inspection: No distended Palpation (GI): Soft to palpation Neuro: General: patient oriented x3 Objective Data Active Medications Acetaminophen (Acetaminophen 325 Mg Tablet) 975 mg PO Q6H PRN PRN Reason: Pain, Moderate(Pain Scale 4-6) Last Admin: 06/03/23 02:11 Dose: 975 mg Documented By: APRIL Albuterol Sulfate (Albuterol Sulfate 90 Mcg 8 Gm Inhaler) 2 puff INHALE RQ4H PRN PRN Reason: Wheezing Albuterol/Ipratropium (Albuterol/Iprat 2.5/0.5mg 3 Ml Ampul.Neb) 3 ml INHALE RQ4H WHILE AWAKE PRN PRN Reason: Wheezing Clonidine HCl (Clonidine Hcl 0.2 Mg Tablet) 0.2 mg PO BEDTIME [facility]; Protocol Last Admin: 06/04/23 21:17 Dose: 0.2 mg Documented By: LO Dextrose (Dextrose 50 % 25 Gm/50 Ml Syringe) 25 gm IVPUSH Q15M PRN; Protocol PRN Reason: per Hypoglycemia Standing Ord. Enoxaparin Sodium (Enoxaparin Sodium 100 Mg/Ml Syringe) 90 mg 1 mg/kg (90 mg) SUBCUT Q12H [facility] Last Admin: 06/05/23 08:30 Dose: 90 mg Documented By: MICH Gabapentin (Gabapentin 100 Mg Capsule) 100 mg PO TID [facility] Last Admin: 06/05/23 08:31 Dose: 100 mg Documented By: MICH Glucose (Glucose Gel 15 Gm Gel..Gram.) 15 gm PO Q15M PRN; Protocol PRN Reason: per Hypoglycemia Standing Ord. Hydroxyzine HCl (Hydroxyzine Hcl 10 Mg Tablet) 10 mg PO Q8H PRN PRN Reason: Anxiety Last Admin: 06/03/23 02:12 Dose: 10 mg Documented By: APRIL Metronidazole (Flagyl) 500 mg in 100 mls @ 100 mls/hr IV Q8H [facility] Last Infusion: 06/05/23 12:19 Dose: Infused Documented By: MICH Levofloxacin (Levaquin) 750 mg in 150 mls @ 100 mls/hr IV Q24H [facility] Last Admin: 06/04/23 14:33 Dose: Not Given Documented By: SRI Non-Admin Reason: Off Unit: Surgery Magnesium Sulfate (Magnesium Sulfate/H2o) 2 gm in 50 mls @ 25 mls/hr IV ONCE ONE Stop: 06/05/23 13:59 Last Admin: 06/05/23 12:20 Dose: 25 mls/hr Documented By: MICH Insulin Glargine (Insulin Glargine,Hum.Rec.Anlog 100 Unit/Ml 10 Ml Vial) 10 unit SUBCUT BEDTIME [facility] Last Admin: 06/04/23 21:17 Dose: 10 unit Documented By: LO Insulin Human Lispro (Insulin Lispro 100 Unit/Ml 3 Ml Vial) 0 unit SUBCUT QIDACHS [facility]; Protocol Last Admin: 06/05/23 11:36 Dose: 2 unit Documented By: MICH Levothyroxine Sodium (Levothyroxine Sodium 75 Mcg Tablet) 75 mcg PO DAILY@0600 [facility] Last Admin: 06/05/23 04:57 Dose: 75 mcg Documented By: LO Lidocaine (Lidocaine 4 % Patch Adh..Patch) 2 patch TRANSDERMA DAILY [facility]; Protocol Last Admin: 06/05/23 08:32 Dose: 2 patch Documented By: MICH Lisinopril (Lisinopril 40 Mg Tablet) 40 mg PO DAILY [facility]; Protocol Last Admin: 06/05/23 08:31 Dose: 40 mg Documented By: MICH Loperamide HCl (Loperamide Hcl 2 Mg Capsule) 4 mg PO Q6H PRN PRN Reason: Diarrhea Last Admin: 06/05/23 11:02 Dose: 4 mg Documented By: MICH Metoprolol Tartrate (Metoprolol Tartrate 50 Mg Tablet) 50 mg PO Q6H [facility]; Protocol Last Admin: 06/05/23 08:31 Dose: 50 mg Documented By: MICH Morphine Sulfate (Morphine Sulfate 2 Mg/Ml Cartridge) 2 mg IVPUSH Q3H PRN; Protocol PRN Reason: Pain, Moderate(Pain Scale 4-6) Last Admin: 06/05/23 08:31 Dose: 2 mg Documented By: MICH Omeprazole (Omeprazole 40 Mg Capsule.Dr) 40 mg PO DAILY@0630 [facility] Last Admin: 06/05/23 04:57 Dose: 40 mg Documented By: LO Ondansetron HCl (Ondansetron Hcl 4 Mg/2 Ml Vial) 4 mg IVPUSH Q6H PRN PRN Reason: Nausea and Vomiting Last Admin: 06/03/23 16:39 Dose: 4 mg Documented By: SRI Ondansetron HCl (Ondansetron Hcl 4 Mg/2 Ml Vial) 4 mg IVPUSH Q4H PRN PRN Reason: Nausea and Vomiting Pentoxifylline (Pentoxifylline Er 400 Mg Tablet.Er) 400 mg PO TID [facility] Last Admin: 06/05/23 08:31 Dose: 400 mg Documented By: MICH Venlafaxine HCl (Venlafaxine Hcl Er 150 Mg Cap.Er.24h) 150 mg PO DAILY [facility] Last Admin: 06/05/23 08:31 Dose: 150 mg Documented By: MICH Labs 06/05/23 05:46 06/05/23 05:46 Labs: Laboratory Results - last 24 hr 06/04/23 06/04/23 06/04/23 14:42 16:08 20:06 MCV MCH MCHC RDW Plt Count MPV Immature Gran % (Auto) Neut % (Auto) Lymph % (Auto) Amelia % (Auto) Eos % (Auto) Baso % (Auto) Lymph # (Auto) Amelia # (Auto) Eos # (Auto) Baso # (Auto) Abs Immat Gran (auto) Absolute Neuts (auto) Absolute Nucleated RBC Nucleated RBC % (auto) Neutrophils % (Manual) Band Neutrophils % Lymphocytes % (Manual) Monocytes % (Manual) Eosinophils % (Manual) Metamyelocytes % Abs Neuts (Manual) Lymphocytes # (Manual) Monocytes # (Manual) Eosinophils # (Manual) Metamyelocytes # Platelet Estimate Plt Morphology Comment RBC Morphology Polychromasia Hypochromasia Anion Gap Estim Creat Clear Calc Estimated GFR POC Glucose 173 H 176 H 174 H Random Glucose Calcium Magnesium 06/05/23 06/05/23 06/05/23 05:46 07:34 11:16 MCV 80.6 MCH 27.0 MCHC 33.5 RDW 14.7 Plt Count 400 D MPV 9.7 Immature Gran % (Auto) Cancelled Neut % (Auto) Cancelled Lymph % (Auto) Cancelled Amelia % (Auto) Cancelled Eos % (Auto) Cancelled Baso % (Auto) Cancelled Lymph # (Auto) Cancelled Amelia # (Auto) Cancelled Eos # (Auto) Cancelled Baso # (Auto) Cancelled Abs Immat Gran (auto) Cancelled Absolute Neuts (auto) Cancelled Absolute Nucleated RBC 0.020 H Nucleated RBC % (auto) 0.1 Neutrophils % (Manual) 74 H Band Neutrophils % 6 H Lymphocytes % (Manual) 11 L Monocytes % (Manual) 7 Eosinophils % (Manual) 1 Metamyelocytes % 1 Abs Neuts (Manual) 15.0 H Lymphocytes # (Manual) 2.1 Monocytes # (Manual) 1.3 H Eosinophils # (Manual) 0.2 Metamyelocytes # 0.2 Platelet Estimate NORMAL Plt Morphology Comment NORMAL RBC Morphology NOTED Polychromasia 1+ (0-2) Hypochromasia 1+ (5-14) Anion Gap 14 Estim Creat Clear Calc 97.3 Estimated GFR > 60 POC Glucose 171 H 155 H Random Glucose 172 H Calcium 7.8 L Magnesium 1.6 Assessment and Plan (1) Ischemic colitis: Status: Acute (2) Status post knee replacement: Status: Acute (3) Pulmonary embolism: Status: Acute (4) Urinary retention: Status: Acute Plan 68 year old female with history of htn, asthma/copd overlap, type 2 diabetes, hld, gerd, admitted to orthopedic surgery for management of OA L knee s/p L TKA with consult placed to hospitalist service for medical management subsequently developed hypotention requiring ICU level of care [phone]/[phone] and was diagnosed to have b/l segmental PE; hospital course further complicated by colitis Ischemic Colitis white count trending down slightly seen by GI, underwent sigmoidoscopy 06/03 - c/w with healing ischemic colitis continue IV Levaquin/Flagyl continue trental avoid low blood pressure OA L knee s/p TKA POD 10 plan per ortho surgery hypokalemia likely due to GI loss, decreased po intake replace IV follow BMP magnesium 1.6 Urinary retention (likely secondary to anesthesia/opiates) hylton placed seen by urology Pulmonary embolus CTA 05/28 with bilateral nonocclusive segmental pulmonary emboli no respiratory symptoms, now on room air echo with no evidence of right heart strain continue therapeutic lovenox Type 2 diabetes -acceptable control on current therapy, on lantus, lower dose then baseline - may need to be up-titrated as diet is advanced Continue SSI HTN -acceptable control on current therapy - on lisinopril, clonidine, lopressor (getting 50q6h vs 200 at baseline) lasix, HCTZ on hold verapamil d/c in ICU due to hypotension lopressor currently 5 q6, on toprol xl 200 at baseline -adjust as indicated Hypothyroidism continue synthroid mood continue effexor Morbid obesity BMI 41 weight loss encouraged Requires ongoing hospitalization secondary to the need for IV antibiotics to treat colitis Quality Stroke Does the patient have a stroke diagnosis?: No VTE Prior VTE?: No VTE Risk Level:: Surgical - very high VTE Device Contraindication: N/A - Device Ordered VTE Drug Contraindication: N/A - Med Ordered
[2023-06-05] MEDS: levoFLOXacin/D5W 750 MG/150 ML PIGGYBACK 100 MG IV (14:19)
[2023-06-05 14:59] LABS: Hematocrit 33.7 % (37.0-47.0); Hemoglobin 11.4 g/dl (12.0-16.0)
[2023-06-05 15:04] LABS: Prothrombin Time 12.7 SEC (11.1-13.3)
--- NOTE | 2023-06-05 15:10 | P.CNHO_ITS ---
Subjective - Subjective Chief complaint: Abdominal pain Patient: new to practice Consult date: 06/05/23 Primary Care Provider: Breanna Zamudio NP HPI - Consult Narrative Reason for consult: GI bleeding, on Lovenox for recently diagnosed PE Narrative: Lois Dalton is a 68 year old female with past medical history significant for COPD/asthma, type 2 diabetes mellitus and GERD who was admitted to orthopedic surgery for left total knee arthroplasty which was performed 05/26/2023. Two days postoperatively on 05/28/2023, patient was noted to have altered mental status. She was given naloxone and her dose of opioid analgesics was decreased. On 05/28/2021 patient was again found to be lethargic and found to be hypotensive, she was transferred to the ICU and was briefly on pressors. She was found to have acute kidney injury with a creatinine of 1.72 which responded to IV fluids. On 05/28, she also underwent CT angiogram because of hypoxemia, this revealed bilateral segmental pulmonary emboli and she was started on Lovenox 1 per kilos b.i.d.. Left lower extremity Doppler was negative for DVT. She started to develop intermittent diarrhea, stool for C diff was negative. She also developed lower abdominal pain, she had sigmoidoscopy on 06/03 which revealed ischemic colitis. Today she was noted to have blood clots as well as bright red blood per rectum and therefore Hematology consultation was called. Patient reports ongoing pain in the anterior pelvic area. She denies shortness of breath or pleuritic chest pain. She is incontinent of stool. No prior history or family history of thromboembolism. No history of cancer or smoking. Review of Systems - Constitutional Reports as per HPI - Neurologic Reports no additional neurologic complaints [facility] Medical History: Medical History (Last Reviewed 06/05/23 @ 15:44 by Paco Heranndez MD) Asthma BMI 35.0-35.9,adult Cervical cancer Chronic restrictive lung disease Colitis, infectious Cough due to SHANELLE inhibitor Depression with anxiety Diabetes mellitus with hyperglycemia Eosinophilia Erosive gastritis Essential hypertension Fibromyalgia GERD (gastroesophageal reflux disease) Meir's disease HTN (hypertension) Hyperlipidemia LDL goal <100 Hyperparathyroidism Leg edema, left Multinodular thyroid Obesity (BMI 30.0-34.9) Osteoarthritis of left knee Osteopenia Other obesity due to excess calories Other specified acquired hypothyroidism Skin lesion of chest wall T2DM (type 2 diabetes mellitus) Thyroid nodule Type 2 diabetes mellitus with diabetic polyneuropathy Vitamin B12 deficiency Vitamin D deficiency Family History: Family History (Last Reviewed 06/05/23 @ 15:44 by Paco Hernandez MD) Father CVD (cardiovascular disease) Diabetes mellitus Stroke Mother Stroke Diabetes mellitus Breast cancer Hyperthyroidism Surgical History: Surgical History (Last Reviewed 06/05/23 @ 15:44 by Paco Hernandez MD) History of arthroplasty of right knee History of bilateral carpal tunnel release History of cholecystectomy History of esophagogastroduodenoscopy (EGD) Hx of arthroscopic knee surgery Hx of bilateral oophorectomy Hx of colonoscopy Hx of elbow surgery Hx of foot surgery Hx of hand surgery Hx of hysterectomy Social History: Social History (Last Reviewed 06/05/23 @ 15:44 by Paco Hernandez MD) Living Situation History: Household Members: Spouse Housing: House Housing Other:: 2nd floor-2 family house Are you a primary care transitions manager to a significant other at home: No Do you presently have visiting nurse or other home services: Yes Do you presently have visiting nurse or other home services comment: [employer] Tobacco History: Patient Tobacco Use Status: Never used Tobacco Occupation Assessmet: service: No 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al status: disabled 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: Right Handed Home Medications and Allergies Current Medications: Current Medications Acetaminophen (Acetaminophen 325 Mg Tablet) 975 mg PO Q6H PRN PRN Reason: Pain, Moderate(Pain Scale 4-6) Last Admin: 06/03/23 02:11 Dose: 975 mg Albuterol Sulfate (Albuterol Sulfate 90 Mcg 8 Gm Inhaler) 2 puff INHALE RQ4H PRN PRN Reason: Wheezing Albuterol/Ipratropium (Albuterol/Iprat 2.5/0.5mg 3 Ml Ampul.Neb) 3 ml INHALE RQ4H WHILE AWAKE PRN PRN Reason: Wheezing Clonidine HCl (Clonidine Hcl 0.2 Mg Tablet) 0.2 mg PO BEDTIME [facility]; Protocol Last Admin: 06/04/23 21:17 Dose: 0.2 mg Dextrose (Dextrose 50 % 25 Gm/50 Ml Syringe) 25 gm IVPUSH Q15M PRN; Protocol PRN Reason: per Hypoglycemia Standing Ord. Enoxaparin Sodium (Enoxaparin Sodium 100 Mg/Ml Syringe) 90 mg 1 mg/kg (90 mg) SUBCUT Q12H [facility] Last Admin: 06/05/23 08:30 Dose: 90 mg Gabapentin (Gabapentin 100 Mg Capsule) 100 mg PO TID [facility] Last Admin: 06/05/23 14:21 Dose: 100 mg Glucose (Glucose Gel 15 Gm Gel..Gram.) 15 gm PO Q15M PRN; Protocol PRN Reason: per Hypoglycemia Standing Ord. Metronidazole (Flagyl) 500 mg in 100 mls @ 100 mls/hr IV Q8H [facility] Last Infusion: 06/05/23 12:19 Dose: Infused Levofloxacin (Levaquin) 750 mg in 150 mls @ 100 mls/hr IV Q24H [facility] Last Admin: 06/05/23 14:19 Dose: 100 mls/hr Insulin Glargine (Insulin Glargine,Hum.Rec.Anlog 100 Unit/Ml 10 Ml Vial) 10 unit SUBCUT BEDTIME [facility] Last Admin: 06/04/23 21:17 Dose: 10 unit Insulin Human Lispro (Insulin Lispro 100 Unit/Ml 3 Ml Vial) 0 unit SUBCUT QIDACHS [facility]; Protocol Last Admin: 06/05/23 11:36 Dose: 2 unit Levothyroxine Sodium (Levothyroxine Sodium 75 Mcg Tablet) 75 mcg PO DAILY@0600 [facility] Last Admin: 06/05/23 04:57 Dose: 75 mcg Lidocaine (Lidocaine 4 % Patch Adh..Patch) 2 patch TRANSDERMA DAILY [facility]; Protocol Last Admin: 06/05/23 08:32 Dose: 2 patch Lisinopril (Lisinopril 40 Mg Tablet) 40 mg PO DAILY [facility]; Protocol Last Admin: 06/05/23 08:31 Dose: 40 mg Loperamide HCl (Loperamide Hcl 2 Mg Capsule) 4 mg PO Q6H PRN PRN Reason: Diarrhea Last Admin: 06/05/23 11:02 Dose: 4 mg Metoprolol Tartrate (Metoprolol Tartrate 50 Mg Tablet) 50 mg PO Q6H [facility]; Protocol Last Admin: 06/05/23 14:21 Dose: 50 mg Morphine Sulfate (Morphine Sulfate 2 Mg/Ml Cartridge) 2 mg IVPUSH Q4H PRN; Protocol PRN Reason: Pain, Moderate(Pain Scale 4-6) Last Admin: 06/05/23 14:37 Dose: 2 mg Omeprazole (Omeprazole 40 Mg Capsule.Dr) 40 mg PO DAILY@0630 [facility] Last Admin: 06/05/23 04:57 Dose: 40 mg Ondansetron HCl (Ondansetron Hcl 4 Mg/2 Ml Vial) 4 mg IVPUSH Q6H PRN PRN Reason: Nausea and Vomiting Last Admin: 06/03/23 16:39 Dose: 4 mg Pentoxifylline (Pentoxifylline Er 400 Mg Tablet.Er) 400 mg PO TID [facility] Last Admin: 06/05/23 14:21 Dose: 400 mg Venlafaxine HCl (Venlafaxine Hcl Er 150 Mg Cap.Er.24h) 150 mg PO DAILY [facility] Last Admin: 06/05/23 08:31 Dose: 150 mg Home Medications Medication Instructions Recorded Confirmed Type hydrochlorothiazide 50 mg tablet 50 mg PO DAILY 02/29/20 05/21/23 History blood sugar diagnostic #10 ea 03/19/20 05/21/23 History hydroxyzine HCl 50 mg tablet 50 mg PO Q8H PRN anxiety 03/19/20 05/21/23 History lisinopril 40 mg tablet 40 mg PO DAILY 03/19/20 05/21/23 History metoprolol succinate 200 mg 200 mg PO DAILY 07/09/20 05/21/23 History tablet,extended release 24 hr trazodone 150 mg tablet 300 mg PO BEDTIME 07/09/20 05/21/23 History lancets 33 gauge (OneTouch Deldeja #100 ea 04/17/21 05/21/23 History Plus Lancet) verapamil 180 mg tablet,extended 360 mg PO DAILY 10/17/21 05/27/23 History release albuterol sulfate 0.63 mg/3 mL 1 amp inhalation Q4H PRN wheezing 03/24/22 05/21/23 History solution for nebulization levothyroxine 75 mcg tablet 75 mcg PO DAILY@0600 03/24/22 05/21/23 History multivitamin-ferrous 1 tab PO DAILY 03/24/22 05/21/23 History fumarate-folic acid 18 mg-400 mcg tablet (Certavite-Antioxidant) clonidine HCl 0.1 mg tablet 0.2 mg PO BEDTIME 02/28/23 05/21/23 History cyanocobalamin (vitamin B-12) 1,000 mcg PO DAILY 02/28/23 05/21/23 History 1,000 mcg sublingual tablet dexlansoprazole 60 mg 60 mg PO DAILY@0630 02/28/23 05/21/23 History capsule,biphase delayed release empagliflozin 25 mg tablet 25 mg PO QAM 02/28/23 05/21/23 History (Jardiance) insulin glargine 100 unit/mL (3 34 unit subcut BEDTIME 02/28/23 05/21/23 History mL) subcutaneous pen (Lantus Solostar U-100 Insulin) pioglitazone 15 mg tablet 15 mg PO QAM 02/28/23 05/21/23 History semaglutide 0.25 mg or 0.5 mg (2 0.5 mg subcut MO@0900 02/28/23 05/21/23 History mg/3 mL) subcutaneous pen injector (Ozempic) venlafaxine 150 mg 150 mg PO DAILY 05/20/23 05/27/23 History capsule,extended release 24 hr fluticasone propionate 50 1 spray intranasal DAILY 05/25/23 05/26/23 History mcg/actuation nasal spray,suspension furosemide 40 mg tablet 40 mg PO DAILY 05/25/23 05/27/23 History fluticasone fur. 200 mcg-umeclid 1 ea inhalation DAILY 05/26/23 05/26/23 History 62.5 mcg-vilant 25 mcg inhalat.powder (Trelegy Ellipta) psyllium husk 3 gram/5.4 gram oral 3 g PO DAILY 05/27/23 05/27/23 History powder (Reguloid (psyllium husk)) Allergies Allergy/AdvReac Type Severity Reaction Status Date / Time hazelnut Allergy Mild per Verified 05/26/23 07:56 allergy skin test peanut Allergy Mild per Verified 05/26/23 07:56 allergy skin test Physical Exam Vital signs: Vital Signs Temp 98.0 F 06/05/23 08:00 Pulse 77 06/05/23 14:24 Resp 17 06/05/23 08:00 BP 180/76 H 06/05/23 14:24 Pulse Ox 95 06/05/23 11:42 O2 Del Method Room Air 06/05/23 08:00 O2 Flow Rate 2 06/04/23 14:22 FiO2 93 05/29/23 19:00 Intake & Output 06/04/23 06/05/23 06/05/23 18:59 06:59 18:59 Intake Total 1226.667 / 4022.500 2795.833 / 4022.500 1079.167 / 1079.167 Output Total 1600 / 4900 3300 / 4900 Balance -373.333 / -877.500 -504.167 / -518.309 9896.167 / 1079.167 Urine Output (Average ml/kg/hr) 1.31 2.70 2.70 Intake: Intake, Oral Amount 1000 / 1000 Intake, IV Amount 1226.667 / 3022.500 1795.833 / 3022.500 1079.167 / 1079.167 Magnesium Sulfate/H2O 2 gm In 50 / 50 50 ml @ 25 mls/hr IV ONCE ONE Rx#:[id number] Potassium Chloride/H20 10 meq 126.667 / 126.667 0 / 126.667 In 100 ml @ 100 mls/hr IV Q1H [facility] Rx#:[id number] metroNIDAZOLE/NS 500 mg In 100 100 / 300.000 200.000 / 300.000 100 / 100 ml @ 100 mls/hr IV Q8H [facility] Rx#: [id number] Lactated Ringers 1,000 ml @ 125 1000 / 2595.833 1595.833 / 2595.833 929.167 / 929.167 mls/hr IVCONT .Q8H [facility] Rx#: [id number] Output: Output, Urine Amount (Catheter) 1600 / 4900 3300 / 4900 Urethral 1600 / 4900 3300 / 4900 Other: IV Intake, Intraoperative 200 Amount Meal Refused No NPO Yes Number of Bowel Movements 2 4 Urine Color Yellow Last Bowel Movement 06/04/23 06/05/23 06/05/23 Stool Incontinent Incontinent Stool Amount Moderate Small Stool Color Brown Stool Consistency Liquid Watery Weight 102 kg - Constitutional Present: no acute distress - Routine HEENT Exam Head: Present: normal inspection Eye: Present: PERRL - Routine Neck Exam Absent: lymphadenopathy - Routine Respiratory Exam Absent: accessory muscle use, respiratory distress - Routine Cardiovascular Exam Cardiovascular: Present: S1, S2 - Routine Abdominal Exam Present: soft, tenderness - Routine Extremities Exam Present: pedal edema Hem/Onc Consult Result - Labs CBC & Chem 7: 06/05/23 14:52 06/05/23 05:46 Labs: Short CBC 06/05/23 06/05/23 Range/Units 05:46 14:52 WBC 18.7 H (4.8-10.8) X10*3/uL Hgb 10.6 L 11.4 L (12.0-16.0) g/dl Hct 31.6 L 33.7 L (37.0-47.0) % Plt Count 400 D (160-400) X10*3/uL [facility] 06/05/23 05:46 Sodium 141 Potassium 3.0 L Chloride 105 Carbon Dioxide 25 BUN 5 L Creatinine 0.61 Calcium 7.8 L Assessment and Plan Patient Active problem list reviewed?: Yes (1) Pulmonary embolism Status: Acute Assessment and plan: 1. This is a 68-year-old woman who underwent elective left total knee arthroplasty on 05/26/2023 and subsequently diagnosed with bilateral segmental pulmonary emboli on 05/29/2023. Her postoperative course was complicated by hypotension that required pressor support and subsequent development of ischemic colitis. CT angiogram of chest performed 05/28 revealed bilateral nonocclusive segmental pulmonary emboli without evidence of right heart strain or pulmonary infarction. She has been on Lovenox 90 mg subQ b.i.d.. She underwent CT abdomen/pelvis on 05/30/2023 for symptoms of abdominal pain and diarrhea and found to have abnormal fluid distention of small-bowel loops and colon consistent with gastroenteritis and colitis. She underwent sigmoidoscopy on 06/04/23 which revealed appearance of healing ischemic colitis. She has now developed rectal bleeding and hematology consultation was called. I am unable to review CT angiogram with radiologist, and it is unclear if she had symptomatic pulmonary embolism. Unclear as to the acuity of the clot, whether the thrombus is acute or chronic. Patient has never had symptoms of shortness of breath or pleuritic chest pain, the only time she was hypoxic was when she was significantly hypotensive. At this time, I would recommend either holding anticoagulation completely if she has significant bleeding or switching to unfractionated heparin without bolus if her bleeding is only transient. Monitor CBC closely. Do not test for D-dimer in postoperative patient. Repeat CT angiogram of the chest if she develops respiratory symptoms. I thank you for this consultation. - Time Spent With Patient Time Spent with Patient (in minutes): 25
[2023-06-05 15:30] LABS: Lactic Acid 1.1 mmol/L (0.5-2.0)
--- NOTE | 2023-06-05 15:30 | P.CONGS_ITS ---
History of Present Illness Consult details Consult date: 06/05/23 Narrative: 68 year old female referred for ischemic colitis. She has a history of asthma and hypertension, and underwent elective left knee replacement last 05/26/2023. She had episodes of unresponsiveness postop likely from narcotic pain medications. She had been given Narcan with good response. She then had an episode of hypotension requiring transferred to ICU on postop day 3. She was diagnosed to have PEs. She had been on anticoagulation with Lovenox. She also developed left lower quadrant pain and diarrhea. She tested negative for C diff. She had a flexible sigmoidoscopy 2 days ago showing findings consistent with healing ischemic colitis in the sigmoid. She continues to have left lower quadrant pain. She had good bowel movements earlier today but she had bowel movements this afternoon with some clots and small amounts of bright red blood. I was therefore consulted. She has remained hemodynamically stable. Her hemoglobin has been stable as well. She describes pain on the left lower quadrant for about 2 weeks now. Review of Systems 2 Constitutional: Constitutional: Denies chills and Denies fever(s) Cardiovascular: Cardiovascular: Denies chest pain, Denies dyspnea and Denies dyspnea on exertion Respiratory: Respiratory: Denies cough, Denies dyspnea and Denies dyspnea on exertion Gastrointestinal: Gastrointestinal: Reports hematochezia, Denies change in bowel habits and Reports diarrhea Genitourinary: Genitourinary: Denies hematuria Musculoskeletal: Musculoskeletal: Denies back pain and Denies limited range of motion Neurologic: Denies focal weakness and Denies convulsions Psychiatric: Psychiatric: Denies depression and Denies mood swings PMFSH Past Medical History Medical History Colitis, infectious Chronic restrictive lung disease Obesity (BMI 30.0-34.9) Cough due to SHANELLE inhibitor Eosinophilia Asthma HTN (hypertension) T2DM (type 2 diabetes mellitus) Erosive gastritis Leg edema, left Hyperparathyroidism Vitamin D deficiency Multinodular thyroid Thyroid nodule Skin lesion of chest wall Type 2 diabetes mellitus with diabetic polyneuropathy Fibromyalgia Depression with anxiety Cervical cancer Osteoarthritis of left knee Osteopenia GERD (gastroesophageal reflux disease) Diabetes mellitus with hyperglycemia Meir's disease Other specified acquired hypothyroidism Hyperlipidemia LDL goal <100 Essential hypertension Vitamin B12 deficiency Other obesity due to excess calories BMI 35.0-35.9,adult Family History Family History Father CVD (cardiovascular disease) Diabetes mellitus Stroke Mother Stroke Diabetes mellitus Breast cancer Hyperthyroidism Surgical History Surgical History Hx of elbow surgery Hx of hand surgery Hx of arthroscopic knee surgery History of cholecystectomy History of arthroplasty of right knee Hx of hysterectomy Hx of foot surgery History of bilateral carpal tunnel release Hx of bilateral oophorectomy History of esophagogastroduodenoscopy (EGD) Hx of colonoscopy Social History Social History Household Members: Spouse Housing: House Housing Other:: 2nd floor-2 family house Are you a primary respiratory care instructor to a significant other at home: No Do you presently have visiting nurse or other home services: Yes ([employer]) Alcohol intake: never Comment: continues with camera Patient Tobacco Use Status: Never used Tobacco service: No 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al status: disabled 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 Allergies Allergy/AdvReac Type Severity Reaction Status Date / Time hazelnut Allergy Mild per Verified 05/26/23 07:56 allergy skin test peanut Allergy Mild per Verified 05/26/23 07:56 allergy skin test Active Medications: Current Medications Acetaminophen (Acetaminophen 325 Mg Tablet) 975 mg PO Q6H PRN PRN Reason: Pain, Moderate(Pain Scale 4-6) Last Admin: 06/03/23 02:11 Dose: 975 mg Albuterol Sulfate (Albuterol Sulfate 90 Mcg 8 Gm Inhaler) 2 puff INHALE RQ4H PRN PRN Reason: Wheezing Albuterol/Ipratropium (Albuterol/Iprat 2.5/0.5mg 3 Ml Ampul.Neb) 3 ml INHALE RQ4H WHILE AWAKE PRN PRN Reason: Wheezing Clonidine HCl (Clonidine Hcl 0.2 Mg Tablet) 0.2 mg PO BEDTIME APARNA; Protocol Last Admin: 06/04/23 21:17 Dose: 0.2 mg Dextrose (Dextrose 50 % 25 Gm/50 Ml Syringe) 25 gm IVPUSH Q15M PRN; Protocol PRN Reason: per Hypoglycemia Standing Ord. Enoxaparin Sodium (Enoxaparin Sodium 100 Mg/Ml Syringe) 90 mg 1 mg/kg (90 mg) SUBCUT Q12H APARNA Last Admin: 06/05/23 08:30 Dose: 90 mg Gabapentin (Gabapentin 100 Mg Capsule) 100 mg PO TID [facility] Last Admin: 06/05/23 14:21 Dose: 100 mg Glucose (Glucose Gel 15 Gm Gel..Gram.) 15 gm PO Q15M PRN; Protocol PRN Reason: per Hypoglycemia Standing Ord. Metronidazole (Flagyl) 500 mg in 100 mls @ 100 mls/hr IV Q8H [facility] Last Infusion: 06/05/23 12:19 Dose: Infused Levofloxacin (Levaquin) 750 mg in 150 mls @ 100 mls/hr IV Q24H [facility] Last Admin: 06/05/23 14:19 Dose: 100 mls/hr Insulin Glargine (Insulin Glargine,Hum.Rec.Anlog 100 Unit/Ml 10 Ml Vial) 10 unit SUBCUT BEDTIME [facility] Last Admin: 06/04/23 21:17 Dose: 10 unit Insulin Human Lispro (Insulin Lispro 100 Unit/Ml 3 Ml Vial) 0 unit SUBCUT QIDACHS [facility]; Protocol Last Admin: 06/05/23 11:36 Dose: 2 unit Levothyroxine Sodium (Levothyroxine Sodium 75 Mcg Tablet) 75 mcg PO DAILY@0600 [facility] Last Admin: 06/05/23 04:57 Dose: 75 mcg Lidocaine (Lidocaine 4 % Patch Adh..Patch) 2 patch TRANSDERMA DAILY [facility]; Protocol Last Admin: 06/05/23 08:32 Dose: 2 patch Lisinopril (Lisinopril 40 Mg Tablet) 40 mg PO DAILY [facility]; Protocol Last Admin: 06/05/23 08:31 Dose: 40 mg Loperamide HCl (Loperamide Hcl 2 Mg Capsule) 4 mg PO Q6H PRN PRN Reason: Diarrhea Last Admin: 06/05/23 11:02 Dose: 4 mg Metoprolol Tartrate (Metoprolol Tartrate 50 Mg Tablet) 50 mg PO Q6H [facility]; Protocol Last Admin: 06/05/23 14:21 Dose: 50 mg Morphine Sulfate (Morphine Sulfate 2 Mg/Ml Cartridge) 2 mg IVPUSH Q4H PRN; Protocol PRN Reason: Pain, Moderate(Pain Scale 4-6) Last Admin: 06/05/23 14:37 Dose: 2 mg Omeprazole (Omeprazole 40 Mg Capsule.Dr) 40 mg PO DAILY@0630 [facility] Last Admin: 06/05/23 04:57 Dose: 40 mg Ondansetron HCl (Ondansetron Hcl 4 Mg/2 Ml Vial) 4 mg IVPUSH Q6H PRN PRN Reason: Nausea and Vomiting Last Admin: 06/03/23 16:39 Dose: 4 mg Pentoxifylline (Pentoxifylline Er 400 Mg Tablet.Er) 400 mg PO TID [facility] Last Admin: 06/05/23 14:21 Dose: 400 mg Venlafaxine HCl (Venlafaxine Hcl Er 150 Mg Cap.Er.24h) 150 mg PO DAILY [facility] Last Admin: 06/05/23 08:31 Dose: 150 mg Home Medications Medication Instructions Recorded Confirmed Last Taken Type hydrochlorothiazide 50 mg tablet 50 mg PO DAILY 02/29/20 05/21/23 05/25/23 History blood sugar diagnostic #10 ea 03/19/20 05/21/23 02/26/23 History hydroxyzine HCl 50 mg tablet 50 mg PO Q8H PRN anxiety 03/19/20 05/21/23 05/25/23 History lisinopril 40 mg tablet 40 mg PO DAILY 03/19/20 05/21/23 05/25/23 History metoprolol succinate 200 mg 200 mg PO DAILY 07/09/20 05/21/23 05/26/23 01:00 History tablet,extended release 24 hr trazodone 150 mg tablet 300 mg PO BEDTIME 07/09/20 05/21/23 05/25/23 History lancets 33 gauge (Jenelle Deldeja #100 ea 04/17/21 05/21/23 02/26/23 History Plus Lancet) verapamil 180 mg tablet,extended 360 mg PO DAILY 10/17/21 05/27/23 05/26/23 01:00 History release albuterol sulfate 0.63 mg/3 mL 1 amp inhalation Q4H PRN wheezing 03/24/22 05/21/23 Unknown History solution for nebulization levothyroxine 75 mcg tablet 75 mcg PO DAILY@0600 03/24/22 05/21/23 05/26/23 01:00 History multivitamin-ferrous 1 tab PO DAILY 03/24/22 05/21/23 05/25/23 History fumarate-folic acid 18 mg-400 mcg tablet (Certavite-Antioxidant) clonidine HCl 0.1 mg tablet 0.2 mg PO BEDTIME 02/28/23 05/21/2305/24/24 History cyanocobalamin (vitamin B-12) 1,000 mcg PO DAILY 02/28/23 05/21/23 05/25/23 History 1,000 mcg sublingual tablet dexlansoprazole 60 mg 60 mg PO DAILY@0630 02/28/23 05/21/23 05/26/23 01:00 History capsule,biphase delayed release empagliflozin 25 mg tablet 25 mg PO QAM 02/28/23 05/21/23 05/11/23 History (Jardiance) insulin glargine 100 unit/mL (3 34 unit subcut BEDTIME 02/28/23 05/21/23 05/25/23 History mL) subcutaneous pen (Lantus Solostar U-100 Insulin) pioglitazone 15 mg tablet 15 mg PO QAM 02/28/23 05/21/23 05/25/23 History semaglutide 0.25 mg or 0.5 mg (2 0.5 mg subcut MO@0900 02/28/23 05/21/23 05/11/23 History mg/3 mL) subcutaneous pen injector (Ozempic) venlafaxine 150 mg 150 mg PO DAILY 05/20/23 05/27/23 05/25/23 History capsule,extended release 24 hr fluticasone propionate 50 1 spray intranasal DAILY 05/25/23 05/26/23 05/25/23 History mcg/actuation nasal spray,suspension furosemide 40 mg tablet 40 mg PO DAILY 05/25/23 05/27/23 05/25/23 History fluticasone fur. 200 mcg-umeclid 1 ea inhalation DAILY 05/26/23 05/26/23 05/26/23 01:00 History 62.5 mcg-vilant 25 mcg inhalat.powder (Trelegy Ellipta) psyllium husk 3 gram/5.4 gram oral 3 g PO DAILY 05/27/23 05/27/23 Unknown History powder (Reguloid (psyllium husk)) Physical Exam 2 Vital Signs: Vital Signs: Last Vital Signs Temp 96.7 F L 06/05/23 15:20 Pulse 76 06/05/23 15:20 Resp 16 06/05/23 15:20 BP 180/76 H 06/05/23 14:24 Pulse Ox 96 06/05/23 15:20 O2 Del Method Room Air 06/05/23 15:20 O2 Flow Rate 2 06/04/23 14:22 FiO2 93 05/29/23 19:00 Oxygen Flow Rate 3 05/29/23 04:00 BMI result Body Mass Index 41.1 Const: General: no acute distress Orientation/consciousness: patient oriented x3 Neck: Neck: Yes no lymphadenopathy Resp: Other: Does not have shortness of breath Auscultation: clear to auscultation bilaterally Cardio: Rhythm: regular rhythm GI: Other: Has some tenderness on the left core quadrant, according to her not worse than baseline Palpation (GI): Soft to palpation, Tenderness to palpation present (GI) and no guarding Neuro: General: patient oriented x3 Results Labs 06/10/23 09:07 06/10/23 06:27 Labs: Abnormal lab results 06/04/23 06/04/23 06/05/23 Range/Units 16:08 20:06 05:46 WBC 18.7 H (4.8-10.8) X10*3/uL RBC 3.92 L (4.20-5.50) X10*6/uL Hgb 10.6 L (12.0-16.0) g/dl Hct 31.6 L (37.0-47.0) % Absolute Nucleated RBC 0.020 H (0.0-0.012) X10*3/uL Neutrophils % (Manual) 74 H (45-73) % Band Neutrophils % 6 H (3-5) % Lymphocytes % (Manual) 11 L (20-40) % Abs Neuts (Manual) 15.0 H (2.0-8.3) X10*3/uL Monocytes # (Manual) 1.3 H (0.1-1.2) X10*3/uL Potassium 3.0 L (3.3-5.1) mmol/L BUN 5 L (9-16) mg/dL POC Glucose 176 H 174 H (60-115) mg/dL Random Glucose 172 H (60-115) mg/dL Calcium 7.8 L (8.4-10.2) mg/dL 06/05/23 06/05/23 06/05/23 Range/Units 07:34 11:16 14:52 WBC (4.8-10.8) X10*3/uL RBC (4.20-5.50) X10*6/uL Hgb 11.4 L (12.0-16.0) g/dl Hct 33.7 L (37.0-47.0) % Absolute Nucleated RBC (0.0-0.012) X10*3/uL Neutrophils % (Manual) (45-73) % Band Neutrophils % (3-5) % Lymphocytes % (Manual) (20-40) % Abs Neuts (Manual) (2.0-8.3) X10*3/uL Monocytes # (Manual) (0.1-1.2) X10*3/uL Potassium (3.3-5.1) mmol/L BUN (9-16) mg/dL POC Glucose 171 H 155 H (60-115) mg/dL Random Glucose (60-115) mg/dL Calcium (8.4-10.2) mg/dL Short CBC 06/05/23 06/05/23 Range/Units 05:46 14:52 WBC 18.7 H (4.8-10.8) X10*3/uL Hgb 10.6 L 11.4 L (12.0-16.0) g/dl Hct 31.6 L 33.7 L (37.0-47.0) % Plt Count 400 D (160-400) X10*3/uL BMP 06/05/23 05:46 Sodium 141 Potassium 3.0 L Chloride 105 Carbon Dioxide 25 BUN 5 L Creatinine 0.61 Calcium 7.8 L Urine 05/29/23 Range/Units 13:08 Urine Color Dark Yellow Urine Appearance Clear Urine pH 5.0 (5.0-9.0) Ur Specific [place] >= 1.030 H (1.005-1.025) Urine Protein Trace (Neg-Trace) mg/dL Urine Glucose (UA) 250 H (Negative) mg/dL All other labs normal. Assessment and Plan (1) Ischemic colitis: Status: Acute She has had a complex perioperative course after left knee replacement last 05/26/2023. She has had left lower quadrant pain diarrhea. Flexible sigmoidoscopy done by GI breast ischemic colitis although this appears to be healing. However, she had an episode of passage of bright blood and clots, not large amounts, this afternoon. This is likely secondary to mucosal sloughing. Her CAT scan images showed thickening of the left colon sigmoid. Her abdominal exam is otherwise benign. Hemoglobin this afternoon was steady. The dilemma is whether to continue with coagulation in view of her passage of bright blood per rectum. She has been on Lovenox but this will probably be switched to heparin drip so this can be stopped promptly if she has significant bleeding. She can have clear liquids in the meantime. Despite her tenderness, her exam is otherwise benign. Findings on sigmoidoscopy shows healing of these mucosal ischemia. Surgical intervention is always a possibility she develops worsening. She will be followed closely by the surgical service The above has been discussed with the hospitalist service and the customer relations advisor. Procedures Date of Service Date of Service: 06/10/23
--- NOTE | 2023-06-05 15:32 | P.CDIM_ITS ---
PROVIDER RESPONSE TEXT: To clarify, the appropriate diagnosis supported by the clinical indicators: Toxic metabolic QUERY TEXT: PHYSICIAN'S DOCUMENTATION REQUEST Date of Query: 06/05/2023 08:46 AM EDT Patient Name: Lois Dalton Admit Date: 05/26/2023 Dear Belen Mireles, A review of the medical record indicates additional documentation may be needed. Please review below and update the documentation accordingly. Clinical Indicators: ICU progress note dated 05/31 - Hypotension S/P elective left knee arthroplasty 05/26 - complicated by encephalopathy likely medication related. Based on the above, please further specify, in the Progress Notes, the known or suspected type of the documented encephalopathy: Metabolic Septic Toxic Toxic metabolic Due to a specified condition (such as UTI, hyponatremia, CVA, etc.) Other (explain) Clinically unable to determine (explain) Thank you, Cathi Gomez, CCS, CDIS Use of terms such as suspected, likely, concern for, or probable (associated with a specific diagnosi s that is being evaluated, monitored, or treated as if it exists) are acceptable and can be coded in the inpatient se tting, when documented at the time of discharge. Please use your independent medical judgment in providing your response. THIS QUERY IS PART OF THE PERMANENT MEDICAL RECORD
--- NOTE | 2023-06-05 15:39 | MHC.CM.PN ---
per rounds pt not ready for dc
[2023-06-05 16:20] LABS: Glucose, Whole Blood 176 mg/dL (60-115)
--- NOTE | 2023-06-05 16:53 | PM.EVENT ---
Event Note Date of Service: 06/08/23 Event Note: had another episode of large amount of blood per rectum at around 430 remains hemodynamically stable plan to do bleeding scan - if positive, will need to send for angio for control looks stable at this time pt cannot have transfusion of blood products - Orthodox bleeding likely provoked by anticoagulation, with mucosal sloughing from ischemia hold anticoagulation at risk for progression of PE as well explained above to family at bedside Time Spent With Patient Time: Total time managing care of this patient today ____ minutes.
--- NOTE | 2023-06-05 17:53 | PC.NURSE ---
1620 P: Pt with a large amount of rectal bleeding and large clots noted. I: Photo with pt consent taken and sent to Belen. PATTYS. HH, PT and lactic drawn, all WNL. Pt c/o abdominal cramping. States mild dizziness unchanged from this morning. Dr Hernandez along with Belen Mireles at bedside to see pt. Pt and son at bedside. Plan discussed, bleeding scan ordered. Pt currently SR on tele. To be placed on [employer] unit. 1700 E: Report called to Sangeeta on [email or web address] tele, pt transferred via bed.
[2023-06-05 19:48] LABS: Hematocrit 30.8 % (37.0-47.0); Hemoglobin 10.4 g/dl (12.0-16.0)
--- NOTE | 2023-06-05 20:35 | P.DS_ITS ---
DS: Providers Provider Date of Service: 06/20/23 Date of admission: 05/26/23 07:16 Date of discharge: 06/20/23 Primary care physician: Breanna Zamudio NP Consults: 05/26/23 20:10 Consult to Urology Routine Consulting Provider: Cheng Sears Reason for consultation: neurogenic bladder s/p spinal block 06/03/23 09:18 Consult to Gastroenterology Routine Consulting Provider: Ludmila Walker Reason for consultation: Worsening diverticulitis Has provider been notified: No 06/05/23 14:39 Consult to Vascular Surgery Routine Consulting Provider: [facility] Vascular Services Reason for consultation: PE on lovenox with rectal bleeding ? IVC filter Has provider been notified: No 06/05/23 14:40 Consult to Hematology / Oncology Routine Consulting Provider: Meli Marsh Reason for consultation: acute PE, rectal bleeding Has provider been notified: No 06/05/23 14:43 Consult to General Surgery Routine Consulting Provider: [facility] General Surgeons Reason for consultation: ischemic colitis, rectal bleeding Has provider been notified: No Attending physician on discharge: Pancho Lara Discharging clinician: Belen Mireles DS: Diagnosis Discharge Diagnosis (1) Pulmonary embolism: Status: Acute (2) Ischemic colitis: Status: Acute (3) Status post knee replacement: Status: Acute (4) Urinary retention: Status: Acute DS: Summary Hospital Course Hospital Course: Patient was admitted for elective left total knee arthroplasty which was completed on 05/25. POD #1 was uneventful. On the afternoon of 05/27 she was noted to be lethargic with pinpoint pupils and was treated with narcan with good effect. She had a rapid response with similar circumstances early the next morning and was also hypotensive. She did not respond to fluids and was transferred to the ICU on the morning of 05/28 for ongoing hypotension. In the ICU she was started on levophed drip. She was empirically started on broad spectrum antibiotics. CTA was done showing b/l segmental PE and she was started on therapeutic lovenox. US of LLE was negative for DVT. Echocardiogram was negative for right heart strain. She initially required low dose supplemental oxygen but was able to be weaned off after a short time. She then began having diarrhea and imaging of the abdomen was consistent with colitis. She was continued on zosyn, vanco was stopped and she was titrated off pressors. She was downgraded to the medical floor on 06/01. Due to persistent pain and diarrhea she had repeat imaging which showed ongoing colits. Antibiotics were changed to levaquin and Flagyl on 06/01 but there with no change in symptoms or diarrhea. GI was consulted and thought likely diagnosis was ischemic colitis but recommended sigmoidoscopy to rule out other possible causes. on 06/03 she underwent sigmoidoscopy which showed thick slough covering mucosa, areas exposed were friable and inflamed - per GI it appeared to be consistent with healing ischemic colitis. Blood cultures have remained negative. On the afternoon of 06/04 the pat ient began having significant rectal bleeding with clots. Her lovenox was placed on hold (last dose 06/04 at 8:30am). H/H and vitals initially remained stable. She was seen by surgery and no surgical intervention was planned. Repeat lactic acid was normal. She continued to have rectal bleeding and was sent for bleeding scan which was negative. 06/05 her bleeding seemed to have tapered off and her H/ H remained stable but overnight she had significant bleeding again. IR at [facility] recommended CTA which did not localize source of bleeding. The patient is a [employer] and will not accept blood or blood products. She was treated with IV iron, b12, folic acid supplementation. There was no indication for transfer to tertiary care facility. Gradually bleeding tapered off and H/H remained stable. IVC filter was placed by vascular surgery. She was started on IV heparin on 06/13 which she tolerated well and was transitioned to Eliquis on June 14. Unfortunately inpatient had recurrent bleeding starting on June 15 and subsequently her anticoagulation was placed on hold again. She had bleeding for a few days but no bleeding for 48 hours and H/H has remained stable for several days and is 8.4/27.6 on the day of discharge. After discussion with hematology and GI was determined that she should stay off anticoagulation for approximately 2 weeks and have repeat CBC prior to resuming Eliquis. She should follow up with her PCP. She completed full course of antibiotics during her hospitalization. Patient had urinary retention required Hylton placement on multiple occasions. Hylton has been removed and she has been voiding on her own after starting on Flomax. In addition to the above she also had urinary retention and hylton catheter was placed 06/01 after failing her first voiding trail. For left TKA orthopedic surgery has been following. She has not been agreeable for full participation with PT during her hospital stay. Physical therapy has recommended half-way facility for ongoing physical therapy however patient has declined and has elected to return home. Hospital course by problem: Pulmonary embolus CTA 05/28 with bilateral nonocclusive segmental pulmonary emboli no respiratory symptoms, continues to remain on room air echo with no evidence of right heart strain Left lower extremity ultrasound negative for DVT s/p IVC filter 06/07 - no follow up with vascuar surgery necessary started IV heparin 06/13 after being off ac for 8 days, transitioned to eliquis 06/15/23 but patient had bleeding episode on 06/16/23 and drop in HH. AC stopped again AC now on hold - CBC will be repeated on Sunday 06/25 and plan to resume Eliquis 06/29 if H/H stable. Will need 3 months of antigoagulation. Rectal bleeding/acute blood loss anemia likely due to ischemic colitis from hypotension seen by hematology, as unable to receive blood products (Taoist), treated with IV iron and received one dose of procrit Bleeding scan negative and CTA abdomen/pelvis 06/06 with no extravasation to suggest site of GI bleeding d/t repeat rectal bleeding, no ac at this time as above Urinary retention (likely secondary to anesthesia/opiates). started on Flomax 0.4mg daily. hylton removed and now voiding independently. pt reported some pelvic pressure and dysuria therefore a repeat urinalysis was collected. Symptoms likely related to urinary retention, pelvic pressure and dysuria now resolved without treatment. But urine with white cells and bacteria, will discharge with ceftin for UTI. Urine culture pending at the time of discharge. Ischemic Colitis seen by GI, underwent sigmoidoscopy 06/03 - c/w with healing ischemic colitis completed course of IV Levaquin/Flagyl OA s/p L TKA 05/25 PT - patient has been noncompliant with physical therapy. will need outpatient follow up with orthopedics Hypokalemia. Resolved Type 2 diabetes Continue SSI, lantus dose decreased during hospitalization. blood sugars have been controlled. con resume metformin and jardiance upon discharge. hold pioglitozone until follow up with pcp. HTN Lisinopril 20mg , metoprolol xl restarted 06/09 lasix, HCTZ, clonidine and verapamil on hold. stop on discharge as BP has been wnl and to avoid hypotension Time Attestation Discharge Coordination Time (in mins): 45 Quality: Safe Use of Opioids Does Pt have an Active Cancer Diagnosis on the Problem List?: No Quality: Stroke Does the patient have a stroke diagnosis?: No Physical Exam Vital Signs: Vital Signs: Last Vital Signs Temp 98.2 F 06/05/23 17:23 Pulse 88 06/05/23 17:23 Resp 18 06/05/23 17:23 BP 177/84 H 06/05/23 17:23 Pulse Ox 96 06/05/23 17:23 O2 Del Method Room Air 06/05/23 17:23 O2 Flow Rate 2 06/04/23 14:22 FiO2 93 05/29/23 19:00 Oxygen Flow Rate 3 05/29/23 04:00 BMI result Body Mass Index 37.7 Const: General: cooperative, comfortable, no acute distress, alert and awake Nutritional Appearance: obese Orientation/consciousness: patient oriented x3 Resp: Effort & Inspection: normal respiratory effort, able to speak in complete sentences, no respiratory distress and no use of accessory muscles Auscultation: clear to auscultation bilaterally Cardio: Rate: regular rate GI: Inspection: No distended Palpation (GI): Soft to palpation and nontender Neuro: General: patient oriented x3 DS: Data Data Completed and Pending Completed studies during hospitalization [Text1]: Pending at discharge 05/26/23 10:21 Surgical [PTH] Routine Pending studies at discharge: Pending at discharge 06/04/23 15:06 Surgical [PTH] Routine Labs on day of discharge: Laboratory Results - last 24 hr 06/05/23 06/05/23 06/05/23 05:46 07:34 11:16 WBC 18.7 H RBC 3.92 L Hgb 10.6 L Hct 31.6 L MCV 80.6 MCH 27.0 MCHC 33.5 RDW 14.7 Plt Count 400 D MPV 9.7 Immature Gran % (Auto) Cancelled Neut % (Auto) Cancelled Lymph % (Auto) Cancelled [facility] % (Auto) Cancelled Eos % (Auto) Cancelled Baso % (Auto) Cancelled Lymph # (Auto) Cancelled [facility] # (Auto) Cancelled Eos # (Auto) Cancelled Baso # (Auto) Cancelled Abs Immat Gran (auto) Cancelled Absolute Neuts (auto) Cancelled Absolute Nucleated RBC 0.020 H Nucleated RBC % (auto) 0.1 Neutrophils % (Manual) 74 H Band Neutrophils % 6 H Lymphocytes % (Manual) 11 L Monocytes % (Manual) 7 Eosinophils % (Manual) 1 Metamyelocytes % 1 Abs Neuts (Manual) 15.0 H Lymphocytes # (Manual) 2.1 Monocytes # (Manual) 1.3 H Eosinophils # (Manual) 0.2 Metamyelocytes # 0.2 Platelet Estimate NORMAL Plt Morphology Comment NORMAL RBC Morphology NOTED Polychromasia 1+ (0-2) Hypochromasia 1+ (5-14) PT INR Sodium 141 Potassium 3.0 L Chloride 105 Carbon Dioxide 25 Anion Gap 14 BUN 5 L Creatinine 0.61 Estim Creat Clear Calc 97.3 Estimated GFR > 60 POC Glucose 171 H 155 H Random Glucose 172 H Lactic Acid Calcium 7.8 L Magnesium 1.6 06/05/23 06/05/23 06/05/23 14:52 15:08 16:12 WBC RBC Hgb 11.4 L Hct 33.7 L MCV MCH MCHC RDW Plt Count MPV Immature Gran % (Auto) Neut % (Auto) Lymph % (Auto) [facility] % (Auto) Eos % (Auto) Baso % (Auto) Lymph # (Auto) [facility] # (Auto) Eos # (Auto) Baso # (Auto) Abs Immat Gran (auto) Absolute Neuts (auto) Absolute Nucleated RBC Nucleated RBC % (auto) Neutrophils % (Manual) Band Neutrophils % Lymphocytes % (Manual) Monocytes % (Manual) Eosinophils % (Manual) Metamyelocytes % Abs Neuts (Manual) Lymphocytes # (Manual) Monocytes # (Manual) Eosinophils # (Manual) Metamyelocytes # Platelet Estimate Plt Morphology Comment RBC Morphology Polychromasia Hypochromasia PT 12.7 INR 1.0 Sodium Potassium Chloride Carbon Dioxide Anion Gap BUN Creatinine Estim Creat Clear Calc Estimated GFR POC Glucose 176 H Random Glucose Lactic Acid 1.1 Calcium Magnesium 06/05/23 19:43 WBC RBC Hgb 10.4 L Hct 30.8 L MCV MCH MCHC RDW Plt Count MPV Immature Gran % (Auto) Neut % (Auto) Lymph % (Auto) [facility] % (Auto) Eos % (Auto) Baso % (Auto) Lymph # (Auto) [facility] # (Auto) Eos # (Auto) Baso # (Auto) Abs Immat Gran (auto) Absolute Neuts (auto) Absolute Nucleated RBC Nucleated RBC % (auto) Neutrophils % (Manual) Band Neutrophils % Lymphocytes % (Manual) Monocytes % (Manual) Eosinophils % (Manual) Metamyelocytes % Abs Neuts (Manual) Lymphocytes # (Manual) Monocytes # (Manual) Eosinophils # (Manual) Metamyelocytes # Platelet Estimate Plt Morphology Comment RBC Morphology Polychromasia Hypochromasia PT INR Sodium Potassium Chloride Carbon Dioxide Anion Gap BUN Creatinine Estim Creat Clear Calc Estimated GFR POC Glucose Random Glucose Lactic Acid Calcium Magnesium Imaging CT scan - chest: Radiologist's impression: ITS Impressions Knee X-Ray 05/26/23 12:40 IMPRESSION: Appropriate alignment of the left total knee arthroplasty. Chest X-Ray 05/29/23 04:33 IMPRESSION: No acute cardiopulmonary disease. Chest X-Ray 05/29/23 07:50 IMPRESSION: 1. Interval successful placement of Right internal jugular central line ending at expected location of superior vena cava. 2. No pneumothorax. 3. Unchanged Borderline cardiomegaly without signs of congestive heart failure. Venous Duplex 05/29/23 09:11 IMPRESSION: No evidence of deep vein thrombosis in the left lower extremity. Chest CTA 05/29/23 13:23 IMPRESSION: Bilateral nonocclusive segmental pulmonary emboli. No evidence of right heart strain or pulmonary infarct. Fleischner guidelines were followed. This critical test result was discussed with Maya Rae at 1521 on 05/29/[address] Williams Heard at the time of discovery. It was ascertained that the content and the importance of the findings was understood at the time of the direct communication. Head CT 05/29/23 13:23 IMPRESSION: No acute intracranial pathology. Sinus disease. Abdomen/Pelvis CT 05/30/23 13:56 IMPRESSION: * Abnormal fluid distention of the small bowel loops and colon with scattered air-fluid levels. Findings are consistent with a gastroenteritis and colitis. No evidence of bowel obstruction or perforation. * Trace bilateral pleural effusions, larger on the right than the left. Abdomen/Pelvis CT 06/02/23 13:35 IMPRESSION: Diffuse mural thickening involving the descending and sigmoid: To the splenic flexure most likely inflammatory or infectious colitis. There are diffuse scattered diverticuli in the descending and sigmoid colon but no suspicion for diverticulitis. Previously seen distended small bowel loops with air-fluid levels have improved. There is abdominal wall and mesenteric edema. Minimal fluid in the paracolic gutters. Small umbilical hernia. Fleischner guidelines were followed. Discharge Plan Discharge Anticipated Discharge Date/Time: 06/20/23 11:33 Patient Disposition: Home Health Service Discharge Diagnosis: lt tka acute blood loss anemia ischemic colitis urinary retention Referrals: Svitlana UNDERWOOD [Outside] - 1 Day Ludmila Walker MD [Physician] - 1 Week Catarino Nava PA-C [Physician [employer]] - 2 Weeks (06/11/23 13:00 [facility] Orthopedic Surgeons Catarino Nava PA-C) Discharge Medications: New docusate sodium 100 mg Capsule 100 mg PO BID 14 Days Qty: 28 0RF oxycodone 5 mg Tablet 5 mg PO Q8H PRN (Reason: Pain, Severe (Pain Scale 7-10)) Qty: 20 0RF Rx Instructions: Partial Fill upon patient request. Eliquis 5 mg tablet 5 mg PO BID 90 Days Qty: 180 0RF Rx Instructions: start taking on 06/29 tamsulosin 0.4 mg Capsule 0.4 mg PO DAILY 90 Days Qty: 90 0RF lisinopril 20 mg Tablet 20 mg PO DAILY 90 Days Qty: 90 0RF Protocol: Hold for SBP< HOLD for SBP < : 90 gabapentin 100 mg Capsule 100 mg PO TID 90 Days Qty: 270 0RF (DME) bedside commode Kit See Rx Instructions .Route Qty: 1 0RF Rx Instructions: As directed cefuroxime axetil 250 mg tablet 250 mg PO Q12H 5 Days Qty: 10 0RF Continued mecobalamin (vitamin B12) 1,000 mcg tablet,chewable 1,000 mcg PO DAILY 30 Days Qty: 30 11RF cholecalciferol (vitamin D3) 50 mcg (2,000 unit) tablet 50 mcg PO QAM Qty: 30 11RF rosuvastatin 40 mg tablet 40 mg PO DAILY Qty: 30 11RF (DME) FreeStyle [place] 2 [place] [facility] See Rx Instructions .Route Qty: 1 0RF Rx Instructions: As directed (DME) FreeStyle Manuelito 2 Sensor Kit See Rx Instructions .Route Qty: 2 5RF Rx Instructions: As directed change every 14 days meclizine 25 mg tablet 25 mg PO DAILY PRN (Reason: dizziness) Qty: 20 0RF albuterol sulfate 0.63 mg/3 mL solution for nebulization 1 amp inhalation Q4H PRN (Reason: wheezing) Certavite-Antioxidant 18-400 mg-mcg tablet 1 tab PO DAILY levothyroxine 75 mcg tablet 75 mcg PO DAILY@0600 albuterol sulfate [Ventolin HFA] 90 mcg/actuation HFA aerosol inhaler 90 mcg inhalation Q4H PRN (Reason: Wheezing) Qty: 8.5 0RF ondansetron 4 mg tablet,disintegrating 4 mg PO Q6-8H PRN (Reason: nausea and vomiting) Qty: 10 0RF Trelegy Ellipta 200-62.5-25 mcg blister with device 1 ea inhalation DAILY Reguloid (psyllium husk) 3 gram/5.4 gram powder 3 g PO DAILY Jardiance 25 mg tablet 25 mg PO QAM cyanocobalamin (vitamin B-12) 1,000 mcg tablet, sublingual 1,000 mcg PO DAILY dexlansoprazole 60 mg capsule,biphase delayed releas 60 mg PO DAILY@0630 (DME) blood sugar diagnostic Strip See Rx Instructions Not Applicable BID Qty: 10 Rx Instructions: As directed metoprolol succinate 200 mg tablet extended release 24 hr 200 mg PO DAILY (DME) lancets [OneTouch Delica Plus Lancet] 33 gauge misc See Rx Instructions topical .MEDSUPPLY Qty: 100 Rx Instructions: As directed metformin 500 mg tablet extended release 24 hr 1,000 mg PO BID 30 Days Qty: 120 11RF fluticasone propionate 50 mcg/actuation spray,suspension 1 spray intranasal DAILY venlafaxine 150 mg capsule,extended release 24hr 150 mg PO DAILY Linzess 290 mcg capsule 290 mcg PO QAM Qty: 30 6RF Changed insulin glargine [Lantus Solostar U-100 Insulin] 100 unit/mL (3 mL) insulin pen 20 unit subcut BEDTIME Qty: 15 0RF Patient Comments: took 17 units only on 05/25/23 pm Held pioglitazone 15 mg tablet 15 mg PO QAM Hold Instructions: hold until follow up with PCP Ozempic 0.25 mg or 0.5 mg (2 mg/3 mL) pen injector 0.5 mg subcut MO@0900 Hold Instructions: hold until follow up with PCP Discontinued acetaminophen 650 mg tablet extended release 650 mg PO Q8H PRN (Reason: pain) Qty: 90 3RF gabapentin 100 mg capsule 300 mg PO BEDTIME Qty: 90 0RF aspirin 81 mg tablet,delayed release (DR/EC) 1 tab PO DAILY clonidine HCl 0.1 mg tablet 0.2 mg PO BEDTIME hydrochlorothiazide 50 mg tablet 50 mg PO DAILY tramadol 50 mg tablet 50 mg PO TID PRN (Reason: Pain) lisinopril 40 mg tablet 40 mg PO DAILY hydroxyzine HCl 50 mg tablet 50 mg PO Q8H PRN (Reason: anxiety) trazodone 150 mg tablet 300 mg PO BEDTIME verapamil 180 mg tablet extended release 360 mg PO DAILY furosemide 40 mg tablet 40 mg PO DAILY Discharge Orders: Discharge Order (Routine); Ordered 06/20/23 Ordered By: Belen Mireles Diet: Regular diet Activity on Discharge: As tolerated Stand Alone Forms: Patient Portal Discharge page Print Language: Bhutanese Other Ambulatory Orders: Complete Blood Count Auto Diff (Routine) Timeframe: [id number] Facility: [facility] - Location: Laboratory Ordered By: Belen Mireles Care Plan Goals: see blow Health Concerns: Acute blood loss anemia Ischemic colitis Acute bilateral PE Urinary retention Plan of Treatment: Physical Therapy Pain management DVT prophylaxis Assessment: Physical Therapy for Total knee arthroplasty: WBAT, gait training, ROM 0-12, quad strength * Limit stair climbing * No driving x6 weeks * Follow up with [facility] Orthopedics 07/09/23 at 12:15pm: Return to the emergency department with any shortness of breath or rectal bleeding repeat CBC Sunday 06/25 start taking Eliquis on Thursday 06/29 if CBC from 06/25 is stable call to schedule follow up appointment with PCP as soon as possible there have been multiple adjustments to medications - see above for details check blood sugar before meals and at bedtime complete antibitics for UTI Discharge Date/Time: 06/20/23 14:43
[2023-06-05 20:37] LABS: Glucose, Whole Blood 217 mg/dL (60-115)
[2023-06-05] MEDS: Acetaminophen 1,000 MG/100 ML PIGGYBACK 400 MG IV (22:12)
[2023-06-05 22:58] LABS: Hematocrit 27.1 % (37.0-47.0); Hemoglobin 9.3 g/dl (12.0-16.0)
[2023-06-06] VITALS (8 sets, daily range): BP systolic 142–172; BP diastolic 65–74; PULSE 86–112; RESP 18–20; TEMP 36.1–36.6; O2SAT 94–98
[2023-06-06] MEDS: Melatonin 3 MG TABLET PO (01:34)
[2023-06-06 03:15] LABS: Hematocrit 26.6 % (37.0-47.0); Hemoglobin 8.9 g/dl (12.0-16.0); Mean Corpuscular HGB Conc 33.5 g/dl (31.0-35.0); Mean Corpuscular Volume 80.6 fL (80.0-98.0); Mean Platelet Volume 9.6 fL (9.4-12.3); NRBC Pct Auto 0.2 /100WBC (0.0-0.2); Platelet Count 487 X10*3/uL (160-400); Red Cell Distribution Width 14.6 % (11.0-16.0); White Blood Count 27.6 X10*3/uL (4.8-10.8)
[2023-06-06 03:26] LABS: Anion Gap 18 (12-20); Blood Urea Nitrogen 5 mg/dL (9-16); Calcium 7.6 mg/dL (8.4-10.2); Carbon Dioxide 20 mmol/L (22-29); Chloride 105 mmol/L (96-108); Creatinine Clr Calc Pharmacy 92.7; Estimated Glomerular Filt Rate > 60; Glucose Random 224 mg/dL (60-115); Sodium 140 mmol/L (135-145)
[2023-06-06] MEDS: Acetaminophen 1,000 MG/100 ML PIGGYBACK 400 MG IV ×3 (03:38→16:23)
[2023-06-06] MEDS: Lactated Ringers 1,000 ML 125 ML IVCONT ×3 (03:39→21:14)
[2023-06-06] MEDS: metroNIDAZOLE/NS 500 MG/100 ML PIGGYBACK 100 MG IV ×3 (03:39→21:13)
[2023-06-06] MEDS: Pantoprazole Sodium 40 MG/10 ML VIAL IVPUSH ×2 (06:21→16:16)
[2023-06-06] MEDS: Levothyroxine Sodium 75 MCG TABLET PO (06:21)
[2023-06-06 08:13] LABS: Glucose, Whole Blood 192 mg/dL (60-115)
[2023-06-06 08:55] LABS: Hematocrit 27.2 % (37.0-47.0); Hemoglobin 9.1 g/dl (12.0-16.0); Mean Corpuscular HGB Conc 33.5 g/dl (31.0-35.0); Mean Corpuscular Hemoglobin 27.2 pg (27.0-33.0); Mean Corpuscular Volume 81.4 fL (80.0-98.0); Mean Platelet Volume 9.6 fL (9.4-12.3); NRBC Pct Auto 0.1 /100WBC (0.0-0.2); Platelet Count 513 X10*3/uL (160-400); Red Blood Count 3.34 X10*6/uL (4.20-5.50); Red Cell Distribution Width 14.8 % (11.0-16.0); White Blood Count 22.1 X10*3/uL (4.8-10.8)
[2023-06-06 09:20] LABS: Atypical Lymph Absolute Manual 0.2 x10*3/uL; Atypical Lymphs Percent Manual 1 % (0-6); Band Neutrophils Percent 15 % (3-5); Lymphocytes Absolute Manual 1.3 X10*3/uL (1.2-4.9); Lymphocytes Percent Manual 6 % (20-40); Metamyelocytes Absolute 1.5 X10*3/uL; Metamyelocytes Percent 7 %; Monocytes Absolute Manual 0.9 X10*3/uL (0.1-1.2); Monocytes Percent Manual 4 % (2-11); Neutrophils Absolute Manual 18.1 X10*3/uL (2.0-8.3); Neutrophils Percent Manual 67 % (45-73)
[2023-06-06 09:21] LABS: Hypochromasia 1+ (5-14) /OIF; Platelet Estimate SLIGHTLY INCREASED (NORMAL); Platelet Morphology Comment NORMAL; Polychromasia 1+ (0-2) /OIF; RBC Morphology NOTED
[2023-06-06] MEDS: Lidocaine 4 % Patch ADH..PATCH 2 PATCH TRANSDERMA (10:08)
[2023-06-06] MEDS: Venlafaxine HCl ER 150 MG CAP.ER.24H PO (10:08)
[2023-06-06] MEDS: Gabapentin 100 MG CAPSULE PO ×3 (10:08→21:13)
[2023-06-06] MEDS: Pentoxifylline ER 400 MG TABLET.ER PO ×3 (10:08→21:13)
[2023-06-06] MEDS: Potassium Chloride Packet 20 MEQ PACKET 40 MEQ PO ×2 (10:08→21:14)
[2023-06-06 11:12] LABS: Glucose, Whole Blood 195 mg/dL (60-115)
--- NOTE | 2023-06-06 11:13 | HO.PM.IMPN ---
Subjective Subjective Date of Service: 06/06/23 Interval History: seen and examined this morning follow up for PE, colitis, rectal bleeding Rectal bleeding continued overnight, still ongoing but appears to be slowing down to some degree Left lower quadrant abdominal pain improving per patient. No nausea, vomiting Review of Systems Review of Systems: Yes all other systems are reviewed and are negative Constitutional Constitutional: Denies chills and Denies fever(s) Cardiovascular Cardiovascular: Denies chest pain and Denies dyspnea Respiratory Respiratory: Denies dyspnea Gastrointestinal Gastrointestinal: Denies nausea and Denies vomiting Physical Exam Vital Signs: Vital Signs: Last Vital Signs Temp 97.6 F 06/06/23 06:26 Pulse 96 06/06/23 06:26 Resp 20 06/06/23 06:26 BP 150/68 H 06/06/23 06:26 Pulse Ox 97 06/06/23 03:34 O2 Del Method Room Air 06/06/23 06:26 O2 Flow Rate 96 06/06/23 06:26 FiO2 93 05/29/23 19:00 Oxygen Flow Rate 3 05/29/23 04:00 BMI result Body Mass Index 37.7 Const: General: cooperative, comfortable, alert and awake Nutritional Appearance: obese Orientation/consciousness: patient oriented x3 Resp: Effort & Inspection: normal respiratory effort, able to speak in complete sentences, no respiratory distress and no use of accessory muscles Cardio: Rate: regular rate GI: Other: soft, non-distended; TTP LLQ - less tender, no rebound +BS Inspection: No distended Palpation (GI): Soft to palpation : Other: hylton in place draining clear yellow urine Neuro: General: patient oriented x3 Extrem: Other: left knee with dry intact bandage Objective Data Active Medications Albuterol Sulfate (Albuterol Sulfate 90 Mcg 8 Gm Inhaler) 2 puff INHALE RQ4H PRN PRN Reason: Wheezing Albuterol/Ipratropium (Albuterol/Iprat 2.5/0.5mg 3 Ml Ampul.Neb) 3 ml INHALE RQ4H WHILE AWAKE PRN PRN Reason: Wheezing Clonidine HCl (Clonidine Hcl 0.2 Mg Tablet) 0.2 mg PO BEDTIME [facility]; Protocol Last Admin: 06/04/23 21:17 Dose: 0.2 mg Documented By: LO Dextrose (Dextrose 50 % 25 Gm/50 Ml Syringe) 25 gm IVPUSH Q15M PRN; Protocol PRN Reason: per Hypoglycemia Standing Ord. Gabapentin (Gabapentin 100 Mg Capsule) 100 mg PO TID [facility] Last Admin: 06/06/23 10:08 Dose: 100 mg Documented By: MAYCOL Glucose (Glucose Gel 15 Gm Gel..Gram.) 15 gm PO Q15M PRN; Protocol PRN Reason: per Hypoglycemia Standing Ord. Metronidazole (Flagyl) 500 mg in 100 mls @ 100 mls/hr IV Q8H [facility] Last Infusion: 06/06/23 04:40 Dose: Infused Documented By: GEOFF Levofloxacin (Levaquin) 750 mg in 150 mls @ 100 mls/hr IV Q24H [facility] Last Infusion: 06/05/23 16:04 Dose: Infused Documented By: MICH Lactated Ringer's (Lr) 1,000 mls @ 125 mls/hr IVCONT .Q8H [facility] Last Admin: 06/06/23 10:10 Dose: 125 mls/hr Documented By: MAYCOL Acetaminophen (Ofirmev) 1,000 mg in 100 mls @ 400 mls/hr IV Q6H [facility] Last Infusion: 06/06/23 10:37 Dose: Infused Documented By: MAYCOL Iron Sucrose 200 mg/ Sodium (Chloride) 110 mls @ 440 mls/hr IV DAILY [facility] Stop: 06/10/23 11:14 Insulin Glargine (Insulin Glargine,Hum.Rec.Anlog 100 Unit/Ml 10 Ml Vial) 10 unit SUBCUT BEDTIME [facility] Last Admin: 06/04/23 21:17 Dose: 10 unit Documented By: LO Insulin Human Lispro (Insulin Lispro 100 Unit/Ml 3 Ml Vial) 0 unit SUBCUT QIDACHS [facility]; Protocol Last Admin: 06/06/23 09:22 Dose: Not Given Documented By: MAYCOL Non-Admin Reason: NPO Levothyroxine Sodium (Levothyroxine Sodium 75 Mcg Tablet) 75 mcg PO DAILY@0600 [facility] Last Admin: 06/06/23 06:21 Dose: 75 mcg Documented By: GEOFF Lidocaine (Lidocaine 4 % Patch Adh..Patch) 2 patch TRANSDERMA DAILY [facility]; Protocol Last Admin: 06/06/23 10:08 Dose: 2 patch Documented By: MAYCOL Loperamide HCl (Loperamide Hcl 2 Mg Capsule) 4 mg PO Q6H PRN PRN Reason: Diarrhea Last Admin: 06/05/23 11:02 Dose: 4 mg Documented By: MICH Morphine Sulfate (Morphine Sulfate 2 Mg/Ml Cartridge) 2 mg IVPUSH Q4H PRN; Protocol PRN Reason: Pain, Moderate(Pain Scale 4-6) Last Admin: 06/05/23 14:37 Dose: 2 mg Documented By: MICH Ondansetron HCl (Ondansetron Hcl 4 Mg/2 Ml Vial) 4 mg IVPUSH Q6H PRN PRN Reason: Nausea and Vomiting Last Admin: 06/03/23 16:39 Dose: 4 mg Documented By: SRI Pantoprazole Sodium (Pantoprazole Sodium 40 Mg/10 Ml Vial) 40 mg IVPUSH BID@0630,1630 [facility] Last Admin: 06/06/23 06:21 Dose: 40 mg Documented By: GEOFF Pentoxifylline (Pentoxifylline Er 400 Mg Tablet.Er) 400 mg PO TID [facility] Last Admin: 06/06/23 10:08 Dose: 400 mg Documented By: MAYCOL Potassium Chloride (Potassium Chloride Packet 20 Meq Packet) 40 meq PO BID [facility] Stop: 06/06/23 21:01 Last Admin: 06/06/23 10:08 Dose: 40 meq Documented By: MAYCOL Venlafaxine HCl (Venlafaxine Hcl Er 150 Mg Cap.Er.24h) 150 mg PO DAILY [facility] Last Admin: 06/06/23 10:08 Dose: 150 mg Documented By: MAYCOL Labs 06/06/23 08:50 06/06/23 03:03 Labs: Laboratory Results - last 24 hr 06/05/23 06/05/23 06/05/23 11:16 14:52 15:08 MCV MCH MCHC RDW Plt Count MPV Immature Gran % (Auto) Neut % (Auto) Lymph % (Auto) [place] % (Auto) Eos % (Auto) Baso % (Auto) Lymph # (Auto) [place] # (Auto) Eos # (Auto) Baso # (Auto) Abs Immat Gran (auto) Absolute Neuts (auto) Absolute Nucleated RBC Nucleated RBC % (auto) Neutrophils % (Manual) Band Neutrophils % Lymphocytes % (Manual) Atypical Lymphs % (Man) Monocytes % (Manual) Metamyelocytes % Abs Neuts (Manual) Lymphocytes # (Manual) Atyp Lymphs # (Manual) Monocytes # (Manual) Metamyelocytes # Platelet Estimate Plt Morphology Comment RBC Morphology Polychromasia Hypochromasia PT 12.7 INR 1.0 Anion Gap Estim Creat Clear Calc Estimated GFR POC Glucose 155 H Random Glucose Lactic Acid 1.1 Calcium 06/05/23 06/05/23 06/06/23 16:12 20:31 03:03 MCV MCH MCHC RDW Plt Count MPV Immature Gran % (Auto) Neut % (Auto) Lymph % (Auto) [place] % (Auto) Eos % (Auto) Baso % (Auto) Lymph # (Auto) [place] # (Auto) Eos # (Auto) Baso # (Auto) Abs Immat Gran (auto) Absolute Neuts (auto) Absolute Nucleated RBC Nucleated RBC % (auto) Neutrophils % (Manual) Band Neutrophils % Lymphocytes % (Manual) Atypical Lymphs % (Man) Monocytes % (Manual) Metamyelocytes % Abs Neuts (Manual) Lymphocytes # (Manual) Atyp Lymphs # (Manual) Monocytes # (Manual) Metamyelocytes # Platelet Estimate Plt Morphology Comment RBC Morphology Polychromasia Hypochromasia PT INR Anion Gap 18 Estim Creat Clear Calc 92.7 Estimated GFR > 60 POC Glucose 176 H 217 H Random Glucose 224 H Lactic Acid Calcium 7.6 L 06/06/23 06/06/23 06/06/23 03:05 08:05 08:50 MCV 80.6 81.4 MCH 27.0 27.2 MCHC 33.5 33.5 RDW 14.6 14.8 Plt Count 487 H 513 H MPV 9.6 9.6 Immature Gran % (Auto) Cancelled Neut % (Auto) Cancelled Lymph % (Auto) Cancelled [place] % (Auto) Cancelled Eos % (Auto) Cancelled Baso % (Auto) Cancelled Lymph # (Auto) Cancelled [place] # (Auto) Cancelled Eos # (Auto) Cancelled Baso # (Auto) Cancelled Abs Immat Gran (auto) Cancelled Absolute Neuts (auto) Cancelled Absolute Nucleated RBC 0.060 H 0.030 H Nucleated RBC % (auto) 0.2 0.1 Neutrophils % (Manual) 67 Band Neutrophils % 15 H Lymphocytes % (Manual) 6 L Atypical Lymphs % (Man) 1 Monocytes % (Manual) 4 Metamyelocytes % 7 Abs Neuts (Manual) 18.1 H Lymphocytes # (Manual) 1.3 Atyp Lymphs # (Manual) 0.2 Monocytes # (Manual) 0.9 Metamyelocytes # 1.5 Platelet Estimate SLIGHTLY INCREASED Plt Morphology Comment NORMAL RBC Morphology NOTED Polychromasia 1+ (0-2) Hypochromasia 1+ (5-14) PT INR Anion Gap Estim Creat Clear Calc Estimated GFR POC Glucose 192 H Random Glucose Lactic Acid Calcium 06/06/23 11:07 MCV MCH MCHC RDW Plt Count MPV Immature Gran % (Auto) Neut % (Auto) Lymph % (Auto) [place] % (Auto) Eos % (Auto) Baso % (Auto) Lymph # (Auto) [place] # (Auto) Eos # (Auto) Baso # (Auto) Abs Immat Gran (auto) Absolute Neuts (auto) Absolute Nucleated RBC Nucleated RBC % (auto) Neutrophils % (Manual) Band Neutrophils % Lymphocytes % (Manual) Atypical Lymphs % (Man) Monocytes % (Manual) Metamyelocytes % Abs Neuts (Manual) Lymphocytes # (Manual) Atyp Lymphs # (Manual) Monocytes # (Manual) Metamyelocytes # Platelet Estimate Plt Morphology Comment RBC Morphology Polychromasia Hypochromasia PT INR Anion Gap Estim Creat Clear Calc Estimated GFR POC Glucose 195 H Random Glucose Lactic Acid Calcium Assessment and Plan (1) Ischemic colitis: Status: Acute (2) Status post knee replacement: Status: Acute (3) Pulmonary embolism: Status: Acute (4) Urinary retention: Status: Acute Plan This is a 68 year old female with history of htn, asthma/copd overlap, type 2 diabetes, hld, gerd, who presented on 05/25 for elective Left TKA. She subsequently developed hypotention requiring ICU level of care [phone]/[phone] and was diagnosed to have b/l segmental PE; hospital course further complicated by colitis and now with rectale bleeding Ischemic Colitis seen by GI, underwent sigmoidoscopy 06/03 - c/w with healing ischemic colitis continue IV Levaquin/Flagyl continue trental avoid low blood pressure seen by general surgery - no plan for surgery at this time Rectal bleeding/acute blood loss anemia likely due to above ischemic colitis in the setting of AC with lovenox AC on hold for now Bleeding scan 06/04 - no evidence of gastrointestinal hemorrhage seen by hematology, as unable to receive blood products (Pent[employer]ostal), will treat with 4 doses of IV iron Bleeding appears to be slowing down somewhat, H/H stable at this time Follow q.6h H/H Pulmonary embolus CTA 05/28 with bilateral nonocclusive segmental pulmonary emboli (Filling defect identified within the right upper, right middle, right lower, left upper, and left lower pulmonary arterial branches) no respiratory symptoms, now on room air echo with no evidence of right heart strain therapeutic lovenox on hold for rectal bleeding Vascular surgery consultation for possible IVC filter placement Left lower extremity ultrasound negative for DVT OA s/p L TKA 05/25 plan per ortho surgery hypokalemia likely due to GI loss, decreased po intake replace IV follow BMP Urinary retention (likely secondary to anesthesia/opiates) hylton placed again 06/01 seen by urology Type 2 diabetes lantus on hold as NPO Continue SSI, follow POCs HTN BP meds placed on hold to prevent hypotension in the setting of active GI bleed (lisinopril, clonidine, metoprolol) lasix, HCTZ on hold verapamil d/c in ICU due to hypotension Hypothyroidism continue synthroid mood continue effexor Morbid obesity BMI 41 weight loss encouraged Requires ongoing hospitalization secondary to the need for IV antibiotics to treat colitis Quality Stroke Does the patient have a stroke diagnosis?: No VTE Prior VTE?: No VTE Risk Level:: Surgical - very high VTE Device Contraindication: N/A - Device Ordered VTE Drug Contraindication: N/A - Med Ordered
--- NOTE | 2023-06-06 11:39 | P.PNGS_ITS ---
Subjective Subjective Date of Service: 06/06/23 Interval history: feels ok - had more bloody material last night and this am but much less than yesterday in the day the h and h is stable though Physical Exam 2 Vital Signs: Vital Signs: Last Vital Signs Temp 97.0 F 06/06/23 10:58 Pulse 96 06/06/23 11:11 Resp 18 06/06/23 10:58 BP 150/68 H 06/06/23 11:11 Pulse Ox 98 06/06/23 10:58 O2 Del Method Room Air 06/06/23 10:58 O2 Flow Rate 96 06/06/23 06:26 FiO2 93 05/29/23 19:00 Oxygen Flow Rate 3 05/29/23 04:00 BMI result Body Mass Index 37.7 Const: General: cooperative, healthy appearing, comfortable and no acute distress GI: Other: abdomen is tender but no significant guarding or rebound or peritoneal signs Objective Data Active Medications Albuterol Sulfate (Albuterol Sulfate 90 Mcg 8 Gm Inhaler) 2 puff INHALE RQ4H PRN PRN Reason: Wheezing Albuterol/Ipratropium (Albuterol/Iprat 2.5/0.5mg 3 Ml Ampul.Neb) 3 ml INHALE RQ4H WHILE AWAKE PRN PRN Reason: Wheezing Clonidine HCl (Clonidine Hcl 0.2 Mg Tablet) 0.2 mg PO BEDTIME [facility]; Protocol Last Admin: 06/04/23 21:17 Dose: 0.2 mg Documented By: LO Dextrose (Dextrose 50 % 25 Gm/50 Ml Syringe) 25 gm IVPUSH Q15M PRN; Protocol PRN Reason: per Hypoglycemia Standing Ord. Gabapentin (Gabapentin 100 Mg Capsule) 100 mg PO TID [facility] Last Admin: 06/06/23 10:08 Dose: 100 mg Documented By: MAYCOL Glucose (Glucose Gel 15 Gm Gel..Gram.) 15 gm PO Q15M PRN; Protocol PRN Reason: per Hypoglycemia Standing Ord. Metronidazole (Flagyl) 500 mg in 100 mls @ 100 mls/hr IV Q8H [facility] Last Infusion: 06/06/23 04:40 Dose: Infused Documented By: GEOFF Levofloxacin (Levaquin) 750 mg in 150 mls @ 100 mls/hr IV Q24H [facility] Last Infusion: 06/05/23 16:04 Dose: Infused Documented By: MICH Lactated Ringer's (Lr) 1,000 mls @ 125 mls/hr IVCONT .Q8H [facility] Last Admin: 06/06/23 10:10 Dose: 125 mls/hr Documented By: MAYCOL Acetaminophen (Ofirmev) 1,000 mg in 100 mls @ 400 mls/hr IV Q6H [facility] Last Infusion: 06/06/23 10:37 Dose: Infused Documented By: MAYCOL Iron Sucrose 200 mg/ Sodium (Chloride) 110 mls @ 440 mls/hr IV DAILY [facility] Stop: 06/10/23 11:14 Insulin Glargine (Insulin Glargine,Hum.Rec.Anlog 100 Unit/Ml 10 Ml Vial) 10 unit SUBCUT BEDTIME [facility] Last Admin: 06/04/23 21:17 Dose: 10 unit Documented By: LO Insulin Human Lispro (Insulin Lispro 100 Unit/Ml 3 Ml Vial) 0 unit SUBCUT QIDACHS [facility]; Protocol Last Admin: 06/06/23 09:22 Dose: Not Given Documented By: MAYCOL Non-Admin Reason: NPO Levothyroxine Sodium (Levothyroxine Sodium 75 Mcg Tablet) 75 mcg PO DAILY@0600 [facility] Last Admin: 06/06/23 06:21 Dose: 75 mcg Documented By: GEOFF Lidocaine (Lidocaine 4 % Patch Adh..Patch) 2 patch TRANSDERMA DAILY [facility]; Protocol Last Admin: 06/06/23 10:08 Dose: 2 patch Documented By: MAYCOL Loperamide HCl (Loperamide Hcl 2 Mg Capsule) 4 mg PO Q6H PRN PRN Reason: Diarrhea Last Admin: 06/05/23 11:02 Dose: 4 mg Documented By: MICH Morphine Sulfate (Morphine Sulfate 2 Mg/Ml Cartridge) 2 mg IVPUSH Q4H PRN; Protocol PRN Reason: Pain, Moderate(Pain Scale 4-6) Last Admin: 06/05/23 14:37 Dose: 2 mg Documented By: MICH Ondansetron HCl (Ondansetron Hcl 4 Mg/2 Ml Vial) 4 mg IVPUSH Q6H PRN PRN Reason: Nausea and Vomiting Last Admin: 06/03/23 16:39 Dose: 4 mg Documented By: SRI Pantoprazole Sodium (Pantoprazole Sodium 40 Mg/10 Ml Vial) 40 mg IVPUSH BID@0630,1630 [facility] Last Admin: 06/06/23 06:21 Dose: 40 mg Documented By: GEOFF Pentoxifylline (Pentoxifylline Er 400 Mg Tablet.Er) 400 mg PO TID [facility] Last Admin: 06/06/23 10:08 Dose: 400 mg Documented By: MAYCOL Potassium Chloride (Potassium Chloride Packet 20 Meq Packet) 40 meq PO BID [facility] Stop: 06/06/23 21:01 Last Admin: 06/06/23 10:08 Dose: 40 meq Documented By: MAYCOL Venlafaxine HCl (Venlafaxine Hcl Er 150 Mg Cap.Er.24h) 150 mg PO DAILY [facility] Last Admin: 06/06/23 10:08 Dose: 150 mg Documented By: MAYCOL Labs 06/06/23 19:13 06/06/23 03:03 Labs: Laboratory Results - last 24 hr 06/05/23 06/05/23 06/05/23 14:52 15:08 16:12 MCV MCH MCHC RDW Plt Count MPV Immature Gran % (Auto) Neut % (Auto) Lymph % (Auto) [place] % (Auto) Eos % (Auto) Baso % (Auto) Lymph # (Auto) [place] # (Auto) Eos # (Auto) Baso # (Auto) Abs Immat Gran (auto) Absolute Neuts (auto) Absolute Nucleated RBC Nucleated RBC % (auto) Neutrophils % (Manual) Band Neutrophils % Lymphocytes % (Manual) Atypical Lymphs % (Man) Monocytes % (Manual) Metamyelocytes % Abs Neuts (Manual) Lymphocytes # (Manual) Atyp Lymphs # (Manual) Monocytes # (Manual) Metamyelocytes # Platelet Estimate Plt Morphology Comment RBC Morphology Polychromasia Hypochromasia PT 12.7 INR 1.0 Anion Gap Estim Creat Clear Calc Estimated GFR POC Glucose 176 H Random Glucose Lactic Acid 1.1 Calcium 06/05/23 06/06/23 06/06/23 20:31 03:03 03:05 MCV 80.6 MCH 27.0 MCHC 33.5 RDW 14.6 Plt Count 487 H MPV 9.6 Immature Gran % (Auto) Neut % (Auto) Lymph % (Auto) [place] % (Auto) Eos % (Auto) Baso % (Auto) Lymph # (Auto) [place] # (Auto) Eos # (Auto) Baso # (Auto) Abs Immat Gran (auto) Absolute Neuts (auto) Absolute Nucleated RBC 0.060 H Nucleated RBC % (auto) 0.2 Neutrophils % (Manual) Band Neutrophils % Lymphocytes % (Manual) Atypical Lymphs % (Man) Monocytes % (Manual) Metamyelocytes % Abs Neuts (Manual) Lymphocytes # (Manual) Atyp Lymphs # (Manual) Monocytes # (Manual) Metamyelocytes # Platelet Estimate Plt Morphology Comment RBC Morphology Polychromasia Hypochromasia PT INR Anion Gap 18 Estim Creat Clear Calc 92.7 Estimated GFR > 60 POC Glucose 217 H Random Glucose 224 H Lactic Acid Calcium 7.6 L 06/06/23 06/06/23 06/06/23 08:05 08:50 11:07 MCV 81.4 MCH 27.2 MCHC 33.5 RDW 14.8 Plt Count 513 H MPV 9.6 Immature Gran % (Auto) Cancelled Neut % (Auto) Cancelled Lymph % (Auto) Cancelled [place] % (Auto) Cancelled Eos % (Auto) Cancelled Baso % (Auto) Cancelled Lymph # (Auto) Cancelled [place] # (Auto) Cancelled Eos # (Auto) Cancelled Baso # (Auto) Cancelled Abs Immat Gran (auto) Cancelled Absolute Neuts (auto) Cancelled Absolute Nucleated RBC 0.030 H Nucleated RBC % (auto) 0.1 Neutrophils % (Manual) 67 Band Neutrophils % 15 H Lymphocytes % (Manual) 6 L Atypical Lymphs % (Man) 1 Monocytes % (Manual) 4 Metamyelocytes % 7 Abs Neuts (Manual) 18.1 H Lymphocytes # (Manual) 1.3 Atyp Lymphs # (Manual) 0.2 Monocytes # (Manual) 0.9 Metamyelocytes # 1.5 Platelet Estimate SLIGHTLY INCREASED Plt Morphology Comment NORMAL RBC Morphology NOTED Polychromasia 1+ (0-2) Hypochromasia 1+ (5-14) PT INR Anion Gap Estim Creat Clear Calc Estimated GFR POC Glucose 192 H 195 H Random Glucose Lactic Acid Calcium Procedures Date of Service Date of Service: 06/06/23 Progress Note: A&P Assessment and plan (1) Ischemic colitis: Status: Acute Assessment and Plan: pt is a 68 year old lady with ischemic colitis stable today - will continue to follow - discussed care plan with medical team Time Spent With Patient Time: Total time managing care of this patient today ____ minutes. Quality Stroke Does the patient have a stroke diagnosis?: No VTE Prior VTE?: No VTE Risk Level:: Surgical - very high VTE Device Contraindication: N/A - Device Ordered VTE Drug Contraindication: N/A - Med Ordered
[2023-06-06] MEDS: Iron Sucrose Complex 200 MG in 0.9 % Sodium Chloride 100 ML 440 MG IV (12:09)
[2023-06-06] MEDS: Morphine Sulfate 2 MG/ML CARTRIDGE IVPUSH ×2 (13:07→21:14)
[2023-06-06] MEDS: ondansetron HCL 4 MG/2 ML VIAL IVPUSH ×2 (13:15→21:15)
[2023-06-06] MEDS: levoFLOXacin/D5W 750 MG/150 ML PIGGYBACK 100 MG IV (14:34)
[2023-06-06 14:54] LABS: Hematocrit 24.6 % (37.0-47.0); Hemoglobin 8.4 g/dl (12.0-16.0)
[2023-06-06 16:29] LABS: Glucose, Whole Blood 257 mg/dL (60-115)
[2023-06-06] MEDS: Insulin Lispro 100 UNIT/ML 3 ML VIAL SUBCUT ×2 (17:13→21:29)
[2023-06-06] MEDS: Metoprolol Tartrate 25 MG TABLET PO ×2 (17:13→23:36)
[2023-06-06 19:19] LABS: Hematocrit 23.4 % (37.0-47.0)
[2023-06-06 21:03] LABS: Glucose, Whole Blood 183 mg/dL (60-115)
[2023-06-06] MEDS: Simethicone 80 MG TAB.CHEW 160 MG PO (21:13)
[2023-06-07] VITALS (8 sets, daily range): BP systolic 145–170; BP diastolic 65–74; PULSE 88–110; RESP 16–20; TEMP 36.1–36.8; O2SAT 93–97
[2023-06-07] MEDS: Melatonin 3 MG TABLET PO (00:36)
[2023-06-07] MEDS: oxyCODONE HCl Immed Release 5 MG TABLET PO ×4 (00:36→21:35)
[2023-06-07 01:39] LABS: Hematocrit 22.9 % (37.0-47.0); Hemoglobin 7.7 g/dl (12.0-16.0)
[2023-06-07] MEDS: Lactated Ringers 1,000 ML 125 ML IVCONT ×2 (03:09→10:08)
[2023-06-07] MEDS: metroNIDAZOLE/NS 500 MG/100 ML PIGGYBACK 100 MG IV ×3 (03:15→21:32)
[2023-06-07] MEDS: Acetaminophen 1,000 MG/100 ML PIGGYBACK 400 MG IV ×4 (04:03→21:32)
[2023-06-07] MEDS: Pantoprazole Sodium 40 MG/10 ML VIAL IVPUSH ×2 (06:15→16:24)
[2023-06-07 06:20] LABS: Appearance Urine Turbid; Color Urine Yellow; Glucose Urine UA 100 mg/dL (Negative); Leukocyte Esterase Urine Small (1+) (Negative); Nitrite Urine Negative (Negative); UMIC TRIGGER UA YES; Urine Blood Trace (Negative); Urine Ketones 40 mg/dL (Negative); Urine Protein Trace mg/dL (Neg-Trace)
--- NOTE | 2023-06-07 06:28 | PM.EVENT ---
Event Note Date of Service: 06/07/23 Event Note: 8:53 PM - H/H 8.0/23.4. Less bleeding tonight with small amount of and darker color. Vital signs stable. Simethicone ordered for bloating. 11:16 PM - increased abdominal pain. Morphine and Tylenol IV are not working. Oxycodone ordered. 2:54 AM - vital signs: Temp 97.3 degrees, 170/73, 20, 98% on room air. H/H 7.7/22.9. Patient is still bleedin:00 AM - Spoke with son was very concerned about his mom. He was asking for a plan in regards to his mother's bleeding. We decide to speak with surgeon on-call to explore surgical considerations. 3:23 AM - Spoke with Dr. Lilly who recommededed to contact IR at another facility to obtain an angiogram. 4:25 AM - Spoke with Dr. Sanon, from IR at [facility] who said an angiogram is low-yield in this patient's case as suggested abdominal/pelvic CTA with delaying. 4:58 AM - Spoke with Dr. Lilly let her know about IR recommendations. I also discussed with her that patient's son would like to be evaluated at [facility] as they do have a Bloodless Medicine/Surgery program. 5:00 PM - Contacted [facility] Transfer service #[phone] (option #1). Patient's name was placed on their list to assess for health insurance authorization. Time Spent With Patient Time: Total time managing care of this patient today ____ minutes.
[2023-06-07 06:41] LABS: Bacteria Urine None Seen (None Seen); Hyaline Casts Urine 0-2 /LPF (0-2); RBC Urine 0-2 /HPF (0-2); Squamous Epithelial Cell Urine 0-2 /HPF (0-2); WBC Urine 0-5 /HPF (0-5)
[2023-06-07 06:42] LABS: Hemoglobin 7.4 g/dl (12.0-16.0); Hemoglobin 7.6 g/dl (12.0-16.0); Mean Corpuscular HGB Conc 32.2 g/dl (31.0-35.0); Mean Corpuscular Hemoglobin 26.9 pg (27.0-33.0); Mean Corpuscular Volume 83.6 fL (80.0-98.0); Mean Platelet Volume 9.4 fL (9.4-12.3); NRBC Pct Auto 0.7 /100WBC (0.0-0.2); Platelet Count 577 X10*3/uL (160-400); Red Blood Count 2.75 X10*6/uL (4.20-5.50); Red Cell Distribution Width 15.4 % (11.0-16.0); White Blood Count 16.6 X10*3/uL (4.8-10.8)
[2023-06-07 06:54] LABS: Anion Gap 14 (12-20); Blood Urea Nitrogen 4 mg/dL (9-16); Calcium 7.8 mg/dL (8.4-10.2); Carbon Dioxide 22 mmol/L (22-29); Chloride 107 mmol/L (96-108); Estimated Glomerular Filt Rate > 60; Glucose Random 226 mg/dL (60-115); Potassium 3.1 mmol/L (3.3-5.1); Sodium 140 mmol/L (135-145)
[2023-06-07] MEDS: Potassium Chloride Packet 20 MEQ PACKET 40 MEQ PO (07:41)
[2023-06-07] MEDS: iohexoL 350 MG/ML 100 ML INFUS..BTL 85 ML IV (08:24)
[2023-06-07 08:47] LABS: Glucose, Whole Blood 196 mg/dL (60-115)
[2023-06-07 08:50] LABS: INTERNATIONAL NORM RATIO 1.2 (0.9-1.1); Prothrombin Time 14.6 SEC (11.1-13.3)
[2023-06-07] MEDS: Iron Sucrose Complex 200 MG in 0.9 % Sodium Chloride 100 ML 440 MG IV (09:51)
[2023-06-07] MEDS: Venlafaxine HCl ER 150 MG CAP.ER.24H PO (09:51)
[2023-06-07] MEDS: Gabapentin 100 MG CAPSULE PO ×3 (09:51→21:33)
[2023-06-07] MEDS: Lidocaine 4 % Patch ADH..PATCH 2 PATCH TRANSDERMA (09:54)
--- NOTE | 2023-06-07 10:41 | P.PNIM_ITS ---
Subjective Subjective Date of Service: 06/07/23 Interval History: seen and examined this morning follow up for GI bleeding bleeding had slowed down yesterday, but increased again overnight H/H continues to trend down having bloating and abdominal pain Review of Systems Review of Systems: Yes all other systems are reviewed and are negative Constitutional Constitutional: Denies chills and Denies fever(s) ENT Ears, Nose, Mouth, and Throat: Denies dizziness Cardiovascular Cardiovascular: Denies chest pain and Denies dyspnea Respiratory Respiratory: Denies dyspnea Gastrointestinal Gastrointestinal: Reports abdominal pain Neurologic Neurologic: Denies dizziness Physical Exam 2 Vital Signs: Vital Signs: Last Vital Signs Temp 97.0 F 06/07/23 07:44 Pulse 96 06/07/23 07:44 Resp 18 06/07/23 07:44 BP 170/71 H 06/07/23 07:44 Pulse Ox 95 06/07/23 07:44 O2 Del Method Room Air 06/07/23 07:44 O2 Flow Rate 96 06/06/23 06:26 FiO2 93 05/29/23 19:00 Oxygen Flow Rate 3 05/29/23 04:00 BMI result Body Mass Index 37.7 Const: General: cooperative, comfortable, alert and awake Nutritional Appearance: obese Orientation/consciousness: patient oriented x3 Resp: Effort & Inspection: normal respiratory effort, able to speak in complete sentences, no respiratory distress and no use of accessory muscles Cardio: Rate: regular rate GI: Other: soft, non-distended; TTP LLQ - less tender, no rebound +BS Inspection: No distended Palpation (GI): Soft to palpation : Other: hylton in place draining clear yellow urine Neuro: General: patient oriented x3 Extrem: Other: left knee with dry intact bandage Objective Data Active Medications Albuterol Sulfate (Albuterol Sulfate 90 Mcg 8 Gm Inhaler) 2 puff INHALE RQ4H PRN PRN Reason: Wheezing Albuterol/Ipratropium (Albuterol/Iprat 2.5/0.5mg 3 Ml Ampul.Neb) 3 ml INHALE RQ4H WHILE AWAKE PRN PRN Reason: Wheezing Clonidine HCl (Clonidine Hcl 0.2 Mg Tablet) 0.2 mg PO BEDTIME [facility]; Protocol Last Admin: 06/04/23 21:17 Dose: 0.2 mg Documented By: LO Dextrose (Dextrose 50 % 25 Gm/50 Ml Syringe) 25 gm IVPUSH Q15M PRN; Protocol PRN Reason: per Hypoglycemia Standing Ord. Epoetin Elder (Epoetin Elder 10,000 Unit/Ml Vial) 10,000 unit SUBCUT TUTHSA [facility] Gabapentin (Gabapentin 100 Mg Capsule) 100 mg PO TID [facility] Last Admin: 06/07/23 09:51 Dose: 100 mg Documented By: MAYCOL Glucose (Glucose Gel 15 Gm Gel..Gram.) 15 gm PO Q15M PRN; Protocol PRN Reason: per Hypoglycemia Standing Ord. Metronidazole (Flagyl) 500 mg in 100 mls @ 100 mls/hr IV Q8H [facility] Last Infusion: 06/07/23 04:44 Dose: Infused Documented By: GEOFF Levofloxacin (Levaquin) 750 mg in 150 mls @ 100 mls/hr IV Q24H [facility] Last Infusion: 06/06/23 16:09 Dose: Infused Documented By: MAYCOL Lactated Ringer's (Lr) 1,000 mls @ 125 mls/hr IVCONT .Q8H [facility] Last Admin: 06/07/23 10:08 Dose: 125 mls/hr Documented By: MAYCOL Acetaminophen (Ofirmev) 1,000 mg in 100 mls @ 400 mls/hr IV Q6H [facility] Last Infusion: 06/07/23 10:28 Dose: Infused Documented By: MAYCOL Iron Sucrose 200 mg/ Sodium (Chloride) 110 mls @ 440 mls/hr IV DAILY [facility] Stop: 06/10/23 11:14 Last Infusion: 06/07/23 10:28 Dose: Infused Documented By: MAYCOL Insulin Glargine (Insulin Glargine,Hum.Rec.Anlog 100 Unit/Ml 10 Ml Vial) 10 unit SUBCUT BEDTIME [facility] Last Admin: 06/04/23 21:17 Dose: 10 unit Documented By: LO Insulin Human Lispro (Insulin Lispro 100 Unit/Ml 3 Ml Vial) 0 unit SUBCUT QIDACHS [facility]; Protocol Last Admin: 06/07/23 09:00 Dose: Not Given Documented By: MAYCOL Non-Admin Reason: NPO Comments: Pt npo, and off unit at time. Levothyroxine Sodium (Levothyroxine Sodium 75 Mcg Tablet) 75 mcg PO DAILY@0600 [facility] Last Admin: 06/07/23 05:58 Dose: Not Given Documented By: GEOFF Non-Admin Reason: npo Lidocaine (Lidocaine 4 % Patch Adh..Patch) 2 patch TRANSDERMA DAILY [facility]; Protocol Last Admin: 06/07/23 09:54 Dose: 2 patch Documented By: MAYCOL Loperamide HCl (Loperamide Hcl 2 Mg Capsule) 4 mg PO Q6H PRN PRN Reason: Diarrhea Last Admin: 06/05/23 11:02 Dose: 4 mg Documented By: MICH Melatonin (Melatonin 3 Mg Tablet) 3 mg PO BEDTIME PRN PRN Reason: Insomnia Last Admin: 06/07/23 00:36 Dose: 3 mg Documented By: GEOFF Metoprolol Tartrate (Metoprolol Tartrate 25 Mg Tablet) 25 mg PO Q6H [facility]; Protocol Last Admin: 06/07/23 05:58 Dose: Not Given Documented By: GEOFF Non-Admin Reason: Hold pber Dr. Hanna order. Morphine Sulfate (Morphine Sulfate 2 Mg/Ml Cartridge) 2 mg IVPUSH Q4H PRN; Protocol PRN Reason: Pain, Moderate(Pain Scale 4-6) Last Admin: 06/06/23 21:14 Dose: 2 mg Documented By: GEOFF Comments: pt reports having abdominal pain Ondansetron HCl (Ondansetron Hcl 4 Mg/2 Ml Vial) 4 mg IVPUSH Q6H PRN PRN Reason: Nausea and Vomiting Last Admin: 06/06/23 21:15 Dose: 4 mg Documented By: GEOFF Comments: pt reports feeling intermittent nausea Oxycodone HCl (Oxycodone Hcl Immed Release 5 Mg Tablet) 5 mg PO Q4H PRN PRN Reason: Pain, Severe (Pain Scale 7-10) Last Admin: 06/07/23 09:52 Dose: 5 mg Documented By: MAYCOL Pantoprazole Sodium (Pantoprazole Sodium 40 Mg/10 Ml Vial) 40 mg IVPUSH BID@0630,1630 [facility] Last Admin: 06/07/23 06:15 Dose: 40 mg Documented By: GEOFF Pentoxifylline (Pentoxifylline Er 400 Mg Tablet.Er) 400 mg PO TID [facility] Last Admin: 06/07/23 10:11 Dose: Not Given Documented By: MAYCOL Non-Admin Reason: held Venlafaxine HCl (Venlafaxine Hcl Er 150 Mg Cap.Er.24h) 150 mg PO DAILY [facility] Last Admin: 06/07/23 09:51 Dose: 150 mg Documented By: MAYCOL Labs 06/07/23 06:03 06/07/23 06:03 Labs: Laboratory Results - last 24 hr 06/06/23 06/06/23 06/06/23 11:07 15:42 20:38 MCV MCH MCHC RDW Plt Count MPV Absolute Nucleated RBC Nucleated RBC % (auto) PT INR Anion Gap Estim Creat Clear Calc Estimated GFR POC Glucose 195 H 257 H 183 H Random Glucose Calcium Urine Color Urine Appearance Urine pH Ur Specific [place] Urine Protein Urine Glucose (UA) Urine Ketones Urine Blood Urine Nitrite Ur Leukocyte Esterase Urine RBC Urine WBC Ur Squamous Epith Cells Urine Bacteria Hyaline Casts Urine Yeast 06/07/23 06/07/23 06/07/23 04:15 06:03 08:37 MCV 83.6 MCH 26.9 L MCHC 32.2 RDW 15.4 Plt Count 577 H MPV 9.4 Absolute Nucleated RBC 0.110 H Nucleated RBC % (auto) 0.7 H PT 14.6 H INR 1.2 H Anion Gap 14 Estim Creat Clear Calc 87.0 Estimated GFR > 60 POC Glucose Random Glucose 226 H Calcium 7.8 L Urine Color Yellow Urine Appearance Turbid Urine pH 6.0 Ur Specific [place] 1.010 Urine Protein Trace Urine Glucose (UA) 100 H Urine Ketones 40 Urine Blood Trace H Urine Nitrite Negative Ur Leukocyte Esterase Small (1+) H Urine RBC 0-2 Urine WBC 0-5 Ur Squamous Epith Cells 0-2 Urine Bacteria None Seen Hyaline Casts 0-2 Urine Yeast Present 06/07/23 08:43 MCV MCH MCHC RDW Plt Count MPV Absolute Nucleated RBC Nucleated RBC % (auto) PT INR Anion Gap Estim Creat Clear Calc Estimated GFR POC Glucose 196 H Random Glucose Calcium Urine Color Urine Appearance Urine pH Ur Specific [place] Urine Protein Urine Glucose (UA) Urine Ketones Urine Blood Urine Nitrite Ur Leukocyte Esterase Urine RBC Urine WBC Ur Squamous Epith Cells Urine Bacteria Hyaline Casts Urine Yeast Assessment and Plan (1) Acute blood loss anemia: Status: Acute (2) Ischemic colitis: Status: Acute (3) Status post knee replacement: Status: Acute (4) Pulmonary embolism: Status: Acute (5) Urinary retention: Status: Acute Plan This is a 68 year old female with history of htn, asthma/copd overlap, type 2 diabetes, hld, gerd, who presented on 05/25 for elective Left TKA. She subsequently developed hypotention requiring ICU level of care [id number] and was diagnosed to have b/l segmental PE; hospital course further complicated by probable ischemic colitis and now with rectal bleeding/ acute blood loss anemia Rectal bleeding/acute blood loss anemia likely due to ischemic colitis in the setting of previous AC with lovenox. H/h continues to trend down. Vitals so far holding stable. AC on hold for now Bleeding scan 06/04 - no evidence of gastrointestinal hemorrhage seen by hematology, as unable to receive blood products (Orthodoxy), will treat with 4 doses of IV iron, start procrit three times/week CTA abdomen/pelvis 06/06 with no extravasation to suggest site of GI bleeding discussed with [facility] about transfer but with no active bleeding on CTA, no need for IR, they do not feel higher level of care necessary at this time discussed with helmet coverer, no need for ICU at this time as blood pressure stable surgery following, discussed with anesthesia - at high risk for surgery given acute bilateral PE. as wbc is trending down and vitals ok, plan to repeat Lactic acid and continue conservative management for now if deteriorates, left colectomy may become necessary Follow q.6h H/H Ischemic Colitis seen by GI, underwent sigmoidoscopy 06/03 - c/w with healing ischemic colitis continue IV Levaquin/Flagyl trental on hold avoid low blood pressure general surgery following Pulmonary embolus CTA 05/28 with bilateral nonocclusive segmental pulmonary emboli (Filling defect identified within the right upper, right middle, right lower, left upper, and left lower pulmonary arterial branches) no respiratory symptoms, continues to remain on room air echo with no evidence of right heart strain therapeutic lovenox on hold for rectal bleeding as above Vascular surgery consultation for possible IVC filter placement pending Left lower extremity ultrasound negative for DVT OA s/p L TKA 05/25 plan per ortho surgery hypokalemia likely due to GI loss, decreased po intake replace and follow follow BMP Urinary retention (likely secondary to anesthesia/opiates) hylton placed again 3/19 seen by urology Type 2 diabetes lantus on hold as NPO Continue SSI, follow POCs HTN BP meds placed on hold to prevent hypotension in the setting of active GI bleed (lisinopril, clonidine, metoprolol) lasix, HCTZ on hold verapamil d/c in ICU due to hypotension Hypothyroidism continue synthroid mood continue effexor Morbid obesity BMI 41 weight loss encouraged Requires ongoing hospitalization secondary to the need for IV antibiotics to treat colitis Quality Stroke Does the patient have a stroke diagnosis?: No VTE Prior VTE?: No VTE Risk Level:: Surgical - very high VTE Device Contraindication: N/A - Device Ordered VTE Drug Contraindication: N/A - Med Ordered
[2023-06-07 10:44] LABS: Hematocrit 22.1 % (37.0-47.0); Hemoglobin 7.4 g/dl (12.0-16.0)
[2023-06-07 11:42] LABS: Glucose, Whole Blood 189 mg/dL (60-115)
[2023-06-07] MEDS: Folic Acid 1 MG TABLET PO (11:55)
[2023-06-07] MEDS: Epoetin Alfa-epbx 10,000 UNIT/ML VIAL 10000 UNIT SUBCUT (11:55)
--- NOTE | 2023-06-07 13:42 | PM.PNGS ---
Subjective Subjective Date of Service: 06/07/23 Interval history: Patient at this point complains of a little abdominal pain but feeling fine denies any nausea vomiting headache lightheadedness. Around 1 2 in the morning she had another large passage of bloody material and H&H did reveal a drop from hemoglobin of 9/7.7. We talked to [facility] bowel potential transfer interventional radiology and angiogram that it was decided to do a CTA hair 1st and this was down and did not reveal any significant active bleeding. Patient continued to remain stable and [facility] did not think that she was appropriate for transfer as they would not necessarily add anything than what we were ready doing. Physical Exam Vital Signs: Vital Signs: Last Vital Signs Temp 97.5 F 06/07/23 11:28 Pulse 95 06/07/23 11:28 Resp 18 06/07/23 11:28 BP 145/65 H 06/07/23 11:28 Pulse Ox 96 06/07/23 11:28 O2 Del Method Room Air 06/07/23 11:28 O2 Flow Rate 96 06/06/23 06:26 FiO2 93 05/29/23 19:00 Oxygen Flow Rate 3 05/29/23 04:00 BMI result Body Mass Index 37.7 Resp: Effort & Inspection: normal respiratory effort Cardio: Rate: regular rate Rhythm: regular rhythm GI: Other: Abdomen is less tender not distended no guarding no rebound no peritoneal signs active bowel sounds Objective Data Active Medications Albuterol Sulfate (Albuterol Sulfate 90 Mcg 8 Gm Inhaler) 2 puff INHALE RQ4H PRN PRN Reason: Wheezing Albuterol/Ipratropium (Albuterol/Iprat 2.5/0.5mg 3 Ml Ampul.Neb) 3 ml INHALE RQ4H WHILE AWAKE PRN PRN Reason: Wheezing Clonidine HCl (Clonidine Hcl 0.2 Mg Tablet) 0.2 mg PO BEDTIME [facility]; Protocol Last Admin: 06/04/23 21:17 Dose: 0.2 mg Documented By: LO Cyanocobalamin (Cyanocobalamin (Vitamin B-12) 100 Mcg Tablet) 100 mcg PO DAILY [facility] Dextrose (Dextrose 50 % 25 Gm/50 Ml Syringe) 25 gm IVPUSH Q15M PRN; Protocol PRN Reason: per Hypoglycemia Standing Ord. Epoetin Elder-epbx (Epoetin Elder-Epbx 10,000 Unit/Ml Vial) 10,000 unit SUBCUT T[place] [facility] Folic Acid (Folic Acid 1 Mg Tablet) 1 mg PO DAILY [facility] Last Admin: 06/07/23 11:55 Dose: 1 mg Documented By: MAYCOL Gabapentin (Gabapentin 100 Mg Capsule) 100 mg PO TID [facility] Last Admin: 06/07/23 09:51 Dose: 100 mg Documented By: MAYCOL Glucose (Glucose Gel 15 Gm Gel..Gram.) 15 gm PO Q15M PRN; Protocol PRN Reason: per Hypoglycemia Standing Ord. Metronidazole (Flagyl) 500 mg in 100 mls @ 100 mls/hr IV Q8H [facility] Last Infusion: 06/07/23 13:06 Dose: Infused Documented By: MAYCOL Levofloxacin (Levaquin) 750 mg in 150 mls @ 100 mls/hr IV Q24H [facility] Last Infusion: 06/06/23 16:09 Dose: Infused Documented By: MAYCOL Lactated Ringer's (Lr) 1,000 mls @ 125 mls/hr IVCONT .Q8H [facility] Last Admin: 06/07/23 10:08 Dose: 125 mls/hr Documented By: MAYCOL Acetaminophen (Ofirmev) 1,000 mg in 100 mls @ 400 mls/hr IV Q6H [facility] Last Infusion: 06/07/23 10:28 Dose: Infused Documented By: MAYCOL Iron Sucrose 200 mg/ Sodium (Chloride) 110 mls @ 440 mls/hr IV DAILY [facility] Stop: 06/10/23 11:14 Last Infusion: 06/07/23 10:28 Dose: Infused Documented By: MAYCOL Insulin Glargine (Insulin Glargine,Hum.Rec.Anlog 100 Unit/Ml 10 Ml Vial) 10 unit SUBCUT BEDTIME [facility] Last Admin: 06/04/23 21:17 Dose: 10 unit Documented By: LO Insulin Human Lispro (Insulin Lispro 100 Unit/Ml 3 Ml Vial) 0 unit SUBCUT QIDACHS [facility]; Protocol Last Admin: 06/07/23 12:52 Dose: Not Given Documented By: MAYCOL Non-Admin Reason: NPO Levothyroxine Sodium (Levothyroxine Sodium 75 Mcg Tablet) 75 mcg PO DAILY@0600 [facility] Last Admin: 06/07/23 05:58 Dose: Not Given Documented By: GEOFF Non-Admin Reason: npo Lidocaine (Lidocaine 4 % Patch Adh..Patch) 2 patch TRANSDERMA DAILY [facility]; Protocol Last Admin: 06/07/23 09:54 Dose: 2 patch Documented By: MAYCOL Loperamide HCl (Loperamide Hcl 2 Mg Capsule) 4 mg PO Q6H PRN PRN Reason: Diarrhea Last Admin: 06/05/23 11:02 Dose: 4 mg Documented By: MICH Melatonin (Melatonin 3 Mg Tablet) 3 mg PO BEDTIME PRN PRN Reason: Insomnia Last Admin: 06/07/23 00:36 Dose: 3 mg Documented By: GEOFF Morphine Sulfate (Morphine Sulfate 2 Mg/Ml Cartridge) 2 mg IVPUSH Q4H PRN; Protocol PRN Reason: Pain, Moderate(Pain Scale 4-6) Last Admin: 06/06/23 21:14 Dose: 2 mg Documented By: GEOFF Comments: pt reports having abdominal pain Ondansetron HCl (Ondansetron Hcl 4 Mg/2 Ml Vial) 4 mg IVPUSH Q6H PRN PRN Reason: Nausea and Vomiting Last Admin: 06/06/23 21:15 Dose: 4 mg Documented By: GEOFF Comments: pt reports feeling intermittent nausea Oxycodone HCl (Oxycodone Hcl Immed Release 5 Mg Tablet) 5 mg PO Q4H PRN PRN Reason: Pain, Severe (Pain Scale 7-10) Last Admin: 06/07/23 09:52 Dose: 5 mg Documented By: MAYCOL Pantoprazole Sodium (Pantoprazole Sodium 40 Mg/10 Ml Vial) 40 mg IVPUSH BID@0630,1630 [facility] Last Admin: 06/07/23 06:15 Dose: 40 mg Documented By: GEOFF Pentoxifylline (Pentoxifylline Er 400 Mg Tablet.Er) 400 mg PO TID [facility] Last Admin: 06/07/23 10:11 Dose: Not Given Documented By: MAYCOL Non-Admin Reason: held Venlafaxine HCl (Venlafaxine Hcl Er 150 Mg Cap.Er.24h) 150 mg PO DAILY [facility] Last Admin: 06/07/23 09:51 Dose: 150 mg Documented By: HO.GRAHAMA Labs 06/07/23 22:04 06/07/23 06:03 Labs: Laboratory Results - last 24 hr 06/06/23 06/06/23 06/07/23 15:42 20:38 04:15 MCV MCH MCHC RDW Plt Count MPV Absolute Nucleated RBC Nucleated RBC % (auto) PT INR Anion Gap Estim Creat Clear Calc Estimated GFR POC Glucose 257 H 183 H Random Glucose Lactic Acid Calcium Urine Color Yellow Urine Appearance Turbid Urine pH 6.0 Ur Specific [place] 1.010 Urine Protein Trace Urine Glucose (UA) 100 H Urine Ketones 40 Urine Blood Trace H Urine Nitrite Negative Ur Leukocyte Esterase Small (1+) H Urine RBC 0-2 Urine WBC 0-5 Ur Squamous Epith Cells 0-2 Urine Bacteria None Seen Hyaline Casts 0-2 Urine Yeast Present 06/07/23 06/07/23 06/07/23 06:03 08:37 08:43 MCV 83.6 MCH 26.9 L MCHC 32.2 RDW 15.4 Plt Count 577 H MPV 9.4 Absolute Nucleated RBC 0.110 H Nucleated RBC % (auto) 0.7 H PT 14.6 H INR 1.2 H Anion Gap 14 Estim Creat Clear Calc 87.0 Estimated GFR > 60 POC Glucose 196 H Random Glucose 226 H Lactic Acid Calcium 7.8 L Urine Color Urine Appearance Urine pH Ur Specific [place] Urine Protein Urine Glucose (UA) Urine Ketones Urine Blood Urine Nitrite Ur Leukocyte Esterase Urine RBC Urine WBC Ur Squamous Epith Cells Urine Bacteria Hyaline Casts Urine Yeast 06/07/23 06/07/23 11:25 11:31 MCV MCH MCHC RDW Plt Count MPV Absolute Nucleated RBC Nucleated RBC % (auto) PT INR Anion Gap Estim Creat Clear Calc Estimated GFR POC Glucose 189 H Random Glucose Lactic Acid 1.0 Calcium Urine Color Urine Appearance Urine pH Ur Specific [place] Urine Protein Urine Glucose (UA) Urine Ketones Urine Blood Urine Nitrite Ur Leukocyte Esterase Urine RBC Urine WBC Ur Squamous Epith Cells Urine Bacteria Hyaline Casts Urine Yeast Imaging CT scan - pelvis: Radiologist's impression: Impressions Abdomen/Pelvis CT 06/07/23 08:30 IMPRESSION: 1. No evidence of contrast extravasation seen to suspect any site of GI bleed. 2. There is mild mural thickening and enhancement of sigmoid colon with surrounding fat stranding and free fluid in the pelvis suggestive of inflammatory or infectious colitis. There are scattered diverticuli in the sigmoid colon but no suspicion for diverticulitis. There is small amount of free fluid in the pelvis and abdominal wall edema/cellulitis. Also visualized is presacral soft tissue thickening or inflammatory response. 3. Bilateral small pleural effusions with underlying atelectasis. 4. Bilateral renal cysts and calyceal diverticulum upper pole left kidney. Fleischner guidelines were followed. Procedures Date of Service Date of Service: 06/07/23 Progress Note: A&P Assessment and plan (1) Ischemic colitis: Status: Acute Assessment and Plan: 68-year-old female with some degree of colitis whether it is ischemic or inflammatory or infectious status post sigmoidoscopy with biopsies patient with passing blood and material most likely sloughing off of the mucosa and generally hemodynamically stable although did drop her hematocrit and hemoglobin, hemoglobin from 9 says 7.7 earlier today. CTA down the knot show any active bleeding. Extensive discussion was had with the patient and her family the medical team the anesthesia team and GI team and current treatment is appropriate and adequate however the issue arises that if she continues to drop her hemoglobin she refuses transfusion secondary to her being a Jehovah Witness. This is her wish. We discussed that most likely she is bleeding summer from her left colon and if any surgical intervention had CBD I then she would have a left colectomy with a colostomy however she is also at high risk for this because she recently had a PA 5 CTA and while we had her on Lovenox we had to stop that secondary to the ongoing bleeding. Were caught in the turf situation trying to respect her wishes for not giving her any blood products but not rushing HER2 a high risk operative procedure based on that as well. Currently she is hemodynamically stable and passing further plan is comfortable and understanding all of this. The medical team has had several conversations with her family and had a long phone conversation with them as well. This then valves her daughter and her son and her shovel handle assembler. But we decided as well continue with just conservative care that the side that if she becomes hemodynamically unstable drops t her hemoglobin is under 7 then we will consider surgical intervention and then they will need since the side whether she can use a cell Saver or even albumin etc.. At this point continue with medical care and monitoring her closely Time Spent With Patient Time: Total time managing care of this patient today ____ minutes. Quality Stroke Does the patient have a stroke diagnosis?: No VTE Prior VTE?: No VTE Risk Level:: Surgical - very high VTE Device Contraindication: N/A - Device Ordered VTE Drug Contraindication: N/A - Med Ordered
[2023-06-07] MEDS: levoFLOXacin/D5W 750 MG/150 ML PIGGYBACK 100 MG IV (14:08)
[2023-06-07 16:05] LABS: Glucose, Whole Blood 205 mg/dL (60-115)
[2023-06-07] MEDS: Insulin Lispro 100 UNIT/ML 3 ML VIAL SUBCUT ×2 (16:25→21:33)
--- NOTE | 2023-06-07 18:03 | P.EN_ITS ---
Event Note Date of Service: 06/07/23 Event Note: Patient continues to be stable. Detailed note for follow. Patient with some continuing sloughing but hemodynamically stable. Discussion with anesthesia team as well as GI team as well as medical hospitalist team and myself and we eval determined that weighing the risks and benefits that in this patient with her PE and now being off anticoagulation the risks of surgery are high. Currently she still doing okay but if she continues to bleed with dropping hemat ocrit and unable to be resuscitated with blood and this can be life-threatening as well. As she stable we says threshold to watch her unless she has another acute episode which changes her hemodynamics or which brings her hemoglobin under 7. If that is the case then we will consider urgent left colectomy. This was all discussed with the family who is in agreement with this plan for right now. She continues to refuse any blood any blood products any albumin and potentially even cell Saver. If she does need to go to the operating room further discussion on what we are allowed to use versus not use will be had. To note that the patient still has a normal lactic acid her vitals are good CTA done this morning does not reveal an active bleeding site. The case was also discussed with team at [facility] and they did not think that there is any urgency in her requiring an operative procedure at this point in time nor their facility being a better place for her. Patient's family is aware of this Time Spent With Patient Time: Total time managing care of this patient today ____ minutes.
[2023-06-07 20:09] LABS: Glucose, Whole Blood 189 mg/dL (60-115)
[2023-06-07 22:22] LABS: Hemoglobin 7.7 g/dl (12.0-16.0)
--- NOTE | 2023-06-07 23:00 | PC.NURSE ---
Pt c/o gas pains. MD Hanna notified. Simethicone chewable ordered AC/HS.
[2023-06-07] MEDS: Simethicone 80 MG TAB.CHEW PO (23:02)
[2023-06-08] VITALS (7 sets, daily range): BP systolic 130–188; BP diastolic 66–77; PULSE 74–102; RESP 16–20; TEMP 36.1–36.8; O2SAT 94–100; BMI 37.7
[2023-06-08] MEDS: Acetaminophen 1,000 MG/100 ML PIGGYBACK 400 MG IV ×4 (03:36→20:51)
[2023-06-08] MEDS: metroNIDAZOLE/NS 500 MG/100 ML PIGGYBACK 100 MG IV ×3 (03:37→20:52)
[2023-06-08] MEDS: Levothyroxine Sodium 75 MCG TABLET PO (05:39)
[2023-06-08] MEDS: Pantoprazole Sodium 40 MG/10 ML VIAL IVPUSH ×2 (05:39→17:44)
[2023-06-08 07:18] LABS: Glucose, Whole Blood 187 mg/dL (60-115)
--- NOTE | 2023-06-08 08:04 | PM.PNORT ---
Subjective Subjective Date of Service: 06/08/23 Principal diagnosis: left TKA Interval history: s/p LT TKA 05/26/23 resting in bed comfortably Knee pain is controlled C/o abdominal pain Physical Exam Vital Signs: Vital Signs: Last Vital Signs Temp 97.0 F 06/08/23 07:49 Pulse 101 H 06/08/23 07:49 Resp 20 06/08/23 07:49 BP 176/66 H 06/08/23 07:49 Pulse Ox 94 06/08/23 07:49 O2 Del Method Room Air 06/08/23 07:49 O2 Flow Rate 96 06/06/23 06:26 FiO2 93 05/29/23 19:00 Oxygen Flow Rate 3 05/29/23 04:00 BMI result Body Mass Index 37.7 Const: General: cooperative, healthy appearing and no acute distress Resp: Effort & Inspection: normal respiratory effort and able to speak in complete sentences Cardio: Rate: regular rate Peripheral pulses: Peripheral pulses 2+ throughout GI: Palpation (GI): Soft to palpation Skin: Lesions: no lesions Rashes: no rashes Extrem: Other: Left knee Aquacel is c/d/i. Able to flex and extend the knee. Able to plantar/dorsi flex. Pedal pulse intact. Sensation intact. Pressure sore dressing placed on the left heel, no open wound visible at this time. Procedures Date of Service Date of Service: 06/08/23 Progress Note: A&P Assessment and plan (1) Colitis, infectious: Status: Acute (2) Status post knee replacement: Status: Acute (3) Pulmonary embolism: Status: Acute Assessment and Plan: POD9 s/p left TKA Bilateral PE Ischemic colitis PT for LTKA - wbat encouraged out of bed to chair and walking Pressure wound dressing is applied to the left heel - Monitor for any skin breakdown d/c when medically stable (4) Diabetes: Status: Acute (5) Urinary retention: Status: Acute (6) BMI 35.0-35.9,adult: Status: Acute (7) Status post total left knee replacement: Status: Acute Time Spent With Patient Time: Total time managing care of this patient today ____ minutes. Quality Stroke Does the patient have a stroke diagnosis?: No VTE Prior VTE?: No VTE Risk Level:: Surgical - very high VTE Device Contraindication: N/A - Device Ordered VTE Drug Contraindication: N/A - Med Ordered
--- NOTE | 2023-06-08 08:36 | P.PNGS_ITS ---
Subjective Subjective Date of Service: 06/08/23 Interval history: Feels better this morning Much less pain Very small amounts of blood mixed with brown stools she says Physical Exam 2 Vital Signs: Vital Signs: Last Vital Signs Temp 97.0 F 06/08/23 07:49 Pulse 101 H 06/08/23 07:49 Resp 20 06/08/23 07:49 BP 176/66 H 06/08/23 07:49 Pulse Ox 94 06/08/23 07:49 O2 Del Method Room Air 06/08/23 07:49 O2 Flow Rate 96 06/06/23 06:26 FiO2 93 05/29/23 19:00 Oxygen Flow Rate 3 05/29/23 04:00 BMI result Body Mass Index 37.7 Const: General: comfortable and no acute distress Resp: Effort & Inspection: normal respiratory effort Cardio: Rate: regular rate GI: Palpation (GI): Soft to palpation, not firm, Tenderness to palpation present (GI) (Some tenderness on the left side) and no guarding Objective Data Active Medications Albuterol Sulfate (Albuterol Sulfate 90 Mcg 8 Gm Inhaler) 2 puff INHALE RQ4H PRN PRN Reason: Wheezing Albuterol/Ipratropium (Albuterol/Iprat 2.5/0.5mg 3 Ml Ampul.Neb) 3 ml INHALE RQ4H WHILE AWAKE PRN PRN Reason: Wheezing Clonidine HCl (Clonidine Hcl 0.2 Mg Tablet) 0.2 mg PO BEDTIME [facility]; Protocol Last Admin: 06/04/23 21:17 Dose: 0.2 mg Documented By: LO Cyanocobalamin (Cyanocobalamin (Vitamin B-12) 100 Mcg Tablet) 100 mcg PO DAILY [facility] Dextrose (Dextrose 50 % 25 Gm/50 Ml Syringe) 25 gm IVPUSH Q15M PRN; Protocol PRN Reason: per Hypoglycemia Standing Ord. Epoetin Elder-epbx (Epoetin Elder-Epbx 10,000 Unit/Ml Vial) 10,000 unit SUBCUT [facility] Folic Acid (Folic Acid 1 Mg Tablet) 1 mg PO DAILY [facility] Last Admin: 06/07/23 11:55 Dose: 1 mg Documented By: MAYCOL Gabapentin (Gabapentin 100 Mg Capsule) 100 mg PO TID [facility] Last Admin: 06/07/23 21:33 Dose: 100 mg Documented By: TIFFANIE Glucose (Glucose Gel 15 Gm Gel..Gram.) 15 gm PO Q15M PRN; Protocol PRN Reason: per Hypoglycemia Standing Ord. Metronidazole (Flagyl) 500 mg in 100 mls @ 100 mls/hr IV Q8H [facility] Last Infusion: 06/08/23 04:47 Dose: Infused Documented By: TIFFANIE Levofloxacin (Levaquin) 750 mg in 150 mls @ 100 mls/hr IV Q24H [facility] Last Infusion: 06/07/23 15:58 Dose: Infused Documented By: MACYOL Acetaminophen (Ofirmev) 1,000 mg in 100 mls @ 400 mls/hr IV Q6H [facility] Last Infusion: 06/08/23 03:57 Dose: Infused Documented By: TIFFANIE Iron Sucrose 200 mg/ Sodium (Chloride) 110 mls @ 440 mls/hr IV DAILY [facility] Stop: 06/10/23 11:14 Last Infusion: 06/07/23 10:28 Dose: Infused Documented By: MAYCOL Sodium Chloride (Ns) 1,000 mls @ 100 mls/hr IVCONT .Q10H [facility] Insulin Glargine (Insulin Glargine,Hum.Rec.Anlog 100 Unit/Ml 10 Ml Vial) 10 unit SUBCUT BEDTIME [facility] Last Admin: 06/04/23 21:17 Dose: 10 unit Documented By: LO Insulin Human Lispro (Insulin Lispro 100 Unit/Ml 3 Ml Vial) 0 unit SUBCUT QIDACHS [facility]; Protocol Last Admin: 06/07/23 21:33 Dose: 2 unit Documented By: TIFFANIE Levothyroxine Sodium (Levothyroxine Sodium 75 Mcg Tablet) 75 mcg PO DAILY@0600 [facility] Last Admin: 06/08/23 05:39 Dose: 75 mcg Documented By: TIFFANIE Lidocaine (Lidocaine 4 % Patch Adh..Patch) 2 patch TRANSDERMA DAILY [facility]; Protocol Last Admin: 06/07/23 09:54 Dose: 2 patch Documented By: MAYCOL Loperamide HCl (Loperamide Hcl 2 Mg Capsule) 4 mg PO Q6H PRN PRN Reason: Diarrhea Last Admin: 06/05/23 11:02 Dose: 4 mg Documented By: MICH Melatonin (Melatonin 3 Mg Tablet) 3 mg PO BEDTIME PRN PRN Reason: Insomnia Last Admin: 06/07/23 00:36 Dose: 3 mg Documented By: GEOFF Morphine Sulfate (Morphine Sulfate 2 Mg/Ml Cartridge) 2 mg IVPUSH Q4H PRN; Protocol PRN Reason: Pain, Moderate(Pain Scale 4-6) Last Admin: 06/06/23 21:14 Dose: 2 mg Documented By: GEOFF Comments: pt reports having abdominal pain Ondansetron HCl (Ondansetron Hcl 4 Mg/2 Ml Vial) 4 mg IVPUSH Q6H PRN PRN Reason: Nausea and Vomiting Last Admin: 06/06/23 21:15 Dose: 4 mg Documented By: GEOFF Comments: pt reports feeling intermittent nausea Oxycodone HCl (Oxycodone Hcl Immed Release 5 Mg Tablet) 5 mg PO Q4H PRN PRN Reason: Pain, Severe (Pain Scale 7-10) Last Admin: 06/07/23 21:35 Dose: 5 mg Documented By: TIFFANIE Pantoprazole Sodium (Pantoprazole Sodium 40 Mg/10 Ml Vial) 40 mg IVPUSH BID@0630,1630 [facility] Last Admin: 06/08/23 05:39 Dose: 40 mg Documented By: TIFFANIE Pentoxifylline (Pentoxifylline Er 400 Mg Tablet.Er) 400 mg PO TID [facility] Last Admin: 06/07/23 10:11 Dose: Not Given Documented By: MAYCOL Non-Admin Reason: held Simethicone (Simethicone 80 Mg Tab.Chew) 80 mg PO QIDWMHS [facility] Last Admin: 06/07/23 23:02 Dose: 80 mg Documented By: TIFFANIE Venlafaxine HCl (Venlafaxine Hcl Er 150 Mg Cap.Er.24h) 150 mg PO DAILY [facility] Last Admin: 06/07/23 09:51 Dose: 150 mg Documented By: MAYCOL Labs 06/08/23 08:28 06/08/23 08:28 Labs: Laboratory Results - last 24 hr 06/07/23 06/07/23 06/07/23 08:37 08:43 11:25 PT 14.6 H INR 1.2 H POC Glucose 196 H Lactic Acid 1.0 06/07/23 06/07/23 06/07/23 11:31 15:46 19:42 PT INR POC Glucose 189 H 205 H 189 H Lactic Acid 06/08/23 07:13 PT INR POC Glucose 187 H Lactic Acid Procedures Date of Service Date of Service: 06/08/23 Progress Note: A&P Assessment and plan (1) Ischemic colitis: Status: Acute Assessment and Plan: Hemoglobin has been stable Minimal bleeding noted since Thursday Looks well and comfortable Abdominal exam very benign Continue current care Follow hemoglobin Patient is a practicing [employer] 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 Quality Stroke Does the patient have a stroke diagnosis?: No VTE Prior VTE?: No VTE Risk Level:: Surgical - very high VTE Device Contraindication: N/A - Device Ordered VTE Drug Contraindication: N/A - Med Ordered
[2023-06-08 08:57] LABS: Hematocrit 23.6 % (37.0-47.0); Hemoglobin 7.6 g/dl (12.0-16.0)
[2023-06-08 09:13] LABS: Anion Gap 16 (12-20); Blood Urea Nitrogen 4 mg/dL (9-16); Calcium 7.6 mg/dL (8.4-10.2); Carbon Dioxide 23 mmol/L (22-29); Chloride 106 mmol/L (96-108); Creatinine Clr Calc Pharmacy 88.3; Estimated Glomerular Filt Rate > 60; Glucose Random 207 mg/dL (60-115); Sodium 142 mmol/L (135-145)
[2023-06-08] MEDS: oxyCODONE HCl Immed Release 5 MG TABLET PO ×3 (09:21→17:45)
[2023-06-08] MEDS: Gabapentin 100 MG CAPSULE PO ×3 (09:22→20:52)
[2023-06-08] MEDS: Folic Acid 1 MG TABLET PO (09:22)
[2023-06-08] MEDS: Venlafaxine HCl ER 150 MG CAP.ER.24H PO (09:22)
[2023-06-08] MEDS: Cyanocobalamin (Vitamin B-12) 100 MCG TABLET PO (09:22)
[2023-06-08] MEDS: Lidocaine 4 % Patch ADH..PATCH 2 PATCH TRANSDERMA (09:22)
[2023-06-08] MEDS: Simethicone 80 MG TAB.CHEW PO ×4 (09:22→20:52)
[2023-06-08] MEDS: Iron Sucrose Complex 200 MG in 0.9 % Sodium Chloride 100 ML 440 MG IV (09:23)
[2023-06-08 10:47] LABS: Glucose, Whole Blood 199 mg/dL (60-115)
[2023-06-08] MEDS: 0.9 % Sodium Chloride 1,000 ML 100 ML IVCONT ×2 (10:52→20:51)
--- NOTE | 2023-06-08 11:22 | HO.PM.IMPN ---
Subjective Subjective Date of Service: 06/08/23 Interval History: seen and examined this morning follow up for GI bleeding bleeding had slowed down yesterday, but increased again overnight H/H continues to trend down having bloating and abdominal pain Review of Systems Review of Systems: Yes all other systems are reviewed and are negative Constitutional Constitutional: Denies chills and Denies fever(s) ENT Ears, Nose, Mouth, and Throat: Denies dizziness Cardiovascular Cardiovascular: Denies chest pain and Denies dyspnea Respiratory Respiratory: Denies dyspnea Gastrointestinal Gastrointestinal: Reports abdominal pain Neurologic Neurologic: Denies dizziness Physical Exam Vital Signs: Vital Signs: Last Vital Signs Temp 97.0 F 06/08/23 07:49 Pulse 101 H 06/08/23 07:49 Resp 20 06/08/23 07:49 BP 176/66 H 06/08/23 07:49 Pulse Ox 94 06/08/23 07:49 O2 Del Method Room Air 06/08/23 07:49 O2 Flow Rate 96 06/06/23 06:26 FiO2 93 05/29/23 19:00 Oxygen Flow Rate 3 05/29/23 04:00 BMI result Body Mass Index 37.7 Appearing in no acute distress lung sounds are clear to auscultation heart regular rate rhythm, clear S1, S2 positive bowel sounds, abdomen is soft, nontender neuro patient is alert x3, no focal deficits Objective Data Active Medications Albuterol Sulfate (Albuterol Sulfate 90 Mcg 8 Gm Inhaler) 2 puff INHALE RQ4H PRN PRN Reason: Wheezing Albuterol/Ipratropium (Albuterol/Iprat 2.5/0.5mg 3 Ml Ampul.Neb) 3 ml INHALE RQ4H WHILE AWAKE PRN PRN Reason: Wheezing Clonidine HCl (Clonidine Hcl 0.2 Mg Tablet) 0.2 mg PO BEDTIME [facility]; Protocol Last Admin: 06/04/23 21:17 Dose: 0.2 mg Documented By: LO Cyanocobalamin (Cyanocobalamin (Vitamin B-12) 100 Mcg Tablet) 100 mcg PO DAILY [facility] Last Admin: 06/08/23 09:22 Dose: 100 mcg Documented By: RHONDA Dextrose (Dextrose 50 % 25 Gm/50 Ml Syringe) 25 gm IVPUSH Q15M PRN; Protocol PRN Reason: per Hypoglycemia Standing Ord. Epoetin Elder-epbx (Epoetin Elder-Epbx 10,000 Unit/Ml Vial) 10,000 unit SUBCUT [facility] Folic Acid (Folic Acid 1 Mg Tablet) 1 mg PO DAILY [facility] Last Admin: 06/08/23 09:22 Dose: 1 mg Documented By: RHONDA Gabapentin (Gabapentin 100 Mg Capsule) 100 mg PO TID [facility] Last Admin: 06/08/23 09:22 Dose: 100 mg Documented By: RHONDA Glucose (Glucose Gel 15 Gm Gel..Gram.) 15 gm PO Q15M PRN; Protocol PRN Reason: per Hypoglycemia Standing Ord. Metronidazole (Flagyl) 500 mg in 100 mls @ 100 mls/hr IV Q8H [facility] Last Infusion: 06/08/23 04:47 Dose: Infused Documented By: TIFFANIE Levofloxacin (Levaquin) 750 mg in 150 mls @ 100 mls/hr IV Q24H [facility] Last Infusion: 06/07/23 15:58 Dose: Infused Documented By: MAYCOL Acetaminophen (Ofirmev) 1,000 mg in 100 mls @ 400 mls/hr IV Q6H [facility] Last Infusion: 06/08/23 09:44 Dose: Infused Documented By: RHONDA Iron Sucrose 200 mg/ Sodium (Chloride) 110 mls @ 440 mls/hr IV DAILY [facility] Stop: 06/10/23 11:14 Last Infusion: 06/08/23 09:44 Dose: Infused Documented By: RHONDA Sodium Chloride (Ns) 1,000 mls @ 100 mls/hr IVCONT .Q10H [facility] Last Admin: 06/08/23 10:52 Dose: 100 mls/hr Documented By: MAIRA Insulin Glargine (Insulin Glargine,Hum.Rec.Anlog 100 Unit/Ml 10 Ml Vial) 10 unit SUBCUT BEDTIME [facility] Last Admin: 06/04/23 21:17 Dose: 10 unit Documented By: LO Insulin Human Lispro (Insulin Lispro 100 Unit/Ml 3 Ml Vial) 0 unit SUBCUT QIDACHS [facility]; Protocol Last Admin: 06/08/23 09:23 Dose: Not Given Documented By: RHONDA Non-Admin Reason: NPO Levothyroxine Sodium (Levothyroxine Sodium 75 Mcg Tablet) 75 mcg PO DAILY@0600 [facility] Last Admin: 06/08/23 05:39 Dose: 75 mcg Documented By: TIFFANIE Lidocaine (Lidocaine 4 % Patch Adh..Patch) 2 patch TRANSDERMA DAILY [facility]; Protocol Last Admin: 06/08/23 09:22 Dose: 2 patch Documented By: RHONDA Loperamide HCl (Loperamide Hcl 2 Mg Capsule) 4 mg PO Q6H PRN PRN Reason: Diarrhea Last Admin: 06/05/23 11:02 Dose: 4 mg Documented By: MICH Melatonin (Melatonin 3 Mg Tablet) 3 mg PO BEDTIME PRN PRN Reason: Insomnia Last Admin: 06/07/23 00:36 Dose: 3 mg Documented By: GEOFF Morphine Sulfate (Morphine Sulfate 2 Mg/Ml Cartridge) 2 mg IVPUSH Q4H PRN; Protocol PRN Reason: Pain, Moderate(Pain Scale 4-6) Last Admin: 06/06/23 21:14 Dose: 2 mg Documented By: GEOFF Comments: pt reports having abdominal pain Ondansetron HCl (Ondansetron Hcl 4 Mg/2 Ml Vial) 4 mg IVPUSH Q6H PRN PRN Reason: Nausea and Vomiting Last Admin: 06/06/23 21:15 Dose: 4 mg Documented By: GEOFF Comments: pt reports feeling intermittent nausea Oxycodone HCl (Oxycodone Hcl Immed Release 5 Mg Tablet) 5 mg PO Q4H PRN PRN Reason: Pain, Severe (Pain Scale 7-10) Last Admin: 06/08/23 09:21 Dose: 5 mg Documented By: RHONDA Pantoprazole Sodium (Pantoprazole Sodium 40 Mg/10 Ml Vial) 40 mg IVPUSH BID@0630,1630 [facility] Last Admin: 06/08/23 05:39 Dose: 40 mg Documented By: TIFFANIE Pentoxifylline (Pentoxifylline Er 400 Mg Tablet.Er) 400 mg PO TID [facility] Last Admin: 06/07/23 10:11 Dose: Not Given Documented By: MAYCOL Non-Admin Reason: held Simethicone (Simethicone 80 Mg Tab.Chew) 80 mg PO QIDWMHS [facility] Last Admin: 06/08/23 09:22 Dose: 80 mg Documented By: RHONDA Venlafaxine HCl (Venlafaxine Hcl Er 150 Mg Cap.Er.24h) 150 mg PO DAILY [facility] Last Admin: 06/08/23 09:22 Dose: 150 mg Documented By: RHONDA Labs 06/08/23 08:28 06/08/23 08:28 Labs: Laboratory Results - last 24 hr 06/07/23 06/07/23 06/07/23 11:25 11:31 15:46 Anion Gap Estim Creat Clear Calc Estimated GFR POC Glucose 189 H 205 H Random Glucose Lactic Acid 1.0 Calcium 06/07/23 06/08/23 06/08/23 19:42 07:13 08:28 Anion Gap 16 Estim Creat Clear Calc 88.3 Estimated GFR > 60 POC Glucose 189 H 187 H Random Glucose 207 H Lactic Acid Calcium 7.6 L 06/08/23 10:42 Anion Gap Estim Creat Clear Calc Estimated GFR POC Glucose 199 H Random Glucose Lactic Acid Calcium Assessment and Plan (1) Acute blood loss anemia: Status: Acute (2) Ischemic colitis: Status: Acute (3) Status post knee replacement: Status: Acute (4) Pulmonary embolism: Status: Acute (5) Urinary retention: Status: Acute Plan 68 year old female with history of htn, asthma/copd overlap, type 2 diabetes, hld, gerd, who presented on 05/25 for elective Left TKA. She subsequently developed hypotention requiring ICU level of care [id number]/31 and was diagnosed to have b/l segmental PE; hospital course further complicated by probable ischemic colitis and now with rectal bleeding/ acute blood loss anemia Rectal bleeding/acute blood loss anemia likely due to ischemic colitis AC on hold for now Bleeding scan 06/04 - no evidence of gastrointestinal hemorrhage seen by hematology, as unable to receive blood products (Tenriism), will treat with 4 doses of IV iron, s/p one dose of procrit CTA abdomen/pelvis 06/06 with no extravasation to suggest site of GI bleeding discussed with [facility] about transfer but with no active bleeding on CTA, no need for IR, they do not feel higher level of care necessary at this time discussed with lineman, no need for ICU at this time as blood pressure stable surgery following, discussed with anesthesia - at high risk for surgery given acute bilateral PE. But if deteriorates, left colectomy may become necessary HH today 7.6/23.6 Ischemic Colitis seen by GI, underwent sigmoidoscopy 06/03 - c/w with healing ischemic colitis continue IV Levaquin/Flagyl trental on hold avoid low blood pressure general surgery following Pulmonary embolus CTA 05/28 with bilateral nonocclusive segmental pulmonary emboli (Filling defect identified within the right upper, right middle, right lower, left upper, and left lower pulmonary arterial branches) no respiratory symptoms, continues to remain on room air echo with no evidence of right heart strain therapeutic lovenox on hold due to rectal bleeding as above Left lower extremity ultrasound negative for DVT IVC filter placement today OA s/p L TKA 05/25 plan per ortho surgery hypokalemia likely due to GI loss, decreased po intake replace and follow follow BMP Urinary retention (likely secondary to anesthesia/opiates) hylton placed again 06/01 seen by urology Type 2 diabetes lantus on hold as NPO Continue SSI, follow POCs HTN BP meds placed on hold to prevent hypotension in the setting of active GI bleed (lisinopril, clonidine, metoprolol) lasix, HCTZ on hold verapamil d/c in ICU due to hypotension Hypothyroidism continue synthroid mood continue effexor obesity BMI 37.7 weight loss encouraged Attending Dr. Heard SCD boots Requires ongoing hospitalization secondary to the need for IV antibiotics to treat colitis and close monitoring of anemia Quality Stroke Does the patient have a stroke diagnosis?: No VTE Prior VTE?: No VTE Risk Level:: Surgical - very high VTE Device Contraindication: N/A - Device Ordered VTE Drug Contraindication: N/A - Med Ordered
--- NOTE | 2023-06-08 11:26 | MHC.CM.PN ---
Per ROUNDS discussion, Patient is not yet medically cleared for dc (IV Levaquin, IV Protonix); PT is recommending STR and CM will continue to follow.
--- NOTE | 2023-06-08 12:26 | P.CONGS_ITS ---
History of Present Illness Consult details Consult date: 06/08/23 Reason for consult: other (pe) Narrative: Pleasant 68-year-old female who presented to the hospital with acute blood loss anemia and ischemic colitis. Upon workup was found to have a pulmonary embolism. She now presents to us for evaluation and possible IVC filter placement. Of note for adventist purposes she has not accepted blood transfusions Review of Systems 2 Review of Systems: Yes all other systems are reviewed and are negative Constitutional: Constitutional: Reports no additional constitutional complaints ENT: Reports Normal hearing present Cardiovascular: Cardiovascular: Denies chest pain, Denies chest pain at rest, Denies chest pain with activity and Denies pedal edema Respiratory: Respiratory: Denies cough Gastrointestinal: Gastrointestinal: Denies abdominal pain Musculoskeletal: Musculoskeletal: Denies abnormal gait, Denies muscle cramps and Denies radiating pain into limb Integumentary/Breasts: Skin/Breast: Denies skin ulcer and Denies wounds Neurologic: Reports Normal hearing present and Denies abnormal gait Psychiatric: Psychiatric: Reports no additional psychiatric complaints PMFSH Past Medical History Medical History Colitis, infectious Chronic restrictive lung disease Obesity (BMI 30.0-34.9) Cough due to SHANELLE inhibitor Eosinophilia Asthma HTN (hypertension) T2DM (type 2 diabetes mellitus) Erosive gastritis Leg edema, left Hyperparathyroidism Vitamin D deficiency Multinodular thyroid Thyroid nodule Skin lesion of chest wall Type 2 diabetes mellitus with diabetic polyneuropathy Fibromyalgia Depression with anxiety Cervical cancer Osteoarthritis of left knee Osteopenia GERD (gastroesophageal reflux disease) Diabetes mellitus with hyperglycemia Meir's disease Other specified acquired hypothyroidism Hyperlipidemia LDL goal <100 Essential hypertension Vitamin B12 deficiency Other obesity due to excess calories BMI 35.0-35.9,adult Family History Family History Father CVD (cardiovascular disease) Diabetes mellitus Stroke Mother Stroke Diabetes mellitus Breast cancer Hyperthyroidism Surgical History Surgical History Hx of elbow surgery Hx of hand surgery Hx of arthroscopic knee surgery History of cholecystectomy History of arthroplasty of right knee Hx of hysterectomy Hx of foot surgery History of bilateral carpal tunnel release Hx of bilateral oophorectomy History of esophagogastroduodenoscopy (EGD) Hx of colonoscopy Social History Social History Household Members: Spouse Housing: House Housing Other:: 2nd floor-2 family house Are you a primary managed care liaison to a significant other at home: No Do you presently have visiting nurse or 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 home 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) Alcohol intake: never Comment: continues with camera Patient Tobacco Use Status: Never used Tobacco service: No 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al status: disabled 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 Allergies Allergy/AdvReac Type Severity Reaction Status Date / Time hazelnut Allergy Mild per Verified 05/26/23 07:56 allergy skin test peanut Allergy Mild per Verified 05/26/23 07:56 allergy skin test Active Medications: Current Medications Albuterol Sulfate (Albuterol Sulfate 90 Mcg 8 Gm Inhaler) 2 puff INHALE RQ4H PRN PRN Reason: Wheezing Albuterol/Ipratropium (Albuterol/Iprat 2.5/0.5mg 3 Ml Ampul.Neb) 3 ml INHALE RQ4H WHILE AWAKE PRN PRN Reason: Wheezing Clonidine HCl (Clonidine Hcl 0.2 Mg Tablet) 0.2 mg PO BEDTIME [facility]; Protocol Last Admin: 06/04/23 21:17 Dose: 0.2 mg Cyanocobalamin (Cyanocobalamin (Vitamin B-12) 100 Mcg Tablet) 100 mcg PO DAILY [facility] Last Admin: 06/08/23 09:22 Dose: 100 mcg Dextrose (Dextrose 50 % 25 Gm/50 Ml Syringe) 25 gm IVPUSH Q15M PRN; Protocol PRN Reason: per Hypoglycemia Standing Ord. Epoetin Elder-epbx (Epoetin Elder-Epbx 10,000 Unit/Ml Vial) 10,000 unit [facility] Folic Acid (Folic Acid 1 Mg Tablet) 1 mg PO DAILY [facility] Last Admin: 06/08/23 09:22 Dose: 1 mg Gabapentin (Gabapentin 100 Mg Capsule) 100 mg PO TID [facility] Last Admin: 06/08/23 09:22 Dose: 100 mg Glucose (Glucose Gel 15 Gm Gel..Gram.) 15 gm PO Q15M PRN; Protocol PRN Reason: per Hypoglycemia Standing Ord. Metronidazole (Flagyl) 500 mg in 100 mls @ 100 mls/hr IV Q8H [facility] Last Infusion: 06/08/23 04:47 Dose: Infused Levofloxacin (Levaquin) 750 mg in 150 mls @ 100 mls/hr IV Q24H [facility] Last Infusion: 06/07/23 15:58 Dose: Infused Acetaminophen (Ofirmev) 1,000 mg in 100 mls @ 400 mls/hr IV Q6H [facility] Last Infusion: 06/08/23 09:44 Dose: Infused Iron Sucrose 200 mg/ Sodium (Chloride) 110 mls @ 440 mls/hr IV DAILY [facility] Stop: 06/10/23 11:14 Last Infusion: 06/08/23 09:44 Dose: Infused Sodium Chloride (Ns) 1,000 mls @ 100 mls/hr IVCONT .Q10H [facility] Last Admin: 06/08/23 10:52 Dose: 100 mls/hr Insulin Glargine (Insulin Glargine,Hum.Rec.Anlog 100 Unit/Ml 10 Ml Vial) 10 unit SUBCUT BEDTIME [facility] Last Admin: 06/04/23 21:17 Dose: 10 unit Insulin Human Lispro (Insulin Lispro 100 Unit/Ml 3 Ml Vial) 0 unit SUBCUT QIDACHS [facility]; Protocol Last Admin: 06/08/23 09:23 Dose: Not Given Levothyroxine Sodium (Levothyroxine Sodium 75 Mcg Tablet) 75 mcg PO DAILY@0600 [facility] Last Admin: 06/08/23 05:39 Dose: 75 mcg Lidocaine (Lidocaine 4 % Patch Adh..Patch) 2 patch TRANSDERMA DAILY [facility]; Protocol Last Admin: 06/08/23 09:22 Dose: 2 patch Loperamide HCl (Loperamide Hcl 2 Mg Capsule) 4 mg PO Q6H PRN PRN Reason: Diarrhea Last Admin: 06/05/23 11:02 Dose: 4 mg Melatonin (Melatonin 3 Mg Tablet) 3 mg PO BEDTIME PRN PRN Reason: Insomnia Last Admin: 06/07/23 00:36 Dose: 3 mg Morphine Sulfate (Morphine Sulfate 2 Mg/Ml Cartridge) 2 mg IVPUSH Q4H PRN; Protocol PRN Reason: Pain, Moderate(Pain Scale 4-6) Last Admin: 06/06/23 21:14 Dose: 2 mg Ondansetron HCl (Ondansetron Hcl 4 Mg/2 Ml Vial) 4 mg IVPUSH Q6H PRN PRN Reason: Nausea and Vomiting Last Admin: 06/06/23 21:15 Dose: 4 mg Oxycodone HCl (Oxycodone Hcl Immed Release 5 Mg Tablet) 5 mg PO Q4H PRN PRN Reason: Pain, Severe (Pain Scale 7-10) Last Admin: 06/08/23 09:21 Dose: 5 mg Pantoprazole Sodium (Pantoprazole Sodium 40 Mg/10 Ml Vial) 40 mg IVPUSH BID@0630,1630 [facility] Last Admin: 06/08/23 05:39 Dose: 40 mg Pentoxifylline (Pentoxifylline Er 400 Mg Tablet.Er) 400 mg PO TID [facility] Last Admin: 06/07/23 10:11 Dose: Not Given Simethicone (Simethicone 80 Mg Tab.Chew) 80 mg PO QIDWMHS [facility] Last Admin: 06/08/23 09:22 Dose: 80 mg Simethicone (Simethicone 80 Mg Tab.Chew) 80 mg PO QIDWMHS PRN PRN Reason: gas Venlafaxine HCl (Venlafaxine Hcl Er 150 Mg Cap.Er.24h) 150 mg PO DAILY [facility] Last Admin: 06/08/23 09:22 Dose: 150 mg Home Medications Medication Instructions Recorded Confirmed Last Taken Type hydrochlorothiazide 50 mg tablet 50 mg PO DAILY 02/29/20 05/21/23 05/25/23 History blood sugar diagnostic #10 ea 03/19/20 05/21/23 02/26/23 History hydroxyzine HCl 50 mg tablet 50 mg PO Q8H PRN anxiety 03/19/20 05/21/23 05/25/23 History lisinopril 40 mg tablet 40 mg PO DAILY 03/19/20 05/21/23 05/25/23 History metoprolol succinate 200 mg 200 mg PO DAILY 07/09/20 05/21/23 05/26/23 01:00 History tablet,extended release 24 hr trazodone 150 mg tablet 300 mg PO BEDTIME 07/09/20 05/21/23 05/25/23 History lancets 33 gauge (Jenelle Deldeja #100 ea 04/17/21 05/21/23 02/26/23 History Plus Lancet) verapamil 180 mg tablet,extended 360 mg PO DAILY 10/17/21 05/27/23 05/26/23 01:00 History release albuterol sulfate 0.63 mg/3 mL 1 amp inhalation Q4H PRN wheezing 03/24/22 05/21/23 Unknown History solution for nebulization levothyroxine 75 mcg tablet 75 mcg PO DAILY@0600 03/24/22 05/21/23 05/26/23 01:00 History multivitamin-ferrous 1 tab PO DAILY 03/24/22 05/21/23 05/25/23 History fumarate-folic acid 18 mg-400 mcg tablet (Certavite-Antioxidant) clonidine HCl 0.1 mg tablet 0.2 mg PO BEDTIME 02/28/23 05/21/23 05/25/23 History cyanocobalamin (vitamin B-12) 1,000 mcg PO DAILY 02/28/23 05/21/23 05/25/23 History 1,000 mcg sublingual tablet dexlansoprazole 60 mg 60 mg PO DAILY@0630 02/28/23 05/21/23 05/26/23 01:00 History capsule,biphase delayed release empagliflozin 25 mg tablet 25 mg PO QAM 02/28/23 05/21/23 05/11/23 History (Jardiance) insulin glargine 100 unit/mL (3 34 unit subcut BEDTIME 02/28/23 05/21/23 05/25/23 History mL) subcutaneous pen (Lantus Solostar U-100 Insulin) pioglitazone 15 mg tablet 15 mg PO QAM 02/28/23 05/21/23 05/25/23 History semaglutide 0.25 mg or 0.5 mg (2 0.5 mg subcut MO@0900 02/28/23 05/21/23 05/11/23 History mg/3 mL) subcutaneous pen injector (Ozempic) venlafaxine 150 mg 150 mg PO DAILY 05/20/23 05/27/23 05/25/23 History capsule,extended release 24 hr fluticasone propionate 50 1 spray intranasal DAILY 05/25/23 05/26/23 05/25/23 History mcg/actuation nasal spray,suspension furosemide 40 mg tablet 40 mg PO DAILY 05/25/23 05/27/23 05/25/23 History fluticasone fur. 200 mcg-umeclid 1 ea inhalation DAILY 05/26/23 05/26/23 05/26/23 01:00 History 62.5 mcg-vilant 25 mcg inhalat.powder (Trelegy Ellipta) psyllium husk 3 gram/5.4 gram oral 3 g PO DAILY 05/27/23 05/27/23 Unknown History powder (Reguloid (psyllium husk)) Physical Exam 2 Vital Signs: Vital Signs: Last Vital Signs Temp 97.0 F 06/08/23 07:49 Pulse 101 H 06/08/23 07:49 Resp 20 06/08/23 07:49 BP 176/66 H 06/08/23 07:49 Pulse Ox 94 06/08/23 07:49 O2 Del Method Room Air 06/08/23 07:49 O2 Flow Rate 96 06/06/23 06:26 FiO2 93 05/29/23 19:00 Oxygen Flow Rate 3 05/29/23 04:00 BMI result Body Mass Index 37.7 Const: General: cooperative, healthy appearing and comfortable O rientation/consciousness: oriented to person, oriented to place and oriented to time HEENT: Head: Yes normal to inspection Neck: Neck: Yes normal visual inspection Carotids: no bruits Chest: Chest palpation & inspection: normal inspection of the chest Resp: Effort & Inspection: normal respiratory effort and able to speak in complete sentences Auscultation: clear to auscultation bilaterally, no crackles, no rales, no rhonchi and no wheezes Cardio: Rate: regular rate Rhythm: regular rhythm Heart sounds: S1 normal heart sound present and S2 normal heart sound present Bruits: no carotid bruits Peripheral pulses: Peripheral pulses 2+ throughout GI: Inspection: Yes normal to inspection Skin: Wounds: no wounds Hair: normal Neuro: General: oriented to person, oriented to place and oriented to time Cranial nerves: Yes CN's II-XII intact bilaterally and Yes Normal hearing present Cognition (Neuro): normal cognition Motor exam (neuro): 5/5 motor strength present throughout Extrem: Other: venous exam: No significant superficial varicosities or spider telangiectasias, minimal edema General: No clubbing, No cyanosis and No edema Psych: Appearance: grossly normal Mental Status: mental status grossly normal Speech and movement: Normal speech and movement present Results Labs 06/08/23 08:28 06/08/23 08:28 Labs: Abnormal lab results 06/07/23 06/07/23 06/07/23 Range/Units 15:46 19:42 22:04 Hgb 7.7 L (12.0-16.0) g/dl Hct 24.0 L (37.0-47.0) % Potassium (3.3-5.1) mmol/L BUN (9-16) mg/dL POC Glucose 205 H 189 H (60-115) mg/dL Random Glucose (60-115) mg/dL Calcium (8.4-10.2) mg/dL 06/08/23 06/08/23 06/08/23 Range/Units 07:13 08:28 10:42 Hgb 7.6 L (12.0-16.0) g/dl Hct 23.6 L (37.0-47.0) % Potassium 3.0 L (3.3-5.1) mmol/L BUN 4 L (9-16) mg/dL POC Glucose 187 H 199 H (60-115) mg/dL Random Glucose 207 H (60-115) mg/dL Calcium 7.6 L (8.4-10.2) mg/dL Short CBC 06/07/23 06/08/23 Range/Units 22:04 08:28 Hgb 7.7 L 7.6 L (12.0-16.0) g/dl Hct 24.0 L 23.6 L (37.0-47.0) % BMP 06/08/23 08:28 Sodium 142 Potassium 3.0 L Chloride 106 Carbon Dioxide 23 BUN 4 L Creatinine 0.64 Calcium 7.6 L Urine 05/29/23 06/07/23 Range/Units 13:08 04:15 Urine Color Dark Yellow Yellow Urine Appearance Clear Turbid Urine pH 5.0 6.0 (5.0-9.0) Ur Specific Beatty >= 1.030 H 1.010 (1.005-1.025) Urine Protein Trace Trace (Neg-Trace) mg/dL Urine Glucose (UA) 250 H 100 H (Negative) mg/dL All other labs normal. Assessment and Plan (1) Pulmonary embolism: Qualifiers: Pulmonary embolism type: unspecified Chronicity: acute Acute cor pulmonale presence: with acute cor pulmonale Qualified Code(s): I26.09 - Other pulmonary embolism with acute cor pulmonale Status: Acute Plan In short patient has bilateral pulmonary embolism. Due to the inability to anticoagulate the patient will require vena cava filter. Risks benefits complications were discussed in detail with the patient and the patient's family including son. They agreed and would like to move forward. Procedures Date of Service Date of Service: 06/08/23
--- NOTE | 2023-06-08 12:30 | W.PM.OPN ---
Operative Note Operative Note Date of Service: 06/08/23 Narrative: Angiogram report from [facility] Preoperative diagnosis: Deep venous thrombosis Postoperative diagnosis: Same Procedure: 1. Ultrasound-guided right common femoral vein access 2. Inferior vena cavogram 3. Placement of inferior vena cava filter Surgeon:Cordell Fields M.D., FACS, RPVI Biology Instructor:None Anesthesia: Local only Specimens:none Drains:none Estimated blood loss: Less than 10 ml Implant: Bard Gayle retrievable vena cava filter Indications: Patient presented with bilateral pulmonary embolism. Now presents for IVC filter placed The patient has signed the informed consent after reviewing risks, complications, benefits, and alternatives previously discussed with the patient. The patient was given the opportunity to ask any additional questions or voice any concerns. All questions were answered to the patient's satisfaction. Procedure in detail: Patient was brought to the angiography suite prior to which a time-out was called for patient identification and site verification. Bilateral groins were prepped and draped in the standard surgical fashion. Under ultrasound guidance right common femoral vein was punctured with micro puncture needle and wire. Subsequently a precision 5 Guamanian sheath was then placed. [employer] wire was advanced to the level of the vena cava. Vena cavogram was then undertaken through the 5 Guamanian sheath. This was a baseline study to define the variant anatomy, caval size, location and number of renal veins, and to evaluate for ileo caval thrombus. Under direct fluoroscopic guidance we exchanged out the 5 Guamanian sheath for the Bard Gayle sheath. We brought the filter into position. This was then subsequently deployed. The inner cannula was then removed. Through the sheath a hand injection was performed to assess filter position. Once this was accomplished the sheath was then removed, and hemostasis was achieved with 10 minutes of direct compression. No immediate complications occurred and the patient was returned to the recovery suite with no complications Interpretation of films: 1. Ultrasound demonstrates appropriate femoral vein puncture. Image of which was saved. 2. There was no ileal caval thrombus noted 3. There are single renal veins bilaterally and the IVC is normal in caliber. There is no aberrant anatomy. 4. The filter was deployed appropriately and position below the lowest renal vein. Conclusion: 1. Successful placement of Bard King IVC filter 2. Anticoagulation status: Resume regular anticoagulation as indicated 4 hours post filter placement This note is constructed using voice recognition software. While every effort has been made to ensure accuracy, manufacturing advisor errors may have been included. Thank you for allowing me to participate in the care of your patient. Yours sincerely, Cordell Fields MD, FACS, R.P.V.I.
[2023-06-08 13:20] LABS: Glucose, Whole Blood 176 mg/dL (60-115)
[2023-06-08] MEDS: Potassium Chloride ER 20 MEQ TAB.ER.PRT 40 MEQ PO (13:26)
[2023-06-08] MEDS: levoFLOXacin/D5W 750 MG/150 ML PIGGYBACK 100 MG IV (13:27)
--- NOTE | 2023-06-08 14:41 | MHC.CLN ---
PT IS DAY 7 NPO WITH POOR PO INTAKE SINCE 06/01 PT WITH C/L/F/L OR NPO DIET; NOTED LOW FIBER DIET ORDER FOR ONE HOUR ON 06/04 PT NOT MEETING ESTIMATED NUTRITION NEEDS AT THIS TIME RECOMMEND PPN AT 35ML/HR TO PROVIDE 428KCALS, 84G DEXTROSE, 36G PROTEIN TO START 06/09/23 REPLETE LYTES NEEDED FOLLOWING FOR DIET ADVANCEMENT SEE ALSO FULL CLINICAL NUTRITION ASSESSMENT
[2023-06-08 16:16] LABS: Glucose, Whole Blood 181 mg/dL (60-115)
[2023-06-08 20:40] LABS: Glucose, Whole Blood 156 mg/dL (60-115)
[2023-06-08] MEDS: Melatonin 3 MG TABLET PO (20:52)
[2023-06-09 03:16] VITALS: BP 148/82; PULSE 106; RESP 18; TEMP 36; O2SAT 98
[2023-06-09] MEDS: metroNIDAZOLE/NS 500 MG/100 ML PIGGYBACK 100 MG IV ×3 (03:20→20:41)
[2023-06-09] MEDS: oxyCODONE HCl Immed Release 5 MG TABLET PO ×5 (03:20→20:42)
[2023-06-09] MEDS: Levothyroxine Sodium 75 MCG TABLET PO (05:45)
[2023-06-09] MEDS: Pantoprazole Sodium 40 MG/10 ML VIAL IVPUSH (05:45)
[2023-06-09 07:21] LABS: Glucose, Whole Blood 194 mg/dL (60-115)
[2023-06-09 07:24] VITALS: BP 190/84; PULSE 104; RESP 20; TEMP 37; O2SAT 99
[2023-06-09 07:28] LABS: Hematocrit 25.7 % (37.0-47.0); Hemoglobin 8.3 g/dl (12.0-16.0)
--- NOTE | 2023-06-09 07:41 | PM.PNORT ---
Subjective Subjective Date of Service: 06/09/23 Principal diagnosis: left TKA Interval history: s/p LT TKA 05/26/23 resting in bed comfortably Knee pain is controlled C/o abdominal pain Physical Exam Vital Signs: Vital Signs: Last Vital Signs Temp 98.6 F 06/09/23 07:24 Pulse 104 H 06/09/23 07:24 Resp 20 06/09/23 07:24 BP 190/84 H 06/09/23 07:24 Pulse Ox 99 06/09/23 07:24 O2 Del Method Room Air 06/09/23 07:24 O2 Flow Rate 96 06/06/23 06:26 FiO2 93 05/29/23 19:00 Oxygen Flow Rate 3 05/29/23 04:00 BMI result Body Mass Index 37.7 Const: General: cooperative, healthy appearing and no acute distress Resp: Effort & Inspection: normal respiratory effort and able to speak in complete sentences Cardio: Rate: regular rate Peripheral pulses: Peripheral pulses 2+ throughout GI: Palpation (GI): Soft to palpation Skin: Lesions: no lesions Rashes: no rashes Extrem: Other: Left knee Aquacel is c/d/i. Able to flex and extend the knee. Able to plantar/dorsi flex. Pedal pulse intact. Sensation intact. Pressure sore dressing placed on the left heel, no open wound visible at this time. Procedures Date of Service Date of Service: 06/09/23 Progress Note: A&P Assessment and plan (1) Colitis, infectious: Status: Acute (2) Status post knee replacement: Status: Acute (3) Pulmonary embolism: Status: Acute Assessment and Plan: POD14 s/p left TKA Bilateral PE Ischemic colitis PT for LTKA - wbat encouraged out of bed to chair and walking Pressure wound dressing is applied to the left heel - Monitor for any skin breakdown d/c when medically stable (4) Diabetes: Status: Acute (5) Urinary retention: Status: Acute (6) BMI 35.0-35.9,adult: Status: Acute (7) Status post total left knee replacement: Status: Acute Time Spent With Patient Time: Total time managing care of this patient today ____ minutes. Quality Stroke Does the patient have a stroke diagnosis?: No VTE Prior VTE?: No VTE Risk Level:: Surgical - very high VTE Device Contraindication: N/A - Device Ordered VTE Drug Contraindication: N/A - Med Ordered
[2023-06-09 07:54] LABS: Anion Gap 17 (12-20); Blood Urea Nitrogen 4 mg/dL (9-16); Calcium 7.9 mg/dL (8.4-10.2); Carbon Dioxide 21 mmol/L (22-29); Chloride 107 mmol/L (96-108); Creatinine Clr Calc Pharmacy 89.7; Estimated Glomerular Filt Rate > 60; Glucose Random 221 mg/dL (60-115); Sodium 142 mmol/L (135-145)
[2023-06-09] MEDS: Iron Sucrose Complex 200 MG in 0.9 % Sodium Chloride 100 ML 440 MG IV (08:57)
[2023-06-09] MEDS: Insulin Lispro 100 UNIT/ML 3 ML VIAL SUBCUT ×4 (08:57→20:41)
[2023-06-09] MEDS: Lidocaine 4 % Patch ADH..PATCH 2 PATCH TRANSDERMA (08:57)
[2023-06-09] MEDS: Cyanocobalamin (Vitamin B-12) 100 MCG TABLET PO (08:58)
[2023-06-09] MEDS: Simethicone 80 MG TAB.CHEW PO ×3 (08:58→20:43)
[2023-06-09] MEDS: lisinopriL 10 MG TABLET PO (08:58)
[2023-06-09] MEDS: Gabapentin 100 MG CAPSULE PO ×3 (08:58→20:42)
[2023-06-09] MEDS: Folic Acid 1 MG TABLET PO (08:58)
[2023-06-09] MEDS: Venlafaxine HCl ER 150 MG CAP.ER.24H PO (08:59)
--- NOTE | 2023-06-09 08:59 | P.PNGS_ITS ---
Subjective Subjective Date of Service: 06/09/23 Interval history: Says she feels well Hungry and wants to eat No further bleeding IVC filter placed yesterday Physical Exam 2 Vital Signs: Vital Signs: Last Vital Signs Temp 98.6 F 06/09/23 07:24 Pulse 104 H 06/09/23 07:24 Resp 20 06/09/23 07:24 BP 190/84 H 06/09/23 07:24 Pulse Ox 99 06/09/23 07:24 O2 Del Method Room Air 06/09/23 07:24 O2 Flow Rate 96 06/06/23 06:26 FiO2 93 05/29/23 19:00 Oxygen Flow Rate 3 05/29/23 04:00 BMI result Body Mass Index 37.7 Const: General: comfortable and no acute distress Resp: Effort & Inspection: normal respiratory effort GI: Palpation (GI): Soft to palpation, not firm and nontender Objective Data Active Medications Albuterol Sulfate (Albuterol Sulfate 90 Mcg 8 Gm Inhaler) 2 puff INHALE RQ4H PRN PRN Reason: Wheezing Clonidine HCl (Clonidine Hcl 0.2 Mg Tablet) 0.2 mg PO BEDTIME [facility]; Protocol Last Admin: 06/04/23 21:17 Dose: 0.2 mg Documented By: LO Cyanocobalamin (Cyanocobalamin (Vitamin B-12) 100 Mcg Tablet) 100 mcg PO DAILY [facility] Last Admin: 06/08/23 09:22 Dose: 100 mcg Documented By: RHONDA Dextrose (Dextrose 50 % 25 Gm/50 Ml Syringe) 25 gm IVPUSH Q15M PRN; Protocol PRN Reason: per Hypoglycemia Standing Ord. Folic Acid (Folic Acid 1 Mg Tablet) 1 mg PO DAILY [facility] Last Admin: 06/08/23 09:22 Dose: 1 mg Documented By: RHONDA Gabapentin (Gabapentin 100 Mg Capsule) 100 mg PO TID [facility] Last Admin: 06/08/23 20:52 Dose: 100 mg Documented By: TIFFANIE Glucose (Glucose Gel 15 Gm Gel..Gram.) 15 gm PO Q15M PRN; Protocol PRN Reason: per Hypoglycemia Standing Ord. Metronidazole (Flagyl) 500 mg in 100 mls @ 100 mls/hr IV Q8H [facility] Last Infusion: 06/09/23 04:24 Dose: Infused Documented By: TIFFANIE Levofloxacin (Levaquin) 750 mg in 150 mls @ 100 mls/hr IV Q24H [facility] Last Infusion: 06/08/23 15:08 Dose: Infused Documented By: RHONDA Iron Sucrose 200 mg/ Sodium (Chloride) 110 mls @ 440 mls/hr IV DAILY [facility] Stop: 06/10/23 11:14 Last Infusion: 06/08/23 09:44 Dose: Infused Documented By: RHONDA Insulin Glargine (Insulin Glargine,Hum.Rec.Anlog 100 Unit/Ml 10 Ml Vial) 10 unit SUBCUT BEDTIME [facility] Last Admin: 06/04/23 21:17 Dose: 10 unit Documented By: LO Insulin Human Lispro (Insulin Lispro 100 Unit/Ml 3 Ml Vial) 0 unit SUBCUT QIDACHS [facility]; Protocol Last Admin: 06/08/23 20:41 Dose: Not Given Documented By: TIFFANIE Non-Admin Reason: NPO Levothyroxine Sodium (Levothyroxine Sodium 75 Mcg Tablet) 75 mcg PO DAILY@0600 [facility] Last Admin: 06/09/23 05:45 Dose: 75 mcg Documented By: TIFFANIE Lidocaine (Lidocaine 4 % Patch Adh..Patch) 2 patch TRANSDERMA DAILY [facility]; Protocol Last Admin: 06/08/23 09:22 Dose: 2 patch Documented By: RHONDA Lisinopril (Lisinopril 10 Mg Tablet) 10 mg PO DAILY [facility]; Protocol Loperamide HCl (Loperamide Hcl 2 Mg Capsule) 4 mg PO Q6H PRN PRN Reason: Diarrhea Last Admin: 06/05/23 11:02 Dose: 4 mg Documented By: MICH Melatonin (Melatonin 3 Mg Tablet) 3 mg PO BEDTIME PRN PRN Reason: Insomnia Last Admin: 06/08/23 20:52 Dose: 3 mg Documented By: TIFFANIE Morphine Sulfate (Morphine Sulfate 2 Mg/Ml Cartridge) 2 mg IVPUSH Q4H PRN; Protocol PRN Reason: Pain, Moderate(Pain Scale 4-6) Last Admin: 06/06/23 21:14 Dose: 2 mg Documented By: GEOFF Comments: pt reports having abdominal pain Ondansetron HCl (Ondansetron Hcl 4 Mg/2 Ml Vial) 4 mg IVPUSH Q6H PRN PRN Reason: Nausea and Vomiting Last Admin: 06/06/23 21:15 Dose: 4 mg Documented By: GEOFF Comments: pt reports feeling intermittent nausea Oxycodone HCl (Oxycodone Hcl Immed Release 5 Mg Tablet) 5 mg PO Q4H PRN PRN Reason: Pain, Severe (Pain Scale 7-10) Last Admin: 06/09/23 03:20 Dose: 5 mg Documented By: TIFFANIE Pentoxifylline (Pentoxifylline Er 400 Mg Tablet.Er) 400 mg PO TID [facility] Last Admin: 06/07/23 10:11 Dose: Not Given Documented By: MAYCOL Non-Admin Reason: held Simethicone (Simethicone 80 Mg Tab.Chew) 80 mg PO QIDWMHS [facility] Last Admin: 06/08/23 20:52 Dose: 80 mg Documented By: TIFFANIE Simethicone (Simethicone 80 Mg Tab.Chew) 80 mg PO QIDWMHS PRN PRN Reason: gas Venlafaxine HCl (Venlafaxine Hcl Er 150 Mg Cap.Er.24h) 150 mg PO DAILY [facility] Last Admin: 06/08/23 09:22 Dose: 150 mg Documented By: NARESHSCEL Labs 06/09/23 07:17 06/09/23 07:17 Labs: Laboratory Results - last 24 hr 06/08/23 06/08/23 06/08/23 08:28 10:42 12:45 Anion Gap 16 Estim Creat Clear Calc 88.3 Estimated GFR > 60 POC Glucose 199 H 176 H Random Glucose 207 H Calcium 7.6 L 06/08/23 06/08/23 06/09/23 16:08 20:30 07:10 Anion Gap Estim Creat Clear Calc Estimated GFR POC Glucose 181 H 156 H 194 H Random Glucose Calcium 06/09/23 07:17 Anion Gap 17 Estim Creat Clear Calc 89.7 Estimated GFR > 60 POC Glucose Random Glucose 221 H Calcium 7.9 L Procedures Date of Service Date of Service: 06/09/23 Progress Note: A&P Assessment and plan (1) Ischemic colitis: Status: Acute Assessment and Plan: Has had no further bleeding for over 48 hours Abdomen soft benign, some mild tenderness on the left side Okay to start on clear liquids Hemoglobin stable Looks well overall Family at bedside Time Spent With Patient Time: Total time managing care of this patient today ____ minutes. Quality Stroke Does the patient have a stroke diagnosis?: No VTE Prior VTE?: No VTE Risk Level:: Surgical - very high VTE Device Contraindication: N/A - Device Ordered VTE Drug Contraindication: N/A - Med Ordered
--- NOTE | 2023-06-09 09:22 | P.PNIM_ITS ---
Subjective Subjective Date of Service: 06/09/23 Interval History: seen and examined this morning follow up for GI bleeding, no bleeding today H/H continues to trend up having bloating and abdominal pain Review of Systems Review of Systems: Yes all other systems are reviewed and are negative Constitutional Constitutional: Denies chills and Denies fever(s) ENT Ears, Nose, Mouth, and Throat: Denies dizziness Cardiovascular Cardiovascular: Denies chest pain and Denies dyspnea Respiratory Respiratory: Denies dyspnea Gastrointestinal Gastrointestinal: Reports abdominal pain Neurologic Neurologic: Denies dizziness Physical Exam 2 Vital Signs: Vital Signs: Last Vital Signs Temp 98.6 F 06/09/23 07:24 Pulse 104 H 06/09/23 07:24 Resp 20 06/09/23 07:24 BP 190/84 H 06/09/23 07:24 Pulse Ox 99 06/09/23 07:24 O2 Del Method Room Air 06/09/23 07:24 O2 Flow Rate 96 06/06/23 06:26 FiO2 93 05/29/23 19:00 Oxygen Flow Rate 3 05/29/23 04:00 BMI result Body Mass Index 37.7 Appearing in no acute distress lung sounds are clear to auscultation heart regular rate rhythm, clear S1, S2 positive bowel sounds, abdomen is soft, tender on palpation neuro patient is alert x3, no focal deficits Objective Data Active Medications Albuterol Sulfate (Albuterol Sulfate 90 Mcg 8 Gm Inhaler) 2 puff INHALE RQ4H PRN PRN Reason: Wheezing Clonidine HCl (Clonidine Hcl 0.2 Mg Tablet) 0.2 mg PO BEDTIME [facility]; Protocol Last Admin: 06/04/23 21:17 Dose: 0.2 mg Documented By: LO Cyanocobalamin (Cyanocobalamin (Vitamin B-12) 100 Mcg Tablet) 100 mcg PO DAILY [facility] Last Admin: 06/09/23 08:58 Dose: 100 mcg Documented By: RHONDA Dextrose (Dextrose 50 % 25 Gm/50 Ml Syringe) 25 gm IVPUSH Q15M PRN; Protocol PRN Reason: per Hypoglycemia Standing Ord. Folic Acid (Folic Acid 1 Mg Tablet) 1 mg PO DAILY [facility] Last Admin: 06/09/23 08:58 Dose: 1 mg Documented By: RHONDA Gabapentin (Gabapentin 100 Mg Capsule) 100 mg PO TID [facility] Last Admin: 06/09/23 08:58 Dose: 100 mg Documented By: RHONDA Glucose (Glucose Gel 15 Gm Gel..Gram.) 15 gm PO Q15M PRN; Protocol PRN Reason: per Hypoglycemia Standing Ord. Metronidazole (Flagyl) 500 mg in 100 mls @ 100 mls/hr IV Q8H [facility] Last Infusion: 06/09/23 04:24 Dose: Infused Documented By: TIFFANIE Levofloxacin (Levaquin) 750 mg in 150 mls @ 100 mls/hr IV Q24H [facility] Last Infusion: 06/08/23 15:08 Dose: Infused Documented By: RHONDA Iron Sucrose 200 mg/ Sodium (Chloride) 110 mls @ 440 mls/hr IV DAILY [facility] Stop: 06/10/23 11:14 Last Infusion: 06/09/23 09:18 Dose: Infused Documented By: RHONDA Insulin Glargine (Insulin Glargine,Hum.Rec.Anlog 100 Unit/Ml 10 Ml Vial) 10 unit SUBCUT BEDTIME [facility] Last Admin: 06/04/23 21:17 Dose: 10 unit Documented By: LO Insulin Human Lispro (Insulin Lispro 100 Unit/Ml 3 Ml Vial) 0 unit SUBCUT QIDACHS [facility]; Protocol Last Admin: 06/09/23 08:57 Dose: 2 unit Documented By: RHONDA Levothyroxine Sodium (Levothyroxine Sodium 75 Mcg Tablet) 75 mcg PO DAILY@0600 [facility] Last Admin: 06/09/23 05:45 Dose: 75 mcg Documented By: TIFFANIE Lidocaine (Lidocaine 4 % Patch Adh..Patch) 2 patch TRANSDERMA DAILY [facility]; Protocol Last Admin: 06/09/23 08:57 Dose: 2 patch Documented By: RHONDA Lisinopril (Lisinopril 10 Mg Tablet) 10 mg PO DAILY [facility]; Protocol Last Admin: 06/09/23 08:58 Dose: 10 mg Documented By: RHONDA Loperamide HCl (Loperamide Hcl 2 Mg Capsule) 4 mg PO Q6H PRN PRN Reason: Diarrhea Last Admin: 06/05/23 11:02 Dose: 4 mg Documented By: MICH Melatonin (Melatonin 3 Mg Tablet) 3 mg PO BEDTIME PRN PRN Reason: Insomnia Last Admin: 06/08/23 20:52 Dose: 3 mg Documented By: TIFFANIE Morphine Sulfate (Morphine Sulfate 2 Mg/Ml Cartridge) 2 mg IVPUSH Q4H PRN; Protocol PRN Reason: Pain, Moderate(Pain Scale 4-6) Last Admin: 06/06/23 21:14 Dose: 2 mg Documented By: GEOFF Comments: pt reports having abdominal pain Ondansetron HCl (Ondansetron Hcl 4 Mg/2 Ml Vial) 4 mg IVPUSH Q6H PRN PRN Reason: Nausea and Vomiting Last Admin: 06/06/23 21:15 Dose: 4 mg Documented By: GEOFF Comments: pt reports feeling intermittent nausea Oxycodone HCl (Oxycodone Hcl Immed Release 5 Mg Tablet) 5 mg PO Q4H PRN PRN Reason: Pain, Severe (Pain Scale 7-10) Last Admin: 06/09/23 08:58 Dose: 5 mg Documented By: RHONDA Pentoxifylline (Pentoxifylline Er 400 Mg Tablet.Er) 400 mg PO TID [facility] Last Admin: 06/07/23 10:11 Dose: Not Given Documented By: MAYCOL Non-Admin Reason: held Simethicone (Simethicone 80 Mg Tab.Chew) 80 mg PO QIDWMHS [facility] Last Admin: 06/09/23 08:58 Dose: 80 mg Documented By: RHONDA Simethicone (Simethicone 80 Mg Tab.Chew) 80 mg PO QIDWMHS PRN PRN Reason: gas Venlafaxine HCl (Venlafaxine Hcl Er 150 Mg Cap.Er.24h) 150 mg PO DAILY [facility] Last Admin: 06/09/23 08:59 Dose: 150 mg Documented By: RHONDA Labs 06/09/23 07:17 06/09/23 07:17 Labs: Laboratory Results - last 24 hr 06/08/23 06/08/23 06/08/23 10:42 12:45 16:08 Anion Gap Estim Creat Clear Calc Estimated GFR POC Glucose 199 H 176 H 181 H Random Glucose Calcium 06/08/23 06/09/23 06/09/23 20:30 07:10 07:17 Anion Gap 17 Estim Creat Clear Calc 89.7 Estimated GFR > 60 POC Glucose 156 H 194 H Random Glucose 221 H Calcium 7.9 L Assessment and Plan (1) Acute blood loss anemia: Status: Acute (2) Ischemic colitis: Status: Acute (3) Status post knee replacement: Status: Acute (4) Pulmonary embolism: Status: Acute (5) Urinary retention: Status: Acute Plan 68 year old female with history of htn, asthma/copd overlap, type 2 diabetes, hld, gerd, who presented on 05/25 for elective Left TKA. She subsequently developed hypotention requiring ICU level of care [id number] and was diagnosed to have b/l segmental PE; hospital course further complicated by probable ischemic colitis and now with rectal bleeding/ acute blood loss anemia Abdominal pain/gassiness/bloating, unspecified diet advanced to clear no n,v,d KUB> gaseous distension of the large bowel, seen by General surgery, patient having bowel movements and passing flatus, no need for intervention at this time Simethicone prn Urinary retention (likely secondary to anesthesia/opiates) voiding trial start Flomax 0.4mg daily bladder scan Qshift st cath prn hypokalemia likely due to decreased po intake replace BID and follow Rectal bleeding/acute blood loss anemia likely due to ischemic colitis from hypotension AC on hold for now, discussed with GI 06/07, possible restart in one week seen by hematology, as unable to receive blood products ([facility]), will treat with 4 doses of IV iron, s/p one dose of procrit CTA abdomen/pelvis 06/06 with no extravasation to suggest site of GI bleeding surgery following, discussed with anesthesia - at high risk for surgery given acute bilateral PE. But if deteriorates, left colectomy may become necessary HH today 8.3.7 Ischemic Colitis seen by GI, underwent sigmoidoscopy 06/03 - c/w with healing ischemic colitis continue IV Levaquin/Flagyl trental on hold avoid low blood pressure general surgery following Pulmonary embolus CTA 05/28 with bilateral nonocclusive segmental pulmonary emboli (Filling defect identified within the right upper, right middle, right lower, left upper, and left lower pulmonary arterial branches) no respiratory symptoms, continues to remain on room air echo with no evidence of right heart strain therapeutic lovenox on hold due to rectal bleeding as above Left lower extremity ultrasound negative for DVT s/p IVC filter 06/07 OA s/p L TKA 05/25 plan per ortho surgery PT Type 2 diabetes lantus on hold as NPO Continue SSI, follow POCs HTN BP meds placed on hold to prevent hypotension in the setting of active GI bleed (lisinopril, clonidine, metoprolol) lasix, HCTZ on hold verapamil d/c in ICU due to hypotension Hypothyroidism continue synthroid mood continue effexor obesity BMI 37.7 weight loss encouraged Attending Dr. Heard SCD boots Requires ongoing hospitalization secondary to the need for IV antibiotics to treat colitis and close monitoring of anemia Quality Stroke Does the patient have a stroke diagnosis?: No VTE Prior VTE?: No VTE Risk Level:: Surgical - very high VTE Device Contraindication: N/A - Device Ordered VTE Drug Contraindication: N/A - Med Ordered
--- NOTE | 2023-06-09 10:06 | HO.VASCPN ---
Subjective Subjective Date of Service: 06/09/23 Patient reports: no new complaints Interval history: Patient seen and examined. Postop day 1 status post IVC filter placement. No acute issues overnight. Doing relatively well. Physical Exam Vital Signs: Vital Signs: Last Vital Signs Temp 98.6 F 06/09/23 07:24 Pulse 104 H 06/09/23 07:24 Resp 20 06/09/23 07:24 BP 190/84 H 06/09/23 07:24 Pulse Ox 99 06/09/23 07:24 O2 Del Method Room Air 06/09/23 07:24 O2 Flow Rate 96 06/06/23 06:26 FiO2 93 05/29/23 19:00 Oxygen Flow Rate 3 05/29/23 04:00 BMI result Body Mass Index 37.7 Const: General: cooperative, healthy appearing and no acute distress Orientation/consciousness: oriented to person, oriented to place and oriented to time HEENT: Head: Yes normal to inspection Neck: Carotids: no bruits Chest: Chest palpation & inspection: normal inspection of the chest Resp: Effort & Inspection: normal respiratory effort and able to speak in complete sentences Auscultation: clear to auscultation bilaterally Cardio: Rate: regular rate Heart sounds: S1 normal heart sound present and S2 normal heart sound present GI: Inspection: Yes normal to inspection Skin: Other: Right groin no issues General skin exam: no rashes or lesions noted Wounds: no wounds Neuro: General: oriented to person, oriented to place, oriented to time and CN's II-XI intact bilaterally Extrem: General: Yes normal to inspection, Yes full ROM and Yes no clubbing, cyanosis or edema Psych: Appearance: grossly normal and well kempt Speech and movement: Normal speech and movement present Affect: normal affect Progress Note: A&P Assessment and plan (1) Pulmonary embolism: Status: Acute Assessment and Plan: In short patient has done well status post IVC filter placement. No interval issues. Can see us on an as-needed basis. No need for follow-up with us. Thank you for allowing us to assist in her care. Time Spent With Patient Time: Total time managing care of this patient today ____ minutes. Procedures Date of Service Date of Service: 06/09/23 Quality Stroke Does the patient have a stroke diagnosis?: No VTE Prior VTE?: No VTE Risk Level:: Surgical - very high VTE Device Contraindication: N/A - Device Ordered VTE Drug Contraindication: N/A - Med Ordered
[2023-06-09] MEDS: Morphine Sulfate 2 MG/ML CARTRIDGE IVPUSH (10:33)
[2023-06-09] MEDS: Tamsulosin HCL 0.4 MG CAPSULE PO (10:33)
[2023-06-09] MEDS: ondansetron HCL 4 MG/2 ML VIAL IVPUSH (10:33)
--- NOTE | 2023-06-09 10:54 | MHC.CLN ---
F/U PT IS DAY 8 WITH POOR PO INTAKE DIET ADVANCED TO CLEARS TODAY RECOMMEND ADDING ENSURE CLEAR TID TO INCREASE KCALS SUPPLEMENT TO PROVIDE 720KCALS, 24G PROTEIN WITH 100% ACCEPTANCE MONITOR PO INTAKE CLOSELY AND ENCOURAGE SUPPLEMENTS IF PO REMAINS POOR TODAY; RECOMMEND PPN AT 35ML/HR TO PROVIDE 428KCALS, 84G DEXTROSE, 36G PROTEIN TO START 06/10/23 REPLETE LYTES NEEDED
[2023-06-09 11:10] LABS: Glucose, Whole Blood 271 mg/dL (60-115)
[2023-06-09] MEDS: levoFLOXacin/D5W 750 MG/150 ML PIGGYBACK 100 MG IV (12:12)
[2023-06-09 12:26] VITALS: BP 138/69; PULSE 114; RESP 22; TEMP 36.5; O2SAT 94
[2023-06-09 16:05] LABS: Glucose, Whole Blood 301 mg/dL (60-115)
--- NOTE | 2023-06-09 17:46 | PC.NURSE ---
Ramos removed at 11:00 am for a voiding trial. Pt due to void at 1700. Pure[address] in [address] for pt to void. Pt complaining of abdominal discomfort around 1400. Pt bladder scanned for over 700ml. This RN assisted pt to bedside commode to try to urinate and pt was unsuccessful. Pt then straight cath at this time. Post void scan for alittle over 100ml. Around 1700 pt complaing of abdominal discomfort again; pt bladder scanned again at this time, pt bladder scanned for over 500ml. Pt straight cath again at 1700.
[2023-06-09 19:51] LABS: Glucose, Whole Blood 244 mg/dL (60-115)
[2023-06-09] MEDS: Potassium Chloride ER 20 MEQ TAB.ER.PRT PO (20:44)
[2023-06-09 23:27] VITALS: BP 176/77; PULSE 112; RESP 18; TEMP 36.2; O2SAT 93
[2023-06-10] VITALS (7 sets, daily range): BP systolic 129–150; BP diastolic 58–68; PULSE 87–146; RESP 16–20; TEMP 36.2–36.8; O2SAT 92–99
[2023-06-10] MEDS: oxyCODONE HCl Immed Release 5 MG TABLET PO ×4 (00:54→19:48)
[2023-06-10] MEDS: metroNIDAZOLE/NS 500 MG/100 ML PIGGYBACK 100 MG IV ×3 (04:59→19:46)
[2023-06-10] MEDS: Levothyroxine Sodium 75 MCG TABLET PO (05:00)
[2023-06-10 06:58] LABS: Anion Gap 11 (12-20); Blood Urea Nitrogen 3 mg/dL (9-16); Calcium 7.6 mg/dL (8.4-10.2); Carbon Dioxide 24 mmol/L (22-29); Chloride 105 mmol/L (96-108); Creatinine Clr Calc Pharmacy 78.5; Estimated Glomerular Filt Rate > 60; Glucose Random 314 mg/dL (60-115); Potassium 3.2 mmol/L (3.3-5.1); Sodium 137 mmol/L (135-145)
[2023-06-10 07:29] LABS: Glucose, Whole Blood 263 mg/dL (60-115)
[2023-06-10] MEDS: Potassium Chloride ER 20 MEQ TAB.ER.PRT PO ×2 (08:05→20:44)
[2023-06-10] MEDS: lisinopriL 10 MG TABLET PO (08:05)
[2023-06-10] MEDS: Venlafaxine HCl ER 150 MG CAP.ER.24H PO (08:05)
[2023-06-10] MEDS: Simethicone 80 MG TAB.CHEW PO ×2 (08:05→20:44)
[2023-06-10] MEDS: Insulin Lispro 100 UNIT/ML 3 ML VIAL SUBCUT ×4 (08:06→22:28)
[2023-06-10] MEDS: Tamsulosin HCL 0.4 MG CAPSULE PO (08:06)
[2023-06-10] MEDS: Cyanocobalamin (Vitamin B-12) 100 MCG TABLET PO (08:06)
[2023-06-10] MEDS: Gabapentin 100 MG CAPSULE PO ×3 (08:06→20:44)
[2023-06-10] MEDS: Folic Acid 1 MG TABLET PO (08:06)
[2023-06-10] MEDS: Lidocaine 4 % Patch ADH..PATCH 2 PATCH TRANSDERMA (08:07)
[2023-06-10] MEDS: Iron Sucrose Complex 200 MG in 0.9 % Sodium Chloride 100 ML 440 MG IV (08:08)
[2023-06-10] MEDS: Morphine Sulfate 2 MG/ML CARTRIDGE IVPUSH (08:14)
[2023-06-10] MEDS: Loperamide HCl 2 MG CAPSULE 4 MG PO (08:23)
[2023-06-10 09:46] LABS: Hematocrit 25.9 % (37.0-47.0); Hemoglobin 8.5 g/dl (12.0-16.0)
--- NOTE | 2023-06-10 10:23 | MHC.CM.PN ---
Per ROUNDS discussion, Patient is not yet medically cleared for dc (advancing diet); PT recommends STR and CM will continue to follow.
--- NOTE | 2023-06-10 10:44 | P.PNIM_ITS ---
Subjective Subjective Date of Service: 06/10/23 Interval History: seen and examined this morning follow up for GI bleeding, no bleeding today H/H continues to trend up abd pain and bloating is better Review of Systems Review of Systems: Yes all other systems are reviewed and are negative Constitutional Constitutional: Denies chills and Denies fever(s) ENT Ears, Nose, Mouth, and Throat: Denies dizziness Cardiovascular Cardiovascular: Denies chest pain and Denies dyspnea Respiratory Respiratory: Denies dyspnea Gastrointestinal Gastrointestinal: Reports abdominal pain Neurologic Neurologic: Denies dizziness Physical Exam 2 Vital Signs: Vital Signs: Last Vital Signs Temp 97.6 F 06/10/23 07:14 Pulse 87 06/10/23 07:14 Resp 18 06/10/23 07:14 BP 145/67 H 06/10/23 07:14 Pulse Ox 94 06/10/23 07:14 O2 Del Method Room Air 06/10/23 07:14 O2 Flow Rate 96 06/06/23 06:26 FiO2 93 05/29/23 19:00 Oxygen Flow Rate 3 05/29/23 04:00 BMI result Body Mass Index 37.7 Appearing in no acute distress lung sounds are clear to auscultation heart regular rate rhythm, clear S1, S2 positive bowel sounds, abdomen is soft, nontender neuro patient is alert x3, no focal deficits Objective Data Active Medications Albuterol Sulfate (Albuterol Sulfate 90 Mcg 8 Gm Inhaler) 2 puff INHALE RQ4H PRN PRN Reason: Wheezing Clonidine HCl (Clonidine Hcl 0.2 Mg Tablet) 0.2 mg PO BEDTIME [facility]; Protocol Last Admin: 06/04/23 21:17 Dose: 0.2 mg Documented By: LO Cyanocobalamin (Cyanocobalamin (Vitamin B-12) 100 Mcg Tablet) 100 mcg PO DAILY [facility] Last Admin: 06/10/23 08:06 Dose: 100 mcg Documented By: CATHI Dextrose (Dextrose 50 % 25 Gm/50 Ml Syringe) 25 gm IVPUSH Q15M PRN; Protocol PRN Reason: per Hypoglycemia Standing Ord. Folic Acid (Folic Acid 1 Mg Tablet) 1 mg PO DAILY [facility] Last Admin: 06/10/23 08:06 Dose: 1 mg Documented By: CATHI Gabapentin (Gabapentin 100 Mg Capsule) 100 mg PO TID [facility] Last Admin: 06/10/23 08:06 Dose: 100 mg Documented By: CATHI Glucose (Glucose Gel 15 Gm Gel..Gram.) 15 gm PO Q15M PRN; Protocol PRN Reason: per Hypoglycemia Standing Ord. Metronidazole (Flagyl) 500 mg in 100 mls @ 100 mls/hr IV Q8H [facility] Last Infusion: 06/10/23 05:59 Dose: Infused Documented By: MELA Levofloxacin (Levaquin) 750 mg in 150 mls @ 100 mls/hr IV Q24H [facility] Last Infusion: 06/09/23 14:18 Dose: Infused Documented By: RHONDA Iron Sucrose 200 mg/ Sodium (Chloride) 110 mls @ 440 mls/hr IV DAILY [facility] Stop: 06/10/23 11:14 Last Infusion: 06/10/23 08:32 Dose: Infused Documented By: CATHI Insulin Glargine (Insulin Glargine,Hum.Rec.Anlog 100 Unit/Ml 10 Ml Vial) 10 unit SUBCUT BEDTIME [facility] Last Admin: 06/04/23 21:17 Dose: 10 unit Documented By: LO Insulin Human Lispro (Insulin Lispro 100 Unit/Ml 3 Ml Vial) 0 unit SUBCUT QIDACHS [facility]; Protocol Last Admin: 06/10/23 08:06 Dose: 6 unit Documented By: CATHI Levothyroxine Sodium (Levothyroxine Sodium 75 Mcg Tablet) 75 mcg PO DAILY@0600 [facility] Last Admin: 06/10/23 05:00 Dose: 75 mcg Documented By: MELA Lidocaine (Lidocaine 4 % Patch Adh..Patch) 2 patch TRANSDERMA DAILY [facility]; Protocol Last Admin: 06/10/23 08:07 Dose: 2 patch Documented By: CATHI Lisinopril (Lisinopril 10 Mg Tablet) 10 mg PO DAILY [facility]; Protocol Last Admin: 06/10/23 08:05 Dose: 10 mg Documented By: CATHI Loperamide HCl (Loperamide Hcl 2 Mg Capsule) 4 mg PO Q6H PRN PRN Reason: Diarrhea Last Admin: 06/10/23 08:23 Dose: 4 mg Documented By: CATHI Melatonin (Melatonin 3 Mg Tablet) 3 mg PO BEDTIME PRN PRN Reason: Insomnia Last Admin: 06/08/23 20:52 Dose: 3 mg Documented By: TIFFANIE Morphine Sulfate (Morphine Sulfate 2 Mg/Ml Cartridge) 2 mg IVPUSH Q4H PRN; Protocol PRN Reason: Pain, Moderate(Pain Scale 4-6) Last Admin: 06/10/23 08:14 Dose: 2 mg Documented By: CATHI Ondansetron HCl (Ondansetron Hcl 4 Mg/2 Ml Vial) 4 mg IVPUSH Q6H PRN PRN Reason: Nausea and Vomiting Last Admin: 06/09/23 10:33 Dose: 4 mg Documented By: RHONDA Oxycodone HCl (Oxycodone Hcl Immed Release 5 Mg Tablet) 5 mg PO Q4H PRN PRN Reason: Pain, Severe (Pain Scale 7-10) Last Admin: 06/10/23 05:00 Dose: 5 mg Documented By: MELA Pentoxifylline (Pentoxifylline Er 400 Mg Tablet.Er) 400 mg PO TID [facility] Last Admin: 06/07/23 10:11 Dose: Not Given Documented By: MAYCOL Non-Admin Reason: held Potassium Chloride (Potassium Chloride Er 20 Meq Tab.Er.Prt) 20 meq PO BID [facility] Last Admin: 06/10/23 08:05 Dose: 20 meq Documented By: CATHI Simethicone (Simethicone 80 Mg Tab.Chew) 80 mg PO QIDWMHS PRN PRN Reason: gas Simethicone (Simethicone 80 Mg Tab.Chew) 80 mg PO BID [facility] Last Admin: 06/10/23 08:05 Dose: 80 mg Documented By: CATHI Tamsulosin HCl (Tamsulosin Hcl 0.4 Mg Capsule) 0.4 mg PO DAILY [facility] Last Admin: 06/10/23 08:06 Dose: 0.4 mg Documented By: CATHI Venlafaxine HCl (Venlafaxine Hcl Er 150 Mg Cap.Er.24h) 150 mg PO DAILY [facility] Last Admin: 06/10/23 08:05 Dose: 150 mg Documented By: CATHI Labs 06/10/23 09:07 06/10/23 06:27 Labs: Laboratory Results - last 24 hr 03/26/24 03/26/24 03/26/24 10:59 15:59 19:45 Anion Gap Estim Creat Clear Calc Estimated GFR POC Glucose 271 H 301 H 244 H Random Glucose Calcium 06/10/23 06/10/23 06:27 07:26 Anion Gap 11 L Estim Creat Clear Calc 78.5 Estimated GFR > 60 POC Glucose 263 H Random Glucose 314 H Calcium 7.6 L Assessment and Plan (1) Acute blood loss anemia: Status: Acute (2) Ischemic colitis: Status: Acute (3) Status post knee replacement: Status: Acute (4) Pulmonary embolism: Status: Acute (5) Urinary retention: Status: Acute Plan 68 year old female with history of htn, asthma/copd overlap, type 2 diabetes, hld, gerd, who presented on 05/25 for elective Left TKA. She subsequently developed hypotention requiring ICU level of care [id number]/[phone] and was diagnosed to have b/l segmental PE; hospital course further complicated by probable ischemic colitis and now with rectal bleeding/ acute blood loss anemia Abdominal pain/gassiness/bloating, unspecified feeling better diet advanced to full today no n,v,d KUB> gaseous distension of the large bowel, seen by General surgery, patient having bowel movements and passing flatus, no need for intervention at this time Simethicone prn encourage oob ambulating and to chair Urinary retention (likely secondary to anesthesia/opiates) failed voiding trial and hylton replaced overnight continue Flomax 0.4mg daily will need urology f/u o/p hypokalemia trending up likely due to decreased po intake replace BID and follow Rectal bleeding/acute blood loss anemia likely due to ischemic colitis from hypotension AC on hold for now, discussed with GI 06/07, possible restart in one week seen by hematology, as unable to receive blood products (Druze), s/p 4 doses of IV iron, one dose of procrit CTA abdomen/pelvis 06/06 with no extravasation to suggest site of GI bleeding surgery following, discussed with anesthesia - at high risk for surgery given acute bilateral PE. But if deteriorates, left colectomy may become necessary HH today 8.5/.9 Ischemic Colitis seen by GI, underwent sigmoidoscopy 06/03 - c/w with healing ischemic colitis continue IV Levaquin/Flagyl trental on hold avoid low blood pressure general surgery following Pulmonary embolus CTA 05/28 with bilateral nonocclusive segmental pulmonary emboli (Filling defect identified within the right upper, right middle, right lower, left upper, and left lower pulmonary arterial branches) no respiratory symptoms, continues to remain on room air echo with no evidence of right heart strain therapeutic lovenox on hold due to rectal bleeding as above Left lower extremity ultrasound negative for DVT s/p IVC filter 06/07 OA s/p L TKA 05/25 plan per ortho surgery PT Type 2 diabetes lantus on hold as NPO Continue SSI, follow POCs HTN trending up lisinopril restarted at 10 mg, bp still high will increase to 20 mg metopolol xl restarted today at lower dose 100 mg daily lasix, HCTZ on hold, may consider restarting as BP allows verapamil d/c in ICU due to hypotension Hypothyroidism continue synthroid mood continue effexor obesity BMI 37.7 weight loss encouraged Attending Dr. Heard SCD boots Requires ongoing hospitalization secondary to the need for IV antibiotics to treat colitis and close monitoring of anemia Quality Stroke Does the patient have a stroke diagnosis?: No VTE Prior VTE?: No VTE Risk Level:: Surgical - very high VTE Device Contraindication: N/A - Device Ordered VTE Drug Contraindication: N/A - Med Ordered
--- NOTE | 2023-06-10 11:41 | MHC.CLN ---
F/U PT IS DAY 9 WITH POOR PO INTAKE PO INTAKE 50% X1 MEAL OF CLEAR LIQUIDS RECORDED DIET ADVANCED TO FULL LIQUID TODAY RECOMMEND ADDING ENSURE TID TO INCREASE KCALS SUPPLEMENT TO PROVIDE 1050KCALS, 60G PROTEIN WITH 100% ACCEPTANCE MONITOR PO INTAKE CLOSELY AND ENCOURAGE SUPPLEMENTS
[2023-06-10] MEDS: levoFLOXacin/D5W 750 MG/150 ML PIGGYBACK 100 MG IV (11:43)
[2023-06-10 11:44] LABS: Glucose, Whole Blood 337 mg/dL (60-115)
--- NOTE | 2023-06-10 12:31 | PM.PNGS ---
Subjective Subjective Date of Service: 06/11/23 Interval history: Some gassy abdominal pain Overall feels better Passing flatus and BMs No bleeding Physical Exam Vital Signs: Vital Signs: Last Vital Signs Temp 97.6 F 06/10/23 07:14 Pulse 146 H 06/10/23 11:58 Resp 18 06/10/23 07:14 BP 145/67 H 06/10/23 07:14 Pulse Ox 99 06/10/23 11:58 O2 Del Method Room Air 06/10/23 07:14 O2 Flow Rate 96 06/06/23 06:26 FiO2 93 05/29/23 19:00 Oxygen Flow Rate 3 05/29/23 04:00 BMI result Body Mass Index 37.7 Const: General: comfortable and no acute distress Resp: Effort & Inspection: normal respiratory effort GI: Palpation (GI): Soft to palpation, not firm, Tenderness to palpation present (GI) (Mild tenderness diffusely) and no guarding Objective Data Active Medications Albuterol Sulfate (Albuterol Sulfate 90 Mcg 8 Gm Inhaler) 2 puff INHALE RQ4H PRN PRN Reason: Wheezing Clonidine HCl (Clonidine Hcl 0.2 Mg Tablet) 0.2 mg PO BEDTIME [facility]; Protocol Last Admin: 06/04/23 21:17 Dose: 0.2 mg Documented By: LO Cyanocobalamin (Cyanocobalamin (Vitamin B-12) 100 Mcg Tablet) 100 mcg PO DAILY [facility] Last Admin: 06/10/23 08:06 Dose: 100 mcg Documented By: CATHI Dextrose (Dextrose 50 % 25 Gm/50 Ml Syringe) 25 gm IVPUSH Q15M PRN; Protocol PRN Reason: per Hypoglycemia Standing Ord. Folic Acid (Folic Acid 1 Mg Tablet) 1 mg PO DAILY [facility] Last Admin: 06/10/23 08:06 Dose: 1 mg Documented By: CATHI Gabapentin (Gabapentin 100 Mg Capsule) 100 mg PO TID [facility] Last Admin: 06/10/23 08:06 Dose: 100 mg Documented By: CATHI Glucose (Glucose Gel 15 Gm Gel..Gram.) 15 gm PO Q15M PRN; Protocol PRN Reason: per Hypoglycemia Standing Ord. Metronidazole (Flagyl) 500 mg in 100 mls @ 100 mls/hr IV Q8H [facility] Last Admin: 06/10/23 11:43 Dose: 100 mls/hr Documented By: RHONDA Levofloxacin (Levaquin) 750 mg in 150 mls @ 100 mls/hr IV Q24H [facility] Last Admin: 06/10/23 11:43 Dose: 100 mls/hr Documented By: RHONDA Insulin Glargine (Insulin Glargine,Hum.Rec.Anlog 100 Unit/Ml 10 Ml Vial) 10 unit SUBCUT BEDTIME [facility] Last Admin: 06/04/23 21:17 Dose: 10 unit Documented By: LO Insulin Human Lispro (Insulin Lispro 100 Unit/Ml 3 Ml Vial) 0 unit SUBCUT QIDACHS [facility]; Protocol Last Admin: 06/10/23 11:59 Dose: 8 unit Documented By: RHONDA Levothyroxine Sodium (Levothyroxine Sodium 75 Mcg Tablet) 75 mcg PO DAILY@0600 [facility] Last Admin: 06/10/23 05:00 Dose: 75 mcg Documented By: MELA Lidocaine (Lidocaine 4 % Patch Adh..Patch) 2 patch TRANSDERMA DAILY [facility]; Protocol Last Admin: 06/10/23 08:07 Dose: 2 patch Documented By: CATHI Lisinopril (Lisinopril 20 Mg Tablet) 20 mg PO DAILY [facility]; Protocol Loperamide HCl (Loperamide Hcl 2 Mg Capsule) 4 mg PO Q6H PRN PRN Reason: Diarrhea Last Admin: 06/10/23 08:23 Dose: 4 mg Documented By: CATHI Melatonin (Melatonin 3 Mg Tablet) 3 mg PO BEDTIME PRN PRN Reason: Insomnia Last Admin: 06/08/23 20:52 Dose: 3 mg Documented By: TIFFANIE Metoprolol Succinate (Metoprolol Succinate Er 100 Mg Tab.Er.24h) 100 mg PO DAILY [facility]; Protocol Morphine Sulfate (Morphine Sulfate 2 Mg/Ml Cartridge) 2 mg IVPUSH Q4H PRN; Protocol PRN Reason: Pain, Moderate(Pain Scale 4-6) Last Admin: 06/10/23 08:14 Dose: 2 mg Documented By: CATHI Ondansetron HCl (Ondansetron Hcl 4 Mg/2 Ml Vial) 4 mg IVPUSH Q6H PRN PRN Reason: Nausea and Vomiting Last Admin: 06/09/23 10:33 Dose: 4 mg Documented By: RHONDA Oxycodone HCl (Oxycodone Hcl Immed Release 5 Mg Tablet) 5 mg PO Q4H PRN PRN Reason: Pain, Severe (Pain Scale 7-10) Last Admin: 06/10/23 05:00 Dose: 5 mg Documented By: MELA Pentoxifylline (Pentoxifylline Er 400 Mg Tablet.Er) 400 mg PO TID [facility] Last Admin: 06/07/23 10:11 Dose: Not Given Documented By: MAYCOL Non-Admin Reason: held Potassium Chloride (Potassium Chloride Er 20 Meq Tab.Er.Prt) 20 meq PO BID [facility] Last Admin: 06/10/23 08:05 Dose: 20 meq Documented By: CATHI Simethicone (Simethicone 80 Mg Tab.Chew) 80 mg PO QIDWMHS PRN PRN Reason: gas Simethicone (Simethicone 80 Mg Tab.Chew) 80 mg PO BID [facility] Last Admin: 06/10/23 08:05 Dose: 80 mg Documented By: CATHI Tamsulosin HCl (Tamsulosin Hcl 0.4 Mg Capsule) 0.4 mg PO DAILY [facility] Last Admin: 06/10/23 08:06 Dose: 0.4 mg Documented By: CATHI Venlafaxine HCl (Venlafaxine Hcl Er 150 Mg Cap.Er.24h) 150 mg PO DAILY [facility] Last Admin: 06/10/23 08:05 Dose: 150 mg Documented By: CATHI Labs 06/11/23 06:52 06/11/23 06:52 Labs: Laboratory Results - last 24 hr 06/09/23 06/09/23 06/10/23 15:59 19:45 06:27 Anion Gap 11 L Estim Creat Clear Calc 78.5 Estimated GFR > 60 POC Glucose 301 H 244 H Random Glucose 314 H Calcium 7.6 L 06/10/23 06/10/23 07:26 11:40 Anion Gap Estim Creat Clear Calc Estimated GFR POC Glucose 263 H 337 H Random Glucose Calcium Procedures Date of Service Date of Service: 06/11/23 Progress Note: A&P Assessment and plan (1) Ischemic colitis: Status: Acute Assessment and Plan: No further bleeding Hemoglobin steady Tolerating clear liquids Okay to slowly try full liquids Out of bed and increase activity - she had her placement almost 2 weeks ago now Exam remains benign Time Spent With Patient Time: Total time managing care of this patient today ____ minutes. Quality Stroke Does the patient have a stroke diagnosis?: No VTE Prior VTE?: No VTE Risk Level:: Surgical - very high VTE Device Contraindication: N/A - Device Ordered VTE Drug Contraindication: N/A - Med Ordered
[2023-06-10] MEDS: Metoprolol Succinate ER 100 MG TAB.ER.24H PO (12:54)
[2023-06-10 16:17] LABS: Glucose, Whole Blood 307 mg/dL (60-115)
[2023-06-10 22:14] LABS: Glucose, Whole Blood 229 mg/dL (60-115)
[2023-06-11] MEDS: oxyCODONE HCl Immed Release 5 MG TABLET PO ×5 (00:03→22:51)
[2023-06-11] MEDS: metroNIDAZOLE/NS 500 MG/100 ML PIGGYBACK 100 MG IV ×2 (04:04→11:48)
[2023-06-11] MEDS: Levothyroxine Sodium 75 MCG TABLET PO (05:10)
[2023-06-11 06:24] VITALS: BP 121/60; PULSE 92; RESP 18; TEMP 36.1; O2SAT 94
[2023-06-11 07:10] VITALS: BP 131/62; PULSE 91; RESP 18; TEMP 35.8; O2SAT 94
[2023-06-11 07:26] LABS: Potassium 2.9 mmol/L (3.3-5.1)
[2023-06-11 07:45] LABS: Glucose, Whole Blood 273 mg/dL (60-115)
[2023-06-11] MEDS: Potassium Chloride/H20 10 MEQ/100 ML PIGGYBACK 100 MEQ IV ×2 (08:00→09:48)
[2023-06-11] MEDS: Metoprolol Succinate ER 100 MG TAB.ER.24H PO (08:04)
[2023-06-11] MEDS: Tamsulosin HCL 0.4 MG CAPSULE PO (08:04)
[2023-06-11] MEDS: Venlafaxine HCl ER 150 MG CAP.ER.24H PO (08:04)
[2023-06-11] MEDS: Gabapentin 100 MG CAPSULE PO ×3 (08:05→19:59)
[2023-06-11] MEDS: Potassium Chloride ER 20 MEQ TAB.ER.PRT 40 MEQ PO ×2 (08:05→19:58)
[2023-06-11] MEDS: Cyanocobalamin (Vitamin B-12) 100 MCG TABLET PO (08:05)
[2023-06-11] MEDS: lisinopriL 20 MG TABLET PO (08:05)
[2023-06-11] MEDS: Insulin Lispro 100 UNIT/ML 3 ML VIAL SUBCUT ×4 (08:05→19:59)
[2023-06-11] MEDS: Folic Acid 1 MG TABLET PO (08:05)
[2023-06-11] MEDS: Simethicone 80 MG TAB.CHEW PO ×2 (08:06→19:59)
[2023-06-11] MEDS: Lidocaine 4 % Patch ADH..PATCH 2 PATCH TRANSDERMA (08:07)
--- NOTE | 2023-06-11 08:36 | P.PNGS_ITS ---
Subjective Subjective Date of Service: 06/11/23 Interval history: says she is hungry no further bleeding passing flatus abdl pain better Physical Exam 2 Vital Signs: Vital Signs: Last Vital Signs Temp 96.5 F L 06/11/23 07:10 Pulse 91 06/11/23 07:10 Resp 18 06/11/23 07:10 BP 131/62 06/11/23 07:10 Pulse Ox 94 06/11/23 07:10 O2 Del Method Room Air 06/11/23 07:10 O2 Flow Rate 96 06/06/23 06:26 FiO2 93 05/29/23 19:00 Oxygen Flow Rate 3 05/29/23 04:00 BMI result Body Mass Index 37.7 Const: General: comfortable and no acute distress Resp: Effort & Inspection: normal respiratory effort Cardio: Rate: regular rate GI: Palpation (GI): Soft to palpation and not firm Objective Data Active Medications Albuterol Sulfate (Albuterol Sulfate 90 Mcg 8 Gm Inhaler) 2 puff INHALE RQ4H PRN PRN Reason: Wheezing Clonidine HCl (Clonidine Hcl 0.2 Mg Tablet) 0.2 mg PO BEDTIME [facility]; Protocol Last Admin: 06/04/23 21:17 Dose: 0.2 mg Documented By: LO Cyanocobalamin (Cyanocobalamin (Vitamin B-12) 100 Mcg Tablet) 100 mcg PO DAILY [facility] Last Admin: 06/11/23 08:05 Dose: 100 mcg Documented By: REBEKA Dextrose (Dextrose 50 % 25 Gm/50 Ml Syringe) 25 gm IVPUSH Q15M PRN; Protocol PRN Reason: per Hypoglycemia Standing Ord. Folic Acid (Folic Acid 1 Mg Tablet) 1 mg PO DAILY [facility] Last Admin: 06/11/23 08:05 Dose: 1 mg Documented By: REBEKA Gabapentin (Gabapentin 100 Mg Capsule) 100 mg PO TID [facility] Last Admin: 06/11/23 08:05 Dose: 100 mg Documented By: REBEKA Glucose (Glucose Gel 15 Gm Gel..Gram.) 15 gm PO Q15M PRN; Protocol PRN Reason: per Hypoglycemia Standing Ord. Metronidazole (Flagyl) 500 mg in 100 mls @ 100 mls/hr IV Q8H [facility] Last Infusion: 06/11/23 05:04 Dose: Infused Documented By: MELA Levofloxacin (Levaquin) 750 mg in 150 mls @ 100 mls/hr IV Q24H [facility] Last Infusion: 06/10/23 13:50 Dose: Infused Documented By: CATHI Potassium Chloride (Potassium Chloride/H20) 10 meq in 100 mls @ 100 mls/hr IV Q1H [facility] Stop: 06/11/23 09:44 Insulin Glargine (Insulin Glargine,Hum.Rec.Anlog 100 Unit/Ml 10 Ml Vial) 10 unit SUBCUT BEDTIME [facility] Last Admin: 06/04/23 21:17 Dose: 10 unit Documented By: LO Insulin Human Lispro (Insulin Lispro 100 Unit/Ml 3 Ml Vial) 0 unit SUBCUT QIDACHS [facility]; Protocol Last Admin: 06/11/23 08:05 Dose: 1 unit Documented By: REBEKA Levothyroxine Sodium (Levothyroxine Sodium 75 Mcg Tablet) 75 mcg PO DAILY@0600 [facility] Last Admin: 06/11/23 05:10 Dose: 75 mcg Documented By: MELA Lidocaine (Lidocaine 4 % Patch Adh..Patch) 2 patch TRANSDERMA DAILY [facility]; Protocol Last Admin: 06/11/23 08:07 Dose: 2 patch Documented By: REBEKA Lisinopril (Lisinopril 20 Mg Tablet) 20 mg PO DAILY [facility]; Protocol Last Admin: 06/11/23 08:05 Dose: 20 mg Documented By: REBEKA Loperamide HCl (Loperamide Hcl 2 Mg Capsule) 4 mg PO Q6H PRN PRN Reason: Diarrhea Last Admin: 06/10/23 08:23 Dose: 4 mg Documented By: CATHI Melatonin (Melatonin 3 Mg Tablet) 3 mg PO BEDTIME PRN PRN Reason: Insomnia Last Admin: 06/08/23 20:52 Dose: 3 mg Documented By: TIFFANIE Metoprolol Succinate (Metoprolol Succinate Er 100 Mg Tab.Er.24h) 100 mg PO DAILY [facility]; Protocol Last Admin: 06/11/23 08:04 Dose: 100 mg Documented By: REBEKA Ondansetron HCl (Ondansetron Hcl 4 Mg/2 Ml Vial) 4 mg IVPUSH Q6H PRN PRN Reason: Nausea and Vomiting Last Admin: 06/09/23 10:33 Dose: 4 mg Documented By: RHONDA Oxycodone HCl (Oxycodone Hcl Immed Release 5 Mg Tablet) 5 mg PO Q4H PRN PRN Reason: Pain, Severe (Pain Scale 7-10) Last Admin: 06/11/23 04:06 Dose: 5 mg Documented By: MELA Pentoxifylline (Pentoxifylline Er 400 Mg Tablet.Er) 400 mg PO TID [facility] Last Admin: 06/07/23 10:11 Dose: Not Given Documented By: MAYCOL Non-Admin Reason: held Potassium Chloride (Potassium Chloride Er 20 Meq Tab.Er.Prt) 40 meq PO BID [facility] Stop: 06/11/23 23:59 Last Admin: 06/11/23 08:05 Dose: 40 meq Documented By: REBEKA Simethicone (Simethicone 80 Mg Tab.Chew) 80 mg PO QIDWMHS PRN PRN Reason: gas Simethicone (Simethicone 80 Mg Tab.Chew) 80 mg PO BID [facility] Last Admin: 06/11/23 08:06 Dose: 80 mg Documented By: REBEKA Tamsulosin HCl (Tamsulosin Hcl 0.4 Mg Capsule) 0.4 mg PO DAILY [facility] Last Admin: 06/11/23 08:04 Dose: 0.4 mg Documented By: REBEKA Venlafaxine HCl (Venlafaxine Hcl Er 150 Mg Cap.Er.24h) 150 mg PO DAILY [facility] Last Admin: 06/11/23 08:04 Dose: 150 mg Documented By: REBEKA Labs 06/11/23 06:52 06/11/23 06:52 Labs: Laboratory Results - last 24 hr 06/10/23 06/10/23 06/10/23 11:40 16:10 20:46 POC Glucose 337 H 307 H 229 H 06/11/23 07:17 POC Glucose 273 H Procedures Date of Service Date of Service: 06/11/23 Progress Note: A&P Assessment and plan (1) Ischemic colitis: Status: Acute Assessment and Plan: from low flow state post knee replacement no further blood per rectum abdl pain much improved clinically looks much better ambulate ok to advance diet as tolerated Time Spent With Patient Time: Total time managing care of this patient today ____ minutes. Quality Stroke Does the patient have a stroke diagnosis?: No VTE Prior VTE?: No VTE Risk Level:: Surgical - very high VTE Device Contraindication: N/A - Device Ordered VTE Drug Contraindication: N/A - Med Ordered
--- NOTE | 2023-06-11 10:57 | MHC.CLN ---
F/U PO INTAKE 50, 50, 75% X3 MEALS DIET REMAINS FULL LIQUID TODAY DR DUMONT NOTED ADVANCED DIET TOLERATED TODAY PT RECEIVING ENSURE TID TO INCREASE KCALS SUPPLEMENT PROVIDES 1050KCALS, 60G PROTEIN WITH 100% ACCEPTANCE MONITOR PO INTAKE CLOSELY AND ENCOURAGE SUPPLEMENTS
[2023-06-11 11:22] LABS: Glucose, Whole Blood 345 mg/dL (60-115)
[2023-06-11] MEDS: levoFLOXacin/D5W 750 MG/150 ML PIGGYBACK 100 MG IV (13:07)
[2023-06-11 13:13] VITALS: PULSE 120; O2SAT 95
--- NOTE | 2023-06-11 14:25 | P.PNIM_ITS ---
Subjective Subjective Date of Service: 06/11/23 Interval History: seen and examined this morning follow up for colitis, GI bleeding, PE no more bleeding still with some gas but improving. no sob, no chest pain Review of Systems Review of Systems: Yes all other systems are reviewed and are negative Constitutional Constitutional: Denies chills and Denies fever(s) Cardiovascular Cardiovascular: Denies chest pain, Denies palpitations and Denies dyspnea Respiratory Respiratory: Denies dyspnea Gastrointestinal Gastrointestinal: Denies vomiting Endocrine Endocrine: Denies palpitations Physical Exam 2 Vital Signs: Vital Signs: Last Vital Signs Temp 96.5 F L 06/11/23 07:10 Pulse 120 H 06/11/23 13:13 Resp 18 06/11/23 07:10 BP 131/62 06/11/23 07:10 Pulse Ox 95 06/11/23 13:13 O2 Del Method Room Air 06/11/23 07:10 O2 Flow Rate 96 06/06/23 06:26 FiO2 93 05/29/23 19:00 Oxygen Flow Rate 3 05/29/23 04:00 BMI result Body Mass Index 37.7 Const: General: cooperative, comfortable, no acute distress, alert and awake Nutritional Appearance: overweight Orientation/consciousness: patient oriented x3 Resp: Effort & Inspection: normal respiratory effort, able to speak in complete sentences, no respiratory distress and no use of accessory muscles Cardio: Rate: regular rate GI: Inspection: No distended Palpation (GI): Soft to palpation and no guarding Neuro: General: patient oriented x3, moves all extremities and CN's II-XI intact bilaterally Extrem: General: Yes no pedal edema Objective Data Active Medications Albuterol Sulfate (Albuterol Sulfate 90 Mcg 8 Gm Inhaler) 2 puff INHALE RQ4H PRN PRN Reason: Wheezing Clonidine HCl (Clonidine Hcl 0.2 Mg Tablet) 0.2 mg PO BEDTIME [facility]; Protocol Last Admin: 06/04/23 21:17 Dose: 0.2 mg Documented By: LO Cyanocobalamin (Cyanocobalamin (Vitamin B-12) 100 Mcg Tablet) 100 mcg PO DAILY [facility] Last Admin: 06/11/23 08:05 Dose: 100 mcg Documented By: REBEKA Dextrose (Dextrose 50 % 25 Gm/50 Ml Syringe) 25 gm IVPUSH Q15M PRN; Protocol PRN Reason: per Hypoglycemia Standing Ord. Folic Acid (Folic Acid 1 Mg Tablet) 1 mg PO DAILY [facility] Last Admin: 06/11/23 08:05 Dose: 1 mg Documented By: REBEKA Gabapentin (Gabapentin 100 Mg Capsule) 100 mg PO TID [facility] Last Admin: 06/11/23 08:05 Dose: 100 mg Documented By: REBEKA Glucose (Glucose Gel 15 Gm Gel..Gram.) 15 gm PO Q15M PRN; Protocol PRN Reason: per Hypoglycemia Standing Ord. Metronidazole (Flagyl) 500 mg in 100 mls @ 100 mls/hr IV Q8H [facility] Last Infusion: 06/11/23 13:10 Dose: Infused Documented By: REBEKA Levofloxacin (Levaquin) 750 mg in 150 mls @ 100 mls/hr IV Q24H [facility] Last Admin: 06/11/23 13:07 Dose: 100 mls/hr Documented By: REBEKA Insulin Glargine (Insulin Glargine,Hum.Rec.Anlog 100 Unit/Ml 10 Ml Vial) 10 unit SUBCUT BEDTIME [facility] Last Admin: 06/04/23 21:17 Dose: 10 unit Documented By: LO Insulin Human Lispro (Insulin Lispro 100 Unit/Ml 3 Ml Vial) 0 unit SUBCUT QIDACHS [facility]; Protocol Last Admin: 06/11/23 11:33 Dose: 8 unit Documented By: REBEKA Levothyroxine Sodium (Levothyroxine Sodium 75 Mcg Tablet) 75 mcg PO DAILY@0600 [facility] Last Admin: 06/11/23 05:10 Dose: 75 mcg Documented By: MELA Lidocaine (Lidocaine 4 % Patch Adh..Patch) 2 patch TRANSDERMA DAILY [facility]; Protocol Last Admin: 06/11/23 08:07 Dose: 2 patch Documented By: REBEKA Lisinopril (Lisinopril 20 Mg Tablet) 20 mg PO DAILY [facility]; Protocol Last Admin: 06/11/23 08:05 Dose: 20 mg Documented By: REBEKA Loperamide HCl (Loperamide Hcl 2 Mg Capsule) 4 mg PO Q6H PRN PRN Reason: Diarrhea Last Admin: 06/10/23 08:23 Dose: 4 mg Documented By: SOFFAA Melatonin (Melatonin 3 Mg Tablet) 3 mg PO BEDTIME PRN PRN Reason: Insomnia Last Admin: 06/08/23 20:52 Dose: 3 mg Documented By: TIFFANIE Metoprolol Succinate (Metoprolol Succinate Er 100 Mg Tab.Er.24h) 100 mg PO DAILY [facility]; Protocol Last Admin: 06/11/23 08:04 Dose: 100 mg Documented By: REBEKA Ondansetron HCl (Ondansetron Hcl 4 Mg/2 Ml Vial) 4 mg IVPUSH Q6H PRN PRN Reason: Nausea and Vomiting Last Admin: 06/09/23 10:33 Dose: 4 mg Documented By: RIOSCDOMENIC Oxycodone HCl (Oxycodone Hcl Immed Release 5 Mg Tablet) 5 mg PO Q4H PRN PRN Reason: Pain, Severe (Pain Scale 7-10) Last Admin: 06/11/23 11:47 Dose: 5 mg Documented By: REBEKA Pentoxifylline (Pentoxifylline Er 400 Mg Tablet.Er) 400 mg PO TID [facility] Last Admin: 06/07/23 10:11 Dose: Not Given Documented By: MAYCOL Non-Admin Reason: held Potassium Chloride (Potassium Chloride Er 20 Meq Tab.Er.Prt) 40 meq PO BID [facility] Stop: 06/11/23 23:59 Last Admin: 06/11/23 08:05 Dose: 40 meq Documented By: REBEKA Simethicone (Simethicone 80 Mg Tab.Chew) 80 mg PO QIDWMHS PRN PRN Reason: gas Simethicone (Simethicone 80 Mg Tab.Chew) 80 mg PO BID [facility] Last Admin: 06/11/23 08:06 Dose: 80 mg Documented By: REBEKA Tamsulosin HCl (Tamsulosin Hcl 0.4 Mg Capsule) 0.4 mg PO DAILY [facility] Last Admin: 06/11/23 08:04 Dose: 0.4 mg Documented By: REBEKA Venlafaxine HCl (Venlafaxine Hcl Er 150 Mg Cap.Er.24h) 150 mg PO DAILY [facility] Last Admin: 06/11/23 08:04 Dose: 150 mg Documented By: REBEKA Labs 06/11/23 06:52 06/11/23 06:52 Labs: Laboratory Results - last 24 hr 03/06/10/23 06/11/23 16:10 20:46 07:17 POC Glucose 307 H 229 H 273 H 06/11/23 11:19 POC Glucose 345 H Assessment and Plan (1) Acute blood loss anemia: Status: Acute (2) Ischemic colitis: Status: Acute (3) Status post knee replacement: Status: Acute (4) Pulmonary embolism: Status: Acute Plan 68 year old female with history of htn, asthma/copd overlap, type 2 diabetes, hld, gerd, who presented on 05/25 for elective Left TKA. She subsequently developed hypotention requiring ICU level of care 315-05/31 and was diagnosed to have b/l segmental PE; hospital course further complicated by probable ischemic colitis and now with rectal bleeding/ acute blood loss anemia Abdominal pain/gassiness/bloating, unspecified feeling better tolerating full liquids, advance to diabetic diet no n,v,d KUB> gaseous distension of the large bowel, seen by General surgery, patient having bowel movements and passing flatus, no need for intervention at this time Simethicone prn encourage oob ambulating and to chair Urinary retention (likely secondary to anesthesia/opiates) failed voiding trial and hylton replaced overnight continue Flomax 0.4mg daily will need urology f/u o/p hypokalemia likely due to decreased po intake replace BID and follow check magnesium Rectal bleeding/acute blood loss anemia likely due to ischemic colitis from hypotension AC on hold for now, discussed with GI 06/07, possible restart in one week seen by hematology, as unable to receive blood products ([facility]), s/p 4 doses of IV iron, one dose of procrit CTA abdomen/pelvis 06/06 with no extravasation to suggest site of GI bleeding surgery following, discussed with anesthesia - at high risk for surgery given acute bilateral PE. But if deteriorates, left colectomy may become necessary HH has remained stable for the last few days. no Ischemic Colitis seen by GI, underwent sigmoidoscopy 06/03 - c/w with healing ischemic colitis continue IV Levaquin/Flagyl trental on hold avoid low blood pressure general surgery following Pulmonary embolus CTA 05/28 with bilateral nonocclusive segmental pulmonary emboli (Filling defect identified within the right upper, right middle, right lower, left upper, and left lower pulmonary arterial branches) no respiratory symptoms, continues to remain on room air echo with no evidence of right heart strain therapeutic lovenox on hold due to rectal bleeding as above Left lower extremity ultrasound negative for DVT s/p IVC filter 06/07 OA s/p L TKA 05/25 plan per ortho surgery PT Type 2 diabetes lantus previously on hold as pt was NPO. now tolerating full liquids and POCs trending up. resume lantus Continue SSI, follow POCs HTN trending up continue lisinopril 20 mg metopolol xl restarted 06/09 today at lower dose 100 mg daily lasix, HCTZ, clonidine on hold, may consider restarting as BP allows verapamil d/c in ICU due to hypotension Hypothyroidism continue synthroid mood continue effexor obesity BMI 37.7 weight loss encouraged Attending Dr. Heard SCD boots Requires ongoing hospitalization secondary to the need for IV antibiotics to treat colitis and close monitoring of anemia Quality Stroke Does the patient have a stroke diagnosis?: No VTE Prior VTE?: No VTE Risk Level:: Surgical - very high VTE Device Contraindication: N/A - Device Ordered VTE Drug Contraindication: N/A - Med Ordered
[2023-06-11] MEDS: Magnesium Sulfate/H2O 2 GM/50 ML PIGGYBACK IV (14:51)
[2023-06-11 16:00] VITALS: BP 136/72; PULSE 80; RESP 18; TEMP 36.4; O2SAT 96
[2023-06-11 16:00] LABS: Glucose, Whole Blood 292 mg/dL (60-115)
[2023-06-11 19:01] VITALS: BP 128/62; PULSE 100; RESP 18; TEMP 36; O2SAT 94
[2023-06-11 19:53] LABS: Glucose, Whole Blood 306 mg/dL (60-115)
[2023-06-11] MEDS: Insulin Glargine,Hum.rec.anlog 100 UNIT/ML 10 ML VIAL 10 UNIT SUBCUT (19:59)
[2023-06-11 23:14] VITALS: BP 160/70; PULSE 100; RESP 20; TEMP 36.3; O2SAT 96
[2023-06-12 03:07] VITALS: BP 137/64; PULSE 98; RESP 18; TEMP 36; O2SAT 96
[2023-06-12] MEDS: Levothyroxine Sodium 75 MCG TABLET PO (05:47)
[2023-06-12 07:12] VITALS: BP 172/75; PULSE 93; RESP 20; TEMP 36.8; O2SAT 97
[2023-06-12 07:16] LABS: Glucose, Whole Blood 344 mg/dL (60-115)
[2023-06-12 07:18] LABS: Hemoglobin 8.2 g/dl (12.0-16.0); Mean Corpuscular HGB Conc 31.5 g/dl (31.0-35.0); Mean Corpuscular Hemoglobin 27.8 pg (27.0-33.0); Mean Corpuscular Volume 88.1 fL (80.0-98.0); Mean Platelet Volume 8.9 fL (9.4-12.3); Platelet Count 398 X10*3/uL (160-400); Red Blood Count 2.95 X10*6/uL (4.20-5.50); Red Cell Distribution Width 19.8 % (11.0-16.0); White Blood Count 12.2 X10*3/uL (4.8-10.8)
[2023-06-12 07:39] LABS: Blood Urea Nitrogen 3 mg/dL (9-16); Calcium 7.8 mg/dL (8.4-10.2); Creatinine Clr Calc Pharmacy 74.4; Estimated Glomerular Filt Rate > 60; Magnesium 1.9 mg/dL (1.6-2.6)
[2023-06-12 07:40] LABS: Glucose Random 377 mg/dL (60-115)
[2023-06-12 07:50] LABS: NRBC Pct Auto 7.7 /100WBC (0.0-0.2)
[2023-06-12 07:55] LABS: Anion Gap 12 (12-20); Carbon Dioxide 27 mmol/L (22-29); Chloride 104 mmol/L (96-108); Potassium 3.5 mmol/L (3.3-5.1); Sodium 139 mmol/L (135-145)
[2023-06-12] MEDS: Insulin Lispro 100 UNIT/ML 3 ML VIAL SUBCUT ×4 (08:26→22:49)
[2023-06-12] MEDS: lisinopriL 20 MG TABLET PO (08:37)
[2023-06-12] MEDS: Simethicone 80 MG TAB.CHEW PO ×2 (08:38→21:16)
[2023-06-12] MEDS: Cyanocobalamin (Vitamin B-12) 100 MCG TABLET PO (08:38)
[2023-06-12] MEDS: Metoprolol Succinate ER 100 MG TAB.ER.24H PO (08:38)
[2023-06-12] MEDS: Tamsulosin HCL 0.4 MG CAPSULE PO (08:38)
[2023-06-12] MEDS: Venlafaxine HCl ER 150 MG CAP.ER.24H PO (08:38)
[2023-06-12] MEDS: Folic Acid 1 MG TABLET PO (08:38)
[2023-06-12] MEDS: Gabapentin 100 MG CAPSULE PO ×3 (08:38→21:16)
[2023-06-12] MEDS: Lidocaine 4 % Patch ADH..PATCH 2 PATCH TRANSDERMA (08:40)
[2023-06-12] MEDS: oxyCODONE HCl Immed Release 5 MG TABLET PO ×3 (08:44→21:16)
--- NOTE | 2023-06-12 09:34 | P.PNOP_ITS ---
Subjective Subjective Date of Service: 06/12/23 Principal diagnosis: left TKA Interval history: s/p LT TKA 05/26/23 resting in bed comfortably Knee pain is controlled C/o abdominal pain states she has tried getting out of bed and walking but due to her rectal blee ding it is difficult Physical Exam Vital Signs: Vital Signs: Last Vital Signs Temp 98.3 F 06/12/23 07:12 Pulse 93 06/12/23 07:12 Resp 20 06/12/23 07:12 BP 172/75 H 06/12/23 07:12 Pulse Ox 97 06/12/23 07:12 O2 Del Method Room Air 06/12/23 07:12 O2 Flow Rate 96 06/06/23 06:26 FiO2 93 05/29/23 19:00 Oxygen Flow Rate 3 05/29/23 04:00 BMI result Body Mass Index 37.7 Extrem: Other: incision clean dry and intact. Fer intact. No erythema or joint effusion. Calf supple nontender. Neurovascularly intact. Procedures Date of Service Date of Service: 06/12/23 Progress Note: A&P Assessment and plan (1) Colitis, infectious: Status: Acute (2) Status post knee replacement: Status: Acute (3) Pulmonary embolism: Status: Acute Assessment and Plan: POD 18 s/p left TKA PT for LTKA - wbat encouraged out of bed to chair and walking Aquacel dressing changed today, fer intact. d/c when medically stable (4) Diabetes: Status: Acute (5) Urinary retention: Status: Acute (6) BMI 35.0-35.9,adult: Status: Acute (7) Status post total left knee replacement: Status: Acute Time Spent With Patient Time: Total time managing care of this patient today ____ minutes. Quality Stroke Does the patient have a stroke diagnosis?: No VTE Prior VTE?: No VTE Risk Level:: Surgical - very high VTE Device Contraindication: N/A - Device Ordered VTE Drug Contraindication: N/A - Med Ordered
[2023-06-12 11:00] VITALS: BP 166/74; PULSE 93; RESP 20; TEMP 36.9; O2SAT 94
[2023-06-12 11:10] LABS: Glucose, Whole Blood 300 mg/dL (60-115)
--- NOTE | 2023-06-12 12:23 | MHC.CLN ---
F/U DIET ADVANCED TO DIABETIC BUT NOW DOWNGRADED TO CLEARS PT C/O OF ABDOMINAL PAIN PER PRINCIPAL WEB DEVELOPER; PLAN FOR KUB WILL RE-START ENSURE CLEAR TID TO PROVIDE 720KCALS, 24 G PROTEIN IF PPN NEEDED; RECOMMEND TO START PPN AT 35ML/HR TO PROVIDE 428KCALS, 84G DEXTROSE, 36G PROTEIN MONITOR FOR DIET ADVANCEMENT AND ENCOURAGE SUPPLEMENTS RD CAN BE REACHED DURING OFF HOURS VIA TIGER CONNECT IF NEEDED
--- NOTE | 2023-06-12 13:36 | P.PNIM_ITS ---
Subjective Subjective Date of Service: 06/12/23 Interval History: seen and examined this morning follow up for colitis, PE, GI bleeding History obtained with the assistance of a satellite manager reporting abdominal pain today with ongoing gas having liquid stool, no blood no nausea or vomiting Review of Systems Review of Systems: Yes all other systems are reviewed and are negative Constitutional Constitutional: Denies chills and Denies fever(s) Cardiovascular Cardiovascular: Denies chest pain, Denies palpitations and Denies dyspnea Respiratory Respiratory: Denies cough and Denies dyspnea Endocrine Endocrine: Denies palpitations Physical Exam 2 Vital Signs: Vital Signs: Last Vital Signs Temp 98.4 F 06/12/23 11:00 Pulse 93 06/12/23 11:00 Resp 20 06/12/23 11:00 BP 166/74 H 06/12/23 11:00 Pulse Ox 94 06/12/23 11:00 O2 Del Method Room Air 06/12/23 11:00 O2 Flow Rate 96 06/06/23 06:26 FiO2 93 05/29/23 19:00 Oxygen Flow Rate 3 05/29/23 04:00 BMI result Body Mass Index 37.7 Const: General: cooperative, comfortable, no acute distress, alert and awake Nutritional Appearance: obese and overweight Orientation/consciousness: p atient oriented x3 Resp: Effort & Inspection: normal respiratory effort, able to speak in complete sentences, no respiratory distress and no use of accessory muscles Cardio: Rate: regular rate GI: Other: soft, non-distended; tenderness lower abdomen. no rebound Inspection: No distended Palpation (GI): Soft to palpation and no guarding : Other: hylton in place draining clear yellow urine Neuro: General: patient oriented x3, moves all extremities and CN's II-XI intact bilaterally Extrem: Other: left knee with dry intact bandage General: Yes no pedal edema Objective Data Active Medications Albuterol Sulfate (Albuterol Sulfate 90 Mcg 8 Gm Inhaler) 2 puff INHALE RQ4H PRN PRN Reason: Wheezing Clonidine HCl (Clonidine Hcl 0.2 Mg Tablet) 0.2 mg PO BEDTIME [facility]; Protocol Last Admin: 06/04/23 21:17 Dose: 0.2 mg Documented By: LO Cyanocobalamin (Cyanocobalamin (Vitamin B-12) 100 Mcg Tablet) 100 mcg PO DAILY [facility] Last Admin: 06/12/23 08:38 Dose: 100 mcg Documented By: DAPHNEY Dextrose (Dextrose 50 % 25 Gm/50 Ml Syringe) 25 gm IVPUSH Q15M PRN; Protocol PRN Reason: per Hypoglycemia Standing Ord. Folic Acid (Folic Acid 1 Mg Tablet) 1 mg PO DAILY [facility] Last Admin: 06/12/23 08:38 Dose: 1 mg Documented By: DAPHNEY Gabapentin (Gabapentin 100 Mg Capsule) 100 mg PO TID [facility] Last Admin: 06/12/23 08:38 Dose: 100 mg Documented By: DAPHNEY Glucose (Glucose Gel 15 Gm Gel..Gram.) 15 gm PO Q15M PRN; Protocol PRN Reason: per Hypoglycemia Standing Ord. Insulin Glargine (Insulin Glargine,Hum.Rec.Anlog 100 Unit/Ml 10 Ml Vial) 15 unit SUBCUT BEDTIME [facility] Insulin Human Lispro (Insulin Lispro 100 Unit/Ml 3 Ml Vial) 0 unit SUBCUT QIDACHS [facility]; Protocol Last Admin: 06/12/23 11:46 Dose: 6 unit Documented By: DAPHNEY Levothyroxine Sodium (Levothyroxine Sodium 75 Mcg Tablet) 75 mcg PO DAILY@0600 [facility] Last Admin: 06/12/23 05:47 Dose: 75 mcg Documented By: ANTOIC Lidocaine (Lidocaine 4 % Patch Adh..Patch) 2 patch TRANSDERMA DAILY [facility]; Protocol Last Admin: 06/12/23 08:40 Dose: 2 patch Documented By: DAPHNEY Lisinopril (Lisinopril 20 Mg Tablet) 20 mg PO DAILY [facility]; Protocol Last Admin: 06/12/23 08:37 Dose: 20 mg Documented By: DAPHNEY Loperamide HCl (Loperamide Hcl 2 Mg Capsule) 4 mg PO Q6H PRN PRN Reason: Diarrhea Last Admin: 06/10/23 08:23 Dose: 4 mg Documented By: LISSFAMarshal Melatonin (Melatonin 3 Mg Tablet) 3 mg PO BEDTIME PRN PRN Reason: Insomnia Last Admin: 06/08/23 20:52 Dose: 3 mg Documented By: TIFFANIE Metoprolol Succinate (Metoprolol Succinate Er 100 Mg Tab.Er.24h) 200 mg PO DAILY [facility]; Protocol Ondansetron HCl (Ondansetron Hcl 4 Mg/2 Ml Vial) 4 mg IVPUSH Q6H PRN PRN Reason: Nausea and Vomiting Last Admin: 06/09/23 10:33 Dose: 4 mg Documented By: RHONDA Oxycodone HCl (Oxycodone Hcl Immed Release 5 Mg Tablet) 5 mg PO Q4H PRN PRN Reason: Pain, Severe (Pain Scale 7-10) Last Admin: 06/12/23 08:44 Dose: 5 mg Documented By: DAPHNEY Pentoxifylline (Pentoxifylline Er 400 Mg Tablet.Er) 400 mg PO TID [facility] Last Admin: 06/07/23 10:11 Dose: Not Given Documented By: MAYCOL Non-Admin Reason: held Simethicone (Simethicone 80 Mg Tab.Chew) 80 mg PO QIDWMHS PRN PRN Reason: gas Simethicone (Simethicone 80 Mg Tab.Chew) 80 mg PO BID [facility] Last Admin: 06/12/23 08:38 Dose: 80 mg Documented By: DAPHNEY Tamsulosin HCl (Tamsulosin Hcl 0.4 Mg Capsule) 0.4 mg PO DAILY [facility] Last Admin: 06/12/23 08:38 Dose: 0.4 mg Documented By: DAPHNEY Venlafaxine HCl (Venlafaxine Hcl Er 150 Mg Cap.Er.24h) 150 mg PO DAILY [facility] Last Admin: 06/12/23 08:38 Dose: 150 mg Documented By: DAPHNEY Labs 06/12/23 06:59 06/12/23 06:59 Labs: Laboratory Results - last 24 hr 06/11/23 06/11/23 06/12/23 15:56 19:46 06:59 MCV 88.1 MCH 27.8 MCHC 31.5 RDW 19.8 H Plt Count 398 D MPV 8.9 L Absolute Nucleated RBC 0.940 H Nucleated RBC % (auto) 7.7 H Smear Path Review SEE NOTE Anion Gap 12 Estim Creat Clear Calc 74.4 Estimated GFR > 60 POC Glucose 292 H 306 H Random Glucose 377 H* Calcium 7.8 L Magnesium 1.9 06/12/23 06/12/23 07:11 11:01 MCV MCH MCHC RDW Plt Count MPV Absolute Nucleated RBC Nucleated RBC % (auto) Smear Path Review Anion Gap Estim Creat Clear Calc Estimated GFR POC Glucose 344 H 300 H Random Glucose Calcium Magnesium Assessment and Plan (1) Acute blood loss anemia: Status: Acute (2) Ischemic colitis: Status: Acute (3) Pulmonary embolism: Status: Acute (4) Status post knee replacement: Status: Acute (5) Urinary retention: Status: Acute Plan 68 year old female with history of htn, asthma/copd overlap, type 2 diabetes, hld, gerd, who presented on 05/25 for elective Left TKA. She subsequently developed hypotention requiring ICU level of care 315-05/31 and was diagnosed to have b/l segmental PE; hospital course further complicated by probable ischemic colitis and now with rectal bleeding/ acute blood loss anemia Abdominal pain/gassiness/bloating, unspecified was tolerating full liquids, advance to diabetic diet and now with abdominal pain again KUB 06/08> gaseous distension of the large bowel, seen by General surgery, patient having bowel movements and passing flatus, no need for intervention at this time. will repeat KUB Simethicone prn encourage oob ambulating and to chair Urinary retention (likely secondary to anesthesia/opiates) failed voiding trial and hylton replaced overnight continue Flomax 0.4mg daily will need urology f/u o/p hypokalemia likely due to decreased po intake improved with replacement Rectal bleeding/acute blood loss anemia likely due to ischemic colitis from hypotension AC on hold for now, discussed with GI 06/07, possible restart in one week seen by hematology, as unable to receive blood products ([place]), s/p 4 doses of IV iron, one dose of procrit CTA abdomen/pelvis 06/06 with no extravasation to suggest site of GI bleeding surgery following, discussed with anesthesia - at high risk for surgery given acute bilateral PE. But if deteriorates, left colectomy may become necessary HH has remained stable for the last few days Ischemic Colitis seen by GI, underwent sigmoidoscopy 06/03 - c/w with healing ischemic colitis compleated course of IV Levaquin/Flagyl trental on hold avoid low blood pressure general surgery following Pulmonary embolus CTA 05/28 with bilateral nonocclusive segmental pulmonary emboli (Filling defect identified within the right upper, right middle, right lower, left upper, and left lower pulmonary arterial branches) no respiratory symptoms, continues to remain on room air echo with no evidence of right heart strain therapeutic lovenox on hold due to rectal bleeding as above, consider restart 06/14 Left lower extremity ultrasound negative for DVT s/p IVC filter 06/07 OA s/p L TKA 05/25 plan per ortho surgery PT Type 2 diabetes lantus previously on hold as pt was NPO. now tolerating full liquids and POCs trending up titrate lantus Continue SSI, follow POCs HTN trending up continue lisinopril 20 mg metopolol xl restarted 06/09, bp and HR still elevated, will increase to full home dose in am lasix, HCTZ, clonidine on hold, may consider restarting as BP allows verapamil d/c in ICU due to hypotension Hypothyroidism continue synthroid mood continue effexor obesity BMI 37.7 weight loss encouraged Attending Dr. Heard SCD boots Requires ongoing hospitalization secondary to the need for IV antibiotics to treat colitis and close monitoring of anemia Quality Stroke Does the patient have a stroke diagnosis?: No VTE Prior VTE?: No VTE Risk Level:: Surgical - very high VTE Device Contraindication: N/A - Device Ordered VTE Drug Contraindication: N/A - Med Ordered
[2023-06-12 15:22] VITALS: BP 166/74; PULSE 93; O2SAT 94
[2023-06-12 16:00] VITALS: BP 175/77; PULSE 96; RESP 18; TEMP 36.3; O2SAT 96
--- NOTE | 2023-06-12 16:17 | MHC.CM.PN ---
EMR reviewed and per MD rounds, pt is not medically cleared for D/C due to management of anemia and colitis.
[2023-06-12] MEDS: Loperamide HCl 2 MG CAPSULE 4 MG PO (16:20)
[2023-06-12 16:35] LABS: Glucose, Whole Blood 241 mg/dL (60-115)
[2023-06-12 19:20] VITALS: BP 132/62; PULSE 100; RESP 18; TEMP 36.3; O2SAT 95
[2023-06-12 21:26] LABS: Glucose, Whole Blood 281 mg/dL (60-115)
[2023-06-12] MEDS: Insulin Glargine,Hum.rec.anlog 100 UNIT/ML 10 ML VIAL 15 UNIT SUBCUT (22:48)
[2023-06-13] VITALS: BP 180/81; PULSE 98; RESP 20; TEMP 36.1; O2SAT 99
[2023-06-13 03:15] VITALS: BP 180/80; PULSE 97; RESP 20; TEMP 36.1; O2SAT 94
[2023-06-13] MEDS: Levothyroxine Sodium 75 MCG TABLET PO (06:31)
[2023-06-13] MEDS: oxyCODONE HCl Immed Release 5 MG TABLET PO ×3 (06:35→21:14)
[2023-06-13] MEDS: Loperamide HCl 2 MG CAPSULE 4 MG PO ×3 (06:39→21:15)
[2023-06-13 07:17] LABS: Glucose, Whole Blood 254 mg/dL (60-115)
[2023-06-13 07:56] VITALS: BP 171/73; PULSE 95; RESP 20; TEMP 36.6; O2SAT 94
[2023-06-13] MEDS: Gabapentin 100 MG CAPSULE PO ×3 (08:23→21:15)
[2023-06-13] MEDS: Metoprolol Succinate ER 100 MG TAB.ER.24H 200 MG PO (08:23)
[2023-06-13] MEDS: Folic Acid 1 MG TABLET PO (08:23)
[2023-06-13] MEDS: lisinopriL 40 MG TABLET PO (08:23)
[2023-06-13] MEDS: Cyanocobalamin (Vitamin B-12) 100 MCG TABLET PO (08:24)
[2023-06-13] MEDS: Venlafaxine HCl ER 150 MG CAP.ER.24H PO (08:24)
[2023-06-13] MEDS: Lidocaine 4 % Patch ADH..PATCH 2 PATCH TRANSDERMA (08:24)
[2023-06-13] MEDS: Insulin Lispro 100 UNIT/ML 3 ML VIAL SUBCUT ×4 (08:24→21:18)
[2023-06-13] MEDS: Tamsulosin HCL 0.4 MG CAPSULE PO (08:24)
[2023-06-13 11:36] VITALS: BP 140/72; PULSE 91; RESP 20; TEMP 36.7; O2SAT 96
[2023-06-13 12:13] LABS: Glucose, Whole Blood 225 mg/dL (60-115)
--- NOTE | 2023-06-13 13:43 | P.PNGS_ITS ---
Subjective Subjective Date of Service: 06/13/23 Interval history: Patient is complaining of abdominal pain although she is passing gas and having some bowel movements no more blood coming through. She is hungry and has been tolerating diet. Physical Exam 2 Vital Signs: Vital Signs: Last Vital Signs Temp 98.0 F 06/13/23 11:36 Pulse 91 06/13/23 11:36 Resp 20 06/13/23 11:36 BP 140/72 H 06/13/23 11:36 Pulse Ox 96 06/13/23 11:36 O2 Del Method Room Air 06/13/23 11:36 O2 Flow Rate 96 06/06/23 06:26 FiO2 93 05/29/23 19:00 Oxygen Flow Rate 3 05/29/23 04:00 BMI result Body Mass Index 37.7 GI: Other: Abdomen is tender in the lower abdomen midline area not so much in the left abdomen a little bit more on the right lower quadrant. No guarding no rebound no peritoneal signs. Good bowel sounds Objective Data Active Medications Albuterol Sulfate (Albuterol Sulfate 90 Mcg 8 Gm Inhaler) 2 puff INHALE RQ4H PRN PRN Reason: Wheezing Clonidine HCl (Clonidine Hcl 0.2 Mg Tablet) 0.2 mg PO BEDTIME [facility]; Protocol Last Admin: 06/04/23 21:17 Dose: 0.2 mg Documented By: LO Cyanocobalamin (Cyanocobalamin (Vitamin B-12) 100 Mcg Tablet) 100 mcg PO DAILY [facility] Last Admin: 06/13/23 08:24 Dose: 100 mcg Documented By: CAR Dextrose (Dextrose 50 % 25 Gm/50 Ml Syringe) 25 gm IVPUSH Q15M PRN; Protocol PRN Reason: per Hypoglycemia Standing Ord. Folic Acid (Folic Acid 1 Mg Tablet) 1 mg PO DAILY [facility] Last Admin: 06/13/23 08:23 Dose: 1 mg Documented By: CAR Gabapentin (Gabapentin 100 Mg Capsule) 100 mg PO TID [facility] Last Admin: 06/13/23 08:23 Dose: 100 mg Documented By: CAR Glucose (Glucose Gel 15 Gm Gel..Gram.) 15 gm PO Q15M PRN; Protocol PRN Reason: per Hypoglycemia Standing Ord. Insulin Glargine (Insulin Glargine,Hum.Rec.Anlog 100 Unit/Ml 10 Ml Vial) 15 unit SUBCUT BEDTIME [facility] Last Admin: 06/12/23 22:48 Dose: 15 unit Documented By: MEAL Insulin Human Lispro (Insulin Lispro 100 Unit/Ml 3 Ml Vial) 0 unit SUBCUT QIDACHS [facility]; Protocol Last Admin: 06/13/23 12:12 Dose: 4 unit Documented By: CAR Levothyroxine Sodium (Levothyroxine Sodium 75 Mcg Tablet) 75 mcg PO DAILY@0600 [facility] Last Admin: 06/13/23 06:31 Dose: 75 mcg Documented By: MELA Lidocaine (Lidocaine 4 % Patch Adh..Patch) 2 patch TRANSDERMA DAILY [facility]; Protocol Last Admin: 06/13/23 08:24 Dose: 2 patch Documented By: CAR Lisinopril (Lisinopril 40 Mg Tablet) 40 mg PO DAILY [facility]; Protocol Last Admin: 06/13/23 08:23 Dose: 40 mg Documented By: CAR Loperamide HCl (Loperamide Hcl 2 Mg Capsule) 4 mg PO Q6H PRN PRN Reason: Diarrhea Last Admin: 06/13/23 06:39 Dose: 4 mg Documented By: MELA Melatonin (Melatonin 3 Mg Tablet) 3 mg PO BEDTIME PRN PRN Reason: Insomnia Last Admin: 06/08/23 20:52 Dose: 3 mg Documented By: TIFFANIE Metoprolol Succinate (Metoprolol Succinate Er 100 Mg Tab.Er.24h) 200 mg PO DAILY [facility]; Protocol Last Admin: 06/13/23 08:23 Dose: 200 mg Documented By: CAR Ondansetron HCl (Ondansetron Hcl 4 Mg/2 Ml Vial) 4 mg IVPUSH Q6H PRN PRN Reason: Nausea and Vomiting Last Admin: 06/09/23 10:33 Dose: 4 mg Documented By: RIOMELISA Oxycodone HCl (Oxycodone Hcl Immed Release 5 Mg Tablet) 5 mg PO Q4H PRN PRN Reason: Pain, Severe (Pain Scale 7-10) Last Admin: 06/13/23 06:35 Dose: 5 mg Documented By: MELA Pentoxifylline (Pentoxifylline Er 400 Mg Tablet.Er) 400 mg PO TID [facility] Last Admin: 06/07/23 10:11 Dose: Not Given Documented By: MAYCOL Non-Admin Reason: held Simethicone (Simethicone 80 Mg Tab.Chew) 80 mg PO QIDWMHS PRN PRN Reason: gas Tamsulosin HCl (Tamsulosin Hcl 0.4 Mg Capsule) 0.4 mg PO DAILY [facility] Last Admin: 06/13/23 08:24 Dose: 0.4 mg Documented By: CAR Venlafaxine HCl (Venlafaxine Hcl Er 150 Mg Cap.Er.24h) 150 mg PO DAILY [facility] Last Admin: 06/13/23 08:24 Dose: 150 mg Documented By: CAR Labs 06/12/23 06:59 06/12/23 06:59 Labs: Laboratory Results - last 24 hr 06/12/23 06/12/23 06/13/23 16:24 21:19 07:11 POC Glucose 241 H 281 H 254 H 06/13/23 12:02 POC Glucose 225 H Procedures Date of Service Date of Service: 06/13/23 Progress Note: A&P Assessment and plan (1) Ischemic colitis: Status: Acute (2) Colitis, infectious: Status: Acute Plan 68-year-old female [employer] Witness anticoagulated for PE with colitis improving. Her H&H has been stable white counts improving she has been tolerating p.o. diet little bit although she is complaining today of some more abdominal pain. At this point plan to leave her diet on clear liquids and then re-evaluate tomorrow. Out of bed ambulate medical team following medical issues. There has no issues requiring surgical intervention her last KUB looked good with no evidence of any obstruction etc. Time Spent With Patient Time: Total time managing care of this patient today ____ minutes. Quality Stroke Does the patient have a stroke diagnosis?: No VTE Prior VTE?: No VTE Risk Level:: Surgical - very high VTE Device Contraindication: N/A - Device Ordered VTE Drug Contraindication: N/A - Med Ordered
--- NOTE | 2023-06-13 13:48 | HO.PM.IMPN ---
Subjective Subjective Date of Service: 06/13/23 Interval History: seen and examined this morning follow up for colitis, PE, GI bleeding History obtained with the assistance of a shift nurse manager reporting abdominal pain today with ongoing gas having liquid stool, no blood no nausea or vomiting Review of Systems Review of Systems: Yes all other systems are reviewed and are negative Constitutional Constitutional: Denies chills and Denies fever(s) Cardiovascular Cardiovascular: Denies chest pain, Denies palpitations and Denies dyspnea Respiratory Respiratory: Denies cough and Denies dyspnea Endocrine Endocrine: Denies palpitations Physical Exam Vital Signs: Vital Signs: Last Vital Signs Temp 98.0 F 06/13/23 11:36 Pulse 91 06/13/23 11:36 Resp 20 06/13/23 11:36 BP 140/72 H 06/13/23 11:36 Pulse Ox 96 06/13/23 11:36 O2 Del Method Room Air 06/13/23 11:36 O2 Flow Rate 96 06/06/23 06:26 FiO2 93 05/29/23 19:00 Oxygen Flow Rate 3 05/29/23 04:00 BMI result Body Mass Index 37.7 Appearing in no acute distress head is normocephalic atraumatic eyes pupils are PERRLA sclera is anicteric mouth throat mucous membranes are intact and moist neck is supple no lymphadenopathy, no JVD noted lung sounds are clear to auscultation heart regular rate rhythm, clear S1, S2 positive bowel sounds, abdomen is soft, nontender neuro patient is alert x3, no focal deficits Objective Data Active Medications Albuterol Sulfate (Albuterol Sulfate 90 Mcg 8 Gm Inhaler) 2 puff INHALE RQ4H PRN PRN Reason: Wheezing Clonidine HCl (Clonidine Hcl 0.2 Mg Tablet) 0.2 mg PO BEDTIME [facility]; Protocol Last Admin: 06/04/23 21:17 Dose: 0.2 mg Documented By: LO Cyanocobalamin (Cyanocobalamin (Vitamin B-12) 100 Mcg Tablet) 100 mcg PO DAILY [facility] Last Admin: 06/13/23 08:24 Dose: 100 mcg Documented By: CAR Dextrose (Dextrose 50 % 25 Gm/50 Ml Syringe) 25 gm IVPUSH Q15M PRN; Protocol PRN Reason: per Hypoglycemia Standing Ord. Folic Acid (Folic Acid 1 Mg Tablet) 1 mg PO DAILY [facility] Last Admin: 06/13/23 08:23 Dose: 1 mg Documented By: CAR Gabapentin (Gabapentin 100 Mg Capsule) 100 mg PO TID [facility] Last Admin: 06/13/23 08:23 Dose: 100 mg Documented By: CAR Glucose (Glucose Gel 15 Gm Gel..Gram.) 15 gm PO Q15M PRN; Protocol PRN Reason: per Hypoglycemia Standing Ord. Insulin Glargine (Insulin Glargine,Hum.Rec.Anlog 100 Unit/Ml 10 Ml Vial) 15 unit SUBCUT BEDTIME [facility] Last Admin: 06/12/23 22:48 Dose: 15 unit Documented By: MELA Insulin Human Lispro (Insulin Lispro 100 Unit/Ml 3 Ml Vial) 0 unit SUBCUT QIDACHS [facility]; Protocol Last Admin: 06/13/23 12:12 Dose: 4 unit Documented By: CAR Levothyroxine Sodium (Levothyroxine Sodium 75 Mcg Tablet) 75 mcg PO DAILY@0600 [facility] Last Admin: 06/13/23 06:31 Dose: 75 mcg Documented By: MELA Lidocaine (Lidocaine 4 % Patch Adh..Patch) 2 patch TRANSDERMA DAILY [facility]; Protocol Last Admin: 06/13/23 08:24 Dose: 2 patch Documented By: CAR Lisinopril (Lisinopril 40 Mg Tablet) 40 mg PO DAILY [facility]; Protocol Last Admin: 06/13/23 08:23 Dose: 40 mg Documented By: CAR Loperamide HCl (Loperamide Hcl 2 Mg Capsule) 4 mg PO Q6H PRN PRN Reason: Diarrhea Last Admin: 06/13/23 06:39 Dose: 4 mg Documented By: MELA Melatonin (Melatonin 3 Mg Tablet) 3 mg PO BEDTIME PRN PRN Reason: Insomnia Last Admin: 06/08/23 20:52 Dose: 3 mg Documented By: TIFFANIE Metoprolol Succinate (Metoprolol Succinate Er 100 Mg Tab.Er.24h) 200 mg PO DAILY [facility]; Protocol Last Admin: 06/13/23 08:23 Dose: 200 mg Documented By: CAR Ondansetron HCl (Ondansetron Hcl 4 Mg/2 Ml Vial) 4 mg IVPUSH Q6H PRN PRN Reason: Nausea and Vomiting Last Admin: 06/09/23 10:33 Dose: 4 mg Documented By: RHONDA Oxycodone HCl (Oxycodone Hcl Immed Release 5 Mg Tablet) 5 mg PO Q4H PRN PRN Reason: Pain, Severe (Pain Scale 7-10) Last Admin: 06/13/23 06:35 Dose: 5 mg Documented By: MELA Pentoxifylline (Pentoxifylline Er 400 Mg Tablet.Er) 400 mg PO TID [facility] Last Admin: 06/07/23 10:11 Dose: Not Given Documented By: MAYCOL Non-Admin Reason: held Simethicone (Simethicone 80 Mg Tab.Chew) 80 mg PO QIDWMHS PRN PRN Reason: gas Tamsulosin HCl (Tamsulosin Hcl 0.4 Mg Capsule) 0.4 mg PO DAILY [facility] Last Admin: 06/13/23 08:24 Dose: 0.4 mg Documented By: CAR Venlafaxine HCl (Venlafaxine Hcl Er 150 Mg Cap.Er.24h) 150 mg PO DAILY [facility] Last Admin: 06/13/23 08:24 Dose: 150 mg Documented By: CAR Labs 06/12/23 06:59 06/12/23 06:59 Labs: Laboratory Results - last 24 hr 06/12/23 06/12/23 06/13/23 16:24 21:19 07:11 POC Glucose 241 H 281 H 254 H 06/13/23 12:02 POC Glucose 225 H Assessment and Plan (1) Acute blood loss anemia: Status: Acute (2) Ischemic colitis: Status: Acute (3) Pulmonary embolism: Status: Acute (4) Status post knee replacement: Status: Acute (5) Urinary retention: Status: Acute Plan 68 year old female with history of htn, asthma/copd overlap, type 2 diabetes, hld, gerd, who presented on 05/25 for elective Left TKA. She subsequently developed hypotention requiring ICU level of care 315-05/31 and was diagnosed to have b/l segmental PE; hospital course further complicated by probable ischemic colitis and now with rectal bleeding/ acute blood loss anemia Abdominal pain/gassiness/bloating, unspecified Simethicone prn encourage oob ambulating and to chair KUB normal from 06/12/23 Urinary retention (likely secondary to anesthesia/opiates) failed voiding trial and hylton replaced continue Flomax 0.4mg daily will need urology f/u o/p hypokalemia likely due to decreased po intake improved with replacement Rectal bleeding/acute blood loss anemia likely due to ischemic colitis from hypotension AC on hold for now, discussed with GI 06/07, possible restart in one week seen by hematology, as unable to receive blood products ([facility]), s/p 4 doses of IV iron, one dose of procrit CTA abdomen/pelvis 06/06 with no extravasation to suggest site of GI bleeding surgery following, discussed with anesthesia - at high risk for surgery given acute bilateral PE. But if deteriorates, left colectomy may become necessary HH has remained stable for the last few days Ischemic Colitis seen by GI, underwent sigmoidoscopy 06/03 - c/w with healing ischemic colitis completed course of IV Levaquin/Flagyl trental on hold avoid low blood pressure general surgery following Pulmonary embolus CTA 05/28 with bilateral nonocclusive segmental pulmonary emboli (Filling defect identified within the right upper, right middle, right lower, left upper, and left lower pulmonary arterial branches) no respiratory symptoms, continues to remain on room air echo with no evidence of right heart strain therapeutic lovenox on hold due to rectal bleeding as above, consider restart 06/14 Left lower extremity ultrasound negative for DVT s/p IVC filter 06/07 OA s/p L TKA 05/25 plan per ortho surgery PT Type 2 diabetes lantus previously on hold as pt was NPO. now tolerating full liquids and POCs trending up titrate lantus Continue SSI, follow POCs HTN trending up continue lisinopril 20 mg metoprolol xl restarted 06/09, bp and HR still elevated, will increase to full home dose in am lasix, HCTZ, clonidine on hold, may consider restarting as BP allows verapamil d/c in ICU due to hypotension Hypothyroidism continue synthroid mood continue effexor obesity BMI 37.7 weight loss encouraged Attending Dr. Sumner SCD boots Requires ongoing hospitalization secondary to the need for IV antibiotics to treat colitis and close monitoring of anemia Quality Stroke Does the patient have a stroke diagnosis?: No VTE Prior VTE?: No VTE Risk Level:: Surgical - very high VTE Device Contraindication: N/A - Device Ordered VTE Drug Contraindication: N/A - Med Ordered
[2023-06-13 16:00] VITALS: BP 142/71; PULSE 93; RESP 17; TEMP 36; O2SAT 96
[2023-06-13 16:13] LABS: Glucose, Whole Blood 221 mg/dL (60-115)
[2023-06-13 16:48] VITALS: BP 142/71; PULSE 93; O2SAT 96
[2023-06-13 20:31] LABS: Glucose, Whole Blood 190 mg/dL (60-115)
[2023-06-13] MEDS: Melatonin 3 MG TABLET PO (21:15)
[2023-06-13] MEDS: Insulin Glargine,Hum.rec.anlog 100 UNIT/ML 10 ML VIAL 15 UNIT SUBCUT (21:17)
[2023-06-14 03:35] VITALS: BP 137/73; PULSE 96; RESP 20; TEMP 36.1; O2SAT 96
[2023-06-14] MEDS: Loperamide HCl 2 MG CAPSULE 4 MG PO ×4 (04:56→20:34)
[2023-06-14] MEDS: Levothyroxine Sodium 75 MCG TABLET PO (05:00)
[2023-06-14 07:21] LABS: Hematocrit 26.7 % (37.0-47.0); Hemoglobin 8.4 g/dl (12.0-16.0); Mean Corpuscular HGB Conc 31.5 g/dl (31.0-35.0); Mean Corpuscular Hemoglobin 28.3 pg (27.0-33.0); Mean Corpuscular Volume 89.9 fL (80.0-98.0); Mean Platelet Volume 8.8 fL (9.4-12.3); Platelet Count 228 X10*3/uL (160-400); Red Blood Count 2.97 X10*6/uL (4.20-5.50); Red Cell Distribution Width 21.4 % (11.0-16.0); White Blood Count 13.5 X10*3/uL (4.8-10.8)
[2023-06-14 07:26] LABS: NRBC Pct Auto 3.3 /100WBC (0.0-0.2)
[2023-06-14 07:43] VITALS: BP 131/61; PULSE 94; RESP 18; TEMP 36.3; O2SAT 93
[2023-06-14 08:03] LABS: Glucose, Whole Blood 246 mg/dL (60-115)
[2023-06-14] MEDS: oxyCODONE HCl Immed Release 5 MG TABLET PO ×2 (08:42→20:35)
[2023-06-14] MEDS: Gabapentin 100 MG CAPSULE PO ×3 (08:43→20:35)
[2023-06-14] MEDS: Metoprolol Succinate ER 100 MG TAB.ER.24H 200 MG PO (08:43)
[2023-06-14] MEDS: Folic Acid 1 MG TABLET PO (08:44)
[2023-06-14] MEDS: Venlafaxine HCl ER 150 MG CAP.ER.24H PO (08:44)
[2023-06-14] MEDS: Lidocaine 4 % Patch ADH..PATCH 2 PATCH TRANSDERMA (08:44)
[2023-06-14] MEDS: lisinopriL 40 MG TABLET PO (08:44)
[2023-06-14] MEDS: Tamsulosin HCL 0.4 MG CAPSULE PO (08:44)
[2023-06-14] MEDS: Insulin Lispro 100 UNIT/ML 3 ML VIAL SUBCUT ×4 (08:44→20:47)
[2023-06-14] MEDS: Cyanocobalamin (Vitamin B-12) 100 MCG TABLET PO (08:44)
--- NOTE | 2023-06-14 10:16 | HO.PM.IMPN ---
Subjective Subjective Date of Service: 06/14/23 Interval History: seen and examined this morning follow up for colitis, PE, GI bleeding no nausea or vomiting Review of Systems Review of Systems: Yes all other systems are reviewed and are negative Constitutional Constitutional: Denies chills and Denies fever(s) Cardiovascular Cardiovascular: Denies chest pain, Denies palpitations and Denies dyspnea Respiratory Respiratory: Denies cough and Denies dyspnea Endocrine Endocrine: Denies palpitations Physical Exam Vital Signs: Vital Signs: Last Vital Signs Temp 97.3 F 06/14/23 07:43 Pulse 94 06/14/23 07:43 Resp 18 06/14/23 07:43 BP 131/61 06/14/23 07:43 Pulse Ox 93 06/14/23 07:43 O2 Del Method Room Air 06/14/23 07:43 O2 Flow Rate 96 06/06/23 06:26 FiO2 93 05/29/23 19:00 Oxygen Flow Rate 3 05/29/23 04:00 BMI result Body Mass Index 37.7 Appearing in no acute distress lung sounds are clear to auscultation heart regular rate rhythm, clear S1, S2 positive bowel sounds, abdomen is soft, nontender neuro patient is alert x3, no focal deficits Objective Data Active Medications Albuterol Sulfate (Albuterol Sulfate 90 Mcg 8 Gm Inhaler) 2 puff INHALE RQ4H PRN PRN Reason: Wheezing Clonidine HCl (Clonidine Hcl 0.2 Mg Tablet) 0.2 mg PO BEDTIME [facility]; Protocol Last Admin: 06/04/23 21:17 Dose: 0.2 mg Documented By: LO Cyanocobalamin (Cyanocobalamin (Vitamin B-12) 100 Mcg Tablet) 100 mcg PO DAILY [facility] Last Admin: 06/14/23 08:44 Dose: 100 mcg Documented By: CAR Dextrose (Dextrose 50 % 25 Gm/50 Ml Syringe) 25 gm IVPUSH Q15M PRN; Protocol PRN Reason: per Hypoglycemia Standing Ord. Folic Acid (Folic Acid 1 Mg Tablet) 1 mg PO DAILY [facility] Last Admin: 06/14/23 08:44 Dose: 1 mg Documented By: CAR Gabapentin (Gabapentin 100 Mg Capsule) 100 mg PO TID [facility] Last Admin: 06/14/23 08:43 Dose: 100 mg Documented By: CAR Glucose (Glucose Gel 15 Gm Gel..Gram.) 15 gm PO Q15M PRN; Protocol PRN Reason: per Hypoglycemia Standing Ord. Insulin Glargine (Insulin Glargine,Hum.Rec.Anlog 100 Unit/Ml 10 Ml Vial) 15 unit SUBCUT BEDTIME [facility] Last Admin: 06/13/23 21:17 Dose: 15 unit Documented By: RAMAKRISHNA Insulin Human Lispro (Insulin Lispro 100 Unit/Ml 3 Ml Vial) 0 unit SUBCUT QIDACHS [facility]; Protocol Last Admin: 06/14/23 08:44 Dose: 4 unit Documented By: CAR Levothyroxine Sodium (Levothyroxine Sodium 75 Mcg Tablet) 75 mcg PO DAILY@0600 [facility] Last Admin: 06/14/23 05:00 Dose: 75 mcg Documented By: RAMAKRISHNA Lidocaine (Lidocaine 4 % Patch Adh..Patch) 2 patch TRANSDERMA DAILY [facility]; Protocol Last Admin: 06/14/23 08:44 Dose: 2 patch Documented By: CAR Lisinopril (Lisinopril 40 Mg Tablet) 40 mg PO DAILY [facility]; Protocol Last Admin: 06/14/23 08:44 Dose: 40 mg Documented By: CAR Loperamide HCl (Loperamide Hcl 2 Mg Capsule) 4 mg PO Q6H [facility] Last Admin: 06/14/23 08:43 Dose: 4 mg Documented By: CAR Melatonin (Melatonin 3 Mg Tablet) 3 mg PO BEDTIME PRN PRN Reason: Insomnia Last Admin: 06/13/23 21:15 Dose: 3 mg Documented By: RAMAKRISHNA Metoprolol Succinate (Metoprolol Succinate Er 100 Mg Tab.Er.24h) 200 mg PO DAILY [facility]; Protocol Last Admin: 06/14/23 08:43 Dose: 200 mg Documented By: CAR Ondansetron HCl (Ondansetron Hcl 4 Mg/2 Ml Vial) 4 mg IVPUSH Q6H PRN PRN Reason: Nausea and Vomiting Last Admin: 06/09/23 10:33 Dose: 4 mg Documented By: RIOSCDOMENIC Oxycodone HCl (Oxycodone Hcl Immed Release 5 Mg Tablet) 5 mg PO Q4H PRN PRN Reason: Pain, Severe (Pain Scale 7-10) Last Admin: 06/14/23 08:42 Dose: 5 mg Documented By: CAR Pentoxifylline (Pentoxifylline Er 400 Mg Tablet.Er) 400 mg PO TID [facility] Last Admin: 06/07/23 10:11 Dose: Not Given Documented By: MAYCOL Non-Admin Reason: held Simethicone (Simethicone 80 Mg Tab.Chew) 80 mg PO QIDWMHS PRN PRN Reason: gas Tamsulosin HCl (Tamsulosin Hcl 0.4 Mg Capsule) 0.4 mg PO DAILY [facility] Last Admin: 06/14/23 08:44 Dose: 0.4 mg Documented By: CAR Venlafaxine HCl (Venlafaxine Hcl Er 150 Mg Cap.Er.24h) 150 mg PO DAILY [facility] Last Admin: 06/14/23 08:44 Dose: 150 mg Documented By: CAR Labs 06/14/23 07:11 06/12/23 06:59 Labs: Laboratory Results - last 24 hr 06/13/23 06/13/23 06/13/23 12:02 15:57 20:14 MCV MCH MCHC RDW Plt Count MPV Absolute Nucleated RBC Nucleated RBC % (auto) POC Glucose 225 H 221 H 190 H 06/14/23 06/14/23 07:11 07:50 MCV 89.9 MCH 28.3 MCHC 31.5 RDW 21.4 H Plt Count 228 D MPV 8.8 L Absolute Nucleated RBC 0.450 H Nucleated RBC % (auto) 3.3 H POC Glucose 246 H Assessment and Plan (1) Acute blood loss anemia: Status: Acute (2) Ischemic colitis: Status: Acute (3) Pulmonary embolism: Status: Acute (4) Status post knee replacement: Status: Acute (5) Urinary retention: Status: Acute Plan 68 year old female with history of htn, asthma/copd overlap, type 2 diabetes, hld, gerd, who presented on 05/25 for elective Left TKA. She subsequently developed hypotention requiring ICU level of care 315-05/31 and was diagnosed to have b/l segmental PE; hospital course further complicated by probable ischemic colitis and now with rectal bleeding/ acute blood loss anemia Abdominal pain/gassiness/bloating, unspecified encourage oob ambulating and to chair, has been declining to sit in chair and ambulate KUB normal from 06/12/23 Simethicone prn, IV push pepcid Urinary retention (likely secondary to anesthesia/opiates) failed voiding trial x2 and hylton replaced continue Flomax 0.4mg daily will need urology f/u o/p Hypokalemia. likely due to decreased po intake Resolved with replacement Rectal bleeding/acute blood loss anemia likely due to ischemic colitis from hypotension AC on hold for now, discussed with GI 06/07, possible restart in one week seen by hematology, as unable to receive blood products ([employer]), s/p 4 doses of IV iron, one dose of procrit CTA abdomen/pelvis 06/06 with no extravasation to suggest site of GI bleeding HH has remained stable Ischemic Colitis seen by GI, underwent sigmoidoscopy 06/03 - c/w with healing ischemic colitis completed course of IV Levaquin/Flagyl trental on hold avoid low blood pressure general surgery following Pulmonary embolus CTA 05/28 with bilateral nonocclusive segmental pulmonary emboli (Filling defect identified within the right upper, right middle, right lower, left upper, and left lower pulmonary arterial branches) no respiratory symptoms, continues to remain on room air echo with no evidence of right heart strain therapeutic lovenox on hold due to rectal bleeding as above, consider restart 06/14 Left lower extremity ultrasound negative for DVT s/p IVC filter 06/07 OA s/p L TKA 05/25 PT Type 2 diabetes Continue SSI, lantus HTN continue lisinopril 20 mg metoprolol xl restarted 06/09, bp and HR still elevated, will increase to full home dose in am lasix, HCTZ, clonidine on hold, may consider restarting as BP allows verapamil d/c in ICU due to hypotension Hypothyroidism continue synthroid mood continue effexor obesity BMI 37.7 weight loss encouraged Attending Dr. Sumner SCD boots DISPO plan for dc home when medically clear, patient declining short term rehab Requires ongoing hospitalization secondary to the need for IV antibiotics to treat colitis and close monitoring of anemia Quality Stroke Does the patient have a stroke diagnosis?: No VTE Prior VTE?: No VTE Risk Level:: Surgical - very high VTE Device Contraindication: N/A - Device Ordered VTE Drug Contraindication: N/A - Med Ordered
[2023-06-14 11:16] LABS: Glucose, Whole Blood 259 mg/dL (60-115)
[2023-06-14 11:39] VITALS: BP 123/58; PULSE 88; RESP 20; TEMP 36.8; O2SAT 95
[2023-06-14] MEDS: Famotidine/PF 20 MG/2 ML VIAL IVPUSH ×2 (11:46→20:35)
[2023-06-14 12:28] LABS: Anion Gap 12 (12-20); Blood Urea Nitrogen 6 mg/dL (9-16); Calcium 7.6 mg/dL (8.4-10.2); Carbon Dioxide 25 mmol/L (22-29); Chloride 100 mmol/L (96-108); Creatinine Clr Calc Pharmacy 88.3; Estimated Glomerular Filt Rate > 60; Glucose Random 280 mg/dL (60-115); Potassium 3.9 mmol/L (3.3-5.1); Sodium 133 mmol/L (135-145)
[2023-06-14 13:13] LABS: Appearance Urine Turbid; Color Urine Yellow; Glucose Urine UA Negative (Negative); Leukocyte Esterase Urine Large (3+) (Negative); Nitrite Urine Negative (Negative); PH 7.5 (5.0-9.0); Specific Gravity - Urine <= 1.005 (1.005-1.025); UMIC TRIGGER UACC YES; Urine Blood Moderate (2+) (Negative); Urine Ketones Negative (Negative); Urine Protein 30 (1+) mg/dL (Neg-Trace)
[2023-06-14 13:31] LABS: Bacteria Urine 2+ (None Seen); Hyaline Casts Urine 0-2 /LPF (0-2); RBC Urine >20 /HPF (0-2); UACC Culture Trigger YES; WBC Urine >50 /HPF (0-5)
--- NOTE | 2023-06-14 14:13 | PM.PNGS ---
Subjective Subjective Date of Service: 06/14/23 Interval history: Patient still having a little abdominal pain but says feels little bit better. He is still having bowel movements yellow-brown stool no more bleeding and her H and H has been stable. She is hungry and wants to eat pasta Physical Exam Vital Signs: Vital Signs: Last Vital Signs Temp 98.2 F 06/14/23 11:39 Pulse 88 06/14/23 11:39 Resp 20 06/14/23 11:39 BP 123/58 L 06/14/23 11:39 Pulse Ox 95 06/14/23 11:39 O2 Del Method Room Air 06/14/23 11:39 O2 Flow Rate 96 06/06/23 06:26 FiO2 93 05/29/23 19:00 Oxygen Flow Rate 3 05/29/23 04:00 BMI result Body Mass Index 37.7 GI: Other: Lower abdomen is reaming machine tender mild guarding no rebound no peritoneal signs active bowel sounds Objective Data Active Medications Albuterol Sulfate (Albuterol Sulfate 90 Mcg 8 Gm Inhaler) 2 puff INHALE RQ4H PRN PRN Reason: Wheezing Clonidine HCl (Clonidine Hcl 0.2 Mg Tablet) 0.2 mg PO BEDTIME [facility]; Protocol Last Admin: 06/04/23 21:17 Dose: 0.2 mg Documented By: LO Cyanocobalamin (Cyanocobalamin (Vitamin B-12) 100 Mcg Tablet) 100 mcg PO DAILY [facility] Last Admin: 06/14/23 08:44 Dose: 100 mcg Documented By: CAR Dextrose (Dextrose 50 % 25 Gm/50 Ml Syringe) 25 gm IVPUSH Q15M PRN; Protocol PRN Reason: per Hypoglycemia Standing Ord. Famotidine (Famotidine/Pf 20 Mg/2 Ml Vial) 20 mg IVPUSH BID [facility] Last Admin: 06/14/23 11:46 Dose: 20 mg Documented By: CAR Folic Acid (Folic Acid 1 Mg Tablet) 1 mg PO DAILY [facility] Last Admin: 06/14/23 08:44 Dose: 1 mg Documented By: CAR Gabapentin (Gabapentin 100 Mg Capsule) 100 mg PO TID [facility] Last Admin: 06/14/23 08:43 Dose: 100 mg Documented By: CAR Glucose (Glucose Gel 15 Gm Gel..Gram.) 15 gm PO Q15M PRN; Protocol PRN Reason: per Hypoglycemia Standing Ord. Insulin Glargine (Insulin Glargine,Hum.Rec.Anlog 100 Unit/Ml 10 Ml Vial) 15 unit SUBCUT BEDTIME [facility] Last Admin: 06/13/23 21:17 Dose: 15 unit Documented By: RAMAKRISHNA Insulin Human Lispro (Insulin Lispro 100 Unit/Ml 3 Ml Vial) 0 unit SUBCUT QIDACHS [facility]; Protocol Last Admin: 06/14/23 11:46 Dose: 6 unit Documented By: CAR Levothyroxine Sodium (Levothyroxine Sodium 75 Mcg Tablet) 75 mcg PO DAILY@0600 [facility] Last Admin: 06/14/23 05:00 Dose: 75 mcg Documented By: RAMAKRISHNA Lidocaine (Lidocaine 4 % Patch Adh..Patch) 2 patch TRANSDERMA DAILY [facility]; Protocol Last Admin: 06/14/23 08:44 Dose: 2 patch Documented By: CAR Lisinopril (Lisinopril 40 Mg Tablet) 40 mg PO DAILY [facility]; Protocol Last Admin: 06/14/23 08:44 Dose: 40 mg Documented By: CAR Loperamide HCl (Loperamide Hcl 2 Mg Capsule) 4 mg PO Q6H [facility] Last Admin: 06/14/23 08:43 Dose: 4 mg Documented By: CAR Melatonin (Melatonin 3 Mg Tablet) 3 mg PO BEDTIME PRN PRN Reason: Insomnia Last Admin: 06/13/23 21:15 Dose: 3 mg Documented By: RAMAKRISHNA Metoprolol Succinate (Metoprolol Succinate Er 100 Mg Tab.Er.24h) 200 mg PO DAILY [facility]; Protocol Last Admin: 06/14/23 08:43 Dose: 200 mg Documented By: CAR Ondansetron HCl (Ondansetron Hcl 4 Mg/2 Ml Vial) 4 mg IVPUSH Q6H PRN PRN Reason: Nausea and Vomiting Last Admin: 06/09/23 10:33 Dose: 4 mg Documented By: RHONDA Oxycodone HCl (Oxycodone Hcl Immed Release 5 Mg Tablet) 5 mg PO Q4H PRN PRN Reason: Pain, Severe (Pain Scale 7-10) Last Admin: 06/14/23 08:42 Dose: 5 mg Documented By: CAR Pentoxifylline (Pentoxifylline Er 400 Mg Tablet.Er) 400 mg PO TID [facility] Last Admin: 06/07/23 10:11 Dose: Not Given Documented By: MAYCOL Non-Admin Reason: held Simethicone (Simethicone 80 Mg Tab.Chew) 80 mg PO QIDWMHS PRN PRN Reason: gas Tamsulosin HCl (Tamsulosin Hcl 0.4 Mg Capsule) 0.4 mg PO DAILY [facility] Last Admin: 06/14/23 08:44 Dose: 0.4 mg Documented By: CAR Venlafaxine HCl (Venlafaxine Hcl Er 150 Mg Cap.Er.24h) 150 mg PO DAILY [facility] Last Admin: 06/14/23 08:44 Dose: 150 mg Documented By: CAR Labs 06/14/23 07:11 06/14/23 07:11 Labs: Laboratory Results - last 24 hr 06/13/23 06/13/23 06/14/23 15:57 20:14 07:11 MCV 89.9 MCH 28.3 MCHC 31.5 RDW 21.4 H Plt Count 228 D MPV 8.8 L Absolute Nucleated RBC 0.450 H Nucleated RBC % (auto) 3.3 H Anion Gap 12 Estim Creat Clear Calc 88.3 Estimated GFR > 60 POC Glucose 221 H 190 H Random Glucose 280 H Calcium 7.6 L Urine Color Urine Appearance Urine pH Ur Specific [place] Urine Protein Urine Glucose (UA) Urine Ketones Urine Blood Urine Nitrite Ur Leukocyte Esterase Urine RBC Urine WBC Ur Squamous Epith Cells Urine Bacteria Hyaline Casts Urine Yeast 06/14/23 06/14/23 06/14/23 07:50 11:06 12:39 MCV MCH MCHC RDW Plt Count MPV Absolute Nucleated RBC Nucleated RBC % (auto) Anion Gap Estim Creat Clear Calc Estimated GFR POC Glucose 246 H 259 H Random Glucose Calcium Urine Color Yellow Urine Appearance Turbid Urine pH 7.5 Ur Specific [place] <= 1.005 Urine Protein 30 (1+) H Urine Glucose (UA) Negative Urine Ketones Negative Urine Blood Moderate (2+) H Urine Nitrite Negative Ur Leukocyte Esterase Large (3+) H Urine RBC >20 H Urine WBC >50 H Ur Squamous Epith Cells 3-5 Urine Bacteria 2+ Hyaline Casts 0-2 Urine Yeast Present Procedures Date of Service Date of Service: 06/14/23 Progress Note: A&P Assessment and plan (1) Colitis, infectious: Status: Acute Assessment and Plan: Patient status post episode of colitis question ischemic/inflammatory/infectious but doing better. H&H stable at this point not risk for ongoing blood loss that may necessitate any blood transfusions which he refuses to have because she has a Jehovah Witness. Passing stool no evidence of any obstruction passing flatus. Plan to advance her diet and okay to have a little passed out. We will follow along Time Spent With Patient Time: Total time managing care of this patient today ____ minutes. Quality Stroke Does the patient have a stroke diagnosis?: No VTE Prior VTE?: No VTE Risk Level:: Surgical - very high VTE Device Contraindication: N/A - Device Ordered VTE Drug Contraindication: N/A - Med Ordered
[2023-06-14 15:18] VITALS: BP 133/75; PULSE 95; RESP 20; TEMP 36.1; O2SAT 91
[2023-06-14 16:03] LABS: Glucose, Whole Blood 277 mg/dL (60-115)
[2023-06-14 16:52] VITALS: BMI 38.9
[2023-06-14 17:21] LABS: INTERNATIONAL NORM RATIO 1.2 (0.9-1.1); Prothrombin Time 14.3 SEC (11.1-13.3)
[2023-06-14 17:24] LABS: PTT Heparin Drip 28.7 SEC (53-77.9)
[2023-06-14] MEDS: Heparin Sodium,Porcine/1/2NS 25,000 UNIT/250 ML IV.SOLN 10 UNIT IVCONT (17:55)
[2023-06-14 19:06] VITALS: BP 117/57; PULSE 101; RESP 20; TEMP 36.8; O2SAT 91
[2023-06-14 19:45] LABS: Glucose, Whole Blood 261 mg/dL (60-115)
[2023-06-14] MEDS: Melatonin 3 MG TABLET PO (20:34)
[2023-06-14] MEDS: Insulin Glargine,Hum.rec.anlog 100 UNIT/ML 10 ML VIAL 20 UNIT SUBCUT (20:34)
[2023-06-14] MEDS: Simethicone 80 MG TAB.CHEW PO (20:48)
[2023-06-14 23:35] VITALS: BP 116/56; PULSE 91; RESP 19; TEMP 36.9; O2SAT 98
[2023-06-15 00:35] LABS: PTT Heparin Drip 57.2 SEC (53-77.9)
[2023-06-15] MEDS: oxyCODONE HCl Immed Release 5 MG TABLET PO ×4 (02:21→21:03)
[2023-06-15] MEDS: Loperamide HCl 2 MG CAPSULE 4 MG PO ×4 (02:21→21:03)
[2023-06-15 03:53] VITALS: BP 112/54; PULSE 90; RESP 20; TEMP 36.3; O2SAT 90
[2023-06-15] MEDS: Levothyroxine Sodium 75 MCG TABLET PO (06:37)
[2023-06-15 07:24] VITALS: BP 122/59; PULSE 85; RESP 20; TEMP 36.7; O2SAT 95
[2023-06-15 07:32] LABS: Hematocrit 25.3 % (37.0-47.0); Mean Corpuscular HGB Conc 31.6 g/dl (31.0-35.0); Mean Corpuscular Hemoglobin 28.6 pg (27.0-33.0); Mean Corpuscular Volume 90.4 fL (80.0-98.0); Mean Platelet Volume 9.4 fL (9.4-12.3); Platelet Count 218 X10*3/uL (160-400); Red Cell Distribution Width 20.9 % (11.0-16.0); White Blood Count 11.9 X10*3/uL (4.8-10.8)
[2023-06-15 07:33] LABS: Glucose, Whole Blood 228 mg/dL (60-115)
[2023-06-15 07:33] LABS: NRBC Pct Auto 1.5 /100WBC (0.0-0.2)
[2023-06-15 07:39] LABS: INTERNATIONAL NORM RATIO 1.2 (0.9-1.1); Prothrombin Time 14.9 SEC (11.1-13.3)
[2023-06-15 07:42] LABS: PTT Heparin Drip 53.5 SEC (53-77.9)
[2023-06-15] MEDS: Tamsulosin HCL 0.4 MG CAPSULE PO (07:52)
[2023-06-15] MEDS: Venlafaxine HCl ER 150 MG CAP.ER.24H PO (07:52)
[2023-06-15] MEDS: Metoprolol Succinate ER 100 MG TAB.ER.24H 200 MG PO (07:52)
[2023-06-15] MEDS: lisinopriL 40 MG TABLET PO (07:53)
[2023-06-15] MEDS: Insulin Lispro 100 UNIT/ML 3 ML VIAL SUBCUT ×4 (07:53→21:04)
[2023-06-15] MEDS: Folic Acid 1 MG TABLET PO (07:53)
[2023-06-15] MEDS: Cyanocobalamin (Vitamin B-12) 100 MCG TABLET PO (07:53)
[2023-06-15] MEDS: Gabapentin 100 MG CAPSULE PO ×3 (07:53→21:03)
[2023-06-15] MEDS: Famotidine/PF 20 MG/2 ML VIAL IVPUSH ×2 (07:54→21:03)
[2023-06-15] MEDS: Lidocaine 4 % Patch ADH..PATCH 2 PATCH TRANSDERMA (07:55)
[2023-06-15] MEDS: cefTRIAXone sodium 1 GM in 0.9 % Sodium Chloride 50 ML IV (08:41)
--- NOTE | 2023-06-15 10:53 | HO.PM.IMPN ---
Subjective Subjective Date of Service: 06/15/23 Interval History: seen and examined this morning follow up for colitis, PE, GI bleeding no further bleeding episodes no abdominal pain no nausea or vomiting Review of Systems Review of Systems: Yes all other systems are reviewed and are negative Constitutional Constitutional: Denies chills and Denies fever(s) Cardiovascular Cardiovascular: Denies chest pain, Denies palpitations and Denies dyspnea Respiratory Respiratory: Denies cough and Denies dyspnea Endocrine Endocrine: Denies palpitations Physical Exam Vital Signs: Vital Signs: Last Vital Signs Temp 98.1 F 06/15/23 07:24 Pulse 85 06/15/23 07:24 Resp 20 06/15/23 07:24 BP 122/59 L 06/15/23 07:24 Pulse Ox 95 06/15/23 07:24 O2 Del Method Room Air 06/15/23 07:24 O2 Flow Rate 96 06/06/23 06:26 FiO2 93 05/29/23 19:00 Oxygen Flow Rate 3 05/29/23 04:00 BMI result Body Mass Index 38.9 Appearing in no acute distress lung sounds are clear to auscultation heart regular rate rhythm, clear S1, S2 positive bowel sounds, abdomen is soft, nontender neuro patient is alert x3, no focal deficits Objective Data Active Medications Albuterol Sulfate (Albuterol Sulfate 90 Mcg 8 Gm Inhaler) 2 puff INHALE RQ4H PRN PRN Reason: Wheezing Clonidine HCl (Clonidine Hcl 0.2 Mg Tablet) 0.2 mg PO BEDTIME [facility]MER[facility], [facility]; Protocol Last Admin: 06/04/23 21:17 Dose: 0.2 mg Documented By: LO Cyanocobalamin (Cyanocobalamin (Vitamin B-12) 100 Mcg Tablet) 100 mcg PO DAILY [facility], [facility] Last Admin: 06/15/23 07:53 Dose: 100 mcg Documented By: CAR Dextrose (Dextrose 50 % 25 Gm/50 Ml Syringe) 25 gm IVPUSH Q15M PRN; Protocol PRN Reason: per Hypoglycemia Standing Ord. Famotidine (Famotidine/Pf 20 Mg/2 Ml Vial) 20 mg IVPUSH BID [facility], [facility] Last Admin: 06/15/23 07:54 Dose: 20 mg Documented By: CAR Folic Acid (Folic Acid 1 Mg Tablet) 1 mg PO DAILY [facility], [facility] Last Admin: 06/15/23 07:53 Dose: 1 mg Documented By: CAR Gabapentin (Gabapentin 100 Mg Capsule) 100 mg PO TID [facility], [facility] Last Admin: 06/15/23 07:53 Dose: 100 mg Documented By: CAR Glucose (Glucose Gel 15 Gm Gel..Gram.) 15 gm PO Q15M PRN; Protocol PRN Reason: per Hypoglycemia Standing Ord. Heparin Sodium (Porcine) (Heparin Sodium,Porcine 5,000 Unit/Ml Vial) 3,900 unit 40 unit/kg (3900 unit) IVPUSH PROTOCOL BOLUS PRN; Protocol PRN Reason: 40 unit/kg - Heparin Protocol Heparin Sodium (Porcine) (Heparin Sodium,Porcine 5,000 Unit/Ml Vial) 7,700 unit 80 unit/kg (7700 unit) IVPUSH PROTOCOL BOLUS PRN; Protocol PRN Reason: 80 unit/kg - Heparin Protocol Heparin Sodium/Sodium Chloride (Heparin Sodium,Porcine/1/2ns) 25,000 unit in 250 mls @ 0 mls/hr IVCONT .Q0M [facility], [facility]; Protocol Last Titration: 06/15/23 07:48 Dose: 10.35 units/kg/hr, 10 mls/hr Documented By: CAR Co-signed By: MARK ANTHONY Ceftriaxone Sodium 1 gm/ (Sodium Chloride) 50 mls @ 100 mls/hr IV Q24H [facility], [facility] Last Infusion: 06/15/23 09:11 Dose: Infused Documented By: CAR Insulin Glargine (Insulin Glargine,Hum.Rec.Anlog 100 Unit/Ml 10 Ml Vial) 20 unit SUBCUT BEDTIME [facility], [facility] Last Admin: 06/14/23 20:34 Dose: 20 unit Documented By: SHANEKA Insulin Human Lispro (Insulin Lispro 100 Unit/Ml 3 Ml Vial) 0 unit SUBCUT QIDACHS [facility], [facility]; Protocol Last Admin: 06/15/23 07:53 Dose: 4 unit Documented By: CAR Levothyroxine Sodium (Levothyroxine Sodium 75 Mcg Tablet) 75 mcg PO DAILY@0600 [facility], [facility] Last Admin: 06/15/23 06:37 Dose: 75 mcg Documented By: SHANEKA Lidocaine (Lidocaine 4 % Patch Adh..Patch) 2 patch TRANSDERMA DAILY [facility], [facility]; Protocol Last Admin: 06/15/23 07:55 Dose: 2 patch Documented By: CAR Lisinopril (Lisinopril 40 Mg Tablet) 40 mg PO DAILY [facility], [facility]; Protocol Last Admin: 06/15/23 07:53 Dose: 40 mg Documented By: CAR Loperamide HCl (Loperamide Hcl 2 Mg Capsule) 4 mg PO Q6H [facility], [facility] Last Admin: 06/15/23 08:40 Dose: 4 mg Documented By: CAR Melatonin (Melatonin 3 Mg Tablet) 3 mg PO BEDTIME PRN PRN Reason: Insomnia Last Admin: 06/14/23 20:34 Dose: 3 mg Documented By: SHANEKA Metoprolol Succinate (Metoprolol Succinate Er 100 Mg Tab.Er.24h) 200 mg PO DAILY [facility], [facility]; Protocol Last Admin: 06/15/23 07:52 Dose: 200 mg Documented By: CAR Ondansetron HCl (Ondansetron Hcl 4 Mg/2 Ml Vial) 4 mg IVPUSH Q6H PRN PRN Reason: Nausea and Vomiting Last Admin: 06/09/23 10:33 Dose: 4 mg Documented By: RHONDA Oxycodone HCl (Oxycodone Hcl Immed Release 5 Mg Tablet) 5 mg PO Q4H PRN PRN Reason: Pain, Severe (Pain Scale 7-10) Last Admin: 06/15/23 09:16 Dose: 5 mg Documented By: CAR Pentoxifylline (Pentoxifylline Er 400 Mg Tablet.Er) 400 mg PO TID [facility], [facility] Last Admin: 06/07/23 10:11 Dose: Not Given Documented By: MAYCOL Non-Admin Reason: held Simethicone (Simethicone 80 Mg Tab.Chew) 80 mg PO QIDWMHS PRN PRN Reason: gas Last Admin: 06/14/23 20:48 Dose: 80 mg Documented By: SHANEKA Tamsulosin HCl (Tamsulosin Hcl 0.4 Mg Capsule) 0.4 mg PO DAILY [facility], [facility] Last Admin: 06/15/23 07:52 Dose: 0.4 mg Documented By: CAR Venlafaxine HCl (Venlafaxine Hcl Er 150 Mg Cap.Er.24h) 150 mg PO DAILY [facility], [facility] Last Admin: 06/15/23 07:52 Dose: 150 mg Documented By: HO.PHANLYM Labs 06/15/23 07:13 06/14/23 07:11 Labs: Laboratory Results - last 24 hr 06/14/23 06/14/23 06/14/23 07:11 11:06 12:39 MCV MCH MCHC RDW Plt Count MPV Absolute Nucleated RBC Nucleated RBC % (auto) PT INR aPTT Heparin Protocol Anion Gap 12 Estim Creat Clear Calc 88.3 Estimated GFR > 60 POC Glucose 259 H Random Glucose 280 H Calcium 7.6 L Urine Color Yellow Urine Appearance Turbid Urine pH 7.5 Ur Specific [place] <= 1.005 Urine Protein 30 (1+) H Urine Glucose (UA) Negative Urine Ketones Negative Urine Blood Moderate (2+) H Urine Nitrite Negative Ur Leukocyte Esterase Large (3+) H Urine RBC >20 H Urine WBC >50 H Ur Squamous Epith Cells 3-5 Urine Bacteria 2+ Hyaline Casts 0-2 Urine Yeast Present 06/14/23 06/14/23 06/14/23 15:58 16:48 19:39 MCV MCH MCHC RDW Plt Count MPV Absolute Nucleated RBC Nucleated RBC % (auto) PT 14.3 H INR 1.2 H aPTT Heparin Protocol 28.7 L Anion Gap Estim Creat Clear Calc Estimated GFR POC Glucose 277 H 261 H Random Glucose Calcium Urine Color Urine Appearance Urine pH Ur Specific [place] Urine Protein Urine Glucose (UA) Urine Ketones Urine Blood Urine Nitrite Ur Leukocyte Esterase Urine RBC Urine WBC Ur Squamous Epith Cells Urine Bacteria Hyaline Casts Urine Yeast 06/15/23 06/15/23 06/15/23 00:22 07:13 07:26 MCV 90.4 MCH 28.6 MCHC 31.6 RDW 20.9 H Plt Count 218 MPV 9.4 Absolute Nucleated RBC 0.180 H Nucleated RBC % (auto) 1.5 H PT 14.9 H INR 1.2 H aPTT Heparin Protocol 57.2 D 53.5 Anion Gap Estim Creat Clear Calc Estimated GFR POC Glucose 228 H Random Glucose Calcium Urine Color Urine Appearance Urine pH Ur Specific [place] Urine Protein Urine Glucose (UA) Urine Ketones Urine Blood Urine Nitrite Ur Leukocyte Esterase Urine RBC Urine WBC Ur Squamous Epith Cells Urine Bacteria Hyaline Casts Urine Yeast Microbiology Microbiology Results: Microbiology 06/14/23 Unknown Urine Culture - Preliminary Urine clean catch - Urine cabrera top Culture in progress. Assessment and Plan (1) Acute blood loss anemia: Status: Acute (2) Ischemic colitis: Status: Acute (3) Pulmonary embolism: Status: Acute (4) Status post knee replacement: Status: Acute (5) Urinary retention: Status: Acute Plan 68 year old female with history of htn, asthma/copd overlap, type 2 diabetes, hld, gerd, who presented on 05/25 for elective Left TKA. She subsequently developed hypotention requiring ICU level of care [id number] and was diagnosed to have b/l segmental PE; hospital course further complicated by probable ischemic colitis and now with rectal bleeding/ acute blood loss anemia Pulmonary embolus CTA 05/28 with bilateral nonocclusive segmental pulmonary emboli no respiratory symptoms, continues to remain on room air echo with no evidence of right heart strain Left lower extremity ultrasound negative for DVT s/p IVC filter 06/07 started IV heparin 06/13 Abdominal pain/gassiness/bloating, unspecified improving encourage oob ambulating and to chair, has been declining to sit in chair and ambulate KUB normal from 06/12/23 Simethicone prn, IV push pepcid diet advanced to solid food, low fiber Urinary retention (likely secondary to anesthesia/opiates) failed voiding trial x2 and hylton replaced continue Flomax 0.4mg daily remove hylton for voiding trial today Hypokalemia. likely due to decreased po intake Resolved with replacement Rectal bleeding/acute blood loss anemia likely due to ischemic colitis from hypotension AC on hold for now, discussed with GI 06/07, possible restart in one week seen by hematology, as unable to receive blood products (Mosque), s/p 4 doses of IV iron, one dose of procrit CTA abdomen/pelvis 06/06 with no extravasation to suggest site of GI bleeding HH has remained stable Ischemic Colitis seen by GI, underwent sigmoidoscopy 06/03 - c/w with healing ischemic colitis completed course of IV Levaquin/Flagyl trental on hold avoid low blood pressure general surgery following OA s/p L TKA 05/25 PT Type 2 diabetes Continue SSI, lantus HTN continue lisinopril 20 mg metoprolol xl restarted 06/09 lasix, HCTZ, clonidine on hold, may consider restarting as BP allows verapamil d/c in ICU due to hypotension Hypothyroidism continue synthroid mood continue effexor obesity BMI 37.7 weight loss encouraged Attending Dr. Heard SCD boots DISPO plan for dc home when medically clear, patient declining short term rehab Requires ongoing hospitalization secondary to the need for IV antibiotics to treat colitis and close monitoring of anemia Quality Stroke Does the patient have a stroke diagnosis?: No VTE Prior VTE?: No VTE Risk Level:: Surgical - very high VTE Device Contraindication: N/A - Device Ordered VTE Drug Contraindication: N/A - Med Ordered
[2023-06-15 10:57] VITALS: BP 105/59; PULSE 87; RESP 20; TEMP 36.6; O2SAT 92
[2023-06-15 11:04] LABS: Glucose, Whole Blood 234 mg/dL (60-115)
--- NOTE | 2023-06-15 11:21 | PC.NURSE ---
per provider order, hylton was removed at 11:20 for voiding trial. pt is due to void at 17:20-19:20
--- NOTE | 2023-06-15 11:31 | MHC.CLN ---
F/U DIET ADVANCED TO 1800DM LOW FIBER PO INTAKE VARIABLE RANGING FROM 25-100% KUB -WNL PER MD PT WITH INCREASED NUTRITION RISK R/T PROLONGED NPO STATUS RECOMMEND ADDING ENSURE MAX BID TO PROVIDE 300KCALS, 60G PROTEIN MONITOR PO INTAKE AND ENCOURAGE SUPPLEMENTS
[2023-06-15 15:01] VITALS: BP 136/57; PULSE 99; RESP 20; TEMP 36.1; O2SAT 94
[2023-06-15 16:02] LABS: Glucose, Whole Blood 208 mg/dL (60-115)
--- NOTE | 2023-06-15 16:10 | MHC.CM.PN ---
Pt. is not ready for DC, she requires continued treatment with IV ABX, and close monitoring of Anemia. Pt has declined to go to [facility]. CM will follow and assist as needed with DC.
--- NOTE | 2023-06-15 16:26 | PM.PNGS ---
Subjective Subjective Date of Service: 06/15/23 Interval history: Says she continues to feel better Good flatus BMs Denies significant blood per rectum Tolerating diet Physical Exam Vital Signs: Vital Signs: Last Vital Signs Temp 96.9 F 06/15/23 15:01 Pulse 99 06/15/23 15:01 Resp 20 06/15/23 15:01 BP 136/57 L 06/15/23 15:01 Pulse Ox 94 06/15/23 15:01 O2 Del Method Room Air 06/15/23 15:01 O2 Flow Rate 96 06/06/23 06:26 FiO2 93 05/29/23 19:00 Oxygen Flow Rate 3 05/29/23 04:00 BMI result Body Mass Index 38.9 Const: General: comfortable and no acute distress Resp: Effort & Inspection: normal respiratory effort Cardio: Rate: regular rate GI: Palpation (GI): Soft to palpation, not firm and nontender Objective Data Active Medications Albuterol Sulfate (Albuterol Sulfate 90 Mcg 8 Gm Inhaler) 2 puff INHALE RQ4H PRN PRN Reason: Wheezing Clonidine HCl (Clonidine Hcl 0.2 Mg Tablet) 0.2 mg PO BEDTIME [facility]; Protocol Last Admin: 06/04/23 21:17 Dose: 0.2 mg Documented By: LO Cyanocobalamin (Cyanocobalamin (Vitamin B-12) 100 Mcg Tablet) 100 mcg PO DAILY [facility] Last Admin: 06/15/23 07:53 Dose: 100 mcg Documented By: CAR Dextrose (Dextrose 50 % 25 Gm/50 Ml Syringe) 25 gm IVPUSH Q15M PRN; Protocol PRN Reason: per Hypoglycemia Standing Ord. Famotidine (Famotidine/Pf 20 Mg/2 Ml Vial) 20 mg IVPUSH BID [facility] Last Admin: 06/15/23 07:54 Dose: 20 mg Documented By: CAR Folic Acid (Folic Acid 1 Mg Tablet) 1 mg PO DAILY [facility] Last Admin: 06/15/23 07:53 Dose: 1 mg Documented By: CAR Gabapentin (Gabapentin 100 Mg Capsule) 100 mg PO TID [facility] Last Admin: 06/15/23 15:39 Dose: 100 mg Documented By: CAR Glucose (Glucose Gel 15 Gm Gel..Gram.) 15 gm PO Q15M PRN; Protocol PRN Reason: per Hypoglycemia Standing Ord. Heparin Sodium (Porcine) (Heparin Sodium,Porcine 5,000 Unit/Ml Vial) 3,900 unit 40 unit/kg (3900 unit) IVPUSH PROTOCOL BOLUS PRN; Protocol PRN Reason: 40 unit/kg - Heparin Protocol Heparin Sodium (Porcine) (Heparin Sodium,Porcine 5,000 Unit/Ml Vial) 7,700 unit 80 unit/kg (7700 unit) IVPUSH PROTOCOL BOLUS PRN; Protocol PRN Reason: 80 unit/kg - Heparin Protocol Heparin Sodium/Sodium Chloride (Heparin Sodium,Porcine/1/2ns) 25,000 unit in 250 mls @ 0 mls/hr IVCONT .Q0M [facility]; Protocol Last Titration: 06/15/23 07:48 Dose: 10.35 units/kg/hr, 10 mls/hr Documented By: CAR Co-signed By: MARK ANTHONY Ceftriaxone Sodium 1 gm/ (Sodium Chloride) 50 mls @ 100 mls/hr IV Q24H [facility] Last Infusion: 06/15/23 09:11 Dose: Infused Documented By: CAR Insulin Glargine (Insulin Glargine,Hum.Rec.Anlog 100 Unit/Ml 10 Ml Vial) 20 unit SUBCUT BEDTIME [facility] Last Admin: 06/14/23 20:34 Dose: 20 unit Documented By: SHANEKA Insulin Human Lispro (Insulin Lispro 100 Unit/Ml 3 Ml Vial) 0 unit SUBCUT QIDACHS [facility]; Protocol Last Admin: 06/15/23 12:24 Dose: 4 unit Documented By: CAR Levothyroxine Sodium (Levothyroxine Sodium 75 Mcg Tablet) 75 mcg PO DAILY@0600 [facility] Last Admin: 06/15/23 06:37 Dose: 75 mcg Documented By: SHANEKA Lidocaine (Lidocaine 4 % Patch Adh..Patch) 2 patch TRANSDERMA DAILY [facility]; Protocol Last Admin: 06/15/23 07:55 Dose: 2 patch Documented By: CAR Lisinopril (Lisinopril 40 Mg Tablet) 40 mg PO DAILY [facility]; Protocol Last Admin: 06/15/23 07:53 Dose: 40 mg Documented By: CAR Loperamide HCl (Loperamide Hcl 2 Mg Capsule) 4 mg PO Q6H [facility] Last Admin: 06/15/23 15:39 Dose: 4 mg Documented By: CAR Melatonin (Melatonin 3 Mg Tablet) 3 mg PO BEDTIME PRN PRN Reason: Insomnia Last Admin: 06/14/23 20:34 Dose: 3 mg Documented By: SHANEKA Metoprolol Succinate (Metoprolol Succinate Er 100 Mg Tab.Er.24h) 200 mg PO DAILY [facility]; Protocol Last Admin: 06/15/23 07:52 Dose: 200 mg Documented By: CAR Ondansetron HCl (Ondansetron Hcl 4 Mg/2 Ml Vial) 4 mg IVPUSH Q6H PRN PRN Reason: Nausea and Vomiting Last Admin: 06/09/23 10:33 Dose: 4 mg Documented By: RIOSCEL Oxycodone HCl (Oxycodone Hcl Immed Release 5 Mg Tablet) 5 mg PO Q4H PRN PRN Reason: Pain, Severe (Pain Scale 7-10) Last Admin: 06/15/23 13:20 Dose: 5 mg Documented By: CAR Pentoxifylline (Pentoxifylline Er 400 Mg Tablet.Er) 400 mg PO TID [facility] Last Admin: 06/07/23 10:11 Dose: Not Given Documented By: MAYCOL Non-Admin Reason: held Simethicone (Simethicone 80 Mg Tab.Chew) 80 mg PO QIDWMHS PRN PRN Reason: gas Last Admin: 06/14/23 20:48 Dose: 80 mg Documented By: SHANEKA Tamsulosin HCl (Tamsulosin Hcl 0.4 Mg Capsule) 0.4 mg PO DAILY [facility] Last Admin: 06/15/23 07:52 Dose: 0.4 mg Documented By: CAR Venlafaxine HCl (Venlafaxine Hcl Er 150 Mg Cap.Er.24h) 150 mg PO DAILY [facility] Last Admin: 06/15/23 07:52 Dose: 150 mg Documented By: CAR Labs 06/15/23 07:13 06/14/23 07:11 Labs: Laboratory Results - last 24 hr 06/14/23 06/14/23 06/15/23 16:48 19:39 00:22 MCV MCH MCHC RDW Plt Count MPV Absolute Nucleated RBC Nucleated RBC % (auto) PT 14.3 H INR 1.2 H aPTT Heparin Protocol 28.7 L 57.2 D POC Glucose 261 H 06/15/23 06/15/23 06/15/23 07:13 07:26 10:58 MCV 90.4 MCH 28.6 MCHC 31.6 RDW 20.9 H Plt Count 218 MPV 9.4 Absolute Nucleated RBC 0.180 H Nucleated RBC % (auto) 1.5 H PT 14.9 H INR 1.2 H aPTT Heparin Protocol 53.5 POC Glucose 228 H 234 H 06/15/23 15:54 MCV MCH MCHC RDW Plt Count MPV Absolute Nucleated RBC Nucleated RBC % (auto) PT INR aPTT Heparin Protocol POC Glucose 208 H Microbiology Microbiology Results: Microbiology 06/14/23 Unknown Urine Culture - Preliminary Urine clean catch - Urine cabrera top Culture in progress. Procedures Date of Service Date of Service: 06/15/23 Progress Note: A&P Assessment and plan (1) Ischemic colitis: Status: Acute Assessment and Plan: Continues to improve Tolerating diet now Started on heparin drip for anticoagulation No further bleeding Encouraged to ambulate more and get out of bed more Time Spent With Patient Time: Total time managing care of this patient today ____ minutes. Quality Stroke Does the patient have a stroke diagnosis?: No VTE Prior VTE?: No VTE Risk Level:: Surgical - very high VTE Device Contraindication: N/A - Device Ordered VTE Drug Contraindication: N/A - Med Ordered
[2023-06-15 20:00] VITALS: BP 141/64; PULSE 88; RESP 19; TEMP 37.8; O2SAT 98
[2023-06-15 20:54] LABS: Glucose, Whole Blood 181 mg/dL (60-115)
[2023-06-15] MEDS: Apixaban 5 MG TABLET 10 MG PO (21:03)
[2023-06-15] MEDS: Melatonin 3 MG TABLET PO (21:04)
[2023-06-15] MEDS: Simethicone 80 MG TAB.CHEW PO (21:04)
[2023-06-15] MEDS: Insulin Glargine,Hum.rec.anlog 100 UNIT/ML 10 ML VIAL 20 UNIT SUBCUT (21:04)
[2023-06-15 23:29] VITALS: BP 115/56; PULSE 89; RESP 19; TEMP 37.2; O2SAT 94
[2023-06-16 04:00] VITALS: BP 121/56; PULSE 90; RESP 19; TEMP 37.4; O2SAT 96
[2023-06-16] MEDS: Loperamide HCl 2 MG CAPSULE 4 MG PO ×4 (04:22→20:48)
[2023-06-16] MEDS: oxyCODONE HCl Immed Release 5 MG TABLET PO ×3 (04:22→20:48)
[2023-06-16 06:25] LABS: Hematocrit 25.1 % (37.0-47.0); Hemoglobin 7.7 g/dl (12.0-16.0); Mean Corpuscular HGB Conc 30.7 g/dl (31.0-35.0); Mean Corpuscular Hemoglobin 27.8 pg (27.0-33.0); Mean Corpuscular Volume 90.6 fL (80.0-98.0); Mean Platelet Volume 9.5 fL (9.4-12.3); Platelet Count 225 X10*3/uL (160-400); Red Blood Count 2.77 X10*6/uL (4.20-5.50); Red Cell Distribution Width 19.9 % (11.0-16.0); White Blood Count 8.6 X10*3/uL (4.8-10.8)
[2023-06-16] MEDS: Levothyroxine Sodium 75 MCG TABLET PO (06:33)
[2023-06-16 06:34] LABS: NRBC Pct Auto 1.2 /100WBC (0.0-0.2)
[2023-06-16 07:05] LABS: Glucose, Whole Blood 149 mg/dL (60-115)
[2023-06-16 07:35] VITALS: BP 100/55; PULSE 85; RESP 20; TEMP 36.7; O2SAT 95
[2023-06-16] MEDS: Tamsulosin HCL 0.4 MG CAPSULE PO (08:16)
[2023-06-16] MEDS: Venlafaxine HCl ER 150 MG CAP.ER.24H PO (08:16)
[2023-06-16] MEDS: lisinopriL 40 MG TABLET PO (08:17)
[2023-06-16] MEDS: Metoprolol Succinate ER 100 MG TAB.ER.24H 200 MG PO (08:17)
[2023-06-16] MEDS: Apixaban 5 MG TABLET 10 MG PO (08:18)
[2023-06-16] MEDS: Gabapentin 100 MG CAPSULE PO ×3 (08:18→20:48)
[2023-06-16] MEDS: Cyanocobalamin (Vitamin B-12) 100 MCG TABLET PO (08:19)
[2023-06-16] MEDS: Folic Acid 1 MG TABLET PO (08:19)
[2023-06-16] MEDS: Famotidine/PF 20 MG/2 ML VIAL IVPUSH ×2 (08:19→20:51)
[2023-06-16] MEDS: Lidocaine 4 % Patch ADH..PATCH 2 PATCH TRANSDERMA (08:20)
[2023-06-16] MEDS: cefTRIAXone sodium 1 GM in 0.9 % Sodium Chloride 50 ML IV (08:20)
[2023-06-16 09:10] LABS: PTT Heparin Drip 33.3 SEC (53-77.9)
--- NOTE | 2023-06-16 09:22 | HO.PM.IMPN ---
Subjective Subjective Date of Service: 06/16/23 Interval History: seen and examined this morning follow up for colitis, PE, GI bleeding no further bleeding episodes no abdominal pain no nausea or vomiting Review of Systems Review of Systems: Yes all other systems are reviewed and are negative Constitutional Constitutional: Denies chills and Denies fever(s) Cardiovascular Cardiovascular: Denies chest pain, Denies palpitations and Denies dyspnea Respiratory Respiratory: Denies cough and Denies dyspnea Endocrine Endocrine: Denies palpitations Physical Exam Vital Signs: Vital Signs: Last Vital Signs Temp 98.1 F 06/16/23 07:35 Pulse 85 06/16/23 07:35 Resp 20 06/16/23 07:35 BP 100/55 L 06/16/23 07:35 Pulse Ox 95 06/16/23 07:35 O2 Del Method Room Air 06/16/23 07:35 O2 Flow Rate 96 06/06/23 06:26 FiO2 93 05/29/23 19:00 Oxygen Flow Rate 3 05/29/23 04:00 BMI result Body Mass Index 38.9 Appearing in no acute distress lung sounds are clear to auscultation heart regular rate rhythm, clear S1, S2 positive bowel sounds, abdomen is soft, nontender neuro patient is alert x3, no focal deficits Objective Data Active Medications Albuterol Sulfate (Albuterol Sulfate 90 Mcg 8 Gm Inhaler) 2 puff INHALE RQ4H PRN PRN Reason: Wheezing Apixaban (Apixaban 5 Mg Tablet) 10 mg PO BID [facility] Stop: 06/22/23 09:01 Last Admin: 06/16/23 08:18 Dose: 10 mg Documented By: SRI Clonidine HCl (Clonidine Hcl 0.2 Mg Tablet) 0.2 mg PO BEDTIME [facility]; Protocol Last Admin: 06/04/23 21:17 Dose: 0.2 mg Documented By: LO Cyanocobalamin (Cyanocobalamin (Vitamin B-12) 100 Mcg Tablet) 100 mcg PO DAILY [facility] Last Admin: 06/16/23 08:19 Dose: 100 mcg Documented By: SRI Dextrose (Dextrose 50 % 25 Gm/50 Ml Syringe) 25 gm IVPUSH Q15M PRN; Protocol PRN Reason: per Hypoglycemia Standing Ord. Famotidine (Famotidine/Pf 20 Mg/2 Ml Vial) 20 mg IVPUSH BID [facility] Last Admin: 06/16/23 08:19 Dose: 20 mg Documented By: SRI Folic Acid (Folic Acid 1 Mg Tablet) 1 mg PO DAILY [facility] Last Admin: 06/16/23 08:19 Dose: 1 mg Documented By: SRI Gabapentin (Gabapentin 100 Mg Capsule) 100 mg PO TID [facility] Last Admin: 06/16/23 08:18 Dose: 100 mg Documented By: SRI Glucose (Glucose Gel 15 Gm Gel..Gram.) 15 gm PO Q15M PRN; Protocol PRN Reason: per Hypoglycemia Standing Ord. Heparin Sodium (Porcine) (Heparin Sodium,Porcine 5,000 Unit/Ml Vial) 3,900 unit 40 unit/kg (3900 unit) IVPUSH PROTOCOL BOLUS PRN; Protocol PRN Reason: 40 unit/kg - Heparin Protocol Heparin Sodium (Porcine) (Heparin Sodium,Porcine 5,000 Unit/Ml Vial) 7,700 unit 80 unit/kg (7700 unit) IVPUSH PROTOCOL BOLUS PRN; Protocol PRN Reason: 80 unit/kg - Heparin Protocol Ceftriaxone Sodium 1 gm/ (Sodium Chloride) 50 mls @ 100 mls/hr IV Q24H [facility] Last Infusion: 06/16/23 09:20 Dose: Infused Documented By: SRI Insulin Glargine (Insulin Glargine,Hum.Rec.Anlog 100 Unit/Ml 10 Ml Vial) 20 unit SUBCUT BEDTIME [facility] Last Admin: 06/15/23 21:04 Dose: 20 unit Documented By: SHANEKA Insulin Human Lispro (Insulin Lispro 100 Unit/Ml 3 Ml Vial) 0 unit SUBCUT QIDACHS [facility]; Protocol Last Admin: 06/16/23 07:59 Dose: Not Given Documented By: SRI Non-Admin Reason: No Insulin Coverage Levothyroxine Sodium (Levothyroxine Sodium 75 Mcg Tablet) 75 mcg PO DAILY@0600 [facility] Last Admin: 06/16/23 06:33 Dose: 75 mcg Documented By: SHANEKA Lidocaine (Lidocaine 4 % Patch Adh..Patch) 2 patch TRANSDERMA DAILY [facility]; Protocol Last Admin: 06/16/23 08:20 Dose: 2 patch Documented By: SRI Lisinopril (Lisinopril 40 Mg Tablet) 40 mg PO DAILY [facility]; Protocol Last Admin: 06/16/23 08:17 Dose: 40 mg Documented By: SRI Loperamide HCl (Loperamide Hcl 2 Mg Capsule) 4 mg PO Q6H [facility] Last Admin: 06/16/23 04:22 Dose: 4 mg Documented By: SHANEKA Melatonin (Melatonin 3 Mg Tablet) 3 mg PO BEDTIME PRN PRN Reason: Insomnia Last Admin: 06/15/23 21:04 Dose: 3 mg Documented By: SHANEKA Metoprolol Succinate (Metoprolol Succinate Er 100 Mg Tab.Er.24h) 200 mg PO DAILY [facility]; Protocol Last Admin: 06/16/23 08:17 Dose: 200 mg Documented By: SRI Ondansetron HCl (Ondansetron Hcl 4 Mg/2 Ml Vial) 4 mg IVPUSH Q6H PRN PRN Reason: Nausea and Vomiting Last Admin: 06/09/23 10:33 Dose: 4 mg Documented By: RIOSCDOMENIC Oxycodone HCl (Oxycodone Hcl Immed Release 5 Mg Tablet) 5 mg PO Q4H PRN PRN Reason: Pain, Severe (Pain Scale 7-10) Last Admin: 06/16/23 08:18 Dose: 5 mg Documented By: SRI Pentoxifylline (Pentoxifylline Er 400 Mg Tablet.Er) 400 mg PO TID [facility] Last Admin: 06/07/23 10:11 Dose: Not Given Documented By: MAYCOL Non-Admin Reason: held Simethicone (Simethicone 80 Mg Tab.Chew) 80 mg PO QIDWMHS PRN PRN Reason: gas Last Admin: 06/15/23 21:04 Dose: 80 mg Documented By: SHANEKA Tamsulosin HCl (Tamsulosin Hcl 0.4 Mg Capsule) 0.4 mg PO DAILY [facility] Last Admin: 06/16/23 08:16 Dose: 0.4 mg Documented By: SRI Venlafaxine HCl (Venlafaxine Hcl Er 150 Mg Cap.Er.24h) 150 mg PO DAILY [facility] Last Admin: 06/16/23 08:16 Dose: 150 mg Documented By: SRI Labs 06/16/23 05:57 06/14/23 07:11 Labs: Laboratory Results - last 24 hr 06/15/23 06/15/23 06/15/23 10:58 15:54 20:28 MCV MCH MCHC RDW Plt Count MPV Absolute Nucleated RBC Nucleated RBC % (auto) aPTT Heparin Protocol POC Glucose 234 H 208 H 181 H 06/16/23 06/16/23 05:57 07:03 MCV 90.6 MCH 27.8 MCHC 30.7 L RDW 19.9 H Plt Count 225 MPV 9.5 Absolute Nucleated RBC 0.100 H Nucleated RBC % (auto) 1.2 H aPTT Heparin Protocol 33.3 L D POC Glucose 149 H Microbiology Microbiology Results: Microbiology 06/14/23 Unknown Urine Culture - Preliminary Urine clean catch - Urine cabrera top Culture in progress. Assessment and Plan (1) Acute blood loss anemia: Status: Acute (2) Ischemic colitis: Status: Acute (3) Pulmonary embolism: Status: Acute (4) Status post knee replacement: Status: Acute (5) Urinary retention: Status: Acute Plan 68 year old female with history of htn, asthma/copd overlap, type 2 diabetes, hld, gerd, who presented on 05/25 for elective Left TKA. She subsequently developed hypotention requiring ICU level of care [id number]/[phone] and was diagnosed to have b/l segmental PE; hospital course further complicated by probable ischemic colitis and now with rectal bleeding/ acute blood loss anemia UTI started IV rocephin likely from hylton placement, has since been removed follow final cx Pulmonary embolus CTA 05/28 with bilateral nonocclusive segmental pulmonary emboli no respiratory symptoms, continues to remain on room air echo with no evidence of right heart strain Left lower extremity ultrasound negative for DVT s/p IVC filter 06/07 started IV heparin 06/13, transitioned to eliquis 06/15/23 Rectal bleeding/acute blood loss anemia likely due to ischemic colitis from hypotension AC was hold for 7 days, restarted 06/14/23 with IV heparin seen by hematology, as unable to receive blood products ([employer]ational), s/p 4 doses of IV iron, one dose of procrit CTA abdomen/pelvis 06/06 with no extravasation to suggest site of GI bleeding HH has remained stable Abdominal pain/gassiness/bloating, unspecified. Resolved encourage oob ambulating and to chair Simethicone prn, IV push pepcid diet advanced to solid food, low fiber Urinary retention (likely secondary to anesthesia/opiates). Resolved failed voiding trial x2 and hylton replaced continue Flomax 0.4mg daily hylton removed again 06/16/23, urinating on her own Hypokalemia. Resolved likely due to decreased po intake Resolved with replacement Ischemic Colitis seen by GI, underwent sigmoidoscopy 06/03 - c/w with healing ischemic colitis completed course of IV Levaquin/Flagyl trental on hold avoid low blood pressure general surgery following OA s/p L TKA 05/25 PT Type 2 diabetes Continue SSI, lantus HTN Lisinopril 20mg , metoprolol xl restarted 06/09 lasix, HCTZ, clonidine on hold, may consider restarting as BP allows verapamil d/c in ICU due to hypotension Hypothyroidism continue synthroid mood continue effexor obesity BMI 39.0 weight loss encouraged Attending Dr. Heard DVT prophylaxis Jazmin DISPO plan for dc home when medically clear, patient declining short term rehab Requires ongoing hospitalization secondary to the need for IV antibiotics to treat colitis and close monitoring of anemia Quality Stroke Does the patient have a stroke diagnosis?: No VTE Prior VTE?: No VTE Risk Level:: Surgical - very high VTE Device Contraindication: N/A - Device Ordered VTE Drug Contraindication: N/A - Med Ordered
[2023-06-16 11:18] LABS: Glucose, Whole Blood 200 mg/dL (60-115)
[2023-06-16 11:27] VITALS: BP 142/64; PULSE 90; RESP 20; TEMP 36.7; O2SAT 96
[2023-06-16] MEDS: Insulin Lispro 100 UNIT/ML 3 ML VIAL SUBCUT ×3 (12:10→20:49)
--- NOTE | 2023-06-16 13:22 | PM.HEMONCPN ---
Medical Summary - Medical Summary Date of Service: 06/16/23 Chief complaint: Abdominal discomfort Primary Care Provider: Breanna Zamudio NP Interval History Interval history: Lois Dalton is a 68 year old female with past medical history significant for COPD/asthma, type 2 diabetes mellitus and GERD who was admitted to orthopedic surgery for left total knee arthroplasty which was performed 05/26/2023. Two days postoperatively on 05/28/2023, patient was noted to have altered mental status. She was given naloxone and her dose of opioid analgesics was decreased. On 05/28/2021 patient was again found to be lethargic and found to be hypotensive, she was transferred to the ICU and was briefly on pressors. She was found to have acute kidney injury with a creatinine of 1.72 which responded to IV fluids. On 05/28, she also underwent CT angiogram because of hypoxemia, this revealed bilateral segmental pulmonary emboli and she was started on Lovenox 1 per kilos b.i.d.. Left lower extremity Doppler was negative for DVT. She started to develop intermittent diarrhea, stool for C diff was negative. She also developed lower abdominal pain, she had sigmoidoscopy on 06/03 which revealed ischemic colitis. She has been off anticoagulation because of rectal bleeding. She denies any pleuritic chest pain, shortness of breath or cough. Review of Systems - Neurologic Reports no additional neurologic complaints, Reports hearing normal, Denies abnormal gait, Denies dizziness, Denies focal weakness, Denies convulsions [facility] Medical History: Medical History (Last Reviewed 06/05/23 @ 15:44 by Paco Hernandez MD) Asthma BMI 35.0-35.9,adult Cervical cancer Chronic restrictive lung disease Colitis, infectious Cough due to SHANELLE inhibitor Depression with anxiety Diabetes mellitus with hyperglycemia Eosinophilia Erosive gastritis Essential hypertension Fibromyalgia GERD (gastroesophageal reflux disease) Meir's disease HTN (hypertension) Hyperlipidemia LDL goal <100 Hyperparathyroidism Leg edema, left Multinodular thyroid Obesity (BMI 30.0-34.9) Osteoarthritis of left knee Osteopenia Other obesity due to excess calories Other specified acquired hypothyroidism Skin lesion of chest wall T2DM (type 2 diabetes mellitus) Thyroid nodule Type 2 diabetes mellitus with diabetic polyneuropathy Vitamin B12 deficiency Vitamin D deficiency Family History: Family History (Last Reviewed 06/05/23 @ 15:44 by Paco Hernandez MD) Father CVD (cardiovascular disease) Diabetes mellitus Stroke Mother Stroke Diabetes mellitus Breast cancer Hyperthyroidism Surgical History: Surgical History (Last Reviewed 06/05/23 @ 15:44 by Paco Hernandez MD) History of arthroplasty of right knee History of bilateral carpal tunnel release History of cholecystectomy History of esophagogastroduodenoscopy (EGD) Hx of arthroscopic knee surgery Hx of bilateral oophorectomy Hx of colonoscopy Hx of elbow surgery Hx of foot surgery Hx of hand surgery Hx of hysterectomy Social History: Social History (Last Reviewed 06/05/23 @ 15:44 by Paco Hernandez MD) Living Situation History: Household Members: Spouse Housing: House Housing Other:: 2nd floor-2 family house Are you a primary administrator health care facility to a significant other at home: No Do you presently have visiting nurse or other home services: Yes Do you presently have visiting nurse or other home services comment: [employer] Tobacco History: Patient Tobacco Use Status: Never used Tobacco Occupation Assessmet: service: No 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al status: disabled 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: Right Handed Home Medications and Allergies Current Medications: Current Medications Albuterol Sulfate (Albuterol Sulfate 90 Mcg 8 Gm Inhaler) 2 puff INHALE RQ4H PRN PRN Reason: Wheezing Clonidine HCl (Clonidine Hcl 0.2 Mg Tablet) 0.2 mg PO BEDTIME [facility]; Protocol Last Admin: 06/04/23 21:17 Dose: 0.2 mg Cyanocobalamin (Cyanocobalamin (Vitamin B-12) 100 Mcg Tablet) 100 mcg PO DAILY [facility] Last Admin: 06/16/23 08:19 Dose: 100 mcg Dextrose (Dextrose 50 % 25 Gm/50 Ml Syringe) 25 gm IVPUSH Q15M PRN; Protocol PRN Reason: per Hypoglycemia Standing Ord. Famotidine (Famotidine/Pf 20 Mg/2 Ml Vial) 20 mg IVPUSH BID [facility] Last Admin: 06/16/23 08:19 Dose: 20 mg Folic Acid (Folic Acid 1 Mg Tablet) 1 mg PO DAILY [facility] Last Admin: 06/16/23 08:19 Dose: 1 mg Gabapentin (Gabapentin 100 Mg Capsule) 100 mg PO TID [facility] Last Admin: 06/16/23 08:18 Dose: 100 mg Glucose (Glucose Gel 15 Gm Gel..Gram.) 15 gm PO Q15M PRN; Protocol PRN Reason: per Hypoglycemia Standing Ord. Heparin Sodium (Porcine) (Heparin Sodium,Porcine 5,000 Unit/Ml Vial) 3,900 unit 40 unit/kg (3900 unit) IVPUSH PROTOCOL BOLUS PRN; Protocol PRN Reason: 40 unit/kg - Heparin Protocol Heparin Sodium (Porcine) (Heparin Sodium,Porcine 5,000 Unit/Ml Vial) 7,700 unit 80 unit/kg (7700 unit) IVPUSH PROTOCOL BOLUS PRN; Protocol PRN Reason: 80 unit/kg - Heparin Protocol Ceftriaxone Sodium 1 gm/ (Sodium Chloride) 50 mls @ 100 mls/hr IV Q24H [facility] Last Infusion: 06/16/23 09:20 Dose: Infused Insulin Glargine (Insulin Glargine,Hum.Rec.Anlog 100 Unit/Ml 10 Ml Vial) 20 unit SUBCUT BEDTIME [facility] Last Admin: 06/15/23 21:04 Dose: 20 unit Insulin Human Lispro (Insulin Lispro 100 Unit/Ml 3 Ml Vial) 0 unit SUBCUT QIDACHS [facility]; Protocol Last Admin: 06/16/23 12:10 Dose: 2 unit Levothyroxine Sodium (Levothyroxine Sodium 75 Mcg Tablet) 75 mcg PO DAILY@0600 [facility] Last Admin: 06/16/23 06:33 Dose: 75 mcg Lidocaine (Lidocaine 4 % Patch Adh..Patch) 2 patch TRANSDERMA DAILY [facility]; Protocol Last Admin: 06/16/23 08:20 Dose: 2 patch Lisinopril (Lisinopril 20 Mg Tablet) 20 mg PO DAILY [facility]; Protocol Loperamide HCl (Loperamide Hcl 2 Mg Capsule) 4 mg PO Q6H [facility] Last Admin: 06/16/23 12:09 Dose: 4 mg Melatonin (Melatonin 3 Mg Tablet) 3 mg PO BEDTIME PRN PRN Reason: Insomnia Last Admin: 06/15/23 21:04 Dose: 3 mg Metoprolol Succinate (Metoprolol Succinate Er 100 Mg Tab.Er.24h) 200 mg PO DAILY [facility]; Protocol Last Admin: 06/16/23 08:17 Dose: 200 mg Ondansetron HCl (Ondansetron Hcl 4 Mg/2 Ml Vial) 4 mg IVPUSH Q6H PRN PRN Reason: Nausea and Vomiting Last Admin: 06/09/23 10:33 Dose: 4 mg Oxycodone HCl (Oxycodone Hcl Immed Release 5 Mg Tablet) 5 mg PO Q4H PRN PRN Reason: Pain, Severe (Pain Scale 7-10) Last Admin: 06/16/23 08:18 Dose: 5 mg Pentoxifylline (Pentoxifylline Er 400 Mg Tablet.Er) 400 mg PO TID [facility] Last Admin: 06/07/23 10:11 Dose: Not Given Simethicone (Simethicone 80 Mg Tab.Chew) 80 mg PO QIDWMHS PRN PRN Reason: gas Last Admin: 06/15/23 21:04 Dose: 80 mg Tamsulosin HCl (Tamsulosin Hcl 0.4 Mg Capsule) 0.4 mg PO DAILY [facility] Last Admin: 06/16/23 08:16 Dose: 0.4 mg Venlafaxine HCl (Venlafaxine Hcl Er 150 Mg Cap.Er.24h) 150 mg PO DAILY [facility] Last Admin: 06/16/23 08:16 Dose: 150 mg Home Medications Medication Instructions Recorded Confirmed Type hydrochlorothiazide 50 mg tablet 50 mg PO DAILY 02/29/20 05/21/23 History blood sugar diagnostic #10 ea 03/19/20 05/21/23 History hydroxyzine HCl 50 mg tablet 50 mg PO Q8H PRN anxiety 03/19/20 05/21/23 History lisinopril 40 mg tablet 40 mg PO DAILY 03/19/20 05/21/23 History metoprolol succinate 200 mg 200 mg PO DAILY 07/09/20 05/21/23 History tablet,extended release 24 hr trazodone 150 mg tablet 300 mg PO BEDTIME 07/09/20 05/21/23 History lancets 33 gauge (OneTouch Delica #100 ea 04/17/21 05/21/23 History Plus Lancet) verapamil 180 mg tablet,extended 360 mg PO DAILY 10/17/21 05/27/23 History release albuterol sulfate 0.63 mg/3 mL 1 amp inhalation Q4H PRN wheezing 03/24/22 05/21/23 History solution for nebulization levothyroxine 75 mcg tablet 75 mcg PO DAILY@0600 03/24/22 05/21/23 History multivitamin-ferrous 1 tab PO DAILY 03/24/22 05/21/23 History fumarate-folic acid 18 mg-400 mcg tablet (Certavite-Antioxidant) clonidine HCl 0.1 mg tablet 0.2 mg PO BEDTIME 02/28/23 05/21/23 History cyanocobalamin (vitamin B-12) 1,000 mcg PO DAILY 02/28/23 05/21/23 History 1,000 mcg sublingual tablet dexlansoprazole 60 mg 60 mg PO DAILY@0630 02/28/23 05/21/23 History capsule,biphase delayed release empagliflozin 25 mg tablet 25 mg PO QAM 02/28/23 05/21/23 History (Jardiance) insulin glargine 100 unit/mL (3 34 unit subcut BEDTIME 02/28/23 05/21/23 History mL) subcutaneous pen (Lantus Solostar U-100 Insulin) pioglitazone 15 mg tablet 15 mg PO QAM 02/28/23 05/21/23 History semaglutide 0.25 mg or 0.5 mg (2 0.5 mg subcut MO@0900 02/28/23 05/21/23 History mg/3 mL) subcutaneous pen injector (Ozempic) venlafaxine 150 mg 150 mg PO DAILY 05/20/23 05/27/23 History capsule,extended release 24 hr fluticasone propionate 50 1 spray intranasal DAILY 05/25/23 05/26/23 History mcg/actuation nasal spray,suspension furosemide 40 mg tablet 40 mg PO DAILY 05/25/23 05/27/23 History fluticasone fur. 200 mcg-umeclid 1 ea inhalation DAILY 05/26/23 05/26/23 History 62.5 mcg-vilant 25 mcg inhalat.powder (Trelegy Ellipta) psyllium husk 3 gram/5.4 gram oral 3 g PO DAILY 05/27/23 05/27/23 History powder (Reguloid (psyllium husk)) Allergies Allergy/AdvReac Type Severity Reaction Status Date / Time hazelnut Allergy Mild per Verified 05/26/23 07:56 allergy skin test peanut Allergy Mild per Verified 05/26/23 07:56 allergy skin test Exam Vital signs: Vital Signs Temp 98.0 F 06/16/23 11:27 Pulse 90 06/16/23 11:27 Resp 20 06/16/23 11:27 BP 142/64 H 06/16/23 11:27 Pulse Ox 96 06/16/23 11:27 O2 Del Method Room Air 06/16/23 11:27 O2 Flow Rate 96 06/06/23 06:26 FiO2 93 05/29/23 19:00 Intake & Output 06/15/23 06/16/23 06/16/23 18:59 06:59 18:59 Intake Total 594.833 / 1306.000 711.167 / 1306.000 50 / 50 Output Total 600 / 1350 750 / 1350 Balance -5.167 / -44.000 -38.833 / -44.000 50 / 50 Urine Output (Average ml/kg/hr) 0.52 0.65 0.65 Intake: Intake, Oral Amount 480 / 1080 600 / 1080 Intake, Oral Supplement Amount 0 / 0 Intake, Tube Feeding Amount 0 / 0 Intake, IV Amount 114.833 / 226.000 111.167 / 226.000 50 / 50 cefTRIAXone sodium 1 gm In 0.9 50 / 50 50 / 50 % Sodium Chloride 50 ml @ 100 mls/hr IV Q24H [facility] Rx#: [id number] Heparin Sodium,Porcine/1/2NS 25 64.833 / 176.000 111.167 / 176.000 ,000 unit In 250 ml @ Per Protocol IVCONT .Q0M [facility] Rx#: [id number] Output: Output, Urine Amount 750 / 750 Output, Stool Amount 0 / 0 Output, Urine/Stool Mix Amount 0 / 0 Output, Urine Amount (Catheter) 600 / 600 Ramos 600 / 600 Other: Breakfast % Eaten 75% Lunch % Eaten 75% Number of Incontinent Voids 0 Number of Unmeasured Voids 0 Number of Bowel Movements 1 0 Urine Urinal purewick Urine Color Yellow Yellow Last Bowel Movement 06/15/23 06/15/23 Stool Incontinent Stool Amount Moderate Stool Color Redman Stool Consistency Loose Weight 96.6 kg BMI result Body Mass Index 38.9 - Constitutional Present: no acute distress - Routine HEENT Exam Head: Present: normal inspection - Routine Respiratory Exam Absent: accessory muscle use, respiratory distress - Routine Cardiovascular Exam Cardiovascular: Present: S1, S2 - Routine Abdominal Exam Present: soft, tenderness - Routine Extremities Exam Present: pedal edema Data - Labs CBC & Chem 7: 06/17/23 05:24 06/17/23 05:24 Labs: Laboratory Last Values WBC 8.6 X10*3/uL (4.8-10.8) 06/16/23 05:57 RBC 2.77 X10*6/uL (4.20-5.50) L 06/16/23 05:57 Hgb 7.7 g/dl (12.0-16.0) L 06/16/23 05:57 Hct 25.1 % (37.0-47.0) L 06/16/23 05:57 MCV 90.6 fL (80.0-98.0) 06/16/23 05:57 MCH 27.8 pg (27.0-33.0) 06/16/23 05:57 MCHC 30.7 g/dl (31.0-35.0) L 06/16/23 05:57 RDW 19.9 % (11.0-16.0) H 06/16/23 05:57 Plt Count 225 X10*3/uL (160-400) 06/16/23 05:57 MPV 9.5 fL (9.4-12.3) 06/16/23 05:57 Immature Gran % (Auto) Cancelled 06/06/23 08:50 Neut % (Auto) Cancelled 06/06/23 08:50 Lymph % (Auto) Cancelled 06/06/23 08:50 [place] % (Auto) Cancelled 06/06/23 08:50 Eos % (Auto) Cancelled 06/06/23 08:50 Baso % (Auto) Cancelled 06/06/23 08:50 Lymph # (Auto) Cancelled 06/06/23 08:50 [place] # (Auto) Cancelled 06/06/23 08:50 Eos # (Auto) Cancelled 06/06/23 08:50 Baso # (Auto) Cancelled 06/06/23 08:50 Abs Immat Gran (auto) Cancelled 06/06/23 08:50 Absolute Neuts (auto) Cancelled 06/06/23 08:50 Absolute Nucleated RBC 0.100 X10*3/uL (0.0-0.012) H 06/16/23 05:57 Nucleated RBC % (auto) 1.2 /100WBC (0.0-0.2) H 06/16/23 05:57 Neutrophils % (Manual) 67 % (45-73) 06/06/23 08:50 Band Neutrophils % 15 % (3-5) H 06/06/23 08:50 Lymphocytes % (Manual) 6 % (20-40) L 06/06/23 08:50 Atypical Lymphs % (Man) 1 % (0-6) 06/06/23 08:50 Monocytes % (Manual) 4 % (2-11) 06/06/23 08:50 Eosinophils % (Manual) 1 % (0-4) 06/05/23 05:46 Basophils % (Manual) 1 % (0-2) 05/31/23 04:48 Metamyelocytes % 7 % 06/06/23 08:50 Myelocytes % 2 % 06/04/23 05:45 Abs Neuts (Manual) 18.1 X10*3/uL (2.0-8.3) H 06/06/23 08:50 Lymphocytes # (Manual) 1.3 X10*3/uL (1.2-4.9) 06/06/23 08:50 Atyp Lymphs # (Manual) 0.2 x10*3/uL 06/06/23 08:50 Monocytes # (Manual) 0.9 X10*3/uL (0.1-1.2) 06/06/23 08:50 Eosinophils # (Manual) 0.2 X10*3/uL (0.0-0.4) 06/05/23 05:46 Basophils # (Manual) 0.1 X10*3/uL (0.0-0.2) 05/31/23 04:48 Metamyelocytes # 1.5 X10*3/uL 06/06/23 08:50 Myelocytes # 0.4 X10*/uL 06/04/23 05:45 Toxic Granulation PRESENT 05/30/23 21:51 Toxic Vacuolation PRESENT 05/30/23 04:58 Dohle Bodies PRESENT 06/02/23 05:09 Platelet Estimate SLIGHTLY INCREASED (NORMAL) 06/06/23 08:50 Large Platelets PRESENT 06/04/23 05:45 Plt Morphology Comment NORMAL 06/06/23 08:50 RBC Morphology NOTED 06/06/23 08:50 Polychromasia 1+ (0-2) /OIF 06/06/23 08:50 Hypochromasia 1+ (5-14) /OIF 06/06/23 08:50 Tear Drop Cells 1+ (0-2) /OIF 05/30/23 04:58 [place] Cells 2+ (3-5) /OIF 05/30/23 21:51 Smear Path Review SEE NOTE 06/12/23 06:59 PT 14.9 SEC (11.1-13.3) H 06/15/23 07:13 INR 1.2 (0.9-1.1) H 06/15/23 07:13 APTT 35.4 SEC (26.0-36.8) 05/29/23 17:09 aPTT Heparin Protocol 33.3 SEC (53-77.9) L D 06/16/23 05:57 D-Dimer High Sensitivty 52596 NG/ML 05/29/23 06:38 VBG pH 7.50 (7.32-7.43) H 05/31/23 04:49 VBG pCO2 31 mmHg 05/31/23 04:49 VBG pO2 47 mmHg 05/31/23 04:49 VBG HCO3 24 mmol/L (22-26) 05/31/23 04:49 VBG O2 Saturation 76.0 % 05/31/23 04:49 VBG Base Excess 2.2 mmol/L 05/31/23 04:49 Sodium 133 mmol/L (135-145) L 06/14/23 07:11 Potassium 3.9 mmol/L (3.3-5.1) 06/14/23 07:11 Chloride 100 mmol/L (96-108) 06/14/23 07:11 Carbon Dioxide 25 mmol/L (22-29) 06/14/23 07:11 Anion Gap 12 (12-20) 06/14/23 07:11 BUN 6 mg/dL (9-16) L 06/14/23 07:11 Creatinine 0.64 mg/dL (0.5-1.4) 06/14/23 07:11 Estim Creat Clear Calc 88.3 06/14/23 07:11 Estimated GFR > 60 06/14/23 07:11 POC Glucose 200 mg/dL (60-115) H 06/16/23 11:14 Random Glucose 280 mg/dL (60-115) H 06/14/23 07:11 Fasting Glucose 225 mg/dL (60-99) H 05/28/23 09:07 Lactic Acid 1.0 mmol/L (0.5-2.0) 06/07/23 11:25 Lactic Acid F/U @ 2Hr 4.2 mmol/L (0.5-2.0) H* 05/30/23 20:49 Lactic Acid F/U @ 4Hr 2.8 mmol/L (0.5-2.0) H* 05/30/23 23:16 Calcium 7.6 mg/dL (8.4-10.2) L 06/14/23 07:11 Phosphorus 2.1 mg/dL (2.7-4.5) L 06/02/23 05:09 Magnesium 1.9 mg/dL (1.6-2.6) 06/12/23 06:59 Total Bilirubin 0.8 mg/dL (0.0-1.0) 06/02/23 05:09 AST 35 U/L (5-31) H 06/02/23 05:09 ALT 28 U/L (0-31) 06/02/23 05:09 Alkaline Phosphatase 138 U/L (39-117) H 06/02/23 05:09 Troponin I High Sens 4.4 ng/L (<3.5-17.0) 05/29/23 09:32 C-Reactive Protein 22.15 mg/dL (< or = 0.50) H 05/29/23 09:32 Total Protein 5.0 g/dL (6.5-8.0) L 06/02/23 05:09 Albumin 2.6 g/dL (3.5-5.0) L 06/02/23 05:09 TSH 0.80 uIU/mL (0.32-4.0) 05/30/23 18:26 Urine Color Yellow 06/14/23 12:39 Urine Appearance Turbid 06/14/23 12:39 Urine pH 7.5 (5.0-9.0) 06/14/23 12:39 Ur Specific [place] <= 1.005 (1.005-1.025) 06/14/23 12:39 Urine Protein 30 (1+) mg/dL (Neg-Trace) H 06/14/23 12:39 Urine Glucose (UA) Negative mg/dL (Negative) 06/14/23 12:39 Urine Ketones Negative mg/dL (Negative) 06/14/23 12:39 Urine Blood Moderate (2+) (Negative) H 06/14/23 12:39 Urine Nitrite Negative (Negative) 06/14/23 12:39 Ur Leukocyte Esterase Large (3+) (Negative) H 06/14/23 12:39 Urine RBC >20 /HPF (0-2) H 06/14/23 12:39 Urine WBC >50 /HPF (0-5) H 06/14/23 12:39 Ur Squamous Epith Cells 3-5 /HPF (0-2) 06/14/23 12:39 Urine Bacteria 2+ (None Seen) 06/14/23 12:39 Hyaline Casts 0-2 /LPF (0-2) 06/14/23 12:39 Urine Yeast Present 06/14/23 12:39 Nasal Screen MRSA (PCR) NEGATIVE (Negative) 05/19/23 12:55 Nasal S. aureus Screen NEGATIVE (Negative) 05/19/23 12:55 Nasal MRSA/S.aureus Interp SEE NOTE 05/19/23 12:55 Stool Occult Blood POSITIVE (NEGATIVE) 05/31/23 02:45 Random Vancomycin 8.4 mcg/mL (15-20) L 06/01/23 18:06 C. difficile Tox B Gene NEGATIVE (Negative) 06/03/23 19:55 - Imaging Radiologist's impression: ITS Impressions Knee X-Ray 05/26/23 12:40 IMPRESSION: Appropriate alignment of the left total knee arthroplasty. Chest X-Ray 05/29/23 04:33 IMPRESSION: No acute cardiopulmonary disease. Chest X-Ray 05/29/23 07:50 IMPRESSION: 1. Interval successful placement of Right internal jugular central line ending at expected location of superior vena cava. 2. No pneumothorax. 3. Unchanged Borderline cardiomegaly without signs of congestive heart failure. Venous Duplex 05/29/23 09:11 IMPRESSION: No evidence of deep vein thrombosis in the left lower extremity. Chest CTA 05/29/23 13:23 IMPRESSION: Bilateral nonocclusive segmental pulmonary emboli. No evidence of right heart strain or pulmonary infarct. Fleischner guidelines were followed. This critical test result was discussed with Maya Rae at 1521 on 05/29/[address] Williams Heard at the time of discovery. It was ascertained that the content and the importance of the findings was understood at the time of the direct communication. Head CT 05/29/23 13:23 IMPRESSION: No acute intracranial pathology. Sinus disease. Abdomen/Pelvis CT 05/30/23 13:56 IMPRESSION: * Abnormal fluid distention of the small bowel loops and colon with scattered air-fluid levels. Findings are consistent with a gastroenteritis and colitis. No evidence of bowel obstruction or perforation. * Trace bilateral pleural effusions, larger on the right than the left. Abdomen/Pelvis CT 06/02/23 13:35 IMPRESSION: Diffuse mural thickening involving the descending and sigmoid: To the splenic flexure most likely inflammatory or infectious colitis. There are diffuse scattered diverticuli in the descending and sigmoid colon but no suspicion for diverticulitis. Previously seen distended small bowel loops with air-fluid levels have improved. There is abdominal wall and mesenteric edema. Minimal fluid in the paracolic gutters. Small umbilical hernia. Fleischner guidelines were followed. GI Bleed Scan Nuclear Medicine 06/05/23 21:15 IMPRESSION: No evidence of gastrointestinal hemorrhage. Abdomen/Pelvis CT 06/07/23 08:30 IMPRESSION: 1. No evidence of contrast extravasation seen to suspect any site of GI bleed. 2. There is mild mural thickening and enhancement of sigmoid colon with surrounding fat stranding and free fluid in the pelvis suggestive of inflammatory or infectious colitis. There are scattered diverticuli in the sigmoid colon but no suspicion for diverticulitis. There is small amount of free fluid in the pelvis and abdominal wall edema/cellulitis. Also visualized is presacral soft tissue thickening or inflammatory response. 3. Bilateral small pleural effusions with underlying atelectasis. 4. Bilateral renal cysts and calyceal diverticulum upper pole left kidney. Fleischner guidelines were followed. KUB X-Ray 06/09/23 10:17 IMPRESSION: Gaseous distention of the large bowel and likely mild or partial distal large bowel obstruction similar to yesterday's CT scan. KUB X-Ray 06/12/23 11:22 IMPRESSION: No evidence of bowel obstruction. Incidental note made of cholecystectomy and retrievable IVC filter. Chest X-Ray 06/15/23 08:08 IMPRESSION: Unremarkable examination. Assessment and Plan Patient Active problem list reviewed?: Yes (1) Pulmonary embolism Status: Acute Assessment and plan: 1. This is a 68-year-old woman who underwent elective left total knee arthroplasty on 05/26/2023 and subsequently diagnosed with bilateral segmental pulmonary emboli on 05/29/2023. Her postoperative course was complicated by hypotension that required pressor support and subsequent development of ischemic colitis. CT angiogram of chest performed 05/28 revealed bilateral nonocclusive segmental pulmonary emboli without evidence of right heart strain or pulmonary infarction. She has been on Lovenox 90 mg subQ b.i.d.. She underwent CT abdomen/pelvis on 05/30/2023 for symptoms of abdominal pain and diarrhea and found to have abnormal fluid distention of small-bowel loops and colon consistent with gastroenteritis and colitis. She underwent sigmoidoscopy on 06/04/23 which revealed appearance of healing ischemic colitis. She has had an IVC filter placed. She has been off anticoagulation because of rectal bleeding. When heparin was resumed a couple of days ago, she developed hematochezia and anemia once again. I have recommended CT angiogram to re-evaluate pulmonary emboli. She fortunately is asymptomatic. Anticoagulation has to be on hold because of GI bleeding secondary to colitis, patient being [employer] does not accept any blood or blood products. Have recommended Venofer IV 200 mg daily for 3 days. Vitamin B12 and folic acid supplementation. I have not recommended Procrit because of risk of thromboembolism. - Time Spent With Patient Time Spent with Patient (in minutes): 10
[2023-06-16 14:55] VITALS: BP 119/59; PULSE 85; RESP 20; TEMP 37.2; O2SAT 98
--- NOTE | 2023-06-16 15:42 | PM.PNGS ---
Subjective Subjective Date of Service: 06/16/23 Interval history: No new complaints Says she feels better Tolerating diet Good BMs, without bleeding Physical Exam Vital Signs: Vital Signs: Last Vital Signs Temp 99.0 F 06/16/23 14:55 Pulse 85 06/16/23 14:55 Resp 20 06/16/23 14:55 BP 119/59 L 06/16/23 14:55 Pulse Ox 98 06/16/23 14:55 O2 Del Method Room Air 06/16/23 14:55 O2 Flow Rate 96 06/06/23 06:26 FiO2 93 05/29/23 19:00 Oxygen Flow Rate 3 05/29/23 04:00 BMI result Body Mass Index 38.9 Const: General: comfortable and no acute distress Resp: Effort & Inspection: normal respiratory effort Cardio: Rate: regular rate GI: Palpation (GI): Soft to palpation, not firm and nontender Objective Data Active Medications Albuterol Sulfate (Albuterol Sulfate 90 Mcg 8 Gm Inhaler) 2 puff INHALE RQ4H PRN PRN Reason: Wheezing Clonidine HCl (Clonidine Hcl 0.2 Mg Tablet) 0.2 mg PO BEDTIME [facility]; Protocol Last Admin: 06/04/23 21:17 Dose: 0.2 mg Documented By: LO Cyanocobalamin (Cyanocobalamin (Vitamin B-12) 100 Mcg Tablet) 100 mcg PO DAILY [facility] Last Admin: 06/16/23 08:19 Dose: 100 mcg Documented By: SRI Dextrose (Dextrose 50 % 25 Gm/50 Ml Syringe) 25 gm IVPUSH Q15M PRN; Protocol PRN Reason: per Hypoglycemia Standing Ord. Famotidine (Famotidine/Pf 20 Mg/2 Ml Vial) 20 mg IVPUSH BID [facility] Last Admin: 06/16/23 08:19 Dose: 20 mg Documented By: SRI Folic Acid (Folic Acid 1 Mg Tablet) 1 mg PO DAILY [facility] Last Admin: 06/16/23 08:19 Dose: 1 mg Documented By: SRI Gabapentin (Gabapentin 100 Mg Capsule) 100 mg PO TID [facility] Last Admin: 06/16/23 15:10 Dose: 100 mg Documented By: SRI Glucose (Glucose Gel 15 Gm Gel..Gram.) 15 gm PO Q15M PRN; Protocol PRN Reason: per Hypoglycemia Standing Ord. Heparin Sodium (Porcine) (Heparin Sodium,Porcine 5,000 Unit/Ml Vial) 3,900 unit 40 unit/kg (3900 unit) IVPUSH PROTOCOL BOLUS PRN; Protocol PRN Reason: 40 unit/kg - Heparin Protocol Heparin Sodium (Porcine) (Heparin Sodium,Porcine 5,000 Unit/Ml Vial) 7,700 unit 80 unit/kg (7700 unit) IVPUSH PROTOCOL BOLUS PRN; Protocol PRN Reason: 80 unit/kg - Heparin Protocol Ceftriaxone Sodium 1 gm/ (Sodium Chloride) 50 mls @ 100 mls/hr IV Q24H [facility] Last Infusion: 06/16/23 09:20 Dose: Infused Documented By: SRI Iron Sucrose 200 mg/ Sodium (Chloride) 110 mls @ 440 mls/hr IV DAILY [facility] Stop: 06/19/23 09:14 Iron Sucrose 200 mg/ Sodium (Chloride) 110 mls @ 440 mls/hr IV ONCE ONE Stop: 06/16/23 16:14 Insulin Glargine (Insulin Glargine,Hum.Rec.Anlog 100 Unit/Ml 10 Ml Vial) 20 unit SUBCUT BEDTIME [facility] Last Admin: 06/15/23 21:04 Dose: 20 unit Documented By: SHANEKA Insulin Human Lispro (Insulin Lispro 100 Unit/Ml 3 Ml Vial) 0 unit SUBCUT QIDACHS [facility]; Protocol Last Admin: 06/16/23 12:10 Dose: 2 unit Documented By: SRI Levothyroxine Sodium (Levothyroxine Sodium 75 Mcg Tablet) 75 mcg PO DAILY@0600 [facility] Last Admin: 06/16/23 06:33 Dose: 75 mcg Documented By: SHANEKA Lidocaine (Lidocaine 4 % Patch Adh..Patch) 2 patch TRANSDERMA DAILY [facility]; Protocol Last Admin: 06/16/23 08:20 Dose: 2 patch Documented By: SRI Lisinopril (Lisinopril 20 Mg Tablet) 20 mg PO DAILY [facility]; Protocol Loperamide HCl (Loperamide Hcl 2 Mg Capsule) 4 mg PO Q6H [facility] Last Admin: 06/16/23 12:09 Dose: 4 mg Documented By: SRI Melatonin (Melatonin 3 Mg Tablet) 3 mg PO BEDTIME PRN PRN Reason: Insomnia Last Admin: 06/15/23 21:04 Dose: 3 mg Documented By: SHANEKA Metoprolol Succinate (Metoprolol Succinate Er 100 Mg Tab.Er.24h) 200 mg PO DAILY [facility]; Protocol Last Admin: 06/16/23 08:17 Dose: 200 mg Documented By: SRI Ondansetron HCl (Ondansetron Hcl 4 Mg/2 Ml Vial) 4 mg IVPUSH Q6H PRN PRN Reason: Nausea and Vomiting Last Admin: 06/09/23 10:33 Dose: 4 mg Documented By: RHONDA Pentoxifylline (Pentoxifylline Er 400 Mg Tablet.Er) 400 mg PO TID [facility] Last Admin: 06/07/23 10:11 Dose: Not Given Documented By: MAYCOL Non-Admin Reason: held Simethicone (Simethicone 80 Mg Tab.Chew) 80 mg PO QIDWMHS PRN PRN Reason: gas Last Admin: 06/15/23 21:04 Dose: 80 mg Documented By: SHANEKA Tamsulosin HCl (Tamsulosin Hcl 0.4 Mg Capsule) 0.4 mg PO DAILY [facility] Last Admin: 06/16/23 08:16 Dose: 0.4 mg Documented By: SRI Venlafaxine HCl (Venlafaxine Hcl Er 150 Mg Cap.Er.24h) 150 mg PO DAILY [facility] Last Admin: 06/16/23 08:16 Dose: 150 mg Documented By: SRI Labs 06/16/23 05:57 06/14/23 07:11 Labs: Laboratory Results - last 24 hr 06/15/23 06/15/23 06/16/23 15:54 20:28 05:57 MCV 90.6 MCH 27.8 MCHC 30.7 L RDW 19.9 H Plt Count 225 MPV 9.5 Absolute Nucleated RBC 0.100 H Nucleated RBC % (auto) 1.2 H aPTT Heparin Protocol 33.3 L D POC Glucose 208 H 181 H 06/16/23 06/16/23 07:03 11:14 MCV MCH MCHC RDW Plt Count MPV Absolute Nucleated RBC Nucleated RBC % (auto) aPTT Heparin Protocol POC Glucose 149 H 200 H Microbiology Microbiology Results: Microbiology 06/14/23 Unknown Urine Culture - Preliminary Urine clean catch - Urine cabrera top Yeast Procedures Date of Service Date of Service: 06/16/23 Progress Note: A&P Assessment and plan (1) Ischemic colitis: Status: Acute Assessment and Plan: Clinically doing well Good GI function No overt GI bleed On anticoagulation Possible DC home tomorrow Time Spent With Patient Time: Total time managing care of this patient today ____ minutes. Quality Stroke Does the patient have a stroke diagnosis?: No VTE Prior VTE?: No VTE Risk Level:: Surgical - very high VTE Device Contraindication: N/A - Device Ordered VTE Drug Contraindication: N/A - Med Ordered
[2023-06-16] MEDS: Iron Sucrose Complex 200 MG in 0.9 % Sodium Chloride 100 ML 440 MG IV (16:15)
[2023-06-16 16:21] LABS: Glucose, Whole Blood 216 mg/dL (60-115)
[2023-06-16] MEDS: iohexoL 350 MG/ML 100 ML INFUS..BTL 65 ML IV (17:41)
[2023-06-16 19:15] VITALS: BP 148/67; PULSE 86; RESP 20; TEMP 36.6; O2SAT 98
[2023-06-16 20:00] LABS: Glucose, Whole Blood 194 mg/dL (60-115)
[2023-06-16] MEDS: Insulin Glargine,Hum.rec.anlog 100 UNIT/ML 10 ML VIAL 20 UNIT SUBCUT (20:48)
[2023-06-17] VITALS (7 sets, daily range): BP systolic 120–142; BP diastolic 59–67; PULSE 78–93; RESP 18–20; TEMP 36.1–36.8; O2SAT 94–97
[2023-06-17] MEDS: Loperamide HCl 2 MG CAPSULE 4 MG PO (04:00)
[2023-06-17] MEDS: Levothyroxine Sodium 75 MCG TABLET PO (05:25)
[2023-06-17 05:38] LABS: Hematocrit 24.7 % (37.0-47.0); Hemoglobin 7.7 g/dl (12.0-16.0); Mean Corpuscular HGB Conc 31.2 g/dl (31.0-35.0); Mean Corpuscular Volume 89.8 fL (80.0-98.0); Mean Platelet Volume 9.2 fL (9.4-12.3); NRBC Pct Auto 0.8 /100WBC (0.0-0.2); Platelet Count 248 X10*3/uL (160-400); Red Blood Count 2.75 X10*6/uL (4.20-5.50); Red Cell Distribution Width 19.4 % (11.0-16.0); White Blood Count 7.7 X10*3/uL (4.8-10.8)
[2023-06-17 06:00] LABS: Anion Gap 9 (12-20); Blood Urea Nitrogen 6 mg/dL (9-16); Carbon Dioxide 27 mmol/L (22-29); Chloride 103 mmol/L (96-108); Creatinine Clr Calc Pharmacy 79.9; Estimated Glomerular Filt Rate > 60; Glucose Random 207 mg/dL (60-115); Potassium 3.7 mmol/L (3.3-5.1); Sodium 135 mmol/L (135-145)
[2023-06-17 07:05] LABS: Glucose, Whole Blood 171 mg/dL (60-115)
--- NOTE | 2023-06-17 08:19 | PM.PNGS ---
Subjective Subjective Date of Service: 06/19/23 Interval history: Reported to have small amount of bright blood per rectum yesterday Patient and say that they were not aware about this Otherwise tolerating regular diet Drift in hemoglobin noted Physical Exam Vital Signs: Vital Signs: Last Vital Signs Temp 98.2 F 06/17/23 07:43 Pulse 90 06/17/23 07:43 Resp 20 06/17/23 07:43 BP 127/67 06/17/23 07:43 Pulse Ox 96 06/17/23 07:43 O2 Del Method Room Air 06/17/23 07:43 O2 Flow Rate 96 06/06/23 06:26 FiO2 93 05/29/23 19:00 Oxygen Flow Rate 3 05/29/23 04:00 BMI result Body Mass Index 38.9 Const: General: comfortable and no acute distress Resp: Effort & Inspection: normal respiratory effort Cardio: Rate: regular rate GI: Palpation (GI): Soft to palpation, not firm, nontender and no guarding Objective Data Active Medications Albuterol Sulfate (Albuterol Sulfate 90 Mcg 8 Gm Inhaler) 2 puff INHALE RQ4H PRN PRN Reason: Wheezing Clonidine HCl (Clonidine Hcl 0.2 Mg Tablet) 0.2 mg PO BEDTIME [facility]; Protocol Last Admin: 06/04/23 21:17 Dose: 0.2 mg Documented By: LO Cyanocobalamin (Cyanocobalamin (Vitamin B-12) 100 Mcg Tablet) 100 mcg PO DAILY [facility] Last Admin: 06/16/23 08:19 Dose: 100 mcg Documented By: SRI Dextrose (Dextrose 50 % 25 Gm/50 Ml Syringe) 25 gm IVPUSH Q15M PRN; Protocol PRN Reason: per Hypoglycemia Standing Ord. Famotidine (Famotidine/Pf 20 Mg/2 Ml Vial) 20 mg IVPUSH BID [facility] Last Admin: 06/16/23 20:51 Dose: 20 mg Documented By: SRI Folic Acid (Folic Acid 1 Mg Tablet) 1 mg PO DAILY [facility] Last Admin: 06/16/23 08:19 Dose: 1 mg Documented By: SRI Gabapentin (Gabapentin 100 Mg Capsule) 100 mg PO TID [facility] Last Admin: 06/16/23 20:48 Dose: 100 mg Documented By: SRI Glucose (Glucose Gel 15 Gm Gel..Gram.) 15 gm PO Q15M PRN; Protocol PRN Reason: per Hypoglycemia Standing Ord. Heparin Sodium (Porcine) (Heparin Sodium,Porcine 5,000 Unit/Ml Vial) 3,900 unit 40 unit/kg (3900 unit) IVPUSH PROTOCOL BOLUS PRN; Protocol PRN Reason: 40 unit/kg - Heparin Protocol Heparin Sodium (Porcine) (Heparin Sodium,Porcine 5,000 Unit/Ml Vial) 7,700 unit 80 unit/kg (7700 unit) IVPUSH PROTOCOL BOLUS PRN; Protocol PRN Reason: 80 unit/kg - Heparin Protocol Ceftriaxone Sodium 1 gm/ (Sodium Chloride) 50 mls @ 100 mls/hr IV Q24H [facility] Last Infusion: 06/16/23 09:20 Dose: Infused Documented By: SRI Iron Sucrose 200 mg/ Sodium (Chloride) 110 mls @ 440 mls/hr IV DAILY [facility] Stop: 06/19/23 09:14 Insulin Glargine (Insulin Glargine,Hum.Rec.Anlog 100 Unit/Ml 10 Ml Vial) 20 unit SUBCUT BEDTIME [facility] Last Admin: 06/16/23 20:48 Dose: 20 unit Documented By: SRI Insulin Human Lispro (Insulin Lispro 100 Unit/Ml 3 Ml Vial) 0 unit SUBCUT QIDACHS [facility]; Protocol Last Admin: 06/16/23 20:49 Dose: 2 unit Documented By: SRI Levothyroxine Sodium (Levothyroxine Sodium 75 Mcg Tablet) 75 mcg PO DAILY@0600 [facility] Last Admin: 06/17/23 05:25 Dose: 75 mcg Documented By: CASSI Lidocaine (Lidocaine 4 % Patch Adh..Patch) 2 patch TRANSDERMA DAILY [facility]; Protocol Last Admin: 06/16/23 08:20 Dose: 2 patch Documented By: SRI Lisinopril (Lisinopril 20 Mg Tablet) 20 mg PO DAILY [facility]; Protocol Loperamide HCl (Loperamide Hcl 2 Mg Capsule) 4 mg PO Q6H [facility] Last Admin: 06/17/23 04:00 Dose: 4 mg Documented By: CASSI Melatonin (Melatonin 3 Mg Tablet) 3 mg PO BEDTIME PRN PRN Reason: Insomnia Last Admin: 06/15/23 21:04 Dose: 3 mg Documented By: SHANEKA Metoprolol Succinate (Metoprolol Succinate Er 100 Mg Tab.Er.24h) 200 mg PO DAILY [facility]; Protocol Last Admin: 06/16/23 08:17 Dose: 200 mg Documented By: SRI Ondansetron HCl (Ondansetron Hcl 4 Mg/2 Ml Vial) 4 mg IVPUSH Q6H PRN PRN Reason: Nausea and Vomiting Last Admin: 06/09/23 10:33 Dose: 4 mg Documented By: RIOSCDOMENIC Oxycodone HCl (Oxycodone Hcl Immed Release 5 Mg Tablet) 5 mg PO Q6H PRN PRN Reason: Pain, Severe (Pain Scale 7-10) Last Admin: 06/16/23 20:48 Dose: 5 mg Documented By: SRI Pentoxifylline (Pentoxifylline Er 400 Mg Tablet.Er) 400 mg PO TID [facility] Last Admin: 06/07/23 10:11 Dose: Not Given Documented By: MAYCOL Non-Admin Reason: held Simethicone (Simethicone 80 Mg Tab.Chew) 80 mg PO QIDWMHS PRN PRN Reason: gas Last Admin: 06/15/23 21:04 Dose: 80 mg Documented By: SHANEKA Tamsulosin HCl (Tamsulosin Hcl 0.4 Mg Capsule) 0.4 mg PO DAILY [facility] Last Admin: 06/16/23 08:16 Dose: 0.4 mg Documented By: SRI Venlafaxine HCl (Venlafaxine Hcl Er 150 Mg Cap.Er.24h) 150 mg PO DAILY [facility] Last Admin: 06/16/23 08:16 Dose: 150 mg Documented By: SRI Labs 06/19/23 05:59 06/17/23 05:24 Labs: Laboratory Results - last 24 hr 06/16/23 06/16/23 06/16/23 05:57 11:14 16:18 MCV MCH MCHC RDW Plt Count MPV Absolute Nucleated RBC Nucleated RBC % (auto) aPTT Heparin Protocol 33.3 L D Anion Gap Estim Creat Clear Calc Estimated GFR POC Glucose 200 H 216 H Random Glucose Calcium 06/16/23 06/17/23 06/17/23 19:55 05:24 07:01 MCV 89.8 MCH 28.0 MCHC 31.2 RDW 19.4 H Plt Count 248 MPV 9.2 L Absolute Nucleated RBC 0.060 H Nucleated RBC % (auto) 0.8 H aPTT Heparin Protocol Anion Gap 9 L Estim Creat Clear Calc 79.9 Estimated GFR > 60 POC Glucose 194 H 171 H Random Glucose 207 H Calcium 8.0 L Microbiology Microbiology Results: Microbiology 06/14/23 Unknown Urine Culture - Final Urine clean catch - Urine cabrera top Jaylin albicans Procedures Date of Service Date of Service: 06/19/23 Progress Note: A&P Assessment and plan (1) Ischemic colitis: Status: Acute Assessment and Plan: Tolerating regular diet Small amount of bright blood per rectum yesterday Eliquis on hold again Risk-benefit ratio leans toward holding off on anticoagulation despite since of PEs Patient against any transfusion of blood products in view of hinduism beliefs Should be made aware about and benefits of anticoagulation versus holding off on this Looks well overall Time Spent With Patient Time: Total time managing care of this patient today ____ minutes. Quality Stroke Does the patient have a stroke diagnosis?: No VTE Prior VTE?: No VTE Risk Level:: Surgical - very high VTE Device Contraindication: N/A - Device Ordered VTE Drug Contraindication: N/A - Med Ordered
--- NOTE | 2023-06-17 09:31 | HO.PM.IMPN ---
Subjective Subjective Date of Service: 06/17/23 Interval History: seen and examined this morning follow up for colitis, PE, GI bleeding had bleeding episode on Thursday no abdominal pain no nausea or vomiting Review of Systems Review of Systems: Yes all other systems are reviewed and are negative Constitutional Constitutional: Denies chills and Denies fever(s) Cardiovascular Cardiovascular: Denies chest pain, Denies palpitations and Denies dyspnea Respiratory Respiratory: Denies cough and Denies dyspnea Endocrine Endocrine: Denies palpitations Physical Exam Vital Signs: Vital Signs: Last Vital Signs Temp 98.2 F 06/17/23 07:43 Pulse 90 06/17/23 07:43 Resp 20 06/17/23 07:43 BP 127/67 06/17/23 07:43 Pulse Ox 96 06/17/23 07:43 O2 Del Method Room Air 06/17/23 07:43 O2 Flow Rate 96 06/06/23 06:26 FiO2 93 05/29/23 19:00 Oxygen Flow Rate 3 05/29/23 04:00 BMI result Body Mass Index 38.9 Appearing in no acute distress lung sounds are clear to auscultation heart regular rate rhythm, clear S1, S2 positive bowel sounds, abdomen is soft, nontender neuro patient is alert x3, no focal deficits Objective Data Active Medications Albuterol Sulfate (Albuterol Sulfate 90 Mcg 8 Gm Inhaler) 2 puff INHALE RQ4H PRN PRN Reason: Wheezing Clonidine HCl (Clonidine Hcl 0.2 Mg Tablet) 0.2 mg PO BEDTIME [facility]; Protocol Last Admin: 06/04/23 21:17 Dose: 0.2 mg Documented By: LO Cyanocobalamin (Cyanocobalamin (Vitamin B-12) 100 Mcg Tablet) 100 mcg PO DAILY [facility] Last Admin: 06/16/23 08:19 Dose: 100 mcg Documented By: SRI Dextrose (Dextrose 50 % 25 Gm/50 Ml Syringe) 25 gm IVPUSH Q15M PRN; Protocol PRN Reason: per Hypoglycemia Standing Ord. Famotidine (Famotidine/Pf 20 Mg/2 Ml Vial) 20 mg IVPUSH BID [facility] Last Admin: 06/16/23 20:51 Dose: 20 mg Documented By: SRI Folic Acid (Folic Acid 1 Mg Tablet) 1 mg PO DAILY [facility] Last Admin: 06/16/23 08:19 Dose: 1 mg Documented By: SRI Gabapentin (Gabapentin 100 Mg Capsule) 100 mg PO TID [facility] Last Admin: 06/16/23 20:48 Dose: 100 mg Documented By: SRI Glucose (Glucose Gel 15 Gm Gel..Gram.) 15 gm PO Q15M PRN; Protocol PRN Reason: per Hypoglycemia Standing Ord. Heparin Sodium (Porcine) (Heparin Sodium,Porcine 5,000 Unit/Ml Vial) 3,900 unit 40 unit/kg (3900 unit) IVPUSH PROTOCOL BOLUS PRN; Protocol PRN Reason: 40 unit/kg - Heparin Protocol Heparin Sodium (Porcine) (Heparin Sodium,Porcine 5,000 Unit/Ml Vial) 7,700 unit 80 unit/kg (7700 unit) IVPUSH PROTOCOL BOLUS PRN; Protocol PRN Reason: 80 unit/kg - Heparin Protocol Ceftriaxone Sodium 1 gm/ (Sodium Chloride) 50 mls @ 100 mls/hr IV Q24H [facility] Last Infusion: 06/16/23 09:20 Dose: Infused Documented By: SRI Iron Sucrose 200 mg/ Sodium (Chloride) 110 mls @ 440 mls/hr IV DAILY [facility] Stop: 06/19/23 09:14 Insulin Glargine (Insulin Glargine,Hum.Rec.Anlog 100 Unit/Ml 10 Ml Vial) 20 unit SUBCUT BEDTIME [facility] Last Admin: 06/16/23 20:48 Dose: 20 unit Documented By: SRI Insulin Human Lispro (Insulin Lispro 100 Unit/Ml 3 Ml Vial) 0 unit SUBCUT QIDACHS [facility]; Protocol Last Admin: 06/16/23 20:49 Dose: 2 unit Documented By: SRI Levothyroxine Sodium (Levothyroxine Sodium 75 Mcg Tablet) 75 mcg PO DAILY@0600 [facility] Last Admin: 06/17/23 05:25 Dose: 75 mcg Documented By: CASSI Lidocaine (Lidocaine 4 % Patch Adh..Patch) 2 patch TRANSDERMA DAILY [facility]; Protocol Last Admin: 06/16/23 08:20 Dose: 2 patch Documented By: SRI Lisinopril (Lisinopril 20 Mg Tablet) 20 mg PO DAILY [facility]; Protocol Loperamide HCl (Loperamide Hcl 2 Mg Capsule) 4 mg PO Q6H [facility] Last Admin: 06/17/23 04:00 Dose: 4 mg Documented By: CASSI Melatonin (Melatonin 3 Mg Tablet) 3 mg PO BEDTIME PRN PRN Reason: Insomnia Last Admin: 06/15/23 21:04 Dose: 3 mg Documented By: SHANEKA Metoprolol Succinate (Metoprolol Succinate Er 100 Mg Tab.Er.24h) 200 mg PO DAILY [facility]; Protocol Last Admin: 06/16/23 08:17 Dose: 200 mg Documented By: SRI Ondansetron HCl (Ondansetron Hcl 4 Mg/2 Ml Vial) 4 mg IVPUSH Q6H PRN PRN Reason: Nausea and Vomiting Last Admin: 06/09/23 10:33 Dose: 4 mg Documented By: RIOSCEL Oxycodone HCl (Oxycodone Hcl Immed Release 5 Mg Tablet) 5 mg PO Q6H PRN PRN Reason: Pain, Severe (Pain Scale 7-10) Last Admin: 06/16/23 20:48 Dose: 5 mg Documented By: SRI Pentoxifylline (Pentoxifylline Er 400 Mg Tablet.Er) 400 mg PO TID [facility] Last Admin: 06/07/23 10:11 Dose: Not Given Documented By: MAYCOL Non-Admin Reason: held Simethicone (Simethicone 80 Mg Tab.Chew) 80 mg PO QIDWMHS PRN PRN Reason: gas Last Admin: 06/15/23 21:04 Dose: 80 mg Documented By: SHANEKA Tamsulosin HCl (Tamsulosin Hcl 0.4 Mg Capsule) 0.4 mg PO DAILY [facility] Last Admin: 06/16/23 08:16 Dose: 0.4 mg Documented By: SRI Venlafaxine HCl (Venlafaxine Hcl Er 150 Mg Cap.Er.24h) 150 mg PO DAILY [facility] Last Admin: 06/16/23 08:16 Dose: 150 mg Documented By: SRI Labs 06/17/23 05:24 06/17/23 05:24 Labs: Laboratory Results - last 24 hr 06/16/23 06/16/23 06/16/23 11:14 16:18 19:55 MCV MCH MCHC RDW Plt Count MPV Absolute Nucleated RBC Nucleated RBC % (auto) Anion Gap Estim Creat Clear Calc Estimated GFR POC Glucose 200 H 216 H 194 H Random Glucose Calcium 06/17/23 06/17/23 05:24 07:01 MCV 89.8 MCH 28.0 MCHC 31.2 RDW 19.4 H Plt Count 248 MPV 9.2 L Absolute Nucleated RBC 0.060 H Nucleated RBC % (auto) 0.8 H Anion Gap 9 L Estim Creat Clear Calc 79.9 Estimated GFR > 60 POC Glucose 171 H Random Glucose 207 H Calcium 8.0 L Microbiology Microbiology Results: Microbiology 06/14/23 Unknown Urine Culture - Final Urine clean catch - Urine cabrera top Aubrie albicans Assessment and Plan (1) Acute blood loss anemia: Status: Acute (2) Ischemic colitis: Status: Acute (3) Pulmonary embolism: Status: Acute (4) Status post knee replacement: Status: Acute (5) Urinary retention: Status: Acute Plan 68 year old female with history of htn, asthma/copd overlap, type 2 diabetes, hld, gerd, who presented on 05/25 for elective Left TKA. She subsequently developed hypotention requiring ICU level of care [id number]/[phone] and was diagnosed to have b/l segmental PE; hospital course further complicated by probable ischemic colitis and now with rectal bleeding/ acute blood loss anemia UTI likely from hylton placement, has since been removed cx showing aubrie stopped rocephin, completed 3 days Pulmonary embolus CTA 05/28 with bilateral nonocclusive segmental pulmonary emboli no respiratory symptoms, continues to remain on room air echo with no evidence of right heart strain Left lower extremity ultrasound negative for DVT s/p IVC filter 06/07 started IV heparin 06/13 after being off ac for 8 days, transitioned to eliquis 06/15/23 but patient had bleeding episode on 06/16/23 and drop in HH. AC stopped Rectal bleeding/acute blood loss anemia likely due to ischemic colitis from hypotension seen by hematology, as unable to receive blood products ([employer]), IV iron, one dose of procrit CTA abdomen/pelvis 06/06 with no extravasation to suggest site of GI bleeding d/t repeat rectal bleeding, no ac at this time, will have to re-evaluate in another week or so after discussion with GI. Risk of bleeding is high due to the fact patient does not accept blood Abdominal pain/gassiness/bloating, unspecified. Resolved encourage oob ambulating and to chair Simethicone prn, IV push pepcid diet advanced to solid food, low fiber Urinary retention (likely secondary to anesthesia/opiates). Resolved continue Flomax 0.4mg daily hylton removed 06/16/23, urinating on her own Hypokalemia. Resolved likely due to decreased po intake Resolved with replacement Ischemic Colitis seen by GI, underwent sigmoidoscopy 06/03 - c/w with healing ischemic colitis completed course of IV Levaquin/Flagyl trental on hold avoid low blood pressure general surgery following OA s/p L TKA 05/25 PT Type 2 diabetes Continue SSI, lantus HTN Lisinopril 20mg , metoprolol xl restarted 06/09 lasix, HCTZ, clonidine and verapamil on hold, may consider not restarting as BP has been wnl and to avoid hypotension Hypothyroidism continue synthroid mood continue effexor Obesity BMI 39.0 Discussed importance of weight management as this may be contributing to worsening of other comorbidities Attending Dr. Heard DVT prophylaxis Eliquis DISPO plan for dc home when medically clear, patient declining short term rehab Requires ongoing hospitalization secondary to the need for IV antibiotics to treat colitis and close monitoring of anemia Quality Stroke Does the patient have a stroke diagnosis?: No VTE Prior VTE?: No VTE Risk Level:: Surgical - very high VTE Device Contraindication: N/A - Device Ordered VTE Drug Contraindication: N/A - Med Ordered
[2023-06-17] MEDS: Insulin Lispro 100 UNIT/ML 3 ML VIAL SUBCUT ×3 (10:08→18:15)
[2023-06-17] MEDS: Cyanocobalamin (Vitamin B-12) 100 MCG TABLET PO (10:10)
[2023-06-17] MEDS: Tamsulosin HCL 0.4 MG CAPSULE PO (10:10)
[2023-06-17] MEDS: Metoprolol Succinate ER 100 MG TAB.ER.24H 200 MG PO (10:10)
[2023-06-17] MEDS: Lidocaine 4 % Patch ADH..PATCH 2 PATCH TRANSDERMA (10:11)
[2023-06-17] MEDS: Folic Acid 1 MG TABLET PO (10:11)
[2023-06-17] MEDS: lisinopriL 20 MG TABLET PO (10:11)
[2023-06-17] MEDS: Gabapentin 100 MG CAPSULE PO ×3 (10:11→21:10)
[2023-06-17] MEDS: Famotidine/PF 20 MG/2 ML VIAL IVPUSH ×2 (10:11→21:10)
[2023-06-17] MEDS: Venlafaxine HCl ER 150 MG CAP.ER.24H PO (10:11)
[2023-06-17] MEDS: Iron Sucrose Complex 200 MG in 0.9 % Sodium Chloride 100 ML 440 MG IV (10:12)
[2023-06-17 11:20] LABS: Glucose, Whole Blood 244 mg/dL (60-115)
--- NOTE | 2023-06-17 12:25 | MHC.CLN ---
F/U PO INTAKE 25% DIET RX: 1800DM LOW FIBER-APPROPRIATE PT RECEIVING ENSURE MAX BID TO PROVIDE 300KCALS, 60G PROTEIN MONITOR PO INTAKE AND ENCOURAGE SUPPLEMENTS
[2023-06-17] MEDS: oxyCODONE HCl Immed Release 5 MG TABLET PO ×2 (13:05→21:54)
[2023-06-17 16:00] LABS: Glucose, Whole Blood 193 mg/dL (60-115)
[2023-06-17 19:55] LABS: Glucose, Whole Blood 210 mg/dL (60-115)
[2023-06-17] MEDS: Insulin Glargine,Hum.rec.anlog 100 UNIT/ML 10 ML VIAL 20 UNIT SUBCUT (21:10)
[2023-06-18 04:00] VITALS: BP 119/56; PULSE 93; RESP 18; TEMP 36.2; O2SAT 93
[2023-06-18] MEDS: oxyCODONE HCl Immed Release 5 MG TABLET PO ×3 (06:17→20:46)
[2023-06-18] MEDS: Levothyroxine Sodium 75 MCG TABLET PO (06:17)
[2023-06-18 07:02] VITALS: BP 117/59; PULSE 85; RESP 18; TEMP 36.2; O2SAT 94
[2023-06-18 07:08] LABS: Glucose, Whole Blood 167 mg/dL (60-115)
[2023-06-18 08:34] LABS: Hematocrit 25.6 % (37.0-47.0); Mean Corpuscular HGB Conc 31.3 g/dl (31.0-35.0); Mean Corpuscular Hemoglobin 27.8 pg (27.0-33.0); Mean Corpuscular Volume 88.9 fL (80.0-98.0); Mean Platelet Volume 9.2 fL (9.4-12.3); NRBC Pct Auto 0.3 /100WBC (0.0-0.2); Platelet Count 283 X10*3/uL (160-400); Red Blood Count 2.88 X10*6/uL (4.20-5.50); Red Cell Distribution Width 19.2 % (11.0-16.0)
[2023-06-18] MEDS: Famotidine/PF 20 MG/2 ML VIAL IVPUSH ×2 (08:38→20:48)
[2023-06-18] MEDS: Folic Acid 1 MG TABLET PO (08:38)
[2023-06-18] MEDS: Metoprolol Succinate ER 100 MG TAB.ER.24H 200 MG PO (08:38)
[2023-06-18] MEDS: Gabapentin 100 MG CAPSULE PO ×3 (08:38→20:46)
[2023-06-18] MEDS: Tamsulosin HCL 0.4 MG CAPSULE PO (08:38)
[2023-06-18] MEDS: Venlafaxine HCl ER 150 MG CAP.ER.24H PO (08:39)
[2023-06-18] MEDS: Insulin Lispro 100 UNIT/ML 3 ML VIAL SUBCUT ×3 (08:39→21:18)
[2023-06-18] MEDS: Cyanocobalamin (Vitamin B-12) 100 MCG TABLET PO (08:39)
[2023-06-18] MEDS: lisinopriL 20 MG TABLET PO (08:39)
[2023-06-18] MEDS: Lidocaine 4 % Patch ADH..PATCH 2 PATCH TRANSDERMA (08:40)
[2023-06-18] MEDS: Iron Sucrose Complex 200 MG in 0.9 % Sodium Chloride 100 ML 440 MG IV (10:22)
[2023-06-18 11:06] VITALS: BP 133/60; PULSE 85; RESP 18; TEMP 36.4; O2SAT 96
[2023-06-18 11:11] LABS: Glucose, Whole Blood 225 mg/dL (60-115)
--- NOTE | 2023-06-18 12:10 | P.PNIM_ITS ---
Subjective Subjective Date of Service: 06/18/23 Interval History: Seen and examined this morning Follow-up for PE/GI bleeding History obtained with the assistance of a assembler hydraulic backhoe No further bleeding at this time Tolerating regular diet Review of Systems Review of Systems: Yes all other systems are reviewed and are negative Constitutional Constitutional: Denies chills and Denies fever(s) Cardiovascular Cardiovascular: Denies chest pain and Denies dyspnea Respiratory Respiratory: Denies dyspnea Physical Exam 2 Vital Signs: Vital Signs: Last Vital Signs Temp 97.6 F 06/18/23 11:06 Pulse 85 06/18/23 11:06 Resp 18 06/18/23 11:06 BP 133/60 06/18/23 11:06 Pulse Ox 96 06/18/23 11:06 O2 Del Method Room Air 06/18/23 11:06 O2 Flow Rate 96 06/06/23 06:26 FiO2 93 05/29/23 19:00 Oxygen Flow Rate 3 05/29/23 04:00 BMI result Body Mass Index 38.9 Const: General: cooperative, comfortable, alert and awake Nutritional Appearance: obese Orientation/consciousness: patient oriented x3 Resp: Effort & Inspection: normal respiratory effort, able to speak in complete sentences, no respiratory distress and no use of accessory muscles Cardio: Rate: regular rate GI: Other: no guarding, no rebound Inspection: No distended Palpation (GI): Soft to palpation Neuro: General: patient oriented x3, No moves all extremities and CN's II-XI intact bilaterally Extrem: General: Yes no pedal edema Objective Data Active Medications Albuterol Sulfate (Albuterol Sulfate 90 Mcg 8 Gm Inhaler) 2 puff INHALE RQ4H PRN PRN Reason: Wheezing Clonidine HCl (Clonidine Hcl 0.2 Mg Tablet) 0.2 mg PO BEDTIME [facility]; Protocol Last Admin: 06/04/23 21:17 Dose: 0.2 mg Documented By: LO Cyanocobalamin (Cyanocobalamin (Vitamin B-12) 100 Mcg Tablet) 100 mcg PO DAILY [facility] Last Admin: 06/18/23 08:39 Dose: 100 mcg Documented By: RICKEY Dextrose (Dextrose 50 % 25 Gm/50 Ml Syringe) 25 gm IVPUSH Q15M PRN; Protocol PRN Reason: per Hypoglycemia Standing Ord. Famotidine (Famotidine/Pf 20 Mg/2 Ml Vial) 20 mg IVPUSH BID [facility] Last Admin: 06/18/23 08:38 Dose: 20 mg Documented By: RICKEY Folic Acid (Folic Acid 1 Mg Tablet) 1 mg PO DAILY [facility] Last Admin: 06/18/23 08:38 Dose: 1 mg Documented By: RICKEY Gabapentin (Gabapentin 100 Mg Capsule) 100 mg PO TID [facility] Last Admin: 06/18/23 08:38 Dose: 100 mg Documented By: RICKEY Glucose (Glucose Gel 15 Gm Gel..Gram.) 15 gm PO Q15M PRN; Protocol PRN Reason: per Hypoglycemia Standing Ord. Iron Sucrose 200 mg/ Sodium (Chloride) 110 mls @ 440 mls/hr IV DAILY [facility] Stop: 06/19/23 09:14 Last Infusion: 06/18/23 10:42 Dose: Infused Documented By: RICKEY Insulin Glargine (Insulin Glargine,Hum.Rec.Anlog 100 Unit/Ml 10 Ml Vial) 20 unit SUBCUT BEDTIME [facility] Last Admin: 06/17/23 21:10 Dose: 20 unit Documented By: ANTHONY Insulin Human Lispro (Insulin Lispro 100 Unit/Ml 3 Ml Vial) 0 unit SUBCUT QIDACHS [facility]; Protocol Last Admin: 06/18/23 08:39 Dose: 2 unit Documented By: RICKEY Levothyroxine Sodium (Levothyroxine Sodium 75 Mcg Tablet) 75 mcg PO DAILY@0600 [facility] Last Admin: 06/18/23 06:17 Dose: 75 mcg Documented By: ANTHONY Lidocaine (Lidocaine 4 % Patch Adh..Patch) 2 patch TRANSDERMA DAILY [facility]; Protocol Last Admin: 06/18/23 08:40 Dose: 2 patch Documented By: RICKEY Lisinopril (Lisinopril 20 Mg Tablet) 20 mg PO DAILY [facility]; Protocol Last Admin: 06/18/23 08:39 Dose: 20 mg Documented By: RICKEY Loperamide HCl (Loperamide Hcl 2 Mg Capsule) 4 mg PO Q6H PRN PRN Reason: Diarrhea Melatonin (Melatonin 3 Mg Tablet) 3 mg PO BEDTIME PRN PRN Reason: Insomnia Last Admin: 06/15/23 21:04 Dose: 3 mg Documented By: SHANEKA Metoprolol Succinate (Metoprolol Succinate Er 100 Mg Tab.Er.24h) 200 mg PO DAILY [facility]; Protocol Last Admin: 06/18/23 08:38 Dose: 200 mg Documented By: RICKEY Omeprazole (Omeprazole 20 Mg Capsule.Dr) 20 mg PO DAILY@0630 [facility] Ondansetron HCl (Ondansetron Hcl 4 Mg/2 Ml Vial) 4 mg IVPUSH Q6H PRN PRN Reason: Nausea and Vomiting Last Admin: 06/09/23 10:33 Dose: 4 mg Documented By: RHONDA Oxycodone HCl (Oxycodone Hcl Immed Release 5 Mg Tablet) 5 mg PO Q6H PRN PRN Reason: Pain, Severe (Pain Scale 7-10) Last Admin: 06/18/23 06:17 Dose: 5 mg Documented By: ANTHONY Pentoxifylline (Pentoxifylline Er 400 Mg Tablet.Er) 400 mg PO TID [facility] Last Admin: 06/07/23 10:11 Dose: Not Given Documented By: MAYCOL Non-Admin Reason: held Simethicone (Simethicone 80 Mg Tab.Chew) 80 mg PO QIDWMHS PRN PRN Reason: gas Last Admin: 06/15/23 21:04 Dose: 80 mg Documented By: SHANEKA Tamsulosin HCl (Tamsulosin Hcl 0.4 Mg Capsule) 0.4 mg PO DAILY [facility] Last Admin: 06/18/23 08:38 Dose: 0.4 mg Documented By: RICKEY Venlafaxine HCl (Venlafaxine Hcl Er 150 Mg Cap.Er.24h) 150 mg PO DAILY [facility] Last Admin: 06/18/23 08:39 Dose: 150 mg Documented By: RICKEY Labs 06/18/23 08:04 06/17/23 05:24 Labs: Laboratory Results - last 24 hr 06/17/23 06/17/23 06/18/23 15:55 19:50 07:03 MCV MCH MCHC RDW Plt Count MPV Absolute Nucleated RBC Nucleated RBC % (auto) POC Glucose 193 H 210 H 167 H 06/18/23 06/18/23 08:04 11:08 MCV 88.9 MCH 27.8 MCHC 31.3 RDW 19.2 H Plt Count 283 MPV 9.2 L Absolute Nucleated RBC 0.020 H Nucleated RBC % (auto) 0.3 H POC Glucose 225 H Assessment and Plan (1) Acute blood loss anemia: Status: Acute (2) Ischemic colitis: Status: Acute (3) Status post knee replacement: Status: Acute (4) Pulmonary embolism: Status: Acute Plan 68 year old female with history of htn, asthma/copd overlap, type 2 diabetes, hld, gerd, who presented on 05/25 for elective Left TKA. She subsequently developed hypotention requiring ICU level of care 315-05/31 and was diagnosed to have b/l segmental PE; hospital course further complicated by probable ischemic colitis and now with rectal bleeding/ acute blood loss anemia UTI likely from hylton placement, has since been removed cx showing aubrie stopped rocephin, completed 3 days Pulmonary embolus CTA 05/28 with bilateral nonocclusive segmental pulmonary emboli no respiratory symptoms, continues to remain on room air echo with no evidence of right heart strain Left lower extremity ultrasound negative for DVT s/p IVC filter 06/07 started IV heparin 06/13 after being off ac for 8 days, transitioned to eliquis 06/15/23 but patient had bleeding episode on 06/16/23 and drop in HH. AC stopped AC now on hold - plan to resume in two weeks as outpatient and follow CBC, PCP follow up Rectal bleeding/acute blood loss anemia likely due to ischemic colitis from hypotension seen by hematology, as unable to receive blood products (Sabianism), IV iron, one dose of procrit CTA abdomen/pelvis 06/06 with no extravasation to suggest site of GI bleeding d/t repeat rectal bleeding, no ac at this time, will have to re-evaluate in another week or so after discussion with GI. Risk of bleeding is high due to the fact patient does not accept blood Abdominal pain/gassiness/bloating, unspecified. Resolved encourage oob ambulating and to chair Simethicone prn, IV push pepcid diet advanced to solid food, low fiber Urinary retention (likely secondary to anesthesia/opiates). Resolved continue Flomax 0.4mg daily hylton removed 06/16/23, urinating on her own Hypokalemia. Resolved likely due to decreased po intake Resolved with replacement Ischemic Colitis seen by GI, underwent sigmoidoscopy 06/03 - c/w with healing ischemic colitis completed course of IV Levaquin/Flagyl trental on hold avoid low blood pressure general surgery following OA s/p L TKA 05/25 PT Type 2 diabetes Continue SSI, lantus HTN Lisinopril 20mg , metoprolol xl restarted 06/09 lasix, HCTZ, clonidine and verapamil on hold, may consider not restarting as BP has been wnl and to avoid hypotension Hypothyroidism continue synthroid mood continue effexor Obesity BMI 39.0 Discussed importance of weight management as this may be contributing to worsening of other comorbidities Attending Dr. Heard DVT prophylaxis Eliquis DISPO plan for dc home when medically clear, patient declining short term rehab Requires ongoing hospitalization secondary to the need for IV antibiotics to treat colitis and close monitoring of anemia Quality Stroke Does the patient have a stroke diagnosis?: No VTE Prior VTE?: No VTE Risk Level:: Surgical - very high VTE Device Contraindication: N/A - Device Ordered VTE Drug Contraindication: N/A - Med Ordered
[2023-06-18 15:18] VITALS: BP 141/75; PULSE 88; RESP 18; TEMP 36.3; O2SAT 94
[2023-06-18 16:06] LABS: Glucose, Whole Blood 133 mg/dL (60-115)
[2023-06-18 19:56] VITALS: BP 145/71; PULSE 94; RESP 20; TEMP 36.8; O2SAT 97
[2023-06-18] MEDS: Insulin Glargine,Hum.rec.anlog 100 UNIT/ML 10 ML VIAL 20 UNIT SUBCUT (21:10)
[2023-06-18 21:15] LABS: Glucose, Whole Blood 245 mg/dL (60-115)
[2023-06-18 23:02] VITALS: BP 132/71; PULSE 91; RESP 20; TEMP 36.8; O2SAT 96
[2023-06-19] MEDS: Melatonin 3 MG TABLET PO ×2 (00:07→23:57)
[2023-06-19] MEDS: HYDROmorphone HCl 1 MG/ML SYRINGE IVPUSH (01:15)
[2023-06-19] MEDS: oxyCODONE HCl Immed Release 5 MG TABLET PO ×3 (03:09→23:56)
[2023-06-19 03:20] VITALS: BP 107/65; PULSE 87; RESP 20; TEMP 37.2; O2SAT 98
[2023-06-19] MEDS: Levothyroxine Sodium 75 MCG TABLET PO (06:15)
[2023-06-19] MEDS: Omeprazole 20 MG CAPSULE.DR PO (06:15)
[2023-06-19 06:26] LABS: Hematocrit 27.1 % (37.0-47.0); Hemoglobin 8.2 g/dl (12.0-16.0); Mean Corpuscular HGB Conc 30.3 g/dl (31.0-35.0); Mean Corpuscular Hemoglobin 27.3 pg (27.0-33.0); Mean Corpuscular Volume 90.3 fL (80.0-98.0); Mean Platelet Volume 9.3 fL (9.4-12.3); NRBC Pct Auto 0.3 /100WBC (0.0-0.2); Platelet Count 302 X10*3/uL (160-400); Red Cell Distribution Width 19.3 % (11.0-16.0); White Blood Count 7.2 X10*3/uL (4.8-10.8)
[2023-06-19 07:18] VITALS: BP 123/61; PULSE 84; RESP 18; TEMP 36.5; O2SAT 97
[2023-06-19 07:31] LABS: Glucose, Whole Blood 171 mg/dL (60-115)
[2023-06-19] MEDS: Metoprolol Succinate ER 100 MG TAB.ER.24H 200 MG PO (08:57)
[2023-06-19] MEDS: lisinopriL 20 MG TABLET PO (08:57)
[2023-06-19] MEDS: Iron Sucrose Complex 200 MG in 0.9 % Sodium Chloride 100 ML 440 MG IV (08:57)
[2023-06-19] MEDS: Insulin Lispro 100 UNIT/ML 3 ML VIAL SUBCUT ×4 (08:57→23:50)
[2023-06-19] MEDS: Cyanocobalamin (Vitamin B-12) 100 MCG TABLET PO (08:57)
[2023-06-19] MEDS: Gabapentin 100 MG CAPSULE PO ×3 (08:57→23:50)
[2023-06-19] MEDS: Folic Acid 1 MG TABLET PO (08:57)
[2023-06-19] MEDS: Tamsulosin HCL 0.4 MG CAPSULE PO (08:57)
[2023-06-19] MEDS: Famotidine/PF 20 MG/2 ML VIAL IVPUSH ×2 (08:57→23:50)
[2023-06-19] MEDS: Lidocaine 4 % Patch ADH..PATCH 2 PATCH TRANSDERMA (08:58)
[2023-06-19] MEDS: Venlafaxine HCl ER 150 MG CAP.ER.24H PO (09:11)
--- NOTE | 2023-06-19 09:44 | MHC.CM.PN ---
CM met with Patient and her at bedside to discuss PT's recommendation for STR.Patient wants to return home/resume services . PA is aware and CM will continue to follow.
--- NOTE | 2023-06-19 11:17 | MHC.CLN ---
F/U PO INTAKE VARIABLE DIET RX: 1800DM LOW FIBER-APPROPRIATE PT RECEIVING ENSURE MAX BID TO PROVIDE 300KCALS, 60G PROTEIN MONITOR PO INTAKE AND ENCOURAGE SUPPLEMENTS
[2023-06-19 11:57] VITALS: BP 115/65; PULSE 82; RESP 18; TEMP 36.1; O2SAT 96
[2023-06-19 12:04] LABS: Glucose, Whole Blood 156 mg/dL (60-115)
--- NOTE | 2023-06-19 12:46 | HO.PM.IMPN ---
Subjective Subjective Date of Service: 06/19/23 Interval History: Seen and examined this morning Follow-up for PE, GI bleed, anemia Had small amount of bleeding yesterday afternoon, no bleeding overnight Patient reporting pelvic pressure and pain with urination. Review of Systems Review of Systems: Yes all other systems are reviewed and are negative Constitutional Constitutional: Denies chills and Denies fever(s) ENT Ears, Nose, Mouth, and Throat: Denies dizziness Cardiovascular Cardiovascular: Denies chest pain, Denies palpitations and Denies dyspnea Respiratory Respiratory: Denies cough and Denies dyspnea Neurologic Neurologic: Denies dizziness Endocrine Endocrine: Denies palpitations Physical Exam Vital Signs: Vital Signs: Last Vital Signs Temp 96.9 F 06/19/23 11:57 Pulse 82 06/19/23 11:57 Resp 18 06/19/23 11:57 BP 115/65 06/19/23 11:57 Pulse Ox 96 06/19/23 11:57 O2 Del Method Room Air 06/19/23 11:57 O2 Flow Rate 96 06/06/23 06:26 FiO2 93 05/29/23 19:00 Oxygen Flow Rate 3 05/29/23 04:00 BMI result Body Mass Index 38.9 Const: General: cooperative, comfortable, no acute distress, alert and awake Nutritional Appearance: obese and overweight Orientation/consciousness: patient oriented x3 Resp: Effort & Inspection: normal respiratory effort, able to speak in complete sentences, no respiratory distress and no use of accessory muscles Cardio: Rate: regular rate GI: Other: no guarding, no rebound Inspection: No distended Palpation (GI): Soft to palpation and no guarding Neuro: General: patient oriented x3, No moves all extremities and CN's II-XI intact bilaterally Objective Data Active Medications Albuterol Sulfate (Albuterol Sulfate 90 Mcg 8 Gm Inhaler) 2 puff INHALE RQ4H PRN PRN Reason: Wheezing Clonidine HCl (Clonidine Hcl 0.2 Mg Tablet) 0.2 mg PO BEDTIME [facility]; Protocol Last Admin: 06/04/23 21:17 Dose: 0.2 mg Documented By: LO Cyanocobalamin (Cyanocobalamin (Vitamin B-12) 100 Mcg Tablet) 100 mcg PO DAILY [facility] Last Admin: 06/19/23 08:57 Dose: 100 mcg Documented By: AQUILINO Famotidine (Famotidine/Pf 20 Mg/2 Ml Vial) 20 mg IVPUSH BID [facility] Last Admin: 06/19/23 08:57 Dose: 20 mg Documented By: AQUILINO Folic Acid (Folic Acid 1 Mg Tablet) 1 mg PO DAILY [facility] Last Admin: 06/19/23 08:57 Dose: 1 mg Documented By: AQUILINO Gabapentin (Gabapentin 100 Mg Capsule) 100 mg PO TID [facility] Last Admin: 06/19/23 08:57 Dose: 100 mg Documented By: AQUILINO Glucose (Glucose Gel 15 Gm Gel..Gram.) 15 gm PO Q15M PRN; Protocol PRN Reason: per Hypoglycemia Standing Ord. Dextrose (D10) 250 mls @ 750 mls/hr IV Q15M PRN PRN Reason: per Hypoglycemia Standing Ord. Insulin Glargine (Insulin Glargine,Hum.Rec.Anlog 100 Unit/Ml 10 Ml Vial) 20 unit SUBCUT BEDTIME [facility] Last Admin: 06/18/23 21:10 Dose: 20 unit Documented By: RAMAKRISHNA Insulin Human Lispro (Insulin Lispro 100 Unit/Ml 3 Ml Vial) 0 unit SUBCUT QIDACHS [facility]; Protocol Last Admin: 06/19/23 08:57 Dose: 2 unit Documented By: AQUILINO Levothyroxine Sodium (Levothyroxine Sodium 75 Mcg Tablet) 75 mcg PO DAILY@0600 [facility] Last Admin: 06/19/23 06:15 Dose: 75 mcg Documented By: RAMAKRISHNA Lidocaine (Lidocaine 4 % Patch Adh..Patch) 2 patch TRANSDERMA DAILY [facility]; Protocol Last Admin: 06/19/23 08:58 Dose: 2 patch Documented By: AQUILINO Lisinopril (Lisinopril 20 Mg Tablet) 20 mg PO DAILY [facility]; Protocol Last Admin: 06/19/23 08:57 Dose: 20 mg Documented By: AQUILINO Loperamide HCl (Loperamide Hcl 2 Mg Capsule) 4 mg PO Q6H PRN PRN Reason: Diarrhea Melatonin (Melatonin 3 Mg Tablet) 3 mg PO BEDTIME PRN PRN Reason: Insomnia Last Admin: 06/19/23 00:07 Dose: 3 mg Documented By: RAMAKRISHNA Metoprolol Succinate (Metoprolol Succinate Er 100 Mg Tab.Er.24h) 200 mg PO DAILY [facility]; Protocol Last Admin: 06/19/23 08:57 Dose: 200 mg Documented By: AQUILINO Omeprazole (Omeprazole 20 Mg Capsule.Dr) 20 mg PO DAILY@0630 [facility] Last Admin: 06/19/23 06:15 Dose: 20 mg Documented By: RAMAKRISHNA Ondansetron HCl (Ondansetron Hcl 4 Mg/2 Ml Vial) 4 mg IVPUSH Q6H PRN PRN Reason: Nausea and Vomiting Last Admin: 06/09/23 10:33 Dose: 4 mg Documented By: RHONDA Oxycodone HCl (Oxycodone Hcl Immed Release 5 Mg Tablet) 5 mg PO Q6H PRN PRN Reason: Pain, Severe (Pain Scale 7-10) Last Admin: 06/19/23 03:09 Dose: 5 mg Documented By: RAMAKRISHNA Pentoxifylline (Pentoxifylline Er 400 Mg Tablet.Er) 400 mg PO TID [facility] Last Admin: 06/07/23 10:11 Dose: Not Given Documented By: MAYCOL Non-Admin Reason: held Simethicone (Simethicone 80 Mg Tab.Chew) 80 mg PO QIDWMHS PRN PRN Reason: gas Last Admin: 06/15/23 21:04 Dose: 80 mg Documented By: SHANEKA Tamsulosin HCl (Tamsulosin Hcl 0.4 Mg Capsule) 0.4 mg PO DAILY [facility] Last Admin: 06/19/23 08:57 Dose: 0.4 mg Documented By: AQUILINO Venlafaxine HCl (Venlafaxine Hcl Er 150 Mg Cap.Er.24h) 150 mg PO DAILY [facility] Last Admin: 06/19/23 09:11 Dose: 150 mg Documented By: AQUILINO Labs 06/19/23 05:59 06/17/23 05:24 Labs: Laboratory Results - last 24 hr 06/18/23 06/18/23 06/19/23 16:03 21:09 05:59 MCV 90.3 MCH 27.3 MCHC 30.3 L RDW 19.3 H Plt Count 302 MPV 9.3 L Absolute Nucleated RBC 0.020 H Nucleated RBC % (auto) 0.3 H POC Glucose 133 H 245 H 06/19/23 06/19/23 07:22 11:56 MCV MCH MCHC RDW Plt Count MPV Absolute Nucleated RBC Nucleated RBC % (auto) POC Glucose 171 H 156 H Assessment and Plan (1) Acute blood loss anemia: Status: Acute Plan 68 year old female with history of htn, asthma/copd overlap, type 2 diabetes, hld, gerd, who presented on 05/25 for elective Left TKA. She subsequently developed hypotention requiring ICU level of care 315-05/31 and was diagnosed to have b/l segmental PE; hospital course further complicated by probable ischemic colitis and now with rectal bleeding/ acute blood loss anemia UTI likely from hylton placement, has since been removed cx showing aubrie stopped rocephin, completed 3 days Patient reporting ongoing dysuria and pelvic pressure, repeat UA ordered Pulmonary embolus CTA 05/28 with bilateral nonocclusive segmental pulmonary emboli no respiratory symptoms, continues to remain on room air echo with no evidence of right heart strain Left lower extremity ultrasound negative for DVT s/p IVC filter 06/07 started IV heparin 06/13 after being off ac for 8 days, transitioned to eliquis 06/15/23 but patient had bleeding episode on 06/16/23 and drop in HH. AC stopped AC now on hold - plan to resume in two weeks as outpatient and follow CBC, PCP follow up Rectal bleeding/acute blood loss anemia likely due to ischemic colitis from hypotension seen by hematology, as unable to receive blood products (Holiness), treated with IV iron, one dose of procrit CTA abdomen/pelvis 06/06 with no extravasation to suggest site of GI bleeding d/t repeat rectal bleeding, no ac at this time Abdominal pain/gassiness/bloating, unspecified. Resolved encourage oob ambulating and to chair Simethicone prn, IV push pepcid diet advanced to solid food, low fiber Urinary retention (likely secondary to anesthesia/opiates). continue Flomax 0.4mg daily hylton removed 06/16/23, urinating on her own but reporting dysuria and pelvic pressure but refusing to have hylton replaced. will need outpatient follow up with urology Hypokalemia. Resolved likely due to decreased po intake Resolved with replacement Ischemic Colitis seen by GI, underwent sigmoidoscopy 06/03 - c/w with healing ischemic colitis completed course of IV Levaquin/Flagyl trental on hold avoid low blood pressure general surgery following OA s/p L TKA 05/25 PT - patient has been noncompliant with physical therapy Type 2 diabetes Continue SSI, lantus HTN Lisinopril 20mg , metoprolol xl restarted 06/09 lasix, HCTZ, clonidine and verapamil on hold, may consider not restarting as BP has been wnl and to avoid hypotension Hypothyroidism continue synthroid mood continue effexor Obesity BMI 39.0 Discussed importance of weight management as this may be contributing to worsening of other comorbidities Attending Dr. Heard DVT prophylaxis Jazmin RAMIREZ plan for dc home when medically clear, patient declining short term rehab. Discussion with patient and at the bedside, patient continues to require assistance with ambulation and continues to decline full physical therapy session but is adamantly declining short-term rehab Requires ongoing hospitalization secondary to the need for close monitoring of anemia and GI bleeding Quality Stroke Does the patient have a stroke diagnosis?: No VTE Prior VTE?: No VTE Risk Level:: Surgical - very high VTE Device Contraindication: N/A - Device Ordered VTE Drug Contraindication: N/A - Med Ordered
[2023-06-19 14:26] VITALS: BP 115/65; PULSE 82; O2SAT 96
--- NOTE | 2023-06-19 15:13 | PM.EVENT ---
Event Note Date of Service: 06/22/23 Event Note: States she feels well Has BMs today No significant bleeding Tolerating diet well Looks well Hemoglobin seems stable Care as per hospitalist service Hold off on anticoagulation Time Spent With Patient Time: Total time managing care of this patient today ____ minutes.
[2023-06-19 15:23] VITALS: BP 131/60; PULSE 89; RESP 18; TEMP 36.1; O2SAT 99
[2023-06-19 16:13] LABS: Glucose, Whole Blood 154 mg/dL (60-115)
[2023-06-19 18:12] LABS: Appearance Urine Cloudy; Color Urine Yellow; Glucose Urine UA Negative (Negative); Leukocyte Esterase Urine Large (3+) (Negative); Nitrite Urine Negative (Negative); PH 7.5 (5.0-9.0); UMIC TRIGGER UACC YES; Urine Blood Small (1+) (Negative); Urine Ketones Negative (Negative); Urine Protein Trace mg/dL (Neg-Trace)
[2023-06-19 18:18] LABS: Bacteria Urine 1+ (None Seen); Hyaline Casts Urine 0-2 /LPF (0-2); UACC Culture Trigger YES; WBC Urine >50 /HPF (0-5)
[2023-06-19 19:10] VITALS: BP 148/67; PULSE 89; RESP 20; TEMP 37.8; O2SAT 99
[2023-06-19 20:25] LABS: Glucose, Whole Blood 173 mg/dL (60-115)
[2023-06-19] MEDS: Insulin Glargine,Hum.rec.anlog 100 UNIT/ML 10 ML VIAL 20 UNIT SUBCUT (23:50)
[2023-06-20] VITALS: BP 155/83; PULSE 93; RESP 20; TEMP 37.1; O2SAT 97
[2023-06-20 01:00] VITALS: RESP 20
[2023-06-20 04:00] VITALS: BP 133/63; PULSE 88; RESP 20; TEMP 36.4; O2SAT 94
[2023-06-20] MEDS: Omeprazole 20 MG CAPSULE.DR PO (05:33)
[2023-06-20] MEDS: Levothyroxine Sodium 75 MCG TABLET PO (05:33)
[2023-06-20 07:57] VITALS: BP 160/75; PULSE 86; RESP 16; TEMP 36.6; O2SAT 95
[2023-06-20 08:03] LABS: Glucose, Whole Blood 156 mg/dL (60-115)
[2023-06-20] MEDS: Metoprolol Succinate ER 100 MG TAB.ER.24H 200 MG PO (08:21)
[2023-06-20] MEDS: Cyanocobalamin (Vitamin B-12) 100 MCG TABLET PO (08:21)
[2023-06-20] MEDS: lisinopriL 20 MG TABLET PO (08:21)
[2023-06-20] MEDS: Gabapentin 100 MG CAPSULE PO (08:22)
[2023-06-20] MEDS: Folic Acid 1 MG TABLET PO (08:22)
[2023-06-20] MEDS: Insulin Lispro 100 UNIT/ML 3 ML VIAL SUBCUT (08:22)
[2023-06-20] MEDS: Tamsulosin HCL 0.4 MG CAPSULE PO (08:22)
[2023-06-20] MEDS: Venlafaxine HCl ER 150 MG CAP.ER.24H PO (08:22)
[2023-06-20 08:30] LABS: Hematocrit 27.6 % (37.0-47.0); Hemoglobin 8.4 g/dl (12.0-16.0)
--- NOTE | 2023-06-20 11:36 | MHC.CM.PN ---
Addendum entered by Fabby Corral 06/20/23 11:49: CLAIRE TRANTIOORT BOOKED FOR 1330 Original Note: CM MET WITH PT AND AT BEDSIDE WITH GROUNDS AND NURSERY SPECIALIST PT CONTINUES TO REFUSE STR CM DISCUSSED OPTIONS INCLUDING HOME WITH VNA AND STR AGAIN, PT STATES SHE HAS BEEN INPT FOR 20+ DAYS AND WANTS TO GET HOME PTS DID EXPRESS CONCERNS ABOUT PT BEING INCONTINENT OF STOOL AND HIS ABILITY TO CLEAN HER UP CM CLARIFIED WITH PT, SHE DOES NOT HAVE DATA CENTER CONSULTANT, SHE HAS COVERAGE ANALYST SERVICES, SO THEY DO NOT DO PERSONAL CARE DESPITE THESE CONCERNS, PT STILL UNWILLING TO CONSIDER STR CM DID DELIVER PTS MEDICARE RIGHTS AND REMINDED THEM THEY HAVE THE RIGHT TO APPEAL IF THEY DO NOT FEEL READY, THEY BOTH DECLINED AND STATED AGAIN THEY WOULD LIKE TO GET HOME. PER DISCUSSION, THEY USUALLY GET THEIR PRESCRIPTIONS FILLED AT [facility] OR [facility], HOWEVER BOTH ARE CLOSED THEY REQUESTED THE SCRIPTS BE SENT TO [facility] ON [address], UPDATED IN EMR THEY ARE ALSO REQUESTING A WALKER, CM WILL CONTACT RN SEALANT MIXER TO DETERMINE IF THERE ARE ANY IN STORAGE. PT WILL TRANSPORT VIA BLS, THEY WOULD LIEK TO GO EARLY POSSIBLE SHE WILL DC WITH [facility]
[2023-06-20 12:00] VITALS: BP 160/75; PULSE 86; RESP 16; TEMP 36.6; O2SAT 95
[2023-06-20 12:00] LABS: Glucose, Whole Blood 124 mg/dL (60-115)
--- NOTE | 2023-06-20 12:07 | P.F2F_ITS ---
Service Date Service Date: 06/20/23 Encounter Date of encounter: 06/20/23 Reasons for Services Signs and symptoms assessed: needs assisted for medication reconciliation, monitoring of oxygen saturation and blood pressure Reason for assisted: medication management Reason for physical therapy: home safety and mobility, therapeutic exercises and gait/transfer training MD Overseeing Care: Breanna Zamudio Homebound: Leaving the home is medically contraindicated at this time without the asist of a device and/or another person due th the listed conditions above and below. Reason homebound: unsteady gait / fall risk and weakness related to hospital stay Certification: Based on the above findings, I certify that this patient is confined to the home and needs intermittent assisted care, physical therapy and/or speech therapy, or continues to need occupational therapy. The patient is under my care, and I have initiated the establishment of the plan of care. The patient will be followed by a physician who will periodically review the plan of care. Time Spent With Patient Time: Total time managing care of this patient today ____ minutes.
== END 2023-06-20 14:43 | disposition home health service (06) | DRG 469 ==
LOC: HO.SSSA 08:34 → HO.S3 11:37 → HO.ICU 05-29 06:05 → HO.S3 06-01 11:45 → HO.IMC 06-05 16:51
PROVIDERS: Hospitalist; Internal Medicine; Internal Medicine Critical Care Medicine; Internal Medicine Gastroenterology; Internal Medicine Pulmonary Disease; Nurse Practitioner; Nurse Practitioner Acute Care; Nurse Practitioner Family; Orthopaedic Surgery; Physician Assistant; Physician Assistant Medical; Student in an Organized Health Care Education/Training Program; Surgery Vascular Surgery; Admitting Provider Physician Assistant; PCP Nurse Practitioner Primary Care; Visit Provider Physician Assistant Medical
PROC: 0SRD0J9 Replacement of Left Knee Joint with Synthetic Substitute, Cemented, Open Approach (ICD-10-PCS; CPT 27447; principal; 2023-05-26 09:40)
PROC: 0DJD8ZZ Inspection of Lower Intestinal Tract, Via Natural or Artificial Opening Endoscopic (ICD-10-PCS; CPT 45330; principal; 2023-06-04 15:10)
PROC: 06H03DZ Insertion of Intraluminal Device into Inferior Vena Cava, Percutaneous Approach (ICD-10-PCS; principal; 2023-06-08 11:00)
DX: M17.12 Unilateral primary osteoarthritis, left knee (principal); G92.8 Other toxic encephalopathy; I26.99 Other pulmonary embolism without acute cor pulmonale; T83.511A Infection and inflammatory reaction due to indwelling urethral catheter, initial encounter; B37.49 Other urogenital candidiasis; N17.9 Acute kidney failure, unspecified; Z68.41 Body mass index [BMI] 40.0-44.9, adult; K57.32 Diverticulitis of large intestine without perforation or abscess without bleeding; K55.8 Other vascular disorders of intestine; D62 Acute posthemorrhagic anemia; R33.9 Retention of urine, unspecified; I10 Essential (primary) hypertension; D47.2 Monoclonal gammopathy; J44.9 Chronic obstructive pulmonary disease, unspecified; E87.6 Hypokalemia; Y73.8 Miscellaneous gastroenterology and urology devices associated with adverse incidents, not elsewhere classified; K21.9 Gastro-esophageal reflux disease without esophagitis; E11.65 Type 2 diabetes mellitus with hyperglycemia; T40.605A Adverse effect of unspecified narcotics, initial encounter; E66.01 Morbid (severe) obesity due to excess calories; I95.81 Postprocedural hypotension; E03.9 Hypothyroidism, unspecified; G89.18 Other acute postprocedural pain; Z79.4 Long term (current) use of insulin; Z79.51 Long term (current) use of inhaled steroids; Z79.84 Long term (current) use of oral hypoglycemic drugs; Z79.890 Hormone replacement therapy; Z79.899 Other long term (current) drug therapy
CPT/HCPCS: 36415; 37191; 70450; 71045; 71275; 73560; 74018; 74176; 74177; 78278; 80048; 80053; 80202; 81001; 82040; 82272; 82803; 82947; 83605; 83735; 84100; 84132; 84443; 84484; 85007; 85014; 85018; 85025; 85027; 85379; 85610; 85730; 86140; 87040; 87086; 87088; 87493; 87640; 87641; 88305; 88311; 88342; 92950; 93005; 93306; 93971; 94640; 97110; 97116; 97162; 97530; 97535; A9560; C1713; C1758; C1776; C9113; J0131; J0690; J0696; J1170; J1644; J1650; J1756; J1836; J1956; J2250; J2270; J2310; J2405; J2543; J2704; J2795; J3010; J3370; J3371; J3475; J3480; J7120; P9047; Q5106; Q9967

== ENCOUNTER 2023-05-26 07:16 | Outpatient (BNV) | payer OTHER, SELFPAY | END 2023-05-30 07:41 | PROVIDERS: Admitting Provider Physician Assistant; PCP Nurse Practitioner Primary Care; Visit Provider Internal Medicine Cardiovascular Disease | DX: R00.0 Tachycardia, unspecified (principal); R94.31 Abnormal electrocardiogram [ECG] [EKG] | CPT/HCPCS: 93010 ==

== ENCOUNTER → 2023-05-26 07:16 | Outpatient (BNV) | payer OTHER, SELFPAY | PROVIDERS: Admitting Provider Physician Assistant; PCP Nurse Practitioner Primary Care; Visit Provider Orthopaedic Surgery | DX: A09 Infectious gastroenteritis and colitis, unspecified (principal); Z96.659 Presence of unspecified artificial knee joint; I26.09 Other pulmonary embolism with acute cor pulmonale; E11.9 Type 2 diabetes mellitus without complications; R33.9 Retention of urine, unspecified; Z68.35 Body mass index [BMI] 35.0-35.9, adult; Z96.652 Presence of left artificial knee joint | CPT/HCPCS: 27447; 99024 ==

== ENCOUNTER → 2023-05-26 07:16 | Outpatient (BNV) | payer OTHER, SELFPAY | PROVIDERS: Admitting Provider Physician Assistant; PCP Nurse Practitioner Primary Care; Visit Provider Internal Medicine | DX: I26.99 Other pulmonary embolism without acute cor pulmonale (principal) | CPT/HCPCS: 99222; 99231 ==

== ENCOUNTER → 2023-05-26 07:16 | Outpatient (BNV) | payer OTHER, SELFPAY | PROVIDERS: Admitting Provider Physician Assistant; PCP Nurse Practitioner Primary Care; Visit Provider Internal Medicine Critical Care Medicine | DX: I26.99 Other pulmonary embolism without acute cor pulmonale (principal); E11.9 Type 2 diabetes mellitus without complications; K52.9 Noninfective gastroenteritis and colitis, unspecified; Z96.652 Presence of left artificial knee joint; I10 Essential (primary) hypertension | CPT/HCPCS: 36556; 99291; 99292; 99499 ==

== ENCOUNTER → 2023-05-26 07:16 | Outpatient (BNV) | payer OTHER, SELFPAY | PROVIDERS: Admitting Provider Physician Assistant; PCP Nurse Practitioner Primary Care; Visit Provider Surgery | DX: K55.9 Vascular disorder of intestine, unspecified (principal) | CPT/HCPCS: 99223; 99231; 99232; 99499 ==

== ENCOUNTER → 2023-05-26 07:16 | Outpatient (BNV) | payer OTHER, SELFPAY | PROVIDERS: Admitting Provider Physician Assistant; PCP Nurse Practitioner Primary Care; Visit Provider Urology | DX: R33.9 Retention of urine, unspecified (principal); E11.9 Type 2 diabetes mellitus without complications | CPT/HCPCS: 99222 ==

== ENCOUNTER → 2023-05-26 07:16 | Outpatient (BNV) | payer OTHER, SELFPAY | PROVIDERS: Admitting Provider Physician Assistant; PCP Nurse Practitioner Primary Care; Visit Provider Internal Medicine Gastroenterology | DX: K55.9 Vascular disorder of intestine, unspecified (principal); K52.9 Noninfective gastroenteritis and colitis, unspecified | CPT/HCPCS: 45331; 99223; 99232 ==

== ENCOUNTER → 2023-05-26 07:16 | Outpatient (BNV) | payer OTHER, SELFPAY | PROVIDERS: Admitting Provider Physician Assistant; PCP Nurse Practitioner Primary Care; Visit Provider Surgery Vascular Surgery | DX: I26.09 Other pulmonary embolism with acute cor pulmonale (principal) | CPT/HCPCS: 37191; 99222; 99232 ==

== ENCOUNTER → 2023-05-26 07:16 | Outpatient (BNV) | payer OTHER, SELFPAY | PROVIDERS: Admitting Provider Physician Assistant; PCP Nurse Practitioner Primary Care; Visit Provider Physician Assistant | DX: I26.99 Other pulmonary embolism without acute cor pulmonale (principal); K55.9 Vascular disorder of intestine, unspecified; Z96.659 Presence of unspecified artificial knee joint; R33.9 Retention of urine, unspecified; D62 Acute posthemorrhagic anemia | CPT/HCPCS: 99222; 99232; 99233; 99239; 99499; G0180 ==

== ENCOUNTER → 2023-05-26 07:16 | Outpatient (BNV) | payer OTHER, SELFPAY | PROVIDERS: Admitting Provider Physician Assistant; PCP Nurse Practitioner Primary Care; Visit Provider Internal Medicine Pulmonary Disease | DX: I26.99 Other pulmonary embolism without acute cor pulmonale (principal); J44.89 Other specified chronic obstructive pulmonary disease; E11.9 Type 2 diabetes mellitus without complications; Z96.652 Presence of left artificial knee joint; D47.2 Monoclonal gammopathy; K52.9 Noninfective gastroenteritis and colitis, unspecified | CPT/HCPCS: 99232 ==

== ENCOUNTER 2023-06-11 07:16 | Outpatient (RCR) | payer OTHER, SELFPAY | END 2023-08-05 13:35 | disposition home or self-care (01) | LOC: HO.PT 07:16 | PROVIDERS: PCP Nurse Practitioner Primary Care; Visit Provider Physician Assistant | DX: Z96.652 Presence of left artificial knee joint (principal) ==

== ENCOUNTER 2023-08-14 10:03 | Outpatient (AMB) | payer OTHER, SELFPAY ==
--- NOTE | 2023-08-14 10:32 | MHC.OFFVIS ---
Intake Visit Reasons: 6 wk PO-LT TKA 05/26/23 NE Intake Note: Lois is a 68 year old female who presents today for a post operative appointment, s/p Left TKA 05/26/23. Post operative bleeding complications. She complains of pain and swelling, difficulty with gait initiation. Allergies hazelnut Allergy (Mild, Verified 05/26/23 07:56) per allergy skin test peanut Allergy (Mild, Verified 05/26/23 07:56) per allergy skin test HPI HPI 6 wk PO-LT TKA 05/26/23 NE: Details: Lois is a 68 year old female who presents today for a post operative appointment, s/p Left TKA 05/26/23. Post operative bleeding complications. She complains of pain and swelling, difficulty with gait initiation. [facility] Medical History Colitis, infectious Chronic restrictive lung disease Obesity (BMI 30.0-34.9) Cough due to SHANELLE inhibitor Eosinophilia Asthma HTN (hypertension) T2DM (type 2 diabetes mellitus) Erosive gastritis Leg edema, left Hyperparathyroidism Vitamin D deficiency Multinodular thyroid Thyroid nodule Skin lesion of chest wall Type 2 diabetes mellitus with diabetic polyneuropathy Fibromyalgia Depression with anxiety Cervical cancer Osteoarthritis of left knee Osteopenia GERD (gastroesophageal reflux disease) Diabetes mellitus with hyperglycemia Meir's disease Other specified acquired hypothyroidism Hyperlipidemia LDL goal <100 Essential hypertension Vitamin B12 deficiency Other obesity due to excess calories BMI 35.0-35.9,adult Surgical History Hx of elbow surgery Hx of hand surgery Hx of arthroscopic knee surgery History of cholecystectomy History of arthroplasty of right knee Hx of hysterectomy Hx of foot surgery History of bilateral carpal tunnel release Hx of bilateral oophorectomy History of esophagogastroduodenoscopy (EGD) Hx of colonoscopy Family History Father CVD (cardiovascular disease) Diabetes mellitus Stroke Mother Stroke Diabetes mellitus Breast cancer Hyperthyroidism Social History Household Members: Spouse Housing: House Housing Other:: 2nd floor-2 family house Are you a primary cardiac care nurse to a significant other at home: No Do you presently have visiting nurse or other home services: Yes ([employer]) Alcohol intake: never Comment: continues with camera Patient Tobacco Use Status: Never used Tobacco service: No 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al status: disabled 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: Right Handed Female Reproductive History Menstrual Age of Menarche: 11 Physical Exam Extrem Other: inc c/d/i 0-120 deg motion Assessment & Plan Assessment & Plan (1) Status post knee replacement: Code(s): Z96.659 - Presence of unspecified artificial knee joint Category: Surgical Plan: s/p left TKA with post operative complications extending stay in hospital. She is improving. Outpatient PT. f/u 3 mo Orders: Orders PT Evaluation and Treatment Today Z96.659 - Presence of unspecified artificial knee joint Coding Level of Care Code Global (67391) Diagnoses Status post knee replacement Z96.659
== END 2023-08-14 11:10 | disposition home or self-care (01) ==
PROVIDERS: PCP Nurse Practitioner Primary Care; Visit Provider Orthopaedic Surgery
DX: Z96.659 Presence of unspecified artificial knee joint (principal)
CPT/HCPCS: 99024

== ENCOUNTER → 2023-08-14 10:03 | Outpatient (BNVA) | payer OTHER, SELFPAY | PROVIDERS: PCP Nurse Practitioner Primary Care; Visit Provider Orthopaedic Surgery | DX: Z47.1 Aftercare following joint replacement surgery (principal); Z96.659 Presence of unspecified artificial knee joint | CPT/HCPCS: 99212 ==

== ENCOUNTER 2023-10-09 13:01 | Outpatient (AMB) | payer OTHER, SELFPAY ==
[2023-10-09 13:07] VITALS: BP 146/68; PULSE 68; BMI 30.9
--- NOTE | 2023-10-09 13:07 | MHC.OFFVIS ---
Vital Signs 10/09/23 13:07 Height 5 ft 5 in Weight 185 lb 13.595 oz BMI 30.9 BP 146/68 H Blood Pressure Location Lt brachial Position Sitting Pulse 68 Pulse Source Pulse Oximeter Intake Visit Reasons: Type 2 DM Intake Note: Patient presents today to follow up on DMT. Last Diabetic Eye exam: 12/2022 Last Podiatry Visit: Doesn't have one. Random Glucose:96 mg/dl HgA1c: 9.4% Heel Cementer Required: Yes Heel Cementer Language: Occupational Therapy Manager Services: Heel Cementer Present Information Interpreted: non-clinical & clinical Accompanied by: Self / Same As Patient Allergies hazelnut Allergy (Mild, Verified 10/09/23 13:14) per allergy skin test peanut Allergy (Mild, Verified 10/09/23 13:14) per allergy skin test HPI Comments Details: This is a 68-year-old female with a past medical history of nontoxic multinodular goiter, type 2 diabetes, hypothyroidism, secondary hyperparathyroidism, hypertension, hyperlipidemia , COPD and PE on chronic anticoagulation presenting for diabetes follow up. It is my 1st visit with the patient. Egyptian video biotechnologist used for appointment. Reviewed download from CGM today: Time CGM active: 55% Average glucose 198 Glucose variability 27.9% Target range 70 to 180 mg/dL 36% of the time High 180-250 mg/dL 46% of the time Very high over 250 mg/dL 17% of the time Low 54-69 1% of the time Very low less than 54 mg/dL 0% of the time Hemoglobin a1c 9.4% today Current regimen: Ozempic 0.5 mg Actos 15 mg q.a.m. Metformin ER 1000 mg b.i.d. Lantus 38 units at bedtime Jardiance 25 mg q.a.m. Diet: Breaskfast: eggs, sausages, coffee with cream and 0 sugar sweetener, zero sugar Lunch: salad with chicken Dinner: rice, steak and salad Sometimes she has sweets when she craves it. She only does this once per month now. Denies neuropathy symptoms. Hyperglycemia symptoms: denies Hypoglycemia symptoms: denies Eye exam: December 2022, unsure if neuropathy The patient has hypertension, on lisinopril 20 mg daily. Hyperlipidemia is treated with rosuvastatin 40 mg. She endorses hair thinning x 1 month. Requests TSH level. Patient is taking levothyroxine 75 mcg daily. She was hospitalized for about 3 months following left knee transplant complications.Patient says she lost about 50 lb with hospitalization. The patient was previously evaluated for compressive symptoms of the neck and had an ultrasound which showed a multi nodular goiter. She saw Dr. Barger. She underwent FNA biopsy of a right midpole 1.2 cm nodule on 03/01/2021, benign cytology. She was scheduled for a thyroidectomy, but it is unclear why she did not have this surgery. Preoperative labs revealed elevated PTH. Per Dr. Barger's notes her repeat labs confirmed secondary hyperparathyroidism. She has never had kidney stones. ROS: Constitutional: No unexplained weight loss, fever, chills or night sweats. Eyes: No vision change Gastrointestinal: No anorexia, nausea, vomiting or diarrhea. No abdominal pain Neurologic: No headache, dizziness, syncope Skin: No rash Endocrine: No cold or heat intolerance. No polyuria or polydipsia. Physical exam: Constitutional: Alert, in no distress. Eyes: Pupils are equal, round and reactive to light. Extraocular muscles intact. Neck: Supple, Full range of motion. No lymphadenopathy. No palpable thyroid masses. Respiratory: Clear to auscultation. Cardiovascular: S1 S2 regular. No murmurs. Feet: No lesions or ulcers, feet are warm and well perfused, B/L decreased vibratory sensation, mildly decreased sensation bilaterally to monofilament PFSH Medical History Colitis, infectious Chronic restrictive lung disease Obesity (BMI 30.0-34.9) Cough due to SHANELLE inhibitor Eosinophilia Asthma HTN (hypertension) T2DM (type 2 diabetes mellitus) Erosive gastritis Leg edema, left Hyperparathyroidism Vitamin D deficiency Multinodular thyroid Thyroid nodule Skin lesion of chest wall Type 2 diabetes mellitus with diabetic polyneuropathy Fibromyalgia Depression with anxiety Cervical cancer Osteoarthritis of left knee Osteopenia GERD (gastroesophageal reflux disease) Diabetes mellitus with hyperglycemia Meir's disease Other specified acquired hypothyroidism Hyperlipidemia LDL goal <100 Essential hypertension Vitamin B12 deficiency Other obesity due to excess calories BMI 35.0-35.9,adult Surgical History Hx of elbow surgery Hx of hand surgery Hx of arthroscopic knee surgery History of cholecystectomy History of arthroplasty of right knee Hx of hysterectomy Hx of foot surgery History of bilateral carpal tunnel release Hx of bilateral oophorectomy History of esophagogastroduodenoscopy (EGD) Hx of colonoscopy Family History Father CVD (cardiovascular disease) Diabetes mellitus Stroke Mother Stroke Diabetes mellitus Breast cancer Hyperthyroidism Social History Household Members: Spouse Housing: House Housing Other:: 2nd floor-2 family house Are you a primary before and after school daycare worker to a significant other at home: No Do you presently have visiting nurse or other home services: Yes (DCS ENGINEER) Alcohol intake: never Comment: continues with camera Patient Tobacco Use Status: Never used Tobacco service: No 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al status: disabled 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: Right Handed Female Reproductive History Menstrual Age of Menarche: 11 Results AMB Hemoglobin A1c AMB Hemoglobin A1c 9.4 % Last Edit by ALBIN Owens on 10/09/23 13:43 Assessment & Plan Assessment & Plan (1) Type 2 diabetes mellitus with diabetic polyneuropathy: Code(s): E11.42 - Type 2 diabetes mellitus with diabetic polyneuropathy Category: Medical Qualifiers: Diabetes mellitus long-term insulin use: with long-term use Qualified Code(s): E11.42 - Type 2 diabetes mellitus with diabetic polyneuropathy; Z79.4 - detention (current) use of insulin (2) Hyperparathyroidism: Code(s): E21.3 - Hyperparathyroidism, unspecified Category: Medical (3) Multinodular thyroid: Code(s): E04.2 - Nontoxic multinodular goiter Category: Medical Plan Pleasant, 68-year-old female with uncontrolled type 2 diabetes. Increase Ozempic to 1 mg once weekly. Monitor for increased GI side effects. Continue other diabetic medications. Recommended patient scan at least 4 times daily so we have adequate data to review at these appointments. Lifestyle modifications reviewed. Referred back to structural steel painter. We will check TSH. Patient advised that hair thinning/hair loss is common after significant physiologic stress/weight loss, and this may be related to her hospitalization during the past few months. Patient would like to see Dermatology if TSH is normal. Check vitamin-D, calcium, PTH. We will have the patient follow up with Dr. Barger in a few months for hyperparathyroidism, multinodular goiter, hypothyroidism and diabetes. Orders: Orders TSH reflex Free T4 Today E04.1 - Nontoxic single thyroid nodule, E11.65 - Type 2 diabetes mellitus with hyperglycemia, E21.3 - Hyperparathyroidism, unspecified, Z79.4 - detention (current) use of insulin Creatinine Today E04.1 - Nontoxic single thyroid nodule, E11.65 - Type 2 diabetes mellitus with hyperglycemia, E21.3 - Hyperparathyroidism, unspecified, Z79.4 - detention (current) use of insulin Vitamin D 1,25 dihydroxy Today E04.1 - Nontoxic single thyroid nodule, E11.65 - Type 2 diabetes mellitus with hyperglycemia, E21.3 - Hyperparathyroidism, unspecified, Z79.4 - detention (current) use of insulin AMB Hemoglobin A1c Today E11.42 - Type 2 diabetes mellitus with diabetic polyneuropathy, Z13.9 - Encounter for screening, unspecified, Z79.4 - detention (current) use of insulin Parathyroid Hormone Intact Today E04.1 - Nontoxic single thyroid nodule, E11.65 - Type 2 diabetes mellitus with hyperglycemia, E21.3 - Hyperparathyroidism, unspecified, Z79.4 - intermodal truck driver (current) use of insulin Calcium Today E04.1 - Nontoxic single thyroid nodule, E11.65 - Type 2 diabetes mellitus with hyperglycemia, E21.3 - Hyperparathyroidism, unspecified, Z79.4 - detention (current) use of insulin Medications: New semaglutide (Ozempic) 1 mg (0.75 mL) subcut QWEEK 3 mL 4RF Coding Level of Care Code Est Pt Level 5 (53913) Complex EM visit Add On G2211 Diagnoses Type 2 diabetes mellitus with diabetic polyneuropathy, with long-term current use of insulin E11.42; Z79.4 Diabetes mellitus marine oil terminal superintendent insulin use: with long-term use Hyperparathyroidism E21.3 Multinodular thyroid E04.2 Time Spent (min) 48 Comment Reviewing the chart, seeing the patient, coordinating treatment
[2023-10-09 13:20] LABS: Glucose, Whole Blood 96 mg/dL (60-115)
== END 2023-10-09 14:23 | disposition home or self-care (01) ==
PROVIDERS: PCP Nurse Practitioner Primary Care; Visit Provider Physician Assistant Medical
DX: E11.42 Type 2 diabetes mellitus with diabetic polyneuropathy (principal); Z79.4 Long term (current) use of insulin; E21.3 Hyperparathyroidism, unspecified; E04.2 Nontoxic multinodular goiter
CPT/HCPCS: 99215; G2211

== ENCOUNTER 2023-10-09 13:01 | Outpatient (REF) | payer OTHER, SELFPAY ==
[2023-10-09 15:33] LABS: Calcium 10.1 mg/dL (8.4-10.2); Estimated Glomerular Filt Rate > 60
[2023-10-09 15:49] LABS: TSH reflex Free T4 1.18 uIU/mL (0.32-4.0)
[2023-10-09 15:53] LABS: Parathyroid Hormone Intact 64.6 pg/mL (8.7-77.1)
[2023-11-02 12:18] LABS: Vitamin D (1,25 OH) D2 <8
[2023-11-02 12:19] LABS: VITAMIN D (1,25 OH) D3 46; Vit D (1,25-Dihydroxy) Total 46
== END 2023-10-09 13:02 | disposition home or self-care (01) ==
LOC: HO.LAB 13:01
PROVIDERS: PCP Nurse Practitioner Primary Care; Visit Provider Physician Assistant Medical
DX: E11.65 Type 2 diabetes mellitus with hyperglycemia (principal); E11.42 Type 2 diabetes mellitus with diabetic polyneuropathy; Z79.4 Long term (current) use of insulin; E21.3 Hyperparathyroidism, unspecified; E04.2 Nontoxic multinodular goiter
CPT/HCPCS: 36415; 82310; 82565; 82652; 82947; 83036; 83970; 84443; 99212

== ENCOUNTER 2023-11-30 13:13 | Outpatient (AMB) | payer OTHER, SELFPAY ==
--- NOTE | 2023-11-30 13:21 | A.OFFVIS_ITS ---
Vital Signs 11/30/23 13:24 Height 5 ft 5 in Weight 191 lb 12.835 oz BMI 31.9 BP 153/68 H Blood Pressure Location Lt brachial Position Sitting Pulse 77 Intake Visit Reasons: 6 month follow up Intake Note: Lois presents in the office as a 6 month follow up. CC: Routine follow up - she states her only concern is her legs have been swelling up. She is not sure what it is coming from. Head Insulation Board Saw Operator Required: Yes Head Insulation Board Saw Operator Name: Corey [id number] Allergies hazelnut Allergy (Mild, Verified 11/30/23 13:25) per allergy skin test peanut Allergy (Mild, Verified 11/30/23 13:25) per allergy skin test HPI HPI 6 month follow up: Details: 68 year old female with hx of T2DM (on Insulin), hypothyroidism, COPD, hypertension, hyperlipidemia, vitamin D deficiency, hyperparathyroidism and obesity who I am for f/u RECAP: I saw her for assessment for colitis as inpatient 06/06 Patient was initially admitted about 1 week prior to admission s/p L TKR. She had issues with urine retention and also had syncopal episodes with low blood pressure requiring narcan and fluids, ICU management with discovery of b/l PTE. She had noted diarrhea since surgery and worsening left sided constant aching pain 10/10 worse with eating food and relieved by taking morphine. she has some nausea, but denies vomiting. Stools are loose with small amounts of blood seen. Appetite remained poor, knee is healing nicely. Ct imaging x2 over last few days --latest one with desc and sigmoid colo mural thickening, no diverticulitis on fluid collections noted. Sigmoidoscopy: 05/2023: appearances consistent with ischemic colitis, Colonoscopy 01/05 with severe diverticulosis and removal of x 1 small polyp. INTERIM: occ nausea epigastric discomfort, sometimes worse with food no constipation she has occ diarrhea no vomiting she has reflux, dexilant usu works EXAM: GENERAL: The patient is well developed and nontoxic. VITAL SIGNS:see workflow HEENT: Nonicteric sclerae, PERRLA, EOMI. Oropharynx clear. Moist mucous membranes. Conjunctivae appear well perfused. No thyroid mass. CHEST: Chest wall is nontender. HEART: Regular rate and rhythm without murmurs. LUNGS: Clear to auscultation bilaterally. ABDOMEN: Soft, positive bowel sounds, mildly tender epigastrium, no organomegaly.no flank tenderness SKIN: No rash, no excessive bruising, petechiae, or purpura. NEUROLOGIC: Cranial nerves II-XII intact without motor/sensory deficit. Psych: normal affect A/P: 1/ EGD- hold jardiance for 3 d and ozempic for 1 week, 1/2 dose lantus night before, hold eliquis for 2 d before 2/US abdo 3/ check HGB and iron studies PFSH Medical History Asthma-COPD overlap syndrome Hypertension Diabetes MGUS (monoclonal gammopathy of unknown significance) Chronic restrictive lung disease Obesity (BMI 30.0-34.9) Cough due to SHANELLE inhibitor Eosinophilia Asthma T2DM (type 2 diabetes mellitus) Erosive gastritis Leg edema, left Hyperparathyroidism Vitamin D deficiency Multinodular thyroid Thyroid nodule Skin lesion of chest wall Type 2 diabetes mellitus with diabetic polyneuropathy Fibromyalgia Depression with anxiety Cervical cancer Osteoarthritis of left knee Osteopenia GERD (gastroesophageal reflux disease) Diabetes mellitus with hyperglycemia Meir's disease Other specified acquired hypothyroidism Hyperlipidemia LDL goal <100 Essential hypertension Vitamin B12 deficiency Other obesity due to excess calories BMI 35.0-35.9,adult Surgical History Hx of elbow surgery Hx of hand surgery Hx of arthroscopic knee surgery History of cholecystectomy History of arthroplasty of right knee Hx of hysterectomy Hx of foot surgery History of bilateral carpal tunnel release Hx of bilateral oophorectomy History of esophagogastroduodenoscopy (EGD) Hx of colonoscopy Family History Father CVD (cardiovascular disease) Diabetes mellitus Stroke Mother Stroke Diabetes mellitus Breast cancer Hyperthyroidism Social History Household Members: Spouse Housing: House Housing Other:: 2nd floor-2 family house Are you a primary child care assistant to a significant other at home: No Do you presently have visiting nurse or other home services: Yes (CYTOTECHNOLOGIST/CYTOLOGY SUPERVISOR) Alcohol intake: never Comment: continues with camera Patient Tobacco Use Status: Never used Tobacco service: No 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al status: disabled 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: Right Handed Female Reproductive History Menstrual Age of Menarche: 11 Physical Exam Vital Signs: Last Vital Signs Pulse 77 11/30/23 13:24 BP 153/68 H 11/30/23 13:24 BMI result Body Mass Index 31.9 Assessment & Plan Assessment & Plan (1) Ischemic colitis: Code(s): K55.9 - Vascular disorder of intestine, unspecified Category: Medical Plan: see above (2) Acute blood loss anemia: Code(s): D62 - Acute posthemorrhagic anemia Category: Medical Plan: see above (3) Epigastric abdominal pain: Code(s): R10.13 - Epigastric pain Category: Medical Plan: see above Orders: Orders Comprehensive Met. Panel Today D62 - Acute posthemorrhagic anemia, K55.9 - Vascular disorder of intestine, unspecified, K75.81 - Nonalcoholic steatohepatitis ([place]), R10.13 - Epigastric pain Ferritin Today D62 - Acute posthemorrhagic anemia, K55.9 - Vascular disorder of intestine, unspecified, R10.13 - Epigastric pain IRON PROFILE Today D62 - Acute posthemorrhagic anemia, K55.9 - Vascular disorder of intestine, unspecified, R10.13 - Epigastric pain Vitamin B5 (Pantothenic Acid) Today D62 - Acute posthemorrhagic anemia, K55.9 - Vascular disorder of intestine, unspecified, R10.13 - Epigastric pain Vitamin B6 Today D62 - Acute posthemorrhagic anemia, K55.9 - Vascular disorder of intestine, unspecified, R10.13 - Epigastric pain Complete Blood Count Auto Diff Today D62 - Acute posthemorrhagic anemia, K55.9 - Vascular disorder of intestine, unspecified, R10.13 - Epigastric pain Immunoglobulins,IgG IgA IgM Today D62 - Acute posthemorrhagic anemia, K55.9 - Vascular disorder of intestine, unspecified, R10.13 - Epigastric pain Vitamin B12 and Folate Today D62 - Acute posthemorrhagic anemia, K55.9 - Vascular disorder of intestine, unspecified, R10.13 - Epigastric pain Vitamin B1 Today D62 - Acute posthemorrhagic anemia, K55.9 - Vascular disorder of intestine, unspecified, R10.13 - Epigastric pain Vitamin B3 (Niacin) Today D62 - Acute posthemorrhagic anemia, K55.9 - Vascular disorder of intestine, unspecified, R10.13 - Epigastric pain Vitamin C Today D62 - Acute posthemorrhagic anemia, K55.9 - Vascular disorder of intestine, unspecified, R10.13 - Epigastric pain Zinc Today D62 - Acute posthemorrhagic anemia, K55.9 - Vascular disorder of intestine, unspecified, R10.13 - Epigastric pain US abdomen complete Today D62 - Acute posthemorrhagic anemia, K55.9 - Vascular disorder of intestine, unspecified, R10.13 - Epigastric pain Coding Level of Care Code Est Pt Level 4 (63384) Diagnoses Ischemic colitis K55.9 Acute blood loss anemia D62 Epigastric abdominal pain R10.13
[2023-11-30 13:24] VITALS: BP 153/68; PULSE 77; BMI 31.9
== END 2023-11-30 13:57 | disposition home or self-care (01) ==
PROVIDERS: PCP Nurse Practitioner Primary Care; Visit Provider Internal Medicine Gastroenterology
DX: K55.9 Vascular disorder of intestine, unspecified (principal); D62 Acute posthemorrhagic anemia; R10.13 Epigastric pain
CPT/HCPCS: 99214

== ENCOUNTER 2023-11-30 13:13 | Outpatient (REF) | payer OTHER, SELFPAY ==
[2023-11-30 15:27] LABS: MANUAL DIFF FLAG NO
[2023-11-30 16:15] LABS: Basophils Absolute Auto 0.1 X10*3/uL (0.0-0.2); Basophils Percent Auto 0.6 % (0-2); Eosinophils Absolute Auto 0.2 X10*3/uL (0.0-0.4); Eosinophils Percent Auto 1.4 % (0-4); Hematocrit 45.4 % (37.0-47.0); Hemoglobin 15.1 g/dl (12.0-16.0); Imm Gran Abs Auto 0.05 X10*3/uL (0.00-0.03); Imm Gran Pct Auto 0.4 % (0.0-0.4); Lymphocytes Absolute Auto 2.9 X10*3/uL (1.2-4.9); Lymphocytes Percent Auto 25.5 % (20-40); Mean Corpuscular HGB Conc 33.3 g/dl (31.0-35.0); Mean Corpuscular Hemoglobin 27.7 pg (27.0-33.0); Mean Corpuscular Volume 83.2 fL (80.0-98.0); Mean Platelet Volume 10.6 fL (9.4-12.3); Monocytes Absolute Auto 0.7 X10*3/uL (0.1-1.2); Monocytes Percent Auto 6.3 % (2-11); Neutrophils Absolute Auto 7.5 x10*3/uL (2.0-8.3); Neutrophils Percent Auto 65.8 % (45-73); Platelet Count 263 X10*3/uL (160-400); Red Blood Count 5.46 X10*6/uL (4.20-5.50); Red Cell Distribution Width 14.1 % (11.0-16.0); White Blood Count 11.4 X10*3/uL (4.8-10.8)
[2023-11-30 16:43] LABS: Alanine Aminotransferase 31 U/L (0-31); Albumin Level 4.3 g/dL (3.5-5.0); Alkaline Phosphatase 107 U/L (39-117); Anion Gap 14 (12-20); Aspartate Amino Transferase 18 U/L (5-31); Bilirubin Total 0.9 mg/dL (0.0-1.0); Blood Urea Nitrogen 15 mg/dL (9-16); Calcium 10.1 mg/dL (8.4-10.2); Carbon Dioxide 25 mmol/L (22-29); Chloride 105 mmol/L (96-108); Estimated Glomerular Filt Rate > 60; Glucose Random 153 mg/dL (60-115); Iron 99 mcg/dL (30-160); Percent Iron Saturation 33 % (15-50); Potassium 3.7 mmol/L (3.3-5.1); Sodium 140 mmol/L (135-145); Total Iron Binding Capacity 297 mcg/dL (228-428); Total Protein 8.2 g/dL (6.5-8.0); Unsaturated Iron Binding 198 ug/dL
[2023-11-30 17:07] LABS: Ferritin 457 ng/mL (10-250)
[2023-11-30 17:25] LABS: Folate 13.8 ng/mL (> or = 4.0); Vitamin B12 401 pg/mL (200-900)
[2023-12-01 22:13] LABS: IgA 472 mg/dL (70-320); IgG 1520 mg/dL (600-1540); IgM 52 mg/dL (50-300)
[2023-12-04 01:38] LABS: Zinc 64 mcg/dL (60-130)
[2023-12-04 11:17] LABS: Vitamin C 0.5 mg/dL (0.3-2.7)
[2023-12-04 14:28] LABS: Vitamin B1 8 nmol/L (8-30)
[2023-12-04 17:18] LABS: Vitamin B6 8.8 ng/mL (2.1-21.7)
[2023-12-05 14:28] LABS: Vitamin B5 (Pantothenic Acid) 58 ng/mL (<275)
[2023-12-06 14:27] LABS: Nicotinamide <20 ng/mL (see note); Vit B3 - Nicotinic Acid <20 ng/mL (see note)
== END 2023-11-30 13:14 | disposition home or self-care (01) ==
LOC: HO.LAB 13:13
PROVIDERS: PCP Nurse Practitioner Primary Care; Visit Provider Internal Medicine Gastroenterology
DX: K55.9 Vascular disorder of intestine, unspecified (principal); K75.81 Nonalcoholic steatohepatitis (NASH); D62 Acute posthemorrhagic anemia; R10.13 Epigastric pain; Z79.4 Long term (current) use of insulin
CPT/HCPCS: 36415; 80053; 82180; 82607; 82728; 82746; 82784; 83540; 84207; 84425; 84591; 84630; 85025; 99212

== ENCOUNTER 2023-12-10 09:39 | Outpatient (REF) | payer OTHER, SELFPAY ==
--- NOTE | ~2023-12-10 | US_ITS ---
EXAMINATION: US ABDOMEN COMPLETE CLINICAL INFORMATION: Acute posthemorrhagic anemia. Epigastric pain. COMPARISON: X-ray abdomen KUB 06/12/2023. CT abdomen and pelvis 06/07/2023. Ultrasound abdomen 04/15/2011. TECHNIQUE: Real-time imaging of the abdominal viscera. FINDINGS: PANCREAS: Normal. ABDOMINAL AORTA: The proximal, mid, and distal segments are normal in caliber. INFERIOR VENA CAVA: Visualized portions are normal. LIVER: The liver is normal in size. The liver contour is normal. There is diffuse increased liver parenchymal echogenicity, consistent with hepatic steatosis. No focal hepatic lesion. There is no intrahepatic biliary duct dilatation seen. GALLBLADDER: Surgically absent. COMMON BILE DUCT: Normal in caliber measuring 0.4 cm in diameter. RIGHT KIDNEY: Normal. No hydronephrosis. No renal calculi or focal parenchymal lesions. The kidney measures 11.8 cm in maximum dimension. LEFT KIDNEY: No calculi. Some hypoechoic structures are seen in the renal sinus, likely benign parapelvic cysts as can be seen on the 06/07/2023 CT scan, which need no additional imaging or followup. The kidney measures 9.2 cm in maximum dimension. A benign lower pole 3.7 cm Bosniak class I renal cyst is noted which requires no additional imaging or followup. No solid renal masses are seen. SPLEEN: Normal. The spleen measures 7.5 cm in maximum dimension. FREE FLUID: None. US/US abdomen complete IMPRESSION: Hepatic steatosis. Electronically signed by: Juve Bone MD 01/28/2024 01:11 PM [facility] [place]
== END 2023-12-10 09:40 | disposition home or self-care (01) ==
LOC: HO.US 09:39
PROVIDERS: PCP Nurse Practitioner Primary Care; Visit Provider Internal Medicine Gastroenterology
DX: R10.13 Epigastric pain (principal); K55.9 Vascular disorder of intestine, unspecified; D62 Acute posthemorrhagic anemia
CPT/HCPCS: 76700

== ENCOUNTER 2023-12-11 11:55 | Outpatient (AMB) | payer OTHER, SELFPAY ==
[2023-12-11 11:57] VITALS: BMI 31.8
--- NOTE | 2023-12-11 11:57 | A.OFFVIS_ITS ---
Vital Signs 12/11/23 11:57 Height 5 ft 5 in Weight 191 lb BMI 31.8 Intake Visit Reasons: 6 wk PO-LT TKA 05/26/23 NE Intake Note: Lois is a 68 year old female who presents today for a follow up of her left knee s/p Left TKA 05/26/23. She has post operative complications, not related to the knee. Allergies hazelnut Allergy (Mild, Verified 11/30/23 13:25) per allergy skin test peanut Allergy (Mild, Verified 11/30/23 13:25) per allergy skin test HPI HPI 6 wk PO-LT TKA 05/26/23 NE: Details: This is a 68-year-old woman who had a knee replacement proximally 6 months ago. Postoperative complications were experienced and she has been having a workup for some sort of hypercoagulable lability and this may have related to her postoperative complications that required an ICU stay. Her stomach has improved however and she has been feeling better. She had a very difficult go of the 1st 3 months after surgery and this did result in some moderate stiffness of the left knee. She had similar result from her right knee so overall she is satisf ied with her knee. [facility] Medical History Asthma-COPD overlap syndrome Hypertension Diabetes MGUS (monoclonal gammopathy of unknown significance) Chronic restrictive lung disease Obesity (BMI 30.0-34.9) Cough due to SHANELLE inhibitor Eosinophilia Asthma T2DM (type 2 diabetes mellitus) Erosive gastritis Leg edema, left Hyperparathyroidism Vitamin D deficiency Multinodular thyroid Thyroid nodule Skin lesion of chest wall Type 2 diabetes mellitus with diabetic polyneuropathy Fibromyalgia Depression with anxiety Cervical cancer Osteoarthritis of left knee Osteopenia GERD (gastroesophageal reflux disease) Diabetes mellitus with hyperglycemia Meir's disease Other specified acquired hypothyroidism Hyperlipidemia LDL goal <100 Essential hypertension Vitamin B12 deficiency Other obesity due to excess calories BMI 35.0-35.9,adult Surgical History Hx of elbow surgery Hx of hand surgery Hx of arthroscopic knee surgery History of cholecystectomy History of arthroplasty of right knee Hx of hysterectomy Hx of foot surgery History of bilateral carpal tunnel release Hx of bilateral oophorectomy History of esophagogastroduodenoscopy (EGD) Hx of colonoscopy Family History Father CVD (cardiovascular disease) Diabetes mellitus Stroke Mother Stroke Diabetes mellitus Breast cancer Hyperthyroidism Social History Household Members: Spouse Housing: House Housing Other:: 2nd floor-2 family house Are you a primary long term acute care registered nurse to a significant other at home: No Do you presently have visiting nurse or other home services: Yes (KNIFE SETTER ASSEMBLER) Alcohol intake: never Comment: continues with camera Patient Tobacco Use Status: Never used Tobacco service: No 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al status: disabled 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: Right Handed Female Reproductive History Menstrual Age of Menarche: 11 Physical Exam Vital Signs: BMI result Body Mass Index 31.8 Extrem Other: inc c/d/i 0-110 Walks without antalgia Assessment & Plan Assessment & Plan (1) Status post knee replacement: Code(s): Z96.659 - Presence of unspecified artificial knee joint Category: Surgical Plan: Status post knee replacement. Her motion is slightly restricted in flexion but the incision looks good and she has no swelling and her function seems reasonable. We will like to see her back in approximately 6 months but there is no intervention warranted at this time. C Coding Level of Care Code Est Pt Level 3 (62347) Diagnoses Status post knee replacement Z96.659
== END 2023-12-11 13:16 | disposition home or self-care (01) ==
PROVIDERS: PCP Nurse Practitioner Primary Care; Visit Provider Orthopaedic Surgery
DX: Z47.89 Encounter for other orthopedic aftercare (principal); Z96.652 Presence of left artificial knee joint
CPT/HCPCS: 99212

== ENCOUNTER → 2023-12-11 11:55 | Outpatient (BNVA) | payer OTHER, SELFPAY | PROVIDERS: PCP Nurse Practitioner Primary Care; Visit Provider Orthopaedic Surgery | DX: Z96.652 Presence of left artificial knee joint (principal) | CPT/HCPCS: 99212 ==

== ENCOUNTER 2024-01-07 13:54 | Outpatient (AMB) | payer OTHER, SELFPAY ==
[2024-01-07 13:56] VITALS: BP 142/68; BMI 33.1
--- NOTE | 2024-01-07 13:56 | A.OFFVIS_ITS ---
Vital Signs 01/07/24 13:56 Height 5 ft 5 in Weight 199 lb 1.239 oz BMI 33.1 BP 142/68 H Blood Pressure Location Lt brachial Position Sitting Intake Visit Reasons: hyperparathyroidism/DM/hypothyroid Intake Note: Patient presents today for D2MT, hyperparathyroidism and hypothyroid follow up visit. Last Diabetic Eye exam: 01/2023 Last Podiatry Visit:09/2023 Random Glucose: 133 mg/dl HgA1c: 7.7% Biology Faculty Member Required: Yes Biology Faculty Member Language: Marketing Planning Manager Services: Biology Faculty Member Present Biology Faculty Member Name: Brad [id number] Information Interpreted: non-clinical & clinical Accompanied by: Self / Same As Patient Allergies hazelnut Allergy (Mild, Verified 01/07/24 14:02) per allergy skin test peanut Allergy (Mild, Verified 01/07/24 14:02) per allergy skin test HPI Comments Details: 68 YO Female with a PMHx of a NTMNG. She is seen in F/U for T2DM. 1) T2DM: Current regimen Metformin 1000 mg PO BID, Jardiance 25 mg PO daily, Pioglitazone 15 mg PO daily, Ozempic 1 mg once a week and Lantus 34 units qHS. Manuelito download shows she is using the sensor 42% of the time with two views per day. Average glucose is 182. 57% in target and 43% above target and 0% below target. Pad and shows post-lunch and post-dinner hypoglycemia Reports low sugars occasionally Does not have eyes checked yearly, last eye exam last yr - has appt Jan 2024 , unsure if retinopathy. Has neuropathy, does not see podiatry. Unsure if nephropathy, on Lisinopril 40 mg PO daily. UAC 23.9 08/15/2022. Has HLD, on Rosuvastatin 40 mg PO daily. LDL 70 08/15/2022. Denies CAD. Diet: High in refined carbs. Weight: Stable Has not had diabetes education. 2) NTMNG and Hyperparathyroidism: She was complaining of compressive symptoms and underwent an US of the thyroid 11/20/20. This revealed a heterogenous thyroid gland, with multiple subcentimeter nodules. It appeared the nodules had been incorrectly measured, so I scheduled her for an FNA biopsy where I remeasured the nodules myself. She underwent FNA biopsy of a RMP 1.2 cm nodule 03/01/2021, which benign cytology. She does complain of mild intermittent dysphagia to solids, but otherwise has no complaints. She did insist on a total thyroidectomy, and is scheduled for this in November. Preoperative labs revealed elevated PTH. She was asked to repeat these, which confirmed what appears to be secondary hyperparathyroidism. She did not undergo her surgery for unknown reasons. Her labs 04/10/2021 with Calcium 9.1, Albumin 4.0, PTH 113 and Vitamin D 31.8. She denies ever having kidney stones. She does report she recently started taking Calcium 600 mg, but only takes this once a day and often forgets. She is poorly compliant with her Vitamin D as well. DEXA revealed osteopenia of the spine and the hip. DEXA: 05/14/2021 FINDINGS: AP SPINE L1-L4: Current: BMD 0.978 g/cm2, Z-score -0.9, T-score -1.7, osteopenia, 0.0% no change from previous, 4.4% increase from baseline (<5% change is not significant). Prior: BMD 0.978 g/cm2. Baseline: BMD 0.937 g/cm2. LEFT FEMUR, NECK: Current: BMD 0.850 g/cm2, Z-score -0.4, T-score -1.4, osteopenia. Prior: BMD 0.916 g/cm2. Baseline: BMD 0.971 g/cm2. LEFT FEMUR, TOTAL: Current: BMD 0.993 g/cm2, Z-score 0.6, T-score -0.1, normal, 2.3% decrease from previous, 8.8% decrease from baseline (<5% change is not significant). Prior: BMD 1.016 g/cm2. Baseline: BMD 1.089 g/cm2. LEFT FOREARM RADIUS 33%: BMD 0.809 g/cm2, Z-score 0.8, T-score -0.8, normal. Prior: Not previously measured. Thyroid US: Right Thyroid Lobe: 3.5 x 1.1 x 1.5 cm, volume 3.0 mL. Parenchyma: The gland echotexture is heterogeneous. Thyroid vascularity is normal. Left Thyroid Lobe: 3.7 x 2.0 x 1.5 cm, volume 5.8 mL. Parenchyma: The gland echotexture is heterogeneous. Thyroid vascularity is normal. Isthmus: 0.4 cm in maximum AP dimension. Estimated total number of nodules greater than or equal to 1 cm: 0. Shopfitter nodules are described as follows: 1. Location: Right mid. ?? ? Size: 0.78 x 0.85 x 0.67 cm, volume 0.23 mL. ?? ? Nodule characteristics: ?? ? Composition: Solid/almost completely solid (2). ?? ? Echogenicity: Isoechoic (1). ?? ? Shape: Taller than wide (3). ?? ? Margins: Smooth (0). ?? ? Echogenic Foci: None (0). ?? ? ACR TI-RADS total points: 6 ?? ? ACR TI-RADS category: 4 2. Location: Right mid. ?? ? Size: 0.56 x 0.4 x 0.45 cm, volume 0.05 mL. ?? ? Nodule characteristics: ?? ? Composition: Solid/almost completely solid (2). ?? ? Echogenicity: Isoechoic (1). ?? ? Shape: Not taller than wide (0). ?? ? Margins: Smooth (0). ?? ? Echogenic Foci: None (0). ?? ? ACR TI-RADS total points: 3 ?? ? ACR TI-RADS category: 3 NODES: No lymphadenopathy is seen in the tissue surrounding the thyroid gland. Labs: Laboratory Tests 05/16/21 05/16/21 06/05/21 15:37 15:37 12:10 Sodium Potassium Creatinine Estimated GFR Hgb A1c (Clinic) Hemoglobin A1c % Albumin LDL Cholesterol Direct 25-OH Vitamin D Total TSH Free T4 PTH Intact 95 H Calcium (PTH Intact) 9.6 Ur 24 Hour Volume 1600 Ur Creatinine 24 Hour 1.3 Microalb/Creat Ratio Ur Calcium 24 Hr 120 09/04/21 09/04/21 10/16/21 14:12 14:12 01:32 Sodium 140 Potassium 4.6 Creatinine 0.87 0.83 Estimated GFR > 60 > 60 Hgb A1c (Clinic) Hemoglobin A1c % Albumin 3.9 LDL Cholesterol Direct 25-OH Vitamin D Total 21.6 TSH 2.02 Free T4 1.09 PTH Intact 130 H Calcium (PTH Intact) 9.1 Ur 24 Hour Volume Ur Creatinine 24 Hour Microalb/Creat Ratio Ur Calcium 24 Hr 09/11/0411/21/21 03/24/22 10:22 10:29 08:13 Sodium 140 Potassium 4.3 Creatinine 0.85 Estimated GFR > 60 Hgb A1c (Clinic) Hemoglobin A1c % Albumin LDL Cholesterol Direct 170 H 25-OH Vitamin D Total TSH Free T4 PTH Intact Calcium (PTH Intact) Ur 24 Hour Volume Ur Creatinine 24 Hour Microalb/Creat Ratio 55.1 Ur Calcium 24 Hr 06/02/22 08/15/22 08/15/22 13:18 12:35 12:35 Sodium Potassium Creatinine Estimated GFR Hgb A1c (Clinic) 9.6 H Hemoglobin A1c % 8.1 Albumin 4.0 LDL Cholesterol Direct 25-OH Vitamin D Total 33.8 TSH 2.94 Free T4 1.16 PTH Intact Calcium (PTH Intact) Ur 24 Hour Volume Ur Creatinine 24 Hour Microalb/Creat Ratio Ur Calcium 24 Hr 08/15/22 08/15/22 12:35 13:45 Sodium Potassium Creatinine Estimated GFR Hgb A1c (Clinic) Hemoglobin A1c % Albumin LDL Cholesterol Direct 70 25-OH Vitamin D Total TSH Free T4 PTH Intact 97 H Calcium (PTH Intact) 9.7 Ur 24 Hour Volume Ur Creatinine 24 Hour Microalb/Creat Ratio 23.9 Ur Calcium 24 Hr PFSH Medical History Asthma-COPD overlap syndrome Hypertension Diabetes MGUS (monoclonal gammopathy of unknown significance) Chronic restrictive lung disease Obesity (BMI 30.0-34.9) Cough due to SHANELLE inhibitor Eosinophilia Asthma T2DM (type 2 diabetes mellitus) Erosive gastritis Leg edema, left Hyperparathyroidism Vitamin D deficiency Multinodular thyroid Thyroid nodule Skin lesion of chest wall Type 2 diabetes mellitus with diabetic polyneuropathy Fibromyalgia Depression with anxiety Cervical cancer Osteoarthritis of left knee Osteopenia GERD (gastroesophageal reflux disease) Diabetes mellitus with hyperglycemia Meir's disease Other specified acquired hypothyroidism Hyperlipidemia LDL goal <100 Essential hypertension Vitamin B12 deficiency Other obesity due to excess calories BMI 35.0-35.9,adult Surgical History Hx of elbow surgery Hx of hand surgery Hx of arthroscopic knee surgery History of cholecystectomy History of arthroplasty of right knee Hx of hysterectomy Hx of foot surgery History of bilateral carpal tunnel release Hx of bilateral oophorectomy History of esophagogastroduodenoscopy (EGD) Hx of colonoscopy Family History Father CVD (cardiovascular disease) Diabetes mellitus Stroke Mother Stroke Diabetes mellitus Breast cancer Hyperthyroidism Social History Household Members: Spouse Housing: House Housing Other:: 2nd floor-2 family house Are you a primary floor care technician to a significant other at home: No Do you presently have visiting nurse or other home services: Yes (HEAD INSPECTOR) Alcohol intake: never Comment: continues with camera Patient Tobacco Use Status: Never used Tobacco service: No 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al status: disabled 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: Right Handed Female Reproductive History Menstrual Age of Menarche: 11 Physical Exam Vital Signs: Last Vital Signs BP 142/68 H 01/07/24 13:56 BMI result Body Mass Index 33.1 Absence of Cushingoid features. Absence of acromegalic features. Neck exam reveals nl size thyroid about 15 gms. No thyroid nodules palpable. No carotid bruits present. Lungs CTA. Heart S1 S2, Reg R/R. No M/R/ G. Skin exam reveals absence of vitiligo or acanthosis nigricans. Abdominal exam reveals Soft NT/ND with NA BS. No organomegaly present. Neck Other: . Extrem Other: Visual exam of foot performed. No ulcerations or open lesions. No onchomycosis, no callouses.Pulses 2 + distally Sensation intact to monofilament exam. Vibratory sensation sensed is decreased with 128 Hz tuning fork. There is 2+ edema present both lower extremities Results AMB Hemoglobin A1c AMB Hemoglobin A1c 7.7 % Last Edit by ALBIN Owens on 01/07/24 14:35 Results Reviewed Results Reviewed: Laboratory Last Values Glucose (Clinic) 133 mg/dL (60-115) H 01/07/24 14:05 Assessment & Plan Assessment & Plan (1) Diabetes mellitus with hyperglycemia: Code(s): E11.65 - Type 2 diabetes mellitus with hyperglycemia Category: Medical Qualifiers: Diabetes mellitus equipment operator intermodal yard insulin use: with intermediate use Diabetes mellitus type: type 2 Qualified Code(s): E11.65 - Type 2 diabetes mellitus with hyperglycemia; Z79.4 - equipment operator intermodal yard (current) use of insulin Plan: This 68-year-old female with a history of type 2 diabetes being treated with metformin, pioglitazone, Jardiance, Ozempic and basal insulin with fair not optimal glycemic control with known microvascular complications namely neuropathy . Plan is to increase the Ozempic to 2 mg Q weekly. If patient continues to have post-meal elevation, may need addition of prandial insulin before lunch and dinner. Will check lipid profile will stop the pioglitazone because of the increased leg edema. Can follow-up with [facility] in [address] [place] [address] (2) Hyperparathyroidism: Code(s): E21.3 - Hyperparathyroidism, unspecified Category: Medical Plan: PTH has now normalized on calcium and vitamin-D supplementation. No need for any further endocrine follow-up will workup regarding hyperparathyroidism the patient returned to the care of her primary care provider (3) Other specified acquired hypothyroidism: Code(s): E03.8 - Other specified hypothyroidism Category: Medical Plan: Clinically and biochemically euthyroid on levothyroxine 75 mcg. At this point, case should follow up with her primary care provider returned back to endocrinology as necessary regarding her hypothyroidism Orders: Orders AMB Hemoglobin A1c Today E11.42 - Type 2 diabetes mellitus with diabetic polyneuropathy, Z13.9 - Encounter for screening, unspecified, Z79.4 - snf (current) use of insulin Medications: New semaglutide (Ozempic) 2 mg (0.75 mL) subcut QWEEK 3 mL 5RF Refilled insulin glargine (Lantus Solostar U-100 Insulin) 20 units (0.2 mL) subcut BEDTIME 15 mL 0RF Discontinued semaglutide (Ozempic) Discontinued Reason: Doctor's Order 1 mg (0.75 mL) subcut QWEEK 3 mL 4RF Coding Level of Care Code Est Pt Level 4 (67025) Complex EM visit Add On G2211 Diagnoses Type 2 diabetes mellitus with hyperglycemia, with long-term current use of insulin E11.65; Z79.4 Diabetes mellitus equipment operator intermodal yard insulin use: with equipment operator intermodal yard use Diabetes mellitus type: type 2 Hyperparathyroidism E21.3 Other specified acquired hypothyroidism E03.8
[2024-01-07 14:10] LABS: Glucose, Whole Blood 133 mg/dL (60-115)
== END 2024-01-07 14:28 | disposition home or self-care (01) ==
PROVIDERS: PCP Nurse Practitioner Primary Care; Visit Provider Internal Medicine Endocrinology, Diabetes & Metabolism
DX: E11.65 Type 2 diabetes mellitus with hyperglycemia (principal); Z79.4 Long term (current) use of insulin; E21.3 Hyperparathyroidism, unspecified; E03.8 Other specified hypothyroidism; Z13.9 Encounter for screening, unspecified; E11.42 Type 2 diabetes mellitus with diabetic polyneuropathy
CPT/HCPCS: 99214; G2211

== ENCOUNTER → 2024-01-07 13:54 | Outpatient (BNVA) | payer OTHER, SELFPAY | PROVIDERS: PCP Nurse Practitioner Primary Care; Visit Provider Internal Medicine Endocrinology, Diabetes & Metabolism | DX: E11.65 Type 2 diabetes mellitus with hyperglycemia (principal); E11.42 Type 2 diabetes mellitus with diabetic polyneuropathy; E21.3 Hyperparathyroidism, unspecified; E03.8 Other specified hypothyroidism; Z79.4 Long term (current) use of insulin | CPT/HCPCS: 82947; 83036; 99212 ==

== ENCOUNTER 2024-02-15 13:44 | Outpatient (AMB) | payer OTHER, SELFPAY ==
--- NOTE | 2024-02-15 13:47 | MHC.OFFVIS ---
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 Intake Note: New patient with ekg dx HTN was seen last in 2018 c/o chest pain Producer Arborist Manager Required: Yes Producer Arborist Manager Services: Producer Arborist Manager Present Producer Arborist Manager Name: [facility] [place] Allergies hazelnut Allergy (Mild, Verified 01/07/24 14:02) per allergy skin test peanut Allergy (Mild, Verified 01/07/24 14:02) per allergy skin test Medication List - Last Reconciled 02/15/24 by Justen Padilla MD acetaminophen ER 650 mg PO TID albuterol sulfate 90 mcg/actuation (Ventolin HFA) 90 mcg inhalation Q4H PRN albuterol sulfate 1 amp inhalation Q4H PRN apixaban (Eliquis) 5 mg PO BID 90 days aspirin 325 mg PO ONCE blood sugar diagnostic As directed celecoxib 200 mg PO PRN cholecalciferol (vitamin D3) 50 mcg PO QAM clonidine HCl 0.1 mg PO BID commode (bedside commode) As directed cyanocobalamin (vitamin B-12) 1,000 mcg PO DAILY dexlansoprazole 60 mg PO DAILY docusate sodium 100 mg PO BID 14 days empagliflozin (Jardiance) 25 mg PO QAM flash glucose scanning reader (KonbiniStyle Manuelito 2 [place]) As directed flash glucose sensor (FreeStyle Manuelito 2 Sensor kit) USE DIRECTED TO CHECK BLOOD SUGAR CHANGE EVERY 14 DAYS fluticasone propionate 50 mcg/actuation 1 spray intranasal DAILY fdaurblrixg-crqljeqks-ucnsujjn 200-62.5-25 mcg (Trelegy Ellipta) 1 ea inhalation DAILY gabapentin 100 mg PO TID 90 days insulin glargine (Lantus Solostar U-100 Insulin) 20 units (0.2 mL) subcut BEDTIME lancets (OneTouch Delica Plus Lancet) As directed levothyroxine 75 mcg PO QAM linaclotide (Linzess) 290 mcg PO QAM lisinopril 40 mg PO DAILY meclizine 25 mg PO DAILY PRN metformin ER 1,000 mg (2 x 500 mg) PO BID 30 days metoprolol succinate ER 200 mg PO DAILY rmgvqpdkurkh-qoxd-hlzxj acid 18-400 mg-mcg (Certavite-Antioxidant) 1 tab PO DAILY ondansetron 4 mg PO Q6-8H PRN oxycodone 10 mg PO QID PRN pioglitazone 15 mg PO QAM psyllium husk (Reguloid (psyllium husk)) 3 grams PO DAILY rosuvastatin 40 mg PO DAILY semaglutide (Ozempic) 2 mg (0.75 mL) subcut QWEEK tamsulosin 0.4 mg PO DAILY 90 days trazodone mg PO venlafaxine ER 150 mg PO DAILY HPI Comments Details: Lois was referred here for control or management of hypertension. History was obtained with help of threading machine feeder automatic. She says a almost every day she gets symptoms of palpitation where she feels rapid irregular heartbeat that can last up to an hour. There is no clear aggravating or triggering factors. She usually then takes aspirin and symptoms subside sometimes an hour. Can recur in the day. This is associated with shortness of breath and chest pressure/tightness. She was admitted earlier this spring after knee surgery for prolonged period time because she developed blood clots and subsequently started on blood thinners. She subsequently developed bleeding complication from a lower GI tract. However subsequently was managed with oral anticoagulation Eliquis and remains on Eliquis more than 6 months post 30 event. She is also on full dose aspirin therapy. She says she was never told if she could take dual therapy or not. She has been on ask print for long period time. She was prior history of hypertension, currently well controlled on today's exam. She has also history of diabetes as well as hyperlipidemia. Never had a vascular event in form of coronary artery disease or stroke. Never had any cause of cardiac arrhythmias no history of heart failure. [facility] Medical History Asthma-COPD overlap syndrome Hypertension Diabetes MGUS (monoclonal gammopathy of unknown significance) Chronic restrictive lung disease Obesity (BMI 30.0-34.9) Cough due to SHANELLE inhibitor Eosinophilia Asthma T2DM (type 2 diabetes mellitus) Erosive gastritis Leg edema, left Hyperparathyroidism Vitamin D deficiency Multinodular thyroid Thyroid nodule Skin lesion of chest wall Type 2 diabetes mellitus with diabetic polyneuropathy Fibromyalgia Depression with anxiety Cervical cancer Osteoarthritis of left knee Osteopenia GERD (gastroesophageal reflux disease) Diabetes mellitus with hyperglycemia Meir's disease Other specified acquired hypothyroidism Hyperlipidemia LDL goal <100 Essential hypertension Vitamin B12 deficiency Other obesity due to excess calories BMI 35.0-35.9,adult Surgical History Hx of elbow surgery Hx of hand surgery Hx of arthroscopic knee surgery History of cholecystectomy History of arthroplasty of right knee Hx of hysterectomy Hx of foot surgery History of bilateral carpal tunnel release Hx of bilateral oophorectomy History of esophagogastroduodenoscopy (EGD) Hx of colonoscopy Family History Father CVD (cardiovascular disease) Diabetes mellitus Stroke Mother Stroke Diabetes mellitus Breast cancer Hyperthyroidism Social History Household Members: Spouse Housing: House Housing Other:: 2nd floor-2 family house Are you a primary senior care manager to a significant other at home: No Do you presently have visiting nurse or other home services: Yes (COMMERCIAL ESTIMATOR) Alcohol intake: never Comment: continues with camera Patient Tobacco Use Status: Never used Tobacco service: No 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al status: disabled 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: Right Handed Female Reproductive History Menstrual Age of Menarche: 11 Review of Systems Const Denies chills, Denies fatigue, Denies fever(s), Denies frequent falls, Denies weakness, Denies weight gain and Denies weight loss Eyes Denies loss of vision ENT Denies dizziness Card Denies chest pain, Denies leg edema, Denies lightheadedness, Denies palpitations, Denies dyspnea, Denies dyspnea on exertion, Denies orthopnea and Denies other (loss of consciousness) Resp Denies cough, Denies dyspnea, Denies dyspnea on exertion and Denies wheezing GI Denies hematochezia and Denies change in stool character Denies urinary frequency and Denies dysuria Musc Denies abnormal gait, Denies muscle weakness, Denies numbness, Denies radiating pain into limb and Denies tingling Skin/Breast Denies nail changes and Denies rash Neuro Denies abnormal gait, Denies dizziness, Denies frequent falls, Denies loss of vision, Denies memory loss, Denies numbness, Denies tingling and Denies weakness Psych Denies depression and Denies memory loss Endo Denies fatigue and Denies palpitations Joseph/Lymph Reports easy bruising and Reports other (anemia) Aller/Immun Denies wheezing Physical Exam Vital Signs: Last Vital Signs Pulse 80 02/15/24 13:48 BP 120/80 02/15/24 13:48 BMI result Body Mass Index 32.3 Const General: cooperative, comfortable, no acute distress, alert and awake Nutritional Appearance: obese Orientation/consciousness: patient oriented x3 Limitations: no limitations HEENT Head: Yes normocephalic and Yes atraumatic Neck Neck: Yes trachea midline, Yes supple and Yes no JVD Resp Effort & Inspection: normal respiratory effort Auscultation: clear to auscultation bilaterally Cardio Jugular venous distension: no JVD Palpation: normal PMI Rate: regular rate Rhythm: regular rhythm Heart sounds: S1 normal heart sound present, S2 normal heart sound present, no click, no gallops and no murmurs GI Auscultation: normal bowel sounds Skin General skin exam: no rashes or lesions noted Neuro General: patient oriented x3 and no focal motor deficits Extrem General: Yes no clubbing, cyanosis or edema Psych Appearance: grossly normal Affect: Anxious affect present Office Procedures EKG Details: EKG shows normal sinus rhythm nonspecific ST changes [id number]-[id number], Complete Assessment & Plan Assessment & Plan (1) Palpitations: Code(s): R00.2 - Palpitations Category: Medical Plan: Patients with episodes of palpitation that last for up to an hour prolonged palpitations. Concern would be presence of atrial fibrillation given her multiple risk factors. Suggest a 7 day Holter monitor to further assess for the same. She is already on high dose of metoprolol therapy and would not add any other pharmacotherapy unless we have a diagnostic Holter/EKG. This was discussed with her. She understands agrees. We discussed about stress mitigation strategies. Avoidance of stimulants was discussed. Further management based on the findings of Holter monitor. (2) Atypical chest pain: Code(s): R07.89 - Other chest pain Category: Medical Plan: Palpitation associated with chest discomfort. She has multiple risk factors for obstructive coronary artery disease. Has not had any recurrent evaluation for myocardial ischemia. Will suggest a vasodilating myocardial perfusion imaging to further assess for the same. This was discussed with her. She understands agrees. Currently on Eliquis as well as full-dose aspirin therapy, need to reconsider this as she has significant bleeding issues in the past requiring transfusions. Consider stopping aspirin if Eliquis is indicated for long-term use. Continue aggressive control blood pressure which on today's exam is well optimized. Continue aggressive diabetes management goal hemoglobin A1c less than 7%. Goal LDL less than 70 mg/dL. Will follow up in the clinic after above-mentioned test. Thank you for allowing me to partake in her care Coding Level of Care Code New Pt Level 4 (37350) Complex EM visit Add On G2211 Diagnoses Palpitations R00.2 Atypical chest pain R07.89 CPT Codes EKG - CPT: 69014-[id number], Complete ([id number])
[2024-02-15 13:48] VITALS: BP 120/80; PULSE 80; BMI 32.3
== END 2024-02-15 14:24 | disposition home or self-care (01) ==
PROVIDERS: PCP Nurse Practitioner Primary Care; Visit Provider Internal Medicine Cardiovascular Disease
DX: R00.2 Palpitations (principal); R07.89 Other chest pain; I49.1 Atrial premature depolarization
CPT/HCPCS: 93010; 99214; G2211

== ENCOUNTER → 2024-02-15 13:44 | Outpatient (BNVA) | payer OTHER, SELFPAY | PROVIDERS: PCP Nurse Practitioner Primary Care; Visit Provider Internal Medicine Cardiovascular Disease | DX: I10 Essential (primary) hypertension (principal); R07.89 Other chest pain; R00.2 Palpitations; E78.5 Hyperlipidemia, unspecified; E11.9 Type 2 diabetes mellitus without complications; Z79.01 Long term (current) use of anticoagulants | CPT/HCPCS: 93005; 99212 ==

== ENCOUNTER → 2024-02-22 09:21 | Outpatient (REF) | payer OTHER, SELFPAY | LOC: HO.CARD 09:21 | PROVIDERS: PCP Nurse Practitioner Primary Care; Visit Provider Internal Medicine Cardiovascular Disease | DX: R00.2 Palpitations (principal) | CPT/HCPCS: 93242 ==

== ENCOUNTER → 2024-02-22 09:24 | Outpatient (BNV) | payer OTHER, SELFPAY | PROVIDERS: PCP Nurse Practitioner Primary Care; Visit Provider Internal Medicine | DX: I47.10 Supraventricular tachycardia, unspecified (principal) | CPT/HCPCS: 93244 ==

== ENCOUNTER → 2024-03-14 09:07 | Outpatient (REF) | payer OTHER, SELFPAY ==
--- NOTE | ~2024-03-14 | NM_ITS ---
Lexiscan Myocardial perfusion study Indication: Atypical chest pain to evaluate for myocardial ischemia Technique: The patient was brought in for a Lexiscan perfusion study on March 14, 2024 and was injected 0.4 mg of Lexiscan intravenously. Within a minute of this injection 30 mCi of sestamibi was given intravenously. Images were obtained using the SPECT gamma camera interlaced with the gating device. Images were obtained in supine position. Resting perfusion study was performed on March 17, 2024. Patient was administered 30 mCi of sestamibi intravenously at rest. Images were then obtained in supine position. Images obtained without without CT attenuation. Total DLP 110 mGy-cm. Images were processed with the software and compared side to side in short axis, horizontal long axis and vertical long axis views. Findings: The stress perfusion study showed nonattenuated images show small area mildly reduced uptake of the basal inferior wall of the LV myocardium. Remainder of the LV myocardium normally perfused. Attenuated corrected images show moderately reduced uptake in the apex of the LV myocardium. The gated study shows normal LV systolic function with calculated LVEF of 67%. LV cavity is normal in size. The gated study shows normal systolic wall thickening and contraction of segments. Resting study shows no change in perfusion pattern compared to stress perfusion study. Gating at rest reveals normal systolic wall motion with ejection fraction at 68%. The findings are consistent with normal myocardial perfusion. NM/NM dinesh perf SPECT rest & str Impression: 1. Myocardial perfusion imaging study shows normal myocardial perfusion 2. Gated LVEF is 67% 3. Transient ischemic dilatation not present Nondiagnostic changes on EKG. Electronically signed by: Justen Padilla MD 03/17/2024 04:31 PM [facility]
--- NOTE | 2024-03-14 09:11 | CA_ITS ---
Acquisition Time: 2024-03-14 09:44:12 Total Exercise Time: 00:02:00 Test Indications: Dyspnea CP HTN Medications: SEE H Protocol: LEXISCAN Max HR: 101 BPM 66% of Pred: 151 BPM Max BP: 142/088 mmHG Max Work Load: 1.0 METS Pharmacologic stress test with lexiscan, while pt kicks her right leg in chair, with reports of dizziness, no chest discomfort, with isolated PACs and PVC, with normotensive response to injection. Nondiagnostic EKG for ischemia. In recovery, dizziness resolved. Nuclear images pending. Test reviewed with . Referred By: Justen Padilla Overread By: Mj Sagastume
== END ==
LOC: HO.CARD 09:07
PROVIDERS: PCP Nurse Practitioner Primary Care; Visit Provider Internal Medicine Cardiovascular Disease
DX: R07.89 Other chest pain (principal)
CPT/HCPCS: 78452; 93017; A9500; J0280; J2785

== ENCOUNTER → 2024-03-14 09:11 | Outpatient (BNV) | payer OTHER, SELFPAY | PROVIDERS: PCP Nurse Practitioner Primary Care | DX: I49.1 Atrial premature depolarization (principal); I49.3 Ventricular premature depolarization | CPT/HCPCS: 78452; 93016; 93018 ==

== ENCOUNTER 2024-03-22 12:33 | Outpatient (AMB) | payer OTHER, SELFPAY ==
[2024-03-22 13:15] VITALS: BP 160/68; PULSE 86; BMI 32.3
--- NOTE | 2024-03-22 13:15 | MHC.OFFVIS ---
Vital Signs 03/22/24 13:15 Height 5 ft 5 in Weight 194 lb 0.108 oz BMI 32.3 BP 160/68 H Blood Pressure Location Lt brachial Position Sitting Pulse 86 Pulse Source Pulse Oximeter Intake Visit Reasons: f/up after testing Commissary Agent Required: Yes Commissary Agent Name: [id number] Allergies hazelnut Allergy (Mild, Verified 03/22/24 14:02) per allergy skin test peanut Allergy (Mild, Verified 03/22/24 14:02) per allergy skin test Medication List - Last Reconciled 03/22/24 by Mj Sagastume NP acetaminophen ER 650 mg PO TID albuterol sulfate 90 mcg/actuation (Ventolin HFA) 90 mcg inhalation Q4H PRN albuterol sulfate 1 amp inhalation Q4H PRN apixaban (Eliquis) 5 mg PO BID 90 days blood sugar diagnostic As directed celecoxib 200 mg PO PRN cholecalciferol (vitamin D3) 50 mcg PO QAM clonidine HCl 0.1 mg PO BID commode (bedside commode) As directed cyanocobalamin (vitamin B-12) 1,000 mcg PO DAILY dexlansoprazole 60 mg PO DAILY docusate sodium 100 mg PO BID 14 days empagliflozin (Jardiance) 25 mg PO QAM flash glucose scanning reader (KrowdPadStyle [place] 2 [place]) As directed flash glucose sensor (FreeStyle Manuelito 2 Sensor kit) USE DIRECTED TO CHECK BLOOD SUGAR CHANGE EVERY 14 DAYS fluticasone propionate 50 mcg/actuation 1 spray intranasal DAILY cnbxkovblvq-qcubwshop-oqyeuidv 200-62.5-25 mcg (Trelegy Ellipta) 1 ea inhalation DAILY gabapentin 100 mg PO TID 90 days insulin glargine (Lantus Solostar U-100 Insulin) 20 units (0.2 mL) subcut BEDTIME lancets (OneTouch Delica Plus Lancet) As directed levothyroxine 75 mcg PO QAM linaclotide (Linzess) 290 mcg PO DAILY lisinopril 40 mg PO DAILY meclizine 25 mg PO DAILY PRN metformin ER 1,000 mg (2 x 500 mg) PO BID 30 days metoprolol succinate ER 200 mg PO DAILY tbnutehllkkv-rulw-acpbc acid 18-400 mg-mcg (Certavite-Antioxidant) 1 tab PO DAILY ondansetron 4 mg PO Q6-8H PRN oxycodone 10 mg PO QID PRN pioglitazone 15 mg PO QAM psyllium husk (Reguloid (psyllium husk)) 3 grams PO DAILY rosuvastatin 40 mg PO DAILY semaglutide (Ozempic) 2 mg (0.75 mL) subcut QWEEK tamsulosin 0.4 mg PO DAILY 90 days trazodone mg PO venlafaxine ER 150 mg PO DAILY HPI Comments Details: This is a 69-year-old female who presents for a follow-up after undergoing a stress test. An motor vehicle parts interpreter was used throughout the visit. Patient was recently seen in the office for palpitations and chest pain. Her medical history includes diabetes, hypertension, hyperlipidemia and obesity. Last spring, she was hospitalized for knee surgery complicated by blood clots, which were treated with blood thinners. However, she developed GI bleeds and was subsequently managed with Eliquis and aspirin therapy. Currently, she is only taking Eliquis for this matter. The patient continues to report chest tightness and shortness of breath, which can occur with exertion as well as at rest. She denies dizziness, palpitations, presyncope, or syncope. [facility] Medical History Asthma-COPD overlap syndrome Hypertension Diabetes MGUS (monoclonal gammopathy of unknown significance) Chronic restrictive lung disease Obesity (BMI 30.0-34.9) Cough due to SHANELLE inhibitor Eosinophilia Asthma T2DM (type 2 diabetes mellitus) Erosive gastritis Leg edema, left Hyperparathyroidism Vitamin D deficiency Multinodular thyroid Thyroid nodule Skin lesion of chest wall Type 2 diabetes mellitus with diabetic polyneuropathy Fibromyalgia Depression with anxiety Cervical cancer Osteoarthritis of left knee Osteopenia GERD (gastroesophageal reflux disease) Diabetes mellitus with hyperglycemia Meir's disease Other specified acquired hypothyroidism Hyperlipidemia LDL goal <100 Essential hypertension Vitamin B12 deficiency Other obesity due to excess calories BMI 35.0-35.9,adult Surgical History Hx of elbow surgery Hx of hand surgery Hx of arthroscopic knee surgery History of cholecystectomy History of arthroplasty of right knee Hx of hysterectomy Hx of foot surgery History of bilateral carpal tunnel release Hx of bilateral oophorectomy History of esophagogastroduodenoscopy (EGD) Hx of colonoscopy Family History Father CVD (cardiovascular disease) Diabetes mellitus Stroke Mother Stroke Diabetes mellitus Breast cancer Hyperthyroidism Social History Household Members: Spouse Housing: House Housing Other:: 2nd floor-2 family house Are you a primary customer care professional to a significant other at home: No Do you presently have visiting nurse or other home services: Yes (ASSISTANT CLINICAL NURSE MANAGER) Alcohol intake: never Comment: continues with camera Patient Tobacco Use Status: Never used Tobacco service: No 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al status: disabled 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: Right Handed Female Reproductive History Menstrual Age of Menarche: 11 Review of Systems Const Denies weakness ENT Denies dizziness Card Denies chest pain, Denies chest pain with activity, Denies syncope, Denies rapid heart rate, Denies pedal edema, Denies edema, Denies leg edema, Denies lightheadedness, Denies palpitations, Denies dyspnea, Denies dyspnea on exertion and Denies orthopnea Resp Denies cough, Denies dyspnea and Denies dyspnea on exertion GI Denies hematochezia and Denies change in stool character Musc Denies abnormal gait, Denies muscle cramps, Denies muscle weakness, Denies numbness, Denies radiating pain into limb and Denies tingling Neuro Denies abnormal gait, Denies dizziness, Denies syncope, Denies numbness, Denies tingling and Denies weakness Endo Denies palpitations Physical Exam Vital Signs: Last Vital Signs Pulse 86 03/22/24 13:15 BP 160/68 H 03/22/24 13:15 BMI result Body Mass Index 32.3 Const General: cooperative, healthy appearing, comfortable and no acute distress Orientation/consciousness: patient oriented x3 HEENT Head: Yes normal to inspection Neck Neck: Yes normal visual inspection, Yes trachea midline and Yes supple Chest Chest palpation & inspection: normal inspection of the chest Resp Effort & Inspection: normal respiratory effort Auscultation: clear to auscultation bilaterally, no crackles, no rales, no rhonchi and no wheezes Cardio Jugular venous distension: no JVD Palpation: normal PMI Rate: regular rate Rhythm: regular rhythm Heart sounds: S1 normal heart sound present, S2 normal heart sound present, no click, no gallops, no murmurs and no rubs Peripheral pulses: Peripheral pulses 2+ throughout GI Inspection: Yes normal to inspection Palpation (GI): Soft to palpation Auscultation: normal bowel sounds Skin General skin exam: no rashes or lesions noted Neuro General: patient oriented x3 Extrem General: Yes normal to inspection, No no pedal edema and No calf tenderness Psych Appearance: grossly normal Mental Status: mental status grossly normal Speech and movement: Normal speech and movement present Assessment & Plan Assessment & Plan (1) Atypical chest pain: Code(s): R07.89 - Other chest pain Category: Medical Plan: 06/03/2023-echo showed normal EF of 67%. No valvular pathology. 02/22/2024- Holter monitor showed normal sinus rhythm, 1.4% burden of supraventricular ectopy, rare ventricular ectopy. 03/14/2024-myocardial perfusion imaging study was normal. 06/16/23- CTA chest showed multivessel coronary artery calcifications. We will get a CTA cardiac to further assess this. Recommend heart healthy diet, exercise, weight loss, and aggressive blood pressure , diabetes, cholesterol management. (2) Essential hypertension: Code(s): I10 - Essential (primary) hypertension Category: Medical Plan: Patient's blood pressure today elevated at 1 60/68, reports has not taken her medications. States her blood pressures are being checked by a nurse daily at home, who she sits has been controlled. By the sounds of it patient is not very compliant with his medications. Continue lisinopril, high-dose metoprolol. Emphasized the importance of medication regimen. Patient will return in 2 weeks for nurse visit for blood pressure check. This note was generated using voice recognition software. While every effort has been made to ensure accuracy and proper supervisor motor vehicle assembly, there may be occasional errors that could affect the content or meaning of the described symptoms. Orders: Orders CT Cardiac Coronary Angio Today R07.89 - Other chest pain Basic Metabolic Panel Today R07.89 - Other chest pain Coding Level of Care Code Est Pt Level 4 (81259) Diagnoses Atypical chest pain R07.89 Essential hypertension I10 Time Spent (min) 32 Comment Time spent in reviewing the chart, test results, assessment, counseling and documentation.
== END 2024-03-22 14:02 | disposition home or self-care (01) ==
PROVIDERS: PCP Nurse Practitioner Primary Care
DX: R07.89 Other chest pain (principal); I10 Essential (primary) hypertension
CPT/HCPCS: 99214

== ENCOUNTER → 2024-03-22 12:33 | Outpatient (BNVA) | payer OTHER, SELFPAY | PROVIDERS: PCP Nurse Practitioner Primary Care | DX: I10 Essential (primary) hypertension (principal); E78.5 Hyperlipidemia, unspecified; E66.9 Obesity, unspecified; R07.89 Other chest pain; Z79.01 Long term (current) use of anticoagulants; Z68.32 Body mass index [BMI] 32.0-32.9, adult | CPT/HCPCS: 99212 ==

== ENCOUNTER 2024-04-18 14:07 | Outpatient (REF) | payer OTHER, SELFPAY ==
[2024-04-18 15:29] LABS: Anion Gap 11 (12-20); Blood Urea Nitrogen 12 mg/dL (9-16); Calcium 9.3 mg/dL (8.4-10.2); Carbon Dioxide 26 mmol/L (22-29); Chloride 107 mmol/L (96-108); Estimated Glomerular Filt Rate > 60; Glucose Random 198 mg/dL (60-115); Potassium 4.4 mmol/L (3.3-5.1); Sodium 140 mmol/L (135-145)
--- OUTSIDE RECORDS SUMMARY | 2024-04-18 15:47 | XMS_ITS | Encounter Summary ---
Author Organization [employer] Address [address] [facility] [address] [place] [address] Care Team Providers Care Site Lead Name Role Phone Breanna Zamudio Primary Care Provider [phone] Reason for Visit * Reason Onset Date Comments Med Refill 11/18/2023 Encounter Details Date Type Department Care Team (Late st Contact Info) Description 11/18/2023 Telephone [facility]INE [address] [place] [address] Breanna Zamudio ANP [address] [place] [address] Med Refill Social History Tobacco Use Types Packs/Day Years Used Date Smoking Tobacco: Never Passive Smoke Exposure: Never Smokeless Tobacco: Never Alcohol Use Standard Drinks/Week Comments Not Currently 0 (1 standard drink = 0.6 oz pur e alcohol) Alcohol Answer Date Recorded Frequency of Alcohol Consumption Not on file 08/28/2023 Average Number of Drinks Not on file 024 Frequency of Binge Drinking Not on file 08/14 Score 0 08/28/2023 Housing Stability Answer Date Recorded What is your housing situation today? I have sheryl jordan 03/19/[address] you li ve. Do you have problems with any of the following? None of the above 03/19/2023 Food Insecurity Answer Date Recorded Within the past 12 months, y ou worried that your food would run out before you got money to buy more: Sometimes True 2023 Within the past 12 months,th e food you bought just didn't last and you didn't have enough money to get more: Sometimes True 03/26/2023 Transportation Answer Date Recorded In the past 12 months, has l ack of transportation kept you from medical appts, meetings, work or from getting things needed for daily living? No 03/19/2023 Utilities Answer Date Recorded In the past 12 months, has t he electric, gas, oil or water company threatened to shut off services in your home? Yes 03/26/2023 Depression Answer Date Recorded Patient Health Questionnaire-2 Score 0 03/19/2023 Internet Access Answer Date Recorded Internet Access Q1 Yes 11/16/2023 Internet Access Q2 Not on file 11/16/2023 Comments Unknown Sex and Gender Information Value Date Recorded Sex Assigned at Female 01/13/2022 10:16 AM EDT Legal Sex Female 10:16 AM EDT Gender Identity Female 01/13/2022 10:16 AM EDT Sexual Orientation Straight 01/13/2022 10 :16 AM EDT documented as of this encounter Miscellaneous Notes * Telephone Encounter - Dave Arita - 11/18/2023 2:19 PM EDT TC from pt requesting medication refill. Medications needing refill: oxyCODONE (Roxicodone) 10 MG immediate release tablet To be sent to: [facility] - [place], [place] - [address] [place] [address] documented in this encounter Plan of Treatment Upcoming Encounters Date Type Department Care Team (Late st Contact Info) Description 06/07/2024 2:00 PM EDT Office Visit [facility] [address] [place] [address] Breanna Zamudio ANP [address] [place] [address] documented as of this encounter Visit Diagnoses Not on filedocumented in this encounter Care Teams Site Lead Relationship Specialty Start Date End Date Breanna Zamudio ANP [address] [place] [address] PCP - General Family Medicine 10/03/19 [facility] 07/31/23 documented as of this encounter
--- OUTSIDE RECORDS SUMMARY | 2024-04-18 15:47 | XMS_ITS | Encounter Summary ---
Author Organization [employer] Address [address] [facility] [address] 7[address] [place] [address] Care Team Providers Care Social Studies Department Chair Name Role Phone Breanna Zamudio Primary Care Provider [phone] Reason for Visit * Reason Onset Date Comments Med Refill 10/27/2023 Encounter Details Date Type Department Care Team (Late st Contact Info) Description 10/27/2023 Telephone [facility] MEDICINE [address] [place] [address] Breanna Zamudio ANP [address] [place] [address] Med Refill Social History Tobacco Use Types [...] Recorded Patient Health Questionnaire-2 Score 0 03/19/2023 Comments Unknown Sex and Gender Information Value Date Recorded Sex Assigned at Female 01/13/2022 10:16 AM EDT Legal Sex Female 10:16 AM EDT Gender Identity Female 01/13/2022 10:16 AM EDT Sexual Orientation Straight 01/13/2022 10 :16 AM EDT documented as of this encounter Miscellaneous Notes * Telephone Encounter - Sarah Shaw - 10/27/2023 3:27 PM EDT TC from pt requesting medication refill. Medications needing refill : oxyCODONE (Roxicodone) 10 MG immediate release tablet To be sent to: [facility] documented in this encounter Plan of Treatment Upcoming Encounters Date Type Department Care Team (Late st Contact Info) Description 06/07/2024 2:00 PM EDT Office Visit [facility] [address] [place] [address] Breanna Zamudio ANP [address] [place] [address] documented as of this encounter Visit Diagnoses Not on filedocumented in this encounter Care Teams Social Studies Department Chair Relationship Specialty Start Date End Date Breanna Zamudio ANP [address] [place] [address] PCP - General Family Medicine 10/03/19 [facility] 07/31/23 documented as of this encounter
--- OUTSIDE RECORDS SUMMARY | 2024-04-18 15:47 | XMS_ITS | Encounter Summary ---
Author Organization [employer] Address [address] [facility] [address] [place] [address] Care Team Providers Care Sponge Buffer Name Role Phone Breanna Zamudio Primary Care Provider [phone] Reason for Visit * Reason Onset Date Comments Med Refill 01/21/2024 Encounter Details Date Type Department Care Team (Late st Contact Info) Description 01/21/2024 Telephone [facility] [address] [place] [address] Breanna Zamudio ANP [address] [place] [address] Med Refill Social History Tobacco Use Types [...] encounter Miscellaneous Notes * Telephone Encounter - Sushma Abreu - 01/21/2024 1:36 PM EST TC from pt requesting medication refill. Medications needing refill : oxyCODONE (Roxicodone) 10 MG immediate release tablet To be sent to: [facility] - [place], [place] - [address] [place] [address] documented in this encounter Plan of Treatment Upcoming Encounters Date Type Department Care Team (Late st Contact Info) Description 06/07/2024 2:00 PM EDT Office Visit [facility] [address] [place] [address] Breanna Zamudio ANP [address] [place] [address] documented as of this encounter Visit Diagnoses Not on filedocumented in this encounter Care Teams Sponge Buffer Relationship Specialty Start Date End Date Breanna Zamudio ANP [address] [place] [address] PCP - General Family Medicine 10/03/19 [facility] 07/31/23 documented as of this encounter
--- OUTSIDE RECORDS SUMMARY | 2024-04-18 15:47 | XMS_ITS | Encounter Summary ---
Author Organization [employer] Address [address] [facility] [address]t [place] [address] Care Team Providers Care Service Station Manager Name Role Phone Breanna Zamudio Primary Care Provider [phone] Encounter Details Date Type Department Care Team ([facility] Contact Info) Description 2024 Telephone [facility] [address] [place] [address] Sis Coppola, AIDA [address] [place] [address] Social History Tobacco Use Types Packs/Day Years [...] encounter Miscellaneous Notes * Telephone Encounter - Sis Coppola RN - 2024 2:04 PM EST Fyi. TC to pt again, called via [employer] ID# [id number]. Lvm for pt to c/b and schedule PUPPET MAKER appt. documented in this encounter Plan of Treatment Upcoming Encounters Date Type Department Care Team (Late st Contact Info) Description 06/07/2024 2:00 PM EDT Office Visit [facility] MED[facility]INE [address] [place] [address] Breanna Zamudio ANP [address] [place] [address] documented as of this encounter Visit Diagnoses Not on filedocumented in this encounter Care Teams Service Station Manager Relationship Specialty Start Date End Date Breanna Zamudio ANP [address] [place] [address] PCP - General Family Medicine 10/03/19 [facility] 07/31/23 documented as of this encounter
--- OUTSIDE RECORDS SUMMARY | 2024-04-18 15:47 | XMS_ITS | Encounter Summary ---
Author Organization [employer] Address [address] [facility] 7t [place] [address] Care Team Providers Care Orthopedic Designer Name Role Phone Breanna Zamudio Primary Care Provider [phone] Reason for Visit * Reason Onset Date Comments Med Refill 12/21/2023 Encounter Details Date Type Department Care Team (Late st Contact Info) Description 12/21/2023 Telephone [facility] [address] [place] [address] Breanna Zamudio ANP [address] [place] [address] Med Refill Social History Tobacco Use Types [...] encounter Miscellaneous Notes * Telephone Encounter - Kristy Childers - 12/21/2023 12:28 PM EDT Tc from pt requesting a refill for oxyCODONE (Roxicodone) 10 MG immediate release tablet documented in this encounter Plan of Treatment Upcoming Encounters Date Type Department Care Team (Late st Contact Info) Description 06/07/2024 2:00 PM EDT Office Visit [facility] [address] [place] [address] Breanna Zamudio ANP [address] [place] [address] documented as of this encounter Visit Diagnoses Not on filedocumented in this encounter Care Teams Orthopedic Designer Relationship Specialty Start Date End Date Breanna Zamudio ANP [address] [place] [address] PCP - General Family Medicine 10/03/19 [facility] 07/31/23 documented as of this encounter
--- OUTSIDE RECORDS SUMMARY | 2024-04-18 15:47 | XMS_ITS | Encounter Summary ---
Author Organization [employer] Address [address] [facility] [address] [place] [address] Care Team Providers Care Saddle Lining Stitcher Name Role Phone Breanna Zamudio Primary Care Provider [phone] Reason for Visit * Reason Onset Date Comments Appointment Request 12/18/2023 Encounter Details Date Type Department Care Team ([facility] st Contact Info) Description 12/18/2023 Telephone [facility] [address] [place] [address] Breanna Zamudio ANP [address] [place] [address] Appointment Request Social History Tobacco Use Types Packs/Day Years [...] encounter Miscellaneous Notes * Telephone Encounter - Isael Kelly - 12/18/2023 1:40 PM EDT TC from pt's . States pt not feeling well and had to cancel todays FREIGHT CAR LOADER visit . Would like to reschedule . documented in this encounter Plan of Treatment Upcoming Encounters Date Type Department Care Team (Late st Contact Info) Description 06/07/2024 2:00 PM EDT Office Visit [facility] [address] [place] [address] Breanna Zamudio ANP [address] [place] [address] documented as of this encounter Visit Diagnoses Not on filedocumented in this encounter Care Teams Saddle Lining Stitcher Relationship Specialty Start Date End Date Breanna Zamudio ANP [address] [place] [address] PCP - General Family Medicine 10/03/19 [facility] 07/31/23 documented as of this encounter
--- OUTSIDE RECORDS SUMMARY | 2024-04-18 15:47 | XMS_ITS | Encounter Summary ---
Author Organization [employer] Address [address] [facility] [address] [place] [address] Care Team Providers Care Business Analyst Name Role Phone Breanna Zamudio Primary Care Provider [phone] Reason for Visit * Reason Onset Date Comments Med Refill 03/15/2024 Encounter Details Date Type Department Care Team (Late st Contact Info) Description 03/15/2024 Telephone [facility] MED[facility]INE [address] [place] [address] Breanna Zamudio ANP [address] [place] [address] Med Refill Social History Tobacco Use Types [...] encounter Miscellaneous Notes * Telephone Encounter - Herman Aj - 03/15/2024 10:03 AM EST TC from pt requesting medication refill. Medications needing refill : oxyCODONE (Roxicodone) 10 MG immediate release tablet To be sent to: [facility] documented in this encounter Plan of Treatment Upcoming Encounters Date Type Department Care Team (Late st Contact Info) Description 06/07/2024 2:00 PM EDT Office Visit [facility]INE [address] [place] [address] Breanna Zamudio ANP [address] [place] [address] documented as of this encounter Visit Diagnoses Not on filedocumented in this encounter Care Teams Business Analyst Relationship Specialty Start Date End Date Breanna Zamudio ANP [address] [place] [address] PCP - General Family Medicine 10/03/19 [facility] 07/31/23 documented as of this encounter
--- OUTSIDE RECORDS SUMMARY | 2024-04-18 15:47 | XMS_ITS | Encounter Summary ---
Author Organization [employer] Address [address] [facility] 7t [place] [address] Care Team Providers Care Psychology Intern Name Role Phone Breanna Zamudio Primary Care Provider [phone] Reason for Visit * Reason Onset Date Comments Medication Question 09/29/2023 Encounter Details Date Type Department Care Team (Late st Contact Info) Description 09/29/2023 Telephone [facility] [address] [place] [address] Breanna Zamudio ANP [address] [place] [address] Medication Question Social History Tobacco Use Types Packs/Day Years [...] * Telephone Encounter - Kristy Childers - 09/29/2023 12:23 PM EDT Tc from Jaime pt spouse requesting for PCP to authorize script for oxyCODONE (Roxicodone) 10 MG immediate release tablet to be picked up today, states pt has a family emergency and will be leaving tmr morning 09/30/23. Please contact at [phone] documented in this encounter Plan of Treatment Upcoming Encounters Date Type Department Care Team (Late st Contact Info) Description 06/07/2024 2:00 PM EDT Office Visit [facility] [address] [place] [address] Breanna Zamudio ANP [address] [place] [address] documented as of this encounter Visit Diagnoses Not on filedocumented in this encounter Care Teams Psychology Intern Relationship Specialty Start Date End Date Breanna Zamudio ANP [address] [place] [address] PCP - General Family Medicine 10/03/19 [facility] 07/31/23 documented as of this encounter
--- OUTSIDE RECORDS SUMMARY | 2024-04-18 15:48 | XMS_ITS | Encounter Summary ---
Author Organization [employer] Address [address] [place] [address] 7 [place] [address] Care Team Providers Care Recreation Manager Name Role Phone Breanna Zamudio Primary Care Provider [phone] Reason for Visit * Reason Comments Med Refill Encounter Details Date Type Department Care Team (Late st Contact Info) Description 12/02/2022 Refill [facility] MED[facility]INE [address] [place] [address] Breanna Zamudio ANP [address] [place] [address] Pain in unspecified joint Social History Tobacco Use Types Packs/Day Years Used Date Smoking Tobacco: Never Passive Smoke Exposure: Never Smokeless Tobacco: Never Alcohol Use Standard Drinks/Week Comments Not Currently 0 (1 standard drink = 0.6 oz pur e alcohol) Comments Unknown Sex and Gender Information Value Date Recorded Sex Assigned at Female 01/13/2022 10:16 AM EDT Legal Sex Female 10:16 AM EDT Gender Identity Female 01/13/2022 10:16 AM EDT Sexual Orientation Straight 01/13/2022 10 :16 AM EDT documented as of this encounter Plan of Treatment Upcoming Encounters Date Type Department Care Team (Late st Contact Info) Description 06/07/2024 2:00 PM EDT Office Visit [facility] [address] [place] [address] Breanna Zamudio ANP [address] [place] [address] documented as of this encounter Visit Diagnoses Diagnosis Pain in unspecified joint documented in this encounter Care Teams Recreation Manager Relationship Specialty Start Date End Date Breanna Zamudio ANP [address] [place] [phone] PCP - General Family Medicine 10/03/19 [facility] 07/31/23 documented as of this encounter
--- OUTSIDE RECORDS SUMMARY | 2024-04-18 15:48 | XMS_ITS | Encounter Summary ---
Author Organization [employer] Address [address] [facility] 7t [place] [address] Care Team Providers Care Online Project Manager Name Role Phone Breanna Zamudio Primary Care Provider [phone] Reason for Visit * Reason Onset Date Comments Med Refill 04/11/2024 Encounter Details Date Type Department Care Team (Late st Contact Info) Description 04/11/2024 Telephone [facility] MEDICINE [address] [place] [address] Breanna Zamudio ANP [address] [place] [address] Med Refill Social History Tobacco Use Types [...] * Telephone Encounter - Isael Kelly - 04/11/2024 11:26 AM EST TC from pt requesting medication refill. Medications needing refill : oxyCODONE (Roxicodone) 10 MG immediate release tablet To be sent to: [facility] *pt 04/18/24 to [place] because child is sick . Requesting 120 pill count documented in this encounter Plan of Treatment Upcoming Encounters Date Type Department Care Team (Late st Contact Info) Description 06/07/2024 2:00 PM EDT Office Visit [facility] MEDICINE [address] [place] [address] Breanna Zamudio ANP [address] [place] [address] documented as of this encounter Visit Diagnoses Not on filedocumented in this encounter Care Teams Online Project Manager Relationship Specialty Start Date End Date Breanna Zamudio ANP [address] [place] [address] PCP - General Family Medicine 10/03/19 [facility] 07/31/23 documented as of this encounter
--- OUTSIDE RECORDS SUMMARY | 2024-04-18 15:48 | XMS_ITS | Encounter Summary ---
Author Organization [employer] Address [address] [facility] 7[address] [place] [address] Care Team Providers Care Director Of Bands Name Role Phone Breanna Zamudio Primary Care Provider [phone] Reason for Visit * Reason Comments Med Refill Encounter Details Date Type Department Care Team (Late st Contact Info) Description 04/07/2022 Refill [facility] MED & PEDS [address] [place], [place] [phone] Breanna Zamudio ANP [address] [place] [address] Pain in unspecified joint Social History Tobacco [...] Orientation Straight 01/13/2022 10 :16 AM EDT COVID-19 Exposure Response Date Recorded In the last 10 days, have yo u been in contact with someone who was confirmed or suspected to have Coronavirus/COVID-19? No / Unsure 04/02/2022 1:48 PM EST documented as of this encounter Plan of Treatment Upcoming Encounters Date Type Department Care Team (Late Contact Info) Description 06/07/2024 2:00 PM EDT Office Visit [facility] MEDICINE [address] [place] [address] Breanna Zamudio ANP [address] [place] [address] documented as of this encounter Visit Diagnoses Diagnosis Pain in unspecified joint documented in this encounter Care Teams Director Of Bands Relationship Specialty Start Date End Date Breanna Zamudio ANP [address] [place] [address] [place] [address] PCP - General Family Medicine 10/03/19 [facility] 07/31/23 documented as of this encounter
--- OUTSIDE RECORDS SUMMARY | 2024-04-18 15:48 | XMS_ITS | Encounter Summary ---
Author Organization [employer] Address [address] [facility] 7t [place] [address] Care Team Providers Care Equipment Maintenance Tech Name Role Phone Breanna Zamudio Primary Care Provider Encounter Details Date Type Department Care Team ([facility] st Contact Info) Description 08/31/2023 Telephone [facility] MEDICINE [address] [place], [place] [phone] Breanna Zamudio ANP [address] [place], [place] [phone] Social History Tobacco Use Types Packs/Day Years [...] Description 06/07/2024 2:00 PM EDT Office Visit [facility] MED[facility]INE [address] [place] [address] Breanna Zamudio ANP [address] [place] [address] documented as of this encounter Visit Diagnoses Not on filedocumented in this encounter Care Teams Equipment Maintenance Tech Relationship Specialty Start Date End Date Breanna Zamudio ANP [address] [place] [phone] PCP - General Family Medicine 10/03/19 [facility] 07/31/23 documented as of this encounter
--- OUTSIDE RECORDS SUMMARY | 2024-04-18 15:48 | XMS_ITS | Encounter Summary ---
Author Organization [employer] Address [address] [facility] 7t [place] [address] Care Team Providers Care Policyholder Information Clerk Name Role Phone Breanna Zamudio Primary Care Provider [phone] Reason for Visit * Reason Comments Med Refill Encounter Details Date Type Department Care Team ([facility] st Contact Info) Description 08/24/2023 Refill [facility] [address] [place] [address] Breanna Zamudio ANP [address] [place] [address] Ischemic colitis ([facility]) Social History Tobacco Use Types Packs/Day Years [...] Description 06/07/2024 2:00 PM EDT Office Visit [facility] [address] [place] [phone] Breanna Zamudio ANP [address] [place] [address] documented as of this encounter Visit Diagnoses Diagnosis Ischemic colitis (CMS/HCC) documented in this encounter Care Teams Policyholder Information Clerk Relationship Specialty Start Date End Date Breanna Zamudio ANP [address] [place] [phone] PCP - General Family Medicine 10/03/19 [facility] 07/31/23 documented as of this encounter
--- OUTSIDE RECORDS SUMMARY | 2024-04-18 15:48 | XMS_ITS | Encounter Summary ---
Author Organization [employer] Address [address] [facility] 7t [place] [address] Care Team Providers Care Setup Operator Name Role Phone Breanna Zamudio Primary Care Provider [phone] Reason for Visit * Reason Comments Med Refill Encounter Details Date Type Department Care Team (Late st Contact Info) Description 04/18/2024 Refill [facility] MED & PEDS [address] [place] [address] Breanna Zamudio ANP [address] [place] [address] Moderate persistent asthma without complication Social History Tobacco Use Types Packs/Day Years [...] Description 06/07/2024 2:00 PM EDT Office Visit [facility] MEDICINE [address] [place] [address] Breanna Zamudio ANP [address] [place] [address] documented as of this encounter Visit Diagnoses Diagnosis Moderate persistent asthma without complication documented in this encounter Care Teams Setup Operator Relationship Specialty Start Date End Date Breanna Zamudio ANP [address] [place] [phone] PCP - General Family Medicine 10/03/19 [facility] 07/31/23 documented as of this encounter
--- OUTSIDE RECORDS SUMMARY | 2024-04-18 15:48 | XMS_ITS | Clinical Summary ---
Author Organization [employer] Address [address] [facility] [address] [place] [address] Care Team Providers Care Director Immunology Name Role Phone [place] Cifuentes Primary Care Provider [phone] Allergies No known active allergies Medications Ventolin HFA 108 (90 Base) MCG/ACT inhaler Inhale 1 puff every 4 (four) hours if needed for wheezing. Active Alcohol Swabs (SM Alcohol Prep) 70 % pads USE TWICE DAILY DIRECTED Active Blood Glucose Monitoring Suppl (Motilouch Verio Flex System) w/Device kit TEST BLOOD SUGAR TWICE DAILY Active cholecalciferol (Vitamin D-3) 50 MCG (1999 UT) tablet Take 1 tablet by mouth in the morning. Active Jardiance 25 MG Take 1 tablet by mouth 1 (one) time each day. Active OneTouch Verio test strip TEST BLOOD SUGAR TWICE DAILY Active Lantus SoloStar 100 UNIT/ML pen INJECT 34 UNITS SUBCUTANEOUSLY EVERY EVENING Active Lancets (Motilouch Delica Plus [id number]) misc TEST BLOOD SUGAR TWICE DAILY Active naloxone (Narcan) 4 mg/0.1 mL nasal spray FOR SUSPECTED OPIOID OVERDOSE. SPRAY 0.1mL IN ONE NOSTRIL. REPEAT IN ALTERNATE NOSTRIL 2-3 MINUTES IF NEEDED. SEEK MEDICAL ATTENTION IMMEDIATELY EVEN IF PATIENT RESPONDS. Active pioglitazone (Actos) 15 MG tablet Take 1 tablet by mouth 1 (one) time each day. Active rosuvastatin (Crestor) 40 MG tablet Take 1 tablet by mouth 1 (one) time each day. 022 Active Respiratory Therapy Supplies (Nebulizer) deviceIndicatio ns:Moderate persistent asthma without complication Use for albuterol every 4-6 hours as needed for asthma sx 1 each 023 Active Respiratory Therapy Supplies (Nebulizer/Tubi ng/Mouthpiece) kitIndications: Moderate persistent asthma without complication Use w/ nebulizer 1 kit 1 023 Active Nebulizers (Proneb Ultra II/LC Plus) device Use with albuterol [address] capsuleIndicati ons:Gastroesoph ageal reflux disease without esophagitis Take 1 capsule (60 mg) by mouth in the morning. 30 capsule 2 023 Active Trelegy Ellipta 200-62.5-25 MCG/ACT aerosol powder INHALE 1 PUFF EVERY DAY AT THE SAME TIME 023 Active Linzess 290 MCG capsule TAKE 1 CAPSULE BY MOUTH EVERY MORNING 023 Active verapamil SR (Calan SR) 180 MG ER tablet TAKE 2 TABLETS BY MOUTH EVERY DAY WITH FOOD 180 tablet 3 023 Active Multiple Vitamins-Minera ls (CertaVite/Anti oxidants) tablet TAKE 1 TABLET BY MOUTH EVERY DAY WITH FOOD 90 tablet 3 023 Active hydrOXYzine HCl (Atarax) 50 MG tablet TAKE 1 TABLET BY MOUTH EVERY 8 HOURS NEEDED FOR ANXIETY 270 tablet 1 023 Active metoprolol succinate XL (Toprol-XL) 200 MG 24 hr tabletIndicatio ns:Essential hypertension TAKE 1 TABLET BY MOUTH EVERY MORNING 90 tablet 3 024 Active albuterol 0.63 MG/3ML nebulizer solutionIndicat ions:Moderate persistent asthma without complication INHALE 1 AMPULE USING A NEBULIZER EVERY 4 TO 6 HOURS NEEDED FOR WHEEZING OR SHORTNESS OF BREATH FOR ASTHMA 75 mL 2 024 Active Ozempic, 0.25 or 0.5 MG/DOSE, 2 MG/3ML solution pen-injector INJECT 0.5 MG SUBCUTANEOUSLY ONCE A WEEK 024 Active Continuous Glucose Rn Hyperbaric (FreeStyle Manuelito 2 [place]) device Use as directed 024 Active Continuous Glucose Sensor (FreeStyle Manuelito 2 Sensor) [facility] Every 2 weeks to monitor BG Active Cyanocobalamin (Vitamin B-12) 1000 MCG sublingual tablet DISSOLVE 1 TABLET BY MOUTH DAILY Active Eliquis 5 MG tabletIndicatio ns:Acute deep vein thrombosis (DVT) of proximal vein of lower extremity, unspecified laterality (CMS/HCC),Multi ple subsegmental pulmonary emboli without acute cor pulmonale (CMS/HCC) Take 1 tablet (5 mg) by mouth 2 times daily. 60 tablet 2 Active lisinopril 40 MG tabletIndicatio ns:Essential hypertension Take 1 tablet (40 mg) by mouth Once per day. 90 tablet 3 024 Active acetaminophen (Tylenol 8 Hour) 650 MG ER tabletIndicatio ns:Ischemic colitis (CMS/HCC) TAKE 1 TABLET BY MOUTH EVERY 8 HOURS NEEDED SWALLOW WHOLE WITH WATER DO NOT BREAK, CRUSH, DISSOLVE OR CHEW 90 tablet Active insulin pen needle (Pentips) 32G x 4 mm miscIndications :Hyperlipidemia associated with type 2 diabetes mellitus (CMS/HCC) (CMS/HCC) Use as instructed 100 each 5 Active levothyroxine (Synthroid, Levoxyl) 75 MCG tabletIndicatio ns:Hypothyroidi sm, unspecified type Take 1 tablet (75 mcg) by mouth before breakfast. 90 tablet 1 024 Active glucose (BD Glucose) 5 g chewable tabletIndicatio ns:Hyperlipidem ia associated with type 2 diabetes mellitus (CMS/HCC) (CMS/HCC) Chew 3 tablets (15 g) if needed for low blood sugar. 50 tablet 12 024 2024 Active venlafaxine XR (Effexor XR) 150 MG 24 hr capsuleIndicati ons:Mixed anxiety and depressive disorder TAKE 1 CAPSULE BY MOUTH EVERY DAY 30 capsule 5 Active fluticasone (Flonase) 50 MCG/ACT nasal sprayIndication s:COVID-19 INSTILL 1 SPRAY IN EACH NOSTRIL ONCE DAILY IN THE MORNING 16 g 2 024 Active Multiple Vitamins-Iron (Tab-A-Saima/Iro n/Beta Carotene) tablet TAKE 1 TABLET BY MOUTH EVERY DAY WITH FOOD 90 tablet 3 024 Active cloNIDine (Catapres) 0.1 MG tabletIndicatio ns:Hot flashes TAKE 2 TABLETS BY MOUTH AT BEDTIME 60 tablet 2 024 Active traZODone (Desyrel) 150 MG tabletIndicatio ns:Insomnia disorder with non-sleep disorder mental comorbidity TAKE 2 TABLETS BY MOUTH EVERY DAY AT BEDTIME 60 tablet 5 025 Active oxyCODONE (Roxicodone) 10 MG immediate release tabletIndicatio ns:Ischemic colitis (CMS/HCC) Take 1 tablet (10 mg) by mouth every 6 (six) hours if needed for severe pain. Do not start before April 13, 2024. 120 tablet 025 2024 Active traZODone (Desyrel) 150 MG tabletIndicatio ns:Insomnia disorder with non-sleep disorder mental comorbidity TAKE 2 TABLETS BY MOUTH EVERY DAY AT BEDTIME 60 tablet 5 024 2024 Discontinued oxyCODONE (Roxicodone) 10 MG immediate release tabletIndicatio ns:Ischemic colitis (CMS/HCC) Take 1 tablet (10 mg) by mouth every 6 (six) hours if needed for severe pain for up to 21 days. 84 tablet 025 2024 Discontinued(R eorder (will not trigger notification to Pharmacy)) Active Problems Problem Noted Date Diagnosed Date Ischemic colitis 07/31/2023 Pre-op examination 05/24/2023 Assessment & Plan (05/26/2023 6:15 AM EDT): -patient is at acceptable risk for the proposed surgery and may procced without further testing -surgery clearance reviewed with patient and informed that no surgery is 100% risk free. This visit is solely to assist the surgeon in accurately reviewing informed consent. -Patient is at low risk for major adverse cardiac event -BP at acceptable level based on ACC/AHA goal of <170/100 for surgery. Patient is maintained on oral agents and advised to take these medications on the morning of surgery -Pulmonary: patient's asthma is well controlled on inhaled corticosteroid. Advised of inhaler morning of surgery. -Diabetes: Hgb A1c within acceptable range of <8% for surgery (7.3%). Patient advised to use 17U of Lantus the night before surgery and hold administration of Ozempic for this week -Medications: reinforced use of metoprolol, verapamil, and levothyroxine with small sip of water and inhaled corticosteroid use on the morning of surgery. Decrease Lantus dose the night before and hold all other medications the morning of surgery. -Labs: surgeon requested pre-op CBC w/ diff, BMP and hgb A1c completed COVID-19 03/19/2023 Assessment & Plan (03/19/2023 11:50 AM EST): Rx Paxlovid x 5 days, Marisol interactions module checked, she will hold Crestor and verapamil x 5 days while taking medications due to interactions. Isolation until 03/21/22 and she will be out of work until then. Can be out of isolation, wearing a mask from 03/22 to 03/26, if sxs are resolved without other meds for at least 24h. Counseled to let close contacts within the past week, know about dx so they can be tested if needed. Rest (sleep at least 8 hours a night). Wash hands frequently Hydrate with plenty of water. Use saline nose drops Take Acetaminophen or Ibuprofen as Prn fever or discomfort Gargle with salt water and use throat sprays/lozenges prn Use heated, humidified air or take hot showers. If you have a fever, stay home and away from others (self isolation) until fever-free for 72 hours (temperature should be less than 100??F without medication). Bilateral leg edema 12/15/2022 Assessment & Plan (12/15/2022 4:52 PM EDT): Ro nephrotic syndrome. Patient has proteinuria. Order BMP today DC hydrochlorothiazide and increase lasix to 40mg/d Check BMP in 2-3w and fu with PCP We discussed about tight control of DM Proteinuria 12/15/2022 Assessment & Plan (12/15/2022 4:51 PM EDT): Likely related to DM. RO nephrotic syndrome due to presence of leg edema. I d/w patient that this a senior living issue to fu with PCP, encouraged tight control of DM. Neuropathic pain 07/04/2022 Hyperparathyroidism 11/22/2021 Osteopenia 11/22/2021 Gastroesophageal reflux disease without esophagi tis 01/26/2015 Hyperlipidemia associated wi th type 2 diabetes mellitus ([facility]) 01/26/2015 Insomnia disorder with non-s leep disorder mental comorbidity 01/26/2015 Irritable bowel syndrome with diarrhea 5 Joint pain 01/26/2015 Moderate persistent asthma 01/26/2015 Type 2 diabetes mellitus 01/26/2015 Osteoarthritis 09/07/2014 Obesity 12/22/2013 Postsurgical menopause 09/22/2013 Urinary problem 09/22/2013 Dyslipidemia 02/16/2012 Essential hypertension 02/16/2012 Assessment & Plan (12/15/2022 4:51 PM EDT): Uncontrolled. DC hydrochlorothiazide and increased lasix to 40mg/d. Continue lisinopril and verapamil same dose. Get BMP today and in 3w, fu w PCP in 3-4w Mixed anxiety and depressive disorder 02/16/2012 Encounters Date Type Department Care Team Description 04/18/2024 Orders Only GENERIC EXTERNAL DATA DEPARTMENT Provider, Generic External Data 04/18/2024 Refill [facility] [address] [place] [address] Albania Cifuentes ANP Moderate persistent asthma without complication 04/11/2024 Refill [facility] [address] [place] [address] Sis Coppola, RN Ischemic colitis ([facility]) 04/11/2024 Telephone [facility] [address] [place] [address] Albania Cifuentes ANP Med Refill 04/11/2024 Telephone [facility] [address] [place] [address] Albania Cifuentes ANP Appointment Request 04/09/2024 Refill [facility] [address] [place] [address] Marce Gross MD Insomnia disorder with non-sleep disorder mental comorbidity 2024 Telephone [facility] [address] [place] [address] Sis Coppola, AIDA 03/18/2024 Telephone [facility] [address] [place] [address] Sis Coppola, AIDA 03/18/2024 Telephone [facility] [address] [place] [phone] Albania Cifuentes ANP Med Refill 03/15/2024 Refill [facility] [address] [place] [address] Sis Coppola, RN Ischemic colitis ([facility]) 03/15/2024 Telephone [facility] [address] [place] [phone] Albania Cifuentes ANP Med Refill 03/12/2024 Refill [facility] [address] [place] [phone] Albania Cifuentes ANP Hot flashes 02/25/2024 Telephone [facility] [address] [place] [phone] Albania Cifuentes ANP No Show 02/18/2024 Orders Only [facility] [address] [place] [phone] Albania Cifuentes ANP Ischemic colitis ([facility]) 02/15/2024 Refill [facility] [address] [place] [phone] Albania Cifuentes ANP Ischemic colitis ([facility]) 02/09/2024 Refill [facility] [address] [place] [phone] Albania Cifuentes ANP 01/28/2024 Telephone [facility] [address] [place] [address] Sis Coppola, AIDA 01/28/2024 Telephone [facility] [address] [place] [address] Albania Cifuentes ANP Appointment Request 01/21/2024 Refill [facility] [address] [place] [address] Sis Coppola, RN Ischemic colitis ([facility]) 01/21/2024 Telephone [facility] [address] [place] [phone] Albania Cifuentes ANP Med Refill from Last 3 Months Immunizations Name Administration Dates Next Due Hep A, Adult 11/09/2007,04/14/2006 Hep A, Unspecified 11/09/2007,04/14/2006 Hep B, Unspecified 11/09/2007,04/14/2006 Hep B, adult 11/09/2007,04/14/2006 Influenza High-dose Quadriva lent Preservative Free 11/20/2022 Influenza injectable quadriv alent preservative free 04/02/2022,03/10/2018 Influenza, IIV3, injectable 12/22/2013 Moderna Covid-19 Vaccine 12+ 03/25/2021,06/16/19 21,05/18/2020 Moderna Covid-19 Vaccine 6+ Bivalent 07/07/2022 Pneumococcal Conjugate PCV 20 07/07/2022 Pneumococcal Polysaccharide PPSV23 07/26/2018, SARS-CoV-2, Unspecified 03/25/2021,06/15/2020, TD (adult), 2 Lf tetanus tox oid, preservative free, adsorbed 04/14/2006 Td (adult), unspecified 04/14/2006 Tdap 09/24/2016 Zoster, Unspecified 09/24/2016 Zoster, live 09/24/2016 Social History Tobacco Use Types Packs/Day Years [...] Orientation Straight 01/13/2022 10 :16 AM EDT Last Filed Vital Signs Vital Sign Reading Time Taken Comments Blood Pressure 142/79 11/26/2023 2:27 PM EDT Pulse 56 11/26/2023 2:27 PM EDT Temperature 36.6 ??C (97.9 ??F) 11/26/2023 2:27 PM ED T Respiratory Rate 20 11/26/2023 2:27 PM EDT Oxygen Saturation 97% 11/26/2023 2:27 PM EDT Inhaled Oxygen Concentration - - Weight 87.7 kg (193 lb 6.4 oz) 11/26/2023 2:27 P M EDT Height 165.1 cm (5' 5 ) 11/26/2023 2:27 PM EDT Body Mass Index 32.18 11/26/2023 2:27 PM EDT Plan of Treatment Upcoming Encounters Date Type Department Care Team (Late st Contact Info) Description 06/07/2024 2:00 PM EDT Office Visit [facility] [address] [place] [address] Albania Cifuentes ANP [address] [place] [address] Health Maintenance Due Date Last Done Comments CT Colonography 1955 FIT DNA/Cologuard 1955 FIT 1955 FOBT 1955 Sigmoidoscopy 1955 Diabetes: Foot Exam 1964 Eye Exam 1964 Hepatitis C Screening 1972 Hepatitis B Vaccines (3 of 3 - 19+ 3-dose series) 01/04/2008 11/09/2007, 11/09/2007, 04/14/2006, Additional history exists RSV Patients and Patients Aged 60 years or older (1 - Risk 60-74 years 1-dose series) 2014 Zoster Vaccines (2 of 3) 11/19/2016 09/24/2016, 09/13 Mammogram 12/07/2020 12/07/2018 Diabetes: Urine Protein Screening 08/16/2023 08/15/2022, 11/21/2021, 07/09/2020, Additional history exists Lipid Panel 08/16/2023 08/15/2022, 04/2022, 10/04/2019 COVID-19 Vaccine ( season) 2023 07/07/2022, 03/25/2021, 03/25/2021, Additional history exists Influenza Vaccine (#1) 2023 , 04/02/2022, 03/10/2018, Additional history exists Diabetes: Hemoglobin A1C 02/25/2024 024, 08/28/2023, 05/22/2023, Additional history exists Depression Screening 03/19/2024 03/19/2023, 03/19/19 24 SDOH Screening 03/26/2024 03/26/2023 Alcohol/Substance Use Screening 08/27/2024 08/28/2023 Tobacco Screening 11/25/2024 11/26/2023 DTaP/Tdap/Td Vaccines (2 - Td or Tdap) 09/24/2026 09/24/2016, 04/14/2006, 04/14/2006 Colonoscopy 12/24/2027 12/23/2022 Colorectal Cancer Screening 12/24/2027 Hepatitis A Vaccines Aged Out 11/09/2007, 11/09/2007, 04/14/2006, Additional history exists No longer eligible based on patient's age to complete this topic Pneumococcal Vaccine: 50+ Years Completed 07/07/2022, 07/26/2018, 11/09/2007 HIB Vaccines Aged Out No longer eligi ble based on patient's age to complete this topic HPV Vaccines Aged Out No longer eligi ble based on patient's age to complete this topic IPV Vaccines Aged Out No longer eligi ble based on patient's age to complete this topic Meningococcal Vaccine Aged Out No [place] eligible based on patient's age to complete this topic RSV under 20 months Aged Out No longe r eligible based on patient's age to complete this topic Rotavirus Vaccines Aged Out No longer eligible based on patient's age to complete this topic Procedures Procedure Name Priority Date/Time Associated Diagnosis Comments BASIC METABOLIC PANEL Routine 04/18/2024 2:33 PM EST NM HEART PERFUSION SPECT STRESS AND REST Routine 03/14/2024 9:38 AM EST POCT GLYCATED HEMOGLOBIN, TOTAL Routine 11/26/2023 2:55 PM EDT Hyperlipidemia associated with type 2 diabetes mellitus (CMS/HCC) ([facility]) HM COLONOSCOPY Routine 12/23/2022 ALBUMIN, RANDOM URINE W/CREATININE Routine 08/15/2022 1:45 PM EDT DIRECT LDL Routine 08/15/2022 12:35 PM EDT BI MAMMOGRAM SCREENING BILATERAL Routine 12/07/2018 11:01 AM EDT from Last 3 Months or Most Recently Relevant to Health Maintenance Results * (ABNORMAL) Basic Metabolic Panel (04/18/2024 2:33 PM EST) Sodium 140 135 - 145 mmol/L [facility] Potassium 4.4 3.3 - 5.1 mmol/L [facility] Chloride 107 96 - 108 mmol/L [facility] Carbon Dioxide 26 22 - 29 mmol/L [facility] Anion Gap 11(L) 12 - 20 [facility] Urea Nitrogen (BUN) 12 9 - 16 mg/dL [facility] Creatinine, Serum 0.82 0.5 - 1.4 mg/dL [facility] Estimated Glomerular Filt Rate >60 [facility] Comment:Chronic Kidney Disea se: Estimated GFR < 60 mL/min/[id number] Kidney Disease: Estimated GFR < 15 mL/min/1.73m2 Glucose 198(H) 60 - 115 mg/dL [facility] Calcium 9.3 8.4 - 10.2 mg/dL [facility] 04/18/2024 2:33 PM EST 04/18/2024 2:33 PM EST us Generic External Data Provider LAB BLOOD ORDERAB LES Final Result [facility] [address] [place] [address] [phone] * NM heart perfusion SPECT stress and rest (03/14/2024 9:38 AM EST) Anatomical Region Laterality Modality Body Nuclear Medicine 03/14/2024 9:38 AM EST Narrative 03/17/2024 4:33 PM EST ? [facility] ?[address] ?[place] [address] ?Nuclear Medicine Report ? Signed ? Patient: Sha,Lois ?MR#: [id number] ?? 1 ? : 1955 ?Acct:[id number] ? Age/Sex: 68 / F ?ADM Date: 03/14/24 ? Loc: HO.CARD ? Attending Dr: Justen Padilla MD ? Ordering Physician: Justen Padilla MD ?? Date of Service: 03/14/24 ?? Procedure(s): NM dinesh perf SPECT rest ?? str ?? Accession Number(s): [id number] ? cc: [place] CIFUENTES NP; Justen Padilla MD ? Lexiscan Myocardial perfusion study ? Indication: ?? Atypical chest pain to evaluate for myocardial ischemia ? Technique: ? The patient was brought in for a Lexiscan perfusion study on February ?? 2023 and was injected 0.4 mg of Lexiscan intravenously. Within a ?? minute of this injection 30 mCi of sestamibi was given intravenously. ?? Images were obtained using the SPECT gamma camera interlaced with the ?? gating device. Images were obtained in supine position. ? Resting perfusion study was performed on March 17, 2024. Patient was ?? administered 30 mCi of sestamibi intravenously at rest. Images were ?? then obtained in supine position. ? Images obtained without without CT attenuation. Total DLP 110 mGy-cm. ? Images were processed with the software and compared side to side in ?? short axis, horizontal long axis and vertical long axis views. ? Findings: ? The stress perfusion study showed ??nonattenuated images show small area ?? mildly reduced uptake of the basal inferior wall of the LV myocardium. ?? Remainder of the LV myocardium normally perfused. Attenuated corrected ?? images show moderately reduced uptake in the apex of the LV myocardium. ?? The gated study shows normal LV systolic function with calculated LVEF ?? of 67%. LV cavity is normal in size. The gated study shows normal ?? systolic ??wall thickening and contraction of segments. ?? Resting study shows no change in perfusion pattern compared to stress ?? perfusion study. Gating at rest reveals normal systolic wall motion ?? with ejection fraction at 68%. ? The findings are consistent with normal myocardial perfusion. ? NM/NM dinesh perf SPECT rest ?? str ?? Impression: ? 1. ??Myocardial perfusion imaging study shows normal myocardial perfusion ?? 2. ??Gated LVEF is 67% ?? 3. Transient ischemic dilatation not present ? Nondiagnostic changes on EKG. ? Electronically signed by: ??Justen Padilla MD ??03/17/2024 04:31 PM EST RP ? Dictated By: ?Justen Padilla MD ? Signed By: ?<Electronically signed by Justen Padilla MD in OV> ?03/17/24 1631 ? DD/ 0938 ? TD/TT: 03/17/24 1500 ? Car Retarder Operator: ? Procedure Note Carissa, Image - 03/17/[address] [address] Nuclear Medicine Report Signed Patient: Arnav Dalton#: [id number] 1 : 5Acct:[id number] Age/Sex: 68 / FADM Date: 03/14/24 Loc: [facility] Attending Dr: Justen Padilla MD Ordering Physician: Justen Padilla MD Date of Service: 03/14/24 Procedure(s): NM dinesh perf SPECT rest str Accession Number(s): [id number] cc: [place] CIFUENTES PAPER BAG MACHINE OPERATOR; Justen Padilla MD Lexiscan Myocardial perfusion study Indication: Atypical chest pain to evaluate for myocardial ischemia Technique: The patient was brought in for a Lexiscan perfusion study on March 14, 2024 and was injected 0.4 mg of Lexiscan intravenously. Within a minute of this injection 30 mCi of sestamibi was given intravenously. Images were obtained using the SPECT gamma camera interlaced with the gating device. Images were obtained in supine position. Resting perfusion study was performed on March 17, 2024. Patient was administered 30 mCi of sestamibi intravenously at rest. Images were then obtained in supine position. Images obtained without without CT attenuation. Total DLP 110 mGy-cm. Images were processed with the software and compared side to side in short axis, horizontal long axis and vertical long axis views. Findings: The stress perfusion study showed nonattenuated images show small area mildly reduced uptake of the basal inferior wall of the LV myocardium. Remainder of the LV myocardium normally perfused. Attenuated corrected images show moderately reduced uptake in the apex of the LV myocardium. The gated study shows normal LV systolic function with calculated LVEF of 67%. LV cavity is normal in size. The gated study shows normal systolic wall thickening and contraction of segments. Resting study shows no change in perfusion pattern compared to stress perfusion study. Gating at rest reveals normal systolic wall motion with ejection fraction at 68%. The findings are consistent with normal myocardial perfusion. NM/NM dinesh perf SPECT rest str Impression: 1. Myocardial perfusion imaging study shows normal myocardial perfusion 2. Gated LVEF is 67% 3. Transient ischemic dilatation not present Nondiagnostic changes on EKG. Electronically signed by: Justen Padilla MD 03/17/2024 04:31 PM EST Dictated By: Justen Padilla MD Signed By: <Electronically signed by Justen Padilla MD in OV> 03/17/24 1631 DD/ 0938 TD/TT: 03/17/24 1500 Car Retarder Operator: [facility] External Provider IMG NM PROCEDURES Edited Result - Final * (ABNORMAL) POCT HGB A1C (11/26/2023 2:55 PM EDT) Pathologist [facility] Hemoglobin A1C 8.0(A) 4.0 - 6.0 % QC Media Lot # [id number] Lot# Expiration Date Blood 11/26/2023 2:55 PM EDT [place]ia Cifuentes ANP POINT OF CARE TEST ENTER/EDIT OR DERABLES Final Result * (ABNORMAL) Colonoscopy (12/23/2022) Pathologist [facility] Colonoscopy Abnormal( A) Normal [facility] Comment:tubular adenoma 12/23/2022 Yuni Jeffery MD HEALTH MAINTENANCE Final Result Performing Organization Address City/[facility]/ZIP Co de Phone Number [facility] [address] [place] [address] [phone] * Albumin, Random Urine W/Creatinine (08/15/2022 1:45 PM EDT) [facility] Creatinine, Urine 50.16 mg/dL [facility] Microalbumin Urine 12.0 mg/L [facility] Microalbum Creatinine Ratio Ur 23.9 ug/mg cr [facility] Comment:Albumin/Creatinine R atio Reference Ranges: Normal: < 30 ug/mg creatinine Microalbuminuria: 30 - 300 ug/mg creatinineClinical Albuminuria: > 300 ug/mg creatinine 08/15/2022 1:45 PM EDT 08/15/2022 2:19 PM EDT [facility] External Provider LAB URI NE ORDERABLES Final Result Performing Organization Address [facility]/ZIP Co de Phone Number [facility] [address] [place] [address] [phone] * Direct LDL (08/15/2022 12:35 PM EDT) Pathologist [facility] LDL Direct 70 <100 mg/dL [facility] Comment:Greatly elevated Tri glycerides values (>1200 mg/dL)interfere with the dLDL assay. As no Triglyceridestesting was ordered, interpret results with caution.Desirable range <100 mg/dL for primary prevention;<70 mg/dL for patients with CHD or diabetic patientswith > or = 2 CHD risk factors.THIS TEST WAS PERFORMED AT:[facility] [place] [id number] JAIME MD 08/15/2022 12:3 5 PM EDT 08/15/2022 12:36 PM EDT [facility] External Provider LAB BLO OD ORDERABLES Final Result [facility] [address] [place] [address] [phone] * 3D DIGITAL TONY SCR MAMMO 1 (12/07/2018 11:01 AM EDT) Anatomical Region Laterality Modality Breast Bilateral Mammography 12/07/2018 11:0 1 AM EDT Narrative 12/07/2018 11:04 AM EDT Refer to the Notes tab for result details Legacy Procedure: 3D DIGITAL TONY SCR MAMMO 1 Procedure Note Provider, MD Tabatha - 06/07/2022 Refer to the Notes tab for result details Legacy Procedure: 3D DIGITAL TONY SCR MAMMO 1 Roger Bruno FURNITURE DECALS INSPECTOR IMG BI PROCEDURES Final Result from Last 3 Months or Most Recently Relevant to Health Maintenance Insurance [facility] Care Teams Director Immunology Relationship Specialty Start Date End Date Albania Cifuentes ANP [address] [place] [address] PCP - General Family Medicine 10/03/19 [facility] 07/31/23
--- OUTSIDE RECORDS SUMMARY | 2024-04-18 15:48 | XMS_ITS | Encounter Summary ---
Author Organization [employer] Address [address] [facility] 7t [place] [address] Care Team Providers Care Sheep Farm Worker Name Role Phone Breanna Zamudio Primary Care Provider [phone] Encounter Details Date Type Department Care Team ([facility] st Contact Info) Description 08/06/[address] [facility] [address] [place], [place] [phone] Breanna Zamudio ANP [address] [place], [place] [phone] Social History Tobacco Use Types Packs/Day Years Used Date Smoking Tobacco: Never Passive Smoke Exposure: Never Smokeless Tobacco: Never Alcohol Use Standard Drinks/Week Comments Not Currently 0 (1 standard drink = 0.6 oz pur e alcohol) Housing Stability Answer Date Recorded What is [...] Description 06/07/2024 2:00 PM EDT Office Visit [facility] [address] [place] [address] Breanna Zamudio ANP [address] [place] [address] documented as of this encounter Visit Diagnoses Not on filedocumented in this encounter Care Teams Sheep Farm Worker Relationship Specialty Start Date End Date Breanna Zamudio ANP [address] [place] [address] PCP - General Family Medicine 10/03/19 [facility] 07/31/23 documented as of this encounter
--- OUTSIDE RECORDS SUMMARY | 2024-04-18 15:48 | XMS_ITS | Encounter Summary ---
Author Organization [employer] Address [address] [facility] 7t [place] [address] Care Team Providers Care Strip Mine Supervisor Name Role Phone Breanna Zamudio Primary Care Provider [phone] Reason for Visit * Reason Onset Date Comments FYI 08/31/2023 Encounter Details Date Type Department Care Team (Late st Contact Info) Description 08/31/2023 Telephone [facility] MEDICINE [address] [place] [address] Breanna Zamudio ANP [address] [place] [address] FYI Social History Tobacco Use Types Packs/Day Years [...] encounter Miscellaneous Notes * Telephone Encounter - Cristy Higuera - 08/31/2023 2:36 PM EDT Tc from Caroline (Physical Therapist) with [facility] calling to inform pt is getting discharge as of today from PT services. Any questions [phone] documented in this encounter Plan of Treatment Upcoming Encounters Date Type Department Care Team (Late st Contact Info) Description 06/07/2024 2:00 PM EDT Office Visit [facility] [address] [place] [address] Breanna Zamudio ANP [address] [place] [address] documented as of this encounter Visit Diagnoses Not on filedocumented in this encounter Care Teams Strip Mine Supervisor Relationship Specialty Start Date End Date Breanna Zamudio ANP [address] [place] [address] PCP - General Family Medicine 10/03/19 [facility] [place] 07/31/23 documented as of this encounter
--- OUTSIDE RECORDS SUMMARY | 2024-04-18 15:48 | XMS_ITS | Encounter Summary ---
Author Organization [employer] Address [address] [facility] 7t [place] [address] Care Team Providers Care Breeding Manager Name Role Phone Breanna Zamudio Primary Care Provider [phone] Reason for Visit * Reason Comments Med Refill Encounter Details Date Type Department Care Team ([facility] st Contact Info) Description 04/09/2024 Refill [facility] MEDICINE [address] [place], [place] [phone] Marce Gross MD [address] [place] [address] Insomnia disorder with non-sleep disorder mental comorbidity Social History Tobacco Use Types Packs/Day Years [...] Description 06/07/2024 2:00 PM EDT Office Visit [facility] MEDICINE [address] [place] [address] Breanna Zamudio ANP [address] [place] [address] documented as of this encounter Visit Diagnoses Diagnosis Insomnia disorder with non-sleep disorder mental comorbidity documented in this encounter Care Teams Breeding Manager Relationship Specialty Start Date End Date Breanna Zamudio ANP [address] [place] [address] PCP - General Family Medicine 10/03/19 [facility] 07/31/23 documented as of this encounter
--- OUTSIDE RECORDS SUMMARY | 2024-04-18 15:48 | XMS_ITS | Encounter Summary ---
Author Organization [employer] Address [address] [facility] 7t [place] [address] Care Team Providers Care Civil Engineering Draftsperson Name Role Phone Breanna Zamudio Primary Care Provider [phone] Encounter Details Date Type Department Care Team (Late Contact Info) Description 03/19/2022 Orders Only [facility] & PEDS [address] [place] [address] Breanna Zamudio ANP [address] [place] [address] Moderate persistent asthma without complication (Primary Dx) Social History Tobacco Use Types Packs/Day Years Used Date Smoking Tobacco: Never Assessed Comments Unknown Sex and Gender Information Value [...] Description 06/07/2024 2:00 PM EDT Office Visit [facility] MEDICINE [address] [place] [address] Breanna Zamudio ANP [address] [place] [address] documented as of this encounter Visit Diagnoses Diagnosis Moderate persistent asthma without complication- Primary documented in this encounter Care Teams Civil Engineering Draftsperson Relationship Specialty Start Date End Date Breanna Zamudio ANP [address] [place] [address] PCP - General Family Medicine 10/03/19 [facility] 07/31/23 documented as of this encounter
--- OUTSIDE RECORDS SUMMARY | 2024-04-18 15:48 | XMS_ITS | Encounter Summary ---
Author Organization [employer] Address [address] [facility] 7t [place] [address] Care Team Providers Care Viscosity Worker Name Role Phone Breanna Zamudio Primary Care Provider [phone] Reason for Visit * Reason Onset Date Comments Med Refill 02/27/2023 Encounter Details Date Type Department Care Team (Late st Contact Info) Description 02/27/2023 Telephone [facility] MEDICINE [address] [place] [address] Breanna Zamudio ANP [address] [place] [address] Med Refill Social History Tobacco Use Types [...] encounter Miscellaneous Notes * Telephone Encounter - Hawa Manzano LPN - 02/27/2023 1:04 PM EST Medication is prescribed by Endo. * Telephone Encounter - Cristy Higuera - 02/27/2023 11:58 AM EST Tc from pt requesting med refill on; Ozempic, 0.25 or 0.5 MG/DOSE, 2 MG/1.5ML solution pen-injector documented in this encounter Plan of Treatment Upcoming Encounters Date Type Department Care Team (Late st Contact Info) Description 06/07/2024 2:00 PM EDT Office Visit [facility] MEDICINE [address] [place] [address] Breanna Zamudio ANP [address] [place] [address] documented as of this encounter Visit Diagnoses Not on filedocumented in this encounter Care Teams Viscosity Worker Relationship Specialty Start Date End Date Breanna Zamudio ANP [address] [place], [place] [phone] PCP - General Family Medicine 10/03/19 [facility] 07/31/23 documented as of this encounter
--- OUTSIDE RECORDS SUMMARY | 2024-04-18 15:48 | XMS_ITS | Encounter Summary ---
Author Organization [employer] Address [address] [facility] 7t [place] [address] Care Team Providers Care Assistant Community Manager Name Role Phone Breanna Zamudio Primary Care Provider [phone] Reason for Visit * Reason Onset Date Comments Med Refill 04/11/2024 Encounter Details Date Type Department Care Team ([facility] st Contact Info) Description 04/11/2024 Refill [facility] MED & PEDS [address] [place] [address] Sis Coppola RN [address] [place] [address] Ischemic colitis ([facility]) Social History Tobacco Use Types [...] Telephone Encounter - Sis Coppola RN - 04/11/2024 3:22 PM EST TC back to pt regarding message below. Called via BLS ID#[id number]. No answer. Lvm for pt to c/b and schedule CANDY POLISHER appt. documented in this encounter Plan of Treatment Upcoming Encounters Date Type Department Care Team (Late st Contact Info) Description 06/07/2024 2:00 PM EDT Office Visit [facility] MEDICINE [address] [place] [address] Breanna Zamudio ANP [address] [place] [address] documented as of this encounter Visit Diagnoses Diagnosis Ischemic colitis (CMS/HCC) documented in this encounter Care Teams Assistant Community Manager Relationship Specialty Start Date End Date Breanna Zamudio ANP [address] [place] [address] PCP - General Family Medicine 10/03/19 [facility] 07/31/23 documented as of this encounter
--- OUTSIDE RECORDS SUMMARY | 2024-04-18 15:48 | XMS_ITS | Encounter Summary ---
Author Organization [email or web address] Address 75 [facility] 7t [place] [address] Care Team Providers Care Bank Officer Name Role Phone Breanna Zamudio Primary Care Provider [phone] Reason for Visit * Reason Comments Med Refill Encounter Details Date Type Department Care Team ([facility] st Contact Info) Description 08/24/2023 Refill [facility] MEDICINE [address] [place] [address] Breanna Zamudio ANP [address] [place] [address] Ischemic colitis ([facility]) Social History Tobacco Use Types Packs/Day Years [...] Description 06/07/2024 2:00 PM EDT Office Visit [facility] MED[facility] [address] [place] [address] Breanna Zamudio ANP [address] [place] [address] documented as of this encounter Visit Diagnoses Diagnosis Ischemic colitis (CMS/HCC) documented in this encounter Care Teams Bank Officer Relationship Specialty Start Date End Date Breanna Zamudio ANP [address] [place] [address] PCP - General Family Medicine 10/03/19 [facility] 07/31/23 documented as of this encounter
--- OUTSIDE RECORDS SUMMARY | 2024-04-18 15:48 | XMS_ITS | Encounter Summary ---
Author Organization [employer] Address [address] [facility] [address] [place] [address] Care Team Providers Care Emergency Medical Dispatcher Name Role Phone Breanna Zamudio Primary Care Provider [phone] Reason for Visit * Reason Onset Date Comments Durable Medical Equipment 09/08/2022 Encounter Details Date Type Department Care Team (Late st Contact Info) Description 09/08/2022 Telephone [facility] MEDICINE [address] [place] [address] Breanna Zamudio ANP [address] [place] [address] Durable Medical Equipment Social History Tobacco Use Types Packs/Day Years [...] * Telephone Encounter - Kristy Childers - 09/24/2022 1:22 PM EDT Tc from pt requesting status on nebulizer machines, please see notes,. Please contact at [phone] Persian * Telephone Encounter - RICARDO Caraballo - 09/19/2022 6:26 PM EDT Yes, of course. Thank you. Will place signed RX on your desk. * Telephone Encounter - Madhuri Doe - 09/18/2022 1:56 PM EDT Tc from [facility] with [facility] requesting status on nebulizer. States if script has not been sent to [facility], fax to [facility]. FAX: [phone] Please contact [facility] at [phone] ext [phone] * Telephone Encounter - Rosalinda Rucker - 09/08/2022 3:29 PM EDT Tc from patient requesting a new script for a nebulizer machine. States current one broke. documented in this encounter Plan of Treatment Upcoming Encounters Date Type Department Care Team (Late st Contact Info) Description 06/07/2024 2:00 PM EDT Office Visit [facility] MEDICINE [address] [place] [address] Breanna Zamudio ANP [address] [place] [address] documented as of this encounter Visit Diagnoses Not on filedocumented in this encounter Care Teams Emergency Medical Dispatcher Relationship Specialty Start Date End Date Breanna Zamudio ANP [address] [place] [address] PCP - General Family Medicine 10/03/19 [facility] [place] 07/31/23 documented as of this encounter
--- OUTSIDE RECORDS SUMMARY | 2024-04-18 15:48 | XMS_ITS | Encounter Summary ---
Author Organization [employer] Address [address] [facility] 7t [place] [address] Care Team Providers Care Carbon Rod Inserter Name Role Phone Breanna Zamudio Primary Care Provider [phone] Reason for Visit * Reason Onset Date Comments Appointment Request 04/11/2024 Encounter Details Date Type Department Care Team ([facility] st Contact Info) Description 04/11/2024 Telephone [facility] MEDICINE [address] [place] [address] Breanna Zamudio ANP [address] [place] [address] Appointment Request Social History Tobacco Use Types [...] encounter Miscellaneous Notes * Telephone Encounter - Leisa Trotter - 04/11/2024 10:58 AM EST Tc from pt spouse requesting to r/s PHARMACY INFORMATICIST visit. Contact pt at [phone](kittitian) documented in this encounter Plan of Treatment Upcoming Encounters Date Type Department Care Team (Late st Contact Info) Description 06/07/2024 2:00 PM EDT Office Visit [facility] MEDICINE [address] [place] [address] Breanna Zamudio ANP [address] [place] [address] documented as of this encounter Visit Diagnoses Not on filedocumented in this encounter Care Teams Carbon Rod Inserter Relationship Specialty Start Date End Date Breanna Zamudio ANP [address] [place] [address] PCP - General Family Medicine 10/03/19 [facility] 07/31/23 documented as of this encounter
--- OUTSIDE RECORDS SUMMARY | 2024-04-18 15:48 | XMS_ITS | Encounter Summary ---
Author Organization [employer] Address [address] [place] [address] [address] [place] [address] Care Team Providers Care Life Care Planner Name Role Phone Breanna Zamudio Primary Care Provider Reason for Visit * Reason Comments Med Refill Encounter Details Date Type Department Care Team (Late st Contact Info) Description 11/21/2022 Refill [facility] MEDICINE [address] [place] [address] Breanna Zamudio ANP [address] [place] [address] Pain in unspecified joint Social History Tobacco [...] Description 06/07/2024 2:00 PM EDT Office Visit [facility] MEDICINE [address] [place] [address] Breanna Zamudio ANP [address] [place] [address] documented as of this encounter Visit Diagnoses Diagnosis Pain in unspecified joint documented in this encounter Care Teams Life Care Planner Relationship Specialty Start Date End Date Breanna Zamudio ANP [address] [place] [address] PCP - General Family Medicine 10/03/19 [facility] 07/31/23 documented as of this encounter
--- OUTSIDE RECORDS SUMMARY | 2024-04-18 15:48 | XMS_ITS | Encounter Summary ---
Author Organization [employer] Address [address] [facility] 7t [place] [address] Care Team Providers Care Quality Assurance Monitor Name Role Phone Breanna Zamudio Primary Care Provider [phone] Encounter Details Date Type Department Care Team (Late st Contact Info) Description 04/18/2024 Orders Only GENERIC EXTERNAL DATA DEPARTMENT Provider, Generic External Data Social History Tobacco Use Types Packs/Day Years [...] Description 06/07/2024 2:00 PM EDT Office Visit [facility] MEDICINE [address] [place] [address] Breanna Zamudio ANP [address] [place] [address] documented as of this encounter Procedures Procedure Name Priority Date/Time Associated Diagnosis Comments BASIC METABOLIC PANEL Routine 04/18/2024 2:33 PM EST documented in this encounter Results * (ABNORMAL) Basic Metabolic Panel (04/18/2024 2:33 PM EST) Sodium 140 135 - 145 mmol/L [facility] Potassium 4.4 3.3 - 5.1 mmol/L [facility] Chloride 107 96 - 108 mmol/L [facility] Carbon Dioxide 26 22 - 29 mmol/L [facility] Anion Gap 11(L) 12 - 20 [facility] Urea Nitrogen (BUN) 12 9 - 16 mg/dL [facility] Creatinine, Serum 0.82 0.5 - 1.4 mg/dL [facility] Estimated Glomerular Filt Rate >60 [facility] Comment:Chronic Kidney Disea se: Estimated GFR < 60 mL/min/1.04l8Bxlkhw Kidney Disease: Estimated GFR < 15 mL/min/1.73m2 Glucose 198(H) 60 - 115 mg/dL [facility] Calcium 9.3 8.4 - 10.2 mg/dL [facility] 04/18/2024 2:33 PM EST 04/18/2024 2:33 PM EST us Generic External Data Provider LAB BLOOD ORDERAB LES Final Result [facility] [address] [place] [address] [phone] documented in this encounter Visit Diagnoses Not on filedocumented in this encounter Care Teams Quality Assurance Monitor Relationship Specialty Start Date End Date Breanna Zamudio ANP [address] [place] [address] PCP - General Family Medicine 10/03/19 [facility] 07/31/23 documented as of this encounter
--- OUTSIDE RECORDS SUMMARY | 2024-04-18 15:48 | XMS_ITS | Encounter Summary ---
Author Organization [employer] Address [address] [facility] 7t [place] [address] Care Team Providers Care Fisher Quahog Name Role Phone Breanna Zamudio Primary Care Provider [phone] Reason for Visit * Reason Onset Date Comments Appointment Request 01/28/2024 Encounter Details Date Type Department Care Team ([facility] st Contact Info) Description 01/28/2024 Telephone [facility] MEDICINE [address] [place] [address] Breanna Zamudio ANP [address] [place] [address] Appointment Request Social History Tobacco Use Types [...] encounter Miscellaneous Notes * Telephone Encounter - Yangolinda Alvarado - 01/28/2024 8:58 AM EST Tc from pt requesting to r/s PARASITOLOGY TEACHER RN appt scheduled for 01/29/24, states they are currently on vacation until 02/27/24. Please contact at [phone] documented in this encounter Plan of Treatment Upcoming Encounters Date Type Department Care Team (Late st Contact Info) Description 06/07/2024 2:00 PM EDT Office Visit [facility] MEDICINE [address] [place] [address] Breanna Zamudio ANP [address] [place] [address] documented as of this encounter Visit Diagnoses Not on filedocumented in this encounter Care Teams Fisher Quahog Relationship Specialty Start Date End Date Breanna Zamudio ANP [address] [place] [address] PCP - General Family Medicine 10/03/19 [facility] 07/31/23 documented as of this encounter
== END 2024-04-18 14:08 | disposition home or self-care (01) ==
LOC: HO.LAB 14:07
PROVIDERS: PCP Nurse Practitioner Primary Care
DX: R07.89 Other chest pain (principal)
CPT/HCPCS: 36415; 80048

== ENCOUNTER 2024-04-26 13:13 | Outpatient (AMB) | payer OTHER, SELFPAY ==
--- NOTE | 2024-04-26 13:21 | A.OFFVIS_ITS ---
Vital Signs 04/26/24 13:25 04/26/24 13:55 Height 5 ft 5 in Weight 201 lb 8.04 oz BMI 33.5 BP 130/68 Blood Pressure Location Lt brachial Position Sitting Pulse 50 54 Pulse Source Pulse Oximeter Pulse Oximetry (%) 100 Oxygen Delivery Method Room Air Intake Visit Reasons: DM Intake Note: Patient present today to follow up on Type 2 Diabetes Mellitus. Last Diabetic Eye exam: has an appointment this month. Last Podiatry Visit: 09/2023 Random Glucose: 175 mg/dl HgA1C: 7.5% 04/26/24 Scientific Illustrator Required: Yes Scientific Illustrator Language: Military Science Teacher Services: Scientific Illustrator Present Scientific Illustrator Name: Sylvie [id number] Information Interpreted: non-clinical & clinical Accompanied by: RACK PULLER Allergies hazelnut Allergy (Mild, Verified 04/26/24 13:26) per allergy skin test peanut Allergy (Mild, Verified 04/26/24 13:26) per allergy skin test HPI Comments Details: This is a 69-year-old female with a past medical history of nontoxic multi nodular goiter, type 2 diabetes, hypothyroidism, secondary hyperparathyroidism, hypertension, hyperlipidemia , COPD and PE on chronic anticoagulation presenting for diabetes follow up. Maori video interpreter translator used for appointment. Patient does not have a glucometer with her today. We sent a prescription for the Manuelito 3 sensor and reader , and she said she spoke to the pharmacist right before seeing me, and she can pick it up today. Hemoglobin A1c 7.5% today 04/26/2024 down from 9.4%. Current regimen: Ozempic 2 mg weekly. Metformin ER 1000 mg b.i.d. Lantus 38 units at bedtime Jardiance 25 mg q.a.m. Past medication: Actos discontinued due to lower leg edema. Diet: Breaskfast: eggs, sausages, black coffee Lunch: salad with chicken Dinner: rice, steak and salad Occasionally has chocolate. No alcohol use. Denies neuropathy symptoms. Hyperglycemia symptoms: denies Hypoglycemia symptoms: denies Eye exam: She has an appointment this month. The patient has hypertension, on lisinopril 40 mg, metoprolol succinate 200 mg Hyperlipidemia is treated with rosuvastatin 40 mg. ROS: Constitutional: No unexplained weight loss, fever, chills or night sweats. Eyes: No vision change Gastrointestinal: No anorexia, nausea, vomiting or diarrhea. No abdominal pain Neurologic: No headache, dizziness, syncope Skin: No rash Endocrine: No cold or heat intolerance. No polyuria or polydipsia. Physical exam: Constitutional: Alert, in no distress. Eyes: Pupils are equal, round and reactive to light. Extraocular muscles intact. Neck: Supple, Full range of motion. No lymphadenopathy. No palpable thyroid masses. Respiratory: Clear to auscultation. Cardiovascular: S1 S2 regular. No murmurs. Feet: No lesions or ulcers, feet are warm and well perfused, intact DP pulses, B/L decreased vibratory sensation, intact sensation bilaterally to monofilament PFSH Medical History Asthma-COPD overlap syndrome Hypertension Diabetes MGUS (monoclonal gammopathy of unknown significance) Chronic restrictive lung disease Obesity (BMI 30.0-34.9) Cough due to SHANELLE inhibitor Eosinophilia Asthma T2DM (type 2 diabetes mellitus) Erosive gastritis Leg edema, left Hyperparathyroidism Vitamin D deficiency Multinodular thyroid Thyroid nodule Skin lesion of chest wall Type 2 diabetes mellitus with diabetic polyneuropathy Fibromyalgia Depression with anxiety Cervical cancer Osteoarthritis of left knee Osteopenia GERD (gastroesophageal reflux disease) Diabetes mellitus with hyperglycemia Meir's disease Other specified acquired hypothyroidism Hyperlipidemia LDL goal <100 Essential hypertension Vitamin B12 deficiency Other obesity due to excess calories BMI 35.0-35.9,adult Surgical History Hx of elbow surgery Hx of hand surgery Hx of arthroscopic knee surgery History of cholecystectomy History of arthroplasty of right knee Hx of hysterectomy Hx of foot surgery History of bilateral carpal tunnel release Hx of bilateral oophorectomy History of esophagogastroduodenoscopy (EGD) Hx of colonoscopy Family History Father CVD (cardiovascular disease) Diabetes mellitus Stroke Mother Stroke Diabetes mellitus Breast cancer Hyperthyroidism Social History Household Members: Spouse Housing: House Housing Other:: 2nd floor-2 family house Are you a primary health care coordinator to a significant other at home: No Do you presently have visiting nurse or other home services: Yes (RACK PULLER) Alcohol intake: never Comment: continues with camera Patient Tobacco Use Status: Never used Tobacco service: No 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al status: disabled 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: Right Handed Female Reproductive History Menstrual Age of Menarche: 11 Physical Exam Vital Signs: Last Vital Signs Pulse 50 04/26/24 13:25 BP 130/68 04/26/24 13:25 Pulse Ox 100 04/26/24 13:25 Oxygen Delivery Method Room Air 04/26/24 13:25 BMI result Body Mass Index 33.5 Results AMB Hemoglobin A1c AMB Hemoglobin A1c 7.5 % Last Edit by ALBIN Rock on 04/26/24 13:48 Results Reviewed Results Reviewed: Laboratory Last Values Glucose (Clinic) 175 mg/dL (60-115) H 04/26/24 13:34 Laboratory Tests 08/15/22 04/17/23 04/19/23 12:35 15:56 Unknown Creatinine Estimated GFR Hgb A1c (Clinic) AST ALT Triglycerides 154 H Cholesterol 219 H LDL Cholesterol Direct 70 HDL Cholesterol 54 Vitamin B12 TSH Ur Creatinine 24 Hour 0.46 L Ur Calcium 24 Hr 88 Calcium/Creat 24 Hr 192 10/09/23 11/30/23 01/07/24 14:44 15:24 14:11 Creatinine Estimated GFR Hgb A1c (Clinic) 7.7 H AST 18 ALT 31 Triglycerides Cholesterol LDL Cholesterol Direct HDL Cholesterol Vitamin B12 401 TSH 1.18 Ur Creatinine 24 Hour Ur Calcium 24 Hr Calcium/Creat 24 Hr 04/18/24 14:33 Creatinine 0.82 Estimated GFR > 60 Hgb A1c (Clinic) AST ALT Triglycerides Cholesterol LDL Cholesterol Direct HDL Cholesterol Vitamin B12 TSH Ur Creatinine 24 Hour Ur Calcium 24 Hr Calcium/Creat 24 Hr Assessment & Plan Assessment & Plan (1) Type 2 diabetes mellitus with diabetic polyneuropathy: Code(s): E11.42 - Type 2 diabetes mellitus with diabetic polyneuropathy Category: Medical Qualifiers: Diabetes mellitus predatory animal exterminator insulin use: with predatory animal exterminator use Qualified Code(s): E11.42 - Type 2 diabetes mellitus with diabetic polyneuropathy; Z79.4 - intermediate (current) use of insulin Plan In summary this is a 69-year-old female with suboptimally controlled type 2 diabetes. If you experience low blood sugar, treat this by eating a chewable fruit candy like skittles or jelly beans (about 8 pieces), 4 ounces (1/2 cup) of fruit juice (not diet), 1 tablespoon of honey or 4 glucose tablets. If your blood sugar is under 55, take double the amount of one of the above. Recheck your blood sugar in 15 minutes. After you case picker the Manuelito 3 sensor and reader from the pharmacy and use this, you can increase Lantus from 38 to 42 units. If you develop low blood sugar, please decrease to 40 units. Continue Metformin 1000 mg twice daily. Continue Jardiance 25 mg daily. Continue Ozempic 2 mg weekly. She has an eye exam this month. Reviewed lifestyle modifications and dietary recommendations with the patient. Complications of type 2 diabetes discussed with the patient. Follow up in 4 weeks for type 2 diabetes. Orders: Orders AMB Hemoglobin A1c Today E11.42 - Type 2 diabetes mellitus with diabetic polyneuropathy, Z79.4 - intermediate (current) use of insulin Medications: Refilled blood-glucose meter,continuous (FreeStyle Manuelito 3 [place]) Use daily to monitor blood glucose levels continuously. 1 ea 0RF E11.42 - Type 2 diabetes mellitus with diabetic polyneuropathy, Z79.4 - intermediate (current) use of insulin blood-glucose sensor (FreeStyle Manuelito 3 Sensor device) apply new sensor every 14 days 2 ea 11RF E11.42 - Type 2 diabetes mellitus with diabetic polyneuropathy, Z79.4 - intermediate (current) use of insulin Discontinued flash glucose sensor (FreeStyle Manuelito 2 Sensor kit) Discontinued Reason: Doctor's Order USE DIRECTED TO CHECK BLOOD SUGAR. CHANGE EVERY 14 DAYS 2 ea 11RF E11.42 - Type 2 diabetes mellitus with diabetic polyneuropathy, Z79.4 - superintendent container terminal (current) use of insulin Patient Instructions: If you experience low blood sugar, treat this by eating a chewable fruit candy like skittles or jelly beans (about 8 pieces), 4 ounces (1/2 cup) of fruit juice (not diet), 1 tablespoon of honey or 4 glucose tablets. If your blood sugar is under 55, take double the amount of one of the above. Recheck your blood sugar in 15 minutes. After you case picker the Manuelito 3 sensor and reader from the pharmacy and use this, you can increase Lantus from 38 to 42 units. If you develop low blood sugar, please decrease to 40 units. Continue Metformin 1000 mg twice daily. Continue Jardiance 25 mg daily. Continue Ozempic 2 mg weekly. Si experimenta un nivel bajo de az?car en la junior, tr?telo comiendo un dilia de fruta masticable miguel bolos o gominolas (aproximadamente 8 piezas), 4 onzas (1/2 taza) de jugo de fruta (no diet?galo), 1 cucharada de miel o 4 tabletas de glucosa. Si garza nivel de az?car en junior es inferior a 55, tome el doble de zeenat de los anteriores. Vuelva a controlar garza nivel de az?car en la junior en 15 minutos. Despu?s de recoger el sensor y el lector Manuelito 3 en la farmacia y usarlos, puede aumentar Lantus de 38 a 42 unidades. Si desarrolla un nivel bajo de az?car en la junior, disminuya a 40 unidades. Contin?e con metformina 1000 mg dos veces al d?a. Contin?e con Jardiance 25 mg al d?a. Contin?e con Ozempic 2 mg por semana. Coding Level of Care Code Est Pt Level 5 (70448) Complex EM visit Add On G2211 Diagnoses Type 2 diabetes mellitus with diabetic polyneuropathy, with long-term current use of insulin E11.42; Z79.4 Diabetes mellitus predatory animal exterminator insulin use: with group home use Time Spent (min) 47 Comment Chart review, direct patient care, completing documentation
[2024-04-26 13:25] VITALS: BP 130/68; PULSE 50; O2SAT 100; BMI 33.5
[2024-04-26 13:41] LABS: Glucose, Whole Blood 175 mg/dL (60-115)
[2024-04-26 13:55] VITALS: PULSE 54
--- OUTSIDE RECORDS SUMMARY | 2024-04-26 14:18 | XMS_ITS | Encounter Summary ---
Author Organization [employer] Address [address] [facility] 7t [place] [address] Care Team Providers Care Framing Inspector Name Role Phone Breanna Zamudio Primary Care Provider [phone] Reason for Visit * Reason Onset Date Comments Med Refill 12/21/2023 Encounter Details Date Type Department Care Team (Late st Contact Info) Description 12/21/2023 Telephone [facility] [address] [place] [address] Breanna Zamudio ANP [address] [place] [address] Med Refill Social History Tobacco Use Types [...] Care Team (Late st Contact Info) Description 05/12/2024 2:00 PM EST Office Visit [facility] [address] [place] [address] Breanna Zamudio ANP [address] [place] [address] documented as of this encounter Visit Diagnoses Not on filedocumented in this encounter Care Teams Framing Inspector Relationship Specialty Start Date End Date Breanna Zamudio ANP [address] [place] [address] PCP - General Family Medicine 10/03/19 [facility] 07/31/23 documented as of this encounter
--- OUTSIDE RECORDS SUMMARY | 2024-04-26 14:18 | XMS_ITS | Encounter Summary ---
Author Organization [employer] Address [address] [facility] 7t [place] [address] Care Team Providers Care Basketball Assembler Name Role Phone Breanna Zamudio Primary Care Provider Reason for Visit * Reason Onset Date Comments Med Refill 10/27/2023 Encounter Details Date Type Department Care Team (Late st Contact Info) Description 10/27/2023 Telephone [facility] [address] [place] [address] Breanna Zamudio ANP [address] [place] [address] Med Refill Social History Tobacco Use Types [...] immediate release tablet To be sent to: [facility] documented in this encounter Plan of Treatment Upcoming Encounters Date Type Department Care Team (Late st Contact Info) Description 05/12/2024 2:00 PM EST Office Visit [facility] [address] [place] [address] Breanna Zamudio ANP [address] [place] [address] documented as of this encounter Visit Diagnoses Not on filedocumented in this encounter Care Teams Basketball Assembler Relationship Specialty Start Date End Date Breanna Zamudio ANP [address] [place] [address] PCP - General Family Medicine 10/03/19 [facility] 07/31/23 documented as of this encounter
--- OUTSIDE RECORDS SUMMARY | 2024-04-26 14:18 | XMS_ITS | Encounter Summary ---
Author Organization [employer] Address [address] [facility] 7t [place] [address] Care Team Providers Care Art Installer Name Role Phone Breanna Zamudio Primary Care Provider [phone] Reason for Visit * Reason Onset Date Comments Med Refill 01/21/2024 Encounter Details Date Type Department Care Team (Late st Contact Info) Description 01/21/2024 Telephone [facility]INE [address] [place] [address] Breanna Zamudio ANP [address] [place] [address] Med Refill Social History Tobacco Use Types [...] immediate release tablet To be sent to: [facility] - [place], [place] - [address] [place] [address] documented in this encounter Plan of Treatment Upcoming Encounters Date Type Department Care Team (Late st Contact Info) Description 05/12/2024 2:00 PM EST Office Visit [facility] [address] [place] [address] Breanna Zamudio ANP [address] [place] [address] documented as of this encounter Visit Diagnoses Not on filedocumented in this encounter Care Teams Art Installer Relationship Specialty Start Date End Date Breanna Zamudio ANP [address] [place] [address] PCP - General Family Medicine 10/03/19 [facility] 07/31/23 documented as of this encounter
--- OUTSIDE RECORDS SUMMARY | 2024-04-26 14:18 | XMS_ITS | Encounter Summary ---
Author Organization [employer] Address [address] [facility] 7t [place] [address] Care Team Providers Care Amalgamator Name Role Phone Breanna Zamudio Primary Care Provider Reason for Visit * Reason Onset Date Comments Medication Question 09/29/2023 Encounter Details Date Type Department Care Team (Late st Contact Info) Description 09/29/2023 Telephone [facility]INE [address] [place] [address] Breanna Zamudio ANP [address] [place] [address] Medication Question Social History Tobacco Use Types [...] leaving tmr morning 09/30/23. Please contact at [phone] documented in this encounter Plan of Treatment Upcoming Encounters Date Type Department Care Team (Late st Contact Info) Description 05/12/2024 2:00 PM EST Office Visit [facility] [address] [place] [address] Breanna Zamudio ANP [address] [place] [address] documented as of this encounter Visit Diagnoses Not on filedocumented in this encounter Care Teams Amalgamator Relationship Specialty Start Date End Date Breanna Zamudio ANP [address] [place] [address] PCP - General Family Medicine 10/03/19 [facility] 07/31/23 documented as of this encounter
--- OUTSIDE RECORDS SUMMARY | 2024-04-26 14:18 | XMS_ITS | Encounter Summary ---
Author Organization [employer] Address [address] [facility] 7t [place] [address] Care Team Providers Care Diversional Therapist Name Role Phone Breanna Zamudio Primary Care Provider [phone] Reason for Visit * Reason Onset Date Comments Med Refill 11/18/2023 Encounter Details Date Type Department Care Team (Late st Contact Info) Description 11/18/2023 Telephone [facility] [address] [place] [address] Breanna Zamudio ANP [address] [place] [address] Med Refill Social History Tobacco Use Types [...] immediate release tablet To be sent to: [facility] - [place], [place] - [address] [place] [address] documented in this encounter Plan of Treatment Upcoming Encounters Date Type Department Care Team (Late st Contact Info) Description 05/12/2024 2:00 PM EST Office Visit [facility] [address] [place] [address] Breanna Zamudio ANP [address] [place] [address] documented as of this encounter Visit Diagnoses Not on filedocumented in this encounter Care Teams Diversional Therapist Relationship Specialty Start Date End Date Breanna Zamudio ANP [address] [place] [address] PCP - General Family Medicine 10/03/19 [facility] 07/31/23 documented as of this encounter
--- OUTSIDE RECORDS SUMMARY | 2024-04-26 14:18 | XMS_ITS | Encounter Summary ---
Author Organization [employer] Address [address] [facility] 7t [place] [address] Care Team Providers Care Ride Attendant Name Role Phone Breanna Zamudio Primary Care Provider Reason for Visit * Reason Onset Date Comments Med Refill 03/15/2024 Encounter Details Date Type Department Care Team (Late st Contact Info) Description 03/15/2024 Telephone [facility]INE [address] [place] [address] Breanna Zamudio ANP [address] [place] [address] Med Refill Social History Tobacco Use Types [...] immediate release tablet To be sent to: [facility] documented in this encounter Plan of Treatment Upcoming Encounters Date Type Department Care Team (Late st Contact Info) Description 05/12/2024 2:00 PM EST Office Visit [facility] [address] [place] [address] Breanna Zamudio ANP [address] [place] [address] documented as of this encounter Visit Diagnoses Not on filedocumented in this encounter Care Teams Ride Attendant Relationship Specialty Start Date End Date Breanna Zmaudio ANP [address] [place] [address] PCP - General Family Medicine 10/03/19 [facility] 07/31/23 documented as of this encounter
--- OUTSIDE RECORDS SUMMARY | 2024-04-26 14:18 | XMS_ITS | Encounter Summary ---
Author Organization [employer] Address [address] [facility] 7t [place] [address] Care Team Providers Care Territory Sales Executive Name Role Phone Breanna Zamudio Primary Care Provider [phone] Reason for Visit * Reason Onset Date Comments Appointment Request 12/18/2023 Encounter Details Date Type Department Care Team ([facility] st Contact Info) Description 12/18/2023 Telephone [facility] [address] [place] [address] Breanna Zamudio ANP [address] [place] [address] Appointment Request Social History Tobacco Use Types [...] feeling well and had to cancel todays OFFICE SYSTEM ANALYST visit . Would like to reschedule . documented in this encounter Plan of Treatment Upcoming Encounters Date Type Department Care Team (Late st Contact Info) Description 05/12/2024 2:00 PM EST Office Visit [facility] [address] [place] [address] Breanna Zamudio ANP [address] [place] [address] documented as of this encounter Visit Diagnoses Not on filedocumented in this encounter Care Teams Territory Sales Executive Relationship Specialty Start Date End Date Breanna Zamudio ANP [address] [place] [address] PCP - General Family Medicine 10/03/19 [facility] 07/31/23 documented as of this encounter
--- OUTSIDE RECORDS SUMMARY | 2024-04-26 14:19 | XMS_ITS | Encounter Summary ---
Author Organization [employer] Address [address] [facility] 7t [place] [address] Care Team Providers Care Knit Goods Washer Name Role Phone Breanna Zamudio Primary Care Provider [phone] Reason for Visit * Reason Comments Med Refill Encounter Details Date Type Department Care Team (Late st Contact Info) Description 04/18/2024 Refill [facility] [address] [place] [address] Breanna Zamudio ANP [address] [place] [address] Moderate persistent asthma without complication Social History [...] Description 05/12/2024 2:00 PM EST Office Visit [facility] [address] [place] [address] Breanna Zamudio ANP [address] [place] [address] documented as of this encounter Visit Diagnoses Diagnosis Moderate persistent asthma without complication documented in this encounter Care Teams Knit Goods Washer Relationship Specialty Start Date End Date Breanna Zamudio ANP [address] [place] [address] PCP - General Family Medicine 10/03/19 [facility] [place] 07/31/23 documented as of this encounter
--- OUTSIDE RECORDS SUMMARY | 2024-04-26 14:19 | XMS_ITS | Encounter Summary ---
Author Organization [employer] Address [address] [facility] 7t [place] [address] Care Team Providers Care Frame Trimmer Name Role Phone Breanna Zamudio Primary Care Provider [phone] Reason for Visit * Reason Onset Date Comments Med Refill 02/27/2023 Encounter Details Date Type Department Care Team (Late st Contact Info) Description 02/27/2023 Telephone [facility]INE [address] [place] [address] Breanna Zamudio ANP [address] [place] [address] Med Refill Social History Tobacco Use Types [...] Description 05/12/2024 2:00 PM EST Office Visit [facility] [address] [place] [address] Breanna Zamudio ANP [address] [place], [place] [phone] documented as of this encounter Visit Diagnoses Not on filedocumented in this encounter Care Teams Frame Trimmer Relationship Specialty Start Date End Date Breanna Zamudio ANP [address] [place] [address] PCP - General Family Medicine 10/03/19 [facility] 07/31/23 documented as of this encounter
--- OUTSIDE RECORDS SUMMARY | 2024-04-26 14:19 | XMS_ITS | Encounter Summary ---
Author Organization [employer] Address [address] [facility] 7t [place] [address] Care Team Providers Care Ship Unloader Name Role Phone Breanna Zamudio Primary Care Provider [phone] Reason for Visit * Reason Comments Med Refill Encounter Details Date Type Department Care Team ([facility] st Contact Info) Description 04/09/[address] [facility] [address] [place] [address] Marce Gross MD [address] [place] [address] Insomnia disorder with non-sleep disorder mental comorbidity [...] Description 05/12/2024 2:00 PM EST Office [address] [facility] [address] [place] [address] Breanna Zamudio ANP [address] [place] [address] documented as of this encounter Visit Diagnoses Diagnosis Insomnia disorder with non-sleep disorder mental comorbidity documented in this encounter Care Teams Ship Unloader Relationship Specialty Start Date End Date Breanna Zamudio ANP [address] [place] [address] PCP - General Family Medicine 10/03/19 [facility] [place] 07/31/23 documented as of this encounter
--- OUTSIDE RECORDS SUMMARY | 2024-04-26 14:19 | XMS_ITS | Encounter Summary ---
Author Organization [employer] Address [address] [facility] 7t [place] [address] Care Team Providers Care Turf Farmer Name Role Phone Breanna Zamudio Primary Care Provider [phone] Reason for Visit * Reason Comments Med Refill Encounter Details Date Type Department Care Team ([facility] st Contact Info) Description 08/24/2023 Refill [facility] [address] [place] [address] Breanna Zamudio ANP [address] [place] [address] Ischemic colitis ([facility]) Social History Tobacco Use Types Packs/Day Years [...] Description 05/12/2024 2:00 PM EST Office Visit [facility] [address] [place] [address] Breanna Zamudio ANP [address] [place] [address] documented as of this encounter Visit Diagnoses Diagnosis Ischemic colitis (CMS/HCC) documented in this encounter Care Teams Turf Farmer Relationship Specialty Start Date End Date Breanna Zamudio ANP [address] [place] [address] PCP - General Family Medicine 10/03/19 [facility] 07/31/23 documented as of this encounter
--- OUTSIDE RECORDS SUMMARY | 2024-04-26 14:19 | XMS_ITS | Encounter Summary ---
Author Organization [employer] Address [address] [facility] 7t [place] [address] Care Team Providers Care Scraper Operator Name Role Phone Breanna Zamudio Primary Care Provider [phone] Reason for Visit * Reason Comments Med Refill Encounter Details Date Type Department Care Team ([facility] st Contact Info) Description 08/24/2023 Refill [facility] MEDICINE [address] [place] [address] Breanna Zamudio ANP [address] [place] [address] Ischemic colitis ([facility]) Social History Tobacco Use Types [...] Description 05/12/2024 2:00 PM EST Office Visit [facility] MEDICINE [address] [place] [address] Breanna Zamudio ANP [address] [place] [address] documented as of this encounter Visit Diagnoses Diagnosis Ischemic colitis (CMS/HCC) documented in this encounter Care Teams Scraper Operator Relationship Specialty Start Date End Date Breanna Zamudio ANP [address] [place] [phone] PCP - General Family Medicine 10/03/19 [facility] [place] 07/31/23 documented as of this encounter
--- OUTSIDE RECORDS SUMMARY | 2024-04-26 14:19 | XMS_ITS | Encounter Summary ---
Author Organization [employer] Address [address] [facility] 7t [place] [address] Care Team Providers Care Developmental Education Instructor Name Role Phone Breanna Zamudio Primary Care Provider [phone] Encounter Details Date Type Department Care Team ([facility] st Contact Info) Description 08/06/2023 Telephone [facility] MEDICINE [address] [place], [place] [phone] Breanna Zamudio ANP [address] [place], [place] [phone] Social History Tobacco Use Types Packs/Day Years [...] Description 05/12/2024 2:00 PM EST Office Visit [facility] MEDICINE [address] [place] [address] Breanna Zamudio ANP [address] [place] [address] documented as of this encounter Visit Diagnoses Not on filedocumented in this encounter Care Teams Developmental Education Instructor Relationship Specialty Start Date End Date Breanna Zamudio ANP [address] [place] [address] PCP - General Family Medicine 10/03/19 [facility] 07/31/23 documented as of this encounter
--- OUTSIDE RECORDS SUMMARY | 2024-04-26 14:19 | XMS_ITS | Encounter Summary ---
Author Organization [employer] Address 75 [facility] 7[place] [address] Care Team Providers Care Superintendent Fish Hatchery Name Role Phone Breanna Zamudio Primary Care Provider [phone] Reason for Visit * Reason Onset Date Comments Durable Medical Equipment 09/08/2022 Encounter Details Date Type Department Care Team (Late st Contact Info) Description 09/08/2022 Telephone [facility] MEDICINE [address] [place] [address] Breanna Zamudio ANP [address] [place] [address] Durable Medical Equipment Social History Tobacco Use [...] machines, please see notes,. Please contact at [phone] Surinamese * Telephone Encounter - RICARDO Caraballo - 09/19/2022 6:26 PM EDT Yes, of course. Thank you. Will place signed RX on your desk. * Telephone Encounter - Madhuri Doe - 09/18/2022 1:56 PM EDT Tc from [facility] with [facility] requesting status on nebulizer. States if script has not been sent to [facility], fax to [facility]. FAX: [phone] Please contact [facility] at [phone] ext [phone] * Telephone Encounter - Rosalinda Rucker - 09/08/2022 3:29 PM EDT Tc from patient requesting a new script for a nebulizer machine. States current one broke. documented in this encounter Plan of Treatment Upcoming Encounters Date Type Department Care Team (Late st Contact Info) Description 05/12/2024 2:00 PM EST Office Visit [facility] MEDICINE [address] [place] [address] Breanna Zamudio ANP [address] [place] [address] documented as of this encounter Visit Diagnoses Not on filedocumented in this encounter Care Teams Superintendent Fish Hatchery Relationship Specialty Start Date End Date Breanna Zamudio ANP [address] [place] [address] PCP - General Family Medicine 10/03/19 [facility] 07/31/23 documented as of this encounter
--- OUTSIDE RECORDS SUMMARY | 2024-04-26 14:19 | XMS_ITS | Encounter Summary ---
Author Organization [employer] Address 75 [facility] 7t [place] [address] Care Team Providers Care Senior Foreman Name Role Phone Breanna Zamudio Primary Care Provider [phone] Encounter Details Date Type Department Care Team [...] Description 05/12/2024 2:00 PM EST Office Visit [facility] MEDICINE [address] [place] [address] Breanna Zamudio, ANP 230 [place] [address] documented as of this encounter Procedures Procedure Name Priority Date/Time Associated Diagnosis Comments BASIC METABOLIC PANEL Routine 04/18/2024 2:33 PM EST documented in this encounter Results * (ABNORMAL) Basic Metabolic Panel (04/18/2024 2:33 PM EST) Sodium 140 135 - 145 mmol/L [facility] Potassium 4.4 3.3 - 5.1 mmol/L [facility] Chloride 107 96 - 108 mmol/L [facility] Carbon Dioxide 26 22 - 29 mmol/L [facility] Anion Gap 11(L) 12 - 20 [facility] Urea Nitrogen (BUN) 12 9 - 16 mg/dL [facility] Creatinine, Serum 0.82 0.5 - 1.4 mg/dL [facility] Estimated Glomerular Filt Rate >60 [facility] Comment:Chronic Kidney Disea se: Estimated GFR < 60 mL/min/1.28b7Bohsho Kidney Disease: Estimated GFR < 15 mL/min/1.73m2 Glucose 198(H) 60 - 115 mg/dL [facility] Calcium 9.3 8.4 - 10.2 mg/dL [facility] 04/18/2024 2:33 PM EST 04/18/2024 2:33 PM EST us Generic External Data Provider LAB BLOOD ORDERAB LES Final Result Performing Organization Address City/State/[facility] Co de Phone Number [facility] [address] [place] [address] [phone] documented in this encounter Visit Diagnoses Not on filedocumented in this encounter Care Teams Senior Foreman Relationship Specialty Start Date End Date Breanna Zamudio ANP [address] [place] [phone] PCP - General Family Medicine 10/03/19 [facility] 07/31/23 documented as of this encounter
--- OUTSIDE RECORDS SUMMARY | 2024-04-26 14:19 | XMS_ITS | Encounter Summary ---
Author Organization [employer] Address 75 [facility] 7t [place] [address] Care Team Providers Care Gaming Cashier Name Role Phone Breanna Zamudio Primary Care Provider [phone] Reason for Visit * Reason Onset Date Comments Appointment Request 01/28/2024 Encounter Details Date Type Department Care Team ([facility] st Contact Info) Description 01/28/2024 Telephone [facility] MEDICINE [address] [place] [address] Breanna Zamudio ANP 230 [place] [address] Appointment Request Social History Tobacco Use Types [...] EST Tc from pt requesting to r/s MARRIAGE THERAPIST RN appt scheduled for 01/29/24, states they are currently on vacation until 02/27/24. Please contact at [phone] documented in this encounter Plan of Treatment Upcoming Encounters Date Type Department Care Team (Late st Contact Info) Description 05/12/2024 2:00 PM EST Office Visit [facility] MEDICINE [address] [place] [phone] Breanna Zamudio ANP [address] [place] [address] documented as of this encounter Visit Diagnoses Not on filedocumented in this encounter Care Teams Gaming Cashier Relationship Specialty Start Date End Date Breanna Zamudio ANP [address] [place] [address] PCP - General Family Medicine 10/03/19 [facility] 07/31/23 documented as of this encounter
--- OUTSIDE RECORDS SUMMARY | 2024-04-26 14:19 | XMS_ITS | Encounter Summary ---
Author Organization [employer] Address 75 [facility] 7t [place] [address] Care Team Providers Care Discharge Coordinator Name Role Phone Breanna Zamudio Primary Care Provider [phone] Encounter Details Date Type Department Care Team (Late st Contact Info) Description 04/26/2024 Orders Only GENERIC EXTERNAL DATA DEPARTMENT Provider, [...] 05/12/2024 2:00 PM EST Office Visit [facility] MEDICINE 230 [place], [place] [phone] Breanna Zamudio ANP 230 [place], [place] [phone] documented as of this encounter Procedures Procedure Name Priority Date/Time Associated Diagnosis Comments GLUCOSE, WHOLE BLOOD Routine 04/26/2024 1:34 PM EST documented in this encounter Results * (ABNORMAL) Glucose, Whole Blood (04/26/2024 1:34 PM EST) Glucose, Whole Blood 175(H) 60 - 115 mg/dL [facility] Comment:METER #: [id number] 5Testing performed in the Endocrinology Department [address] [place], [address], [facility]. 04/26/2024 1:34 PM EST 04/26/2024 1:40 PM EST us Generic External Data Provider LAB BLOOD ORDERAB LES Final Result [facility] [address] [place] [address] [phone] documented in this encounter Visit Diagnoses Not on filedocumented in this encounter Care Teams Discharge Coordinator Relationship Specialty Start Date End Date Breanna Zamudio ANP [address] [place], [place] [phone] PCP - General Family Medicine 10/03/19 [facility] 07/31/23 documented as of this encounter
--- OUTSIDE RECORDS SUMMARY | 2024-04-26 14:19 | XMS_ITS | Encounter Summary ---
Author Organization [employer] Address 75 [facility] 7t [place] [address] Care Team Providers Care Cook Ship Name Role Phone Breanna Zamudio Primary Care Provider [phone] Reason for Visit * Reason Onset Date Comments Appointment Request 04/11/2024 Encounter Details Date Type Department Care Team ([facility] st Contact Info) Description 04/11/2024 Telephone [facility] MEDICINE [address] [place] [address] Breanna Zamudio ANP [address] [place] [address] Appointment Request Social History Tobacco Use Types [...] Tc from pt spouse requesting to r/s BUSINESS COMPUTERS TEACHER visit. Contact pt at [phone](polish) documented in this encounter Plan of Treatment Upcoming Encounters Date Type Department Care Team (Late st Contact Info) Description 05/12/2024 2:00 PM EST Office Visit [facility] MEDICINE [address] [place] [address] Breanna Zamudio ANP [address] [place] [address] documented as of this encounter Visit Diagnoses Not on filedocumented in this encounter Care Teams Cook Ship Relationship Specialty Start Date End Date Breanna Zamudio ANP [address] [place] [phone] PCP - General Family Medicine 10/03/19 [facility] [place] 07/31/23 documented as of this encounter
--- OUTSIDE RECORDS SUMMARY | 2024-04-26 14:19 | XMS_ITS | Encounter Summary ---
Author Organization [employer] Address 75 [facility] 7t [place] [address] Care Team Providers Care Enforcement Safety Officer Name Role Phone Breanna Zamudio Primary Care Provider [phone] Reason for Visit * Reason Onset Date Comments Med Refill 04/11/2024 Encounter Details Date Type Department Care Team (Late st Contact Info) Description 04/11/2024 Telephone [facility] MEDICINE [address] [place] [address] Breanna Zamudio ANP [address] [place] [address] Med Refill Social History Tobacco Use Types [...] immediate release tablet To be sent to: [facility] *pt 04/18/24 to [place] because child is sick . Requesting 120 pill count documented in this encounter Plan of Treatment Upcoming Encounters Date Type Department Care Team (Late st Contact Info) Description 05/12/2024 2:00 PM EST Office Visit [facility] MEDICINE [address] [place] [address] Breanna Zamudio ANP [address] [place] [address] documented as of this encounter Visit Diagnoses Not on filedocumented in this encounter Care Teams Enforcement Safety Officer Relationship Specialty Start Date End Date Breanna Zamudio ANP [address] [place] [address] PCP - General Family Medicine 10/03/19 [facility] 07/31/23 documented as of this encounter
--- OUTSIDE RECORDS SUMMARY | 2024-04-26 14:19 | XMS_ITS | Encounter Summary ---
Author Organization [employer] Address 75 [facility] 7t [place] [address] Care Team Providers Care Sales Administrator Name Role Phone Breanna Zamudio Primary Care Provider [phone] Encounter Details Date Type Department Care Team (Late Contact Info) Description 03/19/2022 Orders Only [facility] [address] [place], [place] [phone] Breanna Zamudio ANP [address] [place] [address] Moderate persistent asthma without complication (Primary Dx) [...] Description 05/12/2024 2:00 PM EST Office Visit [facility] MEDICINE [address] [place] [address] Breanna Zamudio ANP [address] [place] [address] documented as of this encounter Visit Diagnoses Diagnosis Moderate persistent asthma without complication- Primary documented in this encounter Care Teams Sales Administrator Relationship Specialty Start Date End Date Breanna Zamudio ANP [address] [place] [address] PCP - General Family Medicine 10/03/19 [facility] 07/31/23 documented as of this encounter
--- OUTSIDE RECORDS SUMMARY | 2024-04-26 14:19 | XMS_ITS | Data Portability ---
Author Organization [employer] Address [address] [place] [phone] Care Team Providers Care Insulation Board Calender Operator Name Role Phone [facility] PRIMARY [facility]ARE Referring Provider Assessment No assessment recorded. Plan of Treatment Reminders Order Date Submit Date Provider Last Modified By Organization Details Last Modified Time Details Appointments None record ed. Lab None record ed. Referral None record ed. Procedures None record ed. Surgeries None record ed. Imaging None record ed. Medication Orders None record ed. Patient TargetsNo targets recorded. Patient InstructionsNo instructions recorded. Reason for Referral None Reported. Medical Equipment None Reported. Medications Name Sig Start Date Stop Date Status Note LastModified by Organization Details LastModified Time cyclobenzapr ine 10 mg tablet TAKE 1 TABLET BY MOUTH THREE TIMES DAILY NEEDED FOR MUSCLE SPASMS active Not Available Not Available No t Available pioglitazone 15 mg tablet TAKE 1 TABLET BY MOUTH EVERY DAY active Not Available Not Available No t Available clonidine HCl 0.1 mg tablet TAKE 2 TABLETS BY MOUTH AT BEDTIME active Not Available Not Available No t Available hydrochlorot hiazide 50 mg tablet TAKE 1 TABLET BY MOUTH EVERY MORNING active Not Available Not Available No t Available metoprolol succinate ER 200 mg tablet,exten ded release 24 hr TAKE 1 TABLET BY MOUTH EVERY MORNING active Not Available Not Available No t Available verapamil ER (SR) 180 mg tablet,exten ded release TAKE 2 TABLETS BY MOUTH EVERY DAY WITH FOOD active Not Available Not Available No t Available venlafaxine ER 150 mg capsule,exte nded release 24 hr TAKE 1 CAPSULE BY MOUTH EVERY DAY active Not Available Not Available No t Available hydroxyzine HCl 50 mg tablet TAKE 1 TABLET BY MOUTH EVERY 8 HOURS NEEDED ANXIETY active Not Available Not Available No t Available aspirin 81 mg tablet,delay ed release TAKE 1 TABLET BY MOUTH ONCE DAILY active Not Available Not Available No t Available tramadol 50 mg tablet TAKE 1 TABLET BY MOUTH EVERY 8 HOURS NEEDED FOR PAIN active Not Available Not Available No t Available acetaminophe n ER 650 mg tablet,exten ded release TAKE 1 TABLET BY MOUTH EVERY 8 HOURS NEEDED SWALLOW WHOLE WITH WATER DO NOT BREAK, CRUSH, DISSOLVE OR CHEW active Not Available Not Available No t Available levothyroxin e 75 mcg tablet TAKE 1 TABLET BY MOUTH EVERY MORNING active Not Available Not Available No t Available meclizine 25 mg tablet TAKE 1 TABLET BY MOUTH ONCE DAILY NEEDED FOR DIZZINESS active Not Available Not Available No t Available pantoprazole 40 mg tablet,delay ed release TAKE 1 TABLET BY MOUTH EVERY MORNING active Not Available Not Available No t Available trazodone 150 mg tablet TAKE 2 TABLETS (300 MG) BY MOUTH AT BEDTIME active Not Available Not Available No t Available furosemide 20 mg tablet TAKE 1 TABLET BY MOUTH EVERY MORNING active Not Available Not Available No t Available gabapentin 100 mg capsule TAKE 3 CAPSULES BY MOUTH AT BEDTIME active Not Available Not Available No t Available lisinopril 40 mg tablet TAKE 1 TABLET BY MOUTH EVERY MORNING active Not Available Not Available No t Available metformin ER 500 mg tablet,exten ded release 24 hr TAKE 2 TABLETS BY MOUTH TWICE DAILY IN THE MORNING AND EVENING active Not Available Not Available Not Available amoxicillin 875 mg-potassium clavulanate 125 mg tablet TAKE 1 TABLET BY MOUTH TWICE DAILY FOR 10 DAYS active Not Available Not Available No t Available Ventolin HFA 90 mcg/actuatio n aerosol inhaler INHALE 2 PUFFS BY MOUTH EVERY 4 HOURS NEEDED active Not Available Not Available No t Available rosuvastatin 20 mg tablet TAKE 1 TABLET BY MOUTH AT BEDTIME active Not Available Not Available No t Available rosuvastatin 40 mg tablet TAKE 1 TABLET BY MOUTH EVERY DAY active Not Available Not Available No t Available Alcohol Prep Pads USE TWICE DAILY DIRECTED active Not Available Not Available No t Available Flovent HFA 110 mcg/actuatio n aerosol inhaler INHALE 2 PUFFS TWICE DAILY. RINSE MOUTH AFTER USING. active Not Available Not Available No t Available Lantus Solostar U-100 Insulin 100 unit/mL (3 mL) subcutaneous pen INJECT 34 UNITS SUBCUTANEOU SLY EVERY EVENING active Not Available Not Available No t Available cholecalcife rol (vitamin D3) 50 mcg (2,000 unit) tablet TAKE 1 TABLET BY MOUTH EVERY MORNING active Not Available Not Available No t Available Dexilant 60 mg capsule, delayed release TAKE 1 CAPSULE BY MOUTH EVERY DAY active Not Available Not Available No t Available Certavite-An tioxidant 18 mg-400 mcg tablet TAKE 1 TABLET BY MOUTH EVERY DAY WITH FOOD active Not Available Not Available No t Available OneTouch Verio test strips TEST BLOOD SUGAR TWICE DAILY active Not Available Not Available No t Available Jardiance 10 mg tablet TAKE 1 TABLET BY MOUTH EVERY MORNING active Not Available Not Available No t Available Jardiance 25 mg tablet TAKE 1 TABLET BY MOUTH EVERY DAY active Not Available Not Available No t Available Pentips Pen Needle 32 gauge x USE DIRECTED active Not Available Not Available No t Available naloxone 4 mg/actuation nasal spray FOR SUSPECTED OPIOID OVERDOSE. SPRAY 0.1mL IN ONE NOSTRIL. REPEAT IN ALTERNATE NOSTRIL 2-3 MINUTES IF NEEDED. SEEK MEDICAL ATTENTION IMMEDIATELY EVEN IF PATIENT RESPONDS. active Not Available Not Available No t Available Trulance 3 mg tablet TAKE 1 TABLET BY MOUTH EVERY DAY active Not Available Not Available No t Available Ozempic 0.25 mg or 0.5 mg (2 mg/1.5 mL) subcutaneous pen injector INJECT 0.25 MG SUBCUTANEOU SLY ONCE A WEEK FOR 4 WEEKS, THEN INJECT 0.5 MG SUBCUTANEOU SLY ONCE A WEEK THEREAFTER active Not Available Not Available N ot Available OneTouch Delica Plus Lancet 33 gauge TEST BLOOD SUGAR TWICE DAILY active Not Available Not Available No t Available Trulicity 4.5 mg/0.5 mL subcutaneous pen injector INJECT ONE PEN (= 4.5 MG) SUBCUTANEOU SLY ONCE A WEEK DIRECTED active Not Available Not Available No t Available Vitals Date Recorded Heart rate Body temperature Oxygen saturation Oxygen saturation in Arterial blood by Pulse oximetry Respiratory rate Body temperature Oxygen saturation Oxygen saturation in Arterial blood by Pulse oximetry Respiratory rate Heart rate Systolic blood pressure Diastolic blood pressure Systolic blood pressure Diastolic blood pressure Provider Name and Address Organization Details Last Updated DateTime 2 74 /min 99.2 [degF] 98 % 98 % 18 /min 99.2 [degF] 98 % 98 % 18 /min 74 /min 181 mm[Hg] 84 mm[Hg] 181 mm[Hg] 84 mm[Hg] Not Available Thismoment - production 2 22:38:03 Social History None recorded. Functional Status None recorded. Mental Status None recorded. Family History Nothing Reported. Medical History No medical history recorded. Gynecological HistoryNo gynecological history recorded. Obstetrics History GPAL:G 0 P 0 0 0 0 Past Encounters Encounter ID Performer Location Encounter Start Date Encounter Closed Date Diagnosis/Indication Diagnosis SNOMED-CT Code Diagnosis ICD10 Code Diagnosis Note [id number] Nancy Garcia MD [address] [phone] 01/11/2022 21:15:51 01/14/2022 13:03:57 Diverticulitis 909308386 K57.92 Pt recently diagnosed with diverticul itis discharged from ED on abx and oxycodone/ APAP (unable to fill given also on tramadol) p/w worsening pain (increased beatrice suprapubic area), ongoing diarrhea, and nausea. Discussed need to return to ED for IV pain control and possible repeat in imaging given localizati on of pain could indicate abscess. Pt in agreement. I have reviewed and agree with the assessment and plan as documented by the concrete grinder operator. I provided real time medical direction for this encounter and was immediatel y available to provide additional phone based assistance as needed. Health Concerns Section Related Observation LastModified by Organization Detai ls LastModified Time None Recorded Concern Status LastModified by Organization Details LastModified Time None Recorded Advance Directives Directive None Recorded Payers Encounter Date Sequence Insurance Name Policy Number Policy Cramer Covered Member ID Cramer Member ID Guarantor Name 01/11/2022 1 [facility] - DOS PRIOR TO 2022 - DUAL ELIGIBLE (MEDICARE REPLACEMENT/ADV ANTAGE - HMO) Lois Dalton [id number] Lois Dalton Notes Date Note Type Note Provider Name and Address Organization Details Recorded Time 01/11/2022 text/html [facility] Nursing Asse ssment: Chief Complaints: Abdominal Pain PMH: Hypertension, COPD/Asthma, Diabetes Allergies: No Known Comments: Family of member request [facility] visit for eval abdominal pain x 5 days eval at ED dx with diverticulitis taking antibiotics cont with pain deny fever/chills refuse ED ....................... ....................... ....................... ....................... ....................... ....................... ... Lease Administration Analyst Note: Community Lease Administration Analyst Shelly Ma SC6 dispatched to a yellow for a 66 yof w/ abd pain. Upon arrival, the pt was sitting up in bed, WILHELM X4, holding her abdomen and grimacing in pain. She stated that she went to the ED recently for abd pain and was diagnosed with diverticulitis, w/ imaging. Her electrotype servicer recommended that she go to the ED. She was prescribed prednisone, which she stated her PCP recommended she not take due to her diabetes. She was prescribed oxycodone, which her pharmacy would not fill due to her tramadol px. She was also prescribed antibiotics, with which she was compliant. She stated she had been taking acetaminophen as well with no relief. She stated continuing diarrhea, but less of it overall. She stated increasing bloating/swelling as well, especially in RLQ and LLQ. [facility] consulted; pt was advised to return to ED for pain mgmt, to ensure she did not have any abscesses, and to obtain appropriate px for swelling and pain mgmt. Red flags discussed. Partner on scene stated he could drive pt to ED, and requested not to call 911. ....................... ....................... ....................... ....................... ....................... ....................... ... Disposition: Fulfilled Nancy Garcia MD [address] [facility],[address], [place], [phone], [employer] 01/13/2022 09:59:42 OBGyn Episode No OBEpisode recorded.
--- OUTSIDE RECORDS SUMMARY | 2024-04-26 14:19 | XMS_ITS | Clinical Summary ---
Author Organization [employer] Address [address] [facility] [address] [place] [address] Care Team Providers Care Yoghurt Maker Name Role Phone [place]ia Cifuentes Primary Care Provider [phone] Allergies No known active allergies Medications Ventolin HFA 108 (90 Base) MCG/ACT inhaler Inhale 1 puff every 4 (four) hours if needed for wheezing. Active Alcohol Swabs (SM Alcohol Prep) 70 % pads USE TWICE DAILY DIRECTED Active Blood Glucose Monitoring Suppl (Fixyauch Verio Flex System) w/Device kit TEST BLOOD [...] 34 UNITS SUBCUTANEOUSLY EVERY EVENING Active Lancets (Fixyauch Delica Plus [id number]) misc TEST BLOOD SUGAR TWICE DAILY Active [...] EVERY MORNING 90 tablet 3 024 Active Ozempic, 0.25 or 0.5 MG/DOSE, 2 MG/3ML solution pen-injector INJECT 0.5 MG SUBCUTANEOUSLY ONCE A WEEK 024 Active Continuous Glucose Ripsawyer (FreeStyle Manuelito 2 Sunflower) device Use as directed 024 Active Continuous Glucose Sensor (FreeStyle Manuelito 2 Sensor) [facility] Every 2 weeks to monitor BG Active Cyanocobalamin (Vitamin B-12) 1000 MCG sublingual tablet DISSOLVE 1 TABLET BY MOUTH DAILY 024 Active Eliquis 5 MG tabletIndicatio ns:Acute deep vein thrombosis (DVT) of proximal vein of lower extremity, unspecified laterality (CMS/HCC),Multi ple subsegmental pulmonary emboli without acute cor pulmonale (CMS/HCC) Take 1 tablet (5 mg) by mouth 2 times daily. 60 tablet 2 024 Active lisinopril 40 MG tabletIndicatio ns:Essential hypertension Take 1 tablet (40 mg) by mouth Once per day. 90 tablet 3 024 Active acetaminophen (Tylenol 8 Hour) 650 MG ER tabletIndicatio ns:Ischemic colitis (CMS/HCC) TAKE 1 TABLET BY MOUTH EVERY 8 HOURS NEEDED SWALLOW WHOLE WITH WATER DO NOT BREAK, CRUSH, DISSOLVE OR CHEW 90 tablet 024 Active insulin pen needle (Pentips) 32G x 4 mm miscIndications :Hyperlipidemia associated with type 2 diabetes mellitus (CMS/HCC) (CMS/[facility]) Use as instructed 100 each 5 Active levothyroxine (Synthroid, Levoxyl) 75 MCG tabletIndicatio ns:Hypothyroidi sm, unspecified type Take 1 tablet (75 mcg) by mouth before breakfast. 90 tablet 1 024 Active glucose (BD Glucose) 5 g chewable tabletIndicatio ns:Hyperlipidem ia associated with type 2 diabetes mellitus (CMS/HCC) ([facility]) Chew 3 tablets (15 g) if needed for low blood sugar. 50 tablet 12 024 2024 Active venlafaxine XR (Effexor XR) 150 MG 24 hr capsuleIndicati ons:Mixed anxiety and depressive disorder TAKE 1 CAPSULE BY MOUTH EVERY DAY 30 capsule 5 024 Active fluticasone (Flonase) 50 MCG/ACT nasal sprayIndication [...] 13, 2024. 120 tablet 025 2024 Active albuterol 0.63 MG/3ML nebulizer solutionIndicat ions:Moderate persistent asthma without complication INHALE 1 AMPULE USING A NEBULIZER EVERY 4 TO 6 HOURS NEEDED FOR WHEEZING OR SHORTNESS OF BREATH FOR ASTHMA 75 mL 2 025 Active albuterol 0.63 MG/3ML nebulizer solutionIndicat ions:Moderate persistent asthma without complication INHALE 1 AMPULE USING A NEBULIZER EVERY 4 TO 6 HOURS NEEDED FOR WHEEZING OR SHORTNESS OF BREATH FOR ASTHMA 75 mL 2 024 2024 Discontinued traZODone (Desyrel) 150 MG tabletIndicatio ns:Insomnia disorder [...] edema. 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 Neuropathic pain 07/04/2022 Hyperparathyroidism 11/22/2021 Osteopenia 11/22/2021 Gastroesophageal reflux disease without esophagi tis 01/26/2015 Hyperlipidemia associated wi th type 2 diabetes mellitus ([facility]/HCC) 01/26/2015 Insomnia disorder with non-s leep disorder [...] Encounters Date Type Department Care Team Description 04/26/2024 Orders Only GENERIC EXTERNAL DATA DEPARTMENT Provider, Generic External Data 04/18/2024 Orders Only GENERIC EXTERNAL DATA DEPARTMENT Provider, Generic External Data 04/18/2024 Refill [facility] [address] [place] [address] Albania Cifuentes ANP Moderate persistent asthma without complication 04/11/2024 Refill [facility] [address] [place] [address] Sis Coppola, AIDA Ischemic colitis ([facility]) 04/11/2024 Telephone [facility] [address] [place] [address] Albania Cifuentes ANP Med Refill 04/11/2024 Telephone [facility] [address] [place], [place] [phone] Albania Cifuentes ANP Appointment Request 04/09/2024 Refill [facility] [address] [place] [address] Marce Gross MD Insomnia disorder with non-sleep disorder mental comorbidity 2024 Telephone [facility] [address] [place] [address] Sis Coppola, RN 03/18/2024 Telephone [facility] [address] [place] [address] Sis Coppola, RN 03/18/2024 Telephone [facility] [address] [place] [address] Albania Cifuentes ANP Med Refill 03/15/2024 Refill [facility] [address] [place] [address] Sis Coppola, AIDA Ischemic colitis ([facility]) 03/15/2024 Telephone [facility] [address] [place] [phone] Albania Cifuentes ANP Med Refill 03/12/2024 Refill [facility] [address] [place] [phone] Albania Cifuentes ANP Hot flashes 02/25/2024 Telephone [facility] [address] [place] [phone] Albania Cifuentes ANP No Show 02/18/2024 Orders Only [facility] [address] [place] [phone] Albania Cifuentes ANP Ischemic colitis ([facility]) 02/15/2024 Refill [facility] [address] [place] [phone] Albania Cifuentes ANP Ischemic colitis ([facility]) 02/09/2024 Refill [facility] [address] [place] [address] Albania Cifuentes ANP 01/28/2024 Telephone [facility] MED [facility] P[facility] [address] [place] [address] Sis Coppola, AIDA 01/28/2024 Telephone [facility] [address] [place] [address] Albania Cifuentes ANP Appointment Request from Last 3 Months Immunizations Name Administration [...] 05/12/2024 2:00 PM EST Office Visit [facility] [address] [place] [address] Albania Cifuentes ANP [address] [place] [address] Health Maintenance Due Date Last Done Comments [...] WHOLE BLOOD Routine 04/26/2024 1:34 PM EST BASIC METABOLIC PANEL Routine 04/18/2024 2:33 PM EST NM HEART PERFUSION SPECT STRESS AND REST Routine 03/14/2024 9:38 AM EST POCT GLYCATED HEMOGLOBIN, TOTAL Routine 11/26/2023 2:55 PM EDT Hyperlipidemia associated with type 2 diabetes mellitus (CMS/HCC) (CMS/[facility]) HM COLONOSCOPY Routine 12/23/2022 ALBUMIN, RANDOM URINE W/CREATININE Routine 08/15/2022 1:45 PM EDT DIRECT LDL Routine 08/15/2022 12:35 PM EDT BI MAMMOGRAM SCREENING BILATERAL Routine 12/07/2018 11:01 AM EDT from Last 3 Months or Most Recently Relevant to Health Maintenance Results * (ABNORMAL) Glucose, Whole Blood (04/26/2024 1:34 PM EST) Glucose, Whole Blood 175(H) 60 - 115 mg/dL [facility] Comment:METER #: [id number] 5Testing performed in the Endocrinology Department [address] , [address], [place]. 04/26/2024 1:34 PM EST 04/26/2024 1:40 PM EST us Generic External Data Provider LAB BLOOD ORDERAB LES Final Result Performing Organization Address [facility] Co de Phone Number [facility] [address] [place] [address] [phone] * (ABNORMAL) Basic Metabolic Panel (04/18/2024 2:33 PM EST) Sodium 140 135 - 145 mmol/L [facility] Potassium 4.4 3.3 - 5.1 mmol/L [facility] Chloride 107 96 - 108 mmol/L [facility] Carbon Dioxide 26 22 - 29 mmol/L [facility] Anion Gap 11(L) 12 - 20 [facility] Urea Nitrogen (BUN) 12 9 - 16 mg/dL [facility] Creatinine, Serum 0.82 0.5 - 1.4 mg/dL [facility] Estimated Glomerular Filt Rate >60 [facility] Comment:Chronic Kidney Disea se: Estimated GFR < 60 mL/min/[id number] Kidney Disease: Estimated GFR < 15 mL/min/1.73m2 Glucose 198(H) 60 - 115 mg/dL [facility] Calcium 9.3 8.4 - 10.2 mg/dL [facility] 04/18/2024 2:33 PM EST 04/18/2024 2:33 PM EST us Generic External Data Provider LAB BLOOD ORDERAB LES Final Result Performing Organization Address [facility] Co de Phone Number [facility] [address] [place] [address] [phone] * NM heart perfusion SPECT stress and rest (03/14/2024 9:38 AM EST) Anatomical Region Laterality Modality Body Nuclear Medicine 03/14/2024 9:38 AM EST Narrative 03/17/2024 4:33 PM EST ? [facility] ?[address] ?[place] [address] ?Nuclear Medicine Report ? Signed ? Patient: Sha,Lois ?MR#: [id number] ?? 1 ? : 1955 ?Acct:[id number] ? Age/Sex: 68 / F ?ADM Date: 12/30/24 ? Loc: HO.CARD ? Attending Dr: Justen Padilla MD ? Ordering Physician: Justen Padilla MD ?? Date of Service: 03/14/24 ?? Procedure(s): NM dinesh perf SPECT rest ?? str ?? Accession Number(s): [id number] ? cc: ALB[place] CIFUENTES NP; Justen Padilla [...] DD/ 0938 ? TD/TT: 03/17/24 1500 ? It Security Manager: ? Procedure Note Donotuseinterpreter, Image - 03/17/[address] [address] Nuclear Medicine Report Signed Patient: Arnav Dalton#: [id number] 1 : 5Acct:[id number] Age/Sex: 68 / FADM Date: 03/14/24 Loc: [facility] Attending Dr: Justen Padilla MD Ordering Physician: Justen Padilla MD Date of Service: 03/14/24 Procedure(s): NM dinesh perf SPECT rest str Accession Number(s): [id number] cc: ALB[place]IA CIFUENTES MASH FILTER CLOTH CHANGER; Justen Padilla MD Lexiscan Myocardial perfusion study [...] Justen Padilla MD 03/17/2024 04:31 PM EST RP Dictated By: Justen Padilla MD Signed By: <Electronically signed by Justen Padilla MD in OV> 03/17/24 1631 DD/ 0938 TD/TT: 03/17/24 1500 It Security Manager: [facility] External Provider IMG NM PROCEDURES Edited Result - Final * (ABNORMAL) POCT HGB A1C (11/26/2023 2:55 PM EDT) Pathologist [facility] Hemoglobin A1C 8.0(A) 4.0 - 6.0 % QC Media Lot # [id number] Lot# Expiration Date Blood 11/26/2023 2:55 PM EDT us Albania Cifuentes ANP POINT OF CARE TEST ENTER/EDIT OR DERABLES Final Result * (ABNORMAL) Colonoscopy (12/23/2022) Colonoscopy Abnormal( A) Normal [facility] Comment:tubular adenoma 12/23/2022 Yuni Jeffery MD HEALTH MAINTENANCE Final Result [facility] [address] [place] [phone] * Albumin, Random Urine W/Creatinine (08/15/2022 1:45 PM EDT) Pathologist [facility] Creatinine, Urine 50.16 mg/dL [facility] Microalbumin Urine 12.0 mg/L [facility] Microalbum Creatinine Ratio Ur 23.9 ug/mg cr [facility] Comment:Albumin/Creatinine R atio Reference Ranges: Normal: < 30 ug/mg creatinine Microalbuminuria: 30 - 300 ug/mg creatinineClinical Albuminuria: > 300 ug/mg creatinine 08/15/2022 1:45 PM EDT 08/15/2022 2:19 PM EDT [facility] External Provider LAB URI NE ORDERABLES Final Result Performing Organization Address [facility]/ZIP Co de Phone Number [facility] [address] [place] [phone] * Direct LDL (08/15/2022 12:35 PM EDT) LDL Direct 70 <100 mg/dL [facility] Comment:Greatly elevated Tri glycerides values (>1200 mg/dL)interfere with the dLDL assay. As no Triglyceridestesting was ordered, interpret results with caution.Desirable range <100 mg/dL for primary prevention;<70 mg/dL for patients with CHD or diabetic patientswith > or = 2 CHD risk factors.THIS TEST WAS PERFORMED AT:[facility] [place] [phone] JAIME MD 08/15/2022 12:3 5 PM EDT 08/15/2022 12:36 PM EDT [facility] External Provider LAB BLO OD ORDERABLES Final Result Performing Organization Address [facility]/ZIP Co de Phone Number [facility] [address] [place] [phone] * 3D DIGITAL TONY SCR MAMMO [...] DIGITAL TONY SCR MAMMO 1 Roger Bruno ELEVATOR TENDER IMG BI PROCEDURES Final Result from Last 3 Months or Most Recently Relevant to Health Maintenance Insurance [facility] Care Teams Yoghurt Maker Relationship Specialty Start Date End Date Albania Cifuentes ANP [address] [place] [phone] PCP - General Family Medicine 10/03/19 [facility] 07/31/23
--- OUTSIDE RECORDS SUMMARY | 2024-04-26 14:19 | XMS_ITS | Encounter Summary ---
Author Organization [employer] Address [address] [facility] [address] [place] [address] Care Team Providers Care Scientific Research Manager Name Role Phone Breanna Zamudio Primary Care Provider [phone] Encounter Details Date Type Department Care Team ([facility] st Contact Info) Description 08/31/2023 Telephone [facility] [address] [place], [place] [phone] Breanna Zamudio ANP [address] [place], [place] [phone] Social History Tobacco Use Types Packs/Day Years [...] Description 05/12/2024 2:00 PM EST Office Visit [facility] [address] [place] [phone] Breanna Zamudio ANP [address] [place] [address] documented as of this encounter Visit Diagnoses Not on filedocumented in this encounter Care Teams Scientific Research Manager Relationship Specialty Start Date End Date Breanna Zamudio ANP [address] [place] [address] [phone] PCP - General Family Medicine 10/03/19 [facility] 07/31/23 documented as of this encounter
--- OUTSIDE RECORDS SUMMARY | 2024-04-26 14:19 | XMS_ITS | Data Portability ---
Author Organization [facility], Main Office Address [address] [place] [address] Care Team Providers Care Senior Media Buyer Name Role Phone SANDRITA BEARDEN 1ST FLOOR OTHER [place] [employer] Primary Care Provider Assessment Encounter Date Assessment Date Assessment LastModified by Organization Details LastModified Time 08/04/2018 08/04/2018 Hgb 11.5, Hct 34.7 in hospital [facility] Not available 08/04/2018 08:51:23 Plan of Treatment Reminders Order Date Submit Date Provider Last Modified By Organization Details Last Modified Time Details Appointments None record ed. Lab None record ed. Referral None record ed. Procedures None record ed. Surgeries None record ed. Imaging None record ed. Medication Orders None record ed. Patient TargetsNo targets recorded. Patient Instructions Encounter Date Encounter Id Patient Instructions Last Modified By Organization Details Last Modified Time 08/06/2018 [id number] Also, for PCP to evaluate whether or not patient needs to continue estradiol 1 mg daily as well as possible d/c of one of her diuretics Patient cleared for discharge with VNA services to include PT/OT. myoss Not available 08/06/2018 11:51:49 Reason for Referral None Reported. Problems Name Problem SNOMED Code Status Onset Date Resolution Date Notes Provider Name and Address Organization Details Recorded Time Total replacement of right knee joint Active 2018 SARAH MATIAS [address] , [address], [place], [address], [facility] 9 08:19:48 Asthma 239415235 Active 2018 SARAH MATIAS [address], [address], [place], [address], [facility] 9 08:23:00 Gastroesophage al reflux disease without esophagitis 948162474 Active 2018 SARAH MATIAS [address], [address], [place], [address], [facility] 9 08:23:06 Essential hypertension 18713604 Active 2018 SARAH MATIAS [address], [address], [place], [address], [facility] 9 08:23:16 Hypothyroidism 78203471 Active 2018 SARAH MATIAS [address], [address], [place], [address], [facility] 9 08:23:25 Type 2 diabetes mellitus 79994643 Active 2018 SARAH MATIAS [address], [address], [place], [address], [facility] 9 08:23:34 Anxiety 17219365 Active 2018 SARAH MATIAS [address], [place], [address], [facility] 9 08:24:11 Hormone therapy Active [address], [place], [address], [facility] 9 08:24:30 Chronic constipation 279048891 Active [address], [place], [address], [facility] 9 08:25:50 Acute urinary tract infection 608935025 Active 2018 SARAH MATIAS [address], [address], [place], [address], [facility] 9 08:26:59 Hypercholester olemia 53824956 Active 2018 SARAH MATIAS [address], [address], [place], [address], [facility] 9 08:28:38 Depressive disorder 01072179 Active 2018 HILARIA SARAH SOMMER [address], [address], [place], [address], [facility] 9 08:42:14 Falls 308079654 Active 2018 HILARIA SARAH SOMMER [address], [address], [place], [address], [facility] 9 09:41:31 Gastroesophage al reflux disease 937764101 Active 2018 Eliza Garza MD [address], [address], [place], [address], [facility] 9 11:39:19 Problem Notes None recorded. Medical Equipment None Reported. Allergies No known drug allergies Medications Name Sig Start Date Stop Date Status Note LastModified by Organization Details LastModified Time Dilaudid 2 mg tablet Take 3 tablets every 8 hours by oral route as needed, for mod to severe pain. 024 active Not Available Not Available Not Avai lable Vitals Date Recorded Body temperature Heart rate Respiratory rate Oxygen saturation Oxygen saturation in Arterial blood by Pulse oximetry Systolic blood pressure Diastolic blood pressure Provider Name and Address Organization Details Last Updated DateTime 9 97.7 [degF] 84 /min 20 /min 96 % 96 % 156 mm[Hg] 70 mm[Hg] SARAH MATIAS [address], [address], [place], [address], [facility] 9 08:17:26 Date Recorded Systolic blood pressure Diastolic blood pressure Provider Name and Address Organization Details Last Updated DateTime 08/06/2018 156 mm[Hg] 70 mm[Hg] Eliza Garza MD [address], [address], [place], [address], [facility] 08/06/2018 11:18:46 Social History Question Answer Notes LastModified by Organizat ion Details LastModified Time Tobacco Smoking Status Never Smoker Not Available [facility] 01/10/2020 03:13:23 Do You Have An Advance Directive? Yes FULL CODE- Use Dialysis, Nutrtition And Hydration [id number] Information not available 01/10/2020 What Is Your Level Of Alcohol Consumption? None [id number] Information not available 01/10/2020 How Much Tobacco Do You Chew? None [id number] Information not available 01/10/2020 Do You Have A Medical Power Of Robotic Maintenance Technician? Yes HCP On File [id number] Information not available 01/10/2020 What Was The Date Of Your Most Recent Tobacco Screening? 08/04/2018 [id number] Information not available 01/10/2020 Sex: Unknown Functional Status None recorded. Mental Status None recorded. Family History Nothing Reported. Medical History No medical history recorded. Gynecological HistoryNo gynecological history recorded. Obstetrics History GPAL:G 0 P 0 0 0 0 Immunizations Vaccine Type Date Status Note Provider Nam e and Address Organization Details Recorded Time Hep B, unspecified formulation 7 completed Dannaromi Ocampo [facility] 07/21/2023 15:47:49 Hep B, unspecified formulation 8 completed Danna Terrence [facility] 07/21/2023 15:47:57 Tdap 7 completed Danna Terrence [facility] 07/21/2023 15:48:12 Td(adult) unspecified formulation 7 completed Danna Terrence [facility] 07/21/2023 15:48:25 Pneumococcal conjugate PCV20, polysaccharide [id number] conjugate, adjuvant, PF 3 completed Danna Ocampo [facility] 07/21/2023 15:53:08 influenza, unspecified formulation 3 completed Danna Ocampo [facility] 07/21/2023 16:00:43 influenza, unspecified formulation 3 completed Danna Ocampo [facility] 07/21/2023 16:01:16 Hep A, unspecified formulation 7 completed Danna Ocampo [facility] 07/21/2023 16:08:25 Hep A, unspecified formulation 8 completed Danna Ocampo [facility] 07/21/2023 16:08:36 SARS-COV-2 (COVID-19) vaccine, UNSPECIFIED 1 completed Danna Ocampo [facility] 07/21/2023 16:11:09 SARS-COV-2 (COVID-19) vaccine, UNSPECIFIED 1 completed Danna [facility] 07/21/2023 16:11:19 SARS-COV-2 (COVID-19) vaccine, UNSPECIFIED 2 completed Danna [facility] 07/21/2023 16:11:32 SARS-COV-2 (COVID-19) vaccine, UNSPECIFIED 3 completed Danna [facility] 07/21/2023 16:12:34 zoster, unspecified formulation [facility]:12:52 Past Encounters Encounter ID Performer Location Encounter Start Date Encounter Closed Date Diagnosis/Indication Diagnosis SNOMED-CT Code Diagnosis ICD10 Code Diagnosis Note [id number] [address] MATIAS [address] [address] 08/04/2018 08:13:08 08/06/2018 15:43:41 Replacement of total knee joint 548449204 Z96.651 PT/OT eval and treat for gait training and strengthen ingROM 0-120WBATl imit stair climbingno showersuse a walkerkeep aquacel dressing clean and intactoxyc odone 10 mg q 4 hrs prnultram 50 mg q 6 hrs prntylenol 650 mg q 6 hrs scheduledA SA 325 mg bid x 15 dayspost op appt with ortho on 08/11/18 Acute urin gael tract infection 975994106 N30.00 keflex 500 mg bid x 5 daysmonito r for resolution Asthma 448228659 J45.99 8 albuterol hfa 1-2 puffs q 4 hrs prnqvar 40 mcg 2 puffs bidmonitor for respirator y symptoms Gastroesop hageal reflux disease without esophagitis 821460552 K21.9 dexlansopr azole 60 mg qdmonitor for symptoms Type 2 radha betes mellitus 99197428 E11.9 trulicity 1.5 mg q weekglybur lima 1.25 mg qdlantus 28 units q pmmetformi n er 500 mg q am and 1000 mg q pmmonitor for s/s of hypo/hyper glycemia Essential hypertension 20988706 I10 lasix 20 mg qdHCTZ 50 mg qdlisinopr il 40 mg qdmetoprol ol succinate 200 mg qdverapami l er 360 mg qdmonitor b/p and pulse Hypothyroidism 87974899 E03.8 levothyrox ine 75 mcg qdmonitor TSH Hormone re placement therapy 400011927 Z79.890 estradiol 1 mg qdmonitor Anxiety 45330299 F41.1 atarax 50 mg q 6 hrs prnativan 1 mg bid prndiscuss ed risk vs benefit of ativan with patientmon itor for anxiety Depressive disorder 3540 8777 F32.89 effexor 75 mg bidtrazodo ne 50 mg q hsdiscusse d risk vs benefit of effexor and trazodone with patientmon itor moodpsych eval and treat prn Chronic constipation 236 767365 K59.09 linaclotid e 72 mg qdmonitor constipati on with opioid use Hypercholesterolemia 136 68361 E78.2 crestor 20 mg q hsmonitor labs [place] 813818877 R29.6 PT/OT eval and treatmonit or for safetyenco urage walker use [id number] Eliza Garza MD [address] [address] 08/06/2018 11:17:07 08/11/2018 09:54:55 Asthma 653793514 J45.30 Qvar 1 puff bidprovent il HFA 2 puffs q4h prn Chronic constipation 236 544029 K59.09 good bowel regimenLin zess 72 mcg daily Depressive disorder 3548 7907 F32.89 trazodone 50 mg at hsvenlafax ine ER 75 mg dailyfu psych prn Hypothyroidism 75206884 E03.8 levothyrox ine 75 mcg dailyfu as outpatient Acute urin gael tract infection 832175029 N30.00 finish course cephalexin 500 mg bidencoura ge good hydrationf u prn Type 2 radha betes mellitus 07232691 E11.9 metformin ER 1000 mg in evening and ER 500 mg in morninggly buride 1.25 mg dailyLantu s 28U dailyTruli city 1.5mg once a week continue to monitor with PCP when outpatient Essential hypertension 86874149 I10 HCTZ 50 mg dailyfuros emide 20 mg dailymetop rolol XL 200 mg dailyverap armen 360 mg dailylisin opril 40 mg dailyfor PCP to evaluate as outpatient if 2 different diuretics are needed - may be able to d/c either HCTZ or furosemide History of total knee arthroplasty 8766586583 105 Z96.651 continue PT/OTAPAP prnASA 325 mg bidoxycodo ne 10 mg q4h prntramado l 50 mg q8h prn Anxiety 38424974 F41.1 lorazepam 1 mg bid prnfu PCP Gastroesop hageal reflux disease 849104029 K21.9 Dexilant 60 mg dailyfu as outpatient Health Concerns Section Related Observation LastModified by Organization Detai ls LastModified Time None Recorded Concern Status LastModified by Organization Details LastModified Time None Recorded Advance Directives Directive Y: FULL CODE- use dialysis, nutrtition and hydration Payers Encounter Date Sequence Insurance Name Policy Number Policy Cramer Covered Member ID Cramer Member ID Guarantor Name 08/04/[address] [facility] - DOS PRIOR TO 2022 - DUAL ELIGIBLE (MEDICARE REPLACEMENT/AD VANTAGE - HMO) Lois Dalton [id number] Lois Dalton 08/04/2018 2 [place] Lois Dalton [id number] Lois Dalton 08/06/[address] [facility] - DOS PRIOR TO 2022 - DUAL ELIGIBLE (MEDICARE REPLACEMENT/AD VANTAGE - HMO) Lois Dalton [id number] Lois Dalton 08/06/2018 2 [place] [facility] Lois Dalton [id number] Lois Dalton Notes Date Note Type Note Provider Name and Address Organization Details Recorded Time 9 text/html A 63 year old female being seen for a initial intake note. Patient had an elective right knee replacement at [facility] on 07/26/18. She went home with vna despite attempts to get her to go to rehab. She attempted to get up out of her chair and walker was not locked causing her to fall. She then was able to ambulate for several days then ran out of pain medication. She went to [facility] er to get pain under control. X-ray and ultrasound were negative. While in the hospital she complained of burning on urination and frequency. A urine sample was sent which was positive for a UTI. She was sent here for some short term rehab. Medical history of constipation, anxiety/depression, HTN, DM, GERD, asthma, hypercholesterolemia and hormone replacement. SARAH MATIAS [address], [place], [address], [facility] 08/04/2018 09:42:29 9 text/html 63 year old female admitted to [facility] 08/03/18 for rehab after TKR 07/26/18. Patient had been discharged home 07/29/18 with VNA services after TKR and fell when attempted to get up out of chair when walker was not locked causing a fall. She was able to ambulate for several days then ran out of pain medication. She went to [facility] ER to get pain under control. X-ray and ultrasound were negative. While in the hospital she complained of burning on urination and frequency. A urine sample was sent which was positive for a UTI. She was sent here for some short term rehab. Medical history of constipation, anxiety/depression, HTN, DM, GERD, asthma, hypercholesterolemia and hormone replacement. Patient has done with PT/OT here at [facility] and is now ready for discharge with VNA services at home. Advance directives: full code Eliza Garza MD [address] [place] [address], [address], [place], [address], [facility] 08/06/2018 11:52:07 OBGyn Episode No OBEpisode recorded.
--- OUTSIDE RECORDS SUMMARY | 2024-04-26 14:19 | XMS_ITS | Encounter Summary ---
Author Organization [employer] Address [address] [facility] [address] [place] [address] Care Team Providers Care Community Association Manager Name Role Phone Breanna Zamudio Primary Care Provider [phone] Reason for Visit * Reason Comments Med Refill Encounter Details Date Type Department Care Team (Late st Contact Info) Description 04/07/2022 Refill [facility] MED & PEDS [address] [place], [place] [phone] Breanna Zamudio ANP [address] [place] [address] Pain in unspecified joint Social History Tobacco [...] Department Care Team (Late Contact Info) Description 05/12/2024 2:00 PM EST Office Visit [facility] MEDICINE [address] [place] [address] Breanna Zamudio ANP [address] [place] [address] documented as of this encounter Visit Diagnoses Diagnosis Pain in unspecified joint documented in this encounter Care Teams Community Association Manager Relationship Specialty Start Date End Date Breanna Zamudio ANP [address] [facility] [place] [address] PCP - General Family Medicine 10/03/19 [facility] 07/31/23 documented as of this encounter
--- OUTSIDE RECORDS SUMMARY | 2024-04-26 14:19 | XMS_ITS | Encounter Summary ---
Author Organization [employer] Address [address] [place] [address] [place] [address] Care Team Providers Care Cattery Operator Name Role Phone Breanna Zamudio Primary Care Provider [phone] Reason for Visit * Reason Comments Med Refill Encounter Details Date Type Department Care Team (Late Contact Info) Description 11/21/[address] [facility] MEDICINE [address] [place] [address] Breanna Zamudio ANP [address] [place] [address] Pain in unspecified joint Social History Tobacco [...] 2:00 PM EST Office Visit [facility] MEDICINE [address] [place] [address] Breanna Zamudio ANP [address] [place] [address] documented as of this encounter Visit Diagnoses Diagnosis Pain in unspecified joint documented in this encounter Care Teams Cattery Operator Relationship Specialty Start Date End Date Breanna Zamudio ANP [address] [place] [address] PCP - General Family Medicine 10/03/19 [facility] 07/31/23 documented as of this encounter
--- OUTSIDE RECORDS SUMMARY | 2024-04-26 14:19 | XMS_ITS | Encounter Summary ---
Author Organization [employer] Address [address] [place] [address] [place] [address] Care Team Providers Care Paint Pourer Name Role Phone Breanna Zamudio Primary Care Provider [phone] Reason for Visit * Reason Comments Med Refill Encounter Details Date Type Department Care Team (Late Contact Info) Description 12/02/2022 Refill [facility] MEDICINE [address] [place] [address] Breanna Zamudio ANP [address] [place] [address] Pain in unspecified joint Social History Tobacco [...] Description 05/12/2024 2:00 PM EST Office Visit [facility] MEDICINE [address] [place] [address] Breanna Zamudio ANP [address] [place] [address] documented as of this encounter Visit Diagnoses Diagnosis Pain in unspecified joint documented in this encounter Care Teams Paint Pourer Relationship Specialty Start Date End Date Breanna Zamudio ANP [address] [place] [address] PCP - General Family Medicine 10/03/19 [facility] 07/31/23 documented as of this encounter
--- OUTSIDE RECORDS SUMMARY | 2024-04-26 14:19 | XMS_ITS | Encounter Summary ---
Author Organization [employer] Address [address] [facility] 7t [place] [address] Care Team Providers Care Medical Collector Name Role Phone Breanna Zamudio Primary Care Provider [phone] Reason for Visit * Reason Onset Date Comments Med Refill 04/11/2024 Encounter Details Date Type Department Care Team ([facility] st Contact Info) Description 04/11/2024 Refill [facility] CHC MED & PEDS [address] [place] [address] Sis Coppola RN [address] [place] [address] Ischemic colitis ([facility]) Social History Tobacco Use Types [...] pt regarding message below. Called via BLS ID#[id number]. No answer. Lvm for pt to c/b and schedule CLOUD ENGINEER appt. documented in this encounter Plan of Treatment Upcoming Encounters Date Type Department Care Team (Late st Contact Info) Description 05/12/2024 2:00 PM EST Office Visit [facility] MEDICINE [address] [place] [address] Breanna Zamudio ANP [address] [place] [address] documented as of this encounter Visit Diagnoses Diagnosis Ischemic colitis (CMS/HCC) documented in this encounter Care Teams Medical Collector Relationship Specialty Start Date End Date Breanna Zamudio ANP [address] [place] [address] PCP - General Family Medicine 10/03/19 [facility] 07/31/23 documented as of this encounter
--- OUTSIDE RECORDS SUMMARY | 2024-04-26 14:19 | XMS_ITS | Encounter Summary ---
Author Organization [employer] Address [address] [facility] 7t [place] [address] Care Team Providers Care Master Scheduler Name Role Phone Breanna Zamudio Primary Care Provider [phone] Reason for Visit * Reason Onset Date Comments FYI 08/31/2023 Encounter Details Date Type Department Care Team (Late st Contact Info) Description 08/31/2023 Telephone [facility] MEDICINE [address] [place] [address] Breanna Zamudio ANP [address] [place] [address] FYI Social History Tobacco Use Types Packs/Day [...] Tc from Caroline (Physical Therapist) with [facility] calling to inform pt is getting discharge as of today from PT services. Any questions [phone] documented in this encounter Plan of Treatment Upcoming Encounters Date Type Department Care Team (Late st Contact Info) Description 05/12/2024 2:00 PM EST Office Visit [facility] MEDICINE [address] [place] [address] Breanna Zamudio ANP [address] [place] [address] documented as of this encounter Visit Diagnoses Not on filedocumented in this encounter Care Teams Master Scheduler Relationship Specialty Start Date End Date Breanna Zamudio ANP [address] [place] [address] PCP - General Family Medicine 10/03/19 [facility] 07/31/23 documented as of this encounter
== END 2024-04-26 14:08 | disposition home or self-care (01) ==
PROVIDERS: PCP Nurse Practitioner Primary Care; Visit Provider Physician Assistant Medical
DX: E11.42 Type 2 diabetes mellitus with diabetic polyneuropathy (principal); Z79.4 Long term (current) use of insulin

== ENCOUNTER → 2024-04-26 13:13 | Outpatient (BNVA) | payer OTHER, SELFPAY | PROVIDERS: PCP Nurse Practitioner Primary Care; Visit Provider Physician Assistant Medical | DX: E11.42 Type 2 diabetes mellitus with diabetic polyneuropathy (principal); Z79.4 Long term (current) use of insulin; Z79.84 Long term (current) use of oral hypoglycemic drugs | CPT/HCPCS: 82947; 83036; 99212 ==

== ENCOUNTER 2024-06-28 12:48 | Outpatient (AMB) | payer OTHER, SELFPAY ==
--- NOTE | 2024-06-28 12:52 | MHC.OFFVIS ---
Vital Signs 06/28/24 12:55 06/28/24 13:22 Height 5 ft 5 in Weight 198 lb 3.129 oz BMI 33.0 BP 144/86 H 135/84 Blood Pressure Location Rt brachial Position Sitting Pulse 75 Pulse Source Pulse Oximeter Pulse Oximetry (%) 95 Oxygen Delivery Method Room Air Intake Visit Reasons: Type II diabetes Intake Note: Patient present today to follow up on Type 2 Diabetes Mellitus. Last Diabetic Eye exam: May 2024 Last Podiatry Visit: September 2023 Random Glucose: 145 mg/dl HgA1C: 7.5% 04/26/2024 Medical Administrative Assistant Required: Yes Medical Administrative Assistant Language: Mold Worker Services: Medical Administrative Assistant Present Medical Administrative Assistant Name: Leland Lynn [id number] Information Interpreted: non-clinical & clinical Accompanied by: LABORER WHARF Allergies hazelnut Allergy (Mild, Verified 06/28/24 12:56) per allergy skin test peanut Allergy (Mild, Verified 06/28/24 12:56) per allergy skin test Medication List - Last Reconciled 06/28/24 by CHEMA Elizabeth acetaminophen ER 650 mg PO TID albuterol sulfate 90 mcg/actuation (Ventolin HFA) 90 mcg inhalation Q4H PRN albuterol sulfate 1 amp inhalation Q4H PRN apixaban (Eliquis) 5 mg PO BID 90 days blood sugar diagnostic As directed blood sugar diagnostic (OneTouch Verio test strips) Use as directed to check blood glucose twice daily. blood-glucose meter (OneTouch Verio Flex Meter) Use as directed to check blood glucose blood-glucose sensor (FreeStyle Manuelito 3 Sensor device) apply new sensor every 14 days blood-glucose,supervisor tank house,cont (FreeStyle Manuelito 3 [place]) Use daily to monitor blood glucose levels continuously. celecoxib 200 mg PO PRN cholecalciferol (vitamin D3) 50 mcg PO QAM clonidine HCl 0.1 mg PO BID commode (bedside commode) As directed cyanocobalamin (vitamin B-12) 1,000 mcg PO DAILY dexlansoprazole 60 mg PO DAILY docusate sodium 100 mg PO BID 14 days empagliflozin (Jardiance) 25 mg PO QAM fluticasone propionate 50 mcg/actuation 1 spray intranasal DAILY mvtfmyuduqy-gigztmjrd-jzwpmnlu 200-62.5-25 mcg (Trelegy Ellipta) 1 ea inhalation DAILY gabapentin 100 mg PO TID 90 days insulin glargine (Lantus Solostar U-100 Insulin) 40 units subcut BEDTIME lancets (OneTouch Delica Plus Lancet) As directed to check blood sugar twice daily. levothyroxine 75 mcg PO QAM linaclotide (Linzess) 290 mcg PO DAILY lisinopril 40 mg PO DAILY meclizine 25 mg PO DAILY PRN metformin ER 1,000 mg (2 x 500 mg) PO BID 30 days metoprolol succinate ER 200 mg PO DAILY ooeftsbdiyhd-cfys-prejo acid 18-400 mg-mcg (Certavite-Antioxidant) 1 tab PO DAILY ondansetron 4 mg PO Q6-8H PRN oxycodone 10 mg PO QID PRN pioglitazone 15 mg PO QAM psyllium husk (Reguloid (psyllium husk)) 3 grams PO DAILY rosuvastatin 40 mg PO DAILY semaglutide (Ozempic) 2 mg (0.75 mL) subcut QWEEK tamsulosin 0.4 mg PO DAILY 90 days trazodone mg PO venlafaxine ER 150 mg PO DAILY HPI Comments Details: This is a 69-year-old female with a past medical history of nontoxic multinodular goiter, type 2 diabetes, hypothyroidism, secondary hyperparathyroidism, hypertension, hyperlipidemia , COPD and PE on chronic anticoagulation presenting for diabetes follow up. [place] video media consultant outside sales used for appointment. Hemoglobin A1c 7.5% 04/26/2024 down from 9.4%. Reviewed Manuelito 3+ CGM active 90% Average glucose 140 G LA 6.7% Glucose variability 28.1% Very high 0% High 14% Target range 83% Low 3% Very low 0% Patient has hypoglycemia overnight and in the afternoon. Patient says that sometimes she will get an alert for low blood sugar, but she has no symptoms, and she does not eat or drink anything, and then her sugar is normal 15-20 minutes later. She does report 2-3 episodes of symptomatic hypoglycemia overnight per month. She treats with orange juice. Current regimen: Ozempic 2 mg weekly. Metformin ER 1000 mg b.i.d. Lantus 42 units at bedtime Jardiance 25 mg q.a.m. Past medication: Actos discontinued due to lower leg edema. Denies neuropathy symptoms. Hyperglycemia symptoms: denies Eye exam: Up-to-date The patient has hypertension, on lisinopril 40 mg, metoprolol succinate 200 mg Hyperlipidemia is treated with rosuvastatin 40 mg. ROS: Constitutional: No unexplained weight loss, fever, chills or night sweats. Eyes: No vision change Gastrointestinal: No anorexia, nausea, vomiting or diarrhea. No abdominal pain Neurologic: No headache, dizziness, syncope Skin: No rash Endocrine: No cold or heat intolerance. No polyuria or polydipsia. Physical exam: Constitutional: Alert, in no distress. Eyes: Pupils are equal, round and reactive to light. Extraocular muscles intact. Neck: Supple, Full range of motion. No lymphadenopathy. No palpable thyroid masses. Respiratory: Clear to auscultation. Cardiovascular: S1 S2 regular. No murmurs. [facility] Medical History Asthma-COPD overlap syndrome Hypertension Diabetes MGUS (monoclonal gammopathy of unknown significance) Chronic restrictive lung disease Obesity (BMI 30.0-34.9) Cough due to SHANELLE inhibitor Eosinophilia Asthma T2DM (type 2 diabetes mellitus) Erosive gastritis Leg edema, left Hyperparathyroidism Vitamin D deficiency Multinodular thyroid Thyroid nodule Skin lesion of chest wall Type 2 diabetes mellitus with diabetic polyneuropathy Fibromyalgia Depression with anxiety Cervical cancer Osteoarthritis of left knee Osteopenia GERD (gastroesophageal reflux disease) Diabetes mellitus with hyperglycemia Meir's disease Other specified acquired hypothyroidism Hyperlipidemia LDL goal <100 Essential hypertension Vitamin B12 deficiency Other obesity due to excess calories BMI 35.0-35.9,adult Surgical History Hx of elbow surgery Hx of hand surgery Hx of arthroscopic knee surgery History of cholecystectomy History of arthroplasty of right knee Hx of hysterectomy Hx of foot surgery History of bilateral carpal tunnel release Hx of bilateral oophorectomy History of esophagogastroduodenoscopy (EGD) Hx of colonoscopy Family History Father CVD (cardiovascular disease) Diabetes mellitus Stroke Mother Stroke Diabetes mellitus Breast cancer Hyperthyroidism Social History Household Members: Spouse Housing: House Housing Other:: 2nd floor-2 family house Are you a primary neonatal critical care nurse to a significant other at home: No Do you presently have visiting nurse or other home services: Yes (LABORER WHARF) Alcohol intake: never Comment: continues with camera Patient Tobacco Use Status: Never used Tobacco service: No 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al status: disabled 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: Right Handed Female Reproductive History Menstrual Age of Menarche: 11 Physical Exam Vital Signs: Last Vital Signs Pulse 75 06/28/24 12:55 BP 144/86 H 06/28/24 12:55 Pulse Ox 95 06/28/24 12:55 Oxygen Delivery Method Room Air 06/28/24 12:55 BMI result Body Mass Index 33.0 Office Procedures Glucose Monitoring Details Details: See [facility] [address] - Glucose monitoring, continuous-physician I&R Procedure code (CPT) selection complete Results Reviewed Results Reviewed: Laboratory Last Values Glucose (Clinic) 145 mg/dL (60-115) H 06/28/24 13:01 Laboratory Tests 08/15/22 04/17/23 04/19/23 12:35 15:56 Unknown Creatinine Estimated GFR Hgb A1c (Clinic) AST ALT Triglycerides 154 H Cholesterol 219 H LDL Cholesterol Direct 70 HDL Cholesterol 54 Vitamin B12 TSH Ur Creatinine 24 Hour 0.46 L Ur Calcium 24 Hr 88 Calcium/Creat 24 Hr 192 10/09/23 11/30/23 01/07/24 14:44 15:24 14:11 Creatinine Estimated GFR Hgb A1c (Clinic) 7.7 H AST 18 ALT 31 Triglycerides Cholesterol LDL Cholesterol Direct HDL Cholesterol Vitamin B12 401 TSH 1.18 Ur Creatinine 24 Hour Ur Calcium 24 Hr Calcium/Creat 24 Hr 04/18/24 14:33 Creatinine 0.82 Estimated GFR > 60 Hgb A1c (Clinic) AST ALT Triglycerides Cholesterol LDL Cholesterol Direct HDL Cholesterol Vitamin B12 TSH Ur Creatinine 24 Hour Ur Calcium 24 Hr Calcium/Creat 24 Hr Assessment & Plan Assessment & Plan (1) Type 2 diabetes mellitus with diabetic polyneuropathy: Code(s): E11.42 - Type 2 diabetes mellitus with diabetic polyneuropathy Category: Medical Qualifiers: Diabetes mellitus correction insulin use: with salvage determiner use Qualified Code(s): E11.42 - Type 2 diabetes mellitus with diabetic polyneuropathy; Z79.4 - terminal worker (current) use of insulin Plan In summary this is a 69-year-old female with controlled type 2 diabetes per sensor data. If you experience low blood sugar, treat this by eating a chewable fruit candy like skittles or jelly beans (about 8 pieces), 4 ounces (1/2 cup) of fruit juice (not diet), 1 tablespoon of honey or 4 glucose tablets. If your blood sugar is under 55, take double the amount of one of the above. Recheck your blood sugar in 15 minutes. Patient advised not to drive if she has symptoms of low blood sugar or does not have a way to check her blood sugar. Decrease Lantus to 40 units nightly. Continue Metformin 1000 mg twice daily. Continue Jardiance 25 mg daily. Continue Ozempic 2 mg weekly. Reviewed lifestyle modifications and dietary recommendations with the patient. Complications of type 2 diabetes discussed with the patient. Follow up in 3 months for type 2 diabetes. She will have lab work done prior to that appointment. Orders: Orders Lipid Panel 3 Months E11.42 - Type 2 diabetes mellitus with diabetic polyneuropathy, E78.5 - Hyperlipidemia, unspecified, Z79.4 - terminal worker (current) use of insulin Microalbumin, Random (w Creat) 3 Months E11.42 - Type 2 diabetes mellitus with diabetic polyneuropathy, E11.9 - Type 2 diabetes mellitus without complications, Z79.4 - terminal worker (current) use of insulin Hemoglobin A1c 3 Months E11.42 - Type 2 diabetes mellitus with diabetic polyneuropathy, E11.9 - Type 2 diabetes mellitus without complications, Z79.4 - longterm (current) use of insulin Creatinine 3 Months E11.42 - Type 2 diabetes mellitus with diabetic polyneuropathy, E11.9 - Type 2 diabetes mellitus without complications, Z79.4 - longterm (current) use of insulin AMB Glucose Monitoring Today E11.9 - Type 2 diabetes mellitus without complications Vitamin B12 3 Months E11.42 - Type 2 diabetes mellitus with diabetic polyneuropathy, Z79.4 - longterm (current) use of insulin, Z91.89 - Other specified personal risk factors, not elsewhere classified Aspartate Amino Transferase 3 Months E11.42 - Type 2 diabetes mellitus with diabetic polyneuropathy, Z79.4 - longterm (current) use of insulin Alanine Aminotransferase 3 Months E11.42 - Type 2 diabetes mellitus with diabetic polyneuropathy, R79.89 - Other specified abnormal findings of blood chemistry, Z79.4 - terminal worker (current) use of insulin Platelet Count 3 Months E11.42 - Type 2 diabetes mellitus with diabetic polyneuropathy, E11.9 - Type 2 diabetes mellitus without complications, Z79.4 - terminal worker (current) use of insulin Medications: Changed From insulin glargine (Lantus Solostar U-100 Insulin) 20 units (0.2 mL) subcut BEDTIME 15 mL 5RF To insulin glargine (Lantus Solostar U-100 Insulin) 40 units subcut BEDTIME Patient Instructions: Decrease Lantus to 40 units. Continue Metformin 1000 mg twice daily. Continue Jardiance 25 mg daily. Continue Ozempic 2 mg weekly. If you experience low blood sugar, treat this by eating a chewable fruit candy like skittles or jelly beans (about 8 pieces), 4 ounces (1/2 cup) of fruit juice (not diet), 1 tablespoon of honey or 4 glucose tablets. If your blood sugar is under 55, take double the amount of one of the above. Recheck your blood sugar in 15 minutes. Disminuya la dosis de Lantus a 40 unidades. Contin?e con Metformina 1000 mg dos veces al d?a. Contin?e con Jardiance 25 mg al d?a. Contin?e con Ozempic 2 mg a la semana. Si experimenta un nivel bajo de az?car en la junior, tr?telo con un caramelo masticable de fruta miguel Skittles o Jelly Beans (aproximadamente 8 piezas), 113 ml (1/2 taza) de jugo de fruta (no light), 1 cucharada de miel o 4 tabletas de glucosa. Si garza nivel de az?car en la junior es inferior a 55, tome el doble de la dosis de zeenat de los medicamentos mencionados. Vuelva a medir garza nivel de az?car en la junior en 15 minutos. Coding Level of Care Code Est Pt Level 4 (05559) Diagnoses Type 2 diabetes mellitus with diabetic polyneuropathy, with long-term current use of insulin E11.42; Z79.4 Diabetes mellitus correction insulin use: with correction use CPT Codes Details - CPT: 80055 - Glucose monitoring, continuous-physician I&R ([id number])
[2024-06-28 12:55] VITALS: BP 144/86; PULSE 75; O2SAT 95; BMI 33.0
[2024-06-28 13:05] LABS: Glucose, Whole Blood 145 mg/dL (60-115)
[2024-06-28 13:22] VITALS: BP 135/84
--- OUTSIDE RECORDS SUMMARY | 2024-06-28 15:36 | XMS_ITS | Encounter Summary ---
Author Organization [employer] Address [address] [place] [address] Care Team Providers Care Supply Chain Manager Name Role Phone Breanna Zamudio Primary Care Provider [phone] Reason for Visit * Reason Onset Date Comments Med Refill 03/15/2024 Encounter Details Date Type Department Care Team (Late st Contact Info) Description 03/15/2024 Telephone [facility] MED[facility]INE [address] [place], [place] [phone] Breanna Zamudio ANP [address] [place], [place] [phone] Med Refill Social History Tobacco Use Types [...] immediate release tablet To be sent to: [facility] documented in this encounter Plan of Treatment Upcoming Encounters Date Type Department Care Team (Late st Contact Info) Description 08/09/2024 1:00 PM EDT Office Visit [facility] [address] [place] [address] Breanna Zamudio ANP [address] [place] [address] documented as of this encounter Visit Diagnoses Not on filedocumented in this encounter Care Teams Supply Chain Manager Relationship Specialty Start Date End Date Breanna Zamudio ANP [address] [place] [address] PCP - General Family Medicine 10/03/19 [facility] 07/31/23 documented as of this encounter
--- OUTSIDE RECORDS SUMMARY | 2024-06-28 15:37 | XMS_ITS | Encounter Summary ---
Author Organization [employer] Address [address] [place] [address] Care Team Providers Care Vacuum Drier Tender Name Role Phone Breanna Zamudio Primary Care Provider [phone] Reason for Visit * Reason Onset Date Comments Durable Medical Equipment 09/08/2022 Encounter Details Date Type Department Care Team (Late st Contact Info) Description 09/08/2022 Telephone [facility] MEDICINE [address] [place], [place] [phone] Breanna Zamudio ANP [address] [place] [address] Durable Medical Equipment Social History Tobacco Use [...] machines, please see notes,. Please contact at [phone] French * Telephone Encounter - RICARDO Caraballo - 09/19/2022 6:26 PM EDT Yes, of course. Thank you. Will place signed RX on your desk. * Telephone Encounter - Madhuri Doe - 09/18/2022 1:56 PM EDT Tc from [facility] with [facility] requesting status on nebulizer. States if script has not been sent to [facility], fax to [facility]. FAX: [phone] [facility] at [phone] ext [phone] * Telephone Encounter - Rosalinda Rucker - 09/08/2022 3:29 PM EDT Tc from patient requesting a new script for a nebulizer machine. States current one broke. documented in this encounter Plan of Treatment Upcoming Encounters Date Type Department Care Team (Late st Contact Info) Description 08/09/2024 1:00 PM EDT Office Visit [facility] MEDICINE [address] [place] [address] Breanna Zamudio ANP [address] [place] [address] documented as of this encounter Visit Diagnoses Not on filedocumented in this encounter Care Teams Vacuum Drier Tender Relationship Specialty Start Date End Date Breanna Zamudio ANP [address] [place] [address] PCP - General Family Medicine 10/03/19 [facility] 07/31/23 documented as of this encounter
--- OUTSIDE RECORDS SUMMARY | 2024-06-28 15:37 | XMS_ITS | Encounter Summary ---
Author Organization [employer] Address [address] [place] [address] Care Team Providers Care Gamewell Operator Name Role Phone Breanna Zamudio Primary Care Provider [phone] Encounter Details Date Type Department Care Team (Late st Contact Info) Description 06/28/2024 Orders Only GENERIC EXTERNAL DATA DEPARTMENT Provider, [...] Description 08/09/2024 1:00 PM EDT Office Visit [facility] MED[facility]INE [address] [place], [place] [phone] Breanna Zamudio ANP [address] [place] [phone] documented as of this encounter Procedures Procedure Name Priority Date/Time Associated Diagnosis Comments GLUCOSE, WHOLE BLOOD Routine 06/28/2024 1:01 PM EDT documented in this encounter Results * (ABNORMAL) Glucose, Whole Blood (06/28/2024 1:01 PM EDT) Glucose, Whole Blood 145(H) 60 - 115 mg/dL [facility] Comment:METER #: [id number] 5Testing performed in the Endocrinology Department [address] , [address], [facility]. 06/28/2024 1:01 PM EDT 06/28/2024 1:05 PM EDT us Generic External Data Provider LAB BLOOD ORDERAB LES Final Result [facility] [address] [place] [address] [phone] documented in this encounter Visit Diagnoses Not on filedocumented in this encounter Care Teams Gamewell Operator Relationship Specialty Start Date End Date Breanna Zamudio ANP [address] [place] [address] [phone] PCP - General Family Medicine 10/03/19 [facility] 07/31/23 documented as of this encounter
--- OUTSIDE RECORDS SUMMARY | 2024-06-28 15:37 | XMS_ITS | Encounter Summary ---
Author Organization [employer] Address [address] [place] [address] Care Team Providers Care Measurement Coordinator Name Role Phone Breanna Zamudio Primary Care Provider [phone] Reason for Visit * Reason Onset Date Comments Med Refill 04/11/2024 Encounter Details Date Type Department Care Team (Late st Contact Info) Description 04/11/2024 Telephone [facility] MEDICINE [address] [place], [place] [phone] Breanna Zamudio ANP [address] [place], [place] [phone] Med Refill Social History Tobacco Use Types [...] immediate release tablet To be sent to: [facility] *pt 04/18/24 to [place] because child is sick . Requesting 120 pill count documented in this encounter Plan of Treatment Upcoming Encounters Date Type Department Care Team (Late st Contact Info) Description 08/09/2024 1:00 PM EDT Office Visit [facility] MED[facility]INE [address] [place] [address] Breanna Zamudio ANP [address] [place] [address] documented as of this encounter Visit Diagnoses Not on filedocumented in this encounter Care Teams Measurement Coordinator Relationship Specialty Start Date End Date Breanna Zamudio ANP [address] [place] [address] PCP - General Family Medicine 10/03/19 [facility] 07/31/23 documented as of this encounter
--- OUTSIDE RECORDS SUMMARY | 2024-06-28 15:37 | XMS_ITS | Encounter Summary ---
Author Organization [employer] Address [address] [place] [address] Care Team Providers Care Tile Setter Name Role Phone Breanna Zamudio Primary Care Provider [phone] Reason for Visit * Reason Comments Med Refill Encounter Details Date Type Department Care Team (Late st Contact Info) Description 08/24/2023 Refill [facility] [address] [place], [place] [phone] Breanna Zamudio ANP [address] [place], [place] [phone] Ischemic colitis ([facility]) Social History Tobacco Use Types Packs/Day Years [...] Description 08/09/2024 1:00 PM EDT Office Visit [facility] MEDICINE [address] [place] [phone] Breanna Zamudio ANP [address] [place] [phone] documented as of this encounter Visit Diagnoses Diagnosis Ischemic colitis (CMS/HCC) documented in this encounter Care Teams Tile Setter Relationship Specialty Start Date End Date Breanna Zamudio ANP [address] [place] [phone] PCP - General Family Medicine 10/03/19 [facility] 07/31/23 documented as of this encounter
--- OUTSIDE RECORDS SUMMARY | 2024-06-28 15:37 | XMS_ITS | Encounter Summary ---
Author Organization [employer] Address [address] [place] [address] Care Team Providers Care Finisher Card Tender Name Role Phone Breanna Zamudio Primary Care Provider [phone] Reason for Visit * Reason Onset Date Comments Med Refill 02/27/2023 Encounter Details Date Type Department Care Team (Late st Contact Info) Description 02/27/2023 Telephone [facility] MEDICINE [address] [place], [place] [phone] Breanna Zamudio ANP [address] [place], [place] [phone] Med Refill Social History Tobacco Use Types [...] by Endo. * Telephone Encounter - Cristy Lyncho - 02/27/2023 11:58 AM EST Tc from pt requesting med refill on; Ozempic, 0.25 or 0.5 MG/DOSE, 2 MG/1.5ML solution pen-injector documented in this encounter Plan of Treatment Upcoming Encounters Date Type Department Care Team (Late st Contact Info) Description 08/09/2024 1:00 PM EDT Office Visit [facility] MEDICINE [address] [place] [address] Breanna Zamudio ANP [address] [place] [address] documented as of this encounter Visit Diagnoses Not on filedocumented in this encounter Care Teams Finisher Card Tender Relationship Specialty Start Date End Date Breanna Zamudio ANP [address] [place] [address] PCP - General Family Medicine 10/03/19 [facility] 07/31/23 documented as of this encounter
--- OUTSIDE RECORDS SUMMARY | 2024-06-28 15:37 | XMS_ITS | Encounter Summary ---
Author Organization [employer] Address [address] [place] [address] Care Team Providers Care Senior Electronics Design Engineer Name Role Phone Breanna Zamudio Primary Care Provider [phone] Reason for Visit * Reason Onset Date Comments Appointment Request 12/18/2023 Encounter Details Date Type Department Care Team ([facility] st Contact Info) Description 12/18/2023 Telephone [facility] MED[facility]INE [address] [place], [place] [phone] Breanna Zamudio ANP [address] [place], [place] [phone] Appointment Request Social History Tobacco Use Types [...] feeling well and had to cancel todays LENS GENERATING MACHINE TENDER visit . Would like to reschedule . documented in this encounter Plan of Treatment Upcoming Encounters Date Type Department Care Team (Late st Contact Info) Description 08/09/2024 1:00 PM EDT Office Visit [facility] MED[facility]INE [address] [place] [address] Breanna Zamudio ANP [address] [place] [address] documented as of this encounter Visit Diagnoses Not on filedocumented in this encounter Care Teams Senior Electronics Design Engineer Relationship Specialty Start Date End Date Breanna Zamudio ANP [address] [place] [address] PCP - General Family Medicine 10/03/19 [facility] 07/31/23 documented as of this encounter
--- OUTSIDE RECORDS SUMMARY | 2024-06-28 15:37 | XMS_ITS | Encounter Summary ---
Author Organization [employer] Address [address] [facility] 7[address] [place] [address] Care Team Providers Care Core Winder Name Role Phone Breanna Zamudio Primary Care Provider [phone] Reason for Visit * Reason Comments Med Refill Encounter Details Date Type Department Care Team (Late st Contact Info) Description 04/07/2022 Refill [facility]S [address] [place], [place] [phone] Breanna Zamudio ANP 230 [place], [place] [phone] Pain in unspecified joint Social History Tobacco [...] Upcoming Encounters Date Type Department Care Team ([facility] Contact Info) Description 08/09/2024 1:00 PM EDT Office Visit [facility] MEDICINE 230 [place], [place] [phone] Breanna Zamudio ANP 230 [place] [address] documented as of this encounter Visit Diagnoses Diagnosis Pain in unspecified joint documented in this encounter Care Teams Core Winder Relationship Specialty Start Date End Date Breanna Zamudio ANP 230 [place] [address] PCP - General Family Medicine 10/03/19 [facility] 07/31/23 documented as of this encounter
--- OUTSIDE RECORDS SUMMARY | 2024-06-28 15:37 | XMS_ITS | Encounter Summary ---
Author Organization [email or web address] Address [address] 7[address] [place] [address] Care Team Providers Care Animal Husbandry Teacher Name Role Phone Breanna Zamudio Primary Care Provider [phone] Reason for Visit * Reason Onset Date Comments FYI 08/31/2023 Encounter Details Date Type Department Care Team ([facility] st Contact Info) Description 08/31/2023 Telephone [facility] MEDICINE 230 [place], [place] [phone] Breanna Zamudio ANP 230 [place], [place] [phone] FYI Social History Tobacco Use Types Packs/Day [...] EDT Tc from Caroline (Physical Therapist) with [facility] calling to inform pt is getting discharge as of today from PT services. Any questions [phone] documented in this encounter Plan of Treatment Upcoming Encounters Date Type Department Care Team (Late st Contact Info) Description 08/09/2024 1:00 PM EDT Office Visit [facility] MEDICINE 230 [place] [address] Breanna Zamudio ANP 230 [place] [address] documented as of this encounter Visit Diagnoses Not on filedocumented in this encounter Care Teams Animal Husbandry Teacher Relationship Specialty Start Date End Date Breanna Zamudio ANP 230 [place] [address] PCP - General Family Medicine 10/03/19 [facility] 07/31/23 documented as of this encounter
--- OUTSIDE RECORDS SUMMARY | 2024-06-28 15:37 | XMS_ITS | Encounter Summary ---
Author Organization [employer] Address [address] [facility] [address] [place] [address] Care Team Providers Care Equipment Installation Professional Name Role Phone Breanna Zamudio Primary Care Provider [phone] Reason for Visit * Reason Onset Date Comments Med Refill 10/27/2023 Encounter Details Date Type Department Care Team (Late st Contact Info) Description 10/27/2023 Telephone [facility] MEDICINE 230 [place], [place] [phone] Breanna Zamudio ANP 230 [place], [place] [phone] Med Refill Social History Tobacco Use Types [...] immediate release tablet To be sent to: [facility] documented in this encounter Plan of Treatment Upcoming Encounters Date Type Department Care Team (Late st Contact Info) Description 08/09/2024 1:00 PM EDT Office Visit [facility] MEDICINE [address] [place] [address] Breanna Zamudio ANP 230 [place] [address] documented as of this encounter Visit Diagnoses Not on filedocumented in this encounter Care Teams Equipment Installation Professional Relationship Specialty Start Date End Date Breanna Zamudio ANP [address] [place] [address] PCP - General Family Medicine 10/03/19 [facility] 07/31/23 documented as of this encounter
--- OUTSIDE RECORDS SUMMARY | 2024-06-28 15:37 | XMS_ITS | Encounter Summary ---
Author Organization [employer] Address [address] 7[address] [place] [address] Care Team Providers Care China Painter Name Role Phone Breanna Zamuido Primary Care Provider [phone] Encounter Details Date Type Department Care Team ([facility] st Contact Info) Description 08/06/2023 Telephone [facility] MEDICINE [address] [place], [place] [phone] Breanna Zamudio ANP 230 [place], [place] [phone] Social History Tobacco Use Types Packs/Day Years [...] Description 08/09/2024 1:00 PM EDT Office Visit [facility] MEDICINE [address] [place] [address] Breanna Zamuido ANP 230 [place] [address] documented as of this encounter Visit Diagnoses Not on filedocumented in this encounter Care Teams China Painter Relationship Specialty Start Date End Date Breanna Zamudio ANP 230 [place] [address] PCP - General Family Medicine 10/03/19 [facility] 07/31/23 documented as of this encounter
--- OUTSIDE RECORDS SUMMARY | 2024-06-28 15:37 | XMS_ITS | Encounter Summary ---
Author Organization [employer] Address [address] [place] [address] Care Team Providers Care Brake Lining Driller Name Role Phone Breanna Zamudio Primary Care Provider Reason for Visit * Reason Onset Date Comments Appointment Request 04/11/2024 Encounter Details Date Type Department Care Team ([facility] st Contact Info) Description 04/11/2024 Telephone [facility] MEDICINE 230 [place], [place] [phone] Breanna Zamudio ANP 230 [place], [place] [phone] Appointment Request Social History Tobacco Use Types [...] Tc from pt spouse requesting to r/s MANAGER TRANSPORTATION visit. Contact pt at [phone](sinhala) documented in this encounter Plan of Treatment Upcoming Encounters Date Type Department Care Team (Late st Contact Info) Description 08/09/2024 1:00 PM EDT Office Visit [facility] MEDICINE 230 [place] [address] Breanna Zamudio ANP 230 [place] [address] documented as of this encounter Visit Diagnoses Not on filedocumented in this encounter Care Teams Brake Lining Driller Relationship Specialty Start Date End Date Breanna Zamudio ANP 230 [place] [address] PCP - General Family Medicine 10/03/19 [facility] 07/31/23 documented as of this encounter
--- OUTSIDE RECORDS SUMMARY | 2024-06-28 15:37 | XMS_ITS | Encounter Summary ---
Author Organization [employer] Address [address] [place] [address] Care Team Providers Care Tile Edger Name Role Phone Breanna Zamudio Primary Care Provider [phone] Encounter Details Date Type Department Care Team ([facility] st Contact Info) Description 08/31/2023 Telephone [facility] MEDICINE 230 [place], [place] [phone] Breanna Zamudio ANP 230 [place] [address] Social History Tobacco Use Types Packs/Day Years [...] Description 08/09/2024 1:00 PM EDT Office Visit [facility] MEDICINE [address] [place] [address] Breanna Zamudio ANP [address] [place] [address] documented as of this encounter Visit Diagnoses Not on filedocumented in this encounter Care Teams Tile Edger Relationship Specialty Start Date End Date Breanna Zamudio ANP [address] [place] [address] PCP - General Family Medicine 10/03/19 [facility] 07/31/23 documented as of this encounter
--- OUTSIDE RECORDS SUMMARY | 2024-06-28 15:37 | XMS_ITS | Data Portability ---
Author Organization [employer] Address [address] [place] [phone] Care Team Providers Care Ramp Jockey Name Role Phone [facility] Referring Provider [phone] Assessment No assessment recorded. Plan of Treatment [...] mm[Hg] 181 mm[Hg] 84 mm[Hg] Not Available [email or web address] - production 2 22:38:03 Social History None [...] Code Diagnosis Note [id number] Nancy Garcia MD [address] [phone] 01/11/2022 21:15:51 01/14/2022 13:03:57 Diverticulitis [id number] K57.92 Pt recently diagnosed with diverticul itis [...] assessment and plan as documented by the stock blender. I provided real time medical direction for [...] Cramer Member ID Guarantor Name 01/11/[address] [facility] - DOS PRIOR TO 2022 - DUAL ELIGIBLE (MEDICARE REPLACEMENT/ADV ANTAGE - HMO) Lois Dalton [id number] Lois Dalton Notes Date Note Type Note Provider Name and Address Organization Details Recorded Time 01/11/2022 text/html [facility] Nursing Asse ssment: Chief Complaints: Abdominal Pain PMH: Hypertension, COPD/Asthma, Diabetes Allergies: No Known Comments: Family of member request [facility] visit for eval abdominal pain x 5 days eval at ED dx with diverticulitis taking antibiotics cont with pain deny fever/chills refuse ED ....................... ....................... ....................... ....................... ....................... ....................... ... Distribution Clerk Note: Community Distribution Clerk Shelly Ma SC6 dispatched to a yellow for a 66 yof w/ abd pain. Upon arrival, the pt was sitting up in bed, WILHELM X4, holding her abdomen and grimacing in pain. She stated that she went to the ED recently for abd pain and was diagnosed with diverticulitis, w/ imaging. Her youth care professional recommended that she go to the ED. [...] ... Disposition: Fulfilled Nancy Garcia MD [address] [facility], [place], [address], [employer] 01/13/2022 09:59:42 OBGyn Episode No OBEpisode recorded.
--- OUTSIDE RECORDS SUMMARY | 2024-06-28 15:37 | XMS_ITS | Encounter Summary ---
Author Organization [employer] Address [address] [place] [address] Care Team Providers Care Fisher Pot Name Role Phone Breanna Zamudio Primary Care Provider Reason for Visit * Reason Comments Med Refill Encounter Details Date Type Department Care Team (Late st Contact Info) Description 08/24/2023 Refill [facility] MEDICINE 230 [place], [place] [phone] Breanna Zamudio ANP 230 [place], [place] [phone] Ischemic colitis ([facility]) Social History Tobacco Use Types [...] Description 08/09/2024 1:00 PM EDT Office Visit [facility] MEDICINE [address] [place] [address] Breanna Zamudio ANP [address] [place] [address] documented as of this encounter Visit Diagnoses Diagnosis Ischemic colitis (CMS/HCC) documented in this encounter Care Teams Fisher Pot Relationship Specialty Start Date End Date Breanna Zamudio ANP [address] [place] [address] PCP - General Family Medicine 10/03/19 [facility] 07/31/23 documented as of this encounter
--- OUTSIDE RECORDS SUMMARY | 2024-06-28 15:37 | XMS_ITS | Encounter Summary ---
Author Organization [employer] [facility] Address [address] [facility] 7t [place] [address] Care Team Providers Care Night Court Magistrate Name Role Phone Breanna Zamudio Primary Care Provider [phone] Reason for Visit * Reason Comments Med Refill Encounter Details Date Type Department Care Team (Late st Contact Info) Description 11/21/2022 Refill [facility] MEDICINE [address] [place] [phone] Breanna Zamudio ANP 230 [place], [place] [phone] Pain in unspecified joint Social History Tobacco [...] Description 08/09/2024 1:00 PM EDT Office Visit [facility] MEDICINE [address] [place] [phone] Breanna Zamudio ANP [address] [place], [place] [phone] documented as of this encounter Visit Diagnoses Diagnosis Pain in unspecified joint documented in this encounter Care Teams Night Court Magistrate Relationship Specialty Start Date End Date Breanna Zamudio ANP 230 [place] [address] PCP - General Family Medicine 10/03/19 [facility] 07/31/23 documented as of this encounter
--- OUTSIDE RECORDS SUMMARY | 2024-06-28 15:37 | XMS_ITS | Encounter Summary ---
Author Organization [employer] Address [address] [facility] [place] [address] Care Team Providers Care Junction Maker Name Role Phone Breanna Zamudio Primary Care Provider [phone] Reason for Visit * Reason Onset Date Comments Med Refill 01/21/2024 Encounter Details Date Type Department Care Team (Late st Contact Info) Description 01/21/2024 Telephone [facility] MEDICINE 230 [place], [place] [phone] Breanna Zamudio ANP 230 [place], [place] [phone] Med Refill Social History Tobacco Use Types [...] immediate release tablet To be sent to: [facility] [place], [place] - [address] [place] [address] documented in this encounter Plan of Treatment Upcoming Encounters Date Type Department Care Team ([facility] st Contact Info) Description 08/09/2024 1:00 PM EDT Office Visit [facility] MEDICINE 230 [place] [address] Breanna Zamudio ANP 230 [place] [address] documented as of this encounter Visit Diagnoses Not on filedocumented in this encounter Care Teams Junction Maker Relationship Specialty Start Date End Date Breanna Zamudio ANP 230 [place] [address] PCP - General Family Medicine 10/03/19 [facility] 07/31/23 documented as of this encounter
--- OUTSIDE RECORDS SUMMARY | 2024-06-28 15:37 | XMS_ITS | Encounter Summary ---
Author Organization [employer] Address [address] [place] [address] Care Team Providers Care Habitat Conservation Planner Name Role Phone Breanna Zamudio Primary Care Provider [phone] Reason for Visit * Reason Onset Date Comments Med Refill Letter Request 05/06/2024 The patient requ ested a letter, to be allowed to keep an emotional support animal, but it does not state what type of animal she will be keeping. I called, and she asked me to speak with her spouse Jaime. He stated that she will be keeping a small dog. Letter for Housing 05/06/2024 The patient r equested a letter for housing. She would like to have the toilet in her apartment changed, because the one that is there now is too low. She states that she had knee surgery, and it is difficult for her to stand up after using the bathroom. I called to ask if she has already discussed with housing about wanting it changed, because if they do not agree, she may need to get a raised toilet seat instead. I reached her voicemail, and left a message asking her to return my call at ext [phone]. Encounter Details Date Type Department Care Team (Late st Contact Info) Description 05/06/2024 Refill [facility] MED [facility] PEDS [address] [place], [place] [phone] Breanna Zamudio ANP 230 [place] [address] Ischemic colitis (CMS/HCC) Social History Tobacco Use Types Packs/Day Years [...] encounter Miscellaneous Notes * Telephone Encounter - Prisca Ramos [place] - 05/18/2024 10:32 AM EST The patient requested a letter for housing. She would like to have the toilet in her apartment changed, because the one that is there now is too low. She states that she had knee surgery, and it is difficult for her to stand up after using the bathroom. I called to ask if she has already discussed the matter with housing, because if they do not agree, she may need to get a raised toilet seat instead. I reached her voicemail, and left a message asking her to return my call at ext [phone]. * Telephone Encounter - Prisca Ramos [place] - 05/12/2024 3:28 PM EST The patient requested a letter, to be allowed to keep an emotional support animal, but it does not state what type of animal she will be keeping. I called, and she asked me to speak with her spouse Jaime. He stated that she will be keeping a small dog. documented in this encounter Plan of Treatment Upcoming Encounters Date Type Department Care Team (Late st Contact Info) Description 08/09/2024 1:00 PM EDT Office Visit [facility] MEDICINE [address] [place] [address] Breanna Zamudio ANP 230 [place] [address] documented as of this encounter Visit Diagnoses Diagnosis Ischemic colitis (CMS/HCC) documented in this encounter Care Teams Habitat Conservation Planner Relationship Specialty Start Date End Date Breanna Zamudio ANP [address] [place] [address] PCP - General Family Medicine 10/03/19 [facility] 07/31/23 documented as of this encounter
--- OUTSIDE RECORDS SUMMARY | 2024-06-28 15:37 | XMS_ITS | Encounter Summary ---
Author Organization [employer] [facility] Address [address] [facility] 7t [place] [address] Care Team Providers Care Die Finisher Name Role Phone Breanna Zamudio Primary Care Provider [phone] Reason for Visit * Reason Comments Med Refill Encounter Details Date Type Department Care Team (Late st Contact Info) Description 12/02/2022 Refill [facility] MEDICINE [address] [place] [address] [phone] Breanna Zamudio ANP 230 [place], [place] [phone] Pain in unspecified joint Social History Tobacco [...] Visit [facility] MEDICINE [address] [place] [address] [phone] Breanna Zamudio ANP 230 [place], [place] [phone] documented as of this encounter Visit Diagnoses Diagnosis Pain in unspecified joint documented in this encounter Care Teams Die Finisher Relationship Specialty Start Date End Date Breanna Zamudio ANP 230 [place] [address] PCP - General Family Medicine 10/03/19 [facility] 07/31/23 documented as of this encounter
--- OUTSIDE RECORDS SUMMARY | 2024-06-28 15:37 | XMS_ITS | Encounter Summary ---
Author Organization [employer] Address [address] [facility] 7t [place] [address] Care Team Providers Care Accounts Receivable Analyst Name Role Phone Breanna Zamudio Primary Care Provider [phone] Encounter Details Date Type Department Care Team (Late st Contact Info) Description 03/19/2022 Orders Only [facility] MED & PEDS [address] [place], [place] [phone] Breanna Zamudio ANP 230 [place] [address] Moderate persistent asthma without complication (Primary Dx) [...] Description 08/09/2024 1:00 PM EDT Office Visit [facility] MEDICINE 230 [place] [address] Breanna Zamudio ANP 230 [place] [address] documented as of this encounter Visit Diagnoses Diagnosis Moderate persistent asthma without complication- Primary documented in this encounter Care Teams Accounts Receivable Analyst Relationship Specialty Start Date End Date Breanna Zamudio ANP 230 [place] [address] PCP - General Family Medicine 10/03/19 [facility] 07/31/23 documented as of this encounter
--- OUTSIDE RECORDS SUMMARY | 2024-06-28 15:37 | XMS_ITS | Clinical Summary ---
Author Organization [employer] Address [address] [facility] [address] [place] [address] Care Team Providers Care Regional Maintenance Manager Name Role Phone Breanna Zamudio Primary Care Provider [phone] Allergies No known active allergies Medications Ventolin HFA 108 (90 Base) MCG/ACT inhaler Inhale 1 puff every 4 (four) hours if needed for wheezing. Active Alcohol Swabs (SM Alcohol Prep) 70 % pads USE TWICE DAILY DIRECTED Active Blood Glucose Monitoring Suppl ([employer]comTouch Verio Flex System) w/Device kit TEST BLOOD SUGAR TWICE DAILY Active cholecalciferol (Vitamin D-3) 50 MCG (2000 UT) tablet Take 1 tablet by mouth in the morning. Active Jardiance 25 MG Take 1 tablet by mouth 1 (one) time each day. Active OneTouch Verio test strip TEST BLOOD SUGAR TWICE DAILY Active Lantus SoloStar 100 UNIT/ML pen INJECT 34 UNITS SUBCUTANEOUSLY EVERY EVENING Active Lancets ([employer]comTouch Delica Plus [id number]) misc TEST BLOOD SUGAR TWICE DAILY Active [...] FOR ANXIETY 270 tablet 1 023 Active Ozempic, 0.25 or 0.5 MG/DOSE, 2 MG/3ML solution pen-injector INJECT 0.5 MG SUBCUTANEOUSLY ONCE A WEEK 024 Active Continuous Glucose Women'S [facility] Care Nurse Practitioner (FreeStyle Manuelito 2 [place]) device Use as directed 024 Active Continuous Glucose Sensor (FreeStyle Manuelito 2 Sensor) [facility] Every 2 weeks to monitor BG 024 Active Cyanocobalamin (Vitamin B-12) 1000 MCG sublingual [...] associated with type 2 diabetes mellitus (CMS/HCC) Use as instructed 100 each 5 024 Active glucose (BD Glucose) 5 g chewable tabletIndicatio ns:Hyperlipidem ia associated with type 2 diabetes mellitus (CMS/HCC) Chew 3 tablets (15 g) if needed for low blood sugar. 50 tablet 12 024 2024 Active fluticasone (Flonase) 50 MCG/ACT nasal sprayIndication s:COVID-19 INSTILL 1 SPRAY IN EACH NOSTRIL ONCE DAILY IN THE MORNING 16 g 2 024 Active Multiple Vitamins-Iron (Tab-A-Saima/Iro n/Beta Carotene) tablet TAKE 1 TABLET BY MOUTH EVERY DAY WITH FOOD 90 tablet 3 024 Active traZODone (Desyrel) 150 MG tabletIndicatio ns:Insomnia disorder with non-sleep disorder mental comorbidity TAKE 2 TABLETS BY MOUTH EVERY DAY AT BEDTIME 60 tablet 5 025 Active albuterol 0.63 MG/3ML nebulizer solutionIndicat ions:Moderate persistent asthma without complication INHALE 1 AMPULE USING A NEBULIZER EVERY 4 TO 6 HOURS NEEDED FOR WHEEZING OR SHORTNESS OF BREATH FOR ASTHMA 75 mL 2 025 Active levothyroxine (Synthroid, Levoxyl) 75 MCG tabletIndicatio ns:Hypothyroidi sm, unspecified type TAKE 1 TABLET BY MOUTH EVERY DAY BEFORE BREAKFAST 90 tablet 1 025 Active metoprolol succinate XL (Toprol-XL) 200 MG 24 hr tabletIndicatio ns:Essential hypertension TAKE 1 TABLET BY MOUTH EVERY MORNING 90 tablet 3 025 Active venlafaxine XR (Effexor XR) 225 MG 24 hr tabletIndicatio ns:Mixed anxiety and depressive disorder Take 1 tablet (225 mg) by mouth with breakfast. Do not crush, chew, or split. 30 tablet 2 Active oxyCODONE (Roxicodone) 10 MG immediate release tabletIndicatio ns:Ischemic colitis (CMS/HCC) Take 1 tablet (10 mg) by mouth every 6 (six) hours if needed for severe pain. 120 tablet 025 2024 Active cloNIDine (Catapres) 0.1 MG tabletIndicatio ns:Hot flashes TAKE 2 TABLETS BY MOUTH EVERY DAY AT BEDTIME 60 tablet 2 025 Active cloNIDine (Catapres) 0.1 MG tabletIndicatio ns:Hot flashes TAKE 2 TABLETS BY MOUTH AT BEDTIME 60 tablet 2 024 2024 Discontinued oxyCODONE (Roxicodone) 10 MG immediate release tabletIndicatio ns:Ischemic colitis (CMS/HCC) Take 1 tablet (10 mg) by mouth every 6 (six) hours if needed for severe pain. Do not start before May 12, 2024. 120 tablet 025 2024 Discontinued(R eorder (will not trigger notification to Pharmacy)) oxyCODONE (Roxicodone) 10 MG immediate release tabletIndicatio ns:Ischemic colitis (CMS/HCC) Take 1 tablet (10 mg) by mouth every 6 (six) hours if needed for severe pain. Do not start before June 10, 2024. 120 tablet 025 2024 Discontinued(R eorder (will not trigger notification to Pharmacy)) Active Problems Problem Noted Date Diagnosed Date Mixed stress and urge urinary incontinence 06/15 Ischemic colitis 07/31/2023 Pre-op examination 05/24/2023 Assessment [...] AM EST): Rx Paxlovid x 5 days, Ashley interactions module checked, she will hold Crestor [...] edema. I d/w patient that this a fdc issue to fu with PCP, encouraged tight control of DM. Neuropathic pain 07/04/2022 Hyperparathyroidism 11/22/2021 Osteopenia 11/22/2021 Gastroesophageal reflux disease without esophagi tis 01/26/2015 Hyperlipidemia associated with type 2 diabetes m ellitus 01/26/2015 Insomnia disorder with non-s leep disorder [...] Encounters Date Type Department Care Team Description 06/28/2024 Orders Only GENERIC EXTERNAL DATA DEPARTMENT Provider, Generic External Data 06/22/2024 Refill [facility] [address] [place] [address] Breanna Zamudio ANP Hot flashes 06/15/2024 Telephone [facility] [address] [place] [address] Breanna Zamudio ANP Prior Auth Prescription 06/15/2024 Telephone [facility] [address] [place] [address] Breanna Zamudio ANP Durable Medical Equipment 06/13/[address] [facility] [address] [place] [address] Sis Coppola, AIDA mastic sprayer 06/13/2024 Telephone [facility] [address] [place] [address] Breanna Zamudio ANP Appointment Request 06/09/2024 Orders Only [facility] [address] [place] [phone] Breanna Zamudio ANP Ischemic colitis ([facility]/HCC) 06/06/2024 Refill [facility] [address] [place] [address] Breanna Zamudio ANP Ischemic colitis ([facility]/HCC) 05/12/2024 2:00 PM EST Office Visit [facility] [address] [place] [address] Breanna Zamudio ANP Screening mammogram for breast cancer (Primary Dx); Hyperlipidemia associated with type 2 diabetes mellitus ([facility]/HCC) ([facility]); Insomnia disorder with non-sleep disorder mental comorbidity; Mixed anxiety and depressive disorder; Irritable bowel syndrome with diarrhea; Neuropathic pain; Bilateral leg edema; Hypertensive urgency; Mixed stress and urge urinary incontinence 05/12/2024 Travel 05/11/2024 Refill [facility] [address] [place] [address] Breanna Zamudio ANP Hypothyroidism, unspecified type; Essential hypertension 05/09/2024 Telephone [facility] [address] [place] [phone] Breanna Zamudio ANP Chart Prep 05/09/2024 Refill [facility] [address] [place] [phone] Breanna Zamudio ANP Ischemic colitis ([facility]) 05/06/[address] [facility] [address] [place] [address] Breanna Zamudio ANP Ischemic colitis ([facility]) 04/29/2024 Travel 04/29/2024 Telephone [facility] [address] [place] [address] Sis Coppola, RN mastic sprayer 04/28/[address] [facility] [address] [place] [address] Sis Coppola, RN mastic sprayer 04/26/2024 Orders Only GENERIC EXTERNAL DATA DEPARTMENT Provider, Generic External Data 04/18/2024 Orders Only GENERIC EXTERNAL DATA DEPARTMENT Provider, Generic External Data 04/18/[address] [facility] [address] [place] [address] Breanna Zamudio ANP Moderate persistent asthma without complication 04/11/2024 Refill [facility] [address] [place], [place] [phone] Sis Coppola RN Ischemic colitis ([facility]) 04/11/2024 Telephone [facility] [address] [place] [address] Breanna Zamudio ANP Med Refill 04/11/2024 Telephone [facility] [address] [place] [address] Breanna Zamudio ANP Appointment Request 04/09/2024 Refill [facility] [address] [place], [place] [phone] Marce Gross MD Insomnia disorder with non-sleep disorder mental comorbidity from Last 3 Months Immunizations Name Administration Dates Next Due Hep A, Adult 11/09/2007,04/14/2006 Hep A, Unspecified 11/09/2007,04/14/2006 Hep B, Unspecified 11/09/2007,04/14/2006 Hep B, adult 11/09/2007,04/14/2006 Influenza High-dose Quadriva lent Preservative Free 11/20/2022 Influenza injectable quadriv alent preservative free 04/02/2022,03/10/2018 Influenza, IIV3, injectable 12/22/2013 Moderna Covid-19 Vaccine 12+ 03/25/2021,06/16/19 21,05/18/2020 Moderna Covid-19 Vaccine 6+ Bivalent 07/07/2022 Pfizer Covid-19 Vaccine 12+ 05/12/2024 Pneumococcal Conjugate PCV 20 07/07/2022 Pneumococcal Polysaccharide PPSV23 07/26/2018, SARS-CoV-2, Unspecified 03/25/2021,06/15/2020, TD (adult), 2 Lf tetanus tox oid, preservative free, adsorbed 04/14/2006 Td (adult), unspecified 04/14/2006 Tdap 09/24/2016 Zoster, Unspecified 09/24/2016 Zoster, live 09/24/2016 Social History Tobacco Use Types Packs/Day Years Used Date Smoking Tobacco: Never Passive Smoke Exposure: Never Smokeless Tobacco: Never Tobacco Cessation:Counseling Given: Not Answered Alcohol Use Standard Drinks/Week Comments Not Currently [...] Sign Reading Time Taken Comments Blood Pressure 160/86 05/12/2024 2:41 PM EST Pulse 78 05/12/2024 1:53 PM EST Temperature 36.8 ??C (98.2 ??F) 05/12/2024 1:53 PM ES T Respiratory Rate 16 05/12/2024 1:53 PM EST Oxygen Saturation 98% 05/12/2024 1:53 PM EST Inhaled Oxygen Concentration - - Weight 89.4 kg (197 lb 3.2 oz) 05/12/2024 1:53 P M EST Height 165.1 cm (5' 5 ) 11/26/2023 2:27 PM EDT Body Mass Index 32.82 11/26/2023 2:27 PM EDT Plan of Treatment Upcoming Encounters Date Type Department Care Team (Late st Contact Info) Description 08/09/2024 1:00 PM EDT Office Visit [facility] [address] [place], [place] [phone] Breanna Zamudio ANP [address] [place], [place] [phone] Health Maintenance Due Date Last Done Comments CT Colonography 1954 FIT DNA/Cologuard 1954 FIT 1954 FOBT 1954 Sigmoidoscopy 1954 Eye Exam 1964 Hepatitis C Screening 1972 [...] Additional history exists Lipid Panel 08/16/2023 08/15/2022, 0604/2022, 10/04/2019 Depression Screening 03/19/2024 03/19/2023, 03/19/19 24 SDOH Screening 03/26/2024 03/26/2023 Diabetes: Hemoglobin A1C 08/09/2024 025, 11/26/2023, 08/28/2023, Additional history exists Alcohol/Substance Use Screening 08/27/2024 08/28/2023 Influenza Vaccine (#1) 2024 3, 04/02/2022, 03/10/2018, Additional history exists Postponed from 11/15/2023 (Patient Refused) Diabetes: Foot Exam 04/26/2025 04/26/2024 Tobacco Screening 05/12/2025 05/12/2024 DTaP/Tdap/Td Vaccines (2 - Td or Tdap) 09/24/2026 09/24/2016, 04/14/2006, 04/14/2006 Colonoscopy 12/24/2027 12/23/2022 Colorectal Cancer Screening 12/24/2027 Hepatitis A Vaccines Aged Out 11/09/2007, 11/09/2007, 04/14/2006, Additional history exists No longer eligible based on patient's age to complete this topic Pneumococcal Vaccine: 50+ Years Completed 07/07/2022, 07/26/2018, 11/09/2007 COVID-19 Vaccine Completed 05/12/2024, , 03/25/2021, Additional history exists HIB Vaccines Aged Out No longer eligi [...] WHOLE BLOOD Routine 06/28/2024 1:01 PM EDT POCT GLYCATED HEMOGLOBIN, TOTAL Routine 05/12/2024 1:58 PM EST Hyperlipidemia associated with type 2 diabetes mellitus (CMS/HCC) (CMS/HCC) POCT GLUCOSE Routine 05/12/2024 1:55 PM EST Hyperlipidemia associated with type 2 diabetes mellitus (CMS/HCC) (CMS/HCC) GLUCOSE, WHOLE BLOOD Routine 04/26/2024 1:34 PM EST BASIC METABOLIC PANEL Routine 04/18/2024 2:33 PM EST HM COLONOSCOPY Routine 12/23/2022 ALBUMIN, RANDOM URINE W/CREATININE Routine 08/15/2022 1:45 PM EDT DIRECT LDL Routine 08/15/2022 12:35 PM EDT BI MAMMOGRAM SCREENING BILATERAL Routine 12/07/2018 11:01 AM EDT from Last 3 Months or Most Recently Relevant to Health Maintenance Results * (ABNORMAL) Glucose, Whole Blood (06/28/2024 1:01 PM EDT) Only the most recent of2 resultswithin the time period is included. Glucose, Whole Blood 145(H) 60 - 115 mg/dL [facility] Comment:METER #: [id number] 5Testing performed in the Endocrinology Department [address] , [address], [facility]. 06/28/2024 1:01 PM EDT 06/28/2024 1:05 PM EDT us Generic External Data Provider LAB BLOOD ORDERAB LES Final Result Performing Organization Address City/State/[facility] Co de Phone Number [facility] [address] [place] [phone] * (ABNORMAL) POCT HGB A1C (05/12/2024 1:58 PM EST) Hemoglobin A1C 7.4(A) 4.0 - 6.0 % QC Media Lot # [id number] Lot# Expiration Date Blood 05/12/2024 1:58 PM EST us Breanna Zamudio ANP POINT OF CARE TEST ENTER/EDIT OR DERABLES Final Result * POCT Glucose (05/12/2024 1:55 PM EST) Glucose Blood, POC 157 60 - 200 mg/dL QC Media Lot # [id number] Lot# Expiration Date [id number] Blood Capillary blood specimen / Unknown 05/12/2024 1:55 PM EST Breanna SILVA POINT OF CARE TEST ENTER/EDIT OR DERABLES Final Result * (ABNORMAL) Basic Metabolic Panel (04/18/2024 2:33 PM EST) Pathologist [facility] Sodium 140 135 - 145 mmol/L [facility] Potassium 4.4 3.3 - 5.1 mmol/L [facility] Chloride 107 96 - 108 mmol/L [facility] Carbon Dioxide 26 22 - 29 mmol/L [facility] Anion Gap 11(L) 12 - 20 [facility] Urea Nitrogen (BUN) 12 9 - 16 mg/dL [facility] Creatinine, Serum 0.82 0.5 - 1.4 mg/dL [facility] Estimated Glomerular Filt Rate >60 [facility] Comment:Chronic Kidney Disea se: Estimated GFR < 60 mL/min/[id number] Kidney Disease: Estimated GFR < 15 mL/min/1.73m2 Glucose 198(H) 60 - 115 mg/dL [facility] Calcium 9.3 8.4 - 10.2 mg/dL [facility] 04/18/2024 2:33 PM EST 04/18/2024 2:33 PM EST Generic External Data Provider LAB BLOOD ORDERAB LES Final Result Performing Organization Address City/State/[facility] Co de Phone Number [facility] [address] [place] [address] [phone] * (ABNORMAL) Hm Colonoscopy (12/23/2022) Colonoscopy Abnormal( A) Normal [facility] Comment:tubular adenoma 12/23/2022 Yuni Jeffery MD HEALTH MAINTENANCE Final Result Performing Organization Address City/State/[facility] Co de Phone Number [facility] [address] [place] [address] [phone] * Albumin, Random Urine W/Creatinine (08/15/2022 1:45 PM EDT) Creatinine, Urine 50.16 mg/dL [facility] Microalbumin Urine 12.0 mg/L [facility] Microalbum Creatinine Ratio Ur 23.9 ug/mg cr [facility] Comment:Albumin/Creatinine R atio Reference Ranges: Normal: < 30 ug/mg creatinine Microalbuminuria: 30 - 300 ug/mg creatinineClinical Albuminuria: > 300 ug/mg creatinine 08/15/2022 1:45 PM EDT 08/15/2022 2:19 PM EDT [facility] External Provider LAB URI NE ORDERABLES Final Result Performing Organization Address [facility] de Phone Number [facility] [address] [place] [phone] * Direct LDL (08/15/2022 12:35 PM EDT) LDL Direct 70 <100 mg/dL [facility] Comment:Greatly elevated Tri glycerides values (>1200 mg/dL)interfere with the dLDL assay. As no Triglyceridestesting was ordered, interpret results with caution.Desirable range <100 mg/dL for primary prevention;<70 mg/dL for patients with CHD or diabetic patientswith > or = 2 CHD risk factors.THIS TEST WAS PERFORMED AT:[facility] [place] [id number] JAIME MD 08/15/2022 12:3 5 PM EDT 08/15/2022 12:36 PM EDT [facility] External Provider LAB BLO OD ORDERABLES Final Result Performing Organization Address [facility] Co de Phone Number [facility] [address] [place] [address] [phone] * 3D DIGITAL TONY SCR MAMMO [...] 3D DIGITAL TONY SCR MAMMO 1 Roger Damion FURNACE REPAIRER IMG BI PROCEDURES Final Result from Last 3 Months or Most Recently Relevant to Health Maintenance Insurance [facility] Care Teams Regional Maintenance Manager Relationship Specialty Start Date End Date Breanna Zamudio ANP [address] [place] [phone] PCP - General Family Medicine 10/03/19 [facility] 07/31/23
--- OUTSIDE RECORDS SUMMARY | 2024-06-28 15:37 | XMS_ITS | Encounter Summary ---
Author Organization [employer] Address [address] [place] [address] Care Team Providers Care Traveling Auditor Name Role Phone Breanna Zamudio Primary Care Provider [phone] Reason for Visit * Reason Onset Date Comments Appointment Request 06/13/2024 Encounter Details Date Type Department Care Team ([facility] st Contact Info) Description 06/13/2024 Telephone [facility] [address] [place], [place] [phone] Breanna Zamudio ANP [address] [place], [place] [phone] Appointment Request Social History Tobacco Use Types [...] * Telephone Encounter - Sushma Abreu - 06/13/2024 2:32 PM EDT Tc from pt canceled CORRECTION OFFICER SUPERVISOR appt due to being on vacation in [place] and would like to r/s after 07/08/24. documented in this encounter Plan of Treatment Upcoming Encounters Date Type Department Care Team (Late st Contact Info) Description 08/09/2024 1:00 PM EDT Office Visit [facility] [address] [place] [address] Breanna Zamudio ANP [address] [place] [address] documented as of this encounter Visit Diagnoses Not on filedocumented in this encounter Care Teams Traveling Auditor Relationship Specialty Start Date End Date Breanna Zamudio ANP [address] [place] [address] PCP - General Family Medicine 10/03/19 [facility] 07/31/23 documented as of this encounter
--- OUTSIDE RECORDS SUMMARY | 2024-06-28 15:37 | XMS_ITS | Encounter Summary ---
Author Organization [employer] Address [address] [place] [address] Care Team Providers Care Building Serviceman Name Role Phone Breanna Zamudio Primary Care Provider [phone] Reason for Visit * Reason Onset Date Comments Med Refill 11/18/2023 Encounter Details Date Type Department Care Team (Late st Contact Info) Description 11/18/2023 Telephone [facility] [address] [place], [place] [phone] Breanna Zamudio ANP [address] [place], [place] [phone] Med Refill Social History Tobacco Use Types [...] immediate release tablet To be sent to: [facility] [place], [place] - [address] [place] [address] documented in this encounter Plan of Treatment Upcoming Encounters Date Type Department Care Team ([facility] st Contact Info) Description 08/09/2024 1:00 PM EDT Office Visit [facility] [address] [place] [address] Breanna Zamudio ANP [address] [place] [address] documented as of this encounter Visit Diagnoses Not on filedocumented in this encounter Care Teams Building Serviceman Relationship Specialty Start Date End Date Breanna Zamudio ANP [address] [place] [address] PCP - General Family Medicine 10/03/19 [facility] 07/31/23 documented as of this encounter
--- OUTSIDE RECORDS SUMMARY | 2024-06-28 15:38 | XMS_ITS | Data Portability ---
Author Organization [facility] [employer] [facility], Main Office Address [address], [address] [place] [address] Care Team Providers Care Undercover Operator Name Role Phone SNADRITA BEARDEN 1ST FLOOR OTHER [phone] ALBANIA CIFUENTES Primary Care Provider Assessment Encounter Date Assessment Date Assessment LastModified by Organization Details LastModified Time 08/04/2018 08/04/2018 Hgb 11.5, Hct 34.7 in hospital [facility] Not available 08/04/2018 08:51:23 Plan of Treatment [...] By Organization Details Last Modified Time 08/06/2018 00594 Also, for PCP to evaluate whether or [...] knee joint Active 2018 SARAH MATIAS [address] , [address], [place], [address], [facility] 9 08:19:48 Asthma 085363382 Active 2018 SARAH MATIAS [address], [address], [place], [address], [facility] 9 08:23:00 Gastroesophage al reflux disease without esophagitis 645292939 Active 2018 SARAH MATIAS [address], [address], [place], [address], [facility] 9 08:23:06 Essential hypertension 78157249 Active 2018 SARAH MATIAS [address], [address], [place], [address], [facility] 9 08:23:16 Hypothyroidism 85834678 Active 2018 SARAH MATIAS [address], [address], [place], [address], [facility] 9 08:23:25 Type 2 diabetes mellitus 25392739 Active 2018 SARAH MATIAS [address], [address], [place], [address], [facility] 9 08:23:34 Anxiety 36535129 Active 2018 SARAH MATIAS [address], [place], [address], [facility] 9 08:24:11 Hormone therapy Active [address], [place], [address], [facility] 9 08:24:30 Chronic constipation 347453321 Active [address], [place], [address], [facility] 9 08:25:50 Acute urinary tract infection 146801666 Active 2018 SARAH MATIAS [address], [address], [place], [address], [facility] 9 08:26:59 Hypercholester olemia 49868999 Active 2018 SARAH MATIAS [address], [address], [place], [address], [facility] 9 08:28:38 Depressive disorder 92197667 Active 2018 HILARIA SARAH SOMMER [address] [facility] [facility] [address], [address], [place], [address], [facility] 9 08:42:14 Falls 116010749 Active 2018 HILARIA SARAH SOMMER [address] [facility] [facility], [address], [place], [address], [facility] 9 09:41:31 Gastroesophage al reflux disease 642491270 Active 2018 Eliza Garza MD [address] [facility] [address] [facility], [address], [place], [address], [facility] 9 11:39:19 Problem Notes None recorded. Medical [...] 156 mm[Hg] 70 mm[Hg] SARAH MATIAS [address] [facility], [address], [place], [address], [facility] 9 08:17:26 Date Recorded Systolic blood pressure Diastolic blood pressure Provider Name and Address Organization Details Last Updated DateTime 08/06/2018 156 mm[Hg] 70 mm[Hg] Eliza Garza MD [address] [facility] [facility], [address], [place], [address], [facility] 08/06/2018 11:18:46 Social History Question Answer Notes LastModified by Organizat ion Details LastModified Time Tobacco Smoking Status Never Smoker Not Available [facility] 01/10/2020 03:13:23 Do You Have An Advance Directive? Yes FULL CODE- Use Dialysis, Nutrtition And Hydration [id number] Information not available 01/10/2020 What Is Your Level Of Alcohol Consumption? None [id number] Information not available 01/10/2020 How Much Tobacco Do You Chew? None [id number] Information not available 01/10/2020 Do You Have A Medical Power Of Inside Sales Administrator? Yes HCP On File [id number] Information not available 01/10/2020 What Was The Date Of Your Most Recent Tobacco Screening? 08/04/2018 [id number] Information not available 01/10/2020 Sex: Unknown Functional Status None recorded. Mental Status None recorded. Family History Nothing Reported. Medical History No medical history recorded. Gynecological HistoryNo gynecological history recorded. Obstetrics History GPAL:G 0 P 0 0 0 0 Immunizations Vaccine Type Date Status Note Provider Nam e and Address Organization Details Recorded Time Hep B, unspecified formulation 7 completed Dannaromi Ocampo [facility] 07/21/2023 15:47:49 Hep B, unspecified formulation 8 completed Danna Terrence [facility] 07/21/2023 15:47:57 Tdap 7 completed Danna Terrence [facility] 07/21/2023 15:48:12 Td(adult) unspecified formulation 7 completed Danna Terrence [facility] 07/21/2023 15:48:25 Pneumococcal conjugate PCV20, polysaccharide [id number] conjugate, adjuvant, PF 3 completed Danna Ocampo [facility] 07/21/2023 15:53:08 influenza, unspecified formulation 3 completed Danna Ocampo [facility] 07/21/2023 16:00:43 influenza, unspecified formulation 3 completed Danna Ocampo [facility] 07/21/2023 16:01:16 Hep A, unspecified formulation 7 completed Danna Ocampo [facility] 07/21/2023 16:08:25 Hep A, unspecified formulation 8 completed Danna Ocampo [facility] 07/21/2023 16:08:36 SARS-COV-2 (COVID-19) vaccine, UNSPECIFIED 1 completed Danna Ocampo [facility] 07/21/2023 16:11:09 SARS-COV-2 (COVID-19) vaccine, UNSPECIFIED 1 completed Danna [facility] 07/21/2023 16:11:19 SARS-COV-2 (COVID-19) vaccine, UNSPECIFIED 2 completed Danna [facility] 07/21/2023 16:11:32 SARS-COV-2 (COVID-19) vaccine, UNSPECIFIED 3 completed Danna [facility] 07/21/2023 16:12:34 zoster, unspecified formulation 7 [facility] 16:12:52 Past Encounters Encounter ID Performer Location Encounter Start Date Encounter Closed Date Diagnosis/Indication Diagnosis SNOMED-CT Code Diagnosis ICD10 Code Diagnosis Note [id number] SARAH MATIAS [address] [address] 08/04/2018 08:13:08 08/06/2018 15:43:41 Replacement of total knee joint 985461462 Z96.651 PT/OT eval and treat for gait training and strengthen ingROM 0-120WBATl imit stair climbingno showersuse a walkerkeep aquacel dressing clean and intactoxyc odone 10 mg q 4 hrs prnultram 50 mg q 6 hrs prntylenol 650 mg q 6 hrs scheduledA SA 325 mg bid x 15 dayspost op appt with ortho on 08/11/18 Acute urin gael tract infection 230065121 N30.00 keflex 500 mg bid x 5 daysmonito r for resolution Asthma 315811884 J45.99 8 albuterol hfa 1-2 puffs q 4 hrs prnqvar 40 mcg 2 puffs bidmonitor for respirator y symptoms Gastroesop hageal reflux disease without esophagitis 217932575 K21.9 dexlansopr azole 60 mg qdmonitor for symptoms Type 2 radha betes mellitus 48467594 E11.9 trulicity 1.5 mg q weekglybur lima 1.25 mg qdlantus 28 units q pmmetformi n er 500 mg q am and 1000 mg q pmmonitor for s/s of hypo/hyper glycemia Essential hypertension 19547888 I10 lasix 20 mg qdHCTZ 50 mg qdlisinopr il 40 mg qdmetoprol ol succinate 200 mg qdverapami l er 360 mg qdmonitor b/p and pulse Hypothyroidism 55085496 E03.8 levothyrox ine 75 mcg qdmonitor TSH Hormone re placement therapy 930261637 Z79.890 estradiol 1 mg qdmonitor Anxiety 00346549 F41.1 atarax 50 mg q 6 hrs prnativan 1 mg bid prndiscuss ed risk vs benefit of ativan with patientmon itor for anxiety Depressive disorder 3541 6717 F32.89 effexor 75 mg bidtrazodo ne 50 mg q hsdiscusse d risk vs benefit of effexor and trazodone with patientmon itor moodpsych eval and treat prn Chronic constipation 236 316380 K59.09 linaclotid e 72 mg qdmonitor constipati on with opioid use Hypercholesterolemia 136 66930 E78.2 crestor 20 mg q hsmonitor labs [place] 312093360 R29.6 PT/OT eval and treatmonit or for safetyenco urage walker use [id number] Eliza Garza MD [address] [address] 08/06/2018 11:17:07 08/11/2018 09:54:55 Asthma 051386089 J45.30 Qvar 1 puff bidprovent il HFA 2 puffs q4h prn Chronic constipation 236 695174 K59.09 good bowel regimenLin zess 72 mcg daily Depressive disorder 3544 0817 F32.89 trazodone 50 mg at hsvenlafax ine ER 75 mg dailyfu psych prn Hypothyroidism 43690365 E03.8 levothyrox ine 75 mcg dailyfu as outpatient Acute urin agel tract infection 419227886 N30.00 finish course cephalexin 500 mg bidencoura ge good hydrationf u prn Type 2 radha betes mellitus 25961061 E11.9 metformin ER 1000 mg in evening and ER 500 mg in morninggly buride 1.25 mg dailyLantu s 28U dailyTruli city 1.5mg once a week continue to monitor with PCP when outpatient Essential hypertension 70757356 I10 HCTZ 50 mg dailyfuros emide 20 mg dailymetop rolol XL 200 mg dailyverap armen 360 mg dailylisin opril 40 mg dailyfor PCP to evaluate as outpatient if 2 different diuretics are needed - may be able to d/c either HCTZ or furosemide History of total knee arthroplasty 3043097439 105 Z96.651 continue PT/OTAPAP prnASA 325 mg bidoxycodo ne 10 mg q4h prntramado l 50 mg q8h prn Anxiety 90472553 F41.1 lorazepam 1 mg bid prnfu PCP Gastroesop hageal reflux disease 011471929 K21.9 Dexilant 60 mg dailyfu as outpatient Health Concerns Section Related Observation LastModified by Organization Detai ls LastModified Time None Recorded Concern Status LastModified by Organization Details LastModified Time None Recorded Advance Directives Directive Y: FULL CODE- use dialysis, nutrtition and hydration Payers Encounter Date Sequence Insurance Name Policy Number Policy Cramer Covered Member ID Cramer Member ID Guarantor Name 08/04/2018 1 [facility] - DOS PRIOR TO 2022 - DUAL ELIGIBLE (MEDICARE REPLACEMENT/AD VANTAGE - HMO) Lois Dalton [id number] Lois Dalton 08/04/2018 2 [place] [facility] Lois Dalton [id number] Lois Dalton 08/06/2018 1 [facility] - DOS PRIOR TO 2022 - DUAL ELIGIBLE (MEDICARE REPLACEMENT/AD VANTAGE - HMO) Lois Dalton [id number] Lois Dalton 08/06/2018 2 [place] [facility] Lois Dalton [id number] Lois Dalton Notes Date Note Type Note Provider Name and Address Organization Details Recorded Time 9 text/html A 63 year old female being seen for a initial intake note. Patient had an elective right knee replacement at [facility] on 07/26/18. She went home with vna despite attempts to get her to go to rehab. She attempted to get up out of her chair and walker was not locked causing her to fall. She then was able to ambulate for several days then ran out of pain medication. She went to [facility] er to get pain under control. X-ray and ultrasound were negative. While in the hospital she complained of burning on urination and frequency. A urine sample was sent which was positive for a UTI. She was sent here for some short term rehab. Medical history of constipation, anxiety/depression, HTN, DM, GERD, asthma, hypercholesterolemia and hormone replacement. SARAH MATIAS [address] [address], [place], [address], [employer] 08/04/2018 09:42:29 9 text/html 63 year old female admitted to [facility] 08/03/18 for rehab after TKR 07/26/18. Patient had been discharged home 07/29/18 with VNA services after TKR and fell when attempted to get up out of chair when walker was not locked causing a fall. She was able to ambulate for several days then ran out of pain medication. She went to [facility] ER to get pain under control. X-ray and ultrasound were negative. While in the hospital she complained of burning on urination and frequency. A urine sample was sent which was positive for a UTI. She was sent here for some short term rehab. Medical history of constipation, anxiety/depression, HTN, DM, GERD, asthma, hypercholesterolemia and hormone replacement. Patient has done with PT/OT here at [facility] and is now ready for discharge with VNA services at home. Advance directives: full code Eliza Garza MD [address] [place] [address], [address], [place], [address], [employer] 08/06/2018 11:52:07 OBGyn Episode No OBEpisode recorded.
== END 2024-06-28 13:24 | disposition home or self-care (01) ==
LOC: HO.ENCR 12:48
PROVIDERS: PCP Nurse Practitioner Primary Care; Visit Provider Physician Assistant Medical
DX: E11.42 Type 2 diabetes mellitus with diabetic polyneuropathy (principal); Z79.4 Long term (current) use of insulin

== ENCOUNTER → 2024-06-28 12:48 | Outpatient (BNVA) | payer OTHER, SELFPAY | PROVIDERS: PCP Nurse Practitioner Primary Care; Visit Provider Physician Assistant Medical | DX: E11.42 Type 2 diabetes mellitus with diabetic polyneuropathy (principal); E03.9 Hypothyroidism, unspecified; E21.3 Hyperparathyroidism, unspecified; E78.5 Hyperlipidemia, unspecified; Z79.4 Long term (current) use of insulin | CPT/HCPCS: 82947; 99212 ==

== ENCOUNTER → 2024-07-07 12:15 | Outpatient (BNV) | payer OTHER, SELFPAY | PROVIDERS: PCP Nurse Practitioner Primary Care; Visit Provider Internal Medicine | DX: Z12.31 Encounter for screening mammogram for malignant neoplasm of breast (principal) | CPT/HCPCS: 77063; 77067 ==

== ENCOUNTER 2024-07-07 12:19 | Outpatient (REF) | payer OTHER, SELFPAY ==
--- OUTSIDE RECORDS SUMMARY | 2024-07-07 14:37 | XMS_ITS | Encounter Summary ---
Author Organization [employer] Address [address] [place] [address] Care Team Providers Care Manager Laundry Name Role Phone Breanna Zmaudio Primary Care Provider [phone] Encounter Details Date Type Department Care Team ([facility] st Contact Info) Description 07/06/2024 Refill [facility] CHC MED & PEDS [address] [place], [place] [phone] Sis Coppola, RN [address] [place], [place] [phone] Neuropathic pain (Primary Dx); Ischemic colitis (CMS/HCC); Osteoarthritis of multiple joints, unspecified osteoarthritis type Social History Tobacco Use Types Packs/Day Years [...] Telephone Encounter - Sis Coppola RN - 07/06/2024 11:15 AM EDT Fyi. Tc to pt again, no answer. Called via BLS ID# [id number], Shane. Lvm for pt to c/b and schedule MILITARY TECHNOLOGY SPECIALIST appt. Queuing 2 weeks supply. F/u with you 08/09/24. documented in this encounter Plan of Treatment Upcoming Encounters Date Type Department Care Team (Late st Contact Info) Description 08/09/2024 1:00 PM EDT Office Visit [facility] MEDICINE [address] [place] [address] Breanna Zamudio ANP [address] [place] [address] documented as of this encounter Visit Diagnoses Diagnosis Neuropathic pain- Primary Ischemic colitis (CMS/HCC) Osteoarthritis of multiple joints, unspecified osteoarthritis type documented in this encounter Care Teams Manager Laundry Relationship Specialty Start Date End Date Breanna Zamudio ANP [address] [place] [address] PCP - General Family Medicine 10/03/19 [facility] 07/31/23 documented as of this encounter
--- OUTSIDE RECORDS SUMMARY | 2024-07-07 14:37 | XMS_ITS | Encounter Summary ---
Author Organization [employer] Address [address] [facility] 7t [place] [address] Care Team Providers Care Sports Teacher Name Role Phone Breanna Zamudio Primary Care Provider [phone] Encounter Details Date Type Department Care Team (Late st Contact Info) Description 03/19/2022 Orders Only [facility] CHC MED & PEDS [address] [place], [place] [phone] Breanna Zamudio ANP [address] [place] [address] Moderate persistent asthma without complication (Primary Dx) [...] 1:00 PM EDT Office Visit [facility] MEDICINE [address] [place] [address] Breanna Zamudio ANP [address] [place] [address] documented as of this encounter Visit Diagnoses Diagnosis Moderate persistent asthma without complication- Primary documented in this encounter Care Teams Sports Teacher Relationship Specialty Start Date End Date Breanna Zamudio ANP [address] [place] [address] PCP - General Family Medicine 10/03/19 [facility] 07/31/23 documented as of this encounter
--- OUTSIDE RECORDS SUMMARY | 2024-07-07 14:37 | XMS_ITS | Encounter Summary ---
Author Organization [employer] [facility] Address [address] [facility] 7t [place] [address] Care Team Providers Care Pumper Gager Name Role Phone Breanna Zamudio Primary Care Provider [phone] Reason for Visit * Reason Comments Med Refill Encounter Details Date Type Department Care Team (Late st Contact Info) Description 11/21/2022 Refill [facility] MEDICINE [address] [place] [phone] Breanna Zamudio ANP [address] [place], [place] [phone] Pain in unspecified joint Social History Tobacco [...] Description 08/09/2024 1:00 PM EDT Office Visit [facility] MEDICINE [address] [place] [phone] Breanna Zamudio ANP [address] [place], [place] [phone] documented as of this encounter Visit Diagnoses Diagnosis Pain in unspecified joint documented in this encounter Care Teams Pumper Gager Relationship Specialty Start Date End Date Breanna Zamudio ANP [address] [place] [address] PCP - General Family Medicine 10/03/19 [facility] 07/31/23 documented as of this encounter
--- OUTSIDE RECORDS SUMMARY | 2024-07-07 14:37 | XMS_ITS | Encounter Summary ---
Author Organization [employer] Address [address]t [place] [address] Care Team Providers Care Special Education Inclusion Teacher Name Role Phone Breanna Zamudio Primary Care Provider [phone] Encounter Details Date Type Department Care Team ([facility] st Contact Info) Description 08/06/2023 Telephone [facility] MEDICINE [address] [place], [place] [phone] Breanna Zamudio ANP [address] [place], [place] [phone] Social History Tobacco Use Types Packs/Day Years [...] 1:00 PM EDT Office Visit [facility] MEDICINE [address] [place] [address] Breanna Zamudio ANP [address] [place] [address] documented as of this encounter Visit Diagnoses Not on filedocumented in this encounter Care Teams Special Education Inclusion Teacher Relationship Specialty Start Date End Date Breanna Zamudio ANP [address] [place] [address] PCP - General Family Medicine 10/03/19 [facility] 07/31/23 documented as of this encounter
--- OUTSIDE RECORDS SUMMARY | 2024-07-07 14:37 | XMS_ITS | Encounter Summary ---
Author Organization [employer] Address [address]t [place] [address] Care Team Providers Care Chemical Laboratory Assistant Name Role Phone Breanna Zamudio Primary Care Provider [phone] Encounter Details Date Type Department Care Team ([facility] Contact Info) Description 07/05/2024 Telephone [facility] CHC MED & PEDS [address] [place] [address] Sis Coppola, RN [address] [place] [address] Social History Tobacco Use Types Packs/Day Years [...] encounter Miscellaneous Notes * Telephone Encounter - RICARDO Caraballo - 07/06/2024 11:06 AM EDT We can refill 2 week rx with need for visit * Telephone Encounter - Sis Coppola RN - 07/05/2024 3:46 PM EDT Pt requesting refill of Oxycodone 10mg. Multiple TC to pt to schedule CAT DOG OR OTHER PET GROOMER appt. Appt that was scheduled on 06/14/24 was cancelled by pt so were the previous CAT DOG OR OTHER PET GROOMER appts. No c/b to r/s. Please advise. F/sarahith you 08/09/24. documented in this encounter Plan of Treatment Upcoming Encounters Date Type Department Care Team (Late st Contact Info) Description 08/09/2024 1:00 PM EDT Office Visit [facility] MEDICINE [address] [place] [address] Breanna Zamudio ANP [address] [place] [address] documented as of this encounter Visit Diagnoses Not on filedocumented in this encounter Care Teams Chemical Laboratory Assistant Relationship Specialty Start Date End Date Breanna Zamudio ANP [address] [place] [address] PCP - General Family Medicine 10/03/19 [facility] 07/31/23 documented as of this encounter
--- OUTSIDE RECORDS SUMMARY | 2024-07-07 14:37 | XMS_ITS | Encounter Summary ---
Author Organization [employer] Address [address] [place] [address] Care Team Providers Care Oil Field Laborer Name Role Phone Breanna Zamudio Primary Care Provider Reason for Visit * Reason Onset Date Comments Appointment Request 04/11/2024 Encounter Details Date Type Department Care Team ([facility] st Contact Info) Description 04/11/2024 Telephone [facility] MEDICINE [address] [place], [place] [phone] Breanna Zamudio ANP [address] [place], [place] [phone] Appointment Request Social History Tobacco Use Types [...] Tc from pt spouse requesting to r/s IMPROVEMENT COORDINATOR visit. Contact pt at [phone](danish) documented in this encounter Plan of Treatment Upcoming Encounters Date Type Department Care Team (Late st Contact Info) Description 08/09/2024 1:00 PM EDT Office Visit [facility] MEDICINE [address] [place] [address] Breanna Zamudio ANP [address] [place] [address] documented as of this encounter Visit Diagnoses Not on filedocumented in this encounter Care Teams Oil Field Laborer Relationship Specialty Start Date End Date Breanna Zamudio ANP [address] [place] [address] PCP - General Family Medicine 10/03/19 [facility] 07/31/23 documented as of this encounter
--- OUTSIDE RECORDS SUMMARY | 2024-07-07 14:37 | XMS_ITS | Encounter Summary ---
Author Organization [employer] Address [address] [place] [address] Care Team Providers Care Chemist Enzymes Name Role Phone Breanna Zamudio Primary Care Provider Reason for Visit * Reason Onset Date Comments FYI 08/31/2023 Encounter Details Date Type Department Care Team ([facility] st Contact Info) Description 08/31/2023 Telephone [facility] MEDICINE [address] [place], [place] [phone] Breanna Zamudio ANP [address] [place], [place] [phone] FYI Social History Tobacco Use Types Packs/Day [...] EDT Tc from Caroline (Physical Therapist) with [facility] calling to inform pt is getting discharge as of today from PT services. Any questions [phone] documented in this encounter Plan of Treatment Upcoming Encounters Date Type Department Care Team (Late st Contact Info) Description 08/09/2024 1:00 PM EDT Office Visit [facility] MEDICINE [address] [place] [address] Breanna Zamudio ANP [address] [place] [address] documented as of this encounter Visit Diagnoses Not on filedocumented in this encounter Care Teams Chemist Enzymes Relationship Specialty Start Date End Date Breanna Zamudio ANP [address] [place] [address] PCP - General Family Medicine 10/03/19 [facility] 07/31/23 documented as of this encounter
--- OUTSIDE RECORDS SUMMARY | 2024-07-07 14:37 | XMS_ITS | Encounter Summary ---
Author Organization [employer] Address [address] [facility] 7t [place] [address] Care Team Providers Care Branch Controller Name Role Phone Breanna Zamudio Primary Care Provider Reason for Visit * Reason Onset Date Comments Durable Medical Equipment 09/08/2022 Encounter Details Date Type Department Care Team (Late st Contact Info) Description 09/08/2022 Telephone [facility] MEDICINE [address] [place], [place] [phone] Breanna Zamudio ANP [address] [place] [address] Durable Medical Equipment Social History Tobacco Use [...] machines, please see notes,. Please contact at [phone] Indonesian * Telephone Encounter - RICARDO Caraballo - 09/19/2022 6:26 PM EDT Yes, of course. Thank you. Will place signed RX on your desk. * Telephone Encounter - Madhuri Doe - 09/18/2022 1:56 PM EDT Tc from [facility] with [facility] requesting status on nebulizer. States if script has not been sent to [facility], fax to [facility]. FAX: [phone] Please contact [facility] at [phone] ext [phone] * Telephone Encounter - Rosalinda Rucker - 09/08/2022 3:29 PM EDT Tc from patient requesting a new script for a nebulizer machine. States current one broke. documented in this encounter Plan of Treatment Upcoming Encounters Date Type Department Care Team (Late st Contact Info) Description 08/09/2024 1:00 PM EDT Office Visit [facility] MEDICINE [address] [place] [address] Breanna Zamudio ANP [address] [place] [address] documented as of this encounter Visit Diagnoses Not on filedocumented in this encounter Care Teams Branch Controller Relationship Specialty Start Date End Date Breanna Zamudio ANP [address] [place] [address] PCP - General Family Medicine 10/03/19 [facility] 07/31/23 documented as of this encounter
--- OUTSIDE RECORDS SUMMARY | 2024-07-07 14:37 | XMS_ITS | Encounter Summary ---
Author Organization [employer] Address [address] 7[address] [place] [address] Care Team Providers Care Venture Capitalist Name Role Phone Breanna Zamudio Primary Care Provider [phone] Reason for Visit * Reason Onset Date Comments Med Refill 03/15/2024 Encounter Details Date Type Department Care Team (Late st Contact Info) Description 03/15/2024 Telephone [facility] MEDICINE [address] [place], [place] [phone] Breanna Zamudio ANP [address] [employer], [place] [phone] Med Refill Social History Tobacco Use Types [...] immediate release tablet To be sent to: [facility] documented in this encounter Plan of Treatment Upcoming Encounters Date Type Department Care Team (Late st Contact Info) Description 08/09/2024 1:00 PM EDT Office Visit [facility] MEDICINE [address] [place] [address] Breanna Zamudio ANP [address] [place] [address] documented as of this encounter Visit Diagnoses Not on filedocumented in this encounter Care Teams Venture Capitalist Relationship Specialty Start Date End Date Breanna Zamudio ANP [address] [place] [address] PCP - General Family Medicine 10/03/19 [facility] 07/31/23 documented as of this encounter
--- OUTSIDE RECORDS SUMMARY | 2024-07-07 14:37 | XMS_ITS | Encounter Summary ---
Author Organization [employer] Address [address] [place] [address] Care Team Providers Care Tipping Machine Operator Automatic Name Role Phone Breanna Zamudio Primary Care Provider [phone] Encounter Details Date Type Department Care Team ([facility] st Contact Info) Description 08/31/2023 Telephone [facility] MEDICINE [address] [place], [place] [phone] Breanna Zamudio ANP [address] [place] [address] Social History Tobacco Use Types Packs/Day Years [...] Description 08/09/2024 1:00 PM EDT Office Visit [facility] MEDICINE [address] [place] [phone] Breanna Zamudio ANP [address] [place] [address] documented as of this encounter Visit Diagnoses Not on filedocumented in this encounter Care Teams Tipping Machine Operator Automatic Relationship Specialty Start Date End Date Breanna Zamudio ANP [address] [place] [address] PCP - General Family Medicine 10/03/19 [facility] 07/31/23 documented as of this encounter
--- OUTSIDE RECORDS SUMMARY | 2024-07-07 14:37 | XMS_ITS | Encounter Summary ---
Author Organization [employer] Address [address] [facility] [address] [place] [address] Care Team Providers Care Director Sales Name Role Phone Breanna Zamudio Primary Care Provider [phone] Reason for Visit * Reason Comments Med Refill Encounter Details Date Type Department Care Team (Late st Contact Info) Description 04/07/2022 Refill [facility] [address] [place], [place] [phone] Breanna Zamudio ANP 230 [place], [place] [phone] Pain in unspecified joint Social History Tobacco [...] Upcoming Encounters Date Type Department Care Team ([facility] Contact Info) Description 08/09/2024 1:00 PM EDT Office Visit [facility] MEDICINE 230 [place], [place] [phone] Breanna Zamudio ANP [address] [place] [address] documented as of this encounter Visit Diagnoses Diagnosis Pain in unspecified joint documented in this encounter Care Teams Director Sales Relationship Specialty Start Date End Date Breanna Zamudio ANP 230 [place] [address] PCP - General Family Medicine 10/03/19 [facility] 07/31/23 documented as of this encounter
--- OUTSIDE RECORDS SUMMARY | 2024-07-07 14:37 | XMS_ITS | Encounter Summary ---
Author Organization [employer] Address [address] [place] [address] Care Team Providers Care Medical Practice Manager Name Role Phone Breanna Zamudio Primary Care Provider [phone] Reason for Visit * Reason Comments Med Refill Encounter Details Date Type Department Care Team (Late st Contact Info) Description 08/24/2023 Refill [facility] MEDICINE 230 [place], [place] [phone] Breanna Zamudio ANP 230 [place], [place] [phone] Ischemic colitis ([facility]) Social History Tobacco Use Types Packs/Day Years [...] Description 08/09/2024 1:00 PM EDT Office Visit [facility] MEDICINE [address] [place] [address] Breanna Zamudio ANP [address] [place] [address] documented as of this encounter Visit Diagnoses Diagnosis Ischemic colitis (CMS/HCC) documented in this encounter Care Teams Medical Practice Manager Relationship Specialty Start Date End Date Breanna Zamudio ANP [address] [place] [address] PCP - General Family Medicine 10/03/19 [facility] 07/31/23 documented as of this encounter
--- OUTSIDE RECORDS SUMMARY | 2024-07-07 14:37 | XMS_ITS | Encounter Summary ---
Author Organization [employer] Address [address] [place] [address] Care Team Providers Care Fried Cake Maker Name Role Phone Breanna Zamudio Primary Care Provider [phone] Reason for Visit * Reason Onset Date Comments Med Refill 04/11/2024 Encounter Details Date Type Department Care Team (Late st Contact Info) Description 04/11/2024 Telephone [facility] MEDICINE [address] [place], [place] [phone] Breanna Zamudio ANP 230 [place], [place] [phone] Med Refill Social History Tobacco Use Types [...] immediate release tablet To be sent to: [facility] *pt 04/18/24 to [place] because child is sick . Requesting 120 pill count documented in this encounter Plan of Treatment Upcoming Encounters Date Type Department Care Team (Late st Contact Info) Description 08/09/2024 1:00 PM EDT Office Visit [facility] MEDICINE [address] [place] [address] Breanna Zamudio ANP [address] [place] [address] documented as of this encounter Visit Diagnoses Not on filedocumented in this encounter Care Teams Fried Cake Maker Relationship Specialty Start Date End Date Breanna Zamudio ANP 230 [place] [address] PCP - General Family Medicine 10/03/19 [facility] 07/31/23 documented as of this encounter
--- OUTSIDE RECORDS SUMMARY | 2024-07-07 14:37 | XMS_ITS | Encounter Summary ---
Author Organization [employer] Address [address] [place] [address] Care Team Providers Care Vascular Technologist Sonographer Name Role Phone Breanna Zamudio Primary Care Provider [phone] Reason for Visit * Reason Onset Date Comments Med Refill 01/21/2024 Encounter Details Date Type Department Care Team (Late st Contact Info) Description 01/21/2024 Telephone [facility] MEDICINE 230 [place], [place] [phone] Breanna Zamudio ANP 230 [place], [place] [phone] Med Refill Social History Tobacco Use Types [...] release tablet To be sent to: [facility] - [place], [place] - [address] [place] [address] documented in this encounter Plan of Treatment Upcoming Encounters Date Type Department Care Team ([facility] st Contact Info) Description 08/09/2024 1:00 PM EDT Office Visit [facility] MEDICINE [address] [place] [address] Breanna Zamudio ANP [address] [place] [address] documented as of this encounter Visit Diagnoses Not on filedocumented in this encounter Care Teams Vascular Technologist Sonographer Relationship Specialty Start Date End Date Breanna Zamudio ANP 230 [place] [address] PCP - General Family Medicine 10/03/19 [facility] 07/31/23 documented as of this encounter
--- OUTSIDE RECORDS SUMMARY | 2024-07-07 14:37 | XMS_ITS | Encounter Summary ---
Author Organization [employer] Address [address] [place] [address] Care Team Providers Care Microbiology Director Name Role Phone Breanna Zamudio Primary Care Provider [phone] Reason for Visit * Reason Onset Date Comments Med Refill 11/18/2023 Encounter Details Date Type Department Care Team (Late st Contact Info) Description 11/18/2023 Telephone [facility] MEDICINE 230 [place], [place] [phone] Breanna Zamudio ANP [address] [place], [place] [phone] Med Refill Social History Tobacco Use Types [...] immediate release tablet To be sent to: [facility] - [place], [place] - [address] [place] [address] documented in this encounter Plan of Treatment Upcoming Encounters Date Type Department Care Team ([facility] st Contact Info) Description 08/09/2024 1:00 PM EDT Office Visit [facility] MEDICINE [address] [place] [address] Breanna Zamudio ANP [address] [place] [address] documented as of this encounter Visit Diagnoses Not on filedocumented in this encounter Care Teams Microbiology Director Relationship Specialty Start Date End Date Breanna Zamudio ANP [address] [place] [address] PCP - General Family Medicine 10/03/19 [facility] 07/31/23 documented as of this encounter
--- OUTSIDE RECORDS SUMMARY | 2024-07-07 14:37 | XMS_ITS | Encounter Summary ---
Author Organization [employer] Address [address] [place] [address] Care Team Providers Care Inventory Transcriber Name Role Phone Breanna Zamudio Primary Care Provider [phone] Reason for Visit * Reason Onset Date Comments Appointment Request 06/13/2024 Encounter Details Date Type Department Care Team ([facility] st Contact Info) Description 06/13/2024 Telephone [facility] MEDICINE [address] [place], [place] [phone] Breanna Zamudio ANP [address] [place], [place] [phone] Appointment Request Social History Tobacco Use Types [...] 2:32 PM EDT Tc from pt canceled [employer] appt due to being on vacation in [place] and would like to r/s after 07/08/24. documented in this encounter Plan of Treatment Upcoming Encounters Date Type Department Care Team (Late st Contact Info) Description 08/09/2024 1:00 PM EDT Office Visit [facility] MEDICINE [address] [place] [address] Breanna Zamudio ANP [address] [place] [address] documented as of this encounter Visit Diagnoses Not on filedocumented in this encounter Care Teams Inventory Transcriber Relationship Specialty Start Date End Date Breanna Zamudio ANP [address] [place] [address] PCP - General Family Medicine 10/03/19 [facility] 07/31/23 documented as of this encounter
--- OUTSIDE RECORDS SUMMARY | 2024-07-07 14:37 | XMS_ITS | Clinical Summary ---
Author Organization [employer] Address [address] [place] [address] Care Team Providers Care Cobol Programmer Name Role Phone Breanna Zamudio Primary Care Provider [phone] Allergies No known active allergies Medications Ventolin HFA 108 (90 Base) MCG/ACT inhaler Inhale 1 puff every 4 (four) hours if needed for wheezing. Active Alcohol Swabs (SM Alcohol Prep) 70 % pads USE TWICE DAILY DIRECTED Active Blood Glucose Monitoring Suppl (Validus-IVCTouch Verio Flex System) w/Device kit TEST BLOOD [...] 34 UNITS SUBCUTANEOUSLY EVERY EVENING Active Lancets (Validus-IVCTouch Delica Plus [id number]) misc TEST BLOOD SUGAR TWICE DAILY Active [...] day. 022 Active Respiratory Therapy Supplies (Nebulizer) deviceIndication s:Moderate persistent asthma without complication Use for albuterol every 4-6 hours as needed for asthma sx 1 each 023 Active Respiratory Therapy Supplies (Nebulizer/Tubin g/Mouthpiece) kitIndications:M oderate persistent asthma without complication Use w/ nebulizer 1 kit 1 023 Active Nebulizers (Proneb Ultra II/LC Plus) device Use with albuterol [address] capsuleIndicatio ns:Gastroesophag eal reflux disease without esophagitis Take 1 capsule [...] FOOD 180 tablet 3 023 Active Multiple Vitamins-Mineral s (CertaVite/Antio xidants) tablet TAKE 1 TABLET BY MOUTH EVERY DAY WITH FOOD 90 tablet 3 023 Active hydrOXYzine HCl (Atarax) 50 MG tablet TAKE 1 TABLET BY MOUTH EVERY 8 HOURS NEEDED FOR ANXIETY 270 tablet 1 023 Active Ozempic, 0.25 or 0.5 MG/DOSE, 2 MG/3ML solution pen-injector INJECT 0.5 MG SUBCUTANEOUSLY ONCE A WEEK 024 Active Continuous Glucose Storm Chaser (FreeStyle Manuelito 2 Billings) device Use as directed 024 Active Continuous Glucose Sensor (FreeStyle Manuelito 2 Sensor) [facility] Every 2 weeks to monitor BG 024 Active Cyanocobalamin (Vitamin B-12) 1000 MCG sublingual tablet DISSOLVE 1 TABLET BY MOUTH DAILY 024 Active Eliquis 5 MG tabletIndication s:Acute deep vein thrombosis (DVT) of proximal vein of lower extremity, unspecified laterality (CMS/HCC),Multip le subsegmental pulmonary emboli without acute cor pulmonale (CMS/HCC) Take 1 tablet (5 mg) by mouth 2 times daily. 60 tablet 2 024 Active lisinopril 40 MG tabletIndication s:Essential hypertension Take 1 tablet (40 mg) by mouth Once per day. 90 tablet 3 024 Active acetaminophen (Tylenol 8 Hour) 650 MG ER tabletIndication s:Ischemic colitis ([facility]) TAKE 1 TABLET BY MOUTH EVERY 8 HOURS NEEDED SWALLOW WHOLE WITH WATER DO NOT BREAK, CRUSH, DISSOLVE OR CHEW 90 tablet 024 Active insulin pen needle (Pentips) 32G x 4 mm miscIndications: Hyperlipidemia associated with type 2 diabetes mellitus ([facility]) Use as instructed 100 each 5 024 Active glucose (BD Glucose) 5 g chewable tabletIndication s:Hyperlipidemia associated with type 2 diabetes mellitus ([facility]) Chew 3 tablets (15 g) if needed for low blood sugar. 50 tablet 12 024 2024 Active fluticasone (Flonase) 50 MCG/ACT nasal sprayIndications :COVID-19 INSTILL 1 SPRAY IN EACH NOSTRIL ONCE DAILY IN THE MORNING 16 g 2 024 Active Multiple Vitamins-Iron (Tab-A-Saima/Iron /Beta Carotene) tablet TAKE 1 TABLET BY MOUTH EVERY DAY WITH FOOD 90 tablet 3 024 Active traZODone (Desyrel) 150 MG tabletIndication s:Insomnia disorder with non-sleep disorder mental comorbidity TAKE 2 TABLETS BY MOUTH EVERY DAY AT BEDTIME 60 tablet 5 025 Active albuterol 0.63 MG/3ML nebulizer solutionIndicati ons:Moderate persistent asthma without complication INHALE 1 AMPULE USING A NEBULIZER EVERY 4 TO 6 HOURS NEEDED FOR WHEEZING OR SHORTNESS OF BREATH FOR ASTHMA 75 mL 2 025 Active levothyroxine (Synthroid, Levoxyl) 75 MCG tabletIndication s:Hypothyroidism , unspecified type TAKE 1 TABLET BY MOUTH EVERY DAY BEFORE BREAKFAST 90 tablet 1 025 Active metoprolol succinate XL (Toprol-XL) 200 MG 24 hr tabletIndication s:Essential hypertension TAKE 1 TABLET BY MOUTH EVERY MORNING 90 tablet 3 025 Active cloNIDine (Catapres) 0.1 MG tabletIndication s:Hot flashes TAKE 2 TABLETS BY MOUTH EVERY DAY AT BEDTIME 60 tablet 2 025 Active venlafaxine XR (Effexor XR) 150 MG 24 hr capsuleIndicatio ns:Mixed anxiety and depressive disorder Take 1 capsule once daily with 75mg capsule. Do not crush or chew. 90 capsule 1 025 Active venlafaxine XR (Effexor XR) 75 MG 24 hr capsuleIndicatio ns:Mixed anxiety and depressive disorder Take 1 capsule once daily with 150mg capsule. Do not crush or chew. 90 capsule 1 025 Active oxyCODONE (Roxicodone) 10 MG immediate release tabletIndication s:Neuropathic pain,Osteoarthri tis of multiple joints, unspecified osteoarthritis type Take 1 tablet (10 mg) by mouth every 6 (six) hours if needed for severe pain for up to 14 days. Do not start before July 08, 2024. 56 tablet 025 2024 Active cloNIDine (Catapres) 0.1 MG tabletIndication s:Hot flashes TAKE 2 TABLETS BY MOUTH AT BEDTIME 60 tablet 2 024 2024 Discontinued venlafaxine XR (Effexor XR) 225 MG 24 hr tabletIndication s:Mixed anxiety and depressive disorder Take 1 tablet (225 mg) by mouth with breakfast. Do not crush, chew, or split. 30 tablet 2 025 2024 Discontinued(F ormulary change) oxyCODONE (Roxicodone) 10 MG immediate release tabletIndication s:Ischemic colitis (CMS/HCC) Take 1 tablet (10 mg) by mouth every 6 (six) hours if needed for severe pain. Do not start before June 10, 2024. 120 tablet 025 2024 Discontinued(R eorder (will not trigger notification to Pharmacy)) oxyCODONE (Roxicodone) 10 MG immediate release tabletIndication s:Ischemic colitis (CMS/HCC) Take 1 tablet (10 mg) by mouth every 6 (six) hours if needed for severe pain. 120 tablet 025 2024 Discontinued(R eorder (will [...] AM EST): Rx Paxlovid x 5 days, [place] interactions module checked, she will hold Crestor [...] edema. I d/w patient that this a long term care pharmacist issue to fu with PCP, encouraged tight [...] Encounters Date Type Department Care Team Description 07/06/2024 Refill [facility] [address] [place] [address] Sis Coppola RN Neuropathic pain (Primary Dx); Ischemic colitis (CMS/HCC); Osteoarthritis of multiple joints, unspecified osteoarthritis type 07/05/2024 Telephone [facility] [address] [place] [address] Sis Coppola RN 07/05/2024 Telephone [facility] [address] [place] [phone] Breanna Zamudio ANP Med Refill 06/29/[address] [address] Bria Redmond RN Medication Change 06/28/2024 Orders Only [facility] [address] [place] [phone] Breanna Zamudio ANP Mixed anxiety and depressive disorder (Primary Dx) 06/28/2024 Orders Only GENERIC EXTERNAL DATA DEPARTMENT Provider, Generic External Data 06/22/2024 Refill [facility] [address] [place] [phone] Breanna Zamudio ANP Hot flashes 06/15/[address] [address] Breanna Zamudio ANP Prior Auth Prescription 06/15/[address] [address] Breanna Zamudio ANP Durable Medical Equipment 06/13/2024 Telephone [facility] [address] [place] [address] Sis Coppola, RN pipe smoking machine operator 06/13/[address] [address] Breanna Zamudio ANP Appointment Request 06/09/2024 Orders Only [facility] [address] [place] [phone] Breanna Zamudio ANP Ischemic colitis ([facility]) 06/06/2024 Refill [facility] [address] [place] [address] Breanna Zamudio ANP Ischemic colitis ([facility]/HCC) 05/12/2024 2:00 PM EST Office Visit [facility] [address] [place] [phone] Breanna Zamudio ANP Screening mammogram for breast cancer (Primary Dx); Hyperlipidemia associated with type 2 diabetes mellitus ([facility]/HCC) ([facility]); Insomnia disorder with non-sleep disorder mental comorbidity; Mixed anxiety and depressive disorder; Irritable bowel syndrome with diarrhea; Neuropathic pain; Bilateral leg edema; Hypertensive urgency; Mixed stress and urge urinary incontinence 05/12/2024 Travel 05/11/2024 Refill [facility] [address] [place] [address] Breanna Zamudio ANP Hypothyroidism, unspecified type; Essential hypertension 05/09/2024 Telephone [facility] [address] [place] [phone] Breanna Zamudio ANP Chart Prep 05/09/2024 Refill [facility] [address] [place] [address] Breanna Zamudio ANP Ischemic colitis ([facility]) 05/06/2024 Refill [facility] [address] [place] [address] Breanna Zamudio ANP Ischemic colitis ([facility]) 04/29/2024 Travel 04/29/2024 Telephone [facility] [address] [place] [address] Sis Coppola, RN pipe smoking machine operator 04/28/2024 Telephone [facility] [address] [place] [address] Sis Coppola, RN pipe smoking machine operator 04/26/2024 Orders Only GENERIC EXTERNAL DATA DEPARTMENT Provider, Generic External Data 04/18/2024 Orders Only GENERIC EXTERNAL DATA DEPARTMENT Provider, Generic External Data 04/18/2024 Refill [facility] [address] [place] [address] Breanna Zamudio ANP Moderate persistent asthma without complication 04/11/2024 Refill [facility] [address] [place] [address] Sis Coppola, AIDA Ischemic colitis ([facility]) 04/11/2024 Telephone [facility] [address] [place] [address] Breanna Zamudio ANP Med Refill 04/11/2024 Telephone [facility] [address] [place] [address] Breanna Zamudio ANP Appointment Request 04/09/2024 Refill [facility] [address] [place] [address] Marce Gross MD Insomnia disorder with non-sleep [...] Description 08/09/2024 1:00 PM EDT Office Visit [facility] [address] [place] [address] Breanna Zamudio ANP [address] [place], [place] [phone] Health Maintenance Due Date Last Done Comments [...] Screening 08/27/2024 08/28/2023 Influenza Vaccine (#1) 2024 , 04/02/2022, 03/10/2018, Additional history exists Postponed from [...] associated with type 2 diabetes mellitus (CMS/HCC) ([facility]) POCT GLUCOSE Routine 05/12/2024 1:55 PM EST Hyperlipidemia associated with type 2 diabetes mellitus (CMS/HCC) ([facility]) GLUCOSE, WHOLE BLOOD Routine 04/26/2024 1:34 PM [...] Whole Blood 145(H) 60 - 115 mg/dL [facility] Comment:METER #: [id number] 5Testing performed in the Endocrinology Department [address] , [address], [facility]. 06/28/2024 1:01 PM EDT 06/28/2024 1:05 PM EDT Generic External Data Provider LAB BLOOD ORDERAB LES Final Result [facility] [address] [place] [address] [phone] * (ABNORMAL) POCT HGB A1C (05/12/2024 1:58 PM EST) [facility] Hemoglobin A1C 7.4(A) 4.0 - 6.0 % QC Media Lot # [id number] Lot# Expiration Date , Blood 05/12/2024 1:58 PM EST Breanna Zamudio ANP POINT OF CARE TEST ENTER/EDIT OR DERABLES Final Result * POCT Glucose (05/12/2024 1:55 PM EST) [facility] Glucose Blood, POC 157 60 - 200 mg/dL QC Media Lot # [id number] Lot# Expiration Date [id number] Blood Capillary blood specimen / Unknown 05/12/2024 1:55 PM EST Breanna Zamudio ANP POINT OF CARE TEST ENTER/EDIT OR DERABLES Final Result * (ABNORMAL) Basic Metabolic Panel (04/18/2024 2:33 PM EST) [facility] Sodium 140 135 - 145 mmol/L [facility] Potassium 4.4 3.3 - 5.1 mmol/L [facility] Chloride 107 96 - 108 mmol/L [facility] Carbon Dioxide 26 22 - 29 mmol/L [facility] Anion Gap 11(L) 12 - 20 [facility] Urea Nitrogen (BUN) 12 9 - 16 mg/dL [facility] Creatinine, Serum 0.82 0.5 - 1.4 mg/dL [facility] Estimated Glomerular Filt Rate >60 [facility] Comment:Chronic Kidney Disea se: Estimated GFR < 60 mL/min/1.48b5Daqypf Kidney Disease: Estimated GFR < 15 mL/min/1.73m2 Glucose 198(H) 60 - 115 mg/dL [facility] Calcium 9.3 8.4 - 10.2 mg/dL [facility] 04/18/2024 2:33 PM EST 04/18/2024 2:33 PM EST us Generic External Data Provider LAB BLOOD ORDERAB LES Final Result Performing Organization Address City/[facility]/ZIP Co de Phone Number [facility] [address] [place] [address] [phone] * (ABNORMAL) Hm Colonoscopy (12/23/2022) Colonoscopy Abnormal( A) Normal [facility] Comment:tubular adenoma 12/23/2022 us Yuni Jeffery MD HEALTH MAINTENANCE Final Result Performing Organization Address City/[facility]/ZIP Co de Phone Number [facility] [address] [place] [address] [phone] * Albumin, Random Urine W/Creatinine (08/15/2022 1:45 PM EDT) Creatinine, Urine 50.16 mg/dL [facility] Microalbumin Urine 12.0 mg/L [facility] Microalbum Creatinine Ratio Ur 23.9 ug/mg cr [facility] Comment:Albumin/Creatinine R atio Reference Ranges: Normal: < 30 ug/mg creatinine Microalbuminuria: 30 - 300 ug/mg creatinineClinical Albuminuria: > 300 ug/mg creatinine 08/15/2022 1:45 PM EDT 08/15/2022 2:19 PM EDT [facility] External Provider LAB URI NE ORDERABLES Final Result Performing Organization Address [facility]/ZIP Co de Phone Number [facility] [address] [place] [phone] * Direct LDL (08/15/2022 12:35 PM EDT) LDL Direct 70 <100 mg/dL [facility] Comment:Greatly elevated Tri glycerides values (>1200 mg/dL)interfere with the dLDL assay. As no Triglyceridestesting was ordered, interpret results with caution.Desirable range <100 mg/dL for primary prevention;<70 mg/dL for patients with CHD or diabetic patientswith > or = 2 CHD risk factors.THIS TEST WAS PERFORMED AT:[address] [place] [id number] JAIME MD 08/15/2022 12:3 5 PM EDT 08/15/2022 12:36 PM EDT [facility] External Provider LAB BLO OD ORDERABLES Final Result Performing Organization Address [facility]/ZIP Co de Phone Number [facility] [address] [place] [phone] * 3D DIGITAL TONY SCR MAMMO 1 (12/07/2018 11:01 AM EDT) Anatomical Region Laterality Modality Breast Bilateral Mammography 12/07/2018 11:0 1 AM EDT Narrative 12/07/2018 11:04 AM EDT Refer to the Notes tab for result details [facility] Procedure: 3D DIGITAL TONY SCR MAMMO 1 Procedure Note ProviderTabatha MD - 06/07/2022 Refer to the Notes tab for result details [facility] Procedure: 3D DIGITAL TONY SCR MAMMO 1 Roger Bruno ADVANCED CLINICAL SPECIALIST IMG BI PROCEDURES Final Result from Last 3 Months or Most Recently Relevant to Health Maintenance Insurance [facility] Care Teams Cobol Programmer Relationship Specialty Start Date End Date Breanna Zamudio ANP [address] [place] [address] MICKEY Shane [id number] PCP - General Family Medicine 10/03/19 [facility] [place] 07/31/23
--- OUTSIDE RECORDS SUMMARY | 2024-07-07 14:37 | XMS_ITS | Data Portability ---
Author Organization [employer] Address [address] [place] [phone] Care Team Providers Care Auditor Appraiser Name Role Phone [facility] Referring Provider [phone] Assessment No assessment recorded. Plan of Treatment [...] mm[Hg] 181 mm[Hg] 84 mm[Hg] Not Available [employer] - production 2 22:38:03 Social History None [...] Code Diagnosis Note [id number] Nancy Garcia MD [address] [phone] 01/11/2022 21:15:51 01/14/2022 13:03:57 Diverticulitis [id number] K57.92 Pt recently diagnosed with diverticul itis [...] assessment and plan as documented by the housekeeping laundry worker. I provided real time medical direction for [...] Cramer Member ID Guarantor Name 01/11/2022 1 [facility] - DOS PRIOR TO 2022 - DUAL ELIGIBLE (MEDICARE REPLACEMENT/ADV ANTAGE - HMO) Lois Dalton [id number] Lois Dalton Notes Date Note Type Note Provider Name and Address Organization Details Recorded Time 01/11/2022 text/html [facility] Nursing Asse ssment: Chief Complaints: Abdominal Pain PMH: Hypertension, COPD/Asthma, Diabetes Allergies: No Known Comments: Family of member request [facility] visit for eval abdominal pain x 5 days eval at ED dx with diverticulitis taking antibiotics cont with pain deny fever/chills refuse ED ....................... ....................... ....................... ....................... ....................... ....................... ... Product Development Engineer Note: Community Product Development Engineer Shelly Ma SC6 dispatched to a yellow for a 66 yof w/ abd pain. Upon arrival, the pt was sitting up in bed, WILHELM X4, holding her abdomen and grimacing in pain. She stated that she went to the ED recently for abd pain and was diagnosed with diverticulitis, w/ imaging. Her sap business intelligence consultant recommended that she go to the ED. [...] ... Disposition: Fulfilled Nancy Garcia MD [address] [facility],[address], [place], [address], [employer] 01/13/2022 09:59:42 OBGyn Episode No OBEpisode recorded.
--- OUTSIDE RECORDS SUMMARY | 2024-07-07 14:37 | XMS_ITS | Encounter Summary ---
Author Organization [employer] Address [address] [facility] [address] [address] [place] [address] Care Team Providers Care Retail Buyer Name Role Phone Breanna Zamudio Primary Care Provider [phone] Reason for Visit * Reason Onset Date Comments Med Refill 02/27/2023 Encounter Details Date Type Department Care Team (Late st Contact Info) Description 02/27/2023 Telephone [facility] [address] [place], [place] [phone] Breanna Zamudio ANP [address] [place], [place] [phone] Med Refill Social History Tobacco Use Types [...] Description 08/09/2024 1:00 PM EDT Office Visit [facility] [address] [place] [address] Breanna Zamudio ANP [address] [place] [address] documented as of this encounter Visit Diagnoses Not on filedocumented in this encounter Care Teams Retail Buyer Relationship Specialty Start Date End Date Breanna Zamudio ANP [address] [place] [address] PCP - General Family Medicine 10/03/19 [facility] 07/31/23 documented as of this encounter
--- OUTSIDE RECORDS SUMMARY | 2024-07-07 14:37 | XMS_ITS | Encounter Summary ---
Author Organization [facility] Address [address] [facility] [address]t [place] [address] Care Team Providers Care Commercial Baking Teacher Name Role Phone Breanna Zamudio Primary Care Provider [phone] Reason for Visit * Reason Comments Med Refill Encounter Details Date Type Department Care Team (Late st Contact Info) Description 12/02/2022 Refill [facility] [address] [place] [phone] Breanna Zamudio ANP [address] [place], [place] [phone] Pain in unspecified joint Social History Tobacco [...] 1:00 PM EDT Office Visit [facility] [address] [place] [phone] Breanna Zamudio ANP [address] [place], [place] [phone] documented as of this encounter Visit Diagnoses Diagnosis Pain in unspecified joint documented in this encounter Care Teams Commercial Baking Teacher Relationship Specialty Start Date End Date Breanna Zamudio ANP [address] [place] [address] PCP - General Family Medicine 10/03/19 [facility] 07/31/23 documented as of this encounter
--- OUTSIDE RECORDS SUMMARY | 2024-07-07 14:37 | XMS_ITS | Encounter Summary ---
Author Organization [employer] Address [address] [place] [address] Care Team Providers Care Power Plant Electrician Name Role Phone Breanna Zamudio Primary Care Provider [phone] Reason for Visit * Reason Onset Date Comments Med Refill 10/27/2023 Encounter Details Date Type Department Care Team (Late st Contact Info) Description 10/27/2023 Telephone [facility] [address] [place], [place] [phone] Breanna Zamudio ANP [address] [place], [place] [phone] Med Refill Social History Tobacco Use Types [...] immediate release tablet To be sent to: [facility] Pharmacy documented in this encounter Plan of Treatment Upcoming Encounters Date Type Department Care Team (Late st Contact Info) Description 08/09/2024 1:00 PM EDT Office Visit [facility] [address] [place] [phone] Breanna Zamudio ANP [address] [place] [address] documented as of this encounter Visit Diagnoses Not on filedocumented in this encounter Care Teams Power Plant Electrician Relationship Specialty Start Date End Date Breanna Zamudio ANP [address] [place] [phone] PCP - General Family Medicine 10/03/19 [facility] [place] 07/31/23 documented as of this encounter
--- OUTSIDE RECORDS SUMMARY | 2024-07-07 14:37 | XMS_ITS | Encounter Summary ---
Author Organization [employer] Address [address] [place] [address] Care Team Providers Care Manager Facility Name Role Phone Breanna Zamudio Primary Care Provider [phone] Reason for Visit * Reason Onset Date Comments Appointment Request 12/18/2023 Encounter Details Date Type Department Care Team ([facility] st Contact Info) Description 12/18/2023 Telephone [facility] [address] [place], [place] [phone] Breanna Zamudio ANP [address] [place], [place] [phone] Appointment Request Social History Tobacco Use Types [...] feeling well and had to cancel todays PROGRAM MANAGER TRANSPORTATION visit . Would like to reschedule . documented in this encounter Plan of Treatment Upcoming Encounters Date Type Department Care Team (Late st Contact Info) Description 08/09/2024 1:00 PM EDT Office Visit [facility] [address] [place] [address] Breanna Zamudio ANP [address] [place] [address] documented as of this encounter Visit Diagnoses Not on filedocumented in this encounter Care Teams Manager Facility Relationship Specialty Start Date End Date Breanna Zamudio ANP [address] [place] [address] PCP - General Family Medicine 10/03/19 [facility] 07/31/23 documented as of this encounter
--- OUTSIDE RECORDS SUMMARY | 2024-07-07 14:37 | XMS_ITS | Encounter Summary ---
Author Organization [employer] Address [address] [place] [address] Care Team Providers Care Project Controls Scheduler Name Role Phone Breanna Zamudio Primary Care Provider [phone] Reason for Visit * Reason Comments Med Refill Encounter Details Date Type Department Care Team (Late st Contact Info) Description 08/24/2023 Refill [facility] MEDICINE [address] [place], [place] [phone] Breanna Zamudio ANP [address] [place], [place] [phone] Ischemic colitis ([facility]) Social History Tobacco Use Types Packs/Day [...] 1:00 PM EDT Office Visit [facility] MEDICINE [address] [place] [address] Breanna Zamudio ANP [address] [place] [address] documented as of this encounter Visit Diagnoses Diagnosis Ischemic colitis (CMS/HCC) documented in this encounter Care Teams Project Controls Scheduler Relationship Specialty Start Date End Date Breanna Zamudio ANP [address] [place] [address] PCP - General Family Medicine 10/03/19 [facility] 07/31/23 documented as of this encounter
--- OUTSIDE RECORDS SUMMARY | 2024-07-07 14:37 | XMS_ITS | Encounter Summary ---
Author Organization [employer] Address [address] [place] [address] Care Team Providers Care Soccer Commentator Name Role Phone Breanna Zamudio Primary Care Provider [phone] Reason for Visit * Reason Onset Date [...] her to return my call at ext [phone]. Encounter Details Date Type Department Care Team (Late st Contact Info) Description 05/06/2024 Refill [facility] [address] [place], [place] [phone] Breanna Zamudio ANP [address] [place] [address] Ischemic colitis (CMS/HCC) Social History [...] her to return my call at ext [phone]. * Telephone Encounter - Prisca Ramos MA [...] PM EDT Office Visit [facility] [address] [place] [address] Breanna Zamudio ANP [address] [place] [address] documented as of this encounter Visit Diagnoses Diagnosis Ischemic colitis (CMS/HCC) documented in this encounter Care Teams Soccer Commentator Relationship Specialty Start Date End Date Breanna Zamudio ANP [address] [place] [address] PCP - General Family Medicine 10/03/19 [facility] 07/31/23 documented as of this encounter
--- OUTSIDE RECORDS SUMMARY | 2024-07-07 14:37 | XMS_ITS | Encounter Summary ---
Author Organization [employer] Address [address] [place] [address] Care Team Providers Care Pe Manager Name Role Phone Breanna Zamudio Primary Care Provider [phone] Reason for Visit * Reason Onset Date Comments Med Refill 07/05/2024 Encounter Details Date Type Department Care Team (Late st Contact Info) Description 07/05/2024 Telephone [facility] MEDICINE [address] [place], [place] [phone] Breanna Zamudio ANP [address] [place], [place] [phone] Med Refill Social History Tobacco Use Types [...] * Telephone Encounter - Sushma Abreu - 07/05/2024 10:52 AM EDT TC from pt requesting medication refill. Medications needing refill : oxyCODONE (Roxicodone) 10 MG immediate release tablet To be sent to: [facility] - [place], [place] - [address] [place] [address] documented in this encounter Plan of Treatment Upcoming Encounters Date Type Department Care Team ([facility] st Contact Info) Description 08/09/2024 1:00 PM EDT Office Visit [facility] MEDICINE [address] [place] [address] Breanna Zamudio ANP [address] [place] [address] documented as of this encounter Visit Diagnoses Not on filedocumented in this encounter Care Teams Pe Manager Relationship Specialty Start Date End Date Breanna Zamudio ANP [address] [place] [address] PCP - General Family Medicine 10/03/19 [facility] 07/31/23 documented as of this encounter
--- OUTSIDE RECORDS SUMMARY | 2024-07-07 14:38 | XMS_ITS | Data Portability ---
Author Organization [facility] [employer] [facility], Main Office Address [address] [place] [address] Care Team Providers Care Crushing Mill Operator Name Role Phone SANDRITA BEARDEN 1ST FLOOR OTHER [phone] ALBANIA CIFUENTES Primary Care Provider [phone] Assessment Encounter Date Assessment Date Assessment LastModified by Organization Details LastModified Time 08/04/2018 08/04/2018 Hgb 11.5, Hct 34.7 in hospital [facility] Not available 08/04/2018 08:51:23 Plan of [...] By Organization Details Last Modified Time 08/06/2018 [id number] Also, for PCP to evaluate whether or [...] knee joint Active 2018 SARAH MATIAS [address] , [address], [place], [address], [facility] 9 08:19:48 Asthma 371162214 Active 2018 SARAH MATIAS [address], [place], [address], [facility] 9 08:23:00 Gastroesophage al reflux disease without esophagitis 338925215 Active 2018 SARAH MATIAS [address], [place], [address], [employer] [facility] 9 08:23:06 Essential hypertension 81208281 Active 2018 SARAH MATIAS [address], [place], [address], [employer] [facility] 9 08:23:16 Hypothyroidism 01561927 Active 2018 SARAH MATIAS [address], [place], [address], [facility] 9 08:23:25 Type 2 diabetes mellitus 98439412 Active 2018 SARAH MATIAS [address], [place], [address], [facility] 9 08:23:34 Anxiety 49443372 Active 2018 SARAH MATIAS [address], [place], [address], [facility] 9 08:24:11 Hormone therapy Active [address], [place], [address], [facility] 9 08:24:30 Chronic constipation 447295156 Active [address], [place], [address], [facility] 9 08:25:50 Acute urinary tract infection 834028027 Active 2018 SARAH MATIAS [address], [place], [address], [facility] 9 08:26:59 Hypercholester olemia 86944480 Active 2018 SARAH MATIAS [address], [place], [address], [facility] 9 08:28:38 Depressive disorder 50792015 Active 2018 HILARIA SARAH SOMMER [address] [facility], [address], [place], [address], [employer] 9 08:42:14 Falls 630488299 Active 2018 HILARIA SARAH SOMMER [address] [facility], [address], [place], [address], [facility] 9 09:41:31 Gastroesophage al reflux disease 228400333 Active 2018 Eliza Garza MD [address] [facility], [address], [place], [address], [employer] 9 11:39:19 Problem Notes None recorded. Medical [...] 156 mm[Hg] 70 mm[Hg] SARAH MATIAS [address] [facility], [address], [place], [address], [employer] 9 08:17:26 Date Recorded Systolic blood pressure Diastolic blood pressure Provider Name and Address Organization Details Last Updated DateTime 08/06/2018 156 mm[Hg] 70 mm[Hg] Eliza Garza MD [address] [facility], [address], [place], [address], [employer] 08/06/2018 11:18:46 Social History Question Answer Notes LastModified by Organizat ion Details LastModified Time Tobacco Smoking Status Never Smoker Not Available [employer] 01/10/2020 03:13:23 Do You Have An Advance Directive? Yes FULL CODE- Use Dialysis, Nutrtition And Hydration [id number] Information not available 01/10/2020 What Is Your Level Of Alcohol Consumption? None [id number] Information not available 01/10/2020 How Much Tobacco Do You Chew? None [id number] Information not available 01/10/2020 Do You Have A Medical Power Of Geosc[employer] Laboratory Technician? Yes HCP On File [id number] Information not available 01/10/2020 What Was The Date Of Your Most Recent Tobacco Screening? 08/04/2018 [id number] Information not available 01/10/2020 Sex: Unknown Functional Status None recorded. Mental Status None recorded. Family History Nothing Reported. Medical History No medical history recorded. Gynecological HistoryNo gynecological history recorded. Obstetrics History GPAL:G 0 P 0 0 0 0 Immunizations Vaccine Type Date Status Note Provider Nam e and Address Organization Details Recorded Time Hep B, unspecified formulation 7 completed Dannaromi Ocampo [facility] 07/21/2023 15:47:49 Hep B, unspecified formulation 8 completed Danna Terrence [facility] 07/21/2023 15:47:57 Tdap 7 completed Danna Terrence [facility] 07/21/2023 15:48:12 Td(adult) unspecified formulation 7 completed Danna Terrence [facility] 07/21/2023 15:48:25 Pneumococcal conjugate PCV20, polysaccharide PMF433 conjugate, adjuvant, PF 3 completed Danna Ocampo [facility] 07/21/2023 15:53:08 influenza, unspecified formulation 3 completed Danna Ocampo [facility] 07/21/2023 16:00:43 influenza, unspecified formulation 3 completed Danna Ocampo [facility] 07/21/2023 16:01:16 Hep A, unspecified formulation 7 completed Danna Ocampo [facility] 07/21/2023 16:08:25 Hep A, unspecified formulation 8 completed Danna Ocampo [facility] 07/21/2023 16:08:36 SARS-COV-2 (COVID-19) vaccine, UNSPECIFIED 1 completed Danna Ocampo [facility] 07/21/2023 16:11:09 SARS-COV-2 (COVID-19) vaccine, UNSPECIFIED 1 completed Danna [facility] 07/21/2023 16:11:19 SARS-COV-2 (COVID-19) vaccine, UNSPECIFIED 2 completed Danna [facility] 07/21/2023 16:11:32 SARS-COV-2 (COVID-19) vaccine, UNSPECIFIED 3 completed Danna [facility] 07/21/2023 16:12:34 zoster, unspecified formulation [facility] 16:12:52 Past Encounters Encounter ID Performer Location Encounter Start Date Encounter Closed Date Diagnosis/Indication Diagnosis SNOMED-CT Code Diagnosis ICD10 Code Diagnosis Note [id number] SARAH MATIAS [address] [address] 08/04/2018 08:13:08 08/06/2018 15:43:41 Replacement of total knee joint 252024792 Z96.651 PT/OT eval and treat for gait training and strengthen ingROM 0-120WBATl imit stair climbingno showersuse a walkerkeep aquacel dressing clean and intactoxyc odone 10 mg q 4 hrs prnultram 50 mg q 6 hrs prntylenol 650 mg q 6 hrs scheduledA SA 325 mg bid x 15 dayspost op appt with ortho on 08/11/18 Acute urin gael tract infection 227050301 N30.00 keflex 500 mg bid x 5 daysmonito r for resolution Asthma 167581343 J45.99 8 albuterol hfa 1-2 puffs q 4 hrs prnqvar 40 mcg 2 puffs bidmonitor for respirator y symptoms Gastroesop hageal reflux disease without esophagitis 956541522 K21.9 dexlansopr azole 60 mg qdmonitor for symptoms Type 2 radha betes mellitus 09149536 E11.9 trulicity 1.5 mg q weekglybur lima 1.25 mg qdlantus 28 units q pmmetformi n er 500 mg q am and 1000 mg q pmmonitor for s/s of hypo/hyper glycemia Essential hypertension 64901618 I10 lasix 20 mg qdHCTZ 50 mg qdlisinopr il 40 mg qdmetoprol ol succinate 200 mg qdverapami l er 360 mg qdmonitor b/p and pulse Hypothyroidism 69684800 E03.8 levothyrox ine 75 mcg qdmonitor TSH Hormone re placement therapy 013537040 Z79.890 estradiol 1 mg qdmonitor Anxiety 52108700 F41.1 atarax 50 mg q 6 hrs prnativan 1 mg bid prndiscuss ed risk vs benefit of ativan with patientmon itor for anxiety Depressive disorder 3541 9237 F32.89 effexor 75 mg bidtrazodo ne 50 mg q hsdiscusse d risk vs benefit of effexor and trazodone with patientmon itor moodpsych eval and treat prn Chronic constipation 236 814067 K59.09 linaclotid e 72 mg qdmonitor constipati on with opioid use Hypercholesterolemia 136 20958 E78.2 crestor 20 mg q hsmonitor labs [place] 978843589 R29.6 PT/OT eval and treatmonit or for safetyenco urage walker use [id number] Eliza Garza MD [address] [address] 08/06/2018 11:17:07 08/11/2018 09:54:55 Asthma 674774851 J45.30 Qvar 1 puff bidprovent il HFA 2 puffs q4h prn Chronic constipation 236 847723 K59.09 good bowel regimenLin zess 72 mcg daily Depressive disorder 3548 9567 F32.89 trazodone 50 mg at hsvenlafax ine ER 75 mg dailyfu psych prn Hypothyroidism 01554398 E03.8 levothyrox ine 75 mcg dailyfu as outpatient Acute urin gael tract infection 949474560 N30.00 finish course cephalexin 500 mg bidencoura ge good hydrationf u prn Type 2 radha betes mellitus 90693882 E11.9 metformin ER 1000 mg in evening and ER 500 mg in morninggly buride 1.25 mg dailyLantu s 28U dailyTruli city 1.5mg once a week continue to monitor with PCP when outpatient Essential hypertension 78374535 I10 HCTZ 50 mg dailyfuros emide 20 mg dailymetop rolol XL 200 mg dailyverap armen 360 mg dailylisin opril 40 mg dailyfor PCP to evaluate as outpatient if 2 different diuretics are needed - may be able to d/c either HCTZ or furosemide History of total knee arthroplasty 7838281154 105 Z96.651 continue PT/OTAPAP prnASA 325 mg bidoxycodo ne 10 mg q4h prntramado l 50 mg q8h prn Anxiety 22403355 F41.1 lorazepam 1 mg bid prnfu PCP Gastroesop hageal reflux disease 710734030 K21.9 Dexilant 60 mg dailyfu as outpatient Health Concerns Section Related Observation LastModified by Organization Detai ls LastModified Time None Recorded Concern Status LastModified by Organization Details LastModified Time None Recorded Advance Directives Directive Y: FULL CODE- use dialysis, nutrtition and hydration Payers Encounter Date Sequence Insurance Name Policy Number Policy Cramer Covered Member ID Cramer Member ID Guarantor Name 08/04/2018 2 [place] [facility] Lois Dalton [id number] Lois Dalton 08/04/2018 1 [facility] - DOS PRIOR TO 2022 - DUAL ELIGIBLE (MEDICARE REPLACEMENT/AD VANTAGE - HMO) Lois Dalton [id number] Lois Dalton 08/06/2018 2 [place] [facility] Lois Dalton [id number] Lois Dalton 08/06/2018 1 [facility] PRIOR TO 06/14/2022 - DUAL ELIGIBLE (MEDICARE REPLACEMENT/AD VANTAGE - HMO) Lois Dalton [id number] Lois Dalton Notes Date Note Type Note Provider Name and Address Organization Details Recorded Time 9 text/html A 63 year old female being seen for a initial intake note. Patient had an elective right knee replacement at [facility] on 07/26/18. She went home with vna despite attempts to get her to go to rehab. She attempted to get up out of her chair and walker was not locked causing her to fall. She then was able to ambulate for several days then ran out of pain medication. She went to [facility] er to get pain under control. X-ray and ultrasound were negative. While in the hospital she complained of burning on urination and frequency. A urine sample was sent which was positive for a UTI. She was sent here for some short term rehab. Medical history of constipation, anxiety/depression, HTN, DM, GERD, asthma, hypercholesterolemia and hormone replacement. SARAH MATIAS [address] [facility] [address], [place], [address], [employer] 08/04/2018 09:42:29 9 text/html 63 year old female admitted to [facility] 08/03/18 for rehab after TKR 07/26/18. Patient had been discharged home 07/29/18 with VNA services after TKR and fell when attempted to get up out of chair when walker was not locked causing a fall. She was able to ambulate for several days then ran out of pain medication. She went to [facility] ER to get pain under control. X-ray and ultrasound were negative. While in the hospital she complained of burning on urination and frequency. A urine sample was sent which was positive for a UTI. She was sent here for some short term rehab. Medical history of constipation, anxiety/depression, HTN, DM, GERD, asthma, hypercholesterolemia and hormone replacement. Patient has done with PT/OT here at [facility] and is now ready for discharge with VNA services at home. Advance directives: full code Eliza Garza MD [address] [place] [address], [address], [place], [address], [employer] 08/06/2018 11:52:07 OBGyn Episode No OBEpisode recorded.
== END 2024-07-07 12:20 | disposition home or self-care (01) ==
LOC: HO.MAMMO 12:19
PROVIDERS: PCP Nurse Practitioner Primary Care; Visit Provider Nurse Practitioner Primary Care
DX: Z12.31 Encounter for screening mammogram for malignant neoplasm of breast (principal)
CPT/HCPCS: 77063; 77067

== ENCOUNTER 2024-08-09 13:47 | Outpatient (REF) | payer OTHER, SELFPAY ==
--- NOTE | ~2024-08-09 | XR_ITS ---
EXAMINATION: XR THORACIC SPINE CLINICAL INFORMATION: Acute right-sided low back pain without sciatica x 2 weeks COMPARISON: June 15, 2018. TECHNIQUE: 3 views of the thoracic spine were obtained. FINDINGS: Marginal osteophyte formation and syndesmophyte formation in the mid to lower thoracic spine. No acute cortical disruption or malalignment. No lytic or blastic lesions. Calcified plaque thoracic aorta. Vascular clips right upper quadrant abdomen. XR/XR thoracic spine 2V IMPRESSION: Multilevel spondylosis. Atherosclerosis, aorta. Probable status post cholecystectomy. Electronically signed by: Yves Ricardo MD 08/09/2024 02:05 PM EDT
--- OUTSIDE RECORDS SUMMARY | 2024-08-09 14:04 | XMS_ITS | Data Portability ---
Author Organization [facility] [employer] [facility], Main Office Address [address], [address] [place] [address] Care Team Providers Care Stock Preparation Operator Name Role Phone SANDRITA BEARDEN 1ST FLOOR OTHER [place] [employer] Primary Care Provider Assessment Encounter Date Assessment Date Assessment LastModified by Organization Details LastModified Time 08/04/2018 08/04/2018 Hgb 11.5, Hct 34.7 in hospital [facility] Not available 08/04/2018 08:51:23 Plan of [...] By Organization Details Last Modified Time 08/06/2018 [id number] Also, for PCP to evaluate whether or [...] knee joint Active 2018 SARAH MATIAS [address], [place], [address], [facility] [employer] 9 08:19:48 Asthma 479556246 Active 2018 SARAH MATIAS [address], [address], [place], [address], [facility] [employer] 9 08:23:00 Gastroesophage al reflux disease without esophagitis 214565884 Active 2018 SARAH MATIAS [address], [address], [place], [address], [facility] 9 08:23:06 Essential hypertension 17657118 Active 2018 SARAH MATIAS [address], [address], [place], [address], [facility] 9 08:23:16 Hypothyroidism 39846581 Active 2018 SARAH MATIAS [address], [address], [place], [address], [facility] 9 08:23:25 Type 2 diabetes mellitus 62975546 Active 2018 SARAH MATIAS [address], [address], [place], [address], [facility] 9 08:23:34 Anxiety 48668069 Active 2018 SARAH MATIAS [address], [place], [address], [facility] 9 08:24:11 Hormone therapy Active [address], [place], [address], [facility] 9 08:24:30 Chronic constipation 419908476 Active [address], [place], [address], [facility] 9 08:25:50 Acute urinary tract infection 666798093 Active 2018 SARAH MATIAS [address], [address], [place], [address], [facility] 9 08:26:59 Hypercholester olemia 21635412 Active 2018 SARAH MATIAS [address], [address], [place], [address], [facility] 9 08:28:38 Depressive disorder 17882153 Active 2018 HILARIA SARAH SOMMER [address], [address], [place], [address], [employer] 9 08:42:14 Falls 006543820 Active 2018 HILARIA SARAH SOMMER [address], [address], [place], [address], [employer] [employer] 9 09:41:31 Gastroesophage al reflux disease 466721560 Active 2018 Eliza Garza MD [address] [facility] [address] [facility] [address], [place], [address], [employer] 9 11:39:19 Problem Notes None recorded. Medical [...] in Arterial blood by Pulse oximetry Systolic And Diastolic Provider Name and Address Organization Details Last Updated DateTime 9 97.7 [degF] 84 /min 20 /min 96 % 96 % 156/70 mm[Hg] SARAH MATIAS [address] [facility] [facility] [address], [place], [address], [facility] 9 08:17:26 Date Recorded Systolic And Diastolic Provider Name and Address Organization Details Last Updated DateTime 08/06/2018 156/70 mm[Hg] Eliza Garza MD [address] [facility] [facility] [address], [place], [address], [facility] 08/06/2018 11:18:46 Social History Question Answer Notes LastModified by Organizat ion Details LastModified Time Tobacco Smoking Status Never Smoker Not Available [facility] 01/10/2020 03:13:23 Do You Have An Advance Directive? Yes FULL CODE- Use Dialysis, Nutrtition And Hydration [id number] Information not available 01/10/2020 How Much Tobacco Do You Chew? None [id number] Information not available 01/10/2020 Do You Have A Medical Power Of Appliance Sales Associate? Yes HCP On File [id number] Information not available 01/10/2020 What Was The Date Of Your Most Recent Tobacco Screening? 08/04/2018 [id number] Information not available 01/10/2020 Sex: Unknown Functional Status Question Answer Note LastModified by Organization D etails LastModified Time What is your level of alcohol consumption? None [id number] Information not available 01/10/2020 Mental Status None recorded. Family History Nothing Reported. Medical History No medical history recorded. Gynecological HistoryNo gynecological history recorded. Obstetrics History GPAL:G 0 P 0 0 0 0 Immunizations Vaccine Type Date Status Note Provider Nam e and Address Organization Details Recorded Time Hep B, unspecified formulation 7 completed Danna Terrence [facility] 07/21/2023 15:47:49 Hep B, unspecified formulation 8 completed Danna Terrence [facility] 07/21/2023 15:47:57 Tdap 7 completed Danna Terrence [facility] 07/21/2023 15:48:12 Td(adult) unspecified formulation 7 completed Danna Terrence [facility] 07/21/2023 15:48:25 Pneumococcal conjugate PCV20, polysaccharide TON883 conjugate, adjuvant, PF 3 completed Danna Terrence [facility] 07/21/2023 15:53:08 influenza, unspecified formulation 3 completed Danna Terrence [facility] 07/21/2023 16:00:43 influenza, unspecified formulation 3 completed Danna Terrence [facility] 07/21/2023 16:01:16 Hep A, unspecified formulation 7 completed Danna Terrence [facility] 07/21/2023 16:08:25 Hep A, unspecified formulation 8 completed Danna Ocampo [facility] 07/21/2023 16:08:36 SARS-COV-2 (COVID-19) vaccine, UNSPECIFIED 1 completed Danna Ocampo [facility] 07/21/2023 16:11:09 SARS-COV-2 (COVID-19) vaccine, UNSPECIFIED 1 completed Danna [facility] 07/21/2023 16:11:19 SARS-COV-2 (COVID-19) vaccine, UNSPECIFIED 2 completed Danna [facility] 07/21/2023 16:11:32 SARS-COV-2 (COVID-19) vaccine, UNSPECIFIED 3 completed Danna [facility] 07/21/2023 16:12:34 zoster, unspecified formulation [facility] 16:12:52 Past Encounters Encounter ID Performer Location Encounter Start Date Encounter Closed Date Diagnosis/Indication Diagnosis SNOMED-CT Code Diagnosis ICD10 Code Diagnosis Note [id number] SARAH MATIAS [address] [address] 08/04/2018 08:13:08 08/06/2018 15:43:41 Replacement of total knee joint 988727198 Z96.651 PT/OT eval and treat for gait training and strengthen ingROM 0-120WBATl imit stair climbingno showersuse a walkerkeep aquacel dressing clean and intactoxyc odone 10 mg q 4 hrs prnultram 50 mg q 6 hrs prntylenol 650 mg q 6 hrs scheduledA SA 325 mg bid x 15 dayspost op appt with ortho on 08/11/18 Acute urin gael tract infection 078010881 N30.00 keflex 500 mg bid x 5 daysmonito r for resolution Asthma 668168875 J45.99 8 albuterol hfa 1-2 puffs q 4 hrs prnqvar 40 mcg 2 puffs bidmonitor for respirator y symptoms Gastroesop hageal reflux disease without esophagitis 197229722 K21.9 dexlansopr azole 60 mg qdmonitor for symptoms Type 2 radha betes mellitus 53448727 E11.9 trulicity 1.5 mg q weekglybur lima 1.25 mg qdlantus 28 units q pmmetformi n er 500 mg q am and 1000 mg q pmmonitor for s/s of hypo/hyper glycemia Essential hypertension 57537986 I10 lasix 20 mg qdHCTZ 50 mg qdlisinopr il 40 mg qdmetoprol ol succinate 200 mg qdverapami l er 360 mg qdmonitor b/p and pulse Hypothyroidism 40001251 E03.8 levothyrox ine 75 mcg qdmonitor TSH Hormone re placement therapy 887115963 Z79.890 estradiol 1 mg qdmonitor Anxiety 58807356 F41.1 atarax 50 mg q 6 hrs prnativan 1 mg bid prndiscuss ed risk vs benefit of ativan with patientmon itor for anxiety Depressive disorder 3548 6627 F32.89 effexor 75 mg bidtrazodo ne 50 mg q hsdiscusse d risk vs benefit of effexor and trazodone with patientmon itor moodpsych eval and treat prn Chronic constipation 236 408449 K59.09 linaclotid e 72 mg qdmonitor constipati on with opioid use Hypercholesterolemia 136 34502 E78.2 crestor 20 mg q hsmonitor labs [place] 920135793 R29.6 PT/OT eval and treatmonit or for safetyenco urage walker use [id number] Eliza Garza MD [address] [address] 08/06/2018 11:17:07 08/11/2018 09:54:55 Asthma 613921614 J45.30 Qvar 1 puff bidprovent il HFA 2 puffs q4h prn Chronic constipation 236 070136 K59.09 good bowel regimenLin zess 72 mcg daily Depressive disorder 3549 9317 F32.89 trazodone 50 mg at hsvenlafax ine ER 75 mg dailyfu psych prn Hypothyroidism 84295115 E03.8 levothyrox ine 75 mcg dailyfu as outpatient Acute urin gael tract infection 385085165 N30.00 finish course cephalexin 500 mg bidencoura ge good hydrationf u prn Type 2 radha betes mellitus 87235165 E11.9 metformin ER 1000 mg in evening and ER 500 mg in morninggly buride 1.25 mg dailyLantu s 28U dailyTruli city 1.5mg once a week continue to monitor with PCP when outpatient Essential hypertension 53548852 I10 HCTZ 50 mg dailyfuros emide 20 mg dailymetop rolol XL 200 mg dailyverap armen 360 mg dailylisin opril 40 mg dailyfor PCP to evaluate as outpatient if 2 different diuretics are needed - may be able to d/c either HCTZ or furosemide History of total knee arthroplasty 7569685355 105 Z96.651 continue PT/OTAPAP prnASA 325 mg bidoxycodo ne 10 mg q4h prntramado l 50 mg q8h prn Anxiety 20719013 F41.1 lorazepam 1 mg bid prnfu PCP Gastroesop hageal reflux disease 336712940 K21.9 Dexilant 60 mg dailyfu as outpatient Health Concerns Section Related Observation LastModified by Organization Detai ls LastModified Time None Recorded Concern Status LastModified by Organization Details LastModified Time None Recorded Advance Directives Directive Y: FULL CODE- use dialysis, nutrtition and hydration Payers Encounter Date Sequence Insurance Name Policy Number Policy Cramer Covered Member ID Cramer Member ID Guarantor Name 08/04/2018 2 [place] [facility] Lois Dalton [id number] Lois Dalton 08/04/2018 1 [facility] - DOS PRIOR TO 2022 - DUAL ELIGIBLE (MEDICARE REPLACEMENT/AD VANTAGE - HMO) Lois Dalton [id number] Lois Dalton 08/06/2018 2 [place] [facility] Lois Dalton [id number] Lois Dalton 08/06/2018 1 [facility] PRIOR TO 06/14/2022 - DUAL ELIGIBLE (MEDICARE REPLACEMENT/AD VANTAGE - HMO) Lois Dalton [id number] Lois Dalton Notes Date Note Type Note Provider Name and Address Organization Details Recorded Time 9 text/html A 63 year old female being seen for a initial intake note. Patient had an elective right knee replacement at [facility] [place] [facility]. She went home with vna despite attempts to get her to go to rehab. She attempted to get up out of her chair and walker was not locked causing her to fall. She then was able to ambulate for several days then ran out of pain medication. She went to [facility] [place] to get pain under control. X-ray and ultrasound were negative. While in the hospital she complained of burning on urination and frequency. A urine sample was sent which was positive for a UTI. She was sent here for some short term rehab. Medical history of constipation, anxiety/depression, HTN, DM, GERD, asthma, hypercholesterolemia and hormone replacement. SARAH MATIAS [address] [facility] [address], [place], [address], [facility] 08/04/2018 09:42:29 9 text/html 63 year old female admitted to [facility] 08/03/18 for rehab after TKR 07/26/18. Patient had been discharged home 07/29/18 with VNA services after TKR and fell when attempted to get up out of chair when walker was not locked causing a fall. She was able to ambulate for several days then ran out of pain medication. She went to [facility] to get pain under control. X-ray and ultrasound were negative. While in the hospital she complained of burning on urination and frequency. A urine sample was sent which was positive for a UTI. She was sent here for some short term rehab. Medical history of constipation, anxiety/depression, HTN, DM, GERD, asthma, hypercholesterolemia and hormone replacement. Patient has done with PT/OT here at [facility] and is now ready for discharge with VNA services at home. Advance directives: full code Eliza Garza MD [address] [place] [address], [address], [place], [address], [facility] 08/06/2018 11:52:07 OBGyn Episode No OBEpisode recorded.
== END 2024-08-09 13:48 | disposition home or self-care (01) ==
LOC: HO.HHCX 13:47
PROVIDERS: PCP Nurse Practitioner Primary Care; Visit Provider Nurse Practitioner Primary Care
DX: M54.50 Low back pain, unspecified (principal)
CPT/HCPCS: 72070

== ENCOUNTER → 2024-08-09 13:49 | Outpatient (BNV) | payer OTHER, SELFPAY | PROVIDERS: PCP Nurse Practitioner Primary Care; Visit Provider Radiology Diagnostic Radiology | DX: M47.814 Spondylosis without myelopathy or radiculopathy, thoracic region (principal); I70.0 Atherosclerosis of aorta | CPT/HCPCS: 72070 ==

== ENCOUNTER 2024-08-10 14:16 | Outpatient (REF) | payer OTHER, SELFPAY ==
--- NOTE | ~2024-08-10 | XR_ITS ---
EXAMINATION: XR SACROILIAC JOINTS CLINICAL INFORMATION: eval for sacroilitis COMPARISON: None available. TECHNIQUE: 3 views of the sacroiliac joints FINDINGS: No acute cortical disruption. No lytic or blastic lesion. No gross and vacuum phenomenon. No gross sclerosis. There is an IVC filter overlapping the right side of L2-3 vertebra. XR/XR sacroiliac joint min 3V IMPRESSION: No sacroiliitis. Electronically signed by: Yves Ricardo MD 08/10/2024 02:35 PM EDT
--- OUTSIDE RECORDS SUMMARY | 2024-08-10 15:12 | XMS_ITS | Encounter Summary ---
Author Organization [employer] Address [address] [place] [address] Care Team Providers Care Appliance Line Assembler Name Role Phone Breanna Zamudio Primary Care Provider [phone] Reason for Visit * Reason Onset Date Comments Med Refill 03/15/2024 Encounter Details Date Type Department Care Team ([facility] st Contact Info) Description 03/15/2024 Telephone [facility] [address] [place], [place] [phone] Breanna Zamudio ANP [address] [place], [place] [phone] Med Refill Social History Tobacco Use Types [...] immediate release tablet To be sent to: [facility] documented in this encounter Plan of Treatment Upcoming Encounters Date Type Department Care Team (Latest Contact Info) Description 08/10/2024 3:15 PM EDT Clinical Support [facility] [address] [place] [address] Sis Coppola RN [address] [place] [address] Osteoarthritis of multiple joints, unspecified osteoarthritis type; Long-term current use of opiate analgesic documented as of this encounter Visit Diagnoses Not on filedocumented in this encounter Care Teams Appliance Line Assembler Relationship Specialty Start Date End Date Breanna Zamudio ANP [address] [place] [address] PCP - General Family Medicine 10/03/19 [facility] 07/31/23 documented as of this encounter
== END 2024-08-10 14:17 | disposition home or self-care (01) ==
LOC: HO.HHCX 14:16
PROVIDERS: PCP Nurse Practitioner Primary Care; Visit Provider Nurse Practitioner Primary Care
DX: M24.28 Disorder of ligament, vertebrae (principal)
CPT/HCPCS: 72202

== ENCOUNTER → 2024-08-10 14:18 | Outpatient (BNV) | payer OTHER, SELFPAY | PROVIDERS: PCP Nurse Practitioner Primary Care; Visit Provider Radiology Diagnostic Radiology | DX: M46.1 Sacroiliitis, not elsewhere classified (principal) | CPT/HCPCS: 72202 ==

== ENCOUNTER 2024-08-11 01:55 | Emergency (ER) | payer OTHER, SELFPAY ==
--- NOTE | 2024-08-11 | ECG_ITS ---
Test Reason : CP Blood Pressure : */* mmHG Vent. Rate : 70 BPM Atrial Rate : 70 BPM P-R Int : 132 ms QRS Dur : 98 ms QT Int : 420 ms P-R-T Axes : 49 19 81 degrees QTcB Int : 453 ms Normal sinus rhythm Nonspecific ST and T wave abnormality Abnormal ECG When compared with ECG of 31-May-2023 22:41, Premature atrial complexes are no longer Present Nonspecific T wave abnormality no longer evident in Inferior leads QT has lengthened Referred By: Generic ED Physician Electronically Signed By: LIGIA BLANCAS MD
--- NOTE | ~2024-08-11 | XR_ITS ---
CLINICAL HISTORY: cough chest pain 2 view chest x-ray Comparison: CR/SD/SR - XR CHEST 1V - 06/15/23 08:01 EDT Findings: No consolidation or effusion. Heart size is normal. No acute fracture. IMPRESSION: 1. No acute findings. This document has been electronically signed by: Colin Eng MD, PHD on 08/11/2024 03:21:26
--- NOTE | ~2024-08-11 | CT_ITS ---
CLINICAL HISTORY: HTN, MARTINEZ CT head without contrast Comparison: CT/IL/SR - CT HEAD/BRAIN WO IV CON - 05/29/23 11:30 EDT Findings: No intra-axial mass, midline shift, hydrocephalus, or acute hemorrhage. Nonspecific white matter hypodensity with mild volume loss. There is no sinus or mastoid fluid. The orbits are unremarkable. There is no acute fracture. IMPRESSION: 1. No acute intracranial findings. This document has been electronically signed by: Colin Eng MD, PHD on 08/11/2024 03:47:37
[2024-08-11 02:00] VITALS: BP 196/116; PULSE 70; O2SAT 99
[2024-08-11 02:25] LABS: Basophils Absolute Auto 0.1 X10*3/uL (0.0-0.2); Basophils Percent Auto 0.6 % (0-2); Eosinophils Absolute Auto 0.4 X10*3/uL (0.0-0.4); Eosinophils Percent Auto 3.4 % (0-4); Hematocrit 45.7 % (37.0-47.0); Hemoglobin 15.8 g/dl (12.0-16.0); Imm Gran Abs Auto 0.04 X10*3/uL (0.00-0.03); Imm Gran Pct Auto 0.3 % (0.0-0.4); Lymphocytes Absolute Auto 3.8 X10*3/uL (1.2-4.9); Lymphocytes Percent Auto 32.8 % (20-40); MANUAL DIFF FLAG NO; Mean Corpuscular HGB Conc 34.6 g/dl (31.0-35.0); Mean Corpuscular Hemoglobin 28.2 pg (27.0-33.0); Mean Corpuscular Volume 81.5 fL (80.0-98.0); Mean Platelet Volume 9.3 fL (9.4-12.3); Monocytes Absolute Auto 0.9 X10*3/uL (0.1-1.2); Monocytes Percent Auto 7.4 % (2-11); Neutrophils Absolute Auto 6.4 x10*3/uL (2.0-8.3); Neutrophils Percent Auto 55.5 % (45-73); Platelet Count 286 X10*3/uL (160-400); Red Blood Count 5.61 X10*6/uL (4.20-5.50); Red Cell Distribution Width 12.3 % (11.0-16.0); White Blood Count 11.6 X10*3/uL (4.8-10.8)
[2024-08-11 02:27] VITALS: BP 207/84; PULSE 78; RESP 15; TEMP 36.8; O2SAT 97; BMI 35.3
[2024-08-11 02:31] LABS: Prothrombin Time 11.7 SEC (10.9-12.4)
--- NOTE | 2024-08-11 02:40 | ED.CHESTPAIN ---
HPI - Chest Pain General Chief Complaint: Chest Pain Stated Complaint: CHEST PRESSURE X1H,WORSE W/COUGH PER EMS Time Seen by Provider: 08/11/24 02:02 Source: patient and EMS Mode of arrival: EMS Limitations: no limitations History of Present Illness ED Provider: Dr. Bee Medina HPI narrative: Patient comes in the emergency room complaining of patient room disturbances, nausea, headache, generalized malaise. Patient states that she feels a bit of chest pressure but no chest pain. Patient states that she was sitting when this happened. Patient states that she takes several blood pressure medications and she is compliant with them. Also takes Eliquis for history of pulmonary embolisms. Patient denies any shortness of breath or lower extremity pain. Arrival, patient's blood pressure 207/84. Related Data Home Medications ?Medication ?Instructions ?Recorded ?Confirmed blood sugar diagnostic #10 ea 03/19/20 06/28/24 metoprolol succinate 200 mg 200 mg PO DAILY 07/09/20 06/28/24 tablet,extended release 24 hr albuterol sulfate 0.63 mg/3 mL 1 amp inhalation Q4H PRN wheezing 03/24/22 06/28/24 solution for nebulization multivitamin-ferrous 1 tab PO DAILY 03/24/22 06/28/24 fumarate-folic acid 18 mg-400 mcg tablet (Certavite-Antioxidant) cyanocobalamin (vitamin B-12) 1,000 mcg PO DAILY 02/28/23 06/28/24 1,000 mcg sublingual tablet empagliflozin 25 mg tablet 25 mg PO QAM 02/28/23 06/28/24 (Jardiance) pioglitazone 15 mg tablet 15 mg PO QAM 02/28/23 06/28/24 venlafaxine 150 mg 150 mg PO DAILY 05/20/23 06/28/24 capsule,extended release 24 hr fluticasone propionate 50 1 spray intranasal DAILY 05/25/23 06/28/24 mcg/actuation nasal spray,suspension psyllium husk 3 gram/5.4 gram oral 3 g PO DAILY 05/27/23 06/28/24 powder (Reguloid (psyllium husk)) acetaminophen 650 mg 650 mg PO TID 11/30/23 06/28/24 tablet,extended release clonidine HCl 0.1 mg tablet 0.1 mg PO BID 11/30/23 06/28/24 lisinopril 40 mg tablet 40 mg PO DAILY 11/30/23 06/28/24 oxycodone 10 mg tablet 10 mg PO QID PRN 11/30/23 06/28/24 trazodone 150 mg tablet mg PO 11/30/23 06/28/24 celecoxib 200 mg capsule 200 mg PO PRN 02/15/24 06/28/24 insulin glargine 100 unit/mL (3 40 unit subcut BEDTIME 06/28/24 06/28/24 mL) subcutaneous pen (Lantus Solostar U-100 Insulin) Previous Rx's ?Medication ?Instructions ?Recorded meclizine 25 mg tablet 25 mg PO DAILY PRN dizziness #20 02/11/21 tabs metformin 500 mg tablet,extended 1,000 mg (2 x 500 mg) PO BID 30 11/20/21 release 24 hr days #120 tabs albuterol sulfate 90 mcg/actuation 90 mcg inhalation Q4H PRN Wheezing 03/04/22 aerosol inhaler (Ventolin HFA) #8.5 grams ondansetron 4 mg disintegrating 4 mg PO Q6-8H PRN nausea and 02/26/23 tablet vomiting #10 tabs docusate sodium 100 mg capsule 100 mg PO BID 14 days #28 caps 05/27/23 apixaban 5 mg tablet (Eliquis) 5 mg PO BID 90 days #180 tabs 06/20/23 commode (bedside commode) #1 ea 06/20/23 gabapentin 100 mg capsule 100 mg PO TID 90 days #270 caps 06/20/23 tamsulosin 0.4 mg capsule 0.4 mg PO DAILY 90 days #90 caps 06/20/23 fluticasone fur. 200 mcg-umeclid 1 ea inhalation DAILY #60 ea 07/31/23 62.5 mcg-vilant 25 mcg inhalat.powder (Trelegy Ellipta) levothyroxine 75 mcg tablet 75 mcg PO QAM #30 tabs 10/13/23 dexlansoprazole 60 mg 60 mg PO DAILY #30 caps 12/14/23 capsule,biphase delayed release cholecalciferol (vitamin D3) 50 50 mcg PO QAM #30 tabs 01/07/24 mcg (2,000 unit) tablet rosuvastatin 40 mg tablet 40 mg PO DAILY #30 tabs 01/07/24 linaclotide 290 mcg capsule 290 mcg PO DAILY #30 caps 03/14/24 (Linzess) blood-glucose sensor (FreeStyle #2 ea 04/26/24 [place] 3 Sensor device) blood-glucose,dock pumper,cont #1 ea 04/26/24 (FreeStyle [place] 3 [place]) blood-glucose meter (OneTouch #1 ea 06/20/24 Verio Flex Meter) lancets 33 gauge (OneTouch Delica #100 ea 06/20/24 Plus Lancet) blood sugar diagnostic (OneTouch #100 ea 06/21/24 Verio test strips) semaglutide 2 mg/dose (8 mg/3 mL) 2 mg (0.75 mL) subcut QWEEK #3 mL 07/28/24 subcutaneous pen injector ([address]) Allergies Allergy/AdvReac Type Severity Reaction Status Date / Time hazelnut Allergy Mild per Verified 08/11/24 02:29 allergy skin test peanut Allergy Mild per Verified 08/11/24 02:29 allergy skin test Review of Systems Review of Systems: Constitutional : No Weight loss, No Fever, No Chills, No Night Sweats, No Fatigue, No Malaise ENT/Mouth : No Hearing loss, No Ear Pain, No Nasal Congestion, No Sinus Pain, No Hoarseness, No sore throat, No Rhinorrhea, No Swallowing Difficulty Eyes: No Eye Pain, No Swelling, No Redness, No Foreign Body, complaining of intermittent blurred vision Cardiovascular : Complaining of chest tightness without Chest Pain, No SOB, No Dyspnea on Exertion, No Orthopnea, No Edema, No Palpitations Respiratory : No Cough, No Sputum, No Wheezing, No Smoke Exposure, No Dyspnea Gastrointestinal : No Nausea, No Vomiting, No Diarrhea, No Constipation, No abdominal Pain, No Hematochezia, No Melena Genitourinary : no irregular bleeding, No Dysuria, No Urinary Frequency, No Hematuria, No Urinary Incontinence, No Urgency, No Flank Pain, No Urinary Flow Changes, No Hesitancy Musculoskeletal : No joint pain, No Myalgias, No Joint Swelling Skin : No Skin Lesions, No rash Neuro : No Weakness, No Numbness, No Paresthesias, No Loss of Consciousness, No Dizziness, denies Headache Psych : No Anxiety/Panic, No Depression, No SI/HI/AH/VH, No Social Issues, Heme/Lymph: No Bruising, No Bleeding,No Lymphadenopathy Endocrine : No Polyuria, No Polydipsia, No Temperature Intolerance [facility] Past Medical History Medical History Asthma-COPD overlap syndrome Hypertension Diabetes MGUS (monoclonal gammopathy of unknown significance) Chronic restrictive lung disease Obesity (BMI 30.0-34.9) Cough due to SHANELLE inhibitor Eosinophilia Asthma T2DM (type 2 diabetes mellitus) Erosive gastritis Leg edema, left Hyperparathyroidism Vitamin D deficiency Multinodular thyroid Thyroid nodule Skin lesion of chest wall Type 2 diabetes mellitus with diabetic polyneuropathy Fibromyalgia Depression with anxiety Cervical cancer Osteoarthritis of left knee Osteopenia GERD (gastroesophageal reflux disease) Diabetes mellitus with hyperglycemia Meir's disease Other specified acquired hypothyroidism Hyperlipidemia LDL goal <100 Essential hypertension Vitamin B12 deficiency Other obesity due to excess calories BMI 35.0-35.9,adult Surgical History Hx of elbow surgery Hx of hand surgery Hx of arthroscopic knee surgery History of cholecystectomy History of arthroplasty of right knee Hx of hysterectomy Hx of foot surgery History of bilateral carpal tunnel release Hx of bilateral oophorectomy History of esophagogastroduodenoscopy (EGD) Hx of colonoscopy Family History Family History Father CVD (cardiovascular disease) Diabetes mellitus Stroke Mother Stroke Diabetes mellitus Breast cancer Hyperthyroidism Social History Social History Household Members: Spouse Housing: House Housing Other:: 2nd floor-2 family house Are you a primary doggy daycare activities director to a significant other at home: No Do you presently have visiting nurse or other home services: Yes ([employer]) Alcohol intake: never Comment: continues with camera Patient Tobacco Use Status: Never used Tobacco Advance Directives: Yes Advance Directives on File: Yes Advance Directives Date on File: 03/06/23 Do you have a plan to hurt others: No Plan service: No 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al status: disabled 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: Right Handed Physical Exam Vital Signs: Vital Signs: Last Vital Signs Temp 98.2 F 08/11/24 02:27 Pulse 80 08/11/24 04:00 Resp 16 08/11/24 04:00 BP 160/68 H 05/29/25 04:00 Pulse Ox 97 08/11/24 04:00 O2 Del Method Room Air 08/11/24 04:00 BMI result Body Mass Index 35.3 Const: Other: Appearance: Alert. Oriented X3. No acute distress. Eyes: Pupils equal, round and reactive to light. ENT: Pharynx normal. Neck: Normal inspection. Neck supple. No lymph nodes noted. No crepitus CVS: Normal heart rate and rhythm. Pulses normal. Normal S1 and S2 Respiratory: No respiratory distress. Breath sounds normal. No Wheezing. No rales Abdomen: Soft and nontender. No rigidity. No distention. Skin: Skin warm and dry. Normal skin color. Normal skin turgor. Extremities: No lower extremity edema. No Lacerations. No Rash Neuro: Oriented X 3. No motor deficit. No sensory deficit. Moving all extremities. No slurred speech. CN 2 through 12 grossly intact Psych: calm, cooperative, normal affect Course Course Course Narrative: On arrival, patient's blood pressure 207/84, heart rate 78 All of patient's labs pending Head CT and chest x-ray pending. Patient receiving p.o. labetalol Medications Administered Discontinued Medications Generic Name Dose Route Start Last Admin Trade Name Freq PRN Reason Stop Dose Admin Labetalol HCl 100 mg 08/11/24 02:41 08/11/24 03:00 Labetalol Hcl 100 Mg Tablet PO 08/11/24 02:42 100 mg ONCE ONE Administration Protocol Medical Decision Making Medical Decision Making [facility] Narrative: My interpretation of labs: No significant abnormality in patient's hematology, patient's white blood cell count 11.6, likely reactive leukocytosis, hemoglobin stable 15.8 coagulation labs normal, chemistry labs normal, troponin negative, BNP normal serology negative Interpretation of EKG, normal sinus rhythm, heart rate 70, no ST segment depression or elevation, no T-wave inversion, QTC [address] does not show any acute abnormality. Patient states that she no longer has any chest pain or chest pressure or shortness of breath. Patient states that she feels better At this time, patient is asymptomatic. Patient's blood pressure improved to 100 60s systolic. Patient states that yesterday she got prescribed a new medication and has not taking it yet. Patient will pick it up from the pharmacy today and will follow-up with the primary care physician. Patient instructed to keep a log of her blood pressures. Differential Diagnosis Differential Diagnoses: The differential diagnosis associated with the presentation includes (Apprehensive urgency, hypertensive emergency, chronic hypertension, tension headache) Admission/Observation Consideration of admission/observation: Escalation of care including admission/observation considered (Given patient's elevated blood pressure and symptoms, observation was considered) Lab Data MDM Lab Attestation statement: I reviewed the patient's lab results. 08/11/24 02:20 08/11/24 02:20 Labs: Lab Results 08/11/24 08/11/24 08/11/24 Range/Units 02:09 02:20 02:21 WBC 11.6 H (4.8-10.8) X10*3/uL RBC 5.61 H (4.20-5.50) X10*6/uL Hgb 15.8 (12.0-16.0) g/dl Hct 45.7 (37.0-47.0) % MCV 81.5 (80.0-98.0) fL MCH 28.2 (27.0-33.0) pg MCHC 34.6 (31.0-35.0) g/dl RDW 12.3 (11.0-16.0) % Plt Count 286 (160-400) X10*3/uL MPV 9.3 L (9.4-12.3) fL Immature Gran % (Auto) 0.3 (0.0-0.4) % Neut % (Auto) 55.5 (45-73) % Lymph % (Auto) 32.8 (20-40) % [place] % (Auto) 7.4 (2-11) % Eos % (Auto) 3.4 (0-4) % Baso % (Auto) 0.6 (0-2) % Lymph # (Auto) 3.8 (1.2-4.9) X10*3/uL [place] # (Auto) 0.9 (0.1-1.2) X10*3/uL Eos # (Auto) 0.4 (0.0-0.4) X10*3/uL Baso # (Auto) 0.1 (0.0-0.2) X10*3/uL Abs Immat Gran (auto) 0.04 H (0.00-0.03) X10*3/uL Absolute Neuts (auto) 6.4 (2.0-8.3) x10*3/uL Absolute Nucleated RBC 0.000 (0.0-0.012) X10*3/uL Nucleated RBC % (auto) 0.0 (0.0-0.2) /100WBC PT 11.7 (10.9-12.4) SEC INR 1.0 (0.9-1.1) Sodium 139 (135-145) mmol/L Potassium 3.9 (3.3-5.1) mmol/L Chloride 103 (96-108) mmol/L Carbon Dioxide 23 (22-29) mmol/L Anion Gap 17 (12-20) BUN 11 (9-16) mg/dL Creatinine 0.71 (0.5-1.4) mg/dL Estim Creat Clear Calc 81.6 Estimated GFR > 60 Random Glucose 242 H (60-115) mg/dL Calcium 9.6 (8.4-10.2) mg/dL Magnesium 1.7 (1.6-2.6) mg/dL Total Bilirubin 0.3 (0.0-1.0) mg/dL Direct Bilirubin < 0.1 (0.0-0.5) mg/dL AST 28 (5-31) U/L ALT 25 (0-31) U/L Alkaline Phosphatase 115 (39-117) U/L Troponin I High Sens 3.5 (<3.5-17.0) ng/L B-Natriuretic Peptide 44 (<100) pg/mL Total Protein 8.1 H (6.5-8.0) g/dL Albumin 4.2 (3.5-5.0) g/dL Lipase 22 (8-78) U/L Influenza Type A (PCR) NEGATIVE (Negative) Influenza Type B (PCR) NEGATIVE (Negative) RSV RNA Qual (PCR) NEGATIVE (Negative) SARS-CoV-2 RNA (RT-PCR) NEGATIVE (Negative) Independent Interpretation I performed an independent interpretation of an: EKG, Plain X-Ray and CT Scan Radiology Impression Discussion of test interpretation with radiology: I have reviewed the radiologist's reading. Radiologist Impression: No intra-axial mass, midline shift, hydrocephalus, or acute hemorrhage. Nonspecific white matter hypodensity with mild volume loss. There is no sinus or mastoid fluid. The orbits are unremarkable. There is no acute fracture. No consolidation or effusion. Heart size is normal. No acute fracture. Critical Care Time Critical Care Time Critical Care Time: Yes Total Critical Care Time: 60 Attestation: I have personally provided critical care time. Time includes review of lab data, radiology results, discussion with consultants, and monitoring for potential decompensation. Intervention performed as documented. Discharge Plan Discharge Clinical Impression: Hypertension Patient Disposition: Home, Self-Care Instructions: Chronic Hypertension (ED), Heart Healthy Diet (ED) Additional Instructions: Please follow-up with your primary care physician tomorrow. If you have any worsening or new symptoms, please return to the emergency room or call 911 Prescriptions: No Action Trelegy Ellipta 200-62.5-25 mcg blister with device 1 ea inhalation DAILY Qty: 60 12RF levothyroxine 75 mcg tablet 75 mcg PO QAM Qty: 30 6RF dexlansoprazole 60 mg capsule,biphase delayed releas 60 mg PO DAILY Qty: 30 6RF rosuvastatin 40 mg tablet 40 mg PO DAILY Qty: 30 11RF cholecalciferol (vitamin D3) 50 mcg (2,000 unit) tablet 50 mcg PO QAM Qty: 30 11RF Linzess 290 mcg capsule 290 mcg PO DAILY Qty: 30 6RF (DME) lancets [OneTouch Delica Plus Lancet] 33 gauge misc See Rx Instructions topical .MEDSUPPLY Qty: 100 5RF Rx Instructions: As directed to check blood sugar twice daily. (DME) blood-glucose meter [OneTouch Verio Flex meter] Misc See Rx Instructions .ROUTE .MEDSUPPLY Qty: 1 0RF Rx Instructions: Use as directed to check blood glucose (DME) OneTouch Verio test strips Strip See Rx Instructions .ROUTE .MEDSUPPLY Qty: 100 5RF Rx Instructions: Use as directed to check blood glucose twice daily. Ozempic 2 mg/dose (8 mg/3 mL) pen injector 2 mg subcut QWEEK Qty: 3 5RF meclizine 25 mg tablet 25 mg PO DAILY PRN (Reason: dizziness) Qty: 20 0RF albuterol sulfate 0.63 mg/3 mL solution for nebulization 1 amp inhalation Q4H PRN (Reason: wheezing) Certavite-Antioxidant 18-400 mg-mcg tablet 1 tab PO DAILY albuterol sulfate [Ventolin HFA] 90 mcg/actuation HFA aerosol inhaler 90 mcg inhalation Q4H PRN (Reason: Wheezing) Qty: 8.5 0RF ondansetron 4 mg tablet,disintegrating 4 mg PO Q6-8H PRN (Reason: nausea and vomiting) Qty: 10 0RF docusate sodium 100 mg Capsule 100 mg PO BID 14 Days Qty: 28 0RF Reguloid (psyllium husk) 3 gram/5.4 gram powder 3 g PO DAILY Eliquis 5 mg tablet 5 mg PO BID 90 Days Qty: 180 0RF Rx Instructions: start taking on 06/29 tamsulosin 0.4 mg Capsule 0.4 mg PO DAILY 90 Days Qty: 90 0RF gabapentin 100 mg Capsule 100 mg PO TID 90 Days Qty: 270 0RF (DME) bedside commode Kit See Rx Instructions .Route Qty: 1 0RF Rx Instructions: As directed pioglitazone 15 mg tablet 15 mg PO QAM Jardiance 25 mg tablet 25 mg PO QAM cyanocobalamin (vitamin B-12) 1,000 mcg tablet, sublingual 1,000 mcg PO DAILY (DME) blood sugar diagnostic Strip See Rx Instructions Not Applicable BID Qty: 10 Rx Instructions: As directed metoprolol succinate 200 mg tablet extended release 24 hr 200 mg PO DAILY metformin 500 mg tablet extended release 24 hr 1,000 mg PO BID 30 Days Qty: 120 11RF fluticasone propionate 50 mcg/actuation spray,suspension 1 spray intranasal DAILY oxycodone 10 mg tablet 10 mg PO QID PRN trazodone 150 mg tablet PO clonidine HCl 0.1 mg tablet 0.1 mg PO BID acetaminophen 650 mg tablet extended release 650 mg PO TID lisinopril 40 mg tablet 40 mg PO DAILY celecoxib 200 mg capsule 200 mg PO PRN venlafaxine 150 mg capsule,extended release 24hr 150 mg PO DAILY (DME) FreeStyle [place] 3 [place] Misc See Rx Instructions .ROUTE .MEDSUPPLY Qty: 1 0RF Rx Instructions: Use daily to monitor blood glucose levels continuously. (DME) FreeStyle [place] 3 Sensor Device See Rx Instructions .ROUTE .MEDSUPPLY Qty: 2 11RF Rx Instructions: apply new sensor every 14 days insulin glargine [Lantus Solostar U-100 Insulin] 100 unit/mL (3 mL) insulin pen 40 unit subcut BEDTIME Print Language: Slovenian
[2024-08-11 02:46] LABS: B Type Natriuretic Peptide 44 pg/mL (<100); Troponin-I High Sensitivity 3.5 ng/L (<3.5-17.0)
[2024-08-11 02:51] LABS: Alanine Aminotransferase 25 U/L (0-31); Albumin Level 4.2 g/dL (3.5-5.0); Alkaline Phosphatase 115 U/L (39-117); Anion Gap 17 (12-20); Aspartate Amino Transferase 28 U/L (5-31); Bilirubin Direct < 0.1 mg/dL (0.0-0.5); Bilirubin Total 0.3 mg/dL (0.0-1.0); Blood Urea Nitrogen 11 mg/dL (9-16); Calcium 9.6 mg/dL (8.4-10.2); Carbon Dioxide 23 mmol/L (22-29); Chloride 103 mmol/L (96-108); Creatinine Clr Calc Pharmacy 81.6; Estimated Glomerular Filt Rate > 60; Glucose Random 242 mg/dL (60-115); Lipase 22 U/L (8-78); Magnesium 1.7 mg/dL (1.6-2.6); Potassium 3.9 mmol/L (3.3-5.1); Sodium 139 mmol/L (135-145); Total Protein 8.1 g/dL (6.5-8.0)
--- OUTSIDE RECORDS SUMMARY | 2024-08-11 02:51 | XMS_ITS | Encounter Summary ---
Author Organization [employer] Address [address] [place] [address] Care Team Providers Care [employer] Support Name Role Phone Breanna Zamudio Primary Care Provider [phone] Reason for Visit * Reason Onset Date Comments Med Refill 03/15/2024 Encounter Details Date Type Department Care Team ([facility] st Contact Info) Description 03/15/2024 Telephone [facility] MEDICINE [address] [place], [place] [phone] Breanna Zamudio ANP [address] [place], [place] [phone] Med Refill Social History Tobacco Use Types [...] Orientation Straight 01/13/2022 10 :16 AM EDT Travel History Travel Start Travel End [place] 07/11/2024 08/10/2024 documented as of this encounter Miscellaneous Notes * Telephone Encounter - Herman Aj - 03/15/2024 10:03 AM EST TC from pt requesting medication refill. Medications needing refill : oxyCODONE (Roxicodone) 10 MG immediate release tablet To be sent to: [facility] pharmacy documented in this encounter Plan of Treatment Upcoming Encounters Date Type Department Care Team (Late st Contact Info) Description 10/31/2024 1:30 PM EDT Telemedicine [facility] [address] [place] [phone] Sis Coppola RN [address] [place] [address] documented as of this encounter Visit Diagnoses Not on filedocumented in this encounter Care Teams [employer] Support Relationship Specialty Start Date End Date Breanna Zamudio ANP [address] [place] [id number] PCP - General Family Medicine 10/03/19 [facility] 07/31/23 documented as of this encounter
[2024-08-11 02:52] LABS: Influenza A PCR NEGATIVE (Negative); Influenza B PCR NEGATIVE (Negative); Resp Syncy Virus RNA Qual PCR NEGATIVE (Negative); SARS COV2 PCR INHOUSE NEGATIVE (Negative)
[2024-08-11 03:00] VITALS: BP 194/85; PULSE 74
[2024-08-11] MEDS: Labetalol HCL 100 MG TABLET PO (03:00)
[2024-08-11 04:00] VITALS: BP 160/68; PULSE 80; RESP 16; O2SAT 97
[2024-08-11 04:19] VITALS: BP 161/61; PULSE 80; RESP 16; TEMP 36.7; O2SAT 97
== END 2024-08-11 04:23 | disposition home or self-care (01) ==
PROVIDERS: Emergency Provider Emergency Medicine
DX: R07.89 Other chest pain (principal); I10 Essential (primary) hypertension; K92.2 Gastrointestinal hemorrhage, unspecified; R11.0 Nausea; R05.9 Cough, unspecified; R06.02 Shortness of breath; Z79.01 Long term (current) use of anticoagulants; Z79.899 Other long term (current) drug therapy; Z03.818 Encounter for observation for suspected exposure to other biological agents ruled out
CPT/HCPCS: 0241U; 36415; 70450; 71046; 80053; 82248; 83690; 83735; 83880; 84484; 85025; 85610; 93005; 99284; 99285

== ENCOUNTER → 2024-08-11 02:02 | Outpatient (BNV) | payer OTHER, SELFPAY | PROVIDERS: Emergency Provider Emergency Medicine; Visit Provider Internal Medicine Cardiovascular Disease | DX: R94.31 Abnormal electrocardiogram [ECG] [EKG] (principal); R07.9 Chest pain, unspecified | CPT/HCPCS: 93010 ==

== ENCOUNTER → 2024-08-11 02:25 | Outpatient (BNV) | payer OTHER, SELFPAY | PROVIDERS: Emergency Provider Emergency Medicine; Visit Provider General Practice | DX: I10 Essential (primary) hypertension (principal); R51.9 Headache, unspecified; R05.9 Cough, unspecified; R07.9 Chest pain, unspecified | CPT/HCPCS: 70450; 71046 ==

== ENCOUNTER 2024-08-26 19:41 | Emergency (ER) | payer OTHER, SELFPAY ==
--- NOTE | 2024-08-26 | ECG_ITS ---
Test Reason : CHEST PAIN Blood Pressure : */* mmHG Vent. Rate : 88 BPM Atrial Rate : 88 BPM P-R Int : 136 ms QRS Dur : 100 ms QT Int : 386 ms P-R-T Axes : 48 9 59 degrees QTcB Int : 467 ms Normal sinus rhythm Normal ECG When compared with ECG of 11-Aug-2024 02:02, No significant change was found Referred By: Generic ED Physician Electronically Signed By: LIGIA BLANCAS MD
--- NOTE | ~2024-08-26 | XR_ITS ---
CLINICAL HISTORY: lower back pain 3 views lumbar spine Comparison: None Findings: Normal heights of 5 lumbar vertebrae. No significant listhesis. Degenerative disc changes are multifocal including thoracolumbar junction and lumbosacral junction. Facet arthropathy is multifocal with bony productive changes particularly in the lower lumbar spine. L4 and L5 pars are partly obscured without definite lysis. Surgical clips noted in the imaged right upper quadrant with inferior vena cava filter opacities present. Small air-fluid levels of the imaged small intestine in the [id number] with moderate stool burden partially imaged. IMPRESSION: 1. Degenerative changes include facet arthropathy, particularly in the lower lumbar spine. 2. No acute compression fracture 5 lumbar vertebrae. This document has been electronically signed by: Archie Dunn MD on 08/26/2024 22:08:26
--- NOTE | ~2024-08-26 | CT_ITS ---
CLINICAL HISTORY: lower abd pain CT abdomen and pelvis with contrast Comparison: None available Findings: Mild bibasilar atelectasis and scarring. Mild pleural thickening in the adipose changes particularly in the left pleural space. Mild fat deposition of the liver. The gallbladder is surgically absent. The adrenal glands are normal. The spleen is nonenlarged. Mild-moderate volume loss of the imaged pancreas particularly head and uncinate process. IVC filter is noted. No suspicious features of cystic lesions in the kidneys by CT. No hydronephrosis accounting for parapelvic cysts. Small mesenteric and periaortic lymph nodes likely reactive. No small bowel obstruction. Wall thickening of the large intestine is nonspecific and may reflect combination of the colitis and diverticulitis including involving lower portion of the descending colon and sigmoid colon with mild adjacent fluid. Imaged appendix within normal limits (imaged 511 of series 3). No free intraperitoneal air or drainable abscess by CT. Uterus is absent. No adnexal soft tissue mass. Minimal wall thickening of the mildly distended urinary bladder. Mild pelvis deformities appear old/chronic. Degenerative changes of the pubic symphysis, hips, SI joints, and spine. Facet arthropathy is multifocal most pronounced in the lower lumbar spine. IMPRESSION: 1. Wall thickening of the lower portion of the descending colon sigmoid colon concerning for mild colitis and diverticulitis. No small bowel obstruction. 2. IVC filters in place. This document has been electronically signed by: Archie Dunn MD on 08/26/2024 23:13:41
--- NOTE | ~2024-08-26 | XR_ITS ---
CLINICAL HISTORY: chest pressure sob 1 view chest x-ray Comparison: Chest x-ray from 08/11/2024 Findings: No consolidation, pneumothorax, or pleural effusion, with partial obscuration of the lung bases. Mild emphysematous changes suggested. No pneumothorax or pleural effusion. Imaged mediastinum and imaged osseous structures appear unchanged. Surgical clips noted in the imaged abdomen. IMPRESSION: No consolidation. This document has been electronically signed by: Archie Dunn MD on 08/26/2024 22:14:15
[2024-08-26 20:06] VITALS: BP 168/98; PULSE 97; O2SAT 100
[2024-08-26 20:08] VITALS: BP 190/83; PULSE 89; RESP 16; TEMP 36.9; O2SAT 100; BMI 35.1
[2024-08-26 20:33] LABS: MANUAL DIFF FLAG NO
[2024-08-26 20:35] LABS: Basophils Absolute Auto 0.1 X10*3/uL (0.0-0.2); Basophils Percent Auto 0.6 % (0-2); Eosinophils Absolute Auto 0.3 X10*3/uL (0.0-0.4); Eosinophils Percent Auto 2.2 % (0-4); Hematocrit 42.1 % (37.0-47.0); Hemoglobin 14.6 g/dl (12.0-16.0); Imm Gran Abs Auto 0.05 X10*3/uL (0.00-0.03); Imm Gran Pct Auto 0.4 % (0.0-0.4); Lymphocytes Absolute Auto 3.1 X10*3/uL (1.2-4.9); Lymphocytes Percent Auto 26.5 % (20-40); Mean Corpuscular HGB Conc 34.7 g/dl (31.0-35.0); Mean Corpuscular Hemoglobin 28.3 pg (27.0-33.0); Mean Corpuscular Volume 81.6 fL (80.0-98.0); Mean Platelet Volume 9.4 fL (9.4-12.3); Monocytes Absolute Auto 0.8 X10*3/uL (0.1-1.2); Neutrophils Absolute Auto 7.5 x10*3/uL (2.0-8.3); Neutrophils Percent Auto 63.3 % (45-73); Platelet Count 259 X10*3/uL (160-400); Red Blood Count 5.16 X10*6/uL (4.20-5.50); Red Cell Distribution Width 12.4 % (11.0-16.0); White Blood Count 11.8 X10*3/uL (4.8-10.8)
[2024-08-26 20:55] LABS: Alanine Aminotransferase 19 U/L (0-31); Albumin Level 4.1 g/dL (3.5-5.0); Alkaline Phosphatase 110 U/L (39-117); Anion Gap 11 (12-20); Aspartate Amino Transferase 23 U/L (5-31); Bilirubin Direct 0.1 mg/dL (0.0-0.5); Bilirubin Total 0.5 mg/dL (0.0-1.0); Blood Urea Nitrogen 13 mg/dL (9-16); Calcium 8.9 mg/dL (8.4-10.2); Carbon Dioxide 25 mmol/L (22-29); Chloride 108 mmol/L (96-108); Estimated Glomerular Filt Rate > 60; Glucose Random 134 mg/dL (60-115); Lipase 22 U/L (8-78); Magnesium 1.9 mg/dL (1.6-2.6); Potassium 3.5 mmol/L (3.3-5.1); Sodium 140 mmol/L (135-145); Total Protein 7.6 g/dL (6.5-8.0)
[2024-08-26 21:02] LABS: Troponin-I High Sensitivity 6.3 ng/L (<3.5-17.0)
--- NOTE | 2024-08-26 21:21 | ED.ABDPAIN ---
HPI - Abdominal Pain General Chief Complaint: Abdominal Pain Stated Complaint: abd pain, groin pain,cp , dizzy, nausea Time Seen by Provider: 08/26/24 19:54 History of Present Illness ED Provider: Hussain Wolf MD HPI narrative: 69 history DVT, PE, complicated colitis, hyperlipidemia COPD here with lower abdominal discomfort she also has some vague bilateral thigh discomfort with no swelling. Atypical nonexertional chest pressure associated with this no difficulty breathing, no cough, no hemoptysis Related Data Home Medications ?Medication ?Instructions ?Recorded ?Confirmed blood sugar diagnostic #10 ea 03/19/20 06/28/24 metoprolol succinate 200 mg 200 mg PO DAILY 07/09/20 06/28/24 tablet,extended release 24 hr albuterol sulfate 0.63 mg/3 mL 1 amp inhalation Q4H PRN wheezing 03/24/22 06/28/24 solution for nebulization multivitamin-ferrous 1 tab PO DAILY 03/24/22 06/28/24 fumarate-folic acid 18 mg-400 mcg tablet (Certavite-Antioxidant) cyanocobalamin (vitamin B-12) 1,000 mcg PO DAILY 02/28/23 06/28/24 1,000 mcg sublingual tablet empagliflozin 25 mg tablet 25 mg PO QAM 02/28/23 06/28/24 (Jardiance) pioglitazone 15 mg tablet 15 mg PO QAM 02/28/23 06/28/24 Held on 06/20/23. Instructions: hold until follow up with PCP venlafaxine 150 mg 150 mg PO DAILY 05/20/23 06/28/24 capsule,extended release 24 hr fluticasone propionate 50 1 spray intranasal DAILY 05/25/23 06/28/24 mcg/actuation nasal spray,suspension psyllium husk 3 gram/5.4 gram oral 3 g PO DAILY 05/27/23 06/28/24 powder (Reguloid (psyllium husk)) acetaminophen 650 mg 650 mg PO TID 11/30/23 06/28/24 tablet,extended release clonidine HCl 0.1 mg tablet 0.1 mg PO BID 11/30/23 06/28/24 lisinopril 40 mg tablet 40 mg PO DAILY 11/30/23 06/28/24 oxycodone 10 mg tablet 10 mg PO QID PRN 11/30/23 06/28/24 trazodone 150 mg tablet mg PO 11/30/23 06/28/24 celecoxib 200 mg capsule 200 mg PO PRN 02/15/24 06/28/24 insulin glargine 100 unit/mL (3 40 unit subcut BEDTIME 06/28/24 06/28/24 mL) subcutaneous pen (Lantus Solostar U-100 Insulin) Previous Rx's ?Medication ?Instructions ?Recorded meclizine 25 mg tablet 25 mg PO DAILY PRN dizziness #20 02/11/21 tabs metformin 500 mg tablet,extended 1,000 mg (2 x 500 mg) PO BID 30 11/20/21 release 24 hr days #120 tabs albuterol sulfate 90 mcg/actuation 90 mcg inhalation Q4H PRN Wheezing 03/04/22 aerosol inhaler (Ventolin HFA) #8.5 grams ondansetron 4 mg disintegrating 4 mg PO Q6-8H PRN nausea and 02/26/23 tablet vomiting #10 tabs docusate sodium 100 mg capsule 100 mg PO BID 14 days #28 caps 05/27/23 apixaban 5 mg tablet (Eliquis) 5 mg PO BID 90 days #180 tabs 06/20/23 commode (bedside commode) #1 ea 06/20/23 gabapentin 100 mg capsule 100 mg PO TID 90 days #270 caps 06/20/23 tamsulosin 0.4 mg capsule 0.4 mg PO DAILY 90 days #90 caps 06/20/23 fluticasone fur. 200 mcg-umeclid 1 ea inhalation DAILY #60 ea 07/31/23 62.5 mcg-vilant 25 mcg inhalat.powder (Trelegy Ellipta) levothyroxine 75 mcg tablet 75 mcg PO QAM #30 tabs 10/13/23 cholecalciferol (vitamin D3) 50 50 mcg PO QAM #30 tabs 01/07/24 mcg (2,000 unit) tablet rosuvastatin 40 mg tablet 40 mg PO DAILY #30 tabs 01/07/24 linaclotide 290 mcg capsule 290 mcg PO DAILY #30 caps 03/14/24 (Linzess) blood-glucose sensor (FreeStyle #2 ea 04/26/24 Manuelito 3 Sensor device) blood-glucose,four roll calender operator,cont #1 ea 04/26/24 (FreeStyle Manuelito 3 Robert) blood-glucose meter (OneTouch #1 ea 06/20/24 Verio Flex Meter) lancets 33 gauge (OneTouch Delica #100 ea 06/20/24 Plus Lancet) blood sugar diagnostic (OneTouch #100 ea 06/21/24 Verio test strips) semaglutide 2 mg/dose (8 mg/3 mL) 2 mg (0.75 mL) subcut QWEEK #3 mL 07/28/24 subcutaneous pen injector (OzempExploredge) dexlansoprazole 60 mg 60 mg PO DAILY #30 caps 08/18/24 capsule,biphase delayed release amoxicillin 875 mg-potassium 1 tab PO BID 7 days #14 tabs 08/26/24 clavulanate 125 mg tablet ondansetron 4 mg disintegrating 4 mg PO Q8H PRN nausea and 08/26/24 tablet vomiting #7 tabs Allergies Allergy/AdvReac Type Severity Reaction Status Date / Time hazelnut Allergy Mild per Verified 08/26/24 20:10 allergy skin test peanut Allergy Mild per Verified 08/26/24 20:10 allergy skin test PMF Past Medical History Medical History Asthma-COPD overlap syndrome Hypertension Diabetes MGUS (monoclonal gammopathy of unknown significance) Chronic restrictive lung disease Obesity (BMI 30.0-34.9) Cough due to SHANELLE inhibitor Eosinophilia Asthma T2DM (type 2 diabetes mellitus) Erosive gastritis Leg edema, left Hyperparathyroidism Vitamin D deficiency Multinodular thyroid Thyroid nodule Skin lesion of chest wall Type 2 diabetes mellitus with diabetic polyneuropathy Fibromyalgia Depression with anxiety Cervical cancer Osteoarthritis of left knee Osteopenia GERD (gastroesophageal reflux disease) Diabetes mellitus with hyperglycemia Meir's disease Other specified acquired hypothyroidism Hyperlipidemia LDL goal <100 Essential hypertension Vitamin B12 deficiency Other obesity due to excess calories BMI 35.0-35.9,adult Surgical History Hx of elbow surgery Hx of hand surgery Hx of arthroscopic knee surgery History of cholecystectomy History of arthroplasty of right knee Hx of hysterectomy Hx of foot surgery History of bilateral carpal tunnel release Hx of bilateral oophorectomy History of esophagogastroduodenoscopy (EGD) Hx of colonoscopy Family History Family History Father CVD (cardiovascular disease) Diabetes mellitus Stroke Mother Stroke Diabetes mellitus Breast cancer Hyperthyroidism Social History Social History Household Members: Spouse Housing: House Housing Other:: 2nd floor-2 family house Are you a primary home care provider to a significant other at home: No Do you presently have visiting nurse or other home services: Yes (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 Head: Atraumatic Eyes: Anicteric, Normal conjunctiva. ENT: Moist mucosa, no pallor. ? Neck: Supple. Skin: ?No observable rash or bruising on exposed or examined skin Respiratory: Breathing comfortably, No distress.Clear to auscultation bilaterally, symmetric chest expansion, No wheeze, rales, ronchi. Cardiovascular: Regular rate and rhythm. No murmurs or rub. Well perfused periphery, warm extremities. No edema. ? Abdominal: Moderate lower abdominal tenderness. Soft, no objective distension. No palpable masses or obvious organomegaly. ?No guarding, no rebound tenderness or other peritoneal findings. : No flank tenderness. Neuro: Alert. Gross movement of all extremities intact. ? Psych: Calm. Cooperative. MSK: No grossly visible deformity. Vital signs: See flowsheet Medical Decision Making Medical Decision Making MDM Narrative: 69-year-old female primarily with lower abdominal pain complicated recent history including colitis, DVT PE on anticoagulation. CT suggestive of colitis no anemia, bright red blood per rectum or melena. She is hemodynamically stable. Minimal leukocytosis with no neutrophil predominance. Hemoglobin stable. Reassuring chemistry with no signs of acidosis. Troponin not suggestive of acute myocardial ischemia. This is likely viral versus focal bacterial or inflammatory colitis we will start with conservative outpatient therapy with antibiotics bowel rest Differential Diagnosis Colitis appendicitis pelvic pathology Lab Data 08/26/24 20:27 08/26/24 20:27 Labs: Lab Results 08/26/24 08/26/24 Range/Units 20:27 22:46 WBC 11.8 H (4.8-10.8) X10*3/uL RBC 5.16 (4.20-5.50) X10*6/uL Hgb 14.6 (12.0-16.0) g/dl Hct 42.1 (37.0-47.0) % MCV 81.6 (80.0-98.0) fL MCH 28.3 (27.0-33.0) pg MCHC 34.7 (31.0-35.0) g/dl RDW 12.4 (11.0-16.0) % Plt Count 259 (160-400) X10*3/uL MPV 9.4 (9.4-12.3) fL Immature Gran % (Auto) 0.4 (0.0-0.4) % Neut % (Auto) 63.3 (45-73) % Lymph % (Auto) 26.5 (20-40) % Nolan % (Auto) 7.0 (2-11) % Eos % (Auto) 2.2 (0-4) % Baso % (Auto) 0.6 (0-2) % Lymph # (Auto) 3.1 (1.2-4.9) X10*3/uL Nolan # (Auto) 0.8 (0.1-1.2) X10*3/uL Eos # (Auto) 0.3 (0.0-0.4) X10*3/uL Baso # (Auto) 0.1 (0.0-0.2) X10*3/uL Abs Immat Gran (auto) 0.05 H (0.00-0.03) X10*3/uL Absolute Neuts (auto) 7.5 (2.0-8.3) x10*3/uL Absolute Nucleated RBC 0.000 (0.0-0.012) X10*3/uL Nucleated RBC % (auto) 0.0 (0.0-0.2) /100WBC Sodium 140 (135-145) mmol/L Potassium 3.5 (3.3-5.1) mmol/L Chloride 108 (96-108) mmol/L Carbon Dioxide 25 (22-29) mmol/L Anion Gap 11 L (12-20) BUN 13 (9-16) mg/dL Creatinine 0.73 (0.5-1.4) mg/dL Estim Creat Clear Calc 82.0 Estimated GFR > 60 Random Glucose 134 H (60-115) mg/dL Calcium 8.9 D (8.4-10.2) mg/dL Magnesium 1.9 (1.6-2.6) mg/dL Total Bilirubin 0.5 (0.0-1.0) mg/dL Direct Bilirubin 0.1 (0.0-0.5) mg/dL AST 23 (5-31) U/L ALT 19 (0-31) U/L Alkaline Phosphatase 110 (39-117) U/L Troponin I High Sens 6.3 D (<3.5-17.0) ng/L Total Protein 7.6 (6.5-8.0) g/dL Albumin 4.1 (3.5-5.0) g/dL Lipase 22 (8-78) U/L Urine Color Yellow Urine Appearance Clear Urine pH 8.0 (5.0-9.0) Ur Specific Lysite 1.020 (1.005-1.025) Urine Protein Negative (Neg-Trace) mg/dL Urine Glucose (UA) Negative (Negative) mg/dL Urine Ketones Negative (Negative) mg/dL Urine Blood Negative (Negative) Urine Nitrite Negative (Negative) Ur Leukocyte Esterase Small (1+) H (Negative) Urine RBC 0-2 (0-2) /HPF Urine WBC 0-5 (0-5) /HPF Ur Squamous Epith Cells 3-5 (0-2) /HPF Urine Bacteria None Seen (None Seen) Hyaline Casts 0-2 (0-2) /LPF Medications Administered Discontinued Medications Generic Name Dose Route Start Last Admin Trade Name Freq PRN Reason Stop Dose Admin Amoxicillin/Clavulanate Potassium 875 mg 08/27/24 00:15 08/27/24 00:21 Amoxicillin/Potassium Clav 875 Mg Tablet PO 08/27/24 00:16 875 mg ONCE ONE Administration Iohexol 100 ml 08/26/24 21:42 08/26/24 21:43 Iohexol 350 Mg/Ml 100 Ml Infus..Btl IV 08/26/24 21:43 85 ml ONCE ONE Administration Morphine Sulfate 4 mg 08/26/24 21:34 08/26/24 22:08 Morphine Sulfate 4 Mg/Ml Cartridge IVPUSH 08/26/24 21:35 4 mg ONCE ONE Administration Protocol Ondansetron HCl 4 mg 08/27/24 00:15 08/27/24 00:21 Ondansetron Odt 4 Mg Tab.Nobledis YOUNGINGU 08/27/24 00:16 4 mg ONCE ONE Administration Discharge Plan Discharge Clinical Impression: Colitis Clinical Impression: (Ruled Out): Endometriosis Patient Disposition: Home, Self-Care Instructions: Colitis (ED) Additional Instructions: DISCHARGE DIAGNOSES: Colitis, inflammation of the colon HISTORY OF PRESENTATION: ?Lower abdominal pain back pain like discomfort EMERGENCY DEPARTMENT COURSE,TESTS, TREATMENTS: While in the ED today you had a CT scan that showed thickening of the colon you had reassuring lab work. He did not have signs of bleeding or anemia DISCHARGE MEDICATIONS: ?[We have made no changes to your regular medication regimen] we have added an antibiotic we also recommend taking an [id number] probiotic or 1 yogurt per day while on this FOLLOW-UP: ?Call your primary or general physician soon as possible to discuss your symptoms, your ED visit and to discuss follow up plans Call your primary doctor for follow up INSTRUCTIONS ?& RETURN PRECAUTIONS: If any symptoms change first call your primary physician, if it is after-hours your primary doctors office should have a provider principal consultant you can speak with. If the symptoms are severe or very concerning to you then call 911 or return to the ED. Hussain Wolf MD Emergency Physician [facility] Prescriptions: New amoxicillin-pot clavulanate 875-125 mg tablet 1 tab PO BID 7 Days Qty: 14 0RF ondansetron 4 mg tablet,disintegrating 4 mg PO Q8H PRN (Reason: nausea and vomiting) Qty: 7 0RF No Action Trelegy Ellipta 200-62.5-25 mcg blister with device 1 ea inhalation DAILY Qty: 60 12RF levothyroxine 75 mcg tablet 75 mcg PO QAM Qty: 30 6RF rosuvastatin 40 mg tablet 40 mg PO DAILY Qty: 30 11RF cholecalciferol (vitamin D3) 50 mcg (2,000 unit) tablet 50 mcg PO QAM Qty: 30 11RF Linzess 290 mcg capsule 290 mcg PO DAILY Qty: 30 6RF (DME) lancets [OneTouch Delica Plus Lancet] 33 gauge misc See Rx Instructions topical .MEDSUPPLY Qty: 100 5RF Rx Instructions: As directed to check blood sugar twice daily. (DME) blood-glucose meter [OneTouch Verio Flex meter] Misc See Rx Instructions .ROUTE .MEDSUPPLY Qty: 1 0RF Rx Instructions: Use as directed to check blood glucose (DME) OneTouch Verio test strips Strip See Rx Instructions .ROUTE .MEDSUPPLY Qty: 100 5RF Rx Instructions: Use as directed to check blood glucose twice daily. Ozempic 2 mg/dose (8 mg/3 mL) pen injector 2 mg subcut QWEEK Qty: 3 5RF dexlansoprazole 60 mg capsule,biphase delayed releas 60 mg PO DAILY Qty: 30 1RF meclizine 25 mg tablet 25 mg PO DAILY PRN (Reason: dizziness) Qty: 20 0RF albuterol sulfate 0.63 mg/3 mL solution for nebulization 1 amp inhalation Q4H PRN (Reason: wheezing) Certavite-Antioxidant 18-400 mg-mcg tablet 1 tab PO DAILY albuterol sulfate [Ventolin HFA] 90 mcg/actuation HFA aerosol inhaler 90 mcg inhalation Q4H PRN (Reason: Wheezing) Qty: 8.5 0RF ondansetron 4 mg tablet,disintegrating 4 mg PO Q6-8H PRN (Reason: nausea and vomiting) Qty: 10 0RF docusate sodium 100 mg Capsule 100 mg PO BID 14 Days Qty: 28 0RF Reguloid (psyllium husk) 3 gram/5.4 gram powder 3 g PO DAILY Eliquis 5 mg tablet 5 mg PO BID 90 Days Qty: 180 0RF Rx Instructions: start taking on 06/29 tamsulosin 0.4 mg Capsule 0.4 mg PO DAILY 90 Days Qty: 90 0RF gabapentin 100 mg Capsule 100 mg PO TID 90 Days Qty: 270 0RF (DME) bedside commode Kit See Rx Instructions .Route Qty: 1 0RF Rx Instructions: As directed pioglitazone 15 mg tablet 15 mg PO QAM Jardiance 25 mg tablet 25 mg PO QAM cyanocobalamin (vitamin B-12) 1,000 mcg tablet, sublingual 1,000 mcg PO DAILY (DME) blood sugar diagnostic Strip See Rx Instructions Not Applicable BID Qty: 10 Rx Instructions: As directed metoprolol succinate 200 mg tablet extended release 24 hr 200 mg PO DAILY metformin 500 mg tablet extended release 24 hr 1,000 mg PO BID 30 Days Qty: 120 11RF fluticasone propionate 50 mcg/actuation spray,suspension 1 spray intranasal DAILY oxycodone 10 mg tablet 10 mg PO QID PRN trazodone 150 mg tablet PO clonidine HCl 0.1 mg tablet 0.1 mg PO BID acetaminophen 650 mg tablet extended release 650 mg PO TID lisinopril 40 mg tablet 40 mg PO DAILY celecoxib 200 mg capsule 200 mg PO PRN venlafaxine 150 mg capsule,extended release 24hr 150 mg PO DAILY (DME) FreeStyle Manuelito 3 Robert Misc See Rx Instructions .ROUTE .MEDSUPPLY Qty: 1 0RF Rx Instructions: Use daily to monitor blood glucose levels continuously. (DME) FreeStyle Manuelito 3 Sensor Device See Rx Instructions .ROUTE .MEDSUPPLY Qty: 2 11RF Rx Instructions: apply new sensor every 14 days insulin glargine [Lantus Solostar U-100 Insulin] 100 unit/mL (3 mL) insulin pen 40 unit subcut BEDTIME Interventions: ED Discharge Assessment Last Done: 08/27/24 00:38 Discharge Date/Time: 08/27/24 00:38 Print Language: Colombian
[2024-08-26] MEDS: iohexoL 350 MG/ML 100 ML INFUS..BTL IV (21:43)
[2024-08-26 22:08] VITALS: RESP 15
[2024-08-26] MEDS: Morphine Sulfate 4 MG/ML CARTRIDGE IVPUSH (22:08)
[2024-08-26 22:41] VITALS: BP 174/85; PULSE 89; RESP 13; O2SAT 100
--- NOTE | 2024-08-26 22:55 | PC.NURSE ---
Pt received morphine IV per orders. Bp improved slightly. aware.
[2024-08-26 23:04] LABS: Appearance Urine Clear; Color Urine Yellow; Glucose Urine UA Negative (Negative); Leukocyte Esterase Urine Small (1+) (Negative); Nitrite Urine Negative (Negative); UMIC TRIGGER UACC YES; Urine Blood Negative (Negative); Urine Ketones Negative (Negative); Urine Protein Negative (Neg-Trace)
[2024-08-26 23:31] LABS: Bacteria Urine None Seen (None Seen); Hyaline Casts Urine 0-2 /LPF (0-2); RBC Urine 0-2 /HPF (0-2); UACC Culture Trigger YES; WBC Urine 0-5 /HPF (0-5)
[2024-08-27] MEDS: Amoxicillin/Potassium Clav 875 MG TABLET PO (00:21)
[2024-08-27] MEDS: Ondansetron ODT 4 MG TAB.RAPDIS TRANSLINGU (00:21)
[2024-08-27 00:23] VITALS: BP 167/71; PULSE 89; RESP 19; TEMP 36.7; O2SAT 100
[2024-08-27 00:38] VITALS: BP 167/71; PULSE 89; RESP 19; TEMP 36.7; O2SAT 100
== END 2024-08-27 00:38 | disposition home or self-care (01) ==
PROVIDERS: Emergency Provider Emergency Medicine; PCP Nurse Practitioner Primary Care
DX: K52.9 Noninfective gastroenteritis and colitis, unspecified (principal); R10.30 Lower abdominal pain, unspecified; M54.50 Low back pain, unspecified; R07.9 Chest pain, unspecified; Z86.718 Personal history of other venous thrombosis and embolism
CPT/HCPCS: 36415; 71045; 72100; 74177; 80053; 81001; 81003; 82248; 83690; 83735; 84484; 85025; 87086; 93005; 96374; 99284; J2270; Q9967

== ENCOUNTER → 2024-08-26 19:53 | Outpatient (BNV) | payer OTHER, SELFPAY | PROVIDERS: Emergency Provider Emergency Medicine; PCP Nurse Practitioner Primary Care; Visit Provider Internal Medicine Cardiovascular Disease | DX: R07.9 Chest pain, unspecified (principal) | CPT/HCPCS: 93010 ==

== ENCOUNTER → 2024-08-26 21:00 | Outpatient (BNV) | payer OTHER, SELFPAY | PROVIDERS: Emergency Provider Emergency Medicine; PCP Nurse Practitioner Primary Care; Visit Provider Radiology Neuroradiology | DX: M51.360 Other intervertebral disc degeneration, lumbar region with discogenic back pain only (principal); M47.816 Spondylosis without myelopathy or radiculopathy, lumbar region; R07.89 Other chest pain; R06.02 Shortness of breath | CPT/HCPCS: 71045; 72100; 74177 ==

== ENCOUNTER 2024-09-05 12:30 | Outpatient (REF) | payer OTHER, SELFPAY ==
[2024-09-14 23:19] LABS: Lactoferrin, Fecal, Quant. 18.62 mcg/mL (<7.25)
== END 2024-09-05 12:31 | disposition home or self-care (01) ==
LOC: HO.LNP 12:30
PROVIDERS: Visit Provider Internal Medicine Gastroenterology
DX: K51.50 Left sided colitis without complications (principal); K21.9 Gastro-esophageal reflux disease without esophagitis; K55.9 Vascular disorder of intestine, unspecified
CPT/HCPCS: 83631

== ENCOUNTER 2024-09-05 13:21 | Outpatient (AMB) | payer OTHER, SELFPAY ==
--- NOTE | 2024-09-05 13:34 | MHC.OFFVIS ---
Vital Signs 09/05/24 13:40 Height 5 ft 5 in Weight 198 lb 6.656 oz BMI 33.0 BP 159/92 H Blood Pressure Location Lt brachial Position Sitting Pulse 85 Intake Visit Reasons: f/u gerd Intake Note: Lois presents in the office as a follow up for GERD. CC: She states that she is having concerns with her LUQ and lower abdomen - pains. Lots of diarrhea and also constipation at times as well. Lay Midwife Required: Yes Allergies hazelnut Allergy (Mild, Verified 09/05/24 13:34) per allergy skin test peanut Allergy (Mild, Verified 09/05/24 13:34) per allergy skin test HPI HPI f/u gerd: Details: 68 year old female with hx of T2DM (on Insulin), hypothyroidism, COPD, hypertension, hyperlipidemia, vitamin D deficiency, hyperparathyroidism and obesity who I am for f/u RECAP: I saw her for assessment for colitis as inpatient 06/06 Patient was initially admitted about 1 week prior to admission s/p L TKR. She had issues with urine retention and also had syncopal episodes with low blood pressure requiring narcan and fluids, ICU management with discovery of b/l PTE. She had noted diarrhea since surgery and worsening left sided constant aching pain 10/10 worse with eating food and relieved by taking morphine. she has some nausea, but denies vomiting. Stools are loose with small amounts of blood seen. Appetite remained poor, knee is healing nicely. Ct imaging x2 over last few days --latest one with desc and sigmoid colo mural thickening, no diverticulitis on fluid collections noted. Sigmoidoscopy: 05/2023: appearances consistent with ischemic colitis, Colonoscopy 01/05 with severe diverticulosis and removal of x [address] 09/07: possible mild colitis, or diverticulitis left colon INTERIM: 1 month of ongoing LLQ pain occ nausea epigastric discomfort, sometimes worse with food variable bowel habits she has occ diarrhea no vomiting she went to ED and got AB but no imrpovement in sx EXAM: GENERAL: The patient is well developed and nontoxic. VITAL SIGNS:see workflow HEENT: Nonicteric sclerae, PERRLA, EOMI. Oropharynx clear. Moist mucous membranes. Conjunctivae appear well perfused. No thyroid mass. CHEST: Chest wall is nontender. HEART: Regular rate and rhythm without murmurs. LUNGS: Clear to auscultation bilaterally. ABDOMEN: Soft, positive bowel sounds, mildly tender epigastrium and left side abdomen, no organomegaly.no flank tenderness SKIN: No rash, no excessive bruising, petechiae, or purpura. NEUROLOGIC: Cranial nerves II-XII intact without motor/sensory deficit. Psych: normal affect A/P: 1/ Possible colitis -IBD, maybe segmental colitis- SCAD 2/ some sx maybe from her meds takes opiates for chronic back pain and ozempic PLAN: 1/ check labs and fecal lactoferrin 2/ trial of apriso and see if helps 3/ may need colonoscopy repeat and EGD if ongoing sx PFSH Medical History Asthma-COPD overlap syndrome Hypertension Diabetes MGUS (monoclonal gammopathy of unknown significance) Chronic restrictive lung disease Obesity (BMI 30.0-34.9) Cough due to SHANELLE inhibitor Eosinophilia Asthma T2DM (type 2 diabetes mellitus) Erosive gastritis Leg edema, left Hyperparathyroidism Vitamin D deficiency Multinodular thyroid Thyroid nodule Skin lesion of chest wall Type 2 diabetes mellitus with diabetic polyneuropathy Fibromyalgia Depression with anxiety Cervical cancer Osteoarthritis of left knee Osteopenia GERD (gastroesophageal reflux disease) Diabetes mellitus with hyperglycemia Meir's disease Other specified acquired hypothyroidism Hyperlipidemia LDL goal <100 Essential hypertension Vitamin B12 deficiency Other obesity due to excess calories BMI 35.0-35.9,adult Surgical History Hx of elbow surgery Hx of hand surgery Hx of arthroscopic knee surgery History of cholecystectomy History of arthroplasty of right knee Hx of hysterectomy Hx of foot surgery History of bilateral carpal tunnel release Hx of bilateral oophorectomy History of esophagogastroduodenoscopy (EGD) Hx of colonoscopy Family History Father CVD (cardiovascular disease) Diabetes mellitus Stroke Mother Stroke Diabetes mellitus Breast cancer Hyperthyroidism Social History Household Members: Spouse Housing: House Housing Other:: 2nd floor-2 family house Are you a primary nurse healthcare manager to a significant other at home: No Do you presently have visiting nurse or other home services: Yes ([employer]) Alcohol intake: never Comment: continues with camera Patient Tobacco Use Status: Never used Tobacco Advance Directives Date on File: 03/06/23 service: No 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al status: disabled 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: Right Handed Female Reproductive History Menstrual Age of Menarche: 11 Physical Exam Vital Signs: Last Vital Signs Pulse 85 09/05/24 13:40 BP 159/92 H 09/05/24 13:40 BMI result Body Mass Index 33.0 Assessment & Plan Assessment & Plan (1) GERD (gastroesophageal reflux disease): Code(s): K21.9 - Gastro-esophageal reflux disease without esophagitis Category: Medical Plan: see above (2) Ischemic colitis: Code(s): K55.9 - Vascular disorder of intestine, unspecified Category: Medical Plan: see above Orders: Orders Lactoferrin, Fecal, Quant. Today K21.9 - Gastro-esophageal reflux disease without esophagitis, K51.50 - Left sided colitis without complications, K55.9 - Vascular disorder of intestine, unspecified C Reactive Protein Today K21.9 - Gastro-esophageal reflux disease without esophagitis, K55.9 - Vascular disorder of intestine, unspecified Complete Blood Count Auto Diff Today K21.9 - Gastro-esophageal reflux disease without esophagitis, K55.9 - Vascular disorder of intestine, unspecified Comprehensive Met. Panel Today K21.9 - Gastro-esophageal reflux disease without esophagitis, K55.9 - Vascular disorder of intestine, unspecified, K75.81 - Nonalcoholic steatohepatitis ([place]) T Spot TB Today K21.9 - Gastro-esophageal reflux disease without esophagitis, K55.9 - Vascular disorder of intestine, unspecified Hepatitis A,B,C Profile Today K21.9 - Gastro-esophageal reflux disease without esophagitis, K55.9 - Vascular disorder of intestine, unspecified Medications: New mesalamine ER (Apriso) 1.5 grams (4 x 0.375 gram) PO QAM 120 caps 2RF Coding Level of Care Code Est Pt Level 4 (49568) Diagnoses GERD (gastroesophageal reflux disease) K21.9 Ischemic colitis K55.9
[2024-09-05 13:40] VITALS: BP 159/92; PULSE 85; BMI 33.0
--- OUTSIDE RECORDS SUMMARY | 2024-09-05 14:43 | XMS_ITS | Encounter Summary ---
Author Organization [employer] Address [address] [place] [address] Care Team Providers Care Service Parts Driver Name Role Phone Breanna Zamudio Primary Care Provider [phone] Reason for Visit * Reason Onset Date Comments Med Refill 03/15/2024 Encounter Details Date Type Department Care Team ([facility] st Contact Info) Description 03/15/2024 Telephone [facility] MEDICINE [address] [place], [place] [phone] Breanna Zamudio ANP [address] [place], [place] [phone] Med Refill Social History Tobacco Use Types [...] EDT Travel History Travel Start Travel End [place] 07/11/2024 08/10/2024 documented as of this encounter Miscellaneous Notes * Telephone Encounter - Herman Aj - 03/15/2024 10:03 AM EST TC from pt requesting medication refill. Medications needing refill : oxyCODONE (Roxicodone) 10 MG immediate release tablet To be sent to: [facility] pharmacy documented in this encounter Plan of Treatment Upcoming Encounters Date Type Department Care Team (Late st Contact Info) Description 10/31/2024 1:30 PM EDT Telemedicine [facility] MED & PEDS [address] [place] [address] Sis Coppola RN [address] [place] [address] documented as of this encounter Visit Diagnoses Not on filedocumented in this encounter Care Teams Service Parts Driver Relationship Specialty Start Date End Date Breanna Zamudio ANP [address] [place] [id number] PCP - General Family Medicine 10/03/19 [facility] 07/31/23 documented as of this encounter
== END 2024-09-05 14:05 | disposition home or self-care (01) ==
LOC: HO.HGI 13:21
PROVIDERS: PCP Nurse Practitioner Primary Care; Visit Provider Internal Medicine Gastroenterology
DX: K21.9 Gastro-esophageal reflux disease without esophagitis (principal); K55.9 Vascular disorder of intestine, unspecified
CPT/HCPCS: 99214

== ENCOUNTER → 2024-09-05 13:21 | Outpatient (BNVA) | payer OTHER, SELFPAY | PROVIDERS: PCP Nurse Practitioner Primary Care; Visit Provider Internal Medicine Gastroenterology | DX: K51.50 Left sided colitis without complications (principal); K75.81 Nonalcoholic steatohepatitis (NASH); K21.9 Gastro-esophageal reflux disease without esophagitis; E55.9 Vitamin D deficiency, unspecified | CPT/HCPCS: 99212 ==

== ENCOUNTER 2024-09-06 12:22 | Outpatient (REF) | payer OTHER, SELFPAY ==
[2024-09-06 12:37] LABS: MANUAL DIFF FLAG NO
[2024-09-06 13:34] LABS: Basophils Absolute Auto 0.1 X10*3/uL (0.0-0.2); Basophils Percent Auto 0.8 % (0-2); Eosinophils Absolute Auto 0.2 X10*3/uL (0.0-0.4); Eosinophils Percent Auto 2.2 % (0-4); Hematocrit 40.8 % (37.0-47.0); Imm Gran Abs Auto 0.05 X10*3/uL (0.00-0.03); Imm Gran Pct Auto 0.6 % (0.0-0.4); Lymphocytes Absolute Auto 3.1 X10*3/uL (1.2-4.9); Lymphocytes Percent Auto 34.6 % (20-40); Mean Corpuscular HGB Conc 34.3 g/dl (31.0-35.0); Mean Corpuscular Hemoglobin 28.9 pg (27.0-33.0); Mean Corpuscular Volume 84.3 fL (80.0-98.0); Mean Platelet Volume 10.7 fL (9.4-12.3); Monocytes Absolute Auto 0.5 X10*3/uL (0.1-1.2); Monocytes Percent Auto 6.1 % (2-11); Neutrophils Percent Auto 55.7 % (45-73); Platelet Count 212 X10*3/uL (160-400); Red Blood Count 4.84 X10*6/uL (4.20-5.50); Red Cell Distribution Width 12.8 % (11.0-16.0); White Blood Count 8.9 X10*3/uL (4.8-10.8)
--- OUTSIDE RECORDS SUMMARY | 2024-09-06 13:53 | XMS_ITS | Encounter Summary ---
Author Organization [employer] Address [address] [place] [address] Care Team Providers Care Manager Six Sigma Name Role Phone Breanna Zamudio Primary Care Provider [phone] Reason for Visit * Reason Onset Date Comments Med Refill 03/15/2024 Encounter Details Date Type Department Care Team ([facility] st Contact Info) Description 03/15/2024 Telephone [facility] MEDICINE [address] [place], [place] [phone] Breanna Zamudio ANP [address] [place], [place] [phone] Med Refill Social History Tobacco Use Types [...] EDT Travel History Travel Start Travel End [place] 07/11/2024 08/10/2024 documented as of this encounter Miscellaneous Notes * Telephone Encounter - Herman Aj - 03/15/2024 10:03 AM EST TC from pt requesting medication refill. Medications needing refill : oxyCODONE (Roxicodone) 10 MG immediate release tablet To be sent to: [facility] pharmacy documented in this encounter Plan of Treatment Upcoming Encounters Date Type Department Care Team (Late st Contact Info) Description 10/31/2024 1:30 PM EDT Telemedicine [facility] MED & PEDS [address] [place] [address] Sis Coppola RN [address] [place] [address] documented as of this encounter Visit Diagnoses Not on filedocumented in this encounter Care Teams Manager Six Sigma Relationship Specialty Start Date End Date Breanna Zamudio ANP [address] [place] [phone] PCP - General Family Medicine 10/03/19 [facility] 07/31/23 documented as of this encounter
[2024-09-06 14:13] LABS: Alanine Aminotransferase 15 U/L (0-31); Albumin Level 4.2 g/dL (3.5-5.0); Alkaline Phosphatase 100 U/L (39-117); Anion Gap 14 (12-20); Aspartate Amino Transferase 24 U/L (5-31); Bilirubin Total 0.6 mg/dL (0.0-1.0); Blood Urea Nitrogen 12 mg/dL (9-16); Calcium 9.4 mg/dL (8.4-10.2); Carbon Dioxide 22 mmol/L (22-29); Chloride 107 mmol/L (96-108); Estimated Glomerular Filt Rate > 60; Glucose Random 201 mg/dL (60-115); Potassium 4.3 mmol/L (3.3-5.1); Sodium 139 mmol/L (135-145); Total Protein 7.6 g/dL (6.5-8.0)
[2024-09-07 08:03] LABS: HBc Num1 0.05 S/CO (0.00-0.79); HBsAGNum1 0.68 S/CO (0.00-0.99); Hepatitis A Antibody IgM 0.11 Index (0-0.79); Hepatitis B Core Antibody Nonreactive (Nonreactive); Hepatitis B Surface Antigen Negative (Negative); ~HepC Num1 0.12 S/CO (0.00-0.79); ~Hepatitis A Antibody IgM Nonreactive (Nonreactive); ~Hepatitis B Surface Antibody NONREACTIVE (Nonreactive); ~Hepatitis C Antibody Nonreactive (Nonreactive)
[2024-09-09 05:14] LABS: TS Negative Control Passed; TS Panel A 1; TS Panel B 0; TS Positive Control Passed; TSpotTB Negative (Negative)
== END 2024-09-06 12:23 | disposition home or self-care (01) ==
LOC: HO.LAB 12:22
PROVIDERS: PCP Nurse Practitioner Primary Care; Visit Provider Internal Medicine Gastroenterology
DX: K21.9 Gastro-esophageal reflux disease without esophagitis (principal); K55.9 Vascular disorder of intestine, unspecified; K75.81 Nonalcoholic steatohepatitis (NASH); Z11.1 Encounter for screening for respiratory tuberculosis
CPT/HCPCS: 36415; 80053; 85025; 86140; 86481; 86704; 86706; 86709; 86803; 87340

== ENCOUNTER 2024-11-01 12:40 | Outpatient (AMB) | payer OTHER, SELFPAY ==
--- NOTE | 2024-11-01 12:51 | MHC.OFFVIS ---
Vital Signs 11/01/24 12:53 Height 5 ft 5 in Weight 196 lb 3.382 oz BMI 32.6 BP 132/82 Blood Pressure Location Rt brachial Position Sitting Pulse 86 Pulse Source Pulse Oximeter Pulse Oximetry (%) 96 Oxygen Delivery Method Room Air Intake Visit Reasons: Type II diabetes Intake Note: Patient present today to follow up on Type 2 Diabetes Mellitus. Last Diabetic Eye exam: May 2024 Last Podiatry Visit: Pt does not see a high reach operator HgA1C: 7.1%, 11/01/2024 Random Glucose: 208 mg/dL Earthmoving Labourer Required: Yes Earthmoving Labourer Language: Director Of Alumni Relations Services: Earthmoving Labourer Present (VIA [employer] ROBIN) Earthmoving Labourer Name: Elizabeth #[id number] Information Interpreted: non-clinical & clinical Accompanied by: Self / Same As Patient Allergies hazelnut Allergy (Mild, Verified 11/01/24 12:52) per allergy skin test peanut Allergy (Mild, Verified 11/01/24 12:52) per allergy skin test Medication List - Last Reconciled 11/01/24 by CHEMA Elizabeth acetaminophen ER 650 mg PO TID albuterol sulfate 90 mcg/actuation (Ventolin HFA) 90 mcg inhalation Q4H PRN albuterol sulfate 1 amp inhalation Q4H PRN apixaban (Eliquis) 5 mg PO BID 90 days blood sugar diagnostic As directed blood sugar diagnostic (OneTouch Verio test strips) Use as directed to check blood glucose twice daily. blood-glucose meter (OneTouch Verio Flex Meter) Use as directed to check blood glucose blood-glucose sensor (FreeStyle Manuelito 3 Sensor device) apply new sensor every 14 days blood-glucose,driver/guide,cont (FreeStyle Manuelito 3 [place]) Use daily to monitor blood glucose levels continuously. celecoxib 200 mg PO PRN cholecalciferol (vitamin D3) 50 mcg PO QAM clonidine HCl 0.1 mg PO BID commode (bedside commode) As directed cyanocobalamin (vitamin B-12) 1,000 mcg PO DAILY dexlansoprazole 60 mg PO DAILY docusate sodium 100 mg PO BID 14 days empagliflozin (Jardiance) 25 mg PO QAM fluticasone propionate 50 mcg/actuation 1 spray intranasal DAILY wybvkanpzap-wqfzlpmtv-yggunbal 200-62.5-25 mcg (Trelegy Ellipta) 1 ea inhalation DAILY gabapentin 100 mg PO TID 90 days insulin glargine (Lantus Solostar U-100 Insulin) 40 units subcut BEDTIME lancets (OneTouch Delica Plus Lancet) As directed to check blood sugar twice daily. levothyroxine 75 mcg PO QAM linaclotide (Linzess) 290 mcg PO DAILY lisinopril 40 mg PO DAILY meclizine 25 mg PO DAILY PRN mesalamine ER (Apriso) 1.5 grams (4 x 0.375 gram) PO QAM metformin ER 1,000 mg (2 x 500 mg) PO BID 30 days metoprolol succinate ER 200 mg PO DAILY tnthdfpnzplt-pjyt-lcnqo acid 18-400 mg-mcg (Certavite-Antioxidant) 1 tab PO DAILY olmesartan 40 mg PO DAILY ondansetron 4 mg PO Q8H PRN oxycodone 10 mg PO QID PRN psyllium husk (Reguloid (psyllium husk)) 3 grams PO DAILY rosuvastatin 40 mg PO DAILY semaglutide (Ozempic) 2 mg (0.75 mL) subcut QWEEK tamsulosin 0.4 mg PO DAILY 90 days trazodone mg PO venlafaxine ER 75 mg PO DAILY HPI Comments Details: This is a 69-year-old female with a past medical history of nontoxic multinodular goiter, type 2 diabetes, hypothyroidism, secondary hyperparathyroidism, hypertension, hyperlipidemia , COPD and PE on chronic anticoagulation presenting for diabetes follow up. Palauan video translator interpreter Elizabeth [id number] Hemoglobin A1c 7.1% today down from 7.5%. She does not have CGM or meter with her today. Current regimen: Ozempic 2 mg weekly. Metformin ER 1000 mg b.i.d. Lantus 40 units at bedtime Jardiance 25 mg q.a.m. Past medication: Actos discontinued due to lower leg edema. Endorses mild neuropathy in her feet. Denies episodes of hypoglycemia since reducing her dose of Lantus. Hyperglycemia symptoms: denies Eye exam: Up-to-date The patient has hypertension, on lisinopril 40 mg, metoprolol succinate 200 mg Hyperlipidemia is treated with rosuvastatin 40 mg. ROS: Constitutional: No unexplained weight loss, fever, chills or night sweats. Eyes: No vision change Gastrointestinal: No anorexia, nausea, vomiting or diarrhea. No abdominal pain Neurologic: No headache, dizziness, syncope Skin: No rash Endocrine: No cold or heat intolerance. No polyuria or polydipsia. Physical exam: Constitutional: Alert, in no distress. Eyes: Pupils are equal, round and reactive to light. Extraocular muscles intact. Neck: Supple, Full range of motion. No lymphadenopathy. No palpable thyroid masses. Respiratory: Clear to auscultation. Cardiovascular: S1 S2 regular. No murmurs. Right foot: Warm and well perfused. No clubbing, cyanosis or edema. Intact DP pulse. Decreased vibratory sensation. Intact sensation to monofilament. No open wounds. Left foot: Warm and well perfused. No clubbing, cyanosis or edema. Intact DP pulse. Decreased vibratory sensation. Intact sensation to monofilament. No open wounds. [facility] Medical History Asthma-COPD overlap syndrome Hypertension Diabetes MGUS (monoclonal gammopathy of unknown significance) Chronic restrictive lung disease Obesity (BMI 30.0-34.9) Cough due to SHANELLE inhibitor Eosinophilia Asthma T2DM (type 2 diabetes mellitus) Erosive gastritis Leg edema, left Hyperparathyroidism Vitamin D deficiency Multinodular thyroid Thyroid nodule Skin lesion of chest wall Type 2 diabetes mellitus with diabetic polyneuropathy Fibromyalgia Depression with anxiety Cervical cancer Osteoarthritis of left knee Osteopenia GERD (gastroesophageal reflux disease) Diabetes mellitus with hyperglycemia Meir's disease Other specified acquired hypothyroidism Hyperlipidemia LDL goal <100 Essential hypertension Vitamin B12 deficiency Other obesity due to excess calories BMI 35.0-35.9,adult Surgical History Hx of elbow surgery Hx of hand surgery Hx of arthroscopic knee surgery History of cholecystectomy History of arthroplasty of right knee Hx of hysterectomy Hx of foot surgery History of bilateral carpal tunnel release Hx of bilateral oophorectomy History of esophagogastroduodenoscopy (EGD) Hx of colonoscopy Family History Father CVD (cardiovascular disease) Diabetes mellitus Stroke Mother Stroke Diabetes mellitus Breast cancer Hyperthyroidism Social History Household Members: Spouse Housing: House Housing Other:: 2nd floor-2 family house Are you a primary respiratory care assistant to a significant other at home: No Do you presently have visiting nurse or other home services: Yes ([employer] CONTROLL[employer]) Alcohol intake: never Comment: continues with camera Patient Tobacco Use Status: Never used Tobacco Advance Directives Date on File: 03/06/23 service: No 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al status: disabled 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: Right Handed Female Reproductive History Menstrual Age of Menarche: 11 Physical Exam Vital Signs: Last Vital Signs Pulse 86 11/01/24 12:53 Pulse Ox 96 11/01/24 12:53 Oxygen Delivery Method Room Air 11/01/24 12:53 BMI result Body Mass Index 32.6 Results AMB Hemoglobin A1c AMB Hemoglobin A1c 7.1 % Last Edit by ALBIN Flood on 11/01/24 13:08 Results Reviewed Results Reviewed: Laboratory Last Values Glucose (Clinic) 208 mg/dL (60-115) H 11/01/24 12:59 Hgb A1c (Clinic) 7.1 % (4.0-6.0) H 11/01/24 13:02 Laboratory Tests 08/15/22 08/15/22 04/17/23 12:35 13:45 15:56 Plt Count Creatinine Estimated GFR AST ALT Triglycerides 154 H Cholesterol 219 H LDL Cholesterol Direct 70 HDL Cholesterol 54 Vitamin B12 TSH Urine Microalbumin 12.0 Microalb/Creat Ratio 23.9 10/09/23 11/30/23 09/06/24 14:44 15:24 12:36 Plt Count 212 Creatinine 0.79 Estimated GFR > 60 AST 24 ALT 15 Triglycerides Cholesterol LDL Cholesterol Direct HDL Cholesterol Vitamin B12 401 TSH 1.18 Urine Microalbumin Microalb/Creat Ratio Assessment & Plan Assessment & Plan (1) Type 2 diabetes mellitus with diabetic polyneuropathy: Code(s): E11.42 - Type 2 diabetes mellitus with diabetic polyneuropathy Category: Medical Qualifiers: Diabetes mellitus [facility] insulin use: with terminal superintendent use Qualified Code(s): E11.42 - Type 2 diabetes mellitus with diabetic polyneuropathy; Z79.4 - terminal operator (current) use of insulin Plan Patient is happy with improvement in A1c. We discussed the goal is less than 7%. I would like to review her CGM data. She will come back with her reader in the next week or 2 so that I can review this and make changes to her regimen if needed. Advance patient to Manuelito 3 plus since manuelito 3 is being discontinued. Continue Lantus to 40 units nightly. Continue Metformin 1000 mg twice daily. Continue Jardiance 25 mg daily. Continue Ozempic 2 mg weekly. Reviewed lifestyle modifications and dietary recommendations with the patient. Complications of type 2 diabetes discussed with the patient. Follow up in 3 months for type 2 diabetes. She will have lab work done. Orders: Orders AMB Hemoglobin A1c Today E11.42 - Type 2 diabetes mellitus with diabetic polyneuropathy, Z79.4 - [facility] (current) use of insulin Creatinine Today E11.65 - Type 2 diabetes mellitus with hyperglycemia, E11.9 - Type 2 diabetes mellitus without complications, Z79.4 - [facility] (current) use of insulin Aspartate Amino Transferase Today E11.65 - Type 2 diabetes mellitus with hyperglycemia, Z79.4 - [facility] (current) use of insulin Alanine Aminotransferase Today E11.65 - Type 2 diabetes mellitus with hyperglycemia, Z79.4 - [facility] (current) use of insulin Microalbumin, Random (w Creat) Today E11.65 - Type 2 diabetes mellitus with hyperglycemia, E11.9 - Type 2 diabetes mellitus without complications, Z79.4 - [facility] (current) use of insulin Lipid Panel Today E11.65 - Type 2 diabetes mellitus with hyperglycemia, E78.5 - Hyperlipidemia, unspecified, Z79.4 - terminal operator (current) use of insulin Vitamin B12 Today E11.65 - Type 2 diabetes mellitus with hyperglycemia, Z79.4 - [facility] (current) use of insulin, Z91.89 - Other specified personal risk factors, not elsewhere classified Medications: New blood-glucose sensor (FreeStyle Manuelito 3 Plus Sensor device) Apply 1 new sensor every 15 days as directed to monitor blood glucose continuously. 2 ea 11RF Discontinued blood-glucose sensor (FreeStyle Manuelito 3 Sensor device) Discontinued Reason: Doctor's Order apply new sensor every 14 days 2 ea 11RF E11.42 - Type 2 diabetes mellitus with diabetic polyneuropathy, Z79.4 - [facility] (current) use of insulin Coding Level of Care Code Est Pt Level 4 (08688) Complex EM visit Add On G2211 Diagnoses Type 2 diabetes mellitus with diabetic polyneuropathy, with long-term current use of insulin E11.42; Z79.4 Diabetes mellitus [facility] insulin use: with [facility] use
[2024-11-01 12:53] VITALS: BP 132/82; PULSE 86; O2SAT 96; BMI 32.6
[2024-11-01 13:04] LABS: Glucose, Whole Blood 208 mg/dL (60-115)
--- OUTSIDE RECORDS SUMMARY | 2024-11-01 13:51 | XMS_ITS | Encounter Summary ---
Author Organization [employer] Address [address] [place] [address] Care Team Providers Care Coin Purse Framer Name Role Phone Breanna Zamudio Primary Care Provider [phone] Reason for Visit * Reason Onset Date Comments Med Refill 03/15/2024 Encounter Details Date Type Department Care Team (Late st Contact Info) Description 03/15/2024 Telephone [facility] MEDICINE [address] [place], [place] [phone] Breanna Zmaudio ANP [address] [place], [place] [phone] Med Refill Social History Tobacco Use Types [...] immediate release tablet To be sent to: [facility] pharmacy documented in this encounter Plan of Treatment Upcoming Encounters Date Type Department Care Team (Late st Contact Info) Description 01/23/2025 2:00 PM EST Telemedicine [facility] MED & PEDS [address] [place] [address] Sis Coppola RN [address] [place] [address] documented as of this encounter Visit Diagnoses Not on filedocumented in this encounter Care Teams Coin Purse Framer Relationship Specialty Start Date End Date Breanna Zamudio ANP [address] [place] [id number] PCP - General Family Medicine 10/03/19 [facility] 07/31/23 documented as of this encounter
== END 2024-11-01 13:27 | disposition home or self-care (01) ==
LOC: HO.ENCR 12:41
PROVIDERS: PCP Nurse Practitioner Primary Care; Visit Provider Physician Assistant Medical
DX: E11.42 Type 2 diabetes mellitus with diabetic polyneuropathy (principal); Z79.4 Long term (current) use of insulin

== ENCOUNTER → 2024-11-01 12:40 | Outpatient (BNVA) | payer OTHER, SELFPAY | PROVIDERS: PCP Nurse Practitioner Primary Care; Visit Provider Physician Assistant Medical | DX: E11.42 Type 2 diabetes mellitus with diabetic polyneuropathy (principal); Z79.4 Long term (current) use of insulin | CPT/HCPCS: 82947; 83036; 99212 ==

== ENCOUNTER 2024-11-03 12:49 | Outpatient (AMB) | payer OTHER, SELFPAY ==
--- OUTSIDE RECORDS SUMMARY | 2024-11-03 13:09 | XMS_ITS | Encounter Summary ---
Author Organization [employer] Address [address] 7[address] [place] [address] Care Team Providers Care Unit Aide Tech Name Role Phone Breanna Zamudio Primary Care Provider [phone] Reason for Visit * Reason Onset Date Comments Med Refill 03/15/2024 Encounter Details Date Type Department Care Team (Late st Contact Info) Description 03/15/2024 Telephone [facility] MEDICINE [address] [place], [place] [phone] Breanna Zamudio ANP 230 [place], [place] [phone] Med Refill Social History Tobacco Use Types [...] is your housing situation today? I have sheyrl jordan 03/19/[address] you [...] release tablet To be sent to: [facility] pharmacy documented in this encounter Plan of Treatment Upcoming Encounters Date Type Department Care Team (Late st Contact Info) Description 01/23/2025 2:00 PM EST Telemedicine [facility] MED & PEDS 505 [place] [address] Sis Coppola RN 505 [place] [address] documented as of this encounter Visit Diagnoses Not on filedocumented in this encounter Care Teams Unit Aide Tech Relationship Specialty Start Date End Date Breanna Zamudio ANP [address] [place] [address] PCP - General Family Medicine 10/03/19 [facility] 07/31/23 documented as of this encounter
--- NOTE | 2024-11-03 13:16 | MHC.OFFVIS ---
Vital Signs 11/03/24 13:20 Height 5 ft 5 in Weight 196 lb 3.382 oz BMI 32.6 Intake Visit Reasons: OV-LT TKA 05/26/23 NE- increased pain Intake Note: Lois is a 68 year old female who presents today for a follow up of her left knee s/p Left TKA 05/26/23. Patient reports that she has had continued pain of the knee.The left leg is swollen and is in immense pain with movement and would like an X-Ray and discuss future plans Allergies hazelnut Allergy (Mild, Verified 11/01/24 12:52) per allergy skin test peanut Allergy (Mild, Verified 11/01/24 12:52) per allergy skin test HPI HPI OV-LT TKA 05/26/23 NE- increased pain: Details: Lois is a 68 year old female who presents today for a follow up of her left knee s/p Left TKA 05/26/23. Patient reports that she has had continued pain of the knee.The left leg is swollen and is in immense pain with movement and would like an X-Ray and discuss future plans. She describes a lack of coordination in her foot veering off to 1 side. She has posterior foot pain. She denies fevers and chills. She states the knee aches all over. She states there is burning and numbness in her left foot that is new. She also describes lumbar back pain. COUNTS INCLUDE 234 BEDS AT THE [facility] Medical History Asthma-COPD overlap syndrome Hypertension Diabetes MGUS (monoclonal gammopathy of unknown significance) Chronic restrictive lung disease Obesity (BMI 30.0-34.9) Cough due to SHANELLE inhibitor Eosinophilia Asthma T2DM (type 2 diabetes mellitus) Erosive gastritis Leg edema, left Hyperparathyroidism Vitamin D deficiency Multinodular thyroid Thyroid nodule Skin lesion of chest wall Type 2 diabetes mellitus with diabetic polyneuropathy Fibromyalgia Depression with anxiety Cervical cancer Osteoarthritis of left knee Osteopenia GERD (gastroesophageal reflux disease) Diabetes mellitus with hyperglycemia Meir's disease Other specified acquired hypothyroidism Hyperlipidemia LDL goal <100 Essential hypertension Vitamin B12 deficiency Other obesity due to excess calories BMI 35.0-35.9,adult Surgical History Hx of elbow surgery Hx of hand surgery Hx of arthroscopic knee surgery History of cholecystectomy History of arthroplasty of right knee Hx of hysterectomy Hx of foot surgery History of bilateral carpal tunnel release Hx of bilateral oophorectomy History of esophagogastroduodenoscopy (EGD) Hx of colonoscopy Family History Father CVD (cardiovascular disease) Diabetes mellitus Stroke Mother Stroke Diabetes mellitus Breast cancer Hyperthyroidism Social History Household Members: Spouse Housing: House Housing Other:: 2nd floor-2 family house Are you a primary home care associate to a significant other at home: No Do you presently have visiting nurse or other home services: Yes (OUTSIDE MACHINIST) Alcohol intake: never Comment: continues with camera Patient Tobacco Use Status: Never used Tobacco Advance Directives Date on File: 03/06/23 service: No 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al status: disabled 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: Right Handed Female Reproductive History Menstrual Age of Menarche: 11 Physical Exam Exam Exam: Pleasant woman in no acute distress. Her left lower extremity has a total knee arthroplasty incision that is well healed. There is no effusion. There is no warmth or redness. She has 0-120 degrees of motion. There is mild tenderness about the distal quad tendon and on the lateral tibia but she has good quad strength and the knee is stable to varus and valgus stress. Her left foot has diminished sensation over the dorsum of the foot. She has 4/5 strength in dorsiflexion although this might be secondary to pain. Is no calf tenderness and she has an antalgic gait. Vital Signs: BMI result Body Mass Index 32.6 Results Reviewed Results Reviewed: I personally reviewed relevant radiographs. Left total knee arthroplasty in expected post operative position with no hardware complications or evidence of loosening. There is heterotopic bony formation in the distal quad tendon. Assessment & Plan Assessment & Plan (1) Status post knee replacement: Code(s): Z96.659 - Presence of unspecified artificial knee joint Category: Surgical Plan: Left knee mechanically looks well. There is no evidence of infection. She has some heterotopic ossification of the distal quadriceps tendon but this appears asymptomatic. Her gait is poor and her knee is subjectively painful. No orthopedic intervention warranted at this time. Continue activity as tolerated. (2) Lumbar back pain with radiculopathy affecting left lower extremity: Code(s): M54.16 - Radiculopathy, lumbar region Category: Medical Plan: She has new onset left foot numbness and tingling with the since not feeling coordinated with her left foot. She has lumbar back pain as well. I think it is reasonable to order an MRI of her lumbar spine. Orders: Orders XR knee LT 3V Today M25.562 - Pain in left knee MR lumbar spine wo con Today M54.16 - Radiculopathy, lumbar region Coding Level of Care Code Est Pt Level 3 (87217) Complex EM visit Add On G2211 Diagnoses Status post knee replacement Z96.659 Lumbar back pain with radiculopathy affecting left lower extremity M54.16
[2024-11-03 13:20] VITALS: BMI 32.6
== END 2024-11-03 13:59 | disposition home or self-care (01) ==
LOC: HO.HOS 12:49
PROVIDERS: PCP Nurse Practitioner Primary Care; Visit Provider Orthopaedic Surgery
DX: Z47.89 Encounter for other orthopedic aftercare (principal); Z96.652 Presence of left artificial knee joint; M54.16 Radiculopathy, lumbar region
CPT/HCPCS: 99213; G2211

== ENCOUNTER 2024-11-03 12:49 | Outpatient (REF) | payer OTHER, SELFPAY ==
--- NOTE | ~2024-11-03 | XR_ITS ---
EXAMINATION: XR KNEE, LEFT CLINICAL INFORMATION: M25.562 - Pain in left knee COMPARISON: May 26, 2023 TECHNIQUE: AP view in standing position both knees. Lateral and sunrise view of the left knee. FINDINGS: Metallic prosthesis with a femoral and tibial plateau component well-seated in the osseous structures, both knees. There is loosening along the tibial component of the left knee prosthesis. Calcifications in the soft tissues near the quadriceps tendon and patellar tendon. No acute cortical disruption or malalignment. XR/XR knee LT 3V IMPRESSION: Loosening within the tibial component of the left knee prosthesis. Electronically signed by: Yves Ricardo MD 11/03/2024 01:52 PM EDT
== END 2024-11-03 12:50 | disposition home or self-care (01) ==
LOC: HO.HOSX 12:49
PROVIDERS: PCP Nurse Practitioner Primary Care; Visit Provider Orthopaedic Surgery
DX: M25.562 Pain in left knee (principal); M54.16 Radiculopathy, lumbar region; M79.89 Other specified soft tissue disorders; M54.50 Low back pain, unspecified; R20.2 Paresthesia of skin; R20.0 Anesthesia of skin; Z96.652 Presence of left artificial knee joint
CPT/HCPCS: 73562; 99212

== ENCOUNTER → 2024-11-03 13:39 | Outpatient (BNV) | payer OTHER, SELFPAY | PROVIDERS: PCP Nurse Practitioner Primary Care; Visit Provider Radiology Diagnostic Radiology | DX: M25.562 Pain in left knee (principal); T84.033A Mechanical loosening of internal left knee prosthetic joint, initial encounter | CPT/HCPCS: 73562 ==

== ENCOUNTER 2024-11-14 12:43 | Outpatient (REF) | payer OTHER, SELFPAY ==
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
--- OUTSIDE RECORDS SUMMARY | 2024-11-14 13:02 | XMS_ITS | Encounter Summary ---
Author Organization [employer] Address [address] 7t [place] [address] Care Team Providers Care Rn Birthing Name Role Phone Breanna aZmudio Primary Care Provider [phone] Reason for Visit * Reason Comments Med Refill Encounter Details Date Type Department Care Team (Late st Contact Info) Description 10/10/2024 Refill [facility] [address] [place], [place] [phone] Breanna Zamudio ANP [address] [facility] [place], [place] [phone] Long-term current use of opiate analgesic; Osteoarthritis of multiple joints, unspecified osteoarthritis type; Arthralgia, unspecified joint Social History Tobacco Use Types [...] 01/23/2025 2:00 PM EST Telemedicine [facility] MED & PEDS 505 [place] [address] Sis Coppola, RN 505 [place] [address] documented as of this encounter Visit Diagnoses Diagnosis Long-term current use of opiate analgesic Encounter for long-term (current) use of other medications Osteoarthritis of multiple joints, unspecified osteoarthritis type Arthralgia, unspecified joint documented in this encounter Care Teams Rn Birthing Relationship Specialty Start Date End Date Breanna Zamudio ANP [address] [place] [address] PCP - General Family Medicine 10/03/19 [facility] 07/31/23 documented as of this encounter
--- OUTSIDE RECORDS SUMMARY | 2024-11-14 13:02 | XMS_ITS | Encounter Summary ---
Author Organization [employer] Address [address] 7t [place] [address] Care Team Providers Care Branch Rental Manager Name Role Phone Breanna Zamudio Primary Care Provider [phone] Reason for Visit * Reason Onset Date Comments Appointment Request 07/08/2024 Encounter Details Date Type Department Care Team ([facility] st Contact Info) Description 07/08/2024 Telephone [facility] MEDICINE 230 [place], [place] [phone] Breanna Zamudio ANP 230 [place], [place] [phone] Appointment Request Social History Tobacco Use Types [...] encounter Miscellaneous Notes * Telephone Encounter - Hong Simth - 07/08/2024 11:48 AM EDT Tc from pt requesting to R/s appt from 06/14/24. Pt is leaving to [place] on 07/09/24 at around 2 pm but pt was only given half of the pack for the Oxy and Spouse would like to see if anything can be done so that pt gets her full medication. Contact pt Spouse at [phone] documented in this encounter Plan of Treatment Upcoming Encounters Date Type Department Care Team (Late st Contact Info) Description 01/23/2025 2:00 PM EST Telemedicine [facility] MED & PEDS 505 [place] [address] Sis Coppola RN 505 [place] [address] documented as of this encounter Visit Diagnoses Not on filedocumented in this encounter Care Teams Branch Rental Manager Relationship Specialty Start Date End Date Breanna Zamudio ANP [address] [place] [address] PCP - General Family Medicine 10/03/19 [facility] 07/31/23 documented as of this encounter
--- OUTSIDE RECORDS SUMMARY | 2024-11-14 13:02 | XMS_ITS | Encounter Summary ---
Author Organization [employer] Address [address] 7t [place] [address] Care Team Providers Care Entry Level Management Name Role Phone Breanna Zamudio Primary Care Provider [phone] Reason for Visit * Reason Onset Date Comments FYI 08/31/2023 Encounter Details Date Type Department Care Team ([facility] st Contact Info) Description 08/31/2023 Telephone [facility] MEDICINE 230 [place], [place] [phone] Breanna Zamudio ANP 230 [place], [place] [phone] FYI Social History Tobacco Use Types Packs/Day [...] EDT Tc from Caroline (Physical Therapist) with [facility] calling to inform pt is getting discharge as of today from PT services. Any questions [phone] documented in this encounter Plan of Treatment Upcoming Encounters Date Type Department Care Team (Late st Contact Info) Description 01/23/2025 2:00 PM EST Telemedicine [facility] MED & PEDS 505 [place] [address] Sis Coppola, RN 505 [place] [address] documented as of this encounter Visit Diagnoses Not on filedocumented in this encounter Care Teams Entry Level Management Relationship Specialty Start Date End Date Breanna Zamudio ANP 230 [place] [address] PCP - General Family Medicine 10/03/19 [facility] 07/31/23 documented as of this encounter
--- OUTSIDE RECORDS SUMMARY | 2024-11-14 13:02 | XMS_ITS | Encounter Summary ---
Author Organization [employer] Address [address] [address] 7t [place] [address] Care Team Providers Care Cae Engineer Name Role Phone Breanna Zamudio Primary Care Provider [phone] Reason for Visit * Reason Onset Date Comments Med Refill 02/27/2023 Encounter Details Date Type Department Care Team (Late st Contact Info) Description 02/27/2023 Telephone [facility] MEDICINE 230 [place], [place] [phone] Breanna Zamudio ANP 230 [place], [place] [phone] Med Refill Social History Tobacco Use Types [...] Upcoming Encounters Date Type Department Care Team ([facility] st Contact Info) Description 01/23/2025 2:00 PM EST Telemedicine [facility] PEDS 505 [place] [address] Sis Coppola, AIDA 505 [place] [address] documented as of this encounter Visit Diagnoses Not on filedocumented in this encounter Care Teams Cae Engineer Relationship Specialty Start Date End Date Breanna Zamudio ANP [address] [place] [address] PCP - General Family Medicine 10/03/19 [facility] 07/31/23 documented as of this encounter
--- OUTSIDE RECORDS SUMMARY | 2024-11-14 13:02 | XMS_ITS | Encounter Summary ---
Author Organization [employer] Address [address] 7t [place] [address] Care Team Providers Care Professional Healthcare Representative Name Role Phone Breanna Zamudio Primary Care Provider [phone] Reason for Visit * Reason Onset Date Comments Med Refill 01/21/2024 Encounter Details Date Type Department Care Team (Late st Contact Info) Description 01/21/2024 Telephone [facility] MEDICINE 230 [place], [place] [phone] Breanna Zamudio ANP [address] [place], [place] [phone] Med Refill Social History Tobacco Use Types [...] immediate release tablet To be sent to: [facility] - [place], [place] - [address] [place] [address] documented in this encounter Plan of Treatment Upcoming Encounters Date Type Department Care Team ([facility] st Contact Info) Description 01/23/2025 2:00 PM EST Telemedicine [facility]S 505 [place] [address] Sis Coppola RN 505 [place] [address] documented as of this encounter Visit Diagnoses Not on filedocumented in this encounter Care Teams Professional Healthcare Representative Relationship Specialty Start Date End Date Breanna Zamudio ANP [address] [place] [address] PCP - General Family Medicine 10/03/19 [facility] 07/31/23 documented as of this encounter
--- OUTSIDE RECORDS SUMMARY | 2024-11-14 13:02 | XMS_ITS | Encounter Summary ---
Author Organization [employer] Address [address] 7t [place] [address] Care Team Providers Care Chief Catalyst Operator Name Role Phone Breanna Zamudio Primary Care Provider [phone] Reason for Visit * Reason Onset Date Comments Med Refill 10/27/2023 Encounter Details Date Type Department Care Team (Late st Contact Info) Description 10/27/2023 Telephone [facility] MEDICINE 230 [place], [place] [phone] Breanna Zamudio ANP 230 [place], [place] [phone] Med Refill Social History Tobacco Use Types [...] immediate release tablet To be sent to: [facility] Pharm[facility] documented in this encounter Plan of Treatment Upcoming Encounters Date Type Department Care Team (Late st Contact Info) Description 01/23/2025 2:00 PM EST Telemedicine [facility]S 505 [place] [address] Sis Coppola, RN 505 [place] [address] documented as of this encounter Visit Diagnoses Not on filedocumented in this encounter Care Teams Chief Catalyst Operator Relationship Specialty Start Date End Date Breanna Zamudio ANP [address] [place] [address] PCP - General Family Medicine 10/03/19 [facility] 07/31/23 documented as of this encounter
--- OUTSIDE RECORDS SUMMARY | 2024-11-14 13:02 | XMS_ITS | Encounter Summary ---
Author Organization [employer] Address [address] [place] [address] Care Team Providers Care Caregivers Non Medical Name Role Phone Breanna Zamudio Primary Care Provider [phone] Reason for Visit * Reason Onset Date Comments Medication Question 08/11/2024 Encounter Details Date Type Department Care Team ([facility] st Contact Info) Description 08/11/2024 Telephone [facility] MEDICINE 230 [place], [place] [phone] Breanna Zamudio ANP 230 [place], [place] [phone] Medication Question Social History Tobacco Use Types [...] encounter Miscellaneous Notes * Telephone Encounter - Sameera Dalton - 08/11/2024 2:55 PM EDT Tc from pt partner stating pt's missing 35 pills to complete for more than a month. States will be leaving out of [place] on Thursday and needs all her medications. Pt will be out for more than a month. Medication: OxyCODONE (Roxicodone) 10 MG immediate release tablet [phone] Patient [phone] Pt spouse documented in this encounter Plan of Treatment Upcoming Encounters Date Type Department Care Team ([facility] st Contact Info) Description 01/23/2025 2:00 PM EST Telemedicine [facility] MED & PEDS 505 [place] [address] Sis Coppola, AIDA 505 [place] [address] documented as of this encounter Visit Diagnoses Not on filedocumented in this encounter Care Teams Caregivers Non Medical Relationship Specialty Start Date End Date Breanna Zamudio ANP [address] [place] [address] PCP - General Family Medicine 10/03/19 [facility] 07/31/23 documented as of this encounter
--- OUTSIDE RECORDS SUMMARY | 2024-11-14 13:02 | XMS_ITS | Encounter Summary ---
Author Organization [employer] Address [address] 7t [place] [address] Care Team Providers Care Core Machine Operator Name Role Phone Breanna Zamudio Primary Care Provider [phone] Encounter Details Date Type Department Care Team ([facility] st Contact Info) Description 08/31/2023 Telephone [facility] MEDICINE 230 [place], [place] [phone] Breanna Zamudio ANP 230 [place], [place] [phone] Social History Tobacco Use Types Packs/Day Years [...] Upcoming Encounters Date Type Department Care Team ([facility] st Contact Info) Description 01/23/2025 2:00 PM EST Telemedicine [facility] MED & PEDS 505 [place] [address] Sis Coppola, RN 505 [place] [address] documented as of this encounter Visit Diagnoses Not on filedocumented in this encounter Care Teams Core Machine Operator Relationship Specialty Start Date End Date Breanna Zamudio ANP 230 [place] [address] PCP - General Family Medicine 10/03/19 [facility] 07/31/23 documented as of this encounter
--- OUTSIDE RECORDS SUMMARY | 2024-11-14 13:02 | XMS_ITS | Encounter Summary ---
Author Organization [email or web address] Address [address] [place] [address] Care Team Providers Care House Visitor Name Role Phone Breanna Zamudio Primary Care Provider [phone] Encounter Details Date Type Department Care Team ([facility] st Contact Info) Description 08/06/2023 Telephone [facility] MEDICINE 230 [place], [place] [phone] Breanna Zamudio ANP 230 [place], [place] [phone] Social History Tobacco Use Types Packs/Day Years [...] 01/23/2025 2:00 PM EST Telemedicine [facility] MED & PEDS 505 [place] [address] Sis Coppola, RN 505 [place] [address] documented as of this encounter Visit Diagnoses Not on filedocumented in this encounter Care Teams House Visitor Relationship Specialty Start Date End Date Breanna Zamudio ANP [address] [place] [address] PCP - General Family Medicine 10/03/19 [facility] 07/31/23 documented as of this encounter
--- OUTSIDE RECORDS SUMMARY | 2024-11-14 13:02 | XMS_ITS | Encounter Summary ---
Author Organization [employer] Address [address] [facility] [facility] [address] [facility] [address] 7[address] [place] [address] Care Team Providers Care Concrete Finishing Machine Operator Name Role Phone Breanna Zamudio Primary Care Provider [phone] Reason for Visit * Reason Onset Date Comments Medication Question 08/11/2024 Encounter Details Date Type Department Care Team ([facility] st Contact Info) Description 08/11/2024 Telephone [facility] MEDICINE [address] [place], [place] [phone] Breanna Zamudio ANP 230 [place], [place] [phone] Medication Question Social History Tobacco Use Types [...] * Telephone Encounter - Juliana Brown - 08/11/2024 3:00 PM EDT Tc from Jaime they let him know that they travel constantly and that the medicine below was sent incorrectly, he stated that he always gets 120 tablets and they gave him 84. Patient is leaving on Thursday for a trip - oxyCODONE (Roxicodone) 10 MG immediate release tablet please call urgently Jaime at [phone] documented in this encounter Plan of Treatment Upcoming Encounters Date Type Department Care Team (Late st Contact Info) Description 01/23/2025 2:00 PM EST Telemedicine [facility] MED & PEDS 505 [place] [address] Sis Coppola, AIDA 505 [place] [address] documented as of this encounter Visit Diagnoses Not on filedocumented in this encounter Care Teams Concrete Finishing Machine Operator Relationship Specialty Start Date End Date Breanna Zamudio ANP [address] [place] [address] PCP - General Family Medicine 10/03/19 [facility] 07/31/23 documented as of this encounter
--- OUTSIDE RECORDS SUMMARY | 2024-11-14 13:02 | XMS_ITS | Encounter Summary ---
Author Organization [employer] Address [address] [facility] [address] 7[address] [place] [address] Care Team Providers Care Hardener Helper Name Role Phone Breanna Zamudio Primary Care Provider [phone] Reason for Visit * Reason Onset Date Comments Med Refill 03/15/2024 Encounter Details Date Type Department Care Team (Late st Contact Info) Description 03/15/2024 Telephone [facility] MEDICINE 230 [place], [place] [phone] Breanna Zamudio ANP 230 [place], [place] [phone] Med Refill Social History Tobacco Use Types [...] immediate release tablet To be sent to: [facility] documented in this encounter Plan of Treatment Upcoming Encounters Date Type Department Care Team (Late st Contact Info) Description 01/23/2025 2:00 PM EST Telemedicine [facility] MED & PEDS 505 [place] [address] Sis Coppola RN 505 [place] [address] documented as of this encounter Visit Diagnoses Not on filedocumented in this encounter Care Teams Hardener Helper Relationship Specialty Start Date End Date Breanna Zamudio ANP [address] [place] [address] PCP - General Family Medicine 10/03/19 [facility] 07/31/23 documented as of this encounter
--- OUTSIDE RECORDS SUMMARY | 2024-11-14 13:02 | XMS_ITS | Encounter Summary ---
Author Organization [employer] [facility] Address [address] [place] [address] 7t [place] [address] Care Team Providers Care Atmospheric Drier Tender Name Role Phone Breanna Zamudio Primary Care Provider [phone] Reason for Visit * Reason Comments Med Refill Encounter Details Date Type Department Care Team (Late Contact Info) Description 11/21/2022 Refill [facility] MEDICINE 230 [place] [address] Breanna Zamudio ANP 230 [place] [address] Pain in unspecified joint Social History Tobacco [...] Info) Description 01/23/2025 2:00 PM EST Telemedicine [facility] MED & PEDS 505 [place], [place] [phone] Sis Coppola, AIDA 505 [place], [place] [phone] documented as of this encounter Visit Diagnoses Diagnosis Pain in unspecified joint documented in this encounter Care Teams Atmospheric Drier Tender Relationship Specialty Start Date End Date Breanna Zamudio ANP 230 [place] [address] PCP - General Family Medicine 10/03/19 [facility] 07/31/23 documented as of this encounter
--- OUTSIDE RECORDS SUMMARY | 2024-11-14 13:02 | XMS_ITS | Encounter Summary ---
Author Organization [employer] Address [address] [place] [address] Care Team Providers Care Electrical And Instrument Mechanic Name Role Phone Breanna Zamudio Primary Care Provider [phone] Reason for Visit * Reason Onset Date Comments Appointment Request 06/13/2024 Encounter Details Date Type Department Care Team ([facility] st Contact Info) Description 06/13/2024 Telephone [facility] MEDICINE 230 [place], [place] [phone] Breanna Zamudio ANP 230 [place], [place] [phone] Appointment Request Social History Tobacco Use Types [...] 2:32 PM EDT 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 documented in this encounter Plan of Treatment Upcoming Encounters Date Type Department Care Team (Late st Contact Info) Description 01/23/2025 2:00 PM EST Telemedicine [facility] MED & PEDS 505 [place] [address] Sis Coppola, RN 505 [place] [address] documented as of this encounter Visit Diagnoses Not on filedocumented in this encounter Care Teams Electrical And Instrument Mechanic Relationship Specialty Start Date End Date Breanna Zamudio ANP [address] [place] [address] PCP - General Family Medicine 10/03/19 [facility] 07/31/23 documented as of this encounter
--- OUTSIDE RECORDS SUMMARY | 2024-11-14 13:02 | XMS_ITS | Encounter Summary ---
Author Organization [employer] Address [address] [facility] 7t [place] [address] Care Team Providers Care Associate Director Of Biostatistics Name Role Phone Breanna Zamudio Primary Care Provider [phone] Reason for Visit * Reason Comments Med Refill Encounter Details Date Type Department Care Team (Late st Contact Info) Description 11/09/2024 Refill [facility] MEDICINE 230 [place], [place] [phone] Breanna Zamudio ANP 230 [place], [place] [phone] Hyperlipidemia associated with type 2 diabetes mellitus (CMS/HCC) Social History Tobacco Use Types Packs/Day [...] Info) Description 01/23/2025 2:00 PM EST Telemedicine [facility] MED & PEDS 505 [place] [address] Sis Coppola, AIDA 505 [place] [address] documented as of this encounter Visit Diagnoses Diagnosis Hyperlipidemia associated with type 2 diabetes mellitus (CMS/HCC) documented in this encounter Care Teams Associate Director Of Biostatistics Relationship Specialty Start Date End Date Breanna Zamudio ANP 230 [place] [address] PCP - General Family Medicine 10/03/19 [facility] 07/31/23 documented as of this encounter
--- OUTSIDE RECORDS SUMMARY | 2024-11-14 13:02 | XMS_ITS | Encounter Summary ---
Author Organization [employer] Address [address] [facility] 7[address] [place] [address] Care Team Providers Care Field Sales Trainer Name Role Phone Breanna Zamudio Primary Care Provider [phone] Reason for Visit * Reason Onset Date Comments Durable Medical Equipment 09/08/2022 Encounter Details Date Type Department Care Team (Late st Contact Info) Description 09/08/2022 Telephone [facility] MEDICINE 230 [place], [place] [phone] Breanna Zamudio ANP 230 [place] [address] Durable Medical Equipment Social History Tobacco Use [...] machines, please see notes,. Please contact at [phone] [place]e * Telephone Encounter - RICARDO Caraballo - 09/19/2022 6:26 PM EDT Yes, of course. Thank you. Will place signed RX on your desk. * Telephone Encounter - Madhuri Doe - 09/18/2022 1:56 PM EDT Tc from [facility] with [facility] requesting status on nebulizer. States if script has not been sent to [facility], fax to [facility]. FAX: [phone] Please contact [facility] at [phone] ext [phone] * Telephone Encounter - Rosalinda Rucker - 09/08/2022 3:29 PM EDT Tc from patient requesting a new script for a nebulizer machine. States current one broke. documented in this encounter Plan of Treatment Upcoming Encounters Date Type Department Care Team (Late st Contact Info) Description 01/23/2025 2:00 PM EST Telemedicine [facility] MED & PEDS 505 [place] [address] Sis Coppola, RN 505 [place] [address] documented as of this encounter Visit Diagnoses Not on filedocumented in this encounter Care Teams Field Sales Trainer Relationship Specialty Start Date End Date Breanna Zamudio ANP [address] [place] [address] PCP - General Family Medicine 10/03/19 [facility] 07/31/23 documented as of this encounter
--- OUTSIDE RECORDS SUMMARY | 2024-11-14 13:02 | XMS_ITS | Encounter Summary ---
Author Organization [employer] Address [address] [facility] 7t [place] [address] Care Team Providers Care Academic Coach Name Role Phone Breanna Zamudio Primary Care Provider [phone] Reason for Visit * Reason Comments Med Refill Encounter Details Date Type Department Care Team ([facility] Contact Info) Description 04/07/2022 Refill [facility] MED & PEDS 505 [place] [address] Breanna Zamudio ANP 230 [place], [place] [phone] Pain in unspecified joint Social History Tobacco [...] Upcoming Encounters Date Type Department Care Team ([facility] Contact Info) Description 01/23/2025 2:00 PM EST Telemedicine [facility] MED & PEDS 505 [place] [address] Sis Coppola, AIDA 505 [place] [address] documented as of this encounter Visit Diagnoses Diagnosis Pain in unspecified joint documented in this encounter Care Teams Academic Coach Relationship Specialty Start Date End Date Breanna Zamudio ANP [address] [place] [address] PCP - General Family Medicine 10/03/19 [facility] 07/31/23 documented as of this encounter
--- OUTSIDE RECORDS SUMMARY | 2024-11-14 13:02 | XMS_ITS | Clinical Summary ---
Author Organization [employer] Address [address] [place] [address] Care Team Providers Care Automotive Sales Manager Name Role Phone [place] Cifuentes Primary Care Provider [phone] Allergies No known active allergies Medications Ventolin HFA 108 (90 Base) MCG/ACT inhaler Inhale 1 puff every 4 (four) hours if needed for wheezing. Active Alcohol Swabs (SM Alcohol Prep) 70 % pads USE TWICE DAILY DIRECTED Active Blood Glucose Monitoring Suppl (GetTaxiTouch Verio Flex System) w/Device kit TEST BLOOD [...] 34 UNITS SUBCUTANEOUSLY EVERY EVENING Active Lancets (GetTaxiTouch Delica Plus [id number]) misc TEST BLOOD SUGAR TWICE DAILY Active naloxone (Narcan) 4 mg/0.1 mL nasal spray FOR SUSPECTED OPIOID OVERDOSE. SPRAY 0.1mL IN ONE NOSTRIL. REPEAT IN ALTERNATE NOSTRIL 2-3 MINUTES IF NEEDED. SEEK MEDICAL ATTENTION IMMEDIATELY EVEN IF PATIENT RESPONDS. Active rosuvastatin (Crestor) 40 MG tablet Take 1 tablet by mouth 1 (one) time each day. Active Respiratory Therapy Supplies (Nebulizer) deviceIndication s:Moderate [...] ONCE A WEEK 024 Active Continuous Glucose Platform Builder (FreeStyle Manuelito 2 [place]) device Use as directed 024 Active Continuous Glucose Sensor (FreeStyle Manuelito 2 Sensor) [facility] Every 2 weeks [...] times daily. 60 tablet 2 024 Active acetaminophen (Tylenol 8 Hour) 650 MG ER tabletIndication s:Ischemic colitis (CMS/HCC) TAKE 1 TABLET BY MOUTH EVERY 8 HOURS NEEDED SWALLOW WHOLE WITH WATER DO NOT BREAK, CRUSH, DISSOLVE OR CHEW 90 tablet 024 Active insulin pen needle (Pentips) 32G x 4 mm miscIndications: Hyperlipidemia associated with type 2 diabetes mellitus (CMS/HCC) Use as instructed 100 each 5 024 Active Multiple Vitamins-Iron (Tab-A-Saima/Iron /Beta Carotene) tablet TAKE 1 TABLET BY MOUTH EVERY DAY WITH FOOD 90 tablet 3 024 Active traZODone (Desyrel) 150 MG tabletIndication s:Insomnia disorder with non-sleep disorder mental comorbidity TAKE 2 TABLETS BY MOUTH EVERY DAY AT BEDTIME 60 tablet 5 025 Active metoprolol succinate XL (Toprol-XL) 200 [...] or chew. 90 capsule 1 025 Active albuterol 0.63 MG/3ML nebulizer solutionIndicati ons:Moderate persistent asthma without complication INHALE 1 AMPULE USING A NEBULIZER EVERY 4 TO 6 HOURS NEEDED FOR WHEEZING OR SHORTNESS OF BREATH FOR (for asthma) 75 mL 2 025 Active cyclobenzaprine (Flexeril) 5 MG tabletIndication s:Acute right-sided low back pain without sciatica TAKE 1 TABLET BY MOUTH UP TO THREE TIMES DAILY NEEDED 30 tablet 025 Active fluticasone (Flonase) 50 MCG/ACT nasal sprayIndications :COVID-19 INSTILL 1 SPRAY IN EACH NOSTRIL ONCE DAILY IN THE MORNING 16 g 2 025 Active olmesartan (Benicar) 40 MG tabletIndication s:Essential hypertension TAKE 1 TABLET BY MOUTH EVERY DAY 90 tablet 025 Active levothyroxine (Synthroid, Levoxyl) 75 MCG tabletIndication s:Hypothyroidism , unspecified type TAKE 1 TABLET BY MOUTH EVERY DAY BEFORE BREAKFAST 90 tablet 1 025 Active oxyCODONE (Roxicodone) 10 MG immediate release tabletIndication s:Long-term current use of opiate analgesic,Osteoa rthritis of multiple joints, unspecified osteoarthritis type,Arthralgia, unspecified joint Take 1 tablet (10 mg) by mouth every 6 (six) hours if needed for severe pain. Do not start before November 09, 2024. 120 tablet 025 2024 Active TRUEplus Glucose 4 g chewable tabletIndication s:Hyperlipidemia associated with type 2 diabetes mellitus (CMS/HCC) CHEW 4 TABLETS NEEDED FOR low blood sugar (LESS THAN 70mg/dL) 50 tablet 12 025 Active glucose (BD Glucose) 5 g chewable tabletIndication s:Hyperlipidemia associated with type 2 diabetes mellitus (CMS/HCC) Chew 3 tablets (15 g) if needed for low blood sugar. 50 tablet 12 024 2024 Discontinued levothyroxine (Synthroid, Levoxyl) 75 MCG tabletIndication s:Hypothyroidism , unspecified type TAKE 1 TABLET BY MOUTH EVERY DAY BEFORE BREAKFAST 90 tablet 1 025 2024 Discontinued olmesartan (Benicar) 40 MG tabletIndication s:Essential hypertension Take 1 tablet (40 mg) by mouth Once per day. 90 tablet 025 2024 Discontinued(R eorder (will not trigger notification to Pharmacy)) oxyCODONE (Roxicodone) 10 MG immediate release tabletIndication s:Long-term current use of opiate analgesic,Osteoa rthritis of multiple joints, unspecified osteoarthritis type,Arthralgia, unspecified joint Take 1 tablet (10 mg) by mouth every 6 (six) hours if needed for severe pain. 120 tablet 025 2024 Discontinued(R eorder (will not trigger notification to Pharmacy)) Active Problems Problem Noted Date Diagnosed Date Long-term current use of opiate analgesic 2024 Mixed stress and urge urinary incontinence 06/15 Presence of IVC filter 12/02/2023 Ischemic colitis 07/31/2023 Encounter for insertion of p rosthetic knee after prior removal of knee prosthesis 07/20/2023 Bilateral leg edema 12/15/2022 Assessment & Plan [...] edema. I d/w patient that this a exterminator issue to fu with PCP, encouraged tight [...] 3-4w Mixed anxiety and depressive disorder 02/16/2012 Resolved Problems Problem Noted Date Diagnosed Date Resolved Date Pre-op examination 05/24/2023 5 Assessment & Plan (05/26/2023 6:15 AM EDT): [...] BMP and hgb A1c completed COVID-19 03/19/2023 08/09/2024 Assessment & Plan (03/19/2023 11:50 AM EST): Rx Paxlovid x 5 days, [place] interactions module checked, she will hold Crestor [...] 72 hours (temperature should be less than 100 F without medication). Encounters Date Type Department Care Team Description 11/09/2024 Refill [facility] [address] [place] [address] [place] Cifuentes ANP Hyperlipidemia associated with type 2 diabetes mellitus ([facility]) 11/03/2024 Refill [facility] [address] [place] [address] [place] Cifuentes ANP Long-term current use of opiate analgesic; Osteoarthritis of multiple joints, unspecified osteoarthritis type; Arthralgia, unspecified joint 11/01/2024 Orders Only GENERIC EXTERNAL DATA DEPARTMENT Provider, Generic External Data 10/31/2024 1:30 PM EDT Telemedicine [facility] [address] [place] [address] Sis Coppola RN Long-term current use of opiate analgesic 10/31/2024 Telephone [facility] [address] [place] [phone] [place]ia Cifuentes ANP Appointment Request 10/31/2024 Travel 10/31/2024 Refill [facility] [address] [place] [phone] [place] Cifuentes ANP Hypothyroidism, unspecified type 10/28/2024 Refill [facility] [address] [place] [phone] [place] Cifuentes ANP Essential hypertension 10/10/2024 Refill [facility] [address] [place] [address] [place] Cifuentes ANP Long-term current use of opiate analgesic; Osteoarthritis of multiple joints, unspecified osteoarthritis type; Arthralgia, unspecified joint 10/10/2024 Refill [facility] [address] [place] [phone] [place] Cifuentes ANP Long-term current use of opiate analgesic; Osteoarthritis of multiple joints, unspecified osteoarthritis type; Arthralgia, unspecified joint 10/01/2024 Refill [facility] [address] [place] [phone] [place]ia Cifuentes ANP COVID-19 09/07/2024 Telephone [facility] [address] [place] [phone] Bria Redmond RN ER Follow-up 09/06/2024 Orders Only [facility] [address] [place] [phone] [place]ia Cifuentes ANP 09/05/2024 Refill [facility] [address] [place] [address] Sis Coppola RN Long-term current use of opiate analgesic (Primary Dx); Osteoarthritis of multiple joints, unspecified osteoarthritis type; Arthralgia, unspecified joint 09/05/2024 Telephone [facility] [address] [place] [address] Albania Cifuentes ANP Med Refill 08/26/2024 Orders Only GENERIC EXTERNAL DATA DEPARTMENT Provider, Generic External Data 08/17/2024 Refill [facility] [address] [place] [address] [place]ia Cifuentes ANP Acute right-sided low back pain without sciatica from Last 3 Months Immunizations Immunization Administration Dates Next Due Hep A, Adult [...] Sign Reading Time Taken Comments Blood Pressure 160/90 08/09/2024 1:27 PM EDT Pulse 83 08/09/2024 1:15 PM EDT Temperature 36.8 C (98.2 F) 05/12/2024 1:53 PM EST Respiratory Rate 16 08/09/2024 1:15 PM EDT Oxygen Saturation 98% 05/12/2024 1:53 PM EST Inhaled Oxygen Concentration - - Weight 88.5 kg (195 lb) 08/09/2024 1:15 PM EDT Height 165.1 cm (5' 5 ) 08/09/2024 1:15 PM EDT Body Mass Index 32.45 08/09/2024 1:15 PM EDT Plan of Treatment Upcoming Encounters Date Type Department Care Team ([facility] st Contact Info) Description 01/23/2025 2:00 PM EST Telemedicine [facility] [address] [place] [address] Sis Coppola, RN [address] [place] [address] Health Maintenance Due Date Last Done Comments CT Colonography 1955 FIT DNA/Cologuard 1955 FIT 1955 FOBT 1955 Sigmoidoscopy 1955 Eye Exam 1964 Alcohol/Substance Use Screening 1966 Hepatitis B Vaccines (3 of 3 - 19+ 3-dose series) 01/04/2008 11/09/2007, 11/09/2007, 04/14/2006, Additional history exists RSV Patients and Patients Aged 60 years or older (1 - Risk 60-74 years 1-dose series) 2014 Zoster Vaccines (2 of 3) 11/19/2016 09/24/2016, 09/13 Diabetes: Urine Protein Screening 08/16/2023 08/15/2022, 11/21/2021, 07/09/2020, Additional history exists Lipid Panel 08/16/2023 08/15/2022, 0604/2022, 10/04/2019 Depression Screening 03/19/2024 03/19/2023, 03/19/19 24 SDOH Screening 03/26/2024 03/26/2023 COVID-19 Vaccine ( season) 2024 05/12/2024, 07/07/2022, 03/25/2021, Additional history exists Diabetes: Hemoglobin A1C 11/09/2024 025, 05/12/2024, 11/26/2023, Additional history exists Influenza Vaccine (#1) 2024 3, 04/02/2022, 03/10/2018, Additional history exists Diabetes: Foot Exam 04/26/2025 04/26/2024 Mammogram 07/07/2025 07/07/2024, 12/07/2018 Tobacco Screening 08/09/2025 08/09/2024 DTaP/Tdap/Td Vaccines (2 - Td or Tdap) 09/24/2026 09/24/2016, 04/14/2006, 04/14/2006 Colonoscopy 12/24/2027 12/23/2022 Colorectal Cancer Screening 12/24/2027 Hepatitis A Vaccines Aged Out 11/09/2007, 11/09/2007, 04/14/2006, Additional history exists No longer eligible based on patient's age to complete this topic Pneumococcal Vaccine: 50+ Years Completed 07/07/2022, 07/26/2018, 11/09/2007 Hepatitis C Screening Completed 09/06/2024 HIB Vaccines Aged Out No longer eligi ble based on patient's age to complete this topic HPV Vaccines Aged Out No longer eligi ble based on patient's age to complete this topic IPV Vaccines Aged Out No longer eligi ble based on patient's age to complete this topic Meningococcal B Vaccine Aged Out No l onger eligible based on patient's age to complete [...] Procedure Name Priority Date/Time Associated Diagnosis Comments XR KNEE 3 VIEWS LEFT Routine 11/03/2024 12:39 PM EDT GLUCOSE, WHOLE BLOOD Routine 11/01/2024 12:59 PM EDT T-SPOT(R).TB Routine 09/06/2024 12:36 PM EDT HEPATITIS PANEL, GENERAL Routine 09/06/2024 12:36 PM EDT C-REACTIVE PROTEIN Routine 09/06/2024 12 :36 PM EDT COMPREHENSIVE METABOLIC PANEL Routine 09/06/2024 12:36 PM EDT CBC WITH AUTO DIFFERENTIAL Routine 09/06/2024 12:[address] ABDOMEN PELVIS W CONTRAST Routine 08/26/2024 11:13 PM EDT URINALYSIS, COMPLETE, WITH REFLEX TO CULTURE Routine 08/26/2024 10:46 PM EDT CULTURE, URINE, ROUTINE Routine 08/26/2024 10:46 PM EDT XR CHEST 1 VIEW Routine 08/26/2024 10:14 PM EDT XR LUMBAR SPINE 2-3 VIEWS Routine 08/26/2024 10:08 PM EDT POCT GLYCATED HEMOGLOBIN, TOTAL Routine 08/09/2024 1:41 PM EDT Hyperlipidemia associated with type 2 diabetes mellitus (CMS/HCC) BI MAMMOGRAM SCREENING TOMOSYNTHESIS BILATERAL Routine 07/07/2024 12:21 PM EDT HM COLONOSCOPY Routine 12/23/2022 ALBUMIN, RANDOM URINE W/CREATININE Routine 08/15/2022 1:45 PM EDT DIRECT LDL Routine 08/15/2022 12:35 PM EDT from Last 3 Months or Most Recently Relevant to Health Maintenance Results * XR Knee 3 Views Left (11/03/2024 12:39 PM EDT) Anatomical Region Laterality Modality Lower Extremities, Knee Left Radiogra phic Imaging 11/03/2024 12:3 9 PM EDT Narrative 11/03/2024 1:55 PM EDT [facility] [address] [place] [address] [address] [place] [address] XRay Report Signed Patient: Lois Dalton MR#: [id number] 1 : 1955 Acct:[id number] Age/Sex: 69 / F ADM Date: 11/03/24 Loc: JORDANA Attending Dr: Vijay Weems MD Ordering Physician: Vijay Weems MD Date of Service: 11/03/24 Procedure(s): XR knee LT 3V Accession Number(s): [id number] cc: Vijay Weems MD; [place] CIFUENTES NP EXAMINATION: XR KNEE, LEFT CLINICAL INFORMATION: M25.562 - Pain in left knee COMPARISON: May 26, 2023 TECHNIQUE: AP view in standing position both knees. Lateral and sunrise view of the left knee. FINDINGS: Metallic prosthesis with a femoral and tibial plateau component well-seated in the osseous structures, both knees. There is loosening along the tibial component of the left knee prosthesis. Calcifications in the soft tissues near the quadriceps tendon and patellar tendon. No acute cortical disruption or malalignment. XR/XR knee LT 3V IMPRESSION: Loosening within the tibial component of the left knee prosthesis. Electronically signed by: Yves Ricardo MD 11/03/2024 01:52 PM EDT Dictated By: Yves Christianson MD Signed By: <Electronically signed by Yves Gregg MD in OV> 11/03/24 1352 DD/ 1239 TD/TT: 11/03/24 1345 [employer]: Procedure Note Donotuseinterpreter, Image - 11/03/2024 [facility] [address] [place] [address] [address] [place] [address] XRay Report Signed Patient: Arnav Dalton#: [id number] 1 : 5Acct:[id number] Age/Sex: 69 / FADM Date: 11/03/24 Loc: JORDANA Attending Dr: Vijay Weems MD Ordering Physician: Vijay Weems MD Date of Service: 11/03/24 Procedure(s): XR knee LT 3V Accession Number(s): [id number] cc: Vijay Weems MD; [place] CIFUENTES NP EXAMINATION: XR KNEE, LEFT CLINICAL INFORMATION: M25.562 - Pain in left knee COMPARISON: May 26, 2023 TECHNIQUE: AP view in standing position both knees. Lateral and sunrise view of the left knee. FINDINGS: Metallic prosthesis with a femoral and tibial plateau component well-seated in the osseous structures, both knees. There is loosening along the tibial component of the left knee prosthesis. Calcifications in the soft tissues near the quadriceps tendon and patellar tendon. No acute cortical disruption or malalignment. XR/XR knee LT 3V IMPRESSION: Loosening within the tibial component of the left knee prosthesis. Electronically signed by: Yves Ricardo MD 11/03/2024 01:52 PM EDT RP Dictated By: Yves Christianson MD Signed By: <Electronically signed by Yves Gregg MDin OV> 11/03/24 1352 DD/ 1239 TD/TT: 11/03/24 1345 [employer]: [facility] External Provider IMG XR PROCEDURES Final Result * (ABNORMAL) Glucose, Whole Blood (11/01/2024 12:59 PM EDT) [facility] Glucose, Whole Blood 208(H) 60 - 115 mg/dL [facility] Comment:METER #: [id number] 0Testing performed in the Endocrinology Department [address] , [address], [facility]. 11/01/2024 12:5 9 PM EDT 11/01/2024 1:03 PM EDT Generic External Data Provider LAB BLOOD ORDERAB LES Final Result [facility] [address] [place] [phone] * T-SPOT??.TB (09/06/2024 12:36 PM EDT) [facility] T Spot TB Negative Negative [facility] Comment:A negative test resu lt does not exclude the possibilityof exposure to or infection with Mycobacteriumtuberculosis (M. tuberculosis). Patients with recentexposure to TB infected individuals exhibiting anegative T-SPOT.TB result should be considered forretesting within 6 weeks or if other relevant clinicalsymptoms indicate. Results from T-SPOT.TB testing mustbe used in conjunction with each individual'sepidemiological history, current medical status,and results of other diagnostic evaluations.The T-SPOT.TB test is qualitative and results arereported as positive, borderline, or negative, giventhat the test controls perform as expected. In linewith the Centers for Disease Control and Prevention's2010 recommendation to report quantitative measurementsalongside the qualitative result, the laboratoryprovides spot counts for informational purposes only.The T-SPOT.TB test should not be interpreted as aquantitative test. TS PANEL A 1 [facility] TS PANEL B 0 [facility] Negative Control Passed [facility] Positive Control Passed [facility] Comment:For additional infor aquilino, please refer [email or web address]/faq/EJG317(This link is being provided for informational/educational purposes only.)THIS TEST WAS PERFORMED AT:[employer] [id number] [place] [id number] ZHU MD,PHD 09/06/2024 12:3 6 PM EDT 09/06/2024 12:36 PM EDT us Generic External Data Provider LAB BLOOD ORDERAB LES Final Result [facility] [address] [place] [phone] * Hepatitis Panel, General (09/06/2024 12:36 PM EDT) Hepatitis A IgM Nonreactive Nonreactive [facility] Comment:IgM antibodies to MARTINEZ V not detected; does not exclude earlyacute or recovered HAV infection. ~Hepatitis B Surface Antibody NONREACTIVE Nonreactive [facility] Comment:Nonreactive: < 8.00 mIU/mL Hepatitis B Core Antibody Nonreactive Nonreactive [facility] Hepatitis C Antibody Nonreactive Nonreactive [facility] Comment:Antibodies to HCV no t detected; does not exclude early acuteHCV infection. Hepatitis B Surface Ag Negative Negative [facility] 09/06/2024 12:3 6 PM EDT 09/06/2024 12:36 PM EDT us Generic External Data Provider LAB BLOOD ORDERAB LES Final Result [facility] [address] [place] [phone] * (ABNORMAL) CBC auto differential (09/06/2024 12:36 PM EDT) White Blood Count 8.9 4.8 - 10.8 X10*3/uL [facility] Red Blood Count 4.84 4.20 - 5.50 X10*6/uL [facility] Hemoglobin 14.0 12.0 - 16.0 g/dl [facility] Hematocrit 40.8 37.0 - 47.0 % [facility] Mean Corpuscular Volume 84.3 80.0 - 98.0 fL [facility] Mean Corpuscular Hemoglobin 28.9 27.0 - 33.0 pg [facility] Mean Corpuscular HGB Conc 34.3 31.0 - 35.0 g/dl [facility] Red Cell Distribution Width 12.8 11.0 - 16.0 % [facility] Platelet Count 212 160 - 400 X10*3/uL [facility] Mean Platelet Volume 10.7 9.4 - 12.3 fL [facility] Neutrophils Percent Auto 55.7 45 - 73 % [facility] Imm Gran Pct Auto 0.6(H) 0.0 - 0.4 % [facility] Lymphocytes Percent Auto 34.6 20 - 40 % [facility] Monocytes Percent Auto 6.1 2 - 11 % [facility] Eosinophils Percent Auto 2.2 0 - 4 % [facility] Basophils Percent Auto 0.8 0 - 2 % [facility] NRBC Pct Auto 0.0 0.0 - 0.2 /100WBC [facility] Neutrophils Absolute Auto 5.0 2.0 - 8.3 x10*3/uL [facility] Imm Gran Abs Auto 0.05(H) 0.00 - 0.03 X10*3/uL [facility] Lymphocytes Absolute Auto 3.1 1.2 - 4.9 X10*3/uL [facility] Monocytes Absolute Auto 0.5 0.1 - 1.2 X10*3/uL [facility] Eosinophils Absolute Auto 0.2 0.0 - 0.4 X10*3/uL [facility] Basophils Absolute Auto 0.1 0.0 - 0.2 X10*3/uL [facility] NRBC Abs Auto 0.000 0.0 - 0.012 X10*3/uL [facility] 09/06/2024 12:3 6 PM EDT 09/06/2024 12:36 PM EDT us Generic External Data Provider LAB BLOOD ORDERAB LES Final Result Performing Organization Address City/[facility]/ZIP Co de Phone Number [facility] [address] [place] [phone] * C-reactive Protein (09/06/2024 12:36 PM EDT) C Reactive Protein 0.50 < or = 0.50 mg/dL [facility] 09/06/2024 12:3 6 PM EDT 09/06/2024 12:36 PM EDT Generic External Data Provider LAB BLOOD ORDERAB LES Final Result Performing Organization Address [facility] Co de Phone Number [facility] [address] [place] [phone] * (ABNORMAL) Comprehensive Metabolic Panel (09/06/2024 12:36 PM EDT) Sodium 139 135 - 145 mmol/L [facility] Potassium 4.3 3.3 - 5.1 mmol/L [facility] Comment:Slight Hemolysis.Int erpret result with caution. Chloride 107 96 - 108 mmol/L [facility] Carbon Dioxide 22 22 - 29 mmol/L [facility] Anion Gap 14 12 - 20 [facility] Urea Nitrogen (BUN) 12 9 - 16 mg/dL [facility] Creatinine, Serum 0.79 0.5 - 1.4 mg/dL [facility] Estimated Glomerular Filt Rate >60 [facility] Comment:Chronic Kidney Disea se: Estimated GFR < 60 mL/min/[id number] Kidney Disease: Estimated GFR < 15 mL/min/1.73m2 Glucose 201(H) 60 - 115 mg/dL [facility] Calcium 9.4 8.4 - 10.2 mg/dL [facility] Bilirubin, Total 0.6 0.0 - 1.0 mg/dL [facility] Aspartate Amino Transferase 24 5 - 31 U/L [facility] Comment:Slight Hemolysis.Int erpret result with caution. Alanine Aminotransferase 15 0 - 31 U/L [facility] Total Protein 7.6 6.5 - 8.0 g/dL [facility] Albumin Level 4.2 3.5 - 5.0 g/dL [facility] Alkaline Phosphatase 100 39 - 117 U/L [facility] 09/06/2024 12:3 6 PM EDT 09/06/2024 12:36 PM EDT us Generic External Data Provider LAB BLOOD ORDERAB LES Final Result [facility] [address] [place] [phone] * CT Abdomen Pelvis w/ Contrast (08/26/2024 11:13 PM EDT) Anatomical Region Laterality Modality Body, Pelvis, Abdomen Computed T omography 08/26/2024 11:1 3 PM EDT Narrative 08/26/2024 11:15 PM EDT [address] [place] [address] CT Scan Report Signed Patient: Lois Dalton MR#: [id number] 1 : 1955 Acct:[id number] Age/Sex: 69 / F ADM Date: 08/26/24 Loc: HO.ED Attending Dr: Ordering Physician: Hussain Wolf MD Date of Service: 08/26/24 Procedure(s): CT abdomen pelvis w IV con Accession Number(s): [id number] cc: Hussain Wolf MD; [place] CIFUENTES NP Report Number: [id number]: Total DLP = 0.00 mGy-cm CLINICAL HISTORY: lower abd pain CT abdomen and pelvis with contrast Comparison: None available Findings: Mild bibasilar atelectasis and scarring. Mild pleural thickening in the adipose changes particularly in the left pleural space. Mild fat deposition of the liver. The gallbladder is surgically absent. The adrenal glands are normal. The spleen is nonenlarged. Mild-moderate volume loss of the imaged pancreas particularly head and uncinate process. IVC filter is noted. No suspicious features of cystic lesions in the kidneys by CT. No hydronephrosis accounting for parapelvic cysts. Small mesenteric and periaortic lymph nodes likely reactive. No small bowel obstruction. Wall thickening of the large intestine is nonspecific and may reflect combination of the colitis and diverticulitis including involving lower portion of the descending colon and sigmoid colon with mild adjacent fluid. Imaged appendix within normal limits (imaged 511 of series 3). No free intraperitoneal air or drainable abscess by CT. Uterus is absent. No adnexal soft tissue mass. Minimal wall thickening of the mildly distended urinary bladder. Mild pelvis deformities appear old/chronic. Degenerative changes of the pubic symphysis, hips, SI joints, and spine. Facet arthropathy is multifocal most pronounced in the lower lumbar spine. IMPRESSION: 1. Wall thickening of the lower portion of the descending colon sigmoid colon concerning for mild colitis and diverticulitis. No small bowel obstruction. 2. IVC filters in place. This document has been electronically signed by: Archie Dunn MD on 08/26/2024 23:13:41 Dictated By: Archie Dunn MD Signed By: <Electronically signed by Archie Dunn MD in OV> 08/26/24 5724 DD/ 12 TD/TT: 08/26/242312 [employer]: Procedure Note Donotuseinterpreter, Image - 08/26/[address] [address] [address] Scan Report Signed Patient: Arnav Dalton#: [id number] 1 : 5Acct:[id number] Age/Sex: 69 / FADM Date: 08/26/24 Loc: HO.ED Attending Dr: Ordering Physician: Hussain Wolf MD Date of Service: 08/26/24 Procedure(s): CT abdomen pelvis w IV con Accession Number(s): [id number] cc: Hussain Wolf MD; [place] CIFUENTES NP Report Number: [id number]: Total DLP = 0.00 mGy-cm CLINICAL HISTORY: lower abd pain CT abdomen and pelvis with contrast Comparison: None available Findings: Mild bibasilar atelectasis and scarring. Mild pleural thickening in the adipose changes particularly in the left pleural space. Mild fat deposition of the liver. The gallbladder is surgically absent. The adrenal glands are normal. The spleen is nonenlarged. Mild-moderate volume loss of the imaged pancreas particularly head and uncinate process. IVC filter is noted. No suspicious features of cystic lesions in the kidneys by CT. No hydronephrosis accounting for parapelvic cysts. Small mesenteric and periaortic lymph nodes likely reactive. No small bowel obstruction. Wall thickening of the large intestine is nonspecific and may reflect combination of the colitis and diverticulitis including involving lower portion of the descending colon and sigmoid colon with mild adjacent fluid. Imaged appendix within normal limits (imaged 511 of series 3). No free intraperitoneal air or drainable abscess by CT. Uterus is absent. No adnexal soft tissue mass. Minimal wall thickening of the mildly distended urinary bladder. Mild pelvis deformities appear old/chronic. Degenerative changes of the pubic symphysis, hips, SI joints, and spine. Facet arthropathy is multifocal most pronounced in the lower lumbar spine. IMPRESSION: 1. Wall thickening of the lower portion of the descending colon sigmoid colon concerning for mild colitis and diverticulitis. No small bowel obstruction. 2. IVC filters in place. This document has been electronically signed by: Archie Dunn MD on 08/26/2024 23:13:41 Dictated By: Archie Dunn MD Signed By: <Electronically signed by Archie Dunn MD in OV> 08/26/242313 DD/ 12 TD/TT: 08/26/242312 Supervisor [employer]: [facility] External Provider IMG CT PROCEDURES Edited Result - Final * (ABNORMAL) Urinalysis, Complete, with Reflex to Culture (08/26/2024 10:46 PM EDT) Color Urine Yellow [facility] Appearance Urine Clear [facility] PH 8.0 5.0 - 9.0 [facility] Glucose Urine UA Negative Negative mg/dL [facility] Urine Blood Negative Negative [facility] Specific [place] - Urine 1.020 1.005 - 1.025 [facility] Urine Protein Negative Neg-Trace mg/dL [facility] Urine Ketones Negative Negative mg/dL [facility] Nitrite Urine Negative Negative [facility] Leukocyte Esterase Urine Small (1+)(A) Negative [facility] RBC Urine 0-2 0 - 2 /HPF [facility] Urine WBC 0-5 0 - 5 /HPF [facility] Urine Squamous Epithelial Cell 3-5 0 - 2 /HPF [facility] Urine Bacteria None Seen None Seen [facility] Hyaline Casts, Urine 0-2 0 - 2 /LPF [facility] 08/26/2024 10:4 6 PM EDT 08/26/2024 10:49 PM EDT Narrative [facility] - 08/26/2024 11:34 PM EDT [id number], Clean Catch Generic External Data Provider LAB URINE ORDERAB LES Final Result [facility] [address] [place] [phone] * Culture, Urine, Routine (08/26/2024 10:46 PM EDT) Urine Urine specimen obtained by clean catch procedure / Unknown 08/26/2024 10:46 PM EDT 08/27/2024 12:27 AM EDT Comment:UACC Narrative [facility] - 08/28/2024 12:23 PM EDT Urine Culture Report Result Urine Culture < 10,000 cfu/ml Specimen Source: Urine clean catch us Generic External Data Provider LAB MICROBIOLOGY - GENERAL ORDERABLES Final Result [facility] [address] [place] [phone] * XR Chest 1 View (08/26/2024 10:14 PM EDT) Anatomical Region Laterality Modality Chest Radiographic Bernadine ging 08/26/2024 10:1 4 PM EDT Narrative 08/26/2024 10:15 PM EDT [address] [address] XRay Report Signed Patient: Lois Dalton MR#: [id number] 1 : 1955 Acct:[id number] Age/Sex: 69 / F ADM Date: 08/26/24 Loc: HO.ED Attending Dr: Ordering Physician: Hussain Wolf MD Date of Service: 08/26/24 Procedure(s): XR chest 1V Accession Number(s): [id number] cc: Hussain Wolf MD; [place] CIFUENTES NP CLINICAL HISTORY: chest pressure sob 1 view chest x-ray Comparison: Chest x-ray from 08/11/2024 Findings: No consolidation, pneumothorax, or pleural effusion, with partial obscuration of the lung bases. Mild emphysematous changes suggested. No pneumothorax or pleural effusion. Imaged mediastinum and imaged osseous structures appear unchanged. Surgical clips noted in the imaged abdomen. IMPRESSION: No consolidation. This document has been electronically signed by: Archie Dunn MD on 08/26/2024 22:14:15 Dictated By: Archie Dunn MD Signed By: <Electronically signed by Archie Dunn MD in OV> 08/26/242214 DD/ 13 TD/TT: 08/26/242213 [employer]: Procedure Note Donotuseinterpreter, Image - 08/26/[address] [address] XRay Report Signed Patient: Lois DaltonMR#: [id number] 1 : 5Acct:[id number] Age/Sex: 69 / FADM Date: 08/26/24 Loc: HO.ED Attending Dr: Ordering Physician: Hussain Wolf MD Date of Service: 08/26/24 Procedure(s): XR chest 1V Accession Number(s): [id number] cc: Hussain Wolf MD; [place] CIFUENTES NP CLINICAL HISTORY: chest pressure sob 1 view chest x-ray Comparison: Chest x-ray from 08/11/2024 Findings: No consolidation, pneumothorax, or pleural effusion, with partial obscuration of the lung bases. Mild emphysematous changes suggested. No pneumothorax or pleural effusion. Imaged mediastinum and imaged osseous structures appear unchanged. Surgical clips noted in the imaged abdomen. IMPRESSION: No consolidation. This document has been electronically signed by: Archie Dunn MD on 08/26/2024 22:14:15 Dictated By: Archie Dunn MD Signed By: <Electronically signed by Archie Dunn MD in OV> 08/26/242214 DD/ 13 TD/TT: 08/26/242213 Super[employer]: us [facility] External Provider IMG XR PROCEDURES Edited Result - Final * XR Lumbar Spine 2-3 Views (08/26/2024 10:08 PM EDT) Anatomical Region Laterality Modality Spine, L-spine Radiographic Bernadine ging 08/26/2024 10:0 8 PM EDT Narrative 08/26/2024 10:11 PM EDT [address] [address] XRay Report Signed Patient: Lois Dalton MR#: [id number] 1 : 1955 Acct:[id number] Age/Sex: 69 / F ADM Date: 08/26/24 Loc: HO.ED Attending Dr: Ordering Physician: Hussain Wolf MD Date of Service: 08/26/24 Procedure(s): XR lumbar spine 2-3V Accession Number(s): [id number] cc: Hussain Wolf MD; [place] CIFUENTES NP CLINICAL HISTORY: lower back pain 3 views lumbar spine Comparison: None Findings: Normal heights of 5 lumbar vertebrae. No significant listhesis. Degenerative disc changes are multifocal including thoracolumbar junction and lumbosacral junction. Facet arthropathy is multifocal with bony productive changes particularly in the lower lumbar spine. L4 and L5 pars are partly obscured without definite lysis. Surgical clips noted in the imaged right upper quadrant with inferior vena cava filter opacities present. Small air-fluid levels of the imaged small intestine in the bgshs-vs-gygl with moderate stool burden partially imaged. IMPRESSION: 1. Degenerative changes include facet arthropathy, particularly in the lower lumbar spine. 2. No acute compression fracture 5 lumbar vertebrae. This document has been electronically signed by: Archie Dunn MD on 08/26/2024 22:08:26 Dictated By: Archie Dunn MD Signed By: <Electronically signed by Archie Dunn MD in OV> 08/26/242208 DD/ 07 TD/TT: 08/26/242207 Super[employer]: Procedure Note Donotuseinterpreter, Image - 08/26/[address] [address] XRay Report Signed Patient: Arnav Dalton#: [id number] 1 : 5Acct:[id number] Age/Sex: 69 / FADM Date: 08/26/24 Loc: HO.ED Attending Dr: Ordering Physician: Hussain Wolf MD Date of Service: 08/26/24 Procedure(s): XR lumbar spine 2-3V Accession Number(s): [id number] cc: Hussain Wolf MD; [place] CIFUENTES NP CLINICAL HISTORY: lower back pain 3 views lumbar spine Comparison: None Findings: Normal heights of 5 lumbar vertebrae. No significant listhesis. Degenerative disc changes are multifocal including thoracolumbar junction and lumbosacral junction. Facet arthropathy is multifocal with bony productive changes particularly in the lower lumbar spine. L4 and L5 pars are partly obscured without definite lysis. Surgical clips noted in the imaged right upper quadrant with inferior vena cava filter opacities present. Small air-fluid levels of the imaged small intestine in the onskr-ye-cemn with moderate stool burden partiallyimaged. IMPRESSION: 1. Degenerative changes include facet arthropathy, particularly in the lower lumbar spine. 2. No acute compression fracture 5 lumbar vertebrae. This document has been electronically signed by: Archie Dunn MD on 08/26/2024 22:08:26 Dictated By: Archie Dunn MD Signed By: <Electronically signed by Archie Dunn MD in OV> 08/26/242208 DD/ 07 TD/TT: 08/26/242207 Supervisor [employer]: [facility] External Provider IMG XR PROCEDURES Edited Result - Final * (ABNORMAL) POCT HGB A1C (08/09/2024 1:41 PM EDT) Hemoglobin A1C 7.1(A) 4.0 - 6.0 % QC Media Lot # [id number] Lot# Expiration Date Blood 08/09/2024 1:41 PM EDT [facility] POINT OF CARE TEST ENTER/EDIT OR DERABLES Final Result * BI Mammogram Screening Tomosynthesis Bilateral (07/07/2024 12:21 PM EDT) Anatomical Region Laterality Modality Breast Bilateral Mammography 07/07/2024 12:2 1 PM EDT Narrative 07/15/2024 4:34 PM EDT [facility] [address] [place], [place] [address] Mammography Report Signed Patient: Lois Dalton MR#: [id number] 1 : 1955 Acct:[id number] Age/Sex: 69 / F ADM Date: 07/07/24 Loc: MAMMO Attending Dr: Albania Cifuentes NP Ordering Physician: ALB[place]IA CIFUENTES NP Results: 1Negative Date of Service: 07/07/24 Follow Up: 1 Year From Orig inal Mammogram Procedure(s): MM tomosynthesis screening BI Accession Number(s): [id number] cc: ALB[place]IA CIFUENTES NP EXAMINATION: MM SCREENING DIGITAL BREAST TOMOSYNTHESIS, BILATERAL CLINICAL INFORMATION: Screening. Asymptomatic. COMPARISON: Mammography: Comparison is made with available priors TECHNIQUE: Digital breast mammography with tomosynthesis is performed in both the craniocaudal and mediolateral oblique views along with computer-aided detection (CAD). FINDINGS: The breasts are heterogeneously dense, which may obscure small masses (ACR BI-RADS breast composition Category c). There are no significant masses, abnormal calcifications, or other abnormalities. MM/MM tomosynthesis screening BI IMPRESSION: No mammographic evidence of malignancy. ASSESSMENT: BI-RADS BI-RADS 1 - Negative RECOMMENDATION: Routine annual mammography screening. 1 year F/U This examination should not preclude the clinical evaluation of a suspicious palpable abnormality. This patient's information was entered into a reminder system with a target due date for their next mammogram. Electronically signed by: Stefanie Guillory DO 07/15/2024 04:31 PM EDT Dictated By: Stefanie Guillory DO Signed By: <Electronically signed by Stefanie Guillory DO in OV> 07/15/24 1631 DD/ 1221 TD/TT: 07/07/24 1246 Supervisor [employer]: Procedure Note Donotuseinterpreter, Image - [facility] [address] [place] [address] Mammography Report Signed Patient: Arnav Dalton#: [id number] 1 : 5Acct:[id number] Age/Sex: 69 / FADM Date: 07/07/24 Loc: ARI Attending Dr: Albania Cifuentes NP Ordering Physician: ALB[place] CIFUENTES NPResults: 1Negative Date of Service: 07/07/24Follow Up: 1 Year From Orig ina Mammogram Procedure(s): MM tomosynthesis screening BI Accession Number(s): [id number] cc: ALB[place]IA CIFUENTES NP EXAMINATION: MM SCREENING DIGITAL BREAST TOMOSYNTHESIS, BILATERAL CLINICAL INFORMATION: Screening. Asymptomatic. COMPARISON: Mammography: Comparison is made with available priors TECHNIQUE: Digital breast mammography with tomosynthesis is performed in both the craniocaudal and mediolateral oblique views along with computer-aided detection (CAD). FINDINGS: The breasts are heterogeneously dense, which may obscure small masses (ACR BI-RADS breast composition Category c). There are no significant masses, abnormal calcifications, or other abnormalities. MM/MM tomosynthesis screening BI IMPRESSION: No mammographic evidence of malignancy. ASSESSMENT: BI-RADS BI-RADS 1 - Negative RECOMMENDATION: Routine annual mammography screening. 1 year F/U This examination should not preclude the clinical evaluation of a suspicious palpable abnormality. This patient's information was entered into a reminder system with a target due date for their next mammogram. Electronically signed by: Stefanie Guillory DO 07/15/2024 04:31 PM EDT RP Dictated By: Stefanie Guillory DO Signed By: <Electronically signed by Stefanie Guillory DO in OV> 07/15/24 1631 DD/ 1221 TD/TT: 07/07/24 1246 Super[employer]: us [place] Cifuentes ANP IMG BI PROCEDURES Final Result * (ABNORMAL) Hm Colonoscopy (12/23/2022) Colonoscopy Abnormal( A) Normal [facility] Comment:tubular adenoma 12/23/2022 us Yuni Jeffery MD HEALTH MAINTENANCE Final Result [facility] [address] [place] [phone] * Albumin, Random Urine W/Creatinine (08/15/2022 1:45 PM EDT) Creatinine, Urine 50.16 mg/dL [facility] Microalbumin Urine 12.0 mg/L [facility] Microalbum Creatinine Ratio Ur 23.9 ug/mg cr [facility] Comment:Albumin/Creatinine R atio Reference Ranges: Normal: < 30 ug/mg creatinine Microalbuminuria: 30 - 300 ug/mg creatinineClinical Albuminuria: > 300 ug/mg creatinine 08/15/2022 1:45 PM EDT 08/15/2022 2:19 PM EDT [facility] External Provider LAB URI NE ORDERABLES Final Result Performing Organization Address [facility] de Phone Number [facility] [address] [place] [phone] * Direct LDL (08/15/2022 12:35 PM EDT) LDL Direct 70 <100 mg/dL [facility] Comment:Greatly elevated Tri glycerides values (>1200 mg/dL)interfere with the dLDL assay. As no Triglyceridestesting was ordered, interpret results with caution.Desirable range <100 mg/dL for primary prevention;<70 mg/dL for patients with CHD or diabetic patientswith > or = 2 CHD risk factors.THIS TEST WAS PERFORMED AT:[employer] [place] [phone] JAIME MD 08/15/2022 12:3 5 PM EDT 08/15/2022 12:36 PM EDT [facility] External Provider LAB BLO OD ORDERABLES Final Result Performing Organization Address [facility] Co de Phone Number [facility] [address] [place] [phone] from Last 3 Months or Most Recently Relevant to Health Maintenance Insurance [facility] [employer] (HMO D-SNP) [place] [id number] Care Teams Automotive Sales Manager Relationship Specialty Start Date End Date Albania Cifuentes ANP [address] [place] [address] [place] [address] PCP - General Family Medicine 10/03/19 [facility] 07/31/23
--- OUTSIDE RECORDS SUMMARY | 2024-11-14 13:02 | XMS_ITS | Encounter Summary ---
Author Organization [employer] Address [address] [facility] [address] [place] [address] Care Team Providers Care Civil Draftsman Name Role Phone Breanna Zamudio Primary Care Provider [phone] Reason for Visit * Reason Onset Date Comments Med Refill 11/18/2023 Encounter Details Date Type Department Care Team (Late st Contact Info) Description 11/18/2023 Telephone [facility] MEDICINE [address] [place], [place] [phone] Breanna Zamudio ANP [address] [place], [place] [phone] Med Refill Social History Tobacco Use Types [...] immediate release tablet To be sent to: [facility] - [place], [place] - [address] [place] [address] documented in this encounter Plan of Treatment Upcoming Encounters Date Type Department Care Team ([facility] st Contact Info) Description 01/23/2025 2:00 PM EST Telemedicine [facility] CHC MED & PEDS [address] [place] [address] Sis Coppola, AIDA [address] [place] [address] documented as of this encounter Visit Diagnoses Not on filedocumented in this encounter Care Teams Civil Draftsman Relationship Specialty Start Date End Date Breanna Zamudio ANP [address] [place] [address] PCP - General Family Medicine 10/03/19 [facility] 07/31/23 documented as of this encounter
--- OUTSIDE RECORDS SUMMARY | 2024-11-14 13:02 | XMS_ITS | Encounter Summary ---
Author Organization [employer] Address [address] [place] [address] Care Team Providers Care Technical Advisor Name Role Phone Breanna Zamudio Primary Care Provider [phone] Reason for Visit * Reason Onset Date [...] her to return my call at ext [phone]. Encounter Details Date Type Department Care Team (Late st Contact Info) Description 05/06/2024 Refill [facility] CHC MED & PEDS [address] [place], [place] [phone] Breanna Zamudio ANP [address] [place] [address] Ischemic colitis (CMS/HCC) Social History [...] her to return my call at ext [phone]. * Telephone Encounter - Prisca Ramos [place] [...] Upcoming Encounters Date Type Department Care Team ([facility] st Contact Info) Description 01/23/2025 2:00 PM EST Telemedicine [facility] CHC MED & PEDS [address] [place] [address] Sis Coppola, AIDA [address] [place] [address] documented as of this encounter Visit Diagnoses Diagnosis Ischemic colitis (CMS/HCC) documented in this encounter Care Teams Technical Advisor Relationship Specialty Start Date End Date Breanna Zamudio ANP [address] [place] [address] PCP - General Family Medicine 10/03/19 [facility] 07/31/23 documented as of this encounter
--- OUTSIDE RECORDS SUMMARY | 2024-11-14 13:02 | XMS_ITS | Encounter Summary ---
Author Organization [employer] Address [address] [facility] [address] [place] [address] Care Team Providers Care United [place] Marshal Name Role Phone Breanna Zamudio Primary Care Provider [phone] Reason for Visit * Reason Comments Med Refill Encounter Details Date Type Department Care Team (Late st Contact Info) Description 08/24/2023 Refill [facility] MEDICINE [address] [place], [place] [phone] Breanna Zamudio ANP [address] [place], [place] [phone] Ischemic colitis ([facility]) Social History Tobacco Use Types Packs/Day Years [...] Upcoming Encounters Date Type Department Care Team ([facility] st Contact Info) Description 01/23/2025 2:00 PM EST Telemedicine [facility] MED & PEDS [address] [place] [address] Sis Coppola, RN [address] [place] [address] documented as of this encounter Visit Diagnoses Diagnosis Ischemic colitis (CMS/HCC) documented in this encounter Care Teams United [place] Marshal Relationship Specialty Start Date End Date Breanna Zamudio ANP [address] [place] [address] PCP - General Family Medicine 10/03/19 [facility] 07/31/23 documented as of this encounter
--- OUTSIDE RECORDS SUMMARY | 2024-11-14 13:02 | XMS_ITS | Encounter Summary ---
Author Organization [employer] Address [address] [facility] [address] [place] [address] Care Team Providers Care Dry Cleaning Manager Name Role Phone Breanna Zamudio Primary Care Provider [phone] Reason for Visit * Reason Comments Med Refill Encounter Details Date Type Department Care Team (Late st Contact Info) Description 08/24/2023 Refill [facility] MEDICINE [address] [place], [place] [phone] Breanna Zamudio ANP [address] [place], [place] [phone] Ischemic colitis ([facility]) Social History Tobacco Use Types [...] Encounters Date Type Department Care Team ([facility] st Contact Info) Description 01/23/2025 2:00 PM EST Telemedicine [facility] MED & PEDS [address] [place] [address] Sis Coppola, RN [address] [place] [address] documented as of this encounter Visit Diagnoses Diagnosis Ischemic colitis (CMS/HCC) documented in this encounter Care Teams Dry Cleaning Manager Relationship Specialty Start Date End Date Breanna Zamudio ANP [address] [place] [address] PCP - General Family Medicine 10/03/19 [facility] 07/31/23 documented as of this encounter
--- OUTSIDE RECORDS SUMMARY | 2024-11-14 13:02 | XMS_ITS | Encounter Summary ---
Author Organization [employer] [facility] Address [address] [place] [address] 7t [place] [address] Care Team Providers Care Fire Control Officer Name Role Phone Breanna Zamudio Primary Care Provider [phone] Reason for Visit * Reason Comments Med Refill Encounter Details Date Type Department Care Team (Late Contact Info) Description 12/02/2022 Refill [facility] MEDICINE [address] [place] [address] Breanna Zamudio ANP [address] [place] [address] Pain in unspecified joint Social History Tobacco [...] Info) Description 01/23/2025 2:00 PM EST Telemedicine [facility] CHC MED & PEDS [address] [place], [place] [phone] Sis Coppola, AIDA [address] [place], [place] [phone] documented as of this encounter Visit Diagnoses Diagnosis Pain in unspecified joint documented in this encounter Care Teams Fire Control Officer Relationship Specialty Start Date End Date Breanna Zamudio ANP [address] [place] [address] PCP - General Family Medicine 10/03/19 [facility] 07/31/23 documented as of this encounter
--- OUTSIDE RECORDS SUMMARY | 2024-11-14 13:02 | XMS_ITS | Encounter Summary ---
Author Organization [employer] Address [address] [place] [address] [address] [place] [address] Care Team Providers Care Machining Technician Name Role Phone Breanna Zamudio Primary Care Provider [phone] Encounter Details Date Type Department Care Team (Late st Contact Info) Description 03/19/2022 Orders Only [facility] MED & PEDS [address] [place] [address] Breanna Zamudio ANP [address] [place] [address] Moderate persistent asthma without complication (Primary Dx) [...] Info) Description 01/23/2025 2:00 PM EST Telemedicine [facility] MED & PEDS [address] [place] [address] Sis Coppola, AIDA [address] [place] [address] documented as of this encounter Visit Diagnoses Diagnosis Moderate persistent asthma without complication- Primary documented in this encounter Care Teams Machining Technician Relationship Specialty Start Date End Date Breanna Zamudio ANP [address] [place] [address] PCP - General Family Medicine 10/03/19 [facility] 07/31/23 documented as of this encounter
== END 2024-11-14 12:44 | disposition home or self-care (01) ==
LOC: HO.MRI 12:43
PROVIDERS: PCP Nurse Practitioner Primary Care; Visit Provider Orthopaedic Surgery
DX: Z13.89 Encounter for screening for other disorder (principal)

== ENCOUNTER 2024-11-16 09:19 | Day surgery (SDC) | payer OTHER, SELFPAY ==
--- OUTSIDE RECORDS SUMMARY | 2024-10-25 14:34 | XMS_ITS | Encounter Summary ---
Author Organization [employer] Address [address] [place] [address] Care Team Providers Care Heavy Forger Helper Name Role Phone Breanna Zamudio Primary Care Provider [phone] Reason for Visit * Reason Onset Date Comments Med Refill 03/15/2024 Encounter Details Date Type Department Care Team (Late st Contact Info) Description 03/15/2024 Telephone [facility] MEDICINE [address] [place], [place] [phone] Breanna Zamudio ANP [address] [place], [place] [phone] Med Refill Social History Tobacco Use Types [...] immediate release tablet To be sent to: [facility] pharmacy documented in this encounter Plan of Treatment Upcoming Encounters Date Type Department Care Team (Late st Contact Info) Description 10/31/2024 1:30 PM EDT Telemedicine [facility] MED & PEDS [address] [place] [address] Sis Coppola RN [address] [place] [address] documented as of this encounter Visit Diagnoses Not on filedocumented in this encounter Care Teams Heavy Forger Helper Relationship Specialty Start Date End Date Breanna Zamudio ANP [address] [place] [id number] PCP - General Family Medicine 10/03/19 [facility] 07/31/23 documented as of this encounter
[2024-11-11 14:10] VITALS: BMI 32.9
[2024-11-16 10:57] VITALS: BP 187/81; PULSE 70; RESP 14; TEMP 36.7; O2SAT 98; BMI 32.8
--- NOTE | 2024-11-16 11:00 | MHC.SHP ---
Pre-Procedural Eval Section A - 24 Hr Update-Section A only Date of Service: 11/16/24 Section B - Complete if H&P > 30 days Chief Complaint: Change in bowel habit Relevant Family History (Specify if Yes): No Relevant Social History: None Present Medications: see Short Stay Collaborative assessment Medical History: Significant History (Asthma-COPD overlap syndrome Hypertension Diabetes MGUS (monoclonal gammopathy of unknown significance) Chronic restrictive lung disease Obesity (BMI 30.0-34.9) Cough due to SHANELLE inhibitor Eosinophilia Asthma T2DM (type 2 diabetes mellitus) Erosive gastritis Leg edema, left Hyperparathyroidism Vitami) History of Previous Operations: Relevant previous surgery/procedure and date(s) ( Hx of elbow surgery Hx of hand surgery Hx of arthroscopic knee surgery History of cholecystectomy History of arthroplasty of right knee Hx of hysterectomy Hx of foot surgery History of bilateral carpal tunnel release Hx of bilateral oophorectomy History of esophagogastroduodenoscopy (EGD) Hx of col) Allergies: Allergies Allergy/AdvReac Type Severity Reaction Status Date / Time hazelnut Allergy Mild per Verified 11/16/24 10:47 allergy skin test peanut Allergy Mild per Verified 11/16/24 10:47 allergy skin test Review of Systems Sugical H&P ROS: Negative: Constitution, Cardiovascular, Respiratory, Neurological, Psychiatric, Hem-Onc, Allergic/Immunologic, Gastrointestinal, Genitourinary, Musculoskeletal, Integumentary, Endocrine and Eyes/Ears/Nose/Throat Exam Surgical H&P Exam: Normal: HEENT, Normal: Heart, Normal: Lungs, Normal: Extremities, Normal: Abdomen, Normal: Skin and Normal: Neurological Plan Diagnosis/Plan: Unchanged I have reviewed the history and physical and performed a pertinent physical examination on my patient. No changes have occurred unless specified. Time Spent With Patient Time: Total time managing care of this patient today ____ minutes.
[2024-11-16 11:23] LABS: Glucose, Whole Blood 122 mg/dL (60-115)
--- NOTE | 2024-11-16 11:49 | HO.ANESPROP2 ---
Documented by User: Elisa Yousif NP 11/15/24 12:23 HPI - Anesthesia Eval Consult details Narrative: 69 yr old female for upper endoscopy, colonoscopy Referred to cardiology for chest pain/SOB 02/2024: Had normal myocardial perfusion study; cardiac CTA ordered at 03/2024, but not yet done. Mj Sagastume NP from cardiology stated okay to proceed with above proceed via [place] text 11/15/24. H/O DVT/PE: on anticoagulation (eliquis) COPD/asthma: on Trelegy Type 2 DM: A1C 7.1% 10/2024 Anesthesia Pre-Procedure Meds Is the patient on any of the following meds?: GLP1/DPP4 and SGLT2 Inhib PMFSH Active Problems Active Problems: All Active Problems (Updated 11/11/24 @ 13:59 by Cleo Lewis RN) Lumbar back pain with radiculopathy affecting left lower extremity (Acute) Atypical chest pain (Acute) Palpitations (Acute) Epigastric abdominal pain (Acute) Acute blood loss anemia (Acute) Ischemic colitis (Acute) Status post knee replacement (Acute) Pulmonary embolism (Acute) Pre-op chest exam (Acute) Cough due to SHANELLE inhibitor (Acute) Asthma (Acute) Upper respiratory infection (Acute) COPD exacerbation (Acute) HLD (hyperlipidemia) (Acute) Chronic idiopathic constipation (Acute) Tubular adenoma of colon (Acute) Skin lesion of chest wall (Acute) Skin lesion of back (Acute) Status post total knee replacement, right (Acute) Diabetes mellitus with hyperglycemia (Acute) Chronic restrictive lung disease (Acute) GERD (gastroesophageal reflux disease) (Acute) Eosinophilia (Acute) Erosive gastritis (Acute) Leg edema, left (Acute) Hyperparathyroidism (Acute) Vitamin D deficiency (Acute) Multinodular thyroid (Acute) Thyroid nodule (Acute) Type 2 diabetes mellitus with diabetic polyneuropathy (Acute) Meir's disease (Acute) Other specified acquired hypothyroidism (Acute) Hyperlipidemia LDL goal <100 (Acute) Essential hypertension (Acute) Vitamin B12 deficiency (Acute) Other obesity due to excess calories (Acute) Past Medical History Medical History Pulmonary embolism Asthma-COPD overlap syndrome Hypertension MGUS (monoclonal gammopathy of unknown significance) Chronic restrictive lung disease Obesity (BMI 30.0-34.9) Eosinophilia Erosive gastritis Leg edema, left Hyperparathyroidism Vitamin D deficiency Multinodular thyroid Thyroid nodule Type 2 diabetes mellitus with diabetic polyneuropathy Fibromyalgia Depression with anxiety Cervical cancer Osteoarthritis of left knee Osteopenia GERD (gastroesophageal reflux disease) Meir's disease Other specified acquired hypothyroidism Hyperlipidemia LDL goal <100 Essential hypertension Vitamin B12 deficiency Other obesity due to excess calories BMI 35.0-35.9,adult Family History Family History Father CVD (cardiovascular disease) Diabetes mellitus Stroke Mother Stroke Diabetes mellitus Breast cancer Hyperthyroidism Family history of problems with anesthesia: No Surgical History Surgical History History of total left knee replacement Hx of elbow surgery Hx of hand surgery Hx of arthroscopic knee surgery History of cholecystectomy History of arthroplasty of right knee Hx of hysterectomy Hx of foot surgery History of bilateral carpal tunnel release Hx of bilateral oophorectomy History of esophagogastroduodenoscopy (EGD) Hx of colonoscopy History of Problems with Anesthesia: No Social History Social History Household Members: Spouse Housing: House Housing Other:: 2nd floor-2 family house Are you a primary daycare provider to a significant other at home: No Do you presently have visiting nurse or other home services: No Alcohol intake: never Comment: continues with camera Patient Tobacco Use Status: Never used Tobacco Use of substances other than those prescribed or required for medical reasons: No Have you been hit, kicked, punched, or otherwise hurt by someone within the past year? If so, by whom?: No Are you DNR?: No Advance Directives: No Advance Directives Information Provided: Yes Advance Directives Date on File: 03/06/23 Patient : No Poor oral hygiene: No service: No 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al status: disabled 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 Allergies Allergy/AdvReac Type Severity Reaction Status Date / Time hazelnut Allergy Mild per Verified 11/16/24 10:47 allergy skin test peanut Allergy Mild per Verified 11/16/24 10:47 allergy skin test Home Medications ?Medication ?Instructions ?Recorded ?Confirmed ?Last Taken ?Type blood sugar diagnostic #10 ea 03/19/20 11/16/24 02/26/23 History metoprolol succinate 200 mg 200 mg PO DAILY 07/09/20 11/16/24 05/26/23 01:00 History tablet,extended release 24 hr albuterol sulfate 0.63 mg/3 mL 1 amp inhalation Q4H PRN wheezing 03/24/22 11/16/24 Unknown History solution for nebulization multivitamin-ferrous 1 tab PO DAILY 03/24/22 11/16/24 05/25/23 History fumarate-folic acid 18 mg-400 mcg tablet (Certavite-Antioxidant) cyanocobalamin (vitamin B-12) 1,000 mcg PO DAILY 02/28/23 11/16/24 05/25/23 History 1,000 mcg sublingual tablet empagliflozin 25 mg tablet 25 mg PO QAM 02/28/23 11/16/24 11/12/24 History (Jardiance) fluticasone propionate 50 1 spray intranasal DAILY 05/25/23 11/16/24 05/25/23 History mcg/actuation nasal spray,suspension psyllium husk 3 gram/5.4 gram oral 3 g PO DAILY 05/27/23 11/16/24 Unknown History powder (Reguloid (psyllium husk)) acetaminophen 650 mg 650 mg PO TID 11/30/23 11/16/24 Unknown History tablet,extended release clonidine HCl 0.1 mg tablet 0.1 mg PO BID 11/30/23 11/16/24 Unknown History lisinopril 40 mg tablet 40 mg PO DAILY 11/30/23 11/16/24 Unknown History oxycodone 10 mg tablet 10 mg PO QID PRN Pain 11/30/23 11/16/24 Unknown History trazodone 150 mg tablet 150 mg PO BEDTIME 11/30/23 11/16/24 Unknown History celecoxib 200 mg capsule 200 mg PO DAILY 02/15/24 11/16/24 Unknown History insulin glargine 100 unit/mL (3 40 unit subcut BEDTIME 06/28/24 11/16/24 Unknown History mL) subcutaneous pen (Lantus Solostar U-100 Insulin) olmesartan 40 mg tablet 40 mg PO DAILY 09/05/24 11/16/24 Unknown History venlafaxine 75 mg capsule,extended 75 mg PO DAILY 09/05/24 11/16/24 Unknown History release 24 hr Exam Height,Weight and Vital Signs: Height 5 ft 5 in Weight 89.811 kg Pertinent Lab Results Pertinent Lab Results: Laboratory Tests 09/06/24 12:36 WBC 8.9 RBC 4.84 Hgb 14.0 Hct 40.8 Plt Count 212 Sodium 139 Potassium 4.3 D BUN 12 Creatinine 0.79 Narrative Narrative: EKG 08/2024 Vent. Rate : 88 BPM Atrial Rate : 88 BPM P-R Int : 136 ms QRS Dur : 100 ms QT Int : 386 ms P-R-T Axes : 48 9 59 degrees QTcB Int : 467 ms Normal sinus rhythm Normal ECG When compared with ECG of 11-Aug-2024 02:02, No significant change was found Myocardial perfusion study 02/2024 Impression: 1. Myocardial perfusion imaging study shows normal myocardial perfusion 2. Gated LVEF is 67% 3. Transient ischemic dilatation not present Nondiagnostic changes on EKG. Assessment and Plan Final Anesthetic Review Family History of Problems with Anesthesia: No History of Problems with Anesthesia: No Documented by User: Melina Castellanos DO 11/16/24 11:50 HPI - Anesthesia Eval Anesthesia Pre-Procedure Meds Is the patient on any of the following meds?: GLP1/DPP4 and SGLT2 Inhib PMFSH Past Medical History Medical History Pulmonary embolism Asthma-COPD overlap syndrome Hypertension MGUS (monoclonal gammopathy of unknown significance) Chronic restrictive lung disease Obesity (BMI 30.0-34.9) Eosinophilia Erosive gastritis Leg edema, left Hyperparathyroidism Vitamin D deficiency Multinodular thyroid Thyroid nodule Type 2 diabetes mellitus with diabetic polyneuropathy Fibromyalgia Depression with anxiety Cervical cancer Osteoarthritis of left knee Osteopenia GERD (gastroesophageal reflux disease) Meir's disease Other specified acquired hypothyroidism Hyperlipidemia LDL goal <100 Essential hypertension Vitamin B12 deficiency Other obesity due to excess calories BMI 35.0-35.9,adult Family History Family History Father CVD (cardiovascular disease) Diabetes mellitus Stroke Mother Stroke Diabetes mellitus Breast cancer Hyperthyroidism Family history of problems with anesthesia: No Surgical History Surgical History History of total left knee replacement Hx of elbow surgery Hx of hand surgery Hx of arthroscopic knee surgery History of cholecystectomy History of arthroplasty of right knee Hx of hysterectomy Hx of foot surgery History of bilateral carpal tunnel release Hx of bilateral oophorectomy History of esophagogastroduodenoscopy (EGD) Hx of colonoscopy History of Problems with Anesthesia: No Social History Social History Household Members: Spouse Housing: House Housing Other:: 2nd floor-2 family house Are you a primary daycare provider to a significant other at home: No Do you presently have visiting nurse or other home services: No Alcohol intake: never Comment: continues with camera Patient Tobacco Use Status: Never used Tobacco Use of substances other than those prescribed or required for medical reasons: No Have you been hit, kicked, punched, or otherwise hurt by someone within the past year? If so, by whom?: No Are you DNR?: No Advance Directives: No Advance Directives Information Provided: Yes Advance Directives Date on File: 03/06/23 Patient : No Poor oral hygiene: No service: No 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al status: disabled 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 Allergies Allergy/AdvReac Type Severity Reaction Status Date / Time hazelnut Allergy Mild per Verified 11/16/24 10:47 allergy skin test peanut Allergy Mild per Verified 11/16/24 10:47 allergy skin test Home Medications ?Medication ?Instructions ?Recorded ?Confirmed ?Last Taken ?Type blood sugar diagnostic #10 ea 03/19/20 11/16/24 02/26/23 History metoprolol succinate 200 mg 200 mg PO DAILY 07/09/20 11/16/24 05/26/23 01:00 History tablet,extended release 24 hr albuterol sulfate 0.63 mg/3 mL 1 amp inhalation Q4H PRN wheezing 03/24/22 11/16/24 Unknown History solution for nebulization multivitamin-ferrous 1 tab PO DAILY 03/24/22 11/16/24 05/25/23 History fumarate-folic acid 18 mg-400 mcg tablet (Certavite-Antioxidant) cyanocobalamin (vitamin B-12) 1,000 mcg PO DAILY 02/28/23 11/16/24 05/25/23 History 1,000 mcg sublingual tablet empagliflozin 25 mg tablet 25 mg PO QAM 02/28/23 11/16/24 11/12/24 History (Jardiance) fluticasone propionate 50 1 spray intranasal DAILY 05/25/23 11/16/24 05/25/23 History mcg/actuation nasal spray,suspension psyllium husk 3 gram/5.4 gram oral 3 g PO DAILY 05/27/23 11/16/24 Unknown History powder (Reguloid (psyllium husk)) acetaminophen 650 mg 650 mg PO TID 11/30/23 11/16/24 Unknown History tablet,extended release clonidine HCl 0.1 mg tablet 0.1 mg PO BID 11/30/23 11/16/24 Unknown History lisinopril 40 mg tablet 40 mg PO DAILY 11/30/23 11/16/24 Unknown History oxycodone 10 mg tablet 10 mg PO QID PRN Pain 11/30/23 11/16/24 Unknown History trazodone 150 mg tablet 150 mg PO BEDTIME 11/30/23 11/16/24 Unknown History celecoxib 200 mg capsule 200 mg PO DAILY 02/15/24 11/16/24 Unknown History insulin glargine 100 unit/mL (3 40 unit subcut BEDTIME 06/28/24 11/16/24 Unknown History mL) subcutaneous pen (Lantus Solostar U-100 Insulin) olmesartan 40 mg tablet 40 mg PO DAILY 09/05/24 11/16/24 Unknown History venlafaxine 75 mg capsule,extended 75 mg PO DAILY 09/05/24 11/16/24 Unknown History release 24 hr Exam Exam Date and Time: 11/16/24 1150 Height,Weight and Vital Signs: Height 5 ft 5 in Weight 89.811 kg Vital Signs Temperature 98.1 F 11/16/24 10:57 Pulse Rate 70 11/16/24 10:57 Respiratory Rate 14 11/16/24 10:57 Blood Pressure 187/81 H 11/16/24 10:57 Pulse Oximetry 98 11/16/24 10:57 Oxygen Delivery Method Room Air 11/16/24 10:57 Temperature 98.1 F 11/16/24 10:57 Pulse Rate 70 11/16/24 10:57 Respiratory Rate 14 11/16/24 10:57 Blood Pressure 187/81 H 11/16/24 10:57 Pulse Oximetry 98 11/16/24 10:57 Oxygen Delivery Method Room Air 11/16/24 10:57 Airway Mallampati Class: III TM Dist: <=3cm Neck ROM: Full Loose/Missing/Broken Teeth: No (patient denies any loose or broken teeth) Heart: S1S2 Lungs: CTAB Assessment and Plan Assessment Anesthesia Assessment: Anesthesia Plan Discussed and Chart Reviewed Final Anesthetic Review Family History of Problems with Anesthesia: No History of Problems with Anesthesia: No NPO: Yes ASA Class: III Final Preanesthetic Review: No Changes in Pt Med Stat, Meds/Allgs Chart Reviewed, Consent Obtained/Reviewed and Anes Risks/Benef Reviewed Patient Risk: Low Procedure Risk: Low Anesthetic Plan Anesthetic Plan: MAC: and Agree w/ Assess. and Plan Disposition: Standard PACU
--- NOTE | 2024-11-16 12:54 | P.OPN-COLO_ITS ---
Colonoscopy Operative Note Operative Note Date of Service: 11/16/24 Narrative: Operative Information Procedure Description: EGD, Colonoscopy Indication: LLQ and LUQ pain Anesthesia: MAC FLEXIBLE TRANSORAL UPPER GASTROINTESTINAL ENDOSCOPY AND COLONOSCOPY PROCEDURE NOTE UPPER ENDOSCOPY Consent: Indications for the procedure and potential complications of bleeding, perforation, reaction to medications and missed diagnosis were discussed with the patient and informed consent was obtained. Instrument: Olympus GIF H 190 J mid size upper endoscope Monitoring: Vital signs and clinical assessment, continuous EKG monitoring, Pulse oximetry, Carbon Dioxide monitoring and blood pressure monitoring were done throughout the procedure. Procedure: The patient was placed in the left lateral decubitis position and pre-procedure medications were administered and a bite block was placed. The endoscope was inserted into the mouth and advanced under direct vision to the third part of duodenum. A careful inspection was made as the upper endoscope was withdrawn including a retroflexed examination of the proximal stomach; Findings and interventions are described below. Findings: Larynx:normal Esophagus: GE junction at 37 cm, diaphragm hiatus at 40 cm, consistent with 3 cm hiatal hernia, Stomach: Patchy erythema. Biopsies were obtained. Grade 2 flap valve on retroflexed examination of the cardia. 10 mm sessile polyp in distal body of stomach removed with cold snare Duodenum: Normal bulb and descending duodenum, bx taken Intervention: Biopsies as noted above, cold snare COLONOSCOPY Instrument: Olympus variable stiffness pediatric scope 190L Colonoscopy Monitoring: Vital signs and clinical assessment, continuous EKG monitoring, Pulse oximetry, Carbon Dioxide monitoring and blood pressure monitoring were done throughout the procedure. Colon withdrawal time was 14 minutes. Procedure: The patient was placed in the left lateral decubitis position and pre-procedure medications were administered. After a digital rectal examination of the ano-rectum, the video colonoscope was inserted into the rectum and advanced through the colon to the cecum/TI. The colonoscope was slowly withdrawn in a retrograde panoramic fashion and the colon mucosa was carefully examined including a retroflexed view of the rectum. Findings and interventions are described below. Procedure Difficulty: difficult due to tortuous colon and tight angles in sigmoid Findings: Terminal Ileum-not intubated, due to looping random colo bx taken Cecum:normal Ascending Colon: normal Transverse Colon -normal Descending Colon:normal Sigmoid Colon: severe diverticulosis Rectum: Retroflexion not done due to edematous and tight rectal cavity, bx taken due to patchy erythema and edema. Anorectum - normal Colon preparation: [place] Bowel Preparation Scale Right colon; 2 Transverse colon: 2 Left colon; 1-2 (0 = Unprepared colon segment with mucosa not seen due to solid stool that cannot be cleared. 1 = Portion of mucosa of the colon segment seen, but other areas of the colon segment not well seen due to staining, residual stool and/or opaque liquid. 2 = Minor amount of residual staining, small fragments of stool and/or opaque liquid, but mucosa of colon segment seen well. 3 = Entire mucosa of colon segment seen well with no residual staining, small fragments of stool or opaque liquid) Impression and Post Procedure Diagnosis: Endoscopy Findings: hiatal hernia gastric polyp gastritis Colonoscopy Findings: non specific colitis diverticulosis Plan: Await Pathology results Repeat Colonoscopy in 5 years due to some areas of fair prep or earlier if clinically indicated High fiber diet leaflet avoid straining at stool, epsom salts and sitz bath, anusol supps or cream colowrap was used can use next time as well Above findings were reviewed with the patient and relevant handouts were provided if indicated.
[2024-11-16 12:58] VITALS: BP 139/70; PULSE 88; RESP 16; TEMP 36.4; O2SAT 98
[2024-11-16 13:00] VITALS: BP 145/73; PULSE 77; RESP 16; O2SAT 98
[2024-11-16 13:15] VITALS: BP 157/92; PULSE 68; RESP 16; TEMP 36.1; O2SAT 98
== END 2024-11-16 14:10 | disposition home or self-care (01) ==
PROVIDERS: PCP Nurse Practitioner Primary Care; Visit Provider Internal Medicine Gastroenterology
PROC: (CPT 45380; principal; 2024-11-16 12:10)
DX: R19.4 Change in bowel habit (principal); K52.9 Noninfective gastroenteritis and colitis, unspecified; K56.2 Volvulus; K57.30 Diverticulosis of large intestine without perforation or abscess without bleeding; K21.9 Gastro-esophageal reflux disease without esophagitis; D3A.8 Other benign neuroendocrine tumors; K31.7 Polyp of stomach and duodenum; K22.89 Other specified disease of esophagus; K29.60 Other gastritis without bleeding; K44.9 Diaphragmatic hernia without obstruction or gangrene; E11.9 Type 2 diabetes mellitus without complications; I10 Essential (primary) hypertension; E78.5 Hyperlipidemia, unspecified; E03.9 Hypothyroidism, unspecified; J44.9 Chronic obstructive pulmonary disease, unspecified; E55.9 Vitamin D deficiency, unspecified; Z79.4 Long term (current) use of insulin; R10.12 Left upper quadrant pain
CPT/HCPCS: 45380; 43251; 43239; 82947; 88305; 88341; 88342; 88360; J2003; J2704

== ENCOUNTER → 2024-11-16 09:19 | Outpatient (BNV) | payer OTHER, SELFPAY | PROVIDERS: PCP Nurse Practitioner Primary Care; Visit Provider Internal Medicine Gastroenterology | DX: R10.12 Left upper quadrant pain (principal); K31.7 Polyp of stomach and duodenum; K22.89 Other specified disease of esophagus; K29.70 Gastritis, unspecified, without bleeding; R10.32 Left lower quadrant pain; K57.90 Diverticulosis of intestine, part unspecified, without perforation or abscess without bleeding; K52.9 Noninfective gastroenteritis and colitis, unspecified | CPT/HCPCS: 43239; 43251; 45380 ==

== ENCOUNTER 2024-11-24 08:29 | Day surgery (SDC) | payer OTHER, SELFPAY ==
--- OUTSIDE RECORDS SUMMARY | 2024-11-22 15:12 | XMS_ITS | Encounter Summary ---
Author Organization [employer] Address [address] [place] [address] Care Team Providers Care Courtesy Booth Cashier Name Role Phone Breanna Zamudio Primary Care Provider Reason for Visit * Reason Onset Date Comments Med Refill 03/15/2024 Encounter Details Date Type Department Care Team (Late st Contact Info) Description 03/15/2024 Telephone [facility] MEDICINE [address] [place], [place] [phone] Breanna Zamudio ANP [address] [place], [place] [phone] Med Refill Social History Tobacco Use Types [...] immediate release tablet To be sent to: [facility] documented in this encounter Plan of Treatment Upcoming Encounters Date Type Department Care Team (Late st Contact Info) Description 01/23/2025 2:00 PM EST Telemedicine [facility] [address] [place] [address] Sis Coppola RN [address] [place] [address] documented as of this encounter Visit Diagnoses Not on filedocumented in this encounter Care Teams Courtesy Booth Cashier Relationship Specialty Start Date End Date Breanna Zamudio ANP [address] [place] [id number] PCP - General Family Medicine 10/03/19 [facility] 07/31/23 documented as of this encounter
--- OUTSIDE RECORDS SUMMARY | 2024-11-22 15:12 | XMS_ITS | Encounter Summary ---
Author Organization [employer] Address [address] [place] [address] Care Team Providers Care Retail Salesman Name Role Phone Breanna Zamudio Primary Care Provider [phone] Encounter Details Date Type Department Care Team ([facility] st Contact Info) Description 08/31/2023 Telephone [facility] MEDICINE [address] [place], [place] [phone] Breanna Zamudio ANP [address] [place], [place] [phone] Social History Tobacco Use Types Packs/Day Years [...] Upcoming Encounters Date Type Department Care Team ([facility] st Contact Info) Description 01/23/2025 2:00 PM EST Telemedicine [facility] MED & PEDS [address] [place] [address] Sis Coppola, RN [address] [place] [address] documented as of this encounter Visit Diagnoses Not on filedocumented in this encounter Care Teams Retail Salesman Relationship Specialty Start Date End Date Breanna Zamudio ANP [address] [place] [address] PCP - General Family Medicine 10/03/19 [facility] 07/31/23 documented as of this encounter
--- OUTSIDE RECORDS SUMMARY | 2024-11-22 15:12 | XMS_ITS | Encounter Summary ---
Author Organization [employer] Address [address] [place] [address] Care Team Providers Care Crown Blocker Name Role Phone Breanna Zamudio Primary Care Provider [phone] Reason for Visit * Reason Onset Date Comments Appointment Request 06/13/2024 Encounter Details Date Type Department Care Team ([facility] st Contact Info) Description 06/13/2024 Telephone [facility] MEDICINE [address] [place], [place] [phone] Breanna Zamudio ANP [address] [place], [place] [phone] Appointment Request Social History Tobacco Use Types [...] 2:32 PM EDT Tc from pt canceled CAD DESIGNER DRAFTER appt due to being on vacation in [place] and would like to r/s after 07/08/24. documented in this encounter Plan of Treatment Upcoming Encounters Date Type Department Care Team (Late st Contact Info) Description 01/23/2025 2:00 PM EST Telemedicine [facility] MED & PEDS [address] [place] [address] Sis Coppola, RN [address] [place] [address] documented as of this encounter Visit Diagnoses Not on filedocumented in this encounter Care Teams Crown Blocker Relationship Specialty Start Date End Date Breanna Zamudio ANP [address] [place] [phone] PCP - General Family Medicine 10/03/19 [facility] 07/31/23 documented as of this encounter
--- OUTSIDE RECORDS SUMMARY | 2024-11-22 15:12 | XMS_ITS | Encounter Summary ---
Author Organization [employer] Address [address] [place] [address] Care Team Providers Care Turkey Roll Maker Name Role Phone Breanna Zamudio Primary Care Provider [phone] Encounter Details Date Type Department Care Team ([facility] st Contact Info) Description 08/06/2023 Telephone [facility] MEDICINE [address] [place], [place] [phone] Breanna Zamudio ANP [address] [place], [place] [phone] Social History Tobacco Use Types Packs/Day Years [...] 2:00 PM EST Telemedicine [facility] PEDS [address] [place] [address] Sis Coppola, RN [address] [place] [address] documented as of this encounter Visit Diagnoses Not on filedocumented in this encounter Care Teams Turkey Roll Maker Relationship Specialty Start Date End Date Breanna Zamudio ANP [address] [place] [phone] PCP - General Family Medicine 10/03/19 [facility] 07/31/23 documented as of this encounter
--- OUTSIDE RECORDS SUMMARY | 2024-11-22 15:12 | XMS_ITS | Encounter Summary ---
Author Organization [employer] Address [address] [place] [address] Care Team Providers Care Account Classification Clerk Name Role Phone Breanna Zamudio Primary Care Provider [phone] Reason for Visit * Reason Onset Date Comments FYI 08/31/2023 Encounter Details Date Type Department Care Team ([facility] st Contact Info) Description 08/31/2023 Telephone [facility] MEDICINE [address] [place], [place] [phone] Breanna Zamudio ANP [address] [place], [place] [phone] FYI Social History Tobacco Use Types Packs/Day [...] EDT Tc from Caroline (Physical Therapist) with [facility] calling to inform pt is getting discharge as of today from PT services. Any questions [phone] documented in this encounter Plan of Treatment Upcoming Encounters Date Type Department Care Team (Late st Contact Info) Description 01/23/2025 2:00 PM EST Telemedicine [facility] MED & PEDS [address] [place] [address] Sis Coppola, RN [address] [place] [address] documented as of this encounter Visit Diagnoses Not on filedocumented in this encounter Care Teams Account Classification Clerk Relationship Specialty Start Date End Date Breanna Zamudio ANP [address] [place] [address] PCP - General Family Medicine 10/03/19 [facility], [place] 07/31/23 documented as of this encounter
--- OUTSIDE RECORDS SUMMARY | 2024-11-22 15:12 | XMS_ITS | Encounter Summary ---
Author Organization [employer] Address [address] [place] [address] Care Team Providers Care Credit Reporter Name Role Phone Breanna Zamudio Primary Care Provider Reason for Visit * Reason Onset Date Comments Appointment Request 10/31/2024 Encounter Details Date Type Department Care Team ([facility] st Contact Info) Description 10/31/2024 Telephone [facility] MEDICINE [address] [place], [place] [phone] Breanna Zamudio ANP [address] [place], [place] [phone] Appointment Request Social History Tobacco Use Types [...] miss appt Temporary phone, contact pt at [phone] documented in this encounter Plan of Treatment Upcoming Encounters Date Type Department Care Team ([facility] st Contact Info) Description 01/23/2025 2:00 PM EST Telemedicine [facility] MED & PEDS [address] [place] [address] Sis Coppola, AIDA [address] [place] [address] documented as of this encounter Visit Diagnoses Not on filedocumented in this encounter Care Teams Credit Reporter Relationship Specialty Start Date End Date Breanna Zamudio ANP [address] [place] [id number] PCP - General Family Medicine 10/03/19 [facility], [place] 07/31/23 documented as of this encounter
--- OUTSIDE RECORDS SUMMARY | 2024-11-22 15:12 | XMS_ITS | Encounter Summary ---
Author Organization [employer] Address [address] [place] [address] Care Team Providers Care Stained Glass Painter Name Role Phone Breanna Zamudio Primary Care Provider [phone] Reason for Visit * Reason Onset Date [...] her to return my call at ext [phone]. Encounter Details Date Type Department Care Team (Late st Contact Info) Description 05/06/2024 Refill [facility] MED & PEDS [address] [place], [place] [phone] Brenana Zamudio ANP [address] [place] [address] Ischemic colitis (CMS/HCC) Social History [...] her to return my call at ext [phone]. * Telephone Encounter - Prisca Ramos [place] [...] Upcoming Encounters Date Type Department Care Team ([facility] st Contact Info) Description 01/23/2025 2:00 PM EST Telemedicine [facility] MED & PEDS [address] [place] [address] Sis Coppola, AIDA [address] [place] [address] documented as of this encounter Visit Diagnoses Diagnosis Ischemic colitis (CMS/HCC) documented in this encounter Care Teams Stained Glass Painter Relationship Specialty Start Date End Date Breanna Zamudio ANP [address] [place] [address] PCP - General Family Medicine 10/03/19 [facility], [place] 07/31/23 documented as of this encounter
--- OUTSIDE RECORDS SUMMARY | 2024-11-22 15:13 | XMS_ITS | Encounter Summary ---
Author Organization [employer] Address [address] [place] [address] Care Team Providers Care Workday Financials Consultant Name Role Phone Breanna Zamudio Primary Care Provider [phone] Reason for Visit * Reason Comments Med Refill Encounter Details Date Type Department Care Team (Late st Contact Info) Description 10/10/2024 Refill [facility] MED & PEDS [address] [place], [place] [phone] Breanna Zamudio ANP [address] [facility] [place], [place] [phone] Long-term current use of opiate analgesic; Osteoarthritis [...] Info) Description 01/23/2025 2:00 PM EST Telemedicine [facility] MED & PEDS [address] [place] [address] Sis Coppola, RN [address] [place] [address] documented as of this encounter Visit Diagnoses Diagnosis Long-term current use of opiate analgesic Encounter for long-term (current) use of other medications Osteoarthritis of multiple joints, unspecified osteoarthritis type Arthralgia, unspecified joint documented in this encounter Care Teams Workday Financials Consultant Relationship Specialty Start Date End Date Breanna Zamudio ANP [address] [place] [address] PCP - General Family Medicine 10/03/19 [facility] 07/31/23 documented as of this encounter
--- OUTSIDE RECORDS SUMMARY | 2024-11-22 15:13 | XMS_ITS | Encounter Summary ---
Author Organization [employer] Address [address] 7[address] [place] [address] Care Team Providers Care Art Psychotherapist Name Role Phone Breanna Zamudio Primary Care Provider [phone] Reason for Visit * Reason Comments Med Refill Encounter Details Date Type Department Care Team ([facility] Contact Info) Description 04/07/2022 Refill [facility] MED & PEDS [address] [place] [address] Breanna Zamudio ANP [address] [place], [place] [phone] Pain in unspecified joint Social History Tobacco [...] Upcoming Encounters Date Type Department Care Team ([facility] Contact Info) Description 01/23/2025 2:00 PM EST Telemedicine [facility] MED & PEDS [address] [place] [address] Sis Coppola, AIDA [address] [place] [address] documented as of this encounter Visit Diagnoses Diagnosis Pain in unspecified joint documented in this encounter Care Teams Art Psychotherapist Relationship Specialty Start Date End Date Breanna Zamudio ANP [address] [place] [address] PCP - General Family Medicine 10/03/19 [facility] 07/31/23 documented as of this encounter
--- OUTSIDE RECORDS SUMMARY | 2024-11-22 15:13 | XMS_ITS | Clinical Summary ---
Author Organization [employer] Address [address] [place] [address] Care Team Providers Care Electric Range Assembler Name Role Phone [place] Cifuentes Primary Care Provider [phone] Allergies No known active allergies Medications Ventolin HFA 108 (90 Base) MCG/ACT inhaler Inhale 1 puff every 4 (four) hours if needed for wheezing. Active Alcohol Swabs (SM Alcohol Prep) 70 % pads USE TWICE DAILY DIRECTED Active Blood Glucose Monitoring Suppl (SwyzzleTouch Verio Flex System) w/Device kit TEST BLOOD [...] 34 UNITS SUBCUTANEOUSLY EVERY EVENING Active Lancets (SwyzzleTouch Delica Plus [id number]) misc TEST BLOOD SUGAR TWICE DAILY Active [...] ONCE A WEEK 024 Active Continuous Glucose Senior Grants Officer (FreeStyle Manuelito 2 Euless) device Use as directed 024 Active Continuous Glucose Sensor (FreeStyle Manuelito 2 Sensor) [facility] Every 2 weeks to monitor BG 024 [...] edema. 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) 11/03/2024 Refill [facility] [address] [place] [phone] [place]ia Cifuentes ANP Long-term current use of opiate analgesic; Osteoarthritis of multiple joints, unspecified osteoarthritis type; Arthralgia, unspecified joint 11/01/2024 Orders Only GENERIC EXTERNAL DATA DEPARTMENT Provider, Generic External Data 10/31/2024 1:30 PM EDT Telemedicine [facility] [address] [place] [address] Sis Coppola RN Long-term current use of opiate analgesic 10/31/2024 Telephone [facility] [address] [place] [phone] Albania Cifuentes ANP Appointment Request 10/31/2024 Travel 10/31/2024 Refill [facility] [address] [place] [phone] [place]ia Cifuentes ANP Hypothyroidism, unspecified type 10/28/2024 Refill [facility] [address] [place] [phone] [place]ia Cifuentes ANP Essential hypertension 10/10/2024 Refill [facility] [address] [place] [address] Albania Cifuentes ANP Long-term current use of opiate analgesic; Osteoarthritis of multiple joints, unspecified osteoarthritis type; Arthralgia, unspecified joint 10/10/2024 Refill [facility] [address] [place] [address] Albania Cifuentes ANP Long-term current use of opiate analgesic; Osteoarthritis of multiple joints, unspecified osteoarthritis type; Arthralgia, unspecified joint 10/01/2024 Refill [facility] [address] [place] [phone] Albania Cifuentes ANP COVID-19 09/07/2024 Telephone [facility] [address] [place] [phone] Bria Redmond RN ER Follow-up 09/06/2024 Orders Only [facility] [address] [place] [address] Albania Cifuentes ANP 09/05/2024 Refill [facility] [address] [place] [address] Sis Coppola RN Long-term current use of opiate analgesic (Primary Dx); Osteoarthritis of multiple joints, unspecified osteoarthritis type; Arthralgia, unspecified joint 09/05/2024 Telephone [facility] [address] [place] [address] Albania Cifuentes ANP Med Refill 08/26/2024 Orders Only GENERIC EXTERNAL DATA DEPARTMENT Provider, Generic External Data from Last 3 Months Immunizations Immunization Administration [...] Upcoming Encounters Date Type Department Care Team ([facility] st Contact Info) Description 01/23/2025 2:00 PM EST Telemedicine [facility] [address] [place] [address] Sis Coppola, RN [address] [place] [address] Health Maintenance Due Date Last Done Comments [...] Additional history exists Lipid Panel 08/16/2023 08/15/2022, 06/0 04/2022, 10/04/2019 Depression Screening 03/19/2024 03/19/2023, 03/19/19 24 SDOH Screening 03/26/2024 03/26/2023 Diabetes: Hemoglobin A1C 11/09/2024 025, 05/12/2024, 11/26/2023, Additional history exists COVID-19 Vaccine ( season) 2024 05/12/2024, 07/07/2022, 03/25/2021, Additional history exists Influenza Vaccine (#1) 2024 , 04/02/2022, 03/10/2018, Additional history exists Diabetes: Foot [...] Procedure Name Priority Date/Time Associated Diagnosis Comments HEMATOXYLIN AND EOSIN STAIN Routine 11/16/2024 12:39 PM EDT GLUCOSE, WHOLE BLOOD Routine 11/16/2024 11:19 AM EDT XR KNEE 3 VIEWS LEFT Routine 11/03/2024 [...] Recently Relevant to Health Maintenance Results * Hematoxylin and Eosin Stain (11/16/2024 12:39 PM EDT) 11/16/2024 12:3 9 PM EDT 11/16/2024 2:10 PM EDT [facility] - 11/21/2024 2:20 PM EDT ----- ------- Name: Lois Dalton Age/Sex: 69/F : 1955 [id number] [id number] Attend Dr: Ludmila Walker MD Re11/16/24 Status: [facility] Location: [facility] Disch: ----- ------- SPEC : [id number] RECD: 11/16/24 STATUS: SHIV STANLEY NUM: [id number] JARED: 11/16/[address] [facility] [address]: Ludmila Walker MD ENTERED: 11/16/24 SP TYPE: Surgical OTHR DR: ALB[place] CIFUENTES NP ORDERED: HE Stain/15, Gross Micro L4/5, Synaptophysin, Chromogranin, IHC/2, Add. immunos, IHC ER/NE/Her2N, H. pylori, Ki-67 THIS IS A CORRECTED REPORT 11/21/24 This is a corrected report. Any previous versions are stored internally and are available if necessary. Diagnosis A. Duodenum, biopsy: Duodenal mucosa with preserved villi and no specific change. B. Stomach, biopsy: Gastric antral and body mucosa with minimal chronic inactive gastritis; negative for H. pylori, intestinal metaplasia and dysplasia. C. Gastric polyp: Well-differentiated neuroendocrine tumor, G2, transected with tumor present at the deep and mucosal tissue edges (see synoptic report). D. Colon, random, biopsy: Colonic mucosa with lymphoid aggregates and no specific change. E. Colon, rectum, biopsy: Colonic mucosa with minor crypt distortion and minor hyperplastic features, otherwise no specific change. Data Synopsis - gastric NET (C) Procedure: Polypectomy Tumor site: Gastric body Tumor size: 3 mm, at least Tumor focality : Unifocal Histologic type and grade: G2, well-differentiated neuroendocrine tumor Mitotic rate ( /2mm2): Less than 1 Ki67 Labeling Index (%): 15% Tumor extent: Tumor is present in lamina propria and muscularis mucosa at least (transected) Lymphatic and/or vascular invasion: Not identified Margins: Deep: Positive Mucosal: Positive Regional lymph nodes: N/A Number examined: 0 Number involved: 0 TNM: pT1 (at least) pN not assigned (AJCC v. 9) CONTINUED ON NEXT PAGE ----- ------- Name: Lois Dalton Age/Sex: 69/F : 1955 Unit#: [id number] Attend Dr: Ludmila Walker MD Re11/16/24 Status: [facility] Location: [facility] Disch: ----- ------- SPEC : [id number] RECD: 11/16/24 STATUS: SHIV STANLEY NUM: [id number] JARED: 11/16/24-[address] [facility] [address]: Ludmila Walker MD ENTERED: 11/16/24 SP TYPE: Surgical OTHR DR: ALB[place] CIFUENTES NP ORDERED: HE Stain/15, Gross Micro L4/5, Synaptophysin, Chromogranin, IHC/2, Add. immunos, IHC ER/NE/Her2N, H. pylori, Ki-67 Note: Typographical error corrected in the data synopsis ( Mucosa:l Negative to Mucosal: Positive ) and in the microscopic description (the word and added). Formatting errors corrected. The diagnosis is unchanged. Clinical History Pre-Op Dx: Change in bowel habits Post-Op Dx: Hiatal hernia, gastritis, gastric polyp, non-specific colitis Microscopic Description Microscopic sections reviewed. Immunostain for H. pylori on B is negative. Part C shows polypoid gastric body tissue with mucosal proliferation of uniform cells in irregular lobules with myxoid stroma and focal cribriform and trabecular features. The polygonal tumor cells have moderate vesicular cytoplasm and round regular nuclei with occasional small nucleoli. Immunostains show the tumor is positive for chromogranin and synaptophysin. Ki- 67 averages 15% positive cells. Controls stain appropriately. Material Received A. Duodenum bx's B. Stomach bx's C. Gastric polyp D. Random colon bx's E. Rectal bx's Gross Description Received in five parts. Part A: Received in formalin labeled duodenum are four bah irregular tissue fragments ranging from 0.1-0.25 cm, submitted in toto in a cassette labeled A. Part B: Received in formalin labeled stomach are two bah-pink irregular tissue fragments measuring 0.2 and 0.3 cm, submitted in toto in a cassette labeled B. Part C: Received in formalin labeled gastric polyp is a 0.6 cm rubbery bah irregular tissue fragment, submitted in toto in a cassette labeled C. Part D: Received in formalin labeled random colon are seven cabrera-bah irregular tissue fragments ranging from 0.1-0.25 cm, submitted in toto in a cassette labeled D. CONTINUED ON NEXT PAGE ----- ------- Name: Lois Dalton Age/Sex: 69/F : 1955 [id number] Unit#: [id number] Attend Dr: Ludmila Walker MD Re11/16/24 Status: [facility] Location: [facility] Disch: ----- ------- SPEC : [id number] RECD: 11/16/24 STATUS: SHIV STANLEY NUM: [id number] JARED: 11/16/[address] [facility] [address]: Ludmila Walker MD ENTERED: 11/16/24 SP TYPE: Surgical OTHR DR: ALB[place] CIFUENTES NP ORDERED: HE Stain/15, Gross Micro L4/5, Synaptophysin, Chromogranin, IHC/2, Add. immunos, IHC ER/NE/Her2N, H. pylori, Ki-67 Gross Description (Continued) Part E: Received in formalin labeled rectal biopsy are five thin and delicate cabrera-bah irregular shards of tissue versus mucus each measuring 0.25 cm, submitted in toto in a cassette labeled E. CEDS Part C was reviewed intradepartmentally. Results of Part C given to Dr. Walker by secure text by Dr. Boykin on 11/18/2024 at 3:48 pm. Special studies ordered and performed: Immunostain for H. pylori on B1; chromogranin, synaptophysin, and Ki-67 on C1. IHC S/NG Disclaimer NOTE: Unless otherwise stated, all tissue is formalin-fixed and paraffin-embedded. Some or all of the immunohistochemical tests reported herein may have been developed and their performance characteristics determined by [facility]. They have not been cleared or approved by the U.S. Food and Drug Administration (FDA). However, the FDA has determined that such clearance or approval is not necessary. This laboratory is certified under the Clinical Laboratory Improvement Amendments of 1988 (CLIA) as qualified to perform high complexity clinical laboratory testing. Copies To: Ludmila Walker MD [facility] [address] [place] [phone] ALBANIA CIFUENTES NP [facility] [address] [place] [address] ----- ------- Signed (signature on file) Blanche Bridgewater 11/21/24 1420 ----- ------- END OF REPORT Generic External Data Provider LAB BLOOD ORDERAB LES Final Result Performing Organization Address City/[facility]/ZIP Co de Phone Number [facility] [address] [place] [phone] * (ABNORMAL) Glucose, Whole Blood (11/16/2024 11:19 AM EDT) Glucose, Whole Blood 122(H) 60 - 115 mg/dL [facility] Comment:METER #: [id number] 11/16/2024 11:1 9 AM EDT 11/16/2024 11:23 AM EDT Generic External Data Provider LAB BLOOD ORDERAB LES Final Result Performing Organization Address [facility]/ZIP Co de Phone Number [facility] [address] [place] [address] [phone] * XR Knee 3 Views Left (11/03/2024 12:39 PM EDT) Anatomical Region Laterality Modality Lower Extremities, Knee Left Radiogra phic Imaging 11/03/2024 12:3 9 PM EDT Narrative 11/03/2024 1:55 PM EDT [facility] [address] [place] [address] XRay Report Signed Patient: Lois Dalton MR#: [id number] 1 : 1955 Acct:[id number] Age/Sex: 69 / F ADM Date: 11/03/24 Loc: HO.HOSX Attending Dr: Vijay Weems MD Ordering Physician: Vijay Weems MD Date of Service: 11/03/24 Procedure(s): XR knee LT 3V Accession Number(s): [id number] cc: Vijay Weems MD; [place] CIFUENTES NP [...] 11/03/24 1352 DD/ 1239 TD/TT: 11/03/24 1345 Machine Mover: Procedure Note Donotuseinterpreter, Image - 11/03/2024 [facility] [address] [place] [address] XRay Report Signed Patient: Lois DaltonMR#: [id number] 1 : 5Acct:[id number] Age/Sex: 69 / FADM Date: 11/03/24 Loc: HO.HOSX Attending Dr: Vijay Weems MD Ordering Physician: Vijay Weems MD Date of Service: 11/03/24 Procedure(s): XR knee LT 3V Accession Number(s): [id number] cc: Vijay Weems MD; [place] CIFUENTES NP [...] 11/03/24 1352 DD/ 1239 TD/TT: 11/03/24 1345 Machine Mover: us [facility] External Provider IMG XR PROCEDURES Final Result * (ABNORMAL) Glucose, Whole Blood (11/01/2024 12:59 PM EDT) Glucose, Whole Blood 208(H) 60 - 115 mg/dL [facility] Comment:METER #: [id number] 0Testing performed in the Endocrinology Department [address] , [address], [place]. 11/01/2024 12:5 9 PM EDT 11/01/2024 1:03 PM EDT Generic External Data Provider LAB BLOOD ORDERAB LES Final Result [facility] [address] [place] [address] [phone] * T-SPOT??.TB (09/06/2024 12:36 PM EDT) T Spot TB Negative Negative [facility] Comment:A negative test resu lt does [...] as aquantitative test. TS PANEL A 1 [facility] TS PANEL B 0 [facility] Negative Control Passed [facility] Positive Control Passed [facility] Comment:For additional infor mation, please refer [email or web address].[email or web address]/faq/[email or web address](This link is being provided for informational/educational purposes only.)THIS TEST WAS PERFORMED AT:[employer] [place] [address]DBEWOQHMERCY ZHU MD,PHD 09/06/2024 12:3 6 PM EDT 09/06/2024 12:36 PM EDT us Generic External Data Provider LAB BLOOD ORDERAB LES Final Result [facility] [address] [place] [address] [phone] * Hepatitis Panel, General (09/06/2024 12:36 PM EDT) Pathologist [facility] Hepatitis A IgM Nonreactive Nonreactive [facility] Comment:IgM antibodies to MARTINEZ V not detected; does not exclude earlyacute or recovered HAV infection. ~Hepatitis B Surface Antibody NONREACTIVE Nonreactive [facility] Comment:Nonreactive: < 8.00 mIU/mL Hepatitis B Core Antibody Nonreactive Nonreactive [facility] Hepatitis C Antibody Nonreactive Nonreactive [facility] Comment:Antibodies to HCV no t detected; does not exclude early acuteHCV infection. Hepatitis B Surface Ag Negative Negative [facility] 09/06/2024 12:3 6 PM EDT 09/06/2024 12:36 PM EDT us Generic External Data Provider LAB BLOOD ORDERAB LES Final Result [facility] [address] [place] [phone] * (ABNORMAL) CBC auto differential (09/06/2024 12:36 PM EDT) Pathologist [facility] White Blood Count 8.9 4.8 - 10.8 X10*3/uL [facility] Red Blood Count 4.84 4.20 - 5.50 X10*6/uL [facility] Hemoglobin 14.0 12.0 - 16.0 g/dl [facility] Hematocrit 40.8 37.0 - 47.0 % [facility] Mean Corpuscular Volume 84.3 80.0 - 98.0 fL [facility] Mean Corpuscular Hemoglobin 28.9 27.0 - 33.0 pg [facility] Mean Corpuscular HGB Conc 34.3 31.0 - 35.0 g/dl [facility] Red Cell Distribution Width 12.8 11.0 - 16.0 % [facility] Platelet Count 212 160 - 400 X10*3/uL [facility] Mean Platelet Volume 10.7 9.4 - 12.3 fL [facility] Neutrophils Percent Auto 55.7 45 - 73 % [facility] Imm Gran Pct Auto 0.6(H) 0.0 - 0.4 % [facility] Lymphocytes Percent Auto 34.6 20 - 40 % [facility] Monocytes Percent Auto 6.1 2 - 11 % [facility] Eosinophils Percent Auto 2.2 0 - 4 % [facility] Basophils Percent Auto 0.8 0 - 2 % [facility] NRBC Pct Auto 0.0 0.0 - 0.2 /100WBC [facility] Neutrophils Absolute Auto 5.0 2.0 - 8.3 x10*3/uL [facility] Imm Gran Abs Auto 0.05(H) 0.00 - 0.03 X10*3/uL [facility] Lymphocytes Absolute Auto 3.1 1.2 - 4.9 X10*3/uL [facility] Monocytes Absolute Auto 0.5 0.1 - 1.2 X10*3/uL [facility] Eosinophils Absolute Auto 0.2 0.0 - 0.4 X10*3/uL [facility] Basophils Absolute Auto 0.1 0.0 - 0.2 X10*3/uL [facility] NRBC Abs Auto 0.000 0.0 - 0.012 X10*3/uL [facility] 09/06/2024 12:3 6 PM EDT 09/06/2024 12:36 PM EDT us Generic External Data Provider LAB BLOOD ORDERAB LES Final Result [facility] [address] [place] [phone] * C-reactive Protein (09/06/2024 12:36 PM EDT) C Reactive Protein 0.50 < or = 0.50 mg/dL [facility] 09/06/2024 12:3 6 PM EDT 09/06/2024 12:36 PM EDT us Generic External Data Provider LAB BLOOD ORDERAB LES Final Result Performing Organization Address City/[facility]/ZIP Co de Phone Number [facility] [address] [place] [phone] * (ABNORMAL) Comprehensive Metabolic Panel (09/06/2024 12:36 PM EDT) Sodium 139 135 - 145 mmol/L [facility] Potassium 4.3 3.3 - 5.1 mmol/L [facility] Comment:Slight Hemolysis.Int erpret result with caution. Chloride 107 96 - 108 mmol/L [facility] Carbon Dioxide 22 22 - 29 mmol/L [facility] Anion Gap 14 12 - 20 [facility] Urea Nitrogen (BUN) 12 9 - 16 mg/dL [facility] Creatinine, Serum 0.79 0.5 - 1.4 mg/dL [facility] Estimated Glomerular Filt Rate >60 [facility] Comment:Chronic Kidney Disea se: Estimated GFR < 60 mL/min/1.37j8Hjhjoc Kidney Disease: Estimated GFR < 15 mL/min/1.73m2 Glucose 201(H) 60 - 115 mg/dL [facility] Calcium 9.4 8.4 - 10.2 mg/dL [facility] Bilirubin, Total 0.6 0.0 - 1.0 mg/dL [facility] Aspartate Amino Transferase 24 5 - 31 U/L [facility] Comment:Slight Hemolysis.Int erpret result with caution. Alanine Aminotransferase 15 0 - 31 U/L [facility] Total Protein 7.6 6.5 - 8.0 g/dL [facility] Albumin Level 4.2 3.5 - 5.0 g/dL [facility] Alkaline Phosphatase 100 39 - 117 U/L [facility] 09/06/2024 12:3 6 PM EDT 09/06/2024 12:36 PM EDT us Generic External Data Provider LAB BLOOD ORDERAB LES Final Result Performing Organization Address City/[facility]/ZIP Co de Phone Number [facility] [address] [place] [phone] * CT Abdomen Pelvis w/ Contrast (08/26/2024 11:13 PM EDT) Anatomical Region Laterality Modality Body, Pelvis, Abdomen Computed T omography 08/26/2024 11:1 3 PM EDT Narrative 08/26/2024 11:15 PM EDT [address] [address] [address] Scan Report Signed Patient: Lois Dalton MR#: [id number] 1 : 1955 Acct:[id number] Age/Sex: 69 / F ADM Date: 08/26/24 Loc: HO.ED Attending Dr: Ordering Physician: Hussain Wolf MD Date of Service: 08/26/24 Procedure(s): CT abdomen pelvis w IV con Accession Number(s): [id number] cc: Hussain Wolf MD; [place] CIFUENTES NP Report Number: [id number]: Total DLP = 0.00 mGy-cm CLINICAL HISTORY: [...] in OV> 08/26/242313 DD/ 12 TD/TT: 08/26/242312 Machine Mover: Procedure Note Donotuseinterpreter, Image - 08/26/[address] [place] [address] [address] Scan Report Signed Patient: Arnav Dalton#: [id number] 1 : 5Acct:[id number] Age/Sex: 69 / FADM Date: 08/26/24 Loc: HO.ED Attending Dr: Ordering Physician: Hussain Wolf MD Date of Service: 08/26/24 Procedure(s): CT abdomen pelvis w IV con Accession Number(s): [id number] cc: Hussain Wolf MD; [place] CIFUENTES NP Report Number: [id number]: Total DLP = 0.00 mGy-cm CLINICAL HISTORY: [...] in OV> 08/26/242313 DD/ 12 TD/TT: 08/26/242312 Machine Mover: [facility] External Provider IMG CT PROCEDURES Edited Result - Final * (ABNORMAL) Urinalysis, Complete, with Reflex to Culture (08/26/2024 10:46 PM EDT) Color Urine Yellow [facility] Appearance Urine Clear [facility] PH 8.0 5.0 - 9.0 [facility] Glucose Urine UA Negative Negative mg/dL [facility] Urine Blood Negative Negative [facility] Specific [place] - Urine 1.020 1.005 - 1.025 [facility] Urine Protein Negative Neg-Trace mg/dL [facility] Urine Ketones Negative Negative mg/dL [facility] Nitrite Urine Negative Negative [facility] Leukocyte Esterase Urine Small (1+)(A) Negative [facility] RBC Urine 0-2 0 - 2 /HPF [facility] Urine WBC 0-5 0 - 5 /HPF [facility] Urine Squamous Epithelial Cell 3-5 0 - 2 /HPF [facility] Urine Bacteria None Seen None Seen [facility] Hyaline Casts, Urine 0-2 0 - 2 /LPF [facility] 08/26/2024 10:4 6 PM EDT 08/26/2024 10:49 PM EDT [facility] - 08/26/2024 11:34 PM EDT [id number], Clean Catch Generic External Data Provider LAB URINE ORDERAB LES Final Result Performing Organization Address [facility] Co de Phone Number [facility] [address] [place] [phone] * Culture, Urine, Routine (08/26/2024 10:46 PM EDT) Urine Urine specimen obtained by clean catch procedure / Unknown 08/26/2024 10:46 PM EDT 08/27/2024 12:27 AM EDT Comment:[facility] - 08/28/2024 12:23 PM EDT Urine Culture Report Result Urine Culture < 10,000 cfu/ml Specimen Source: Urine clean catch Generic External Data Provider LAB MICROBIOLOGY - GENERAL ORDERABLES Final Result Performing Organization Address [facility] Co de Phone Number [facility] [address] [place] [phone] * XR Chest 1 View (08/26/2024 10:14 PM EDT) Anatomical Region Laterality Modality Chest Radiographic Bernadine ging 08/26/2024 10:1 4 PM EDT Narrative 08/26/2024 10:15 PM EDT [address] [address] XRay Report Signed Patient: Lois Dalton MR#: [id number] 1 : 1955 Acct:[id number] Age/Sex: 69 / F ADM Date: 08/26/24 Loc: .ED Attending Dr: Ordering Physician: Hussain Wolf MD Date of Service: 08/26/24 Procedure(s): XR chest 1V Accession Number(s): [id number] cc: Hussain Wolf MD; [place]IA CIFUENTES NP [...] in OV> 08/26/242214 DD/ 13 TD/TT: 08/26/242213 Machine Mover: Procedure Note Donotuseinterpreter, Image - 08/26/2024 [place] [address] XRay Report Signed Patient: Arnav Dalton#: [id number] 1 : 5Acct:[id number] Age/Sex: 69 / FADM Date: 08/26/24 Loc: HO.ED Attending Dr: Ordering Physician: Hussain Wolf MD Date of Service: 08/26/24 Procedure(s): XR chest 1V Accession Number(s): [id number] cc: Hussain Wolf MD; ALB[place]IA CIFUENTES NP [...] in OV> 08/26/242214 DD/ 13 TD/TT: 08/26/242213 Machine Mover: [facility] External Provider IMG XR PROCEDURES Edited Result - Final * XR Lumbar Spine 2-3 Views (08/26/2024 10:08 PM EDT) Anatomical Region Laterality Modality Spine, L-spine Radiographic Bernadine ging 08/26/2024 10:0 8 PM EDT Narrative 08/26/2024 10:11 PM EDT [address] [address] XRay Report Signed Patient: Lois Dalton MR#: [id number] 1 : 1955 Acct:[id number] Age/Sex: 69 / F ADM Date: 08/26/24 Loc: HO.ED Attending Dr: Ordering Physician: Hussain Wolf MD Date of Service: 08/26/24 Procedure(s): XR lumbar spine 2-3V Accession Number(s): [id number] cc: Hussain Wolf MD; [place] CIFUENTES NP [...] of the imaged small intestine in the avvmv-jq-anxe with moderate stool burden partially imaged. IMPRESSION: 1. Degenerative changes include facet arthropathy, particularly in the lower lumbar spine. 2. No acute compression fracture 5 lumbar vertebrae. This document has been electronically signed by: Archie Dunn MD on 08/26/2024 22:08:26 Dictated By: Archie Dunn MD Signed By: <Electronically signed by Archie Dunn MD in OV> 08/26/242208 DD/ 07 TD/TT: 08/26/242207 Machine Mover: Procedure Note Donotuseinterpreter, Image - 08/26/[address] [address] XRay Report Signed Patient: Lois DaltonMR#: [id number] 1 : 1955ct:[id number] Age/Sex: 69 / FADM Date: 08/26/24 Loc: HO.ED Attending Dr: Ordering Physician: Hussain Wolf MD Date of Service: 08/26/24 Procedure(s): XR lumbar spine 2-3V Accession Number(s): [id number] cc: Hussain Wolf MD; [place] CIFUENTES NP [...] of the imaged small intestine in the ieitf-nb-pfai with moderate stool burden partiallyimaged. IMPRESSION: 1. Degenerative changes include facet arthropathy, particularly in the lower lumbar spine. 2. No acute compression fracture 5 lumbar vertebrae. This document has been electronically signed by: Archie Dunn MD on 08/26/2024 22:08:26 Dictated By: Archie Dunn MD Signed By: <Electronically signed by Archie Dunn MD in OV> 08/26/242208 DD/ 07 TD/TT: 08/26/242207 Machine Mover: [facility] External Provider IMG XR PROCEDURES Edited Result - Final * (ABNORMAL) POCT HGB A1C (08/09/2024 1:41 PM EDT) Hemoglobin A1C 7.1(A) 4.0 - 6.0 % QC Media Lot # [id number] Lot# Expiration Date Blood 08/09/2024 1:41 PM EDT us [place] SILVA POINT OF CARE TEST ENTER/EDIT OR DERABLES Final Result * BI Mammogram Screening Tomosynthesis Bilateral (07/07/2024 12:21 PM EDT) Anatomical Region Laterality Modality Breast Bilateral Mammography 07/07/2024 12:2 1 PM EDT Narrative 07/15/2024 4:34 PM EDT [facility] [address] [place], [place] [address] Mammography Report Signed Patient: Lois Dalton MR#: [id number] 1 : 1955 Acct:[id number] Age/Sex: 69 / F ADM Date: 07/07/24 Loc: HO.MAMMO Attending Dr: [place] Cifuentes NP Ordering Physician: [place] CIFUENTES NP Results: 1Negative Date of Service: 07/07/24 Follow Up: 1 Year From Orig inal Mammogram Procedure(s): MM tomosynthesis screening BI Accession Number(s): [id number] cc: [place] CIFUENTES NP EXAMINATION: MM SCREENING [...] 07/15/24 1631 DD/ 1221 TD/TT: 07/07/24 1246 Machine Mover: Procedure Note Donotuseinterpreter, Image - 07/15/2024 [facility] [address] [place] [address] Mammography Report Signed Patient: Arnav Dalton#: [id number] 1 : 5Acct:[id number] Age/Sex: 69 / FADM Date: 07/07/24 Loc: HO.MAMMO Attending Dr: [place] Cifuentes PIPE STRESS ENGINEER Ordering Physician: [place] CIFUENTES NPResults: 1Negative Date of Service: 07/07/24Follow Up: 1 Year From Orig inal Mammogram Procedure(s): MM tomosynthesis screening BI Accession Number(s): [id number] cc: [place] CIFUENTES NP EXAMINATION: MM SCREENING [...] 07/15/24 1631 DD/ 1221 TD/TT: 07/07/24 1246 Machine Mover: [place] Cifuentes ANP IMG BI PROCEDURES Final Result * (ABNORMAL) Hm Colonoscopy (12/23/2022) Colonoscopy Abnormal( A) Normal [facility] Comment:tubular adenoma 12/23/2022 Result [facility] Yuni Jeffery MD HEALTH MAINTENANCE Final Result Performing Organization Address [facility] Co de Phone Number [facility] [address] [place] [phone] * Albumin, Random Urine W/Creatinine (08/15/2022 1:45 PM EDT) Creatinine, Urine 50.16 mg/dL [facility] Microalbumin Urine 12.0 mg/L [facility] Microalbum Creatinine Ratio Ur 23.9 ug/mg cr [facility] Comment:Albumin/Creatinine R atio Reference Ranges: Normal: < 30 ug/mg creatinine Microalbuminuria: 30 - 300 ug/mg creatinineClinical Albuminuria: > 300 ug/mg creatinine 08/15/2022 1:45 PM EDT 08/15/2022 2:19 PM EDT Result [facility] External Provider LAB URI NE ORDERABLES Final Result Performing Organization Address [facility] Co de Phone Number [facility] [address] [place] [phone] * Direct LDL (08/15/2022 12:35 PM EDT) LDL Direct 70 <100 mg/dL [facility] Comment:Greatly elevated Tri glycerides values (>1200 mg/dL)interfere with the dLDL assay. As no Triglyceridestesting was ordered, interpret results with caution.Desirable range <100 mg/dL for primary prevention;<70 mg/dL for patients with CHD or diabetic patientswith > or = 2 CHD risk factors.THIS TEST WAS PERFORMED AT:[facility] [place] [id number] JAIME MD 08/15/2022 12:3 5 PM EDT 08/15/2022 12:36 PM EDT us [facility] External Provider LAB BLO OD ORDERABLES Final Result [facility] [address] [facility] [facility] [place] [phone] from Last 3 Months or Most Recently Relevant to Health Maintenance Insurance [facility] [employer] OPTIONS (HMO D-SNP) [place] [id number] Care Teams Electric Range Assembler Relationship Specialty Start Date End Date [place] Cifuentes ANP [address] [place] [address] [place] [address] PCP - General Family Medicine 10/03/19 [facility] [place] 07/31/23
--- OUTSIDE RECORDS SUMMARY | 2024-11-22 15:13 | XMS_ITS | Encounter Summary ---
Author Organization [employer] Address [address] 7t [place] [address] Care Team Providers Care Steel Wheel Engraver Name Role Phone Breanna Zamudio Primary Care Provider [phone] Reason for Visit * Reason Comments Med Refill Encounter Details Date Type Department Care Team (Late st Contact Info) Description 08/24/2023 Refill [facility] MEDICINE [address] [place], [place] [phone] Breanna Zamudio ANP [address] [place], [place] [phone] Ischemic colitis ([facility]) Social History Tobacco Use Types [...] EST Telemedicine [facility] MED & PEDS [address] [place] [address] Sis Coppola, RN 505 [place] [address] documented as of this encounter Visit Diagnoses Diagnosis Ischemic colitis (CMS/HCC) documented in this encounter Care Teams Steel Wheel Engraver Relationship Specialty Start Date End Date Breanna Zamudio ANP [address] [place] [address] PCP - General Family Medicine 10/03/19 [facility] 07/31/23 documented as of this encounter
--- OUTSIDE RECORDS SUMMARY | 2024-11-22 15:13 | XMS_ITS | Encounter Summary ---
Author Organization [employer] Address [address] [place] [address] 7 [place] [address] Care Team Providers Care Track Manager Name Role Phone Breanna Zamudio Primary Care Provider [phone] Encounter Details Date Type Department Care Team (Late st Contact Info) Description 03/19/2022 Orders Only [facility] MED [facility] PED[facility] [address] [place] [address] Breanna Zamudio ANP 230 [place] [address] Moderate persistent asthma without complication (Primary Dx) [...] 01/23/2025 2:00 PM EST Telemedicine [facility] [address] [place] [address] Sis Coppola, AIDA 505 [place] [address] documented as of this encounter Visit Diagnoses Diagnosis Moderate persistent asthma without complication- Primary documented in this encounter Care Teams Track Manager Relationship Specialty Start Date End Date Breanna Zamudio ANP 230 [place] [address] PCP - General Family Medicine 10/03/19 [facility] 07/31/23 documented as of this encounter
--- OUTSIDE RECORDS SUMMARY | 2024-11-22 15:13 | XMS_ITS | Encounter Summary ---
Author Organization [employer] Address [address] 7t [place] [address] Care Team Providers Care Writer Producer Name Role Phone Breanna Zamudio Primary Care Provider [phone] Reason for Visit * Reason Onset Date Comments Med Refill 11/18/2023 Encounter Details Date Type Department Care Team (Late st Contact Info) Description 11/18/2023 Telephone [facility] MEDICINE 230 [place], [place] [phone] Breanna Zamudio ANP [address] [place], [place] [phone] Med Refill Social History Tobacco Use Types [...] to: [facility] - [place], [place] - [address] [place] [address] documented in this encounter Plan of Treatment Upcoming Encounters Date Type Department Care Team ([facility] st Contact Info) Description 01/23/2025 2:00 PM EST Telemedicine [facility]EDS 505 [place] [address] Sis Coppola, AIDA 505 [place] [address] documented as of this encounter Visit Diagnoses Not on filedocumented in this encounter Care Teams Writer Producer Relationship Specialty Start Date End Date Breanna Zamudio ANP [address] [place] [address] PCP - General Family Medicine 10/03/19 [facility] 07/31/23 documented as of this encounter
--- OUTSIDE RECORDS SUMMARY | 2024-11-22 15:13 | XMS_ITS | Encounter Summary ---
Author Organization [employer] Address [address] 7t [place] [address] Care Team Providers Care Slab Worker Name Role Phone Breanna Zamudio Primary Care Provider [phone] Reason for Visit * Reason Onset Date Comments Medication Question 08/11/2024 Encounter Details Date Type Department Care Team ([facility] st Contact Info) Description 08/11/2024 Telephone [facility] MEDICINE 230 [place], [place] [phone] Breanna Zamudio ANP 230 [place], [place] [phone] Medication Question Social History Tobacco Use Types [...] month. States will be leaving out of [place] on Thursday and needs all her medications. Pt will be out for more than a month. Medication: OxyCODONE (Roxicodone) 10 MG immediate release tablet [phone] Patient [phone] Pt spouse documented in this encounter Plan of Treatment Upcoming Encounters Date Type Department Care Team ([facility] st Contact Info) Description 01/23/2025 2:00 PM EST Telemedicine [facility] 505 [place] [address] Sis Coppola, AIDA 505 [place] [address] documented as of this encounter Visit Diagnoses Not on filedocumented in this encounter Care Teams Slab Worker Relationship Specialty Start Date End Date Breanna Zamudio ANP [address] [place] [address] PCP - General Family Medicine 10/03/19 [facility] 07/31/23 documented as of this encounter
--- OUTSIDE RECORDS SUMMARY | 2024-11-22 15:13 | XMS_ITS | Encounter Summary ---
Author Organization [employer] Address [address] [facility] 7t [place] [address] Care Team Providers Care Poultry Processing Supervisor Name Role Phone Breanna Zamudio Primary Care Provider [phone] Reason for Visit * Reason Onset Date Comments Durable Medical Equipment 09/08/2022 Encounter Details Date Type Department Care Team (Late st Contact Info) Description 09/08/2022 Telephone [facility] MEDICINE 230 [place], [place] [phone] Breanna Zamudio ANP 230 [place] [address] Durable Medical Equipment Social History Tobacco Use [...] machines, please see notes,. Please contact at [phone] Nicaraguan * Telephone Encounter - RICARDO Caraballo - 09/19/2022 6:26 PM EDT Yes, of course. Thank you. Will place signed RX on your desk. * Telephone Encounter - Madhuri Doe - 09/18/2022 1:56 PM EDT Tc from [facility] with [facility] requesting status on nebulizer. States if script has not been sent to [facility] emergency department, fax to [facility]. FAX: [phone] Please contact [facility] at [phone] ext [phone] * Telephone Encounter - Rosalinda Rucker - 09/08/2022 3:29 PM EDT Tc from patient requesting a new script for a nebulizer machine. States current one broke. documented in this encounter Plan of Treatment Upcoming Encounters Date Type Department Care Team (Late st Contact Info) Description 01/23/2025 2:00 PM EST Telemedicine [facility] MED & PEDS 505 [place] [address] Sis Coppola, RN 505 [place] [address] documented as of this encounter Visit Diagnoses Not on filedocumented in this encounter Care Teams Poultry Processing Supervisor Relationship Specialty Start Date End Date Breanna Zamudio ANP [address] [place] [address] PCP - General Family Medicine 10/03/19 [facility] 07/31/23 documented as of this encounter
--- OUTSIDE RECORDS SUMMARY | 2024-11-22 15:13 | XMS_ITS | Encounter Summary ---
Author Organization [employer] Address [address] 7t [place] [address] Care Team Providers Care Padder Cushion Name Role Phone Breanna Zamudio Primary Care Provider [phone] Reason for Visit * Reason Onset Date Comments Med Refill 10/27/2023 Encounter Details Date Type Department Care Team (Late st Contact Info) Description 10/27/2023 Telephone [facility] MEDICINE 230 [place], [place] [phone] Breanna Zamudio ANP 230 [place], [place] [phone] Med Refill Social History Tobacco Use Types [...] immediate release tablet To be sent to: [facility] documented in this encounter Plan of Treatment Upcoming Encounters Date Type Department Care Team (Late st Contact Info) Description 01/23/2025 2:00 PM EST Telemedicine [facility] MED [facility] PEDS 505 [place] [address] Sis Coppola, RN 505 [place] [address] documented as of this encounter Visit Diagnoses Not on filedocumented in this encounter Care Teams Padder Cushion Relationship Specialty Start Date End Date Breanna Zamudio ANP [address] [place] [address] PCP - General Family Medicine 10/03/19 [facility] 07/31/23 documented as of this encounter
--- OUTSIDE RECORDS SUMMARY | 2024-11-22 15:13 | XMS_ITS | Encounter Summary ---
Author Organization [employer] [facility] Address [address] [place] [address] 7t [place] [address] Care Team Providers Care Adult Basic Education Teacher Name Role Phone Breanna Zamudio Primary Care Provider [phone] Reason for Visit * Reason Comments Med Refill Encounter Details Date Type Department Care Team (Late Contact Info) Description 12/02/2022 Refill [facility] MEDICINE 230 [place] [address] Breanna Zamudio ANP 230 [place] [address] Pain in unspecified joint Social History Tobacco [...] [facility]S 505 [place], [place] [phone] Sis Coppola, AIDA 505 [place], [place] [phone] documented as of this encounter Visit Diagnoses Diagnosis Pain in unspecified joint documented in this encounter Care Teams Adult Basic Education Teacher Relationship Specialty Start Date End Date Breanna Zamudio ANP 230 [place] [address] PCP - General Family Medicine 10/03/19 [facility] 07/31/23 documented as of this encounter
--- OUTSIDE RECORDS SUMMARY | 2024-11-22 15:13 | XMS_ITS | Encounter Summary ---
Author Organization [employer] Address [address] 7t [place] [address] Care Team Providers Care Chiropractor Assistant Name Role Phone Breanna Zamudio Primary Care Provider [phone] Reason for Visit * Reason Onset Date Comments Appointment Request 07/08/2024 Encounter Details Date Type Department Care Team ([facility] st Contact Info) Description 07/08/2024 Telephone [facility] MEDICINE 230 [place], [place] [phone] Breanna Zamudio ANP 230 [place], [place] [phone] Appointment Request Social History Tobacco Use Types [...] Miscellaneous Notes * Telephone Encounter - Hong Smith - 07/08/2024 11:48 AM EDT Tc from pt requesting to R/s appt from 06/14/24. Pt is leaving to [place] on 07/09/24 at around 2 pm but pt was only given half of the pack for the Oxy and Spouse would like to see if anything can be done so that pt gets her full medication. Contact pt Spouse at [phone] documented in this encounter Plan of Treatment Upcoming Encounters Date Type Department Care Team (Late st Contact Info) Description 01/23/2025 2:00 PM EST Telemedicine [facility] MED & PEDS 505 [place] [address] Sis Coppola RN 505 [place] [address] documented as of this encounter Visit Diagnoses Not on filedocumented in this encounter Care Teams Chiropractor Assistant Relationship Specialty Start Date End Date Breanna Zamudio ANP [address] [place] [address] PCP - General Family Medicine 10/03/19 [facility] 07/31/23 documented as of this encounter
--- OUTSIDE RECORDS SUMMARY | 2024-11-22 15:13 | XMS_ITS | Encounter Summary ---
Author Organization [employer] Address [address] 7t [place] [address] Care Team Providers Care Web Consultant Name Role Phone Breanna Zamudio Primary Care Provider [phone] Reason for Visit * Reason Onset Date Comments Med Refill 01/21/2024 Encounter Details Date Type Department Care Team (Late st Contact Info) Description 01/21/2024 Telephone [facility] MEDICINE 230 [place], [place] [phone] Breanna Zamudio ANP 230 [place], [place] [phone] Med Refill Social History Tobacco Use Types [...] immediate release tablet To be sent to: [facility] - [place], [place] - [address] [place] [address] documented in this encounter Plan of Treatment Upcoming Encounters Date Type Department Care Team ([facility] st Contact Info) Description 01/23/2025 2:00 PM EST Telemedicine [facility] MED [facility] PEDS 505 [place] [address] Sis Coppola RN 505 [place] [address] documented as of this encounter Visit Diagnoses Not on filedocumented in this encounter Care Teams Web Consultant Relationship Specialty Start Date End Date Breanna Zamudio ANP 230 [place] [address] PCP - General Family Medicine 10/03/19 [facility] 07/31/23 documented as of this encounter
--- OUTSIDE RECORDS SUMMARY | 2024-11-22 15:13 | XMS_ITS | Encounter Summary ---
Author Organization [employer] Address [address] [facility] 7t [place] [address] Care Team Providers Care Odd Shoe Examiner Name Role Phone Breanna Zamudio Primary Care Provider [phone] Reason for Visit * Reason Onset Date Comments Med Refill 02/27/2023 Encounter Details Date Type Department Care Team (Late st Contact Info) Description 02/27/[address] [facility] MEDICINE 230 [place], [place] [phone] Breanna Zamudio ANP 230 [place], [place] [phone] Med Refill Social History Tobacco Use Types [...] Upcoming Encounters Date Type Department Care Team ([facility] st Contact Info) Description 01/23/2025 2:00 PM EST Telemedicine [facility] PEDS 505 [place] [address] Sis Coppola, AIDA 505 [place] [address] documented as of this encounter Visit Diagnoses Not on filedocumented in this encounter Care Teams Odd Shoe Examiner Relationship Specialty Start Date End Date Breanna Zamudio ANP [address] [place] [address] PCP - General Family Medicine 10/03/19 [facility] 07/31/23 documented as of this encounter
--- OUTSIDE RECORDS SUMMARY | 2024-11-22 15:13 | XMS_ITS | Encounter Summary ---
Author Organization [employer] Address [address] 7t [place] [address] Care Team Providers Care Battery Tester And Repairer Name Role Phone Breanna Zamudio Primary Care Provider [phone] Reason for Visit * Reason Comments Med Refill Encounter Details Date Type Department Care Team (Late st Contact Info) Description 08/24/2023 Refill [facility] MEDICINE 230 [place], [place] [phone] Breanna Zamudio ANP 230 [place], [place] [phone] Ischemic colitis ([facility]) Social History Tobacco Use Types Packs/Day [...] 01/23/2025 2:00 PM EST Telemedicine [facility] MED & PEDS 505 [place] [address] Sis Coppola, RN 505 [place] [address] documented as of this encounter Visit Diagnoses Diagnosis Ischemic colitis (CMS/HCC) documented in this encounter Care Teams Battery Tester And Repairer Relationship Specialty Start Date End Date Breanna Zamudio ANP 230 [place] [address] PCP - General Family Medicine 10/03/19 [facility] 07/31/23 documented as of this encounter
--- OUTSIDE RECORDS SUMMARY | 2024-11-22 15:13 | XMS_ITS | Encounter Summary ---
Author Organization [employer] [facility] Address [address] [place] [address] 7t [place] [address] Care Team Providers Care City Planning Teacher Name Role Phone Breanna Zamudio Primary Care Provider [phone] Reason for Visit * Reason Comments Med Refill Encounter Details Date Type Department Care Team (Late Contact Info) Description 11/21/2022 Refill [facility] MEDICINE 230 [place] [address] Breanna Zamudio ANP 230 [place] [address] Pain in unspecified joint Social History Tobacco [facility] 505 [place], [place] [phone] Sis Coppola, AIDA 505 [place], [place] [phone] documented as of this encounter Visit Diagnoses Diagnosis Pain in unspecified joint documented in this encounter Care Teams City Planning Teacher Relationship Specialty Start Date End Date Breanna Zamudio ANP 230 [place] [address] PCP - General Family Medicine 10/03/19 [facility] 07/31/23 documented as of this encounter
[2024-11-24 09:27] VITALS: BMI 33.4
[2024-11-24 09:37] VITALS: BP 190/80; PULSE 71; RESP 16; TEMP 36.6; O2SAT 98
[2024-11-24] MEDS: Lactated Ringers 1,000 ML 100 ML IVCONT (09:41)
[2024-11-24 09:42] LABS: Glucose, Whole Blood 139 mg/dL (60-115)
--- NOTE | 2024-11-24 09:46 | HO.ANESPROP2 ---
Documented by User: Angela Renae NP 11/22/24 15:05 HPI - Anesthesia Eval Consult details Narrative: 69yo F for Upper Endoscopy s/p EGD and [place] 11/16/24 with TIVA Referred to cardiology for chest pain/SOB 02/2024: Had normal myocardial perfusion study; cardiac CTA ordered at 03/2024, but not yet done. Mj Sagastume NP from cardiology stated okay to proceed with GI procedures via [place] text 11/15/24. 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) Lumbar back pain with radiculopathy affecting left lower extremity (Acute) Atypical chest pain (Acute) Palpitations (Acute) Epigastric abdominal pain (Acute) Acute blood loss anemia (Acute) Ischemic colitis (Acute) Status post knee replacement (Acute) Pulmonary embolism (Acute) Pre-op chest exam (Acute) Cough due to SHANELLE inhibitor (Acute) Asthma (Acute) Upper respiratory infection (Acute) COPD exacerbation (Acute) HLD (hyperlipidemia) (Acute) Chronic idiopathic constipation (Acute) Tubular adenoma of colon (Acute) Skin lesion of chest wall (Acute) Skin lesion of back (Acute) Status post total knee replacement, right (Acute) Diabetes mellitus with hyperglycemia (Acute) Chronic restrictive lung disease (Acute) GERD (gastroesophageal reflux disease) (Acute) Eosinophilia (Acute) Erosive gastritis (Acute) Leg edema, left (Acute) Hyperparathyroidism (Acute) Vitamin D deficiency (Acute) Multinodular thyroid (Acute) Thyroid nodule (Acute) Type 2 diabetes mellitus with diabetic polyneuropathy (Acute) Meir's disease (Acute) Other specified acquired hypothyroidism (Acute) Hyperlipidemia LDL goal <100 (Acute) Essential hypertension (Acute) Vitamin B12 deficiency (Acute) Other obesity due to excess calories (Acute) Past Medical History Medical History (Updated 11/21/24 @ 09:28 by Ludmila Walker MD) Pulmonary embolism Asthma-COPD overlap syndrome Hypertension MGUS (monoclonal gammopathy of unknown significance) Chronic restrictive lung disease Obesity (BMI 30.0-34.9) Eosinophilia Erosive gastritis Leg edema, left Hyperparathyroidism Vitamin D deficiency Multinodular thyroid Thyroid nodule Type 2 diabetes mellitus with diabetic polyneuropathy Fibromyalgia Depression with anxiety Cervical cancer Osteoarthritis of left knee Osteopenia GERD (gastroesophageal reflux disease) Meir's disease Other specified acquired hypothyroidism Hyperlipidemia LDL goal <100 Essential hypertension Vitamin B12 deficiency Other obesity due to excess calories BMI 35.0-35.9,adult Family History Family History Father CVD (cardiovascular disease) Diabetes mellitus Stroke Mother Stroke Diabetes mellitus Breast cancer Hyperthyroidism Family history of problems with anesthesia: No Surgical History Surgical History History of total left knee replacement Hx of elbow surgery Hx of hand surgery Hx of arthroscopic knee surgery History of cholecystectomy History of arthroplasty of right knee Hx of hysterectomy Hx of foot surgery History of bilateral carpal tunnel release Hx of bilateral oophorectomy History of esophagogastroduodenoscopy (EGD) Hx of colonoscopy History of Problems with Anesthesia: No Social History Social History Household Members: Spouse Housing: House Housing Other:: 2nd floor-2 family house Are you a primary manager progressive care to a significant other at home: No Do you presently have visiting nurse or other home services: No Alcohol intake: never Comment: continues with camera Patient Tobacco Use Status: Never used Tobacco Use of substances other than those prescribed or required for medical reasons: No Advance Directives: No Advance Directives Information Provided: Yes Advance Directives Date on File: 03/06/23 service: No 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al status: disabled 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 Allergies Allergy/AdvReac Type Severity Reaction Status Date / Time hazelnut Allergy Mild per Verified 11/16/24 10:47 allergy skin test peanut Allergy Mild per Verified 11/16/24 10:47 allergy skin test Home Medications ?Medication ?Instructions ?Recorded ?Confirmed ?Last Taken ?Type blood sugar diagnostic #10 ea 03/19/20 11/16/24 02/26/23 History metoprolol succinate 200 mg 200 mg PO DAILY 07/09/20 11/24/24 11/24/24 08:00 History tablet,extended release 24 hr albuterol sulfate 0.63 mg/3 mL 1 amp inhalation Q4H PRN wheezing 03/24/22 11/16/24 Unknown History solution for nebulization multivitamin-ferrous 1 tab PO DAILY 03/24/22 11/16/24 05/25/23 History fumarate-folic acid 18 mg-400 mcg tablet (Certavite-Antioxidant) cyanocobalamin (vitamin B-12) 1,000 mcg PO DAILY 02/28/23 11/16/24 05/25/23 History 1,000 mcg sublingual tablet empagliflozin 25 mg tablet 25 mg PO QAM 02/28/23 11/24/24 11/16/24 08:00 History (Jardiance) fluticasone propionate 50 1 spray intranasal DAILY 05/25/23 11/16/24 05/25/23 History mcg/actuation nasal spray,suspension psyllium husk 3 gram/5.4 gram oral 3 g PO DAILY 05/27/23 11/16/24 Unknown History powder (Reguloid (psyllium husk)) acetaminophen 650 mg 650 mg PO TID 11/30/23 11/16/24 Unknown History tablet,extended release clonidine HCl 0.1 mg tablet 0.1 mg PO BID 11/30/23 11/16/24 Unknown History lisinopril 40 mg tablet 40 mg PO DAILY 11/30/23 11/16/24 Unknown History oxycodone 10 mg tablet 10 mg PO QID PRN Pain 11/30/23 11/16/24 Unknown History trazodone 150 mg tablet 150 mg PO BEDTIME 11/30/23 11/16/24 Unknown History celecoxib 200 mg capsule 200 mg PO DAILY 02/15/24 11/16/24 Unknown History insulin glargine 100 unit/mL (3 40 unit subcut BEDTIME 06/28/24 11/16/24 Unknown History mL) subcutaneous pen (Lantus Solostar U-100 Insulin) olmesartan 40 mg tablet 40 mg PO DAILY 09/05/24 11/16/24 Unknown History venlafaxine 75 mg capsule,extended 75 mg PO DAILY 09/05/24 11/16/24 Unknown History release 24 hr Exam Pertinent Lab Results Pertinent Lab Results: Laboratory Tests 09/06/24 12:36 WBC 8.9 RBC 4.84 Hgb 14.0 Hct 40.8 Plt Count 212 Sodium 139 Potassium 4.3 D BUN 12 Creatinine 0.79 Narrative Narrative: EKG 08/2024 Vent. Rate : 88 BPM Atrial Rate : 88 BPM P-R Int : 136 ms QRS Dur : 100 ms QT Int : 386 ms P-R-T Axes : 48 9 59 degrees QTcB Int : 467 ms Normal sinus rhythm Normal ECG When compared with ECG of 11-Aug-2024 02:02, No significant change was found Myocardial perfusion study 02/2024 Impression: 1. Myocardial perfusion imaging study shows normal myocardial perfusion 2. Gated LVEF is 67% 3. Transient ischemic dilatation not present Nondiagnostic changes on EKG. Assessment and Plan Assessment Anesthesia Assessment: Chart Reviewed Final Anesthetic Review Family History of Problems with Anesthesia: No History of Problems with Anesthesia: No Documented by User: Melina Castellanos DO 11/24/24 09:49 HPI - Anesthesia Eval Consult details Narrative: 69yo F for Upper Endoscopy for benign carcinoid tumor of the stomach s/p EGD and [place] 11/16/24 with TIVA H/O DVT/PE: on anticoagulation (eliquis) COPD/asthma: on Trelegy Type 2 DM: A1C 7.1% 10/2024 Anesthesia Pre-Procedure Meds Is the patient on any of the following meds?: GLP1/DPP4 and SGLT2 Inhib PMFSH Past Medical History Medical History (Updated 11/21/24 @ 09:28 by Ludmila Walker MD) Pulmonary embolism Asthma-COPD overlap syndrome Hypertension MGUS (monoclonal gammopathy of unknown significance) Chronic restrictive lung disease Obesity (BMI 30.0-34.9) Eosinophilia Erosive gastritis Leg edema, left Hyperparathyroidism Vitamin D deficiency Multinodular thyroid Thyroid nodule Type 2 diabetes mellitus with diabetic polyneuropathy Fibromyalgia Depression with anxiety Cervical cancer Osteoarthritis of left knee Osteopenia GERD (gastroesophageal reflux disease) Meir's disease Other specified acquired hypothyroidism Hyperlipidemia LDL goal <100 Essential hypertension Vitamin B12 deficiency Other obesity due to excess calories BMI 35.0-35.9,adult Family History Family History Father CVD (cardiovascular disease) Diabetes mellitus Stroke Mother Stroke Diabetes mellitus Breast cancer Hyperthyroidism Family history of problems with anesthesia: No Surgical History Surgical History History of total left knee replacement Hx of elbow surgery Hx of hand surgery Hx of arthroscopic knee surgery History of cholecystectomy History of arthroplasty of right knee Hx of hysterectomy Hx of foot surgery History of bilateral carpal tunnel release Hx of bilateral oophorectomy History of esophagogastroduodenoscopy (EGD) Hx of colonoscopy History of Problems with Anesthesia: No Social History Social History Household Members: Spouse Housing: House Housing Other:: 2nd floor-2 family house Are you a primary manager progressive care to a significant other at home: No Do you presently have visiting nurse or other home services: No Alcohol intake: never Comment: continues with camera Patient Tobacco Use Status: Never used Tobacco Use of substances other than those prescribed or required for medical reasons: No Advance Directives: No Advance Directives Information Provided: Yes Advance Directives Date on File: 03/06/23 service: No 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al status: disabled 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 Allergies Allergy/AdvReac Type Severity Reaction Status Date / Time hazelnut Allergy Mild per Verified 11/16/24 10:47 allergy skin test peanut Allergy Mild per Verified 11/16/24 10:47 allergy skin test Home Medications ?Medication ?Instructions ?Recorded ?Confirmed ?Last Taken ?Type blood sugar diagnostic #10 ea 03/19/20 11/16/24 02/26/23 History metoprolol succinate 200 mg 200 mg PO DAILY 07/09/20 11/24/24 11/24/24 08:00 History tablet,extended release 24 hr albuterol sulfate 0.63 mg/3 mL 1 amp inhalation Q4H PRN wheezing 03/24/22 11/16/24 Unknown History solution for nebulization multivitamin-ferrous 1 tab PO DAILY 03/24/22 11/16/24 05/25/23 History fumarate-folic acid 18 mg-400 mcg tablet (Certavite-Antioxidant) cyanocobalamin (vitamin B-12) 1,000 mcg PO DAILY 02/28/23 11/16/24 05/25/23 History 1,000 mcg sublingual tablet empagliflozin 25 mg tablet 25 mg PO QAM 02/28/23 11/24/24 11/16/24 08:00 History (Jardiance) fluticasone propionate 50 1 spray intranasal DAILY 05/25/23 11/16/24 05/25/23 History mcg/actuation nasal spray,suspension psyllium husk 3 gram/5.4 gram oral 3 g PO DAILY 05/27/23 11/16/24 Unknown History powder (Reguloid (psyllium husk)) acetaminophen 650 mg 650 mg PO TID 11/30/23 11/16/24 Unknown History tablet,extended release clonidine HCl 0.1 mg tablet 0.1 mg PO BID 11/30/23 11/16/24 Unknown History lisinopril 40 mg tablet 40 mg PO DAILY 11/30/23 11/16/24 Unknown History oxycodone 10 mg tablet 10 mg PO QID PRN Pain 11/30/23 11/16/24 Unknown History trazodone 150 mg tablet 150 mg PO BEDTIME 11/30/23 11/16/24 Unknown History celecoxib 200 mg capsule 200 mg PO DAILY 02/15/24 11/16/24 Unknown History insulin glargine 100 unit/mL (3 40 unit subcut BEDTIME 06/28/24 11/16/24 Unknown History mL) subcutaneous pen (Lantus Solostar U-100 Insulin) olmesartan 40 mg tablet 40 mg PO DAILY 09/05/24 11/16/24 Unknown History venlafaxine 75 mg capsule,extended 75 mg PO DAILY 09/05/24 11/16/24 Unknown History release 24 hr Exam Exam Date and Time: 11/24/24 0947 Height,Weight and Vital Signs: Height 5 ft 5 in Weight 91.1 kg Vital Signs Temperature 97.8 F 11/24/24 09:37 Pulse Rate 71 11/24/24 09:37 Respiratory Rate 16 11/24/24 09:37 Blood Pressure 190/80 H 11/24/24 09:37 Pulse Oximetry 98 11/24/24 09:37 Oxygen Delivery Method Room Air 11/24/24 09:37 Temperature 97.8 F 11/24/24 09:37 Pulse Rate 71 11/24/24 09:37 Respiratory Rate 16 11/24/24 09:37 Blood Pressure 190/80 H 11/24/24 09:37 Pulse Oximetry 98 11/24/24 09:37 Oxygen Delivery Method Room Air 11/24/24 09:37 Airway Mallampati Class: III TM Dist: <=3cm Neck ROM: Full Loose/Missing/Broken Teeth: No (patient denies any loose or broken teeth) Heart: S1S2 Lungs: CTAB Assessment and Plan Assessment Anesthesia Assessment: Anesthesia Plan Discussed and Chart Reviewed Final Anesthetic Review Family History of Problems with Anesthesia: No History of Problems with Anesthesia: No NPO: Yes ASA Class: III Final Preanesthetic Review: No Changes in Pt Med Stat, Meds/Allgs Chart Reviewed, Consent Obtained/Reviewed and Anes Risks/Benef Reviewed Patient Risk: Low Procedure Risk: Low Anesthetic Plan Anesthetic Plan: MAC: and Agree w/ Assess. and Plan Disposition: Standard PACU
--- NOTE | 2024-11-24 10:48 | MHC.SHP ---
Pre-Procedural Eval Section A - 24 Hr Update-Section A only Date of Service: 11/24/24 Section B - Complete if H&P > 30 days Chief Complaint: Other gastritis without bleeding Relevant Family History (Specify if Yes): No Relevant Social History: None Present Medications: see Short Stay Collaborative assessment Medical History: Significant History (Asthma-COPD overlap syndrome Hypertension Diabetes MGUS (monoclonal gammopathy of unknown significance) Chronic restrictive lung disease Obesity (BMI 30.0-34.9) Cough due to SHANELLE inhibitor Eosinophilia Asthma T2DM (type 2 diabetes mellitus) Erosive gastritis Leg edema, left Hyperparathyroidism Vitami) History of Previous Operations: Relevant previous surgery/procedure and date(s) (Hx of elbow surgery Hx of hand surgery Hx of arthroscopic knee surgery History of cholecystectomy History of arthroplasty of right knee Hx of hysterectomy Hx of foot surgery History of bilateral carpal tunnel release Hx of bilateral oophorectomy History of esophagogastroduodenoscopy (EGD) Hx of colo) Allergies: Allergies Allergy/AdvReac Type Severity Reaction Status Date / Time hazelnut Allergy Mild per Verified 11/16/24 10:47 allergy skin test peanut Allergy Mild per Verified 11/16/24 10:47 allergy skin test Review of Systems Sugical H&P ROS: Negative: Constitution, Cardiovascular, Respiratory, Neurological, Psychiatric, Hem-Onc, Allergic/Immunologic, Gastrointestinal, Genitourinary, Musculoskeletal, Integumentary, Endocrine and Eyes/Ears/Nose/Throat Exam Surgical H&P Exam: Normal: HEENT, Normal: Heart, Normal: Lungs, Normal: Extremities, Normal: Abdomen, Normal: Skin and Normal: Neurological Plan Diagnosis/Plan: Unchanged I have reviewed the history and physical and performed a pertinent physical examination on my patient. No changes have occurred unless specified. Time Spent With Patient Time: Total time managing care of this patient today ____ minutes.
--- NOTE | 2024-11-24 11:22 | W.PM.OPN ---
Operative Note Operative Note Date of Service: 11/24/24 Narrative: Procedure Description: EGD Indication: Carcinoid tumour Anesthesia: MAC FLEXIBLE TRANSORAL UPPER GASTROINTESTINAL ENDOSCOPY UPPER ENDOSCOPY Consent: Indications for the procedure and potential complications of bleeding, perforation, reaction to medications and missed diagnosis were discussed with the patient and informed consent was obtained. Instrument: Olympus GIF H 190 J mid size upper endoscope Monitoring: Vital signs and clinical assessment, continuous EKG monitoring, Pulse oximetry, Carbon Dioxide monitoring and blood pressure monitoring were done throughout the procedure. Procedure: The patient was placed in the left lateral decubitis position and pre-procedure medications were administered and a bite block was placed. The endoscope was inserted into the mouth and advanced under direct vision to the third part of duodenum. A careful inspection was made as the upper endoscope was withdrawn including a retroflexed examination of the proximal stomach; Findings and interventions are described below. Findings: Larynx:normal Esophagus: GE junction at 37 cm, diaphragm hiatus at 40 cm, consistent with 3 cm hiatal hernia, Stomach: Patchy erythema. Grade 2 flap valve on retroflexed examination of the cardia. Site of previous polypectomy noted with clip over it with surrounding induration. [place] was injected and using cold snare the surrounding tissue was removed and then ablated with soft tip coag. 5 clips were used hemostasis and partial closure of defect. Duodenum: Normal bulb and descending duodenum, Intervention: Resection of prior polypectomy site Impression/Findings: gastritis polypectomy PLAN: await f/u with onc and EUS referral GERD precautions
[2024-11-24 11:28] VITALS: BP 149/76; PULSE 71; RESP 16; TEMP 36.4; O2SAT 98
[2024-11-24 11:40] VITALS: BP 148/80; PULSE 72; RESP 16; O2SAT 98
[2024-11-24 11:45] VITALS: BP 158/84; PULSE 80; RESP 16; TEMP 36.1; O2SAT 98
== END 2024-11-24 12:41 | disposition home or self-care (01) ==
PROVIDERS: PCP Nurse Practitioner Primary Care; Visit Provider Internal Medicine Gastroenterology
PROC: 0DJ08ZZ Inspection of Upper Intestinal Tract, Via Natural or Artificial Opening Endoscopic (ICD-10-PCS; CPT 43235; principal; 2024-11-24 11:40)
DX: K21.9 Gastro-esophageal reflux disease without esophagitis (principal); K29.60 Other gastritis without bleeding; K44.9 Diaphragmatic hernia without obstruction or gangrene; E11.9 Type 2 diabetes mellitus without complications; I10 Essential (primary) hypertension; E78.5 Hyperlipidemia, unspecified; E03.9 Hypothyroidism, unspecified; E55.9 Vitamin D deficiency, unspecified; J44.9 Chronic obstructive pulmonary disease, unspecified; E66.9 Obesity, unspecified; Z68.33 Body mass index [BMI] 33.0-33.9, adult
CPT/HCPCS: 43236; 43251; 82947; 83986; 88305; 88313; 88342; J2704

== ENCOUNTER → 2024-11-24 08:29 | Outpatient (BNV) | payer OTHER, SELFPAY | PROVIDERS: PCP Nurse Practitioner Primary Care; Visit Provider Internal Medicine Gastroenterology | DX: K29.70 Gastritis, unspecified, without bleeding (principal); K31.7 Polyp of stomach and duodenum | CPT/HCPCS: 43236; 43251 ==

== ENCOUNTER → 2024-11-29 13:04 | Outpatient (BNV) | payer OTHER, SELFPAY | PROVIDERS: PCP Nurse Practitioner Primary Care; Visit Provider Internal Medicine Medical Oncology | DX: D3A.010 Benign carcinoid tumor of the duodenum (principal) | CPT/HCPCS: 99204 ==

== ENCOUNTER 2024-12-13 11:38 | Outpatient (REF) | payer OTHER, SELFPAY ==
--- NOTE | ~2024-12-13 | CT_ITS ---
EXAMINATION: CT ABDOMEN PELVIS WITH IV CONTRAST HISTORY: L upper and lower quad pain, diarrhea, GERD COMPARISON: Comparison is made with the prior examination dated 08/26/2024. TECHNIQUE: CT scan of the abdomen and pelvis was performed following administration of 85 mL Omnipaque 350 using standard departmental protocol. Coronal and sagittal reformatted images were generated and reviewed. The patient received oral contrast material. This CT exam was performed with one or more of the following dose reduction techniques: automated exposure control, adjustment of the mA and/or kV according to patient size, use of iterative reconstruction technique. DLP: 645 mGy-cm FINDINGS: LOWER CHEST: The visualized lung bases are clear. There is no pleural effusion. CARDIOVASCULATURE: The heart is normal in size. There is no pericardial effusion. LIVER: The liver is normal in size and contour. No liver mass is identified. The hepatic and portal veins are patent. GALLBLADDER / BILE DUCTS: The gallbladder is surgically absent. There is no intra or extrahepatic biliary ductal dilatation. SPLEEN: The spleen is normal in size. No focal splenic lesion is identified. PANCREAS: The pancreas is unremarkable in appearance. ADRENAL GLANDS: Within normal limits. KIDNEYS/RETROPERITONEUM: No renal calculi are identified. There is no hydronephrosis. There is a 1.9 cm cyst at the upper pole of the left kidney and a 3.8 cm cyst at the lower pole. LYMPH NODES: No abdominal or pelvic lymphadenopathy. VASCULATURE: The abdominal aorta is normal in caliber. An IVC filter is again seen in place. MESENTERY/PERITONEUM: No free fluid. No masses. There is no free intraperitoneal gas. STOMACH: The stomach is unremarkable. SMALL BOWEL: The small bowel is normal in caliber. COLON: There is diverticulosis of the descending and sigmoid colon, without evidence of diverticulitis. APPENDIX: Normal. URINARY BLADDER/PELVIC ORGANS: The urinary bladder is unremarkable. The patient is status post hysterectomy. BONES / SOFT TISSUES: No suspicious bony or soft tissue abnormalities. CT/CT abdomen pelvis w IV con IMPRESSION: Diverticulosis of the descending and sigmoid colon, without evidence of diverticulitis. Electronically signed by: Cj Gomez MD 12/13/2024 02:34 PM EDT
--- OUTSIDE RECORDS SUMMARY | 2024-12-13 13:05 | XMS_ITS | Data Portability ---
Author Organization [facility], Main Office Address [address], [address] [place] [address] Care Team Providers Care Teletypist Name Role Phone SANDRITA BEARDEN 1ST FLOOR OTHER [place] [employer] Primary Care Provider [phone] Assessment Encounter Date Assessment Date Assessment LastModified by Organization Details LastModified Time 08/04/2018 08/04/2018 Hgb 11.5, Hct 34.7 in hospital [facility] Not available 08/04/2018 08:51:23 Plan of [...] By Organization Details Last Modified Time 08/06/2018 [id number] Also, for PCP to evaluate whether or [...] knee joint Active 2018 SARAH MATIAS [address] [facility] [facility], [address], [place], [address], [facility] [employer] 9 08:19:48 Asthma 750659619 Active 2018 SARAH MATIAS [address] , [address], [place], [address], [facility] [employer] 9 08:23:00 Gastroesophage al reflux disease without esophagitis 887467393 Active 2018 SARAH MATIAS [address], [address], [place], [address], [facility] 9 08:23:06 Essential hypertension 12935590 Active 2018 SARAH MATIAS [address], [address], [place], [address], [facility] 9 08:23:16 Hypothyroidism 30937848 Active 2018 SARAH MATIAS [address] , [address], [place], [address], [facility] 9 08:23:25 Type 2 diabetes mellitus 97158532 Active 2018 SARAH MATIAS [address] , [address], [place], [address], [facility] 9 08:23:34 Anxiety 56073522 Active 2018 SARAH MATIAS [address] [facility], [address], [place], [address], [facility] 9 08:24:11 Hormone therapy Active 2018 SARAH MATIAS [address] , [address], [place], [address], [facility] 9 08:24:30 Chronic constipation 051925737 Active 2018 SARAH MATIAS [address] , [address], [place], [address], [facility] 9 08:25:50 Acute urinary tract infection 687006687 Active 2018 SARAH MATIAS [address], [address], [place], [address], [facility] 9 08:26:59 Hypercholester olemia 09610275 Active 2018 SARAH MATIAS [address], [address], [place], [address], [facility] 9 08:28:38 Depressive disorder 44421740 Active 2018 HILARIA SARAH SOMMER [address] [facility], [address], [place], [address], [facility] [employer] 9 08:42:14 Falls 924590933 Active 2018 HILARIASARAH BREWER [address], [address], [place], [address], [facility] 9 09:41:31 Gastroesophage al reflux disease 956320431 Active 2018 Eliza Garza MD [address], [address], [place], [address], [facility] 9 11:39:19 Problem Notes None recorded. Medical [...] 96 % 156/70 mm[Hg] SARAH MATIAS [address], [address], [place], [address], [facility] 9 08:17:26 Date Recorded Systolic And Diastolic Provider Name and Address Organization Details Last Updated DateTime 08/06/2018 156/70 mm[Hg] Eliza Garza MD [address], [address], [place], [address], [facility] 08/06/2018 11:18:46 Social History Question Answer Notes LastModified by Organizat ion Details LastModified Time Tobacco Smoking Status Never Smoker Not Available [facility] 01/10/2020 03:13:23 Do You Have An Advance Directive? Yes FULL CODE- Use Dialysis, Nutrtition And Hydration [id number] Information not available 01/10/2020 How Much Tobacco Do You Chew? None [id number] Information not available 01/10/2020 Do You Have A Medical Power Of Placement Secretary? Yes HCP On File [id number] Information not available 01/10/2020 What Was The Date Of Your Most Recent Tobacco Screening? 08/04/2018 [id number] Information not available 01/10/2020 Sex: Unknown Functional Status Question Answer Note LastModified by Organization D etails LastModified Time What is your level of alcohol consumption? None [id number] Information not available 01/10/2020 Mental Status None recorded. Family History Nothing Reported. Medical History No medical history recorded. Gynecological HistoryNo gynecological history recorded. Obstetrics History GPAL:G 0 P 0 0 0 0 Immunizations Vaccine Type Date Status Note Provider Nam e and Address Organization Details Recorded Time Hep B, unspecified formulation 7 completed Danna Terrence [facility] 07/21/2023 15:47:49 Hep B, unspecified formulation 8 completed Danna Terrence [facility] 07/21/2023 15:47:57 Tdap 7 completed Danna Terrence [facility] 07/21/2023 15:48:12 Td(adult) unspecified formulation 7 completed [facility] 07/21/2023 15:48:25 Pneumococcal conjugate PCV20, polysaccharide SHR210 conjugate, adjuvant, PF 3 completed Danna Terrence [facility] 07/21/2023 15:53:08 influenza, unspecified formulation 3 completed Danna Terrence [facility] 07/21/2023 16:00:43 influenza, unspecified formulation 3 completed Danna Terrence [facility] 07/21/2023 16:01:16 Hep A, unspecified formulation 7 completed Danna Terrence [facility] 07/21/2023 16:08:25 Hep A, unspecified formulation 8 completed Danna Terrence [facility] 07/21/2023 16:08:36 SARS-COV-2 (COVID-19) vaccine, UNSPECIFIED 1 completed Danna Ocampo [facility] 07/21/2023 16:11:09 SARS-COV-2 (COVID-19) vaccine, UNSPECIFIED 1 completed Danna [facility] 07/21/2023 16:11:19 SARS-COV-2 (COVID-19) vaccine, UNSPECIFIED 2 completed [facility] 07/21/2023 16:11:32 SARS-COV-2 (COVID-19) vaccine, UNSPECIFIED 3 completed [facility] 07/21/2023 16:12:34 zoster, unspecified formulation 7 completed [facility] 07/21/2023 16:12:52 Past Encounters Encounter ID Performer Location Encounter Start Date Encounter Closed Date Diagnosis/Indication Diagnosis SNOMED-CT Code Diagnosis ICD10 Code Diagnosis IMO Codes Diagnosis Note [id number] SARAH MATIAS [address] [address] 08/04/2018 08:13:08 08/06/2018 15:43:41 Replacement of total knee joint 499524848 Z96.651 PT/OT eval and treat for gait training and strengthen ingROM 0-120WBATl imit stair climbingno showersuse a walkerkeep aquacel dressing clean and intactoxyc odone 10 mg q 4 hrs prnultram 50 mg q 6 hrs prntylenol 650 mg q 6 hrs scheduledA SA 325 mg bid x 15 dayspost op appt with ortho on 08/11/18 Acute urin gael tract infection 507483928 N30.00 keflex 500 mg bid x 5 daysmonito r for resolution Asthma 455475989 J45.99 8 albuterol hfa 1-2 puffs q 4 hrs prnqvar 40 mcg 2 puffs bidmonitor for respirator y symptoms Gastroesop hageal reflux disease without esophagitis 385075217 K21.9 dexlansopr azole 60 mg qdmonitor for symptoms Type 2 radha betes mellitus 78328016 E11.9 trulicity 1.5 mg q weekglybur lima 1.25 mg qdlantus 28 units q pmmetformi n er 500 mg q am and 1000 mg q pmmonitor for s/s of hypo/hyper glycemia Essential hypertension 10373639 I10 lasix 20 mg qdHCTZ 50 mg qdlisinopr il 40 mg qdmetoprol ol succinate 200 mg qdverapami l er 360 mg qdmonitor b/p and pulse Hypothyroidism 01816524 E03.8 levothyrox ine 75 mcg qdmonitor TSH Hormone re placement therapy 476631997 Z79.890 estradiol 1 mg qdmonitor Anxiety 79343556 F41.1 atarax 50 mg q 6 hrs prnativan 1 mg bid prndiscuss ed risk vs benefit of ativan with patientmon itor for anxiety Depressive disorder 3549 9007 F32.89 effexor 75 mg bidtrazodo ne 50 mg q hsdiscusse d risk vs benefit of effexor and trazodone with patientmon itor moodpsych eval and treat prn Chronic constipation 236 434383 K59.09 linaclotid e 72 mg qdmonitor constipati on with opioid use Hypercholesterolemia 136 80020 E78.2 crestor 20 mg q hsmonitor labs [place] 432918713 R29.6 PT/OT eval and treatmonit or for safetyenco urage walker use [id number] [facility] [address] 08/06/2018 11:17:07 08/11/2018 09:54:55 Asthma 164229007 J45.30 Qvar 1 puff bidprovent il HFA 2 puffs q4h prn Chronic constipation 236 688645 K59.09 good bowel regimenLin zess 72 mcg daily Depressive disorder 3547 9007 F32.89 trazodone 50 mg at hsvenlafax ine ER 75 mg dailyfu psych prn Hypothyroidism 65583033 E03.8 levothyrox ine 75 mcg dailyfu as outpatient Acute urin gael tract infection 526069975 N30.00 finish course cephalexin 500 mg bidencoura ge good hydrationf u prn Type 2 radha betes mellitus 74150528 E11.9 metformin ER 1000 mg in evening and ER 500 mg in morninggly buride 1.25 mg dailyLantu s 28U dailyTruli city 1.5mg once a week continue to monitor with PCP when outpatient Essential hypertension 15884360 I10 HCTZ 50 mg dailyfuros emide 20 mg dailymetop rolol XL 200 mg dailyverap armen 360 mg dailylisin opril 40 mg dailyfor PCP to evaluate as outpatient if 2 different diuretics are needed - may be able to d/c either HCTZ or furosemide History of total knee arthroplasty 4126313283 105 Z96.651 continue PT/OTAPAP prnASA 325 mg bidoxycodo ne 10 mg q4h prntramado l 50 mg q8h prn Anxiety 79007625 F41.1 lorazepam 1 mg bid prnfu PCP Gastroesop hageal reflux disease 792959079 K21.9 Dexilant 60 mg dailyfu as outpatient Health Concerns Section Related Observation LastModified by Organization Detai ls LastModified Time None Recorded Concern Status LastModified by Organization Details LastModified Time None Recorded Advance Directives Directive Y: FULL CODE- use dialysis, nutrtition and hydration Payers Insurance Date Sequence Insurance Name Policy Number Policy Cramer Covered Member ID Cramer Member ID Guarantor Name 08/06/2018 2 [place] Lois Dalton [id number] Lois Dalton 07/21/2023 1 [facility] TO [facility] - [facility]UAL ELIGIBLE (MEDICARE REPLACEMENT/AD VANTAGE - HMO) Lois Dalton [id number] Lois Dalton 07/21/2023 1 [facility] AFTER 2022 - MEDICARE ADVANTAGE [place] (MEDICARE REPLACEMENT/AD VANTAGE - PPO) Lois Dalton [id number] Lois Dalton Notes Date Note Type Note Provider Name and Address Organization Details Recorded Time 9 text/html A 63 year old female being seen for a initial intake note. Patient had an elective right knee replacement at [facility] on 07/26/18. She went home with vna despite attempts to get her to go to rehab. She attempted to get up out of her chair and walker was not locked causing her to fall. She then was able to ambulate for several days then ran out of pain medication. She went to [facility] er to get pain under control. X-ray and ultrasound were negative. While in the hospital she complained of burning on urination and frequency. A urine sample was sent which was positive for a UTI. She was sent here for some short term rehab. Medical history of constipation, anxiety/depression, HTN, DM, GERD, asthma, hypercholesterolemia and hormone replacement. SARAH MATIAS [address], [address], [place], [address], [facility] 08/04/2018 09:42:29 9 text/html ROS as noted in the HPI 63 year old female admitted to [facility] 08/03/18 for rehab after TKR 07/26/18. Patient had been discharged home 07/29/18 with VNA services after TKR and fell when attempted to get up out of chair when walker was not locked causing a fall. She was able to ambulate for several days then ran out of pain medication. She went to [facility] ER to get pain under control. X-ray and ultrasound were negative. While in the hospital she complained of burning on urination and frequency. A urine sample was sent which was positive for a UTI. She was sent here for some short term rehab. Medical history of constipation, anxiety/depression, HTN, DM, GERD, asthma, hypercholesterolemia and hormone replacement. Patient has done with PT/OT here at [facility] and is now ready for discharge with VNA services at home. Advance directives: full code Eliza Garza MD [address] [place] [address], [address], [place], [address], [facility] 08/06/2018 11:52:07 OBGyn Episode No OBEpisode recorded.
--- OUTSIDE RECORDS SUMMARY | 2024-12-13 13:05 | XMS_ITS | Encounter Summary ---
Author Organization [employer] Address [address] [facility] 7t [place] [address] Care Team Providers Care Internal Combustion Engineer Name Role Phone Breanna Zamudio Primary Care Provider [phone] Ludmila Walker MD Unavailable [phone] Reason for Visit * Reason Comments Med Refill Encounter Details Date Type Department Care Team ([facility] st Contact Info) Description 12/05/2024 Refill [facility] MEDICINE [address] [place], [place] [phone] Breanna Zamudio ANP [address] [place], [place] [phone] Long-term current use of opiate analgesic; Osteoarthritis [...] Description 01/23/2025 2:00 PM EST Telemedicine [facility] 505 [place] [address] Sis Coppola, RN 505 [place] [address] documented as of this encounter Visit Diagnoses Diagnosis Long-term current use of opiate analgesic Encounter for long-term (current) use of other medications Osteoarthritis of multiple joints, unspecified osteoarthritis type Arthralgia, unspecified joint documented in this encounter Care Teams Internal Combustion Engineer Relationship Specialty Start Date End Date Breanna Zamudio ANP [address] [place] [address] PCP - General Family Medicine 10/03/19 Ludmila Walker MD [address] [place] [address] 3rd [place] [address] Gastroenterology 11/22/24 [facility] 07/31/23 documented as of this encounter
--- OUTSIDE RECORDS SUMMARY | 2024-12-13 13:05 | XMS_ITS | Encounter Summary ---
Author Organization [employer] Address [address] [address] [facility] [address] 7t [place] [address] Care Team Providers Care Hospitalist Program Director Name Role Phone Breanna Zamduio Primary Care Provider [phone] Ludmila Walker MD Unavailable [phone] Reason for Visit * Reason Comments Med Refill Encounter Details Date Type Department Care Team ([facility] st Contact Info) Description 08/24/2023 Refill [facility] MEDICINE 230 [place], [place] [phone] Breanna Zamudio ANP [address] [place], [place] [phone] Ischemic colitis ([facility]/HCC) Social History Tobacco Use Types Packs/Day Years [...] Upcoming Encounters Date Type Department Care Team ([facility] st Contact Info) Description 01/23/2025 2:00 PM EST Telemedicine [facility] MED [facility] PEDS [address] [place] [address] Sis Coppola, AIDA 505 [place] [address] documented as of this encounter Visit Diagnoses Diagnosis Ischemic colitis (CMS/HCC) documented in this encounter Care Teams Hospitalist Program Director Relationship Specialty Start Date End Date Breanna Zamudio ANP [address] [place] [address] PCP - General Family Medicine 10/03/19 Ludmila Walker MD [address] [place] [address] Drive 3rd [place] [address] Gastroenterology 11/22/24 [facility] 07/31/23 documented as of this encounter
--- OUTSIDE RECORDS SUMMARY | 2024-12-13 13:05 | XMS_ITS | Encounter Summary ---
Author Organization [employer] Address [address] 7t [place] [address] Care Team Providers Care Automotive Paint Technician Name Role Phone Breanna Zamudio Primary Care Provider [phone] Ludmila Walker MD Unavailable [phone] Reason for Visit * Reason Comments Med Refill Encounter Details Date Type Department Care Team (Late st Contact Info) Description 10/10/2024 Refill [facility]S [address] [place], [place] [phone] Breanna Zamudio ANP [address] [place] [address] Long-term current use of opiate analgesic; Osteoarthritis [...] [facility] 505 [place] [address] Sis Coppola, AIDA 505 [place] [address] documented as of this encounter Visit Diagnoses Diagnosis Long-term current use of opiate analgesic Encounter for long-term (current) use of other medications Osteoarthritis of multiple joints, unspecified osteoarthritis type Arthralgia, unspecified joint documented in this encounter Care Teams Automotive Paint Technician Relationship Specialty Start Date End Date Breanna Zamudio ANP [address] [place] [address] PCP - General Family Medicine 10/03/19 Ludmila Walker MD [address] [place] [address] 3rd [place] [address] Gastroenterology 11/22/24 [facility] 07/31/23 documented as of this encounter
--- OUTSIDE RECORDS SUMMARY | 2024-12-13 13:05 | XMS_ITS | Encounter Summary ---
Author Organization [employer] Address [address] 7t [place] [address] Care Team Providers Care Deli Worker Name Role Phone Breanna Zamudio Primary Care Provider [phone] Ludmila Walker MD Unavailable [phone] Reason for Visit * Reason Onset Date Comments Appointment Request 10/31/2024 Encounter Details Date Type Department Care Team ([facility] st Contact Info) Description 10/31/2024 Telephone [facility] MEDICINE 230 [place], [place] [phone] Breanna Zamudio ANP 230 [place], [place] [phone] Appointment Request Social History Tobacco Use Types [...] miss appt Temporary phone, contact pt at [phone] documented in this encounter Plan of Treatment Upcoming Encounters Date Type Department Care Team (Late st Contact Info) Description 01/23/2025 2:00 PM EST Telemedicine [facility] MED & PEDS 505 [place] [address] Sis Coppola RN 505 [place] [address] documented as of this encounter Visit Diagnoses Not on filedocumented in this encounter Care Teams Deli Worker Relationship Specialty Start Date End Date Breanna Zamudio ANP [address] [place] [address] PCP - General Family Medicine 10/03/19 Ludmila Walker MD [address] [place] [address] 3rd [place] [address] Gastroenterology 11/22/24 [facility] 07/31/23 documented as of this encounter
--- OUTSIDE RECORDS SUMMARY | 2024-12-13 13:05 | XMS_ITS | Encounter Summary ---
Author Organization [employer] Address [address] [facility] [address] 7t [place] [address] Care Team Providers Care Rn Transition Name Role Phone Breanna Zamudio Primary Care Provider [phone] Ludmila Walker MD Unavailable [phone] Encounter Details Date Type Department Care Team (Late st Contact Info) Description 08/06/2023 Telephone [facility] MEDICINE 230 [place], [place] [phone] Breanna Zamudio ANP 230 [place], [place] [phone] Social History Tobacco Use Types Packs/Day Years [...] the past 12 months, has t he [employer], gas, oil or water company threatened to [...] 01/23/2025 2:00 PM EST Telemedicine [facility] MED & PEDS 505 [place] [address] Sis Coppola, AIDA 505 [place] [address] documented as of this encounter Visit Diagnoses Not on filedocumented in this encounter Care Teams Rn Transition Relationship Specialty Start Date End Date Breanna Zamudio ANP [address] [place] [address] PCP - General Family Medicine 10/03/19 Ludmila Walker MD [address] [place] [address] 3rd [place] [address] Gastroenterology 11/22/24 [facility] 07/31/23 documented as of this encounter
--- OUTSIDE RECORDS SUMMARY | 2024-12-13 13:05 | XMS_ITS | Encounter Summary ---
Author Organization [employer] Address [address] 7t [place] [address] Care Team Providers Care Time Clock Mechanic Name Role Phone Breanna aZmudio Primary Care Provider [phone] Ludmila Walker MD Unavailable [phone] Reason for Visit * Reason Onset Date Comments Med Refill 03/15/2024 Encounter Details Date Type Department Care Team ([facility] st Contact Info) Description 03/15/[address] [facility] MEDICINE 230 [place], [place] [phone] Breanna Zamudio ANP 230 [place], [place] [phone] Med Refill Social History Tobacco Use Types [...] immediate release tablet To be sent to: [facility] documented in this encounter Plan of Treatment Upcoming Encounters Date Type Department Care Team (Late st Contact Info) Description 01/23/2025 2:[address] [facility] 505 [place] [address] Sis Coppola RN 505 [place] [address] documented as of this encounter Visit Diagnoses Not on filedocumented in this encounter Care Teams Time Clock Mechanic Relationship Specialty Start Date End Date Breanna Zamudio ANP [address] [place] [address] PCP - General Family Medicine 10/03/19 Ludmila Walker MD [address] [place] [address] 3rd [place] [address] Gastroenterology 11/22/24 [facility] 07/31/23 documented as of this encounter
--- OUTSIDE RECORDS SUMMARY | 2024-12-13 13:05 | XMS_ITS | Encounter Summary ---
Author Organization [employer] Address [address] 7t [place] [address] Care Team Providers Care Academic Program Specialist Name Role Phone Breanna Zamudio Primary Care Provider [phone] Ludmila Walker MD Unavailable [phone] Reason for Visit * Reason Onset Date Comments Appointment Request 06/13/2024 Encounter Details Date Type Department Care Team ([facility] st Contact Info) Description 06/13/2024 Telephone [facility] MEDICINE 230 [place], [place] [phone] Breanna Zamudio ANP 230 [place], [place] [phone] Appointment Request Social History Tobacco Use Types [...] 2:32 PM EDT Tc from pt canceled [employer] appt due to being on vacation in [place] and would like to r/s after 07/08/24. documented in this encounter Plan of Treatment Upcoming Encounters Date Type Department Care Team (Late st Contact Info) Description 01/23/2025 2:00 PM EST Telemedicine [facility] MED & PEDS 505 [place] [address] Sis Coppola RN 505 [place] [address] documented as of this encounter Visit Diagnoses Not on filedocumented in this encounter Care Teams Academic Program Specialist Relationship Specialty Start Date End Date Breanna Zamudio ANP [address] [place] [address] PCP - General Family Medicine 10/03/19 Ludmila Walker MD [address] 3rd [place] [address] Gastroenterology 11/22/24 [facility] 07/31/23 documented as of this encounter
--- OUTSIDE RECORDS SUMMARY | 2024-12-13 13:05 | XMS_ITS | Encounter Summary ---
Author Organization [employer] Address [address] 7[address] [place] [address] Care Team Providers Care Art Professor Name Role Phone Breanna Zamudio Primary Care Provider [phone] Ludmila Walker MD Unavailable [phone] Reason for Visit * Reason Onset Date Comments Medication Question 08/11/2024 Encounter Details Date Type Department Care Team ([facility] st Contact Info) Description 08/11/2024 Telephone [facility] MEDICINE 230 [place], [place] [phone] Breanna Zamudio ANP 230 [place], [place] [phone] Medication Question Social History Tobacco Use Types [...] month. States will be leaving out of [place] on Thursday and needs all her medications. Pt will be out for more than a month. Medication: OxyCODONE (Roxicodone) 10 MG immediate release tablet [phone] Patient [phone] Pt spouse documented in this encounter Plan of Treatment Upcoming Encounters Date Type Department Care Team (Late st Contact Info) Description 01/23/2025 2:00 PM EST Telemedicine [facility] CHC MED & PEDS 505 [place] [address] Sis Coppola, AIDA 505 [place] [address] documented as of this encounter Visit Diagnoses Not on filedocumented in this encounter Care Teams Art Professor Relationship Specialty Start Date End Date Breanna Zamudio ANP [address] [place] [address] PCP - General Family Medicine 10/03/19 Ludmila Walker MD [address] [place] [address] Drive 3rd [place] [address] Gastroenterology 11/22/24 [facility] 07/31/23 documented as of this encounter
--- OUTSIDE RECORDS SUMMARY | 2024-12-13 13:05 | XMS_ITS | Encounter Summary ---
Author Organization [employer] Address [address] 7t [place] [address] Care Team Providers Care Hot Stick Worker Name Role Phone Breanna Zamudio Primary Care Provider [phone] Ludmila Walker MD Unavailable [phone] Reason for Visit * Reason Comments Med Refill Encounter Details Date Type Department Care Team ([facility] st Contact Info) Description 08/24/2023 Refill [facility] MEDICINE 230 [place], [place] [phone] Breanna Zamudio ANP 230 [place], [place] [phone] Ischemic colitis ([facility]/HCC) Social History Tobacco Use Types Packs/Day Years [...] Upcoming Encounters Date Type Department Care Team ([facility] st Contact Info) Description 01/23/2025 2:00 PM EST Telemedicine [facility] CHC MED & PEDS 505 [place] [address] Sis Coppola, AIDA 505 [place] [address] documented as of this encounter Visit Diagnoses Diagnosis Ischemic colitis (CMS/HCC) documented in this encounter Care Teams Hot Stick Worker Relationship Specialty Start Date End Date Breanna Zamudio ANP [address] [place] [address] PCP - General Family Medicine 10/03/19 Ludmila Walker MD [address] [place] [address] Drive 3rd [place] [address] Gastroenterology 11/22/24 [facility] 07/31/23 documented as of this encounter
--- OUTSIDE RECORDS SUMMARY | 2024-12-13 13:05 | XMS_ITS | Encounter Summary ---
Author Organization [employer] Address [address] 7t [place] [address] Care Team Providers Care Audio Production Manager Name Role Phone Breanna Zamudio Primary Care Provider [phone] Ludmila Walker MD Unavailable [phone] Reason for Visit * Reason Onset Date Comments Med Refill 11/18/2023 Encounter Details Date Type Department Care Team (Late st Contact Info) Description 11/18/2023 Telephone [facility] MEDICINE 230 [place], [place] [phone] Breanna Zamudio ANP 230 [place], [place] [phone] Med Refill Social History Tobacco Use Types [...] immediate release tablet To be sent to: [facility] [place], [place] - [address] [place] [address] documented in this encounter Plan of Treatment Upcoming Encounters Date Type Department Care Team ([facility] st Contact Info) Description 01/23/2025 2:00 PM EST Telemedicine [facility] MED & PEDS 505 [place] [address] Sis Coppola RN 505 [place] [address] documented as of this encounter Visit Diagnoses Not on filedocumented in this encounter Care Teams Audio Production Manager Relationship Specialty Start Date End Date Breanna Zamudio ANP 230 [place] [address] PCP - General Family Medicine 10/03/19 Ludmila Walker MD [address] [place] [address] 3rd [place] [address] Gastroenterology 11/22/24 [facility] 07/31/23 documented as of this encounter
--- OUTSIDE RECORDS SUMMARY | 2024-12-13 13:05 | XMS_ITS | Encounter Summary ---
Author Organization [employer] Address [address] 7t [place] [address] Care Team Providers Care Rag Sorter And Cutter Name Role Phone Breanna Zamudio Primary Care Provider [phone] Ludmila Walker MD Unavailable [phone] Reason for Visit * Reason Onset Date Comments Med Refill 12/05/2024 Encounter Details Date Type Department Care Team (Late st Contact Info) Description 12/05/2024 Telephone [facility] MEDICINE 230 [place], [place] [phone] Breanna Zamudio ANP 230 [place], [place] [phone] Med Refill Social History Tobacco Use Types [...] encounter Miscellaneous Notes * Telephone Encounter - Stanford Lau - 12/05/2024 9:49 AM EDT TC from pt requesting medication refill. Medications needing refill : oxyCODONE (Roxicodone) 10 MG immediate release tablet To be sent to: [facility] documented in this encounter Plan of Treatment Upcoming Encounters Date Type Department Care Team (Late st Contact Info) Description 01/23/2025 2:00 PM EST Telemedicine [facility] MED & PEDS 505 [place] [address] Sis Coppola RN 505 [place] [address] documented as of this encounter Visit Diagnoses Not on filedocumented in this encounter Care Teams Rag Sorter And Cutter Relationship Specialty Start Date End Date Breanna Zamudio ANP [address] [place] [address] PCP - General Family Medicine 10/03/19 Ludmila Walker MD [address] 3rd [place] [address] Gastroenterology 11/22/24 [facility] 07/31/23 documented as of this encounter
--- OUTSIDE RECORDS SUMMARY | 2024-12-13 13:05 | XMS_ITS | Encounter Summary ---
Author Organization [employer] Address [address] 7[address] [place] [address] Care Team Providers Care Mangle Feeder Name Role Phone Breanna Zamudio Primary Care Provider [phone] Ludmila Walker MD Unavailable Reason for Visit * Reason Onset Date Comments FYI 08/31/2023 Encounter Details Date Type Department Care Team ([facility] st Contact Info) Description 08/31/2023 Telephone [facility] MEDICINE 230 [place], [place] [phone] Breanna Zamudio ANP 230 [place], [place] [phone] FYI Social History Tobacco Use Types Packs/Day [...] - 08/31/2023 2:36 PM EDT Tc from [facility] (Physical Therapist) with [facility] calling to inform pt is getting discharge as of today from PT services. Any questions [phone] documented in this encounter Plan of Treatment Upcoming Encounters Date Type Department Care Team (Late st Contact Info) Description 01/23/2025 2:00 PM EST Telemedicine [facility] CHC MED & PEDS 505 [place] [address] Sis Coppola, RN 505 [place] [address] documented as of this encounter Visit Diagnoses Not on filedocumented in this encounter Care Teams Mangle Feeder Relationship Specialty Start Date End Date Breanna Zamudio ANP [address] [place] [address] PCP - General Family Medicine 10/03/19 Ludmila Walker MD [address] 3rd [place] [address] Gastroenterology 11/22/24 [facility] 07/31/23 documented as of this encounter
--- OUTSIDE RECORDS SUMMARY | 2024-12-13 13:05 | XMS_ITS | Encounter Summary ---
Author Organization [employer] Address [address] [facility] 7t [place] [address] Care Team Providers Care Software Test Manager Name Role Phone Breanna Zamudio Primary Care Provider [phone] Ludmila Walker MD Unavailable [phone] Reason for Visit * Reason Onset [...] her to return my call at ext [phone]. Encounter Details Date Type Department Care Team (Late st Contact Info) Description 05/06/2024 Refill [facility] CHC MED & PEDS [address] [place], [place] [phone] Breanna Zamudio ANP 230 [place], [place] [phone] Ischemic colitis (CMS/HCC) Social History Tobacco Use [...] her to return my call at ext [phone]. * Telephone Encounter - Prisca Ramos [place] [...] Info) Description 01/23/2025 2:00 PM EST Telemedicine [facility] MED & PEDS 505 [place] [address] Sis Coppola, RN 505 [place] [address] documented as of this encounter Visit Diagnoses Diagnosis Ischemic colitis (CMS/HCC) documented in this encounter Care Teams Software Test Manager Relationship Specialty Start Date End Date Breanna Zamudio ANP [address] [place] [address] PCP - General Family Medicine 10/03/19 Ludmila Walker MD [address] [place] [address] Drive 3rd [place] [address] Gastroenterology 11/22/24 [facility] 07/31/23 documented as of this encounter
--- OUTSIDE RECORDS SUMMARY | 2024-12-13 13:05 | XMS_ITS | Encounter Summary ---
Author Organization [employer] Address [address] 7t [place] [address] Care Team Providers Care Clinical Support Nurse Name Role Phone Breanna Zamudio Primary Care Provider [phone] Ludmila Walker MD Unavailable [phone] Reason for Visit * Reason Onset Date Comments Med Refill 10/27/2023 Encounter Details Date Type Department Care Team (Late st Contact Info) Description 10/27/2023 Telephone [facility] MEDICINE 230 [place], [place] [phone] Breanna Zamudio ANP 230 [place], [place] [phone] Med Refill Social History Tobacco Use Types [...] tablet To be sent to: [facility] documented in this encounter Plan of Treatment Upcoming Encounters Date Type Department Care Team (Late st Contact Info) Description 01/23/2025 2:00 PM EST Telemedicine [facility] CHC MED & PEDS 505 [place] [address] Sis Coppola RN 505 [place] [address] documented as of this encounter Visit Diagnoses Not on filedocumented in this encounter Care Teams Clinical Support Nurse Relationship Specialty Start Date End Date Breanna Zamudio ANP [address] [place] [address] PCP - General Family Medicine 10/03/19 Ludmila Walker MD [address] 3rd [place] [address] Gastroenterology 11/22/24 [facility] 07/31/23 documented as of this encounter
--- OUTSIDE RECORDS SUMMARY | 2024-12-13 13:05 | XMS_ITS | Encounter Summary ---
Author Organization [employer] Address [address] [facility] [address] 7t [place] [address] Care Team Providers Care Powder Coater Name Role Phone Breanna Zamudio Primary Care Provider [phone] Ludmila Walker MD Unavailable [phone] Encounter Details Date Type Department Care Team (Late st Contact Info) Description 08/31/[address] [facility] MEDICINE 230 [place], [place] [phone] Breanna Zamudio ANP 230 [place], [place] [phone] Social History Tobacco Use Types Packs/Day Years [...] 2:00 PM EST Telemedicine [facility] MED & PEDS 505 [place] [address] Sis Coppola, AIDA 505 [place] [address] documented as of this encounter Visit Diagnoses Not on filedocumented in this encounter Care Teams Powder Coater Relationship Specialty Start Date End Date Breanna Zamudio ANP [address] [place] [address] PCP - General Family Medicine 10/03/19 Ludmila Walker MD [address] 3rd [place] [address] Gastroenterology 11/22/24 [facility] 07/31/23 documented as of this encounter
--- OUTSIDE RECORDS SUMMARY | 2024-12-13 13:06 | XMS_ITS | Encounter Summary ---
Author Organization [employer] Address [address] [place] [address] 7t [place] [address] Care Team Providers Care Research Manufacturing Operator Name Role Phone Breanna Zamudio Primary Care Provider [phone] Ludmila Walker MD Unavailable [phone] Reason for Visit * Reason Comments Med Refill Encounter Details Date Type Department Care Team (Late st Contact Info) Description 11/21/2022 Refill [facility] MEDICINE 230 [place] [address] Breanna Zamudio ANP 230 [place] [address] Pain in unspecified joint Social History Tobacco [...] Info) Description 01/23/2025 2:00 PM EST Telemedicine [facility] CHC MED & PEDS 505 [place] [address] Sis Coppola, RN 505 [place], [place] [phone] documented as of this encounter Visit Diagnoses Diagnosis Pain in unspecified joint documented in this encounter Care Teams Research Manufacturing Operator Relationship Specialty Start Date End Date Breanna Zamudio ANP [address] [place] [address] PCP - General Family Medicine 10/03/19 Ludmila Walker MD [address] [place] [address] 3rd [place] [address] Gastroenterology 11/22/24 [facility] 07/31/23 documented as of this encounter
--- OUTSIDE RECORDS SUMMARY | 2024-12-13 13:06 | XMS_ITS | Clinical Summary ---
Author Organization [employer] Address [facility] [address] [place] [address] Care Team Providers Care Livestock Breeder Name Role Phone Robb [place] SILVA Primary Care Provider [phone] Ludmila Walker MD Unavailable [phone] Allergies No known active allergies Medications Ventolin HFA 108 (90 Base) MCG/ACT inhaler Inhale 1 puff every 4 (four) hours if needed for wheezing. Active Blood Glucose Monitoring Suppl ([employer] Verio Flex System) w/Device kit TEST BLOOD [...] 34 UNITS SUBCUTANEOUSLY EVERY EVENING Active Lancets ([employer] Delica Plus Micrzd79T) misc TEST BLOOD SUGAR TWICE DAILY Active [...] ONCE A WEEK 024 Active Continuous Glucose Shoe Associate (FreeStyle Manuelito 2 Epes) device Use as directed 024 Active Continuous Glucose Sensor (FreeStyle Manuelito 2 Sensor) [facility] Every 2 weeks to monitor BG 024 Active Cyanocobalamin (Vitamin B-12) 1000 MCG sublingual tablet DISSOLVE 1 TABLET BY MOUTH DAILY 024 Active Eliquis 5 MG tabletIndication s:Acute deep vein thrombosis (DVT) of proximal vein of lower extremity, unspecified laterality (HCC),Multiple subsegmental pulmonary emboli without acute cor pulmonale (CMS/HCC) (HCC) Take 1 tablet (5 mg) by mouth [...] Hyperlipidemia associated with type 2 diabetes mellitus (HCC) Use as instructed 100 each 5 024 Active Multiple Vitamins-Iron (Tab-A-Saima/Iron /Beta Carotene) tablet TAKE 1 TABLET BY MOUTH EVERY DAY WITH FOOD 90 tablet 3 024 Active metoprolol succinate XL (Toprol-XL) 200 MG [...] BEFORE BREAKFAST 90 tablet 1 025 Active TRUEplus Glucose 4 g chewable tabletIndication s:Hyperlipidemia associated with type 2 diabetes mellitus (HCC) CHEW 4 TABLETS NEEDED FOR low blood sugar (LESS THAN 70mg/dL) 50 tablet 12 025 Active traZODone (Desyrel) 150 MG tabletIndication s:Insomnia disorder with non-sleep disorder mental comorbidity TAKE 2 TABLETS BY MOUTH EVERY DAY AT BEDTIME 60 tablet 5 025 Active Alcohol Swabs (SM Alcohol Prep) 70 % pads USE TWICE DAILY DIRECTED 100 each 11 025 Active oxyCODONE (Roxicodone) 10 MG immediate release tabletIndication s:Long-term current use of opiate analgesic,Osteoa rthritis of multiple joints, unspecified osteoarthritis type,Arthralgia, unspecified joint Take 1 tablet (10 mg) by mouth every 6 (six) hours if needed for severe pain. Do not start before December 08, 2024. 120 tablet 025 2024 Active Alcohol Swabs (SM Alcohol Prep) 70 % pads USE TWICE DAILY DIRECTED 022 2024 Discontinued(R eorder (will not trigger notification to Pharmacy)) traZODone (Desyrel) 150 MG tabletIndication s:Insomnia disorder with non-sleep disorder mental comorbidity TAKE 2 TABLETS BY MOUTH EVERY DAY AT BEDTIME 60 tablet 5 025 2024 Discontinued oxyCODONE (Roxicodone) 10 MG immediate release tabletIndication s:Long-term current use of opiate analgesic,Osteoa rthritis of multiple joints, unspecified osteoarthritis type,Arthralgia, unspecified joint Take 1 tablet (10 mg) by mouth every 6 (six) hours if needed for severe pain. Do not start before November 09, 2024. 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 Walker, [facility] Tumor site: Gastric body Tumor size: 3 [...] N/A Number examined: 0 Number involved: 0 Long-term current use of opiate analgesic 2024 [...] edema. 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, encouraged tight [...] Diagnosed Date Resolved Date Pre-op examination 05/24/2023 Assessment & Plan (05/26/2023 [...] AM EST): Rx Paxlovid x 5 days, Tryon interactions module checked, she will hold Crestor [...] Encounters Date Type Department Care Team Description 12/05/2024 Refill [facility] [address] [place] [address] [place] Cifuentes ANP Long-term current use of opiate analgesic; Osteoarthritis of multiple joints, unspecified osteoarthritis type; Arthralgia, unspecified joint 12/05/2024 Refill [facility] [address] [place] [address] Sis Coppola RN Long-term current use of opiate analgesic; Osteoarthritis of multiple joints, unspecified osteoarthritis type; Arthralgia, unspecified joint 12/05/2024 Telephone [facility] [address] [place] [address] [place] Cifuentes ANP Med Refill 11/30/2024 Refill [facility] [address] [place] [address] [place] Cifuentes ANP 11/27/2024 Refill [facility] [address] [place] [address] [place] Cifuentes ANP Insomnia disorder with non-sleep disorder mental comorbidity 11/24/2024 Orders Only GENERIC EXTERNAL DATA DEPARTMENT Provider, Generic External Data 11/22/2024 Results Follow-Up [facility] [address] [place] [address] [place] Cifuentes ANP Glucose, Whole Blood, Hematoxylin and Eosin Stain 11/16/2024 Orders Only GENERIC EXTERNAL DATA DEPARTMENT Provider, Generic External Data 11/09/2024 Refill [facility] [address] [place] [address] [place] Cifuentes ANP Hyperlipidemia associated with type 2 diabetes mellitus ([facility]) 11/03/2024 Refill [facility] [address] [place] [address] [place] Cifuentes ANP Long-term current use of opiate analgesic; Osteoarthritis of multiple joints, unspecified osteoarthritis type; Arthralgia, unspecified joint 11/01/2024 Orders Only GENERIC EXTERNAL DATA DEPARTMENT Provider, Generic External Data 10/31/2024 1:30 PM EDT Telemedicine [facility] [address] [place] [address] Sis Coppola RN Long-term current use of opiate analgesic 10/31/2024 Telephone [facility] [address] [place] [address] [place] Cifuentes ANP Appointment Request 10/31/2024 Travel 10/31/2024 Refill [facility] [address] [place] [address] [place] Cifuentes ANP Hypothyroidism, unspecified type 10/28/2024 Refill [facility] [address] [place] [address] [place] Cifuentes ANP Essential hypertension 10/10/2024 Refill [facility] [address] [place] [address] [place] Cifuentes ANP Long-term current use of opiate analgesic; Osteoarthritis of multiple joints, unspecified osteoarthritis type; Arthralgia, unspecified joint 10/10/2024 Refill [facility] [address] [place] [address] [place] Cifuentes ANP Long-term current use of opiate analgesic; Osteoarthritis of multiple joints, unspecified osteoarthritis type; Arthralgia, unspecified joint 10/01/2024 Refill [facility] [address] [place] [address] [place] Cifuentes ANP COVID-19 from Last 3 Months Immunizations Immunization Administration [...] Info) Description 01/23/2025 2:00 PM EST Telemedicine [facility] [address] [place] [address] Sis Coppola, RN [address] [place] [address] Health Maintenance Due Date Last Done Comments [...] exists Lipid Panel 08/16/2023 08/15/2022, 04/2022, 10/04/2019 Depression Screening 03/19/2024 03/19/2023, 03/19/19 SDOH Screening 03/26/2024 03/26/2023 Diabetes: Hemoglobin A1C [...] Diagnosis Comments HEMATOXYLIN AND EOSIN STAIN Routine 11/24/2024 11:28 AM EDT PH, BODY FLUID Routine 11/24/2024 11:07 AM EDT GLUCOSE, WHOLE BLOOD Routine 11/24/2024 9:36 AM EDT HEMATOXYLIN AND EOSIN STAIN Routine 11/16/2024 12:39 PM EDT GLUCOSE, WHOLE BLOOD Routine 11/16/2024 11:19 AM EDT XR KNEE 3 VIEWS LEFT Routine 11/03/2024 12:39 PM EDT GLUCOSE, WHOLE BLOOD Routine 11/01/2024 12:59 PM EDT HEPATITIS PANEL, GENERAL Routine 09/06/2024 12:36 PM EDT POCT GLYCATED HEMOGLOBIN, TOTAL Routine [...] Maintenance Results * Hematoxylin and Eosin Stain (11/24/2024 11:28 AM EDT) Only the most recent of2 resultswithin the time period is included. 11/24/2024 11:2 8 AM EDT 11/24/2024 12:27 PM EDT [facility] - 11/28/2024 5:19 PM EDT ----- ------- Name: Lois Dalton Age/Sex: 69/F : 1955 Unit#: [id number] Attend Dr: Ludmila Walker MD Re11/24/24 Status: [facility] Location: [facility] Disch: ----- ------- SPEC : [id number] RECD: 11/24/24-1226 STATUS: AUDELIACatherine ROMEROIona NUM: [id number] JARED: 11/24/24-[address] [facility] [address]: Ludmila Walker MD ENTERED: 11/24/24-1236 SP TYPE: Surgical OTHR DR: [place] CIFUENTES NP ORDERED: HE Stain/3, Gross Micro L4, IHC, Special st. 2, H. pylori, AB/PAS Diagnosis Stomach, polypectomy: Mixed hyperplastic and fundic gland polyp with mild chronic, focally active, inflammation and erosion; no Helicobacter organisms identified. Clinical History Stomach polyp resection Microscopic Description Microscopic sections examined. No metaplastic changes are seen, supported by AB/PAS stains; no Helicobacter organisms are seen, supported by H. pylori immunostain. Material Received Stomach polyp resection Gross Description Received in formalin labeled stomach polyp resection are several minute to 0.9 cm in greatest dimension irregular and papular hyperemic and congested, bah-pink and red-maroon tissue fragments aggregating 1.5 x 1.5 x 0.25 cm, submitted in toto in a cassette labeled A. CEDS Special studies ordered and performed: Immunostain for H. pylori; AB/PAS stains IHC S/NG Disclaimer NOTE: Unless otherwise stated, all tissue is formalin-fixed and paraffin-embedded. Some or all of the immunohistochemical tests reported herein may have been developed and their performance characteristics determined by [facility]. They have not been cleared or approved by the U.S. Food and Drug Administration (FDA). However, the FDA has determined that such clearance or approval is not necessary. This laboratory is certified under the Clinical Laboratory Improvement Amendments of 1988 (CLIA) as qualified to perform high complexity clinical laboratory testing. Copies To: Ludmila Walker MD [facility] [address] [place] [id number] CONTINUED ON NEXT PAGE ----- ------- Name: Lois Dalton Age/Sex: 69/F : 1955 Unit#: [id number] Attend Dr: Ludmila Walker MD Re11/24/24 Status: [facility] Location: [facility] Disch: ----- ------- SPEC : [id number] RECD: 11/24/24-1227 STATUS: SHIV STANLEY NUM: [id number] JARED: 11/24/24-[address] [facility] [address]: Ludmila Walker MD ENTERED: 11/24/24-1236 SP TYPE: Surgical OTHR DR: [place] CIFUENTES NP ORDERED: HE Stain/3, Gross Micro L4, IHC, Special st. 2, H. pylori, AB/PAS Copies To: (Continued) [place] CIFUENTES NP [facility] [address] [facility] [address] [place] [address] ----- ------- Signed (signature on file) Hector Weaver MD 11/28/24 5332 ----- ------- END OF REPORT us Generic External Data Provider LAB BLOOD ORDERAB LES Final Result [facility] [address] [place] [phone] * pH, body fluid (11/24/2024 11:07 AM EDT) PH OF BODY FLUID 5.4 [facility] Comment:Testing performed at : [facility] [address] [place] [address] 11/24/2024 11:0 7 AM EDT 11/24/2024 11:42 AM EDT Narrative [facility] - 11/25/2024 11:31 AM EDT GASTRIC FLUID us Generic External Data Provider LAB BODY FLUIDS A ND STOOLS ORDERABLES Final Result Performing Organization Address [facility]/ZIP Co de Phone Number [facility] [address] [place] [address] [phone] * (ABNORMAL) Glucose, Whole Blood (11/24/2024 9:36 AM EDT) Only the most recent of2 resultswithin the time period is included. Glucose, Whole Blood 139(H) 60 - 115 mg/dL [facility] Comment:METER #: [id number] 11/24/2024 9:36 AM EDT 11/24/2024 9:42 AM EDT Generic External Data Provider LAB BLOOD ORDERAB LES Final Result Performing Organization Address [facility] de Phone Number [facility] [address] [place] [phone] * XR Knee 3 Views Left (11/03/2024 12:39 PM EDT) Anatomical Region Laterality Modality Lower Extremities, Knee Left Radiogra phic Imaging 11/03/2024 12:3 9 PM EDT Narrative 11/03/2024 1:55 PM EDT [facility] [address] [place] [address] XRay Report Signed Patient: Lois Dalton MR#: [id number] 1 : 1955 Acct:[id number] Age/Sex: 69 / F ADM Date: 11/03/24 Loc: HO.HOSX Attending Dr: Vijay Weems MD Ordering Physician: Vijay Weems MD Date of Service: 11/03/24 Procedure(s): XR knee LT 3V Accession Number(s): [id number] cc: Vijay Weems MD; [place] CIFUENTES NP [...] 11/03/24 1352 DD/ 1239 TD/TT: 11/03/24 1345 Building Associate: Procedure Note Donotuseinterpreter, Image - 11/03/2024 [facility] [address] [place] [address] [place] [id number] XRay Report Signed Patient: Arnav Dalton#: [id number] 1 : 5Acct:[id number] Age/Sex: 69 / FADM Date: 11/03/24 Loc: [facility] Attending Dr: Vijay Weems MD Ordering Physician: Vijay Weems MD Date of Service: 11/03/24 Procedure(s): XR knee LT 3V Accession Number(s): [id number] cc: Vijay Weems MD; [place] CIFUENTES NP [...] 11/03/24 1352 DD/ 1239 TD/TT: 11/03/24 1345 Building Associate: [facility] External Provider IMG XR PROCEDURES Final Result * (ABNORMAL) Glucose, Whole Blood (11/01/2024 12:59 PM EDT) Glucose, Whole Blood 208(H) 60 - 115 mg/dL [facility] Comment:METER #: [id number] 0Testing performed in the Endocrinology Department [address] , [address], [facility]. 11/01/2024 12:5 9 PM EDT 11/01/2024 1:03 PM EDT Generic External Data Provider LAB BLOOD ORDERAB LES Final Result Performing Organization Address [facility] Co de Phone Number [facility] [address] [place] [phone] * Hepatitis Panel, General (09/06/2024 12:36 PM EDT) [facility] Hepatitis A IgM Nonreactive Nonreactive [facility] Comment:IgM antibodies to MARTINEZ V not detected; does not exclude earlyacute or recovered HAV infection. ~Hepatitis B Surface Antibody NONREACTIVE Nonreactive [facility] Comment:Nonreactive: < 8.00 mIU/mL Hepatitis B Core Antibody Nonreactive Nonreactive [facility] Hepatitis C Antibody Nonreactive Nonreactive [facility] Comment:Antibodies to HCV no t detected; does not exclude early acuteHCV infection. Hepatitis B Surface Ag Negative Negative [facility] 09/06/2024 12:3 6 PM EDT 09/06/2024 12:36 PM EDT Generic External Data Provider LAB BLOOD ORDERAB LES Final Result Performing Organization Address City/[facility]/ZIP Co de Phone Number [facility] [address] [place] [address] [phone] * (ABNORMAL) POCT HGB A1C (08/09/2024 1:41 PM EDT) Hemoglobin A1C 7.1(A) 4.0 - 6.0 % QC Media Lot # [id number] Lot# Expiration Date Blood 08/09/2024 1:41 PM EDT [place] SILVA POINT OF CARE TEST ENTER/EDIT OR DERABLES Final Result * BI Mammogram Screening Tomosynthesis Bilateral (07/07/2024 12:21 PM EDT) Anatomical Region Laterality Modality Breast Bilateral Mammography 07/07/2024 12:2 1 PM EDT Narrative 07/15/2024 4:34 PM EDT [address] [place] [address] Mammography Report Signed Patient: Lois Dalton MR#: [id number] 1 : 1955 Acct:[id number] Age/Sex: 69 / F ADM Date: 07/07/24 Loc: HO.MAMMO Attending Dr: [place] Cifuentes NP Ordering Physician: [place] CIFUENTES NP Results: 1Negative Date of Service: 07/07/24 Follow Up: 1 Year From Orig inal Mammogram Procedure(s): MM tomosynthesis screening BI Accession Number(s): [id number] cc: [place] CIFUENTES NP EXAMINATION: MM SCREENING [...] 07/15/24 1631 DD/ 1221 TD/TT: 07/07/24 1246 Building Associate: Procedure Note Doncharlieter, Image - 07/15/2024 [facility] [address] [place] [address] Mammography Report Signed Patient: Arnav Dalton#: [id number] 1 : 5Acct:[id number] Age/Sex: 69 / FADM Date: 07/07/24 Loc: HO.MAMMO Attending Dr: [place] Cifuentes NP Ordering Physician: [place] CIFUENTESesults: 1Negative Date of Service: 07/07/24Follow Up: 1 Year From Orig inal Mammogram Procedure(s): MM tomosynthesis screening BI Accession Number(s): [id number] cc: [place] CIFUENTES NP EXAMINATION: MM SCREENING [...] 07/15/24 1631 DD/ 1221 TD/TT: 07/07/24 1246 Building Associate: us [place] SILVA IMCharlie BI PROCEDURES Final Result * (ABNORMAL) Hm Colonoscopy (12/23/2022) Colonoscopy Abnormal( A) Normal [facility] Comment:tubular adenoma 12/23/2022 Yuni Jeffery MD HEALTH MAINTENANCE Final Result Performing Organization Address [facility] Co de Phone Number [facility] [address] [place] [phone] * Albumin, Random Urine W/Creatinine (08/15/2022 1:45 PM EDT) Creatinine, Urine 50.16 mg/dL [facility] Microalbumin Urine 12.0 mg/L [facility] Microalbum Creatinine Ratio Ur 23.9 ug/mg cr [facility] Comment:Albumin/Creatinine R atio Reference Ranges: Normal: < 30 ug/mg creatinine Microalbuminuria: 30 - 300 ug/mg creatinineClinical Albuminuria: > 300 ug/mg creatinine 08/15/2022 1:45 PM EDT 08/15/2022 2:19 PM EDT [facility] External Provider LAB URI NE ORDERABLES Final Result Performing Organization Address [facility]/ZIP Co de Phone Number [facility] [address] [place] [phone] * Direct LDL (08/15/2022 12:35 PM EDT) LDL Direct 70 <100 mg/dL [facility] Comment:Greatly elevated Tri glycerides values (>1200 mg/dL)interfere with the dLDL assay. As no Triglyceridestesting was ordered, interpret results with caution.Desirable range <100 mg/dL for primary prevention;<70 mg/dL for patients with CHD or diabetic patientswith > or = 2 CHD risk factors.THIS TEST WAS PERFORMED AT:[employer] [place] [id number] JAIME MD 08/15/2022 12:3 5 PM EDT 08/15/2022 12:36 PM EDT [facility] External Provider LAB BLO OD ORDERABLES Final Result [facility] [address] [place] [address] [phone] from Last 3 Months or Most Recently Relevant to Health Maintenance Insurance [facility] (O D-SNP) [place] [id number] Care Teams Livestock Breeder Relationship Specialty Start Date End Date [place] Cifuentes ANP [address] [place] [address] [place] [address] PCP - General Family Medicine 10/03/19 Ludmila Walker MD [address] [place] [address] Gastroenterology 11/22/24 [facility] 07/31/23
--- OUTSIDE RECORDS SUMMARY | 2024-12-13 13:06 | XMS_ITS | Encounter Summary ---
Author Organization [employer] Address [address] [place] [address] 7t [place] [address] Care Team Providers Care Front Window Cashier Name Role Phone Breanna Zamudio Primary Care Provider [phone] Ludmila Walker MD Unavailable Reason for Visit * Reason Comments Med Refill Encounter Details Date Type Department Care Team (Late st Contact Info) Description 12/02/2022 Refill [facility] [address] [place] [address] Breanna Zamudio ANP [address] [place] [address] Pain in unspecified joint Social History Tobacco [...] Info) Description 01/23/2025 2:00 PM EST Telemedicine [facility] [address] [place] [address] Sis Coppola, RN [address] [place] [address] documented as of this encounter Visit Diagnoses Diagnosis Pain in unspecified joint documented in this encounter Care Teams Front Window Cashier Relationship Specialty Start Date End Date Breanna Zamudio ANP [address] [place] [address] PCP - General Family Medicine 10/03/19 Ludmila Walker MD [address] [place] [address] 3rd [place] [address] Gastroenterology 11/22/24 [facility] 07/31/23 documented as of this encounter
--- OUTSIDE RECORDS SUMMARY | 2024-12-13 13:06 | XMS_ITS | Encounter Summary ---
Author Organization [employer] Address [address] [facility] [address] [facility] [address] [place] [address] Care Team Providers Care Chief Nuclear Medicine Technologist Name Role Phone Breanna Zamudio Primary Care Provider [phone] Ludmila Walker MD Unavailable [phone] Reason for Visit * Reason Onset Date Comments Appointment Request 07/08/2024 Encounter Details Date Type Department Care Team ([facility] st Contact Info) Description 07/08/2024 Telephone [facility] [address] [place], [place] [phone] Breanna Zamudio ANP [address] [place], [place] [phone] Appointment Request Social History Tobacco Use Types [...] appt from 06/14/24. Pt is leaving to [place] on 07/09/24 at around 2 pm but pt was only given half of the pack for the Oxy and Spouse would like to see if anything can be done so that pt gets her full medication. Contact pt Spouse at [phone] documented in this encounter Plan of Treatment Upcoming Encounters Date Type Department Care Team (Late st Contact Info) Description 01/23/2025 2:00 PM EST Telemedicine [facility] [address] [place] [address] Sis Coppola, AIDA [address] [place] [address] documented as of this encounter Visit Diagnoses Not on filedocumented in this encounter Care Teams Chief Nuclear Medicine Technologist Relationship Specialty Start Date End Date Breanna Zamudio ANP [address] [place] [address] PCP - General Family Medicine 10/03/19 Ludmila Walker MD [address] [place] [address] Drive 3rd [place] [address] Gastroenterology 11/22/24 [facility] 07/31/23 documented as of this encounter
--- OUTSIDE RECORDS SUMMARY | 2024-12-13 13:06 | XMS_ITS | Encounter Summary ---
Author Organization [employer] Address [address] [facility] 7t [place] [address] Care Team Providers Care Commercial Or Institutional Cleaner Name Role Phone Breanna Zamudio Primary Care Provider [phone] Ludmila Walker MD Unavailable [phone] Encounter Details Date Type Department Care Team ([facility] Contact Info) Description 03/19/2022 Orders Only [facility] [address] [place], [place] [phone] Breanna Zamudio ANP [address] [place] [address] Moderate persistent asthma without complication (Primary Dx) [...] Info) Description 01/23/2025 2:00 PM EST Telemedicine [facility] [address] [place] [address] Sis Coppola, AIDA [address] [place], [place] documented as of this encounter Visit Diagnoses Diagnosis Moderate persistent asthma without complication- Primary documented in this encounter Care Teams Commercial Or Institutional Cleaner Relationship Specialty Start Date End Date Breanna Zamudio ANP [address] [place] [address] PCP - General Family Medicine 10/03/19 Ludmila Walker MD [address] [place] [address] Drive 3rd [place] [address] Gastroenterology 11/22/24 [facility] [place] 07/31/23 documented as of this encounter
--- OUTSIDE RECORDS SUMMARY | 2024-12-13 13:06 | XMS_ITS | Encounter Summary ---
Author Organization [employer] Address [address] 7t [place] [address] Care Team Providers Care Speedometer Inspector Name Role Phone Breanna Zamudio Primary Care Provider [phone] Ludmila Walker MD Unavailable [phone] Reason for Visit * Reason Onset Date Comments Med Refill 01/21/2024 Encounter Details Date Type Department Care Team (Late st Contact Info) Description 01/21/[address] [facility] MEDICINE [address] [place], [place] [phone] Breanna Zamudio ANP 230 [place], [place] [phone] Med Refill Social History Tobacco Use Types [...] immediate release tablet To be sent to: [facility] - [place], [place] - [address] [place] [address] documented in this encounter Plan of Treatment Upcoming Encounters Date Type Department Care Team ([facility] st Contact Info) Description 01/23/2025 2:[address] [facility] CHC MED & PEDS [address] [place] [address] Sis Coppola RN 505 [place] [address] documented as of this encounter Visit Diagnoses Not on filedocumented in this encounter Care Teams Speedometer Inspector Relationship Specialty Start Date End Date Breanna Zamudio ANP 230 [place] [address] PCP - General Family Medicine 10/03/19 Ludmila Walker MD [address] 3rd [place] [address] Gastroenterology 11/22/24 [facility] 07/31/23 documented as of this encounter
--- OUTSIDE RECORDS SUMMARY | 2024-12-13 13:06 | XMS_ITS | Encounter Summary ---
Author Organization [employer] Address [address] [facility] 7t [place] [address] Care Team Providers Care Building Maintenance Repairer Name Role Phone Breanna Zamudio Primary Care Provider [phone] Ludmila Walker MD Unavailable [phone] Reason for Visit * Reason Onset Date Comments Durable Medical Equipment 09/08/2022 Encounter Details Date Type Department Care Team (Late st Contact Info) Description 09/08/[address] [facility] MEDICINE 230 [place] [address] Breanna Zamudio ANP 230 [place] [address] Durable Medical Equipment Social History Tobacco Use [...] machines, please see notes,. Please contact at [phone] Azerbaijani * Telephone Encounter - RICARDO Caraballo - 09/19/2022 6:26 PM EDT Yes, of course. Thank you. Will place signed RX on your desk. * Telephone Encounter - Madhuri Doe - 09/18/2022 1:56 PM EDT Tc from [facility] with [facility] requesting status on nebulizer. States if script has not been sent to [facility], fax to [facility]. FAX: [phone] Please contact [facility] at [phone] ext [phone] * Telephone Encounter - Rosalinda Rucker - 09/08/2022 3:29 PM EDT Tc from patient requesting a new script for a nebulizer machine. States current one broke. documented in this encounter Plan of Treatment Upcoming Encounters Date Type Department Care Team (Late st Contact Info) Description 01/23/2025 2:00 PM EST Telemedicine [facility] MED & PEDS 505 [place] [address] Sis Coppola, RN 505 [place] [address] documented as of this encounter Visit Diagnoses Not on filedocumented in this encounter Care Teams Building Maintenance Repairer Relationship Specialty Start Date End Date Breanna Zamudio ANP [address] [place] [address] PCP - General Family Medicine 10/03/19 Ludmila Walker MD [address] [place] [address] 3rd [place] [address] Gastroenterology 11/22/24 [facility] 07/31/23 documented as of this encounter
--- OUTSIDE RECORDS SUMMARY | 2024-12-13 13:06 | XMS_ITS | Encounter Summary ---
Author Organization [employer] Address [address] 7t [place] [address] Care Team Providers Care Junior Web Developer Name Role Phone Breanna Zamudio Primary Care Provider [phone] Ludmila Walker MD Unavailable [phone] Reason for Visit * Reason Onset Date Comments Med Refill 02/27/2023 Encounter Details Date Type Department Care Team (Late st Contact Info) Description 02/27/2023 Telephone [facility] MEDICINE 230 [place], [place] [phone] Breanna Zamudio ANP 230 [place], [place] [phone] Med Refill Social History Tobacco Use Types [...] Description 01/23/2025 2:00 PM EST Telemedicine [facility] MED & PEDS 505 [place] [address] Sis Coppola, AIDA 505 [place] [address] documented as of this encounter Visit Diagnoses Not on filedocumented in this encounter Care Teams Junior Web Developer Relationship Specialty Start Date End Date Breanna Zamudio ANP [address] [place] [address] PCP - General Family Medicine 10/03/19 Ludmila Walker MD [address] [place] [address] 3rd [place] [address] Gastroenterology 11/22/24 [facility] 07/31/23 documented as of this encounter
--- OUTSIDE RECORDS SUMMARY | 2024-12-13 13:06 | XMS_ITS | Encounter Summary ---
Author Organization [employer] Address [address] 7t [place] [address] Care Team Providers Care Dentist Name Role Phone Breanna Zamudio Primary Care Provider Ludmila Walker MD Unavailable [phone] Reason for Visit * Reason Comments Med Refill Encounter Details Date Type Department Care Team ([facility] Contact Info) Description 04/07/2022 Refill [facility] MED & PEDS 505 [place] [address] Breanna Zamudio ANP 230 [place] [address] Pain in unspecified joint Social History Tobacco [...] Upcoming Encounters Date Type Department Care Team ([facility] Contact Info) Description 01/23/2025 2:00 PM EST Telemedicine [facility] CHC MED & PEDS 505 [place] [address] Sis Coppola, RN [address] [place] [address] documented as of this encounter Visit Diagnoses Diagnosis Pain in unspecified joint documented in this encounter Care Teams Dentist Relationship Specialty Start Date End Date Breanna Zamudio ANP [address] [place] [address] PCP - General Family Medicine 10/03/19 Ludmila Walker MD [address] [place] [address] Drive 3rd [place] [address] Gastroenterology 11/22/24 [facility] 07/31/23 documented as of this encounter
[2024-12-13] MEDS: Barium Sulfate Oral (Berry) 450 ML ORAL.SUSP 900 ML PO (14:26)
[2024-12-13] MEDS: iohexoL 350 MG/ML 100 ML INFUS..BTL IV (14:27)
== END 2024-12-13 11:39 | disposition home or self-care (01) ==
LOC: HO.CT 11:38
PROVIDERS: PCP Nurse Practitioner Primary Care; Visit Provider Nurse Practitioner Family
DX: R10.9 Unspecified abdominal pain (principal); R19.7 Diarrhea, unspecified; K21.9 Gastro-esophageal reflux disease without esophagitis; Z87.19 Personal history of other diseases of the digestive system
CPT/HCPCS: 74177; Q9967

== ENCOUNTER → 2024-12-13 11:39 | Outpatient (BNV) | payer OTHER, SELFPAY | PROVIDERS: PCP Nurse Practitioner Primary Care; Visit Provider Radiology Diagnostic Radiology | DX: K57.30 Diverticulosis of large intestine without perforation or abscess without bleeding (principal) | CPT/HCPCS: 74177 ==

== ENCOUNTER 2024-12-13 13:41 | Outpatient (REF) | payer OTHER, SELFPAY ==
--- OUTSIDE RECORDS SUMMARY | 2024-12-14 14:56 | XMS_ITS | Encounter Summary ---
Author Organization [employer] Address [address] 7t [place] [address] Care Team Providers Care Ship Fitter Name Role Phone Breanna Zamudio Primary Care Provider [phone] Ludmila Walker MD Unavailable [phone] Reason for Visit * Reason Onset Date Comments Med Refill 11/18/2023 Encounter Details Date Type Department Care Team (Late st Contact Info) Description 11/18/2023 Telephone [facility] MEDICINE 230 [place], [place] [phone] Breanna Zamudio ANP 230 [place], [place] [phone] Med Refill Social History Tobacco Use Types [...] immediate release tablet To be sent to: [facility] - [place], [place] - [address] [place] [address] documented in this encounter Plan of Treatment Upcoming Encounters Date Type Department Care Team ([facility] st Contact Info) Description 12/19/2024 1:00 PM EDT Office Visit [facility] MEDICINE 230 [place] [address] Breanna Zamudio ANP 230 [place] [address] 01/23/2025 2:00 PM EST Telemedicine [facility] CHC MED & PEDS 505 [place] [address] Sis Coppola, AIDA 505 [place] [address] documented as of this encounter Visit Diagnoses Not on filedocumented in this encounter Care Teams Ship Fitter Relationship Specialty Start Date End Date Breanna Zamudio ANP 230 [place] [address] PCP - General Family Medicine 10/03/19 Ludmila Walker MD [address] [place] [address] 3rd [place] [address] Gastroenterology 11/22/24 [facility] 07/31/23 documented as of this encounter
--- OUTSIDE RECORDS SUMMARY | 2024-12-14 14:56 | XMS_ITS | Encounter Summary ---
Author Organization [employer] Address [address] 7t [place] [address] Care Team Providers Care Auto Locator Name Role Phone Breanna Zamudio Primary Care Provider [phone] Ludmila Walker MD Unavailable [phone] Reason for Visit * Reason Comments Med Refill Encounter Details Date Type Department Care Team (Late st Contact Info) Description 10/10/2024 Refill [facility] CHC MED & PEDS [address] [place], [place] [phone] Breanna Zamudio ANP [address] [place] [address] Long-term current use of opiate analgesic; Osteoarthritis [...] Care Team (Late st Contact Info) Description 12/19/2024 1:00 PM EDT Office Visit [facility] MEDICINE [address] [place] [address] Breanna Zamudio ANP [address] [place] [address] 01/23/2025 2:00 PM EST Telemedicine [facility] CHC MED & PEDS 505 [place] [address] Sis Coppola, AIDA 505 [place] [address] documented as of this encounter Visit Diagnoses Diagnosis Long-term current use of opiate analgesic Encounter for long-term (current) use of other medications Osteoarthritis of multiple joints, unspecified osteoarthritis type Arthralgia, unspecified joint documented in this encounter Care Teams Auto Locator Relationship Specialty Start Date End Date Breanna Zamudio ANP [address] [place] [address] PCP - General Family Medicine 10/03/19 Ludmila Walker MD [address]rd [place] [address] Gastroenterology 11/22/24 [facility] 07/31/23 documented as of this encounter
--- OUTSIDE RECORDS SUMMARY | 2024-12-14 14:56 | XMS_ITS | Encounter Summary ---
Author Organization [employer] Address [address] 7t [place] [address] Care Team Providers Care Wildlife Refuge Manager Name Role Phone Breanna Zamudio Primary Care Provider Ludmila Walker MD Unavailable [phone] Reason for Visit * Reason Onset Date Comments Appointment Request 10/31/2024 Encounter Details Date Type Department Care Team ([facility] st Contact Info) Description 10/31/2024 Telephone [facility] MEDICINE 230 [place], [place] [phone] Breanna Zamudio ANP 230 [place], [place] [phone] Appointment Request Social History Tobacco Use Types [...] miss appt Temporary phone, contact pt at [phone] documented in this encounter Plan of Treatment Upcoming Encounters Date Type Department Care Team (Late st Contact Info) Description 12/19/2024 1:00 PM EDT Office Visit [facility] MEDICINE [address] [place] [address] Breanna Zamudio ANP 230 [place] [address] 01/23/2025 2:00 PM EST Telemedicine [facility] CHC MED & PEDS 505 [place] [address] Sis Coppola, AIDA 505 [place] [address] documented as of this encounter Visit Diagnoses Not on filedocumented in this encounter Care Teams Wildlife Refuge Manager Relationship Specialty Start Date End Date Breanna Zamudio ANP 230 [place] [address] PCP - General Family Medicine 10/03/19 Ludmila Walker MD [address] [place] [address] 3rd [place] [address] Gastroenterology 11/22/24 [facility] 07/31/23 documented as of this encounter
--- OUTSIDE RECORDS SUMMARY | 2024-12-14 14:56 | XMS_ITS | Encounter Summary ---
Author Organization [employer] Address [address] [facility] [address] [facility] [address] 7t [place] [address] Care Team Providers Care Ladle Liner Name Role Phone Breanna Zamudio Primary Care Provider [phone] Ludmila Walker MD Unavailable [phone] Reason for Visit * Reason Onset Date Comments Appointment Request 06/13/2024 Encounter Details Date Type Department Care Team ([facility] st Contact Info) Description 06/13/2024 Telephone [facility] MEDICINE 230 [place], [place] [phone] Breanna Zamudio ANP 230 [place], [place] [phone] Appointment Request Social History Tobacco Use Types [...] 2:32 PM EDT Tc from pt canceled PREPARATION PLANT REPAIRER appt due to being on vacation in [place] and would like to r/s after 07/08/24. documented in this encounter Plan of Treatment Upcoming Encounters Date Type Department Care Team (Late st Contact Info) Description 12/19/2024 1:00 PM EDT Office Visit [facility] MEDICINE 230 [place] [address] Breanna Zamudio ANP 230 [place] [address] 01/23/2025 2:00 PM EST Telemedicine [facility] CHC MED & PEDS 505 [place] [address] Sis Coppola, AIDA 505 [place] [address] documented as of this encounter Visit Diagnoses Not on filedocumented in this encounter Care Teams Ladle Liner Relationship Specialty Start Date End Date Breanna Zamudio ANP 230 [place] [address] PCP - General Family Medicine 10/03/19 Ludmila Walker MD [address] [place] [address] Drive 3rd Floor [place] [address] Gastroenterology 11/22/24 [facility] 07/31/23 documented as of this encounter
--- OUTSIDE RECORDS SUMMARY | 2024-12-14 14:56 | XMS_ITS | Encounter Summary ---
Author Organization [employer] Address [address] 7t [place] [address] Care Team Providers Care Liquor Bridge Operator Helper Name Role Phone Breanna Zamudio Primary Care Provider [phone] Ludmila Walker MD Unavailable [phone] Reason for Visit * Reason Onset [...] her to return my call at ext [phone]. Encounter Details Date Type Department Care Team (Late st Contact Info) Description 05/06/2024 Refill [facility] CHC MED & PEDS [address] [place], [place] [phone] Breanna Zamudio ANP 230 [place], [place] [phone] Ischemic colitis (CMS/HCC) Social History Tobacco Use [...] her to return my call at ext [phone]. * Telephone Encounter - Prisca Ramos [place] [...] Description 12/19/2024 1:00 PM EDT Office Visit [facility] MEDICINE 230 [place] [address] Breanna Zamudio ANP 230 [place] [address] 01/23/2025 2:00 PM EST Telemedicine [facility] CHC MED & PEDS 505 [place] [address] Sis Coppola, RN 505 [place] [address] documented as of this encounter Visit Diagnoses Diagnosis Ischemic colitis (CMS/HCC) documented in this encounter Care Teams Liquor Bridge Operator Helper Relationship Specialty Start Date End Date Breanna Zamudio ANP [address] [place] [address] PCP - General Family Medicine 10/03/19 Ludmila Walker MD [address] [place] [address] 3rd [place] [address] Gastroenterology 11/22/24 [facility] [place] 07/31/23 documented as of this encounter
--- OUTSIDE RECORDS SUMMARY | 2024-12-14 14:56 | XMS_ITS | Encounter Summary ---
Author Organization [employer] Address [address] [facility] [address] 7t [place] [address] Care Team Providers Care Microfilming Document Preparer Name Role Phone Breanna Zamudio Primary Care Provider [phone] Ludmila Walker MD Unavailable [phone] Encounter Details Date Type Department Care Team (Late st Contact Info) Description 08/06/2023 Telephone [facility] MEDICINE 230 [place], [place] [phone] Breanna Zamudio ANP 230 [place], [place] [phone] Social History Tobacco Use Types Packs/Day Years [...] the past 12 months, has t he [employer], gas, oil or water [employer] threatened to shut off services in your [...] Description 12/19/2024 1:00 PM EDT Office Visit [facility] MEDICINE 230 [place] [address] Breanna Zamudio ANP 230 [place] [address] 01/23/2025 2:00 PM EST Telemedicine [facility] CHC MED & PEDS 505 [place] [address] Sis Coppola, AIDA 505 [place] [address] documented as of this encounter Visit Diagnoses Not on filedocumented in this encounter Care Teams Microfilming Document Preparer Relationship Specialty Start Date End Date Breanna Zamudio ANP [address] [place] [address] PCP - General Family Medicine 10/03/19 Ludmila Walker MD [address] [place] [address] 3rd [place] [address] Gastroenterology 11/22/24 [facility] [place] 07/31/23 documented as of this encounter
--- OUTSIDE RECORDS SUMMARY | 2024-12-14 14:56 | XMS_ITS | Encounter Summary ---
Author Organization [employer] Address [address] 7t [place] [address] Care Team Providers Care Superintendent Terminal Name Role Phone Breanna Zamudio Primary Care Provider [phone] Ludmial Walker MD Unavailable [phone] Reason for Visit * Reason Comments Med Refill Encounter Details Date Type Department Care Team ([facility] st Contact Info) Description 08/24/2023 Refill [facility] MEDICINE 230 [place], [place] [phone] Breanna Zamudio ANP 230 [place], [place] [phone] Ischemic colitis ([facility]/HCC) Social History Tobacco Use Types Packs/Day [...] 12/19/2024 1:00 PM EDT Office Visit [facility] MEDICINE 230 [place] [address] Breanna Zamudio ANP 230 [place] [address] 01/23/2025 2:00 PM EST Telemedicine [facility] CHC MED & PEDS 505 [place] [address] Sis Coppola, RN 505 [place] [address] documented as of this encounter Visit Diagnoses Diagnosis Ischemic colitis (CMS/HCC) documented in this encounter Care Teams Superintendent Terminal Relationship Specialty Start Date End Date Breanna Zamudio ANP [address] [place] [address] PCP - General Family Medicine 10/03/19 Ludmila Walker MD [address] [place] [address] Drive 3rd [place] [address] Gastroenterology 11/22/24 [facility] 07/31/23 documented as of this encounter
--- OUTSIDE RECORDS SUMMARY | 2024-12-14 14:56 | XMS_ITS | Encounter Summary ---
Author Organization [employer] Address [address] 7t [place] [address] Care Team Providers Care Regional Guide Name Role Phone Breanna Zamudio Primary Care Provider [phone] Ludmila Walker MD Unavailable [phone] Reason for Visit * Reason Comments Med Refill Encounter Details Date Type Department Care Team ([facility] st Contact Info) Description 08/24/2023 Refill [facility] MEDICINE 230 [place], [place] [phone] Breanna Zamudio ANP 230 [place], [place] [phone] Ischemic colitis ([facility]/HCC) Social History Tobacco Use Types Packs/Day [...] Description 12/19/2024 1:00 PM EDT Office Visit [facility] MEDICINE 230 [place] [address] Breanna Zamudio ANP 230 [place] [address] 01/23/2025 2:00 PM EST Telemedicine [facility] CHC MED & PEDS 505 [place] [address] Sis Coppola, RN 505 [place] [address] documented as of this encounter Visit Diagnoses Diagnosis Ischemic colitis (CMS/HCC) documented in this encounter Care Teams Regional Guide Relationship Specialty Start Date End Date Breanna Zamudio ANP [address] [place] [address] PCP - General Family Medicine 10/03/19 Ludmila Walker MD [address] [place] [address] Drive 3rd [place] [address] Gastroenterology 11/22/24 [facility] [place] 07/31/23 documented as of this encounter
--- OUTSIDE RECORDS SUMMARY | 2024-12-14 14:56 | XMS_ITS | Encounter Summary ---
Author Organization [employer] Address [address] [facility] [address] 7[address] [place] [address] Care Team Providers Care Agriculture Engineer Name Role Phone Albania Cifuentes Primary Care Provider [phone] Ludmila Walker MD Unavailable [phone] Encounter Details Date Type Department Care Team (Late st Contact Info) Description 12/13/2024 Orders Only [facility] External Provider, [facility] Social History Tobacco Use Types Packs/Day Years [...] Description 12/19/2024 1:00 PM EDT Office Visit [facility] [address] [place], [place] [phone] Albania Cifuentes ANP 230 [place] [address] 01/23/2025 2:00 PM EST Telemedicine [facility] 505 [place], [place] [phone] Sis Coppola, RN 505 [place], [place] [phone] documented as of this encounter Procedures Procedure Name Priority Date/Time Associated Diagnosis Comments CT ABDOMEN PELVIS W CONTRAST Routine 12/13/2024 1:52 PM EDT documented in this encounter Results * CT Abdomen Pelvis w/ Contrast (12/13/2024 1:52 PM EDT) Anatomical Region Laterality Modality Body, Pelvis, Abdomen Computed T omography 12/13/2024 1:52 PM EDT Narrative 12/13/2024 2:37 PM EDT [address] [address] [address] Scan Report Signed Patient: Lois Dalton MR#: [id number] 1 : 1955 Acct:[id number] Age/Sex: 69 / F ADM Date: 12/13/24 Loc: HO.CT Attending Dr: Lucia Whitney NP Ordering Physician: Lucia Whitney NP Date of Service: 12/13/24 Procedure(s): CT abdomen pelvis w IV con Accession Number(s): [id number] cc: Whitney Correa MD; ALBANIA CIFUENTES NP; Lucia Whitney NP Report Number: [id number]: Total DLP = 645.00 mGy-cm Reason for Exam: L upper and lower quad pain, diarrhea, GERD EXAMINATION: CT ABDOMEN PELVIS WITH IV CONTRAST HISTORY: L upper and lower quad pain, diarrhea, GERD COMPARISON: Comparison is made with the prior examination dated 08/26/2024. TECHNIQUE: CT scan of the abdomen and pelvis was performed following administration of 85 mL Omnipaque 350 using standard departmental protocol. Coronal and sagittal reformatted images were generated and reviewed. The patient received oral contrast material. This CT exam was performed with one or more of the following dose reduction techniques: automated exposure control, adjustment of the mA and/or kV according to patient size, use of iterative reconstruction technique. DLP: 645 mGy-cm FINDINGS: LOWER CHEST: The visualized lung bases are clear. There is no pleural effusion. CARDIOVASCULATURE: The heart is normal in size. There is no pericardial effusion. LIVER: The liver is normal in size and contour. No liver mass is identified. The hepatic and portal veins are patent. GALLBLADDER / BILE DUCTS: The gallbladder is surgically absent. There is no intra or extrahepatic biliary ductal dilatation. SPLEEN: The spleen is normal in size. No focal splenic lesion is identified. PANCREAS: The pancreas is unremarkable in appearance. ADRENAL GLANDS: Within normal limits. KIDNEYS/RETROPERITONEUM: No renal calculi are identified. There is no hydronephrosis. There is a 1.9 cm cyst at the upper pole of the left kidney and a 3.8 cm cyst at the lower pole. LYMPH NODES: No abdominal or pelvic lymphadenopathy. VASCULATURE: The abdominal aorta is normal in caliber. An IVC filter is again seen in place. MESENTERY/PERITONEUM: No free fluid. No masses. There is no free intraperitoneal gas. STOMACH: The stomach is unremarkable. SMALL BOWEL: The small bowel is normal in caliber. COLON: There is diverticulosis of the descending and sigmoid colon, without evidence of diverticulitis. APPENDIX: Normal. URINARY BLADDER/PELVIC ORGANS: The urinary bladder is unremarkable. The patient is status post hysterectomy. BONES / SOFT TISSUES: No suspicious bony or soft tissue abnormalities. CT/CT abdomen pelvis w IV con IMPRESSION: Diverticulosis of the descending and sigmoid colon, without evidence of diverticulitis. Electronically signed by: Cj Gomez MD 12/13/2024 02:34 PM EDT RP Dictated By: Cj Gomez MD Signed By: <Electronically signed by Cj Gomez MD in OV> 12/13/24 1434 DD/ 1352 TD/TT: 12/13/24 1428 Strategic Planning Consultant: Procedure Note Donotuseinterpreter, Image - 12/13/[address] [place] [address] [address] Scan Report Signed Patient: rAnav Dalton#: [id number] 1 : 5Acct:[id number] Age/Sex: 69 / FADM Date: 12/13/24 Loc: HO.CT Attending Dr: Lucia Whitney NP Ordering Physician: Lucia Whitney NP Date of Service: 12/13/24 Procedure(s): CT abdomen pelvis w IV con Accession Number(s): [id number] cc: Whitney Correa MD; ALBANIA CIFUENTES NP; Lucia Whitney NP Report Number: [id number]: Total DLP = 645.00 mGy-cm Reason for Exam: L upper and lower quad pain, diarrhea, GERD EXAMINATION: CT ABDOMEN PELVIS WITH IV CONTRAST HISTORY: L upper and lower quad pain, diarrhea, GERD COMPARISON: Comparison is made with the prior examination dated 08/26/2024. TECHNIQUE: CT scan of the abdomen and pelvis was performed following administration of 85 mL Omnipaque 350 using standard departmental protocol. Coronal and sagittal reformatted images were generated and reviewed. The patient received oral contrast material. This CT exam was performed with one or more of the following dose reduction techniques: automated exposure control, adjustment of the mA and/or kV according to patient size, use of iterative reconstruction technique. DLP: 645 mGy-cm FINDINGS: LOWER CHEST: The visualized lung bases are clear. There is no pleural effusion. CARDIOVASCULATURE: The heart is normal in size. There is no pericardial effusion. LIVER: The liver is normal in size and contour. No liver mass is identified. The hepatic and portal veins are patent. GALLBLADDER / BILE DUCTS: The gallbladder is surgically absent. There is no intra or extrahepatic biliary ductal dilatation. SPLEEN: The spleen is normal in size. No focal splenic lesion is identified. PANCREAS: The pancreas is unremarkable in appearance. ADRENAL GLANDS: Within normal limits. KIDNEYS/RETROPERITONEUM: No renal calculi are identified. There is no hydronephrosis. There is a 1.9 cm cyst at the upper pole of the left kidney and a 3.8 cm cyst at the lower pole. LYMPH NODES: No abdominal or pelvic lymphadenopathy. VASCULATURE: The abdominal aorta is normal in caliber. An IVC filter is again seen in place. MESENTERY/PERITONEUM: No free fluid. No masses. There is no free intraperitoneal gas. STOMACH: The stomach is unremarkable. SMALL BOWEL: The small bowel is normal in caliber. COLON: There is diverticulosis of the descending and sigmoid colon, without evidence of diverticulitis. APPENDIX: Normal. URINARY BLADDER/PELVIC ORGANS: The urinary bladder is unremarkable. The patient is status post hysterectomy. BONES / SOFT TISSUES: No suspicious bony or soft tissue abnormalities. CT/CT abdomen pelvis w IV con IMPRESSION: Diverticulosis of the descending and sigmoid colon, without evidence of diverticulitis. Electronically signed by: Cj Gomez MD 12/13/2024 02:34 PM EDT Dictated By: Cj Gomez MD Signed By: <Electronically signed by Cj Gomez MD in OV> 12/13/24 1434 DD/ 1352 TD/TT: 12/13/24 1428 Strategic Planning Consultant: [facility] External Provider IMG CT PROCEDURES Final Result documented in this encounter Visit Diagnoses Not on filedocumented in this encounter Care Teams Agriculture Engineer Relationship Specialty Start Date End Date Albania Cifuentes ANP [address] [place] [address] PCP - General Family Medicine 10/03/19 Ludmila Walker MD [address] [place] [address] 3rd [place] [address] Gastroenterology 11/22/24 [facility] 07/31/23 documented as of this encounter
--- OUTSIDE RECORDS SUMMARY | 2024-12-14 14:56 | XMS_ITS | Encounter Summary ---
Author Organization [employer] Address [address] [facility] [address] [address] 7t [place] [address] Care Team Providers Care Triage Register Nurse Name Role Phone Breanna Zamudio Primary Care Provider [phone] Ludmila Walker MD Unavailable [phone] Reason for Visit * Reason Onset Date Comments Med Refill 03/15/2024 Encounter Details Date Type Department Care Team ([facility] st Contact Info) Description 03/15/2024 Telephone [facility] MED[facility]INE 230 [place], [place] [phone] Breanna Zamudio ANP 230 [place], [place] [phone] Med Refill Social History Tobacco Use Types [...] immediate release tablet To be sent to: [facility] documented in this encounter Plan of Treatment Upcoming Encounters Date Type Department Care Team ([facility] st Contact Info) Description 12/19/2024 1:00 PM EDT Office Visit [facility] 230 [place] [address] Breanna Zamudio ANP 230 [place] [address] 01/23/2025 2:00 PM EST Telemedicine [facility] MED [facility] PEDS 505 [place] [address] Sis Coppola, AIDA 505 [place] [address] documented as of this encounter Visit Diagnoses Not on filedocumented in this encounter Care Teams Triage Register Nurse Relationship Specialty Start Date End Date Breanna Zamudio ANP [address] [place] [address] PCP - General Family Medicine 10/03/19 Ludmila Walker MD [address] [place] [address] 3rd [place] [address] Gastroenterology 11/22/24 [facility] 07/31/23 documented as of this encounter
--- OUTSIDE RECORDS SUMMARY | 2024-12-14 14:56 | XMS_ITS | Encounter Summary ---
Author Organization [employer] Address [address] [facility] [address] 7t [place] [address] Care Team Providers Care Radio Time Buyer Name Role Phone Breanna Zamudio Primary Care Provider [phone] Ludmila Walker MD Unavailable [phone] Reason for Visit * Reason Onset Date Comments Medication Question 08/11/2024 Encounter Details Date Type Department Care Team ([facility] st Contact Info) Description 08/11/2024 Telephone [facility] MEDICINE 230 [place], [place] [phone] Breanna Zamudio ANP 230 [place], [place] [phone] Medication Question Social History Tobacco Use Types [...] month. States will be leaving out of [place] on Thursday and needs all her medications. Pt will be out for more than a month. Medication: OxyCODONE (Roxicodone) 10 MG immediate release tablet [phone] Patient [phone] Pt spouse documented in this encounter Plan of Treatment Upcoming Encounters Date Type Department Care Team (Late st Contact Info) Description 12/19/2024 1:00 PM EDT Office Visit [facility] MEDICINE [address] [place] [address] Breanna Zamudio ANP [address] [place] [address] 01/23/2025 2:00 PM EST Telemedicine [facility] MED & PEDS 505 [place] [address] Sis Coppola, AIDA 505 [place] [address] documented as of this encounter Visit Diagnoses Not on filedocumented in this encounter Care Teams Radio Time Buyer Relationship Specialty Start Date End Date Breanna Zamudio ANP [address] [place] [address] [place] [address] PCP - General Family Medicine 10/03/19 Ludmila Walker MD [address] [place] [address] 3rd [place] [address] Gastroenterology 11/22/24 [facility] 07/31/23 documented as of this encounter
--- OUTSIDE RECORDS SUMMARY | 2024-12-14 14:56 | XMS_ITS | Encounter Summary ---
Author Organization [employer] Address [address] [facility] [address] 7t [place] [address] Care Team Providers Care Stretch Box Tender Name Role Phone Breanna Zamudio Primary Care Provider [phone] Ludmila Walker MD Unavailable [phone] Reason for Visit * Reason Onset Date Comments FYI 08/31/2023 Encounter Details Date Type Department Care Team ([facility] st Contact Info) Description 08/31/2023 Telephone [facility] MEDICINE 230 [place], [place] [phone] Breanna Zamudio ANP [address] [place], [place] [phone] FYI Social History Tobacco Use Types Packs/Day [...] EDT Tc from Caroline (Physical Therapist) with [facility] calling to inform pt is getting discharge as of today from PT services. Any questions [phone] documented in this encounter Plan of Treatment Upcoming Encounters Date Type Department Care Team (Late st Contact Info) Description 12/19/2024 1:00 PM EDT Office Visit [facility] MED[facility]INE [address] [place] [address] Breanna Zamudio ANP [address] [place] [address] 01/23/2025 2:00 PM EST Telemedicine [facility] CH[facility] MED & PEDS 505 [place] [address] Sis Coppola, AIDA 505 [place] [address] documented as of this encounter Visit Diagnoses Not on filedocumented in this encounter Care Teams Stretch Box Tender Relationship Specialty Start Date End Date Breanna Zamudio ANP [address] [place] [address] PCP - General Family Medicine 7/20/20 Ludmila Walker MD [address] [place] [address] Drive 3rd [place] [address] Gastroenterology 11/22/24 [facility] 07/31/23 documented as of this encounter
--- OUTSIDE RECORDS SUMMARY | 2024-12-14 14:56 | XMS_ITS | Encounter Summary ---
Author Organization [employer] Address [address] [facility] [address] 7t [place] [address] Care Team Providers Care Longwall Shearer Operator Name Role Phone Breanna Zamudio Primary Care Provider [phone] Ludmila Walker MD Unavailable [phone] Encounter Details Date Type Department Care Team (Late st Contact Info) Description 08/31/2023 Telephone [facility] MEDICINE 230 [place], [place] [phone] Breanna Zamudio ANP 230 [place], [place] [phone] Social History Tobacco Use Types Packs/Day Years [...] Description 12/19/2024 1:00 PM EDT Office Visit [facility] [address] [place] [address] Breanna Zamudio ANP [address] [place] [address] 01/23/2025 2:00 PM EST Telemedicine [facility] MED [facility]S [address] [place] [address] Sis Coppola, AIDA 505 [place] [address] documented as of this encounter Visit Diagnoses Not on filedocumented in this encounter Care Teams Longwall Shearer Operator Relationship Specialty Start Date End Date Breanna Zamudio ANP [address] [place] [address] PCP - General Family Medicine 10/03/19 Ludmila Walker MD [address] 3rd [place] [address] Gastroenterology 11/22/24 [facility] 07/31/23 documented as of this encounter
--- OUTSIDE RECORDS SUMMARY | 2024-12-14 14:57 | XMS_ITS | Encounter Summary ---
Author Organization [employer] Address [address] 7t [place] [address] Care Team Providers Care Guest Experience Representative Name Role Phone Breanna Zamudio Primary Care Provider [phone] Ludmila Walker MD Unavailable [phone] Reason for Visit * Reason Onset Date Comments Appointment Request 07/08/2024 Encounter Details Date Type Department Care Team ([facility] st Contact Info) Description 07/08/2024 Telephone [facility] 230 [place], [place] [phone] Breanna Zamudio ANP 230 [place], [place] [phone] Appointment Request Social History Tobacco Use Types [...] appt from 06/14/24. Pt is leaving to [place] on 07/09/24 at around 2 pm but pt was only given half of the pack for the Oxy and Spouse would like to see if anything can be done so that pt gets her full medication. Contact pt Spouse at [phone] documented in this encounter Plan of Treatment Upcoming Encounters Date Type Department Care Team (Late st Contact Info) Description 12/19/2024 1:00 PM EDT Office Visit [facility] [address] [place] [address] Breanna Zamudio ANP [address] [place] [address] 01/23/2025 2:00 PM EST Telemedicine [facility] MED [facility] PEDS 505 [place] [address] Sis Coppola, RN 505 [place] [address] documented as of this encounter Visit Diagnoses Not on filedocumented in this encounter Care Teams Guest Experience Representative Relationship Specialty Start Date End Date Breanna Zamudio ANP [address] [place] [address] PCP - General Family Medicine 10/03/19 Ludmila Walker MD [address] [place] [address] 3rd [place] [address] Gastroenterology 11/22/24 [facility] 07/31/23 documented as of this encounter
--- OUTSIDE RECORDS SUMMARY | 2024-12-14 14:57 | XMS_ITS | Encounter Summary ---
Author Organization [employer] Address [address] [facility] [address] 7t [place] [address] Care Team Providers Care Emerging Solutions Executive Name Role Phone Breanna Zamudio Primary Care Provider [phone] Ludmila Walker MD Unavailable Reason for Visit * Reason Comments Med Refill Encounter Details Date Type Department Care Team (Late st Contact Info) Description 04/07/[address] [facility] CHC MED & PEDS [address] [place], [place] [phone] Breanna Zamudio ANP 230 [place] [address] Pain in unspecified joint Social History Tobacco [...] Upcoming Encounters Date Type Department Care Team ([facility] Contact Info) Description 12/19/2024 1:00 PM EDT Office Visit [facility] MEDICINE 230 [place] [address] Breanna Zamudio ANP [address] [place] [address] 01/23/2025 2:00 PM EST Telemedicine [facility] MED & PEDS [address] [place] [address] Sis Coppola, RN 505 [place] [address] documented as of this encounter Visit Diagnoses Diagnosis Pain in unspecified joint documented in this encounter Care Teams Emerging Solutions Executive Relationship Specialty Start Date End Date Breanna Zamudio ANP [address] [place] [address] PCP - General Family Medicine 10/03/19 Ludmila Walker MD [address] 3rd [place] [address] Gastroenterology 11/22/24 [facility] 07/31/23 documented as of this encounter
--- OUTSIDE RECORDS SUMMARY | 2024-12-14 14:57 | XMS_ITS | Encounter Summary ---
Author Organization [employer] Address [address] [facility] 7t [place] [address] Care Team Providers Care Safety Assistant Name Role Phone Breanna Zamudio Primary Care Provider [phone] Ludmila Walker MD Unavailable [phone] Encounter Details Date Type Department Care Team (Late st Contact Info) Description 03/19/2022 Orders Only [facility] CH[facility] MED & PEDS 505 [place], [place] [phone] Breanna Zamudio ANP 230 [place] [address] Moderate persistent asthma without complication (Primary Dx) [...] 12/19/2024 1:00 PM EDT Office Visit [facility] MEDICINE 230 [place], [place] [phone] Breanna Zamudio ANP 230 [place], [place] [phone] 01/23/2025 2:00 PM EST Telemedicine [facility] CHC MED & PEDS 505 [place], [place] [phone] Sis Coppola, RN 505 [place] [address] documented as of this encounter Visit Diagnoses Diagnosis Moderate persistent asthma without complication- Primary documented in this encounter Care Teams Safety Assistant Relationship Specialty Start Date End Date Breanna Zamudio ANP [address] [place] [address] PCP - General Family Medicine 10/03/19 Ludmila Walker MD [address] [place] [address] 3rd [place] [address] Gastroenterology 11/22/24 [facility] 07/31/23 documented as of this encounter
--- OUTSIDE RECORDS SUMMARY | 2024-12-14 14:57 | XMS_ITS | Clinical Summary ---
Author Organization [employer] Address [address] [facility] [address] 7[address] [place] [address] Care Team Providers Care Instrument Repairer Steam Plant Name Role Phone Robb [place] SILVA Primary Care Provider Ludmila Walker MD Unavailable Allergies No known active allergies Medications Ventolin HFA 108 (90 Base) MCG/ACT inhaler Inhale 1 puff every 4 (four) hours if needed for wheezing. Active Blood Glucose Monitoring Suppl (Cequel Datauch Verio Flex System) w/Device kit TEST BLOOD [...] 34 UNITS SUBCUTANEOUSLY EVERY EVENING Active Lancets (Cequel Datauch Delica Plus [id number]) misc TEST BLOOD SUGAR TWICE DAILY Active [...] ONCE A WEEK 024 Active Continuous Glucose Tube Winder Hand (FreeStyle Manuelito 2 [place]) device Use as directed 024 Active Continuous Glucose Sensor (FreeStyle Manuelito 2 Sensor) [facility] Every 2 weeks to monitor BG 024 [...] See Colonoscopy bx report 11/16/24 Dr. Walker, [facility] GI Tumor site: Gastric body Tumor size: [...] edema. I d/w patient that this a intermission coordinator issue to fu with PCP, encouraged tight [...] AM EST): Rx Paxlovid x 5 days, Bicknell interactions module checked, she will hold Crestor [...] Encounters Date Type Department Care Team Description 12/13/2024 Orders Only [facility] External Provider, [facility] 12/05/2024 Refill [facility] [address] [place] [address] [place] Cifuentes ANP Long-term current use of opiate analgesic; Osteoarthritis of multiple joints, unspecified osteoarthritis type; Arthralgia, unspecified joint 12/05/2024 Refill [facility] [address] [place] [address] Sis Coppola RN Long-term current use of opiate analgesic; Osteoarthritis of multiple joints, unspecified osteoarthritis type; Arthralgia, unspecified joint 12/05/2024 Telephone [facility] [address] [place] [address] [place] Cifuentes ANP Med Refill 11/30/2024 Refill [facility] [address] [place] [address] [place] Cifuentes ANP 11/27/2024 Refill [facility] [address] [place] [address] [place] Cifuentes ANP Insomnia disorder with non-sleep disorder mental comorbidity 11/24/2024 Orders Only GENERIC EXTERNAL DATA DEPARTMENT Provider, Generic External Data 11/22/2024 Results Follow-Up [facility] [address] [place] [address] [place] Cifuentes ANP Glucose, Whole Blood, Hematoxylin and Eosin Stain 11/16/2024 Orders Only GENERIC EXTERNAL DATA DEPARTMENT Provider, Generic External Data 11/09/2024 Refill [facility] [address] [place] [address] [place] Cifuentes ANP Hyperlipidemia associated with type 2 diabetes mellitus ([facility]) 11/03/2024 Refill [facility] [address] [place] [address] [place] Cifuentes ANP Long-term current use of opiate analgesic; Osteoarthritis of multiple joints, unspecified osteoarthritis type; Arthralgia, unspecified joint 11/01/2024 Orders Only GENERIC EXTERNAL DATA DEPARTMENT Provider, Generic External Data 10/31/2024 1:30 PM EDT Telemedicine [facility] [address] [place] [address] Sis Coppola RN Long-term current use of opiate analgesic 10/31/2024 Telephone [facility] [address] [place] [address] [place] Cifuentes ANP Appointment Request 10/31/2024 Travel 10/31/2024 Refill [facility] [address] [place] [address] [place] Cifuentes ANP Hypothyroidism, unspecified type 10/28/2024 Refill [facility] [address] [place] [address] [place] Cifuentes ANP Essential hypertension 10/10/2024 Refill [facility] [address] [place] [address] [place] Cifuentes ANP Long-term current use of opiate analgesic; Osteoarthritis of multiple joints, unspecified osteoarthritis type; Arthralgia, unspecified joint 10/10/2024 Refill [facility] [address] [place] [address] [place] Cifuentes ANP Long-term current use of opiate analgesic; Osteoarthritis of multiple joints, unspecified osteoarthritis type; Arthralgia, unspecified joint 10/01/2024 Refill [facility] [address] [place] [address] [place] Cifuentes ANP COVID-19 from Last 3 [...] is your housing situation today? I have sherylsammi jordan 08/09/[address] you [...] Description 12/19/2024 1:00 PM EDT Office Visit [facility] [address] [place] [address] [place]ia Cifuentes ANP [address] [place] [address] 01/23/2025 2:00 PM EST Telemedicine [facility] [address] [place] [address] Sis Coppola, RN [address] [place] [address] Health Maintenance Due Date Last Done Comments [...] W CONTRAST Routine 12/13/2024 1:52 PM EDT HEMATOXYLIN AND EOSIN STAIN Routine 11/24/2024 11:28 [...] Recently Relevant to Health Maintenance Results * CT Abdomen Pelvis w/ Contrast (12/13/2024 1:52 PM EDT) Anatomical Region Laterality Modality Body, Pelvis, Abdomen Computed T omography 12/13/2024 1:52 PM EDT Narrative 12/13/2024 2:37 PM EDT [address] [address] [address] Scan Report Signed Patient: Lois Dalton MR#: [id number] 1 : 1955 Acct:[id number] Age/Sex: 69 / F ADM Date: 12/13/24 Loc: HO.CT Attending Dr: Lucia Whitney NP Ordering Physician: Lucia Whitney NP Date of Service: 12/13/24 Procedure(s): CT abdomen pelvis w IV con Accession Number(s): [id number] cc: Whitney Correa MD; [place] CIFUENTES LANDSCAPING SUPERVISOR; Lucia Whitney NP Report Number: [id number]: Total DLP = 645.00 mGy-cm Reason for [...] 12/13/24 1434 DD/ 1352 TD/TT: 12/13/24 1428 Printed Forms Proofreader: Procedure Note Donotuseinterpreter, Image - 12/13/[address] [address] [address] Scan Report Signed Patient: Arnav Dalton#: [id number] 1 : 5Acct:[id number] Age/Sex: 69 / FADM Date: 12/13/24 Loc: HO.CT Attending Dr: Lucia Whitney NP Ordering Physician: Lucia Whitney NP Date of Service: 12/13/24 Procedure(s): CT abdomen pelvis w IV con Accession Number(s): [id number] cc: Whitney Correa MD; [place] CIFUENTES NP; Lucia Whitney NP Report Number: [id number]: Total DLP = 645.00 mGy-cm Reason for [...] 12/13/24 1434 DD/ 1352 TD/TT: 12/13/24 1428 Printed Forms Proofreader: [facility] External Provider IMG CT PROCEDURES Final Result * Hematoxylin and Eosin Stain (11/24/2024 11:28 AM EDT) Only the most recent of2 resultswithin the time period is included. 11/24/2024 11:2 8 AM EDT 11/24/2024 12:27 PM EDT [facility] - 11/28/2024 5:19 PM EDT ----- ------- Name: Lois Dalton Age/Sex: 69/F : 1955 Unit#: [id number] Attend Dr: Ludmila Walker MD Re11/24/24 Status: [facility] Location: [facility] Disch: ----- ------- SPEC : [id number] RECD: 11/24/24 STATUS: SHIV STANLEY NUM: [id number] JARED: 11/24/[address] [facility] [address]: Ludmila Walker MD ENTERED: 11/24/24 SP TYPE: Surgical OTHR DR: [place] CIFUENTES LANDSCAPING SUPERVISOR ORDERED: HE Stain/3, Gross Micro L4, IHC, [...] developed and their performance characteristics determined by [facility]. They have not been cleared or approved by the U.S. Food and Drug Administration (FDA). However, the FDA has determined that such clearance or approval is not necessary. This laboratory is certified under the Clinical Laboratory Improvement Amendments of 1988 (CLIA) as qualified to perform high complexity clinical laboratory testing. Copies To: Ludmila Walker MD [facility] Gastroenterology Services [address] [place] [id number] CONTINUED ON NEXT PAGE ----- ------- Name: Lois Dalton Age/Sex: 69/F : 1955 Unit#: [id number] Attend Dr: Ludmila Walker MD Re11/24/24 Status: [facility] Location: [facility] Disch: ----- ------- SPEC : [id number] RECD: 11/24/24-1227 STATUS: SHIV STANLEY NUM: [id number] JARED: 11/24/24-[address]: Ludmila Walker MD ENTERED: 11/24/24-1236 SP TYPE: Surgical OTHR DR: [place] CIFUENTES NP ORDERED: HE Stain/3, Gross Micro L4, IHC, Special st. 2, H. pylori, AB/PAS Copies To: (Continued) [place] CIFUENTES NP [address] [address] ----- ------- Signed (signature on file) Hector Weaver MD 11/28/24 1719 ----- ------- END OF REPORT Generic External Data Provider LAB BLOOD ORDERAB LES Final Result Performing Organization Address [facility] de Phone Number [facility] [address] [place] [phone] * pH, body fluid (11/24/2024 11:07 AM EDT) PH OF BODY FLUID 5.4 [facility] Comment:Testing performed at : [facility] [address] [place] [address] 11/24/2024 11:0 7 AM EDT 11/24/2024 11:42 AM EDT Narrative [facility] - 11/25/2024 11:31 AM EDT GASTRIC FLUID us Generic External Data Provider LAB BODY FLUIDS A ND STOOLS ORDERABLES Final Result Performing Organization Address [facility] de Phone Number [facility] [address] [place] [phone] * (ABNORMAL) Glucose, Whole Blood (11/24/2024 9:36 AM EDT) Only the most recent of2 resultswithin the time period is included. Glucose, Whole Blood 139(H) 60 - 115 mg/dL [facility] Comment:METER #: [id number] 11/24/2024 9:36 AM EDT 11/24/2024 9:42 AM EDT us Generic External Data Provider LAB BLOOD ORDERAB LES Final Result Performing Organization Address [facility] de Phone Number [facility] [address] [place] [phone] * XR Knee 3 Views Left (11/03/2024 12:39 PM EDT) Anatomical Region Laterality Modality Lower Extremities, Knee Left Radiogra phic Imaging 11/03/2024 12:3 9 PM EDT Narrative 11/03/2024 1:55 PM EDT [facility] [address] [place] [address] XRay Report Signed Patient: Lois Dalton MR#: [id number] 1 : 1955 Acct:[id number] Age/Sex: 69 / F ADM Date: 11/03/24 [facility] Attending Dr: Vijay Weems MD Ordering Physician: Vijay Weems MD Date of Service: 11/03/24 Procedure(s): XR knee LT 3V Accession Number(s): [id number] cc: Vijay Weems MD; [place] CIFUENTES NP [...] 11/03/24 1352 DD/ 1239 TD/TT: 11/03/24 1345 Printed Forms Proofreader: Procedure Note Donotuseinterpreter, Image - 11/03/2024 [facility] [address] [place] [address] XRay Report Signed Patient: Lois DaltonMR#: [id number] 1 : 5Acct:[id number] Age/Sex: 69 / FADM Date: 11/03/24 Loc: [facility] Attending Dr: Vijay Weems MD Ordering Physician: Vijay Weems MD Date of Service: 11/03/24 Procedure(s): XR knee LT 3V Accession Number(s): [id number] cc: Vijay Weems MD; [place] CIFUENTES NP [...] 11/03/24 1352 DD/ 1239 TD/TT: 11/03/24 1345 Printed Forms Proofreader: [facility] External Provider IMG XR PROCEDURES Final Result * (ABNORMAL) Glucose, Whole Blood (11/01/2024 12:59 PM EDT) Glucose, Whole Blood 208(H) 60 - 115 mg/dL [facility] Comment:METER #: [id number] 0Testing performed in the Endocrinology Department [address] , [address], [place]. 11/01/2024 12:5 9 PM EDT 11/01/2024 1:03 PM EDT Generic External Data Provider LAB BLOOD ORDERAB LES Final Result Performing Organization Address [facility] Co de Phone Number [facility] [address] [place] [address] [phone] * Hepatitis Panel, General (09/06/2024 12:36 PM EDT) Hepatitis A IgM Nonreactive Nonreactive [facility] [...] Final Result Performing Organization Address [facility] Co de Phone Number [facility] [address] [place] [address] [phone] * (ABNORMAL) POCT HGB A1C (08/09/2024 1:41 PM EDT) Hemoglobin A1C 7.1(A) 4.0 - 6.0 % QC Media Lot # [id number] Lot# Expiration Date Blood 08/09/2024 1:41 PM EDT us [place] Cifuentes ANP POINT OF CARE TEST ENTER/EDIT OR DERABLES Final Result * BI Mammogram Screening Tomosynthesis Bilateral (07/07/2024 12:21 PM EDT) Anatomical Region Laterality Modality Breast Bilateral Mammography 07/07/2024 12:2 1 PM EDT Narrative 07/15/2024 4:34 PM EDT [facility] [address] [place] [address] Mammography Report Signed Patient: Lois Dalton MR#: [id number] 1 : 1955 Acct:[id number] Age/Sex: 69 / F ADM Date: 07/07/24 Loc: HO.MAMMO Attending Dr: [place] Cifuentes NP Ordering Physician: [place] CIFUENTES NP Results: 1Negative Date of Service: 07/07/24 Follow Up: 1 Year From Orig inal Mammogram Procedure(s): MM tomosynthesis screening BI Accession Number(s): [id number] cc: [place] CIFUENTES NP EXAMINATION: MM SCREENING [...] 07/15/24 1631 DD/ 1221 TD/TT: 07/07/24 1246 Printed Forms Proofreader: Procedure Note Donotuseinterpreter, Image - 07/15/2024 [facility] [address] [place] [address] Mammography Report Signed Patient: Lois DaltonMR#: [id number] 1 : 5Acct:[id number] Age/Sex: 69 / FADM Date: 07/07/24 Loc: HO.MAMMO Attending Dr: [place] Cifuentes LANDSCAPING SUPERVISOR Ordering Physician: [place] CIFUENTES NPResults: 1Negative Date of Service: 07/07/24Follow Up: 1 Year From Orig inal Mammogram Procedure(s): MM tomosynthesis screening BI Accession Number(s): [id number] cc: [place] CIFUENTES LANDSCAPING SUPERVISOR EXAMINATION: MM SCREENING DIGITAL BREAST TOMOSYNTHESIS, BILATERAL [...] 07/15/24 1631 DD/ 1221 TD/TT: 07/07/24 1246 Printed Forms Proofreader: us [place] Cifuentes ANP IMG BI PROCEDURES Final Result * (ABNORMAL) Hm Colonoscopy (12/23/2022) Colonoscopy Abnormal( A) Normal [facility] Comment:tubular adenoma 12/23/2022 us Yuni Jeffery MD HEALTH MAINTENANCE Final Result [facility] [address] [place] [address] [phone] * Albumin, Random Urine W/Creatinine (08/15/2022 1:45 PM EDT) Creatinine, Urine 50.16 mg/dL [facility] Microalbumin Urine 12.0 mg/L [facility] Microalbum Creatinine Ratio Ur 23.9 ug/mg cr [facility] Comment:Albumin/Creatinine R atio Reference Ranges: Normal: < 30 ug/mg creatinine Microalbuminuria: 30 - 300 ug/mg creatinineClinical Albuminuria: > 300 ug/mg creatinine 08/15/2022 1:45 PM EDT 08/15/2022 2:19 PM EDT [facility] External Provider LAB URI NE ORDERABLES Final Result Performing Organization Address [facility] de Phone Number [facility] [address] [place] [phone] * Direct LDL (08/15/2022 12:35 PM EDT) LDL Direct 70 <100 mg/dL [facility] Comment:Greatly elevated Tri glycerides values (>1200 mg/dL)interfere with the dLDL assay. As no Triglyceridestesting was ordered, interpret results with caution.Desirable range <100 mg/dL for primary prevention;<70 mg/dL for patients with CHD or diabetic patientswith > or = 2 CHD risk factors.THIS TEST WAS PERFORMED AT:[email or web address] [place] [phone] JAIME MD 08/15/2022 12:3 5 PM EDT 08/15/2022 12:36 PM EDT [facility] External Provider LAB BLO OD ORDERABLES Final Result Performing Organization Address [facility] Co de Phone Number [facility] [address] [place] [phone] from Last 3 Months or Most Recently Relevant to Health Maintenance Insurance [facility] CARE HOME OPTIONS (HMO D-SNP) [place] KIRK [id number] Care Teams Instrument Repairer Steam Plant Relationship Specialty Start Date End Date [place] Cifuentes ANP [address] [place] [address] MICKEY Bautista [phone] PCP - General Family Medicine 10/03/19 Ludmila Walker MD [address] [place] [address] 3rd Floor [place]KEY Bautista [address] Gastroenterology 11/22/24 [facility] 07/31/23
--- OUTSIDE RECORDS SUMMARY | 2024-12-14 14:57 | XMS_ITS | Encounter Summary ---
Author Organization [employer] Address 75 [facility] 7t [place] [address] Care Team Providers Care Guest History Clerk Name Role Phone Breanna Zamudio Primary Care Provider [phone] Ludmila Walker MD Unavailable [phone] Reason for Visit * Reason Onset Date Comments Med Refill 02/27/2023 Encounter Details Date Type Department Care Team (Late st Contact Info) Description 02/27/2023 Telephone [facility] [address] [place], [place] [phone] Breanna Zamudio ANP [address] [place], [place] [phone] Med Refill Social History Tobacco Use Types [...] Description 12/19/2024 1:00 PM EDT Office Visit [facility] [address] [place] [address] Breanna Zamudio ANP [address] [place] [address] 01/23/2025 2:00 PM EST Telemedicine [facility] [address] [place] [address] Sis Coppola, RN [address] [place] [address] documented as of this encounter Visit Diagnoses Not on filedocumented in this encounter Care Teams Guest History Clerk Relationship Specialty Start Date End Date Breanna Zamudio ANP [address] [place] [address] PCP - General Family Medicine 10/03/19 Ludmila Walker MD [address] [place] [address] 3rd [place] [address] Gastroenterology 11/22/24 [facility] 07/31/23 documented as of this encounter
--- OUTSIDE RECORDS SUMMARY | 2024-12-14 14:57 | XMS_ITS | Encounter Summary ---
Author Organization [employer] Address 75 [facility] 7t [place] [address] Care Team Providers Care Patient Service Specialist Name Role Phone Breanna Zamudio Primary Care Provider [phone] Ludmila Walker MD Unavailable [phone] Reason for Visit * Reason Comments Med Refill Encounter Details Date Type Department Care Team (Late st Contact Info) Description 12/02/2022 Refill [facility] [address] [place] [phone] Breanna Zamudio ANP [address] [place] [address] Pain in unspecified joint Social History Tobacco [...] Description 12/19/2024 1:00 PM EDT Office Visit [facility] [address] [place] [phone] Breanna Zamudio ANP [address] [place], [place] [phone] 01/23/2025 2:00 PM EST Telemedicine [facility] [address] [place] [address] Sis Coppola, RN [address] [place] [address] documented as of this encounter Visit Diagnoses Diagnosis Pain in unspecified joint documented in this encounter Care Teams Patient Service Specialist Relationship Specialty Start Date End Date Breanna Zamudio ANP [address] [place] [phone] PCP - General Family Medicine 10/03/19 Ludmila Walker MD [address] [place] [address] 3rd [place] [address] Gastroenterology 11/22/24 [facility] 07/31/23 documented as of this encounter
--- OUTSIDE RECORDS SUMMARY | 2024-12-14 14:57 | XMS_ITS | Encounter Summary ---
Author Organization [employer] Address [address] [facility] [address] [place] [address] Care Team Providers Care Engine Buildup Mechanic Name Role Phone Breanna Zamudio Primary Care Provider [phone] Ludmila Walker MD Unavailable [phone] Reason for Visit * Reason Onset Date Comments Med Refill 10/27/2023 Encounter Details Date Type Department Care Team (Late st Contact Info) Description 10/27/2023 Telephone [facility] [address] [place], [place] [phone] Breanna Zamudio ANP [address] [place], [place] [phone] Med Refill Social History Tobacco Use Types [...] immediate release tablet To be sent to: [facility] documented in this encounter Plan of Treatment Upcoming Encounters Date Type Department Care Team (Late st Contact Info) Description 12/19/2024 1:00 PM EDT Office Visit [facility] [address] [place] [address] Breanna Zamudio ANP [address] [place] [address] 01/23/2025 2:00 PM EST Telemedicine [facility] [address] [place] [address] Sis Coppola, AIDA [address] [place] [address] documented as of this encounter Visit Diagnoses Not on filedocumented in this encounter Care Teams Engine Buildup Mechanic Relationship Specialty Start Date End Date Breanna Zamudio ANP [address] [place] [address] PCP - General Family Medicine 10/03/19 Ludmila Walker MD [address] [place] [address] Drive 3rd Floor [place] [phone] Gastroenterology 11/22/24 [facility] 07/31/23 documented as of this encounter
--- OUTSIDE RECORDS SUMMARY | 2024-12-14 14:57 | XMS_ITS | Encounter Summary ---
Author Organization [employer] Address 75 [facility] 7t [place] [address] Care Team Providers Care Register Of Deeds Name Role Phone Breanna Zamudio Primary Care Provider [phone] Ludmila Walker MD Unavailable [phone] Reason for Visit * Reason Comments Med Refill Encounter Details Date Type Department Care Team ([facility] st Contact Info) Description 12/05/2024 Refill [facility] [address] [place], [place] [phone] Breanna Zamudio ANP [address] [place], [place] [phone] Long-term current use of opiate analgesic; Osteoarthritis [...] 1:00 PM EDT Office Visit [facility] [address] [place] [phone] Breanna Zamudio ANP [address] [place] [phone] 01/23/2025 2:00 PM EST Telemedicine [facility] [address] [place] [address] Sis Coppola, AIDA [address] [place] [address] documented as of this encounter Visit Diagnoses Diagnosis Long-term current use of opiate analgesic Encounter for long-term (current) use of other medications Osteoarthritis of multiple joints, unspecified osteoarthritis type Arthralgia, unspecified joint documented in this encounter Care Teams Register Of Deeds Relationship Specialty Start Date End Date Breanna Zamudio ANP [address] [place] [phone] PCP - General Family Medicine 10/03/19 Ludmila Walker MD [address] [place] [address] Drive 3rd [place] [address] Gastroenterology 11/22/24 [facility] 07/31/23 documented as of this encounter
--- OUTSIDE RECORDS SUMMARY | 2024-12-14 14:57 | XMS_ITS | Encounter Summary ---
Author Organization [employer] Address 75 [facility] 7t [place] [address] Care Team Providers Care Senior National Account Manager Name Role Phone Breanna Zamudio Primary Care Provider [phone] Ludmila Walker MD Unavailable [phone] Reason for Visit * Reason Onset Date Comments Durable Medical Equipment 09/08/2022 Encounter Details Date Type Department Care Team (Late st Contact Info) Description 09/08/2022 Telephone [facility] MEDICINE [address] [place] [address] Breanna Zamudio ANP 230 [place] [address] Durable Medical Equipment Social History Tobacco Use [...] machines, please see notes,. Please contact at [phone] [place] * Telephone Encounter - RICARDO Caraballo - 09/19/2022 6:26 PM EDT Yes, of course. Thank you. Will place signed RX on your desk. * Telephone Encounter - Madhuri Doe - 09/18/2022 1:56 PM EDT Tc from [facility] with [facility] requesting status on nebulizer. States if script has not been sent to [facility], fax to [facility]. FAX: [phone] Please contact [facility] at [phone] ext [phone] * Telephone Encounter - Rosalinda Rucker - 09/08/2022 3:29 PM EDT Tc from patient requesting a new script for a nebulizer machine. States current one broke. documented in this encounter Plan of Treatment Upcoming Encounters Date Type Department Care Team (Late st Contact Info) Description 12/19/2024 1:00 PM EDT Office Visit [facility] MEDICINE [address] [place] [address] Breanna Zamudio ANP 230 [place] [address] 01/23/2025 2:00 PM EST Telemedicine [facility] MED & PEDS 505 [place] [address] Sis Coppola RN 505 [place] [address] documented as of this encounter Visit Diagnoses Not on filedocumented in this encounter Care Teams Senior National Account Manager Relationship Specialty Start Date End Date Breanna Zamudio ANP 230 [place] [address] PCP - General Family Medicine 10/03/19 Ludmila Walker MD [address]rd [place] [address] Gastroenterology 11/22/24 [facility] 07/31/23 documented as of this encounter
--- OUTSIDE RECORDS SUMMARY | 2024-12-14 14:57 | XMS_ITS | Encounter Summary ---
Author Organization [employer] Address 75 [facility] 7t [place] [address] Care Team Providers Care Licensed Dispensing Optician Name Role Phone Breanna Zamudio Primary Care Provider [phone] Ludmila Walker MD Unavailable [phone] Reason for Visit * Reason Comments Med Refill Encounter Details Date Type Department Care Team (Late st Contact Info) Description 11/21/2022 Refill [facility] MEDICINE [address] [place] [address] Breanna Zamudio ANP 230 [place] [address] Pain in unspecified joint Social History Tobacco [...] Description 12/19/2024 1:00 PM EDT Office Visit [facility] MEDICINE [address] [place] [phone] Breanna Zamudio ANP 230 [place], [place] [phone] 01/23/2025 2:00 PM EST Telemedicine [facility] MED & PEDS [address] [place] [address] Sis Coppola, RN [address] [place] [address] documented as of this encounter Visit Diagnoses Diagnosis Pain in unspecified joint documented in this encounter Care Teams Licensed Dispensing Optician Relationship Specialty Start Date End Date Breanna Zamudio ANP [address] [place] [address] PCP - General Family Medicine 10/03/19 Ludmila Walker MD [address] [place] [address] 3rd [place] [address] Gastroenterology 11/22/24 [facility] 07/31/23 documented as of this encounter
--- OUTSIDE RECORDS SUMMARY | 2024-12-14 14:57 | XMS_ITS | Encounter Summary ---
Author Organization [employer] Address [address] [facility] [address] 7t [place] [address] Care Team Providers Care General Utility Maintenance Repairer Name Role Phone Breanna Zamudio Primary Care Provider [phone] Ludmila Walker MD Unavailable [phone] Reason for Visit * Reason Onset Date Comments Med Refill 12/05/2024 Encounter Details Date Type Department Care Team (Late st Contact Info) Description 12/05/2024 Telephone [facility] MEDICINE [address] [place], [place] [phone] Breanna Zamudio ANP 230 [place], [place] [phone] Med Refill Social History Tobacco Use Types [...] immediate release tablet To be sent to: [facility] documented in this encounter Plan of Treatment Upcoming Encounters Date Type Department Care Team (Late st Contact Info) Description 12/19/2024 1:00 PM EDT Office Visit [facility] MEDICINE [address] [place] [address] Breanna Zamudio ANP [address] [place] [address] 01/23/2025 2:00 PM EST Telemedicine [facility] CHC MED & PEDS 505 [place] [address] Sis Coppola, AIDA 505 [place] [address] documented as of this encounter Visit Diagnoses Not on filedocumented in this encounter Care Teams General Utility Maintenance Repairer Relationship Specialty Start Date End Date Breanna Zamudio ANP 230 [place] [address] PCP - General Family Medicine 10/03/19 Ludmila Walker MD [address] [place] [address] 3rd [place] [address] Gastroenterology 11/22/24 [facility] 07/31/23 documented as of this encounter
--- OUTSIDE RECORDS SUMMARY | 2024-12-14 14:57 | XMS_ITS | Encounter Summary ---
Author Organization [employer] Address [address] [facility] [address] 7t [place] [address] Care Team Providers Care Child Therapist Name Role Phone Breanna Zamudio Primary Care Provider Ludmila Walker MD Unavailable [phone] Reason for Visit * Reason Onset Date Comments Med Refill 01/21/2024 Encounter Details Date Type Department Care Team (Late st Contact Info) Description 01/21/2024 Telephone [facility] MEDICINE 230 [place], [place] [phone] Breanna Zamudio ANP 230 [place], [place] [phone] Med Refill Social History Tobacco Use Types [...] immediate release tablet To be sent to: [facility] - [place], [place] - [address] [place] [address] documented in this encounter Plan of Treatment Upcoming Encounters Date Type Department Care Team ([facility] st Contact Info) Description 12/19/2024 1:00 PM EDT Office Visit [facility] MEDICINE 230 [place] [address] Breanna Zamudio ANP 230 [place] [address] 01/23/2025 2:00 PM EST Telemedicine [facility] CHC MED & PEDS 505 [place] [address] Sis Coppola, AIDA 505 [place] [address] documented as of this encounter Visit Diagnoses Not on filedocumented in this encounter Care Teams Child Therapist Relationship Specialty Start Date End Date Breanna Zamudio ANP 230 [place] [address] PCP - General Family Medicine 10/03/19 Ludmila Walker MD [address] [place] [address] 3rd [place] [address] Gastroenterology 11/22/24 [facility] 07/31/23 documented as of this encounter
[2024-12-14 15:15] LABS: E. coli EAEC Not Detected (Not Detect.); E. coli EPEC Not Detected (Not Detect.); E. coli ETEC Not Detected (Not Detect.); E. coli STEC Not Detected (Not Detect.); Shigella sp./EIEC Not Detected (Not Detect.)
== END 2024-12-13 13:42 | disposition home or self-care (01) ==
LOC: HO.LNP 13:41
PROVIDERS: Visit Provider Nurse Practitioner Family
DX: R19.7 Diarrhea, unspecified (principal)
CPT/HCPCS: 87507

== ENCOUNTER 2025-01-09 12:32 | Outpatient (AMB) | payer OTHER, SELFPAY ==
[2025-01-09 12:50] VITALS: BP 158/84; PULSE 84; O2SAT 98; BMI 33.4
--- NOTE | 2025-01-09 12:50 | MHC.OFFVIS ---
Vital Signs 01/09/25 12:50 Height 5 ft 5 in Weight 200 lb 9.93 oz BMI 33.4 BP 158/84 H Blood Pressure Location Lt brachial Position Sitting Pulse 84 Pulse Source Pulse Oximeter Pulse Oximetry (%) 98 Oxygen Delivery Method Room Air Intake Visit Reasons: asthma Arc Cutter Plasma Arc Required: Yes Arc Cutter Plasma Arc Services: Arc Cutter Plasma Arc Offered & Declined Arc Cutter Plasma Arc Name: MD speaks serbian Allergies hazelnut Allergy (Mild, Verified 01/09/25 12:53) per allergy skin test peanut Allergy (Mild, Verified 01/09/25 12:53) per allergy skin test HPI Comments Details: The patient is a 69 in a with a history of asthma/COPD. Apparently back in February she started developing increasing chest tightness coughing wheezing. She was evaluated in the ER. There she underwent a viral panel that was positive for enterovirus. She was diagnosed with enteroviral and COPD exacerbation. Patient was treated accordingly and she was discharged. More recently in March she had another episode of shortness of breath and chest tightness which she went to the ER. This time her viral panel was negative although she did have significant eosinophilia suggesting an allergic reaction. The patient is a lifelong nonsmoker. She also has diabetes. On examination she does have some wheezing. Therefore she will need maintenance therapy. Will plan to do allergy testing and pulmonary function studies. 09/29/2022 the patient is here for a pulmonary follow-up visit. The patient overall is doing well from a respiratory status. She is responding well to the Trelegy inhaler. She has a rescue inhaler that she has not required. The patient has not had any recent imaging studies. She did have blood work including allergy testing demonstrating some allergies but minimal and do not require any additional therapies at this time. The patient still having issues with a dry cough. I do believe she has an age related cough and therefore she should be switched over to an ARB. She will talk to her primary care doctor about that. But clinically the patient is doing well. We did look at her pulmonary function studies. She does have a mild restrictive ventilatory defect likely from an elevated BMI otherwise no significant findings. The patient did have a nebulizer but it broke. She does need a replacement. I will request a nebulizer from the local [employer] company at this time. 05/20/2023 the patient is here for a preop evaluation. The patient has been very well from a respiratory status. She has been using the Trelegy inhaler with good effect. Has not had to use her rescue inhaler. Back in February she was evaluated in the hospital with worsening respiratory symptoms and GI complaints. She was treated for GI inflammatory process in addition to that she did have a chest x-ray demonstrating retrocardiac airspace disease suggesting pneumonia. Her viral panel was negative for flu a COVID or RSV. The patient is treated back in February and she quickly improved. She denies any underlying residual symptoms. She is having issues with her left knee. She already had a right knee operated. She is very limited due to her left knee. She is scheduled for total knee replacement. Clinically the patient is doing very well from a respiratory status. We did look at her last PFTs from last year which demonstrated no evidence of obstruction and mild restriction likely due to her body habitus. No need for additional spirometry studies at this time. Will go ahead and repeat her chest x-ray. The patient right now be able to proceed with surgery and anesthesia from a pulmonary standpoint. 01/09/2025 the patient is here for pulmonary follow-up visit. He has been a prolonged period of time since we last saw each other. The patient had a preop evaluation for knee surgery that was back in spring. She did undergo surgery but then complicated by PE. It was during the postoperative period. She was placed on anticoagulation but then she had bleeding. She was stabilized and sent home but then her symptoms worsened again and she was taken via ambulance to [facility]. There she has been at the hospital and also rehab about 65 days for the patient is history. She has been on Eliquis. She also had a filter placement. The IVC filter was never removed. Therefore at this point is going to stay. She seems to be tolerating the Eliquis 5 mg twice a day. We did evaluate her clots that she had back in May 25 personally by me. Then she had a repeat CAT scan in June demonstrating serous still residual clots. At this point is likely that they are all gone. The patient has not had an echocardiogram. She does have lower extremity edema. [facility] Medical History (Updated 12/12/24 @ 11:01 by Lucia Whitney NP) Pulmonary embolism Asthma-COPD overlap syndrome Hypertension MGUS (monoclonal gammopathy of unknown significance) Chronic restrictive lung disease Obesity (BMI 30.0-34.9) Eosinophilia Erosive gastritis Leg edema, left Hyperparathyroidism Vitamin D deficiency Multinodular thyroid Thyroid nodule Type 2 diabetes mellitus with diabetic polyneuropathy Fibromyalgia Depression with anxiety Cervical cancer Osteoarthritis of left knee Osteopenia GERD (gastroesophageal reflux disease) Meir's disease Other specified acquired hypothyroidism Hyperlipidemia LDL goal <100 Essential hypertension Vitamin B12 deficiency Other obesity due to excess calories BMI 35.0-35.9,adult Surgical History (Updated 11/29/24 @ 13:49 by Whitney Correa MD) History of total left knee replacement Hx of elbow surgery Hx of hand surgery Hx of arthroscopic knee surgery History of cholecystectomy History of arthroplasty of right knee Hx of hysterectomy Hx of foot surgery History of bilateral carpal tunnel release Hx of bilateral oophorectomy History of esophagogastroduodenoscopy (EGD) Hx of colonoscopy Family History Father CVD (cardiovascular disease) Diabetes mellitus Stroke Mother Stroke Diabetes mellitus Breast cancer Hyperthyroidism Social History Household Members: Spouse Housing: House Housing Other:: 2nd floor-2 family house Are you a primary pet caretaker to a significant other at home: No Do you presently have visiting nurse or other home services: No Alcohol intake: never Comment: continues with camera Patient Tobacco Use Status: Never used Tobacco Advance Directives Date on File: 03/06/23 service: No 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al status: disabled 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: Right Handed Female Reproductive History Menstrual Age of Menarche: 11 Review of Systems Const Denies fatigue, Denies fever(s), Denies night sweats, Denies poor appetite and Denies weight loss ENT Reports Normal hearing present Card Denies chest pain and Reports dyspnea on exertion Resp Denies chest congestion, Reports cough, Reports dyspnea on exertion and Denies wheezing GI Reports constipation and Reports heartburn Musc Reports as per HPI, Reports arthralgias, Reports joint swelling and Reports limited range of motion Skin/Breast Denies rash Neuro Reports Normal hearing present and Denies Abnormal speech present Endo Denies fatigue Aller/Immun Denies wheezing Physical Exam Vital Signs: Last Vital Signs Pulse 84 01/09/25 12:50 BP 158/84 H 01/09/25 12:50 Pulse Ox 98 01/09/25 12:50 Oxygen Delivery Method Room Air 01/09/25 12:50 BMI result Body Mass Index 33.4 Const General: comfortable HEENT Head: Yes normocephalic and Yes atraumatic Eyes Pupils: Equal, round and reactive pupils present Neck Neck: Yes supple Chest Chest palpation & inspection: normal inspection of the chest Resp Effort & Inspection: normal respiratory effort Auscultation: no crackles, no rales, no rhonchi, no wheezes and diminished lung sounds Cardio Rate: regular rate Rhythm: regular rhythm Heart sounds: Normal, physiologic split S2 sound present GI Palpation (GI): Soft to palpation Skin General skin exam: no rashes or lesions noted Neuro Cranial nerves: Yes Equal, round and reactive pupils present and Yes Normal hearing present Speech: No Abnormal speech present Extrem General: No clubbing, No cyanosis and No edema Psych Appearance: grossly normal and well kempt Assessment & Plan Assessment & Plan (1) Asthma: Code(s): J45.909 - Unspecified asthma, uncomplicated Category: Medical Qualifiers: Asthma complication type: uncomplicated Asthma persistence: persistent Asthma severity: moderate Qualified Code(s): J45.40 - Moderate persistent asthma, uncomplicated (2) Eosinophilia: Code(s): D72.10 - Eosinophilia, unspecified Category: Medical Qualifiers: Eosinophilia type: unspecified eosinophilia Qualified Code(s): D72.10 - Eosinophilia, unspecified (3) Chronic restrictive lung disease: Code(s): J98.4 - Other disorders of lung Category: Medical (4) Pulmonary embolism: Code(s): I26.99 - Other pulmonary embolism without acute cor pulmonale Category: Medical Qualifiers: Pulmonary embolism type: unspecified Chronicity: acute Acute cor pulmonale presence: with acute cor pulmonale Qualified Code(s): I26.09 - Other pulmonary embolism with acute cor pulmonale Plan start Symbicort BRUNA as needed Benzonates as needed ECHO Melatonin for sleep F/U 6 months Orders: Orders CA echo transthoracic complete Today I27.20 - Pulmonary hypertension, unspecified Medications: New budesonide-formoterol 160-4.5 mcg/actuation (Symbicort) 2 puffs inhalation BID 10.2 grams 11RF 30 days J44.9 - Chronic obstructive pulmonary disease, unspecified albuterol sulfate 90 mcg/actuation 2 inhalations inhalation Q6H PRN 18 grams 12RF shortness of breath or wheezing 30 days J44.9 - Chronic obstructive pulmonary disease, unspecified melatonin 5 mg PO BEDTIME PRN 30 tabs 9RF sleep 30 days Discontinued njpxudpkuvk-nmhmkfqak-rayzqwpo 200-62.5-25 mcg (Trelegy Ellipta) Discontinued Reason: Doctor's Order 1 ea inhalation DAILY 60 ea 12RF Coding Level of Care Code Est Pt Level 4 (71950) Complex EM visit Add On G2211 Diagnoses Moderate persistent asthma without complication J45.40 Asthma complication type: uncomplicated Asthma persistence: persistent Asthma severity: moderate Eosinophilia, unspecified type D72.10 Eosinophilia type: unspecified eosinophilia Chronic restrictive lung disease J98.4 Acute pulmonary embolism with acute cor pulmonale, unspecified pulmonary embolism type I26.09 Pulmonary embolism type: unspecified Chronicity: acute Acute cor pulmonale presence: with acute cor pulmonale Time Spent (min) 17
--- OUTSIDE RECORDS SUMMARY | 2025-01-09 15:55 | XMS_ITS | Encounter Summary ---
Author Organization [employer] Address [address] [facility] [address] 7t [place] [address] Care Team Providers Care Talent Acquisition Coordinator Name Role Phone Breanna Zamudio Primary Care Provider [phone] Ludmila Walker MD Unavailable [phone] Reason for Visit * Reason Onset Date Comments Appointment Request 06/13/2024 Encounter Details Date Type Department Care Team ([facility] st Contact Info) Description 06/13/2024 Telephone [facility] MEDICINE 230 [place], [place] [phone] Breanna Zamudio ANP 230 [place], [place] [phone] Appointment Request Social History Tobacco Use Types [...] 2:32 PM EDT Tc from pt canceled [facility] KAY MACHINE OPERATOR appt due to being on vacation in [place] and would like to r/s after 07/08/24. documented in this encounter Plan of Treatment Upcoming Encounters Date Type Department Care Team (Late st Contact Info) Description 01/10/2025 1:00 PM EDT Clinical Support [address] [address] 01/23/2025 2:00 PM EST Telemedicine [facility] CHC MED & PEDS 505 [place] [address] Sis Coppola, RN 505 [place] [address] 02/13/2025 1:15 PM EST Office Visit [facility] MEDICINE [address] [place] [address] Breanna Zamudio ANP 230 [place] [address] documented as of this encounter Visit Diagnoses Not on filedocumented in this encounter Care Teams Talent Acquisition Coordinator Relationship Specialty Start Date End Date Breanna Zamudio ANP [address] [place] [address] PCP - General Family Medicine 10/03/19 Ludmila Walker MD [address] [place] [address] 3rd [place] [address] Gastroenterology 11/22/24 [facility] 07/31/23 documented as of this encounter
--- OUTSIDE RECORDS SUMMARY | 2025-01-09 15:55 | XMS_ITS | Encounter Summary ---
Author Organization [employer] Address 75 [facility] 7t [place] [address] Care Team Providers Care Cutter Helper Name Role Phone Breanna Zamudio Primary Care Provider Ludmila Walker MD Unavailable Reason for Visit * Reason Onset Date Comments Med Refill 02/27/2023 Encounter Details Date Type Department Care Team (Late st Contact Info) Description 02/27/2023 Telephone [facility] MEDICINE 230 [place], [place] [phone] Breanna Zamudio ANP 230 [place], [place] [phone] Med Refill Social History Tobacco Use Types [...] Description 01/10/2025 1:00 PM EDT Clinical Support [address] [address] 01/23/2025 2:00 PM EST Telemedicine [facility] MED & PEDS 505 [place], [place] [phone] Sis Coppola, RN 505 [place], [place] [phone] 02/13/2025 1:15 PM EST Office Visit [address] [address] Breanna Zamudio ANP [address] [place] [address] documented as of this encounter Visit Diagnoses Not on filedocumented in this encounter Care Teams Cutter Helper Relationship Specialty Start Date End Date Breanna Zamudio ANP [address] [place] [address] PCP - General Family Medicine 10/03/19 Ludmila Walker MD [address] [place] [address] 3rd [place] [address] Gastroenterology 11/22/24 [facility] 07/31/23 documented as of this encounter
--- OUTSIDE RECORDS SUMMARY | 2025-01-09 15:55 | XMS_ITS | Encounter Summary ---
Author Organization [employer] Address [address] [facility] [address] 7t [place] [address] Care Team Providers Care Analysis Director Name Role Phone Breanna Zamudio Primary Care Provider [phone] Ludmila Walker MD Unavailable Reason for Visit [...] her to return my call at ext [phone]. Encounter Details Date Type Department Care Team (Late st Contact Info) Description 05/06/2024 Refill [facility] CHC MED & PEDS [address] [place], [place] [phone] Breanna Zamudio ANP 230 [place], [place] [phone] Ischemic colitis (CMS/HCC) Social History Tobacco Use [...] her to return my call at ext [phone]. * Telephone Encounter - Prisca Ramos MA [...] Description 01/10/2025 1:00 PM EDT Clinical Support [address] [address] 01/23/2025 2:00 PM EST Telemedicine [facility] CHC MED & PEDS 505 [place] [address] Sis Coppola, AIDA 505 [place] [address] 02/13/2025 1:15 PM EST Office Visit [address] [address] Breanna Zamudio ANP [address] [place] [address] documented as of this encounter Visit Diagnoses Diagnosis Ischemic colitis (CMS/HCC) documented in this encounter Care Teams Analysis Director Relationship Specialty Start Date End Date Breanna Zamudio ANP [address] [place] [address] PCP - General Family Medicine 10/03/19 Ludmila Walker MD [address] [place] [address] 3rd [place] [address] Gastroenterology 11/22/24 [facility] 07/31/23 documented as of this encounter
--- OUTSIDE RECORDS SUMMARY | 2025-01-09 15:55 | XMS_ITS | Encounter Summary ---
Author Organization [employer] Address [address] [facility] [address] 7t [place] [address] Care Team Providers Care Newspaper Managing Editor Name Role Phone Breanna Zamudio Primary Care Provider [phone] Ludmila Walker MD Unavailable [phone] Encounter Details Date Type Department Care Team (Late st Contact Info) Description 08/31/2023 Telephone [facility] MEDICINE 230 [place], [place] [phone] Breanna Zamudio ANP 230 [place], [place] [phone] Social History Tobacco Use Types Packs/Day Years [...] Description 01/10/2025 1:00 PM EDT Clinical Support [address] [address] 01/23/2025 2:00 PM EST Telemedicine [facility] CHC MED & PEDS 505 [place] [address] Sis Coppola, RN 505 [place] [address] 02/13/2025 1:15 PM EST Office Visit [address] [address] Breanna Zamudio ANP [address] [place] [address] documented as of this encounter Visit Diagnoses Not on filedocumented in this encounter Care Teams Newspaper Managing Editor Relationship Specialty Start Date End Date Breanna Zamudio ANP [address] [place] [address] PCP - General Family Medicine 10/03/19 Ludmila Walker MD [address] [place] [address] Drive 3rd [place] [address] Gastroenterology 11/22/24 [facility] 07/31/23 documented as of this encounter
--- OUTSIDE RECORDS SUMMARY | 2025-01-09 15:55 | XMS_ITS | Encounter Summary ---
Author Organization [employer] Address [address] 7t [place] [address] Care Team Providers Care Foundry Helper Name Role Phone Breanna Zamudio Primary Care Provider [phone] Ludmila Walker MD Unavailable Reason for Visit * Reason Comments Med Refill Encounter Details Date Type Department Care Team (Late st Contact Info) Description 10/10/2024 Refill [facility] [address] [place], [place] [phone] Breanna Zamudio ANP [address] [place] [address] Long-term current use of opiate analgesic; Osteoarthritis [...] Description 01/10/2025 1:00 PM EDT Clinical Support [address] [address] 01/23/2025 2:00 PM EST Telemedicine [facility] 505 [place] [address] Sis Coppola, RN 505 [place] [address] 02/13/2025 1:15 PM EST Office Visit [address] [address] Breanna Zamudio ANP [address] [place] [address] documented as of this encounter Visit Diagnoses Diagnosis Long-term current use of opiate analgesic Encounter for long-term (current) use of other medications Osteoarthritis of multiple joints, unspecified osteoarthritis type Arthralgia, unspecified joint documented in this encounter Care Teams Foundry Helper Relationship Specialty Start Date End Date Breanna Zamudio ANP [address] [place] [address] PCP - General Family Medicine 10/03/19 Ludmila Walker MD [address] [place] [address] 3rd [place] [address] Gastroenterology 11/22/24 [facility] 07/31/23 documented as of this encounter
--- OUTSIDE RECORDS SUMMARY | 2025-01-09 15:55 | XMS_ITS | Encounter Summary ---
Author Organization [employer] Address [address] [facility] 7t [place] [address] Care Team Providers Care Business Objects Name Role Phone Breanna Zamudio Primary Care Provider Ludmila Walker MD Unavailable [phone] Reason for Visit * Reason Comments Med Refill Encounter Details Date Type Department Care Team (Late st Contact Info) Description 11/21/[address] [facility] MEDICINE 230 [place] [address] Breanna Zamudio ANP 230 [place] [address] Pain in unspecified joint Social History Tobacco [...] Description 01/10/2025 1:00 PM EDT Clinical Support [facility] MEDICINE 230 [place], [place] [phone] 01/23/2025 2:00 PM EST Telemedicine [facility] MED [facility] PEDS 505 [place], [place] [phone] Sis Coppola, RN 505 [place] [address] 02/13/2025 1:15 PM EST Office Visit [facility] MEDICINE [address] [place] [address] Breanna Zamudio ANP 230 [place] [address] documented as of this encounter Visit Diagnoses Diagnosis Pain in unspecified joint documented in this encounter Care Teams Business Objects Relationship Specialty Start Date End Date Breanna Zamudio ANP [address] [place] [address] PCP - General Family Medicine 10/03/19 Ludmila Walker MD [address] [place] [address] 3rd [place] [address] Gastroenterology 11/22/24 [facility] [place] [facility] 07/31/23 documented as of this encounter
--- OUTSIDE RECORDS SUMMARY | 2025-01-09 15:55 | XMS_ITS | Encounter Summary ---
Author Organization [employer] Address 75 [facility] 7t [place] [address] Care Team Providers Care Combat Rifle Crewmember Name Role Phone Breanna Zamudio Primary Care Provider [phone] Ludmila Walker MD Unavailable [phone] Reason for Visit * Reason Onset Date Comments Durable Medical Equipment 09/08/2022 Encounter Details Date Type Department Care Team (Late st Contact Info) Description 09/08/2022 Telephone [facility] MEDICINE 230 [place] [address] Breanna Zamudio ANP 230 [place] [address] Durable Medical Equipment Social History Tobacco Use [...] machines, please see notes,. Please contact at [phone] [place] * Telephone Encounter - RICARDO Caraballo - 09/19/2022 6:26 PM EDT Yes, of course. Thank you. Will place signed RX on your desk. * Telephone Encounter - Madhuri Doe - 09/18/2022 1:56 PM EDT Tc from [facility] with [facility] requesting status on nebulizer. States if script has not been sent to [facility] emergency department, fax to [facility]. FAX: [phone] Please contact [facility] at [phone] ext [phone] * Telephone Encounter - Rosalinda Rucker - 09/08/2022 3:29 PM EDT Tc from patient requesting a new script for a nebulizer machine. States current one broke. documented in this encounter Plan of Treatment Upcoming Encounters Date Type Department Care Team (Late st Contact Info) Description 01/10/2025 1:00 PM EDT Clinical Support [address] [address] 01/23/2025 2:00 PM EST Telemedicine [facility]EDS 505 [place] [address] Sis Coppola RN 505 [place] [address] 02/13/2025 1:15 PM EST Office Visit [address] [address] Breanna Zamudio ANP [address] [place] [address] documented as of this encounter Visit Diagnoses Not on filedocumented in this encounter Care Teams Combat Rifle Crewmember Relationship Specialty Start Date End Date Breanna Zamudio ANP [address] [place] [address] PCP - General Family Medicine 10/03/19 Ludmila Walker MD [address] [place] [address] Drive 3rd [place] [address] Gastroenterology 11/22/24 [facility] 07/31/23 documented as of this encounter
--- OUTSIDE RECORDS SUMMARY | 2025-01-09 15:55 | XMS_ITS | Encounter Summary ---
Author Organization [employer] Address [address] [facility] [address] 7t [place] [address] Care Team Providers Care Sap Bpc Developer Name Role Phone Breanna Zamudio Primary Care Provider [phone] Ludmila Walker MD Unavailable [phone] Encounter Details Date Type Department Care Team (Late st Contact Info) Description 08/06/2023 Telephone [facility] MEDICINE 230 [place], [place] [phone] Breanna Zamudio ANP 230 [place], [place] [phone] Social History Tobacco Use Types Packs/Day Years [...] the past 12 months, has t he [employer], gas, oil or water [employer] threatened to shut off services in your [...] Description 01/10/2025 1:00 PM EDT Clinical Support [facility] MEDICINE [address] [place] [address] 01/23/2025 2:00 PM EST Telemedicine [facility] MED & PEDS 505 [place] [address] Sis Coppola, RN 505 [place] [address] 02/13/2025 1:15 PM EST Office Visit [facility] MEDICINE [address] [place] [address] Breanna Zamudio ANP 230 [place] [address] documented as of this encounter Visit Diagnoses Not on filedocumented in this encounter Care Teams Sap Bpc Developer Relationship Specialty Start Date End Date Breanna Zamudio ANP [address] [place] [address] PCP - General Family Medicine 10/03/19 Ludmila Walker MD [address] [place] [address] Drive 3rd [place] [address] Gastroenterology 11/22/24 [facility] 07/31/23 documented as of this encounter
--- OUTSIDE RECORDS SUMMARY | 2025-01-09 15:55 | XMS_ITS | Encounter Summary ---
Author Organization [employer] Address [address] [facility] [facility] [facility] [address] 7t [place] [address] Care Team Providers Care Package Line Operator Name Role Phone Breanna Zamudio Primary Care Provider [phone] Ludmila Walker MD Unavailable [phone] Reason for Visit * Reason Comments Med Refill Encounter Details Date Type Department Care Team ([facility] st Contact Info) Description 08/24/2023 Refill [facility] MEDICINE 230 [place], [place] [phone] Breanna Zamudio ANP 230 [place], [place] [phone] Ischemic colitis ([facility]/HCC) Social History Tobacco Use Types Packs/Day Years [...] Description 01/10/2025 1:00 PM EDT Clinical Support [facility] MEDICINE [address] [place] [address] 01/23/2025 2:00 PM EST Telemedicine [facility] MED & PEDS 505 [place] [address] Sis Coppola, AIDA 505 [place] [address] 02/13/2025 1:15 PM EST Office Visit [address] [address] Breanna Zamudio ANP [address] [place] [address] documented as of this encounter Visit Diagnoses Diagnosis Ischemic colitis (CMS/HCC) documented in this encounter Care Teams Package Line Operator Relationship Specialty Start Date End Date Breanna Zamudio ANP [address] [place] [address] PCP - General Family Medicine 10/03/19 Ludmila Walker MD [address] 3rd [place] [address] Gastroenterology 11/22/24 [facility] 5/17/24 documented as of this encounter
--- OUTSIDE RECORDS SUMMARY | 2025-01-09 15:55 | XMS_ITS | Encounter Summary ---
Author Organization [employer] Address 75 [facility] 7t [place] [address] Care Team Providers Care Hair Stylist Name Role Phone Breanna Zamudio Primary Care Provider [phone] Ludmila Walker MD Unavailable [phone] Reason for Visit * Reason Comments Med Refill Encounter Details Date Type Department Care Team ([facility] st Contact Info) Description 12/05/2024 Refill [facility] MEDICINE 230 [place], [place] [phone] Breanna Zamudio ANP 230 [place], [place] [phone] Long-term current use of opiate analgesic; Osteoarthritis [...] Description 01/10/2025 1:00 PM EDT Clinical Support [address] [address] 01/23/2025 2:00 PM EST Telemedicine [facility] MED & PEDS 505 [place] [address] Sis Coppola, RN 505 [place] [address] 02/13/2025 1:15 PM EST Office Visit [facility] MEDICINE [address] [place] [address] Breanna Zamudio ANP [address] [place] [address] documented as of this encounter Visit Diagnoses Diagnosis Long-term current use of opiate analgesic Encounter for long-term (current) use of other medications Osteoarthritis of multiple joints, unspecified osteoarthritis type Arthralgia, unspecified joint documented in this encounter Care Teams Hair Stylist Relationship Specialty Start Date End Date Breanna Zamudio ANP [address] [place] [address] PCP - General Family Medicine 10/03/19 Ludmila Walker MD [address] [place] [address] Drive 3rd Floor [place] [phone] Gastroenterology 11/22/24 [facility] 07/31/23 documented as of this encounter
--- OUTSIDE RECORDS SUMMARY | 2025-01-09 15:55 | XMS_ITS | Encounter Summary ---
Author Organization [employer] Address [address] [facility] [address] 7t [place] [address] Care Team Providers Care Division Plant Engineer Name Role Phone Breanna Zamudio Primary Care Provider [phone] Ludmila Walker MD Unavailable [phone] Reason for Visit * Reason Onset Date Comments Med Refill 10/27/2023 Encounter Details Date Type Department Care Team (Late st Contact Info) Description 10/27/2023 Telephone [facility] MEDICINE 230 [place], [place] [phone] Breanna Zamudio ANP 230 [place], [place] [phone] Med Refill Social History Tobacco Use Types [...] immediate release tablet To be sent to: [facility] Pharmacy documented in this encounter Plan of Treatment Upcoming Encounters Date Type Department Care Team (Late st Contact Info) Description 01/10/2025 1:00 PM EDT Clinical Support [facility] MEDICINE [address] [place] [address] 01/23/2025 2:00 PM EST Telemedicine [facility] CHC MED & PEDS 505 [place] [address] Sis Coppola RN 505 [place] [address] 02/13/2025 1:15 PM EST Office Visit [facility] MEDICINE [address] [place] [address] Breanna Zamudio ANP 230 [place] [address] documented as of this encounter Visit Diagnoses Not on filedocumented in this encounter Care Teams Division Plant Engineer Relationship Specialty Start Date End Date Breanna Zamudio ANP 230 [place] [address] PCP - General Family Medicine 10/03/19 Ludmila Walker MD [address] [place] [address] 3rd [place] [address] Gastroenterology 11/22/24 [facility] [place] 07/31/23 documented as of this encounter
--- OUTSIDE RECORDS SUMMARY | 2025-01-09 15:55 | XMS_ITS | Encounter Summary ---
Author Organization [employer] Address [address] [facility] [address] 7t [place] [address] Care Team Providers Care Senior Online Marketing Manager Name Role Phone Breanna Zamudio Primary Care Provider [phone] Ludmila Walker MD Unavailable [phone] Reason for Visit * Reason Onset Date Comments Med Refill 03/15/2024 Encounter Details Date Type Department Care Team ([facility] st Contact Info) Description 03/15/2024 Telephone [facility] MEDICINE 230 [place], [place] [phone] Breanna Zamudio ANP 230 [place], [place] [phone] Med Refill Social History Tobacco Use Types [...] immediate release tablet To be sent to: [facility] pharmacy documented in this encounter Plan of Treatment Upcoming Encounters Date Type Department Care Team (Late st Contact Info) Description 01/10/2025 1:00 PM EDT Clinical Support [facility] MEDICINE [address] [place] [address] 01/23/2025 2:00 PM EST Telemedicine [facility] MED & PEDS 505 [place] [address] Sis Coppola, AIDA 505 [place] [address] 02/13/2025 1:15 PM EST Office Visit [facility] MEDICINE [address] [place] [address] Breanna Zamudio, RICARDO 230 [place] [address] documented as of this encounter Visit Diagnoses Not on filedocumented in this encounter Care Teams Senior Online Marketing Manager Relationship Specialty Start Date End Date Breanna Zamudio ANP [address] [place] [address] PCP - General Family Medicine 10/03/19 Ludmila Walker MD [address] [place] [address] 3rd [place] [address] Gastroenterology 11/22/24 [facility] 07/31/23 documented as of this encounter
--- OUTSIDE RECORDS SUMMARY | 2025-01-09 15:55 | XMS_ITS | Encounter Summary ---
Author Organization [employer] Address [address] [facility] [address] 7t [place] [address] Care Team Providers Care Histologist Technologist Name Role Phone Breanna Zamudio Primary Care Provider [phone] Ludmila Walker MD Unavailable [phone] Reason for Visit * Reason Comments Med Refill Encounter Details Date Type Department Care Team (Late st Contact Info) Description 04/07/2022 Refill [facility] CH[facility] MED & PEDS [address] [place], [place] [phone] Breanna Zamudio ANP 230 [place] [address] Pain in unspecified joint Social History Tobacco [...] Upcoming Encounters Date Type Department Care Team ([facility] Contact Info) Description 01/10/2025 1:00 PM EDT Clinical Support [facility] MEDICINE 230 [place] [address] 01/23/2025 2:00 PM EST Telemedicine [facility] MED & PEDS 505 [place] [address] Sis Coppola, AIDA 505 [place] [address] 02/13/2025 1:15 PM EST Office Visit [facility] MEDICINE 230 [place] [address] Breanna Zamudio ANP 230 [place] [address] documented as of this encounter Visit Diagnoses Diagnosis Pain in unspecified joint documented in this encounter Care Teams Histologist Technologist Relationship Specialty Start Date End Date Breanna Zamudio ANP 230 [place] [address] PCP - General Family Medicine 10/03/19 Ludmila Walker MD [address] [place] [address] Drive 3rd [place] [address] Gastroenterology 11/22/24 [facility] 07/31/23 documented as of this encounter
--- OUTSIDE RECORDS SUMMARY | 2025-01-09 15:55 | XMS_ITS | Encounter Summary ---
Author Organization [employer] Address [address] [facility] [address] 7t [place] [address] Care Team Providers Care Sign Language Interpreter Name Role Phone Breanna Zamudio Primary Care Provider [phone] Ludmila Walker MD Unavailable [phone] Reason for Visit * Reason Onset Date Comments Medication Question 08/11/2024 Encounter Details Date Type Department Care Team ([facility] st Contact Info) Description 08/11/2024 Telephone [facility] MEDICINE 230 [place], [place] [phone] Breanna Zamudio ANP 230 [place], [place] [phone] Medication Question Social History Tobacco Use Types [...] month. States will be leaving out of [place] on Thursday and needs all her medications. Pt will be out for more than a month. Medication: OxyCODONE (Roxicodone) 10 MG immediate release tablet [phone] Patient [phone] Pt spouse documented in this encounter Plan of Treatment Upcoming Encounters Date Type Department Care Team (Late st Contact Info) Description 01/10/2025 1:00 PM EDT Clinical Support [facility] MEDICINE [address] [place] [address] 01/23/2025 2:00 PM EST Telemedicine [facility] MED & PEDS 505 [place] [address] Sis Coppola, RN 505 [place] [address] 02/13/2025 1:15 PM EST Office Visit [facility] MEDICINE [address] [place] [address] Breanna Zamudio ANP 230 [place] [address] documented as of this encounter Visit Diagnoses Not on filedocumented in this encounter Care Teams Sign Language Interpreter Relationship Specialty Start Date End Date Breanna Zamudio ANP 230 [place] [address] PCP - General Family Medicine 10/03/19 Ludmila Walker MD [address] [place] [address] 3rd [place] [address] Gastroenterology 11/22/24 [facility] 07/31/23 documented as of this encounter
--- OUTSIDE RECORDS SUMMARY | 2025-01-09 15:55 | XMS_ITS | Encounter Summary ---
Author Organization [employer] Address [address] [facility] [address] 7t [place] [address] Care Team Providers Care Metal Annealer Name Role Phone Breanna Zamudio Primary Care Provider [phone] Ludmila Walker MD Unavailable [phone] Reason for Visit * Reason Comments Med Refill Encounter Details Date Type Department Care Team ([facility] st Contact Info) Description 08/24/2023 Refill [facility] MEDICINE 230 [place], [place] [phone] Breanna Zamudio ANP 230 [place], [place] [phone] Ischemic colitis ([facility]/HCC) Social History Tobacco Use Types Packs/Day Years [...] Description 01/10/2025 1:00 PM EDT Clinical Support [facility] MEDICINE [address] [place] [address] 01/23/2025 2:00 PM EST Telemedicine [facility] MED & PEDS 505 [place] [address] Sis Coppola, AIDA 505 [place] [address] 02/13/2025 1:15 PM EST Office Visit [address] [address] Breanna Zamudio ANP [address] [place] [address] documented as of this encounter Visit Diagnoses Diagnosis Ischemic colitis (CMS/HCC) documented in this encounter Care Teams Metal Annealer Relationship Specialty Start Date End Date Breanna Zamudio ANP [address] [place] [address] PCP - General Family Medicine 10/03/19 Ludmila Walker MD [address] 3rd [place] [address] Gastroenterology 11/22/24 [facility] 5/17/24 documented as of this encounter
--- OUTSIDE RECORDS SUMMARY | 2025-01-09 15:55 | XMS_ITS | Clinical Summary ---
Author Organization [employer] Address [address] [facility] 7t [place] [address] Care Team Providers Care Special Makeup Fx Artist Instructor Name Role Phone Robb [place] SILVA Primary Care Provider [phone] Ludmila Walker MD Unavailable [phone] Allergies No known active allergies Medications Ventolin HFA 108 (90 Base) MCG/ACT inhaler Inhale 1 puff every 4 (four) hours if needed for wheezing. Active Blood Glucose Monitoring Suppl (OneTouch Verio Flex System) w/Device kit TEST BLOOD [...] 34 UNITS SUBCUTANEOUSLY EVERY EVENING Active Lancets (Syncing.NetTouch Delica Plus Mshnlp28V) misc TEST BLOOD SUGAR TWICE DAILY Active rosuvastatin (Crestor) 40 MG tablet Take [...] ONCE A WEEK 024 Active Continuous Glucose News Assignment Editor (FreeStyle Manuelito 2 Rochert) device Use as directed 024 Active Continuous Glucose Sensor (FreeStyle Manuelito 2 Sensor) misc Every 2 weeks to monitor BG 024 [...] DAILY DIRECTED 100 each 11 025 Active sucralfate (Carafate) 1 g tabletIndication s:Gastroesophage al reflux disease without esophagitis,Hiat al hernia Take 1 tablet (1 g) by mouth before breakfast, before lunch, before evening meal, and at bedtime. 120 tablet 2 025 Active oxyCODONE (Roxicodone) 10 MG immediate release tabletIndication s:Long-term current use of opiate analgesic,Osteoa rthritis of multiple joints, unspecified osteoarthritis type,Arthralgia, unspecified joint Take 1 tablet (10 mg) by mouth every 6 (six) hours if needed for severe pain. Do not start before January 06, 2025. 120 tablet 025 2024 Active naloxone (Narcan) 4 mg/0.1 mL nasal spray Administer 1 spray (4 mg) into affected nostril(s) if needed for opioid reversal. May repeat every 2-3 minutes if needed, alternating nostrils, until medical assistance becomes available. 2 each 1 025 Active naloxone (Narcan) 4 mg/0.1 mL nasal spray FOR SUSPECTED OPIOID OVERDOSE. SPRAY 0.1mL IN ONE NOSTRIL. REPEAT IN ALTERNATE NOSTRIL 2-3 MINUTES IF NEEDED. SEEK MEDICAL ATTENTION IMMEDIATELY EVEN IF PATIENT RESPONDS. 022 2024 Discontinued(R eorder (will not trigger notification to Pharmacy)) oxyCODONE (Roxicodone) 10 MG immediate release tabletIndication s:Long-term current use of opiate analgesic,Osteoa rthritis of multiple joints, unspecified osteoarthritis type,Arthralgia, unspecified joint Take 1 tablet (10 mg) by mouth every 6 (six) hours if needed for severe pain. Do not start before December 08, 2024. 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 Walker, [facility] Tumor site: Gastric body Tumor size: [...] edema. 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 Isolation until 1/6/23 and she will be out of work [...] Encounters Date Type Department Care Team Description 01/05/2025 Telephone [facility] [address] [place] [phone] [place] Cifuentes ANP fyi 01/02/2025 Refill [facility] [address] [place], [place] [phone] Sis Coppola RN Long-term current use of opiate analgesic; Osteoarthritis of multiple joints, unspecified osteoarthritis type; Arthralgia, unspecified joint 01/02/2025 Telephone [facility] [address] [place] [phone] [place] Cifuentes ANP Med Refill 12/21/2024 Travel 12/19/2024 1:00 PM EDT Office Visit [address] [address] [place] Cifuentes ANP Gastroesophageal reflux disease without esophagitis (Primary Dx); Hyperlipidemia associated with type 2 diabetes mellitus (HCC); Hiatal hernia; Encounter for immunization; Essential hypertension; Dyslipidemia; Hypertension associated with diabetes (HCC); Proteinuria, unspecified type; Diabetic nephropathy associated with type 2 diabetes mellitus (HCC); 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) 12/19/2024 Travel 12/16/2024 Telephone [facility] [address] [place] [address] [phone] Celine Woodward [place] 12/16/2024 Telephone [facility] [address] [place] [address] [phone] [place]ia Cifuentes ANP chartprep 12/13/2024 Orders Only [facility] External Provider, [facility] 12/05/2024 Refill [facility] [address] [place] [address] [place] Cifuentes ANP Long-term current use of opiate analgesic; Osteoarthritis of multiple joints, unspecified osteoarthritis type; Arthralgia, unspecified joint 12/05/2024 Refill [facility] [address] [place] [address] Sis Coppola RN Long-term current use of opiate analgesic; Osteoarthritis of multiple joints, unspecified osteoarthritis type; Arthralgia, unspecified joint 12/05/2024 Telephone [facility] [address] [place] [address] Albania Cifuentes ANP Med Refill 11/30/2024 Refill [facility] [address] [place] [address] [place] Cifuentes ANP 11/27/2024 Refill [facility] [address] [place] [address] [place]ia Cifuentes ANP Insomnia disorder with non-sleep disorder mental comorbidity 11/24/2024 Orders Only GENERIC EXTERNAL DATA DEPARTMENT Provider, Generic External Data 11/22/2024 Results Follow-Up [facility] [address] [place] [address] [place] Cifuentes ANP Glucose, Whole Blood, Hematoxylin and Eosin Stain 11/16/2024 Orders Only GENERIC EXTERNAL DATA DEPARTMENT Provider, Generic External Data 11/09/2024 Refill [facility] [address] [place] [address] Albania Cifuentes ANP Hyperlipidemia associated with type 2 diabetes mellitus ([facility]) 11/03/2024 Refill [facility] [address] [place] [address] [place]ia Cifuentes ANP Long-term current use of opiate analgesic; Osteoarthritis of multiple joints, unspecified osteoarthritis type; Arthralgia, unspecified joint 11/01/2024 Orders Only GENERIC EXTERNAL DATA DEPARTMENT Provider, Generic External Data 10/31/2024 1:30 PM EDT Telemedicine [facility] [address] [place] [address] Sis Coppola, AIAD Long-term current use of opiate analgesic 10/31/2024 Telephone [facility] [address] [place] [address] Albania Cifuentes ANP Appointment Request 10/31/2024 Travel 10/31/2024 Refill [facility] [address] [place] [address] Albania Cifuentes ANP Hypothyroidism, unspecified type 10/28/2024 Refill [facility] [address] [place] [address] Albania Cifuentes ANP Essential hypertension 10/10/2024 Refill [facility] [address] [place] [address] Albania Cifuentes ANP Long-term current use of opiate analgesic; Osteoarthritis of multiple joints, unspecified osteoarthritis type; Arthralgia, unspecified joint 10/10/2024 Refill [facility] [address] [place] [address] Albania Cifuentes ANP Long-term current use of opiate analgesic; Osteoarthritis of multiple joints, unspecified osteoarthritis type; Arthralgia, unspecified joint from Last 3 Months Immunizations Immunization Administration Dates Next Due Hep A, Adult 11/09/2007,04/14/2006 Hep A, Unspecified 11/09/2007,04/14/2006 Hep B, Unspecified 11/09/2007,04/14/2006 Hep B, adult 11/09/2007,04/14/2006 Influenza High-dose Quadriva lent Preservative Free 11/20/2022 Influenza injectable quadriv alent preservative free 04/02/2022,03/10/2018 Influenza, High Dose Seasona l, Preservative Free 12/19/2024 Influenza, IIV3, injectable 12/22/2013 Moderna Covid-19 Vaccine [...] Sign Reading Time Taken Comments Blood Pressure 140/92 12/19/2024 1:35 PM EDT Pulse 76 12/19/2024 1:06 PM EDT Temperature 36.7 C (98 F) 12/19/2024 1:06 PM EDT Respiratory Rate 12 12/19/2024 1:06 PM EDT Oxygen Saturation 96% 12/19/2024 1:35 PM EDT Inhaled Oxygen Concentration - - Weight 90.4 kg (199 lb 4 oz) 12/19/2024 1:06 PM EDT Height 165.1 cm (5' 5 ) 12/19/2024 1:06 PM EDT Body Mass Index 33.16 12/19/2024 1:06 PM EDT Plan of Treatment Upcoming Encounters Date Type Department Care Team (Late st Contact Info) Description 01/10/2025 1:00 PM EDT Clinical Support [address] [address] 01/23/2025 2:00 PM EST Telemedicine [facility] [address] [place] [address] Sis Coppola, RN [address] [place] [address] 02/13/2025 1:15 PM EST Office Visit [facility] [address] [place] [address] [phone] [place] Cifuentes, ANP [address] [place] [address] Health Maintenance Due Date Last Done Comments [...] Vaccines (2 of 3) 11/19/2016 09/24/2016, 09/13 Lipid Panel 08/16/2023 08/15/2022, 0604/2022, 10/04/2019 Depression Screening 03/19/2024 03/19/2023, 03/19/19 SDOH Screening 03/26/2024 03/26/2023 COVID-19 Vaccine ( season) 2024 05/12/2024, 07/07/2022, 03/25/2021, Additional history exists Diabetes: Hemoglobin A1C 2025 025, 08/09/2024, 05/12/2024, Additional history exists Diabetes: Foot Exam 04/26/2025 04/26/2024 Mammogram 07/07/2025 07/07/2024, 12/07/2018 Tobacco Screening 12/19/2025 12/19/2024 DTaP/Tdap/Td Vaccines (2 - Td or Tdap) 09/24/2026 09/24/2016, 04/14/2006, 04/14/2006 Colonoscopy 12/24/2027 12/23/2022 Colorectal Cancer Screening 12/24/2027 Hepatitis A Vaccines Aged Out 11/09/2007, 11/09/2007, 04/14/2006, Additional history exists No longer eligible based on patient's age to complete this topic Pneumococcal Vaccine: 50+ Years Completed 07/07/2022, 07/26/2018, 11/09/2007 Hepatitis C Screening Completed 09/06/2024 Influenza Vaccine Completed 12/19/2024, , 04/02/2022, Additional history exists HIB Vaccines Aged Out [...] Procedure Name Priority Date/Time Associated Diagnosis Comments POCT GLYCATED HEMOGLOBIN, TOTAL Routine 12/19/2024 1:09 PM EDT Hyperlipidemia associated with type 2 diabetes mellitus (HCC) POCT GLUCOSE Routine 12/19/2024 1:08 PM EDT Hyperlipidemia associated with type 2 diabetes mellitus (HCC) CT ABDOMEN PELVIS W CONTRAST Routine 12/13/2024 [...] PANEL, GENERAL Routine 09/06/2024 12:36 PM EDT BI MAMMOGRAM SCREENING TOMOSYNTHESIS BILATERAL Routine 07/07/2024 12:21 PM EDT HM COLONOSCOPY Routine 12/23/2022 DIRECT LDL Routine 08/15/2022 12:35 PM EDT from Last 3 Months or Most Recently Relevant to Health Maintenance Results * (ABNORMAL) POCT Hgb A1c (12/19/2024 1:09 PM EDT) Hemoglobin A1C 7.0(A) 4.0 - 5.7 % QC Media Lot # [id number] Lot# Expiration Date ,139,649 Blood 12/19/2024 1:09 PM EDT us [place] Cifuentes ANP POINT OF CARE TEST ENTER/EDIT OR DERABLES Final Result * POCT Glucose (12/19/2024 1:08 PM EDT) Glucose Blood, POC 171 60 - 200 mg/dL QC Media Lot # [id number] Lot# Expiration Date 547,736 Blood Capillary blood specimen / Unknown 12/19/2024 1:08 PM EDT us [place] Cifuentes ANP POINT OF CARE TEST ENTER/EDIT OR DERABLES Final Result * CT Abdomen Pelvis w/ Contrast (12/13/2024 1:52 PM EDT) Anatomical Region Laterality Modality Body, Pelvis, Abdomen Computed T omography 12/13/2024 1:52 PM EDT Narrative 12/13/2024 2:37 PM EDT [place] [address] CT Scan Report Signed Patient: Lois Dalton MR#: [id number] 1 : 1955 Acct:[id number] Age/Sex: 69 / F ADM Date: 12/13/24 Loc: HO.CT Attending Dr: Lucia Whitney NP Ordering Physician: Lucia Whitney NP Date of Service: 12/13/24 Procedure(s): CT abdomen pelvis w IV con Accession Number(s): [id number] cc: Whitney Correa MD; [place] CIFUENTES LAWN CARE TECHNICIAN; Lucia Whitney NP Report Number: [id number]: Total DLP = 645.00 mGy-cm Reason for [...] 12/13/24 1434 DD/ 1352 TD/TT: 12/13/[address] Department: Procedure Note Donotuseinterpreter, Image - 12/13/[address] [address] [address] Scan Report Signed Patient: Arnav Dalton#: [id number] 1 : 5Acct:[id number] Age/Sex: 69 / FADM Date: 12/13/24 Loc: HO.CT Attending Dr: Lucia Whitney NP Ordering Physician: Lucia Whitney NP Date of Service: 12/13/24 Procedure(s): CT abdomen pelvis w IV con Accession Number(s): [id number] cc: Whitney Correa MD; [place] CIFUENTES NP; Lucia Whitney NP Report Number: [id number]: Total DLP = 645.00 mGy-cm Reason for [...] 12/13/24 1434 DD/ 1352 TD/TT: 12/13/[address] Department: [facility] External Provider IMG CT PROCEDURES Final Result * Hematoxylin and Eosin Stain (11/24/2024 11:28 AM EDT) Only the most recent of2 resultswithin the time period is included. 11/24/2024 11:2 8 AM EDT 11/24/2024 12:27 PM EDT [facility] - 11/28/2024 5:19 PM EDT ----- ------- Name: Lois Dalton Age/Sex: 69/F : 1955 [id number] [id number] Attend Dr: Ludmila Walker MD Re11/24/24 Status: [facility] Location: [place] Disch: ----- ------- SPEC : [id number] RECD: 11/24/24-1226 STATUS: AUDELIACatherine ROMEROIona NUM: [id number] JARED: 11/24/24-[address] [facility] [address]: Ludmila Walker MD ENTERED: 11/24/24-1236 SP TYPE: Surgical OTHR DR: [place] CIFUENTES LAWN CARE TECHNICIAN ORDERED: HE Stain/3, Gross Micro L4, IHC, [...] developed and their performance characteristics determined by [facility]. They have not been cleared or approved by the U.S. Food and Drug Administration (FDA). However, the FDA has determined that such clearance or approval is not necessary. This laboratory is certified under the Clinical Laboratory Improvement Amendments of 1988 (CLIA) as qualified to perform high complexity clinical laboratory testing. Copies To: Ludmila Walker MD [facility] [address] [place] [address] [phone] CONTINUED ON NEXT PAGE ----- ------- Name: Lois Dalton Age/Sex: 69/F : 1955 Unit#: [id number] Attend Dr: Ludmila Walker MD Re11/24/24 Status: [facility] Location: [place] Disch: ----- ------- SPEC : [id number] RECD: 11/24/24-1227 STATUS: SHIV STANLEY NUM: [id number] JARED: 11/24/24-[address] [facility] [address]: Ludmila Walker MD ENTERED: 11/24/24-1236 SP TYPE: Surgical OTHR DR: [place] CIFUENTES NP ORDERED: HE Stain/3, Gross Micro L4, IHC, Special st. 2, H. pylori, AB/PAS Copies To: (Continued) [place] CIFUENTES NP [address] [phone] ----- ------- Signed (signature on file) Hector Weaver MD 11/28/24 1719 ----- ------- END OF REPORT Generic External Data Provider LAB BLOOD ORDERAB LES Final Result Performing Organization Address [facility]/ZIP Co de Phone Number [facility] [address] [place] [phone] * pH, body fluid (11/24/2024 11:07 AM EDT) PH OF BODY FLUID 5.4 [facility] Comment:Testing performed at : [facility] [address] [place] [address] 11/24/2024 11:0 7 AM EDT 11/24/2024 11:42 AM EDT Narrative [facility] - 11/25/2024 11:31 AM EDT GASTRIC FLUID Generic External Data Provider LAB BODY FLUIDS A ND STOOLS ORDERABLES Final Result Performing Organization Address [facility]/ZIP Co de Phone Number [facility] [address] [place] [phone] * (ABNORMAL) Glucose, Whole Blood (11/24/2024 9:36 AM EDT) Only the most recent of2 resultswithin the time period is included. Glucose, Whole Blood 139(H) 60 - 115 mg/dL [facility] Comment:METER #: [id number] 11/24/2024 9:36 AM EDT 11/24/2024 9:42 AM EDT us Generic External Data Provider LAB BLOOD ORDERAB LES Final Result [facility] [address] [place] [address] [phone] * XR Knee 3 Views Left (11/03/2024 12:39 PM EDT) Anatomical Region Laterality Modality Lower Extremities, Knee Left Radiogra phic Imaging 11/03/2024 12:3 9 PM EDT Narrative 11/03/2024 1:55 PM EDT [facility] [address] [place] [address] XRay Report Signed Patient: Lois Dalton MR#: [id number] 1 : 1955 Acct:[id number] Age/Sex: 69 / F ADM Date: 11/03/24 [facility]ending Dr: Vijay Weems MD Ordering Physician: Vijay Weems MD Date of Service: 11/03/24 Procedure(s): XR knee LT 3V Accession Number(s): [id number] cc: Vijay Weems MD; [place] CIFUENTES NP [...] 11/03/24 1352 DD/ 1239 TD/TT: 11/03/[address] Department: Procedure Note Gardeniater, Image - 11/03/2024 [facility] [address] [place] [address] XRay Report Signed Patient: Arnav Dalton#: [id number] 1 : 5Acct:[id number] Age/Sex: 69 / FADM Date: 11/03/24 Loc: HO.HOSX Attending Dr: Vijay Weems MD Ordering Physician: Vijay Weems MD Date of Service: 11/03/24 Procedure(s): XR knee LT 3V Accession Number(s): [id number] cc: Vijay Weems MD; [place] CIFUENTES NP [...] 11/03/24 1352 DD/ 1239 TD/TT: 11/03/[address] Department: [facility] External Provider IMG XR PROCEDURES Final Result * (ABNORMAL) Glucose, Whole Blood (11/01/2024 12:59 PM EDT) Glucose, Whole Blood 208(H) 60 - 115 mg/dL [facility] Comment:METER #: [id number] 0Testing performed in the Endocrinology Department [address] , [address], [place]. 11/01/2024 12:5 9 PM EDT 11/01/2024 1:03 PM EDT Generic External Data Provider LAB BLOOD ORDERAB LES Final Result Performing Organization Address [facility] Co de Phone Number [facility] [address] [place] [address] [phone] * Hepatitis Panel, General (09/06/2024 12:36 PM EDT) Hepatitis A IgM Nonreactive Nonreactive [facility] Comment:IgM antibodies to MARTINEZ V not detected; does not exclude earlyacute or recovered HAV infection. ~Hepatitis B Surface Antibody NONREACTIVE Nonreactive [facility] Comment:Nonreactive: < 8.00 mIU/mL Hepatitis B Core Antibody Nonreactive Nonreactive [facility] Hepatitis C Antibody Nonreactive Nonreactive [facility] Comment:Antibodies to HCV no t detected; does not exclude early acuteHCV infection. Hepatitis B Surface Ag Negative Negative [facility] 09/06/2024 12:3 6 PM EDT 09/06/2024 12:36 PM EDT Generic External Data Provider LAB BLOOD ORDERAB LES Final Result Performing Organization Address [facility] Co de Phone Number [facility] [address] [place] [address] [phone] * BI Mammogram Screening Tomosynthesis Bilateral (07/07/2024 12:21 PM EDT) Anatomical Region Laterality Modality Breast Bilateral Mammography 07/07/2024 12:2 1 PM EDT Narrative 07/15/2024 4:34 PM EDT [facility] [address] [place] [address] [place] [address] Mammography Report Signed Patient: Lois Dalton MR#: [id number] 1 : 1955 Acct:[id number] Age/Sex: 69 / F ADM Date: 07/07/24 Loc: MAMMO Attending Dr: Albania Cifuentes NP Ordering Physician: [place]IA CIFUENTES NP Results: 1Negative Date of Service: 07/07/24 Follow Up: 1 Year From Orig ina Mammogram Procedure(s): MM tomosynthesis screening BI Accession Number(s): [id number] cc: [place] CIFUENTES NP EXAMINATION: MM SCREENING [...] for their next mammogram. Electronically signed by: tSefanie Guillory DO 07/15/2024 04:31 PM EDT Dictated By: Stefanie Guillory DO Signed By: <Electronically signed by Stefanie Guillory DO in OV> 07/15/24 1631 DD/ 1221 TD/TT: 07/07/[address] Department: Procedure Note Donotuseinterpreter, Image - 07/15/2024 [facility] [address] [place] [address] [place] [address] Mammography Report Signed Patient: Lois DaltonMR#: [id number] 1 : 5Acct:[id number] Age/Sex: 69 / FADM Date: 07/07/24 Loc: HO.MAMMO Attending Dr: Albania Cifuentes LAWN CARE TECHNICIAN Ordering Physician: [place] CIFUENTES NPResults: 1Negative Date of Service: 07/07/24Follow Up: 1 Year From Orig inal Mammogram Procedure(s): MM tomosynthesis screening BI Accession Number(s): [id number] cc: [place] CIFUENTES NP EXAMINATION: MM SCREENING [...] 07/15/24 1631 DD/ 1221 TD/TT: 07/07/[address] Department: us [place] Cifuentes ANP IMG BI PROCEDURES Final Result * (ABNORMAL) Hm Colonoscopy (12/23/2022) Colonoscopy Abnormal( A) Normal [facility] Comment:tubular adenoma 12/23/2022 us Yuni Jeffery MD HEALTH MAINTENANCE Final Result [facility] [address] [place] [phone] * Direct LDL (08/15/2022 12:35 PM EDT) LDL Direct 70 <100 mg/dL [facility] Comment:Greatly elevated Tri glycerides values (>1200 mg/dL)interfere with the dLDL assay. As no Triglyceridestesting was ordered, interpret results with caution.Desirable range <100 mg/dL for primary prevention;<70 mg/dL for patients with CHD or diabetic patientswith > or = 2 CHD risk factors.THIS TEST WAS PERFORMED AT:[employer] [place] [phone] JAIME MD 08/15/2022 12:3 5 PM EDT 08/15/2022 12:36 PM EDT [facility] External Provider LAB BLO OD ORDERABLES Final Result [facility] [address] [place] [phone] from Last 3 Months or Most Recently Relevant to Health Maintenance Insurance [facility] NURSING HOME OPTIONS (O D-SNP) [place] [id number] Care Teams Special Makeup Fx Artist Instructor Relationship Specialty Start Date End Date Albania Cifuentes ANP [address] [place] [address] [place] [address] PCP - General Family Medicine 10/03/19 Ludmila Walker MD [address] [place] [address] Drive [address] [place] [address] Gastroenterology 11/22/24 [facility] 07/31/23
--- OUTSIDE RECORDS SUMMARY | 2025-01-09 15:55 | XMS_ITS | Encounter Summary ---
Author Organization [employer] Address [address] [place] [address] Care Team Providers Care Professor Of Apologetics Name Role Phone Breanna Zamudio Primary Care Provider [phone] Ludmila Walker MD Unavailable [phone] Reason for Visit * Reason Onset Date Comments Med Refill 12/05/2024 Encounter Details Date Type Department Care Team (Late st Contact Info) Description 12/05/2024 Telephone [facility] MED[facility] [address] [place], [place] [phone] Breanna Zamudio ANP [address] [place], [place] [phone] Med Refill Social History Tobacco Use Types [...] immediate release tablet To be sent to: [facility] documented in this encounter Plan of Treatment Upcoming Encounters Date Type Department Care Team (Late st Contact Info) Description 01/10/2025 1:00 PM EDT Clinical Support [facility] [address] [place] [phone] 01/23/2025 2:00 PM EST Telemedicine [facility] [address] [place] [address] Sis Coppola, RN [address] [place] [address] 02/13/2025 1:15 PM EST Office Visit [facility] [address] [place] [phone] Breanna Zamudio, RICARDO [address] [place] [address] documented as of this encounter Visit Diagnoses Not on filedocumented in this encounter Care Teams Professor Of Apologetics Relationship Specialty Start Date End Date Breanna Zamudio ANP [address] [place] [address] PCP - General Family Medicine 10/03/19 Ludmila Walker MD [address] [place] [address] 3rd [place] [address] Gastroenterology 11/22/24 [facility] 07/31/23 documented as of this encounter
--- OUTSIDE RECORDS SUMMARY | 2025-01-09 15:55 | XMS_ITS | Encounter Summary ---
Author Organization [employer] Address [address] [facility] [facility] [address] 7t [place] [address] Care Team Providers Care Carpenters Supervisor Name Role Phone Breanna Zamudio Primary Care Provider [phone] Ludmila Walker MD Unavailable [phone] Reason for Visit * Reason Onset Date Comments Med Refill 01/02/2025 Encounter Details Date Type Department Care Team ([facility] st Contact Info) Description 01/02/2025 Telephone [facility] MEDICINE 230 [place], [place] [phone] Breanna Zamudio ANP 230 [place], [place] [phone] Med Refill Social History Tobacco Use Types [...] encounter Miscellaneous Notes * Telephone Encounter - Brittny DosS antos - 01/02/2025 8:22 AM EDT Tc from pt requesting medication refill for oxyCODONE (Roxicodone) 10 MG immediate release tablet documented in this encounter Plan of Treatment Upcoming Encounters Date Type Department Care Team (Late st Contact Info) Description 01/10/2025 1:00 PM EDT Clinical Support [address] [address] 01/23/2025 2:00 PM EST Telemedicine [facility] CHC MED & PEDS 505 [place] [address] Sis Coppola, RN 505 [place] [address] 02/13/2025 1:15 PM EST Office Visit [facility] MEDICINE [address] [place] [address] Breanna Zamudio, RICARDO 230 [place] [address] documented as of this encounter Visit Diagnoses Not on filedocumented in this encounter Care Teams Carpenters Supervisor Relationship Specialty Start Date End Date Breanna Zamudio ANP [address] [place] [address] PCP - General Family Medicine 10/03/19 Ludmila Walker MD [address] [place] [address] 3rd [place] [address] Gastroenterology 11/22/24 [facility] 07/31/23 documented as of this encounter
--- OUTSIDE RECORDS SUMMARY | 2025-01-09 15:55 | XMS_ITS | Encounter Summary ---
Author Organization [employer] Address [address] [facility] [address] 7t [place] [address] Care Team Providers Care Hydrodynamics Professor Name Role Phone Breanna Zamudio Primary Care Provider [phone] Ludmila Walker MD Unavailable [phone] Reason for Visit * Reason Onset Date Comments Med Refill 01/21/2024 Encounter Details Date Type Department Care Team (Late st Contact Info) Description 01/21/2024 Telephone [facility] MEDICINE 230 [place], [place] [phone] Breanna Zamudio ANP 230 [place], [place] [phone] Med Refill Social History Tobacco Use Types [...] immediate release tablet To be sent to: [facility] - [place], [place] - [address] [place] [address] documented in this encounter Plan of Treatment Upcoming Encounters Date Type Department Care Team ([facility] st Contact Info) Description 01/10/2025 1:00 PM EDT Clinical Support [facility] MEDICINE [address] [place] [address] 01/23/2025 2:00 PM EST Telemedicine [facility] CHC MED & PEDS 505 [place] [address] Sis Coppola, AIDA 505 [place] [address] 02/13/2025 1:15 PM EST Office Visit [facility] MEDICINE [address] [place] [address] Breanna Zamudio ANP 230 [place] [address] documented as of this encounter Visit Diagnoses Not on filedocumented in this encounter Care Teams Hydrodynamics Professor Relationship Specialty Start Date End Date Breanna Zamudio ANP [address] [place] [address] PCP - General Family Medicine 10/03/19 Ludmila Walker MD [address] [place] [address] 3rd [place] [address] Gastroenterology 11/22/24 [facility] 07/31/23 documented as of this encounter
--- OUTSIDE RECORDS SUMMARY | 2025-01-09 15:55 | XMS_ITS | Encounter Summary ---
Author Organization [employer] Address [address] [facility] [facility] [address] 7t [place] [address] Care Team Providers Care Odd Shoe Examiner Name Role Phone Breanna Zamudio Primary Care Provider [phone] Ludmila Walker MD Unavailable [phone] Reason for Visit * Reason Onset Date Comments fyi 01/05/2025 Encounter Details Date Type Department Care Team ([facility] st Contact Info) Description 01/05/2025 Telephone [facility] MEDICINE 230 [place], [place] [phone] Breanna Zamudio ANP 230 [place] [address] fyi Social History Tobacco Use Types Packs/Day Years [...] encounter Miscellaneous Notes * Telephone Encounter - Bria Redmond RN - 01/06/2025 2:43 PM EDT Return call placed to the pt VNA nurse Brianne to confirm pt recent elevated blood pressure numbers. Brianne states that she is new to the pt and the blood pressure numbers have been elevated in the 160sand 170s systolic. The pt has no chest pain but does have some bilateral lower edema around a 2+. Brianne knows that pt did recently see PCP but feels strongly that the pt should be seen for reported symptoms. RN then called the pt with S monotype mechanic #[id number] to inquire about the edema specifically and the pt did endorse bilateral swelling but denied any SOB. The pt is having difficulty ambulating.Pt has been compliant with all medications and VNA nurse assists with this as well. RN advised the pt that per PCP office note the pt should have a nurse visit to re assess blood pressure and review log. Pt agreeable to scheduling on 01/10/2025 for RN BP check and advised in regard to bilateral swelling that if symptoms worsen, pt develops SOB or increased pain to present to the [facility]. * Telephone Encounter - Stanford Lau - 01/05/2025 3:02 PM EDT Tc from Brianne Rincon at [facility] stating pt as been having elevated blood pressure 160/100 , sometimes 170's and 180's. Also sates pt has all around bilateral lower extremities 2 plus edema Contact Brianne at [phone] documented in this encounter Plan of Treatment Upcoming Encounters Date Type Department Care Team (Late st Contact Info) Description 01/10/2025 1:00 PM EDT Clinical Support [address] [address] 01/23/2025 2:00 PM EST Telemedicine [facility] CHC MED & PEDS 505 [place], [place] [phone] Sis Coppola, RN 505 [place] [address] 02/13/2025 1:15 PM EST Office Visit [facility] MEDICINE 230 [place] [address] Breanna Zamudio ANP 230 [place] [address] documented as of this encounter Visit Diagnoses Not on filedocumented in this encounter Care Teams Odd Shoe Examiner Relationship Specialty Start Date End Date Breanna Zamudio ANP [address] [place] [address] PCP - General Family Medicine 10/03/19 Ludmila Walker MD [address] [place] [address] Drive 3rd [place] [address] Gastroenterology 11/22/24 [facility] 07/31/23 documented as of this encounter
--- OUTSIDE RECORDS SUMMARY | 2025-01-09 15:55 | XMS_ITS | Encounter Summary ---
Author Organization [employer] Address [address] [facility] [facility] [address] 7t [place] [address] Care Team Providers Care Shell Freezing Machine Operator Name Role Phone Breanna Zamudio Primary Care Provider [phone] Ludmila Walker MD Unavailable [phone] Reason for Visit * Reason Onset Date Comments Med Refill 11/18/2023 Encounter Details Date Type Department Care Team (Late st Contact Info) Description 11/18/2023 Telephone [facility] MEDICINE 230 [place], [place] [phone] Breanna Zamudio ANP 230 [place], [place] [phone] Med Refill Social History Tobacco Use Types [...] immediate release tablet To be sent to: [facility] - [place], [place] - [address] [place] [address] documented in this encounter Plan of Treatment Upcoming Encounters Date Type Department Care Team ([facility] st Contact Info) Description 01/10/2025 1:00 PM EDT Clinical Support [facility] MEDICINE [address] [place] [address] 01/23/2025 2:00 PM EST Telemedicine [facility] CHC MED & PEDS 505 [place] [address] Sis Coppola, RN 505 [place] [address] 02/13/2025 1:15 PM EST Office Visit [facility] MEDICINE [address] [place] [address] Breanna Zamudio, RICARDO 230 [place] [address] documented as of this encounter Visit Diagnoses Not on filedocumented in this encounter Care Teams Shell Freezing Machine Operator Relationship Specialty Start Date End Date Breanna Zamudio ANP [address] [place] [address] PCP - General Family Medicine 10/03/19 Ludmila Walker MD [address] [place] [address] 3rd [place] [address] Gastroenterology 11/22/24 [facility] 07/31/23 documented as of this encounter
--- OUTSIDE RECORDS SUMMARY | 2025-01-09 15:55 | XMS_ITS | Encounter Summary ---
Author Organization [employer] Address [address] [facility] [address] 7t [place] [address] Care Team Providers Care Director Of Distance Learning Name Role Phone Breanna Zamudio Primary Care Provider [phone] Ludmila Walker MD Unavailable [phone] Reason for Visit * Reason Onset Date Comments FYI 08/31/2023 Encounter Details Date Type Department Care Team ([facility] st Contact Info) Description 08/31/2023 Telephone [facility] MEDICINE 230 [place], [place] [phone] Beranna Zamudio ANP 230 [place], [place] [phone] FYI Social History Tobacco Use Types Packs/Day [...] - 08/31/2023 2:36 PM EDT Tc from [facility] (Physical Therapist) with [facility] calling to inform pt is getting discharge as of today from PT services. Any questions [phone] documented in this encounter Plan of Treatment Upcoming Encounters Date Type Department Care Team (Late st Contact Info) Description 01/10/2025 1:00 PM EDT Clinical Support [facility] MEDICINE [address] [place] [address] 01/23/2025 2:00 PM EST Telemedicine [facility] CHC MED & PEDS 505 [place] [address] Sis Coppola, AIDA 505 [place] [address] 02/13/2025 1:15 PM EST Office Visit [facility] MEDICINE [address] [place] [address] Breanna Zamudio ANP [address] [address] documented as of this encounter Visit Diagnoses Not on filedocumented in this encounter Care Teams Director Of Distance Learning Relationship Specialty Start Date End Date Breanna Zamudio ANP [address] [place] [address] PCP - General Family Medicine 10/03/19 Ludmila Walker MD [address] [place] [address] 3rd [place] [address] Gastroenterology 11/22/24 [facility] 07/31/23 documented as of this encounter
--- OUTSIDE RECORDS SUMMARY | 2025-01-09 15:55 | XMS_ITS | Encounter Summary ---
Author Organization [employer] Address [address] [facility] 7t [place] [address] Care Team Providers Care Build Automation Engineer Name Role Phone Breanna Zamudio Primary Care Provider [phone] Ludmila Walker MD Unavailable [phone] Reason for Visit * Reason Comments Med Refill Encounter Details Date Type Department Care Team (Late st Contact Info) Description 12/02/2022 Refill [facility] MEDICINE 230 [place] [address] Breanna Zamudio ANP 230 [place] [address] Pain in unspecified joint Social History Tobacco [...] Description 01/10/2025 1:00 PM EDT Clinical Support [facility] MEDICINE 230 [place], [place] [phone] 01/23/2025 2:00 PM EST Telemedicine [facility] CHC MED & PEDS 505 [place], [place] [phone] Sis Coppola, RN 505 [place] [address] 02/13/2025 1:15 PM EST Office Visit [facility] MEDICINE [address] [place] [address] Breanna Zamudio ANP 230 [place] [address] documented as of this encounter Visit Diagnoses Diagnosis Pain in unspecified joint documented in this encounter Care Teams Build Automation Engineer Relationship Specialty Start Date End Date Breanna Zamudio ANP [address] [place] [address] PCP - General Family Medicine 10/03/19 Ludmila Walker MD [address] [place] [address] 3rd [place] [address] Gastroenterology 11/22/24 [facility] 07/31/23 documented as of this encounter
--- OUTSIDE RECORDS SUMMARY | 2025-01-09 15:55 | XMS_ITS | Encounter Summary ---
Author Organization [employer] Address [address] [facility] 7t [place] [address] Care Team Providers Care Knitter Mechanic Name Role Phone Breanna Zamudio Primary Care Provider [phone] Ludmila Walker MD Unavailable [phone] Encounter Details Date Type Department Care Team (Late st Contact Info) Description 03/19/2022 Orders Only [facility] MED & PEDS 505 [place] [address] Breanna Zamudio ANP 230 [place] [address] Moderate persistent asthma without complication (Primary Dx) [...] Description 01/10/2025 1:00 PM EDT Clinical Support [facility] MEDICINE [address] [place] [phone] 01/23/2025 2:00 PM EST Telemedicine [facility] MED & PEDS 505 [place] [address] Sis Coppola, RN 505 [place] [address] 02/13/2025 1:15 PM EST Office Visit [facility] MEDICINE 230 [place] [address] Breanna Zamudio ANP 230 [place] [address] documented as of this encounter Visit Diagnoses Diagnosis Moderate persistent asthma without complication- Primary documented in this encounter Care Teams Knitter Mechanic Relationship Specialty Start Date End Date Breanna Zamudio ANP 230 [place] [address] PCP - General Family Medicine 10/03/19 Ludmila Walker MD [address] [place] [address] 3rd [place] [address] Gastroenterology 11/22/24 [facility] 07/31/23 documented as of this encounter
--- OUTSIDE RECORDS SUMMARY | 2025-01-09 15:55 | XMS_ITS | Encounter Summary ---
Author Organization [employer] Address [address] [facility] [address] 7t [place] [address] Care Team Providers Care Major League Baseball Player Name Role Phone Breanna Zamudio Primary Care Provider Ludmila Walker MD Unavailable [phone] Reason for Visit * Reason Onset Date Comments Appointment Request 07/08/2024 Encounter Details Date Type Department Care Team ([facility] st Contact Info) Description 07/08/2024 Telephone [facility] MEDICINE 230 [place], [place] [phone] Breanna Zamudio ANP 230 [place], [place] [phone] Appointment Request Social History Tobacco Use Types [...] appt from 06/14/24. Pt is leaving to [place] on 07/09/24 at around 2 pm but pt was only given half of the pack for the Oxy and Spouse would like to see if anything can be done so that pt gets her full medication. Contact pt Spouse at [phone] documented in this encounter Plan of Treatment Upcoming Encounters Date Type Department Care Team (Late st Contact Info) Description 01/10/2025 1:00 PM EDT Clinical Support [facility] MEDICINE [address] [place] [address] 01/23/2025 2:00 PM EST Telemedicine [facility] CHC MED & PEDS 505 [place] [address] Sis Coppola, RN 505 [place] [address] 02/13/2025 1:15 PM EST Office Visit [facility] MEDICINE [address] [place] [address] Breanna Zamudio, ANP 230 [place] [address] documented as of this encounter Visit Diagnoses Not on filedocumented in this encounter Care Teams Major League Baseball Player Relationship Specialty Start Date End Date Breanna Zamudio ANP 230 [place] [address] PCP - General Family Medicine 10/03/19 Ludmila Walker MD [address] [place] [address] 3rd [place] [address] Gastroenterology 11/22/24 [facility] 07/31/23 documented as of this encounter
== END 2025-01-09 13:19 | disposition home or self-care (01) ==
LOC: HO.HPS 12:33
PROVIDERS: Visit Provider Hospitalist
DX: J45.40 Moderate persistent asthma, uncomplicated (principal); D72.10 Eosinophilia, unspecified; J98.4 Other disorders of lung; I26.09 Other pulmonary embolism with acute cor pulmonale
CPT/HCPCS: 99214; G2211

== ENCOUNTER → 2025-01-09 12:32 | Outpatient (BNVA) | payer OTHER, SELFPAY | PROVIDERS: Visit Provider Hospitalist | DX: J45.40 Moderate persistent asthma, uncomplicated (principal); D72.10 Eosinophilia, unspecified; J98.4 Other disorders of lung; I26.09 Other pulmonary embolism with acute cor pulmonale | CPT/HCPCS: 99212 ==

== ENCOUNTER 2025-01-30 13:10 | Outpatient (AMB) | payer OTHER, SELFPAY ==
--- NOTE | 2025-01-30 13:44 | A.OFFVIS_ITS ---
Vital Signs 01/30/25 13:49 Height 5 ft 5 in Weight 196 lb 3.382 oz BMI 32.6 BP 180/88 H Blood Pressure Location Rt brachial Position Sitting Pulse 79 Intake Visit Reasons: 4 MO F/U Intake Note: Lois presents in the office as a follow up. CC: She states that she is having issues with her stomach - nausea, sometimes vomiting, pain in the RUQ. States that she has burping a lot with lots of chest pains. Marine Architect Required: Yes Marine Architect Name: [id number] Arthur Allergies hazelnut Allergy (Mild, Verified 01/30/25 13:52) per allergy skin test peanut Allergy (Mild, Verified 01/30/25 13:52) per allergy skin test HPI HPI 4 MO F/U: Details: 69 year old female with hx of T2DM (on Insulin), hypothyroidism, COPD, hypertension, hyperlipidemia, vitamin D deficiency, hyperparathyroidism and obesity who I am seeing for f/u RECAP: I saw her for assessment for colitis as inpatient 06/06 Patient was initially admitted about 1 week prior to admission s/p L TKR. She had issues with urine retention and also had syncopal episodes with low blood pressure requiring narcan and fluids, ICU management with discovery of b/l PTE. She had noted diarrhea since surgery and worsening left sided constant aching pain 10/10 worse with eating food and relieved by taking morphine. she has some nausea, but denies vomiting. Stools are loose with small amounts of blood seen. Appetite remained poor, knee is healing nicely. Ct imaging x2 over last few days --latest one with desc and sigmoid colo mural thickening, no diverticulitis on fluid collections noted. Sigmoidoscopy: 05/2023: appearances consistent with ischemic colitis, Colonoscopy 01/05 with severe diverticulosis and removal of x 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 VITAL SIGNS:see workflow HEENT: Nonicteric sclerae, PERRLA, EOMI. Oropharynx clear. Moist mucous membranes. Conjunctivae appear well perfused. No thyroid mass. CHEST: Chest wall is nontender. HEART: Regular rate and rhythm without murmurs. LUNGS: Clear to auscultation bilaterally. ABDOMEN: Soft, positive bowel sounds, mildly tender epigastrium and left side abdomen, no organomegaly.no flank tenderness SKIN: No rash, no excessive bruising, petechiae, or purpura. NEUROLOGIC: Cranial nerves II-XII intact without motor/sensory deficit. Psych: normal affect A/P: 1/ Possible colitis -IBD, maybe segmental colitis- SCAD--was unable to take apriso as made her sick, tabs too big 2/ NET -gastric 3/ ruq pain, hx of CCY PLAN: 1/ try lialda 2/ [facility] gi for EUS 3/ try bentyl and get MRCP to r/o retained stone, debris in cbd [facility] Medical History (Updated 01/30/25 @ 14:34 by Ludmila Walker MD) Pulmonary embolism Asthma-COPD overlap syndrome Hypertension MGUS (monoclonal gammopathy of unknown significance) Chronic restrictive lung disease Obesity (BMI 30.0-34.9) Eosinophilia Erosive gastritis Leg edema, left Hyperparathyroidism Vitamin D deficiency Multinodular thyroid Thyroid nodule Type 2 diabetes mellitus with diabetic polyneuropathy Fibromyalgia Depression with anxiety Cervical cancer Osteoarthritis of left knee Osteopenia GERD (gastroesophageal reflux disease) Meir's disease Other specified acquired hypothyroidism Hyperlipidemia LDL goal <100 Essential hypertension Vitamin B12 deficiency Other obesity due to excess calories BMI 35.0-35.9,adult Surgical History (Updated 11/29/24 @ 13:49 by Whitney Correa MD) History of total left knee replacement Hx of elbow surgery Hx of hand surgery Hx of arthroscopic knee surgery History of cholecystectomy History of arthroplasty of right knee Hx of hysterectomy Hx of foot surgery History of bilateral carpal tunnel release Hx of bilateral oophorectomy History of esophagogastroduodenoscopy (EGD) Hx of colonoscopy Family History Father CVD (cardiovascular disease) Diabetes mellitus Stroke Mother Stroke Diabetes mellitus Breast cancer Hyperthyroidism Social History Household Members: Spouse Housing: House Housing Other:: 2nd floor-2 family house Are you a primary manager care management to a significant other at home: No Do you presently have visiting nurse or other home services: No Alcohol intake: never Comment: continues with camera Patient Tobacco Use Status: Never used Tobacco Advance Directives Date on File: 03/06/23 service: No 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al status: disabled 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: Right Handed Female Reproductive History Menstrual Age of Menarche: 11 Physical Exam Vital Signs: Last Vital Signs Pulse 79 01/30/25 13:49 BP 180/88 H 01/30/25 13:49 BMI result Body Mass Index 32.6 Assessment & Plan Assessment & Plan (1) RUQ pain: Code(s): R10.11 - Right upper quadrant pain Category: Medical Plan: as above Orders: Orders MR abdomen wo con Today R10.11 - Right upper quadrant pain Medications: New dicyclomine 10 mg PO TID 30 caps 0RF mesalamine (Lialda) 2.4 grams (2 x 1.2 gram) PO DAILY 112 tabs 0RF 8 weeks Discontinued mesalamine ER (Apriso) Discontinued Reason: Doctor's Order 1.5 grams (4 x 0.375 gram) PO QAM 120 caps 2RF Coding Level of Care Code Est Pt Level 4 (53454) Diagnoses RUQ pain R10.11
[2025-01-30 13:49] VITALS: BP 180/88; PULSE 79; BMI 32.6
--- OUTSIDE RECORDS SUMMARY | 2025-01-31 01:55 | XMS_ITS | Data Portability ---
Author Organization [facility] [employer] [facility], Main Office Address [address] [place] [address] Care Team Providers Care Portable Irrigation Operator Name Role Phone SANDRITA BEARDEN 1ST FLOOR OTHER [place] [facility] Primary Care Provider Assessment Encounter Date Assessment Date Assessment LastModified by Organization Details LastModified Time 08/04/2018 08/04/2018 Hgb 11.5, Hct 34.7 in hospital [facility] Not available 08/04/2018 08:51:23 Plan of [...] By Organization Details Last Modified Time 08/06/2018 [id number] Also, for PCP to evaluate whether or [...] knee joint Active 2018 SARAH MATIAS [address] [facility] [address], [address], [place], [address], [facility] [employer] 9 08:19:48 Asthma 306268685 Active 2018 SARAH MATIAS [address] , [address], [place], [address], [facility] [employer] 9 08:23:00 Gastroesophage al reflux disease without esophagitis 315467423 Active 2018 SARAH MATIAS [address], [address], [place], [address], [employer] 9 08:23:06 Essential hypertension 39743809 Active 2018 SARAH MATIAS [address], [place], [address], [facility] 9 08:23:16 Hypothyroidism 25119701 Active 2018 SARAH MATIAS [address] , [address], [place], [address], [facility] 9 08:23:25 Type 2 diabetes mellitus 27455165 Active 2018 SARAH MATIAS [address] , [address], [place], [address], [facility] 9 08:23:34 Anxiety 13182870 Active 2018 SARAH MATIAS [address] [facility], [address], [place], [address], [facility] 9 08:24:11 Hormone therapy Active 2018 SARAH MATIAS [address] , [address], [place], [address], [facility] 9 08:24:30 Chronic constipation 546146452 Active 2018 SARAH MATIAS [address] , [address], [place], [address], [facility] 9 08:25:50 Acute urinary tract infection 444969064 Active 2018 SARAH MATIAS [address], [place], [address], [facility] 9 08:26:59 Hypercholester olemia 64426145 Active 2018 SARAH MATIAS [address], [place], [address], [facility] 9 08:28:38 Depressive disorder 89321926 Active 2018 HILARIA SARAH SOMMER [address] [facility], [address], [place], [address], [employer] 9 08:42:14 Falls 581372762 Active 2018 HILARIASARAH BREWER [address], [address], [place], [address], [employer] 9 09:41:31 Gastroesophage al reflux disease 017638805 Active 2018 Eliza Garza MD [address], [address], [place], [address], [employer] 9 11:39:19 Problem Notes None recorded. Medical [...] 96 % 156/70 mm[Hg] SARAH MATIAS [address], [address], [place], [address], [employer] 9 08:17:26 Date Recorded Systolic And Diastolic Provider Name and Address Organization Details Last Updated DateTime 08/06/2018 156/70 mm[Hg] Eliza Garza MD [address] [facility] [address], [address], [place], [address], [employer] 08/06/2018 11:18:46 Social History Question Answer Notes LastModified by Organizat ion Details LastModified Time Tobacco Smoking Status Never Smoker Not Available [employer] 01/10/2020 03:13:23 Do You Have An Advance Directive? Yes FULL CODE- Use Dialysis, Nutrtition And Hydration [id number] Information not available 01/10/2020 How Much Tobacco Do You Chew? None [id number] Information not available 01/10/2020 Do You Have A Medical Power Of Insurance Marketing Rep? Yes HCP On File [id number] Information not available 01/10/2020 What Was The Date Of Your Most Recent Tobacco Screening? 08/04/2018 [id number] Information not available 01/10/2020 Sex: Unknown Functional Status Question Answer Note LastModified by Organization D etails LastModified Time What is your level of alcohol consumption? None [id number] Information not available 01/10/2020 Mental Status None recorded. Family History Nothing Reported. Medical History No medical history recorded. Gynecological HistoryNo gynecological history recorded. Obstetrics History GPAL:G 0 P 0 0 0 0 Immunizations Vaccine Type Date Status Note Provider Nam e and Address Organization Details Recorded Time Hep B, unspecified formulation 7 completed Danna Terrence [facility] 07/21/2023 15:47:49 Hep B, unspecified formulation 8 completed Danna Terrence [facility] 07/21/2023 15:47:57 Tdap 7 completed Danna Terrence [facility] 07/21/2023 15:48:12 Td(adult) unspecified formulation [address] [facility] 07/21/2023 15:48:25 Pneumococcal conjugate PCV20, polysaccharide [id number] conjugate, adjuvant, PF 3 completed Danna Terrence [facility] 07/21/2023 15:53:08 influenza, unspecified formulation 3 completed Danna Terrence [facility] 07/21/2023 16:00:43 influenza, unspecified formulation 3 completed Danna Terrence [facility] 07/21/2023 16:01:16 Hep A, unspecified formulation 7 completed Danna Terrence [facility] 07/21/2023 16:08:25 Hep A, unspecified formulation 8 completed Danna Terrence [facility] 07/21/2023 16:08:36 SARS-COV-2 (COVID-19) vaccine, UNSPECIFIED 1 completed Danna Ocampo [facility] 07/21/2023 16:11:09 SARS-COV-2 (COVID-19) vaccine, UNSPECIFIED 1 completed Danna [facility] 07/21/2023 16:11:19 SARS-COV-2 (COVID-19) vaccine, UNSPECIFIED [address] [facility] 07/21/2023 16:11:32 SARS-COV-2 (COVID-19) vaccine, UNSPECIFIED [address] [facility] 07/21/2023 16:12:34 zoster, unspecified formulation [address] [facility] 07/21/2023 16:12:52 Past Encounters Encounter ID Performer Location Encounter Start Date Encounter Closed Date Diagnosis/Indication Diagnosis SNOMED-CT Code Diagnosis ICD10 Code Diagnosis IMO Codes Diagnosis Note [id number] SARAH MATIAS [address] [address] 08/04/2018 08:13:08 08/06/2018 15:43:41 Replacement of total knee joint 931148053 Z96.651 PT/OT eval and treat for gait training and strengthen ingROM 0-120WBATl imit stair climbingno showersuse a walkerkeep aquacel dressing clean and intactoxyc odone 10 mg q 4 hrs prnultram 50 mg q 6 hrs prntylenol 650 mg q 6 hrs scheduledA SA 325 mg bid x 15 dayspost op appt with ortho on 08/11/18 Acute urin gael tract infection 727626943 N30.00 keflex 500 mg bid x 5 daysmonito r for resolution Asthma 200365010 J45.99 8 albuterol hfa 1-2 puffs q 4 hrs prnqvar 40 mcg 2 puffs bidmonitor for respirator y symptoms Gastroesop hageal reflux disease without esophagitis 268035872 K21.9 dexlansopr azole 60 mg qdmonitor for symptoms Type 2 radha betes mellitus 40027335 E11.9 trulicity 1.5 mg q weekglybur lima 1.25 mg qdlantus 28 units q pmmetformi n er 500 mg q am and 1000 mg q pmmonitor for s/s of hypo/hyper glycemia Essential hypertension 86165612 I10 lasix 20 mg qdHCTZ 50 mg qdlisinopr il 40 mg qdmetoprol ol succinate 200 mg qdverapami l er 360 mg qdmonitor b/p and pulse Hypothyroidism 68915509 E03.8 levothyrox ine 75 mcg qdmonitor TSH Hormone re placement therapy 918809878 Z79.890 estradiol 1 mg qdmonitor Anxiety 41328287 F41.1 atarax 50 mg q 6 hrs prnativan 1 mg bid prndiscuss ed risk vs benefit of ativan with patientmon itor for anxiety Depressive disorder 3544 9007 F32.89 effexor 75 mg bidtrazodo ne 50 mg q hsdiscusse d risk vs benefit of effexor and trazodone with patientmon itor moodpsych eval and treat prn Chronic constipation 236 633924 K59.09 linaclotid e 72 mg qdmonitor constipati on with opioid use Hypercholesterolemia 136 12132 E78.2 crestor 20 mg q hsmonitor labs [place] 549229658 R29.6 PT/OT eval and treatmonit or for safetyenco urage walker use [id number] [facility] [address] 08/06/2018 11:17:07 08/11/2018 09:54:55 Asthma 953633182 J45.30 Qvar 1 puff bidprovent il HFA 2 puffs q4h prn Chronic constipation 236 680086 K59.09 good bowel regimenLin zess 72 mcg daily Depressive disorder 3540 9007 F32.89 trazodone 50 mg at hsvenlafax ine ER 75 mg dailyfu psych prn Hypothyroidism 70160711 E03.8 levothyrox ine 75 mcg dailyfu as outpatient Acute urin gael tract infection 818639530 N30.00 finish course cephalexin 500 mg bidencoura ge good hydrationf u prn Type 2 radha betes mellitus 10959890 E11.9 metformin ER 1000 mg in evening and ER 500 mg in morninggly buride 1.25 mg dailyLantu s 28U dailyTruli city 1.5mg once a week continue to monitor with PCP when outpatient Essential hypertension 04831148 I10 HCTZ 50 mg dailyfuros emide 20 mg dailymetop rolol XL 200 mg dailyverap armen 360 mg dailylisin opril 40 mg dailyfor PCP to evaluate as outpatient if 2 different diuretics are needed - may be able to d/c either HCTZ or furosemide History of total knee arthroplasty 7161114682 105 Z96.651 continue PT/OTAPAP prnASA 325 mg bidoxycodo ne 10 mg q4h prntramado l 50 mg q8h prn Anxiety 46463429 F41.1 lorazepam 1 mg bid prnfu PCP Gastroesop hageal reflux disease 157852020 K21.9 Dexilant 60 mg dailyfu as outpatient Health Concerns Section Related Observation LastModified by Organization Detai ls LastModified Time None Recorded Concern Status LastModified by Organization Details LastModified Time None Recorded Advance Directives Directive Y: FULL CODE- use dialysis, nutrtition and hydration Payers Insurance Date Sequence Insurance Name Policy Number Policy Cramer Covered Member ID Cramer Member ID Guarantor Name 08/06/2018 2 [place] [facility] Lois Dalton [id number] Lois Dalton 07/21/2023 1 [facility] - DOS PRIOR TO 2022 - DUAL ELIGIBLE (MEDICARE REPLACEMENT/AD VANTAGE - HMO) Lois Dalton [id number] Lois Dalton 07/21/2023 1 [facility] - DOS ON OR AFTER 2022 - MEDICARE ADVANTAGE [place] (MEDICARE REPLACEMENT/AD VANTAGE - PPO) Lois Dalton [id number] Lois Daltno Notes Date Note Type Note Provider Name and Address Organization Details Recorded Time 9 text/html A 63 year old female being seen for a initial intake note. Patient had an elective right knee replacement at [facility] on 07/26/18. She went home with vna despite attempts to get her to go to rehab. She attempted to get up out of her chair and walker was not locked causing her to fall. She then was able to ambulate for several days then ran out of pain medication. She went to [facility] er to get pain under control. X-ray and ultrasound were negative. While in the hospital she complained of burning on urination and frequency. A urine sample was sent which was positive for a UTI. She was sent here for some short term rehab. Medical history of constipation, anxiety/depression, HTN, DM, GERD, asthma, hypercholesterolemia and hormone replacement. SARAH MATIAS [address], [address], [place], [address], [employer] 08/04/2018 09:42:29 9 text/html ROS as noted in the HPI 63 year old female admitted to [facility] 08/03/18 for rehab after TKR 07/26/18. Patient had been discharged home 07/29/18 with VNA services after TKR and fell when attempted to get up out of chair when walker was not locked causing a fall. She was able to ambulate for several days then ran out of pain medication. She went to [facility] ER to get pain under control. X-ray and ultrasound were negative. While in the hospital she complained of burning on urination and frequency. A urine sample was sent which was positive for a UTI. She was sent here for some short term rehab. Medical history of constipation, anxiety/depression, HTN, DM, GERD, asthma, hypercholesterolemia and hormone replacement. Patient has done with PT/OT here at [facility] and is now ready for discharge with VNA services at home. Advance directives: full code Eliza Garza MD [address] [place] [address], [address], [place], [address], [employer] 08/06/2018 11:52:07 OBGyn Episode No OBEpisode recorded.
--- OUTSIDE RECORDS SUMMARY | 2025-01-31 01:55 | XMS_ITS | Data Portability ---
Author Organization [email or web address] [facility] Address [address] [place] [address] Care Team Providers Care Marketing Regional Consultant Name Role Phone [facility] Referring Provider Assessment No assessment [...] Available Pentips Pen Needle 32 gauge x /32 USE DIRECTED active Not Available Not Available [...] Pulse oximetry Respiratory rate Heart rate Systolic And Diastolic Systolic And Diastolic Provider Name and Address Organization Details Last Updated DateTime 2 74 /min 99.2 [degF] 98 % 98 % 18 /min 99.2 [degF] 98 % 98 % 18 /min 74 /min 181/84 mm[Hg] 181/84 mm[Hg] Not Available [employer] - production 2 22:38:03 Social History None [...] ICD10 Code Diagnosis IMO Codes Diagnosis Note [id number] Nancy Garcia MD [address] [address] 01/11/2022 21:15:51 01/14/2022 13:03:57 Diverticulitis 869876719 K57.92 Pt recently diagnosed with diverticul itis [...] assessment and plan as documented by the toppiece chopper. I provided real time medical direction for this encounter and was immediatel y available to provide additional phone based assistance as needed. Health Concerns Section Related Observation LastModified by Organization Detai ls LastModified Time None Recorded Concern Status LastModified by Organization Details LastModified Time None Recorded Advance Directives Directive None Recorded Payers Insurance Date Sequence Insurance Name Policy Number Policy Cramer Covered Member ID Cramer Member ID Guarantor Name 06/08/2023 1 [facility] - DOS PRIOR TO 2022 - DUAL ELIGIBLE (MEDICARE REPLACEMENT/ADV ANTAGE - HMO) Lois Dalton [id number] Lois Dalton 06/08/2023 1 [facility] - DOS ON OR AFTER 2022 - DUAL ELIGIBLE - LONG TERM OPTIONS AND ONE CARE (MEDICARE REPLACEMENT/ADV ANTAGE - HMO) Lois Dalton [id number] Lois Dalton Notes Date Note Type Note Provider Name and Address Organization Details Recorded Time 01/11/2022 text/html [facility] Nursing Assessment: Chief Complaints: Abdominal Pain PMH: Hypertension, COPD/Asthma, Diabetes Allergies: No Known Comments: Family of member request [facility] visit for eval abdominal pain x 5 days eval at ED dx with diverticulitis taking antibiotics cont with pain deny fever/chills refuse ED ....................... ....................... ....................... ....................... ....................... ....................... ... Patent Drafter Note: Community Patent Drafter Shelly Ma SC6 dispatched to a [facility] for a 66 yof w/ abd pain. Upon arrival, the pt was sitting up in bed, WILHELM X4, holding her abdomen and grimacing in pain. She stated that she went to the ED recently for abd pain and was diagnosed with diverticulitis, w/ imaging. Her database marketing analyst recommended that she go to the ED. [...] as well, especially in RLQ and LLQ. C consulted; pt was advised to return to ED for pain mgmt, to ensure she did not have any abscesses, and to obtain appropriate px for swelling and pain mgmt. Red flags discussed. Partner on scene stated he could drive pt to ED, and requested not to call 911. ....................... ....................... ....................... ....................... ....................... ....................... ... Disposition: Kenroy Garcia MD [address] [facility], [place], [address], [place] 01/13/2022 09:59:42 OBGyn Episode No OBEpisode recorded.
== END 2025-01-30 14:35 | disposition home or self-care (01) ==
LOC: HO.HGI 13:11
PROVIDERS: PCP Nurse Practitioner Primary Care; Visit Provider Internal Medicine Gastroenterology
DX: R10.11 Right upper quadrant pain (principal)
CPT/HCPCS: 99214

== ENCOUNTER → 2025-01-30 13:10 | Outpatient (BNVA) | payer OTHER, SELFPAY | PROVIDERS: PCP Nurse Practitioner Primary Care; Visit Provider Internal Medicine Gastroenterology | DX: R10.11 Right upper quadrant pain (principal); R19.7 Diarrhea, unspecified | CPT/HCPCS: 99212 ==

== ENCOUNTER 2025-01-31 12:42 | Outpatient (AMB) | payer OTHER, SELFPAY ==
[2025-01-31 12:53] VITALS: BP 146/74; PULSE 80; O2SAT 96; BMI 32.9
--- NOTE | 2025-01-31 12:53 | A.OFFVIS_ITS ---
Vital Signs 01/31/25 12:53 Height 5 ft 5 in Weight 197 lb 15.602 oz BMI 32.9 BP 146/74 H Blood Pressure Location Lt brachial Position Sitting Pulse 80 Pulse Source Pulse Oximeter Pulse Oximetry (%) 96 Oxygen Delivery Method Room Air Intake Visit Reasons: Type II Diabetes Intake Note: Patient present today to follow up on Type 2 Diabetes Mellitus. Last Diabetic Eye exam: May 2024 Last Podiatry Visit: Pt does not see a boarding house cook HgA1C: 7.4% Random Glucose: 154 mg/dL It Systems Administrator Required: Yes It Systems Administrator Language: Frame Polisher Services: It Systems Administrator Present It Systems Administrator Name: Jaime [id number] Information Interpreted: non-clinical & clinical Accompanied by: ROOF TRUSS MACHINE TENDER Allergies hazelnut Allergy (Mild, Verified 01/31/25 13:01) per allergy skin test peanut Allergy (Mild, Verified 01/31/25 13:01) per allergy skin test HPI Comments Details: This is a 69-year-old female with a past medical history of nontoxic multinodular goiter, type 2 diabetes, hypothyroidism, secondary hyperparathyroidism, hypertension, hyperlipidemia , COPD and PE on chronic anticoagulation presenting for diabetes follow up. Hemoglobin A1c 7.4% 01/31/25. Reviewed CGM data for the past 2 weeks Average glucose 160 CGM active 96% G IL 7.1% Glucose variability 25.1% Very high 4% High 20% Target range 76% 0% hypoglycemia She has mild hyperglycemia mid day and occasionally late night. Current regimen: Ozempic 2 mg weekly. Metformin ER 1000 mg b.i.d. Lantus 40 units at bedtime Jardiance 25 mg q.a.m. Past medication: Actos discontinued due to lower leg edema, but she is still concerned about swelling in her legs. It is worse when her feet are down during the day. She had an echocardiogram with preserved left ventricular ejection fraction in 2023. Endorses mild neuropathy in her feet. Denies episodes of hypoglycemia since reducing her dose of Lantus. Hyperglycemia symptoms: denies Eye exam: Up-to-date The patient has hypertension, on olmesartan 40 mg, metoprolol succinate 200 mg, lisinopril 40 mg. She was advised to contact her primary care provider to ask if she is supposed to be taking both an GAGE and an Arb. I also asked her to reach out regarding prescription for a lidocaine pain patch for her back. Hyperlipidemia is treated with rosuvastatin 40 mg. ROS: Constitutional: No unexplained weight loss, fever, chills or night sweats. Eyes: No vision change Gastrointestinal: No anorexia, nausea, vomiting or diarrhea. No abdominal pain Neurologic: No headache, dizziness, syncope Skin: No rash Endocrine: No cold or heat intolerance. No polyuria or polydipsia. Physical exam: Constitutional: Alert, in no distress. Neck: Supple, Full range of motion. No lymphadenopathy. No palpable thyroid masses. Respiratory: Clear to auscultation. Cardiovascular: S1 S2 regular. No murmurs. Feet: Warm and well perfused. Intact DP pulses. No open wounds. 1+ bilateral lower extremity edema. [facility] Medical History (Updated 01/30/25 @ 14:34 by Ludmila Walker MD) Pulmonary embolism Asthma-COPD overlap syndrome Hypertension MGUS (monoclonal gammopathy of unknown significance) Chronic restrictive lung disease Obesity (BMI 30.0-34.9) Eosinophilia Erosive gastritis Leg edema, left Hyperparathyroidism Vitamin D deficiency Multinodular thyroid Thyroid nodule Type 2 diabetes mellitus with diabetic polyneuropathy Fibromyalgia Depression with anxiety Cervical cancer Osteoarthritis of left knee Osteopenia GERD (gastroesophageal reflux disease) Meir's disease Other specified acquired hypothyroidism Hyperlipidemia LDL goal <100 Essential hypertension Vitamin B12 deficiency Other obesity due to excess calories BMI 35.0-35.9,adult Surgical History History of total left knee replacement Hx of elbow surgery Hx of hand surgery Hx of arthroscopic knee surgery History of cholecystectomy History of arthroplasty of right knee Hx of hysterectomy Hx of foot surgery History of bilateral carpal tunnel release Hx of bilateral oophorectomy History of esophagogastroduodenoscopy (EGD) Hx of colonoscopy Family History Father CVD (cardiovascular disease) Diabetes mellitus Stroke Mother Stroke Diabetes mellitus Breast cancer Hyperthyroidism Social History Household Members: Spouse Housing: House Housing Other:: 2nd floor-2 family house Are you a primary healthcare manager to a significant other at home: No Do you presently have visiting nurse or other home services: No Alcohol intake: never Comment: continues with camera Patient Tobacco Use Status: Never used Tobacco Advance Directives Date on File: 03/06/23 service: No 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al status: disabled 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: Right Handed Female Reproductive History Menstrual Age of Menarche: 11 Physical Exam Vital Signs: Last Vital Signs Pulse 80 01/31/25 12:53 BP 146/74 H 01/31/25 12:53 Pulse Ox 96 01/31/25 12:53 Oxygen Delivery Method Room Air 01/31/25 12:53 BMI result Body Mass Index 32.9 Office Procedures Glucose Monitoring Details Details: See HPI 07593 - Glucose monitoring, continuous-physician I&R Procedure code (CPT) selection complete Results AMB Hemoglobin A1c AMB Hemoglobin A1c 7.4 % Last Edit by ALBIN Owens on 01/31/25 13:15 Results Reviewed Results Reviewed: Laboratory Last Values Glucose (Clinic) 154 mg/dL (60-115) H 01/31/25 13:04 Hgb A1c (Clinic) 7.4 % (4.0-6.0) H 01/31/25 13:08 Laboratory Tests 12/12/24 11:04 Creatinine 0.84 Estimated GFR > 60 AST 22 ALT 30 Assessment & Plan Assessment & Plan (1) Type 2 diabetes mellitus with diabetic polyneuropathy: Code(s): E11.42 - Type 2 diabetes mellitus with diabetic polyneuropathy Category: Medical Qualifiers: Diabetes mellitus continuous churn buttermaker insulin use: with continuous churn buttermaker use Qualified Code(s): E11.42 - Type 2 diabetes mellitus with diabetic polyneuropathy; Z79.4 - technician terminal and repeater (current) use of insulin Plan Patient has suboptimal control of type 2 diabetes despite maximum dose of Ozempic 2 mg weekly, metformin maximum dose 1000 mg twice a day, Jardiance 25 mg daily and Lantus 40 units nightly. Switch Ozempic to Mounjaro 2.5 mg weekly. We discussed the need to titrate based on efficacy and tolerability. She denies contraindications to GLP 1. Side effects reviewed. Reviewed complications of type 2 diabetes. Diabetic diet and lifestyle modifications encouraged. Recommended trial of compression stockings for lower extremity edema, elevate the legs, and she is working on weight loss. She has contacting her primary care provider regarding taking Gage and Arb, and we discussed that she may benefit from changing 1 of these medications to a diuretic, but I did not prescribe this today since her primary care provider is managing her blood pressure. Follow up in 1 month for type 2 diabetes medication review. Orders: Orders AMB Hemoglobin A1c Today E11.42 - Type 2 diabetes mellitus with diabetic polyneuropathy, Z13.9 - Encounter for screening, unspecified, Z79.4 - snf (current) use of insulin AMB Glucose Monitoring Today E11.9 - Type 2 diabetes mellitus without complications Medications: New insulin glargine (Lantus Solostar U-100 Insulin) 40 units (0.4 mL) subcut BEDTIME 15 mL 5RF empagliflozin (Jardiance) 25 mg PO QAM 90 tabs 1RF tirzepatide (Mounjaro) for 4 weeks 2.5 mg (0.5 mL) subcut QWEEK 2 mL 0RF Changed From metformin ER 1,000 mg (2 x 500 mg) PO BID 30 days 120 tabs 11RF To metformin ER 1,000 mg (2 x 500 mg) PO BID 360 tabs 1RF 90 days Discontinued semaglutide (Ozempic) Discontinued Reason: Doctor's Order 2 mg (0.75 mL) subcut QWEEK 3 mL 5RF Patient Instructions: Call primary care provider and ask if you are supposed to take Lisinopril and Olmesartan. Please ask them about pain patches for your back you mentioned. Stop Ozempic and 1 week after your last dose start Mounjaro 2.5 mg once weekly. Take this with an evening meal. We will increase this based on your response to it and any side effects. Continue Metformin 1000 mg twice daily. Continue Lantus 40 units at bedtime. Continue Jardiance 25 mg daily. Llame a garza m?dico de cabecera y preg?ntele si debe francheska Lisinopril y Olmesart?n. Preg?ntele tambi?n sobre los parches analg?sicos para el dolor de espalda que mencion?. Suspenda Ozempic y, jacqueline semana despu?s de la ?ltima dosis, comience a francheska Mounjaro 2.5 mg jacqueline vez por semana. T?domingo con la inbound customer service agent. Aumentaremos la dosis seg?n garza respuesta y cualquier efecto secundario. Contin?e con Metformina 1000 mg dos veces al d?a. Contin?e con Lantus 40 unidades antes de acostarse. Contin?e con Jardiance 25 mg al d?a. Coding Level of Care Code Est Pt Level 4 (83373) Diagnoses Type 2 diabetes mellitus with diabetic polyneuropathy, with long-term current use of insulin E11.42; Z79.4 Diabetes mellitus continuous churn buttermaker insulin use: with penitentiary use CPT Codes Details - CPT: 14646 - Glucose monitoring, continuous-physician I&R ([id number])
[2025-01-31 13:10] LABS: Glucose, Whole Blood 154 mg/dL (60-115)
--- OUTSIDE RECORDS SUMMARY | 2025-02-01 03:54 | XMS_ITS | Encounter Summary ---
Author Organization [employer] Address [address] [place] [address] Care Team Providers Care Events Director Name Role Phone Breanna Zamudio Primary Care Provider [phone] Ludmila Walker MD Unavailable [phone] Reason for Visit * Reason Onset Date Comments Med Refill 03/15/2024 Encounter Details Date Type Department Care Team ([facility] st Contact Info) Description 03/15/2024 Telephone [facility] MED[facility]INE [address] [place], [place] [phone] Breanna Zamudio ANP [address] [place], [place] [phone] Med Refill Social History Tobacco Use Types [...] immediate release tablet To be sent to: [facility] documented in this encounter Plan of Treatment Upcoming Encounters Date Type Department Care Team (Late st Contact Info) Description 02/13/2025 1:15 PM EST Office Visit [facility] [address] [place] [address] Breanna Zamudio ANP [address] [place] [address] documented as of this encounter Visit Diagnoses Not on filedocumented in this encounter Care Teams Events Director Relationship Specialty Start Date End Date Breanna Zamudio ANP [address] [place] [address] PCP - General Family Medicine 10/03/19 Ludmila Walker MD [address] [place] [address] 3rd [place] [address] Gastroenterology 11/22/24 [facility] 07/31/23 documented as of this encounter
--- OUTSIDE RECORDS SUMMARY | 2025-02-01 03:55 | XMS_ITS | Encounter Summary ---
Author Organization [employer] Address [address] [place] [address] Care Team Providers Care Director Of Events Name Role Phone Breanna Zamudio Primary Care Provider [phone] Ludmila Walker MD Unavailable [phone] Reason for Visit * Reason Onset Date Comments Med Refill 01/30/2025 Encounter Details Date Type Department Care Team ([facility] st Contact Info) Description 01/30/2025 Telephone [facility]INE [address] [place], [place] [phone] Breanna Zamudio ANP [address] [place], [place] [phone] Med Refill Social History Tobacco Use Types [...] encounter Miscellaneous Notes * Telephone Encounter - Yuri Flores - 01/30/2025 1:03 PM EST TC from pt requesting medication refill. Medications needing refill : oxyCODONE (Roxicodone) 10 MG immediate release tablet To be sent to: [facility] - [place], [place] - [address] [place] [address] documented in this encounter Plan of Treatment Upcoming Encounters Date Type Department Care Team ([facility] st Contact Info) Description 02/13/2025 1:15 PM EST Office Visit [facility] [address] [place] [address] Breanna Zamudio ANP [address] [place] [address] documented as of this encounter Goals Goal Patient Goal Type Associated Problems Recent Progress Patient-Stated? Author Help patients manage their type 2 diabetes Care Plan Help patients manage their type 2 diabetes Yuri Hair Weekly blood pressure task Care Plan Weekly blood pressure task Yuri Hair Help patients manage their type 2 diabetes Care Plan Help patients manage their type 2 diabetes Yuri Hair Patient has chronic kidney disease Care Plan Patient has chronic kidney disease Yuri Hair Weekly blood pressure task Care Plan Weekly blood pressure task No Yuri Flores Patient has chronic kidney disease Care Plan Patient has chronic kidney disease No Yuri Flores Weekly blood pressure task Care Plan Weekly blood pressure task No Hawa Manzano LPN Weekly blood pressure task Care Plan Weekly blood pressure task No Hawa Manzano LPN Patient has chronic kidney disease Care Plan Patient has chronic kidney disease No Hawa Manzano LPN Patient has chronic kidney disease Care Plan Patient has chronic kidney disease No Hawa Manzano LPN Weekly blood pressure task Care Plan Weekly blood pressure task No Sis Coppola RN Weekly blood pressure task Care Plan Weekly blood pressure task No Sis Coppola RN Patient has chronic kidney disease Care Plan Patient has chronic kidney disease No Sis Coppola RN Patient has chronic kidney disease Care Plan Patient has chronic kidney disease No Sis Coppola RN documented as of this encounter Visit Diagnoses Not on filedocumented in this encounter Additional Health Concerns Active Problems Noted Date Diagnosed Date Help patients manage their type 2 diabetes 01/30 Weekly blood pressure task 01/30/2025 Help patients manage their type 2 diabetes 01/30 Patient has chronic kidney disease 01/30/2025 Weekly blood pressure task 01/30/2025 Patient has chronic kidney disease 01/30/2025 Weekly blood pressure task 01/30/2025 Weekly blood pressure task 01/30/2025 Patient has chronic kidney disease 01/30/2025 Patient has chronic kidney disease 01/30/2025 Weekly blood pressure task 01/30/2025 Weekly blood pressure task 01/30/2025 Patient has chronic kidney disease 01/30/2025 Patient has chronic kidney disease 01/30/2025 documented as of this encounter Care Teams Director Of Events Relationship Specialty Start Date End Date Breanna Zamudio ANP [address] [place] [address] PCP - General Family Medicine 10/03/19 Ludmila Walker MD [address] [place] [address] [address] [place] [address] Gastroenterology 11/22/24 [facility] 07/31/23 documented as of this encounter
--- OUTSIDE RECORDS SUMMARY | 2025-02-01 03:55 | XMS_ITS | Encounter Summary ---
Author Organization [employer] Address [address] [place] [address] Care Team Providers Care Tombstone Carver Name Role Phone Breanna Zamudio Primary Care Provider [phone] Ludmila Walker MD Unavailable [phone] Reason for Visit * Reason Onset Date Comments Appointment Request 06/13/2024 Encounter Details Date Type Department Care Team ([facility] st Contact Info) Description 06/13/2024 Telephone [facility] MEDICINE [address] [place], [place] [phone] Breanna Zamudio ANP [address] [place], [place] [phone] Appointment Request Social History Tobacco Use Types [...] 2:32 PM EDT Tc from pt canceled CUSTOMER CONTACT SPECIALIST appt due to being on vacation in [place] and would like to r/s after 07/08/24. documented in this encounter Plan of Treatment Upcoming Encounters Date Type Department Care Team (Late st Contact Info) Description 02/13/2025 1:15 PM EST Office Visit [facility] MEDICINE [address] [place] [address] Breanna Zamudio ANP [address] [place] [address] documented as of this encounter Visit Diagnoses Not on filedocumented in this encounter Care Teams Tombstone Carver Relationship Specialty Start Date End Date Breanna Zamudio ANP [address] [place] [address] PCP - General Family Medicine 10/03/19 Ludmila Walker MD [address] [place] [address] Drive 3rd [place] [address] Gastroenterology 11/22/24 [facility] 07/31/23 documented as of this encounter
--- OUTSIDE RECORDS SUMMARY | 2025-02-01 03:55 | XMS_ITS | Encounter Summary ---
Author Organization [employer] Address [address] [place] [address] Care Team Providers Care Screwhead Stoner And Polisher Name Role Phone Robb Breanna SILVA Primary Care Provider [phone] Ludmila Walker MD Unavailable [phone] Reason for Visit * Reason Onset Date Comments Med Refill 01/30/2025 Encounter Details Date Type Department Care Team ([facility] st Contact Info) Description 01/30/2025 Refill [facility] MED [facility] PED[facility] [address] [place] [address] Sis Coppola, AIDA [address] [place] [address] Long-term current use of opiate analgesic; Osteoarthritis [...] Description 02/13/2025 1:15 PM EST Office Visit [facility] MED[facility]INE 230 [place] [address] Breanna Zamudio, ANP [address] [place] [address] documented as of this encounter Goals Goal Patient Goal Type Associated Problems Recent Progress Patient-Stated? Author Help patients manage their type 2 diabetes Care Plan Help patients manage their type 2 diabetes Yuri Hair Weekly blood pressure task Care Plan Weekly blood pressure task No Yuri Flores Help patients manage their type 2 diabetes Care Plan Help patients manage their type 2 diabetes No Yuri Flores Patient has chronic kidney [...] Care Plan Patient has chronic kidney disease Hawa Vega LPN Patient has chronic kidney disease Care [...] Arthralgia, unspecified joint documented in this encounter Additional Health Concerns Active [...] documented as of this encounter Care Teams Screwhead Stoner And Polisher Relationship Specialty Start Date End Date Breanna Zamudio ANP [address] [place] [address] PCP - General Family Medicine 10/03/19 Ludmila Walker MD [address] [place] [address] [address] [place] [address] Gastroenterology 11/22/24 [facility] 07/31/23 documented as of this encounter
--- OUTSIDE RECORDS SUMMARY | 2025-02-01 03:55 | XMS_ITS | Encounter Summary ---
Author Organization [employer] Address [address] 7[address] [place] [address] Care Team Providers Care Maintenance Millwright Name Role Phone Breanna Zamudio Primary Care Provider [phone] Ludmila Walker MD Unavailable [phone] Reason for Visit * Reason Onset [...] her to return my call at ext [phone]. Encounter Details Date Type Department Care Team (Late st Contact Info) Description 05/06/2024 Refill [facility] PEDS [address] [place], [place] [phone] Breanna Zamudio ANP [address] [place], [place] [phone] Ischemic colitis (CMS/HCC) Social History Tobacco Use [...] her to return my call at ext [phone]. * Telephone Encounter - Prisca Ramos MA [...] Description 02/13/2025 1:15 PM EST Office Visit [facility] MEDICINE [address] [place] [address] Breanna Zamudio ANP [address] [place] [address] documented as of this encounter Visit Diagnoses Diagnosis Ischemic colitis (CMS/HCC) documented in this encounter Care Teams Maintenance Millwright Relationship Specialty Start Date End Date Breanna Zamudio ANP [address] [place] [address] PCP - General Family Medicine 10/03/19 Ludmila Walker MD [address] 3rd [place] [address] Gastroenterology 11/22/24 [facility] 07/31/23 documented as of this encounter
--- OUTSIDE RECORDS SUMMARY | 2025-02-01 03:55 | XMS_ITS | Encounter Summary ---
Author Organization [employer] Address [address] [place] [address] Care Team Providers Care Pattern Grader Cutter Name Role Phone Robb Breanna SILVA Primary Care Provider [phone] Ludmila Walker MD Unavailable [phone] Reason for Visit * Reason Comments Med Refill Encounter Details Date Type Department Care Team ([facility] st Contact Info) Description 01/26/2025 Refill [facility] PEDS [address] [place], [place] [phone] Marce Gross MD [address] [place] [address] Social History Tobacco Use Types Packs/Day Years [...] Description 02/13/2025 1:15 PM EST Office Visit [facility] MEDICINE [address] [place] [address] Breanna Zamudio ANP [address] [place] [address] documented as of this encounter Visit Diagnoses Not on filedocumented in this encounter Care Teams Pattern Grader Cutter Relationship Specialty Start Date End Date Breanna Zamudio ANP [address] [place] [address] PCP - General Family Medicine 10/03/19 Ludmila Walker MD [address] 3rd [place] [address] Gastroenterology 11/22/24 [facility] [place] 07/31/23 documented as of this encounter
--- OUTSIDE RECORDS SUMMARY | 2025-02-01 03:56 | XMS_ITS | Encounter Summary ---
Author Organization [employer] Address [address] [place] [address] Care Team Providers Care Child Health Associate Name Role Phone ZamudioBreanna Primary Care Provider [phone] Ludmila Walker MD Unavailable [phone] Encounter Details Date Type Department Care Team (Late st Contact Info) Description 01/31/2025 Orders Only GENERIC EXTERNAL DATA DEPARTMENT Provider, [...] t he electric, gas, oil or water [employer] threatened to shut off services in your [...] Description 02/13/2025 1:15 PM EST Office Visit [facility] MEDICINE [address] [place] [address] Breanna Zamudio ANP [address] [place] [address] documented as of this encounter Goals Goal Patient Goal Type Associated Problems Recent Progress Patient-Stated? Author Help patients manage their type 2 diabetes Care Plan Help patients manage their type 2 diabetes No Yuri Flores Weekly blood pressure task [...] Plan Patient has chronic kidney disease No McMann, Sis, RN Patient has chronic kidney disease Care Plan Patient has chronic kidney disease No Sis Coppola RN documented as of this encounter Procedures Procedure Name Priority Date/Time Associated Diagnosis Comments GLUCOSE, WHOLE BLOOD Routine 01/31/2025 1:04 PM EST documented in this encounter Results * (ABNORMAL) Glucose, Whole Blood (01/31/2025 1:04 PM EST) Glucose, Whole Blood 154(H) 60 - 115 mg/dL [facility] Comment:METER #: [id number] Testing performed in the Endocrinology Department [address] , [address], [facility]. 01/31/2025 1:04 PM EST 01/31/2025 1:09 PM EST us Generic External Data Provider LAB BLOOD ORDERAB LES Final Result Performing Organization Address City/State/[facility] de Phone Number [facility] [address] [place] [phone] documented in this encounter Visit Diagnoses [...] documented as of this encounter Care Teams Child Health Associate Relationship Specialty Start Date End Date Breanna Zamudio ANP [address] [place] [address] PCP - General Family Medicine 10/03/19 Ludmlia Walker MD [address] [place] [address] Drive 3rd [place] [address] Gastroenterology 11/22/24 [facility] 07/31/23 documented as of this encounter
--- OUTSIDE RECORDS SUMMARY | 2025-02-01 03:56 | XMS_ITS | Encounter Summary ---
Author Organization [employer] Address [address] [facility] [address] 7t [place] [address] Care Team Providers Care Sampler Tester Name Role Phone Breanna Zamudio Primary Care Provider [phone] Ludmila Walker MD Unavailable [phone] Encounter Details Date Type Department Care Team (Late st Contact Info) Description 08/06/2023 Telephone [facility] MEDICINE 230 [place], [place] [phone] Breanna Zamudio ANP 230 [place], [place] [phone] Social History Tobacco Use Types Packs/Day Years [...] the past 12 months, has t he [employer] 911, gas, oil or water [employer] threatened to shut off services in your [...] Description 02/13/2025 1:15 PM EST Office Visit [facility] MED[facility]INE [address] [place] [address] Breanna Zamudio ANP [address] [place] [address] documented as of this encounter Visit Diagnoses Not on filedocumented in this encounter Care Teams Sampler Tester Relationship Specialty Start Date End Date Breanna Zamudio ANP [address] [place] [address] PCP - General Family Medicine 10/03/19 Ludmila Walker MD [address] [place] [address] 3rd [place] [address] Gastroenterology 11/22/24 [facility] 07/31/23 documented as of this encounter
--- OUTSIDE RECORDS SUMMARY | 2025-02-01 03:57 | XMS_ITS | Encounter Summary ---
Author Organization [employer] Address [address] [facility] [address] 7t [place] [address] Care Team Providers Care Corncob Pipes Assembler Name Role Phone Breanna Zamudio Primary Care Provider [phone] Ludmila Walker MD Unavailable [phone] Reason for Visit * Reason Onset Date Comments Medication Question 08/11/2024 Encounter Details Date Type Department Care Team ([facility] st Contact Info) Description 08/11/2024 Telephone [facility] MEDICINE 230 [place], [place] [phone] Breanna Zamudio ANP 230 [place], [place] [phone] Medication Question Social History Tobacco Use Types [...] month. States will be leaving out of [place] on Thursday and needs all her medications. Pt will be out for more than a month. Medication: OxyCODONE (Roxicodone) 10 MG immediate release tablet [phone] Patient [phone] Pt spouse documented in this encounter Plan of Treatment Upcoming Encounters Date Type Department Care Team (Late st Contact Info) Description 02/13/2025 1:15 PM EST Office Visit [facility] MEDICINE 230 [place] [address] Breanna Zamudio ANP 230 [place] [address] documented as of this encounter Visit Diagnoses Not on filedocumented in this encounter Care Teams Corncob Pipes Assembler Relationship Specialty Start Date End Date Breanna Zamudio ANP 230 [place] [address] PCP - General Family Medicine 10/03/19 Ludmila Walker MD [address] [place] [address] 3rd [place] [address] Gastroenterology 11/22/24 [facility] 07/31/23 documented as of this encounter
--- OUTSIDE RECORDS SUMMARY | 2025-02-01 03:57 | XMS_ITS | Encounter Summary ---
Author Organization [employer] Address [address] [facility] [address] 7t [place] [address] Care Team Providers Care Frame Opener Name Role Phone Breanna Zamudio Primary Care Provider [phone] Ludmila Walker MD Unavailable [phone] Reason for Visit * Reason Comments Med Refill Encounter Details Date Type Department Care Team ([facility] st Contact Info) Description 08/24/2023 Refill [facility] MED[facility]INE 230 [place], [place] [phone] Breanna Zamudio ANP 230 [place], [place] [phone] Ischemic colitis ([facility]/HCC) Social History Tobacco Use Types Packs/Day [...] Description 02/13/2025 1:15 PM EST Office Visit [facility] [address] [place] [address] Breanna Zamudio ANP 230 [place] [address] documented as of this encounter Visit Diagnoses Diagnosis Ischemic colitis (CMS/HCC) documented in this encounter Care Teams Frame Opener Relationship Specialty Start Date End Date Breanna Zamudio ANP [address] [place] [address] PCP - General Family Medicine 10/03/19 Ludmila Walker MD [address] [place] [address] Drive 3rd [place] [address] Gastroenterology 11/22/24 [facility] 07/31/23 documented as of this encounter
--- OUTSIDE RECORDS SUMMARY | 2025-02-01 03:57 | XMS_ITS | Encounter Summary ---
Author Organization [employer] Address [address] [facility] [address] 7t [place] [address] Care Team Providers Care Software Computer Specialist Name Role Phone Breanna Zamudio Primary Care Provider [phone] Ludmila Walker MD Unavailable [phone] Encounter Details Date Type Department Care Team (Late st Contact Info) Description 08/31/[address] [facility] MEDICINE 230 [place], [place] [phone] Breanna Zamudio ANP 230 [place], [place] [phone] Social History Tobacco Use Types Packs/Day Years [...] is your housing situation today? I have shreyl jordan 03/19/[address] you [...] Description 02/13/2025 1:15 PM EST Office Visit [facility] MED[facility]INE [address] [place] [address] Breanna Zamudio ANP 230 [place] [address] documented as of this encounter Visit Diagnoses Not on filedocumented in this encounter Care Teams Software Computer Specialist Relationship Specialty Start Date End Date Breanna Zamudio ANP [address] [place] [address] PCP - General Family Medicine 10/03/19 Ludmila Walker MD [address] [place] [address] Drive 3rd [place] [address] Gastroenterology 11/22/24 [facility] 07/31/23 documented as of this encounter
--- OUTSIDE RECORDS SUMMARY | 2025-02-01 03:57 | XMS_ITS | Encounter Summary ---
Author Organization [employer] Address [address] [facility] [address] 7t [place] [address] Care Team Providers Care Hoisting Pile Driving Engineer Name Role Phone Breanna Zamudio Primary Care Provider [phone] Ludmila Walker MD Unavailable [phone] Reason for Visit * Reason Comments Med Refill Encounter Details Date Type Department Care Team (Late st Contact Info) Description 10/10/2024 Refill [facility] MED & PEDS [address] [place], [place] [phone] Breanna Zamudio ANP [address] [place] [address] Long-term current use of opiate analgesic; Osteoarthritis [...] Description 02/13/2025 1:15 PM EST Office Visit [facility] MEDICINE [address] [place] [address] Breanna Zamudio ANP [address] [place] [address] documented as of this encounter Visit Diagnoses Diagnosis Long-term current use of opiate analgesic Encounter for long-term (current) use of other medications Osteoarthritis of multiple joints, unspecified osteoarthritis type Arthralgia, unspecified joint documented in this encounter Care Teams Hoisting Pile Driving Engineer Relationship Specialty Start Date End Date Breanna Zamudio ANP [address] [place] [address] PCP - General Family Medicine 10/03/19 Ludmila Walker MD [address] [place] [address] Drive 3rd [place] [address] Gastroenterology 11/22/24 [facility] 07/31/23 documented as of this encounter
--- OUTSIDE RECORDS SUMMARY | 2025-02-01 03:57 | XMS_ITS | Encounter Summary ---
Author Organization [employer] Address [address] [facility] [address] 7t [place] [address] Care Team Providers Care Rope Twisting Machine Operator Name Role Phone Breanna Zamudio Primary Care Provider [phone] Ludmila Walker MD Unavailable [phone] Reason for Visit * Reason Comments Med Refill Encounter Details Date Type Department Care Team ([facility] st Contact Info) Description 08/24/2023 Refill [facility] MEDICINE 230 [place], [place] [phone] Breanna Zamudio ANP 230 [place], [place] [phone] Ischemic colitis ([facility]/HCC) Social History Tobacco Use Types Packs/Day Years [...] Description 02/13/2025 1:15 PM EST Office Visit [facility] MEDICINE [address] [place] [address] Breanna Zamudio ANP 230 [place] [address] documented as of this encounter Visit Diagnoses Diagnosis Ischemic colitis (CMS/HCC) documented in this encounter Care Teams Rope Twisting Machine Operator Relationship Specialty Start Date End Date Breanna Zamudio ANP [address] [place] [address] PCP - General Family Medicine 10/03/19 Ludmila Walker MD [address] [place] [address] Drive 3rd [place] [address] Gastroenterology 11/22/24 [facility] 07/31/23 documented as of this encounter
--- OUTSIDE RECORDS SUMMARY | 2025-02-01 03:57 | XMS_ITS | Encounter Summary ---
Author Organization [employer] Address [address] [facility] [facility] [address] 7t [place] [address] Care Team Providers Care Rigger Apprentice Name Role Phone Breanna Zamudio Primary Care Provider [phone] Ludmila Walker MD Unavailable [phone] Reason for Visit * Reason Onset Date Comments FYI 08/31/2023 Encounter Details Date Type Department Care Team ([facility] st Contact Info) Description 08/31/2023 Telephone [facility] MEDICINE 230 [place], [place] [phone] Breanna Zamudio ANP 230 [place], [place] [phone] FYI Social History Tobacco Use Types Packs/Day [...] EDT Tc from Caroline (Physical Therapist) with [facility] calling to inform pt is getting discharge as of today from PT services. Any questions [phone] documented in this encounter Plan of Treatment Upcoming Encounters Date Type Department Care Team (Late st Contact Info) Description 02/13/2025 1:15 PM EST Office Visit [facility] MEDICINE 230 [place] [address] Breanna Zamudio ANP 230 [place] [address] documented as of this encounter Visit Diagnoses Not on filedocumented in this encounter Care Teams Rigger Apprentice Relationship Specialty Start Date End Date Breanna Zamudio ANP [address] [place] [address] PCP - General Family Medicine 10/03/19 Ludmila Walker MD [address] 3rd [place] [address] Gastroenterology 11/22/24 [facility] 07/31/23 documented as of this encounter
--- OUTSIDE RECORDS SUMMARY | 2025-02-01 03:58 | XMS_ITS | Encounter Summary ---
Author Organization [employer] Address [address] [facility] [address] 7t [place] [address] Care Team Providers Care Stakeholder Manager Name Role Phone Breanna Zamudio Primary Care Provider [phone] Ludmila Walker MD Unavailable [phone] Reason for Visit * Reason Onset Date Comments Med Refill 12/05/2024 Encounter Details Date Type Department Care Team (Late st Contact Info) Description 12/05/2024 Telephone [facility] MEDICINE 230 [place], [place] [phone] Breanna Zamudio ANP 230 [place], [place] [phone] Med Refill Social History Tobacco Use Types [...] immediate release tablet To be sent to: [facility] documented in this encounter Plan of Treatment Upcoming Encounters Date Type Department Care Team (Late st Contact Info) Description 02/13/2025 1:15 PM EST Office Visit [facility] MEDICINE 230 [place] [address] Breanna Zamudio ANP 230 [place] [address] documented as of this encounter Visit Diagnoses Not on filedocumented in this encounter Care Teams Stakeholder Manager Relationship Specialty Start Date End Date Breanna Zamudio ANP 230 [place] [address] PCP - General Family Medicine 10/03/19 Ludmila Walker MD [address] [place] [address] [place] [address] Gastroenterology 11/22/24 [facility] [place] 07/31/23 documented as of this encounter
--- OUTSIDE RECORDS SUMMARY | 2025-02-01 03:58 | XMS_ITS | Encounter Summary ---
Author Organization [employer] Address [address] [facility] [address] 7t [place] [address] Care Team Providers Care Sleep Lab Technologist Name Role Phone Breanna Zamudio Primary Care Provider [phone] Ludmila Walker MD Unavailable [phone] Reason for Visit * Reason Onset Date Comments Med Refill 11/18/2023 Encounter Details Date Type Department Care Team (Late st Contact Info) Description 11/18/2023 Telephone [facility] MEDICINE 230 [place], [place] [phone] Breanna Zamudio ANP 230 [place], [place] [phone] Med Refill Social History Tobacco Use Types [...] immediate release tablet To be sent to: [facility] - [place], [place] - [address] [place] [address] documented in this encounter Plan of Treatment Upcoming Encounters Date Type Department Care Team ([facility] st Contact Info) Description 02/13/2025 1:15 PM EST Office Visit [facility] MEDICINE 230 [place] [address] Breanna Zamudio ANP 230 [place] [address] documented as of this encounter Visit Diagnoses Not on filedocumented in this encounter Care Teams Sleep Lab Technologist Relationship Specialty Start Date End Date Breanna Zamudio ANP [address] [place] [address] PCP - General Family Medicine 10/03/19 Ludmila Walker MD [address] [place] [address] 3rd [place] [address] Gastroenterology 11/22/24 [facility] 07/31/23 documented as of this encounter
--- OUTSIDE RECORDS SUMMARY | 2025-02-01 03:58 | XMS_ITS | Encounter Summary ---
Author Organization [employer] Address [address] [facility] [address] 7t [place] [address] Care Team Providers Care Fitter/Welder Name Role Phone Breanna Zamudio Primary Care Provider [phone] Ludmila Walker MD Unavailable [phone] Reason for Visit * Reason Onset Date Comments Med Refill 10/27/2023 Encounter Details Date Type Department Care Team (Late st Contact Info) Description 10/27/2023 Telephone [facility] MEDICINE 230 [place], [place] [phone] Breanna Zamudio ANP 230 [place], [place] [phone] Med Refill Social History Tobacco Use Types [...] immediate release tablet To be sent to: [facility] documented in this encounter Plan of Treatment Upcoming Encounters Date Type Department Care Team (Late st Contact Info) Description 02/13/2025 1:15 PM EST Office Visit [facility] MEDICINE [address] [place] [address] Breanna Zamudio ANP 230 [place] [address] documented as of this encounter Visit Diagnoses Not on filedocumented in this encounter Care Teams Fitter/Welder Relationship Specialty Start Date End Date Breanna Zamudio ANP [address] [place] [address] PCP - General Family Medicine 10/03/19 Ludmila Walker MD [address] 3rd [place] [address] Gastroenterology 11/22/24 [facility] [place] 07/31/23 documented as of this encounter
--- OUTSIDE RECORDS SUMMARY | 2025-02-01 03:58 | XMS_ITS | Encounter Summary ---
Author Organization [employer] Address [address] [facility] 7t [place] [address] Care Team Providers Care Records Associate Name Role Phone Breanna Zamudio Primary Care Provider [phone] Ludmila Walker MD Unavailable [phone] Reason for Visit * Reason Comments Med Refill Encounter Details Date Type Department Care Team ([facility] st Contact Info) Description 12/05/2024 Refill [facility] MEDICINE 230 [place], [place] [phone] Breanna Zamudio ANP 230 [place] [address] Long-term current use of opiate analgesic; Osteoarthritis [...] 02/13/2025 1:15 PM EST Office Visit [facility] MEDICINE [address] [place] [address] Breanna Zamudio ANP [address] [place] [address] documented as of this encounter Visit Diagnoses Diagnosis Long-term current use of opiate analgesic Encounter for long-term (current) use of other medications Osteoarthritis of multiple joints, unspecified osteoarthritis type Arthralgia, unspecified joint documented in this encounter Care Teams Records Associate Relationship Specialty Start Date End Date Breanna Zamudio ANP [address] [place] [address] PCP - General Family Medicine 10/03/19 Ludmila Walker MD [address] [place] [address] 3rd [place] [address] Gastroenterology 11/22/24 [facility] 07/31/23 documented as of this encounter
--- OUTSIDE RECORDS SUMMARY | 2025-02-01 03:59 | XMS_ITS | Encounter Summary ---
Author Organization [employer] Address [address] [facility] 7t [place] [address] Care Team Providers Care Cut Off Machine Unloader Name Role Phone Breanna Zamudio Primary Care Provider [phone] Ludmila Walker MD Unavailable [phone] Reason for Visit * Reason Onset Date Comments Durable Medical Equipment 09/08/2022 Encounter Details Date Type Department Care Team (Late st Contact Info) Description 09/08/2022 Telephone [facility] MEDICINE 230 [place] [address] Breanna Zamudio ANP 230 [place] [address] Durable Medical Equipment Social History Tobacco Use [...] machines, please see notes,. Please contact at [phone] Danish * Telephone Encounter - RICARDO Caraballo - 09/19/2022 6:26 PM EDT Yes, of course. Thank you. Will place signed RX on your desk. * Telephone Encounter - Madhuri Doe - 09/18/2022 1:56 PM EDT Tc from [facility] requesting status on nebulizer. States if script has not been sent to [place] [facility], fax to [facility]. FAX: [phone] Please contact [facility] at [phone] ext [phone] * Telephone Encounter - Rosalinda Rucker - 09/08/2022 3:29 PM EDT Tc from patient requesting a new script for a nebulizer machine. States current one broke. documented in this encounter Plan of Treatment Upcoming Encounters Date Type Department Care Team (Late st Contact Info) Description 02/13/2025 1:15 PM EST Office Visit [facility] MEDICINE 230 [place] [address] Breanna Zamudio ANP 230 [place] [address] documented as of this encounter Visit Diagnoses Not on filedocumented in this encounter Care Teams Cut Off Machine Unloader Relationship Specialty Start Date End Date Breanna Zamudio ANP 230 [place] [address] PCP - General Family Medicine 10/03/19 Ludmila Walker MD [address] [place] [address] 3rd [place] [address] Gastroenterology 11/22/24 [facility] 07/31/23 documented as of this encounter
--- OUTSIDE RECORDS SUMMARY | 2025-02-01 03:59 | XMS_ITS | Encounter Summary ---
Author Organization [employer] Address [address] [facility] [address] 7t [place] [address] Care Team Providers Care Corporate Tutor Name Role Phone Breanna Zamudio Primary Care Provider [phone] Ludmila Walker MD Unavailable [phone] Reason for Visit * Reason Comments Med Refill Encounter Details Date Type Department Care Team ([facility] Contact Info) Description 04/07/2022 Refill [facility] MED & PEDS [address] [place], [place] [phone] Breanna Zamudio ANP 230 [place], [place] [phone] Pain in unspecified joint Social History Tobacco [...] Upcoming Encounters Date Type Department Care Team ([facility] Contact Info) Description 02/13/2025 1:15 PM EST Office Visit [facility] MEDICINE 230 [place] [address] Breanna Zamudio ANP 230 [place] [address] documented as of this encounter Visit Diagnoses Diagnosis Pain in unspecified joint documented in this encounter Care Teams Corporate Tutor Relationship Specialty Start Date End Date Breanna Zamudio ANP 230 [place] [address] PCP - General Family Medicine 10/03/19 Ludmila Walker MD [address] [place] [address] 3rd [place] [address] Gastroenterology 11/22/24 [facility] 07/31/23 documented as of this encounter
--- OUTSIDE RECORDS SUMMARY | 2025-02-01 03:59 | XMS_ITS | Encounter Summary ---
Author Organization [employer] Address [address] [facility] 7t [place] [address] Care Team Providers Care Hop Strainer Name Role Phone Breanna Zamudio Primary Care Provider [phone] Ludmila Walker MD Unavailable [phone] Encounter Details Date Type Department Care Team (Late st Contact Info) Description 03/19/2022 Orders Only [facility] CHC MED & PEDS [address] [place], [place] [phone] Breanna Zamudio ANP 230 [place] [address] Moderate persistent asthma without complication (Primary Dx) [...] Description 02/13/2025 1:15 PM EST Office Visit [facility] MEDICINE 230 [place], [place] [phone] Breanna Zamudio ANP 230 [place] [address] documented as of this encounter Visit Diagnoses Diagnosis Moderate persistent asthma without complication- Primary documented in this encounter Care Teams Hop Strainer Relationship Specialty Start Date End Date Breanna Zamudio ANP 230 [place] [address] PCP - General Family Medicine 10/03/19 Ludmila Walker MD [address] [place] [address] Drive 3rd [place] [address] Gastroenterology 11/22/24 [facility] 07/31/23 documented as of this encounter
--- OUTSIDE RECORDS SUMMARY | 2025-02-01 03:59 | XMS_ITS | Clinical Summary ---
Author Organization [employer] Address [address] [facility] 7[address] [place] [address] Care Team Providers Care Retail Cosmetics Sales Counter Manager Name Role Phone Robb [place] SILVA Primary Care Provider [phone] Ludmila Walker MD Unavailable [phone] Allergies No known active allergies Medications [...] 34 UNITS SUBCUTANEOUSLY EVERY EVENING Active Lancets (BirdDogTouch Delica Plus [id number]) misc TEST BLOOD SUGAR TWICE DAILY Active [...] ONCE A WEEK 024 Active Continuous Glucose Store Host (FreeStyle Manuelito 2 Catherine) device Use as directed 024 Active Continuous [...] AT BEDTIME 60 tablet 2 025 Active albuterol 0.63 MG/3ML nebulizer solutionIndicati [...] meal, and at bedtime. 120 tablet 2 02/01/20 25 12:25 PM EST 025 Active venlafaxine XR (Effexor XR) 150 MG 24 hr capsuleIndicatio ns:Mixed anxiety and depressive disorder TAKE 1 CAPSULE BY MOUTH DAILY WITH 75 MG CAPSULE. DO NOT BREAK, CRUSH, DISSOLVE OR CHEW 90 capsule 1 025 Active venlafaxine XR (Effexor XR) 75 MG 24 hr capsuleIndicatio ns:Mixed anxiety and depressive disorder TAKE 1 CAPSULE BY MOUTH DAILY WITH 150 MG CAPSULE. DO NOT BREAK, CRUSH, DISSOLVE OR CHEW 90 capsule 1 025 Active naloxone (Narcan) 4 mg/0.1 mL nasal spray FOR SUSPECTED OPIOID OVERDOSE. SPRAY 0.1mL IN ONE NOSTRIL. REPEAT IN ALTERNATE NOSTRIL 2-3 MINUTES IF NEEDED. SEEK MEDICAL ATTENTION IMMEDIATELY EVEN IF PATIENT RESPONDS. 2 each 1 025 Active oxyCODONE (Roxicodone) 10 MG immediate release tabletIndication s:Long-term current use of opiate analgesic,Osteoa rthritis of multiple joints, unspecified osteoarthritis type,Arthralgia, unspecified joint Take 1 tablet (10 mg) by mouth every 6 (six) hours if needed for severe pain for up to 7 days. 28 tablet 025 2024 Active venlafaxine XR (Effexor XR) 150 MG 24 hr capsuleIndicatio ns:Mixed anxiety and depressive disorder Take 1 capsule once daily with 75mg capsule. Do not crush or chew. 90 capsule 1 025 2024 Discontinued venlafaxine XR (Effexor XR) 75 MG 24 hr capsuleIndicatio ns:Mixed anxiety and depressive disorder Take 1 capsule once daily with 150mg capsule. Do not crush or chew. 90 capsule 1 025 2024 Discontinued oxyCODONE (Roxicodone) 10 MG immediate release tabletIndication s:Long-term current use of opiate analgesic,Osteoa rthritis of multiple joints, unspecified osteoarthritis type,Arthralgia, unspecified joint Take 1 tablet (10 mg) by mouth every 6 (six) hours if needed for severe pain. Do not start before January 06, 2025. 120 tablet 025 2024 Discontinued(R eorder (will not trigger notification to Pharmacy)) naloxone (Narcan) 4 mg/0.1 mL nasal spray Administer 1 spray (4 mg) into affected nostril(s) if needed for opioid reversal. May repeat every 2-3 minutes if needed, alternating nostrils, until medical assistance becomes available. 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 Walker, [facility] GI Tumor site: Gastric body Tumor size: [...] edema. 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 Neuropathic pain 07/04/2022 Hyperparathyroidism 11/22/2021 Osteopenia 11/22/2021 Gastroesophageal reflux disease without esophagi tis 01/26/2015 Hyperlipidemia associated with type 2 diabetes m lelaitus 01/26/2015 Insomnia disorder with non-s leep disorder [...] AM EST): Rx Paxlovid x 5 days, [place] interactions module checked, she will hold Crestor [...] Encounters Date Type Department Care Team Description 01/31/2025 Orders Only GENERIC EXTERNAL DATA DEPARTMENT Provider, Generic External Data 01/30/2025 Refill [facility] [address] [place] [address] Sis Coppola, AIDA Long-term current use of opiate analgesic; Osteoarthritis of multiple joints, unspecified osteoarthritis type; Arthralgia, unspecified joint 01/30/2025 Telephone [facility] MEDICINE [address] [place] [address] [place] Cifuentes ANP Med Refill 01/26/2025 Refill [facility] [address] [place] [address] Marce Gross MD 01/23/2025 Telephone [facility] [address] [place] [address] Sis Coppola RN 01/23/2025 Travel 01/11/2025 Refill [facility] MEDICINE [address] [place] [address] [place] Cifuentes ANP Mixed anxiety and depressive disorder 01/05/2025 Telephone [facility] MEDICINE [address] [place] [address] [place] Cifuentes ANP fyi 01/02/2025 Refill [facility] [address] [place] [address] Sis Coppola, RN Long-term current use of opiate analgesic; Osteoarthritis of multiple joints, unspecified osteoarthritis type; Arthralgia, unspecified joint 01/02/2025 Telephone [facility] MEDICINE [address] [place] [address] [place] Cifuentes ANP Med Refill 12/21/2024 Travel 12/19/2024 1:00 PM EDT Office Visit [address] [address] [place] Cifuentes ANP Gastroesophageal reflux disease without esophagitis (Primary Dx); Hyperlipidemia associated with type 2 diabetes mellitus (HCC); Hiatal hernia; Encounter for immunization; Essential hypertension; Dyslipidemia; Hypertension associated with diabetes (HCC); Proteinuria, unspecified type; Diabetic nephropathy associated with type 2 diabetes mellitus (HCC); 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) 12/19/2024 Travel 12/16/2024 Telephone [facility]ALK[facility] [address] [place] [address] [place], [place] 12/16/2024 Telephone [facility] MEDICINE [address] [place] [address] [place] Cifuentes ANP chartprep 12/13/2024 Orders Only [facility] External Provider, [facility] 12/05/2024 Refill [facility] MEDICINE [address] [place] [address] [place] Cifuentes ANP Long-term current use of opiate analgesic; Osteoarthritis of multiple joints, unspecified osteoarthritis type; Arthralgia, unspecified joint 12/05/2024 Refill [facility] [address] [place] [address] Sis Coppola, RN Long-term current use of opiate analgesic; Osteoarthritis of multiple joints, unspecified osteoarthritis type; Arthralgia, unspecified joint 12/05/2024 Telephone [facility] MEDICINE [address] [place] [address] [place] Cifuentes ANP Med Refill 11/30/2024 Refill [facility] MEDICINE [address] [place] [address] [place] Cifuentes ANP 11/27/2024 Refill [facility] MED[facility]INE [address] [place] [address] [place] Cifuentes ANP Insomnia disorder with non-sleep disorder mental comorbidity 11/24/2024 Orders Only GENERIC EXTERNAL DATA DEPARTMENT Provider, Generic External Data 11/22/2024 Results Follow-Up [facility]ICINE [address] [place] [address] [place] Cifuentes ANP Glucose, Whole Blood, Hematoxylin and Eosin Stain 11/16/2024 Orders Only GENERIC EXTERNAL DATA DEPARTMENT Provider, Generic External Data 11/09/2024 Refill [facility] MEDICINE [address] [place] [address] [place] Cifuentes ANP Hyperlipidemia associated with type 2 diabetes mellitus ([facility]) 11/03/2024 Refill [facility] MED[facility] [address] [place] [address] [place] Cifuentes ANP Long-term current use of [...] Description 02/13/2025 1:15 PM EST Office Visit [facility] MEDICINE [address] [place] [address] [place]ia Cifuentes, ANP [address] [place], [place] [phone] Health Maintenance Due Date Last Done Comments CT Colonography 1955 FIT DNA/Cologuard 1955 FIT 1955 FOBT 1955 Sigmoidoscopy 1955 Eye Exam 1964 Alcohol/Substance Use Screening 1966 RSV Patients and Patients Aged 60 years or older (1 - Risk 50-74 years 1-dose series) 2004 Hepatitis B Vaccines (3 of 3 - 19+ 3-dose series) 01/04/2008 11/09/2007, 11/09/2007, 04/14/2006, Additional history exists Zoster Vaccines (2 of 3) 11/19/2016 09/24/2016, 09/13 Lipid Panel 08/16/2023 08/15/2022, 06/0 04/2022, 10/04/2019 [...] on patient's age to complete this topic Goals Goal Patient Goal Type Associated Problems Recent Progress Patient-Stated? Author Help patients manage their type 2 diabetes Care Plan Help patients manage their type 2 diabetes Yuri Hair Weekly blood pressure task Care Plan Weekly blood pressure task Yuri Hair Help patients manage their type 2 diabetes Care Plan Help patients manage their type 2 diabetes No Mark Yuri Patient has chronic kidney disease Care Plan Patient has chronic kidney disease No Yuri Flores Weekly blood pressure task Care Plan Weekly blood pressure task No Mark Yuri Patient has chronic kidney disease Care Plan [...] chronic kidney disease No Sis Coppola RN Procedures Procedure Name Priority Date/Time Associated Diagnosis Comments GLUCOSE, WHOLE BLOOD Routine 01/31/2025 1:04 PM EST POCT GLYCATED HEMOGLOBIN, TOTAL Routine 12/19/2024 1:09 [...] Maintenance Results * (ABNORMAL) Glucose, Whole Blood (01/31/2025 1:04 PM EST) Only the most recent of2 resultswithin the time period is included. Glucose, Whole Blood 154(H) 60 - 115 mg/dL [facility] Comment:METER #: [id number] Testing performed in the Endocrinology Department [address] , [address], [facility]. 01/31/2025 1:04 PM EST 01/31/2025 1:09 PM EST us Generic External Data Provider LAB BLOOD ORDERAB LES Final Result [facility] [address] [place] [address] [phone] * (ABNORMAL) POCT Hgb A1c (12/19/2024 1:09 PM EDT) Hemoglobin A1C 7.0(A) 4.0 - 5.7 % QC Media Lot # [id number] Lot# Expiration Date Blood 12/19/2024 1:09 PM EDT us [place] Cifuentes ANP POINT OF CARE TEST ENTER/EDIT OR DERABLES Final Result * POCT Glucose (12/19/2024 1:08 PM EDT) Glucose Blood, POC 171 60 - 200 mg/dL QC Media Lot # [id number] Lot# Expiration Date ,400,995 Blood Capillary blood specimen / Unknown 12/19/2024 1:08 PM EDT [place] Cifuentes ANP POINT OF CARE TEST ENTER/EDIT OR DERABLES Final Result * CT Abdomen Pelvis w/ Contrast (12/13/2024 1:52 PM EDT) Anatomical Region Laterality Modality Body, Pelvis, Abdomen Computed T omography 12/13/2024 1:52 PM EDT Narrative 12/13/2024 2:37 PM EDT [place] [address] [address] Scan Report Signed Patient: Lois Dalton MR#: [id number] 1 : 1955 Acct:[id number] Age/Sex: 69 / F ADM Date: 12/13/24 Loc: HO.CT Attending Dr: Lucia Whitney NP Ordering Physician: Lucia Whitney NP Date of Service: 12/13/24 Procedure(s): CT abdomen pelvis w IV con Accession Number(s): [id number] cc: Whitney Correa MD; [place] CIFUENTES NP; Lucia Whitney NP Report Number: [id number]: Total DLP = 645.00 mGy-cm Reason for [...] 12/13/24 1434 DD/ 1352 TD/TT: 12/13/24 1428 Vp Hr Diversity: Procedure Note Donotuseinterpreter, Image - 12/13/[address] [address] [address] Scan Report Signed Patient: Arnav Dalton#: [id number] 1 : 5Acct:[id number] Age/Sex: 69 / FADM Date: 12/13/24 Loc: HO.CT Attending Dr: Lucia Whitney NP Ordering Physician: Lucia Whitney NP Date of Service: 12/13/24 Procedure(s): CT abdomen pelvis w IV con Accession Number(s): [id number] cc: Whitney Correa MD; [place] CIFUENTES NP; Lucia Whitney NP Report Number: [id number]: Total DLP = 645.00 mGy-cm Reason for [...] 12/13/24 1434 DD/ 1352 TD/TT: 12/13/24 1428 Vp Hr Diversity: [facility] External Provider IMG CT PROCEDURES Final Result * Hematoxylin and Eosin Stain (11/24/2024 11:28 AM EDT) Only the most recent of2 resultswithin the time period is included. 11/24/2024 11:2 8 AM EDT 11/24/2024 12:27 PM EDT [facility] - 11/28/2024 5:19 PM EDT ----- ------- Name: Lois Dalton Age/Sex: 69/F : 1955 [id number]#: [id number] Attend Dr: Ludmila Walker MD Re11/24/24 Status: [facility] Location: [facility] Disch: ----- ------- SPEC : [id number] RECD: 11/24/24-1226 STATUS: SHIV STANLEY NUM: [id number] JARED: 11/24/24-[address]: Ludmila Walker MD ENTERED: 11/24/24-1235 SP TYPE: Surgical OTHR DR: [place] CIFUENTES FUNERAL CAR DRIVER ORDERED: HE Stain/3, Gross Micro L4, IHC, [...] developed and their performance characteristics determined by [facility]. They have not been cleared or approved by the U.S. Food and Drug Administration (FDA). However, the FDA has determined that such clearance or approval is not necessary. This laboratory is certified under the Clinical Laboratory Improvement Amendments of 1988 (CLIA) as qualified to perform high complexity clinical laboratory testing. Copies To: Ludmila Walker MD [facility] [address] [place] [address] [id number] CONTINUED ON NEXT PAGE ----- ------- Name: Lois Dalton Age/Sex: 69/F : 1955 Unit#: [id number] Attend Dr: Ludmila Walker MD Re11/24/24 Status: [facility] Location: [facility] Disch: ----- ------- SPEC : [id number] RECD: 11/24/24-7 STATUS: SHIV STANLEY NUM: [id number] JARED: 11/24/24-8 [facility] DR: Ludmila Walker MD ENTERED: 11/24/24-1236 SP TYPE: Surgical OTHR DR: [place] CIFUENTES NP ORDERED: HE Stain/3, Gross Micro L4, IHC, Special st. 2, H. pylori, AB/PAS Copies To: (Continued) [place] CIFUENTES NP [address] [phone] ----- ------- Signed (signature on file) Hector Weaver MD 11/28/24 1719 ----- ------- END OF REPORT Generic External Data Provider LAB BLOOD ORDERAB LES Final Result Performing Organization Address [facility]/ZIP Co de Phone Number [facility] [address] [place] [phone] * pH, body fluid (11/24/2024 11:07 AM EDT) PH OF BODY FLUID 5.4 [facility] Comment:Testing performed at : [facility] [address] [place] [phone] 11/24/2024 11:0 7 AM EDT 11/24/2024 11:42 AM EDT Narrative [facility] - 11/25/2024 11:31 AM EDT GASTRIC FLUID Generic External Data Provider LAB BODY FLUIDS A ND STOOLS ORDERABLES Final Result Performing Organization Address [facility]/ZIP Co de Phone Number [facility] [address] [place] [address] [phone] * (ABNORMAL) Glucose, Whole Blood (11/24/2024 9:36 AM EDT) Only the most recent of2 resultswithin the time period is included. Glucose, Whole Blood 139(H) 60 - 115 mg/dL [facility] Comment:METER #: [id number] 11/24/2024 9:36 AM EDT 11/24/2024 9:42 AM EDT us Generic External Data Provider LAB BLOOD ORDERAB LES Final Result [facility] [address] [place] [address] [phone] * XR Knee 3 Views Left (11/03/2024 12:39 PM EDT) Anatomical Region Laterality Modality Lower Extremities, Knee Left Radiogra phic Imaging 11/03/2024 12:3 9 PM EDT Narrative 11/03/2024 1:55 PM EDT [facility] [address] [place] [address] XRay Report Signed Patient: Lois Dalton MR#: [id number] 1 : 1955 Acct:[id number] Age/Sex: 69 / F ADM Date: 11/03/24 Loc: JORDANA Attending Dr: Vijay Weems MD Ordering Physician: Vijay Weems MD Date of Service: 11/03/24 Procedure(s): XR knee LT 3V Accession Number(s): [id number] cc: Vijay Weems MD; [place] CIFUENTES NP [...] 11/03/24 1352 DD/ 1239 TD/TT: 11/03/24 1345 Vp Hr Diversity: Procedure Note Gardeniater, Image - 11/03/2024 [facility] [address] [place] [address] XRay Report Signed Patient: Arnav Dalton#: [id number] 1 : 5Acct:[id number] Age/Sex: 69 / FADM Date: 11/03/24 Loc: HO.HOSX Attending Dr: Vijay Weems MD Ordering Physician: Vijay Weems MD Date of Service: 11/03/24 Procedure(s): XR knee LT 3V Accession Number(s): [id number] cc: Vijay Weems MD; [place] CIFUENTES NP [...] 11/03/24 1352 DD/ 1239 TD/TT: 11/03/24 1345 Vp Hr Diversity: [facility] External Provider IMG XR PROCEDURES Final Result * Hepatitis Panel, General (09/06/2024 12:36 PM EDT) Hepatitis A IgM Nonreactive Nonreactive [facility] Comment:IgM antibodies to MARTINEZ V not detected; does not exclude earlyacute or recovered HAV infection. ~Hepatitis B Surface Antibody NONREACTIVE Nonreactive [facility] Comment:Nonreactive: < 8.00 mIU/mL Hepatitis B Core Antibody Nonreactive Nonreactive [facility] Hepatitis C Antibody Nonreactive Nonreactive [facility] Comment:Antibodies to HCV no t detected; does not exclude early acuteHCV infection. Hepatitis B Surface Ag Negative Negative [facility] 09/06/2024 12:3 6 PM EDT 09/06/2024 12:36 PM EDT us Generic External Data Provider LAB BLOOD ORDERAB LES Final Result Performing Organization Address City/State/[facility] Co de Phone Number [facility] [address] [place] [phone] * BI Mammogram Screening Tomosynthesis Bilateral (07/07/2024 12:21 PM EDT) Anatomical Region Laterality Modality Breast Bilateral Mammography 07/07/2024 12:2 1 PM EDT Narrative 07/15/2024 4:34 PM EDT [facility] [address] [place] [address] Mammography Report Signed Patient: Lois Dalton MR#: [id number] 1 : 1955 Acct:[id number] Age/Sex: 69 / F ADM Date: 07/07/24 Loc: .MAMMO Attending Dr: [place] Cifuentes NP Ordering Physician: [place] CIFUENTES NP Results: 1Negative Date of Service: 07/07/24 Follow Up: 1 Year From Orig ina Mammogram Procedure(s): MM tomosynthesis screening BI Accession Number(s): [id number] cc: [place] CIFUENTES NP EXAMINATION: MM SCREENING [...] 07/15/24 1631 DD/ 1221 TD/TT: 07/07/24 1246 Vp Hr Diversity: Procedure Note Donotuseinterpreter, Image - 07/15/2024 [facility] [address] [place] [address] Mammography Report Signed Patient: Arnav Dalton#: [id number] 1 : 5Acct:[id number] Age/Sex: 69 / FADM Date: 07/07/24 Loc: HO.MAMMO Attending Dr: [place] Cifuentes NP Ordering Physician: [place] CIFUENTES NPResults: 1Negative Date of Service: 07/07/24Follow Up: 1 Year From Orig ina Mammogram Procedure(s): MM tomosynthesis screening BI Accession Number(s): [id number] cc: [place] CIFUENTES NP EXAMINATION: MM SCREENING [...] 07/15/24 1631 DD/ 1221 TD/TT: 07/07/24 1246 Vp Hr Diversity: [place] KUMAR BI PROCEDURES Final Result * (ABNORMAL) Hm Colonoscopy (12/23/2022) Colonoscopy Abnormal( A) Normal [facility] Comment:tubular adenoma 12/23/2022 Yuni Jeffery MD HEALTH MAINTENANCE Final Result [facility] [address] [place] [address] [phone] * Direct LDL (08/15/2022 12:35 PM EDT) LDL Direct 70 <100 mg/dL [facility] Comment:Greatly elevated Tri glycerides values (>1200 mg/dL)interfere with the dLDL assay. As no Triglyceridestesting was ordered, interpret results with caution.Desirable range <100 mg/dL for primary prevention;<70 mg/dL for patients with CHD or diabetic patientswith > or = 2 CHD risk factors.THIS TEST WAS PERFORMED AT:[facility] [place] [id number] JAIME MD 08/15/2022 12:3 5 PM EDT 08/15/2022 12:36 PM EDT [facility] External Provider LAB BLO OD ORDERABLES Final Result [facility] [address] [place] [address] [phone] from Last 3 Months or Most Recently Relevant to Health Maintenance Additional Health Concerns Active Problems Noted Date [...] 01/30/2025 Patient has chronic kidney disease 01/30/2025 Insurance [facility] OPTIONS (O D-SNP) [place] [id number] Care Teams Retail Cosmetics Sales Counter Manager Relationship Specialty Start Date End Date [place] Cifuentes ANP [address] [place] [address] PCP - General Family Medicine 10/03/19 Ludm[address] Walker MD [address] [place] [address] Gastroenterology 11/22/24 [facility] 07/31/23
--- OUTSIDE RECORDS SUMMARY | 2025-02-01 03:59 | XMS_ITS | Encounter Summary ---
Author Organization [employer] Address [address] 7[address] [place] [address] Care Team Providers Care Smoking Pipe Driller And Threader Name Role Phone Breanna Zamudio Primary Care Provider [phone] Ludmila Walker MD Unavailable [phone] Reason for Visit * Reason Onset Date Comments Med Refill 01/21/2024 Encounter Details Date Type Department Care Team (Late st Contact Info) Description 01/21/2024 Telephone [facility] [address] [place], [place] [phone] Breanna Zamudio ANP [address] [place], [place] [phone] Med Refill Social History Tobacco Use Types [...] be sent to: [facility] - [place], [place] - [address] [place] [address] documented in this encounter Plan of Treatment Upcoming Encounters Date Type Department Care Team ([facility] st Contact Info) Description 02/13/2025 1:15 PM EST Office Visit [facility] [address] [place] [address] Breanna Zamudio ANP [address] [place] [address] documented as of this encounter Visit Diagnoses Not on filedocumented in this encounter Care Teams Smoking Pipe Driller And Threader Relationship Specialty Start Date End Date Breanna Zamudio ANP [address] [place] [address] PCP - General Family Medicine 10/03/19 Ludmila Walker MD [address] [place] [address] [place] [address] Gastroenterology 11/22/24 [facility] 07/31/23 documented as of this encounter
--- OUTSIDE RECORDS SUMMARY | 2025-02-01 04:00 | XMS_ITS | Encounter Summary ---
Author Organization [employer] [facility] Address [address] [place] [address] 7t [place] [address] Care Team Providers Care Bid Analyst Name Role Phone Breanna Zamudio Primary Care Provider [phone] Ludmila Walker MD Unavailable [phone] Reason for Visit * Reason Comments Med Refill Encounter Details Date Type Department Care Team (Late st Contact Info) Description 12/02/2022 Refill [facility] MEDICINE [address] [place] [address] [phone] Breanna Zamudio ANP [address] [place] [address] Pain in unspecified joint Social History Tobacco [...] Description 02/13/2025 1:15 PM EST Office Visit [facility] MEDICINE [address] [place], [place] [phone] Breanna Zamudio ANP [address] [place], [place] [phone] documented as of this encounter Visit Diagnoses Diagnosis Pain in unspecified joint documented in this encounter Care Teams Bid Analyst Relationship Specialty Start Date End Date Breanna Zamudio ANP [address] [place] [address] PCP - General Family Medicine 10/03/19 Ludmila Walker MD [address] [place] [address] 3rd [place] [address] Gastroenterology 11/22/24 [facility] 07/31/23 documented as of this encounter
--- OUTSIDE RECORDS SUMMARY | 2025-02-01 04:01 | XMS_ITS | Encounter Summary ---
Author Organization [employer] [facility] Address [address] [place] [address] 7[address] [place] [address] Care Team Providers Care Metalworking Specialist Name Role Phone Breanna Zamudio Primary Care Provider [phone] Ludmila Walker MD Unavailable [phone] Reason for Visit * Reason Comments Med Refill Encounter Details Date Type Department Care Team (Late st Contact Info) Description 11/21/2022 Refill [facility] MEDICINE [address] [place] [address] [phone] Breanna Zamudio ANP [address] [place] [address] Pain in unspecified joint Social History Tobacco [...] Description 02/13/2025 1:15 PM EST Office Visit [facility] MEDICINE [address] [place], [place] [phone] Breanna Zamudio ANP [address] [place], [place] [phone] documented as of this encounter Visit Diagnoses Diagnosis Pain in unspecified joint documented in this encounter Care Teams Metalworking Specialist Relationship Specialty Start Date End Date Breanna Zamudio ANP [address] [place] [address] PCP - General Family Medicine 10/03/19 Ludmila Walker MD [address] [place] [address] 3rd [place] [address] Gastroenterology 11/22/24 [facility] 07/31/23 documented as of this encounter
--- OUTSIDE RECORDS SUMMARY | 2025-02-01 04:01 | XMS_ITS | Encounter Summary ---
Author Organization [employer] Address [address] [place] [address] Care Team Providers Care Self Pay Specialist Name Role Phone Breanna Zamudio Primary Care Provider [phone] Ludmila Walker MD Unavailable [phone] Reason for Visit * Reason Onset Date Comments Med Refill 02/27/2023 Encounter Details Date Type Department Care Team (Late st Contact Info) Description 02/27/2023 Telephone [facility] MEDICINE [address] [place], [place] [phone] Breanna Zamudio ANP [address] [place], [place] [phone] Med Refill Social History Tobacco Use Types [...] 02/13/2025 1:15 PM EST Office Visit [facility] MEDICINE [address] [place] [address] Breanna Zamudio ANP [address] [place] [address] documented as of this encounter Visit Diagnoses Not on filedocumented in this encounter Care Teams Self Pay Specialist Relationship Specialty Start Date End Date Breanna Zamudio ANP [address] [place] [id number] PCP - General Family Medicine 10/03/19 Ludmila Walker MD [address] [place] [address] Drive 3[address] [place] [address] Gastroenterology 11/22/24 [facility] 07/31/23 documented as of this encounter
--- OUTSIDE RECORDS SUMMARY | 2025-02-01 04:01 | XMS_ITS | Encounter Summary ---
Author Organization [employer] Address [address] [place] [address] Care Team Providers Care Erp Project Manager Name Role Phone Breanna Zamudio Primary Care Provider [phone] Ludmila Walker MD Unavailable [phone] Reason for Visit * Reason Onset Date Comments Appointment Request 07/08/2024 Encounter Details Date Type Department Care Team ([facility] st Contact Info) Description 07/08/2024 Telephone [facility] MEDICINE [address] [place], [place] [phone] Breanna Zamudio ANP [address] [place], [place] [phone] Appointment Request Social History Tobacco Use Types [...] appt from 06/14/24. Pt is leaving to [place] on 07/09/24 at around 2 pm but pt was only given half of the pack for the Oxy and Spouse would like to see if anything can be done so that pt gets her full medication. Contact pt Spouse at [phone] documented in this encounter Plan of Treatment Upcoming Encounters Date Type Department Care Team (Late st Contact Info) Description 02/13/2025 1:15 PM EST Office Visit [facility] MEDICINE [address] [place] [address] Breanna Zamudio ANP [address] [place] [address] documented as of this encounter Visit Diagnoses Not on filedocumented in this encounter Care Teams Erp Project Manager Relationship Specialty Start Date End Date Breanna Zamudio ANP [address] [place] [address] PCP - General Family Medicine 10/03/19 Ludmila Walker MD [address] [place] [address] Drive 3rd [place] [address] Gastroenterology 11/22/24 [facility] 07/31/23 documented as of this encounter
== END 2025-01-31 13:38 | disposition home or self-care (01) ==
LOC: HO.ENCR 12:43
PROVIDERS: PCP Nurse Practitioner Primary Care; Visit Provider Physician Assistant Medical
DX: Z13.9 Encounter for screening, unspecified (principal); E11.42 Type 2 diabetes mellitus with diabetic polyneuropathy; Z79.4 Long term (current) use of insulin

== ENCOUNTER → 2025-01-31 12:42 | Outpatient (BNVA) | payer OTHER, SELFPAY | PROVIDERS: PCP Nurse Practitioner Primary Care; Visit Provider Physician Assistant Medical | DX: E11.42 Type 2 diabetes mellitus with diabetic polyneuropathy (principal); Z79.4 Long term (current) use of insulin | CPT/HCPCS: 82947; 83036; 99212 ==

== ENCOUNTER 2025-02-13 19:54 | Outpatient (REF) | payer OTHER, SELFPAY ==
--- OUTSIDE RECORDS SUMMARY | 2025-02-13 13:15 | XMS_ITS | Encounter Summary ---
Author Organization [employer] Address [address] [place] [address] 7 [place] [address] Care Team Providers Care Table Cover Folder Name Role Phone Breanna Zamudio Primary Care Provider [phone] Ludmila Walker MD Unavailable [phone] Reason for Referral * Medications - Closed Specialty Diagnoses / Procedures Referred By Conterwin t Referred To Contact Diagnoses Osteoarthritis of multiple joints, unspecified osteoarthritis type Chronic midline thoracic back pain Breanna Zamudio ANP [address] [place] [address] Phone: tel: fax: Referral ID Status Reason Start Date Expiration Date Visits Re quested Visits Authorized [id number] Closed 1 1 Reason for Visit * Reason Comments Follow-up Encounter Details Date Type Department Care Team (Latest Contact Info) Description 02/13/2025 1:15 PM EST Office Visit [facility] [address] [place], [place] [id number] Breanna Zamudio ANP [address] [place] [address] Hyperlipidemia associated with type 2 diabetes mellitus (HCC) (Primary Dx); Essential hypertension; 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); Mixed anxiety and depressive disorder; Class 1 obesity with serious comorbidity and body mass index (BMI) of 33.0 to 33.9 in adult, unspecified obesity type; Dietary counseling; Exercise counseling; Osteoarthritis of multiple joints, unspecified osteoarthritis type; 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; Bilateral leg edema; Chronic midline thoracic back pain; Irritable bowel syndrome with diarrhea Social History Tobacco Use Types Packs/Day Years [...] Not on file 08/14 Score 0 08/28/2023 Depression Answer Date Recorded Patient Health Questionnaire-9 Score 7 02/13/2025 Patient Health Questionnaire-9 Score 7 02/13/2025 Last PHQ-9: Questionnaire Data Not on file 1 04/16/2024 Housing Stability Answer Date Recorded What is [...] Answer Date Recorded Patient Health Questionnaire-2 Score 1 02/13/2025 Internet Access Answer Date Recorded Internet Access Q1 Yes 11/16/2023 Internet Access Q2 Not on file 11/16/2023 Comments Unknown Sex and Gender Information Value Date Recorded Sex Assigned at Female 01/13/2022 10:16 AM EDT Legal Sex Female 10:16 AM EDT Gender Identity Female 01/13/2022 10:16 AM EDT Sexual Orientation Straight 01/13/2022 10 :16 AM EDT documented as of this encounter Last Filed Vital Signs Vital Sign Reading Time Taken Comments Blood Pressure 146/86 02/13/2025 1:47 PM EST Pulse 76 02/13/2025 1:23 PM EST Temperature 36.5 C (97.7 F) 02/13/2025 1:23 PM EST Respiratory Rate 16 02/13/2025 1:23 PM EST Oxygen Saturation 98% 02/13/2025 1:23 PM EST Inhaled Oxygen Concentration - - Weight 91.6 kg (202 lb) 02/13/2025 1:23 PM EST Height 165.1 cm (5' 5 ) 02/13/2025 1:23 PM EST Body Mass Index 33.61 02/13/2025 1:23 PM EST documented in this encounter Functional Status * Over the past 2 weeks, how often have you been bothered by any of the following problems? Question Answer Date of Assessment Author Patient Health Questionnaire -2 Score 1 02/13/2025 1:01 PM EST Colt Kulkarni MA * Little interest or pleasure in doing things Answer Date of Assessment Author Several days 02/13/2025 1:01 PM EST Farhad Kulkarni MA * Feeling down, depressed, or hopeless Answer Date of Assessment Author Not at all 02/13/2025 1:01 PM EST Farhad Kulkarni MA * Trouble falling or staying asleep, or sleeping too much Answer Date of Assessment Author More than half the days 02/13/2025 1:01 PM EST Colt Win MA * Feeling tired or having little energy Answer Date of Assessment Author Nearly every day 02/13/2025 1:01 PM Colt Snyder MA * Poor appetite or overeating Answer Date of Assessment Author Several days 02/13/2025 1:01 PM EST Farhad Kulkarni MA * Feeling bad about yourself - or that you are a failure or have let yourself or your family down Answer Date of Assessment Author Not at all 02/13/2025 1:01 PM EST Farhad Kulkarni MA * Trouble concentrating on things, such as reading the newspaper or watching television Answer Date of Assessment Author Not at all 02/13/2025 1:01 PM EST Farhad Kulkarni MA * Moving or speaking so slowly that other people could have noticed? Or the opposite - being so fidgety or restless that you have been moving around a lot more than usual. Answer Date of Assessment Author Not at all 02/13/2025 1:01 PM Farhad Snyder MA * Thoughts that you would be better off or hurting yourself in some way Answer Date of Assessment Author Not at all 02/13/2025 1:01 PM Farhad Snyder MA * Patient Health Questionnaire-9 Score Answer Date of Assessment Author 7 02/13/2025 1:01 PM Farhad Snyder MA * Over the last 2 weeks, how often have you been bothered by any of the following problems? Question Answer Date of Assessment Author Feeling nervous, anxious, or on edge 0 02/13/2025 1:01 PM Colt Snyder MA Not being able to stop or co ntrol worrying 0 02/13/2025 1:01 PM Colt Snyder MA Worrying too much about diff erent things 1 02/13/2025 1:01 PM Colt Snyder MA Trouble relaxing 0 02/13/2025 1:01 PM Colt Manning MA Being so restless that it is hard to sit still 0 02/13/2025 1:01 PM Colt Snyder MA Becoming easily annoyed or irritable 0 02/13/2025 1:01 PM Colt Snyder MA Feeling afraid as if somethi ng awful might happen 0 02/13/2025 1:01 PM Colt Snyder MA JONES-7 Total Score 1 02/13/2025 1:01 PM Colt Snyder MA * How difficult have these problems made it for you to do your work, take care of things at home, or get along with other people? Answer Date of Assessment Author Somewhat difficult 02/13/2025 1:01 PM Colt Snyder MA documented as of this encounter Progress Notes * RICARDO Caraballo - 02/13/2025 1:15 PM EST SUBJECTIVE: Lois Dalton is a 69 y.o. year old female who presents for follow up. Denies recent illness, injury, or hospitalization. 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 GI visit 01/30/25 where mesalamine was Rxd - does not seem to be helping. Back Pain - Reports pain involving the whole back - Pain interferes with sleep - Shoulders also hurt - Describes pain as similar to fibromyalgia flares past - Has used heat for pain relief in the past, but reports it does not help - Currently taking oxycodone for pain - Has not tried topical treatments such as Vicks and Gem [place].. requests lidocaine patches. Venlafaxine Use - Had been taking venlafaxine for depression and fibromyalgia-related pain - Recently ran out of venlafaxine; unable to recall when Lower Extremity Swelling - Reports some improvement in swelling when elevating feet - Previously on Lasix, which was stopped last year during ICU admission d/t hypotension Gastrointestinal Symptoms - Reports cramping - Has seen gastroenterology recently for evaluation - mesalamine Rx'd but symptoms not better Hemoglobin A1c 7.4% 01/31/25. From endo: Reviewed CGM data for the past 2 weeks Average glucose 160 CGM active 96% G DE 7.1% Glucose variability 25.1% Very high 4% High 20% Target range 76% 0% hypoglycemia She has mild hyperglycemia mid day and occasionally late night. Current regimen: Ozempic 2 mg weekly. Metformin ER 1000 mg b.i.d. Lantus 40 units at bedtime Jardiance 25 mg q.a.m. Past medication: Actos discontinued due to lower leg edema, but she is still concerned about swelling in her legs. It is worse when her feet are down during the day. She had an echocardiogram with preserved left ventricular ejection fraction in 2023. Endorses mild neuropathy in her feet. Denies episodes of hypoglycemia since reducing her dose of Lantus. Hyperglycemia symptoms: denies Eye exam: Up-to-date Endo was concerned pt had both lisinopril and olmesartan on med list but lisinopril was discontinued for olmesartan previously. Reviewed this w/ pt again today. Non-smoker Safe at home Nilmari Kulkarni RMA provided Niuean interpretation. Social History Social History Narrative Not on file Problem List[1] Surgical History[2] Family History[3] Review of Systems OBJECTIVE: Vitals: 02/13/25 1323 02/13/25 1347 BP: (!) 170/88 (!) 146/86 BP Location: Left arm Left arm Patient Position: Sitting Sitting BP Cuff Size: Adult Large adult Pulse: 76 Resp: 16 Temp: 97.7 ??F (36.5 ??C) TempSrc: Temporal SpO2: 98% Weight: 202 lb (91.6 kg) Height: 5' 5 (1.651 m) Physical Exam Vitals reviewed. Constitutional: General: She is not in acute distress. Appearance: Normal appearance. She is obese. She is not ill-appearing. HENT: Head: Normocephalic and atraumatic. Eyes: General: No scleral icterus. Extraocular Movements: Extraocular movements intact. Pupils: Pupils are equal, round, and reactive to light. Cardiovascular: Rate and Rhythm: Normal rate and regular rhythm. Pulmonary: Effort: Pulmonary effort is normal. No accessory muscle usage or respiratory distress. Musculoskeletal: Comments: Unable to abduct bilateral UE to 90 deg d/t pain; TTP upper back Neurological: Mental Status: She is alert and oriented to person, place, and time. Psychiatric: Mood and Affect: Mood normal. Behavior: Behavior normal. ASSESSMENT/PLAN Assessment & Plan Hyperlipidemia associated with type 2 diabetes mellitus (HCC): - Ordered cholesterol testing to be completed at patient's convenience. Cont following w/ endo Essential hypertension: - Elevated blood pressure noted during visit. Reinforced medication compliance which pt says she adheres to. Does not have pill box and recommend she utilize one. Gave sample today. - Restarted furosemide (Lasix). Provided pill box to assist with medication adherence. Advised to call clinic if experiencing low blood pressure. Goal </= 120/80. Continue to encourage low salt diet, regular exercise, home BP monitoring, compliance with medications. Call clinic if BP is frequently >150/90 Go to ED/call 911 if > 170/100 and having sx such as MARTINEZ, visual changes, chest pain, SOB Last renal function: Lab Results Component Value Date GLUCOSE 154 (H) 01/31/2025 NA 139 09/06/2024 K 4.3 09/06/2024 CO2 22 09/06/2024 CL 107 09/06/2024 BUN 12 09/06/2024 CREATININE 0.79 09/06/2024 EGFR >60 09/06/2024 Lab Results Component Value Date MICROALBCREA 119 (H) 10/04/2019 Lab Results Component Value Date MICROALBCREU 23.9 08/15/2022 Mixed anxiety and depressive disorder: - Venlafaxine prescribed for depression and fibromyalgia-related pain. - Reinforced importance of taking both prescribed doses of venlafaxine (150 mg and 75 mg). Will check pharmacy records for adherence. Dietary counseling: - Suggested trial of psyllium fiber supplement to decrease gastrointestinal cramping. 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 I declined request to dose increase today. - Discussed non-pharmacologic adjuncts for pain including topical agents ([place]em [place], Vicks, Omer de [place]) and TENS unit. Informed that topical lidocaine patches may require insurance authorization,which will be requested. - Risks and side effects: Advised to avoid contact with eyes or genitals after applying topical agents due to risk of burning sensation. Bilateral leg edema: - Bilateral leg edema present, partially responsive to leg elevation. Lungs CTAB. Echo Furosemide (Lasix) previously discontinued, now being restarted. - Restarted furosemide (Lasix). Ordered kidney function test in 2 weeks to monitor for adverse effects. 06/03/2023-echo showed normal EF of 67%. No valvular pathology. 02/22/2024- Holter monitor showed normal sinus rhythm, 1.4% burden of supraventricular ectopy, rare ventricular ectopy. 03/14/2024-myocardial perfusion imaging study was normal. 06/16/23- CTA chest showed multivessel coronary artery calcifications. Chronic midline thoracic back pain: - Chronic midline thoracic back pain, possibly related to fibromyalgia. - Discussed trial of TENS unit and topical agents for symptomatic relief. 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 Adequate protein intake, Recommended at least 20 g per meal of protein to assist with satiety. Decrease soda and sugary beverage consumption. Dietary counseling As above Exercise counseling As above Osteoarthritis of multiple joints, unspecified osteoarthritis type - lidocaine (Lidoderm) 5 % patch; Apply 1 patch topically Once per day. Remove & discard patch within 12 hours or as directed by MD. care home (current) use of opiate analgesic Cont follow-up w/ SE[employer]ISHER Bilateral leg edema - furosemide (Lasix) 20 MG tablet; Take 1 tablet (20 mg) by mouth Once per day. Chronic midline thoracic back pain - lidocaine (Lidoderm) 5 % patch; Apply 1 patch topically Once per day. Remove & discard patch within 12 hours or as directed by MD. Irritable bowel syndrome with diarrhea - psyllium (Metamucil Smooth Texture) 58.6 % powder; 1 tsp powder in 8oz in water once daily This note was drafted using Ambient (AI) technology. The patient/patient's guardian has been informed and has consented to the use of this technology: Yes Based on our discussion, I have outlined the following instructions for you: - Schedule and complete your cholesterol blood test when it is convenient for you. - Start taking furosemide (Lasix) as prescribed. In two weeks, get your kidney function blood test as ordered. - Use the pill box provided to help you remember to take your medications every day. - If you feel dizzy, lightheaded, or think your blood pressure is too low, call the clinic. - Take both prescribed doses of venlafaxine (150 mg and 75 mg) every day for depression and pain. - Try using a psyllium fiber supplement to help with stomach cramping. - Continue using oxycodone for pain as directed. - Try using topical pain relief creams ([place]em [place], Vicks, Omer de Uber) and a TENS unit to help with pain. If you use topical creams, do not touch your eyes or private areas afterwards, as this cancause a burning feeling. - If you want to use topical pain relief patches, insurance approval will be requested. Thank you again for your visit, and we look forward to supporting you in your journey to better health. Follow Up: 6 weeks Medications Ordered Prior to Encounter[4] Niuean Translation: Nilmari Kulkarni RMA provided Niuean interpretation. [1] Patient Active Problem List Diagnosis Dyslipidemia Essential hypertension Gastroesophageal reflux disease without esophagitis Hyperlipidemia associated with type 2 diabetes mellitus (HCC) Hyperparathyroidism (CMS/HCC) Insomnia disorder with non-sleep disorder mental comorbidity Irritable bowel syndrome with diarrhea Joint pain Mixed anxiety and depressive disorder Moderate persistent asthma Class 1 obesity with serious comorbidity and body mass index (BMI) of 33.0 to 33.9 in adult, unspecified obesity type Osteoarthritis Osteopenia Postsurgical menopause Type 2 diabetes mellitus (HCC) Urinary problem Neuropathic pain Bilateral leg edema Proteinuria Ischemic colitis (CMS/HCC) Mixed stress and urge urinary incontinence Encounter for insertion of prosthetic knee after prior removal of knee prosthesis Presence of IVC filter Long-term current use of opiate analgesic 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 [4] Current Outpatient Medications on File Prior to Visit Medication Sig Dispense Refill acetaminophen (Tylenol 8 Hour) 650 MG ER tablet TAKE 1 TABLET BY MOUTH EVERY 8 HOURS NEEDED SWALLOW WHOLE WITH WATER DO NOT BREAK, CRUSH, DISSOLVE OR CHEW 90 tablet 0 albuterol 0.63 MG/3ML nebulizer solution INHALE 1 AMPULE USING A NEBULIZER EVERY 4 TO 6 HOURS NEEDED FOR WHEEZING OR SHORTNESS OF BREATH FOR (for asthma) 75 mL 2 Alcohol Swabs (SM Alcohol Prep) 70 % pads USE TWICE DAILY DIRECTED 100 each 11 Blood Glucose Monitoring Suppl ([employer] Verio Flex System) w/Device kit TEST BLOOD SUGAR TWICE DAILY cholecalciferol (Vitamin D-3) 50 MCG (1999 UT) tablet Take 1 tablet by mouth in the morning. cloNIDine (Catapres) 0.1 MG tablet TAKE 2 TABLETS BY MOUTH EVERY DAY AT BEDTIME 60 tablet 2 Continuous Glucose Med Spec (FreeStyle Manuelito 2 Diana) device Use as directed Continuous Glucose Sensor (FreeStyle [place] 2 Sensor) [facility] [place] 2 weeks to monitor BG Cyanocobalamin (Vitamin B-12) 1000 MCG sublingual tablet DISSOLVE 1 TABLET BY MOUTH DAILY cyclobenzaprine (Flexeril) 5 MG tablet TAKE 1 TABLET BY MOUTH UP TO THREE TIMES DAILY NEEDED 30 tablet [address] capsule Take 1 capsule (60 mg) by mouth in the morning. 30 capsule 2 Eliquis 5 MG tablet Take 1 tablet (5 mg) by mouth 2 times daily. 60 tablet 2 fluticasone (Flonase) 50 MCG/ACT nasal spray INSTILL 1 SPRAY IN EACH NOSTRIL ONCE DAILY IN THE MORNING 16 g 2 hydrOXYzine HCl (Atarax) 50 MG tablet TAKE 1 TABLET BY MOUTH EVERY 8 HOURS NEEDED FOR ANXIETY 270 tablet 1 insulin pen needle (Pentips) 32G x 4 mm misc Use as instructed 100 each 5 Jardiance 25 MG Take 1 tablet by mouth 1 (one) time each day. Lancets (PlaytestCloudTouch Delica Plus Debmtx95G) misc TEST BLOOD SUGAR TWICE DAILY Lantus SoloStar 100 UNIT/ML pen INJECT 34 UNITS SUBCUTANEOUSLY EVERY EVENING levothyroxine (Synthroid, Levoxyl) 75 MCG tablet TAKE 1 TABLET BY MOUTH EVERY DAY BEFORE BREAKFAST 90 tablet 1 Linzess 290 MCG capsule TAKE 1 CAPSULE BY MOUTH EVERY MORNING metoprolol succinate XL (Toprol-XL) 200 MG 24 hr tablet TAKE 1 TABLET BY MOUTH EVERY MORNING 90 tablet 3 Multiple Vitamins-Iron (Tab-A-Saima/Iron/Beta Carotene) tablet TAKE 1 TABLET BY MOUTH EVERY DAY WITHFOOD 90 tablet 3 Multiple Vitamins-Minerals (CertaVite/Antioxidants) tablet TAKE 1 TABLET BY MOUTH EVERY DAY WITH FOOD 90 tablet 3 naloxone (Narcan) 4 mg/0.1 mL nasal spray FOR SUSPECTED OPIOID OVERDOSE. SPRAY 0.1mL IN ONE NOSTRIL. REPEAT IN ALTERNATE NOSTRIL 2-3 MINUTES IF NEEDED. SEEK MEDICAL ATTENTION IMMEDIATELY EVEN IF PATIENT RESPONDS. 2 each 1 Nebulizers (Proneb Ultra II/LC Plus) device Use with albuterol olmesartan (Benicar) 40 MG tablet TAKE 1 TABLET BY MOUTH EVERY DAY 90 tablet 0 OneTouch Verio test strip TEST BLOOD SUGAR TWICE DAILY oxyCODONE (Roxicodone) 10 MG immediate release tablet Take 1 tablet (10 mg) by mouth every 6 (six) hours if needed for severe pain for up to 21 days. 84 tablet 0 Ozempic, 0.25 or 0.5 MG/DOSE, 2 MG/3ML solution pen-injector INJECT 0.5 MG SUBCUTANEOUSLY ONCE A WEEK Respiratory Therapy Supplies (Nebulizer) device Use for albuterol every 4-6 hours as needed for asthma sx 1 each 0 Respiratory Therapy Supplies (Nebulizer/Tubing/Mouthpiece) kit Use w/ nebulizer 1 kit 1 rosuvastatin (Crestor) 40 MG tablet Take 1 tablet by mouth 1 (one) time each day. sucralfate (Carafate) 1 g tablet Take 1 tablet (1 g) by mouth before breakfast, before lunch, before evening meal, and at bedtime. 120 tablet 2 traZODone (Desyrel) 150 MG tablet TAKE 2 TABLETS BY MOUTH EVERY DAY AT BEDTIME 60 tablet 5 Trelegy Ellipta 200-62.5-25 MCG/ACT aerosol powder INHALE 1 PUFF EVERY DAY AT THE SAME TIME TRUEplus Glucose 4 g chewable tablet CHEW 4 TABLETS NEEDED FOR low blood sugar (LESS THAN 70mg/dL) 50 tablet 12 venlafaxine XR (Effexor XR) 75 MG 24 hr capsule TAKE 1 CAPSULE BY MOUTH DAILY WITH 150 MG CAPSULE. DO NOT BREAK, CRUSH, DISSOLVE OR CHEW 90 capsule 1 Ventolin HFA 108 (90 Base) MCG/ACT inhaler Inhale 1 puff every 4 (four) hours if needed for wheezing. verapamil SR (Calan SR) 180 MG ER tablet TAKE 2 TABLETS BY MOUTH EVERY DAY WITH FOOD 180 tablet 3 [DISCONTINUED] oxyCODONE (Roxicodone) 10 MG immediate release tablet Take 1 tablet (10 mg) by mouthevery 6 (six) hours if needed for severe pain for up to 21 days. Do not start before February 08, 2025. 84 tablet 0 [DISCONTINUED] venlafaxine XR (Effexor XR) 150 MG 24 hr capsule TAKE 1 CAPSULE BY MOUTH DAILY WITH 75 MG CAPSULE. DO NOT BREAK, CRUSH, DISSOLVE OR CHEW 90 capsule 1 No current facility-administered medications on file prior to visit. documented in this encounter Plan of Treatment Upcoming Encounters Date Type Department Care Team (Late st Contact Info) Description 03/02/2025 1:00 PM EST Clinical Support [facility] [address] [place] [address] Sis Coppola, RN [address] [place] [address] Scheduled Orders Name Type Priority Associated Diagnoses Orde r Schedule Basic Metabolic Panel Lab Routine Essential hypertension Expected: 02/13/2025 (Approximate), Expires: 02/13/2026 documented as of this encounter Goals Goal [...] chronic kidney disease No Sis Coppola RN Weekly blood pressure task Care Plan Weekly blood pressure task No Isael Kelly Weekly blood pressure task Care Plan Weekly blood pressure task No Isael Kelly Patient has chronic kidney disease Care Plan Patient has chronic kidney disease No Isael Kelly Patient has chronic kidney disease Care Plan Patient has chronic kidney disease No Isael Kelly Weekly blood pressure task Care Plan Weekly blood pressure task No Deepti Acosta Weekly blood pressure task Care Plan Weekly blood pressure task No Deepti Acosta Patient has chronic kidney disease Care Plan Patient has chronic kidney disease No Deepti Acosta Patient has chronic kidney disease Care Plan Patient has chronic kidney disease No Deepti Acosta Weekly blood pressure task Care Plan Weekly blood pressure task No Sis Coppola RN Weekly blood pressure task Care Plan Weekly blood pressure task No Sis Coppola RN Patient has chronic kidney disease Care Plan Patient has chronic kidney disease No Sis Coppola RN Patient has chronic kidney disease Care Plan Patient has chronic kidney disease No Sis Coppola RN Weekly blood pressure [...] chronic kidney disease No Sis Coppola RN Weekly blood pressure task Care Plan Weekly blood pressure task No Breanna Zamudio ANP Weekly blood pressure task Care Plan Weekly blood pressure task No Breanna Zamudio ANP Patient has chronic kidney disease Care Plan Patient has chronic kidney disease No Breanna Zamudio ANP Patient has chronic kidney disease Care Plan Patient has chronic kidney disease No Breanna Zamudio ANP Weekly blood pressure task Care Plan Weekly blood pressure task No Zayra Thomas MA Weekly blood pressure task Care Plan Weekly blood pressure task No Zayra Thomas [place] Patient has chronic kidney disease Care Plan Patient has chronic kidney disease No Zayra Thomas [place] Patient has chronic kidney disease Care Plan Patient has chronic kidney disease No Zayra Thomas MA Weekly blood pressure task Care Plan Weekly blood pressure task No Zayra Thomas MA Weekly blood pressure task Care Plan Weekly blood pressure task No Zayra Thomas [place] Patient has chronic kidney disease Care Plan Patient has chronic kidney disease No Zayra Thomas [place] Patient has chronic kidney disease Care Plan Patient has chronic kidney disease No Zayra Thomas MA documented as of this encounter Visit Diagnoses Diagnosis Hyperlipidemia associated with type 2 diabetes mellitus (HCC)- Primary Essential hypertension Unspecified essential hypertension 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) Mixed anxiety and depressive disorder Dysthymic disorder Class 1 obesity with serious comorbidity and body mass index (BMI) of 33.0 to 33.9 in adult, unspecified obesity type Dietary counseling Dietary surveillance and counseling Exercise counseling Osteoarthritis of multiple joints, unspecified osteoarthritis type care home (current) use of opiate analgesic Bilateral leg edema Edema Chronic midline thoracic back pain Irritable bowel syndrome with diarrhea Irritable bowel syndrome documented in this encounter Additional Health Concerns [...] kidney disease 01/30/2025 Weekly blood pressure task 02/02/2025 Weekly blood pressure task 02/02/2025 Patient has chronic kidney disease 02/02/2025 Patient has chronic kidney disease 02/02/2025 Weekly blood pressure task 02/03/2025 Weekly blood pressure task 02/03/2025 Patient has chronic kidney disease 02/03/2025 Patient has chronic kidney disease 02/03/2025 Weekly blood pressure task 02/03/2025 Weekly blood pressure task 02/03/2025 Patient has chronic kidney disease 02/03/2025 Patient has chronic kidney disease 02/03/2025 Weekly blood pressure task 02/03/2025 Weekly blood pressure task 02/03/2025 Patient has chronic kidney disease 02/03/2025 Patient has chronic kidney disease 02/03/2025 Weekly blood pressure task 02/07/2025 Weekly blood pressure task 02/07/2025 Patient has chronic kidney disease 02/07/2025 Patient has chronic kidney disease 02/07/2025 Weekly blood pressure task 02/08/2025 Weekly blood pressure task 02/08/2025 Patient has chronic kidney disease 02/08/2025 Patient has chronic kidney disease 02/08/2025 Weekly blood pressure task 02/08/2025 Weekly blood pressure task 02/08/2025 Patient has chronic kidney disease 02/08/2025 Patient has chronic kidney disease 02/08/2025 Assessment Noted Time PHQ-9 Depression Total Score: 7 02/14/20 25 1:01 PM EST documented as of this encounter Care Teams Table Cover Folder Relationship Specialty Start Date End Date Breanna Zamudio ANP [address] [place] [address] PCP - General Family Medicine 10/03/19 Ludmila Walker MD [address] 3rd [place] [address] Gastroenterology 11/22/24 [facility] 07/31/23 documented as of this encounter
--- OUTSIDE RECORDS SUMMARY | 2025-02-13 19:58 | XMS_ITS | Encounter Summary ---
Author Organization [employer] Address [address] 7t [place] [address] Care Team Providers Care Senior Chemist Name Role Phone Breanna Zamudio Primary Care Provider [phone] Ludmila Walker MD Unavailable [phone] Reason for Visit * Reason Onset Date Comments Medication Question 08/11/2024 Encounter Details Date Type Department Care Team ([facility] st Contact Info) Description 08/11/2024 Telephone [facility] MEDICINE 230 [place], [place] [phone] Breanna Zamudio ANP 230 [place], [place] [phone] Medication Question Social History Tobacco Use Types [...] month. States will be leaving out of [place] on Thursday and needs all her medications. Pt will be out for more than a month. Medication: OxyCODONE (Roxicodone) 10 MG immediate release tablet [phone] Patient [phone] Pt spouse documented in this encounter Plan of Treatment Upcoming Encounters Date Type Department Care Team (Late st Contact Info) Description 03/02/2025 1:00 PM EST Clinical Support [facility] MED & PEDS 505 [place] [address] Sis Coppola RN 505 [place] [address] documented as of this encounter Visit Diagnoses Not on filedocumented in this encounter Care Teams Senior Chemist Relationship Specialty Start Date End Date Breanna Zamudio ANP [address] [place] [address] PCP - General Family Medicine 10/03/19 Ludmila Walker MD [address] [place] [address] Drive 3rd Floor [place] [phone] Gastroenterology 11/22/24 [facility] 07/31/23 documented as of this encounter
--- OUTSIDE RECORDS SUMMARY | 2025-02-13 19:58 | XMS_ITS | Encounter Summary ---
Author Organization [employer] Address [address] 7t [place] [address] Care Team Providers Care Power Checker Name Role Phone Breanna Zamudio Primary Care Provider [phone] Ludmila Walker MD Unavailable [phone] Reason for Visit * Reason Comments Med Refill Encounter Details Date Type Department Care Team ([facility] st Contact Info) Description 08/24/[address] [facility] MEDICINE 230 [place], [place] [phone] Breanna Zamudio ANP 230 [place], [place] [phone] Ischemic colitis ([facility]/HCC) Social History Tobacco Use Types Packs/Day [...] Upcoming Encounters Date Type Department Care Team ([facility] st Contact Info) Description 03/02/2025 1:00 PM EST Clinical Support [facility] PEDS 505 [place] [address] Sis Coppola, AIDA 505 [place] [address] documented as of this encounter Visit Diagnoses Diagnosis Ischemic colitis (CMS/HCC) documented in this encounter Care Teams Power Checker Relationship Specialty Start Date End Date Breanna Zamudio ANP [address] [place] [address] PCP - General Family Medicine 10/03/19 Ludmila Walker MD [address] [place] [address] Drive 3rd [place] [address] Gastroenterology 11/22/24 [facility] 07/31/23 documented as of this encounter
--- OUTSIDE RECORDS SUMMARY | 2025-02-13 19:58 | XMS_ITS | Encounter Summary ---
Author Organization [employer] Address [address] 7t [place] [address] Care Team Providers Care Ug Designer Name Role Phone Breanna Zamudio Primary Care Provider [phone] Ludmila Walker MD Unavailable [phone] Reason for Visit * Reason Onset Date Comments Med Refill 11/18/2023 Encounter Details Date Type Department Care Team (Late st Contact Info) Description 11/18/2023 Telephone [facility] MEDICINE 230 [place], [place] [phone] Breanna Zamudio ANP 230 [place], [place] [phone] Med Refill Social History Tobacco Use Types [...] to: [facility] - [place], [place] - [address] [place] [address] documented in this encounter Plan of Treatment Upcoming Encounters Date Type Department Care Team ([facility] st Contact Info) Description 03/02/2025 1:00 PM EST Clinical Support [facility] MED & PEDS 505 [place] [address] Sis Coppola, AIDA 505 [place] [address] documented as of this encounter Visit Diagnoses Not on filedocumented in this encounter Care Teams Ug Designer Relationship Specialty Start Date End Date Breanna Zamudio ANP 230 [place] [address] PCP - General Family Medicine 10/03/19 Ludmila Walker MD [address] [place] [address] 3rd [place] [address] Gastroenterology 11/22/24 [facility] 07/31/23 documented as of this encounter
--- OUTSIDE RECORDS SUMMARY | 2025-02-13 19:58 | XMS_ITS | Encounter Summary ---
Author Organization [employer] Address [address] 7t [place] [address] Care Team Providers Care Insurance Policy Issue Clerk Name Role Phone Breanna Zamudio Primary Care Provider Ldumila Walker MD Unavailable [phone] Reason for Visit * Reason Onset [...] her to return my call at ext [phone]. Encounter Details Date Type Department Care Team (Late st Contact Info) Description 05/06/2024 Refill [facility] MED & PEDS [address] [place], [place] [phone] Breanna Zamudio ANP 230 [place], [place] [phone] Ischemic colitis (CMS/HCC) Social History Tobacco Use [...] her to return my call at ext [phone]. * Telephone Encounter - Prisca Ramos [place] [...] 1:00 PM EST Clinical Support [facility] MED & PEDS 505 [place] [address] Sis Coppola, RN 505 [place] [address] documented as of this encounter Visit Diagnoses Diagnosis Ischemic colitis (CMS/HCC) documented in this encounter Care Teams Insurance Policy Issue Clerk Relationship Specialty Start Date End Date Breanna Zamudio ANP [address] [place] [address] PCP - General Family Medicine 10/03/19 Ludmila Walker MD [address] [place] [address] Drive 3rd [place] [address] Gastroenterology 11/22/24 [facility] 07/31/23 documented as of this encounter
--- OUTSIDE RECORDS SUMMARY | 2025-02-13 19:58 | XMS_ITS | Encounter Summary ---
Author Organization [employer] Address [address] 7t [place] [address] Care Team Providers Care Revit Drafter Name Role Phone Breanna Zamudio Primary Care Provider [phone] Ludmila Walker MD Unavailable [phone] Reason for Visit * Reason Onset Date Comments Med Refill 01/30/2025 Encounter Details Date Type Department Care Team ([facility] st Contact Info) Description 01/30/2025 Telephone [facility] MEDICINE 230 [place], [place] [phone] Breanna Zamudio ANP 230 [place], [place] [phone] Med Refill Social History Tobacco Use Types [...] tablet To be sent to: [facility] - [place], [place] - [address] [place] [address] documented in this encounter Plan of Treatment Upcoming Encounters Date Type Department Care Team ([facility] st Contact Info) Description 03/02/2025 1:00 PM EST Clinical Support [facility] MED & PEDS 505 [place] [address] Sis Coppola, AIDA 505 [place] [address] documented as of this encounter Goals Goal [...] documented as of this encounter Care Teams Revit Drafter Relationship Specialty Start Date End Date Breanna Zamudio ANP [address] [place] [address] PCP - General Family Medicine 10/03/19 Ludmila Walker MD [address] [place] [address] 3rd [place] [address] Gastroenterology 11/22/24 [facility] 07/31/23 documented as of this encounter
--- OUTSIDE RECORDS SUMMARY | 2025-02-13 19:58 | XMS_ITS | Encounter Summary ---
Author Organization [employer] Address [address] 7t [place] [address] Care Team Providers Care Assistant Field Hockey Coach Name Role Phone Brenana Zamudio Primary Care Provider [phone] Ludmila Walker MD Unavailable [phone] Reason for Visit * Reason Onset Date Comments Appointment Request 06/13/2024 Encounter Details Date Type Department Care Team ([facility] st Contact Info) Description 06/13/2024 Telephone [facility] MEDICINE 230 [place], [place] [phone] Breanna Zamudio ANP 230 [place], [place] [phone] Appointment Request Social History Tobacco Use Types [...] 2:32 PM EDT Tc from pt canceled [facility]HER appt due to being on vacation in [place] and would like to r/s after 07/08/24. documented in this encounter Plan of Treatment Upcoming Encounters Date Type Department Care Team (Late st Contact Info) Description 03/02/2025 1:00 PM EST Clinical Support [facility] MED & PEDS 505 [place] [address] Sis Coppola, AIDA 505 [place] [address] documented as of this encounter Visit Diagnoses Not on filedocumented in this encounter Care Teams Assistant Field Hockey Coach Relationship Specialty Start Date End Date Breanna Zamudio ANP [address] [place] [address] PCP - General Family Medicine 10/03/19 Ludmila Walker MD [address] 3rd [place] [address] Gastroenterology 11/22/24 [facility] 07/31/23 documented as of this encounter
--- OUTSIDE RECORDS SUMMARY | 2025-02-13 19:58 | XMS_ITS | Data Portability ---
Author Organization [facility] Address [address] [place] [address] Care Team Providers Care Shellfish Processing Machine Tender Name Role Phone [facility] Referring Provider Assessment No assessment [...] Available Pentips Pen Needle 32 gauge x 5/32 USE DIRECTED active Not Available Not Available [...] Recorded Heart rate Body temperature Oxygen saturation Respiratory rate Body temperature Oxygen saturation Respiratory rate Heart rate Systolic And Diastolic Systolic And Diastolic Provider Name and Address Organization Details Last Updated DateTime 2 74 /min 99.2 [degF] 98 % 18 /min 99.2 [degF] 98 % 18 /min 74 /min 181/84 mm[Hg] 181/84 mm[Hg] Not Available [employer] - production 2 22:38:03 Social History None [...] Codes Diagnosis Note [id number] Nancy Garcia MD Main - [address] [address] 01/11/2022 21:15:51 01/14/2022 13:03:57 Diverticulitis [id number] K57.92 Pt recently diagnosed with diverticul itis [...] assessment and plan as documented by the press assistant. I provided real time medical direction for [...] Cramer Member ID Guarantor Name 06/08/2023 1 [facility] - DOS PRIOR TO 2022 - DUAL ELIGIBLE (MEDICARE REPLACEMENT/ADV ANTAGE - HMO) Lois Dalton [id number] Lois Dalton 06/08/2023 1 [facility] - DOS ON OR AFTER 2022 - DUAL ELIGIBLE - CUSTODIAL OPTIONS AND ONE CARE (MEDICARE REPLACEMENT/ADV ANTAGE - HMO) Lois Dalton [id number] Lois Dalton Notes Date Note Type Note Provider Name and Address Organization Details Recorded Time 01/11/2022 text/html [facility] Nursing Assessment: Chief Complaints: Abdominal Pain PMH: Hypertension, COPD/Asthma, Diabetes Allergies: No Known Comments: Family of member request [facility] visit for eval abdominal pain x 5 days eval at ED dx with diverticulitis taking antibiotics cont with pain deny fever/chills refuse ED ....................... ....................... ....................... ....................... ....................... ....................... ... Cena Note: Community Cena Shelly WESTON6 dispatched to a yellow for a 66 yof w/ abd pain. Upon arrival, the pt was sitting up in bed, WILHELM X4, holding her abdomen and grimacing in pain. She stated that she went to the ED recently for abd pain and was diagnosed with diverticulitis, w/ imaging. Her pediatric allergist recommended that she go to the ED. [...] ... Disposition: Fulfilled Nancy Garcia MD [address] [facility],[address], [place], [address], [employer] 01/13/2022 09:59:42 OBGyn Episode No OBEpisode recorded.
--- OUTSIDE RECORDS SUMMARY | 2025-02-13 19:58 | XMS_ITS | Encounter Summary ---
Author Organization [employer] Address [address] 7t [place] [address] Care Team Providers Care Improvement Specialist Name Role Phone Breanna Zamudio Primary Care Provider [phone] Ludmila Walker MD Unavailable [phone] Reason for Visit * Reason Onset Date Comments chartprep 02/08/2025 Encounter Details Date Type Department Care Team ([facility] st Contact Info) Description 02/08/2025 Telephone [facility] MEDICINE 230 [place], [place] [phone] Breanna Zamudio ANP 230 [place], [place] [phone] chartprep Social History Tobacco Use Types Packs/Day Years [...] encounter Miscellaneous Notes * Telephone Encounter - Zayra Thomas [place] - 02/08/2025 1:10 PM EST ..Chart Prep Labs: done Images: done CT abd Vaccines due: Covid Due, Hep B Due, RSV in Pharmacy Due, and Shingles in pharmacy Due Referrals: Not Applicable Screenings: Eye Exam and Foot Exam Overdue care gaps: A1C, Glucose, Sbirt, PHQ9, and GAD7 documented in this encounter Plan of Treatment Upcoming Encounters Date Type Department Care Team ([facility] st Contact Info) Description 03/02/2025 1:00 PM EST Clinical Support [facility] MED & PEDS 505 [place] [address] Sis Coppola, AIDA 505 [place] [address] documented as of this encounter Goals Goal [...] Weekly blood pressure task No Hawa Manzano RAGMAN Patient has chronic kidney disease Care Plan Patient has chronic kidney disease No Hawa Manzano LPN Patient has chronic kidney disease Care Plan Patient has chronic kidney disease No Hawa Manzano LPN Weekly blood pressure task Care Plan Weekly blood pressure task No Ssi Coppola RN Weekly blood pressure task Care [...] 02/08/2025 Patient has chronic kidney disease 02/08/2025 documented as of this encounter Care Teams Improvement Specialist Relationship Specialty Start Date End Date Breanna Zamudio ANP [address] [place] [address] PCP - General Family Medicine 10/03/19 Ludmila Walker MD [address] [place] [address] 3rd [place] [address] Gastroenterology 11/22/24 [facility] 07/31/23 documented as of this encounter
--- OUTSIDE RECORDS SUMMARY | 2025-02-13 19:58 | XMS_ITS | Encounter Summary ---
Author Organization [employer] Address [address] 7t [place] [address] Care Team Providers Care Wash Barrel Leader Name Role Phone Breanna Zamudio Primary Care Provider [phone] Ludmila Walker MD Unavailable [phone] Reason for Visit * Reason Onset Date Comments FYI 08/31/2023 Encounter Details Date Type Department Care Team ([facility] st Contact Info) Description 08/31/2023 Telephone [facility] MEDICINE 230 [place], [place] [phone] Breanna Zamudio ANP 230 [place], [place] [phone] FYI Social History Tobacco Use Types Packs/Day [...] - 08/31/2023 2:36 PM EDT Tc from [facility] (Physical Therapist) with [facility] calling to inform pt is getting discharge as of today from PT services. Any questions [phone] documented in this encounter Plan of Treatment Upcoming Encounters Date Type Department Care Team (Late st Contact Info) Description 03/02/2025 1:00 PM EST Clinical Support [facility] MED & PEDS 505 [place] [address] Sis Coppola, RN [address] [place] [address] documented as of this encounter Visit Diagnoses Not on filedocumented in this encounter Care Teams Wash Barrel Leader Relationship Specialty Start Date End Date Breanna Zamudio ANP [address] [place] [address] PCP - General Family Medicine 10/03/19 Ludmila Walker MD [address] 3rd [place] [address] Gastroenterology 11/22/24 [facility] 07/31/23 documented as of this encounter
--- OUTSIDE RECORDS SUMMARY | 2025-02-13 19:58 | XMS_ITS | Encounter Summary ---
Author Organization [employer] Address [address] 7t [place] [address] Care Team Providers Care 911 Operator Name Role Phone Breanna Zamudio Primary Care Provider [phone] Ludmila Walker MD Unavailable [phone] Reason for Visit * Reason Onset Date Comments Med Refill 01/21/2024 Encounter Details Date Type Department Care Team (Late st Contact Info) Description 01/21/[address] [facility] MEDICINE 230 [place], [place] [phone] Breanna Zamudio ANP 230 [place], [place] [phone] Med Refill Social History Tobacco Use Types [...] immediate release tablet To be sent to: [facility] - [place], [place] - [address] [place] [address] documented in this encounter Plan of Treatment Upcoming Encounters Date Type Department Care Team ([facility] st Contact Info) Description 03/02/2025 1:00 PM EST Clinical Support [facility] MED & PEDS 505 [place] [address] Sis Coppola, AIDA 505 [place] [address] documented as of this encounter Visit Diagnoses Not on filedocumented in this encounter Care Teams 911 Operator Relationship Specialty Start Date End Date Breanna Zamudio ANP 230 [place] [address] PCP - General Family Medicine 10/03/19 Ludmila Walker MD [address] [place] [address] 3rd [place] [address] Gastroenterology 11/22/24 [facility] 07/31/23 documented as of this encounter
--- OUTSIDE RECORDS SUMMARY | 2025-02-13 19:58 | XMS_ITS | Encounter Summary ---
Author Organization [employer] Address [address] 7t [place] [address] Care Team Providers Care Cane Flume Chute Operator Name Role Phone Breanna Zamudio Primary Care Provider [phone] Ludmila Walker MD Unavailable [phone] Reason for Visit * Reason Comments Med Refill Encounter Details Date Type Department Care Team ([facility] st Contact Info) Description 08/24/2023 Refill [facility] MEDICINE 230 [place], [place] [phone] Breanna Zamudio ANP 230 [place], [place] [phone] Ischemic colitis ([facility]/HCC) Social History Tobacco Use Types [...] Upcoming Encounters Date Type Department Care Team ([facility] st Contact Info) Description 03/02/2025 1:00 PM EST Clinical Support [facility] MED & PEDS 505 [place] [address] Sis Coppola, AIDA 505 [place] [address] documented as of this encounter Visit Diagnoses Diagnosis Ischemic colitis (CMS/HCC) documented in this encounter Care Teams Cane Flume Chute Operator Relationship Specialty Start Date End Date Breanna Zamudio ANP [address] [place] [address] PCP - General Family Medicine 10/03/19 Ludmila Walker MD [address] [place] [address] Drive 3rd [place] [address] Gastroenterology 11/22/24 [facility] 07/31/23 documented as of this encounter
--- OUTSIDE RECORDS SUMMARY | 2025-02-13 19:58 | XMS_ITS | Encounter Summary ---
Author Organization [employer] Address [address] 7t [place] [address] Care Team Providers Care Clearance Center Manager Name Role Phone Breanna Zamudio Primary Care Provider [phone] Ludmila Walker MD Unavailable [phone] Reason for Visit * Reason Onset Date Comments Appointment Request 02/03/2025 Encounter Details Date Type Department Care Team ([facility] st Contact Info) Description 02/03/2025 Telephone [facility] MEDICINE 230 [place], [place] [phone] Breanna Zamudio ANP 230 [place], [place] [phone] Appointment Request Social History Tobacco Use Types [...] encounter Miscellaneous Notes * Telephone Encounter - Deepti Acosta - 02/03/2025 8:30 AM EST TC reji Sandoval requesting a call back to R/S appointment from 01/23 TEAR DOWN MAN Televisit; [facility] pt. PCP Dr. Zamudio documented in this encounter Plan of Treatment Upcoming Encounters Date Type Department Care Team ([facility] st Contact Info) Description 03/02/2025 1:00 PM EST Clinical Support [facility] MED & PEDS 505 [place] [address] Sis Coppola RN 505 [place] [address] documented as of this encounter Goals Goal [...] 02/03/2025 Patient has chronic kidney disease 02/03/2025 documented as of this encounter Care Teams Clearance Center Manager Relationship Specialty Start Date End Date Breanna Zamudio ANP [address] [place] [address] PCP - General Family Medicine 10/03/19 Ludmila Walker MD [address] [place] [address] 3rd [place] [address] Gastroenterology 11/22/24 [facility] 07/31/23 documented as of this encounter
--- OUTSIDE RECORDS SUMMARY | 2025-02-13 19:58 | XMS_ITS | Encounter Summary ---
Author Organization [employer] Address [address] 7t [place] [address] Care Team Providers Care Package Lift Operator Name Role Phone Breanna Zamudio Primary Care Provider [phone] Ludmila Walker MD Unavailable [phone] Reason for Visit * Reason Onset Date Comments Med Refill 03/15/2024 Encounter Details Date Type Department Care Team ([facility] st Contact Info) Description 03/15/2024 Telephone [facility] MEDICINE 230 [place], [place] [phone] Breanna Zamudio ANP 230 [place], [place] [phone] Med Refill Social History Tobacco Use Types [...] immediate release tablet To be sent to: [facility] pharmacy documented in this encounter Plan of Treatment Upcoming Encounters Date Type Department Care Team (Late st Contact Info) Description 03/02/2025 1:00 PM EST Clinical Support [facility] MED & PEDS 505 [place] [address] Sis Coppola RN 505 [place] [address] documented as of this encounter Visit Diagnoses Not on filedocumented in this encounter Care Teams Package Lift Operator Relationship Specialty Start Date End Date Breanna Zamudio ANP [address] [place] [address] PCP - General Family Medicine 10/03/19 Ludmila Walker MD [address] [place] [address] 3rd [place] [address] Gastroenterology 11/22/24 [facility] 07/31/23 documented as of this encounter
--- OUTSIDE RECORDS SUMMARY | 2025-02-13 19:58 | XMS_ITS | Encounter Summary ---
Author Organization [employer] Address [address] [facility] 7t [place] [address] Care Team Providers Care Neon Sign Servicer Name Role Phone Breanna Zamudio Primary Care Provider [phone] Ludmila Walker MD Unavailable [phone] Reason for Visit * Reason Onset Date Comments Med Refill 10/27/2023 Encounter Details Date Type Department Care Team (Late st Contact Info) Description 10/27/2023 Telephone [facility] MEDICINE 230 [place], [place] [phone] Breanna Zamudio ANP 230 [place], [place] [phone] Med Refill Social History Tobacco Use Types [...] tablet To be sent to: [facility] Pharmacy documented in this encounter Plan of Treatment Upcoming Encounters Date Type Department Care Team (Late st Contact Info) Description 03/02/2025 1:00 PM EST Clinical Support [facility] CHC MED & PEDS 505 [place] [address] Sis Coppola RN 505 [place] [address] documented as of this encounter Visit Diagnoses Not on filedocumented in this encounter Care Teams Neon Sign Servicer Relationship Specialty Start Date End Date Breanna Zamudio ANP [address] [place] [address] PCP - General Family Medicine 10/03/19 Ludmila Walker MD [address] 3rd [place] [address] Gastroenterology 11/22/24 [facility] 07/31/23 documented as of this encounter
--- OUTSIDE RECORDS SUMMARY | 2025-02-13 19:58 | XMS_ITS | Encounter Summary ---
Author Organization [employer] Address [address] [facility] 7t [place] [address] Care Team Providers Care Embalmer Apprentice Name Role Phone Breanna Zamudio Primary Care Provider [phone] Ludmila Walker MD Unavailable [phone] Reason for Visit * Reason Comments Med Refill Encounter Details Date Type Department Care Team ([facility] st Contact Info) Description 12/05/2024 Refill [facility] MEDICINE 230 [place], [place] [phone] Breanna Zamudio ANP 230 [place], [place] [phone] Long-term current use of opiate analgesic; Osteoarthritis [...] 03/02/2025 1:00 PM EST Clinical [facility] 505 [place] [address] Sis Coppola, RN 505 [place] [address] documented as of this encounter Visit Diagnoses Diagnosis Long-term current use of opiate analgesic Encounter for long-term (current) use of other medications Osteoarthritis of multiple joints, unspecified osteoarthritis type Arthralgia, unspecified joint documented in this encounter Care Teams Embalmer Apprentice Relationship Specialty Start Date End Date Breanna Zamudio ANP [address] [place] [address] PCP - General Family Medicine 10/03/19 Ludmila Walker MD [address] [place] [address] Drive 3rd [place] [address] Gastroenterology 11/22/24 [facility] 07/31/23 documented as of this encounter
--- OUTSIDE RECORDS SUMMARY | 2025-02-13 19:58 | XMS_ITS | Encounter Summary ---
Author Organization [employer] Address [address] [facility] [address] 7t [place] [address] Care Team Providers Care Melter Supervisor Electric Arc Furnace Name Role Phone Breanna Zamudio Primary Care Provider [phone] Ludmial Walker MD Unavailable [phone] Reason for Visit * Reason Comments Med Refill Encounter Details Date Type Department Care Team ([facility] Contact Info) Description 04/07/2022 Refill [facility] MED & PEDS 505 [place] [address] Breanna Zamudio ANP 230 [place] [address] Pain in unspecified joint Social History Tobacco [...] Upcoming Encounters Date Type Department Care Team ([facility] Contact Info) Description 03/02/2025 1:00 PM EST Clinical Support [facility] MED & PEDS 505 [place] [address] Sis Coppola, AIDA 505 [place] [address] documented as of this encounter Visit Diagnoses Diagnosis Pain in unspecified joint documented in this encounter Care Teams Melter Supervisor Electric Arc Furnace Relationship Specialty Start Date End Date Breanna Zamudio ANP [address] [place] [address] PCP - General Family Medicine 10/03/19 Ludmila Walker MD [address] [place] [address] 3rd [place] [address] Gastroenterology 11/22/24 [facility] 07/31/23 documented as of this encounter
--- OUTSIDE RECORDS SUMMARY | 2025-02-13 19:58 | XMS_ITS | Encounter Summary ---
Author Organization [employer] Address [address] [facility] [address] 7t [place] [address] Care Team Providers Care Continuous Drier Operator Name Role Phone Breanna Zamudio Primary Care Provider [phone] Ludmila Walker MD Unavailable [phone] Reason for Visit * Reason Comments Med Refill Encounter Details Date Type Department Care Team (Late st Contact Info) Description 10/10/2024 Refill [facility] CHC MED & PEDS [address] [place], [place] [phone] Breanna Zamudio ANP [address] [place] [address] Long-term current use of opiate analgesic; Osteoarthritis [...] PM EST Clinical Support [facility] MED & PEDS 505 [place] [address] Sis Coppola, AIDA 505 [place] [address] documented as of this encounter Visit Diagnoses Diagnosis Long-term current use of opiate analgesic Encounter for long-term (current) use of other medications Osteoarthritis of multiple joints, unspecified osteoarthritis type Arthralgia, unspecified joint documented in this encounter Care Teams Continuous Drier Operator Relationship Specialty Start Date End Date Breanna Zamudio ANP [address] [place] [address] PCP - General Family Medicine 10/03/19 Ludmila Walker MD [address] [place] [address] Drive 3rd [place] [address] Gastroenterology 11/22/24 [facility] 07/31/23 documented as of this encounter
--- OUTSIDE RECORDS SUMMARY | 2025-02-13 19:58 | XMS_ITS | Encounter Summary ---
Author Organization [employer] Address [address] [facility] [address] 7t [place] [address] Care Team Providers Care Business Systems Consultant Name Role Phone Breanna Zamudio Primary Care Provider [phone] Ludmila Walker MD Unavailable [phone] Encounter Details Date Type Department Care Team (Late st Contact Info) Description 08/06/2023 Telephone [facility] MEDICINE 230 [place], [place] [phone] Breanna Zamudio ANP 230 [place], [place] [phone] Social History Tobacco Use Types Packs/Day Years [...] the past 12 months, has t he [employer], gas, oil or water [employer] threatened to shut off services in your [...] Description 03/02/2025 1:00 PM EST Clinical Support [facility] MED & PEDS 505 [place] [address] Sis Coppola, AIDA 505 [place] [address] documented as of this encounter Visit Diagnoses Not on filedocumented in this encounter Care Teams Business Systems Consultant Relationship Specialty Start Date End Date Breanna Zamudio ANP [address] [place] [address] PCP - General Family Medicine 10/03/19 Ludmila Walker MD [address] [place] [address] 3rd [place] [address] Gastroenterology 11/22/24 [facility] 07/31/23 documented as of this encounter
--- OUTSIDE RECORDS SUMMARY | 2025-02-13 19:58 | XMS_ITS | Encounter Summary ---
Author Organization [employer] Address [address] 7t [place] [address] Care Team Providers Care Crop Picker Name Role Phone Breanna Zamudio Primary Care Provider [phone] Ludmila Walker MD Unavailable [phone] Encounter Details Date Type Department Care Team (Late st Contact Info) Description 08/31/2023 Telephone [facility] MEDICINE 230 [place], [place] [phone] Breanna Zamudio ANP 230 [place], [place] [phone] Social History Tobacco Use Types Packs/Day Years [...] 03/02/2025 1:00 PM EST Clinical Support [facility] MED & PEDS 505 [place] [address] Sis Coppola, AIDA 505 [place] [address] documented as of this encounter Visit Diagnoses Not on filedocumented in this encounter Care Teams Crop Picker Relationship Specialty Start Date End Date Breanna Zamudio ANP [address] [place] [address] PCP - General Family Medicine 10/03/19 Ludmila Walker MD [address] 3rd [place] [address] Gastroenterology 11/22/24 [facility] 07/31/23 documented as of this encounter
--- OUTSIDE RECORDS SUMMARY | 2025-02-13 19:58 | XMS_ITS | Encounter Summary ---
Author Organization [employer] Address [address] [facility] [address] 7t [place] [address] Care Team Providers Care Mill Hand Name Role Phone Breanna Zamudio Primary Care Provider [phone] Ludmila Walker MD Unavailable [phone] Reason for Visit * Reason Onset Date Comments Medication Question 02/02/2025 Encounter Details Date Type Department Care Team ([facility] st Contact Info) Description 02/02/2025 Telephone [facility] MEDICINE 230 [place], [place] [phone] Breanna Zamudio ANP 230 [place], [place] [phone] Medication Question Social History Tobacco Use Types [...] * Telephone Encounter - Isael Kelly - 02/02/2025 12:21 PM EST TC from pt reports Pharmacy receiving a script for oxyCODONE (Roxicodone) 10 MG immediate release table 28 tablets. Pt states she normally gets 120 tablets and that this maybe an error . Pt looking for new script to be sent for 120 prior to pharmacy filling it tomorrow, documented in this encounter Plan of Treatment Upcoming Encounters Date Type Department Care Team ([facility] st Contact Info) Description 03/02/2025 1:00 PM EST Clinical Support [facility] MED & PEDS 505 [place] [address] Sis Coppola, AIDA 505 [place] [address] documented as of this encounter Goals Goal [...] has chronic kidney disease No Isael Kelly documented as of this encounter Visit Diagnoses [...] 02/02/2025 Patient has chronic kidney disease 02/02/2025 documented as of this encounter Care Teams Mill Hand Relationship Specialty Start Date End Date Breanna Zamudio ANP 230 [place] [address] PCP - General Family Medicine 10/03/19 Ludmila Walker MD [address] [place] [address] 3rd [place] [address] Gastroenterology 11/22/24 [facility] 07/31/23 documented as of this encounter
--- OUTSIDE RECORDS SUMMARY | 2025-02-13 19:58 | XMS_ITS | Encounter Summary ---
Author Organization [employer] Address [address] [facility] [address] 7t [place] [address] Care Team Providers Care Dockworker Name Role Phone Breanna Zamudio Primary Care Provider [phone] Ludmila Walker MD Unavailable [phone] Reason for Visit * Reason Onset Date Comments Med Refill 12/05/2024 Encounter Details Date Type Department Care Team (Late st Contact Info) Description 12/05/2024 Telephone [facility] MEDICINE 230 [place], [place] [phone] Breanna Zamudio ANP 230 [place], [place] [phone] Med Refill Social History Tobacco Use Types [...] immediate release tablet To be sent to: [facility] documented in this encounter Plan of Treatment Upcoming Encounters Date Type Department Care Team (Late st Contact Info) Description 03/02/2025 1:00 PM EST Clinical Support [facility] MED & PEDS 505 [place] [address] Sis Coppola, AIDA 505 [place] [address] documented as of this encounter Visit Diagnoses Not on filedocumented in this encounter Care Teams Dockworker Relationship Specialty Start Date End Date Breanna Zamudio ANP [address] [place] [address] PCP - General Family Medicine 10/03/19 Ludmila Walker MD [address] [place] [address] Drive 3rd [place] [address] Gastroenterology 11/22/24 [facility] 07/31/23 documented as of this encounter
--- OUTSIDE RECORDS SUMMARY | 2025-02-13 19:59 | XMS_ITS | Encounter Summary ---
Author Organization [employer] Address [address] [place] [address] 7t [place] [address] Care Team Providers Care Food Chemist Name Role Phone Breanna Zamudio Primary Care Provider [phone] Ludmila Walker MD Unavailable [phone] Reason for Visit * Reason Comments Med Refill Encounter Details Date Type Department Care Team (Late st Contact Info) Description 11/21/2022 Refill [facility] MEDICINE 230 [place] [address] Breanna Zamudio ANP 230 [place] [address] Pain in unspecified joint Social History Tobacco [...] Description 03/02/2025 1:00 PM EST Clinical Support [facility] MED & PEDS 505 [place], [place] [phone] Sis Coppola, RN 505 [place], [place] [phone] documented as of this encounter Visit Diagnoses Diagnosis Pain in unspecified joint documented in this encounter Care Teams Food Chemist Relationship Specialty Start Date End Date Breanna Zamudio ANP [address] [place] [address] PCP - General Family Medicine 10/03/19 Ludmila Walker MD [address] [place] [address] 3rd [place] [address] Gastroenterology 11/22/24 [facility] 07/31/23 documented as of this encounter
--- OUTSIDE RECORDS SUMMARY | 2025-02-13 19:59 | XMS_ITS | Encounter Summary ---
Author Organization [employer] [facility] Address [address] [facility] 7t [place] [address] Care Team Providers Care Building Official Name Role Phone Breanna Zamudio Primary Care Provider [phone] Ludmila Walker MD Unavailable [phone] Encounter Details Date Type Department Care Team (Late Contact Info) Description 03/19/[address] [facility] MED & PEDS 505 [place], [place] [phone] Breanna Zamudio ANP 230 [place] [address] Moderate persistent asthma without complication (Primary Dx) [...] Description 03/02/2025 1:00 PM EST Clinical Support [facility] MED & PEDS 505 [place] [address] Sis Coppola, AIDA 505 [place], [place] documented as of this encounter Visit Diagnoses Diagnosis Moderate persistent asthma without complication- Primary documented in this encounter Care Teams Building Official Relationship Specialty Start Date End Date Breanna Zamudio ANP 230 [place] [address] PCP - General Family Medicine 10/03/19 Ludmila Walker MD [address] [place] [address] Drive 3rd [place] [address] Gastroenterology 11/22/24 [facility] 07/31/23 documented as of this encounter
--- OUTSIDE RECORDS SUMMARY | 2025-02-13 19:59 | XMS_ITS | Encounter Summary ---
Author Organization [employer] Address [address] [facility] 7t [place] [address] Care Team Providers Care Assistant Press Operator Name Role Phone Breanna Zamudio Primary Care Provider [phone] Ludmila Walker MD Unavailable [phone] Reason for Visit * Reason Onset Date Comments Med Refill 02/27/2023 Encounter Details Date Type Department Care Team (Late st Contact Info) Description 02/27/2023 Telephone [facility] MEDICINE 230 [place], [place] [phone] Breanna Zamudio ANP 230 [place], [place] [phone] Med Refill Social History Tobacco Use Types [...] [facility] MED & PEDS 505 [place] [address] Sis Coppola, AIDA 505 [place] [address] documented as of this encounter Visit Diagnoses Not on filedocumented in this encounter Care Teams Assistant Press Operator Relationship Specialty Start Date End Date Breanna Zamudio ANP [address] [place] [address] PCP - General Family Medicine 10/03/19 Ludmila Walker MD [address] [place] [address] 3rd [place] [address] Gastroenterology 11/22/24 [facility] 07/31/23 documented as of this encounter
--- OUTSIDE RECORDS SUMMARY | 2025-02-13 19:59 | XMS_ITS | Encounter Summary ---
Author Organization [employer] Address [address] [place] [address] 7t [place] [address] Care Team Providers Care Spring Assembler Name Role Phone Breanna Zamudio Primary Care Provider [phone] Ludmila Walker MD Unavailable [phone] Reason for Visit * Reason Comments Med Refill Encounter Details Date Type Department Care Team (Late st Contact Info) Description 12/02/2022 Refill [facility] MEDICINE 230 [place] [address] Breanna Zamudio ANP 230 [place] [address] Pain in unspecified joint Social History Tobacco [...] Description 03/02/2025 1:00 PM EST Clinical Support [facility] CHC MED & PEDS 505 [place], [place] [phone] Sis Coppola, RN 505 [place], [place] [phone] documented as of this encounter Visit Diagnoses Diagnosis Pain in unspecified joint documented in this encounter Care Teams Spring Assembler Relationship Specialty Start Date End Date Breanna Zamudio ANP [address] [place] [address] PCP - General Family Medicine 10/03/19 Ludmila Walker MD [address] [place] [address] 3rd [place] [address] Gastroenterology 11/22/24 [facility] 07/31/23 documented as of this encounter
--- OUTSIDE RECORDS SUMMARY | 2025-02-13 19:59 | XMS_ITS | Data Portability ---
Author Organization [facility], Main Office Address [address] [place] [address] Care Team Providers Care Fowl Blood Tester Name Role Phone SANDRITA BEARDEN 1ST FLOOR OTHER [phone] ALBANIA CIFUENTES Primary Care Provider Assessment Encounter Date Assessment Date Assessment LastModified by Organization Details LastModified Time 08/04/2018 08/04/2018 Hgb 11.5, Hct 34.7 in hospital [facility] Not available 08/04/2018 08:51:23 Plan [...] By Organization Details Last Modified Time 08/06/2018 [id number] Also, for PCP to evaluate whether or [...] knee joint Active [address] [facility] [address], [address], [place], [address], [facility] 9 08:19:48 Asthma 232246685 Active 2018 SARAH MATIAS [address] , [address], [place], [address], [facility] 9 08:23:00 Gastroesophage al reflux disease without esophagitis 359122185 Active 2018 SARAH MATIAS [address], [address], [place], [address], [facility] 9 08:23:06 Essential hypertension 18327349 Active 2018 SARAH MATIAS [address], [place], [address], [facility] 9 08:23:16 Hypothyroidism 35701668 Active 2018 SARAH MATIAS [address] , [address], [place], [address], [facility] 9 08:23:25 Type 2 diabetes mellitus 15245273 Active 2018 SARAH MATIAS [address], [place], [address], [facility] 9 08:23:34 Anxiety 57948628 Active [address] [facility], [address], [place], [address], [facility] 9 08:24:11 Hormone therapy Active 2018 SARAH MATIAS [address], [place], [address], [facility] 9 08:24:30 Chronic constipation 040978168 Active 2018 SARAH MATIAS [address], [place], [address], [facility] 9 08:25:50 Acute urinary tract infection 078045172 Active 2018 SARAH MATIAS [address], [place], [address], [facility] 9 08:26:59 Hypercholester olemia 83418216 Active 2018 SARAH MATIAS [address], [place], [address], [facility] 9 08:28:38 Depressive disorder 34613756 Active 2018 HILARIA SARAH SOMMER [address] [facility], [address], [place], [address], [facility] 9 08:42:14 Falls 093811340 Active 2018 [address] [facility], [address], [place], [address], [facility] 9 09:41:31 Gastroesophage al reflux disease 591378528 Active 2018 Eliza Garza MD [address] [facility], [address], [place], [address], [facility] 9 11:39:19 Problem Notes None recorded. Medical [...] temperature Heart rate Respiratory rate Oxygen saturation Systolic And Diastolic Provider Name and Address Organization Details Last Updated DateTime 9 97.7 [degF] 84 /min 20 /min 96 % 156/70 mm[Hg] SARAH MATIAS [address] [facility], [facility] [address], [place], [address], [facility] 9 08:17:26 Date Recorded Systolic And Diastolic Provider Name and Address Organization Details Last Updated DateTime 08/06/2018 156/70 mm[Hg] Eliza Garza MD [address] [facility], [facility] [address], [place], [address], [facility] 08/06/2018 11:18:46 Social History Question Answer Notes LastModified by Organizat ion Details LastModified Time Tobacco Smoking Status Never Smoker Not Available [employer] 01/10/2020 03:13:23 Do You Have An Advance Directive? Yes FULL CODE- Use Dialysis, Nutrtition And Hydration [id number] Information not available 01/10/2020 How Much Tobacco Do You Chew? None [id number] Information not available 01/10/2020 Do You Have A Medical Power Of Rough Planer Tender? Yes HCP On File [id number] Information not available 01/10/2020 What Was The Date Of Your Most Recent Tobacco Screening? 08/04/2018 [id number] Information not available 01/10/2020 Sex: Unknown Functional Status Question Answer Note LastModified by Organization D etails LastModified Time What is your level of alcohol consumption? None [id number] Information not available 01/10/2020 Mental Status None recorded. Family History Nothing Reported. Medical History No medical history recorded. Gynecological HistoryNo gynecological history recorded. Obstetrics History GPAL:G 0 P 0 0 0 0 Immunizations Vaccine Type Date Status Note Provider Nam e and Address Organization Details Recorded Time Hep B, unspecified formulation 7 completed Dannaromi Ocampo [facility] [address] 07/21/2023 15:47:49 Hep B, unspecified formulation 8 completed Danna Terrence [facility] [address] 07/21/2023 15:47:57 Tdap 7 completed Danna Ocampo [facility] [address] 07/21/2023 15:48:12 Td(adult) unspecified formulation 7 completed Danna Terrence [facility] [address] 07/21/2023 15:48:25 Pneumococcal conjugate PCV20, polysaccharide [id number] conjugate, adjuvant, PF 3 completed Danna Ocampo [facility] [address] 07/21/2023 15:53:08 influenza, unspecified formulation 3 completed Danna Ocampo [facility] [address] 07/21/2023 16:00:43 influenza, unspecified formulation 3 completed Danna Ocampo [facility] [address] 07/21/2023 16:01:16 Hep A, unspecified formulation 7 completed Danna Ocampo [facility] 07/21/2023 16:08:25 Hep A, unspecified formulation 8 completed Danna Ocampo [facility] [address] 07/21/2023 16:08:36 SARS-COV-2 (COVID-19) vaccine, UNSPECIFIED 1 completed [facility] 07/21/2023 16:11:09 SARS-COV-2 (COVID-19) vaccine, UNSPECIFIED 1 completed [facility] 07/21/2023 16:11:19 SARS-COV-2 (COVID-19) vaccine, UNSPECIFIED 2 completed [facility] 07/21/2023 16:11:32 SARS-COV-2 (COVID-19) vaccine, UNSPECIFIED 3 completed [facility] 07/21/2023 16:12:34 zoster, unspecified formulation 7 completed [facility] 07/21/2023 16:12:52 Past Encounters Encounter ID Performer Location Encounter Start Date Encounter Closed Date Diagnosis/Indication Diagnosis SNOMED-CT Code Diagnosis ICD10 Code Diagnosis IMO Codes Diagnosis Note [id number] SARAH MATIAS [address] [address] 08/04/2018 08:13:08 08/06/2018 15:43:41 Replacement of total knee joint 807572468 Z96.651 PT/OT eval and treat for gait training and strengthen ingROM 0-120WBATl imit stair climbingno showersuse a walkerkeep aquacel dressing clean and intactoxyc odone 10 mg q 4 hrs prnultram 50 mg q 6 hrs prntylenol 650 mg q 6 hrs scheduledA SA 325 mg bid x 15 dayspost op appt with ortho on 08/11/18 Acute urin gael tract infection 922323879 N30.00 keflex 500 mg bid x 5 daysmonito r for resolution Asthma 665380888 J45.99 8 albuterol hfa 1-2 puffs q 4 hrs prnqvar 40 mcg 2 puffs bidmonitor for respirator y symptoms Gastroesop hageal reflux disease without esophagitis 368219839 K21.9 dexlansopr azole 60 mg qdmonitor for symptoms Type 2 radha betes mellitus 92798494 E11.9 trulicity 1.5 mg q weekglybur lima 1.25 mg qdlantus 28 units q pmmetformi n er 500 mg q am and 1000 mg q pmmonitor for s/s of hypo/hyper glycemia Essential hypertension 20278041 I10 lasix 20 mg qdHCTZ 50 mg qdlisinopr il 40 mg qdmetoprol ol succinate 200 mg qdverapami l er 360 mg qdmonitor b/p and pulse Hypothyroidism 02895435 E03.8 levothyrox ine 75 mcg qdmonitor TSH Hormone re placement therapy 102921475 Z79.890 estradiol 1 mg qdmonitor Anxiety 16082265 F41.1 atarax 50 mg q 6 hrs prnativan 1 mg bid prndiscuss ed risk vs benefit of ativan with patientmon itor for anxiety Depressive disorder 3541 6277 F32.89 effexor 75 mg bidtrazodo ne 50 mg q hsdiscusse d risk vs benefit of effexor and trazodone with patientmon itor moodpsych eval and treat prn Chronic constipation 236 084608 K59.09 linaclotid e 72 mg qdmonitor constipati on with opioid use Hypercholesterolemia 136 05004 E78.2 crestor 20 mg q hsmonitor labs [place] 521053451 R29.6 PT/OT eval and treatmonit or for safetyenco urage walker use [id number] Eliza Garza MD [address] [address] 08/06/2018 11:17:07 08/11/2018 09:54:55 Asthma 745318966 J45.30 Qvar 1 puff bidprovent il HFA 2 puffs q4h prn Chronic constipation 236 687547 K59.09 good bowel regimenLin zess 72 mcg daily Depressive disorder 3540 8797 F32.89 trazodone 50 mg at hsvenlafax ine ER 75 mg dailyfu psych prn Hypothyroidism 05590912 E03.8 levothyrox ine 75 mcg dailyfu as outpatient Acute urin gael tract infection 460734211 N30.00 finish course cephalexin 500 mg bidencoura ge good hydrationf u prn Type 2 radha betes mellitus 46838382 E11.9 metformin ER 1000 mg in evening and ER 500 mg in morninggly buride 1.25 mg dailyLantu s 28U dailyTruli city 1.5mg once a week continue to monitor with PCP when outpatient Essential hypertension 11573355 I10 HCTZ 50 mg dailyfuros emide 20 mg dailymetop rolol XL 200 mg dailyverap armen 360 mg dailylisin opril 40 mg dailyfor PCP to evaluate as outpatient if 2 different diuretics are needed - may be able to d/c either HCTZ or furosemide History of total knee arthroplasty 5379766126 105 Z96.651 continue PT/OTAPAP prnASA 325 mg bidoxycodo ne 10 mg q4h prntramado l 50 mg q8h prn Anxiety 62378275 F41.1 lorazepam 1 mg bid prnfu PCP Gastroesop hageal reflux disease 030299257 K21.9 Dexilant 60 mg dailyfu as outpatient Health Concerns Section Related Observation LastModified by Organization Detai ls LastModified Time None Recorded Concern Status LastModified by Organization Details LastModified Time None Recorded Advance Directives Directive Y: FULL CODE- use dialysis, nutrtition and hydration Payers Insurance Date Sequence Insurance Name Policy Number Policy Cramer Covered Member ID Cramer Member ID Guarantor Name 08/06/2018 2 [place] [facility] Lois Dalton [id number] Lois Dalton 07/21/[address] [facility] - DOS PRIOR TO 2022 - DUAL ELIGIBLE (MEDICARE REPLACEMENT/AD VANTAGE - HMO) Lois Dalton [id number] Lois Dalton 07/21/2023 [address] [facility] - DOS ON OR AFTER 2022 - MEDICARE ADVANTAGE [place] (MEDICARE REPLACEMENT/AD VANTAGE - PPO) Lois Dalton [id number] Lois Dalton Notes Date Note Type Note Provider Name and Address Organization Details Recorded Time 9 text/html A 63 year old female being seen for a initial intake note. Patient had an elective right knee replacement at [facility] on 07/26/18. She went home with vna despite attempts to get her to go to rehab. She attempted to get up out of her chair and walker was not locked causing her to fall. She then was able to ambulate for several days then ran out of pain medication. She went to [facility] er to get pain under control. X-ray and ultrasound were negative. While in the hospital she complained of burning on urination and frequency. A urine sample was sent which was positive for a UTI. She was sent here for some short term rehab. Medical history of constipation, anxiety/depression, HTN, DM, GERD, asthma, hypercholesterolemia and hormone replacement. SARAH MATIAS [address] [facility], [address], [place], [address], [employer] 08/04/2018 09:42:29 9 text/html ROS as noted in the HPI 63 year old female admitted to [facility] 08/03/18 for rehab after TKR 07/26/18. Patient had been discharged home 07/29/18 with VNA services after TKR and fell when attempted to get up out of chair when walker was not locked causing a fall. She was able to ambulate for several days then ran out of pain medication. She went to [facility] ER to get pain under control. X-ray and ultrasound were negative. While in the hospital she complained of burning on urination and frequency. A urine sample was sent which was positive for a UTI. She was sent here for some short term rehab. Medical history of constipation, anxiety/depression, HTN, DM, GERD, asthma, hypercholesterolemia and hormone replacement. Patient has done with PT/OT here at [facility] and is now ready for discharge with VNA services at home. Advance directives: full code Eliza Garza MD [address] [place] [address], [address], [place], [address], [employer] 08/06/2018 11:52:07 OBGyn Episode No OBEpisode recorded.
--- OUTSIDE RECORDS SUMMARY | 2025-02-13 19:59 | XMS_ITS | Encounter Summary ---
Author Organization [employer] Address [address] [facility] 7t [place] [address] Care Team Providers Care Softball Umpire Name Role Phone Breanna Zamudio Primary Care Provider [phone] Ludmila Walker MD Unavailable [phone] Reason for Visit * Reason Onset Date Comments Durable Medical Equipment 09/08/2022 Encounter Details Date Type Department Care Team (Late st Contact Info) Description 09/08/2022 Telephone [facility] [address] [place] [address] Breanna Zamudio ANP [address] [place] [address] Durable Medical Equipment Social History Tobacco Use [...] machines, please see notes,. Please contact at [phone] Mexican * Telephone Encounter - RICARDO Caraballo - 09/19/2022 6:26 PM EDT Yes, of course. Thank you. Will place signed RX on your desk. * Telephone Encounter - Madhuri Doe - 09/18/2022 1:56 PM EDT Tc from [facility] with [facility] requesting status on nebulizer. States if script has not been sent to [facility] [place], fax to [facility]. FAX: [phone] Please contact [facility] at [phone] ext [phone] * Telephone Encounter - Rosalinda Rucker - 09/08/2022 3:29 PM EDT Tc from patient requesting a new script for a nebulizer machine. States current one broke. documented in this encounter Plan of Treatment Upcoming Encounters Date Type Department Care Team (Late st Contact Info) Description 03/02/2025 1:00 PM EST Clinical Support [facility] MED & PEDS [address] [place] [address] Sis Coppola, RN [address] [place] [address] documented as of this encounter Visit Diagnoses Not on filedocumented in this encounter Care Teams Softball Umpire Relationship Specialty Start Date End Date Breanna Zamudio ANP [address] [place] [address] PCP - General Family Medicine 10/03/19 Ludmila Walker MD [address] [place] [address] [address] [place] [address] Gastroenterology 11/22/24 [facility] 07/31/23 documented as of this encounter
--- OUTSIDE RECORDS SUMMARY | 2025-02-13 19:59 | XMS_ITS | Encounter Summary ---
Author Organization [employer] Address [address] [place] [address] Care Team Providers Care Golf Player Assistant Name Role Phone Robb Breanna SILVA Primary Care Provider [phone] Ludmila Walker MD Unavailable [phone] Encounter Details Date Type Department Care Team (Latest Contact Info) Description 02/13/2025 Travel Social History Tobacco Use Types Packs/Day Years [...] AM EDT documented as of this encounter Functional Status * Over the past 2 weeks, how often have you been bothered by any of the following problems? Question Answer Date of Assessment Author Patient Health Questionnaire -2 Score 1 02/13/2025 1:01 PM Colt Snyder MA * Little interest or pleasure in doing things Answer Date of Assessment Author Several days 02/13/2025 1:01 PM Farhad Snyder MA * Feeling down, depressed, or hopeless Answer Date of Assessment Author Not at all 02/13/2025 1:01 PM Farhad Snyder MA * Trouble falling or staying asleep, or sleeping too much Answer Date of Assessment Author More than half the days 02/13/2025 1:01 PM Colt Manning MA * Feeling tired or having little energy Answer Date of Assessment Author Nearly every day 02/13/2025 1:01 PM Colt Snyder MA * Poor appetite or overeating Answer Date of Assessment Author Several days 02/13/2025 1:01 PM Farhad Snyder MA * Feeling bad about yourself - or that you are a failure or have let yourself or your family down Answer Date of Assessment Author Not at all 02/13/2025 1:01 PM Farhad Snyder MA * Trouble concentrating on things, such as reading the newspaper or watching television Answer Date of Assessment Author Not at all 02/13/2025 1:01 PM Farhad Snyder MA * Moving or speaking so slowly [...] Snyder MA documented as of this encounter Plan of Treatment Upcoming Encounters Date Type Department Care Team (Late st Contact Info) Description 03/02/2025 1:00 PM EST Clinical Support [facility] MED & PEDS [address] [place] [address] Sis Coppola, AIDA [address] [place] [address] documented as of this encounter Goals Goal [...] Plan Weekly blood pressure task No Breanna Zaumdio ANP Weekly blood pressure task Care Plan [...] documented as of this encounter Care Teams Golf Player Assistant Relationship Specialty Start Date End Date Breanna Zamudio ANP [address] [place] [address] PCP - General Family Medicine 10/03/19 Ludmila Walker MD [address] [place] [address] Drive 3rd [place] [address] Gastroenterology 11/22/24 [facility] 07/31/23 documented as of this encounter
--- OUTSIDE RECORDS SUMMARY | 2025-02-13 19:59 | XMS_ITS | Encounter Summary ---
Author Organization [employer] Address [address] [place] [address] Care Team Providers Care Rn Plasma Center Name Role Phone Breanna Zamudio Primary Care Provider [phone] Ludmila Walker MD Unavailable [phone] Reason for Visit * Reason Onset Date Comments Appointment Request 07/08/2024 Encounter Details Date Type Department Care Team ([facility] st Contact Info) Description 07/08/2024 Telephone [facility] [address] [place], [place] [phone] Breanna Zamudio ANP [address] [place], [place] [phone] Appointment Request Social History Tobacco Use Types [...] appt from 06/14/24. Pt is leaving to [place] on 07/09/24 at around 2 pm but pt was only given half of the pack for the Oxy and Spouse would like to see if anything can be done so that pt gets her full medication. Contact pt Spouse at [phone] documented in this encounter Plan of Treatment Upcoming Encounters Date Type Department Care Team (Late st Contact Info) Description 03/02/2025 1:00 PM EST Clinical Support [facility] MED & PEDS [address] [place] [address] Sis Coppola, AIDA [address] [place] [address] documented as of this encounter Visit Diagnoses Not on filedocumented in this encounter Care Teams Rn Plasma Center Relationship Specialty Start Date End Date Breanna Zamudio ANP [address] [place] [address] PCP - General Family Medicine 10/03/19 Ludmila Walker MD [address] 3rd [place] [address] Gastroenterology 11/22/24 [facility] 07/31/23 documented as of this encounter
--- OUTSIDE RECORDS SUMMARY | 2025-02-13 19:59 | XMS_ITS | Clinical Summary ---
Author Organization [employer] Address [address] [facility] [address] [place] [address] Care Team Providers Care Quality And Reliability Engineer Name Role Phone Robb [place] SILVA Primary Care Provider [phone] Ludmila Walker MD Unavailable [phone] Allergies No known active allergies Medications [...] 34 UNITS SUBCUTANEOUSLY EVERY EVENING Active Lancets (CelatonTouch Delica Plus Hhocum51D) misc TEST BLOOD SUGAR TWICE DAILY Active [...] ONCE A WEEK 024 Active Continuous Glucose Mechanical Planner (FreeStyle Manuelito 2 Hartley) device Use as directed 024 Active Continuous [...] tablet 2 02/01/20 25 12:25 PM EST Active venlafaxine XR (Effexor XR) 75 MG 24 hr capsuleIndicatio ns:Mixed anxiety and depressive disorder TAKE 1 CAPSULE BY MOUTH DAILY WITH 150 MG CAPSULE. DO NOT BREAK, CRUSH, DISSOLVE OR CHEW 90 capsule 1 Active naloxone (Narcan) 4 mg/0.1 mL nasal spray FOR SUSPECTED OPIOID OVERDOSE. SPRAY 0.1mL IN ONE NOSTRIL. REPEAT IN ALTERNATE NOSTRIL 2-3 MINUTES IF NEEDED. SEEK MEDICAL ATTENTION IMMEDIATELY EVEN IF PATIENT RESPONDS. 2 each 1 Active oxyCODONE (Roxicodone) 10 MG immediate release tabletIndication s:Long-term current use of opiate analgesic,Osteoa rthritis of multiple joints, unspecified osteoarthritis type,Arthralgia, unspecified joint Take 1 tablet (10 mg) by mouth every 6 (six) hours if needed for severe pain for up to 21 days. 84 tablet 025 2024 Active venlafaxine XR (Effexor XR) 150 MG 24 hr capsuleIndicatio ns:Mixed anxiety and depressive disorder TAKE 1 CAPSULE BY MOUTH DAILY WITH 75 MG CAPSULE. DO NOT BREAK, CRUSH, DISSOLVE OR CHEW 90 capsule 1 Active furosemide (Lasix) 20 MG tabletIndication s:Essential hypertension,Giacomo ateral leg edema Take 1 tablet (20 mg) by mouth Once per day. 90 tablet 1 025 2025 Active lidocaine (Lidoderm) 5 % patchIndications :Osteoarthritis of multiple joints, unspecified osteoarthritis type,Chronic midline thoracic back pain Apply 1 patch topically Once per day. Remove & discard patch within 12 hours or as directed by MD. 30 patch 2 Active psyllium (Metamucil Smooth Texture) 58.6 % powderIndication s:Irritable bowel syndrome with diarrhea 1 tsp powder in 8oz in water once daily 283 g 11 Active oxyCODONE (Roxicodone) 10 MG immediate release [...] available. 2 each 1 025 2024 Discontinued venlafaxine XR (Effexor XR) 150 MG 24 hr capsuleIndicatio ns:Mixed anxiety and depressive disorder TAKE 1 CAPSULE BY MOUTH DAILY WITH 75 MG CAPSULE. DO NOT BREAK, CRUSH, DISSOLVE OR CHEW 90 capsule 1 025 2024 Discontinued(R eorder (will not trigger notification to Pharmacy)) oxyCODONE (Roxicodone) 10 MG immediate release tabletIndication s:Long-term current use of opiate analgesic,Osteoa rthritis of multiple joints, unspecified osteoarthritis type,Arthralgia, unspecified joint Take 1 tablet (10 mg) by mouth every 6 (six) hours if needed for severe pain for up to 7 days. 28 tablet 02/04/20 25 12:10 PM EST 025 2024 Discontinued(R eorder (will not trigger notification to Pharmacy)) oxyCODONE (Roxicodone) 10 MG immediate release tabletIndication s:Long-term current use of opiate analgesic,Osteoa rthritis of multiple joints, unspecified osteoarthritis type,Arthralgia, unspecified joint Take 1 tablet (10 mg) by mouth every 6 (six) hours if needed for severe pain for up to 21 days. Do not start before February 08, 2025. 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 Walker, [facility] Tumor site: Gastric body Tumor size: [...] edema. I d/w patient that this a ad terminal makeup operator issue to fu with PCP, encouraged tight control of DM. 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 01/26/2015 Irritable bowel syndrome with diarrhea 5 Joint pain 01/26/2015 Moderate persistent asthma 01/26/2015 Type 2 diabetes mellitus 01/26/2015 Osteoarthritis 09/07/2014 Class 1 obesity with serious comorbidity and body mass index (BMI) of 33.0 to 33.9 in adult, unspecified obesity type 12/22/2013 Postsurgical menopause 09/22/2013 Urinary problem 09/22/2013 [...] Encounters Date Type Department Care Team Description 02/13/2025 1:15 PM EST Office Visit [facility] [address] [place] [phone] [place] Cifuentes ANP Hyperlipidemia associated with type 2 diabetes mellitus (HCC) (Primary Dx); Essential hypertension; 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); Mixed anxiety and depressive disorder; Class 1 obesity with serious comorbidity and body mass index (BMI) of 33.0 to 33.9 in adult, unspecified obesity type; Dietary counseling; Exercise counseling; Osteoarthritis of multiple joints, unspecified osteoarthritis type; long-term (current) use of opiate analgesic; Bilateral leg edema; Chronic midline thoracic back pain; Irritable bowel syndrome with diarrhea 02/13/2025 Travel 02/08/[address] [address] [place]ia Cifuentes ANP chartprep 02/07/2025 Orders Only [facility] [address] [place] [address] [phone] Albania Cifuentes ANP Long-term current use of opiate analgesic; Osteoarthritis of multiple joints, unspecified osteoarthritis type; Arthralgia, unspecified joint 02/03/2025 Refill [facility] [address] [place] [address] Sis Coppola, RN Long-term current use of opiate analgesic; Osteoarthritis of multiple joints, unspecified osteoarthritis type; Arthralgia, unspecified joint 02/03/2025 Telephone [facility] [address] [place] [address] Sis Coppola, AIDA 02/03/2025 Telephone [facility] [address] [place] [phone] [place]ia Cifuentes ANP Appointment Request 02/02/2025 Telephone [facility] [address] [place] [phone] [place] Cifuentes ANP Medication Question 01/31/2025 Orders Only GENERIC EXTERNAL DATA DEPARTMENT Provider, Generic External Data 01/30/2025 Refill [facility] [address] [place] [address] Sis Coppola, AIDA Long-term current use of opiate analgesic; Osteoarthritis of multiple joints, unspecified osteoarthritis type; Arthralgia, unspecified joint 01/30/2025 Telephone [facility] [address] [place] [phone] [place]ia Cifuentes ANP Med Refill 01/26/2025 Refill [facility] [address] [place] [address] Marce Gross MD 01/23/2025 Telephone [facility] [address] [place] [address] Sis Coppola, AIDA 01/23/2025 Travel 01/11/2025 Refill [facility] [address] [place] [phone] [place] Cifuentes ANP Mixed anxiety and depressive disorder 01/05/2025 Telephone [facility] [address] [place] [phone] [place] Cifuentes ANP fyi 01/02/2025 Refill [facility] [address] [place] [address] Sis Coppola, RN Long-term current use of opiate analgesic; Osteoarthritis of multiple joints, unspecified osteoarthritis type; Arthralgia, unspecified joint 01/02/2025 Telephone [facility] [address] [place] [phone] Albania Cifuentes ANP Med Refill 12/21/2024 Travel 12/19/2024 1:00 PM EDT Office Visit [facility] [address] [place] [phone] [place] Cifuentes ANP Gastroesophageal reflux disease without esophagitis (Primary Dx); Hyperlipidemia associated with type 2 diabetes mellitus (HCC); Hiatal hernia; Encounter for immunization; Essential hypertension; Dyslipidemia; Hypertension associated with diabetes (HCC); Proteinuria, unspecified type; Diabetic nephropathy associated with type 2 diabetes mellitus (HCC); 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) 12/19/2024 Travel 12/16/2024 Telephone [facility] [address] [place] [phone] Celine Woodward [place] 12/16/[address] [address] [place]ia Cifuentes ANP chartprep 12/13/2024 Orders Only [facility] External Provider, [facility] 12/05/2024 Refill [facility] [address] [place] [phone] [place] Cifuentes ANP Long-term current use of opiate analgesic; Osteoarthritis of multiple joints, unspecified osteoarthritis type; Arthralgia, unspecified joint 12/05/2024 Refill [facility] [address] [place] [address] Sis Coppola RN Long-term current use of opiate analgesic; Osteoarthritis of multiple joints, unspecified osteoarthritis type; Arthralgia, unspecified joint 12/05/[address] [address] [place]ia Cifuentes ANP Med Refill 11/30/[address] [address] [place]ia Cifuentes ANP 11/27/2024 Refill [facility] [address] [place] [phone] [place] Cifuentes ANP Insomnia disorder with non-sleep disorder mental comorbidity 11/24/2024 Orders Only GENERIC EXTERNAL DATA DEPARTMENT Provider, Generic External Data 11/22/2024 Results Follow-Up [address] [address] [place] Cifuentes ANP Glucose, Whole Blood, Hematoxylin [...] Mass Index 33.61 02/13/2025 1:23 PM EST Plan of Treatment Upcoming Encounters Date Type Department Care Team (Late st Contact Info) Description 03/02/2025 1:00 PM EST Clinical Support [facility] [address] [place] [address] Sis Coppola, AIDA [address] [place] [address] Health Maintenance Due Date Last Done Comments CT Colonography 1955 FIT DNA/Cologuard 1955 FIT 1955 FOBT 1955 Sigmoidoscopy 1955 Eye Exam 1964 RSV Patients and Patients Aged 60 years or older (1 - Risk 50-74 years 1-dose series) 2004 Hepatitis B Vaccines (3 of 3 - 19+ 3-dose series) 01/04/2008 11/09/2007, 11/09/2007, 04/14/2006, Additional history exists Zoster Vaccines (2 of 3) 11/19/2016 09/24/2016, 09/13 Lipid Panel 08/16/2023 08/15/2022, 04/2022, 10/04/2019 SDOH Screening 03/26/2024 03/26/2023 COVID-19 Vaccine ( season) 2024 05/12/2024, 07/07/2022, 03/25/2021, Additional history exists Diabetes: Hemoglobin A1C 2025 025, 08/09/2024, 05/12/2024, Additional history exists Diabetes: Foot Exam 04/26/2025 04/26/2024 Mammogram 07/07/2025 07/07/2024, 12/07/2018 Alcohol/Substance Use Screening 02/13/2026 02/13/2025 Depression Screening 02/13/2026 02/13/2025, 02/14/20 25 Tobacco Screening 02/13/2026 02/13/2025 DTaP/Tdap/Td Vaccines (2 - Td or Tdap) [...] Care Plan Weekly blood pressure task No [place] Cifuentes ANP Weekly blood pressure task Care Plan Weekly blood pressure task No [place] Cifuentes ANP Patient has chronic kidney disease Care Plan Patient has chronic kidney disease No [place] Cifuentes ANP Patient has chronic kidney disease Care Plan Patient has chronic kidney disease No [place] Cifuentes ANP Weekly blood pressure task Care Plan [...] chronic kidney disease No Zayra Thomas MA Procedures Procedure Name Priority Date/Time Associated Diagnosis [...] WHOLE BLOOD Routine 11/16/2024 11:19 AM EDT HEPATITIS PANEL, GENERAL Routine 09/06/2024 12:36 PM EDT BI MAMMOGRAM SCREENING TOMOSYNTHESIS BILATERAL Routine 07/07/2024 12:21 PM EDT HM COLONOSCOPY Routine 12/23/2022 DIRECT LDL Routine 08/15/2022 12:35 PM EDT from Last 3 Months or Most Recently Relevant to Health Maintenance Results * (ABNORMAL) Glucose, Whole Blood (01/31/2025 1:04 PM EST) Glucose, Whole Blood 154(H) 60 - 115 mg/dL [facility] Comment:METER #: [id number] Testing performed in the Endocrinology Department [address] , [address], [facility]. 01/31/2025 1:04 PM EST 01/31/2025 1:09 PM EST us Generic External Data Provider LAB BLOOD ORDERAB LES Final Result [facility] [address] [place] [phone] * (ABNORMAL) POCT Hgb A1c (12/19/2024 1:09 PM EDT) Hemoglobin A1C 7.0(A) 4.0 - 5.7 % QC Media Lot # [id number] Lot# Expiration Date [id number] Blood 12/19/2024 1:09 PM EDT [place] Cifuentes ANP POINT OF CARE TEST ENTER/EDIT OR DERABLES Final Result * POCT Glucose (12/19/2024 1:08 PM EDT) Glucose Blood, POC 171 60 - 200 mg/dL QC Media Lot # [id number] Lot# Expiration Date [id number] Blood Capillary blood specimen / Unknown 12/19/2024 1:08 PM EDT [place] Cifuentes ANP POINT OF CARE TEST ENTER/EDIT OR DERABLES Final Result * CT Abdomen Pelvis w/ Contrast (12/13/2024 1:52 PM EDT) Anatomical Region Laterality Modality Body, Pelvis, Abdomen Computed T omography 12/13/2024 1:52 PM EDT Narrative 12/13/2024 2:37 PM EDT [address] [address] [address] Scan Report Signed Patient: Lois Dalton MR#: [id number] 1 : 1955 Acct:[id number] Age/Sex: 69 / F ADM Date: 12/13/24 Loc: HO.CT Attending Dr: Lucia Whitney OPERATIONS RECRUITER Ordering Physician: Lucia Whitney NP Date of Service: 12/13/24 Procedure(s): CT abdomen pelvis w IV con Accession Number(s): [id number] cc: Whitney Correa MD; [place] CIFUENTES NP; Lucia Whitney NP Report Number: [id number]: Total DLP = 645.00 mGy-cm Reason for [...] 12/13/24 1434 DD/ 1352 TD/TT: 12/13/24 1428 Center Medical Director: Procedure Note Donotuseinterpreter, Image - 12/13/[address] [place] [address] [address] Scan Report Signed Patient: Arnav Dalton#: [id number] 1 : 5Acct:[id number] Age/Sex: 69 / FADM Date: 12/13/24 Loc: HO.CT Attending Dr: Lucia Whitney NP Ordering Physician: Lucia Whitney NP Date of Service: 12/13/24 Procedure(s): CT abdomen pelvis w IV con Accession Number(s): [id number] cc: Whitney Correa MD; [place] CIFUENTES NP; Lucia Whitney NP Report Number: [id number]: Total DLP = 645.00 mGy-cm Reason for [...] 12/13/24 1434 DD/ 1352 TD/TT: 12/13/24 1428 Center Medical Director: [facility] External Provider IMG CT PROCEDURES Final Result * Hematoxylin and Eosin Stain (11/24/2024 11:28 AM EDT) Only the most recent of2 resultswithin the time period is included. 11/24/2024 11:2 8 AM EDT 11/24/2024 12:27 PM EDT [facility] - 11/28/2024 5:19 PM EDT ----- ------- Name: Lois Dalton Age/Sex: 69/F : 1955 Unit#: [id number] Attend Dr: Ludmila Walker MD Re11/24/24 Status: [facility] Location: [facility] Disch: ----- ------- SPEC : [id number] RECD: 11/24/24-7 STATUS: SHIV STANLEY NUM: [id number] JARED: 11/24/24-[address] [facility] [address]: Ludmila Walker MD ENTERED: 11/24/24-1236 SP TYPE: Surgical OTHR DR: [place] CIFUENTES OPERATIONS RECRUITER ORDERED: HE Stain/3, Gross Micro L4, IHC, [...] developed and their performance characteristics determined by [facility]. They have not been cleared or approved by the U.S. Food and Drug Administration (FDA). However, the FDA has determined that such clearance or approval is not necessary. This laboratory is certified under the Clinical Laboratory Improvement Amendments of 1988 (CLIA) as qualified to perform high complexity clinical laboratory testing. Copies To: Ludmila Walker MD [facility] [address] [place] [id number] CONTINUED ON NEXT PAGE ----- ------- Name: Lois Dalton Age/Sex: 69/F : 1955 Unit#: [id number] Attend Dr: Ludmila Walker MD Re11/24/24 Status: [facility] Location: [facility] Disch: ----- ------- SPEC : [id number] RECD: 11/24/24-1227 STATUS: SHIV STANLEY NUM: [id number] JARED: 11/24/24-[address]: Ludmila Walker MD ENTERED: 11/24/24-1236 SP TYPE: Surgical OTHR DR: ALB[place]IA CIFUENTES NP ORDERED: HE Stain/3, Gross Micro L4, IHC, Special st. 2, H. pylori, AB/PAS Copies To: (Continued) [place] CIFUENTES NP [facility] [address] [facility] [address] [place] [address] ----- ------- Signed (signature on file) Hector Weaver MD 11/28/24 3427 ----- ------- END OF REPORT Generic External Data Provider LAB BLOOD ORDERAB LES Final Result [facility] [address] [place] [phone] * pH, body fluid (11/24/2024 11:07 AM EDT) PH OF BODY FLUID 5.4 [facility] Comment:Testing performed at : [facility] [address] [place] [address] 11/24/2024 11:0 7 AM EDT 11/24/2024 11:42 AM EDT Narrative [facility] - 11/25/2024 11:31 AM EDT GASTRIC FLUID Generic External Data Provider LAB BODY FLUIDS A ND STOOLS ORDERABLES Final Result Performing Organization Address [facility] Co de Phone Number [facility] [address] [place] [phone] * (ABNORMAL) Glucose, Whole Blood (11/24/2024 9:36 AM EDT) Only the most recent of2 resultswithin the time period is included. Glucose, Whole Blood 139(H) 60 - 115 mg/dL [facility] Comment:METER #: [id number] 11/24/2024 9:36 AM EDT 11/24/2024 9:42 AM EDT Generic External Data Provider LAB BLOOD ORDERAB LES Final Result Performing Organization Address [facility] de Phone Number [facility] [address] [place] [phone] * Hepatitis Panel, General (09/06/2024 12:36 PM EDT) Pathologist [facility] Hepatitis A IgM Nonreactive Nonreactive [facility] Comment:IgM antibodies to MARTINEZ V not detected; does not exclude earlyacute or recovered HAV infection. ~Hepatitis B Surface Antibody NONREACTIVE Nonreactive [facility] Comment:Nonreactive: < 8.00 mIU/mL Hepatitis B Core Antibody Nonreactive Nonreactive [facility] Hepatitis C Antibody Nonreactive Nonreactive [facility] Comment:Antibodies to HCV no t detected; does not exclude early acuteHCV infection. Hepatitis B Surface Ag Negative Negative [facility] 09/06/2024 12:3 6 PM EDT 09/06/2024 12:36 PM EDT Generic External Data Provider LAB BLOOD ORDERAB LES Final Result Performing Organization Address [facility] Co de Phone Number [facility] [address] [place] [phone] * BI Mammogram Screening Tomosynthesis Bilateral (07/07/2024 12:21 PM EDT) Anatomical Region Laterality Modality Breast Bilateral Mammography 07/07/2024 12:2 1 PM EDT Narrative 07/15/2024 4:34 PM EDT [facility] [address] [place] [address] Mammography Report Signed Patient: Lois Dalton MR#: [id number] 1 : 1955 Acct:[id number] Age/Sex: 69 / F ADM Date: 07/07/24 Loc: HO.MAMMO Attending Dr: Albania Cifuentes NP Ordering Physician: ALB[place]IA CIFUENTES NP Results: 1Negative Date of Service: 07/07/24 Follow Up: 1 Year From Orig ina Mammogram Procedure(s): MM tomosynthesis screening BI Accession Number(s): [id number] cc: [place] CIFUENTES NP EXAMINATION: MM SCREENING [...] 07/15/24 1631 DD/ 1221 TD/TT: 07/07/24 1246 Center Medical Director: Procedure Note Donotuseinterpreter, Image - 07/15/2024 [facility] [address] [place], [place] [address] Mammography Report Signed Patient: Arnav Dalton#: [id number] 1 : 5Acct:[id number] Age/Sex: 69 / FADM Date: 07/07/24 Loc: HO.MAMMO Attending Dr: Albania Cifuentes OPERATIONS RECRUITER Ordering Physician: [place] CIFUENTES NPResults: 1Negative Date of Service: 07/07/24Follow Up: 1 Year From Orig inal Mammogram Procedure(s): MM tomosynthesis screening BI Accession Number(s): [id number] cc: [place] CIFUENTES NP EXAMINATION: MM SCREENING [...] 07/15/24 1631 DD/ 1221 TD/TT: 07/07/24 1246 Center Medical Director: [place] Cifuentes ANP IMG BI PROCEDURES Final Result * (ABNORMAL) Hm Colonoscopy (12/23/2022) Colonoscopy Abnormal( A) Normal [facility] Comment:tubular adenoma 12/23/2022 Yuni Jeffery MD HEALTH MAINTENANCE Final Result Performing Organization Address [facility] Co de Phone Number [facility] [address] [place] [address] [phone] * Direct LDL (08/15/2022 12:35 PM EDT) LDL Direct 70 <100 mg/dL [facility] Comment:Greatly elevated Tri glycerides values (>1200 mg/dL)interfere with the dLDL assay. As no Triglyceridestesting was ordered, interpret results with caution.Desirable range <100 mg/dL for primary prevention;<70 mg/dL for patients with CHD or diabetic patientswith > or = 2 CHD risk factors.THIS TEST WAS PERFORMED AT:[facility] [place] [phone] JAIME MD 08/15/2022 12:3 5 PM EDT 08/15/2022 12:36 PM EDT [facility] External Provider LAB BLO OD ORDERABLES Final Result Performing Organization Address [facility] Co de Phone Number [facility] [address] [place] [address] [phone] from Last 3 Months or Most [...] 02/08/2025 Patient has chronic kidney disease 02/08/2025 Insurance [facility] OPTIONS (O D-SNP) [place] [id number] Care Teams Quality And Reliability Engineer Relationship Specialty Start Date End Date [place]ia Cifuentes ANP [address] [place] [address] [place] [address] PCP - General Family Medicine 10/03/19 Ludmila Walker MD [address] [place] [address] [address] [place] [address] Gastroenterology 11/22/24 [facility] 07/31/23
[2025-02-13 20:45] LABS: Microalbum/Creatinine Ratio Ur 78.5 ug/mg cr (<30)
== END 2025-02-13 19:55 | disposition home or self-care (01) ==
LOC: HO.LNP 19:54
PROVIDERS: Visit Provider Nurse Practitioner Primary Care
DX: E11.69 Type 2 diabetes mellitus with other specified complication (principal); E78.5 Hyperlipidemia, unspecified
CPT/HCPCS: 82043; 82570

== ENCOUNTER → 2025-02-20 12:25 | Outpatient (REF) | payer OTHER, SELFPAY ==
--- NOTE | 2025-02-20 12:28 | CA_ITS ---
Transthoracic Echocardiogram Patient (Last, First, Middle): Lois Dalton, Gender: F Date of : 1955 Age: 69 Procedure Date: 02/20/2025 Procedure Type: Transthoracic Echocardiogram Location: OP Height: 165.1 cm Weight: 89.36 kg BSA: 1.97 m2 Heart Rate: bpm BP: 146 / 74 mmHg Garage Laborer: MIKE Referring MD: Osvaldo Arita MD Act Tutor: Justen Padilla MD Symptoms: I27.20 - Pulmonary hypertension, unspecified Study Quality: Fair, contrast ECG Rhythm: Sinus Conclusions: - 1. Normal LV ejection fraction of 60-65% 2. Normal cardiac valvular Dopplers next 3. RV systolic pressure was not well evaluated on this study Findings Procedure Information Contrast agent, definity, is being given per protocol without apparent complications. Left Ventricle Normal left ventricular size, thickness, and systolic function. The visually estimated ejection fraction is between 60-65%. Spectral Doppler is indicative of an impaired relaxation filling pattern. E/E prime ratio is between 8 and 15 consistent with indeterminate filling pressures. Right Ventricle Normal right ventricular cavity size and systolic function. Atria Both atria are normal in size. There is no evidence of interatrial shunt. Aortic Valve The aortic valve structure and function is likely normal. There is no aortic valve stenosis. There is no aortic valve regurgitation. Mitral Valve Likely normal mitral valve structure and function. There is trace mitral valve regurgitation. There is no mitral valve stenosis. Pulmonic Valve The pulmonic valve was not well visualized. Tricuspid Valve Likely normal tricuspid valve structure and function. Tricuspid regurgitation envelope is inadequate for calculation of right ventricular systolic pressure. Normal right atrial pressure. Great Vessels The pulmonary artery was not well visualized. There is no dilatation of the ascending aorta measuring 3.30 cm. Venous The inferior vena cava is normal in size and collapses greater than 50% with inspiration. Pericardium/Pleural There is no evidence of pericardial effusion. Prior Study Comparison No significant change compared to prior study dated: 06/03/2023. Measurements 2D Linear Measurements IVSd: 1.06 0.6-0.9/0.6-1.0 cm LVIDd: 3.90 3.9-5.3/4.2-5.9 cm LVIDd Index: 1.98 2.4-3.2/2.2-3.1 cm/m2 LVIDs: 2.23 2.0-3.6 cm LVPWd: 0.90 0.7-1.1 cm LA Diam: 3.20 2.7-3.8/3.0-4.0 cm LAIDs Index: 1.62 1.5-2.3 cm/m2 LV Mass: 147.91 67-162/88-224 g LV Mass Index: 75.08 43-95/49-115 g/m2 LVOT Diam: 2.00 3.0+(-)1.3 cm 2D Systolic Function EF 4C: 65.70 >55% EF 2C: 59.40 >55% EF BiP: 65.00 >55% Mitral Valve MV Pk E: 0.59 MV PK A: 0.90 MV Decel Time: 220.00 E/A: 0.60 E'Lateral: 6.20 E'Medial: 4.90 E/E' Med: 12.00 E/E' Lat: 9.50 PHT: 64.00 MVA PHT: 3.44 Decel [place]: 2.67 Aortic Valve AoV Pk Jaquan: 1.30 AoV Mn Jaquan: 0.92 AoV VTI: 0.27 AoV Pk Grad: 7.00 Aov Mn Grad: 4.00 VIVIENNE Cont.VTI: 2.53 LVOT LVOT Pk Jaquan: 1.05 LVOT Mn Jaquan: 0.69 LVOT VTI: 0.22 LVOT Pk Grad: 4.00 LVOT Mn Grad: 2.00 LVOT Diam: 2.00 LVOT Area: 3.14 Diastolic Function MV Pk E: 0.59 MV Pk A: 0.90 E/A: 0.60 E'Medial: 4.90 E/E' Med: 12.00 E' Laterial: 6.20 E/E' Lat: 9.50 Right Ventricle TAPSE (mm): 18.90 TVS' Jaquan: 14.40 Tricuspid Valve RA Press: 3.00 Great Vessels Aorta Sinus of Valsalva: 3.19 2.0-3.5 cm Ao Asc: 3.30 2.1-3.4 cm Pulmonary Veins Pulm Vein S/D 1.70 Updated in Other Vendor System with Status of Final Justen Padilla MD electronically signed on 02/20/2025 4:35:24 PM with status of Final
--- OUTSIDE RECORDS SUMMARY | 2025-02-20 20:38 | XMS_ITS | Encounter Summary ---
Author Organization [employer] Address [address] [place] [address] Care Team Providers Care Group Marketing Vp Name Role Phone Breanna Zamudio Primary Care Provider [phone] Ludmila Walker MD Unavailable [phone] Reason for Visit * Reason Onset Date Comments Appointment Request 06/13/2024 Encounter Details Date Type Department Care Team ([facility] st Contact Info) Description 06/13/2024 Telephone [facility] MEDICINE [address] [place], [place] [phone] Breanna Zamudio ANP 230 [place], [place] [phone] Appointment Request Social History Tobacco Use Types [...] 2:32 PM EDT Tc from pt canceled [facility] appt due to being on vacation in [place] and would like to r/s after 07/08/24. documented in this encounter Plan of Treatment Upcoming Encounters Date Type Department Care Team (Late st Contact Info) Description 03/02/2025 1:00 PM EST Clinical Support [facility] CHC MED & PEDS 505 [place] [address] Sis Coppola, AIDA 505 [place] [address] 04/18/2025 2:15 PM EST Office Visit [facility] MEDICINE [address] [place] [address] Breanna Zamudio ANP 230 [place] [address] documented as of this encounter Visit Diagnoses Not on filedocumented in this encounter Care Teams Group Marketing Vp Relationship Specialty Start Date End Date Breanna Zamudio ANP 230 [place] [address] PCP - General Family Medicine 10/03/19 Ludmila Walker MD [address] [place] [address] Drive 3rd Floor [place]KEY [place] [address] Gastroenterology 11/22/24 [facility] 07/31/23 documented as of this encounter
--- OUTSIDE RECORDS SUMMARY | 2025-02-20 20:39 | XMS_ITS | Encounter Summary ---
Author Organization [employer] Address [address] 7[address] [place] [address] Care Team Providers Care Queen'S Counsel Name Role Phone Breanna Zamudio Primary Care Provider [phone] Ludmila Walker MD Unavailable [phone] Reason for Visit * Reason Onset [...] her to return my call at ext [phone]. Encounter Details Date Type Department Care Team (Late st Contact Info) Description 05/06/2024 Refill [facility] CHC MED & PEDS [address] [place], [place] [phone] Breanna Zamudio ANP [address] [place], [place] [phone] Ischemic colitis (CMS/HCC) Social History Tobacco Use [...] her to return my call at ext [phone]. * Telephone Encounter - Prisca Ramos MA [...] 1:00 PM EST Clinical Support [facility] CHC MED & PEDS 505 [place] [address] Sis Coppola, RN 505 [place] [address] 04/18/2025 2:15 PM EST Office Visit [facility] MEDICINE 230 [place] [address] Breanna Zamudio ANP [address] [place] [address] documented as of this encounter Visit Diagnoses Diagnosis Ischemic colitis (CMS/HCC) documented in this encounter Care Teams Queen'S Counsel Relationship Specialty Start Date End Date Breanna Zamudio ANP [address] [place] [address] PCP - General Family Medicine 10/03/19 Ludmila Walker MD [address] [place] [address] 3rd [place] [address] Gastroenterology 11/22/24 [facility] 07/31/23 documented as of this encounter
--- OUTSIDE RECORDS SUMMARY | 2025-02-20 20:39 | XMS_ITS | Data Portability ---
Author Organization [employer] [facility], [facility] Editorial[facility] Address [address] [place] [address] Care Team Providers Care Shoe Repairer Name Role Phone [facility] Referring Provider [phone] Assessment No assessment recorded. Plan of Treatment [...] Note [id number] Nancy Garcia MD Main - [address] [address] 01/11/2022 21:15:51 01/14/2022 13:03:57 Diverticulitis [id number] K57.92 Pt recently diagnosed with diverticul itis [...] assessment and plan as documented by the furnace repairer helper. I provided real time medical direction for [...] Cramer Member ID Guarantor Name 06/08/2023 1 [facility] - DOS PRIOR TO 2022 - DUAL ELIGIBLE (MEDICARE REPLACEMENT/ADV ANTAGE - HMO) Lois Dalton [id number] Lois Dalton 06/08/2023 1 [facility] - DOS ON OR AFTER 2022 - DUAL ELIGIBLE - LONG-TERM OPTIONS AND ONE CARE (MEDICARE REPLACEMENT/ADV ANTAGE - HMO) Lois Dalton [id number] Lois Dalton Notes Date Note Type Note Provider Name and Address Organization Details Recorded Time 01/11/2022 text/html [facility] Nursing Assessment: Chief Complaints: Abdominal Pain PMH: Hypertension, COPD/Asthma, Diabetes Allergies: No Known Comments: Family of member request [facility] visit for eval abdominal pain x 5 days eval at ED dx with diverticulitis taking antibiotics cont with pain deny fever/chills refuse ED ....................... ....................... ....................... ....................... ....................... ....................... ... Scheduling Clerk Note: Community Scheduling Clerk Shelly WESTON6 dispatched to a yellow for a 66 yof w/ abd pain. Upon arrival, the pt was sitting up in bed, WILHELM X4, holding her abdomen and grimacing in pain. She stated that she went to the ED recently for abd pain and was diagnosed with diverticulitis, w/ imaging. Her dry plasterer helper recommended that she go to the ED. [...] ... Disposition: Fulfilled Nancy Garcia MD [address] [facility],[address], [place], [address], [employer] 01/13/2022 09:59:42 OBGyn Episode No OBEpisode recorded.
--- OUTSIDE RECORDS SUMMARY | 2025-02-20 20:39 | XMS_ITS | Encounter Summary ---
Author Organization [email or web address] Address [address] [facility] [address] 7t [place] [address] Care Team Providers Care Radiation Oncologist Name Role Phone Breanna Zamudio Primary Care Provider [phone] Ludmila Walker MD Unavailable [phone] Reason for Visit * Reason Onset Date Comments Results 02/16/2025 Encounter Details Date Type Department Care Team ([facility] st Contact Info) Description 02/16/2025 Results Follow-Up [facility] MEDICINE 230 [place] [address] Breanna Zamudio ANP 230 [place], [place] [phone] Albumin, Random Urine W/Creatinine Social History Tobacco Use Types Packs/Day Years [...] the past 12 months, has t he [employer], gas, oil or water company threatened to [...] encounter Miscellaneous Notes * Telephone Encounter - Milena Gregg RN - 02/17/2025 9:24 AM EST Telephone call placed to pt utilizing S #[id number] regarding below results and POC. Informed urine testing showed small amount of protein in her urine most likely from hypertension and DM. Advised to continue jardiance and olmesartan as these medications help protect her kidneys. Reminded to completeoutstanding blood work whenever she can. Pt verbalized understanding and denied having any further questions or concerns at this time. * Telephone Encounter - Milena Gregg RN - 02/17/2025 9:18 AM EST ----- Message from Breanna Zamudio sent at 02/16/2025 4:59 PM EST ----- Please let pt know, Mild proteinuria - meaning protein in urine. no change to plan. Likely from longstanding hypertension and DM. Her jardiance and olmesartan both help to protect kidneys from further damage. ----- Message ----- From: Interface, Lab Results In Sent: 02/13/2025 8:45 PM EST To: RICARDO Caraballo * Result Encounter Note - RICARDO Caraballo - 02/16/2025 4:59 PM EST Please let pt know, Mild proteinuria - meaning protein in urine. no change to plan. Likely from longstanding hypertension and DM. Her jardiance and olmesartan both help to protect kidneys from further damage. documented in this encounter Plan of Treatment Upcoming Encounters Date Type Department Care Team (Late st Contact Info) Description 03/02/2025 1:00 PM EST Clinical Support [facility] CHC MED & PEDS 505 [place] [address] Sis Coppola RN 505 [place] [address] 04/18/2025 2:15 PM EST Office Visit [facility] MEDICINE 230 [place] [address] Breanna Zamudio ANP 230 [place] [address] documented as of this encounter Goals Goal [...] Care Plan Weekly blood pressure task No Isale Kelly Weekly blood pressure task Care Plan [...] chronic kidney disease No Breanna Zamudio ANP documented as of this encounter Visit Diagnoses [...] kidney disease 02/08/2025 Weekly blood pressure task 02/16/2025 Weekly blood pressure task 02/16/2025 Patient has chronic kidney disease 02/16/2025 Patient has chronic kidney disease 02/16/2025 Assessment Noted Time PHQ-9 Depression Total Score: 7 02/14/20 25 1:01 PM EST documented as of this encounter Care Teams Radiation Oncologist Relationship Specialty Start Date End Date Breanna Zamudio ANP [address] [place] [address] PCP - General Family Medicine 10/03/19 Ludmila Walker MD [address] [place] [address] 3rd [place] [address] Gastroenterology 11/22/24 [facility] 07/31/23 documented as of this encounter
--- OUTSIDE RECORDS SUMMARY | 2025-02-20 20:40 | XMS_ITS | Encounter Summary ---
Author Organization [employer] Address [address] 7t [place] [address] Care Team Providers Care Mine Engineering Supervisor Name Role Phone Breanna Zamudio Primary Care Provider [phone] Ludmila Walker MD Unavailable [phone] Reason for Visit * Reason Onset Date Comments Med Refill 01/30/2025 Encounter Details Date Type Department Care Team ([facility] st Contact Info) Description 01/30/2025 Telephone [facility] MEDICINE 230 [place], [place] [phone] Breanna Zamudio ANP 230 [place], [place] [phone] Med Refill Social History Tobacco Use Types [...] immediate release tablet To be sent to: [facility] - [place], [place] - [address] [place] [address] documented in this encounter Plan of Treatment Upcoming Encounters Date Type Department Care Team ([facility] st Contact Info) Description 03/02/2025 1:00 PM EST Clinical Support [facility] CHC MED & PEDS 505 [place] [address] Sis Coppola, AIDA 505 [place] [address] 04/18/2025 2:15 PM EST Office Visit [facility] MEDICINE 230 [place], [place] [phone] Breanna Zamudio ANP 230 [place] [address] documented as of this encounter Goals Goal Patient Goal Type Associated Problems Recent Progress Patient-Stated? Author Help patients manage their type 2 diabetes Care Plan Help patients manage their type 2 diabetes No Yuri Flores Weekly blood pressure task Care Plan Weekly blood pressure task No Flores Yuri Help patients manage their type 2 diabetes Care Plan Help patients manage their type 2 diabetes No Mark Yuri Patient has chronic kidney disease Care Plan Patient has chronic kidney disease No Mark Yuri Weekly blood pressure task Care Plan Weekly blood pressure task No Flores Yuri Patient has chronic kidney disease Care [...] documented as of this encounter Care Teams Mine Engineering Supervisor Relationship Specialty Start Date End Date Breanna Zamudio ANP [address] [place] [address] PCP - General Family Medicine 10/03/19 Ludmila Walker MD [address] 3rd [place] [address] Gastroenterology 11/22/24 [facility] 07/31/23 documented as of this encounter
--- OUTSIDE RECORDS SUMMARY | 2025-02-20 20:42 | XMS_ITS | Encounter Summary ---
Author Organization [employer] Address [address] 7t [place] [address] Care Team Providers Care Master Certified Rv Technician Name Role Phone Breanna Zamudio Primary Care Provider [phone] Ludmila Walker MD Unavailable [phone] Encounter Details Date Type Department Care Team (Late st Contact Info) Description 08/06/2023 Telephone [facility] MEDICINE 230 [place], [place] [phone] Breanna Zamudio ANP 230 [place], [place] [phone] Social History Tobacco Use Types Packs/Day Years [...] the past 12 months, has t he [place] [email or web address], gas, oil or water [employer] threatened to shut off services in your [...] Description 03/02/2025 1:00 PM EST Clinical Support [facility] CHC MED & PEDS 505 [place] [address] Sis Coppola, AIDA 505 [place] [address] 04/18/2025 2:15 PM EST Office Visit [facility] MEDICINE 230 [place] [address] Breanna Zamudio ANP 230 [place] [address] documented as of this encounter Visit Diagnoses Not on filedocumented in this encounter Care Teams Master Certified Rv Technician Relationship Specialty Start Date End Date Breanna Zamudio ANP [address] [place] [address] PCP - General Family Medicine 10/03/19 Ludmila Walker MD [address] [place] [address] 3rd [place] [address] Gastroenterology 11/22/24 [facility] 07/31/23 documented as of this encounter
--- OUTSIDE RECORDS SUMMARY | 2025-02-20 20:42 | XMS_ITS | Encounter Summary ---
Author Organization [employer] Address [address] [facility] [address] 7t [place] [address] Care Team Providers Care Local Company Intermodal Truck Driver Name Role Phone Breanna Zamudio Primary Care Provider [phone] Ludmila Walker MD Unavailable [phone] Reason for Visit * Reason Onset Date Comments Appointment Request 02/03/2025 Encounter Details Date Type Department Care Team ([facility] st Contact Info) Description 02/03/2025 Telephone [facility] MEDICINE 230 [place], [place] [phone] Breanna Zamudio ANP 230 [place], [place] [phone] Appointment Request Social History Tobacco Use Types [...] Acosta - 02/03/2025 8:30 AM EST TC from Jaime requesting a call back to R/S appointment from 01/23 HYDRAULIC PRESS OPERATOR Televisit; [facility] pt. PCP Dr. Zamudio documented in this encounter Plan of Treatment Upcoming Encounters Date Type Department Care Team (Late st Contact Info) Description 03/02/2025 1:00 PM EST Clinical Support [facility] CHC MED & PEDS 505 [place] [address] Sis Coppola, AIDA 505 [place] [address] 04/18/2025 2:15 PM EST Office Visit [facility] MEDICINE 230 [place] [address] Breanna Zamudio ANP 230 [place] [address] documented as of this encounter Goals Goal [...] documented as of this encounter Care Teams Local Company Intermodal Truck Driver Relationship Specialty Start Date End Date Breanna Zamudio ANP [address] [place] [address] PCP - General Family Medicine 10/03/19 Ludmila Walker MD [address] [place] [address] 3rd [place] [address] Gastroenterology 11/22/24 [facility] 07/31/23 documented as of this encounter
--- OUTSIDE RECORDS SUMMARY | 2025-02-20 20:42 | XMS_ITS | Encounter Summary ---
Author Organization [employer] Address [address] 7t [place] [address] Care Team Providers Care Biller Name Role Phone Breanna Zamudio Primary Care Provider [phone] Ludmila Walker MD Unavailable [phone] Reason for Visit * Reason Onset Date Comments FYI 08/31/2023 Encounter Details Date Type Department Care Team ([facility] st Contact Info) Description 08/31/2023 Telephone [facility] MEDICINE 230 [place], [place] [phone] Breanna Zamudio ANP 230 [place], [place] [phone] FYI Social History Tobacco Use Types Packs/Day [...] EDT Tc from Caroline (Physical Therapist) with [facility] calling to inform pt is getting discharge as of today from PT services. Any questions [phone] documented in this encounter Plan of Treatment Upcoming Encounters Date Type Department Care Team (Late st Contact Info) Description 03/02/2025 1:00 PM EST Clinical Support [facility] CHC MED & PEDS 505 [place] [address] Sis Coppola, RN 505 [place] [address] 04/18/2025 2:15 PM EST Office Visit [facility] MEDICINE 230 [place] [address] Breanna Zamudio ANP 230 [place] [address] documented as of this encounter Visit Diagnoses Not on filedocumented in this encounter Care Teams Biller Relationship Specialty Start Date End Date Breanna Zamudio ANP [address] [place] [address] PCP - General Family Medicine 7/20/20 Ludmila Walker MD [address] [place] [address] Drive 3rd [place] [address] Gastroenterology 11/22/24 [facility] 07/31/23 documented as of this encounter
--- OUTSIDE RECORDS SUMMARY | 2025-02-20 20:42 | XMS_ITS | Encounter Summary ---
Author Organization [employer] Address [address] 7t [place] [address] Care Team Providers Care Assistant Therapy Aide Name Role Phone Breanna Zamudio Primary Care Provider [phone] Ludmila Walker MD Unavailable [phone] Encounter Details Date Type Department Care Team (Late st Contact Info) Description 08/31/2023 Telephone [facility] MEDICINE 230 [place], [place] [phone] Breanna Zamudio ANP 230 [place], [place] [phone] Social History Tobacco Use Types Packs/Day Years [...] Description 03/02/2025 1:00 PM EST Clinical Support [facility] CHC MED & PEDS 505 [place] [address] Sis Coppola, AIDA 505 [place] [address] 04/18/2025 2:15 PM EST Office Visit [facility] MEDICINE [address] [place] [address] Breanna Zamudio ANP [address] [place] [address] documented as of this encounter Visit Diagnoses Not on filedocumented in this encounter Care Teams Assistant Therapy Aide Relationship Specialty Start Date End Date Breanna Zamudio ANP [address] [place] [address] PCP - General Family Medicine 10/03/19 Ludmila Walker MD [address] 3rd [place] [address] Gastroenterology 11/22/24 [facility] 07/31/23 documented as of this encounter
--- OUTSIDE RECORDS SUMMARY | 2025-02-20 20:44 | XMS_ITS | Encounter Summary ---
Author Organization [employer] Address [address] 7t [place] [address] Care Team Providers Care Levers Lace Machine Operator Name Role Phone Breanna Zamudio Primary Care Provider [phone] Ludmila Walker MD Unavailable [phone] Reason for Visit * Reason Comments Med Refill Encounter Details Date Type Department Care Team ([facility] st Contact Info) Description 08/24/2023 Refill [facility] MEDICINE 230 [place], [place] [phone] Breanna Zamudio ANP 230 [place], [place] [phone] Ischemic colitis ([facility]/HCC) Social History Tobacco Use Types [...] Description 03/02/2025 1:00 PM EST Clinical Support [facility] CH[facility] MED & PEDS [address] [place] [address] Sis Coppola, AIDA 505 [place] [address] 04/18/2025 2:15 PM EST Office Visit [facility] MEDICINE [address] [place] [address] Breanna Zamudio ANP [address] [place] [address] documented as of this encounter Visit Diagnoses Diagnosis Ischemic colitis (CMS/HCC) documented in this encounter Care Teams Levers Lace Machine Operator Relationship Specialty Start Date End Date Breanna Zamudio ANP [address] [place] [address] PCP - General Family Medicine 10/03/19 Ludmila Walker MD [address] [place] [address] Drive 3rd [place] [address] Gastroenterology 11/22/24 [facility] 07/31/23 documented as of this encounter
--- OUTSIDE RECORDS SUMMARY | 2025-02-20 20:44 | XMS_ITS | Encounter Summary ---
Author Organization [employer] Address [address] 7t [place] [address] Care Team Providers Care Line Manager Name Role Phone Breanna Zamudio Primary Care Provider [phone] Ludmila Walker MD Unavailable [phone] Reason for Visit * Reason Comments Med Refill Encounter Details Date Type Department Care Team (Late st Contact Info) Description 10/10/2024 Refill [facility] MED & PEDS [address] [place], [place] [phone] Breanna Zamudio ANP [address] [place] [address] Long-term current use of opiate analgesic; Osteoarthritis [...] Description 03/02/2025 1:00 PM EST Clinical Support [facility] PEDS 505 [place] [address] Sis Coppola, AIDA 505 [place] [address] 04/18/2025 2:15 PM EST Office Visit [facility] MEDICINE [address] [place] [address] Breanna Zamudio ANP [address] [place] [address] documented as of this encounter Visit Diagnoses Diagnosis Long-term current use of opiate analgesic Encounter for long-term (current) use of other medications Osteoarthritis of multiple joints, unspecified osteoarthritis type Arthralgia, unspecified joint documented in this encounter Care Teams Line Manager Relationship Specialty Start Date End Date Breanna Zamudio ANP [address] [place] [address] PCP - General Family Medicine 10/03/19 Ludmila Walker MD [address] 3rd [place] [address] Gastroenterology 11/22/24 [facility] 07/31/23 documented as of this encounter
--- OUTSIDE RECORDS SUMMARY | 2025-02-20 20:44 | XMS_ITS | Encounter Summary ---
Author Organization [employer] Address [address] 7t [place] [address] Care Team Providers Care Trailer Tank Truck Driver Name Role Phone Breanna Zamudio Primary Care Provider [phone] Ludmila Walker MD Unavailable [phone] Reason for Visit * Reason Onset Date Comments Medication Question 08/11/2024 Encounter Details Date Type Department Care Team ([facility] st Contact Info) Description 08/11/2024 Telephone [facility] MEDICINE 230 [place], [place] [phone] Breanna Zamudio ANP 230 [place], [place] [phone] Medication Question Social History Tobacco Use Types [...] housing situation today? I have shreyl jordan 08/09/[address] you [...] month. States [place] of [place] on Thursday and needs all her medications. Pt will be out for more than a month. Medication: OxyCODONE (Roxicodone) 10 MG immediate release tablet [phone] Patient [phone] Pt spouse documented in this encounter Plan of Treatment Upcoming Encounters Date Type Department Care Team (Late st Contact Info) Description 03/02/2025 1:00 PM EST Clinical Support [facility] MED & PEDS 505 [place] [address] Sis Coppola, AIDA 505 [place] [address] 04/18/2025 2:15 PM EST Office Visit [facility] MEDICINE 230 [place] [address] Breanna Zamudio, ANP 230 [place] [address] documented as of this encounter Visit Diagnoses Not on filedocumented in this encounter Care Teams Trailer Tank Truck Driver Relationship Specialty Start Date End Date Breanna Zamudio ANP [address] [place] [address] PCP - General Family Medicine 10/03/19 Ludmila Walker MD [address] [place] [address] 3rd [place] [address] Gastroenterology 11/22/24 [facility] 07/31/23 documented as of this encounter
--- OUTSIDE RECORDS SUMMARY | 2025-02-20 20:44 | XMS_ITS | Encounter Summary ---
Author Organization [employer] Address [address] [facility] [address] 7t [place] [address] Care Team Providers Care Batchmaker Name Role Phone Breanna Zamudio Primary Care Provider [phone] Ludmila Walker MD Unavailable Reason for Visit * Reason Comments Med Refill Encounter Details Date Type Department Care Team ([facility] st Contact Info) Description 08/24/2023 Refill [facility] MEDICINE 230 [place], [place] [phone] Breanna Zamudio ANP 230 [place], [place] [phone] Ischemic colitis ([facility]/HCC) Social History Tobacco Use Types Packs/Day [...] 1:00 PM EST Clinical Support [facility] MED & PEDS 505 [place] [address] Sis Coppola, AIDA 505 [place] [address] 04/18/2025 2:15 PM EST Office Visit [facility] MED[facility]INE [address] [place] [address] Breanna Zamudio ANP [address] [place] [phone] documented as of this encounter Visit Diagnoses Diagnosis Ischemic colitis (CMS/HCC) documented in this encounter Care Teams Batchmaker Relationship Specialty Start Date End Date Breanna Zamudio ANP [address] [place] [address] PCP - General Family Medicine 10/03/19 Ludmila Walker MD [address] [place] [address] Drive 3rd [place] [address] Gastroenterology 11/22/24 [facility] 07/31/23 documented as of this encounter
--- OUTSIDE RECORDS SUMMARY | 2025-02-20 20:44 | XMS_ITS | Encounter Summary ---
Author Organization [employer] Address [address] 7t [place] [address] Care Team Providers Care Circular Knitter Name Role Phone Breanna Zamudio Primary Care Provider [phone] Ludmila Walker MD Unavailable [phone] Reason for Visit * Reason Onset Date Comments Med Refill 11/18/2023 Encounter Details Date Type Department Care Team (Late st Contact Info) Description 11/18/2023 Telephone [facility] MEDICINE 230 [place], [place] [phone] Breanna Zamudio ANP 230 [place], [place] [phone] Med Refill Social History Tobacco Use Types [...] immediate release tablet To be sent to: [facility] - [place], [place] - [address] [place] [address] documented in this encounter Plan of Treatment Upcoming Encounters Date Type Department Care Team ([facility] st Contact Info) Description 03/02/2025 1:00 PM EST Clinical Support [facility] CHC MED & PEDS 505 [place] [address] Sis Coppola, AIDA 505 [place] [address] 04/18/2025 2:15 PM EST Office Visit [facility] MEDICINE 230 [place] [address] Breanna Zamudio ANP 230 [place] [address] documented as of this encounter Visit Diagnoses Not on filedocumented in this encounter Care Teams Circular Knitter Relationship Specialty Start Date End Date Breanna Zamudio ANP 230 [place] [address] PCP - General Family Medicine 10/03/19 Ludmila Walker MD [address] [place] [address] 3rd [place] [address] Gastroenterology 11/22/24 [facility] 07/31/23 documented as of this encounter
--- OUTSIDE RECORDS SUMMARY | 2025-02-20 20:45 | XMS_ITS | Encounter Summary ---
Author Organization [employer] Address [address] [facility] 7t [place] [address] Care Team Providers Care Customs Appraiser Name Role Phone Breanna Zamudio Primary Care Provider Ludmila Walker MD Unavailable [phone] Reason for Visit * Reason Comments Med Refill Encounter Details Date Type Department Care Team ([facility] st Contact Info) Description 12/05/2024 Refill [facility] MEDICINE 230 [place], [place] [phone] Breanna Zamudio ANP 230 [place] [address] Long-term current use of opiate analgesic; Osteoarthritis [...] Description 03/02/2025 1:00 PM EST Clinical Support [facility] CH[facility] MED & PEDS 505 [place] [address] Sis Coppola, RN 505 [place] [address] 04/18/2025 2:15 PM EST Office Visit [facility] MEDICINE [address] [place] [address] Breanna Zamudio ANP [address] [place] [address] documented as of this encounter Visit Diagnoses Diagnosis Long-term current use of opiate analgesic Encounter for long-term (current) use of other medications Osteoarthritis of multiple joints, unspecified osteoarthritis type Arthralgia, unspecified joint documented in this encounter Care Teams Customs Appraiser Relationship Specialty Start Date End Date Breanna Zamudio ANP [address] [place] [address] PCP - General Family Medicine 10/03/19 Ludmila Walker MD [address] [place] [address] Drive 3rd [place] [address] Gastroenterology 11/22/24 [facility] [place] 07/31/23 documented as of this encounter
--- OUTSIDE RECORDS SUMMARY | 2025-02-20 20:45 | XMS_ITS | Encounter Summary ---
Author Organization [employer] Address [address] [facility] [facility] [address] 7t [place] [address] Care Team Providers Care Organ Pipe Finisher Name Role Phone Breanna Zamudio Primary Care Provider [phone] Ludmila Walker MD Unavailable [phone] Reason for Visit * Reason Onset Date Comments Med Refill 12/05/2024 Encounter Details Date Type Department Care Team (Late st Contact Info) Description 12/05/[address] [facility] MEDICINE 230 [place], [place] [phone] Breanna Zamudio ANP 230 [place], [place] [phone] Med Refill Social History Tobacco Use Types [...] the past 12 months, has t he [employer] gas, oil or water company threatened to [...] Assessment Author Somewhat difficult 02/13/2025 1:01 PM EST Colt Kulkarni [place] documented as of this encounter Miscellaneous Notes * Telephone Encounter - Stanford Lau - 12/05/2024 9:49 AM EDT TC from pt requesting medication refill. Medications needing refill : oxyCODONE (Roxicodone) 10 MG immediate release tablet To be sent to: [facility] documented in this encounter Plan of Treatment Upcoming Encounters Date Type Department Care Team (Late st Contact Info) Description 03/02/2025 1:00 PM EST Clinical Support [facility] CHC MED & PEDS 505 [place] [address] Sis Coppola RN 505 [place] [address] 04/18/2025 2:15 PM EST Office Visit [facility] MEDICINE 230 [place] [address] Breanna Zamudio ANP 230 [place] [address] documented as of this encounter Visit Diagnoses Not on filedocumented in this encounter Care Teams Organ Pipe Finisher Relationship Specialty Start Date End Date Breanna Zamudio ANP [address] [place] [address] PCP - General Family Medicine 10/03/19 Ludmila Walker MD [address] [place] [address] 3rd [place] [address] Gastroenterology 11/22/24 [facility] 07/31/23 documented as of this encounter
--- OUTSIDE RECORDS SUMMARY | 2025-02-20 20:45 | XMS_ITS | Encounter Summary ---
Author Organization [employer] Address [address] 7t [place] [address] Care Team Providers Care Airline Transport Pilot Name Role Phone Breanna Zamudio Primary Care Provider [phone] Ludmila Walker MD Unavailable [phone] Reason for Visit * Reason Onset Date Comments Med Refill 10/27/2023 Encounter Details Date Type Department Care Team (Late st Contact Info) Description 10/27/2023 Telephone [facility] MEDICINE 230 [place], [place] [phone] Breanna Zamudio ANP 230 [place], [place] [phone] Med Refill Social History Tobacco Use Types [...] encounter Miscellaneous Notes * Telephone Encounter - Saarh Shaw - 10/27/2023 3:27 PM EDT TC from pt requesting medication refill. Medications needing refill : oxyCODONE (Roxicodone) 10 MG immediate release tablet To be sent to: [facility] Pharmacy documented in this encounter Plan of Treatment Upcoming Encounters Date Type Department Care Team (Late st Contact Info) Description 03/02/2025 1:00 PM EST Clinical Support [facility] CHC MED & PEDS 505 [place] [address] Sis Coppola RN 505 [place] [address] 04/18/2025 2:15 PM EST Office Visit [facility] MEDICINE 230 [place] [address] Breanna Zamudio ANP 230 [place] [address] documented as of this encounter Visit Diagnoses Not on filedocumented in this encounter Care Teams Airline Transport Pilot Relationship Specialty Start Date End Date Breanna Zamudio ANP [address] [place] [address] PCP - General Family Medicine 10/03/19 Ludmila Walker MD [address] [place] [address] Drive 3rd Floor [place] [phone] Gastroenterology 11/22/24 [facility] 07/31/23 documented as of this encounter
--- OUTSIDE RECORDS SUMMARY | 2025-02-20 20:46 | XMS_ITS | Encounter Summary ---
Author Organization [employer] Address [address] [facility] [address] 7t [place] [address] Care Team Providers Care Wardrobe Specialty Worker Name Role Phone Breanna Zamudio Primary Care Provider [phone] Ludmila Walker MD Unavailable Reason for Visit * Reason Onset Date Comments Med Refill 01/21/2024 Encounter Details Date Type Department Care Team (Late st Contact Info) Description 01/21/[address] [facility] MEDICINE 230 [place], [place] [phone] Breanna Zamudio ANP 230 [place], [place] [phone] Med Refill Social History Tobacco Use Types [...] immediate release tablet To be sent to: [facility] [place], [place] - [address] [place] [address] documented in this encounter Plan of Treatment Upcoming Encounters Date Type Department Care Team ([facility] st Contact Info) Description 03/02/2025 1:00 PM EST Clinical Support [facility] CH[facility] MED & PEDS 505 [place] [address] Sis Coppola, AIDA 505 [place] [address] 04/18/2025 2:15 PM EST Office Visit [facility] MEDICINE 230 [place] [address] Breanna Zamudio ANP 230 [place] [address] documented as of this encounter Visit Diagnoses Not on filedocumented in this encounter Care Teams Wardrobe Specialty Worker Relationship Specialty Start Date End Date Breanna Zamudio ANP 230 [place] [address] PCP - General Family Medicine 10/03/19 Ludmila Walker MD [address] [place] [address] 3rd [place] [address] Gastroenterology 11/22/24 [facility] 07/31/23 documented as of this encounter
--- OUTSIDE RECORDS SUMMARY | 2025-02-20 20:46 | XMS_ITS | Encounter Summary ---
Author Organization [employer] Address [address] [facility] 7t [place] [address] Care Team Providers Care Paper Supervisor Name Role Phone Breanna Zamudio Primary Care Provider [phone] Ludmila Walker MD Unavailable [phone] Encounter Details Date Type Department Care Team (Late st Contact Info) Description 03/19/2022 Orders Only [facility] MED & PEDS 505 [place], [place] [phone] Breanna Zamudio ANP 230 [place] [address] Moderate persistent asthma without complication (Primary Dx) [...] Clinical Support [facility] MED & PEDS 505 [place], [place] [phone] Sis Coppola, AIDA 505 [place], [place] 04/18/2025 2:15 PM EST Office Visit [facility] MEDICINE 230 [place] [address] Breanna Zamudio ANP 230 [place] [address] documented as of this encounter Visit Diagnoses Diagnosis Moderate persistent asthma without complication- Primary documented in this encounter Care Teams Paper Supervisor Relationship Specialty Start Date End Date Breanna Zamudio ANP [address] [place] [address] [place] [address] PCP - General Family Medicine 10/03/19 Ludmila Walker MD [address] [place] [address] 3rd [place] [address] Gastroenterology 11/22/24 [facility] 07/31/23 documented as of this encounter
--- OUTSIDE RECORDS SUMMARY | 2025-02-20 20:46 | XMS_ITS | Encounter Summary ---
Author Organization [employer] Address [address] 7t [place] [address] Care Team Providers Care Staff Analyst Name Role Phone Breanna Zamudio Primary Care Provider [phone] Ludimla Walker MD Unavailable [phone] Reason for Visit * Reason Comments Med Refill Encounter Details Date Type Department Care Team ([facility] Contact Info) Description 04/07/2022 Refill [facility] MED & PEDS 505 [place] [address] Breanna Zamudio ANP 230 [place] [address] Pain in unspecified joint Social History Tobacco [...] Upcoming Encounters Date Type Department Care Team ([facility] Contact Info) Description 03/02/2025 1:00 PM EST Clinical Support [facility] MED & PEDS 505 [place] [address] Sis Coppola, RN 505 [place] [address] 04/18/2025 2:15 PM EST Office Visit [facility] MEDICINE [address] [place] [address] Breanna Zamudio ANP [address] [place] [address] documented as of this encounter Visit Diagnoses Diagnosis Pain in unspecified joint documented in this encounter Care Teams Staff Analyst Relationship Specialty Start Date End Date Breanna Zamudio ANP [address] [place] [address] PCP - General Family Medicine 10/03/19 Ludmila Walker MD [address] [place] [address] 3rd [place] [address] Gastroenterology 11/22/24 [facility] 07/31/23 documented as of this encounter
--- OUTSIDE RECORDS SUMMARY | 2025-02-20 20:48 | XMS_ITS | Clinical Summary ---
Author Organization [employer] Address [address] [facility] 7[address] [place] [address] Care Team Providers Care Export Administrator Name Role Phone Robb [place] SILVA Primary Care Provider [phone] Ludmila Walker MD Unavailable Allergies No known [...] 34 UNITS SUBCUTANEOUSLY EVERY EVENING Active Lancets (LivesetTouch Delica Plus Nottlc73C) misc TEST BLOOD SUGAR TWICE DAILY Active [...] ONCE A WEEK 024 Active Continuous Glucose Heating And Ventilating Drafter (FreeStyle Manuelito 2 [place]) device Use as directed 024 Active Continuous [...] and at bedtime. 120 tablet 2 02/01/20 12:25 PM EST Active venlafaxine XR (Effexor [...] CRUSH, DISSOLVE OR CHEW 90 capsule 1 02/16/20 25 5:06 PM EST Active furosemide (Lasix) 20 MG tabletIndication s:Essential hypertension,Giacomo ateral leg edema Take 1 tablet (20 mg) by mouth Once per day. 90 tablet 1 02/16/20 25 5:06 PM EST 025 2025 Active lidocaine (Lidoderm) 5 % patchIndications :Osteoarthritis of multiple joints, unspecified osteoarthritis type,Chronic midline thoracic back pain Apply 1 patch topically Once per day. Remove & discard patch within 12 hours or as directed by . 30 patch 2 Active psyllium (Metamucil Smooth [...] start before January 06, 2025. 120 tablet 2024 Discontinued(R eorder (will not trigger notification to Pharmacy)) naloxone (Narcan) 4 mg/0.1 mL nasal spray Administer 1 spray (4 mg) into affected nostril(s) if needed for opioid reversal. May repeat every 2-3 minutes if needed, alternating nostrils, until medical assistance becomes available. 2 each 1 2024 Discontinued venlafaxine XR (Effexor XR) 150 MG 24 hr capsuleIndicatio ns:Mixed anxiety and depressive disorder TAKE 1 CAPSULE BY MOUTH DAILY WITH 75 MG CAPSULE. DO NOT BREAK, CRUSH, DISSOLVE OR CHEW 90 capsule 1 2024 Discontinued(R eorder (will not trigger notification to Pharmacy)) oxyCODONE (Roxicodone) 10 MG immediate release tabletIndication s:Long-term current use of opiate analgesic,Osteoa rthritis of multiple joints, unspecified osteoarthritis type,Arthralgia, unspecified joint Take 1 tablet (10 mg) by mouth every 6 (six) hours if needed for severe pain for up to 7 days. 28 tablet 02/04/20 25 12:10 PM EST 2024 Discontinued(R eorder (will not trigger notification to Pharmacy)) oxyCODONE (Roxicodone) 10 MG immediate release tabletIndication s:Long-term current use of opiate analgesic,Osteoa rthritis of multiple joints, unspecified osteoarthritis type,Arthralgia, unspecified joint Take 1 tablet (10 mg) by mouth every 6 (six) hours if needed for severe pain for up to 21 days. Do not start before February 08, 2025. 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 Walker, [facility] Tumor site: Gastric body Tumor size: [...] edema. 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); Mixed anxiety and depressive disorder; Class 1 obesity with serious comorbidity and body mass index (BMI) of 33.0 to 33.9 in adult, unspecified obesity type; Dietary counseling; Exercise counseling; Osteoarthritis of multiple joints, unspecified osteoarthritis type; 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; Bilateral leg edema; Chronic midline thoracic back pain; Irritable bowel syndrome with diarrhea 02/13/2025 Travel 02/08/[address] [phone] Albania Cifuentes ANP chartprep 02/07/2025 Orders Only [address] [phone] [place]ia Cifuentes ANP Long-term current use of opiate analgesic; Osteoarthritis of multiple joints, unspecified osteoarthritis type; Arthralgia, unspecified joint 02/03/2025 Refill [facility] [address] [place], [place] [phone] Sis Coppola, AIDA Long-term current use of opiate analgesic; Osteoarthritis of multiple joints, unspecified osteoarthritis type; Arthralgia, unspecified joint 02/03/2025 Telephone [facility] [address] [place] [address] Sis Coppola RN 02/03/2025 Telephone [facility] [address] [place] [address] [place]ia Cifuentes ANP Appointment Request 02/02/[address] [address] Albania Cifuentes ANP Medication Question 01/31/2025 Orders Only GENERIC EXTERNAL DATA DEPARTMENT Provider, Generic External Data 01/30/2025 Refill [facility] [address] [place] [address] Sis Coppola, AIDA Long-term current use of opiate analgesic; Osteoarthritis of multiple joints, unspecified osteoarthritis type; Arthralgia, unspecified joint 01/30/2025 Telephone [facility] [address] [place] [address] Albania Cifuentes ANP Med Refill 01/26/2025 Refill [facility] [address] [place] [address] Marce Gross MD 01/23/2025 Telephone [facility] [address] [place] [address] Sis Coppola, AIDA 01/23/2025 Travel 01/11/2025 Refill [facility] [address] [place] [address] [place]ia Cifuentes ANP Mixed anxiety and depressive disorder 01/05/2025 Telephone [facility] [address] [place] [address] Albania Cifuentes ANP fyi 01/02/2025 Refill [facility] [address] [place] [address] Sis Coppola, AIDA Long-term current use of opiate analgesic; Osteoarthritis of multiple joints, unspecified osteoarthritis type; Arthralgia, unspecified joint 01/02/2025 Telephone [facility] [address] [place] [address] Albania Cifuentes ANP Med Refill 12/21/2024 Travel 12/19/2024 1:00 PM EDT Office Visit [facility] [address] [place] [address] Albania Cifuentes ANP Gastroesophageal reflux disease without esophagitis (Primary Dx); Hyperlipidemia associated with type 2 diabetes mellitus (HCC); Hiatal hernia; Encounter for immunization; Essential hypertension; Dyslipidemia; Hypertension associated with diabetes (HCC); Proteinuria, unspecified type; Diabetic nephropathy associated with type 2 diabetes mellitus (HCC); 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) 12/19/2024 Travel 12/16/2024 Telephone [facility] [address] [place] [phone] Celine Woodward [place] 12/16/[address] [address] Albania Cifuentes ANP chartprep 12/13/2024 Orders Only [facility] External Provider, [facility] 12/05/2024 Refill [facility] [address] [place] [address] Albania Cifuentes ANP Long-term current use of opiate analgesic; Osteoarthritis of multiple joints, unspecified osteoarthritis type; Arthralgia, unspecified joint 12/05/2024 Refill [facility] [address] [place] [address] Sis Coppola RN Long-term current use of opiate analgesic; Osteoarthritis of multiple joints, unspecified osteoarthritis type; Arthralgia, unspecified joint 12/05/2024 Telephone [facility] [address] [place] [phone] Albania Cifuentes ANP Med Refill 11/30/[address] [address] Albania Cifuentes ANP 11/27/2024 Refill [facility] [address] [place] [address] Albania Cifuentes ANP Insomnia disorder with non-sleep disorder mental comorbidity 11/24/2024 Orders Only GENERIC EXTERNAL DATA DEPARTMENT Provider, Generic External Data 11/22/2024 Results Follow-Up [facility] [address] [place] [address] [place]ia Cifuentes ANP Glucose, Whole Blood, Hematoxylin and Eosin Stain from Last 3 Months Immunizations Immunization Administration [...] Description 03/02/2025 1:00 PM EST Clinical Support [facility] [address] [place] [address] Sis Coppola, RN [address] [place] [address] 04/18/2025 2:15 PM EST Office Visit [facility] [address] [place] [address] Albania Cifuentes, RICARDO [address], [place] [phone] Health Maintenance Due Date Last Done Comments [...] chronic kidney disease No [place] Cifuentes ANP Procedures Procedure Name Priority Date/Time Associated Diagnosis Comments ALBUMIN, RANDOM URINE W/CREATININE Routine 02/13/2025 12:00 AM EST Hyperlipidemia associated with type 2 diabetes mellitus (HCC) GLUCOSE, WHOLE BLOOD Routine 01/31/2025 1:04 PM [...] WHOLE BLOOD Routine 11/24/2024 9:36 AM EDT HEPATITIS PANEL, GENERAL Routine 09/06/2024 12:36 PM EDT BI MAMMOGRAM SCREENING TOMOSYNTHESIS BILATERAL Routine 07/07/2024 12:21 PM EDT HM COLONOSCOPY Routine 12/23/2022 DIRECT LDL Routine 08/15/2022 12:35 PM EDT from Last 3 Months or Most Recently Relevant to Health Maintenance Results * (ABNORMAL) Albumin, Random Urine W/Creatinine (02/13/2025 12:00 AM EST) Creatinine, Urine 77.63 mg/dL [facility] Microalbumin Urine 61.0 mg/L H [facility] Microalbum Creatinine Ratio Ur 78.5(H) <30 ug/mg cr [facility] Comment:Albumin/Creatinine R atio Reference Ranges: Normal: < 30 ug/mg creatinine Microalbuminuria: 30 - 300 ug/mg creatinineClinical Albuminuria: > 300 ug/mg creatinine Urine (Urine, Random) 02/13/2025 02/13/2025 [facility] LAB URINE ORDERABLES Final Resul t Performing Organization Address [facility] Co de Phone Number [facility] [address] [place] [phone] * (ABNORMAL) Glucose, Whole Blood (01/31/2025 1:04 PM EST) [facility] Glucose, Whole Blood 154(H) 60 - 115 mg/dL [facility] Comment:METER #: [id number] Testing performed in the Endocrinology Department [address] , [address], [facility]. 01/31/2025 1:04 PM EST 01/31/2025 1:[address] [facility] External Data Provider LAB BLOOD ORDERAB LES Final Result Performing Organization Address [facility] Co de Phone Number [facility] [address] [place] [phone] * (ABNORMAL) POCT Hgb A1c (12/19/2024 1:09 PM EDT) Pathologist [facility] Hemoglobin A1C 7.0(A) 4.0 - 5.7 % QC Media Lot # [id number] Lot# Expiration Date , Blood 12/19/2024 1:09 PM EDT us [place] SILVA POINT OF CARE TEST ENTER/EDIT OR DERABLES Final Result * POCT Glucose (12/19/2024 1:08 PM EDT) Glucose Blood, POC 171 60 - 200 mg/dL QC Media Lot # [id number] Lot# Expiration Date [id number] Blood Capillary blood specimen / Unknown 12/19/2024 1:08 PM EDT us [place] Cifuentes ANP POINT OF CARE TEST ENTER/EDIT OR DERABLES Final Result * CT Abdomen Pelvis w/ Contrast (12/13/2024 1:52 PM EDT) Anatomical Region Laterality Modality Body, Pelvis, Abdomen Computed T omography 12/13/2024 1:52 PM EDT Narrative 12/13/2024 2:37 PM EDT [place] [address] CT Scan Report Signed Patient: Lois Dalton MR#: [id number] 1 : 1955 Acct:[id number] Age/Sex: 69 / F ADM Date: 12/13/24 Loc: HO.CT Attending Dr: Lucia Whitney NP Ordering Physician: Lucia Whitney NP Date of Service: 12/13/24 Procedure(s): CT abdomen pelvis w IV con Accession Number(s): [id number] cc: Whitney Correa MD; [place] CIFUENTES NP; Lucia Whitney NP Report Number: [id number]: Total DLP = 645.00 mGy-cm Reason for [...] 12/13/24 1434 DD/ 1352 TD/TT: 12/13/24 1428 Guest Service Team Leader: Procedure Note Donotuseinterpreter, Image - 12/13/[address] [address] [address] Scan Report Signed Patient: Arnav Dalton#: [id number] 1 : 5Acct:[id number] Age/Sex: 69 / FADM Date: 12/13/24 Loc: HO.CT Attending Dr: Lucia Whitney NP Ordering Physician: Lucia Whitney NP Date of Service: 12/13/24 Procedure(s): CT abdomen pelvis w IV con Accession Number(s): [id number] cc: Whitney Correa MD; [place] CIFUENTES NP; Lucia Whitney NP Report Number: [id number]: Total DLP = 645.00 mGy-cm Reason for [...] 12/13/24 1434 DD/ 1352 TD/TT: 12/13/24 1428 Guest Service Team Leader: [facility] External Provider IMG CT PROCEDURES Final Result * Hematoxylin and Eosin Stain (11/24/2024 11:28 AM EDT) 11/24/2024 11:2 8 AM EDT 11/24/2024 12:27 PM EDT [facility] - 11/28/2024 5:19 PM EDT ----- ------- Name: Lois Dalton Age/Sex: 69/F : 1955 [id number]#: [id number] Attend Dr: Ludmila Walker MD Re11/24/24 Status: [facility] Location: [facility] Disch: ----- ------- SPEC : [id number] RECD: 11/24/24-1226 STATUS: AUDELIACatherine ROMEROIona NUM: [id number] JARED: 11/24/24-[address] [facility] [address]: Ludmila Walker MD ENTERED: 11/24/24-1236 SP TYPE: Surgical OTHR DR: [place] CIFUENTES MULTI SITE LEASING CONSULTANT ORDERED: HE Stain/3, Gross Micro L4, IHC, [...] developed and their performance characteristics determined by [facility]. They have not been cleared or approved by the U.S. Food and Drug Administration (FDA). However, the FDA has determined that such clearance or approval is not necessary. This laboratory is certified under the Clinical Laboratory Improvement Amendments of 1988 (CLIA) as qualified to perform high complexity clinical laboratory testing. Copies To: Ludmila Walker MD [facility] [address] [place] [id number] CONTINUED ON NEXT PAGE ----- ------- Name: Lois Dalton Age/Sex: 69/F : 1955 Unit#: [id number] Attend Dr: Ludmila Walker MD Re11/24/24 Status: [facility] Location: [facility] Disch: ----- ------- SPEC : [id number] RECD: 11/24/24-1227 STATUS: SHIV STANLEY NUM: [id number] JARED: 11/24/24-[address] [facility] [address]: Ludmila Walker MD ENTERED: 11/24/24-123 SP TYPE: Surgical OTHR DR: ALB[place] CIFUENTES NP ORDERED: HE Stain/3, Gross Micro L4, IHC, Special st. 2, H. pylori, AB/PAS Copies To: (Continued) [place] CIFUENTES NP [address] [address] ----- ------- Signed (signature on file) Hector Weaver MD 11/28/24 1719 ----- ------- END OF REPORT Generic External Data Provider LAB BLOOD ORDERAB LES Final Result Performing Organization Address [facility] Co de Phone Number [facility] [address] [place] [phone] * pH, body fluid (11/24/2024 11:07 AM EDT) PH OF BODY FLUID 5.4 [facility] Comment:Testing performed at : [facility] [address] [place] [address] 11/24/2024 11:0 7 AM EDT 11/24/2024 11:42 AM EDT Narrative [facility] - 11/25/2024 11:31 AM EDT GASTRIC FLUID Generic External Data Provider LAB BODY FLUIDS A ND STOOLS ORDERABLES Final Result Performing Organization Address [facility] Co de Phone Number [facility] [address] [place] [phone] * (ABNORMAL) Glucose, Whole Blood (11/24/2024 9:36 AM EDT) Glucose, Whole Blood 139(H) 60 - 115 mg/dL [facility] Comment:METER #: [id number] 11/24/2024 9:36 AM EDT 11/24/2024 9:42 AM EDT Generic External Data Provider LAB BLOOD ORDERAB LES Final Result Performing Organization Address [facility] Co de Phone Number [facility] [address] [place] [address] [phone] * Hepatitis Panel, General (09/06/2024 12:36 PM EDT) Hepatitis A IgM Nonreactive Nonreactive [facility] Comment:IgM antibodies to MARTINEZ V not detected; does not exclude earlyacute or recovered HAV infection. ~Hepatitis B Surface Antibody NONREACTIVE Nonreactive [facility] Comment:Nonreactive: < 8.00 mIU/mL Hepatitis B Core Antibody Nonreactive Nonreactive [facility] Hepatitis C Antibody Nonreactive Nonreactive [facility] Comment:Antibodies to HCV no t detected; does not exclude early acuteHCV infection. Hepatitis B Surface Ag Negative Negative [facility] 09/06/2024 12:3 6 PM EDT 09/06/2024 12:36 PM EDT Generic External Data Provider LAB BLOOD ORDERAB LES Final Result Performing Organization Address [facility] Co de Phone Number [facility] [address] [place] [phone] [phone] * BI Mammogram Screening Tomosynthesis Bilateral (07/07/2024 12:21 PM EDT) Anatomical Region Laterality Modality Breast Bilateral Mammography 07/07/2024 12:2 1 PM EDT Narrative 07/15/2024 4:34 PM EDT [facility] [address] [place] [address] Mammography Report Signed Patient: Lois Dalton MR#: [id number] 1 : 1955 Acct:[id number] Age/Sex: 69 / F ADM Date: 07/07/24 Loc: MAMMO Attending Dr: [place] Cifuentes NP Ordering Physician: [place] CIFUENTES NP Results: 1Negative Date of Service: 07/07/24 Follow Up: 1 Year From Orig inal Mammogram Procedure(s): MM tomosynthesis screening BI Accession Number(s): [id number] cc: [place] CIFUENTES NP EXAMINATION: MM SCREENING [...] 07/15/24 1631 DD/ 1221 TD/TT: 07/07/24 1246 Guest Service Team Leader: Procedure Note Donotuseinterpreter, Image - 07/15/2024 Svitlana [facility] [address] [place] [address] Mammography Report Signed Patient: Arnav Dalton#: [id number] 1 : 5Acct:[id number] Age/Sex: 69 / FADM Date: 07/07/24 Loc: ARI Attending Dr: [place] Cifuentes NP Ordering Physician: [place] CIFUENTES NPResults: 1Negative Date of Service: 04/24/25Follow Up: 1 Year From Orig inal Mammogram Procedure(s): MM tomosynthesis screening BI Accession Number(s): [id number] cc: [place] CIFUENTES NP EXAMINATION: MM SCREENING [...] DO Signed By: <Electronically signed by Stefanie Gulilory DO in OV> 07/15/24 1631 DD/ 1221 TD/TT: 07/07/24 1246 Guest Service Team Leader: us [place] Cifuentes ANP IMG BI PROCEDURES Final Result * (ABNORMAL) Hm Colonoscopy (12/23/2022) Colonoscopy Abnormal( A) Normal [facility] Comment:tubular adenoma 12/23/2022 us Yuni Jeffery MD HEALTH MAINTENANCE Final Result [facility] [address] [place] [phone] [phone] * Direct LDL (08/15/2022 12:35 PM EDT) LDL Direct 70 <100 mg/dL [facility] Comment:Greatly elevated Tri glycerides values (>1200 mg/dL)interfere with the dLDL assay. As no Triglyceridestesting was ordered, interpret results with caution.Desirable range <100 mg/dL for primary prevention;<70 mg/dL for patients with CHD or diabetic patientswith > or = 2 CHD risk factors.THIS TEST WAS PERFORMED AT:[facility] [place] [id number] JAIME MD 08/15/2022 12:3 5 PM EDT 08/15/2022 12:36 PM EDT [facility] External Provider LAB BLO OD ORDERABLES Final Result [facility] [address] [place] [phone] [phone] from Last 3 Months or Most [...] 02/16/2025 Patient has chronic kidney disease 02/16/2025 Insurance [facility] OPTIONS (O D-SNP) [place] [id number] Care Teams Export Administrator Relationship Specialty Start Date End Date [place] Cifuentes ANP [address] [place] [address] PCP - General Family Medicine 10/03/19 Ludmila Walker MD [address] [place] [address] Gastroenterology 11/22/24 [facility] 07/31/23
--- OUTSIDE RECORDS SUMMARY | 2025-02-20 20:48 | XMS_ITS | Encounter Summary ---
Author Organization [employer] Address [address] [place] [address] Care Team Providers Care Suspender Cutter Name Role Phone Breanna Zamudio Primary Care Provider [phone] Ludmila Walker MD Unavailable Reason for Visit * Reason Onset Date Comments Appointment Request 07/08/2024 Encounter Details Date Type Department Care Team ([facility] st Contact Info) Description 07/08/2024 Telephone [facility] [address] [place], [place] [phone] Breanna Zamudio ANP [address] [place], [place] [phone] Appointment Request Social History Tobacco Use Types [...] appt from 06/14/24. Pt is leaving to [place] on 07/09/24 at around 2 pm but pt was only given half of the pack for the Oxy and Spouse would like to see if anything can be done so that pt gets her full medication. Contact pt Spouse at [phone] documented in this encounter Plan of Treatment Upcoming Encounters Date Type Department Care Team (Late st Contact Info) Description 03/02/2025 1:00 PM EST Clinical Support [facility] [address] [place] [address] Sis Coppola, AIDA [address] [place] [address] 04/18/2025 2:15 PM EST Office Visit [facility] [address] [place] [address] Breanna Zamudio ANP [address] [place] [address] documented as of this encounter Visit Diagnoses Not on filedocumented in this encounter Care Teams Suspender Cutter Relationship Specialty Start Date End Date Breanna Zamudio ANP [address] [place] [phone] PCP - General Family Medicine 10/03/19 Ludmila Walker MD [address] [place] [address] [address] [place] [address] Gastroenterology 11/22/24 [facility] 07/31/23 documented as of this encounter
--- OUTSIDE RECORDS SUMMARY | 2025-02-20 20:48 | XMS_ITS | Encounter Summary ---
Author Organization [employer] Address [address] [facility] 7t [place] [address] Care Team Providers Care Nail Making Machine Tender Name Role Phone Breanna Zamudio Primary Care Provider [phone] Ludmila Walker MD Unavailable [phone] Reason for Visit * Reason Onset Date Comments Durable Medical Equipment 09/08/2022 Encounter Details Date Type Department Care Team (Late st Contact Info) Description 09/08/2022 Telephone [facility]IC[facility] [address] [place] [address] Breanna Zamudio ANP [address] [place] [address] Durable Medical Equipment Social History Tobacco Use [...] machines, please see notes,. Please contact at [phone] Honduran * Telephone Encounter - RICARDO Caraballo - 09/19/2022 6:26 PM EDT Yes, of course. Thank you. Will place signed RX on your desk. * Telephone Encounter - Madhuri Doe - 09/18/2022 1:56 PM EDT Tc from [facility] with [facility] requesting status on nebulizer. States if script has not been sent to [facility], fax to [facility]. FAX: [phone] Please contact [facility] at [phone] ext [phone] * Telephone Encounter - Rosalinda Rucker - 09/08/2022 3:29 PM EDT Tc from patient requesting a new script for a nebulizer machine. States current one broke. documented in this encounter Plan of Treatment Upcoming Encounters Date Type Department Care Team (Late st Contact Info) Description 03/02/2025 1:00 PM EST Clinical Support [facility] [address] [place] [address] Sis Coppola, RN [address] [place] [address] 04/18/2025 2:15 PM EST Office Visit [facility] [address] [place] [address] Breanna Zamudio ANP [address] [place] [address] documented as of this encounter Visit Diagnoses Not on filedocumented in this encounter Care Teams Nail Making Machine Tender Relationship Specialty Start Date End Date Breanna Zamudio ANP [address] [place] [address] PCP - General Family Medicine 10/03/19 Ludmila Walker MD [address]rd [place] [address] Gastroenterology 11/22/24 [facility] [place] 07/31/23 documented as of this encounter
--- OUTSIDE RECORDS SUMMARY | 2025-02-20 20:48 | XMS_ITS | Encounter Summary ---
Author Organization [employer] Address [address] 7t [place] [address] Care Team Providers Care Gasoline Pump Mechanic Name Role Phone Breanna Zamudio Primary Care Provider [phone] Ludmila Walker MD Unavailable Reason for Visit * Reason Onset Date Comments Med Refill 02/27/2023 Encounter Details Date Type Department Care Team (Late st Contact Info) Description 02/27/2023 Telephone [facility] MEDICINE [address] [place], [place] [phone] Breanna Zamudio ANP [address] [place], [place] [phone] Med Refill Social History Tobacco Use Types [...] [facility] [address] [place] [address] Sis Coppola, RN [address] [place] [address] 04/18/2025 2:15 PM EST Office Visit [facility] MEDICINE [address] [place] [address] Breanna Zamudio ANP [address] [place] [address] documented as of this encounter Visit Diagnoses Not on filedocumented in this encounter Care Teams Gasoline Pump Mechanic Relationship Specialty Start Date End Date Breanna Zamudio ANP [address] [place] [address] PCP - General Family Medicine 10/03/19 Ludmila Walker MD [address] [place] [address] 3rd [place] [address] Gastroenterology 11/22/24 [facility] 07/31/23 documented as of this encounter
--- OUTSIDE RECORDS SUMMARY | 2025-02-20 20:48 | XMS_ITS | Encounter Summary ---
Author Organization [employer] Address [address] [facility] 7t [place] [address] Care Team Providers Care Boiler Cleaner Name Role Phone Breanna Zamudio Primary Care Provider [phone] Ludmila Walker MD Unavailable [phone] Reason for Visit * Reason Comments Med Refill Encounter Details Date Type Department Care Team (Late st Contact Info) Description 12/02/2022 Refill [facility] MEDICINE [address] [place] [address] Breanna Zamudio ANP [address] [place] [address] Pain in unspecified joint Social History Tobacco [...] Description 03/02/2025 1:00 PM EST Clinical Support [facility] [address] [place] [address] Sis Coppola, RN [address] [place], [place] [phone] 04/18/2025 2:15 PM EST Office Visit [facility] [address] [place] [address] Breanna Zamudio ANP [address] [place] [address] documented as of this encounter Visit Diagnoses Diagnosis Pain in unspecified joint documented in this encounter Care Teams Boiler Cleaner Relationship Specialty Start Date End Date Breanna Zamudio ANP [address] [place] [address] PCP - General Family Medicine 10/03/19 Ludmila Walker MD [address] [place] [address] 3rd [place] [address] Gastroenterology 11/22/24 [facility] 07/31/23 documented as of this encounter
--- OUTSIDE RECORDS SUMMARY | 2025-02-20 20:48 | XMS_ITS | Encounter Summary ---
Author Organization [employer] Address [address] [facility] 7t [place] [address] Care Team Providers Care Strategic Sourcing Manager Name Role Phone Breanna Zamudio Primary Care Provider [phone] Ludmila Walker MD Unavailable [phone] Reason for Visit * Reason Comments Med Refill Encounter Details Date Type Department Care Team (Late st Contact Info) Description 11/21/2022 Refill [facility] MEDICINE [address] [place] [address] Breanna Zamudio ANP [address] [place] [address] Pain in unspecified joint Social History Tobacco [...] 03/02/2025 1:00 PM EST Clinical Support [facility] [address] [place] [address] Sis Coppola, RN [address] [place], [place] [phone] 04/18/2025 2:15 PM EST Office Visit [facility] MEDICINE [address] [place] [address] Breanna Zamudio ANP [address] [place] [address] documented as of this encounter Visit Diagnoses Diagnosis Pain in unspecified joint documented in this encounter Care Teams Strategic Sourcing Manager Relationship Specialty Start Date End Date Breanna Zamudio ANP [address] [place] [address] PCP - General Family Medicine 10/03/19 Ludmila Walker MD [address] [place] [address] 3rd [place] [address] Gastroenterology 11/22/24 [facility] 07/31/23 documented as of this encounter
--- OUTSIDE RECORDS SUMMARY | 2025-02-20 20:49 | XMS_ITS | Data Portability ---
Author Organization [facility], Main Office Address [address] [facility] [place] [address] Care Team Providers Care Regional Merchandising Manager Name Role Phone SANDRITA BEARDEN 1ST FLOOR OTHER [place] [employer] Primary Care Provider Assessment Encounter Date Assessment Date Assessment LastModified by Organization Details LastModified Time 08/04/2018 08/04/2018 Hgb 11.5, Hct 34.7 in hospital [facility] Not available 08/04/2018 08:51:23 Plan of [...] By Organization Details Last Modified Time 08/06/2018 [id number] Also, for PCP to evaluate whether or [...] knee joint Active 2018 SARAH MATIAS [address] [facility], [address], [place], [address], [facility] [employer] 9 08:19:48 Asthma 475114558 Active 2018 SARAH MATIAS [address], [place], [address], [facility] [employer] 9 08:23:00 Gastroesophage al reflux disease without esophagitis 993607875 Active 2018 SARAH MATIAS [address], [address], [place], [address], [facility] 9 08:23:06 Essential hypertension 19721274 Active 2018 SARAH MATIAS [address], [place], [address], [facility] 9 08:23:16 Hypothyroidism 35976358 Active 2018 SARAH MATIAS [address], [place], [address], [facility] 9 08:23:25 Type 2 diabetes mellitus 68940865 Active 2018 SARAH MATIAS [address], [place], [address], [facility] 9 08:23:34 Anxiety 33010581 Active 2018 SARAH MATIAS [address] [facility], [address], [place], [address], [facility] 9 08:24:11 Hormone therapy Active 2018 SARAH MATIAS [address], [place], [address], [facility] 9 08:24:30 Chronic constipation 468130993 Active 2018 SARAH MATIAS [address], [place], [address], [facility] 9 08:25:50 Acute urinary tract infection 414173765 Active 2018 SARAH MATIAS [address], [place], [address], [facility] 9 08:26:59 Hypercholester olemia 55421693 Active 2018 SARAH MATIAS [address], [place], [address], [facility] 9 08:28:38 Depressive disorder 42818077 Active 2018 HILARIA SARAH SOMMER [address] [facility], [address], [place], [address], [facility] 9 08:42:14 Falls 049358765 Active 2018 HILARIASARAH BREWER [address] [facility], [address], [place], [address], [facility] 9 09:41:31 Gastroesophage al reflux disease 585109373 Active 2018 Eilza Garza MD [address] [facility], [address], [place], [address], [facility] 9 11:39:19 Problem Notes None recorded. Medical [...] 96 % 156/70 mm[Hg] SARAH MATIAS [address] [facility], [facility] [address], [place], [address], [facility] 9 08:17:26 Date Recorded Systolic And Diastolic Provider Name and Address Organization Details Last Updated DateTime 08/06/2018 156/70 mm[Hg] Eliza Garza MD [address] [facility], [facility] [address], [place], [address], [facility] 08/06/2018 11:18:46 Social History Question Answer Notes LastModified by Organizat ion Details LastModified Time Tobacco Smoking Status Never Smoker Not Available [employer] 01/10/2020 03:13:23 Do You Have An Advance Directive? Yes FULL CODE- Use Dialysis, Nutrtition And Hydration [id number] Information not available 01/10/2020 How Much Tobacco Do You Chew? None [id number] Information not available 01/10/2020 Do You Have A Medical Power Of Subway Operator? Yes HCP On File [id number] Information not available 01/10/2020 What Was The Date Of Your Most Recent Tobacco Screening? 08/04/2018 [id number] Information not available 01/10/2020 Sex: Unknown Functional Status Question Answer Note LastModified by Organization D etails LastModified Time What is your level of alcohol consumption? None [id number] Information not available 01/10/2020 Mental Status None recorded. Family History Nothing Reported. Medical History No medical history recorded. Gynecological HistoryNo gynecological history recorded. Obstetrics History GPAL:G 0 P 0 0 0 0 Immunizations Vaccine Type Date Status Note Provider Nam e and Address Organization Details Recorded Time Hep B, unspecified formulation 7 completed Dnanaromi Ocampo [facility] 07/21/2023 15:47:49 Hep B, unspecified formulation 8 completed Danna Terrence [facility] 07/21/2023 15:47:57 Tdap 7 completed Danna Ocampo [facility] 07/21/2023 15:48:12 Td(adult) unspecified formulation 7 completed Danna Terrence [facility] 07/21/2023 15:48:25 Pneumococcal conjugate PCV20, polysaccharide [id number] conjugate, adjuvant, PF 3 completed Danna Ocampo [facility] 07/21/2023 15:53:08 influenza, unspecified formulation 3 completed Danna Ocampo [facility] 07/21/2023 16:00:43 influenza, unspecified formulation 3 completed Danna Ocampo [facility] 07/21/2023 16:01:16 Hep A, unspecified formulation 7 completed Danna Ocampo [facility] 07/21/2023 16:08:25 Hep A, unspecified formulation 8 completed Danna Ocampo [facility] 07/21/2023 16:08:36 SARS-COV-2 (COVID-19) vaccine, UNSPECIFIED 1 completed [facility] 07/21/2023 16:11:09 SARS-COV-2 (COVID-19) vaccine, UNSPECIFIED 1 completed [facility] 07/21/2023 16:11:19 SARS-COV-2 (COVID-19) vaccine, UNSPECIFIED 2 completed [facility] 07/21/2023 16:11:32 SARS-COV-2 (COVID-19) vaccine, UNSPECIFIED 3 completed [facility] 07/21/2023 16:12:34 zoster, unspecified formulation 7 completed [facility] 07/21/2023 16:12:52 Past Encounters Encounter ID Performer Location Encounter Start Date Encounter Closed Date Diagnosis/Indication Diagnosis SNOMED-CT Code Diagnosis ICD10 Code Diagnosis IMO Codes Diagnosis Note [id number] SARAH MATIAS [address] [address] 08/04/2018 08:13:08 08/06/2018 15:43:41 Replacement of total knee joint 207171672 Z96.651 PT/OT eval and treat for gait training and strengthen ingROM 0-120WBATl imit stair climbingno showersuse a walkerkeep aquacel dressing clean and intactoxyc odone 10 mg q 4 hrs prnultram 50 mg q 6 hrs prntylenol 650 mg q 6 hrs scheduledA SA 325 mg bid x 15 dayspost op appt with ortho on 08/11/18 Acute urin gael tract infection 937324870 N30.00 keflex 500 mg bid x 5 daysmonito r for resolution Asthma 052896199 J45.99 8 albuterol hfa 1-2 puffs q 4 hrs prnqvar 40 mcg 2 puffs bidmonitor for respirator y symptoms Gastroesop hageal reflux disease without esophagitis 009682221 K21.9 dexlansopr azole 60 mg qdmonitor for symptoms Type 2 radha betes mellitus 28559368 E11.9 trulicity 1.5 mg q weekglybur lima 1.25 mg qdlantus 28 units q pmmetformi n er 500 mg q am and 1000 mg q pmmonitor for s/s of hypo/hyper glycemia Essential hypertension 10862011 I10 lasix 20 mg qdHCTZ 50 mg qdlisinopr il 40 mg qdmetoprol ol succinate 200 mg qdverapami l er 360 mg qdmonitor b/p and pulse Hypothyroidism 19262904 E03.8 levothyrox ine 75 mcg qdmonitor TSH Hormone re placement therapy 312298435 Z79.890 estradiol 1 mg qdmonitor Anxiety 76742464 F41.1 atarax 50 mg q 6 hrs prnativan 1 mg bid prndiscuss ed risk vs benefit of ativan with patientmon itor for anxiety Depressive disorder 3543 6367 F32.89 effexor 75 mg bidtrazodo ne 50 mg q hsdiscusse d risk vs benefit of effexor and trazodone with patientmon itor moodpsych eval and treat prn Chronic constipation 236 440326 K59.09 linaclotid e 72 mg qdmonitor constipati on with opioid use Hypercholesterolemia 136 37821 E78.2 crestor 20 mg q hsmonitor labs [place] 889960066 R29.6 PT/OT eval and treatmonit or for safetyenco urage walker use [id number] Eliza Garza MD [address] [address] 08/06/2018 11:17:07 08/11/2018 09:54:55 Asthma 155922084 J45.30 Qvar 1 puff bidprovent il HFA 2 puffs q4h prn Chronic constipation 236 955111 K59.09 good bowel regimenLin zess 72 mcg daily Depressive disorder 3545 8587 F32.89 trazodone 50 mg at hsvenlafax ine ER 75 mg dailyfu psych prn Hypothyroidism 11837935 E03.8 levothyrox ine 75 mcg dailyfu as outpatient Acute urin gael tract infection 987961644 N30.00 finish course cephalexin 500 mg bidencoura ge good hydrationf u prn Type 2 radha betes mellitus 73864998 E11.9 metformin ER 1000 mg in evening and ER 500 mg in morninggly buride 1.25 mg dailyLantu s 28U dailyTruli city 1.5mg once a week continue to monitor with PCP when outpatient Essential hypertension 74367097 I10 HCTZ 50 mg dailyfuros emide 20 mg dailymetop rolol XL 200 mg dailyverap armen 360 mg dailylisin opril 40 mg dailyfor PCP to evaluate as outpatient if 2 different diuretics are needed - may be able to d/c either HCTZ or furosemide History of total knee arthroplasty 2189585579 105 Z96.651 continue PT/OTAPAP prnASA 325 mg bidoxycodo ne 10 mg q4h prntramado l 50 mg q8h prn Anxiety 14183544 F41.1 lorazepam 1 mg bid prnfu PCP Gastroesop hageal reflux disease 090414908 K21.9 Dexilant 60 mg dailyfu as outpatient Health Concerns Section Related Observation LastModified by Organization Detai ls LastModified Time None Recorded Concern Status LastModified by Organization Details LastModified Time None Recorded Advance Directives Directive Y: FULL CODE- use dialysis, nutrtition and hydration Payers Insurance Date Sequence Insurance Name Policy Number Policy Cramer Covered Member ID Cramer Member ID Guarantor Name 08/06/2018 2 [place] [facility] Lois Dalton [id number] Lois Dalton 07/21/2023 1 [facility] - DOS PRIOR TO 2022 - DUAL ELIGIBLE (MEDICARE REPLACEMENT/AD VANTAGE - HMO) Lois Dalton [id number] Lois Dalton 07/21/2023 1 [facility] - DOS ON OR AFTER 2022 - MEDICARE ADVANTAGE [place] (MEDICARE REPLACEMENT/AD VANTAGE - PPO) Lois Dalton [id number] Lois Dalton Notes Date Note Type Note Provider Name and Address Organization Details Recorded Time 9 text/html A 63 year old female being seen for a initial intake note. Patient had an elective right knee replacement at [facility] on 07/26/18. She went home with vna despite attempts to get her to go to rehab. She attempted to get up out of her chair and walker was not locked causing her to fall. She then was able to ambulate for several days then ran out of pain medication. She went to [facility] er to get pain under control. X-ray and ultrasound were negative. While in the hospital she complained of burning on urination and frequency. A urine sample was sent which was positive for a UTI. She was sent here for some short term rehab. Medical history of constipation, anxiety/depression, HTN, DM, GERD, asthma, hypercholesterolemia and hormone replacement. SARAH MATIAS [address] [facility], [address], [place], [address], [employer] 08/04/2018 09:42:29 9 text/html ROS as noted in the HPI 63 year old female admitted to [facility] 08/03/18 for rehab after TKR 07/26/18. Patient had been discharged home 07/29/18 with VNA services after TKR and fell when attempted to get up out of chair when walker was not locked causing a fall. She was able to ambulate for several days then ran out of pain medication. She went to [facility] ER to get pain under [...] Patient has done with PT/OT here at [facility] and is now ready for discharge with VNA services at home. Advance directives: full code Eliza Garza MD [address] [place] [address], [address], [place], [address], [employer] 08/06/2018 11:52:07 OBGyn Episode No OBEpisode recorded.
== END ==
LOC: HO.CARD 12:25
PROVIDERS: PCP Nurse Practitioner Primary Care; Visit Provider Hospitalist
DX: I27.20 Pulmonary hypertension, unspecified (principal)
CPT/HCPCS: 93306; Q9957

== ENCOUNTER → 2025-02-20 12:28 | Outpatient (BNV) | payer OTHER, SELFPAY | PROVIDERS: PCP Nurse Practitioner Primary Care; Visit Provider Internal Medicine Cardiovascular Disease | DX: I27.20 Pulmonary hypertension, unspecified (principal) | CPT/HCPCS: 93306 ==

== ENCOUNTER 2025-03-07 12:39 | Outpatient (AMB) | payer OTHER, SELFPAY ==
--- OUTSIDE RECORDS SUMMARY | 2025-03-02 13:00 | XMS_ITS | Encounter Summary ---
Author Organization [employer] Address [address] [place] [address] Care Team Providers Care Digital Associate Name Role Phone Robb Breanna SILVA Primary Care Provider [phone] Ludmila Walker MD Unavailable [phone] Reason for Visit * Reason Comments BEEF TRIMMER Encounter Details Date Type Department Care Team ([facility] Contact Info) Description 03/02/2025 1:00 PM EST Telemedicine [facility] CH[facility] MED & PEDS [address] [place] [address] Sis Coppola, RN [address] [place] [address] Chronic midline thoracic back pain Social History Tobacco Use Types Packs/Day Years [...] AM EDT documented as of this encounter Progress Notes * Sis Coppola RN - 03/02/2025 1:00 PM EST SUBJECTIVE: Lois Dalton is a 69 y.o. year old female who presents for BEEF TRIMMER Preferred language for medical information: Tuvaluan Interpreted needed: Yes Procurement Agent service utilized: [employer] language interpreters Procurement Agent I.D #: [id number] Lois Dalton does report adherence to Oxycodone 10 mg, take 1 tablet every 6 hours PRN, last refilled 03/01/25. The patient last took Oxycodone on: 03/02/25 Medication is: 20% % effective at alleviating pain. OBJECTIVE: WIND TURBINE SERVICE TECHNICIAN checked: 03/02/2025 Pill count completed for Oxycodone , count today is 80 , anticipated count should be 78, this is asexpected. Vital Signs Pain Score: 10-Worst pain ever Pain Loc: Back Pain Education: Yes Last PCP visit: 02/13/25 BPI completed on: 08/10/24 , pain severity score: 9, activity interference score: 10 Controlled substance agreement signed: Controlled Substance Agreement 08/10/2024 BEEF TRIMMER Tier: 2 Current Medications[1] Smoking status: Denies ETOH use: Yes . Occasional ETOH use, pt educated of the risks associated with the combination of ETOH and opioids, verbalized understanding. Illicit substances: Denies Marijuana use: Denies, Lab Results Component Value Date POCOPIATEUR Positive 08/10/2024 POCOXYCODONE Positive 08/10/2024 ASSESSMENT: BEEF TRIMMER Contract Revisit: Opioid dependence related to chronic pain. PLAN: Information on pain group given: Previously discussed Information on acupuncture given: Previously discussed Narcan education provided: Previously discussed Narcan prescription: active Lois Dalton will continue taking medication as prescribed and follow up at the next BEEF TRIMMER visit or sooner if needed. Lois Dalton has verbalized understanding of care plan. Future Appointments Date Time Provider Department Center 04/18/2025 2:15 PM RICARDO Caraballo MEDICINE [facility] 04/26/2025 3:15 PM Sis Coppola, AIDA [facility] Sis Coppola RN [1] Current Outpatient Medications: acetaminophen (Tylenol 8 Hour) 650 MG ER tablet, TAKE 1 TABLET BY MOUTH EVERY 8 HOURS NEEDED SWALLOW WHOLE WITH WATER DO NOT BREAK, CRUSH, DISSOLVE OR CHEW, Disp: 90 tablet, Rfl: 0 albuterol 0.63 MG/3ML nebulizer solution, INHALE 1 AMPULE USING A NEBULIZER EVERY 4 TO 6 HOURS NEEDED FOR WHEEZING OR SHORTNESS OF BREATH FOR (for asthma), Disp: 75 mL, Rfl: 2 Alcohol Swabs (SM Alcohol Prep) 70 % pads, USE TWICE DAILY DIRECTED, Disp: 100 each, Rfl: 11 Blood Glucose Monitoring Suppl (Sheer DriveTouch Verio Flex System) w/Device kit, TEST BLOOD SUGAR TWICE DAILY, Disp: , Rfl: cholecalciferol (Vitamin D-3) 50 MCG (1999) tablet, Take 1 tablet by mouth in the morning., Disp: , Rfl: cloNIDine (Catapres) 0.1 MG tablet, TAKE 2 TABLETS BY MOUTH EVERY DAY AT BEDTIME, Disp: 60 tablet, Rfl: 2 Continuous Glucose Firewood Cutter (FreeStyle Manuelito 2 [place]) device, Use as directed, Disp: , Rfl: Continuous Glucose Sensor (FreeStyle Manuelito 2 Sensor) [facility], Every 2 weeks to monitor BG, Disp: , Rfl: Cyanocobalamin (Vitamin B-12) 1000 MCG sublingual tablet, DISSOLVE 1 TABLET BY MOUTH DAILY, Disp: ,Rfl: cyclobenzaprine (Flexeril) 5 MG tablet, TAKE 1 TABLET BY MOUTH UP TO THREE TIMES DAILY NEEDED, Disp: 30 tablet, Rfl: [address] capsule, Take 1 capsule (60 mg) by mouth in the morning., Disp: 30 capsule, Rfl: 2 Eliquis 5 MG tablet, Take 1 tablet (5 mg) by mouth 2 times daily., Disp: 60 tablet, Rfl: 2 fluticasone (Flonase) 50 MCG/ACT nasal spray, INSTILL 1 SPRAY IN EACH NOSTRIL ONCE DAILY IN THE MORNING, Disp: 16 g, Rfl: 2 furosemide (Lasix) 20 MG tablet, Take 1 tablet (20 mg) by mouth Once per day., Disp: 90 tablet, Rfl: 1 hydrOXYzine HCl (Atarax) 50 MG tablet, TAKE 1 TABLET BY MOUTH EVERY 8 HOURS NEEDED FOR ANXIETY, Disp: 270 tablet, Rfl: 1 insulin pen needle (Pentips) 32G x 4 mm misc, Use as instructed, Disp: 100 each, Rfl: 5 Jardiance 25 MG, Take 1 tablet by mouth 1 (one) time each day., Disp: , Rfl: Lancets (OneTouch Delica Plus [id number]) misc, TEST BLOOD SUGAR TWICE DAILY, Disp: , Rfl: Lantus SoloStar 100 UNIT/ML pen, INJECT 34 UNITS SUBCUTANEOUSLY EVERY EVENING, Disp: , Rfl: levothyroxine (Synthroid, Levoxyl) 75 MCG tablet, TAKE 1 TABLET BY MOUTH EVERY DAY BEFORE BREAKFAST, Disp: 90 tablet, Rfl: 1 lidocaine (Lidoderm) 5 % patch, Apply 1 patch topically Once per day. Remove & discard patch within 12 hours or as directed by MD., Disp: 30 patch, Rfl: 2 Linzess 290 MCG capsule, TAKE 1 CAPSULE BY MOUTH EVERY MORNING, Disp: , Rfl: metoprolol succinate XL (Toprol-XL) 200 MG 24 hr tablet, TAKE 1 TABLET BY MOUTH EVERY MORNING, Disp: 90 tablet, Rfl: 3 Multiple Vitamins-Iron (Tab-A-Saima/Iron/Beta Carotene) tablet, TAKE 1 TABLET BY MOUTH EVERY DAY WITH FOOD, Disp: 90 tablet, Rfl: 3 Multiple Vitamins-Minerals (CertaVite/Antioxidants) tablet, TAKE 1 TABLET BY MOUTH EVERY DAY WITH FOOD, Disp: 90 tablet, Rfl: 3 naloxone (Narcan) 4 mg/0.1 mL nasal spray, FOR SUSPECTED OPIOID OVERDOSE. SPRAY 0.1mL IN ONE NOSTRIL. REPEAT IN ALTERNATE NOSTRIL 2-3 MINUTES IF NEEDED. SEEK MEDICAL ATTENTION IMMEDIATELY EVEN IF PATIENT RESPONDS., Disp: 2 each, Rfl: 1 Nebulizers (Proneb Ultra II/LC Plus) device, Use with albuterol, Disp: , Rfl: olmesartan (Benicar) 40 MG tablet, TAKE 1 TABLET BY MOUTH EVERY DAY, Disp: 90 tablet, Rfl: 0 OneTouch Verio test strip, TEST BLOOD SUGAR TWICE DAILY, Disp: , Rfl: oxyCODONE (Roxicodone) 10 MG immediate release tablet, Take 1 tablet (10 mg) by mouth every 6 (six)hours if needed for severe pain for up to 21 days. Do not start before March 01, 2025., Disp: 84tablet, Rfl: 0 Ozempic, 0.25 or 0.5 MG/DOSE, 2 MG/3ML solution pen-injector, INJECT 0.5 MG SUBCUTANEOUSLY ONCE A WEEK, Disp: , Rfl: psyllium (Metamucil Smooth Texture) 58.6 % powder, 1 tsp powder in 8oz in water once daily, Disp: 283 g, Rfl: 11 Respiratory Therapy Supplies (Nebulizer) device, Use for albuterol every 4-6 hours as needed for asthma sx, Disp: 1 each, Rfl: 0 Respiratory Therapy Supplies (Nebulizer/Tubing/Mouthpiece) kit, Use w/ nebulizer, Disp: 1 kit, Rfl:1 rosuvastatin (Crestor) 40 MG tablet, Take 1 tablet by mouth 1 (one) time each day., Disp: , Rfl: sucralfate (Carafate) 1 g tablet, Take 1 tablet (1 g) by mouth before breakfast, before lunch, before evening meal, and at bedtime., Disp: 120 tablet, Rfl: 2 traZODone (Desyrel) 150 MG tablet, TAKE 2 TABLETS BY MOUTH EVERY DAY AT BEDTIME, Disp: 60 tablet, Rfl: 5 Trelegy Ellipta 200-62.5-25 MCG/ACT aerosol powder , INHALE 1 PUFF EVERY DAY AT THE SAME TIME, Disp: , Rfl: TRUEplus Glucose 4 g chewable tablet, CHEW 4 TABLETS NEEDED FOR low blood sugar (LESS THAN 70mg/dL), Disp: 50 tablet, Rfl: 12 venlafaxine XR (Effexor XR) 150 MG 24 hr capsule, TAKE 1 CAPSULE BY MOUTH DAILY WITH 75 MG CAPSULE.DO NOT BREAK, CRUSH, DISSOLVE OR CHEW, Disp: 90 capsule, Rfl: 1 venlafaxine XR (Effexor XR) 75 MG 24 hr capsule, TAKE 1 CAPSULE BY MOUTH DAILY WITH 150 MG CAPSULE.DO NOT BREAK, CRUSH, DISSOLVE OR CHEW, Disp: 90 capsule, Rfl: 1 Ventolin HFA 108 (90 Base) MCG/ACT inhaler, Inhale 1 puff every 4 (four) hours if needed for wheezing., Disp: , Rfl: verapamil SR (Calan SR) 180 MG ER tablet, TAKE 2 TABLETS BY MOUTH EVERY DAY WITH FOOD, Disp: 180 tablet, Rfl: 3 documented in this encounter Plan of Treatment Upcoming Encounters Date Type Department Care Team (Late st Contact Info) Description 04/18/2025 2:15 PM EST Office Visit [facility] MEDICINE [address] [place] [address] Breanna Zamudio ANP [address] [place] [address] 04/26/2025 3:15 PM EST Clinical Support [facility] CHC MED & PEDS [address] [place] [address] Sis Coppola, RN [address] [place] [address] documented as of this encounter Goals Goal [...] Care Plan Weekly blood pressure task No [employer] Roche Weekly blood pressure task Care Plan Weekly blood pressure task No [employer] Roche Patient has chronic kidney disease Care Plan Patient has chronic kidney disease No Stanford Roche Patient has chronic kidney disease Care Plan Patient has chronic kidney disease No Stanford Roche Weekly blood pressure task Care Plan Weekly [...] Care Plan Weekly blood pressure task No Dave Arita Weekly blood pressure task Care Plan Weekly blood pressure task No Dave Arita Patient has chronic kidney disease Care Plan Patient has chronic kidney disease No Dave Arita Patient has chronic kidney disease Care Plan Patient has chronic kidney disease No Dave Arita Weekly blood pressure task Care Plan Weekly blood pressure task No Dave Arita Weekly blood pressure task Care Plan Weekly blood pressure task No Dave Arita Patient has chronic kidney disease Care Plan Patient has chronic kidney disease No Dave Arita Patient has chronic kidney disease Care Plan Patient has chronic kidney disease No Dave Arita Weekly blood pressure task Care Plan Weekly [...] as of this encounter Visit Diagnoses Diagnosis Chronic midline thoracic back pain documented in this encounter Additional Health Concerns [...] 02/16/2025 Patient has chronic kidney disease 02/16/2025 Weekly blood pressure task 02/22/2025 Weekly blood pressure task 02/22/2025 Patient has chronic kidney disease 02/22/2025 Patient has chronic kidney disease 02/22/2025 Weekly blood pressure task 02/22/2025 Weekly blood pressure task 02/22/2025 Patient has chronic kidney disease 02/22/2025 Patient has chronic kidney disease 02/22/2025 Weekly blood pressure task 02/27/2025 Weekly blood pressure task 02/27/2025 Patient has chronic kidney disease 02/27/2025 Patient has chronic kidney disease 02/27/2025 Weekly blood pressure task 02/28/2025 Weekly blood pressure task 02/28/2025 Patient has chronic kidney disease 02/28/2025 Patient has chronic kidney disease 02/28/2025 Weekly blood pressure task 02/28/2025 Weekly blood pressure task 02/28/2025 Patient has chronic kidney disease 02/28/2025 Patient has chronic kidney disease 02/28/2025 Weekly blood pressure task 03/02/2025 Weekly blood pressure task 03/02/2025 Patient has chronic kidney disease 03/02/2025 Patient has chronic kidney disease 03/02/2025 Assessment Noted Time PHQ-9 Depression Total Score: 7 02/14/20 1:01 PM EST documented as of this encounter Care Teams Digital Associate Relationship Specialty Start Date End Date Breanna Zamudio ANP [address] [place] [id number] PCP - General Family Medicine 10/03/19 Ludmila Walker MD [address] [place] [address] 3rd [place] [address] Gastroenterology 11/22/24 [facility] 07/31/23 documented as of this encounter
--- NOTE | 2025-03-07 12:44 | MHC.OFFVIS ---
Vital Signs 03/07/25 12:45 Height 5 ft 5 in Weight 197 lb 15.602 oz BMI 32.9 BP 110/64 Blood Pressure Location Lt brachial Position Sitting Pulse 84 Pulse Source Pulse Oximeter Pulse Oximetry (%) 98 Oxygen Delivery Method Room Air Intake Visit Reasons: Type II diabetes Intake Note: Patient present today to follow up on Type 2 Diabetes Mellitus. Last Diabetic Eye exam: 02/08/24 Last Podiatry Visit: Does not see a Sulfuric Acid Plant Supervisor Random Glucose: 217 mg/dL Most HgA1C: 7.4% 01/31/2025 Child Care Associate Required: Yes Child Care Associate Language: Assistant Professor Of Business Services: Child Care Associate Present Child Care Associate Name: Zachary [id number] Information Interpreted: non-clinical & clinical Accompanied by: Self / Same As Patient Allergies hazelnut Allergy (Mild, Verified 01/31/25 13:01) per allergy skin test peanut Allergy (Mild, Verified 01/31/25 13:01) per allergy skin test Medication List - Last Reconciled 03/07/25 by CHEMA Elizabeth acetaminophen ER 650 mg PO TID albuterol sulfate 90 mcg/actuation (Ventolin HFA) 90 mcg inhalation Q4H PRN albuterol sulfate 1 amp inhalation Q4H PRN albuterol sulfate 90 mcg/actuation 2 inhalations inhalation Q6H PRN 30 days apixaban (Eliquis) 5 mg PO BID 90 days blood sugar diagnostic As directed blood sugar diagnostic (OneTouch Verio test strips) Use as directed to check blood glucose twice daily. blood-glucose meter (OneTouch Verio Flex Meter) Use as directed to check blood glucose blood-glucose sensor (FreeStyle Manuelito 3 Plus Sensor device) Apply 1 new sensor every 15 days as directed to monitor blood glucose continuously. blood-glucose,motor scooter mechanic,cont (FreeStyle Manuelito 3 [place]) Use daily to monitor blood glucose levels continuously. budesonide-formoterol 160-4.5 mcg/actuation (Symbicort) 2 puffs inhalation BID 30 days celecoxib 200 mg PO DAILY cholecalciferol (vitamin D3) 50 mcg PO QAM clonidine HCl 0.1 mg PO BID commode (bedside commode) As directed cyanocobalamin (vitamin B-12) 1,000 mcg PO DAILY dexlansoprazole 60 mg PO DAILY dicyclomine 10 mg PO TID docusate sodium 100 mg PO BID 14 days empagliflozin (Jardiance) 25 mg PO QAM fluticasone propionate 50 mcg/actuation 1 spray intranasal DAILY gabapentin 100 mg PO TID 90 days insulin glargine (Lantus Solostar U-100 Insulin) 40 units (0.4 mL) subcut BEDTIME lancets (OneTouch Delica Plus Lancet) As directed to check blood sugar twice daily. levothyroxine 75 mcg PO QAM linaclotide (Linzess) 290 mcg PO DAILY lisinopril 40 mg PO DAILY meclizine 25 mg PO DAILY PRN melatonin 5 mg PO BEDTIME PRN 30 days mesalamine (Lialda) 2.4 grams (2 x 1.2 gram) PO DAILY 8 weeks metformin ER 1,000 mg (2 x 500 mg) PO BID 90 days metoprolol succinate ER 200 mg PO DAILY whnnwxnayjvu-buvd-twnlh acid 18-400 mg-mcg (Certavite-Antioxidant) 1 tab PO DAILY olmesartan 40 mg PO DAILY ondansetron 4 mg PO Q8H PRN oxycodone 10 mg PO QID PRN psyllium husk (Reguloid (psyllium husk)) 3 grams PO DAILY rosuvastatin 40 mg PO DAILY tamsulosin 0.4 mg PO DAILY 90 days tirzepatide (Mounjaro) 5 mg (0.5 mL) subcut QWEEK trazodone 150 mg PO BEDTIME venlafaxine ER 150 mg PO DAILY HPI Comments Details: This is a 69-year-old female with a past medical history of nontoxic multinodular goiter, type 2 diabetes, hypothyroidism, secondary hyperparathyroidism, hypertension, hyperlipidemia , COPD and PE on chronic anticoagulation presenting for diabetes follow up. Hemoglobin A1c 7.4% 01/31/25. Does not have CGM today. Denies hypoglycemia. Reports highest sugar in the last couple weeks was 180. Current regimen: Mounjaro 2.5 mg weekly Metformin ER 1000 mg b.i.d. Lantus 40 units at bedtime Jardiance 25 mg q.a.m. Past medication: Actos discontinued due to lower leg edema. Ozempic switched to Mounjaro due to suboptimal a1c on max dose and obesity Endorses mild neuropathy in her feet. Hyperglycemia symptoms: denies Eye exam: Up-to-date The patient has hypertension. She did ask her primary care doctor about her med regimen because lisinopril and olmesartan were on her medication list. She reports that she is not taking lisinopril. She also takes metoprolol succinate 200 mg. Hyperlipidemia is treated with rosuvastatin 40 mg. ROS: Constitutional: No unexplained weight loss, fever, chills or night sweats. Eyes: No vision change Gastrointestinal: No anorexia, nausea, vomiting or diarrhea. No abdominal pain. Denies constipation. Neurologic: No headache, dizziness, syncope Skin: No rash Endocrine: No cold or heat intolerance. No polyuria or polydipsia. Physical exam: Constitutional: Alert, in no distress. Neck: Supple, Full range of motion. No lymphadenopathy. No palpable thyroid masses. Respiratory: Clear to auscultation. Cardiovascular: S1 S2 regular. No murmurs. [facility] Medical History (Updated 03/07/25 @ 13:17 by CHEMA Elizabeth) Pulmonary embolism Asthma-COPD overlap syndrome Hypertension MGUS (monoclonal gammopathy of unknown significance) Chronic restrictive lung disease Obesity (BMI 30.0-34.9) Eosinophilia Erosive gastritis Leg edema, left Hyperparathyroidism Vitamin D deficiency Multinodular thyroid Thyroid nodule Type 2 diabetes mellitus with diabetic polyneuropathy Fibromyalgia Depression with anxiety Cervical cancer Osteoarthritis of left knee Osteopenia GERD (gastroesophageal reflux disease) Meir's disease Other specified acquired hypothyroidism Hyperlipidemia LDL goal <100 Essential hypertension Vitamin B12 deficiency Other obesity due to excess calories BMI 35.0-35.9,adult Surgical History History of total left knee replacement Hx of elbow surgery Hx of hand surgery Hx of arthroscopic knee surgery History of cholecystectomy History of arthroplasty of right knee Hx of hysterectomy Hx of foot surgery History of bilateral carpal tunnel release Hx of bilateral oophorectomy History of esophagogastroduodenoscopy (EGD) Hx of colonoscopy Family History Father CVD (cardiovascular disease) Diabetes mellitus Stroke Mother Stroke Diabetes mellitus Breast cancer Hyperthyroidism Social History Household Members: Spouse Housing: House Housing Other:: 2nd floor-2 family house Are you a primary primary care coordinator to a significant other at home: No Do you presently have visiting nurse or other home services: No Alcohol intake: never Comment: continues with camera Patient Tobacco Use Status: Never used Tobacco Advance Directives Date on File: 03/06/23 service: No 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al status: disabled 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: Right Handed Female Reproductive History Menstrual Age of Menarche: 11 Physical Exam Vital Signs: Last Vital Signs Pulse 84 03/07/25 12:45 BP 110/64 03/07/25 12:45 Pulse Ox 98 03/07/25 12:45 Oxygen Delivery Method Room Air 03/07/25 12:45 BMI result Body Mass Index 32.9 Results Reviewed Results Reviewed: Laboratory Last Values Glucose (Clinic) 217 mg/dL (60-115) H 03/07/25 12:52 Laboratory Tests 12/12/24 11:04 Creatinine 0.84 Estimated GFR > 60 AST 22 ALT 30 Assessment & Plan Assessment & Plan (1) Type 2 diabetes mellitus with diabetic polyneuropathy: Code(s): E11.42 - Type 2 diabetes mellitus with diabetic polyneuropathy Category: Medical Qualifiers: Diabetes mellitus termite control technician insulin use: with skilled nursing use Qualified Code(s): E11.42 - Type 2 diabetes mellitus with diabetic polyneuropathy; Z79.4 - FDC (current) use of insulin (2) Essential hypertension: Code(s): I10 - Essential (primary) hypertension Category: Medical (3) HLD (hyperlipidemia): Code(s): E78.5 - Hyperlipidemia, unspecified Category: Medical Qualifiers: Hyperlipidemia type: unspecified Qualified Code(s): E78.5 - Hyperlipidemia, unspecified Plan The patient will increase Mounjaro to 5 mg weekly. GLP 1 side effects and administration reviewed. Continue metformin 1000 mg twice a day, Jardiance 25 mg daily and Lantus 40 units nightly. If she has low blood sugars after increasing Mounjaro she will decrease Lantus to 35 units nightly. Reviewed complications of type 2 diabetes. Diabetic diet and lifestyle modifications encouraged. Continue current regimen for hypertension. Requested refill of olmesartan. Continue statin for hyperlipidemia. She has labs already ordered. Follow up in 1 month for type 2 diabetes medication review. Medications: New olmesartan 40 mg PO DAILY 90 tabs 0RF tirzepatide (Mounjaro) 5 mg (0.5 mL) subcut QWEEK 2 mL 0RF Discontinued tirzepatide (Mounjaro) Discontinued Reason: Doctor's Order 2.5 mg (0.5 mL) subcut QWEEK 2 mL 0RF Patient Instructions: Increase Mounjaro 5 mg weekly Metformin ER 1000 mg twice daily Lantus 40 units at bedtime Jardiance 25 mg daily If you have low blood sugars decrease Lantus to 35 units nightly. Aumentar la dosis de Mounjaro a 5 mg semanales. Metformina de liberaci?n prolongada 1000 mg dos veces al d?a. Lantus 40 unidades al acostarse. Jardiance 25 mg al d?a. Si presenta hipoglucemia, reduzca la dosis de Lantus a 35 unidades por la noche. Coding Level of Care Code Est Pt Level 4 (65358) Add On Problem Visit Only Diagnoses Type 2 diabetes mellitus with diabetic polyneuropathy, with long-term current use of insulin E11.42; Z79.4 Diabetes mellitus skilled nursing insulin use: with skilled nursing use Essential hypertension I10 Hyperlipidemia, unspecified hyperlipidemia type E78.5 Hyperlipidemia type: unspecified
[2025-03-07 12:45] VITALS: BP 110/64; PULSE 84; O2SAT 98; BMI 32.9
[2025-03-07 12:57] LABS: Glucose, Whole Blood 217 mg/dL (60-115)
--- OUTSIDE RECORDS SUMMARY | 2025-03-07 13:43 | XMS_ITS | Encounter Summary ---
Author Organization [employer] Address [address] [facility] 7t [place] [address] Care Team Providers Care Psychologist Educational Name Role Phone Breanna Zamudio Primary Care Provider [phone] Ludmila Walker MD Unavailable [phone] Reason for Visit * Reason Comments Med Refill Encounter Details Date Type Department Care Team ([facility] st Contact Info) Description 12/05/2024 Refill [facility] MEDICINE [address] [place], [place] [phone] Breanna Zamudio ANP [address] [place] [address] Long-term current use of opiate analgesic; Osteoarthritis [...] Description 04/18/2025 2:15 PM EST Office Visit [facility] MEDICINE [address] [place] [address] Breanna Zamudio ANP [address] [place] [phone] 04/26/2025 3:15 PM EST Clinical Support [facility] MED & PEDS [address] [place] [address] Sis Coppola, AIDA [address] [place] [address] documented as of this encounter Visit Diagnoses Diagnosis Long-term current use of opiate analgesic Encounter for long-term (current) use of other medications Osteoarthritis of multiple joints, unspecified osteoarthritis type Arthralgia, unspecified joint documented in this encounter Care Teams Psychologist Educational Relationship Specialty Start Date End Date Breanna Zamudio ANP [address] [place] [id number] PCP - General Family Medicine 10/03/19 Ludmila Walker MD [address] [place] [address] Drive 3rd [place] [address] Gastroenterology 11/22/24 [facility] 07/31/23 documented as of this encounter
--- OUTSIDE RECORDS SUMMARY | 2025-03-07 13:43 | XMS_ITS | Encounter Summary ---
Author Organization [employer] Address [address] [facility] [address] [place] [address] Care Team Providers Care Medical Driver Name Role Phone Breanna Zamuido Primary Care Provider [phone] Ludmila Walker MD Unavailable [phone] Encounter Details Date Type Department Care Team (Late st Contact Info) Description 08/31/2023 Telephone [facility] MEDICINE [address] [place], [place] [phone] Breanna Zamudio ANP [address] [place], [place] [phone] Social History Tobacco Use Types Packs/Day Years [...] Description 04/18/2025 2:15 PM EST Office Visit [facility] MEDICINE [address] [place] [address] Breanna Zamudio ANP [address] [place] [phone] 04/26/2025 3:15 PM EST Clinical Support [facility] CH[facility] MED & PEDS [address] [place] [address] Sis Coppola, AIDA [address] [place] [address] documented as of this encounter Visit Diagnoses Not on filedocumented in this encounter Care Teams Medical Driver Relationship Specialty Start Date End Date Breanna Zamudio ANP [address] [place] [id number] PCP - General Family Medicine 10/03/19 Ludmila Walker MD [address] 3rd [place] [address] Gastroenterology 11/22/24 [facility] 07/31/23 documented as of this encounter
--- OUTSIDE RECORDS SUMMARY | 2025-03-07 13:43 | XMS_ITS | Encounter Summary ---
Author Organization [employer] Address [address] [facility] [address] 7t [place] [address] Care Team Providers Care Hand Assembler Name Role Phone Breanna Zamudio Primary Care Provider [phone] Ludmila Walker MD Unavailable [phone] Reason for Visit * Reason Onset Date Comments Med Refill 10/27/2023 Encounter Details Date Type Department Care Team (Late st Contact Info) Description 10/27/2023 Telephone [facility] 230 [place], [place] [phone] Breanna Zamudio ANP 230 [place], [place] [phone] Med Refill Social History Tobacco Use Types [...] immediate release tablet To be sent to: [facility] documented in this encounter Plan of Treatment Upcoming Encounters Date Type Department Care Team (Late st Contact Info) Description 04/18/2025 2:15 PM EST Office Visit [facility] 230 [place] [address] Breanna Zamudio ANP 230 [place] [address] 04/26/2025 3:15 PM EST Clinical Support [facility] 505 [place] [address] Sis Coppola, AIDA 505 [place] [address] documented as of this encounter Visit Diagnoses Not on filedocumented in this encounter Care Teams Hand Assembler Relationship Specialty Start Date End Date Breanna Zamudio ANP [address] [place] [address] PCP - General Family Medicine 10/03/19 Ludmila Walker MD [address] [place] [address] Drive 3rd Floor [place] [phone] Gastroenterology 11/22/24 [facility] 07/31/23 documented as of this encounter
--- OUTSIDE RECORDS SUMMARY | 2025-03-07 13:43 | XMS_ITS | Encounter Summary ---
Author Organization [employer] Address [address] [facility] [address] 7t [place] [address] Care Team Providers Care Station Gateman Name Role Phone Breanna Zamudio Primary Care Provider [phone] Ludmila Walker MD Unavailable [phone] Encounter Details Date Type Department Care Team (Late st Contact Info) Description 08/06/2023 Telephone [facility] 230 [place], [place] [phone] Breanna Zamudio ANP 230 [place], [place] [phone] Social History Tobacco Use Types Packs/Day Years [...] the past 12 months, has t he [employer]), gas, oil or water [employer] threatened to shut off services in your [...] Description 04/18/2025 2:15 PM EST Office Visit [facility] [address] [place] [address] Breanna Zamudio ANP 230 [place] [address] 04/26/2025 3:15 PM EST Clinical Support [facility] 505 [place] [address] Sis Coppola, AIDA 505 [place] [address] documented as of this encounter Visit Diagnoses Not on filedocumented in this encounter Care Teams Station Gateman Relationship Specialty Start Date End Date Breanna Zamudio ANP [address] [place] [address] PCP - General Family Medicine 10/03/19 Ludmila Walker MD [address] [place] [address] 3rd [place] [address] Gastroenterology 11/22/24 [facility] 07/31/23 documented as of this encounter
--- OUTSIDE RECORDS SUMMARY | 2025-03-07 13:43 | XMS_ITS | Encounter Summary ---
Author Organization [employer] Address [address] [facility] [address] [facility] [address] 7t [place] [address] Care Team Providers Care Blue Leather Setter Name Role Phone Breanna Zamudio Primary Care Provider [phone] Ludmlia Walker MD Unavailable [phone] Reason for Visit * Reason Comments Med Refill Encounter Details Date Type Department Care Team ([facility] st Contact Info) Description 08/24/2023 Refill [facility] 230 [place], [place] [phone] Breanna Zamudio ANP 230 [place], [place] [phone] Ischemic colitis ([facility]/HCC) Social History Tobacco Use Types Packs/Day Years [...] Description 04/18/2025 2:15 PM EST Office Visit [facility] [address] [place] [address] Breanna Zamudio ANP 230 [place] [address] 04/26/2025 3:15 PM EST Clinical Support [facility] 505 [place] [address] Sis Coppola, AIDA 505 [place] [address] documented as of this encounter Visit Diagnoses Diagnosis Ischemic colitis (CMS/HCC) documented in this encounter Care Teams Blue Leather Setter Relationship Specialty Start Date End Date Breanna Zamudio ANP [address] [place] [address] PCP - General Family Medicine 10/03/19 Ludmila Walker MD [address] [place] [address] Drive 3rd [place] [address] Gastroenterology 11/22/24 [facility] 07/31/23 documented as of this encounter
--- OUTSIDE RECORDS SUMMARY | 2025-03-07 13:43 | XMS_ITS | Encounter Summary ---
Author Organization [employer] Address [address] [facility] [facility] [address] 7t [place] [address] Care Team Providers Care Spanish Professor Name Role Phone Breanna Zamudio Primary Care Provider [phone] Ludmila Walker MD Unavailable Reason for Visit * Reason Onset Date Comments Med Refill 01/30/2025 Encounter Details Date Type Department Care Team ([facility] st Contact Info) Description 01/30/2025 Telephone [facility] 230 [place], [place] [phone] Breanna Zamudio ANP 230 [place], [place] [phone] Med Refill Social History Tobacco Use Types [...] immediate release tablet To be sent to: [facility] - [place], [place] - [address] [place] [address] documented in this encounter Plan of Treatment Upcoming Encounters Date Type Department Care Team ([facility] st Contact Info) Description 04/18/2025 2:15 PM EST Office Visit [facility] 230 [place] [address] Breanna Zamudio ANP 230 [place] [address] 04/26/2025 3:15 PM EST Clinical Support [facility] 505 [place] [address] Sis Coppola, AIDA 505 [place] [address] documented as of this encounter Goals Goal [...] documented as of this encounter Care Teams Spanish Professor Relationship Specialty Start Date End Date Breanna Zamudio ANP [address] [place] [address] PCP - General Family Medicine 10/03/19 Ludmila Walker MD [address] 3rd [place] [address] Gastroenterology 11/22/24 [facility] 07/31/23 documented as of this encounter
--- OUTSIDE RECORDS SUMMARY | 2025-03-07 13:43 | XMS_ITS | Encounter Summary ---
Author Organization [employer] Address [address] [facility] [address] 7t [place] [address] Care Team Providers Care Poultry Vaccinator Name Role Phone Breanna Zamudio Primary Care Provider [phone] Ludmila Walker MD Unavailable [phone] Reason for Visit * Reason Onset Date Comments Medication Question 02/02/2025 Encounter Details Date Type Department Care Team ([facility] st Contact Info) Description 02/02/2025 Telephone [facility] MED[facility]INE 230 [place], [place] [phone] Breanna Zamudio ANP 230 [place], [place] [phone] Medication Question Social History Tobacco Use Types [...] Description 04/18/2025 2:15 PM EST Office Visit [facility] 230 [place] [address] Breanna Zamudio ANP 230 [place] [address] 04/26/2025 3:15 PM EST Clinical Support [facility] 505 [place] [address] Sis Coppola, RN 505 [place] [address] documented as of this encounter Goals Goal [...] documented as of this encounter Care Teams Poultry Vaccinator Relationship Specialty Start Date End Date Breanna Zamudio ANP [address] [place] [address] PCP - General Family Medicine 10/03/19 Ludmila Walker MD [address] [place] [address] Drive 3rd [place] [address] Gastroenterology 11/22/24 [facility] 07/31/23 documented as of this encounter
--- OUTSIDE RECORDS SUMMARY | 2025-03-07 13:43 | XMS_ITS | Encounter Summary ---
Author Organization [employer] Address [address] 7t [place] [address] Care Team Providers Care Food Clerk Name Role Phone Breanna Zamudio Primary Care Provider [phone] Ludmila Walker MD Unavailable [phone] Reason for Visit * Reason Onset Date Comments Med Refill 11/18/2023 Encounter Details Date Type Department Care Team (Late st Contact Info) Description 11/18/2023 Telephone [facility] 230 [place], [place] [phone] Breanna Zamudio ANP 230 [place], [place] [phone] Med Refill Social History Tobacco Use Types [...] immediate release tablet To be sent to: [facility] - [place], [place] - [address] [place] [address] documented in this encounter Plan of Treatment Upcoming Encounters Date Type Department Care Team ([facility] st Contact Info) Description 04/18/2025 2:15 PM EST Office Visit [facility] 230 [place] [address] Breanna Zamudio ANP 230 [place] [address] 04/26/2025 3:15 PM EST Clinical Support [facility] 505 [place] [address] Ssi Coppola, AIDA 505 [place] [address] documented as of this encounter Visit Diagnoses Not on filedocumented in this encounter Care Teams Food Clerk Relationship Specialty Start Date End Date Breanna Zamudio ANP 230 [place] [address] PCP - General Family Medicine 10/03/19 Ludmila Walker MD [address] [place] [address] 3rd [place] [address] Gastroenterology 11/22/24 [facility] 07/31/23 documented as of this encounter
--- OUTSIDE RECORDS SUMMARY | 2025-03-07 13:43 | XMS_ITS | Encounter Summary ---
Author Organization [employer] Address [address] [facility] [address] 7t [place] [address] Care Team Providers Care Administrative Assistant Name Role Phone Breanna Zamudio Primary Care Provider [phone] Ludmila Walker MD Unavailable [phone] Reason for Visit * Reason Onset Date Comments Appointment Request 06/13/2024 Encounter Details Date Type Department Care Team ([facility] st Contact Info) Description 06/13/2024 Telephone [facility] 230 [place], [place] [phone] Breanna Zamudio ANP 230 [place], [place] [phone] Appointment Request Social History Tobacco Use Types [...] 2:32 PM EDT Tc from pt canceled SUB PLANT MANAGER appt due to being on vacation in [place] and would like to r/s after 07/08/24. documented in this encounter Plan of Treatment Upcoming Encounters Date Type Department Care Team (Late st Contact Info) Description 04/18/2025 2:15 PM EST Office Visit [facility] 230 [place] [address] Breanna Zamudio ANP 230 [place] [address] 04/26/2025 3:15 PM EST Clinical Support [facility] 505 [place] [address] Sis Coppola, AIDA 505 [place] [address] documented as of this encounter Visit Diagnoses Not on filedocumented in this encounter Care Teams Administrative Assistant Relationship Specialty Start Date End Date Breanna Zamudio ANP [address] [place] [address] PCP - General Family Medicine 10/03/19 Ludmila Walker MD [address] [place] [address] Drive 3rd Floor [place] [address] Gastroenterology 11/22/24 [facility] 07/31/23 documented as of this encounter
--- OUTSIDE RECORDS SUMMARY | 2025-03-07 13:43 | XMS_ITS | Encounter Summary ---
Author Organization [employer] Address [address] [facility] [facility] [address] 7t [place] [address] Care Team Providers Care Chha Name Role Phone Breanna Zamudio Primary Care Provider [phone] Ludmila Walker MD Unavailable [phone] Reason for Visit * Reason Onset Date Comments Prior Authorization 02/27/2025 Encounter Details Date Type Department Care Team ([facility] st Contact Info) Description 02/27/2025 Telephone [facility] 230 [place], [place] [phone] Breanna Zamudio ANP 230 [place], [place] [phone] Prior Authorization Social History Tobacco Use Types Packs/Day Years [...] the past 12 months, has t he [employer], gas, oil or water [employer] threatened to shut off services in your [...] encounter Miscellaneous Notes * Telephone Encounter - Marleen Pacheco - 03/03/2025 3:22 PM EST PA initiated on [employer]. Approval/denial pending. Zazueta: [id number] * Telephone Encounter - Dave Arita - 02/27/2025 12:01 PM EST Tc from pt states she needs PA for Lidocaine patches. If any questions contact pt at [phone]. (Chinese Speaker) documented in this encounter Plan of Treatment Upcoming Encounters Date Type Department Care Team (Late st Contact Info) Description 04/18/2025 2:15 PM EST Office Visit [facility] MED[facility]INE 230 [place] [address] Breanna Zamudio, ANP 230 [place] [address] 04/26/2025 3:15 PM EST Clinical Support [facility] 505 [place] [address] Sis Coppola RN 505 [place] [address] documented as of this encounter Goals Goal [...] Weekly blood pressure task No Zayra Thomas [place] Weekly blood pressure task Care Plan Weekly blood pressure task No Zayra Thomas [place] Patient has chronic kidney disease Care Plan [...] has chronic kidney disease No Dave Arita documented as of this encounter Visit Diagnoses [...] 02/27/2025 Patient has chronic kidney disease 02/27/2025 Assessment Noted Time PHQ-9 Depression Total Score: 7 02/14/20 25 1:01 PM EST documented as of this encounter Care Teams Chha Relationship Specialty Start Date End Date Breanna Zamudio ANP [address] [place] [address] PCP - General Family Medicine 10/03/19 Ludmila Walker MD [address] [place] [address] Drive 3rd [place] [address] Gastroenterology 11/22/24 [facility] 07/31/23 documented as of this encounter
--- OUTSIDE RECORDS SUMMARY | 2025-03-07 13:43 | XMS_ITS | Encounter Summary ---
Author Organization [employer] Address [address] [facility] [address] 7t [place] [address] Care Team Providers Care Nut Orchardist Name Role Phone Breanna Zamudio Primary Care Provider [phone] Ludmila Walker MD Unavailable [phone] Reason for Visit * Reason Onset Date Comments Appointment Request 02/03/2025 Encounter Details Date Type Department Care Team ([facility] st Contact Info) Description 02/03/2025 Telephone [facility] MED[facility]INE 230 [place], [place] [phone] Breanna Zamudio ANP 230 [place], [place] [phone] Appointment Request Social History Tobacco Use Types [...] call back to R/S appointment from 01/23 CLIENT ARCHITECT Televisit; [facility] pt. PCP Dr. Zamudio documented in this encounter Plan of Treatment Upcoming Encounters Date Type Department Care Team (Late st Contact Info) Description 04/18/2025 2:15 PM EST Office Visit [facility] 230 [place] [address] Breanna Zamudio ANP 230 [place] [address] 04/26/2025 3:15 PM EST Clinical Support [facility] 505 [place] [address] Sis Coppola, AIDA 505 [place] [address] documented as of this encounter Goals Goal [...] documented as of this encounter Care Teams Nut Orchardist Relationship Specialty Start Date End Date Breanna Zamudio ANP [address] [place] [address] PCP - General Family Medicine 10/03/19 Ludmila Walker MD [address] [place] [address] 3rd [place] [address] Gastroenterology 11/22/24 [facility] 07/31/23 documented as of this encounter
--- OUTSIDE RECORDS SUMMARY | 2025-03-07 13:43 | XMS_ITS | Encounter Summary ---
Author Organization [employer] Address [address] [facility] [address] 7t [place] [address] Care Team Providers Care Entry Level Automotive Technician Name Role Phone Breanna Zamudio Primary Care Provider [phone] Lumdila Walker MD Unavailable Reason for Visit * Reason Onset Date Comments Med Refill 03/15/2024 Encounter Details Date Type Department Care Team ([facility] st Contact Info) Description 03/15/2024 Telephone [facility] MEDICINE 230 [place], [place] [phone] Breanna Zamudio ANP 230 [place], [place] [phone] Med Refill Social History Tobacco Use Types [...] immediate release tablet To be sent to: [facility] documented in this encounter Plan of Treatment Upcoming Encounters Date Type Department Care Team ([facility] st Contact Info) Description 04/18/2025 2:15 PM EST Office Visit [facility] MEDICINE 230 [place] [address] Breanna Zamudio ANP 230 [place] [address] 04/26/2025 3:15 PM EST Clinical Support [facility] 505 [place] [address] Sis Coppola, AIDA 505 [place] [address] documented as of this encounter Visit Diagnoses Not on filedocumented in this encounter Care Teams Entry Level Automotive Technician Relationship Specialty Start Date End Date Breanna Zamudio ANP [address] [place] [address] PCP - General Family Medicine 10/03/19 Ludmila Walker MD [address] [place] [address] 3rd [place] [address] Gastroenterology 11/22/24 [facility] 07/31/23 documented as of this encounter
--- OUTSIDE RECORDS SUMMARY | 2025-03-07 13:43 | XMS_ITS | Encounter Summary ---
Author Organization [employer] Address [address] [facility] [address] 7t [place] [address] Care Team Providers Care Machine Egg Washer Name Role Phone Breanna Zamudio Primary Care Provider [phone] Ludmila Walker MD Unavailable [phone] Reason for Visit * Reason Onset Date Comments Medication Question 08/11/2024 Encounter Details Date Type Department Care Team ([facility] st Contact Info) Description 08/11/2024 Telephone [facility] MEDICINE 230 [place], [place] [phone] Breanna Zamudio ANP 230 [place], [place] [phone] Medication Question Social History Tobacco Use Types [...] month. States will be leaving out of [place] on Thursday and needs all her medications. Pt will be out for more than a month. Medication: OxyCODONE (Roxicodone) 10 MG immediate release tablet [phone] Patient [phone] Pt spouse documented in this encounter Plan of Treatment Upcoming Encounters Date Type Department Care Team (Late st Contact Info) Description 04/18/2025 2:15 PM EST Office Visit [facility] MED[facility]INE 230 [place] [address] Breanna Zamudio ANP 230 [place] [address] 04/26/2025 3:15 PM EST Clinical Support [facility] 505 [place] [address] Sis Coppola, RN 505 [place] [address] documented as of this encounter Visit Diagnoses Not on filedocumented in this encounter Care Teams Machine Egg Washer Relationship Specialty Start Date End Date Breanna Zamudio ANP [address] [place] [address] [place] [address] PCP - General Family Medicine 10/03/19 Ludmila Walker MD [address] [place] [address] 3rd [place] [address] Gastroenterology 11/22/24 [facility] 07/31/23 documented as of this encounter
--- OUTSIDE RECORDS SUMMARY | 2025-03-07 13:43 | XMS_ITS | Encounter Summary ---
Author Organization [employer] Address [address] [facility] [address] 7t [place] [address] Care Team Providers Care Commissioned Defence Force Officer Name Role Phone Breanna Zamudio Primary Care Provider [phone] Ludmila Walker MD Unavailable [phone] Reason for Visit * Reason Onset Date Comments Med Refill 02/22/2025 Encounter Details Date Type Department Care Team (Late st Contact Info) Description 02/22/2025 Telephone [facility] MEDICINE 230 [place], [place] [phone] Breanna Zamudio ANP 230 [place], [place] [phone] Med Refill Social History Tobacco Use Types [...] the past 12 months, has t he [employer], gas, oil or water company threatened to [...] * Telephone Encounter - Stanford Lau - 02/22/2025 3:16 PM EST TC from pt requesting medication refill. Medications needing refill : oxyCODONE (Roxicodone) 10 MG immediate release tablet To be sent to: [facility] - [place], [place] - [address] [place] [address] documented in this encounter Plan of Treatment Upcoming Encounters Date Type Department Care Team (Late st Contact Info) Description 04/18/2025 2:15 PM EST Office Visit [facility] MED[facility]INE 230 [place] [address] Breanna Zamudio ANP 230 [place] [address] 04/26/2025 3:15 PM EST Clinical Support [facility] 505 [place] [address] Sis Coppola RN [address] [place] [address] documented as of this encounter Goals Goal [...] Weekly blood pressure task No Zayra Thomas [place] Weekly blood pressure task Care Plan Weekly blood pressure task No Zayra Thomas [place] Patient has chronic kidney disease Care Plan Patient has chronic kidney disease No Zayra Thomas [place] Patient has chronic kidney disease Care Plan Patient has chronic kidney disease No Zayra Thomas [place] Weekly blood pressure task Care Plan Weekly blood pressure task No Zayra Thomas [place] Weekly blood pressure task Care Plan Weekly blood pressure task No Zayra Thomas [place] Patient has chronic kidney disease Care Plan Patient has chronic kidney disease No Zayra Thomas [place] Patient has chronic kidney disease Care Plan Patient has chronic kidney disease No Zayra Thomas [place] Weekly blood pressure task Care Plan Weekly [...] 02/22/2025 Patient has chronic kidney disease 02/22/2025 Assessment Noted Time PHQ-9 Depression Total Score: 7 02/14/20 1:01 PM EST documented as of this encounter Care Teams Commissioned Defence Force Officer Relationship Specialty Start Date End Date Breanna Zamudio ANP [address] [place] [address] PCP - General Family Medicine 10/03/19 Ludmila Walker MD [address] [place] [address] 3rd [place] [address] Gastroenterology 11/22/24 [facility] 07/31/23 documented as of this encounter
--- OUTSIDE RECORDS SUMMARY | 2025-03-07 13:43 | XMS_ITS | Encounter Summary ---
Author Organization [employer] Address [address] [facility] [address] 7t [place] [address] Care Team Providers Care Principal Developer Name Role Phone Breanna Zamudio Primary Care Provider [phone] Ludmila Walker MD Unavailable Reason for Visit * Reason Comments Med Refill Encounter Details Date Type Department Care Team ([facility] st Contact Info) Description 08/24/2023 Refill [facility] MEDICINE 230 [place], [place] [phone] Breanna Zamudio ANP 230 [place], [place] [phone] Ischemic colitis ([facility]/HCC) Social History Tobacco Use Types Packs/Day Years [...] EST Office Visit [facility] MED[facility]INE [address] [place] [address] Breanna Zamudio ANP 230 [place] [address] 04/26/2025 3:15 PM EST Clinical Support [facility] 505 [place] [address] Sis Coppola, AIDA 505 [place] [address] documented as of this encounter Visit Diagnoses Diagnosis Ischemic colitis (CMS/HCC) documented in this encounter Care Teams Principal Developer Relationship Specialty Start Date End Date Breanna Zamudio ANP [address] [place] [address] PCP - General Family Medicine 10/03/19 Ludmila Walker MD [address] [place] [address] Drive 3rd [place] [address] Gastroenterology 11/22/24 [facility] 07/31/23 documented as of this encounter
--- OUTSIDE RECORDS SUMMARY | 2025-03-07 13:43 | XMS_ITS | Encounter Summary ---
Author Organization [employer] Address [address] [facility] [address] 7t [place] [address] Care Team Providers Care Exercise Instruct Name Role Phone Breanna Zamudio Primary Care Provider [phone] Ludmila Walker MD Unavailable [phone] Reason for Visit * Reason Comments Med Refill Encounter Details Date Type Department Care Team (Late st Contact Info) Description 10/10/2024 Refill [facility] MED & PEDS [address] [place], [place] [phone] Breanna Zamudio ANP 230 [place] [address] Long-term current use of opiate analgesic; Osteoarthritis [...] Description 04/18/2025 2:15 PM EST Office Visit [facility] MEDICINE [address] [place] [address] Breanna Zamudio ANP [address] [place] [address] 04/26/2025 3:15 PM EST Clinical Support [facility] MED & PEDS 505 [place] [address] Sis Coppola, AIDA 505 [place] [address] documented as of this encounter Visit Diagnoses Diagnosis Long-term current use of opiate analgesic Encounter for long-term (current) use of other medications Osteoarthritis of multiple joints, unspecified osteoarthritis type Arthralgia, unspecified joint documented in this encounter Care Teams Exercise Instruct Relationship Specialty Start Date End Date Breanna Zamudio ANP [address] [place] [address] PCP - General Family Medicine 10/03/19 Ludmila Walker MD [address] 3rd [place] [address] Gastroenterology 11/22/24 [facility] 07/31/23 documented as of this encounter
--- OUTSIDE RECORDS SUMMARY | 2025-03-07 13:43 | XMS_ITS | Encounter Summary ---
Author Organization [employer] Address [address] [facility] [address] 7t [place] [address] Care Team Providers Care Physiotherapy Assistant Name Role Phone Breanna Zamudio Primary Care Provider [phone] Ludmila Walker MD Unavailable [phone] Reason for Visit * Reason Comments Med Refill Encounter Details Date Type Department Care Team (Late st Contact Info) Description 04/07/2022 Refill [facility] CHC MED & PEDS [address] [place], [place] [phone] Breanna Zamudio ANP 230 [place], [place] [phone] Pain in unspecified joint Social History Tobacco [...] Upcoming Encounters Date Type Department Care Team ([facility] Contact Info) Description 04/18/2025 2:15 PM EST Office Visit [facility] MEDICINE 230 [place] [address] Breanna Zamudio ANP 230 [place] [address] 04/26/2025 3:15 PM EST Clinical Support [facility] MED & PEDS 505 [place] [address] Sis Coppola, RN 505 [place] [address] documented as of this encounter Visit Diagnoses Diagnosis Pain in unspecified joint documented in this encounter Care Teams Physiotherapy Assistant Relationship Specialty Start Date End Date Breanna Zamudio ANP 230 [place] [address] PCP - General Family Medicine 10/03/19 Ludmila Walker MD [address] [place] [address] Drive 3rd [place] [address] Gastroenterology 11/22/24 [facility] 07/31/23 documented as of this encounter
--- OUTSIDE RECORDS SUMMARY | 2025-03-07 13:43 | XMS_ITS | Encounter Summary ---
Author Organization [employer] Address [address] [facility] [address] 7t [place] [address] Care Team Providers Care Road Contractor Name Role Phone Breanna Zamudio Primary Care Provider [phone] Ludmila Walker MD Unavailable [phone] Reason for Visit * Reason Onset [...] her to return my call at ext [phone]. Encounter Details Date Type Department Care Team (Late st Contact Info) Description 05/06/2024 Refill [facility] CHC MED & PEDS [address] [place], [place] [phone] Breanna Zamudio ANP 230 [place], [place] [phone] Ischemic colitis (CMS/HCC) Social History Tobacco Use [...] her to return my call at ext [phone]. * Telephone Encounter - Prisca Ramos MA [...] Description 04/18/2025 2:15 PM EST Office Visit [facility] MEDICINE 230 [place] [address] Breanna Zamudio ANP 230 [place] [address] 04/26/2025 3:15 PM EST Clinical Support [facility] CHC MED & PEDS 505 [place] [address] Sis Coppola, RN 505 [place] [address] documented as of this encounter Visit Diagnoses Diagnosis Ischemic colitis (CMS/HCC) documented in this encounter Care Teams Road Contractor Relationship Specialty Start Date End Date Breanna Zamudio ANP [address] [place] [address] PCP - General Family Medicine 10/03/19 Ludmila Walker MD [address] [place] [address] 3rd [place] [address] Gastroenterology 11/22/24 [facility] 07/31/23 documented as of this encounter
--- OUTSIDE RECORDS SUMMARY | 2025-03-07 13:43 | XMS_ITS | Encounter Summary ---
Author Organization [employer] Address [address] [facility] [address] 7t [place] [address] Care Team Providers Care Multiple Launch Rocket System Crewmember Name Role Phone Breanna Zamudio Primary Care Provider [phone] Ludmila Walker MD Unavailable [phone] Reason for Visit * Reason Onset Date Comments Appointment Request 02/28/2025 Encounter Details Date Type Department Care Team ([facility] st Contact Info) Description 02/28/2025 Telephone [facility] MEDICINE 230 [place], [place] [phone] Breanna Zamudio ANP 230 [place], [place] [phone] Appointment Request Social History Tobacco Use Types [...] t he electric, gas, oil or water [employer] threatened to shut off services in your [...] * Telephone Encounter - Yuri Flores - 02/28/2025 3:31 PM EST Tc from Jaime (spouse) calling back regarding prior message with an updated phone number. Contact spouse [phone] * Telephone Encounter - Dave Arita - 02/28/2025 10:37 AM EST Tc from pt requesting to change KAI WHAKARURUHAU appointment to a telephone visit if possible. Please contact pt at [phone]. (Swazi Speaker) documented in this encounter Plan of Treatment Upcoming Encounters Date Type Department Care Team (Late st Contact Info) Description 04/18/2025 2:15 PM EST Office Visit [facility] MEDICINE 230 [place] [address] Breanna Zamudio ANP 230 [place] [address] 04/26/2025 3:15 PM EST Clinical Support [facility] CHC MED & PEDS 505 [place] [address] Sis Coppola RN 505 [place] [address] documented as of this encounter Goals Goal [...] Weekly blood pressure task No Zayra Thomas MT Weekly blood pressure task Care Plan Weekly blood pressure task No Zayra Thomas MT Patient has chronic kidney disease Care Plan [...] 02/28/2025 Patient has chronic kidney disease 02/28/2025 Assessment Noted Time PHQ-9 Depression Total Score: 7 02/14/20 25 1:01 PM EST documented as of this encounter Care Teams Multiple Launch Rocket System Crewmember Relationship Specialty Start Date End Date Breanna Zamudio ANP [address] [place] [address] PCP - General Family Medicine 10/03/19 Ludmila Walker MD [address] [place] [address] Drive 3rd [place] [address] Gastroenterology 11/22/24 [facility] 07/31/23 documented as of this encounter
--- OUTSIDE RECORDS SUMMARY | 2025-03-07 13:43 | XMS_ITS | Encounter Summary ---
Author Organization [employer] Address [address] 7t [place] [address] Care Team Providers Care Film Or Tape Librarian Name Role Phone Breanna Zamudio Primary Care Provider [phone] Ludmila Walker MD Unavailable [phone] Reason for Visit * Reason Onset Date Comments FYI 08/31/2023 Encounter Details Date Type Department Care Team ([facility] st Contact Info) Description 08/31/2023 Telephone [facility] MEDICINE 230 [place], [place] [phone] Breanna Zamudio ANP 230 [place], [place] [phone] FYI Social History Tobacco Use Types Packs/Day [...] Tc from Caroline (Physical Therapist) with [facility] calling to inform pt is getting discharge as of today from PT services. Any questions [phone] documented in this encounter Plan of Treatment Upcoming Encounters Date Type Department Care Team (Late st Contact Info) Description 04/18/2025 2:15 PM EST Office Visit [facility] MEDICINE 230 [place] [address] Breanna Zamudio ANP 230 [place] [address] 04/26/2025 3:15 PM EST Clinical Support [facility] CHC MED & PEDS 505 [place] [address] Sis Coppola, AIDA 505 [place] [address] documented as of this encounter Visit Diagnoses Not on filedocumented in this encounter Care Teams Film Or Tape Librarian Relationship Specialty Start Date End Date Breanna Zamudio ANP [address] [place] [address] PCP - General Family Medicine 7/20/20 Ludmila Walker MD [address] [place] [address] Drive 3rd [place] [address] Gastroenterology 11/22/24 [facility] 07/31/23 documented as of this encounter
--- OUTSIDE RECORDS SUMMARY | 2025-03-07 13:43 | XMS_ITS | Encounter Summary ---
Author Organization [employer] Address [address] [facility] [address] 7t [place] [address] Care Team Providers Care Application Development Liaison Name Role Phone Breanna Zamudio Primary Care Provider [phone] Ludmila Walker MD Unavailable [phone] Reason for Visit * Reason Onset Date Comments Med Refill 01/21/2024 Encounter Details Date Type Department Care Team (Late st Contact Info) Description 01/21/2024 Telephone [facility] MEDICINE 230 [place], [place] [phone] Breanna Zamudio ANP 230 [place], [place] [phone] Med Refill Social History Tobacco Use Types [...] immediate release tablet To be sent to: [facility] - [place], [place] - [address] [place] [address] documented in this encounter Plan of Treatment Upcoming Encounters Date Type Department Care Team ([facility] st Contact Info) Description 04/18/2025 2:15 PM EST Office Visit [facility] MEDICINE 230 [place] [address] Breanna Zamudio ANP 230 [place] [address] 04/26/2025 3:15 PM EST Clinical Support [facility] CHC MED & PEDS 505 [place] [address] Sis Coppola, AIDA 505 [place] [address] documented as of this encounter Visit Diagnoses Not on filedocumented in this encounter Care Teams Application Development Liaison Relationship Specialty Start Date End Date Breanna Zamudio ANP 230 [place] [address] PCP - General Family Medicine 10/03/19 Ludmila Walker MD [address] [place] [address] 3rd [place] [address] Gastroenterology 11/22/24 [facility] 07/31/23 documented as of this encounter
--- OUTSIDE RECORDS SUMMARY | 2025-03-07 13:44 | XMS_ITS | Encounter Summary ---
Author Organization [employer] Address [address] [facility] [address] 7t [place] [address] Care Team Providers Care Adjunct Business Instructor Name Role Phone Robb Breanna SILVA Primary Care Provider [phone] Ludmila Walker MD Unavailable [phone] Encounter Details Date Type Department Care Team (Latest Contact Info) Description 03/02/2025 Travel Social History Tobacco Use Types Packs/Day [...] Description 04/18/2025 2:15 PM EST Office Visit [facility] MEDICINE 230 [place] [address] Breanna Zamudio, ANP 230 [place] [address] 04/26/2025 3:15 PM EST Clinical Support [facility] CHC MED & PEDS 505 [place] [address] Sis Coppola, RN 505 [place] [address] documented as of this encounter Goals Goal [...] Care Plan Weekly blood pressure task No aHwa Manzano LPN Weekly blood pressure task Care [...] documented as of this encounter Care Teams Adjunct Business Instructor Relationship Specialty Start Date End Date Breanna Zamudio ANP [address] [place] [address] PCP - General Family Medicine 10/03/19 Ludmila Walker MD [address] [place] [address] Drive 3rd [place] [address] Gastroenterology 11/22/24 [facility] 07/31/23 documented as of this encounter
--- OUTSIDE RECORDS SUMMARY | 2025-03-07 13:44 | XMS_ITS | Encounter Summary ---
Author Organization [employer] [facility] Address [address] [place] [address] 7t [place] [address] Care Team Providers Care Pbx Inspector Name Role Phone Breanna Zamudio Primary Care Provider [phone] Ludmila Walker MD Unavailable [phone] Reason for Visit * Reason Comments Med Refill Encounter Details Date Type Department Care Team (Late st Contact Info) Description 11/21/2022 Refill [facility] MEDICINE [address] [place] [address] Breanna Zamudio ANP 230 [place], [place] [phone] Pain in unspecified joint Social History Tobacco [...] Description 04/18/2025 2:15 PM EST Office Visit [facility] MEDICINE [address] [place] [address] [phone] Breanna Zamudio ANP 230 [place], [place] [phone] 04/26/2025 3:15 PM EST Clinical Support [facility] MED & PEDS [address] [place] [address] Sis Coppola, RN [address] [place] [address] documented as of this encounter Visit Diagnoses Diagnosis Pain in unspecified joint documented in this encounter Care Teams Pbx Inspector Relationship Specialty Start Date End Date Breanna Zamudio ANP [address] [place] [address] PCP - General Family Medicine 10/03/19 Ludmila Walker MD [address] [place] [address] 3rd [place] [address] Gastroenterology 11/22/24 [facility] 07/31/23 documented as of this encounter
--- OUTSIDE RECORDS SUMMARY | 2025-03-07 13:44 | XMS_ITS | Encounter Summary ---
Author Organization [employer] Address [address] [facility] [address] 7t [place] [address] Care Team Providers Care Integrated Logistics Support Manager Name Role Phone Breanna Zamudio Primary Care Provider [phone] Ludmila Walker MD Unavailable [phone] Reason for Visit * Reason Onset Date Comments Appointment Request 07/08/2024 Encounter Details Date Type Department Care Team ([facility] st Contact Info) Description 07/08/2024 Telephone [facility] MEDICINE 230 [place], [place] [phone] Breanna Zamudio ANP 230 [place], [place] [phone] Appointment Request Social History Tobacco Use Types [...] appt from 06/14/24. Pt is leaving to [place] on 07/09/24 at around 2 pm but pt was only given half of the pack for the Oxy and Spouse would like to see if anything can be done so that pt gets her full medication. Contact pt Spouse at [phone] documented in this encounter Plan of Treatment Upcoming Encounters Date Type Department Care Team (Late st Contact Info) Description 04/18/2025 2:15 PM EST Office Visit [facility] MEDICINE 230 [place] [address] Breanna Zamudio ANP 230 [place] [address] 04/26/2025 3:15 PM EST Clinical Support [facility] CHC MED & PEDS 505 [place] [address] Sis Coppola, RN 505 [place] [address] documented as of this encounter Visit Diagnoses Not on filedocumented in this encounter Care Teams Integrated Logistics Support Manager Relationship Specialty Start Date End Date Breanna Zamudio ANP [address] [place] [address] PCP - General Family Medicine 10/03/19 Ludmila Walker MD [address] [place] [address] 3rd [place] [address] Gastroenterology 11/22/24 [facility] 07/31/23 documented as of this encounter
--- OUTSIDE RECORDS SUMMARY | 2025-03-07 13:44 | XMS_ITS | Encounter Summary ---
Author Organization [employer] [facility] Address [address] [place] [address] 7t [place] [address] Care Team Providers Care Advertising Operations Coordinator Name Role Phone Breanna Zamudio Primary Care Provider [phone] Ludmila Walker MD Unavailable [phone] Reason for Visit * Reason Comments Med Refill Encounter Details Date Type Department Care Team (Late st Contact Info) Description 12/02/2022 Refill [facility] MEDICINE [address] [place] [address] Breanna Zamudio ANP 230 [place], [place] [phone] Pain in unspecified joint Social History Tobacco [...] Description 04/18/2025 2:15 PM EST Office Visit [facility] MEDICINE [address] [place] [address] [phone] Breanna Zamudio ANP 230 [place], [place] [phone] 04/26/2025 3:15 PM EST Clinical Support [facility] MED & PEDS [address] [place] [address] Sis Coppola, RN [address] [place] [address] documented as of this encounter Visit Diagnoses Diagnosis Pain in unspecified joint documented in this encounter Care Teams Advertising Operations Coordinator Relationship Specialty Start Date End Date Breanna Zamudio ANP [address] [place] [address] PCP - General Family Medicine 10/03/19 Ludmila Walker MD [address] [place] [address] 3rd [place] [address] Gastroenterology 11/22/24 [facility] 07/31/23 documented as of this encounter
--- OUTSIDE RECORDS SUMMARY | 2025-03-07 13:44 | XMS_ITS | Encounter Summary ---
Author Organization [employer] Address [address] [facility] [address] 7t [place] [address] Care Team Providers Care Mixer Attendant Name Role Phone Robb Breanna SILVA Primary Care Provider [phone] Ldumila Walker MD Unavailable [phone] Encounter Details Date Type Department Care Team (Late st Contact Info) Description 03/07/2025 Orders Only GENERIC EXTERNAL DATA DEPARTMENT Provider, [...] Description 04/18/2025 2:15 PM EST Office [address] [facility] MEDICINE 230 [place] [address] Breanna Zamudio ANP 230 [place] [address] 04/26/2025 3:15 PM EST Clinical Support [facility] CHC MED & PEDS 505 [place] [address] Sis Coppola, RN 505 [place] [address] documented as of this encounter Goals Goal [...] Plan Patient has chronic kidney disease No Breanan Zamudio ANP Patient has chronic kidney disease [...] Patient has chronic kidney disease No Breanna aZmudio ANP Patient has chronic kidney disease Care [...] Associated Diagnosis Comments GLUCOSE, WHOLE BLOOD Routine 03/07/2025 12:52 PM EST documented in this encounter Results * (ABNORMAL) Glucose, Whole Blood (03/07/2025 12:52 PM EST) Pathologist [facility] Glucose, Whole Blood 217(H) 60 - 115 mg/dL [facility] Comment:METER #: [id number] Testing performed in the Endocrinology Department [address] , [address], [facility]. 03/07/2025 12:5 2 PM EST 03/07/2025 12:57 PM EST us Generic External Data Provider LAB BLOOD ORDERAB LES Final Result [facility] [address] [place] [address] [phone] documented in this encounter Visit Diagnoses [...] documented as of this encounter Care Teams Mixer Attendant Relationship Specialty Start Date End Date Breanna Zamudio ANP [address] [place] [address] PCP - General Family Medicine 10/03/19 Ludmila Walker MD [address] [place] [address] 3rd [place] [address] Gastroenterology 11/22/24 [facility] 07/31/23 documented as of this encounter
--- OUTSIDE RECORDS SUMMARY | 2025-03-07 13:44 | XMS_ITS | Encounter Summary ---
Author Organization [employer] Address [address] [facility] [address] 7t [place] [address] Care Team Providers Care Cnc Operator Name Role Phone Breanna Zamudio Primary Care Provider [phone] Ludmila Walker MD Unavailable [phone] Reason for Visit * Reason Onset Date Comments Med Refill 02/27/2023 Encounter Details Date Type Department Care Team (Late st Contact Info) Description 02/27/2023 Telephone [facility] MEDICINE 230 [place], [place] [phone] Breanna Zamudio ANP 230 [place], [place] [phone] Med Refill Social History Tobacco Use Types [...] Description 04/18/2025 2:15 PM EST Office Visit [facility] MEDICINE 230 [place] [address] Breanna Zamudio ANP [address] [place] [address] 04/26/2025 3:15 PM EST Clinical Support [facility] CHC MED & PEDS 505 [place] [address] Sis Coppola, RN 505 [place] [address] documented as of this encounter Visit Diagnoses Not on filedocumented in this encounter Care Teams Cnc Operator Relationship Specialty Start Date End Date Breanna Zamudio ANP [address] [place] [address] PCP - General Family Medicine 10/03/19 Ludmila Walker MD [address] [place] [address] 3rd [place] [address] Gastroenterology 11/22/24 [facility] 07/31/23 documented as of this encounter
--- OUTSIDE RECORDS SUMMARY | 2025-03-07 13:44 | XMS_ITS | Encounter Summary ---
Author Organization [employer] Address [address] [facility] 7t [place] [address] Care Team Providers Care Drive In Theater Attendant Name Role Phone Breanna Zamudio Primary Care Provider [phone] Ludmila Walker MD Unavailable [phone] Reason for Visit * Reason Onset Date Comments Durable Medical Equipment 09/08/2022 Encounter Details Date Type Department Care Team (Late st Contact Info) Description 09/08/2022 Telephone [facility]ICINE 230 [place] [address] Breanna Zamudio ANP 230 [place] [address] Durable Medical Equipment Social History Tobacco Use [...] machines, please see notes,. Please contact at [phone] Green[place]ic * Telephone Encounter - RICARDO Caraballo - 09/19/2022 6:26 PM EDT Yes, of course. Thank you. Will place signed RX on your desk. * Telephone Encounter - Madhuri Doe - 09/18/2022 1:56 PM EDT Tc from [facility] with [facility] requesting status on nebulizer. States if script has not been sent to [place], fax to [facility]. FAX: [phone] Please contact [facility] at [phone] ext [phone] * Telephone Encounter - Rosalinda Rucker - 09/08/2022 3:29 PM EDT Tc from patient requesting a new script for a nebulizer machine. States current one broke. documented in this encounter Plan of Treatment Upcoming Encounters Date Type Department Care Team (Late st Contact Info) Description 04/18/2025 2:15 PM EST Office Visit [facility] 230 [place] [address] Breanna Zamudio ANP 230 [place] [address] 04/26/2025 3:15 PM EST Clinical Support [facility] MED [facility]EDS 505 [place] [address] Sis Coppola, AIDA 505 [place] [address] documented as of this encounter Visit Diagnoses Not on filedocumented in this encounter Care Teams Drive In Theater Attendant Relationship Specialty Start Date End Date Breanna Zamudio ANP 230 [place] [address] PCP - General Family Medicine 10/03/19 Ludmila Walker MD [address] 3rd [place] [address] Gastroenterology 11/22/24 [facility] 07/31/23 documented as of this encounter
--- OUTSIDE RECORDS SUMMARY | 2025-03-07 13:44 | XMS_ITS | Clinical Summary ---
Author Organization [employer] Address 75 [facility] 7t [place] [address] Care Team Providers Care Plumbing Hardware Assembler Name Role Phone Robb [place] SILVA Primary Care Provider [phone] Ludmila Walker MD Unavailable [phone] Allergies No known active allergies Medications [...] 34 UNITS SUBCUTANEOUSLY EVERY EVENING Active Lancets (Transcarga.peTouch Delica Plus [id number]) misc TEST BLOOD SUGAR TWICE DAILY Active [...] ONCE A WEEK 024 Active Continuous Glucose Detective Chief (FreeStyle Manuelito 2 [place]) device Use as directed 024 Active Continuous [...] BY MOUTH EVERY MORNING 90 tablet 3 02/29/20 25 12:26 PM EST 025 Active cloNIDine (Catapres) 0.1 MG tabletIndication [...] meal, and at bedtime. 120 tablet 2 02/29/20 25 12:26 PM EST 025 Active venlafaxine XR (Effexor XR) 75 [...] IF PATIENT RESPONDS. 2 each 1 Active venlafaxine XR (Effexor XR) 150 MG 24 hr capsuleIndicatio ns:Mixed anxiety and depressive disorder TAKE 1 CAPSULE BY MOUTH DAILY WITH 75 MG CAPSULE. DO NOT BREAK, CRUSH, DISSOLVE OR CHEW 90 capsule 1 02/16/20 25 5:06 PM EST 025 Active furosemide (Lasix) 20 MG tabletIndication s:Essential [...] in water once daily 283 g 11 025 Active oxyCODONE (Roxicodone) 10 MG immediate release tabletIndication s:Long-term current use of opiate analgesic,Osteoa rthritis of multiple joints, unspecified osteoarthritis type,Arthralgia, unspecified joint Take 1 tablet (10 mg) by mouth every 6 (six) hours if needed for severe pain for up to 21 days. Do not start before March 01, 2025. 84 tablet 025 2025 Active venlafaxine XR (Effexor XR) 150 MG [...] See Colonoscopy bx report 11/16/24 Dr. Walker, [facility] Tumor site: Gastric body Tumor size: [...] edema. I d/w patient that this [place] [facility] issue to fu with PCP, encouraged tight [...] AM EST): Rx Paxlovid x 5 days, [place] interactions module checked, she will hold Crestor [...] Encounters Date Type Department Care Team Description 03/07/2025 Orders Only GENERIC EXTERNAL DATA DEPARTMENT Provider, Generic External Data 03/02/2025 1:00 PM EST Telemedicine [facility] [address] [place] [address] Sis Coppola, coremaker floor midline thoracic back pain 03/02/2025 Travel 02/28/2025 Telephone [facility] [address] [facility] [place] [address] Sis Coppola RN 02/28/[address] [address] [place] Cifuentes ANP Appointment Request 02/27/[address] [address] [place] Cifuentes ANP Prior Authorization 02/22/2025 Refill [facility] [address] [place] [address] Sis Coppola RN Long-term current use of opiate analgesic; Osteoarthritis of multiple joints, unspecified osteoarthritis type; Arthralgia, unspecified joint 02/22/[address] [address] [place] Cifuentes ANP Med Refill 02/16/2025 Results Follow-Up [address] [address] [place] Cifuentes ANP Albumin, Random Urine W/Creatinine 02/13/2025 1:15 PM EST Office Visit [address] [address] [place] Cifuentes ANP Hyperlipidemia associated with type [...] syndrome with diarrhea 02/13/2025 Travel 02/08/[address] [address] [place] Cifuentes ANP chartprep 02/07/2025 Orders Only [facility] [address] [place] [address] [place] Cifuentes ANP Long-term current use of opiate analgesic; Osteoarthritis of multiple joints, unspecified osteoarthritis type; Arthralgia, unspecified joint 02/03/2025 Refill [facility] [address] [place] [address] Sis Coppola, AIDA Long-term current use of opiate analgesic; Osteoarthritis of multiple joints, unspecified osteoarthritis type; Arthralgia, unspecified joint 02/03/2025 Telephone [facility] [address] [place] [address] Sis Coppola, AIDA 02/03/2025 Telephone [facility] [address] [place] [address] [place] Cifuentes ANP Appointment Request 02/02/2025 Telephone [facility] [address] [place] [address] [place] Cifuentes ANP Medication Question 01/31/2025 Orders Only GENERIC EXTERNAL DATA DEPARTMENT Provider, Generic External Data 01/30/2025 Refill [facility] [address] [place] [address] Sis Coppola, AIDA Long-term current use of opiate analgesic; Osteoarthritis of multiple joints, unspecified osteoarthritis type; Arthralgia, unspecified joint 01/30/2025 Telephone [facility] [address] [place] [address] [place] Cifuentes ANP Med Refill 01/26/2025 Refill [facility] [address] [place] [address] Marce Gross MD 01/23/2025 Telephone [facility] [address] [place] [address] Sis Coppola, AIDA 01/23/2025 Travel 01/11/2025 Refill [facility] [address] [place] [address] [place] Cifuentes ANP Mixed anxiety and depressive disorder 01/05/2025 Telephone [facility] [address] [place] [address] [place] [address] Albania Cifuentes ANP fyi 01/02/2025 Refill [facility] [address] [place] [address] Sis Coppola RN Long-term current use of opiate analgesic; Osteoarthritis of multiple joints, unspecified osteoarthritis type; Arthralgia, unspecified joint 01/02/2025 Telephone [facility] [address] [place] [address] Albania Cifuentes ANP Med Refill 12/21/2024 Travel 12/19/2024 1:00 PM EDT Office Visit [facility] [address] [place] [address] [place] Cifuentes ANP Gastroesophageal reflux disease without esophagitis (Primary Dx); Hyperlipidemia associated with type 2 diabetes mellitus (HCC); Hiatal hernia; Encounter for immunization; Essential hypertension; Dyslipidemia; Hypertension associated with diabetes (HCC); Proteinuria, unspecified type; Diabetic nephropathy associated with type 2 diabetes mellitus (HCC); 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) 12/19/2024 Travel 12/16/2024 Telephone [facility] [address] [place] [address] Celine Woodward PA 12/16/2024 Telephone [facility] [address] [place] [address] [place] Cifuentes ANP chartprep 12/13/2024 Orders Only [facility] External Provider, [facility] from Last 3 Months Immunizations Immunization Administration [...] 2:15 PM EST Office Visit [facility] [address] [place] [address] [place] Cifuentes, ANP [address] [place] [address] 04/26/2025 3:15 PM EST Clinical Support [facility] [address] [place] [address] Sis Coppola, RN [address] [place] [address] Health Maintenance Due Date Last Done Comments [...] 09/13 Lipid Panel 08/16/2023 08/15/2022, 0604/2022, 10/04/2019 SDOH Screening 03/26/2024 03/26/2023 COVID-19 Vaccine [...] Care Plan Weekly blood pressure task No iSs Coppola RN Weekly blood pressure task Care [...] WHOLE BLOOD Routine 03/07/2025 12:52 PM EST ALBUMIN, RANDOM URINE W/CREATININE Routine 02/13/2025 12:00 AM EST Hyperlipidemia associated with type 2 diabetes mellitus (HCC) GLUCOSE, WHOLE BLOOD Routine 01/31/2025 1:04 PM EST POCT GLYCATED HEMOGLOBIN, TOTAL Routine 12/19/2024 1:09 PM EDT Hyperlipidemia associated with type 2 diabetes mellitus (HCC) POCT GLUCOSE (CPT-20513) Routine 12/19/2024 1:08 PM EDT Hyperlipidemia associated with type 2 diabetes mellitus (HCC) CT ABDOMEN PELVIS W CONTRAST Routine 12/13/2024 1:52 PM EDT HEPATITIS PANEL, GENERAL Routine 09/06/2024 12:36 PM EDT BI MAMMOGRAM SCREENING TOMOSYNTHESIS BILATERAL Routine 07/07/2024 12:21 PM EDT HM COLONOSCOPY Routine 12/23/2022 DIRECT LDL Routine 08/15/2022 12:35 PM EDT from Last 3 Months or Most Recently Relevant to Health Maintenance Results * (ABNORMAL) Glucose, Whole Blood (03/07/2025 12:52 PM EST) Only the most recent of2 resultswithin the time period is included. Glucose, Whole Blood 217(H) 60 - 115 mg/dL [facility] Comment:METER #: [id number] Testing performed in the Endocrinology Department [address] , [address], [facility]. 03/07/2025 12:5 2 PM EST 03/07/2025 12:57 PM EST us Generic External Data Provider LAB BLOOD ORDERAB LES Final Result [facility] [address] [place] [address] [phone] * (ABNORMAL) Albumin, Random Urine W/Creatinine (02/13/2025 12:00 AM EST) Creatinine, Urine 77.63 mg/dL [facility] Microalbumin Urine 61.0 mg/L H [facility] Microalbum Creatinine Ratio Ur 78.5(H) <30 ug/mg cr [facility] Comment:Albumin/Creatinine R atio Reference Ranges: Normal: < 30 ug/mg creatinine Microalbuminuria: 30 - 300 ug/mg creatinineClinical Albuminuria: > 300 ug/mg creatinine Urine (Urine, Random) 02/13/2025 02/13/2025 us [place] SILVA LAB URINE ORDERABLES Final Resul t [facility] [address] [place] [phone] * (ABNORMAL) POCT Hgb A1c (12/19/2024 [...] Media Lot # [id number] Lot# Expiration Date [id number] Blood Capillary blood specimen / Unknown 12/19/2024 1:08 PM EDT us [place] Cifuentes ANP POINT OF CARE TEST ENTER/EDIT OR DERABLES Final Result * CT Abdomen Pelvis w/ Contrast (12/13/2024 1:52 PM EDT) Anatomical Region Laterality Modality Body, Pelvis, Abdomen Computed T omography 12/13/2024 1:52 PM EDT Narrative 12/13/2024 2:37 PM EDT [address] [address] [address] Scan Report Signed Patient: Lois Dalton MR#: [id number] 1 : 1955 Acct:[id number] Age/Sex: 69 / F ADM Date: 12/13/24 Loc: HO.CT Attending Dr: Lucia Whitney NP Ordering Physician: Lucia Whitney NP Date of Service: 12/13/24 Procedure(s): CT abdomen pelvis w IV con Accession Number(s): [id number] cc: Whitney Correa MD; [place] CIFUENTES NP; Lucia Whitney NP Report Number: [id number]: Total DLP = 645.00 mGy-cm Reason for [...] 12/13/24 1434 DD/ 1352 TD/TT: 12/13/24 1428 Can Handler: Procedure Note Donotuseinterpreter, Image - 12/13/[address] [place] [address] [address] Scan Report Signed Patient: Arnav Dalton#: [id number] 1 : 5Acct:[id number] Age/Sex: 69 / FADM Date: 12/13/24 Loc: HO.CT Attending Dr: Lucia Whitney NP Ordering Physician: Lucia Whitney NP Date of Service: 12/13/24 Procedure(s): CT abdomen pelvis w IV con Accession Number(s): [id number] cc: Whitney Correa MD; [place] CIFUENTES PRODUCT SAFETY TEST ENGINEER; Lucia Whitney NP Report Number: [id number]: Total DLP = 645.00 mGy-cm Reason for [...] 12/13/24 1434 DD/ 1352 TD/TT: 12/13/24 1428 Can Handler: [facility] External Provider IMG CT PROCEDURES Final Result * Hepatitis Panel, General (09/06/2024 12:36 PM EDT) Hepatitis A IgM Nonreactive Nonreactive [facility] Comment:IgM antibodies to MARTINEZ V not detected; does not exclude earlyacute or recovered HAV infection. ~Hepatitis B Surface Antibody NONREACTIVE Nonreactive [facility] Comment:Nonreactive: < 8.00 mIU/mL Hepatitis B Core Antibody Nonreactive Nonreactive [facility] Hepatitis C Antibody Nonreactive Nonreactive [facility] Comment:Antibodies to HCV no t detected; does not exclude early acuteHCV infection. Hepatitis B Surface Ag Negative Negative [facility] 09/06/2024 12:3 6 PM EDT 09/06/2024 12:36 PM EDT Generic External Data Provider LAB BLOOD ORDERAB LES Final Result [facility] [address] [place] [phone] * BI Mammogram Screening Tomosynthesis Bilateral (07/07/2024 12:21 PM EDT) Anatomical Region Laterality Modality Breast Bilateral Mammography 07/07/2024 12:2 1 PM EDT Narrative 07/15/2024 4:34 PM EDT [facility] [address] [place] [address] Mammography Report Signed Patient: Lois Dalton MR#: [id number] 1 : 1955 Acct:[id number] Age/Sex: 69 / F ADM Date: 07/07/24 Loc: ARI Attending Dr: [place] Cifuentes NP Ordering Physician: [place] CIFUENTES NP Results: 1Negative Date of Service: 07/07/24 Follow Up: 1 Year From Orig inal Mammogram Procedure(s): MM tomosynthesis screening BI Accession Number(s): [id number] cc: [place] CIFUENTES NP EXAMINATION: MM SCREENING [...] 07/15/24 1631 DD/ 1221 TD/TT: 07/07/24 1246 Can Handler: Procedure Note Donotuseinterpreter, Image - 07/15/2024 [facility] [address] [place] [address] Mammography Report Signed Patient: Arnav Dalton#: [id number] 1 : 5Acct:[id number] Age/Sex: 69 / FADM Date: 07/07/24 Loc: HO.MAMMO Attending Dr: [place] Cifuentes NP Ordering Physician: [place] CIFUENTES NPResults: 1Negative Date of Service: 07/07/24Follow Up: 1 Year From Orig inal Mammogram Procedure(s): MM tomosynthesis screening BI Accession Number(s): [id number] cc: [place] CIFUENTES NP EXAMINATION: MM SCREENING [...] 07/15/24 1631 DD/ 1221 TD/TT: 07/07/24 1246 Can Handler: us [place] SILVA IMG BI PROCEDURES Final Result * (ABNORMAL) Hm Colonoscopy (12/23/2022) Colonoscopy Abnormal( A) Normal [facility] Comment:tubular adenoma 12/23/2022 us Yuni Jeffery MD HEALTH MAINTENANCE Final Result [facility] [address] [place] [phone] * Direct LDL (08/15/2022 12:35 PM EDT) LDL Direct 70 <100 mg/dL [facility] Comment:Greatly elevated Tri glycerides values (>1200 mg/dL)interfere with the dLDL assay. As no Triglyceridestesting was ordered, interpret results with caution.Desirable range <100 mg/dL for primary prevention;<70 mg/dL for patients with CHD or diabetic patientswith > or = 2 CHD risk factors.THIS TEST WAS PERFORMED AT:[address] [place] [id number] JAIME MD 08/15/2022 12:3 5 PM EDT 08/15/2022 12:36 PM EDT [facility] External Provider LAB BLO OD ORDERABLES Final Result [facility] [address] [place] [address] [phone] from Last 3 Months or Most [...] 03/02/2025 Patient has chronic kidney disease 03/02/2025 Insurance [employer] (HMO D-SNP) [place] [id number] Care Teams Plumbing Hardware Assembler Relationship Specialty Start Date End Date [place] Cifuentes ANP [address] [place] [address] [place] [address] PCP - General Family Medicine 10/03/19 Ludmila Walker MD [address] [place] [address] [address] [place] [address] Gastroenterology 11/22/24 [facility] 07/31/23
--- OUTSIDE RECORDS SUMMARY | 2025-03-07 13:44 | XMS_ITS | Encounter Summary ---
Author Organization [employer] Address 75 [facility] 7t [place] [address] Care Team Providers Care Metallurgical Analyst Name Role Phone Breanna Zamudio Primary Care Provider [phone] Ludmila Walker MD Unavailable [phone] Encounter Details Date Type Department Care Team (Late st Contact Info) Description 03/19/2022 Orders Only [facility] [address] [place], [place] [phone] Breanna Zamudio ANP [address] [place] [address] Moderate persistent asthma without complication (Primary Dx) [...] Description 04/18/2025 2:15 PM EST Office Visit [facility] [address] [place], [place] [phone] Breanna Zamudio ANP [address] [place], [place] [phone] 04/26/2025 3:15 PM EST Clinical Support [facility] [address] [place], [place] [phone] Sis Coppola, RN [address] [place] [address] documented as of this encounter Visit Diagnoses Diagnosis Moderate persistent asthma without complication- Primary documented in this encounter Care Teams Metallurgical Analyst Relationship Specialty Start Date End Date Breanna Zamudio ANP [address] [place] [address] PCP - General Family Medicine 10/03/19 Ludmila Walker MD [address] [place] [address] 3rd [place] [address] Gastroenterology 11/22/24 [facility] 07/31/23 documented as of this encounter
== END 2025-03-07 13:13 | disposition home or self-care (01) ==
LOC: HO.ENCR 12:40
PROVIDERS: PCP Nurse Practitioner Primary Care; Visit Provider Physician Assistant Medical
DX: E11.42 Type 2 diabetes mellitus with diabetic polyneuropathy (principal); Z79.4 Long term (current) use of insulin; I10 Essential (primary) hypertension; E78.5 Hyperlipidemia, unspecified

== ENCOUNTER → 2025-03-07 12:39 | Outpatient (BNVA) | payer OTHER, SELFPAY | PROVIDERS: PCP Nurse Practitioner Primary Care; Visit Provider Physician Assistant Medical | DX: E11.42 Type 2 diabetes mellitus with diabetic polyneuropathy (principal); I10 Essential (primary) hypertension; E78.5 Hyperlipidemia, unspecified; Z79.899 Other long term (current) drug therapy; Z79.4 Long term (current) use of insulin; Z79.84 Long term (current) use of oral hypoglycemic drugs; Z79.85 Long-term (current) use of injectable non-insulin antidiabetic drugs | CPT/HCPCS: 82947; 99212 ==

== ENCOUNTER 2025-03-13 09:47 | Outpatient (REF) | payer OTHER, SELFPAY ==
--- NOTE | ~2025-03-13 | MR_ITS ---
EXAMINATION: MRCP HISTORY: R10.11 - Right upper quadrant pain TECHNIQUE: Localizer images were obtained. Subsequently, the patient became claustrophobic and the study was terminated. FINDINGS: There is a probable cyst at the lower pole of the left kidney as noted on CT 12/13/2024. MR/MR MRCP IMPRESSION: Nondiagnostic examination. The patient became claustrophobic and the study was terminated. Electronically signed by: Cj Gomez MD 03/13/2025 10:19 AM [facility]
--- OUTSIDE RECORDS SUMMARY | 2025-03-13 10:29 | XMS_ITS | Encounter Summary ---
Author Organization [employer] Address [address] [facility] [address] 7t [place] [address] Care Team Providers Care Fireworks Display Specialist Name Role Phone Breanna Zamudio Primary Care Provider [phone] Ludmila Walker MD Unavailable [phone] Reason for Visit * Reason Onset Date Comments Med Refill 03/15/2024 Encounter Details Date Type Department Care Team ([facility] st Contact Info) Description 03/15/2024 Telephone [facility] [address] [place], [place] [phone] Breanna Zamudio ANP [address] [place], [place] [phone] Med Refill Social History Tobacco Use Types [...] immediate release tablet To be sent to: [facility] documented in this encounter Plan of Treatment Upcoming Encounters Date Type Department Care Team ([facility] st Contact Info) Description 04/18/2025 2:15 PM EST Office Visit [facility] [address] [place] [address] Breanna Zamudio ANP [address] [place] [address] 04/26/2025 3:15 PM EST Clinical Support [facility] [address] [place] [address] Sis Coppola, AIDA [address] [place] [address] documented as of this encounter Visit Diagnoses Not on filedocumented in this encounter Care Teams Fireworks Display Specialist Relationship Specialty Start Date End Date Breanna Zamudio ANP [address] [place] [address] PCP - General Family Medicine 10/03/19 Ludmila Walker MD [address] [place] [address] 3rd [place] [address] Gastroenterology 11/22/24 [facility] 07/31/23 documented as of this encounter
--- OUTSIDE RECORDS SUMMARY | 2025-03-13 10:30 | XMS_ITS ---
Author Organization [facility] Care Team Providers Care Director Informatics Name Role Phone Mychal Parsons Unavailable Unavailable Yenni Golden Unavailable Isael Diggs Unavailable Unavailable Allergies and adverse reactions Code CodeSystem Substance Reaction Severity StartDate Concern Status 121618850013867 SNOMED CT Tree Nuts Moderate 07/20/2023 active Care Team Name Role Address Phone Organization Dates Isael Diggs PCP [address] [facility] [address], [place], [address], [place] (Office[place] : [facility] 07/20/2023 - 07/22/2023 Mychal Parsons [address] [place] [address], [address], [place], [address], [place] (Office): : [facility] 07/20/2023 - 07/22/2023 Yenni Golden [address] [facility] [address], [place], [address], [facility] 07/20/2023 - 07/22/2023 Goals Section Goals Description Status Target Date I will be able to communicat e adequately with my care team and to have my needs met through review date. Active 10/13/2023 I will be at reduced risk fo r complications of self care performance deficit and impaired mobility daily through the review date. Active 10/13/2023 I will be at reduced risk fo r skin breakdown daily through the review date. Active 10/13/2023 I will be free from discomfo rt and adverse effects of pain medication through the review date. Active 10/13/2023 I will be free of fall relat ed injury through the next review date. Active 10/13/2023 I will verbalize adequate re lief of pain or ability to cope with incompletely relieved pain through the review date. Active Mental Status Section Date Assessment Total Score Description 07/21/2023 CAM 0 No delirium ind icated Insurance Providers Coverage Status Coverage Type Relationship to Subscriber Member Identifier Subscriber Identifier Group Identifier Payer Identifier and Other information Code: 51 Code System OID:[id number] .[id number]. 5 Code System Name: Source of Payment Typology (PHDSC) Display: Managed Care (Private) Translation: Code: Code System: OID:2.16.840.1 .[id number]. 1336 Code System Name: Insurance Type Code ([id number]) Display Name: Health Maintenance Organization (HMO) Plan Plan of Treatment Section Interventions Intervention Code Code System Display Name Proposed D ate Problems Problem # Description Date of onset Resolved Date Code CodeSystem Concern Status 1 AFTERCARE FOLLOWING JOINT REPLACEMENT SURGERY 07/20/[id number] active 2 PRESENCE OF RIGHT ARTIFICIAL KNEE JOINT 07/20/[address] active Reason for Referral No Reasons for Referral Entered Social History Social History Observation Description Start Date End Date Code Code System Current Smoking Status Tobacco smoking consumption unknown 467507729 SNOMED CT Sex Assigned At Female 1955 [address]-[facility] Gender Identity Sexual Orientation Vital Signs Code Code System Vitals Name Values and Units Timing Information 50251-6 LOINC Pain Level Value=9.0 07/21/2023 8302-2 LOINC Height Xgfnd=518.1 Units=Inches 07/20/2023 38043-9 LOINC Weight Nxivf=164.2 Units=Lbs 08/2023 9279-1 LOINC Respiratory Rate Value=18.0 Units=/m in 07/20/2023 8462-4 LOINC Blood Pressure-Diastolic Value=62 Un its=mmHg 07/20/2023 8480-6 [facility] Blood Pressure-Systolic Mgykx=368 Un its=mmHg 07/20/2023 8310-5 [facility] Body Temperature Value=97.9 Units= F 07/20/2023 8867-4 [facility] Heart rate Value=56.0 Units=/min 08/2023 19534-1 [facility] O2 % BldC Oximetry Value=95.0 Units= % 07/20/2023
--- OUTSIDE RECORDS SUMMARY | 2025-03-13 10:30 | XMS_ITS | Encounter Summary ---
Author Organization [employer] Address [address] [facility] 7t [place] [address] Care Team Providers Care Ship Mate Name Role Phone Breanna Zamudio Primary Care Provider [phone] Ludmila Walker MD Unavailable [phone] Encounter Details Date Type Department Care Team (Late st Contact Info) Description 03/19/2022 Orders Only [facility] [address] [place], [place] [phone] Breanna Zamudio ANP [address] [place] [address] Moderate persistent asthma without complication (Primary Dx) [...] Office Visit [facility] [address] [place], [place] [phone] Breanna Zamudio ANP [address] [place], [place] [phone] 04/26/2025 3:15 PM EST Clinical Support [facility] [address] [place], [place] [phone] Sis Coppola, RN [address] [place] [address] documented as of this encounter Visit Diagnoses Diagnosis Moderate persistent asthma without complication- Primary documented in this encounter Care Teams Ship Mate Relationship Specialty Start Date End Date Breanna Zamudio ANP [address] [place] [address] PCP - General Family Medicine 10/03/19 Ludmila Walker MD [address] [place] [address] 3rd [place] [address] Gastroenterology 11/22/24 [facility] 07/31/23 documented as of this encounter
--- OUTSIDE RECORDS SUMMARY | 2025-03-13 10:30 | XMS_ITS ---
Author Organization Calros Izquierdo at [facility] Care Team Providers Care Tank Truck Mechanic Name Role Phone Ciara Reeves Unavailable Unavailable Long Tsang Unavailable Unavailable Myriam Cid Unavailable Unavailable Allergies and adverse reactions No Known Allergies Care Team Name Role Address Phone Organization Dates Long Tsang PCP [address] [place] [address], [address], [facility] (Office): : Carlos Izquierdo at [place] 07/23/2023 - 07/29/2023 Ciara Reeves [facility] Julia [facility] [place] 07/23/2023 - 07/29/[address] [facility] [place] 07/23/2023 - 07/29/2023 Mental Status Section Date Assessment Total Score Description 07/29/2023 BIMS 12 moderate cognit linda impairment CAM 0 No delirium ind icated PHQ-9 00 07/29/2023 BIMS 12 moderate cognit linda impairment CAM 0 No delirium ind icated PHQ-9 00 Insurance Providers Coverage Status Coverage Type Relationship to Subscriber Member Identifier Subscriber Identifier Group Identifier Payer Identifier and Other information 07/23/2023 Code: 51 Code System OID:2.16.840.1 .122888.3.221. 5 Code System Name: Source of Payment Typology ([facility]) Display: Managed Care (Private) Translation: Code: HM Code System: OID:2.16.840.1 .753972.6.255. 1336 Code System Name: Insurance Type Code ([id number]) Display Name: Health Maintenance Organization (HMO) Plan Code: SELF Code System Name: HL7 RoleCode Code System OID:2.16.840.1 .191791.5.111 Display Name: Self [id number] Root: [id number] Payer Name: [facility] Address: [address] [facility] City: [facility]: [place] Country: [facility] Code: 81 Code System OID:2.16.840.1 .648435.3.221. 5 Code System Name: Source of Payment Typology (PHDSC) Display: Self Pay Translation: Code: Code System: OID:2.16.840.1 .162423.6.255. 1336 Code System Name: Insurance Type Code ([id number]) Display Name: Self-pay 07/23/2023 Code: 51 Code System OID:2.16.840.1 .180390.3.221. 5 Code System Name: Source of Payment Typology (PHDSC) Display: Managed Care (Private) Translation: Code: Code System: OID:2.16.840.1 .491930.6.255. 1336 Code System Name: Insurance Type Code ([id number]) Display Name: Health Maintenance Organization (HMO) Plan Code: SELF Code System Name: HL7 RoleCode Code System OID:2.16.840.1 .496294.5.111 Display Name: Self [id number] Root: [id number] Payer Name: [facility] Address: [address] [facility] City: [facility]: [place] Country: [facility] 07/23/2023 Code: 2 Code System OID:2.16.840.1 .472283.3.221. 5 Code System Name: Source of Payment Typology (PHDSC) Display: Medicaid Translation: Code: 48 Code System: OID:2.16.840.1 .276508.6.255. 1336 Code System Name: Insurance Type Code ([id number]) Display Name: Medicaid Code: SELF Code System Name: HL7 RoleCode Code System OID:2.16.840.1 .766857.5.111 Display Name: Self [id number] Root: [id number] Payer Name: [facility] Address: [address] City: [place]: [place] Country: [facility] Problems Problem # Description Date of onset Resolved Date Code CodeSystem Concern Status 1 DEPRESSION, UNSPECIFIED 07/24/[address] active 2 ACUTE EMBOLISM AND THROMBOSIS OF UNSPECIFIED DEEP VEINS OF UNSPECIFIED LOWER EXTREMITY 07/23/[address] active 3 ANXIETY DISORDER, UNSPECIFIED 07/23/[address] active 4 EMPHYSEMA, UNSPECIFIED 07/23/[address] active 5 ESSENTIAL (PRIMARY) HYPERTENSION 07/23/[address] active 6 GASTROINTESTINAL HEMORRHAGE, UNSPECIFIED 07/23/[address] active 7 HEMORRHAGE OF ANUS AND RECTUM 07/23/[address] active 8 HYPERLIPIDEMIA, UNSPECIFIED 07/23/[address] active 9 MORBID (SEVERE) OBESITY DUE TO EXCESS CALORIES 07/23/[address] active 10 NEED FOR ASSISTANCE WITH PERSONAL CARE 07/23/[address] active 11 OTHER PULMONARY EMBOLISM WITHOUT ACUTE COR PULMONALE 07/23/[address] active 12 TYPE 2 DIABETES MELLITUS WITH OTHER SPECIFIED COMPLICATION 07/23/[address] active 13 UNSPECIFIED ABDOMINAL PAIN 07/23/[address] active 14 UNSPECIFIED ABNORMALITIES OF GAIT AND MOBILITY 07/23/[address] active 15 UNSTEADINESS ON FEET 07/23/[address] active 16 VASCULAR DISORDER OF INTESTINE, UNSPECIFIED 07/23/[address] active Reason for Referral No Reasons for Referral Entered Social History Social History Observation Description Start Date End Date Code Code System Current Smoking Status Tobacco smoking consumption unknown 203928320 SNOMED CT Sex Assigned At Female 1955 94134-8 [facility] Gender Identity Sexual Orientation Vital Signs Code Code System Vitals Name Values and Units Timing Information 2339-0 [facility] Blood Sugar Rtrze=709.0 Units=mg/dL 07/29/2023 9279-1 [facility] Respiratory Rate Value=18.0 Units=/m in 07/29/2023 8310-5 [facility] Body Temperature Value=98.2 Units= F 07/29/2023 77201-6 [facility] O2 % BldC Oximetry Value=94.0 Units= % 07/29/2023 8462-4 [facility] Blood Pressure-Diastolic Value=63 Un its=mmHg 07/29/2023 8480-6 [facility] Blood Pressure-Systolic Zpefk=270 Un its=mmHg 07/29/2023 8867-4 [facility] Heart rate Value=67.0 Units=/min 77294-9 [facility] Pain Level Value=0.0 07/29/2023 40277-3 [facility] Weight Itnxa=984.0 Units=Lbs 11/2023 8302-2 [facility] Height Value=65.0 Units=Inches 07/23/2023
--- OUTSIDE RECORDS SUMMARY | 2025-03-13 10:30 | XMS_ITS | Encounter Summary ---
Author Organization [employer] Address [address] [place] [address] Care Team Providers Care Retail Service Specialist Name Role Phone Breanna Zamudio Primary Care Provider [phone] Ludmila Walker MD Unavailable [phone] Reason for Visit * Reason Onset Date Comments Medication Question 02/02/2025 Encounter Details Date Type Department Care Team ([facility] st Contact Info) Description 02/02/2025 Telephone [facility] MEDICINE [address] [place], [place] [phone] Breanna Zamudio ANP 230 [place], [place] [phone] Medication Question Social History Tobacco Use Types [...] 04/18/2025 2:15 PM EST Office Visit [facility] MEDICINE [address] [place] [address] Breanna Zamudio ANP 230 [place] [address] 04/26/2025 3:15 PM EST Clinical Support [facility] MED & PEDS 505 [place] [address] Sis Coppola, RN 505 [place] [address] documented as of this encounter Goals Goal [...] documented as of this encounter Care Teams Retail Service Specialist Relationship Specialty Start Date End Date Breanna Zamudio ANP [address] [place] [address] PCP - General Family Medicine 10/03/19 Ludmila Walker MD [address] [place] [address] Drive 3rd [place] [address] Gastroenterology 11/22/24 [facility] 07/31/23 documented as of this encounter
--- OUTSIDE RECORDS SUMMARY | 2025-03-13 10:30 | XMS_ITS | Encounter Summary ---
Author Organization [employer] Address [address] 7t [place] [address] Care Team Providers Care Insole Buffer Name Role Phone Breanna Zamudio Primary Care Provider [phone] Ludmila Walker MD Unavailable [phone] Reason for Visit * Reason Onset Date Comments Med Refill 10/27/2023 Encounter Details Date Type Department Care Team (Late st Contact Info) Description 10/27/2023 Telephone [facility] MEDICINE 230 [place], [place] [phone] Breanna Zamudio ANP 230 [place], [place] [phone] Med Refill Social History Tobacco Use Types [...] tablet To be sent to: [facility] Pharm[facility] documented in this encounter Plan of Treatment Upcoming Encounters Date Type Department Care Team (Late st Contact Info) Description 04/18/2025 2:15 PM EST Office Visit [facility] MEDICINE 230 [place] [address] Breanna Zamudio ANP 230 [place] [address] 04/26/2025 3:15 PM EST Clinical Support [facility] MED & PEDS 505 [place] [address] Sis Coppola, AIDA 505 [place] [address] documented as of this encounter Visit Diagnoses Not on filedocumented in this encounter Care Teams Insole Buffer Relationship Specialty Start Date End Date Breanna Zamudio ANP [address] [place] [address] PCP - General Family Medicine 10/03/19 Ludmila Walker MD [address] [place] [address] Drive 3rd Floor [place] [phone] Gastroenterology 11/22/24 [place] [facility] 07/31/23 documented as of this encounter
--- OUTSIDE RECORDS SUMMARY | 2025-03-13 10:30 | XMS_ITS | Encounter Summary ---
Author Organization [employer] Address [address] 7t [place] [address] Care Team Providers Care Mannequin Wig Maker Name Role Phone Breanna Zamudio Primary Care Provider [phone] Ludmila Walker MD Unavailable [phone] Reason for Visit * Reason Onset Date Comments Med Refill 01/21/2024 Encounter Details Date Type Department Care Team (Late st Contact Info) Description 01/21/2024 Telephone [facility] MEDICINE 230 [place], [place] [phone] Breanna Zamudio ANP 230 [place], [place] [phone] Med Refill Social History Tobacco Use Types [...] immediate release tablet To be sent to: [facility] - [place], [place] - [address] [place] [address] documented in this encounter Plan of Treatment Upcoming Encounters Date Type Department Care Team ([facility] st Contact Info) Description 04/18/2025 2:15 PM EST Office Visit [facility] MEDICINE 230 [place] [address] Breanna Zamudio ANP 230 [place] [address] 04/26/2025 3:15 PM EST Clinical Support [facility] CHC MED & PEDS 505 [place] [address] Sis Coppola, AIDA 505 [place] [address] documented as of this encounter Visit Diagnoses Not on filedocumented in this encounter Care Teams Mannequin Wig Maker Relationship Specialty Start Date End Date Breanna Zamudio ANP 230 [place] [address] PCP - General Family Medicine 10/03/19 Ludmila Walker MD [address] [place] [address] 3rd [place] [address] Gastroenterology 11/22/24 [facility] 07/31/23 documented as of this encounter
--- OUTSIDE RECORDS SUMMARY | 2025-03-13 10:30 | XMS_ITS | Encounter Summary ---
Author Organization [employer] Address [address] 7t [place] [address] Care Team Providers Care Solutions Operator Name Role Phone Breanna Zamudio Primary Care Provider Ludmila Walker MD Unavailable [phone] Reason for Visit * Reason Comments Med Refill Encounter Details Date Type Department Care Team (Late st Contact Info) Description 04/07/2022 Refill [facility] CH[facility] MED & PEDS [address] [place], [place] [phone] Breanna Zamudio ANP 230 [place], [place] [phone] Pain in unspecified joint Social History Tobacco [...] Upcoming Encounters Date Type Department Care Team ([facility] Contact Info) Description 04/18/2025 2:15 PM EST Office Visit [facility] MEDICINE 230 [place] [address] Breanna Zamudio ANP 230 [place] [address] 04/26/2025 3:15 PM EST Clinical Support [facility] MED & PEDS 505 [place] [address] Sis Coppola, RN 505 [place] [address] documented as of this encounter Visit Diagnoses Diagnosis Pain in unspecified joint documented in this encounter Care Teams Solutions Operator Relationship Specialty Start Date End Date Breanna Zamudio ANP 230 [place] [address] PCP - General Family Medicine 10/03/19 Ludmila Walker MD [address] [place] [address] Drive 3rd [place] [address] Gastroenterology 11/22/24 [facility] 07/31/23 documented as of this encounter
--- OUTSIDE RECORDS SUMMARY | 2025-03-13 10:30 | XMS_ITS | Encounter Summary ---
Author Organization [employer] Address [address] 7t [place] [address] Care Team Providers Care Funding Coordinator Name Role Phone Breanna Zamudio Primary Care Provider [phone] Ludmila Walker MD Unavailable [phone] Encounter Details Date Type Department Care Team (Late st Contact Info) Description 08/31/2023 Telephone [facility] MEDICINE 230 [place], [place] [phone] Breanna Zamudio ANP 230 [place], [place] [phone] Social History Tobacco Use Types Packs/Day Years [...] Description 04/18/2025 2:15 PM EST Office Visit [facility] MEDICINE [address] [place] [address] Breanna Zamudio ANP [address] [place] [address] 04/26/2025 3:15 PM EST Clinical Support [facility] MED & PEDS 505 [place] [address] Sis Coppola, AIDA 505 [place] [address] documented as of this encounter Visit Diagnoses Not on filedocumented in this encounter Care Teams Funding Coordinator Relationship Specialty Start Date End Date Breanna Zamudio ANP [address] [place] [address] PCP - General Family Medicine 10/03/19 Ludmila Walker MD [address] 3rd [place] [address] Gastroenterology 11/22/24 [facility] 07/31/23 documented as of this encounter
--- OUTSIDE RECORDS SUMMARY | 2025-03-13 10:30 | XMS_ITS | Encounter Summary ---
Author Organization [employer] Address [address] 7t [place] [address] Care Team Providers Care Field Human Resources Manager Name Role Phone Breanna Zamudio Primary Care Provider [phone] Ludmila Walker MD Unavailable [phone] Reason for Visit * Reason Comments Med Refill Encounter Details Date Type Department Care Team (Late st Contact Info) Description 10/10/2024 Refill [facility] CH[facility] MED & PEDS [address] [place], [place] [phone] Breanna Zamudio ANP [address] [place] [address] Long-term current use of opiate analgesic; Osteoarthritis [...] Description 04/18/2025 2:15 PM EST Office Visit [facility] MEDICINE [address] [place] [address] Breanna Zamudio ANP [address] [place] [address] 04/26/2025 3:15 PM EST Clinical Support [facility] MED & PEDS 505 [place] [address] Sis Coppola, AIDA 505 [place] [address] documented as of this encounter Visit Diagnoses Diagnosis Long-term current use of opiate analgesic Encounter for long-term (current) use of other medications Osteoarthritis of multiple joints, unspecified osteoarthritis type Arthralgia, unspecified joint documented in this encounter Care Teams Field Human Resources Manager Relationship Specialty Start Date End Date Breanna Zamudio ANP [address] [place] [address] PCP - General Family Medicine 10/03/19 Ludmila Walker MD [address] 3rd [place] [address] Gastroenterology 11/22/24 [facility] 07/31/23 documented as of this encounter
--- OUTSIDE RECORDS SUMMARY | 2025-03-13 10:30 | XMS_ITS | Encounter Summary ---
Author Organization [employer] Address [address] 7t [place] [address] Care Team Providers Care Tab Cutting Machine Operator Name Role Phone Breanna Zamudio Primary Care Provider [phone] Ludmila Walker MD Unavailable [phone] Reason for Visit * Reason Onset Date Comments Med Refill 01/30/2025 Encounter Details Date Type Department Care Team ([facility] st Contact Info) Description 01/30/2025 Telephone [facility] MEDICINE 230 [place], [place] [phone] Breanna Zamudio ANP 230 [place], [place] [phone] Med Refill Social History Tobacco Use Types [...] immediate release tablet To be sent to: [facility] - [place], [place] - [address] [place] [address] documented in this encounter Plan of Treatment Upcoming Encounters Date Type Department Care Team ([facility] st Contact Info) Description 04/18/2025 2:15 PM EST Office Visit [facility] MEDICINE 230 [place] [address] Breanna Zamudio ANP 230 [place] [address] 04/26/2025 3:15 PM EST Clinical Support [facility] MED & PEDS 505 [place] [address] Sis Coppola, AIDA 505 [place] [address] documented as of this encounter Goals Goal [...] documented as of this encounter Care Teams Tab Cutting Machine Operator Relationship Specialty Start Date End Date Breanna Zamudio ANP [address] [place] [address] PCP - General Family Medicine 10/03/19 Ludmila Walker MD [address] 3rd [place] [address] Gastroenterology 11/22/24 [facility] 07/31/23 documented as of this encounter
--- OUTSIDE RECORDS SUMMARY | 2025-03-13 10:30 | XMS_ITS | Encounter Summary ---
Author Organization [employer] [place] [employer] Address [address] 7t [place] [address] Care Team Providers Care Senior Programmer Name Role Phone Breanna Zamudio Primary Care Provider [phone] Ludmila Walker MD Unavailable [phone] Reason for Visit * Reason Comments Med Refill Encounter Details Date Type Department Care Team ([facility] st Contact Info) Description 08/24/2023 Refill [facility] MEDICINE 230 [place], [place] [phone] Breanna Zamudio ANP 230 [place], [place] [phone] Ischemic colitis ([facility]/HCC) Social History Tobacco Use Types [...] 04/18/2025 2:15 PM EST Office Visit [facility] MEDICINE [address] [place] [address] Breanna Zamudio ANP 230 [place] [address] 04/26/2025 3:15 PM EST Clinical Support [facility] MED & PEDS 505 [place] [address] Sis Coppola, AIDA 505 [place] [address] documented as of this encounter Visit Diagnoses Diagnosis Ischemic colitis (CMS/HCC) documented in this encounter Care Teams Senior Programmer Relationship Specialty Start Date End Date Breanna Zamudio ANP [address] [place] [address] PCP - General Family Medicine 10/03/19 Ludmila Walker MD [address] [place] [address] Drive 3rd [place] [address] Gastroenterology 11/22/24 [facility] 07/31/23 documented as of this encounter
--- OUTSIDE RECORDS SUMMARY | 2025-03-13 10:30 | XMS_ITS | Clinical Summary ---
Author Organization [employer] Address 75 [facility] 7t [place] [address] Care Team Providers Care Director Of Institutional Research Name Role Phone Robb [place] SILVA Primary Care Provider [phone] Ludmila Walker MD Unavailable [phone] Allergies No known active allergies Medications [...] 34 UNITS SUBCUTANEOUSLY EVERY EVENING Active Lancets (Buzz360Touch Delica Plus Odhgmj15N) misc TEST BLOOD SUGAR TWICE DAILY Active [...] ONCE A WEEK 024 Active Continuous Glucose Ocean Lifeguard (FreeStyle Manuelito 2 [place]) device Use as directed 024 Active Continuous [...] See Colonoscopy bx report 11/16/24 Dr. Walker, [facility] GI Tumor site: Gastric body Tumor size: [...] edema. I d/w patient that this a usp issue to fu with PCP, encouraged tight [...] AM EST): Rx Paxlovid x 5 days, [place] interactions module checked, she will hold Crestor [...] External Data 03/02/2025 1:00 PM EST Telemedicine [facility] [address] [place] [address] Sis Coppola RN Chronic midline thoracic back pain 03/02/2025 Travel 02/28/2025 Telephone [facility] [address] [place] [address] Sis Coppola RN 02/28/[address] [address] [place] Cifuentes ANP Appointment Request 02/27/[address] [address] [place] Cifuentes ANP Prior Authorization 02/22/2025 Refill [facility] [address] [place] [address] Sis Coppola, RN Long-term current use of opiate analgesic; Osteoarthritis of multiple joints, unspecified osteoarthritis type; Arthralgia, unspecified joint 02/22/[address] [address] [place] Cifuentes ANP Med Refill 02/16/2025 Results Follow-Up [address] [address] [place] Cifuentes ANP Albumin, Random Urine W/Creatinine 02/13/2025 1:15 PM EST Office Visit [address] [address] [place] Cifuentes ANP Hyperlipidemia associated with type 2 diabetes mellitus (HCC) (Primary Dx); Essential hypertension; 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); Mixed anxiety and depressive disorder; Class 1 obesity with serious comorbidity and body mass index (BMI) of 33.0 to 33.9 in adult, unspecified obesity type; Dietary counseling; Exercise counseling; Osteoarthritis of multiple joints, unspecified osteoarthritis type; [facility] (current) use of opiate analgesic; Bilateral leg edema; Chronic midline thoracic back pain; Irritable bowel syndrome with diarrhea 02/13/2025 Travel 02/08/[address] [address] [place] Cifuentes ANP chartprep 02/07/2025 Orders Only [address] [address] [place] Cifuentes ANP Long-term current use of opiate analgesic; Osteoarthritis of multiple joints, unspecified osteoarthritis type; Arthralgia, unspecified joint 02/03/2025 Refill [facility] [address] [place] [address] McMSis almeida RN Long-term current use of opiate analgesic; Osteoarthritis of multiple joints, unspecified osteoarthritis type; Arthralgia, unspecified joint 02/03/2025 Telephone [facility] [address] [place] [address] Sis Coppola RN 02/03/2025 Telephone [facility] [address] [place] [address] [place] Cifuentes ANP Appointment Request 02/02/2025 Telephone [facility] [address] [place] [address] [place] Cifuentes ANP Medication Question 01/31/2025 Orders Only GENERIC EXTERNAL DATA DEPARTMENT Provider, Generic External Data 01/30/2025 Refill [facility] [address] [place] [address] Sis Coppola RN Long-term current use of opiate analgesic; Osteoarthritis of multiple joints, unspecified osteoarthritis type; Arthralgia, unspecified joint 01/30/2025 Telephone [facility] [address] [place] [address] [place] Cifuentes ANP Med Refill 01/26/2025 Refill [facility] [address] [place] [address] Marce Gross MD 01/23/2025 Telephone [facility] [address] [place] [address] Sis Coppola RN 01/23/2025 Travel 01/11/2025 Refill [facility] [address] [place] [address] [place] Cifuentes ANP Mixed anxiety and depressive disorder 01/05/2025 Telephone [facility] [address] [place] [address] [place] Cifuentes ANP fyi 01/02/2025 Refill [facility] [address] [place] [address] Sis Coppola, AIDA Long-term current use of opiate analgesic; Osteoarthritis of multiple joints, unspecified osteoarthritis type; Arthralgia, unspecified joint 01/02/2025 Telephone [facility] [address] [place] [address] [place] Cifuentes ANP Med Refill 12/21/2024 Travel 12/19/2024 1:00 PM EDT Office Visit [facility] [address] [place] [address] [place] Cifuentes ANP Gastroesophageal reflux disease without esophagitis (Primary Dx); Hyperlipidemia associated with type 2 diabetes mellitus (HCC); Hiatal hernia; Encounter for immunization; Essential hypertension; Dyslipidemia; Hypertension associated with diabetes (HCC); Proteinuria, unspecified type; Diabetic nephropathy associated with type 2 diabetes mellitus (HCC); 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) 12/19/2024 Travel 12/16/2024 Telephone [facility] [address] [place] [address] Celine Woodward [place] 12/16/2024 Telephone [facility] [address] [place] [address] [place] Cifuentes ANP chartprep 12/13/2024 Orders Only [facility] External Provider, [facility] from Last 3 Months Immunizations Immunization [...] Description 04/18/2025 2:15 PM EST Office Visit [facility] [address] [place] [address] [place] Cifuentes ANP [address] [place] [address] 04/26/2025 3:15 PM EST Clinical Support [facility] [address] [place] [address] Sis Coppola, RN [address] [place] [address] Health Maintenance Due Date Last Done Comments [...] Weekly blood pressure task No Zayra Thomas [place] Weekly blood pressure task Care Plan Weekly blood pressure task No Zayra Thomas [place] Patient has chronic kidney disease Care Plan Patient has chronic kidney disease No Zayra Thomas [place] Patient has chronic kidney disease Care Plan Patient has chronic kidney disease No Zayra Thomas [place] Weekly blood pressure task Care Plan Weekly blood pressure task No Zayra Thomas [place] Weekly blood pressure task Care Plan Weekly blood pressure task No Zayra Thomas [place] Patient has chronic kidney disease Care Plan Patient has chronic kidney disease No Zayra Thomas [place] Patient has chronic kidney disease Care Plan Patient has chronic kidney disease No Zayra Thomas [place] Weekly blood pressure task Care Plan Weekly [...] Procedure Name Priority Date/Time Associated Diagnosis Comments MR MRCP Routine 03/13/2025 9:50 AM EST GLUCOSE, WHOLE BLOOD Routine 03/07/2025 12:52 PM EST ALBUMIN, RANDOM URINE W/CREATININE Routine 02/13/2025 12:00 AM EST Hyperlipidemia associated with type 2 diabetes mellitus (HCC) GLUCOSE, WHOLE BLOOD Routine 01/31/2025 1:04 PM EST POCT GLYCATED HEMOGLOBIN, TOTAL Routine 12/19/2024 1:09 PM EDT Hyperlipidemia associated with type 2 diabetes mellitus (HCC) POCT GLUCOSE (CPT-70050) Routine 12/19/2024 1:08 PM EDT Hyperlipidemia associated [...] Recently Relevant to Health Maintenance Results * MR MRCP (03/13/2025 9:50 AM EST) Anatomical Region Laterality Modality Lower Extremities Left Magnetic Reson ance 03/13/2025 9:50 AM EST Narrative 03/13/2025 10:21 AM EST [place] [address] Magnetic Resonance Report Signed Patient: Lois Dalton MR#: [id number] 1 : 1955 Acct:[id number] Age/Sex: 69 / F ADM Date: 03/13/25 Loc: .MRI Attending Dr: Ludmila Walker MD Ordering Physician: Ludmila Walker MD Date of Service: 03/13/25 Procedure(s): MR MRCP Accession Number(s): [id number] cc: Ludmila Walker MD; [place] CIFUENTES NP Reason for Exam: R10.11 - Right upper quadrant pain EXAMINATION: MRCP HISTORY: R10.11 - Right upper quadrant pain TECHNIQUE: Localizer images were obtained. Subsequently, the patient became claustrophobic and the study was terminated. FINDINGS: There is a probable cyst at the lower pole of the left kidney as noted on CT 12/13/2024. MR/MR MRCP IMPRESSION: Nondiagnostic examination. The patient became claustrophobic and the study was terminated. Electronically signed by: Cj Gomez MD 03/13/2025 10:19 AM EST RP Dictated By: Cj Gomez MD Signed By: <Electronically signed by Cj Gomez MD in OV> 03/13/25 1019 DD/ TD/TT: 03/13/25954 Teller: Procedure Note Donotuseinterpreter, Image - 03/13/2025 [place] [address] Magnetic Resonance Report Signed Patient: Arnav Dalton#: [id number] 1 : 5Acct:[id number] Age/Sex: 69 / FADM Date: 03/13/25 Loc: .MRI Attending Dr: Ludmila Walker MD Ordering Physician: Ludmila Walker MD Date of Service: 03/13/25 Procedure(s): MR MRCP Accession Number(s): [id number] cc: Ludmila Walker MD; [place] CIFUENTES NP Reason for Exam: R10.11 - Right upper quadrant pain EXAMINATION: MRCP HISTORY: R10.11 - Right upper quadrant pain TECHNIQUE: Localizer images were obtained. Subsequently, the patient became claustrophobic and the study was terminated. FINDINGS: There is a probable cyst at the lower pole of the left kidney as noted on CT 12/13/2024. MR/MR MRCP IMPRESSION: Nondiagnostic examination. The patient became claustrophobic and the study was terminated. Electronically signed by: Cj Gomez MD 03/13/2025 10:19 AM EST RP Dictated By: Cj Gomez MD Signed By: <Electronically signed by Cj Gomez MD in OV> 03/13/25 1019 DD/ 0950 TD/TT: 03/13/25 0955 Teller: [facility] External Provider IMG MRI PROCEDURES Final Result * (ABNORMAL) Glucose, Whole Blood (03/07/2025 12:52 PM EST) Only the most recent of2 resultswithin the time period is included. Glucose, Whole Blood 217(H) 60 - 115 mg/dL [facility] Comment:METER #: [id number] Testing performed in the Endocrinology Department [address] , [address], [facility]. 03/07/2025 12:5 2 PM EST 03/07/2025 12:57 PM EST Generic External Data Provider LAB BLOOD ORDERAB LES Final Result Performing Organization Address [facility] de Phone Number [facility] [address] [place] [phone] * (ABNORMAL) Albumin, Random Urine W/Creatinine (02/13/2025 12:00 AM EST) Creatinine, Urine 77.63 mg/dL [facility] Microalbumin Urine 61.0 mg/L [facility] Microalbum Creatinine Ratio Ur 78.5(H) <30 ug/mg cr [facility] Comment:Albumin/Creatinine R atio Reference Ranges: Normal: < 30 ug/mg creatinine Microalbuminuria: 30 - 300 ug/mg creatinineClinical Albuminuria: > 300 ug/mg creatinine Urine (Urine, Random) 02/13/2025 02/13/2025 [place] Cifuentes [facility] LAB URINE ORDERABLES Final Resul t Performing Organization Address [facility] Co de Phone Number [facility] [address] [place] [phone] * (ABNORMAL) POCT Hgb A1c (12/19/2024 [...] Media Lot # [id number] Lot# Expiration Date [id number] Blood Capillary blood specimen / Unknown 12/19/2024 1:08 PM EDT us [place] Cifuentes ANP POINT OF CARE TEST ENTER/EDIT OR DERABLES Final Result * CT Abdomen Pelvis w/ Contrast (12/13/2024 1:52 PM EDT) Anatomical Region Laterality Modality Body, Pelvis, Abdomen Computed T omography 12/13/2024 1:52 PM EDT Narrative 12/13/2024 2:37 PM EDT [place] [address] CT Scan Report Signed Patient: Lois Dalton MR#: [id number] 1 : 1955 Acct:[id number] Age/Sex: 69 / F ADM Date: 12/13/24 Loc: HO.CT Attending Dr: Lucia Whitney NP Ordering Physician: Lucia Whitney NP Date of Service: 12/13/24 Procedure(s): CT abdomen pelvis w IV con Accession Number(s): [id number] cc: Whitney Correa MD; [place] CIFUENTES NP; Lucia Whitney NP Report Number: [id number]: Total DLP = 645.00 mGy-cm Reason for [...] 12/13/24 1434 DD/ 1352 TD/TT: 12/13/24 1428 Teller: Procedure Note Gardeniater, Image - 12/13/[address] [address] [address] Scan Report Signed Patient: Arnav Dalton#: [id number] 1 : 5Acct:[id number] Age/Sex: 69 / FADM Date: 12/13/24 Loc: HO.CT Attending Dr: Lucia Whitney NP Ordering Physician: Lucia Whitney NP Date of Service: 12/13/24 Procedure(s): CT abdomen pelvis w IV con Accession Number(s): [id number] cc: Whitney Correa MD; [place] CIFUENTES CEMENT FINISHER APPRENTICE; Lucia Whitney NP Report Number: [id number]: Total DLP = 645.00 mGy-cm Reason for [...] 12/13/24 1434 DD/ 1352 TD/TT: 12/13/24 1428 Teller: [facility] External Provider IMG CT PROCEDURES Final Result * Hepatitis Panel, General (09/06/2024 12:36 PM EDT) Hepatitis A IgM Nonreactive Nonreactive [facility] Comment:IgM antibodies to MARTINEZ V not detected; does not exclude earlyacute or recovered HAV infection. ~Hepatitis B Surface Antibody NONREACTIVE Nonreactive [facility] Comment:Nonreactive: < 8.00 mIU/mL Hepatitis B Core Antibody Nonreactive Nonreactive [facility] Hepatitis C Antibody Nonreactive Nonreactive [facility] Comment:Antibodies to HCV no t detected; does not exclude early acuteHCV infection. Hepatitis B Surface Ag Negative Negative [facility] 09/06/2024 12:3 6 PM EDT 09/06/2024 12:36 PM EDT us Generic External Data Provider LAB BLOOD ORDERAB LES Final Result [facility] [address] [place] [address] [phone] * BI Mammogram Screening Tomosynthesis Bilateral (07/07/2024 12:21 PM EDT) Anatomical Region Laterality Modality Breast Bilateral Mammography 07/07/2024 12:2 1 PM EDT Narrative 07/15/2024 4:34 PM EDT [facility] [address] [place] [address] Mammography Report Signed Patient: Lois Dalton MR#: [id number] 1 : 1955 Acct:[id number] Age/Sex: 69 / F ADM Date: 07/07/24 Loc: HO.MAMMO Attending Dr: [place] Cifuentes NP Ordering Physician: [place] CIFUENTES NP Results: 1Negative Date of Service: 07/07/24 Follow Up: 1 Year From Orig inal Mammogram Procedure(s): MM tomosynthesis screening BI Accession Number(s): [id number] cc: [place] CIFUENTES NP EXAMINATION: MM SCREENING [...] 07/15/24 1631 DD/ 1221 TD/TT: 07/07/24 1246 Teller: Procedure Note Donotuseinterpreter, Image - 07/15/2024 [facility] [address] [place], [place] [address] Mammography Report Signed Patient: Arnav Dalton#: [id number] 1 : 5Acct:[id number] Age/Sex: 69 / FADM Date: 07/07/24 Loc: HO.MAMMO Attending Dr: [place] Cifuentes NP Ordering Physician: [place] CIFUENTES NPResults: 1Negative Date of Service: 07/07/24Follow Up: 1 Year From Orig inal Mammogram Procedure(s): MM tomosynthesis screening BI Accession Number(s): [id number] cc: [place] CIFUENTES NP EXAMINATION: MM SCREENING [...] 07/15/24 1631 DD/ 1221 TD/TT: 07/07/24 1246 Teller: [place] KMUAR BI PROCEDURES Final Result * (ABNORMAL) Hm Colonoscopy (12/23/2022) Colonoscopy Abnormal( A) Normal [facility] Comment:tubular adenoma 12/23/2022 Yuni Jeffery MD HEALTH MAINTENANCE Final Result Performing Organization Address [facility] Co de Phone Number [facility] [address] [place] [phone] * Direct LDL (08/15/2022 12:35 PM EDT) LDL Direct 70 <100 mg/dL [facility] Comment:Greatly elevated Tri glycerides values (>1200 mg/dL)interfere with the dLDL assay. As no Triglyceridestesting was ordered, interpret results with caution.Desirable range <100 mg/dL for primary prevention;<70 mg/dL for patients with CHD or diabetic patientswith > or = 2 CHD risk factors.THIS TEST WAS PERFORMED AT:[employer] [place] [phone] JAIME MD 08/15/2022 12:3 5 PM EDT 08/15/2022 12:36 PM EDT [facility] External Provider LAB BLO OD ORDERABLES Final Result Performing Organization Address [facility] Co de Phone Number [facility] [address] [place] [phone] from Last 3 Months or Most [...] Patient has chronic kidney disease 03/02/2025 Insurance [facility] OPTIONS (O D-SNP) [place] [id number] Care Teams Director Of Institutional Research Relationship Specialty Start Date End Date [place] Cifuentes ANP [address] [place] [address] PCP - General Family Medicine 10/03/19 Ludmila Walker MD [address] 3rd [place] [address] Gastroenterology 11/22/24 [facility] 07/31/23
--- OUTSIDE RECORDS SUMMARY | 2025-03-13 10:30 | XMS_ITS | Encounter Summary ---
Author Organization [employer] Address 75 [facility] 7t [place] [address] Care Team Providers Care Consulting Nurse Name Role Phone Breanna Zamudio Primary Care Provider [phone] Ludmila Walker MD Unavailable [phone] Reason for Visit * Reason Onset Date Comments Durable Medical Equipment 09/08/2022 Encounter Details Date Type Department Care Team (Late st Contact Info) Description 09/08/2022 Telephone [facility] [address] [place] [address] Breanna Zamudio ANP [address] [place] [address] Durable Medical Equipment Social History Tobacco Use [...] machines, please see notes,. Please contact at [phone] Persian * Telephone Encounter - RICARDO Caraballo - 09/19/2022 6:26 PM EDT Yes, of course. Thank you. Will place signed RX on your desk. * Telephone Encounter - Madhuri Doe - 09/18/2022 1:56 PM EDT Tc from [facility] with [facility] requesting status on nebulizer. States if script has not been sent to [facility], fax to [facility]. FAX: [phone] Please contact [facility] at [phone] ext [phone] * Telephone Encounter - Rosalinda Rucker - 09/08/2022 3:29 PM EDT Tc from patient requesting a new script for a nebulizer machine. States current one broke. documented in this encounter Plan of Treatment Upcoming Encounters Date Type Department Care Team (Late st Contact Info) Description 04/18/2025 2:15 PM EST Office Visit [facility] [address] [place] [address] Breanna Zamudio ANP [address] [place] [address] 04/26/2025 3:15 PM EST Clinical Support [facility] [address] [place] [address] Sis Coppola, AIDA [address] [place] [address] documented as of this encounter Visit Diagnoses Not on filedocumented in this encounter Care Teams Consulting Nurse Relationship Specialty Start Date End Date Breanna Zamudio ANP [address] [place] [address] PCP - General Family Medicine 10/03/19 Ludmila Walker MD [address]rd [place] [address] Gastroenterology 11/22/24 [facility] 07/31/23 documented as of this encounter
--- OUTSIDE RECORDS SUMMARY | 2025-03-13 10:30 | XMS_ITS | Encounter Summary ---
Author Organization [employer] Address [address] [facility] [address] 7t [place] [address] Care Team Providers Care Administrative Law Judge Name Role Phone Breanna Zamudio Primary Care Provider [phone] Ludmila Walker MD Unavailable [phone] Reason for Visit * Reason Onset Date Comments Appointment Request 02/03/2025 Encounter Details Date Type Department Care Team ([facility] st Contact Info) Description 02/03/2025 Telephone [facility] [address] [place], [place] [phone] Breanna Zamudio ANP [address] [place], [place] [phone] Appointment Request Social History Tobacco Use Types [...] call back to R/S appointment from 01/23 OCCUPATIONAL THERAPIST PER DIEM Televisit; [facility] pt. PCP Dr. Zamudio documented in this encounter Plan of Treatment Upcoming Encounters Date Type Department Care Team (Late st Contact Info) Description 04/18/2025 2:15 PM EST Office Visit [facility] [address] [place] [address] Breanna Zamudio ANP [address] [place] [address] 04/26/2025 3:15 PM EST Clinical Support [facility] [address] [place] [address] Sis Coppola, AIDA [address] [place] [address] documented as of this encounter Goals Goal [...] documented as of this encounter Care Teams Administrative Law Judge Relationship Specialty Start Date End Date Breanna Zamudio ANP [address] [place] [address] PCP - General Family Medicine 10/03/19 Ludmila Walker MD [address] [place] [address] [address] [place] [address] Gastroenterology 11/22/24 [facility] 07/31/23 documented as of this encounter
--- OUTSIDE RECORDS SUMMARY | 2025-03-13 10:30 | XMS_ITS | Encounter Summary ---
Author Organization [employer] Address [address] [facility] [address] 7t [place] [address] Care Team Providers Care Object Oriented Programmer Name Role Phone Breanna Zamudio Primary Care Provider [phone] Ludmila Walker MD Unavailable [phone] Reason for Visit * Reason Onset [...] her to return my call at ext [phone]. Encounter Details Date Type Department Care Team (Late st Contact Info) Description 05/06/2024 Refill [facility] [address] [place], [place] [phone] Breanna Zamudio ANP [address] [place], [place] [phone] Ischemic colitis (CMS/HCC) Social History Tobacco Use [...] her to return my call at ext [phone]. * Telephone Encounter - Prisca Ramos [place] [...] [facility] MED[facility]INE [address] [place] [address] Breanna Zamudio ANP [address] [place] [address] 04/26/2025 3:15 PM EST Clinical Support [facility] [address] [place] [address] Sis Coppola, RN [address] [place] [address] documented as of this encounter Visit Diagnoses Diagnosis Ischemic colitis (CMS/HCC) documented in this encounter Care Teams Object Oriented Programmer Relationship Specialty Start Date End Date Breanna Zamudio ANP [address] [place] [address] PCP - General Family Medicine 10/03/19 Ludmila Walker MD [address] [place] [address] 3rd [place] [address] Gastroenterology 11/22/24 [facility] 07/31/23 documented as of this encounter
--- OUTSIDE RECORDS SUMMARY | 2025-03-13 10:30 | XMS_ITS | Encounter Summary ---
Author Organization [employer] Address [address] [facility] [address] [address] 7t [place] [address] Care Team Providers Care Admin Asst Name Role Phone Breanna Zamudio Primary Care Provider [phone] Ludmila Walker MD Unavailable [phone] Encounter Details Date Type Department Care Team (Late st Contact Info) Description 08/06/2023 Telephone [facility] MEDICINE 230 [place], [place] [phone] Breanna Zamudio ANP 230 [place], [place] [phone] Social History Tobacco Use Types Packs/Day Years [...] the past 12 months, has t he [employer], gas, oil or water Workables threatened to shut off services in your [...] PM EST Office Visit [facility] [address] [place] [address] Breanna Zamudio ANP 230 [place] [address] 04/26/2025 3:15 PM EST Clinical Support [facility] PEDS 505 [place] [address] Sis Coppola, AIDA 505 [place] [address] documented as of this encounter Visit Diagnoses Not on filedocumented in this encounter Care Teams Admin Asst Relationship Specialty Start Date End Date Breanna Zamudio ANP [address] [place] [address] PCP - General Family Medicine 10/03/19 Ludmila Walker MD [address] [place] [address] 3rd [place] [address] Gastroenterology 11/22/24 [facility] 07/31/23 documented as of this encounter
--- OUTSIDE RECORDS SUMMARY | 2025-03-13 10:30 | XMS_ITS | Encounter Summary ---
Author Organization [employer] Address [address] [facility] [address] 7t [place] [address] Care Team Providers Care Emergency Preparedness Manager Name Role Phone Breanna Zamudio Primary Care Provider [phone] Ludmila Walker MD Unavailable [phone] Reason for Visit * Reason Onset Date Comments Medication Question 08/11/2024 Encounter Details Date Type Department Care Team ([facility] st Contact Info) Description 08/11/[address] [facility] MEDICINE 230 [place], [place] [phone] Breanna Zamudio ANP 230 [place], [place] [phone] Medication Question Social History Tobacco Use Types [...] month. States will be leaving out of [place] on Thursday and needs all her medications. Pt will be out for more than a month. Medication: OxyCODONE (Roxicodone) 10 MG immediate release tablet [phone] Patient [phone] Pt spouse documented in this encounter Plan of Treatment Upcoming Encounters Date Type Department Care Team (Late st Contact Info) Description 04/18/2025 2:15 PM EST Office Visit [facility] MEDICINE 230 [place] [address] Breanna Zamudio ANP 230 [place] [address] 04/26/2025 3:15 PM EST Clinical Support [facility] MED & PEDS 505 [place] [address] Sis Coppola, RN 505 [place] [address] documented as of this encounter Visit Diagnoses Not on filedocumented in this encounter Care Teams Emergency Preparedness Manager Relationship Specialty Start Date End Date Breanna Zamudio ANP [address] [place] [address] [place] [address] PCP - General Family Medicine 10/03/19 Ludmila Walker MD [address] [place] [address] 3rd [place] [address] Gastroenterology 11/22/24 [facility] 07/31/23 documented as of this encounter
--- OUTSIDE RECORDS SUMMARY | 2025-03-13 10:30 | XMS_ITS | Encounter Summary ---
Author Organization [employer] Address [address] [facility] [address] 7t [place] [address] Care Team Providers Care Office Assistant Name Role Phone Breanna Zamudio Primary Care Provider [phone] Ludmila Walker MD Unavailable [phone] Reason for Visit * Reason Onset Date Comments Appointment Request 02/28/2025 Encounter Details Date Type Department Care Team ([facility] st Contact Info) Description 02/28/2025 Telephone [facility] MEDICINE 230 [place], [place] [phone] Breanna Zamudio ANP 230 [place], [place] [phone] Appointment Request Social History Tobacco Use Types [...] t he electric, gas, oil or water [employer] threatened to shut off services in your [...] with an updated phone number. Contact spouse [phone] * Telephone Encounter - Dave Arita - 02/28/2025 10:37 AM EST Tc from pt requesting to change FACILITIES MANAGEMENT EXECUTIVE appointment to a telephone visit if possible. Please contact pt at [phone]. (American Speaker) documented in this encounter Plan of Treatment Upcoming Encounters Date Type Department Care Team (Late st Contact Info) Description 04/18/2025 2:15 PM EST Office Visit [facility] MEDICINE 230 [place] [address] Breanna Zamudio ANP 230 [place] [address] 04/26/2025 3:15 PM EST Clinical Support [facility] CHC MED & PEDS 505 [place] [address] Sis Coppola RN 505 [place] [address] documented as of this encounter Goals Goal [...] Weekly blood pressure task No Zayra Thomas [place] Weekly blood pressure task Care Plan Weekly blood pressure task No Zayra Thomas [place] Patient has chronic kidney disease Care Plan [...] documented as of this encounter Care Teams Office Assistant Relationship Specialty Start Date End Date Breanna Zamudio ANP [address] [place] [address] PCP - General Family Medicine 10/03/19 Ludmila Walker MD [address] [place] [address] Drive 3rd [place] [address] Gastroenterology 11/22/24 [facility] 07/31/23 documented as of this encounter
--- OUTSIDE RECORDS SUMMARY | 2025-03-13 10:30 | XMS_ITS | Encounter Summary ---
Author Organization [employer] Address [address] [facility] [address] 7t [place] [address] Care Team Providers Care Hand Twister Name Role Phone Breanna Zamudio Primary Care Provider [phone] Ludmila Walker MD Unavailable [phone] Reason for Visit * Reason Onset Date Comments Med Refill 11/18/2023 Encounter Details Date Type Department Care Team (Late st Contact Info) Description 11/18/2023 Telephone [facility] MEDICINE 230 [place], [place] [phone] Breanna Zamudio ANP 230 [place], [place] [phone] Med Refill Social History Tobacco Use Types [...] immediate release tablet To be sent to: [facility] - [place], [place] - [address] [place] [address] documented in this encounter Plan of Treatment Upcoming Encounters Date Type Department Care Team ([facility] st Contact Info) Description 04/18/2025 2:15 PM EST Office Visit [facility] MEDICINE 230 [place] [address] Breanna Zamudio ANP 230 [place] [address] 04/26/2025 3:15 PM EST Clinical Support [facility] MED & PEDS 505 [place] [address] Sis Coppola, AIDA 505 [place] [address] documented as of this encounter Visit Diagnoses Not on filedocumented in this encounter Care Teams Hand Twister Relationship Specialty Start Date End Date Breanna Zamudio ANP 230 [place] [address] PCP - General Family Medicine 10/03/19 Ludmila Walker MD [address] [place] [address] 3rd [place] [address] Gastroenterology 11/22/24 [facility] 07/31/23 documented as of this encounter
--- OUTSIDE RECORDS SUMMARY | 2025-03-13 10:30 | XMS_ITS | Encounter Summary ---
Author Organization [employer] Address [address] [facility] [address] 7t [place] [address] Care Team Providers Care Clerk General Name Role Phone Braenna Zamudio Primary Care Provider [phone] Ludmila Walker MD Unavailable [phone] Reason for Visit * Reason Comments Med Refill Encounter Details Date Type Department Care Team ([facility] st Contact Info) Description 08/24/2023 Refill [facility] 230 [place], [place] [phone] Breanna Zamudio ANP 230 [place], [place] [phone] Ischemic colitis ([facility]/HCC) Social History Tobacco [...] Description 04/18/2025 2:15 PM EST Office Visit [facility] [address] [place] [address] Breanna Zamudio ANP 230 [place] [address] 04/26/2025 3:15 PM EST Clinical Support [facility]S 505 [place] [address] Sis Coppola, AIDA 505 [place] [address] documented as of this encounter Visit Diagnoses Diagnosis Ischemic colitis (CMS/HCC) documented in this encounter Care Teams Clerk General Relationship Specialty Start Date End Date Breanna Zamudio ANP [address] [place] [address] PCP - General Family Medicine 10/03/19 Ludmila Walker MD [address] [place] [address] Drive 3rd [place] [address] Gastroenterology 11/22/24 [facility] 07/31/23 documented as of this encounter
--- OUTSIDE RECORDS SUMMARY | 2025-03-13 10:30 | XMS_ITS | Encounter Summary ---
Author Organization [employer] Address [address] [facility] [address] 7t [place] [address] Care Team Providers Care Wood Fence Erector Name Role Phone Breanna Zamudio Primary Care Provider [phone] Ludmila Walker MD Unavailable [phone] Reason for Visit * Reason Onset Date Comments Med Refill 02/22/2025 Encounter Details Date Type Department Care Team (Late st Contact Info) Description 02/22/2025 Telephone [facility] MEDICINE 230 [place], [place] [phone] Breanna Zamudio ANP 230 [place], [place] [phone] Med Refill Social History Tobacco Use Types [...] the past 12 months, has t he [employer], gas, oil or water company threatened to [...] immediate release tablet To be sent to: [facility] - [place], [place] - [address] [place] [address] documented in this encounter Plan of Treatment Upcoming Encounters Date Type Department Care Team (Late st Contact Info) Description 04/18/2025 2:15 PM EST Office Visit [facility] MEDICINE 230 [place] [address] Breanna Zamudio ANP 230 [place] [address] 04/26/2025 3:15 PM EST Clinical Support [facility] MED & PEDS 505 [place] [address] Sis Coppola RN [address] [place] [address] documented as of this encounter Goals Goal [...] Weekly blood pressure task No Zayra Thomas [place] Weekly blood pressure task Care Plan Weekly blood pressure task No Zayra Thomas [place] Patient has chronic kidney disease Care Plan Patient has chronic kidney disease No Zayra Thomas [place] Patient has chronic kidney disease Care Plan Patient has chronic kidney disease No Zayra Thomas [place] Weekly blood pressure task Care Plan Weekly blood pressure task No Zayra Thomas PA Weekly blood pressure task Care Plan Weekly blood pressure task No Zayra Thomas PA Patient has chronic kidney disease Care Plan Patient has chronic kidney disease No Zayra Thomas PA Patient has chronic kidney disease Care Plan Patient has chronic kidney disease No Zayra Thomas PA Weekly blood pressure task Care Plan Weekly [...] documented as of this encounter Care Teams Wood Fence Erector Relationship Specialty Start Date End Date Breanna Zamudio ANP [address] [place] [address] PCP - General Family Medicine 10/03/19 Ludmila Walker MD [address] [place] [address] 3rd [place] [address] Gastroenterology 11/22/24 [facility] 07/31/23 documented as of this encounter
--- OUTSIDE RECORDS SUMMARY | 2025-03-13 10:30 | XMS_ITS | Encounter Summary ---
Author Organization [employer] Address [address] [facility] [address] 7t [place] [address] Care Team Providers Care Electronic Typesetting Machine Operator Name Role Phone Breanna Zamudio Primary Care Provider [phone] Ludmila Walker MD Unavailable [phone] Reason for Visit * Reason Onset Date Comments Appointment Request 06/13/2024 Encounter Details Date Type Department Care Team ([facility] st Contact Info) Description 06/13/2024 Telephone [facility] MEDICINE 230 [place], [place] [phone] Breanna Zamudio ANP 230 [place], [place] [phone] Appointment Request Social History Tobacco Use Types [...] 2:32 PM EDT Tc from pt canceled CONTENT DIRECTOR appt due to being on vacation in [place] and would like to r/s after 07/08/24. documented in this encounter Plan of Treatment Upcoming Encounters Date Type Department Care Team (Late st Contact Info) Description 04/18/2025 2:15 PM EST Office Visit [facility] MEDICINE 230 [place] [address] Breanna Zamudio ANP 230 [place] [address] 04/26/2025 3:15 PM EST Clinical Support [facility] MED [facility] PEDS 505 [place] [address] Sis Coppola, AIDA 505 [place] [address] documented as of this encounter Visit Diagnoses Not on filedocumented in this encounter Care Teams Electronic Typesetting Machine Operator Relationship Specialty Start Date End Date Breanna Zamudio ANP [address] [place] [address] PCP - General Family Medicine 10/03/19 Ludmila Walker MD [address] [place] [address] Drive 3rd Floor [place] [address] Gastroenterology 11/22/24 [facility] 07/31/23 documented as of this encounter
--- OUTSIDE RECORDS SUMMARY | 2025-03-13 10:30 | XMS_ITS | Encounter Summary ---
Author Organization [employer] Address [address] [facility] [address] 7t [place] [address] Care Team Providers Care Rural Health Consultant Name Role Phone Breanna Zamudio Primary Care Provider [phone] Ludmila Walker MD Unavailable [phone] Reason for Visit * Reason Onset Date Comments FYI 08/31/2023 Encounter Details Date Type Department Care Team ([facility] st Contact Info) Description 08/31/2023 Telephone [facility] MEDICINE 230 [place], [place] [phone] Breanna Zamudio ANP 230 [place], [place] [phone] FYI Social History Tobacco Use Types Packs/Day [...] Caroline (Physical Therapist) with [facility] [facility] calling to inform pt is getting discharge as of today from PT services. Any questions [phone] documented in this encounter Plan of Treatment Upcoming Encounters Date Type Department Care Team (Late st Contact Info) Description 04/18/2025 2:15 PM EST Office Visit [facility] MEDICINE 230 [place] [address] Breanna Zamudio ANP 230 [place] [address] 04/26/2025 3:15 PM EST Clinical Support [facility] MED & PEDS 505 [place] [address] Sis Coppola, AIDA 505 [place] [address] documented as of this encounter Visit Diagnoses Not on filedocumented in this encounter Care Teams Rural Health Consultant Relationship Specialty Start Date End Date Breanna Zamudio ANP [address] [place] [address] PCP - General Family Medicine 7/20/20 Ludmila Walker MD [address] [place] [address] Drive 3rd [place] [address] Gastroenterology 11/22/24 [facility] 07/31/23 documented as of this encounter
--- OUTSIDE RECORDS SUMMARY | 2025-03-13 10:30 | XMS_ITS | Encounter Summary ---
Author Organization [employer] Address [address] [facility] 7t [place] [address] Care Team Providers Care Business Broker Name Role Phone Breanna Zamudio Primary Care Provider [phone] Ludmila Walker MD Unavailable [phone] Reason for Visit * Reason Comments Med Refill Encounter Details Date Type Department Care Team ([facility] st Contact Info) Description 12/05/2024 Refill [facility] MEDICINE 230 [place], [place] [phone] Breanna Zamudio ANP 230 [place], [place] [phone] Long-term current use of opiate analgesic; Osteoarthritis [...] Description 04/18/2025 2:15 PM EST Office Visit [facility] MEDICINE [address] [place] [address] Breanna Zamudio ANP [address] [place] [address] 04/26/2025 3:15 PM EST Clinical Support [facility] MED & PEDS 505 [place] [address] Sis Coppola, AIDA 505 [place] [address] documented as of this encounter Visit Diagnoses Diagnosis Long-term current use of opiate analgesic Encounter for long-term (current) use of other medications Osteoarthritis of multiple joints, unspecified osteoarthritis type Arthralgia, unspecified joint documented in this encounter Care Teams Business Broker Relationship Specialty Start Date End Date Breanna Zamudio ANP [address] [place] [address] PCP - General Family Medicine 10/03/19 Ludmila Walker MD [address] [place] [address] Drive 3rd [place] [address] Gastroenterology 11/22/24 [facility] 07/31/23 documented as of this encounter
--- OUTSIDE RECORDS SUMMARY | 2025-03-13 10:30 | XMS_ITS | Encounter Summary ---
Author Organization [employer] [facility] Address [address] [place] [address] 7t [place] [address] Care Team Providers Care Food Beverage Manager Name Role Phone Breanna Zamudio Primary Care Provider [phone] Ludmila Walker MD Unavailable [phone] Reason for Visit * Reason Comments Med Refill Encounter Details Date Type Department Care Team (Late st Contact Info) Description 12/02/2022 Refill [facility] MEDICINE [address] [place] [address] Breanna Zamudio ANP 230 [place], [place] [phone] Pain in unspecified joint Social History Tobacco [...] Description 04/18/2025 2:15 PM EST Office Visit [facility] MEDICINE [address] [place] [address] [phone] Breanna Zamudio ANP 230 [place], [place] [phone] 04/26/2025 3:15 PM EST Clinical Support [facility] MED & PEDS [address] [place] [address] Sis Coppola, RN [address] [place] [address] documented as of this encounter Visit Diagnoses Diagnosis Pain in unspecified joint documented in this encounter Care Teams Food Beverage Manager Relationship Specialty Start Date End Date Breanna Zamudio ANP [address] [place] [address] PCP - General Family Medicine 10/03/19 Ludmila Walker MD [address] [place] [address] 3rd [place] [address] Gastroenterology 11/22/24 [facility] 07/31/23 documented as of this encounter
--- OUTSIDE RECORDS SUMMARY | 2025-03-13 10:31 | XMS_ITS | Encounter Summary ---
Author Organization [employer] [facility] Address [address] [place] [address] 7t [place] [address] Care Team Providers Care Sand Hauler Name Role Phone Breanna Zamudio Primary Care Provider [phone] Ludmila Walker MD Unavailable [phone] Reason for Visit * Reason Comments Med Refill Encounter Details Date Type Department Care Team (Late st Contact Info) Description 11/21/2022 Refill [facility] MEDICINE [address] [place] [address] Breanna Zamudio ANP 230 [place], [place] [phone] Pain in unspecified joint Social History Tobacco [...] Description 04/18/2025 2:15 PM EST Office Visit [facility] MEDICINE [address] [place] [phone] Breanna Zamudio ANP 230 [place], [place] [phone] 04/26/2025 3:15 PM EST Clinical Support [facility] MED & PEDS [address] [place] [address] Sis Coppola, RN [address] [place] [address] documented as of this encounter Visit Diagnoses Diagnosis Pain in unspecified joint documented in this encounter Care Teams Sand Hauler Relationship Specialty Start Date End Date Breanna Zamudio ANP [address] [place] [address] PCP - General Family Medicine 10/03/19 Ludmila Walker MD [address] [place] [address] 3rd [place] [address] Gastroenterology 11/22/24 [facility] 07/31/23 documented as of this encounter
--- OUTSIDE RECORDS SUMMARY | 2025-03-13 10:31 | XMS_ITS | Encounter Summary ---
Author Organization [employer] Address [address] [facility] [address] 7t [place] [address] Care Team Providers Care Wet Machine Tender Name Role Phone Breanna Zamudio Primary Care Provider [phone] Ludmila Walker MD Unavailable [phone] Reason for Visit * Reason Onset Date Comments Appointment Request 07/08/2024 Encounter Details Date Type Department Care Team ([facility] st Contact Info) Description 07/08/2024 Telephone [facility] MEDICINE 230 [place], [place] [phone] Breanna Zamudio ANP 230 [place], [place] [phone] Appointment Request Social History Tobacco Use Types [...] appt from 06/14/24. Pt is leaving to [place] on 07/09/24 at around 2 pm but pt was only given half of the pack for the Oxy and Spouse would like to see if anything can be done so that pt gets her full medication. Contact pt Spouse at [phone] documented in this encounter Plan of Treatment Upcoming Encounters Date Type Department Care Team (Late st Contact Info) Description 04/18/2025 2:15 PM EST Office Visit [facility] MEDICINE 230 [place] [address] Breanna Zamudio ANP 230 [place] [address] 04/26/2025 3:15 PM EST Clinical Support [facility] MED & PEDS 505 [place] [address] iSs Coppola, RN 505 [place] [address] documented as of this encounter Visit Diagnoses Not on filedocumented in this encounter Care Teams Wet Machine Tender Relationship Specialty Start Date End Date Breanna Zamudio ANP [address] [place] [address] PCP - General Family Medicine 10/03/19 Ludmila Walker MD [address] [place] [address] 3rd [place] [address] Gastroenterology 11/22/24 [facility] 07/31/23 documented as of this encounter
--- OUTSIDE RECORDS SUMMARY | 2025-03-13 10:31 | XMS_ITS | Encounter Summary ---
Author Organization [employer] Address [address] [facility] [address] 7t [place] [address] Care Team Providers Care Esthetician/Spa Coordinator Name Role Phone Breanna Zamudio Primary Care Provider [phone] Ludmila Walker MD Unavailable [phone] Reason for Visit * Reason Onset Date Comments Med Refill 02/27/2023 Encounter Details Date Type Department Care Team (Late st Contact Info) Description 02/27/2023 Telephone [facility] MEDICINE 230 [place], [place] [phone] Breanna Zamudio ANP 230 [place], [place] [phone] Med Refill Social History Tobacco Use Types [...] Description 04/18/2025 2:15 PM EST Office Visit [facility] MEDICINE 230 [place] [address] Breanna Zamudio ANP 230 [place] [address] 04/26/2025 3:15 PM EST Clinical Support [facility] MED [facility] PEDS 505 [place] [address] Sis Coppola, RN 505 [place] [address] documented as of this encounter Visit Diagnoses Not on filedocumented in this encounter Care Teams Esthetician/Spa Coordinator Relationship Specialty Start Date End Date Breanna Zamudio ANP [address] [place] [address] PCP - General Family Medicine 10/03/19 Ludmila Walker MD [address] [place] [address] 3rd [place] [address] Gastroenterology 11/22/24 [facility] 07/31/23 documented as of this encounter
== END 2025-03-13 09:48 | disposition home or self-care (01) ==
LOC: HO.MRI 09:47
PROVIDERS: PCP Nurse Practitioner Primary Care; Visit Provider Internal Medicine Gastroenterology
DX: R10.11 Right upper quadrant pain (principal); F40.240 Claustrophobia; Z53.09 Procedure and treatment not carried out because of other contraindication
CPT/HCPCS: 74181

== ENCOUNTER → 2025-03-13 09:59 | Outpatient (BNV) | payer OTHER, SELFPAY | PROVIDERS: PCP Nurse Practitioner Primary Care; Visit Provider Radiology Diagnostic Radiology | DX: R10.11 Right upper quadrant pain (principal) | CPT/HCPCS: 74181 ==